=== PATIENT | male | born 1955 | race Caucasian/White ===

== ENCOUNTER 2017-07-21 14:12 | Emergency (ER) | payer OTHER ==
[2017-07-21 14:22] VITALS: TEMP 97.9; BMI 29.0
--- NOTE | 2017-07-21 16:39 | PDOC ---
History of Present Illness - General Chief Complaint: Wound Stated Complaint: Wound Infection Time Seen by Provider: 07/21/17 16:33 - History of Present Illness Initial Comments: 07/21/17 17:24 The patient is a 61 year old male with a history of HTN, asthma, DM, PVD, who presents for evaluation of an infected diabetic foot ulcer. The patient was referred from the wound clinic for admission for IV antibiotics. The patient reports having a non-healing ulcer for over 1 month on the bottom of his left foot for which he has been followed by the wound clinic. He has been on augmentin for treatment without improvement in his symptoms. He endorses subjective fevers and chills 1 day ago. He states that he received a call from the wound clinic telling him to present to the ED for admission today. He had a wound culture done on 07/07 which demonstrated MRSA. He denies SOB, chest pain , nausea, vomiting, abdominal pain, or changes with urination or bowel movements. Past History - Past Medical History Allergies/Adverse Reactions: Allergies Allergy/AdvReac Type Severity Reaction Status Date / Time No Known Allergies Allergy Verified 07/21/17 14:19 Home Medications: Ambulatory Orders Albuterol Sulfate Inhaler - [Ventolin HFA Inhaler -] 2 puff PO QID PRN 06/07/15 Aspirin [Aspirin EC] 81 mg PO DAILY 06/07/15 Enalapril Maleate [Vasotec -] 20 mg PO DAILY 06/07/15 Gemfibrozil 600 mg PO BID 06/07/15 Insulin Glargine,Hum.rec.anlog [Lantus (10mL VIAL) -] 40 unit SQ HS 06/07/15 Metformin HCl 1,000 mg PO BID 06/07/15 Salmeterol/Fluticasone [Advair 100Mcg/50Mcg -] 1 puff PO BID 06/07/15 Sertraline HCl 50 mg PO DAILY 06/07/15 Acetaminophen [Tylenol .Regular Strength -] 650 mg PO Q6H PRN #0 tablet Methadone [Dolophine -] 70 mg PO DAILY 01/30/16 Collagenase Clostridium Hist. [Santyl] 1 applic TP DAILY #90 oint...g. 01/22/17 Amox-Tr/K Cl [Augmentin - 875Mg Tablet] 1 tab PO BID #14 tablet 07/07/17 Amoxicillin/Potassium Clav [Augmentin 875-125 Tablet] 1 each PO DAILY #7 tablet MDD 1 07/14/17 Anemia: Yes Asthma: Yes Diabetes: Yes GI Disorders: Yes (hep c) HTN: Yes Hypercholesterolemia: Yes - Suicide/Smoking/Psychosocial Hx Smoking History: Former smoker Have you smoked in the past 12 months: No If you are a former smoker, when did you quit?: 1996 Information on smoking cessation initiated: No Hx Alcohol Use: No Drug/Substance Use Hx: No Substance Use Type: None Hx Substance Use Treatment: No Review of Systems - Review of Systems Comments:: 07/21/17 17:34 Constitutional: Fevers, Chills. No fatigue, malaise HEENT: No Rhinorrhea, nasal congestion, visual changes Cardiovascular: No chest pain, syncope, palpitations, lightheadedness Respiratory: No Cough, SOB, Hemoptysis, Gastrointestinal: No Abdominal pain, Nausea, Vomiting, Constipation, Diarrhea, Melena Genitourinary: No Dysuria, Frequency, Urgency, Hesitancy, Hematuria, Flank pain Musculoskeletal: No Myalgia, arthralgia Skin: No rashes, bruising, pallor Neurologic: No Headache, Dizziness, Numbness, Weakness, or Tingling *Physical Exam - Vital Signs Last Vital Signs Temp Pulse Resp BP Pulse Ox 97.9 F 102 H 18 148/99 99 07/21/17 14:18 07/21/17 14:18 07/21/17 14:18 07/21/17 14:18 07/21/17 14:18 - Physical Exam Comments: 07/21/17 17:34 General Appearance: Nourished. No Apparent Distress HEENT: EOMI, [place]. No Pharyngeal Erythema, Tonsillar Exudate, Tonsillar Erythema Neck: No Cervical Lymphadenopathy Respiratory/Chest: Lungs Clear, Normal Breath Sounds. No Crackles, Rales, Rhonchi, Wheezing Cardiovascular: Regular Rhythm, Regular Rate. No Murmur, Gallops, Rubs Gastrointestinal/Abdominal: Normal Bowel Sounds, Soft. No Guarding, Rebound, Tenderness Musculoskeletal: No CVA Tenderness Extremity: 2cm ulcer to the bottom of the left foot with purulent drainage. Normal Capillary Refill Integumentary: Normal Color, Dry, Warm Neurologic: Fully Oriented, Alert, Normal Mood/Affect, Normal Response, ED Treatment Course - LABORATORY CBC & Chemistry Diagram: 07/21/17 17:30 07/21/17 17:30 Medical Decision Making - Medical Decision Making 07/21/17 17:35 The patient is a 61 year old male with a history of HTN, asthma, DM, PVD, who presents for evaluation of an infected diabetic foot ulcer. Given his long disease course with a non-healing diabetic foot ulcer despite antibiotic treatment, we will obtain cbc, cmp, lactate, troponin, and blood cultures as well as a chest plain film to evaluate for worsening infection. We will consult with Dr. Nguyễn per wound clinic's request and proceed with admission for iv antibiotic treatment. The patient voiced understanding and is agreeable with the plan. We will continue to monitor and reassess. We discussed the case with Dr. Nguyễn who will provide his recommendations on antibiotic treatment. 07/21/17 19:33 We discussed the case with Dr. Jett who agreed to accept the patient for IV antibiotics. *DC/Admit/Observation/Transfer Diagnosis at time of Disposition: Infected open wound - Discharge Dispostion Condition at time of disposition: Guarded Admit: Yes
--- NOTE | 2017-07-21 16:55 | PDOC ---
Attending Attestation - Resident Resident Name: José Miguel Bauer - ED Attending Attestation I have performed the following: I have examined & evaluated the patient, The case was reviewed & discussed with the resident, I agree w/resident's findings & plan, Exceptions are as noted - HPI HPI: 07/21/17 16:50 61 yo diabetic male, failed outpatient therapy for infected foot, sent from wound clinic by Dr. Herbert for admission and he would like consult with Infectious Disease, Dr. Nguyễn - Physicial Exam PE: 07/21/17 16:52 VSS NAD 07/21/17 16:54 - Medical Decision Making 07/21/17 16:[address] Bauer Assessment and Plan 07/21/17 16:54
[2017-07-21 17:43] LABS: BASOPHIL 0.6 % (0-2.0); MCH 26.8 pg (25.7-33.7); MCHC 33.6 g/dl (32.0-35.9); MEAN CELL VOLUME 79.8 fl (80-96); MEAN PLT VOLUME 6.8 fl (7.5-11.1); NEUTROPHILS 55.9 % (42.8-82.8); PLATELET COUNT 441 K/MM3 (134-434); RDW 13.6 % (11.9-15.9); WHITE BLOOD COUNT 9.4 K/mm3 (4.0-10.0)
[2017-07-21 18:10] LABS: INR 1.24 (0.82-1.09)
[2017-07-21 18:13] LABS: ACTIVATED PTT 31.2 SECONDS (26.9-34.4)
[2017-07-21 18:18] LABS: ALBUMIN 2.5 g/dl (3.4-5.0); ALK PHOS 89 U/L (45-117); ANION GAP 9 (8-16); BILIRUBIN,TOTAL 0.2 mg/dL (0.2-1.0); CALCIUM 9.2 mg/dL (8.5-10.1); CO2 25 mmol/L (21-32); CPK 31 IU/L (39-308); GLUCOSE,RANDOM 285 mg/dL (74-106); SGOT/AST 12 U/L (15-37); SGPT/ALT 22 U/L (12-78); TOT PROT 7.9 g/dl (6.4-8.2)
[2017-07-21 18:20] LABS: TROPONIN I < 0.02 ng/ml (0.00-0.05)
[2017-07-21] MEDS ORDERED: ACETAMINOPHEN 325 MG TABLET (FP) PO PRN (19:34)
[2017-07-21] MEDS ORDERED: DOCUSATE SODIUM 100 MG CAPSULE (FP) PO PRN (19:34)
--- NOTE | 2017-07-21 19:34 | PN ---
Teaching Attending Note Name of Resident: Quinn Zafar ATTENDING PHYSICIAN STATEMENT I saw and evaluated the patient. I reviewed the resident's note and discussed the case with the resident. I agree with the resident's findings and plan as documented. SUBJECTIVE: 61 year old male with long standing history of non healing diabetic Left foot ulcer managed in wound care center , s/p recent debridement on 07/16 , s/p course of PO Augmentin now presents c/o pain in LLE. Pain is 7/10 and worse during ambulation. He was referred for hospitalization by system specialist. Prior medical records are reviewed and reveal recent imaging studies( ) of L foot suggestive of osteomyelitis 2nd metatarsal bone. Wound cultures are growing MRSA OBJECTIVE: Vital Signs Temperature 97.9 F 07/21/17 14:18 Pulse Rate 102 H 07/21/17 14:18 Respiratory Rate 18 07/21/17 14:18 Blood Pressure 148/99 07/21/17 14:18 O2 Sat by Pulse Oximetry (%) 99 07/21/17 14:18 2cm diameter ulcer on plantar aspect of left foot right below 3rd toe. No drainage Tenderness to palpation of Left foot R foot 5th toe amputated CBC, BMP 07/21/17 17:30 07/21/17 17:30 Home Medication List Medication Instructions Recorded Confirmed Type Albuterol Sulfate Inhaler - 2 puff PO QID PRN 06/07/15 07/09/17 History [Ventolin HFA Inhaler -] Aspirin [Aspirin EC] Augmentin 81 mg PO DAILY 06/07/15 07/09/17 History Enalapril Maleate [Vasotec -] 20 mg PO DAILY 06/07/15 07/09/17 History Gemfibrozil 600 mg PO BID 06/07/15 07/09/17 History Insulin Glargine,Hum.rec.anlog 40 unit SQ HS 06/07/15 07/09/17 History [Lantus (10mL VIAL) -] Metformin HCl 1,000 mg PO BID 06/07/15 07/09/17 History Salmeterol/Fluticasone [Advair 1 puff PO BID 06/07/15 07/09/17 History 100Mcg/50Mcg -] Sertraline HCl 50 mg PO DAILY 06/07/15 07/09/17 History Methadone [Dolophine -] 70 mg PO DAILY 01/30/16 07/09/17 History ASSESSMENT AND PLAN: 1. Left foot osteomyelitis 2/2 MRSA- failure of outpatient antibiotic therapy , need for parenteral regimen. - IV Vancomycin - PICC line ' - monitor renal function and adjust dose based on cr clearance - MRSA isolation - needs better DM control 2. Uncontrolled DM - - Start Lantus - insulin SS - calculate 24 insulin requirement and adjust the dose - diabetic diet 3. DVT PPX - heparin SC
[2017-07-21] MEDS ORDERED: SODIUM CHLORIDE 1,000 ML IV SCH (19:45)
[2017-07-21] MEDS ORDERED: VANCOMYCIN 1,250 MG in DEXTROSE 5%-WATER - 250 ML IVPB ONE (19:54)
[2017-07-21] MEDS ORDERED: ALBUTEROL SO4 18 GM HFA INHALER IH PRN (20:02)
[2017-07-21] MEDS ORDERED: PICC LINE 8 ML FLUSH PROTOCOL IVPUSH PRN (20:16)
[2017-07-21 20:47] LABS: URINE APPEARANCE SLCLOUDY; URINE BILIRUBIN NEGATIVE (NEGATIVE); URINE BLOOD 1+ (NEGATIVE); URINE COLOR YELLOW; URINE GLUCOSE (UA) NEGATIVE (NEGATIVE); URINE KETONE NEGATIVE (NEGATIVE); URINE NITRITE NEGATIVE (NEGATIVE); URINE UROBILINOGEN NEGATIVE mg/dL (0.2-1.0)
[2017-07-21 20:54] LABS: URINE PROTEIN 3+ (NEGATIVE)
[2017-07-21 21:17] LABS: URINE BACTERIA RARE /hpf (NONE SEEN); URINE HYALINE CAST 20 /lpf; URINE MUCUS RARE; URINE RBC 11 /hpf (0-3); URINE WBC 8 /hpf (3-5)
[2017-07-21] MEDS ORDERED: GEMFIBROZIL 600 MG TABLET (FP) PO SCH (22:00)
[2017-07-21] MEDS ORDERED: INSULIN DETEMIR 100 UNITS/ML MDV SQ SCH (22:00)
[2017-07-21] MEDS ORDERED: INSULIN GLARGINE HUM REC ANLOG 40 UNIT SQ SCH (22:00)
[2017-07-21] MEDS: FLUTICASONE/SALMETEROL 100 MCG/50 MCG DISKUS IH SCH (22:11)
[2017-07-21] MEDS: INSULIN SLIDING SCALE (NOVOLOG) 1 VIAL SQ SCH (22:12)
--- NOTE | 2017-07-21 22:20 | HP ---
CHIEF COMPLAINT:Sent from wound care clinic for osteomyelitis PCP:Cece Walden HISTORY OF PRESENT ILLNESS: 61M PMH of history of HTN, HLD, DM, PVD, and diabetic foot ulcer presents to the ED, sent from wound care clinic for osteomyelitis of his LLE. Patient has had a non healing ulcer on the plantar aspect of his LLE and has been treated with IV Abx by Dr. Nguyễn in the past. Patient was recently seen on 07/14/17 in podiatry clinic and had the wound debrided. He was then sent for an MRI of the LLE to evaluate the foot for osteomyelitis which was noted to be positive for osteomyeltitis in the second toe and possible the third toe as well. When the results were received by the clinic he was advised to come to the ER given the findings and the history of chills for IV Abx and PICC placement for termite control servicer Abx. The patient reports having a non-healing ulcer for over 1 month on the bottom of his left foot for which he has been followed by the wound clinic. He has been on augmentin for treatment without improvement in his symptoms. He endorses subjective fevers and chills 1 day ago. Per patient he had a Tmax of 100.1. He had a wound culture done on 07/07 which demonstrated MRSA. He denies SOB, chest pain, nausea, vomiting, abdominal pain, or changes with urination or bowel movements. He states he has not been following a diabetic diet and his blood sugars have not been well controlled. ER course was notable for: (1)Labs (2)Abx Recent Travel:Denies PAST MEDICAL HISTORY: Anemia Asthma PVD Diabetic foot ulcer Diabetes Hepatitis C treated with harvoni HTN HLD PAST SURGICAL HISTORY: Amputation right fifth toe Social History: Smoking:Former smoker quit over 20 years ago Alcohol:Denies Drugs: History of opioid abuse now on methadone Family History:Mother has asthma and HTN Allergies No Known Allergies Allergy (Verified 07/21/17 14:19) HOME MEDICATIONS: Home Medications Medication Instructions Recorded Albuterol Sulfate Inhaler - 2 puff PO QID PRN 06/07/15 [Ventolin HFA Inhaler -] Aspirin [Aspirin EC] 81 mg PO DAILY 06/07/15 Enalapril Maleate [Vasotec -] 20 mg PO DAILY 06/07/15 Gemfibrozil 600 mg PO BID 06/07/15 Insulin Glargine,Hum.rec.anlog 40 unit SQ HS 06/07/15 [Lantus (10mL VIAL) -] Metformin HCl 1,000 mg PO BID 06/07/15 Salmeterol/Fluticasone [Advair 1 puff PO BID 06/07/15 100Mcg/50Mcg -] Sertraline HCl 50 mg PO DAILY 06/07/15 Acetaminophen [Tylenol .Regular 650 mg PO Q6H PRN #0 tablet 06/14/15 Strength -] Methadone [Dolophine -] 70 mg PO DAILY 01/30/16 Collagenase Clostridium Hist. 1 applic TP DAILY #90 oint...g. 01/22/17 [Santyl] Amox-Tr/K Cl [Augmentin - 875Mg 1 tab PO BID #14 tablet 07/07/17 Tablet] Amoxicillin/Potassium Clav 1 each PO DAILY #7 tablet MDD 1 07/14/17 [Augmentin 875-125 Tablet] REVIEW OF SYSTEMS CONSTITUTIONAL: Absent: diaphoresis, generalized weakness, malaise, loss of appetite, weight change Present: fever, chills HEENT: Absent: rhinorrhea, nasal congestion, throat pain, throat swelling, difficulty swallowing, mouth swelling, ear pain, eye pain, visual changes CARDIOVASCULAR: Absent: chest pain, syncope, palpitations, irregular heart rate, lightheadedness , peripheral edema RESPIRATORY: Absent: cough, shortness of breath, dyspnea with exertion, orthopnea, wheezing, stridor, hemoptysis GASTROINTESTINAL: Absent: abdominal pain, abdominal distension, nausea, vomiting, diarrhea, constipation, melena, hematochezia GENITOURINARY: Absent: dysuria, frequency, urgency, hesitancy, hematuria, flank pain, genital pain MUSCULOSKELETAL: Absent: myalgia, arthralgia, joint swelling, back pain, neck pain SKIN: Absent: rash, itching, pallor Present: Chronic lower extremity wounds. HEMATOLOGIC/IMMUNOLOGIC: Absent: easy bleeding, easy bruising, lymphadenopathy, frequent infections ENDOCRINE: Absent: unexplained weight gain, unexplained weight loss, heat intolerance, cold intolerance NEUROLOGIC: Absent: headache, focal weakness or paresthesias, dizziness, unsteady gait, seizure, mental status changes, bladder or bowel incontinence PSYCHIATRIC: Absent: anxiety, depression, suicidal or homicidal ideation, hallucinations. PHYSICAL EXAMINATION Vital Signs - 24 hr 07/21/17 14:18 Temperature 97.9 F Pulse Rate 102 H Respiratory 18 Rate Blood Pressure 148/99 O2 Sat by Pulse 99 Oximetry (%) GENERAL: Awake, alert, and fully oriented, in no acute distress. HEAD: Normal with no signs of trauma. EARS, NOSE, THROAT: Moist mucous membranes. LUNGS: Breath sounds equal, clear to auscultation bilaterally. No wheezes, and no crackles HEART: Regular rate and rhythm, normal S1 and S2 without murmur ABDOMEN: Soft, nontender, not distended, normoactive bowel sounds, no guarding, no rebound MUSCULOSKELETAL: Normal range of motion at all joints. No CVA tenderness. UPPER EXTREMITIES: warm, well-perfused. No peripheral edema. LOWER EXTREMITIES: 1+ DP pulses, warm, Delayed capillary refill bilaterally well -perfused. No calf tenderness. Chronic venous stasis changes. On plantar surface of LLE there is a [id number] wound without induration fluctuance or erythema. No drainage NEUROLOGICAL: Cranial nerves II-XII intact. Normal speech PSYCHIATRIC: Cooperative. Good eye contact. Appropriate mood and affect. Laboratory Results - last 24 hr 07/21/17 07/21/17 07/21/17 17:30 17:30 17:30 WBC 9.4 RBC 4.77 Hgb 12.8 D Hct 38.1 MCV 79.8 L MCH 26.8 MCHC 33.6 RDW 13.6 Plt Count 441 H D MPV 6.8 L Neutrophils % 55.9 Lymphocytes % 36.4 D Monocytes % 5.1 Eosinophils % 2.0 Basophils % 0.6 PT with INR 14.00 H INR 1.24 H PTT (Actin FS) 31.2 Sodium 131 L Potassium 4.6 Chloride 97 L Carbon Dioxide 25 Anion Gap 9 BUN 24 H D Creatinine 1.0 D Creat Clearance w eGFR > 60 Random Glucose 285 H D Lactic Acid Calcium 9.2 Total Bilirubin 0.2 D AST 12 L D ALT 22 D Alkaline Phosphatase 89 D Creatine Kinase 31 L Troponin I < 0.02 D Total Protein 7.9 Albumin 2.5 L Urine Color Urine Appearance Urine pH Urine Protein Urine Glucose (UA) Urine Ketones Urine Blood Urine Nitrite Urine Bilirubin Urine Urobilinogen Urine RBC Urine WBC Ur Epithelial Cells Urine Bacteria Hyaline Casts Urine Mucus Blood Type Antibody Screen 07/21/17 07/21/17 07/21/17 17:30 17:30 20:22 WBC RBC Hgb Hct MCV MCH MCHC RDW Plt Count MPV Neutrophils % Lymphocytes % Monocytes % Eosinophils % Basophils % PT with INR INR PTT (Actin FS) Sodium Potassium Chloride Carbon Dioxide Anion Gap BUN Creatinine Creat Clearance w eGFR Random Glucose Lactic Acid 1.1 Calcium Total Bilirubin AST ALT Alkaline Phosphatase Creatine Kinase Troponin I Total Protein Albumin Urine Color Yellow Urine Appearance Slcloudy Urine pH 5.0 Urine Protein 3+ H Urine Glucose (UA) Negative Urine Ketones Negative Urine Blood 1+ H Urine Nitrite Negative Urine Bilirubin Negative Urine Urobilinogen Negative Urine RBC 11 Urine WBC 8 Ur Epithelial Cells Rare Urine Bacteria Rare Hyaline Casts 20 Urine Mucus Rare Blood Type A POSITIVE Antibody Screen Negative LEFT FOOT MRI: 1. Soft tissue edema of the second toe, open wound along the plantar aspect of the foot at the level of the second metatarsal phalangeal joint, and fluid along the plantar aspect of the second metatarsal head. 2. Bone marrow edema of the mid to distal second metatarsal, the proximal phalanx of the second toe , and the middle phalanx of the second toe. These findings in the setting of infection are most consistent with osteomyelitis. 3. Dorsal subluxation of the second toe proximal phalanx. 4. Question of faint bone marrow edema of the plantar aspect of the third metatarsal and proximal phalanx which is nonspecific however early osteomyelitis cannot be excluded. ASSESSMENT/PLAN: 61M with multiple medical problems presents to the ED from wound care clinic with osteomyelitis. Osteomyelitis/diabetic foot ulcer/PVD: with recent culture for MRSA ID consult IR consult for PICC Given Vancomycin in ED Consider podiatry and/or vascular consult Patient counselled that without diet and controlling his blood sugars he is at risk for complications such as but not limited to renal failure requiring dialysis, limb loss, visions loss DM: Insulin sliding scale Fingersticks ACHS hold metformin restart long acting Patient counselled that without diet and controlling his blood sugars he is at risk for complications such as but not limited to renal failure requiring dialysis, limb loss, visions loss History if anemia: Not currently active at this time outpatient follow up Hepatitis C: Treated with harvoni outpatient follow up HTN: restart lisinopril HLD: restart gemfibrozil Asthma: not currently active albuterol inhaler PRN History of opioid abuse: Continue methadone 70mg po daily FEN: No IVF no electrolyte abnormalities Diabetic diet PPx: HSQ/SCDs no GI PPx indicated ambulating Case discussed with attending Dr. Jett Visit type - Emergency Visit Emergency Visit: Yes Care time: The patient presented to the Emergency Department on the above date and was hospitalized for further evaluation of their emergent condition. - New Patient This patient is new to me today: Yes Date on this admission: 07/21/17 - Critical Care Critical Care patient: No
[2017-07-21 22:28] LABS: URINE LEUK ESTERASE Negative (NEGATIVE)
[2017-07-22 06:31] LABS: MCH 26.9 pg (25.7-33.7); MCHC 33.5 g/dl (32.0-35.9); MEAN CELL VOLUME 80.3 fl (80-96); MEAN PLT VOLUME 7.1 fl (7.5-11.1); PLATELET COUNT 353 K/MM3 (134-434); RDW 13.5 % (11.9-15.9); WHITE BLOOD COUNT 8.8 K/mm3 (4.0-10.0)
[2017-07-22] MEDS ORDERED: HEPARIN NA (PORCINE) 5,000 UNITS/ML 1ML VIAL ONE (06:38)
[2017-07-22 06:54] LABS: ALBUMIN 2.2 g/dl (3.4-5.0); ALK PHOS 71 U/L (45-117); ANION GAP 10 (8-16); BILIRUBIN,TOTAL 0.2 mg/dL (0.2-1.0); CALCIUM 8.6 mg/dL (8.5-10.1); CO2 27 mmol/L (21-32); GLUCOSE,RANDOM 190 mg/dL (74-106); MAGNESIUM 1.3 mg/dL (1.8-2.4); PHOSPHOROUS 4.3 mg/dL (2.5-4.9); SGOT/AST 13 U/L (15-37); SGPT/ALT 18 U/L (12-78); TOT PROT 6.6 g/dl (6.4-8.2)
[2017-07-22] MEDS: INSULIN SLIDING SCALE (NOVOLOG) 1 VIAL SQ SCH ×2 (06:55→12:52)
[2017-07-22] MEDS ORDERED: GEMFIBROZIL 600 MG TABLET (FP) PO SCH (07:00)
[2017-07-22] MEDS: HEPARIN NA (PORCINE) 5,000 UNITS/ML 1ML VIAL SQ SCH ×2 (07:03→14:17)
[2017-07-22] MEDS ORDERED: METHADONE HCL 40 MG DISPERSABLE TABLET PO SCH (10:00)
[2017-07-22] MEDS ORDERED: ENALAPRIL MALEATE 10 MG TABLET (FP) PO SCH (10:00)
[2017-07-22] MEDS ORDERED: SERTRALINE HCL 25 MG TABLET (FP) PO SCH (10:00)
[2017-07-22] MEDS ORDERED: ASPIRIN COATED 81 MG TABLET.EC PO SCH (10:00)
[2017-07-22] MEDS ORDERED: COLLAGENASE CLOSTRIDIUM HIST. 30 GRAMS TUBE TP SCH (10:00)
[2017-07-22] MEDS ORDERED: PATIENT'S OWN MEDICATION (NON-FORMULARY) (Enalapril Maleate [Vasotec -] 20 MG) PO SCH (10:00)
[2017-07-22] MEDS: FLUTICASONE/SALMETEROL 100 MCG/50 MCG DISKUS IH SCH (12:53)
--- NOTE | 2017-07-22 12:57 | DS ---
Physical Exam: SUBJECTIVE: Patient seen and examined at bedside. He denies any fever, chills, N /V/D/C. OBJECTIVE: Vital Signs Period Temp Pulse Resp BP Sys/Andre Pulse Ox Last 24 Hr 97.9 F 81-89 18-20 127-136/77-82 96-99 PHYSICAL EXAM GENERAL: The patient is awake, alert, and fully oriented, in no acute distress. HEAD: Normal with no signs of trauma. EYES: PERRL, extraocular movements intact, sclera anicteric, conjunctiva clear. ENT: Ears normal, nares patent, oropharynx clear without exudates, moist mucous membranes. NECK: Trachea midline, full range of motion, supple. LUNGS: Breath sounds equal, clear to auscultation bilaterally, no wheezes, no crackles, no accessory muscle use. HEART: Regular rate and rhythm, S1, S2 without murmur, rub or gallop. ABDOMEN: Soft, nontender, nondistended, normoactive bowel sounds, no guarding, no rebound, no hepatosplenomegaly, no masses. EXTREMITIES: warm, well-perfused, no edema. Diabetic callus ulcer on the bottom of left foot, with second toe amputation. NEUROLOGICAL: good mentation, SKIN: Warm, dry, no rashes or lesions noted. LABS Laboratory Results - last 24 hr 07/21/17 07/22/17 07/22/17 20:22 05:35 05:35 WBC 8.8 RBC 4.27 Hgb 11.5 L D Hct 34.3 L MCV 80.3 MCH 26.9 MCHC 33.5 RDW 13.5 Plt Count 353 MPV 7.1 L Sodium 136 Potassium 4.4 Chloride 99 Carbon Dioxide 27 Anion Gap 10 BUN 25 H Creatinine 1.0 Creat Clearance w eGFR > 60 POC Glucometer Random Glucose 190 H D Calcium 8.6 Phosphorus 4.3 D Magnesium 1.3 L D Total Bilirubin 0.2 AST 13 L ALT 18 Alkaline Phosphatase 71 D Total Protein 6.6 Albumin 2.2 L Urine Color Yellow Urine Appearance Slcloudy Urine pH 5.0 Ur Specific [place] 1.025 Urine Protein 3+ H Urine Glucose (UA) Negative Urine Ketones Negative Urine Blood 1+ H Urine Nitrite Negative Urine Bilirubin Negative Urine Urobilinogen Negative Ur Leukocyte Esterase Negative Urine RBC 11 Urine WBC 8 Ur Epithelial Cells Rare Urine Bacteria Rare Hyaline Casts 20 Urine Mucus Rare 07/22/17 06:45 WBC RBC Hgb Hct MCV MCH MCHC RDW Plt Count MPV Sodium Potassium Chloride Carbon Dioxide Anion Gap BUN Creatinine Creat Clearance w eGFR POC Glucometer [phone] Random Glucose Calcium Phosphorus Magnesium Total Bilirubin AST ALT Alkaline Phosphatase Total Protein Albumin Urine Color Urine Appearance Urine pH Ur Specific [place] Urine Protein Urine Glucose (UA) Urine Ketones Urine Blood Urine Nitrite Urine Bilirubin Urine Urobilinogen Ur Leukocyte Esterase Urine RBC Urine WBC Ur Epithelial Cells Urine Bacteria Hyaline Casts Urine Mucus HOSPITAL COURSE: Date of Admission:07/21/17 Date of Discharge: 07/22/17 61M with multiple medical problems presents to the ED from wound care clinic with osteomyelitis. #Left foot osteomyelitis 2/2 MRSA- failure of outpatient antibiotic therapy , need for parenteral regimen. - IV Vancomycin - PICC line ' - monitor renal function and adjust dose based on cr clearance - MRSA isolation - needs better DM control # Uncontrolled DM - - Start Lantus - insulin SS - calculate 24 insulin requirement and adjust the dose - diabetic diet # DVT PPX - heparin SC Minutes to complete discharge: 30 Discharge Summary Reason For Visit: INFECTED OPEN WOUND Current Active Problems Infected open wound (Acute) Condition: Stable - Instructions Diet, Activity, Other Instructions: You have been admitted to the hospital due to foot diabetic ulcer after failed treatment as out patient . You might develop an infection in the bone You have been treated with intravenous antibiotic her inpatient . PICC line has been placed, you will be discharged home. you will come to the infusion center to receive the intravenous antibiotics as prescribed 5 weeks total. Please follow with your primary care physician within a week. You will need weekly lab draws while on iv antibiotics. CBC/BMP/ESR/CRP Please follow with infectious disease doctor Sarkis within a week. Please follow up with your specification manager within a week. Please keep the ulcer dry and clean. Please avoid any pressure or weight bearing on the ulcer. Please follow strict diabetic diet. Please take your diabetes medicine as prescribed to avoid any further complication. Please if you develop any fever, chills , or your symptoms worsen you can return to emergency room. Referrals: Ralph Nguyễn MD [Staff Physician] - Thomas Stoddard MD [Primary Care Provider] - 1 Week Disposition: HOME - Home Medications Comprehensive Discharge Medication List: Ambulatory Orders Albuterol Sulfate Inhaler - [Ventolin HFA Inhaler -] 2 puff PO QID PRN 06/07/15 Aspirin [Aspirin EC] 81 mg PO DAILY 06/07/15 Enalapril Maleate [Vasotec -] 20 mg PO DAILY 06/07/15 Gemfibrozil 600 mg PO BID 06/07/15 Insulin Glargine,Hum.rec.anlog [Lantus (10mL VIAL) -] 40 unit SQ HS 06/07/15 Metformin HCl 1,000 mg PO BID 06/07/15 Salmeterol/Fluticasone [Advair 100Mcg/50Mcg -] 1 puff PO BID 06/07/15 Sertraline HCl 50 mg PO DAILY 06/07/15 Acetaminophen [Tylenol .Regular Strength -] 650 mg PO Q6H PRN #0 tablet Methadone [Dolophine -] 70 mg PO DAILY 01/30/16 Collagenase Clostridium Hist. [Santyl] 1 applic TP DAILY #90 oint...g. 01/22/17 Amox-Tr/K Cl [Augmentin - 875Mg Tablet] 1 tab PO BID #14 tablet 07/07/17 Amoxicillin/Potassium Clav [Augmentin 875-125 Tablet] 1 each PO DAILY #7 tablet MDD 1 07/14/17 This patient is new to me today: Yes Date on this admission: 07/22/17 Emergency Visit: Yes ED Registration Date: 07/21/17 Care time: The patient presented to the Emergency Department on the above date and was hospitalized for further evaluation of their emergent condition. Critical Care patient: No - Discharge Referral Referred to [facility] No
--- NOTE | 2017-07-22 13:06 | EKG ---
Test Reason : Blood Pressure : / mmHG Vent. Rate : 075 BPM Atrial Rate : 075 BPM P-R Int : 156 ms QRS Dur : 074 ms QT Int : 390 ms P-R-T Axes : 062 027 059 degrees QTc Int : 435 ms NORMAL SINUS RHYTHM NORMAL ECG WHEN COMPARED WITH ECG OF 30-JAN-2016 15:17, NO SIGNIFICANT CHANGE WAS FOUND Confirmed by OTIS PEREZ MD ([id number]) on 07/22/2017 1:05:37 PM Referred By: Confirmed By:OTIS PEREZ MD
[2017-07-22] MEDS ORDERED: VANCOMYCIN 1 GRAM (PRE-DOCKED) 500 ML IVPB ONE (13:27)
--- NOTE | 2017-07-22 13:28 | CON.ID ---
Consult Consult Specialty:: infectious diseases Reason for Consultation:: osteo mrsa ofthe lt foot - History of Present Illness History of Present Illness: 61M PMH of history of HTN, HLD, DM, PVD, and diabetic foot ulcer presents to the ED, sent from wound care clinic for osteomyelitis of his LLE. Patient has had a non healing ulcer on the plantar aspect of his LLE and has been treated with IV Abx in the past. Patient was recently seen on 07/14/17 in podiatry clinic and had the wound debrided. He was then sent for an MRI of the LLE to evaluate the foot for osteomyelitis which was noted to be positive for osteomyeltitis in the second toe and possible the third toe as well. patient had cx done which shows mrsa - History Source History Provided By: Patient Limitations to Obtaining History: No Limitations - Past Medical History Cardio/Vascular: Yes: HTN Pulmonary: Yes: Asthma Psych: Yes: Depression Endocrine: Yes: Diabetes Mellitus Dermatology: Yes: Other (varicose veins) - Alcohol/Substance Use Hx Alcohol Use: No History of Substance Use: reports: None - Smoking History Smoking history: Former smoker Have you smoked in the past 12 months: No If you are a former smoker, when did you quit?: 1996 - Social History ADL: Independent History of Recent Travel: Yes (to [place] in past 2 weeks ) Home Medications - Allergies Allergies/Adverse Reactions: Allergies Allergy/AdvReac Type Severity Reaction Status Date / Time No Known Allergies Allergy Verified 07/21/17 14:19 - Home Medications Home Medications: Ambulatory Orders Albuterol Sulfate Inhaler - [Ventolin HFA Inhaler -] 2 puff PO QID PRN 06/07/15 Aspirin [Aspirin EC] 81 mg PO DAILY 06/07/15 Enalapril Maleate [Vasotec -] 20 mg PO DAILY 06/07/15 Gemfibrozil 600 mg PO BID 06/07/15 Insulin Glargine,Hum.rec.anlog [Lantus (10mL VIAL) -] 40 unit SQ HS 06/07/15 Metformin HCl 1,000 mg PO BID 06/07/15 Salmeterol/Fluticasone [Advair 100Mcg/50Mcg -] 1 puff PO BID 06/07/15 Sertraline HCl 50 mg PO DAILY 06/07/15 Acetaminophen [Tylenol .Regular Strength -] 650 mg PO Q6H PRN #0 tablet Methadone [Dolophine -] 70 mg PO DAILY 01/30/16 Collagenase Clostridium Hist. [Santyl] 1 applic TP DAILY #90 oint...g. 01/22/17 Gemfibrozil [Lopid -] 600 mg PO BIDAC #30 tablet 07/22/17 Family Disease History - Family Disease History Family Disease History: Other: Mother (asthma ) Review of Systems - Review of Systems Constitutional: reports: Chills HENT: reports: No Symptoms Neck: reports: No Symptoms Cardiovascular: reports: No Symptoms Respiratory: reports: No Symptoms Gastrointestinal: reports: No Symptoms Genitourinary: reports: No Symptoms Musculoskeletal: reports: No Symptoms Integumentary: reports: Change in Color Neurological: reports: No Symptoms Endocrine: reports: No Symptoms Hematology/Lymphatic: reports: No Symptoms Physical Exam Vital Signs: Vital Signs Temperature 97.9 F 07/22/17 10:20 Pulse Rate 81 07/22/17 10:20 Respiratory Rate 18 07/22/17 10:20 Blood Pressure 127/77 07/22/17 10:20 O2 Sat by Pulse Oximetry (%) 96 07/22/17 10:20 Constitutional: Yes: Well Nourished, No Distress, Calm Cardiovascular: Yes: Regular Rate and Rhythm Respiratory: Yes: Regular, CTA Bilaterally Gastrointestinal: Yes: Normal Bowel Sounds, Soft Musculoskeletal: Yes: WNL Extremities: Yes: Other Wound/Incision: Yes: Dressing Dry and Intact, Other (i have seen the wound) Neurological: Yes: Alert, Oriented Labs: CBC, BMP 07/22/17 05:35 07/22/17 05:35 Imaging - Results Chest X-ray: Report Reviewed, Image Reviewed MRI: Report Reviewed, Image Reviewed Assessment/Plan mrsa wound osteo dm non healing ulcer of the foot plan will need abx for 5 weeks at least will start on vanco all cx still pending as patient being discharged follow his cx ask patient to do crp and esr weekly with cbc and bmp weekly
[2017-07-22] MEDS ORDERED: VANCOMYCIN 1,250 MG in DEXTROSE 5%-WATER - 250 ML IVPB ONE (14:16)
--- NOTE | 2017-07-22 14:43 | PN ---
Teaching Attending Note Name of Resident: Jarocho Vaca ATTENDING PHYSICIAN STATEMENT I saw and evaluated the patient. I reviewed the resident's note and discussed the case with the resident. I agree with the resident's findings and plan as documented. SUBJECTIVE:states pain is controlled with pain medication. denies Cp, SOB, fever , chills, N/V/C/D OBJECTIVE: Last Vital Signs Temp Pulse Resp BP Pulse Ox 97.9 F 81 18 127/77 96 07/22/17 10:20 07/22/17 10:20 07/22/17 10:20 07/22/17 10:20 07/22/17 10:20 General NAD CV S1 S2 RRR ni murmur/rub/gallop Lungs CTA B/L no wheezing/rales/rhonchi ASSESSMENT AND PLAN: 61yo M with PMH HTN. dyslipidemia, DM, opiate dependence, PVD, and diabetic foot ulcer which now appears to be OM. was sent to ER for PICC line insertion for retirement ABx. 1. Left foot OM- +MRSA. PICC line inserted for Vanco 1.25g x5 weeks. will need weekly CBC, BMP, ESR and CRP to be monitored while on abx therapy. follow up with ID and podiatry for further management. will d/c home.
[2017-07-22 15:56] VITALS: BP 122/61; PULSE 87
== END 2017-07-22 15:56 | disposition home or self-care (01) ==
LOC: JER 14:12 → SUPCPDRO 14:12 → UNDOADMIN 19:34 → JERBED 19:34
DX: E11.621 Type 2 diabetes mellitus with foot ulcer (principal); Z79.4 Long term (current) use of insulin; Z79.84 Long term (current) use of oral hypoglycemic drugs; B95.62 Methicillin resistant Staphylococcus aureus infection as the cause of diseases classified elsewhere; I10 Essential (primary) hypertension; E78.00 Pure hypercholesterolemia, unspecified; I73.9 Peripheral vascular disease, unspecified; F32.9 Major depressive disorder, single episode, unspecified
CPT/HCPCS: 36415; 36569; 71010-TC; 77001-TC; 80053; 81003; 81015; 82550; 83036; 83605; 83735; 84100; 84484; 85025; 85027; 85610; 85651; 85730; 86140; 86850; 86900; 86901; 87040; 87086; 93005; 93010; 99285-25; C1751; J1644

== ENCOUNTER 2018-07-20 10:53 | Inpatient (IN) | payer OTHER ==
[2018-07-20 11:00] VITALS: BMI 31.6
--- NOTE | 2018-07-20 11:46 | PDOC ---
History of Present Illness <Jhoana Shaysy - Last Filed: 07/20/18 15:39> - History of Present Illness Initial Comments: 07/20/18 12:21 The patient is a 62 year old male with a significant PMH of HTN, HLD, DM, diabetic foot ulcer, PVD, HepC s/p harvoni, and previous opioid abuse on methadone who presents to the emergency department with chest pain a/w left arm and left leg numbness since 6PM last night. Patient reports he was watching tv prior to the sudden onset of his symptoms. Patient describes the chest pain as left sided with associated left leg and arm numbness. Patient states the chest pain was at its worst last night and feels it is still there but has improved since last night. Patient is on albuterol for a recent cold and was taking his albuterol last night at 9PM when he also noticed palpitations and subsequently stopped taking his treatment. Patient decided to take his zoloft last night prior to going to sleep. Patient states his drove him to a clinic in the [place] to get his methadone and noticed persistent chest pain prompting him to come to the ER for further evaluation. Patient denies any recent travel. The patient denies shortness of breath, headache and dizziness. Denies fever, chills, nausea, vomit, diarrhea and constipation. Denies dysuria, frequency, urgency and hematuria. Allergies: NKA Past surgical history: None reported. Social history: Currently on methadone. No reported alcohol or cigarette use. PCP: Dr. Walden at [facility] <Alem Ewing - Last Filed: 07/20/18 16:10> - General Chief Complaint: Chest Pain Stated Complaint: CHEST PAIN Time Seen by Provider: 07/20/18 11:21 NIH Stroke Scale - Last Known Well Date/Time & Onset Date Last Known Well: 07/19/18 Time Last Known Well: 18:00 - Initial Evaluation Level of consciousness: Alert Ask patient the month and their age: Answers both correctly Ask patient to open & close eyes; make fist and let go: Obeys both correctly Best gaze (horizontal eye movement): Normal Visual field testing: No visual field loss Facial paresis (Show teeth/raise eyebrows/close eyes tight): Normal symmetrical movement Motor Function: Left Arm: Normal Motor Function: Right Arm: Normal (extends arm 90 (or 45) degrees for 10 seconds without drift Motor Function: Left Leg: Normal (extends leg 30 degrees for 5 seconds without drift) Motor Function: Right Leg: Normal (extends leg 30 degrees for 5 seconds without drift) Limb Ataxia: No ataxia Sensory(Use pinprick test arms,legs,trunk,face/side to side): Mild to moderate decrease in sensation Best language (Describe picture, name items, read sentences): No Aphasia Dysarthria (read several words): Normal articulation Extinction and Inattention: No abnormality - Total Score NIH Stroke Scale Score: 1 <Alem Ewing - Last Filed: 07/20/18 16:10> Past History <Yesi Shay - Last Filed: 07/20/18 15:39> - Past Medical History Anemia: Yes Asthma: Yes COPD: Yes Diabetes: Yes GI Disorders: Yes (hep c) HTN: Yes Hypercholesterolemia: Yes - Suicide/Smoking/Psychosocial Hx Smoking History: Former smoker Have you smoked in the past 12 months: No If you are a former smoker, when did you quit?: 1996 Information on smoking cessation initiated: No Hx Alcohol Use: No Drug/Substance Use Hx: No Substance Use Type: None Hx Substance Use Treatment: No <Alem Ewing - Last Filed: 07/20/18 16:10> - Past Medical History Allergies/Adverse Reactions: Allergies Allergy/AdvReac Type Severity Reaction Status Date / Time No Known Allergies Allergy Verified 07/21/17 14:19 Home Medications: Ambulatory Orders Albuterol Sulfate Inhaler - [Ventolin HFA Inhaler -] 2 puff PO QID PRN 06/07/15 Aspirin [Aspirin EC] 81 mg PO DAILY 06/07/15 Enalapril Maleate [Vasotec -] 20 mg PO DAILY 06/07/15 Insulin Glargine,Hum.rec.anlog [Lantus (10mL VIAL) -] 40 unit SQ HS 06/07/15 Salmeterol/Fluticasone [Advair 100Mcg/50Mcg -] 1 puff PO BID 06/07/15 Sertraline HCl 50 mg PO DAILY 06/07/15 metFORMIN HCL [Metformin HCl] 1,000 mg PO BID 06/07/15 Acetaminophen [Tylenol .Regular Strength -] 650 mg PO Q6H PRN #0 tablet Methadone [Dolophine -] 70 mg PO DAILY 01/30/16 Review of Systems - Review of Systems Comments:: 07/20/18 12:23 GENERAL/CONSTITUTIONAL: No fever or chills. No weakness. (+) Body shakes HEAD, EYES, EARS, NOSE AND THROAT: No change in vision. No ear pain or discharge. No sore throat. GASTROINTESTINAL: No nausea, vomiting, diarrhea or constipation. GENITOURINARY: No dysuria, frequency, or change in urination. CARDIOVASCULAR: (+) Chest pain. No shortness of breath. RESPIRATORY: No cough, wheezing, or hemoptysis. MUSCULOSKELETAL: No joint or muscle swelling or pain. No neck or back pain. SKIN: No rash NEUROLOGIC: No headache, vertigo, loss of consciousness. (+) Left leg numbness. (+) Left arm numbness. ENDOCRINE: No increased thirst. No abnormal weight change. HEMATOLOGIC/LYMPHATIC: No anemia, easy bleeding, or history of blood clots. ALLERGIC/IMMUNOLOGIC: No hives or skin allergy. <Alem Ewing - Last Filed: 07/20/18 16:10> *Physical Exam - Vital Signs Last Vital Signs Temp Pulse Resp BP Pulse Ox 97.9 F 92 H 20 188/123 H 95 07/20/18 10:59 07/20/18 11:45 07/20/18 11:45 07/20/18 11:45 07/20/18 11:45 <Yesi Shay - Last Filed: 07/20/18 15:39> - Vital Signs Last Vital Signs Temp Pulse Resp BP Pulse Ox 97.9 F 112 H 18 227/110 H 94 L 07/20/18 10:59 07/20/18 10:59 07/20/18 10:59 07/20/18 10:59 07/20/18 10:59 - Physical Exam Comments: 07/20/18 12:23 "GENERAL: Awake, alert, and fully oriented, in no acute distress HEAD: No signs of trauma EYES: pinpoint pupils, sclera anicteric, conjunctiva clear ENT: Auricles normal inspection, hearing grossly normal, nares patent, oropharynx clear without exudates. Moist mucosa NECK: Normal ROM, supple, no lymphadenopathy, JVD, or masses LUNGS: Breath sounds equal, clear to auscultation bilaterally. No wheezes, and no crackles HEART: Regular rate and rhythm, normal S1 and S2, no murmurs, rubs or gallops ABDOMEN: Soft, nontender, normoactive bowel sounds. No guarding, no rebound. No masses EXTREMITIES: Normal range of motion, no edema. No clubbing or cyanosis. No cords , erythema, or tenderness. Pulses equal b/l BACK: No midline spinal tenderness in cervical/thoracic/lumbar region NEUROLOGICAL: Normal speech, cranial nerves intact, negative pronator drift, 5/ 5 strength in all 4 extremities, decreased sensation to light touch in LLE, normal cerebellar exam, normal gait, normal reflexes and tone SKIN: Warm, Dry, normal turgor, no rashes or lesions noted. <Alem Ewing - Last Filed: 07/20/18 16:10> Heart Score/ECG Review - History History: Moderately suspicious - Electrocardiogram EKG: Significant ST-depression - Age Age: 45-65 - Risk Factors Based on the list above the patient has:: >/=3 risk factors or Hx atherosclerotic disease - Troponin Troponin: 1-3x normal limit - Score Heart Score - Total: 7 #1 07/20/18 12:28 Twelve-lead EKG was performed and reviewed by me. Normal sinus rhythm, rate 93. Normal axis and intervals. Diffuse sub1mm - 1mm STD in leads II, III, avfm V3- V6. Changes are new compared to EKG 01/30/16 #2 07/20/18 12:34 Twelve-lead EKG was performed and reviewed by me. Posterior lead EKG. Sinus tachycardia, rate 105. Normal axis. Posterior leads with no MOOKIE. OTherwise, unchanged EKG compared to prior today. <Alem Ewing - Last Filed: 07/20/18 16:10> ED Treatment Course - LABORATORY CBC & Chemistry Diagram: 07/20/18 11:48 07/20/18 11:48 - ADDITIONAL ORDERS Additional order review: Laboratory Results 07/20/18 07/20/18 11:48 11:48 PT with INR 12.50 INR 1.06 PTT (Actin FS) 32.4 Sodium 131 L Potassium 4.4 Chloride 99 Carbon Dioxide 26 Anion Gap 6 L BUN 28 H Creatinine 1.7 H Creat Clearance w eGFR 40.78 Random Glucose 234 H Calcium 10.2 H Magnesium 1.5 L Total Bilirubin 0.3 AST 13 L ALT 16 Alkaline Phosphatase 87 Troponin I 0.06 H B-Natriuretic Peptide 2540.4 H Total Protein 7.0 Albumin 3.1 L Lipase 290 07/20/18 11:48 RBC 5.02 MCV 82.5 MCHC 32.5 RDW 14.0 MPV 7.2 L Neutrophils % 82.9 H D Lymphocytes % 13.4 D Monocytes % 2.5 L Eosinophils % 0.8 Basophils % 0.4 <Yesi Shay - Last Filed: 07/20/18 15:39> - LABORATORY CBC & Chemistry Diagram: 07/20/18 11:48 07/20/18 11:48 - RADIOLOGY Radiology Studies Ordered: Category Date Time Status ABDOMEN CTA W/WO CONTRAST [CT] Stat CT Scan 07/20/18 11:45 Ordered CHEST CTA [CT] Stat CT Scan 07/20/18 11:45 Ordered CHEST X-RAY PORTABLE* [RAD] Stat Radiology 07/20/18 11:43 Ordered <Alem Ewing - Last Filed: 07/20/18 16:10> Medical Decision Making - Medical Decision Making 07/20/18 11:58 Imaging: Portable Chest XR Reported by: Dr. Cerda Impression: No evidence of active pulmonary disease. 07/20/18 12:45 Paged [facility]. Pending call back. 07/20/18 12:52 Case d/w Dr. Swan, caul dresser. 07/20/18 14:32 Imaging: Head CT Reported by: Dr. Kumari Impression: Mild volume loss which is nonspecific. No acute intracranial pathology is identified. 07/20/18 15:20 Imaging: Chest and Abdomen CTA Impression: Thoracoabdominal aorta demonstrates no CT evidence of dissection or aneurysm. Multiple osteolytic lesions are noted suggestive of metastatic neoplastic disease (vs possible multiple myeloma). In comparison to a [address] study interval development of a small focus of minimal to mild interstitial thickening is seen within the left upper lobe medically which is probably chronic, less likely representing a very small acute interstitial infiltrate. Centrilobular emphysema. Several mildly enlarged nonspecific mediastinal lymph nodes are seen which appear to be slightly increased in size in comparison to 2015 CT study--? Hyperplastic etiology and probably less likely on the basis of neoplastic disease Small stable bilateral adrenal adenomas. <Yesi Shay - Last Filed: 07/20/18 15:39> - Medical Decision Making 07/20/18 12:41 62-year-old male with multiple medical problems including hypertension, peripheral vascular disease presents emergency Department with sudden onset CP a /w decreased sensation to the LUE and LLE concerning for aortic dissection. Pt taken to CTA prior to labs, study on my read negative for dissection. DDx also includes CVA vs HTN emergency given elevated BP on arrival vs ACS. Thus far, trop leak of 0.06 noted wtih BNP elevation. Plan -cardiac cath lab manager -CT -labs -cards c/s -admit 07/20/18 15:33 CTA dissection negative but possible new malignancy Department Secretary 1.7, calcium corrected ~11 -> possibly multiple myeloma Pt ordered for NS 500cc trop 0.6->0.7, CK negative. Discussed with Dr. Swan who saw pt. Unlikely cardiac, will give ASA 325mg and hold off on heparin/plavix given possible malignancy CTH neg Case discussed with Dr. Lindsey, pt accepted for admission to Dr. Garcia tele Case discussed in detail with admitting physician including history, physical exam and ancillary studies. Admitting physician has assumed care for the patient, will follow all pending diagnostics and will complete the evaluation and treatment. <Alem Ewing - Last Filed: 07/20/18 16:10> *DC/Admit/Observation/Transfer - Attestations Scribe Attestion: 07/20/18 15:40 Documentation prepared by Yeis Shay, acting as medical physics researcher for Alem Ewing MD. <Yesi Shay - Last Filed: 07/20/18 15:39> - Discharge Dispostion Decision to Admit order: Yes - Attestations Physician Attestion: 07/20/18 15:38 I, Dr. Alem Ewing MD, attest that this document has been prepared under my direction and personally reviewed by me in its entirety. I further attest, that it accurately reflects all work, treatment, procedures and medical decision -making performed by me. <Alem Ewing - Last Filed: 07/20/18 16:10> Diagnosis at time of Disposition: Malignancy, Chest pain, Left sided numbness, DARIO (acute kidney injury) - Discharge Dispostion Condition at time of disposition: Stable
[2018-07-20 12:01] LABS: BASO % 0.4 % (0-2.0); EOS % 0.8 % (0-4.5); HEMATOCRIT 41.4 % (35.4-49); HEMOGLOBIN 13.4 GM/dL (11.7-16.9); LYMPH % 13.4 % (8-40); MCH 26.8 pg (25.7-33.7); MCHC 32.5 g/dl (32.0-35.9); MEAN CELL VOLUME 82.5 fl (80-96); MEAN PLT VOLUME 7.2 fl (7.5-11.1); MONO % 2.5 % (3.8-10.2); NEUT % 82.9 % (42.8-82.8); PLATELET COUNT 287 K/MM3 (134-434); RBC 5.02 M/mm3 (4.00-5.60); WHITE BLOOD COUNT 9.9 K/mm3 (4.0-10.0)
[2018-07-20 12:27] LABS: ALBUMIN 3.1 g/dl (3.4-5.0); ALK PHOS 87 U/L (45-117); ANION GAP 6 MMOL/L (8-16); BILIRUBIN,TOTAL 0.3 mg/dL (0.2-1); BLOOD UREA NITROGEN 28 mg/dL (7-18); CALCIUM 10.2 mg/dL (8.5-10.1); CHLORIDE 99 mmol/L (98-107); CO2 26 mmol/L (21-32); CREATININE 1.7 mg/dL (0.55-1.3); GLUCOSE,RANDOM 234 mg/dL (74-106); INR 1.06 (0.83-1.09); LIPASE 290 U/L (73-393); MAGNESIUM 1.5 mg/dL (1.8-2.4); N-TERMINAL BNP 2540.4 pg/ml (5-125); POTASSIUM 4.4 mmol/L (3.5-5.1); PROTHROMBIN TIME (PATIENT) 12.5 SEC (9.7-13.0); SGOT/AST 13 U/L (15-37); SGPT/ALT 16 U/L (13-61); SODIUM 131 mmol/L (136-145)
[2018-07-20 12:30] LABS: ACTIVATED PTT 32.4 SECONDS (25.2-36.5)
--- NOTE | 2018-07-20 13:00 | EKG ---
Test Reason : Blood Pressure : / mmHG Vent. Rate : 093 BPM Atrial Rate : 093 BPM P-R Int : 168 ms QRS Dur : 078 ms QT Int : 350 ms P-R-T Axes : 068 026 082 degrees QTc Int : 435 ms NORMAL SINUS RHYTHM ST depression, consider subendocardial injury NONSPECIFIC T WAVE ABNORMALITY ABNORMAL ECG WHEN COMPARED WITH ECG OF 21-JUL-2017 17:16, ST NOW DEPRESSED IN ANTERIOR LEADS NONSPECIFIC T WAVE ABNORMALITY, WORSE IN ANTEROLATERAL LEADS Confirmed by BERTA SMITH, ANTHONY ([id number]) on 07/20/2018 1:00:07 PM Referred By: Confirmed By:ANTHONY HAMPTON MD
[2018-07-20 13:02] LABS: URINE APPEARANCE CLEAR; URINE BILIRUBIN NEGATIVE (<2.0 mg/dL); URINE COLOR STRAW; URINE GLUCOSE (UA) 1+ (NEGATIVE); URINE KETONE NEGATIVE (NEGATIVE); URINE LEUK ESTERASE NEGATIVE (NEGATIVE); URINE NITRITE NEGATIVE (NEGATIVE); URINE PROTEIN 2+ (NEGATIVE); URINE UROBILINOGEN NEGATIVE mg/dL (0.2-1.0)
--- NOTE | 2018-07-20 15:07 | CON.CARD ---
Consult Consult Specialty:: Cardiology Referred by:: ER Reason for Consultation:: Chest pain, htn urgency, elevated trop - History of Present Illness Chief Complaint: chest pain, L sided numbness weakeness, palpitations History of Present Illness: 62 year old man pmh HTN, HLD, DMII, PAD diabetic foot ulcer, PVD, HCV s/p harvoni, h/o opiod abuse on methadone admitted with chest pain, L arm L leg numbness and weakness, palpitations, headache found to have severely uncontrolled HTN, mildly elevated troponin, elevated creatinine, ekg c/w ischemia. Pt seen and examined in the ER in [place]. currently only c/o headache. states yesterday throughout the day he had intermittent chills and body shakes then yesterday evening while having chills felt sudden onset severe substernal chest pain with associated palpitations and L arm/L leg numbness and weakness. this ocurred again at 4am and thus he came to the ER. States his left sided weakness has resolved but still feels numb. no further chest pain or palpitations. - History Source History Provided By: Patient, Medical Record Limitations to Obtaining History: No Limitations - Past Medical History Cardio/Vascular: Yes: HTN, Hyperlipdemia Pulmonary: Yes: Asthma Psych: Yes: Depression Endocrine: Yes: Diabetes Mellitus Dermatology: Yes: Other (varicose veins) - Alcohol/Substance Use Hx Alcohol Use: No History of Substance Use: reports: None - Smoking History Smoking history: Former smoker Have you smoked in the past 12 months: No If you are a former smoker, when did you quit?: 1996 - Social History ADL: Independent History of Recent Travel: Yes (to [place] in past 2 weeks ) Home Medications - Allergies Allergies/Adverse Reactions: Allergies Allergy/AdvReac Type Severity Reaction Status Date / Time No Known Allergies Allergy Verified 07/21/17 14:19 - Home Medications Home Medications: Ambulatory Orders Albuterol Sulfate Inhaler - [Ventolin HFA Inhaler -] 2 puff PO QID PRN 06/07/15 Aspirin [Aspirin EC] 81 mg PO DAILY 06/07/15 Enalapril Maleate [Vasotec -] 20 mg PO DAILY 06/07/15 Insulin Glargine,Hum.rec.anlog [Lantus (10mL VIAL) -] 40 unit SQ HS 06/07/15 Salmeterol/Fluticasone [Advair 100Mcg/50Mcg -] 1 puff PO BID 06/07/15 Sertraline HCl 50 mg PO DAILY 06/07/15 metFORMIN HCL [Metformin HCl] 1,000 mg PO BID 06/07/15 Acetaminophen [Tylenol .Regular Strength -] 650 mg PO Q6H PRN #0 tablet Methadone [Dolophine -] 70 mg PO DAILY 01/30/16 Family Disease History - Family Disease History Family Disease History: Other: Mother (asthma ) Review of Systems - Review of Systems Constitutional: reports: Chills, Weakness. denies: No Symptoms, Diaphoresis, Fever, Lethargy, Loss of Appetite, Malaise, Night Sweats, Unintentional Wgt. Loss, Other Eyes: denies: No Symptoms, Blind Spots, Blurred Vision, Double Vision, Eye Pain , Floaters, Photophobia, Recent Change in Vision, Other HENT: denies: No Symptoms, Difficult Swallowing, Ear Discharge, Ear Pain, Epistaxis, Gingival Bleeding, Hearing Loss, Mouth Swelling, Nasal Congestion, Ocular Prosthesis, Throat Pain, Toothache, Ringing in Ears, Other Neck: denies: No Symptoms, Decreased ROM, Lumps, Pain on Movement, Stiffness, Swollen Glands, Tenderness, Other Cardiovascular: reports: Chest Pain, Palpitations. denies: No Symptoms, Edema, Shortness of Breath, Other Respiratory: denies: No Symptoms, Cough, Exercise Intolerance, Hemoptysis, Orthopnea, PND, Snoring, SOB, SOB on Exertion, Wheezing, Other Gastrointestinal: denies: No Symptoms, Abdominal Pain, Bloating, Constipation, Diarrhea, Dysphagia, Indigestion, Melena, Nausea, Rectal Bleeding, Vomiting, Vomiting Blood, Other Genitourinary: denies: No Symptoms, Burning, Discharge, Dysuria, Flank Pain, Frequency, Hematuria, Incontinence, Lesions, Menses, Pain, Testicular Mass, Testicular Pain, Testicular Swelling, Urgency, Vaginal Bleeding, Other Breasts: denies: No Symptoms Reported, See HPI, Breast Implants, Discharge from Nipple, Lumps, Pain, Skin Changes, Other Musculoskeletal: reports: Muscle Weakness. denies: No Symptoms, Back Pain, Crepitus, Decreased ROM, Extremity Pain, Joint Pain, Joint Swelling, Muscle Pain , Muscle Cramps, Other Integumentary: denies: No Symptoms, Blister, Bruising, Change in Color, Eczema, Erythema, Incision, Lesions, Lump, Pallor, Pruritis, Rash, Wound, Other Neurological: reports: Headache, Numbness, Weakness. denies: No Symptoms, Change in LOC, Change in Speech, Confusion, Dizziness, Incoordination, Parasthesia, Pre-Existing Deficit, Seizure, Syncope, Tremors, Unsteady Gait, Other Endocrine: denies: No Symptoms, Excessive Sweating, Flushing, Increased Hunger, Increased Thirst, Intolerance to Cold, Intolerance to Heat, Unexplained Weight Gain, Unexplained Weight Loss, Other Hematology/Lymphatic: denies: No Symptoms, Easily Bruised, Excessive Bleeding, Swollen Glands, Other Psychiatric: denies: No Symptoms, Altered Sleep Pattern, Anxiety, Depression, Hallucinations, Panic, Paranoia, Suicidal, Other - Risk Factors Known Risk Factors: Yes: Diabetes Mellitus, Hypercholesterolemia, Hypertension Vital Signs: Vital Signs Temperature 98.5 F 07/20/18 14:34 Pulse Rate 89 07/20/18 14:34 Respiratory Rate 18 07/20/18 14:34 Blood Pressure 160/101 H 07/20/18 14:34 O2 Sat by Pulse Oximetry (%) 96 07/20/18 14:34 Constitutional: Yes: Well Nourished, No Distress, Calm Eyes: Yes: WNL, Conjunctiva Clear, EOM Intact, PERRL HENT: Yes: WNL, Atraumatic, Normocephalic Neck: Yes: WNL, Supple, Trachea Midline Respiratory: Yes: WNL, Regular, CTA Bilaterally. No: Rales, Rhonchi, SOB, Wheezes Gastrointestinal: Yes: WNL, Normal Bowel Sounds, Soft. No: Distention, Tenderness Renal/: Yes: WNL Cardiovascular: Yes: WNL, Regular Rate and Rhythm. No: Bradycardia, Tachycardia , Pulse Irregular, Gallop, Rub, Varicosities JVD: No Carotid Bruit: No PMI: Non-Displaced Heart Sounds: Yes: S1, Split S2. No: S3, S4, Clicks, Gallop, Rub, Bruit Murmur: No: Systolic Murmur, Diastolic Murmur Musculoskeletal: Yes: WNL Extremities: Yes: WNL Edema: No Peripheral Pulses WNL: Yes Peripheral Pulses: 2+ Left Doralis Pedis, 2+ Right Dorsalis Pedis Integumentary: Yes: WNL Neurological: Yes: WNL, Alert, Oriented, Cran Nerves II-XII Intact ...Motor Strength: WNL Psychiatric: Yes: WNL, Alert, Oriented - Other Data Labs, Other Data: CBC, BMP 07/20/18 11:48 07/20/18 11:48 INR, PTT INR 1.06 (0.83-1.09) 07/20/18 11:48 Troponin, BNP 07/20/18 11:48 Troponin I 0.06 H B-Natriuretic Peptide 2540.4 H Troponin, BNP 07/20/18 11:48 Troponin I 0.06 H B-Natriuretic Peptide 2540.4 H ekg-nsr 93bpm, st depressions v3-v6, ii iii avf c/w ischemia Imaging - Results Chest X-ray: Report Reviewed, Image Reviewed EKG: Report Reviewed, Image Reviewed Other: Report Reviewed, Image Reviewed Assessment/Plan 62 year old man pmh HTN, HLD, DMII, PAD diabetic foot ulcer, PVD, HCV s/p harvoni, h/o opiod abuse on methadone admitted with chest pain, L arm L leg numbness and weakness, palpitations, headache found to have severely uncontrolled HTN, mildly elevated troponin, elevated creatinine, ekg c/w ischemia. currently only c/o headache. states yesterday throughout the day he had intermittent chills and body shakes then yesterday evening while having chills felt sudden onset severe substernal chest pain with associated palpitations and L arm/L leg numbness and weakness. this ocurred again at 4am and thus he came to the ER. States his left sided weakness has resolved but still feels numb. no further chest pain or palpitations. Chest pain-in setting of severe uncontrolled HTN -ekg suggestive of ischemia -troponin minimally elevated with normal CK level -no aortic dissection on CTA c/a/p -Ct head no bleed -CT suggests metastatic malignancy -creatinine elevated -HTN control, can use IV Labetalol as needed -start Metoprolol tartrate 25mg bid for now and uptitrate as needed -tele vs ICU monitoring -trend cardiac enzymes -as CK level wnl and troponin not significantly trending up cont ASA 81mg daily after loading -will follow CT suggestive of metastatic disease -possibe mult myeloma given elevated creatinine, calcium and imaging results -would have oncology evaluate for possible malignancy -consider nephrology evaluation
[2018-07-20] MEDS ORDERED: ASPIRIN 325 MG TABLET PO ONE (15:17)
[2018-07-20] MEDS ORDERED: LABETALOL HCL 5 MG/1 ML (100MG/20 ML VIAL) IVPUSH ONE (15:19)
[2018-07-20] MEDS ORDERED: ASPIRIN 325 MG TABLET ONE (15:25)
[2018-07-20] MEDS ORDERED: METOPROLOL TARTRATE 25 MG TABLET (FP) ONE (15:26)
[2018-07-20] MEDS ORDERED: LABETALOL HCL 5 MG/1 ML (200MG/40ML VIAL) IVPB ONE ×2 (15:26→15:27)
[2018-07-20] MEDS ORDERED: SODIUM CHLORIDE 0.9% 1000 ML INFUS.BAG IV ONE (15:32)
[2018-07-20] MEDS: METOPROLOL TARTRATE 25 MG TABLET (FP) PO SCH ×2 (15:32→22:19)
[2018-07-20] MEDS ORDERED: SODIUM CHLORIDE 1,000 ML IV SCH (16:30)
[2018-07-20] MEDS ORDERED: MAGNESIUM OXIDE 400 MG TABLET (FP) PO ONE (16:35)
--- NOTE | 2018-07-20 16:40 | PN ---
Teaching Attending Note Name of Resident: José Lindsey ATTENDING PHYSICIAN STATEMENT I saw and evaluated the patient. I reviewed the resident's note and discussed the case with the resident. I agree with the resident's findings and plan as documented. SUBJECTIVE: This is a 62 year old man with a history of HTN, hyperlipidemia, type 2 DM, diabetic foot ulcers, asthma, PAD, hepatitis C, depression, opioid dependence who comes to the ED complaining of chest pain, palpitations, headache , and weakness of his left arm and leg. On arrival, BP was 227/110. He was treated with Labetalol IV and his BP and symptoms began to improve. OBJECTIVE: Vital Signs Period Temp Pulse Resp BP Sys/Andre Pulse Ox Last 24 Hr 97.9 F-98.5 F 89-112 18-20 160-227/101-123 94-96 HEART: S1S2, RRR LUNGS: Clear ABDOMEN: Obese, soft, non-tender, non-distended, normal BS EXTREMITIES: No edema NEUROLOGICAL: Alert, oriented, strength 5/5, sensation intact Laboratory Tests 07/20/18 07/20/18 07/20/18 11:48 11:48 11:48 WBC 9.9 RBC 5.02 Hgb 13.4 Hct 41.4 MCV 82.5 MCH 26.8 MCHC 32.5 RDW 14.0 Plt Count 287 MPV 7.2 L Absolute Neuts (auto) 8.2 H Neutrophils % 82.9 H D Lymphocytes % 13.4 D Monocytes % 2.5 L Eosinophils % 0.8 Basophils % 0.4 Nucleated RBC % 0 PT with INR 12.50 INR 1.06 PTT (Actin FS) 32.4 Sodium 131 L Potassium 4.4 Chloride 99 Carbon Dioxide 26 Anion Gap 6 L BUN 28 H Creatinine 1.7 H Creat Clearance w eGFR 40.78 Random Glucose 234 H Calcium 10.2 H Magnesium 1.5 L Total Bilirubin 0.3 AST 13 L ALT 16 Alkaline Phosphatase 87 Creatine Kinase 56 CK-MB (CK-2) 1.2 Troponin I 0.06 H B-Natriuretic Peptide 2540.4 H Total Protein 7.0 Albumin 3.1 L Lipase 290 Urine Color Urine Appearance Urine pH Ur Specific [place] Urine Protein Urine Glucose (UA) Urine Ketones Urine Blood Urine Nitrite Urine Bilirubin Urine Urobilinogen Ur Leukocyte Esterase Urine WBC (Auto) Urine RBC (Auto) Blood Type Antibody Screen 07/20/18 07/20/18 07/20/18 11:48 12:55 14:00 WBC RBC Hgb Hct MCV MCH MCHC RDW Plt Count MPV Absolute Neuts (auto) Neutrophils % Lymphocytes % Monocytes % Eosinophils % Basophils % Nucleated RBC % PT with INR INR PTT (Actin FS) Sodium Potassium Chloride Carbon Dioxide Anion Gap BUN Creatinine Creat Clearance w eGFR Random Glucose Calcium Magnesium Total Bilirubin AST ALT Alkaline Phosphatase Creatine Kinase Cancelled CK-MB (CK-2) Cancelled Troponin I B-Natriuretic Peptide Total Protein Albumin Lipase Urine Color Straw Urine Appearance Clear Urine pH 6.0 Ur Specific [place] 1.024 Urine Protein 2+ H Urine Glucose (UA) 1+ H Urine Ketones Negative Urine Blood Negative Urine Nitrite Negative Urine Bilirubin Negative Urine Urobilinogen Negative Ur Leukocyte Esterase Negative Urine WBC (Auto) 1 Urine RBC (Auto) 1 Blood Type A POSITIVE Antibody Screen Negative 07/20/18 14:43 WBC RBC Hgb Hct MCV MCH MCHC RDW Plt Count MPV Absolute Neuts (auto) Neutrophils % Lymphocytes % Monocytes % Eosinophils % Basophils % Nucleated RBC % PT with INR INR PTT (Actin FS) Sodium Potassium Chloride Carbon Dioxide Anion Gap BUN Creatinine Creat Clearance w eGFR Random Glucose Calcium Magnesium Total Bilirubin AST ALT Alkaline Phosphatase Creatine Kinase CK-MB (CK-2) Troponin I 0.07 H B-Natriuretic Peptide Total Protein Albumin Lipase Urine Color Urine Appearance Urine pH Ur Specific [place] Urine Protein Urine Glucose (UA) Urine Ketones Urine Blood Urine Nitrite Urine Bilirubin Urine Urobilinogen Ur Leukocyte Esterase Urine WBC (Auto) Urine RBC (Auto) Blood Type Antibody Screen Home Medications Medication Instructions Recorded Albuterol Sulfate Inhaler - 2 puff PO QID PRN 06/07/15 [Ventolin HFA Inhaler -] Aspirin [Aspirin EC] 81 mg PO DAILY 06/07/15 Enalapril Maleate [Vasotec -] 20 mg PO DAILY 06/07/15 Insulin Glargine,Hum.rec.anlog 40 unit SQ HS 06/07/15 [Lantus (10mL VIAL) -] Salmeterol/Fluticasone [Advair 1 puff PO BID 06/07/15 100Mcg/50Mcg -] Sertraline HCl 50 mg PO DAILY 06/07/15 metFORMIN HCL [Metformin HCl] 1,000 mg PO BID 06/07/15 Acetaminophen [Tylenol .Regular 650 mg PO Q6H PRN #0 tablet 06/14/15 Strength -] Methadone [Dolophine -] 70 mg PO DAILY 01/30/16 ASSESSMENT AND PLAN: This is a 62 year old man with a history of HTN, hyperlipidemia, type 2 DM, diabetic foot ulcers, asthma, PAD, hepatitis C, depression, opioid dependence who presented to the ED with chest pain, palpitations, headache, and weakness of his left arm and leg, and was found to have BP 227/110. 1. Hypertensive emergency - BP 227/110 with chest pain, headache, mild troponin elevation, ischemic EKG changes, DARIO, elevated BNP, neurological symptoms - Labetalol IV given in ED - Aspirin, Lopressor started - Hold enalapril secondary to elevated creatinine - Monitor BP - Labetalol IV as needed - Echocardiogram - Monitor on telemetry - Serial troponins - Repeat EKG in AM - Cardiology consult appreciated 2. Acute kidney injury vs stage 3 CKD - Creatinine was 1.0 07/2017, 1.5 10/2017, 1.7 today - BP control - IV fluid - Hold metformin, enalapril - Monitor creatinine - Renal US - Nephrology consult 3. 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 Hyponatremia - IV NS - Monitor electrolytes 5. Hypercalcemia - Corrected calcium is 10.9 - IV fluid - Monitor calcium 6. Hypomagnesemia - Supplement magnesium 7. Hyperlipidemia 8. Type 2 DM - Continue Lantus - Hold metformin secondary to elevated creatinine - Fingersticks with Novolog sliding scale 9. Depression - Continue Zoloft 10. Opioid dependence - Continue methadone 11. Asthma - Stable - Continue Advair - Albuterol as needed
[2018-07-20] MEDS ORDERED: RANITIDINE HCL 150 MG TABLET (FP) ONE (17:28)
[2018-07-20] MEDS ORDERED: MAGNESIUM OXIDE 400 MG TABLET (FP) ONE (17:28)
[2018-07-20] MEDS: RANITIDINE HCL 150 MG TABLET (FP) PO SCH (17:31)
--- NOTE | 2018-07-20 18:30 | HP ---
CHIEF COMPLAINT: Chest pain/L arm and leg weakness PCP: Dr. Walden ([facility]) HISTORY OF PRESENT ILLNESS: 62yo M with extensive history who presents for CP, L arm and leg numbness that started at 6pm last night while sitting on couch watching tv. CP worse last night with some improvement however still currently L anterior sharp pain which radiates to his arm and back. Pt reports during this pain he had difficultly lifting his arm to his head and standing up. Pt still had CP this morning and was driven to his Methadone clinic and then to the ER for further eval. Pt reports recent decrease in exercise tolerance when picking up his granddaughter from the bus. He reports feeling more short of breath during this walk and having to take multiple breaks which is not his usual. Denies fever/chills, n/v/d/c, shortness of breath, headache, abdominal pain, edema in his limbs, and dizziness. ER course was notable for: (1) (2) (3) Recent Travel: Recent travel to [place] (2 weeks prior) PAST MEDICAL HISTORY: HTN HLD NIDDM Diabetic foot ulcer s/p amputation Hep C s/p Harvoni Opioid dependence (Methadone: confirmed with [facility] and RN Debbie) Asthma Depression PAST SURGICAL HISTORY: R fifth toe amputation Social History: Smoking: Former; quit 1996 Alcohol: None Drugs: Prior opioid abuse Lives independently; retired Allergies No Known Allergies Allergy (Verified 07/21/17 14:19) HOME MEDICATIONS: Home Medications Medication Instructions Recorded Albuterol Sulfate Inhaler - 2 puff PO QID PRN 06/07/15 [Ventolin HFA Inhaler -] Aspirin [Aspirin EC] 81 mg PO DAILY 06/07/15 Enalapril Maleate [Vasotec -] 20 mg PO DAILY 06/07/15 Insulin Glargine,Hum.rec.anlog 40 unit SQ HS 06/07/15 [Lantus (10mL VIAL) -] Salmeterol/Fluticasone [Advair 1 puff PO BID 06/07/15 100Mcg/50Mcg -] Sertraline HCl 50 mg PO DAILY 06/07/15 metFORMIN HCL [Metformin HCl] 1,000 mg PO BID 06/07/15 Acetaminophen [Tylenol .Regular 650 mg PO Q6H PRN #0 tablet 06/14/15 Strength -] Methadone [Dolophine -] 70 mg PO DAILY 01/30/16 REVIEW OF SYSTEMS CONSTITUTIONAL: Absent: fever, chills, diaphoresis, malaise, loss of appetite, weight change HEENT: Absent: rhinorrhea, nasal congestion, throat pain, throat swelling, difficulty swallowing, mouth swelling, ear pain, eye pain, visual changes CARDIOVASCULAR: Present: Chest pain, palpitations Absent: syncope, irregular heart rate, lightheadedness, peripheral edema RESPIRATORY: Absent: cough, shortness of breath, dyspnea with exertion, orthopnea, wheezing, stridor, hemoptysis GASTROINTESTINAL: Absent: abdominal pain, abdominal distension, nausea, vomiting, diarrhea, constipation, melena, hematochezia GENITOURINARY: Absent: dysuria, frequency, urgency, hesitancy, hematuria, MUSCULOSKELETAL: Present: Back pain (thoracic) Absent: myalgia, arthralgia, joint swelling, neck pain SKIN: Absent: rash, itching, pallor NEUROLOGIC: Present: Focal weakness Absent: headache, dizziness, seizure, mental status changes, bladder or bowel incontinence PSYCHIATRIC: Absent: anxiety, suicidal or homicidal ideation, hallucinations. PHYSICAL EXAMINATION Vital Signs - 24 hr 07/20/18 07/20/18 07/20/18 10:59 11:45 13:34 Temperature 97.9 F Pulse Rate 112 H Pulse Rate [ 92 H 89 Apical] Respiratory 18 20 18 Rate Blood Pressure 227/110 H Blood Pressure 188/123 H 172/101 H [Right Arm] O2 Sat by Pulse 94 L 95 94 L Oximetry (%) 07/20/18 07/20/18 07/20/18 14:34 17:25 18:23 Temperature 98.5 F 98.4 F Pulse Rate Pulse Rate [ 89 66 Apical] Respiratory 18 18 Rate Blood Pressure Blood Pressure 160/101 H 108/66 [Right Arm] O2 Sat by Pulse 96 95 Oximetry (%) GENERAL: NAD, awake, alert, and fully oriented HEENT: EOMI, JAMES, sclera anicteric, NC/AT, MMM, NECK: No JVD LUNGS: CTA bilaterally. No wheezes, and no crackles. No accessory muscle use. On RA HEART: RRR, normal S1 and S2 without murmur CHEST: R "nickel-sized" hardened area on anterior chest subcutaneously without underlying skin changes noted; L anterior chest pain NOT reproducible ABDOMEN: Soft, nontender, not distended, normoactive bowel sounds, no guarding MUSCULOSKELETAL: No CVA tenderness. UPPER EXTREMITIES: 2+ radial pulses, warm, well-perfused. No cyanosis. No clubbing. No peripheral edema. LOWER EXTREMITIES: 2+ DP pulses, warm, well-perfused. No calf tenderness. No peripheral edema. R foot amputations noted NEUROLOGICAL: contract processor II-XII intact. Strength 5/5 in upper and lower extremity aparicio. Sensation to dull touch symmetrical in all aparicio however sensation to sharp is absent in b/l lower extremities (chronic). Normal speech. Babinski downgoing b/l PSYCHIATRIC: Cooperative. Good eye contact. Appropriate mood and affect. SKIN: Warm, dry, no rashes or lesions noted Laboratory Results - last 24 hr 07/20/18 07/20/18 07/20/18 11:48 11:48 11:48 WBC 9.9 RBC 5.02 Hgb 13.4 Hct 41.4 MCV 82.5 MCH 26.8 MCHC 32.5 RDW 14.0 Plt Count 287 MPV 7.2 L Absolute Neuts (auto) 8.2 H Neutrophils % 82.9 H D Lymphocytes % 13.4 D Monocytes % 2.5 L Eosinophils % 0.8 Basophils % 0.4 Nucleated RBC % 0 PT with INR 12.50 INR 1.06 PTT (Actin FS) 32.4 Sodium 131 L Potassium 4.4 Chloride 99 Carbon Dioxide 26 Anion Gap 6 L BUN 28 H Creatinine 1.7 H Creat Clearance w eGFR 40.78 Random Glucose 234 H Calcium 10.2 H Magnesium 1.5 L Total Bilirubin 0.3 AST 13 L ALT 16 Alkaline Phosphatase 87 Creatine Kinase 56 CK-MB (CK-2) 1.2 Troponin I 0.06 H B-Natriuretic Peptide 2540.4 H Total Protein 7.0 Albumin 3.1 L Lipase 290 Urine Color Urine Appearance Urine pH Ur Specific [place] Urine Protein Urine Glucose (UA) Urine Ketones Urine Blood Urine Nitrite Urine Bilirubin Urine Urobilinogen Ur Leukocyte Esterase Urine WBC (Auto) Urine RBC (Auto) Blood Type Antibody Screen 07/20/18 07/20/18 07/20/18 11:48 12:55 14:00 WBC RBC Hgb Hct MCV MCH MCHC RDW Plt Count MPV Absolute Neuts (auto) Neutrophils % Lymphocytes % Monocytes % Eosinophils % Basophils % Nucleated RBC % PT with INR INR PTT (Actin FS) Sodium Potassium Chloride Carbon Dioxide Anion Gap BUN Creatinine Creat Clearance w eGFR Random Glucose Calcium Magnesium Total Bilirubin AST ALT Alkaline Phosphatase Creatine Kinase Cancelled CK-MB (CK-2) Cancelled Troponin I B-Natriuretic Peptide Total Protein Albumin Lipase Urine Color Straw Urine Appearance Clear Urine pH 6.0 Ur Specific [place] 1.024 Urine Protein 2+ H Urine Glucose (UA) 1+ H Urine Ketones Negative Urine Blood Negative Urine Nitrite Negative Urine Bilirubin Negative Urine Urobilinogen Negative Ur Leukocyte Esterase Negative Urine WBC (Auto) 1 Urine RBC (Auto) 1 Blood Type A POSITIVE Antibody Screen Negative 07/20/18 14:43 WBC RBC Hgb Hct MCV MCH MCHC RDW Plt Count MPV Absolute Neuts (auto) Neutrophils % Lymphocytes % Monocytes % Eosinophils % Basophils % Nucleated RBC % PT with INR INR PTT (Actin FS) Sodium Potassium Chloride Carbon Dioxide Anion Gap BUN Creatinine Creat Clearance w eGFR Random Glucose Calcium Magnesium Total Bilirubin AST ALT Alkaline Phosphatase Creatine Kinase CK-MB (CK-2) Troponin I 0.07 H B-Natriuretic Peptide Total Protein Albumin Lipase Urine Color Urine Appearance Urine pH Ur Specific [place] Urine Protein Urine Glucose (UA) Urine Ketones Urine Blood Urine Nitrite Urine Bilirubin Urine Urobilinogen Ur Leukocyte Esterase Urine WBC (Auto) Urine RBC (Auto) Blood Type Antibody Screen ASSESSMENT/PLAN: 1) HTN Emergency --BP elevated to 227/110 with chest pain, troponin leak --Labetalol given in ED with resulting pressure decrease to 160/93 --Monitor --Echocardiogram ordered --AM EKG ordered --Trend cardiac profile --Cardiology already on board --PRN Labetolol pushes as needed for now --Hold ACEi in lieu of DARIO 2) Acute on ? chronic kidney disease --Most recent Cr 1.5 (2017) however only one reading --1.7 today with BUN of 28 --Possibility manifestation of HTN emergency as well --IVF --Nephrology consult for input --Urine electrolytes and Cr --Monitor --Holding ACEi as above; hold metformin 3) Hyponatremia --131 today --IVF (NS) --Monitor --No clinical symptoms at this point 4) Hypercalcemia --Corrected Calcium 10.92 --IVF as above --In lieu of hypercalcemia and osteolytic lesions on imaging will order SPEP and UPEP to r/o MM --If w/u indicative of MM will have to consult Hem/Onc 5) NIDDM --Continue Levemir HS --Hold Metformin --ISS ACHS --BGM ACHS 6) Opioid Dependence --Methadone 70 daily --Dose confirmed already by ED RN with [facility] and home pill bottle 7) Depression --Continue home dose Zoloft 8) Asthma --Not in exacerbation; continue home dose medications FEN: Fluids: As above; NS@100cc/hr Electrolyte abnormalities: HypoMg (repleted); HypoNa; HyperCa Nutrition: Diabetic, low sodium PPX: DVT - Heparin SQ TID GI - Zantac 150mg qdaily Dispo: Admit telemetry Case discussed with Dr. Radha Lindsey, DO - IM PGY-2 Visit type - Emergency Visit Emergency Visit: Yes ED Registration Date: 07/20/18 Care time: The patient presented to the Emergency Department on the above date and was hospitalized for further evaluation of their emergent condition. - New Patient This patient is new to me today: Yes Date on this admission: 07/20/18 - Critical Care Critical Care patient: No
[2018-07-20] MEDS: FLUTICASONE/SALMETEROL 100 MCG/50 MCG DISKUS IH SCH (22:17)
[2018-07-20] MEDS: INSULIN (LEVEMIR) 100 UNITS/ML UNITS SQ SCH (22:18)
[2018-07-20] MEDS: HEPARIN NA (PORCINE) 5,000 UNITS/ML 1ML VIAL SQ SCH (22:18)
[2018-07-20] MEDS: INSULIN SLIDING SCALE (NOVOLOG) 1 VIAL SQ SCH (22:19)
[2018-07-20] MEDS ORDERED: PT OWN MED DRAWER 7, Y5N ONE (22:31)
--- NOTE | 2018-07-21 05:56 | HOSP ---
Physical Examination Vital Signs: Vital Signs Temperature 98.2 F 07/21/18 01:54 Pulse Rate 115 H 07/21/18 01:54 Respiratory Rate 18 07/21/18 01:54 Blood Pressure 163/77 07/21/18 01:54 O2 Sat by Pulse Oximetry (%) 95 07/20/18 22:00 Labs: CBC, BMP 07/20/18 11:48 07/20/18 11:48 Hospitalist Encounter Assessment: VS 5:50 am before symptoms: 183/92, HR 69, o2 sat 96%, Temp 97.9. Repeat vitals: 180/87, HR 61, 02sat 100% on 2L NC. Paged by nurse that pt c/o severe chest pain. Went to see pt, pt aaox3, c/o chest pain radiaitng to his left side and back. STAT EKG and Troponin ordered, sublingual nitro. EKG:Normal Sinus rythm, Nonspecific ST and T wave abnormal, prolonged QT. Compared to previous EKG 07/20--> prolonged QT is new.
[2018-07-21 05:57] LABS: HEMATOCRIT 37.2 % (35.4-49); HEMOGLOBIN 11.9 GM/dL (11.7-16.9); MCH 26.3 pg (25.7-33.7); MCHC 31.9 g/dl (32.0-35.9); MEAN CELL VOLUME 82.3 fl (80-96); MEAN PLT VOLUME 6.4 fl (7.5-11.1); PLATELET COUNT 246 K/MM3 (134-434); RBC 4.52 M/mm3 (4.00-5.60); RDW 13.8 % (11.9-15.9); WHITE BLOOD COUNT 9.8 K/mm3 (4.0-10.0)
[2018-07-21] MEDS ORDERED: METHADONE HCL 40 MG DISPERSABLE TABLET PO SCH (06:00)
[2018-07-21] MEDS ORDERED: NITROGLYCERIN SUBLINGUAL 1/150 0.4 MG TAB SL PRN (06:13)
[2018-07-21] MEDS ORDERED: NITROGLYCERIN SUBLINGUAL 1/150 0.4 MG TAB SL ONE (06:15)
[2018-07-21] MEDS: HEPARIN NA (PORCINE) 5,000 UNITS/ML 1ML VIAL SQ SCH ×3 (06:22→21:50)
[2018-07-21] MEDS: INSULIN SLIDING SCALE (NOVOLOG) 1 VIAL SQ SCH ×4 (06:23→21:51)
[2018-07-21 06:33] LABS: ALBUMIN 2.9 g/dl (3.4-5.0); ALK PHOS 72 U/L (45-117); ANION GAP 9 MMOL/L (8-16); BILIRUBIN,TOTAL 0.3 mg/dL (0.2-1); BLOOD UREA NITROGEN 32 mg/dL (7-18); CHLORIDE 104 mmol/L (98-107); CO2 27 mmol/L (21-32); CREATININE 2.1 mg/dL (0.55-1.3); GLUCOSE,RANDOM 124 mg/dL (74-106); MAGNESIUM 1.8 mg/dL (1.8-2.4); PHOSPHOROUS 4.2 mg/dL (2.5-4.9); POTASSIUM 4.6 mmol/L (3.5-5.1); SGOT/AST 10 U/L (15-37); SGPT/ALT 13 U/L (13-61); SODIUM 140 mmol/L (136-145); TOT PROT 6.4 g/dl (6.4-8.2)
[2018-07-21] MEDS ORDERED: METHADONE HCL 40 MG DISPERSABLE TABLET ONE (06:49)
[2018-07-21] MEDS ORDERED: METHADONE HCL 10 MG TABLET ONE (06:50)
[2018-07-21] MEDS: METHADONE 40 MG, METHADONE 30 MG PO SCH (06:50)
--- NOTE | 2018-07-21 09:20 | EKG ---
Test Reason : Blood Pressure : / mmHG Vent. Rate : 064 BPM Atrial Rate : 064 BPM P-R Int : 168 ms QRS Dur : 082 ms QT Int : 480 ms P-R-T Axes : 040 037 089 degrees QTc Int : 495 ms NORMAL SINUS RHYTHM NONSPECIFIC ST AND T WAVE ABNORMALITY PROLONGED QT ABNORMAL ECG WHEN COMPARED WITH ECG OF 20-JUL-2018 11:17, INVERTED T WAVES HAVE REPLACED NONSPECIFIC T WAVE ABNORMALITY IN ANTERIOR LEADS QT HAS LENGTHENED Confirmed by OTIS PEREZ MD ([id number]) on 07/21/2018 9:20:40 AM Referred By: Confirmed By:OTIS PEREZ MD
--- NOTE | 2018-07-21 09:22 | EKG ---
Test Reason : Blood Pressure : / mmHG Vent. Rate : 101 BPM Atrial Rate : 101 BPM P-R Int : 164 ms QRS Dur : 076 ms QT Int : 354 ms P-R-T Axes : 072 032 086 degrees QTc Int : 459 ms SINUS TACHYCARDIA NONSPECIFIC ST AND T WAVE ABNORMALITY ABNORMAL ECG WHEN COMPARED WITH ECG OF 21-JUL-2017 17:16, ST NOW DEPRESSED IN ANTERIOR LEADS ST NO LONGER ELEVATED IN LATERAL LEADS Confirmed by CHRIS SMITH, OTIS ([id number]) on 07/21/2018 9:22:05 AM Referred By: Confirmed By:OTIS PEREZ MD
[2018-07-21] MEDS ORDERED: amLODIPine BESYLATE 5 MG TABLET (FP) PO SCH (10:00)
[2018-07-21] MEDS: FLUTICASONE/SALMETEROL 100 MCG/50 MCG DISKUS IH SCH ×2 (10:01→21:50)
[2018-07-21] MEDS: METOPROLOL TARTRATE 25 MG TABLET (FP) PO SCH ×2 (10:01→21:50)
[2018-07-21] MEDS: ASPIRIN COATED 81 MG TABLET.EC PO SCH (10:01)
[2018-07-21] MEDS: SERTRALINE HCL 25 MG TABLET (FP) PO SCH (10:01)
[2018-07-21] MEDS: RANITIDINE HCL 150 MG TABLET (FP) PO SCH (10:01)
--- NOTE | 2018-07-21 12:51 | ECHO ---
Name: SHALONDA ROTH Exam:Adult Echocardiogram Study Date: 07/21/2018 08:35 AM Age: 62 yrs Reason For Study: CHEST PAIN NSTEMI Height: 73 in Weight: 240 lb BSA: 2.3 m2 MMode/2D Measurements & Calculations IVSd: 1.1 cm Ao root diam: 2.9 cm LVIDd: 5.4 cm LA dimension: 4.0 cm LVIDs: 4.0 cm LVPWd: 0.99 cm EDV(Teich): 140.3 ml ESV(Teich): 69.3 ml Doppler Measurements & Calculations MV E max mundo: 58.3 cm/sec MR max mundo: 319.0 cm/sec MV A max mundo: 74.0 cm/sec MR max P.7 mmHg MV E/A: 0.79 MV dec time: 0.29 sec Med Peak E' Mundo: 5.3 cm/sec Med E/e': 11.1 Lat Peak E' Mundo: 7.9 cm/sec Lat E/e': 7.4 Procedure A complete two-dimensional transthoracic echocardiogram was performed (2D, M-mode, Doppler and color flow Doppler). Left Ventricle The left ventricle is normal in size. Left ventricular systolic function is mildly reduced. Ejection Fraction = 45-50%. There is mild global hypokinesis of the left ventricle. Right Ventricle The right ventricle is normal in size and function. Atria Normal left and right atrial size and function. Mitral Valve There is no mitral regurgitation noted. Tricuspid Valve There is trace tricuspid regurgitation. There was insufficient TR detected to calculate RV systolic p ressure. Aortic Valve No hemodynamically significant valvular aortic stenosis. No aortic regurgitation is present. Pulmonic Valve There is no pulmonic valvular regurgitation. Great Vessels The aortic root is normal size. Pericardium/Pleura There is no pericardial effusion. Interpretation Summary The left ventricle is normal in size. Left ventricular systolic function is mildly reduced. There is mild global hypokinesis of the left ventricle. The right ventricle is normal in size and function. There is trace tricuspid regurgitation. MD Tl Gant 07/21/2018 12:51 PM
--- NOTE | 2018-07-21 13:55 | PN ---
Physical Exam: SUBJECTIVE: Patient seen and examined. Had CP overnight; cardiology seeing. Some when I was in the room so can use PRNs. Atypical story, not on exertion, VSS. No new findings. BP slightly improved but still some readings by 180s. Continue aggressive tx. No SOB but is on O2. Denies any cough, change in sputum. OBJECTIVE: Vital Signs Period Temp Pulse Resp BP Sys/Andre Pulse Ox Last 24 Hr 97.8 F-98.5 F 62-115 17-20 108-183/66-101 95-96 GENERAL: The patient is awake, alert, and fully oriented, in no acute distress. HEAD: Normal with no signs of trauma. EYES: PERRL, extraocular movements intact, sclera anicteric, conjunctiva clear. No ptosis. ENT: Ears normal, nares patent, oropharynx clear without exudates, moist mucous membranes. NECK: Trachea midline, full range of motion, supple. LUNGS: Breath sounds equal, clear to auscultation bilaterally, no wheezes, no crackles, no accessory muscle use. HEART: Regular rate and rhythm, S1, S2 without murmur, rub or gallop. ABDOMEN: Soft, nontender, nondistended, normoactive bowel sounds, no guarding, no rebound, no hepatosplenomegaly, no masses. EXTREMITIES: 2+ pulses, warm, well-perfused, no edema. NEUROLOGICAL: Cranial nerves II through XII grossly intact. Normal speech, gait not observed. PSYCH: Normal mood, normal affect. SKIN: Warm, dry, normal turgor, no rashes or lesions noted Laboratory Results - last 24 hr 07/20/18 07/20/18 07/20/18 11:48 14:00 14:43 WBC RBC Hgb Hct MCV MCH MCHC RDW Plt Count MPV ESR Sodium 131 L Potassium 4.4 Chloride 99 Carbon Dioxide 26 Anion Gap 6 L BUN 28 H Creatinine 1.7 H Creat Clearance w eGFR 40.78 POC Glucometer Random Glucose 234 H Hemoglobin A1c % Calcium 10.2 H Phosphorus Magnesium 1.5 L Total Bilirubin 0.3 AST 13 L ALT 16 Alkaline Phosphatase 87 Creatine Kinase 56 Cancelled CK-MB (CK-2) 1.2 Cancelled Troponin I 0.06 H 0.07 H B-Natriuretic Peptide 2540.4 H Total Protein 7.0 Albumin 3.1 L Lipase 290 Ur Random Sodium Urine Creatinine 10/17/18 10/18/18 10/18/18 22:16 05:30 05:30 WBC 9.8 RBC 4.52 Hgb 11.9 Hct 37.2 MCV 82.3 MCH 26.3 MCHC 31.9 L RDW 13.8 Plt Count 246 MPV 6.4 L D ESR Sodium 140 Potassium 4.6 Chloride 104 Carbon Dioxide 27 Anion Gap 9 BUN 32 H Creatinine 2.1 H Creat Clearance w eGFR 31.96 POC Glucometer 154 Random Glucose 124 H Hemoglobin A1c % Calcium 9.0 Phosphorus 4.2 Magnesium 1.8 Total Bilirubin 0.3 AST 10 L ALT 13 Alkaline Phosphatase 72 Creatine Kinase 48 CK-MB (CK-2) Troponin I 0.04 B-Natriuretic Peptide Total Protein 6.4 Albumin 2.9 L Lipase Ur Random Sodium Urine Creatinine 07/21/18 07/21/18 07/21/18 05:30 05:30 05:58 WBC RBC Hgb Hct MCV MCH MCHC RDW Plt Count MPV ESR 60 H Sodium Potassium Chloride Carbon Dioxide Anion Gap BUN Creatinine Creat Clearance w eGFR POC Glucometer 168 Random Glucose Hemoglobin A1c % 7.3 H Calcium Phosphorus Magnesium Total Bilirubin AST ALT Alkaline Phosphatase Creatine Kinase CK-MB (CK-2) Troponin I B-Natriuretic Peptide Total Protein Albumin Lipase Ur Random Sodium Urine Creatinine 07/21/18 07/21/18 07/21/18 09:54 09:54 11:55 WBC RBC Hgb Hct MCV MCH MCHC RDW Plt Count MPV ESR Sodium Potassium Chloride Carbon Dioxide Anion Gap BUN Creatinine Creat Clearance w eGFR POC Glucometer 121 Random Glucose Hemoglobin A1c % Calcium Phosphorus Magnesium Total Bilirubin AST ALT Alkaline Phosphatase Creatine Kinase CK-MB (CK-2) Troponin I B-Natriuretic Peptide Total Protein Albumin Lipase Ur Random Sodium Cancelled 58 Urine Creatinine 38.0 H Active Medications Generic Name Dose Route Start Last Admin Trade Name Freq PRN Reason Stop Dose Admin Amlodipine Besylate 5 mg 07/21/18 10:00 07/21/18 10:01 Norvasc - PO 5 mg DAILY YAKOV Administration Aspirin 81 mg 07/21/18 10:00 07/21/18 10:01 Ecotrin - PO 81 mg DAILY YAKOV Administration Heparin Sodium (Porcine) 5,000 unit 07/20/18 22:00 07/21/18 13:16 Heparin - SQ 5,000 unit TID YAKOV Administration Insulin Aspart 1 vial 07/20/18 22:00 07/21/18 12:16 Novolog Vial Sliding Scale - SQ Not Given ACHS [facility] Protocol Insulin Detemir 40 units 07/20/18 22:00 07/20/18 22:18 Levemir Vial SQ 40 units HS YAKOV Administration Methadone HCl 40 mg/ Methadone 70 mg 07/21/18 06:00 07/21/18 06:50 HCl 30 mg PO 70 mg 0600 YAKOV Administration Metoprolol Tartrate 25 mg 07/20/18 15:20 07/21/18 10:01 Lopressor - PO 25 mg BID YAKOV Administration Nitroglycerin 0.4 mg 07/21/18 06:13 07/21/18 06:23 Nitrostat - SL 0.4 mg Q5M PRN Administration FOR CHEST PAIN Ranitidine HCl 150 mg 07/20/18 16:45 07/21/18 10:01 Zantac - PO 150 mg DAILY YAKOV Administration Fluticasone/Salmeterol 1 puff 07/20/18 22:00 07/21/18 10:01 Advair 100mcg/50mcg - IH 1 puff BID YAKOV Administration Sertraline HCl 50 mg 07/21/18 10:00 07/21/18 10:01 Zoloft - PO 50 mg DAILY YAKOV Administration ASSESSMENT/PLAN: 1. Hypertensive emergency - BP 227/110 with chest pain, headache, mild troponin elevation, ischemic EKG changes, DARIO, elevated BNP, neurological symptoms (but could have other explanation for neuro sx). Plan is to continue with PRN tx, add amlodipine and consider uptitrating. Limited in antihypertensive use by Cr. Echo showed 50% EF with global dilation. No issues reported frm tele. BP somewhat improved but still some spikes. CV consultation appreciated. Goal is <160 mmHg while inpatient and per [facility] guidelines outpatinet. 2. Acute kidney injury vs stage 3 CKD - Creatinine remains elevated. Will trend - Nephrology consult; defer management to them. He has reasons to have CKD but given concern for malignancy would like to further analyze the situaiton. 3. 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 Consult oncology when these are back 4. R-sided weakness, tingling, numbness -Weakness improved but still has some parasthesias. Could be attributable to #1 but given that we're already ruling out malignancy and he does have risk factors will check an MRI of the brain and carotid duplex scan. 5. Chest Pain - Improved; continue to monitor. Had CP overnight and had negative EKG for any new ischemic changes. Trending troponin. He told me he was being 'stressed ' today or tomorrow so will touch base with cardiology. 6. Hypercalcemia/HypoNa/Hypomagnesemia - Supplement magnesium; monitor Ca and Na. Asx and improved. 7. Hyperlipidemia 8. Type 2 DM - Continue Lantus and SSI 9. Depression - Continue Zoloft 10. Opioid dependence - Continue methadone 11. Asthma - Stable; Continue Advair with PRNs available. NOT O2 dependent but is on O2 ; if unable to be weaned or further complaints can start him on Prednisone burst and scheduled nebs Full Code Visit type - Emergency Visit Emergency Visit: No - New Patient This patient is new to me today: Yes Date on this admission: 07/21/18 - Critical Care Critical Care patient: No
--- NOTE | 2018-07-21 14:55 | PN ---
Progress Note, Physician Chief Complaint: The patient had episode of palpitation this morning, but there was no arrhythmia noted on tele. He reports no chest pain or palpitation. History of Present Illness: 62 year old man, former smoker, with a PMHx of HTN, HLD, DM-II, PAD, diabetic foot ulcer, PVD, HCV s/p harvoni, h/o opiod abuse on methadone admitted with chest pain, L arm L leg numbness and weakness, palpitations, headache found to have severely uncontrolled HTN, mildly elevated troponin, elevated creatinine, ekg c/w ischemia. Stable since admission without recurrent chest pain. BP control improved. Troponin is trending down. But renal function worsened. Echocardiogram 07/21/2018 showed normal LV size with mild global LV hypokinesis. LVEF 45-50%. Normal RV. Normal LA and RA in size. No significant valvular abnormalities. - Current Medication List Current Medications: Active Medications Amlodipine Besylate (Norvasc -) 5 mg PO DAILY [facility] Last Admin: 07/21/18 10:01 Dose: 5 mg Aspirin (Ecotrin -) 81 mg PO DAILY [facility] Last Admin: 07/21/18 10:01 Dose: 81 mg Heparin Sodium (Porcine) (Heparin -) 5,000 unit SQ TID [facility] Last Admin: 07/21/18 13:16 Dose: 5,000 unit Insulin Aspart (Novolog Vial Sliding Scale -) 1 vial SQ ACHS [facility]; Protocol Last Admin: 07/21/18 12:16 Dose: Not Given Insulin Detemir (Levemir Vial) 40 units SQ HS [facility] Last Admin: 07/20/18 22:18 Dose: 40 units Methadone HCl 40 mg/ Methadone (HCl 30 mg) 70 mg PO 0600 [facility] Last Admin: 07/21/18 06:50 Dose: 70 mg Metoprolol Tartrate (Lopressor -) 25 mg PO BID [facility] Last Admin: 07/21/18 10:01 Dose: 25 mg Nitroglycerin (Nitrostat -) 0.4 mg SL Q5M PRN PRN Reason: FOR CHEST PAIN Last Admin: 07/21/18 06:23 Dose: 0.4 mg Ranitidine HCl (Zantac -) 150 mg PO DAILY [facility] Last Admin: 07/21/18 10:01 Dose: 150 mg Fluticasone/Salmeterol (Advair 100mcg/50mcg -) 1 puff IH BID [facility] Last Admin: 07/21/18 10:01 Dose: 1 puff Sertraline HCl (Zoloft -) 50 mg PO DAILY [facility] Last Admin: 07/21/18 10:01 Dose: 50 mg - Objective Vital Signs: Vital Signs Temperature 98.1 F 07/21/18 08:26 Pulse Rate 62 07/21/18 08:26 Respiratory Rate 17 07/21/18 09:00 Blood Pressure 149/77 07/21/18 08:26 O2 Sat by Pulse Oximetry (%) 96 07/21/18 09:00 Labs: CBC, BMP 07/21/18 05:30 07/21/18 05:30 INR, PTT INR 1.06 (0.83-1.09) 07/20/18 11:48 Assessment/Plan 62 year old man, former smoker, with a PMHx of HTN, HLD, DM-II, PAD, diabetic foot ulcer, PVD, HCV s/p harvoni, h/o opiod abuse on methadone admitted with chest pain, L arm L leg numbness and weakness, palpitations, headache found to have severely uncontrolled HTN, mildly elevated troponin, elevated creatinine, ekg c/w ischemia. Stable since admission without recurrent chest pain. BP control improved. Troponin is trending down. But renal function worsened. Echocardiogram 07/21/2018 showed normal LV size with mild global LV hypokinesis. LVEF 45-50%. Normal RV. Normal LA and RA in size. No significant valvular abnormalities. 1) Chest pain-in setting of severe uncontrolled HTN. -troponin minimally elevated with normal CK level, trending down now, likely due to demand ischemia. No recurrent chest pain. -No aortic dissection on CTA c/a/p -Ct head no bleed -CT suggests metastatic malignancy -Creatinine elevated. -Echo showed global LV hypokinesis without regional wall motion abnormality, suggestive of hypertensive cardiomyopathy. -Conservative cardiac care without invasive intervention at this time. -No further cardiac test recommended at this time. 2) Severe HTN: BP control improved. -Change amilodipine to Nifedipine 60 mg daily. -Continue metoprolol tartrate 25 mg BID (heart rate is now high between high 50s and low 60s). 3) CT suggestive of metastatic disease -possibe mult myeloma given elevated creatinine, calcium and imaging results -would have oncology evaluate for possible malignancy -consider nephrology evaluation
[2018-07-21] MEDS: NIFEdipine E.R 60 MG TABLET (UD) PO SCH (15:30)
--- NOTE | 2018-07-21 16:46 | CONSULT ---
Consult Consult Specialty:: Nephrology Reason for Consultation:: DARIO - History of Present Illness Chief Complaint: chest pain and left arm and leg numbness History of Present Illness: Pt is a 62 year old male with pmhx of CKD, HTN. HLD, DM, DFU, PCD, Hep C treated with harvoni and his of substance abuse on methadone who presented to the ER with chest associated with left arm and leg numbness. He says the symptoms started suddenly. He was taken for a CT angio. I was called to evaluate him for DARIO. He denies history of CKD but did have an abnormal creatinine on previous labs. He denies dysuria or hematuria. He does take nsaids regularly. He denies shortness of breath. - History Source History Provided By: Patient - Past Medical History Cardio/Vascular: Yes: HTN, Hyperlipdemia Pulmonary: Yes: Asthma Renal/: Yes: Renal Inusuff Psych: Yes: Depression Endocrine: Yes: Diabetes Mellitus Dermatology: Yes: Other (varicose veins) - Alcohol/Substance Use Hx Alcohol Use: No History of Substance Use: reports: None - Smoking History Smoking history: Former smoker Have you smoked in the past 12 months: No If you are a former smoker, when did you quit?: 1996 - Social History ADL: Independent History of Recent Travel: Yes (to [place] in past 2 weeks ) Home Medications - Allergies Allergies/Adverse Reactions: Allergies Allergy/AdvReac Type Severity Reaction Status Date / Time No Known Allergies Allergy Verified 07/21/17 14:19 - Home Medications Home Medications: Ambulatory Orders Albuterol Sulfate Inhaler - [Ventolin HFA Inhaler -] 2 puff PO QID PRN 06/07/15 Aspirin [Aspirin EC] 81 mg PO DAILY 06/07/15 Enalapril Maleate [Vasotec -] 20 mg PO DAILY 06/07/15 Insulin Glargine,Hum.rec.anlog [Lantus (10mL VIAL) -] 40 unit SQ HS 06/07/15 Salmeterol/Fluticasone [Advair 100Mcg/50Mcg -] 1 puff PO BID 06/07/15 Sertraline HCl 50 mg PO DAILY 06/07/15 metFORMIN HCL [Metformin HCl] 1,000 mg PO BID 06/07/15 Acetaminophen [Tylenol .Regular Strength -] 650 mg PO Q6H PRN #0 tablet Methadone [Dolophine -] 70 mg PO DAILY 01/30/16 Family Disease History - Family Disease History Family Disease History: Other: Mother (asthma ) Review of Systems - Review of Systems Constitutional: reports: Malaise Eyes: reports: No Symptoms HENT: reports: No Symptoms Neck: reports: No Symptoms Cardiovascular: reports: Chest Pain. denies: Edema Respiratory: reports: SOB on Exertion Gastrointestinal: reports: No Symptoms Genitourinary: reports: No Symptoms Musculoskeletal: reports: Other (left and leg numbness) Endocrine: reports: No Symptoms Psychiatric: reports: No Symptoms Physical Exam Vital Signs: Vital Signs Temperature 98.4 F 07/21/18 14:00 Pulse Rate 61 07/21/18 14:00 Respiratory Rate 17 07/21/18 09:00 Blood Pressure 151/78 07/21/18 14:00 O2 Sat by Pulse Oximetry (%) 96 07/21/18 09:00 Constitutional: Yes: Calm Eyes: Yes: Conjunctiva Clear HENT: Yes: Atraumatic Cardiovascular: Yes: S1, S2 Respiratory: Yes: CTA Bilaterally Gastrointestinal: Yes: Soft Renal/: Yes: WNL Edema: Yes Neurological: Yes: Oriented Psychiatric: Yes: Oriented Labs: CBC, BMP 07/21/18 05:30 07/21/18 05:30 Laboratory Tests 07/22/17 10/13/17 07/20/18 05:35 10:45 11:48 WBC Hgb Creatinine 1.0 1.5 H D 1.7 H Urine Protein Urine Blood 07/20/18 07/21/18 07/21/18 12:55 05:30 05:30 WBC 9.8 Hgb 11.9 Creatinine 2.1 H Urine Protein 2+ H Urine Blood Negative Imaging - Results Chest X-ray: Report Reviewed Cat Scan: Report Reviewed Problem List - Problems (1) DARIO (acute kidney injury) Code(s): N17.9 - ACUTE KIDNEY FAILURE, UNSPECIFIED (2) Chest pain Code(s): R07.9 - CHEST PAIN, UNSPECIFIED (3) Left sided numbness Code(s): R20.0 - ANESTHESIA OF SKIN (4) Malignancy Code(s): C80.1 - MALIGNANT (PRIMARY) NEOPLASM, UNSPECIFIED Assessment/Plan Current Medications Generic Name Dose Route Start Last Admin Trade Name Freq PRN Reason Stop Dose Admin Aspirin 81 mg 07/21/18 10:00 07/21/18 10:01 Ecotrin - PO 81 mg DAILY YAKOV Administration Heparin Sodium (Porcine) 5,000 unit 07/20/18 22:00 07/21/18 13:16 Heparin - SQ 5,000 unit TID YKAOV Administration Insulin Aspart 1 vial 07/20/18 22:00 07/21/18 16:19 Novolog Vial Sliding Scale - SQ Not Given ACHS [facility] Protocol Insulin Detemir 40 units 07/20/18 22:00 07/20/18 22:18 Levemir Vial SQ 40 units HS YAKOV Administration Methadone HCl 40 mg/ Methadone 70 mg 07/21/18 06:00 07/21/18 06:50 HCl 30 mg PO 70 mg 0600 YAKOV Administration Metoprolol Tartrate 25 mg 07/20/18 15:20 07/21/18 10:01 Lopressor - PO 25 mg BID YAKOV Administration Nifedipine 60 mg 07/21/18 15:15 07/21/18 15:30 Procardia Xl - PO 60 mg DAILY YAKOV Administration Nitroglycerin 0.4 mg 07/21/18 06:13 07/21/18 06:23 Nitrostat - SL 0.4 mg Q5M PRN Administration FOR CHEST PAIN Ranitidine HCl 150 mg 07/20/18 16:45 07/21/18 10:01 Zantac - PO 150 mg DAILY YAKOV Administration Fluticasone/Salmeterol 1 puff 07/20/18 22:00 07/21/18 10:01 Advair 100mcg/50mcg - IH 1 puff BID YAKOV Administration Sertraline HCl 50 mg 07/21/18 10:00 07/21/18 10:01 Zoloft - PO 50 mg DAILY YAKOV Administration Impression 1. DARIO 2. CKD 3. chest pain 4. htn 5. DM 6. 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 Plan - FENa is about 2.3 - will send renal workup - check spep - check kappa and lambda with ratio - send rt to brush sander ration - check renal ultrasound - repeat labs in am - pt also received contrast which may have affected his renal function. Will monitor brush sander - will follow Dr Cates
[2018-07-21] MEDS ORDERED: PT OWN MED DRAWER 7, Y5N ONE (21:44)
[2018-07-21] MEDS: INSULIN (LEVEMIR) 100 UNITS/ML UNITS SQ SCH (21:50)
[2018-07-22] MEDS: INSULIN SLIDING SCALE (NOVOLOG) 1 VIAL SQ SCH ×4 (06:11→22:04)
[2018-07-22] MEDS ORDERED: METHADONE HCL 10 MG TABLET ONE (06:13)
[2018-07-22] MEDS ORDERED: METHADONE HCL 40 MG DISPERSABLE TABLET ONE (06:13)
[2018-07-22] MEDS: METHADONE 40 MG, METHADONE 30 MG PO SCH (06:14)
[2018-07-22] MEDS: HEPARIN NA (PORCINE) 5,000 UNITS/ML 1ML VIAL SQ SCH ×3 (06:15→22:02)
[2018-07-22 06:40] LABS: HEMATOCRIT 32.3 % (35.4-49); HEMOGLOBIN 10.5 GM/dL (11.7-16.9); MCH 26.9 pg (25.7-33.7); MCHC 32.6 g/dl (32.0-35.9); MEAN CELL VOLUME 82.5 fl (80-96); MEAN PLT VOLUME 7.3 fl (7.5-11.1); PLATELET COUNT 241 K/MM3 (134-434); RBC 3.91 M/mm3 (4.00-5.60); RDW 13.8 % (11.9-15.9)
[2018-07-22 07:40] LABS: ALBUMIN 2.8 g/dl (3.4-5.0); ALK PHOS 65 U/L (45-117); ANION GAP 10 MMOL/L (8-16); BILIRUBIN,TOTAL 0.2 mg/dL (0.2-1); BLOOD UREA NITROGEN 47 mg/dL (7-18); CALCIUM 8.5 mg/dL (8.5-10.1); CHLORIDE 99 mmol/L (98-107); CO2 26 mmol/L (21-32); CREATININE 2.6 mg/dL (0.55-1.3); GLUCOSE,RANDOM 70 mg/dL (74-106); POTASSIUM 4.5 mmol/L (3.5-5.1); SGOT/AST 13 U/L (15-37); SGPT/ALT 12 U/L (13-61); SODIUM 135 mmol/L (136-145); TOT PROT 6.2 g/dl (6.4-8.2)
[2018-07-22] MEDS ORDERED: PT OWN MED DRAWER 7, Y5N ONE (09:54)
[2018-07-22] MEDS: NIFEdipine E.R 60 MG TABLET (UD) PO SCH (11:24)
[2018-07-22] MEDS: METOPROLOL TARTRATE 25 MG TABLET (FP) PO SCH ×2 (11:25→22:02)
[2018-07-22] MEDS: SERTRALINE HCL 25 MG TABLET (FP) PO SCH (11:25)
[2018-07-22] MEDS: RANITIDINE HCL 150 MG TABLET (FP) PO SCH (11:25)
[2018-07-22] MEDS: ASPIRIN COATED 81 MG TABLET.EC PO SCH (11:25)
[2018-07-22] MEDS: FLUTICASONE/SALMETEROL 100 MCG/50 MCG DISKUS IH SCH ×2 (11:26→22:05)
[2018-07-22] MEDS ORDERED: MAG HYDROX/AL HYDROX/SIMETH 30 ML UNIT-DOSE CUP PO PRN (12:56)
[2018-07-22] MEDS: busPIRone HCL 5 MG TABLET PO SCH ×2 (15:05→22:05)
--- NOTE | 2018-07-22 15:36 | PN ---
Physical Exam: SUBJECTIVE: Patient seen and examined. He complains of fatigue and SOB with exertion. OBJECTIVE: Vital Signs Period Temp Pulse Resp BP Sys/Andre Pulse Ox Last 24 Hr 97.6 F-98.4 F 54-72 18-20 110-147/60-75 94-94 GENERAL: The patient is awake, alert, and fully oriented, in no acute distress. LUNGS: Breath sounds equal, bilateral crackles, no accessory muscle use. HEART: Regular rate and rhythm, S1, S2 without murmur, rub or gallop. ABDOMEN: Obese, soft, nontender, nondistended, normoactive bowel sounds, no guarding, no rebound, no hepatosplenomegaly, no masses. EXTREMITIES: 2+ pulses, warm, well-perfused, no edema. SKIN: Warm, dry, normal turgor. (+) non-tender, mobile, round, flat, rubbery subcutaneous nodule of right anterior chest wall Laboratory Results - last 24 hr 07/21/18 07/21/18 07/21/18 16:18 18:23 21:49 WBC RBC Hgb Hct MCV MCH MCHC RDW Plt Count MPV Sodium Potassium Chloride Carbon Dioxide Anion Gap BUN Creatinine Creat Clearance w eGFR POC Glucometer 147 101 173 Random Glucose Calcium Magnesium Total Bilirubin AST ALT Alkaline Phosphatase Total Protein Albumin 07/22/18 07/22/18 07/22/18 05:21 05:30 05:30 WBC 9.0 RBC 3.91 L Hgb 10.5 L Hct 32.3 L MCV 82.5 MCH 26.9 MCHC 32.6 RDW 13.8 Plt Count 241 MPV 7.3 L D Sodium 135 L Potassium 4.5 Chloride 99 Carbon Dioxide 26 Anion Gap 10 BUN 47 H Creatinine 2.6 H Creat Clearance w eGFR 24.98 POC Glucometer 80 Random Glucose 70 L Calcium 8.5 Magnesium 2.0 Total Bilirubin 0.2 AST 13 L ALT 12 L Alkaline Phosphatase 65 Total Protein 6.2 L Albumin 2.8 L 07/22/18 11:33 WBC RBC Hgb Hct MCV MCH MCHC RDW Plt Count MPV Sodium Potassium Chloride Carbon Dioxide Anion Gap BUN Creatinine Creat Clearance w eGFR POC Glucometer 113 Random Glucose Calcium Magnesium Total Bilirubin AST ALT Alkaline Phosphatase Total Protein Albumin Active Medications Generic Name Dose Route Start Last Admin Trade Name Freq PRN Reason Stop Dose Admin Al Hydroxide/Mg Hydroxide 30 ml 07/22/18 12:56 07/22/18 15:05 Mylanta Oral Suspension - PO 30 ml Q6H PRN Administration DYSPEPSIA Aspirin 81 mg 07/21/18 10:00 07/22/18 11:25 Ecotrin - PO 81 mg DAILY YAKOV Administration Buspirone HCl 15 mg 07/22/18 13:00 07/22/18 15:05 Buspar - PO 15 mg BID YAKOV Administration Heparin Sodium (Porcine) 5,000 unit 07/20/18 22:00 07/22/18 14:02 Heparin - SQ 5,000 unit TID YAKOV Administration Insulin Aspart 1 vial 07/20/18 22:00 07/22/18 11:34 Novolog Vial Sliding Scale - SQ Not Given ACHS [facility] Protocol Insulin Detemir 40 units 07/20/18 22:00 07/21/18 21:50 Levemir Vial SQ 40 units HS YAKOV Administration Methadone HCl 40 mg/ Methadone 70 mg 07/21/18 06:00 07/22/18 06:14 HCl 30 mg PO 70 mg 0600 YAKOV Administration Metoprolol Tartrate 25 mg 07/20/18 15:20 07/22/18 11:25 Lopressor - PO 25 mg BID YAKOV Administration Nifedipine 60 mg 07/21/18 15:15 07/22/18 11:24 Procardia Xl - PO 60 mg DAILY YAKOV Administration Nitroglycerin 0.4 mg 07/21/18 06:13 07/21/18 06:23 Nitrostat - SL 0.4 mg Q5M PRN Administration FOR CHEST PAIN Ranitidine HCl 150 mg 07/20/18 16:45 07/22/18 11:25 Zantac - PO 150 mg DAILY YAKOV Administration Fluticasone/Salmeterol 1 puff 07/20/18 22:00 07/22/18 11:26 Advair 100mcg/50mcg - IH 1 puff BID YAKOV Administration Sertraline HCl 50 mg 07/21/18 10:00 07/22/18 11:25 Zoloft - PO 50 mg DAILY YAKOV Administration ASSESSMENT/PLAN: This is a 62 year old man with a history of HTN, hyperlipidemia, type 2 DM, diabetic foot ulcers, asthma, PAD, hepatitis C, depression, opioid dependence who presented to the ED with chest pain, palpitations, headache, and weakness of his left arm and leg, and was found to have BP 227/110. 1. Hypertensive emergency - Improved 2. HTN, uncontrolled with hypertensive cardiomyopathy - Continue Procardia, Lopressor - Enalapril disocntinued secondary to DARIO - Echo showed normal size LV with mildly reduced systolic function and mild global hypokinesis, normal RV, trace TR 3. Acute kidney injury on probable stage 3 CKD - Creatinine increasing - Possible contrast-induced nephropathy - Metformin, enalapril discontinued - Renal US shows normal kidneys - Nephrology consult appreciated 4. 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 Hypercalcemia has improved, but patient now has anemia. - SPEP, UPEP pending - ESR 60 - Check PSA 5. Right chest subcutaneous lesion - Surgery consult for excision 6. Hyponatremia - Improved 7. Hypercalcemia - Corrected calcium is 9.5 8. Hypomagnesemia - Improved 9. Hyperlipidemia 10. Type 2 DM - Continue Levemir, Novolog sliding scale - Metformin discontinued secondary to DARIO 11. Depression - Continue Zoloft 12. Opioid dependence - Continue methadone 13. Asthma - Stable - Continue Advair - Albuterol as needed 14. History of hepatitis C 15. Obesity with BMI 31.7 Visit type - Emergency Visit Emergency Visit: Yes ED Registration Date: 07/20/18 Care time: The patient presented to the Emergency Department on the above date and was hospitalized for further evaluation of their emergent condition. - New Patient This patient is new to me today: No - Critical Care Critical Care patient: No - Discharge Referral Referred to [facility] Med P.C.: No
--- NOTE | 2018-07-22 15:44 | PN ---
Progress Note, Physician History of Present Illness: Pt seen and examined at bedside. He is awake and appears comfortable. He denies shortness of breath. He denies dysuria. - Current Medication List Current Medications: Active Medications Al Hydroxide/Mg Hydroxide (Mylanta Oral Suspension -) 30 ml PO Q6H PRN PRN Reason: DYSPEPSIA Last Admin: 07/22/18 15:05 Dose: 30 ml Aspirin (Ecotrin -) 81 mg PO DAILY [facility] Last Admin: 07/22/18 11:25 Dose: 81 mg Buspirone HCl (Buspar -) 15 mg PO BID [facility] Last Admin: 07/22/18 15:05 Dose: 15 mg Heparin Sodium (Porcine) (Heparin -) 5,000 unit SQ TID [facility] Last Admin: 07/22/18 14:02 Dose: 5,000 unit Insulin Aspart (Novolog Vial Sliding Scale -) 1 vial SQ ACHS [facility]; Protocol Last Admin: 07/22/18 11:34 Dose: Not Given Insulin Detemir (Levemir Vial) 40 units SQ HS [facility] Last Admin: 07/21/18 21:50 Dose: 40 units Methadone HCl 40 mg/ Methadone (HCl 30 mg) 70 mg PO 0600 [facility] Last Admin: 07/22/18 06:14 Dose: 70 mg Metoprolol Tartrate (Lopressor -) 25 mg PO BID [facility] Last Admin: 07/22/18 11:25 Dose: 25 mg Nifedipine (Procardia Xl -) 60 mg PO DAILY [facility] Last Admin: 07/22/18 11:24 Dose: 60 mg Nitroglycerin (Nitrostat -) 0.4 mg SL Q5M PRN PRN Reason: FOR CHEST PAIN Last Admin: 07/21/18 06:23 Dose: 0.4 mg Ranitidine HCl (Zantac -) 150 mg PO DAILY [facility] Last Admin: 07/22/18 11:25 Dose: 150 mg Fluticasone/Salmeterol (Advair 100mcg/50mcg -) 1 puff IH BID [facility] Last Admin: 07/22/18 11:26 Dose: 1 puff Sertraline HCl (Zoloft -) 50 mg PO DAILY [facility] Last Admin: 07/22/18 11:25 Dose: 50 mg - Objective Vital Signs: Vital Signs Temperature 98.1 F 07/22/18 14:00 Pulse Rate 62 07/22/18 14:00 Respiratory Rate 18 07/22/18 09:00 Blood Pressure 111/60 07/22/18 14:00 O2 Sat by Pulse Oximetry (%) 94 L 07/22/18 09:00 Constitutional: Yes: Calm Eyes: Yes: Conjunctiva Clear HENT: Yes: Atraumatic Cardiovascular: Yes: S1, S2 Respiratory: Yes: CTA Bilaterally Gastrointestinal: Yes: Normal Bowel Sounds, Soft Genitourinary: Yes: WNL Musculoskeletal: Yes: WNL Edema: Yes Edema: LLE: Trace, RLE: Trace Neurological: Yes: Oriented Psychiatric: Yes: Oriented Labs: CBC, BMP 07/22/18 05:30 07/22/18 05:30 INR, PTT INR 1.06 (0.83-1.09) 07/20/18 11:48 Problem List - Problems (1) DARIO (acute kidney injury) Code(s): N17.9 - ACUTE KIDNEY FAILURE, UNSPECIFIED (2) Chest pain Code(s): R07.9 - CHEST PAIN, UNSPECIFIED (3) Left sided numbness Code(s): R20.0 - ANESTHESIA OF SKIN (4) Malignancy Code(s): C80.1 - MALIGNANT (PRIMARY) NEOPLASM, UNSPECIFIED Assessment/Plan Current Medications Generic Name Dose Route Start Last Admin Trade Name Freq PRN Reason Stop Dose Admin Al Hydroxide/Mg Hydroxide 30 ml 07/22/18 12:56 07/22/18 15:05 Mylanta Oral Suspension - PO 30 ml Q6H PRN Administration DYSPEPSIA Aspirin 81 mg 07/21/18 10:00 07/22/18 11:25 Ecotrin - PO 81 mg DAILY YAKOV Administration Buspirone HCl 15 mg 07/22/18 13:00 07/22/18 15:05 Buspar - PO 15 mg BID YAKOV Administration Heparin Sodium (Porcine) 5,000 unit 07/20/18 22:00 07/22/18 14:02 Heparin - SQ 5,000 unit TID YAKOV Administration Insulin Aspart 1 vial 07/20/18 22:00 07/22/18 11:34 Novolog Vial Sliding Scale - SQ Not Given ACHS [facility] Protocol Insulin Detemir 40 units 07/20/18 22:00 07/21/18 21:50 Levemir Vial SQ 40 units HS YAKOV Administration Methadone HCl 40 mg/ Methadone 70 mg 07/21/18 06:00 10/19/18 06:14 HCl 30 mg PO 70 mg 0600 YAKOV Administration Metoprolol Tartrate 25 mg 07/20/18 15:20 07/22/18 11:25 Lopressor - PO 25 mg BID YAKOV Administration Nifedipine 60 mg 07/21/18 15:15 07/22/18 11:24 Procardia Xl - PO 60 mg DAILY YAKOV Administration Nitroglycerin 0.4 mg 07/21/18 06:13 07/21/18 06:23 Nitrostat - SL 0.4 mg Q5M PRN Administration FOR CHEST PAIN Ranitidine HCl 150 mg 07/20/18 16:45 07/22/18 11:25 Zantac - PO 150 mg DAILY YAKOV Administration Fluticasone/Salmeterol 1 puff 07/20/18 22:00 07/22/18 11:26 Advair 100mcg/50mcg - IH 1 puff BID YAKOV Administration Sertraline HCl 50 mg 07/21/18 10:00 07/22/18 11:25 Zoloft - PO 50 mg DAILY YAKOV Administration Laboratory Tests 07/21/18 07/22/18 05:30 05:30 IDANIA M-Negrito Pending JEAN-PIERRE Screen Pending c-ANCA Pending Proteinase 3 (PR3) Pending p-ANCA Pending Atypical p-ANCA Pending Myeloperoxidase Ab Pending Double Strand DNA Ab Pending Glomerular Base Memb Ab Pending Free [place] LC, Quant Pending Free Lambda LC, Quant Pending Free [place]/Lambda Ratio Pending Impression 1. DARIO 2. CKD 3. chest pain 4. htn 5. DM 6. 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 Plan - renal function is worsening - will continue to monitor renal function closely - renal workup is in progress - renal ultrasound reviewed - LEFTY still in differential, will follow Dr Cates
--- NOTE | 2018-07-22 15:59 | PN ---
Progress Note, Physician Chief Complaint: The patient appears comfortable. He has no recurrent palpitation. He reports no chest pain or palpitation. Tele shows sinus rhythms in low 60s. No arrhythmia noted. History of Present Illness: 62 year old man, former smoker, with a PMHx of HTN, HLD, DM-II, PAD, diabetic foot ulcer, PVD, HCV s/p harvoni, h/o opiod abuse on methadone admitted with chest pain, L arm L leg numbness and weakness, palpitations, headache found to have severely uncontrolled HTN, mildly elevated troponin, elevated creatinine, ekg c/w ischemia. Stable since admission without recurrent chest pain. BP control improved. Troponin is trending down. But renal function worsened. Echocardiogram 07/21/2018 showed normal LV size with mild global LV hypokinesis. LVEF 45-50%. Normal RV. Normal LA and RA in size. No significant valvular abnormalities. - Current Medication List Current Medications: Active Medications Al Hydroxide/Mg Hydroxide (Mylanta Oral Suspension -) 30 ml PO Q6H PRN PRN Reason: DYSPEPSIA Last Admin: 07/22/18 15:05 Dose: 30 ml Aspirin (Ecotrin -) 81 mg PO DAILY [facility] Last Admin: 07/22/18 11:25 Dose: 81 mg Buspirone HCl (Buspar -) 15 mg PO BID [facility] Last Admin: 07/22/18 15:05 Dose: 15 mg Heparin Sodium (Porcine) (Heparin -) 5,000 unit SQ TID [facility] Last Admin: 07/22/18 14:02 Dose: 5,000 unit Insulin Aspart (Novolog Vial Sliding Scale -) 1 vial SQ [facility]; Protocol Last Admin: 07/22/18 11:34 Dose: Not Given Insulin Detemir (Levemir Vial) 40 units SQ [facility] Last Admin: 07/21/18 21:50 Dose: 40 units Methadone HCl 40 mg/ Methadone (HCl 30 mg) 70 mg PO 0600 [facility] Last Admin: 07/22/18 06:14 Dose: 70 mg Metoprolol Tartrate (Lopressor -) 25 mg PO BID [facility] Last Admin: 07/22/18 11:25 Dose: 25 mg Nifedipine (Procardia Xl -) 60 mg PO DAILY [facility] Last Admin: 07/22/18 11:24 Dose: 60 mg Nitroglycerin (Nitrostat -) 0.4 mg SL Q5M PRN PRN Reason: FOR CHEST PAIN Last Admin: 07/21/18 06:23 Dose: 0.4 mg Ranitidine HCl (Zantac -) 150 mg PO DAILY [facility] Last Admin: 07/22/18 11:25 Dose: 150 mg Fluticasone/Salmeterol (Advair 100mcg/50mcg -) 1 puff IH BID [facility] Last Admin: 07/22/18 11:26 Dose: 1 puff Sertraline HCl (Zoloft -) 50 mg PO DAILY [facility] Last Admin: 07/22/18 11:25 Dose: 50 mg - Objective Vital Signs: Vital Signs Temperature 98.1 F 07/22/18 14:00 Pulse Rate 62 07/22/18 14:00 Respiratory Rate 18 07/22/18 09:00 Blood Pressure 111/60 07/22/18 14:00 O2 Sat by Pulse Oximetry (%) 94 L 07/22/18 09:00 General: Well developed. Well nourished. No acute distress. Head: Normocephalic. Atraumatic, Eyes: PERRLA, EOMI. Sclerae anicteric. Conjunctivae clear. Neck: Supple. No JVD. No bruits. Heart: Normal S1, S2: Regular rhythm and rate. No murmur. No gallop or rub. Lungs: Symmetrical air entry. Clear to auscultation. No crackles. No wheezing or rhonchi. Abdomen: Soft. Bowel sound positive. Non tender. No masses. Extremities: Mild stasis, trace edema. No clubbing or cyanosis. PD 2+, equal bilaterally. Neuro: Intact, no focal findings. AAO X3. Labs: CBC, BMP 07/22/18 05:30 07/22/18 05:30 INR, PTT INR 1.06 (0.83-1.09) 07/20/18 11:48 Assessment/Plan 62 year old man, former smoker, with a PMHx of HTN, HLD, DM-II, PAD, diabetic foot ulcer, PVD, HCV s/p harvoni, h/o opiod abuse on methadone admitted with chest pain, L arm L leg numbness and weakness, palpitations, headache found to have severely uncontrolled HTN, mildly elevated troponin, elevated creatinine, ekg c/w ischemia. Stable since admission without recurrent chest pain. BP control improved. Troponin is trending down. But renal function worsened. Echocardiogram 07/21/2018 showed normal LV size with mild global LV hypokinesis. LVEF 45-50%. Normal RV. Normal LA and RA in size. No significant valvular abnormalities. 1) Chest pain-in setting of severe uncontrolled HTN. -troponin minimally elevated with normal CK level, trending down now, likely due to demand ischemia. No recurrent chest pain. -No aortic dissection on CTA c/a/p -Ct head no bleed -CT suggests metastatic malignancy -Creatinine elevated. -Echo showed global LV hypokinesis without regional wall motion abnormality, suggestive of hypertensive cardiomyopathy. -Conservative cardiac care without invasive intervention at this time. -No further cardiac test recommended at this time. -Out-pt cardiac follow up with Dr. Swan. 2) Severe HTN: BP is relatively low today. -May reduce Nifedipine to 30 mg daily. -Continue metoprolol tartrate 25 mg BID (heart rate is now high between high 50s and low 60s). 3) CT suggestive of metastatic disease -possibe mult myeloma given elevated creatinine, calcium and imaging results -would have oncology evaluate for possible malignancy Please call us for reconsult as needed.
--- NOTE | 2018-07-22 19:24 | CONSULT ---
Consult Consult Specialty:: General Surgery Reason for Consultation:: excision of a subcutaneous lesion - History of Present Illness Chief Complaint: right chest wall/ breast mass History of Present Illness: 62 yo male with PMH of HTN, HLD, DM, diabetic foot ulcer, PVD, HepC s/p harvoni , and previous opioid abuse on methadone who presents to the emergency department with chest pain a/w left arm and left leg numbness since 6PM last night. Patient reports he was watching tv prior to the sudden onset of his symptoms. Patient describes the chest pain as left sided with associated left leg and arm numbness. Patient states the chest pain was at its worst last night and feels it is still there but has improved since last night. Patient is on albuterol for a recent cold and was taking his albuterol last night at 9PM when he also noticed palpitations and subsequently stopped taking his treatment. He has a gradually enlarging right chest wall/ breast mass. denies nipple discharge or skin changes. no personal history of breast cancer. We were asked to assess. - History Source History Provided By: Patient, Medical Record Limitations to Obtaining History: No Limitations - Past Medical History Cardio/Vascular: Yes: HTN, Hyperlipdemia Pulmonary: Yes: Asthma Renal/: Yes: Renal Inusuff Psych: Yes: Depression Endocrine: Yes: Diabetes Mellitus Dermatology: Yes: Other (varicose veins) - Alcohol/Substance Use Hx Alcohol Use: No History of Substance Use: reports: None - Smoking History Smoking history: Former smoker Have you smoked in the past 12 months: No If you are a former smoker, when did you quit?: 1996 - Social History ADL: Independent History of Recent Travel: Yes (to [place] in past 2 weeks ) Home Medications - Allergies Allergies/Adverse Reactions: Allergies Allergy/AdvReac Type Severity Reaction Status Date / Time No Known Allergies Allergy Verified 07/21/17 14:19 - Home Medications Home Medications: Ambulatory Orders Albuterol Sulfate Inhaler - [Ventolin HFA Inhaler -] 2 puff PO QID PRN 06/07/15 Aspirin [Aspirin EC] 81 mg PO DAILY 06/07/15 Enalapril Maleate [Vasotec -] 20 mg PO DAILY 06/07/15 Insulin Glargine,Hum.rec.anlog [Lantus (10mL VIAL) -] 40 unit SQ HS 06/07/15 Salmeterol/Fluticasone [Advair 100Mcg/50Mcg -] 1 puff PO BID 06/07/15 Sertraline HCl 50 mg PO DAILY 06/07/15 metFORMIN HCL [Metformin HCl] 1,000 mg PO BID 06/07/15 Acetaminophen [Tylenol .Regular Strength -] 650 mg PO Q6H PRN #0 tablet Methadone [Dolophine -] 70 mg PO DAILY 01/30/16 Buspirone HCl 15 mg PO BID 07/22/18 Family Disease History - Family Disease History Family Disease History: Other: Mother (asthma ) Review of Systems - Review of Systems Constitutional: denies: Chills, Fever, Unintentional Wgt. Loss Eyes: denies: Blind Spots, Recent Change in Vision HENT: denies: Difficult Swallowing, Throat Pain Neck: denies: Pain on Movement, Tenderness Cardiovascular: reports: Chest Pain, Palpitations Respiratory: denies: Cough, SOB Gastrointestinal: denies: Abdominal Pain, Diarrhea, Rectal Bleeding Genitourinary: denies: Burning, Discharge, Dysuria, Testicular Swelling Breasts: reports: No Symptoms Reported. denies: Pain Musculoskeletal: denies: Muscle Pain, Muscle Weakness Integumentary: denies: Erythema, Lesions, Pruritis Neurological: denies: Seizure, Syncope Endocrine: denies: Unexplained Weight Gain, Unexplained Weight Loss Hematology/Lymphatic: denies: Easily Bruised, Excessive Bleeding Psychiatric: denies: Anxiety, Depression Physical Exam Vital Signs: Vital Signs Temperature 97.9 F 07/22/18 17:00 Pulse Rate 59 L 07/22/18 17:00 Respiratory Rate 20 07/22/18 17:00 Blood Pressure 109/56 L 07/22/18 17:00 O2 Sat by Pulse Oximetry (%) 94 L 07/22/18 09:00 Constitutional: Yes: Well Nourished, No Distress, Calm, Obese Eyes: Yes: Conjunctiva Clear, EOM Intact HENT: Yes: Atraumatic, Normocephalic Neck: Yes: Supple, Trachea Midline Cardiovascular: Yes: Regular Rate and Rhythm, S1, S2 Respiratory: Yes: Regular, CTA Bilaterally Gastrointestinal: Yes: Normal Bowel Sounds, Soft ...Rectal Exam: Yes: Deferred Renal/: No: CVA Tenderness - Left, CVA Tenderness - Right Musculoskeletal: No: Muscle Pain, Muscle Weakness Extremities: No: Cool, Cyanosis Edema: No Peripheral Pulses WNL: Yes Integumentary: Yes: Other (2cm mass upper inner right breast. firm and rubbery. ) Wound/Incision: Yes: Clean/Dry, Well Approximated Neurological: Yes: Alert, Oriented Psychiatric: Yes: Alert, Oriented Labs: CBC, BMP 07/22/18 05:30 07/22/18 05:30 Imaging - Results Cat Scan: Report Reviewed (enhancing right upper inner breat mass, subcutaneous) , Image Reviewed Other: Pending (Mammogram diagonistic on right and screening bilateral) Problem List - Problems (1) Mass of right breast Assessment/Plan: 62yo male MMP with enjarging palpable right (upper inner quadrant)breast mass. appears enhanging on the CTscan chest. Diagnostic and screening mamograpy Excisional biopsy this week Discussed with patient risks, benefits and alternatives of aforementioned procedure, including but not limited to bleeding, infection, injury to adjacent structures, scar, need for further procedures, ; alternatives include antibiotics, delayed or no surgery - risks of this include failure of nonoperative therapy, recurrence, . Patient desires to proceed with operation - will take to OR for above. Informed consent signed for same. Thank you for the opportunity to participate in the care of this patient. Code(s): N63.10 - UNSPECIFIED LUMP IN THE RIGHT BREAST, UNSPECIFIED QUADRANT (2) Asthma Code(s): J45.909 - UNSPECIFIED ASTHMA, UNCOMPLICATED (3) Depression Code(s): F32.9 - MAJOR DEPRESSIVE DISORDER, SINGLE EPISODE, UNSPECIFIED (4) Diabetes Code(s): E11.9 - TYPE 2 DIABETES MELLITUS WITHOUT COMPLICATIONS Qualifiers: Diabetes mellitus complication status: with neurologic complications Diabetes mellitus complication detail: with polyneuropathy (5) Hepatitis C Code(s): B19.20 - UNSPECIFIED VIRAL HEPATITIS C WITHOUT HEPATIC COMA (6) Hypertension Code(s): I10 - ESSENTIAL (PRIMARY) HYPERTENSION
[2018-07-22] MEDS ORDERED: ALBUTEROL SO4 0.083% IH SOL 2.5 MG/3 ML VIAL.NEB. NEB PRN (21:22)
[2018-07-22] MEDS: INSULIN (LEVEMIR) 100 UNITS/ML UNITS SQ SCH (22:02)
[2018-07-23] MEDS ORDERED: METHADONE HCL 40 MG DISPERSABLE TABLET ONE (05:17)
[2018-07-23] MEDS ORDERED: METHADONE HCL 10 MG TABLET ONE (05:18)
[2018-07-23] MEDS: INSULIN SLIDING SCALE (NOVOLOG) 1 VIAL SQ SCH ×4 (06:08→22:15)
[2018-07-23] MEDS: METHADONE 40 MG, METHADONE 30 MG PO SCH (06:12)
[2018-07-23] MEDS: HEPARIN NA (PORCINE) 5,000 UNITS/ML 1ML VIAL SQ SCH ×3 (06:13→22:13)
[2018-07-23 06:34] LABS: BASO % 0.3 % (0-2.0); EOS % 4.4 % (0-4.5); HEMATOCRIT 33.4 % (35.4-49); HEMOGLOBIN 10.8 GM/dL (11.7-16.9); LYMPH % 36.2 % (8-40); MCH 26.5 pg (25.7-33.7); MCHC 32.5 g/dl (32.0-35.9); MEAN CELL VOLUME 81.6 fl (80-96); MONO % 5.3 % (3.8-10.2); NEUT % 53.8 % (42.8-82.8); PLATELET COUNT 245 K/MM3 (134-434); RBC 4.09 M/mm3 (4.00-5.60); WHITE BLOOD COUNT 8.1 K/mm3 (4.0-10.0)
[2018-07-23 07:21] LABS: ANION GAP 8 MMOL/L (8-16); BLOOD UREA NITROGEN 46 mg/dL (7-18); CALCIUM 8.6 mg/dL (8.5-10.1); CHLORIDE 98 mmol/L (98-107); CO2 28 mmol/L (21-32); CREATININE 2.5 mg/dL (0.55-1.3); GLUCOSE,RANDOM 66 mg/dL (74-106); POTASSIUM 4.2 mmol/L (3.5-5.1); SODIUM 134 mmol/L (136-145)
[2018-07-23 08:06] LABS: HBSAG SCREEN Negative (Negative); HEP B CORE AB, TOT Positive (Negative)
[2018-07-23] MEDS: METOPROLOL TARTRATE 25 MG TABLET (FP) PO SCH ×2 (09:34→22:12)
[2018-07-23] MEDS: ASPIRIN COATED 81 MG TABLET.EC PO SCH (09:34)
[2018-07-23] MEDS: NIFEdipine E.R. 30 MG TABLET (FP) PO SCH (09:34)
[2018-07-23] MEDS: RANITIDINE HCL 150 MG TABLET (FP) PO SCH (09:34)
[2018-07-23] MEDS: SERTRALINE HCL 25 MG TABLET (FP) PO SCH (09:34)
[2018-07-23] MEDS: busPIRone HCL 5 MG TABLET PO SCH ×2 (09:43→22:12)
[2018-07-23] MEDS: FLUTICASONE/SALMETEROL 100 MCG/50 MCG DISKUS IH SCH (10:37)
--- NOTE | 2018-07-23 13:18 | PN ---
Physical Exam: SUBJECTIVE: Patient seen and examined. He complains of shortness of breath. OBJECTIVE: Vital Signs Period Temp Pulse Resp BP Sys/Andre Pulse Ox Last 24 Hr 97.5 F-98.1 F 59-76 18-20 109-152/54-82 97-98 GENERAL: The patient is awake, alert, and fully oriented, mild dyspnea at rest. LUNGS: Breath sounds decreased bilaterally, no wheezes, no crackles, no accessory muscle use. HEART: Regular rate and rhythm, S1, S2 without murmur, rub or gallop. ABDOMEN: Obese, soft, nontender, nondistended, normoactive bowel sounds, no guarding, no rebound, no hepatosplenomegaly, no masses. EXTREMITIES: 2+ pulses, warm, well-perfused, no edema. Laboratory Results - last 24 hr 07/22/18 07/22/18 07/22/18 05:30 16:47 21:45 WBC RBC Hgb Hct MCV MCH MCHC RDW Plt Count MPV Absolute Neuts (auto) Neutrophils % Lymphocytes % Monocytes % Eosinophils % Basophils % Nucleated RBC % Sodium Potassium Chloride Carbon Dioxide Anion Gap BUN Creatinine Creat Clearance w eGFR POC Glucometer 149 179 Random Glucose Calcium Hepatitis A Ab Total Negative Hep Bs Antigen Negative Hep Bs Antibody Reactive Hep B Core Total Ab Positive H 07/23/18 07/23/18 07/23/18 05:30 05:30 06:07 WBC 8.1 RBC 4.09 Hgb 10.8 L Hct 33.4 L MCV 81.6 MCH 26.5 MCHC 32.5 RDW 14.0 Plt Count 245 MPV 7.0 L Absolute Neuts (auto) 4.4 Neutrophils % 53.8 D Lymphocytes % 36.2 D Monocytes % 5.3 D Eosinophils % 4.4 D Basophils % 0.3 Nucleated RBC % 0 Sodium 134 L Potassium 4.2 Chloride 98 Carbon Dioxide 28 Anion Gap 8 BUN 46 H Creatinine 2.5 H Creat Clearance w eGFR 26.13 POC Glucometer 84 Random Glucose 66 L Calcium 8.6 Hepatitis A Ab Total Hep Bs Antigen Hep Bs Antibody Hep B Core Total Ab 07/23/18 11:35 WBC RBC Hgb Hct MCV MCH MCHC RDW Plt Count MPV Absolute Neuts (auto) Neutrophils % Lymphocytes % Monocytes % Eosinophils % Basophils % Nucleated RBC % Sodium Potassium Chloride Carbon Dioxide Anion Gap BUN Creatinine Creat Clearance w eGFR POC Glucometer 222 Random Glucose Calcium Hepatitis A Ab Total Hep Bs Antigen Hep Bs Antibody Hep B Core Total Ab Active Medications Generic Name Dose Route Start Last Admin Trade Name Freq PRN Reason Stop Dose Admin Al Hydroxide/Mg Hydroxide 30 ml 07/22/18 12:56 07/22/18 15:05 Mylanta Oral Suspension - PO 30 ml Q6H PRN Administration DYSPEPSIA Albuterol Sulfate 1 amp 07/22/18 21:22 Ventolin 0.083% Nebulizer Soln - NEB Q4H PRN SHORT OF BREATH/WHEEZING Aspirin 81 mg 07/21/18 10:00 07/23/18 09:34 Ecotrin - PO 81 mg DAILY YAKOV Administration Buspirone HCl 15 mg 07/22/18 13:00 07/23/18 09:43 Buspar - PO 15 mg BID YAKOV Administration Heparin Sodium (Porcine) 5,000 unit 07/20/18 22:00 07/23/18 06:13 Heparin - SQ 5,000 unit TID YAKOV Administration Insulin Aspart 1 vial 07/20/18 22:00 07/23/18 11:37 Novolog Vial Sliding Scale - SQ 4 units ACHS YAKOV Administration Protocol Insulin Detemir 40 units 07/20/18 22:00 07/22/18 22:02 Levemir Vial SQ 40 units HS YAKOV Administration Methadone HCl 40 mg/ Methadone 70 mg 07/21/18 06:00 07/23/18 06:12 HCl 30 mg PO 70 mg 0600 YAKOV Administration Metoprolol Tartrate 25 mg 07/20/18 15:20 07/23/18 09:34 Lopressor - PO 25 mg BID YAKOV Administration Nifedipine 30 mg 07/23/18 10:00 07/23/18 09:34 Procardia Xl - PO 30 mg DAILY YAKOV Administration Nitroglycerin 0.4 mg 07/21/18 06:13 07/21/18 06:23 Nitrostat - SL 0.4 mg Q5M PRN Administration FOR CHEST PAIN Ranitidine HCl 150 mg 07/20/18 16:45 07/23/18 09:34 Zantac - PO 150 mg DAILY YAKOV Administration Fluticasone/Salmeterol 1 puff 07/20/18 22:00 07/23/18 10:37 Advair 100mcg/50mcg - IH 1 puff BID YAKOV Administration Sertraline HCl 50 mg 07/21/18 10:00 07/23/18 09:34 Zoloft - PO 50 mg DAILY YAKOV Administration ASSESSMENT/PLAN: This is a 62 year old man with a history of HTN, hyperlipidemia, type 2 DM, diabetic foot ulcers, asthma, PAD, hepatitis C, depression, opioid dependence who presented to the ED with chest pain, palpitations, headache, and weakness of his left arm and leg, and was found to have BP 227/110. 1. Hypertensive emergency - Improved 2. HTN, uncontrolled with hypertensive cardiomyopathy - Continue Procardia, Lopressor - Enalapril discontinued secondary to DARIO - Echo showed normal size LV with mildly reduced systolic function and mild global hypokinesis, normal RV, trace TR 3. Acute kidney injury on probable stage 3 CKD - BUN and creatinine are stable - Renal work-up pending - Possible contrast-induced nephropathy - Metformin, enalapril discontinued - Renal US shows normal kidneys 4. 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 Hypercalcemia has improved, but patient now has anemia. - SPEP, UPEP, PSA pending - ESR 60 - Heme/onc consult 5. Right chest subcutaneous lesion - Surgery consult for excision 6. Hyponatremia, mild - Continue to monitor sodium 7. Hypercalcemia - Corrected calcium is 9.5 8. Hypomagnesemia - Improved 9. Hyperlipidemia 10. Type 2 DM - Continue Levemir, Novolog sliding scale - Metformin discontinued secondary to DARIO 11. Depression - Continue Zoloft 12. Opioid dependence - Continue methadone 13. Asthma, probable COPD - Continue Advair, Albuterol nebs as needed - Pulmonary consult 14. History of hepatitis C 15. Obesity with BMI 31.7 Visit type - Emergency Visit Emergency Visit: Yes ED Registration Date: 07/20/18 Care time: The patient presented to the Emergency Department on the above date and was hospitalized for further evaluation of their emergent condition. - New Patient This patient is new to me today: No - Critical Care Critical Care patient: No - Discharge Referral Referred to [facility] No
--- NOTE | 2018-07-23 16:44 | PN ---
Progress Note (short form) - Note Progress Note: PULMONARY CONSULTATION DICTATED 07/23/18 IMP DYSPNEA LIKELY SECONDARY TO COPD/ASTHMA S/P HYPERTENSIVE EMERGENCY ACUTE ON CHRONIC KIDNEY DISEASE DM OSTEOLYTIC LESIONS CP + TROPONIN LIKELY OSAS PLAN INHALED BRONCHODILATORS O2 CHECK O2 SAT WITH EXERTION ON RA PFTS OUTPATIENTS CONSIDER ONCOLOGY EVALUATION SLEEP SCREEN DR WAGNER Problem List - Problems (1) Hypertensive emergency Code(s): I16.1 - HYPERTENSIVE EMERGENCY (2) Chest pain Code(s): R07.9 - CHEST PAIN, UNSPECIFIED (3) Type 2 diabetes mellitus with foot ulcer Code(s): E11.621 - TYPE 2 DIABETES MELLITUS WITH FOOT ULCER; L97.509 - NON- PRESSURE CHRONIC ULCER OTH PRT UNSP FOOT W UNSP SEVERITY Qualifiers: (4) Asthma Code(s): J45.909 - UNSPECIFIED ASTHMA, UNCOMPLICATED (5) Hepatitis C Code(s): B19.20 - UNSPECIFIED VIRAL HEPATITIS C WITHOUT HEPATIC COMA (6) Hypertension Code(s): I10 - ESSENTIAL (PRIMARY) HYPERTENSION (7) Dyspnea Code(s): R06.00 - DYSPNEA, UNSPECIFIED (8) Troponin I above reference range Code(s): R74.8 - ABNORMAL LEVELS OF OTHER SERUM ENZYMES
[2018-07-23] MEDS: TIOTROPIUM BROMIDE 2.5 MCG (SPIRIVA) RESPIMAT INHALER IH SCH ×3 (18:32→18:47)
--- NOTE | 2018-07-23 19:59 | PN ---
Progress Note (short form) - Note Progress Note: covering dr herndon Problems 1. DARIO 2. CKD 3. chest pain 4. htn 5. DM 6. 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 Current Medications Al Hydroxide/Mg Hydroxide (Mylanta Oral Suspension -) 30 ml PO Q6H PRN PRN Reason: DYSPEPSIA Last Admin: 07/22/18 15:05 Dose: 30 ml Albuterol Sulfate (Ventolin 0.083% Nebulizer Soln -) 1 amp NEB Q4H PRN PRN Reason: SHORT OF BREATH/WHEEZING Aspirin (Ecotrin -) 81 mg PO DAILY [facility] Last Admin: 07/23/18 09:34 Dose: 81 mg Budesonide/Formoterol Fumarate (Symbicort 80/4.5mcg -) 2 puff IH BID [facility] Buspirone HCl (Buspar -) 15 mg PO BID [facility] Last Admin: 07/23/18 09:43 Dose: 15 mg Heparin Sodium (Porcine) (Heparin -) 5,000 unit SQ TID [facility] Last Admin: 07/23/18 13:56 Dose: 5,000 unit Insulin Aspart (Novolog Vial Sliding Scale -) 1 vial SQ [facility]; Protocol Last Admin: 07/23/18 16:51 Dose: Not Given Insulin Detemir (Levemir Vial) 40 units SQ HS [facility] Last Admin: 07/22/18 22:02 Dose: 40 units Methadone HCl 40 mg/ Methadone (HCl 30 mg) 70 mg PO 0600 [facility] Last Admin: 07/23/18 06:12 Dose: 70 mg Metoprolol Tartrate (Lopressor -) 25 mg PO BID [facility] Last Admin: 07/23/18 09:34 Dose: 25 mg Nifedipine (Procardia Xl -) 30 mg PO DAILY [facility] Last Admin: 07/23/18 09:34 Dose: 30 mg Nitroglycerin (Nitrostat -) 0.4 mg SL Q5M PRN PRN Reason: FOR CHEST PAIN Last Admin: 07/21/18 06:23 Dose: 0.4 mg Ranitidine HCl (Zantac -) 150 mg PO DAILY [facility] Last Admin: 07/23/18 09:34 Dose: 150 mg Sertraline HCl (Zoloft -) 50 mg PO DAILY [facility] Last Admin: 07/23/18 09:34 Dose: 50 mg Tiotropium [place] (Spiriva Respimat) 2 puff IH DAILY YAKOV Last Admin: 07/23/18 18:47 Dose: Not Given Last Vital Signs Temp Pulse Resp BP Pulse Ox 98.3 F 81 19 138/78 97 07/23/18 17:00 07/23/18 17:00 07/23/18 17:00 07/23/18 17:00 07/23/18 09:00 in nad CBC, BMP 07/23/18 05:30 07/23/18 05:30 stable renal function Plan - renal function is worsening - will continue to monitor renal function closely - renal workup is in progress - renal ultrasound reviewed - LEFTY still in differential, will follow
[2018-07-23] MEDS ORDERED: INSULIN (NOVOLOG) ASPART 100 UNITS/ML 10ML VIAL ONE (21:35)
[2018-07-23] MEDS: INSULIN (LEVEMIR) 100 UNITS/ML UNITS SQ SCH (22:13)
[2018-07-23] MEDS: BUDESONIDE/FORMETEROL FUMARATE 80/4.5 mcg INHALER IH SCH (22:15)
--- NOTE | 2018-07-23 23:10 | CONSULT ---
Consult - text type - Consultation Consultation Note: 62 yo male with PMH of HTN, HLD, DM, diabetic foot ulcer, PVD, HepC s/p harvoni , and previous opioid abuse on methadone who presents to the emergency department with chest pain a/w left arm and left leg numbness. MRI brain was negative Hew as treated for hypertensive urgency. CTA of chest and abdomen was performed to rule out dissection. CTA revealed lytic lesion--superior pubic ramus, vertebrl bodies, ? thecal sac indentation at L3 Also with MYESHA ? interstitial infiltrate and adrenal adenomas PAtient c/o upper back pain Also noted to have renal insuffciency. Getting w/u for myeloma - Past Medical History Cardio/Vascular: Yes: HTN, Hyperlipdemia Pulmonary: Yes: Asthma Renal/: Yes: Renal Inusuff Psych: Yes: Depression Endocrine: Yes: Diabetes Mellitus Dermatology: Yes: Other (varicose veins) - Smoking History Smoking history: Former smoker - Social History ADL: Independent History of Recent Travel: Yes (to [place] in past 2 weeks ) Home Medications - Allergies Allergies/Adverse Reactions: Allergies Allergy/AdvReac Type Severity Reaction Status Date / Time No Known Allergies Allergy Verified 07/21/17 14:19 - Home Medications Home Medications: Ambulatory Orders Albuterol Sulfate Inhaler - [Ventolin HFA Inhaler -] 2 puff PO QID PRN 06/07/15 Aspirin [Aspirin EC] 81 mg PO DAILY 06/07/15 Enalapril Maleate [Vasotec -] 20 mg PO DAILY 06/07/15 Insulin Glargine,Hum.rec.anlog [Lantus (10mL VIAL) -] 40 unit SQ HS 06/07/15 Salmeterol/Fluticasone [Advair 100Mcg/50Mcg -] 1 puff PO BID 06/07/15 Sertraline HCl 50 mg PO DAILY 06/07/15 metFORMIN HCL [Metformin HCl] 1,000 mg PO BID 06/07/15 Acetaminophen [Tylenol .Regular Strength -] 650 mg PO Q6H PRN #0 tablet Methadone [Dolophine -] 70 mg PO DAILY 01/30/16 Buspirone HCl 15 mg PO BID 07/22/18 Family Disease History: Other: Mother (asthma ). Mother had breast cancer in her 70s Vital Signs:' AFVSS Constitutional: Yes: Well Nourished, No Distress, Calm, Obese Cardiovascular: Yes: Regular Rate and Rhythm, S1, S2 Respiratory: Yes: Regular, CTA Bilaterally Gastrointestinal: Yes: Normal Bowel Sounds, Soft Edema: No Neuro--nonfocal Labs/Meds reviewed A/P 62 yo male with PMH of HTN, HLD, DM, diabetic foot ulcer, PVD, HepC s/p harvoni , and previous opioid abuse on methadone who presents to the emergency department with chest pain a/w left arm and left leg numbness. MRI Brain was negative. Hew as treated for hypertensive urgency. CTA of chest and abdomen was performed to rule out dissection. CTA revealed lytic lesion--superior pubic ramus, vertebrl bodies, ? thecal sac indentation at L3 Also with MYESHA ? interstitial infiltrate and adrenal adenomas c/o upper back pain. also with renal insufficiency Getting w/u for myeloma Will check SFLCA/Quant Igs/SPEP/SIFE/UPEP Check MRI T/L spine will need bone marrow biopsy will check cultures will consider steroids/velcade will follow
[2018-07-24 02:54] LABS: RATIO URIN PROTEIN/URIN CREAT 3.9 MG/DL
[2018-07-24] MEDS ORDERED: METHADONE HCL 40 MG DISPERSABLE TABLET ONE (05:21)
[2018-07-24] MEDS ORDERED: METHADONE HCL 10 MG TABLET ONE (05:22)
[2018-07-24] MEDS: HEPARIN NA (PORCINE) 5,000 UNITS/ML 1ML VIAL SQ SCH ×2 (05:42→15:00)
[2018-07-24] MEDS: METHADONE 40 MG, METHADONE 30 MG PO SCH (05:42)
[2018-07-24] MEDS: INSULIN SLIDING SCALE (NOVOLOG) 1 VIAL SQ SCH ×4 (06:14→22:14)
[2018-07-24 06:32] LABS: BASO % 0.7 % (0-2.0); HEMATOCRIT 33.6 % (35.4-49); LYMPH % 38.9 % (8-40); MCH 26.7 pg (25.7-33.7); MCHC 32.7 g/dl (32.0-35.9); MEAN CELL VOLUME 81.8 fl (80-96); MEAN PLT VOLUME 7.3 fl (7.5-11.1); MONO % 6.1 % (3.8-10.2); NEUT % 50.3 % (42.8-82.8); PLATELET COUNT 258 K/MM3 (134-434); RBC 4.11 M/mm3 (4.00-5.60); WHITE BLOOD COUNT 8.1 K/mm3 (4.0-10.0)
[2018-07-24 06:36] LABS: FREE KAPPA,SERUM 900.8 mg/L (3.3-19.4)
[2018-07-24 06:53] LABS: ANION GAP 8 MMOL/L (8-16); BLOOD UREA NITROGEN 43 mg/dL (7-18); CALCIUM 8.7 mg/dL (8.5-10.1); CHLORIDE 100 mmol/L (98-107); CO2 28 mmol/L (21-32); CREATININE 2.2 mg/dL (0.55-1.3); GLUCOSE,RANDOM 70 mg/dL (74-106); POTASSIUM 4.3 mmol/L (3.5-5.1); SODIUM 135 mmol/L (136-145)
[2018-07-24] MEDS ORDERED: PT OWN MED DRAWER 7, Y5N ONE (07:13)
[2018-07-24] MEDS: busPIRone HCL 5 MG TABLET PO SCH ×2 (09:29→22:15)
[2018-07-24] MEDS: ASPIRIN COATED 81 MG TABLET.EC PO SCH (09:29)
[2018-07-24] MEDS: NIFEdipine E.R. 30 MG TABLET (FP) PO SCH (09:29)
[2018-07-24] MEDS: METOPROLOL TARTRATE 25 MG TABLET (FP) PO SCH ×2 (09:30→22:15)
[2018-07-24] MEDS: RANITIDINE HCL 150 MG TABLET (FP) PO SCH (09:30)
[2018-07-24] MEDS: SERTRALINE HCL 25 MG TABLET (FP) PO SCH (09:30)
[2018-07-24] MEDS: TIOTROPIUM BROMIDE 2.5 MCG (SPIRIVA) RESPIMAT INHALER IH SCH (09:30)
[2018-07-24] MEDS: BUDESONIDE/FORMETEROL FUMARATE 80/4.5 mcg INHALER IH SCH ×2 (09:30→22:14)
--- NOTE | 2018-07-24 10:28 | PN ---
Physical Exam: SUBJECTIVE: Patient seen and examined OBJECTIVE: Vital Signs Period Temp Pulse Resp BP Sys/Andre Pulse Ox Last 24 Hr 97.9 F-99.1 F 58-81 19-20 134-168/77-81 99 GENERAL: The patient is awake, alert, and fully oriented, mild dyspnea at rest. LUNGS: Breath sounds decreased bilaterally, no wheezes, no crackles, no accessory muscle use. CHEST: Right sided chest mass HEART: Regular rate and rhythm, S1, S2 without murmur, rub or gallop. ABDOMEN: Obese, soft, nontender, nondistended, normoactive bowel sounds, no guarding, no rebound, no hepatosplenomegaly, no masses. EXTREMITIES: 2+ pulses, warm, well-perfused, no edema. Laboratory Results - last 24 hr 07/22/18 07/23/18 07/23/18 05:30 05:30 11:35 WBC RBC Hgb Hct MCV MCH MCHC RDW Plt Count MPV Absolute Neuts (auto) Neutrophils % Lymphocytes % Monocytes % Eosinophils % Basophils % Nucleated RBC % Sodium Potassium Chloride Carbon Dioxide Anion Gap BUN Creatinine Creat Clearance w eGFR POC Glucometer 222 Random Glucose Calcium Prostate Specific Ag 0.30 U Random Total Protein Urine Creatinine Protein/Creatinin Ratio JEAN-PIERRE Screen Negative Double Strand DNA Ab 1 Free [place] LC, Quant 900.8 H Free Lambda LC, Quant 22.4 Free [place]/Lambda Ratio 40.21 H 07/23/18 07/23/18 07/24/18 16:48 21:23 00:02 WBC RBC Hgb Hct MCV MCH MCHC RDW Plt Count MPV Absolute Neuts (auto) Neutrophils % Lymphocytes % Monocytes % Eosinophils % Basophils % Nucleated RBC % Sodium Potassium Chloride Carbon Dioxide Anion Gap BUN Creatinine Creat Clearance w eGFR POC Glucometer 81 131 Random Glucose Calcium Prostate Specific Ag U Random Total Protein 85 H Urine Creatinine 22.0 Protein/Creatinin Ratio 3.9 JEAN-PIERRE Screen Double Strand DNA Ab Free [place] LC, Quant Free Lambda LC, Quant Free [place]/Lambda Ratio 07/24/18 07/24/18 07/24/18 05:28 05:30 05:30 WBC 8.1 RBC 4.11 Hgb 11.0 L Hct 33.6 L MCV 81.8 MCH 26.7 MCHC 32.7 RDW 14.0 Plt Count 258 MPV 7.3 L Absolute Neuts (auto) 4.1 Neutrophils % 50.3 Lymphocytes % 38.9 Monocytes % 6.1 Eosinophils % 4.0 Basophils % 0.7 Nucleated RBC % 0 Sodium 135 L Potassium 4.3 Chloride 100 Carbon Dioxide 28 Anion Gap 8 BUN 43 H Creatinine 2.2 H Creat Clearance w eGFR 30.28 POC Glucometer 85 Random Glucose 70 L Calcium 8.7 Prostate Specific Ag U Random Total Protein Urine Creatinine Protein/Creatinin Ratio JEAN-PIERRE Screen Double Strand DNA Ab Free [place] LC, Quant Free Lambda LC, Quant Free [place]/Lambda Ratio Active Medications Generic Name Dose Route Start Last Admin Trade Name Freq PRN Reason Stop Dose Admin Al Hydroxide/Mg Hydroxide 30 ml 07/22/18 12:56 07/22/18 15:05 Mylanta Oral Suspension - PO 30 ml Q6H PRN Administration DYSPEPSIA Albuterol Sulfate 1 amp 07/22/18 21:22 Ventolin 0.083% Nebulizer Soln - NEB Q4H PRN SHORT OF BREATH/WHEEZING Aspirin 81 mg 07/21/18 10:00 07/24/18 09:29 Ecotrin - PO 81 mg DAILY YAKOV Administration Budesonide/Formoterol Fumarate 2 puff 07/23/18 22:00 07/24/18 09:30 Symbicort 80/4.5mcg - IH 2 puff BID YAKOV Administration Buspirone HCl 15 mg 07/22/18 13:00 07/24/18 09:29 Buspar - PO 15 mg BID YAKOV Administration Heparin Sodium (Porcine) 5,000 unit 07/20/18 22:00 07/24/18 05:42 Heparin - SQ 5,000 unit TID YAKOV Administration Insulin Aspart 1 vial 07/20/18 22:00 07/24/18 06:14 Novolog Vial Sliding Scale - SQ Not Given ACHS [facility] Protocol Insulin Detemir 40 units 07/20/18 22:00 07/23/18 22:13 Levemir Vial SQ 40 units HS YAKOV Administration Methadone HCl 40 mg/ Methadone 70 mg 07/21/18 06:00 07/24/18 05:42 HCl 30 mg PO 70 mg 0600 YAKOV Administration Metoprolol Tartrate 25 mg 07/20/18 15:20 07/24/18 09:30 Lopressor - PO 25 mg BID YAKOV Administration Nifedipine 30 mg 07/23/18 10:00 07/24/18 09:29 Procardia Xl - PO 30 mg DAILY YAKOV Administration Nitroglycerin 0.4 mg 07/21/18 06:13 07/21/18 06:23 Nitrostat - SL 0.4 mg Q5M PRN Administration FOR CHEST PAIN Ranitidine HCl 150 mg 07/20/18 16:45 07/24/18 09:30 Zantac - PO 150 mg DAILY YAKOV Administration Sertraline HCl 50 mg 07/21/18 10:00 07/24/18 09:30 Zoloft - PO 50 mg DAILY YAKOV Administration Tiotropium [place] 2 puff 07/23/18 17:00 07/24/18 09:30 Spiriva Respimat IH 2 puff DAILY YAKOV Administration ASSESSMENT/PLAN: This is a 62 year old man with a history of HTN, HLD, NIDDM, diabetic foot ulcers, asthma, PAD, hepatitis C, depression, opioid dependence who presented to the ED with chest pain, palpitations, headache, and weakness of his left arm and leg, and was found to have BP 227/110. 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, lumbar and thoracic spine - 07/20 CTA: multiple osteolytic lesions suggestive of metastatic disease vs multiple myeloma - SPEP, UPEP, PSA pending - ESR 60 - Heme/onc following Right chest subcutaneous lesion - seen and evaluated by surgery - mammogram ordered - excisional biopsy planned for this week Hyponatremia --resolved Hypercalcemia --resolved - corrected calcium is 9.4 Hypomagnesemia - resolved Hyperlipidemia --not on statin therapy NIDDM - Continue Levemir, Novolog sliding scale - Metformin discontinued secondary to DARIO Depression - Continue Zoloft Opioid dependence - Continue methadone Asthma, probable COPD - Continue Advair, Albuterol nebs as needed - Pulmonary following History of hepatitis C --s/p Harvoni treatment --stable FEN Fluids: PO intake adequate Electrolytes: replete as indicated Nutrition: diabetic, low sodium DVT prophylaxis: subq heparin Physical therapy Dispo: continues to require inpatient care. Full code. Visit type - Emergency Visit Emergency Visit: Yes ED Registration Date: 07/20/18 Care time: The patient presented to the Emergency Department on the above date and was hospitalized for further evaluation of their emergent condition. - New Patient This patient is new to me today: Yes Date on this admission: 07/24/18 - Critical Care Critical Care patient: No
--- NOTE | 2018-07-24 10:43 | PN ---
Progress Note, Physician History of Present Illness: PULMONARY FEELING BETTER,DYSPNEA IMPROVING,-CP. SLEEP SCREEN AHI 66.1 C/W SEVERE STORM - Current Medication List Current Medications: Active Medications Al Hydroxide/Mg Hydroxide (Mylanta Oral Suspension -) 30 ml PO Q6H PRN PRN Reason: DYSPEPSIA Last Admin: 07/22/18 15:05 Dose: 30 ml Albuterol Sulfate (Ventolin 0.083% Nebulizer Soln -) 1 amp NEB Q4H PRN PRN Reason: SHORT OF BREATH/WHEEZING Aspirin (Ecotrin -) 81 mg PO DAILY [facility] Last Admin: 07/24/18 09:29 Dose: 81 mg Budesonide/Formoterol Fumarate (Symbicort 80/4.5mcg -) 2 puff IH BID [facility] Last Admin: 07/24/18 09:30 Dose: 2 puff Buspirone HCl (Buspar -) 15 mg PO BID [facility] Last Admin: 07/24/18 09:29 Dose: 15 mg Heparin Sodium (Porcine) (Heparin -) 5,000 unit SQ TID [facility] Last Admin: 07/24/18 05:42 Dose: 5,000 unit Insulin Aspart (Novolog Vial Sliding Scale -) 1 vial SQ [facility]; Protocol Last Admin: 07/24/18 06:14 Dose: Not Given Insulin Detemir (Levemir Vial) 40 units SQ HS [facility] Last Admin: 07/23/18 22:13 Dose: 40 units Methadone HCl 40 mg/ Methadone (HCl 30 mg) 70 mg PO 0600 [facility] Last Admin: 07/24/18 05:42 Dose: 70 mg Metoprolol Tartrate (Lopressor -) 25 mg PO BID [facility] Last Admin: 07/24/18 09:30 Dose: 25 mg Nifedipine (Procardia Xl -) 30 mg PO DAILY [facility] Last Admin: 07/24/18 09:29 Dose: 30 mg Nitroglycerin (Nitrostat -) 0.4 mg SL Q5M PRN PRN Reason: FOR CHEST PAIN Last Admin: 07/21/18 06:23 Dose: 0.4 mg Ranitidine HCl (Zantac -) 150 mg PO DAILY [facility] Last Admin: 07/24/18 09:30 Dose: 150 mg Sertraline HCl (Zoloft -) 50 mg PO DAILY [facility] Last Admin: 07/24/18 09:30 Dose: 50 mg Tiotropium [place] (Spiriva Respimat) 2 puff IH DAILY [facility] Last Admin: 07/24/18 09:30 Dose: 2 puff - Objective Vital Signs: Vital Signs Temperature 98.0 F 07/24/18 04:38 Pulse Rate 62 07/24/18 04:38 Respiratory Rate 20 07/24/18 04:38 Blood Pressure 168/79 07/24/18 04:38 O2 Sat by Pulse Oximetry (%) 99 07/23/18 21:00 Constitutional: Yes: Well Nourished, Calm Eyes: Yes: WNL HENT: Yes: WNL Neck: Yes: WNL Cardiovascular: Yes: Regular Rate and Rhythm, S1, S2 Respiratory: Yes: Diminished Gastrointestinal: Yes: Normal Bowel Sounds, Soft Extremities: Yes: WNL Edema: No Labs: CBC, BMP 07/24/18 05:30 07/24/18 05:30 INR, PTT INR 1.06 (0.83-1.09) 07/20/18 11:48 Problem List - Problems (1) Hypertensive emergency Code(s): I16.1 - HYPERTENSIVE EMERGENCY (2) Chest pain Code(s): R07.9 - CHEST PAIN, UNSPECIFIED (3) Type 2 diabetes mellitus with foot ulcer Code(s): E11.621 - TYPE 2 DIABETES MELLITUS WITH FOOT ULCER; L97.509 - NON- PRESSURE CHRONIC ULCER OTH PRT UNSP FOOT W UNSP SEVERITY Qualifiers: (4) Asthma Code(s): J45.909 - UNSPECIFIED ASTHMA, UNCOMPLICATED (5) Hepatitis C Code(s): B19.20 - UNSPECIFIED VIRAL HEPATITIS C WITHOUT HEPATIC COMA (6) Hypertension Code(s): I10 - ESSENTIAL (PRIMARY) HYPERTENSION (7) Dyspnea Code(s): R06.00 - DYSPNEA, UNSPECIFIED (8) Troponin I above reference range Code(s): R74.8 - ABNORMAL LEVELS OF OTHER SERUM ENZYMES Assessment/Plan IMP DYSPNEA LIKELY SECONDARY TO COPD/ASTHMA S/P HYPERTENSIVE EMERGENCY ACUTE ON CHRONIC KIDNEY DISEASE DM OSTEOLYTIC LESIONS CP + TROPONIN OSAS AHI 66.1 ON SLEEP SCREEN PLAN INHALED BRONCHODILATORS O2 CHECK O2 SAT WITH EXERTION ON RA PFTS OUTPATIENTS CONSIDER ONCOLOGY EVALUATION FORMAL SLEEP STUDIES OUTPATIENT DR WAGNER Problem List - Problems (1) Hypertensive emergency Code(s): I16.1 - HYPERTENSIVE EMERGENCY (2) Chest pain Code(s): R07.9 - CHEST PAIN, UNSPECIFIED (3) Type 2 diabetes mellitus with foot ulcer Code(s): E11.621 - TYPE 2 DIABETES MELLITUS WITH FOOT ULCER; L97.509 - NON- PRESSURE CHRONIC ULCER OTH PRT UNSP FOOT W UNSP SEVERITY Qualifiers: (4) Asthma Code(s): J45.909 - UNSPECIFIED ASTHMA, UNCOMPLICATED (5) Hepatitis C Code(s): B19.20 - UNSPECIFIED VIRAL HEPATITIS C WITHOUT HEPATIC COMA (6) Hypertension Code(s): I10 - ESSENTIAL (PRIMARY) HYPERTENSION (7) Dyspnea Code(s): R06.00 - DYSPNEA, UNSPECIFIED (8) Troponin I above reference range Code(s): R74.8 - ABNORMAL LEVELS OF OTHER SERUM ENZYMES
--- NOTE | 2018-07-24 12:59 | PN ---
Progress Note, Physician Chief Complaint: right chest wall lesion History of Present Illness: 62 yo male with PMH of HTN, HLD, DM, diabetic foot ulcer, PVD, HepC s/p harvoni , and previous opioid abuse on methadone who presents to the emergency department with chest pain a/w left arm and left leg numbness since 6PM last night. We are assessing for a right anterior chest wall lesion. - Current Medication List Current Medications: Active Medications Al Hydroxide/Mg Hydroxide (Mylanta Oral Suspension -) 30 ml PO Q6H PRN PRN Reason: DYSPEPSIA Last Admin: 07/22/18 15:05 Dose: 30 ml Albuterol Sulfate (Ventolin 0.083% Nebulizer Soln -) 1 amp NEB Q4H PRN PRN Reason: SHORT OF BREATH/WHEEZING Aspirin (Ecotrin -) 81 mg PO DAILY [facility] Last Admin: 07/24/18 09:29 Dose: 81 mg Budesonide/Formoterol Fumarate (Symbicort 80/4.5mcg -) 2 puff IH BID [facility] Last Admin: 07/24/18 09:30 Dose: 2 puff Buspirone HCl (Buspar -) 15 mg PO BID [facility] Last Admin: 07/24/18 09:29 Dose: 15 mg Heparin Sodium (Porcine) (Heparin -) 5,000 unit SQ TID [facility] Last Admin: 07/24/18 05:42 Dose: 5,000 unit Insulin Aspart (Novolog Vial Sliding Scale -) 1 vial SQ ACHS [facility]; Protocol Last Admin: 07/24/18 12:27 Dose: Not Given Insulin Detemir (Levemir Vial) 40 units SQ HS [facility] Last Admin: 07/23/18 22:13 Dose: 40 units Methadone HCl 40 mg/ Methadone (HCl 30 mg) 70 mg PO 0600 [facility] Last Admin: 07/24/18 05:42 Dose: 70 mg Metoprolol Tartrate (Lopressor -) 25 mg PO BID [facility] Last Admin: 07/24/18 09:30 Dose: 25 mg Nifedipine (Procardia Xl -) 30 mg PO DAILY [facility] Last Admin: 07/24/18 09:29 Dose: 30 mg Nitroglycerin (Nitrostat -) 0.4 mg SL Q5M PRN PRN Reason: FOR CHEST PAIN Last Admin: 07/21/18 06:23 Dose: 0.4 mg Ranitidine HCl (Zantac -) 150 mg PO DAILY [facility] Last Admin: 07/24/18 09:30 Dose: 150 mg Sertraline HCl (Zoloft -) 50 mg PO DAILY [facility] Last Admin: 07/24/18 09:30 Dose: 50 mg Tiotropium [place] (Spiriva Respimat) 2 puff IH DAILY [facility] Last Admin: 07/24/18 09:30 Dose: 2 puff - Objective Vital Signs: Vital Signs Temperature 98.4 F 07/24/18 09:00 Pulse Rate 57 L 07/24/18 09:00 Respiratory Rate 18 07/24/18 09:00 Blood Pressure 149/89 07/24/18 09:00 O2 Sat by Pulse Oximetry (%) 96 07/24/18 09:00 Vital Signs Period Temp Pulse Resp BP Sys/Andre Pulse Ox Last 24 Hr 97.9 F-99.1 F 57-81 18-20 134-168/77-89 96-99 Intake & Output 07/23/18 07/24/18 07/24/18 23:59 07:59 15:59 Intake Total 480 240 Balance 480 240 Intake: IVPB 0 Oral 480 240 Other: Voiding Method Toilet Toilet # Unmeasured Voids Void 3 Bowel Movement No No Constitutional: Yes: Well Nourished, No Distress, Calm, Obese Eyes: Yes: Conjunctiva Clear, EOM Intact HENT: Yes: Atraumatic, Normocephalic Neck: Yes: Supple, Trachea Midline Cardiovascular: Yes: Regular Rate and Rhythm, S1, S2 Respiratory: Yes: Regular, CTA Bilaterally Gastrointestinal: Yes: Normal Bowel Sounds, Soft. No: Tenderness ...Rectal Exam: Yes: Deferred Genitourinary: No: CVA Tenderness - Left, CVA Tenderness - Right Breast(s): Yes: Right, Gynecomastia, Mass. No: Discharge from Nipple, Nipple Inversion, Skin Changes Musculoskeletal: No: Muscle Pain, Muscle Weakness Extremities: No: Cool, Cyanosis Edema: No Peripheral Pulses WNL: Yes Peripheral Pulses: Left Radial: 2+, Right Radial: 2+, Left Doralis Pedis: 2+, Right Dorsalis Pedis: 2+ Integumentary: Yes: Bruising. No: Jaundice, Rash Neurological: Yes: Alert, Oriented Psychiatric: Yes: Alert, Oriented Labs: CBC, BMP 07/24/18 05:30 07/24/18 05:30 INR, PTT INR 1.06 (0.83-1.09) 07/20/18 11:48 Problem List - Problems (1) Mass of right breast Assessment/Plan: 62yo male MMP with enjarging palpable right (upper inner quadrant)breast mass. appears enhanging on the CTscan chest. Diagnostic and screening mammography Excisional biopsy this week Discussed with patient risks, benefits and alternatives of aforementioned procedure, including but not limited to bleeding, infection, injury to adjacent structures, scar, need for further procedures, ; alternatives include antibiotics, delayed or no surgery - risks of this include failure of nonoperative therapy, recurrence, . Patient desires to proceed with operation - will take to OR for above. Informed consent signed for same. Thank you for the opportunity to participate in the care of this patient. Code(s): N63.10 - UNSPECIFIED LUMP IN THE RIGHT BREAST, UNSPECIFIED QUADRANT (2) Asthma Code(s): J45.909 - UNSPECIFIED ASTHMA, UNCOMPLICATED (3) Depression Code(s): F32.9 - MAJOR DEPRESSIVE DISORDER, SINGLE EPISODE, UNSPECIFIED (4) Diabetes Code(s): E11.9 - TYPE 2 DIABETES MELLITUS WITHOUT COMPLICATIONS Qualifiers: Diabetes mellitus complication status: with neurologic complications Diabetes mellitus complication detail: with polyneuropathy (5) Hepatitis C Code(s): B19.20 - UNSPECIFIED VIRAL HEPATITIS C WITHOUT HEPATIC COMA (6) Hypertension Code(s): I10 - ESSENTIAL (PRIMARY) HYPERTENSION
--- NOTE | 2018-07-24 18:27 | PN ---
Progress Note (short form) - Note Progress Note: covering dr herndon Problems 1. DARIO 2. CKD 3. chest pain 4. htn 5. DM 6. 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 Current Medications Al Hydroxide/Mg Hydroxide (Mylanta Oral Suspension -) 30 ml PO Q6H PRN PRN Reason: DYSPEPSIA Last Admin: 07/22/18 15:05 Dose: 30 ml Albuterol Sulfate (Ventolin 0.083% Nebulizer Soln -) 1 amp NEB Q4H PRN PRN Reason: SHORT OF BREATH/WHEEZING Aspirin (Ecotrin -) 81 mg PO DAILY [facility] Last Admin: 07/24/18 09:29 Dose: 81 mg Budesonide/Formoterol Fumarate (Symbicort 80/4.5mcg -) 2 puff IH BID [facility] Last Admin: 07/24/18 09:30 Dose: 2 puff Buspirone HCl (Buspar -) 15 mg PO BID [facility] Last Admin: 07/24/18 09:29 Dose: 15 mg Heparin Sodium (Porcine) (Heparin -) 5,000 unit SQ TID [facility] Last Admin: 07/24/18 15:00 Dose: 5,000 unit Insulin Aspart (Novolog Vial Sliding Scale -) 1 vial SQ [facility]; Protocol Last Admin: 07/24/18 16:55 Dose: Not Given Insulin Detemir (Levemir Vial) 40 units SQ HS [facility] Last Admin: 07/23/18 22:13 Dose: 40 units Methadone HCl 40 mg/ Methadone (HCl 30 mg) 70 mg PO 0600 [facility] Last Admin: 07/24/18 05:42 Dose: 70 mg Metoprolol Tartrate (Lopressor -) 25 mg PO BID [facility] Last Admin: 07/24/18 09:30 Dose: 25 mg Nifedipine (Procardia Xl -) 30 mg PO DAILY [facility] Last Admin: 07/24/18 09:29 Dose: 30 mg Nitroglycerin (Nitrostat -) 0.4 mg SL Q5M PRN PRN Reason: FOR CHEST PAIN Last Admin: 07/21/18 06:23 Dose: 0.4 mg Ranitidine HCl (Zantac -) 150 mg PO DAILY [facility] Last Admin: 07/24/18 09:30 Dose: 150 mg Sertraline HCl (Zoloft -) 50 mg PO DAILY [facility] Last Admin: 07/24/18 09:30 Dose: 50 mg Tiotropium [place] (Spiriva Respimat) 2 puff IH DAILY [facility] Last Admin: 07/24/18 09:30 Dose: 2 puff Last Vital Signs Temp Pulse Resp BP Pulse Ox 98.1 F 54 L 20 135/71 96 07/24/18 14:00 07/24/18 14:00 07/24/18 14:00 07/24/18 14:00 07/24/18 09:00 alert in nad lungs clear heart reg abd soft ext no edema dario on ckd now renal function improving CBC, BMP 07/23/18 05:30 07/23/18 05:30 stable renal function Plan - renal function is better - will continue to monitor renal function closely - renal workup is in progress - renal ultrasound reviewed - LEFTY still in differential, will follow
[2018-07-24] MEDS ORDERED: MAG HYDROX/AL HYDROX/SIMETH 30 ML UNIT-DOSE CUP PO PRN (18:34)
[2018-07-24] MEDS ORDERED: ALBUTEROL SO4 0.083% IH SOL 2.5 MG/3 ML VIAL.NEB. NEB PRN (18:34)
[2018-07-24] MEDS ORDERED: NITROGLYCERIN SUBLINGUAL 1/150 0.4 MG TAB SL PRN (18:34)
[2018-07-24] MEDS ORDERED: HEPARIN NA (PORCINE) 5,000 UNITS/ML 1ML VIAL SQ SCH (22:00)
[2018-07-24] MEDS: INSULIN (LEVEMIR) 100 UNITS/ML UNITS SQ SCH (22:20)
--- NOTE | 2018-07-24 22:43 | PN ---
Progress Note (short form) - Note Progress Note: PAtient seen nd examined Denies any complaints Last Vital Signs Temp Pulse Resp BP Pulse Ox 97.7 F 57 L 20 157/71 94 L 07/25/18 02:00 07/25/18 02:00 07/25/18 02:00 07/25/18 02:00 07/24/18 21:00 Cor: RSR, No murmurs, No gallops Lungs: Clear to P&A Abd: Soft, Normal bowel sounds, No organomegaly Ext:No significant edema Skin: No rashes, Integument intact Abnormal Lab Results 07/25/18 06:40 Hgb 11.1 L Hct 34.2 L MPV 6.8 L Active Medications Generic Name Dose Route Start Last Admin Trade Name Freq PRN Reason Stop Dose Admin Al Hydroxide/Mg Hydroxide 30 ml 07/24/18 18:34 Mylanta Oral Suspension - PO Q6H PRN DYSPEPSIA Albuterol Sulfate 1 amp 07/24/18 18:34 Ventolin 0.083% Nebulizer Soln - NEB Q4H PRN SHORT OF BREATH/WHEEZING Aspirin 81 mg 07/25/18 10:00 Ecotrin - PO DAILY [facility] Budesonide/Formoterol Fumarate 2 puff 07/23/18 22:00 07/25/18 05:55 Symbicort 80/4.5mcg - IH Not Given BID [facility] Buspirone HCl 15 mg 07/24/18 22:00 07/24/18 22:15 Buspar - PO 15 mg BID [facility] Administration Insulin Aspart 1 vial 07/24/18 22:00 07/25/18 06:40 Novolog Vial Sliding Scale - SQ Not Given ACHS [facility] Protocol Insulin Detemir 40 units 07/24/18 22:00 07/24/18 22:20 Levemir Vial SQ Not Given HS [facility] Methadone HCl 40 mg/ Methadone 70 mg 07/25/18 06:00 07/25/18 06:25 HCl 30 mg PO 70 mg 0600 [facility] Administration Metoprolol Tartrate 25 mg 07/24/18 22:00 07/24/18 22:15 Lopressor - PO 25 mg BID [facility] Administration Nifedipine 30 mg 07/25/18 10:00 Procardia Xl - PO DAILY [facility] Nitroglycerin 0.4 mg 07/24/18 18:34 Nitrostat - SL Q5M PRN FOR CHEST PAIN Ranitidine HCl 150 mg 07/25/18 10:00 Zantac - PO DAILY [facility] Sertraline HCl 50 mg 07/25/18 10:00 Zoloft - PO DAILY [facility] Tiotropium [place] 2 puff 07/23/18 17:00 07/24/18 09:30 Spiriva Respimat IH 2 puff DAILY [facility] Administration A/P 62 yo male with PMH of HTN, HLD, DM, diabetic foot ulcer, PVD, HepC s/p harvoni , and previous opioid abuse on methadone who presents to the emergency department with chest pain a/w left arm and left leg numbness. MRI Brain was negative. Hew as treated for hypertensive urgency. CTA of chest and abdomen was performed to rule out dissection. CTA revealed lytic lesion--superior pubic ramus, vertebrl bodies, ? thecal sac indentation at L3 Also with MYESHA ? interstitial infiltrate and adrenal adenomas c/o upper back pain. also with renal insufficiency Getting w/u for myeloma Will check SFLCA/Quant Igs/SPEP/SIFE/UPEP f/u MRI T/L spine will need bone marrow biopsy will check cultures will consider steroids/velcade once diagnosis confirmed Left breast --subcutaneous ? cyst --? lipoma--for biopsy
[2018-07-25] MEDS: BUDESONIDE/FORMETEROL FUMARATE 80/4.5 mcg INHALER IH SCH ×3 (05:55→21:50)
[2018-07-25] MEDS ORDERED: METHADONE HCL 10 MG TABLET ONE (06:21)
[2018-07-25] MEDS ORDERED: METHADONE HCL 40 MG DISPERSABLE TABLET ONE (06:21)
[2018-07-25] MEDS: METHADONE 40 MG, METHADONE 30 MG PO SCH (06:25)
[2018-07-25] MEDS: INSULIN SLIDING SCALE (NOVOLOG) 1 VIAL SQ SCH ×4 (06:40→21:49)
[2018-07-25 07:16] LABS: BASO % 0.5 % (0-2.0); EOS % 4.3 % (0-4.5); HEMATOCRIT 34.2 % (35.4-49); HEMOGLOBIN 11.1 GM/dL (11.7-16.9); LYMPH % 36.4 % (8-40); MCH 26.5 pg (25.7-33.7); MCHC 32.4 g/dl (32.0-35.9); MEAN CELL VOLUME 81.8 fl (80-96); MEAN PLT VOLUME 6.8 fl (7.5-11.1); MONO % 6.8 % (3.8-10.2); PLATELET COUNT 251 K/MM3 (134-434); RBC 4.18 M/mm3 (4.00-5.60); RDW 13.7 % (11.9-15.9); WHITE BLOOD COUNT 7.6 K/mm3 (4.0-10.0)
[2018-07-25 07:44] LABS: ALBUMIN 2.9 g/dl (3.4-5.0); ALK PHOS 72 U/L (45-117); ANION GAP 5 MMOL/L (8-16); BILIRUBIN,TOTAL 0.1 mg/dL (0.2-1); BLOOD UREA NITROGEN 43 mg/dL (7-18); CALCIUM 8.5 mg/dL (8.5-10.1); CHLORIDE 103 mmol/L (98-107); CO2 28 mmol/L (21-32); CREATININE 1.9 mg/dL (0.55-1.3); GLUCOSE,RANDOM 122 mg/dL (74-106); MAGNESIUM 2.1 mg/dL (1.8-2.4); POTASSIUM 4.6 mmol/L (3.5-5.1); SGOT/AST 16 U/L (15-37); SGPT/ALT 14 U/L (13-61); SODIUM 136 mmol/L (136-145); TOT PROT 6.5 g/dl (6.4-8.2)
--- NOTE | 2018-07-25 09:18 | CONS ---
DATE OF CONSULTATION: 07/23/2018 PULMONARY CONSULTATION REFERRING PHYSICIAN: Walt Garcia MD HISTORY OF PRESENT ILLNESS: The patient is a 62-year-old male with a past medical history of chronic kidney disease, hypertension, hyperlipidemia, type 2 diabetes, peripheral arterial disease, hepatitis C status post treatment with Harvoni, asthma, a history of tobacco use at approximately two packs per day for many years, having quit 20 years ago. He came to [facility] complaining of chest pain associated with left arm and leg numbness. The patient stated that his symptoms on admission started suddenly. He underwent a CTA of the chest which revealed no evidence of pulmonary emboli but did reveal a 3.2-cm osteolytic lesion in the left superior ramus. No pulmonary emboli were noted and no infiltrates were noted but there was evidence of a significant central lobe emphysema of moderate degree. The patient was admitted. On admission, he was noted to be markedly hypertensive with mildly elevated troponin levels. He was evaluated by Dr. Swan for cardiology consultation and was felt to have hypertensive urgency. He was placed on IV labetalol with some improvement in his blood pressure. Of note, for the past day or so, the patient has been complaining of increasing shortness of breath and dyspnea on exertion. He states he is requiring the use of oxygen secondary to his shortness of breath. He denies any chest pain at this time. He has had no nausea or vomiting. He has an occasional cough. He denies hemoptysis or wheezing. He denies any history of occupational exposure to chemicals or fumes. PAST MEDICAL HISTORY: Again, this includes hypertension, hyperlipidemia, type 2 diabetes, peripheral arterial disease, diabetic foot ulcer, PVD, hepatitis C status post treatment with Harvoni, a history of opioid abuse, asthma, chronic kidney disease. REVIEW OF SYSTEMS: Positive for dyspnea on exertion. No chest pain, no palpitations at this time. No abdominal pain. No lower extremity edema. CURRENT MEDICATIONS: Advair, Mylanta, heparin, Zoloft, BuSpar, albuterol, Lopressor, Procardia, Zantac, Levemir, Nitrostat and Ecotrin. PHYSICAL EXAMINATION: General: The patient is an obese male, awake and alert, in no acute distress. Vital Signs: Blood pressure is currently 148/78, respiratory rate 20, temperature 99.1, heart rate 61. Of note, his blood pressure on admission was 227/110. HEENT: Head is normocephalic, atraumatic. Neck: Supple. Heart: Regular. S1, S2. Chest: There are a few mild wheezes on the left. Abdomen: Soft. Bowel sounds are positive. Extremities: No cyanosis or edema. LABORATORY: INR is 1.06, WBC is 8.1, hemoglobin 10.8, hematocrit 33.4, platelet count of 245,000. BUN 46, creatinine 2.5. Of note, his BUN was 1.[address] chest [address] shows no evidence of pulmonary embolism. It shows moderate central lobe emphysema, osteolytic lesion in the left superior ramus and also osteolytic lesions at L3 and L2 all the thecal sac subcentimeter osteolytic lesions in several lumbar and thoracic vertebrae. IMPRESSION: 1. Dyspnea, likely secondary to mild underlying chronic obstructive pulmonary disease/asthma. 2. Status post hypertensive urgency. 3. Osteolytic lesions of the spine and the superior ramus. 4. Jpcup-lx-jehgwsy kidney disease. 5. Diabetes. 6. Chest pain, currently resolved. 7. Positive troponins. PLAN: 1. Inhaled bronchodilators, supplemental O2. Check O2 saturation at rest and post exercise to determine if the patient desaturates with exertion. 2. PFTs as an outpatient. 3. Monitor blood pressure. 4. Continue hypertensive medications. 5. Continue anticoagulation. 6. Consider oncologic workup; possible multiple myeloma metastatic disease. JOSE WAGNER M.D. PRUDENCIO/[id number]
[2018-07-25] MEDS ORDERED: ASPIRIN COATED 81 MG TABLET.EC PO SCH (10:00)
[2018-07-25 10:09] LABS: ANTIGLOMERULAR BASEMENT MEN.AB 8 units (0-20)
--- NOTE | 2018-07-25 10:50 | PN ---
Progress Note, Physician History of Present Illness: Heme/Onc Patient feels well. complains of minor chest pain which he says he has had since admission which has improved Creatinine improved today Hb Stable - Current Medication List Current Medications: Active Medications Al Hydroxide/Mg Hydroxide (Mylanta Oral Suspension -) 30 ml PO Q6H PRN PRN Reason: DYSPEPSIA Albuterol Sulfate (Ventolin 0.083% Nebulizer Soln -) 1 amp NEB Q4H PRN PRN Reason: SHORT OF BREATH/WHEEZING Aspirin (Ecotrin -) 81 mg PO DAILY [facility] Budesonide/Formoterol Fumarate (Symbicort 80/4.5mcg -) 2 puff IH BID [facility] Last Admin: 07/25/18 05:55 Dose: Not Given Buspirone HCl (Buspar -) 15 mg PO BID [facility] Last Admin: 07/24/18 22:15 Dose: 15 mg Insulin Aspart (Novolog Vial Sliding Scale -) 1 vial SQ [facility]; Protocol Last Admin: 07/25/18 06:40 Dose: Not Given Insulin Detemir (Levemir Vial) 40 units SQ HS [facility] Last Admin: 07/24/18 22:20 Dose: Not Given Methadone HCl 40 mg/ Methadone (HCl 30 mg) 70 mg PO 0600 [facility] Last Admin: 07/25/18 06:25 Dose: 70 mg Metoprolol Tartrate (Lopressor -) 25 mg PO BID [facility] Last Admin: 07/24/18 22:15 Dose: 25 mg Nifedipine (Procardia Xl -) 30 mg PO DAILY [facility] Nitroglycerin (Nitrostat -) 0.4 mg SL Q5M PRN PRN Reason: FOR CHEST PAIN Ranitidine HCl (Zantac -) 150 mg PO DAILY [facility] Sertraline HCl (Zoloft -) 50 mg PO DAILY [facility] Tiotropium [place] (Spiriva Respimat) 2 puff IH DAILY [facility] Last Admin: 07/24/18 09:30 Dose: 2 puff - Objective Vital Signs: Vital Signs Temperature 97.8 F 07/25/18 06:00 Pulse Rate 65 07/25/18 06:00 Respiratory Rate 20 07/25/18 06:00 Blood Pressure 160/86 07/25/18 06:00 O2 Sat by Pulse Oximetry (%) 94 L 07/24/18 21:00 Constitutional: Yes: Well Nourished, No Distress, Calm HENT: Yes: Atraumatic, Normocephalic Neck: Yes: Supple, Trachea Midline Cardiovascular: Yes: Regular Rate and Rhythm, S1, S2 Respiratory: Yes: CTA Bilaterally Breast(s): Yes: Right (breast mass right breast inner upper quadrant) Edema: LLE: Trace, RLE: Trace Labs: CBC, BMP 07/25/18 06:40 07/25/18 06:40 INR, PTT INR 1.06 (0.83-1.09) 07/20/18 11:48 Assessment/Plan Lumbar Spine MRI L2-L3. 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 L3-L4. Pathological bone marrow replacement is seen in the spinous process of L3 , posterior lamina , inferior articular processes with cortical disruption, extension into posterior epidural space effacing the posterior epidural fat, mildly deforming the dorsal surface of the thecal sac. No evidence of disc herniation, spinal canal stenosis, neural foraminal stenosis. Thoracic Spine MRI T5-T6. Calcified thickened ligamentum flavum. Benign focus of increased signal intensity noted in the posterior superior aspect of T6 vertebral body. T6-T7. Mild recess compression deformity of the superior endplate of T7 with band of bone marrow edema in the superior aspect of T7 parallel to the compressed endplate with intact posterior cortex. Thoracic spine. No evidence of disc herniation. No evidence of central spinal canal stenosis. No evidence of cord compression. Normal signal intensity of the spinal cord. C2-C3. Mild central spinal canal stenosis. Posterior disc osteophyte complex, thickened ligamentum flavum. C4-C5. Posterior disc osteophyte complex. Mildly thickened ligamentum flavum. A/P: 62 yo male with multiple medical problems including HTN, HLD, DM, diabetic foot ulcer, PVD, HepC s/p harvoni, and previous opioid abuse on methadone who presented to the emergency room with chest pain and left arm numbness. Given his symptoms upon presentation he was worked up with a CTA of chest and abdomen was performed to rule out dissection. CTA revealed multiple lytic lesions in the superior pubic ramus, vertebrl bodies, and possible thecal sac indentation at L3. Patiet also has renal failure. Concern for multiple myeloma f/u multiple myeloma work-up: Pending JEAN-PIERRE screen negative Free Vanderbilt Elevated Vanderbilt/Lambda ratio elevated Patient seen by surgery and plan for mamogram and biopsy of the right breast mass. Mass is superficial/subcutaneous and may be a lipoma or sebaceous cyst. MRI L spine noted MRI T spine noted Will get bone marrow biopsy today. Will speak to IR Dr. Oglesby. If he cant't do it. Oncology service to do it. will consider steroids/velcade once diagnosis confirmed Hemoglobin stable Creatinine Stable
[2018-07-25] MEDS ORDERED: PT OWN MED DRAWER 7, Y5N ONE ×2 (11:00→11:03)
[2018-07-25] MEDS: busPIRone HCL 5 MG TABLET PO SCH ×2 (11:07→21:48)
[2018-07-25] MEDS: NIFEdipine E.R. 30 MG TABLET (FP) PO SCH (11:07)
[2018-07-25] MEDS: SERTRALINE HCL 25 MG TABLET (FP) PO SCH (11:07)
[2018-07-25] MEDS: METOPROLOL TARTRATE 25 MG TABLET (FP) PO SCH ×2 (11:07→21:49)
[2018-07-25] MEDS: RANITIDINE HCL 150 MG TABLET (FP) PO SCH (11:07)
[2018-07-25] MEDS: TIOTROPIUM BROMIDE 2.5 MCG (SPIRIVA) RESPIMAT INHALER IH SCH (11:08)
--- NOTE | 2018-07-25 14:36 | PN ---
Progress Note, Physician Chief Complaint: right chest wall lesion History of Present Illness: 62 yo male with PMH of HTN, HLD, DM, diabetic foot ulcer, PVD, HepC s/p harvoni , and previous opioid abuse on methadone who presents to the emergency department with chest pain a/w left arm and left leg numbness since 6PM last night. We are assessing for a right anterior breast lesion. - Current Medication List Current Medications: Active Medications Al Hydroxide/Mg Hydroxide (Mylanta Oral Suspension -) 30 ml PO Q6H PRN PRN Reason: DYSPEPSIA Albuterol Sulfate (Ventolin 0.083% Nebulizer Soln -) 1 amp NEB Q4H PRN PRN Reason: SHORT OF BREATH/WHEEZING Aspirin (Ecotrin -) 81 mg PO DAILY [facility] Budesonide/Formoterol Fumarate (Symbicort 80/4.5mcg -) 2 puff IH BID [facility] Last Admin: 07/25/18 11:06 Dose: 2 puff Buspirone HCl (Buspar -) 15 mg PO BID [facility] Last Admin: 07/25/18 11:07 Dose: 15 mg Insulin Aspart (Novolog Vial Sliding Scale -) 1 vial SQ [facility]; Protocol Last Admin: 07/25/18 11:13 Dose: Not Given Insulin Detemir (Levemir Vial) 40 units SQ [facility] Last Admin: 07/24/18 22:20 Dose: Not Given Methadone HCl 40 mg/ Methadone (HCl 30 mg) 70 mg PO 0600 [facility] Last Admin: 07/25/18 06:25 Dose: 70 mg Metoprolol Tartrate (Lopressor -) 25 mg PO BID [facility] Last Admin: 07/25/18 11:07 Dose: 25 mg Nifedipine (Procardia Xl -) 30 mg PO DAILY [facility] Last Admin: 07/25/18 11:07 Dose: 30 mg Nitroglycerin (Nitrostat -) 0.4 mg SL Q5M PRN PRN Reason: FOR CHEST PAIN Ranitidine HCl (Zantac -) 150 mg PO DAILY [facility] Last Admin: 07/25/18 11:07 Dose: 150 mg Sertraline HCl (Zoloft -) 50 mg PO DAILY [facility] Last Admin: 07/25/18 11:07 Dose: 50 mg Tiotropium [place] (Spiriva Respimat) 2 puff IH DAILY [facility] Last Admin: 07/25/18 11:08 Dose: 2 puff - Objective Vital Signs: Vital Signs Temperature 97.8 F 07/25/18 06:00 Pulse Rate 65 07/25/18 06:00 Respiratory Rate 20 07/25/18 06:00 Blood Pressure 160/86 07/25/18 06:00 O2 Sat by Pulse Oximetry (%) 94 L 07/24/18 21:00 Constitutional: Yes: Well Nourished, No Distress, Calm, Obese Eyes: Yes: Conjunctiva Clear, EOM Intact HENT: Yes: Atraumatic, Normocephalic Neck: Yes: Supple, Trachea Midline Cardiovascular: Yes: Regular Rate and Rhythm, S1, S2 Respiratory: Yes: Regular, CTA Bilaterally Gastrointestinal: Yes: Normal Bowel Sounds, Soft, Abdomen, Obese ...Rectal Exam: Yes: Deferred Genitourinary: No: CVA Tenderness - Left, CVA Tenderness - Right Breast(s): Yes: Right, Gynecomastia, Mass (2cm mass rubbery, anteriorly fixed). No: Dimpling, Discharge from Nipple, Nipple Inversion, Skin Changes Musculoskeletal: No: Muscle Pain, Muscle Weakness Extremities: No: Cool, Cyanosis Edema: No Peripheral Pulses WNL: Yes Peripheral Pulses: Left Radial: 2+, Right Radial: 2+, Left Doralis Pedis: 2+, Right Dorsalis Pedis: 2+ Neurological: Yes: Alert, Oriented Psychiatric: Yes: Alert, Oriented Labs: CBC, BMP 07/25/18 06:40 07/25/18 06:40 INR, PTT INR 1.06 (0.83-1.09) 07/20/18 11:48 Problem List - Problems (1) Mass of right breast Assessment/Plan: 62yo male MMP with enjarging palpable right (upper inner quadrant)breast mass. appears enhanging on the CTscan chest. Diagnostic right breast mammography BIRADS 2, benign in appearence. Plan for Excisional biopsy thursday 07/26 @ 1230p Discussed with patient risks, benefits and alternatives of aforementioned procedure, including but not limited to bleeding, infection, injury to adjacent structures, scar, need for further procedures, ; alternatives include antibiotics, delayed or no surgery - risks of this include failure of nonoperative therapy, recurrence, . Patient desires to proceed with operation - will take to OR for above. Informed consent signed for same. Code(s): N63.10 - UNSPECIFIED LUMP IN THE RIGHT BREAST, UNSPECIFIED QUADRANT (2) Asthma Code(s): J45.909 - UNSPECIFIED ASTHMA, UNCOMPLICATED (3) Depression Code(s): F32.9 - MAJOR DEPRESSIVE DISORDER, SINGLE EPISODE, UNSPECIFIED (4) Diabetes Code(s): E11.9 - TYPE 2 DIABETES MELLITUS WITHOUT COMPLICATIONS Qualifiers: Diabetes mellitus complication status: with neurologic complications Diabetes mellitus complication detail: with polyneuropathy (5) Hepatitis C Code(s): B19.20 - UNSPECIFIED VIRAL HEPATITIS C WITHOUT HEPATIC COMA (6) Hypertension Code(s): I10 - ESSENTIAL (PRIMARY) HYPERTENSION
[2018-07-25] MEDS ORDERED: LIDOCAINE HCL 1%, 10 MG/ML (20ML VIAL) ID ONE (15:00)
[2018-07-25] MEDS ORDERED: LIDOCAINE HCL 1%, 10 MG/ML (20ML VIAL) ONE (15:01)
--- NOTE | 2018-07-25 15:39 | PN ---
Physical Exam: SUBJECTIVE: Patient seen and examined OBJECTIVE: Vital Signs Period Temp Pulse Resp BP Sys/Andre Pulse Ox Last 24 Hr 97.7 F-98.3 F 57-74 20-20 118-169/53-86 94-94 GENERAL: The patient is awake, alert, and fully oriented LUNGS: Breath sounds decreased bilaterally, no wheezes, no crackles, no accessory muscle use. CHEST: Right upper chest palpable skin lesion ~3cm in diameter HEART: Regular rate and rhythm, S1, S2 without murmur, rub or gallop. ABDOMEN: Obese, soft, nontender, nondistended, normoactive bowel sounds, no guarding, no rebound, no hepatosplenomegaly, no masses. EXTREMITIES: 2+ pulses, warm, well-perfused, no edema. Laboratory Results - last 24 hr 07/22/18 07/24/18 07/24/18 05:30 16:54 22:13 WBC RBC Hgb Hct MCV MCH MCHC RDW Plt Count MPV Absolute Neuts (auto) Neutrophils % Lymphocytes % Monocytes % Eosinophils % Basophils % Nucleated RBC % Sodium Potassium Chloride Carbon Dioxide Anion Gap BUN Creatinine Creat Clearance w eGFR POC Glucometer 140 139 Random Glucose Calcium Magnesium Total Bilirubin AST ALT Alkaline Phosphatase Total Protein Albumin Glomerular Base Memb Ab 8 07/25/18 07/25/18 07/25/18 06:31 06:40 06:40 WBC 7.6 RBC 4.18 Hgb 11.1 L Hct 34.2 L MCV 81.8 MCH 26.5 MCHC 32.4 RDW 13.7 Plt Count 251 MPV 6.8 L Absolute Neuts (auto) 4.0 Neutrophils % 52.0 Lymphocytes % 36.4 Monocytes % 6.8 Eosinophils % 4.3 Basophils % 0.5 Nucleated RBC % 0 Sodium 136 Potassium 4.6 Chloride 103 Carbon Dioxide 28 Anion Gap 5 L BUN 43 H Creatinine 1.9 H Creat Clearance w eGFR 35.87 POC Glucometer 123 Random Glucose 122 H Calcium 8.5 Magnesium 2.1 Total Bilirubin 0.1 L AST 16 ALT 14 Alkaline Phosphatase 72 Total Protein 6.5 Albumin 2.9 L Glomerular Base Memb Ab 07/25/18 11:12 WBC RBC Hgb Hct MCV MCH MCHC RDW Plt Count MPV Absolute Neuts (auto) Neutrophils % Lymphocytes % Monocytes % Eosinophils % Basophils % Nucleated RBC % Sodium Potassium Chloride Carbon Dioxide Anion Gap BUN Creatinine Creat Clearance w eGFR POC Glucometer 121 Random Glucose Calcium Magnesium Total Bilirubin AST ALT Alkaline Phosphatase Total Protein Albumin Glomerular Base Memb Ab Active Medications Generic Name Dose Route Start Last Admin Trade Name Owenq PRN Reason Stop Dose Admin Al Hydroxide/Mg Hydroxide 30 ml 07/24/18 18:34 Mylanta Oral Suspension - PO Q6H PRN DYSPEPSIA Albuterol Sulfate 1 amp 07/24/18 18:34 Ventolin 0.083% Nebulizer Soln - NEB Q4H PRN SHORT OF BREATH/WHEEZING Aspirin 81 mg 07/25/18 10:00 Ecotrin - PO DAILY YAKOV Budesonide/Formoterol Fumarate 2 puff 07/23/18 22:00 07/25/18 11:06 Symbicort 80/4.5mcg - IH 2 puff BID YAK[facility] Administration Buspirone HCl 15 mg 07/24/18 22:00 07/25/18 11:07 Buspar - PO 15 mg BID YAKOV Administration Insulin Aspart 1 vial 07/24/18 22:00 07/25/18 11:13 Novolog Vial Sliding Scale - SQ Not Given ACHS [facility] Protocol Insulin Detemir 40 units 07/24/18 22:00 07/24/18 22:20 Levemir Vial SQ Not Given HS YAKOV Methadone HCl 40 mg/ Methadone 70 mg 07/25/18 06:00 07/25/18 06:25 HCl 30 mg PO 70 mg 0600 [facility] Administration Metoprolol Tartrate 25 mg 07/24/18 22:00 07/25/18 11:07 Lopressor - PO 25 mg BID YAK[facility] Administration Nifedipine 30 mg 07/25/18 10:00 07/25/18 11:07 Procardia Xl - PO 30 mg DAILY [facility] Administration Nitroglycerin 0.4 mg 07/24/18 18:34 Nitrostat - SL Q5M PRN FOR CHEST PAIN Ranitidine HCl 150 mg 07/25/18 10:00 07/25/18 11:07 Zantac - PO 150 mg DAILY [facility] Administration Sertraline HCl 50 mg 07/25/18 10:00 07/25/18 11:07 Zoloft - PO 50 mg DAILY YAK[facility] Administration Tiotropium [place] 2 puff 07/23/18 17:00 07/25/18 11:08 Spiriva Respimat IH 2 puff DAILY YAK[facility] Administration ASSESSMENT/PLAN: 62 year-old male with a PMH significant for HTN, HLD, NIDDM, diabetic foot ulcers, asthma, PAD, hepatitis C, depression, and opioid dependence. Admitted for hypertensive emergency. Complicated hospital course. 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, lumbar and thoracic spine - 07/20 CTA: multiple osteolytic lesions suggestive of metastatic disease vs multiple myeloma - 07/24 MRI T&L spine: L2-L3, L3-L4 pathological bone marrow replacement - SPEP, UPEP, PSA pending - bedside bone biopsy today - Heme/onc following Right chest subcutaneous lesion - 07/25 Mammo: 2.2 x 1.5 x 2.5cm largely calcified mass lower inner quadrant right breast - plan is OR tomorrow at 12:30 for excision Hyponatremia --resolved NIDDM - Continue Levemir, Novolog sliding scale - Metformin discontinued secondary to DARIO Depression - Continue Zoloft Opioid dependence - Continue methadone Asthma, probable COPD - Continue Advair, Albuterol nebs as needed - Pulmonary following History of hepatitis C --s/p Harvoni treatment --stable FEN Fluids: PO intake adequate Electrolytes: replete as indicated Nutrition: diabetic, low sodium DVT prophylaxis: subq heparin Physical therapy Dispo: continues to require inpatient care. Full code. Visit type - Emergency Visit Emergency Visit: Yes ED Registration Date: 07/20/18 Care time: The patient presented to the Emergency Department on the above date and was hospitalized for further evaluation of their emergent condition. - New Patient This patient is new to me today: No - Critical Care Critical Care patient: No
--- NOTE | 2018-07-25 16:03 | PN ---
Progress Note, Physician History of Present Illness: Pt seen and examined at bedside. He denies shortness of breath. He complains of malaise. - Current Medication List Current Medications: Active Medications Al Hydroxide/Mg Hydroxide (Mylanta Oral Suspension -) 30 ml PO Q6H PRN PRN Reason: DYSPEPSIA Albuterol Sulfate (Ventolin 0.083% Nebulizer Soln -) 1 amp NEB Q4H PRN PRN Reason: SHORT OF BREATH/WHEEZING Aspirin (Ecotrin -) 81 mg PO DAILY [facility] Budesonide/Formoterol Fumarate (Symbicort 80/4.5mcg -) 2 puff IH BID [facility] Last Admin: 07/25/18 11:06 Dose: 2 puff Buspirone HCl (Buspar -) 15 mg PO BID [facility] Last Admin: 07/25/18 11:07 Dose: 15 mg Insulin Aspart (Novolog Vial Sliding Scale -) 1 vial SQ [facility]; Protocol Last Admin: 07/25/18 11:13 Dose: Not Given Insulin Detemir (Levemir Vial) 40 units SQ HS [facility] Last Admin: 07/24/18 22:20 Dose: Not Given Methadone HCl 40 mg/ Methadone (HCl 30 mg) 70 mg PO 0600 [facility] Last Admin: 07/25/18 06:25 Dose: 70 mg Metoprolol Tartrate (Lopressor -) 25 mg PO BID [facility] Last Admin: 07/25/18 11:07 Dose: 25 mg Nifedipine (Procardia Xl -) 30 mg PO DAILY [facility] Last Admin: 07/25/18 11:07 Dose: 30 mg Nitroglycerin (Nitrostat -) 0.4 mg SL Q5M PRN PRN Reason: FOR CHEST PAIN Ranitidine HCl (Zantac -) 150 mg PO DAILY [facility] Last Admin: 07/25/18 11:07 Dose: 150 mg Sertraline HCl (Zoloft -) 50 mg PO DAILY [facility] Last Admin: 07/25/18 11:07 Dose: 50 mg Tiotropium [place] (Spiriva Respimat) 2 puff IH DAILY [facility] Last Admin: 07/25/18 11:08 Dose: 2 puff - Objective Vital Signs: Vital Signs Temperature 98.3 F 07/25/18 14:34 Pulse Rate 57 L 07/25/18 14:34 Respiratory Rate 20 07/25/18 14:34 Blood Pressure 118/53 L 07/25/18 14:34 O2 Sat by Pulse Oximetry (%) 94 L 07/24/18 21:00 Constitutional: Yes: Calm Eyes: Yes: Conjunctiva Clear HENT: Yes: Atraumatic Neck: Yes: Supple Cardiovascular: Yes: S1, S2 Respiratory: Yes: CTA Bilaterally Gastrointestinal: Yes: Normal Bowel Sounds, Soft Genitourinary: Yes: WNL Edema: No Neurological: Yes: Oriented Psychiatric: Yes: Oriented Labs: CBC, BMP 07/25/18 06:40 07/25/18 06:40 INR, PTT INR 1.06 (0.83-1.09) 07/20/18 11:48 Problem List - Problems (1) DARIO (acute kidney injury) Code(s): N17.9 - ACUTE KIDNEY FAILURE, UNSPECIFIED (2) Chest pain Code(s): R07.9 - CHEST PAIN, UNSPECIFIED (3) Left sided numbness Code(s): R20.0 - ANESTHESIA OF SKIN (4) Malignancy Code(s): C80.1 - MALIGNANT (PRIMARY) NEOPLASM, UNSPECIFIED Assessment/Plan Current Medications Generic Name Dose Route Start Last Admin Trade Name Freq PRN Reason Stop Dose Admin Al Hydroxide/Mg Hydroxide 30 ml 07/24/18 18:34 Mylanta Oral Suspension - PO Q6H PRN DYSPEPSIA Albuterol Sulfate 1 amp 07/24/18 18:34 Ventolin 0.083% Nebulizer Soln - NEB Q4H PRN SHORT OF BREATH/WHEEZING Aspirin 81 mg 07/25/18 10:00 Ecotrin - PO DAILY [facility] Budesonide/Formoterol Fumarate 2 puff 07/23/18 22:00 07/25/18 11:06 Symbicort 80/4.5mcg - IH 2 puff BID YAKOV Administration Buspirone HCl 15 mg 07/24/18 22:00 07/25/18 11:07 Buspar - PO 15 mg BID YAKOV Administration Insulin Aspart 1 vial 07/24/18 22:00 07/25/18 11:13 Novolog Vial Sliding Scale - SQ Not Given ACHS [facility] Protocol Insulin Detemir 40 units 07/24/18 22:00 07/24/18 22:20 Levemir Vial SQ Not Given HS YAKOV Methadone HCl 40 mg/ Methadone 70 mg 07/25/18 06:00 07/25/18 06:25 HCl 30 mg PO 70 mg 0600 [facility] Administration Metoprolol Tartrate 25 mg 07/24/18 22:00 07/25/18 11:07 Lopressor - PO 25 mg BID YAKOV Administration Nifedipine 30 mg 07/25/18 10:00 07/25/18 11:07 Procardia Xl - PO 30 mg DAILY YAK[facility] Administration Nitroglycerin 0.4 mg 07/24/18 18:34 Nitrostat - SL Q5M PRN FOR CHEST PAIN Ranitidine HCl 150 mg 07/25/18 10:00 07/25/18 11:07 Zantac - PO 150 mg DAILY [facility]AK[facility] Administration Sertraline HCl 50 mg 07/25/18 10:00 07/25/18 11:07 Zoloft - PO 50 mg DAILY [facility]AK[facility] Administration Tiotropium [place] 2 puff 07/23/18 17:00 07/25/18 11:08 Spiriva Respimat IH 2 puff DAILY [facility]AK[facility] Administration Laboratory Tests 07/20/18 07/21/18 07/22/18 14:50 05:30 05:30 Urine PEP Interpret Pending IDANIA M-Negrito Pending JEAN-PIERRE Screen Negative c-ANCA Pending Proteinase 3 (PR3) Pending p-ANCA Pending Atypical p-ANCA Pending Myeloperoxidase Ab Pending Double Strand DNA Ab 1 Glomerular Base Memb Ab 8 Free Milfay LC, Quant 900.8 H Free Lambda LC, Quant 22.4 Free Milfay/Lambda Ratio 40.21 H Impression 1. DARIO 2. CKD 3. chest pain 4. htn 5. DM 6. 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 Plan - renal function starting to improve - myeloma workup in progress - renal function is worsening - will continue to monitor renal function closely - renal workup is in progress Dr Cates
[2018-07-25 16:24] LABS: ATYPICAL pANCA <1:20 titer (Neg:<1:20); C-ANCA <1:20 titer (Neg:<1:20); P-ANCA <1:20 titer (Neg:<1:20)
[2018-07-25] MEDS: INSULIN (LEVEMIR) 100 UNITS/ML UNITS SQ SCH (21:40)
--- NOTE | 2018-07-25 21:50 | PROC ---
Bone Marrow Aspiration/Biopsy - Consent Risks and Benefits Explained: Yes Consent on Chart: Yes - Procedure Location: Left Iliac Crest Anesthesia: 1% Lidocaine Sterile Technique: Yes Specimen: Obtained (right lateral) Patient tolerated procedure: Well with minimal pain, Slight localized bleeding Sterile Dressing Applied: Yes Remarks: r/o myeloma
[2018-07-26] MEDS ORDERED: METHADONE HCL 10 MG TABLET ONE (05:15)
[2018-07-26] MEDS ORDERED: METHADONE HCL 40 MG DISPERSABLE TABLET ONE (05:15)
[2018-07-26] MEDS: METHADONE 40 MG, METHADONE 30 MG PO SCH (05:24)
[2018-07-26] MEDS: INSULIN SLIDING SCALE (NOVOLOG) 1 VIAL SQ SCH ×4 (06:22→21:59)
--- NOTE | 2018-07-26 10:57 | PN ---
Progress Note (short form) - Note Progress Note: PULMONARY Denies shortness of breath or chest pain. Vital Signs Period Temp Pulse Resp BP Sys/Andre Pulse Ox Last 24 Hr 97.7 F-98.3 F 57-64 18-20 118-156/53-84 95 Gen: NAD at rest Heart: RRR Lung: decreased breath sounds at the bases Abd: soft, nontender Ext: no edema CBC, BMP 07/25/18 06:40 07/25/18 06:40 Active Medications Al Hydroxide/Mg Hydroxide (Mylanta Oral Suspension -) 30 ml PO Q6H PRN PRN Reason: DYSPEPSIA Albuterol Sulfate (Ventolin 0.083% Nebulizer Soln -) 1 amp NEB Q4H PRN PRN Reason: SHORT OF BREATH/WHEEZING Aspirin (Ecotrin -) 81 mg PO DAILY [facility] Budesonide/Formoterol Fumarate (Symbicort 80/4.5mcg -) 2 puff IH BID [facility] Last Admin: 07/25/18 21:50 Dose: 2 puff Buspirone HCl (Buspar -) 15 mg PO BID [facility] Last Admin: 07/25/18 21:48 Dose: 15 mg Insulin Aspart (Novolog Vial Sliding Scale -) 1 vial SQ [facility]; Protocol Last Admin: 07/26/18 06:22 Dose: Not Given Insulin Detemir (Levemir Vial) 40 units SQ HS [facility] Last Admin: 07/25/18 21:40 Dose: Not Given Methadone HCl 40 mg/ Methadone (HCl 30 mg) 70 mg PO 0600 [facility] Last Admin: 07/26/18 05:24 Dose: 70 mg Metoprolol Tartrate (Lopressor -) 25 mg PO BID [facility] Last Admin: 07/25/18 21:49 Dose: 25 mg Nifedipine (Procardia Xl -) 30 mg PO DAILY [facility] Last Admin: 07/25/18 11:07 Dose: 30 mg Nitroglycerin (Nitrostat -) 0.4 mg SL Q5M PRN PRN Reason: FOR CHEST PAIN Ranitidine HCl (Zantac -) 150 mg PO DAILY [facility] Last Admin: 07/25/18 11:07 Dose: 150 mg Sertraline HCl (Zoloft -) 50 mg PO DAILY [facility] Last Admin: 07/25/18 11:07 Dose: 50 mg Tiotropium [place] (Spiriva Respimat) 2 puff IH DAILY [facility] Last Admin: 07/25/18 11:08 Dose: 2 puff A/P Acute COPD Exacerbation improved Acute on Chronic Renal Failure r/o Myeloma +Troponins likely Demand ISchemia DM Methadone Maintenance Suspect Obstructive Sleep Apnea - f/u bone marrow bx - inhaled bronchodilators as needed - O2 to keep SpO2 >90% - outpt PFTs, PSG - DVT prophylaxis
[2018-07-26] MEDS ORDERED: PT OWN MED DRAWER 7, Y5N ONE ×2 (11:11→21:32)
[2018-07-26] MEDS: METOPROLOL TARTRATE 25 MG TABLET (FP) PO SCH ×2 (11:13→22:00)
[2018-07-26] MEDS: RANITIDINE HCL 150 MG TABLET (FP) PO SCH (11:13)
[2018-07-26] MEDS: NIFEdipine E.R. 30 MG TABLET (FP) PO SCH (11:14)
[2018-07-26] MEDS: busPIRone HCL 5 MG TABLET PO SCH ×2 (11:14→22:00)
[2018-07-26] MEDS: SERTRALINE HCL 25 MG TABLET (FP) PO SCH (11:15)
[2018-07-26] MEDS: TIOTROPIUM BROMIDE 2.5 MCG (SPIRIVA) RESPIMAT INHALER IH SCH (11:16)
[2018-07-26] MEDS: BUDESONIDE/FORMETEROL FUMARATE 80/4.5 mcg INHALER IH SCH ×2 (11:16→22:01)
[2018-07-26] MEDS ORDERED: BUPIVACAINE HCL/PF 0.5% (5MG/ML) 10 ML VIAL ONE (12:14)
[2018-07-26] MEDS ORDERED: LIDOCAINE HCL 1%, 10 MG/ML (20ML VIAL) ONE (12:14)
--- NOTE | 2018-07-26 14:32 | PN ---
Progress Note, Physician History of Present Illness: Pt seen and examined at bedside. He is awake and alert. He is going for breast biopsy. - Current Medication List Current Medications: Active Medications Al Hydroxide/Mg Hydroxide (Mylanta Oral Suspension -) 30 ml PO Q6H PRN PRN Reason: DYSPEPSIA Albuterol Sulfate (Ventolin 0.083% Nebulizer Soln -) 1 amp NEB Q4H PRN PRN Reason: SHORT OF BREATH/WHEEZING Aspirin (Ecotrin -) 81 mg PO DAILY [facility] Budesonide/Formoterol Fumarate (Symbicort 80/4.5mcg -) 2 puff IH BID [facility] Last Admin: 07/26/18 11:16 Dose: 2 puff Buspirone HCl (Buspar -) 15 mg PO BID [facility] Last Admin: 07/26/18 11:14 Dose: 15 mg Insulin Aspart (Novolog Vial Sliding Scale -) 1 vial SQ ACHS [facility]; Protocol Last Admin: 07/26/18 11:23 Dose: Not Given Insulin Detemir (Levemir Vial) 40 units SQ HS [facility] Last Admin: 07/25/18 21:40 Dose: Not Given Methadone HCl 40 mg/ Methadone (HCl 30 mg) 70 mg PO 0600 [facility] Last Admin: 07/26/18 05:24 Dose: 70 mg Metoprolol Tartrate (Lopressor -) 25 mg PO BID [facility] Last Admin: 07/26/18 11:13 Dose: 25 mg Nifedipine (Procardia Xl -) 30 mg PO DAILY [facility] Last Admin: 07/26/18 11:14 Dose: 30 mg Nitroglycerin (Nitrostat -) 0.4 mg SL Q5M PRN PRN Reason: FOR CHEST PAIN Ranitidine HCl (Zantac -) 150 mg PO DAILY [facility] Last Admin: 07/26/18 11:13 Dose: 150 mg Sertraline HCl (Zoloft -) 50 mg PO DAILY [facility] Last Admin: 07/26/18 11:15 Dose: 50 mg Tiotropium [place] (Spiriva Respimat) 2 puff IH DAILY [facility] Last Admin: 07/26/18 11:16 Dose: 2 puff - Objective Vital Signs: Vital Signs Temperature 98.0 F 07/26/18 06:00 Pulse Rate 59 L 07/26/18 06:00 Respiratory Rate 20 07/26/18 06:00 Blood Pressure 141/72 07/26/18 06:00 O2 Sat by Pulse Oximetry (%) 95 07/25/18 21:00 Constitutional: Yes: Calm Eyes: Yes: Conjunctiva Clear HENT: Yes: Atraumatic Neck: Yes: Supple Cardiovascular: Yes: S1, S2 Respiratory: Yes: CTA Bilaterally Gastrointestinal: Yes: Soft Genitourinary: Yes: WNL Musculoskeletal: Yes: Back Pain Edema: Yes Edema: LLE: Trace, RLE: Trace Neurological: Yes: Oriented Psychiatric: Yes: Oriented Labs: CBC, BMP 07/25/18 06:40 07/25/18 06:40 INR, PTT INR 1.06 (0.83-1.09) 07/20/18 11:48 Problem List - Problems (1) DARIO (acute kidney injury) Code(s): N17.9 - ACUTE KIDNEY FAILURE, UNSPECIFIED (2) Chest pain Code(s): R07.9 - CHEST PAIN, UNSPECIFIED (3) Left sided numbness Code(s): R20.0 - ANESTHESIA OF SKIN (4) Malignancy Code(s): C80.1 - MALIGNANT (PRIMARY) NEOPLASM, UNSPECIFIED Assessment/Plan Current Medications Generic Name Dose Route Start Last Admin Trade Name Freq PRN Reason Stop Dose Admin Al Hydroxide/Mg Hydroxide 30 ml 07/24/18 18:34 Mylanta Oral Suspension - PO Q6H PRN DYSPEPSIA Albuterol Sulfate 1 amp 07/24/18 18:34 Ventolin 0.083% Nebulizer Soln - NEB Q4H PRN SHORT OF BREATH/WHEEZING Aspirin 81 mg 07/25/18 10:00 Ecotrin - PO DAILY [facility] Budesonide/Formoterol Fumarate 2 puff 07/23/18 22:00 07/26/18 11:16 Symbicort 80/4.5mcg - IH 2 puff BID YAKOV Administration Buspirone HCl 15 mg 07/24/18 22:00 07/26/18 11:14 Buspar - PO 15 mg BID YAKOV Administration Insulin Aspart 1 vial 07/24/18 22:00 07/26/18 11:23 Novolog Vial Sliding Scale - SQ Not Given ACHS [facility] Protocol Insulin Detemir 40 units 07/24/18 22:00 07/25/18 21:40 Levemir Vial SQ Not Given HS [facility] Methadone HCl 40 mg/ Methadone 70 mg 07/25/18 06:00 07/26/18 05:24 HCl 30 mg PO 70 mg 0600 [facility] Administration Metoprolol Tartrate 25 mg 07/24/18 22:00 07/26/18 11:13 Lopressor - PO 25 mg BID YAKOV Administration Nifedipine 30 mg 07/25/18 10:00 07/26/18 11:14 Procardia Xl - PO 30 mg DAILY [facility] Administration Nitroglycerin 0.4 mg 07/24/18 18:34 Nitrostat - SL Q5M PRN FOR CHEST PAIN Ranitidine HCl 150 mg 07/25/18 10:00 07/26/18 11:13 Zantac - PO 150 mg DAILY [facility] Administration Sertraline HCl 50 mg 07/25/18 10:00 07/26/18 11:15 Zoloft - PO 50 mg DAILY [facility] Administration Tiotropium [place] 2 puff 07/23/18 17:00 07/26/18 11:16 Spiriva Respimat IH 2 puff DAILY [facility] Administration Laboratory Tests 07/21/18 07/22/18 05:30 05:30 IDANIA M-Negrito Pending JEAN-PIERRE Screen Negative c-ANCA <1:20 Proteinase 3 (PR3) <3.5 p-ANCA <1:20 Atypical p-ANCA <1:20 Myeloperoxidase Ab <9.0 Double Strand DNA Ab 1 Glomerular Base Memb Ab 8 Impression 1. DARIO 2. CKD 3. chest pain 4. htn 5. DM 6. 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 Plan - check bmp - follow up bone marrow biopsy - follow up breast biopsy - renal workup in progress - will follow Dr Cates
--- NOTE | 2018-07-26 15:09 | OP ---
Operative Note - Note: Operative Date: 07/26/18 Pre-Operative Diagnosis: right breast/ chest wall mass Operation: excisonal biopsy right breast mass Findings: Right breast anterior chest wall mass, appears to be a sebaceous cyst. margins were grossly clear. counts correct. Implants: none Post-Operative Diagnosis: Same as Pre-op Surgeon: Emile Gunn Anesthesiologist/ASSOCIATE PROFESSOR OF GEOLOGY: Shan Freitas Anesthesia: General, Local (1% lidocaine with epinephrine and 0.5% marcaine 15ml ) Specimens Removed: right breast mass Estimated Blood Loss (mls): 2 Fluid Volume Replaced (mls): 500 Operative Report Dictated: Yes
[2018-07-26] MEDS ORDERED: PROPOFOL 20 ML ONE (15:53)
[2018-07-26] MEDS ORDERED: MIDAZOLAM HCL 2 MG/2 ML SINGLE DOSE VIAL ONE (15:53)
[2018-07-26] MEDS ORDERED: ceFAZolin SODIUM 1 GM VIAL ONE (16:24)
[2018-07-26] MEDS ORDERED: ceFAZolin SODIUM 1 GM VIAL IVPB ONE (16:25)
[2018-07-26] MEDS ORDERED: ONDANSETRON 4 MG/2 ML VIAL IVPUSH PRN (16:59)
[2018-07-26] MEDS ORDERED: LACTATED RINGERS SOLUTION 1,000 ML IV SCH (17:00)
[2018-07-26] MEDS ORDERED: MAG HYDROX/AL HYDROX/SIMETH 30 ML UNIT-DOSE CUP PO PRN (17:19)
[2018-07-26] MEDS ORDERED: ALBUTEROL SO4 0.083% IH SOL 2.5 MG/3 ML VIAL.NEB. NEB PRN (17:19)
[2018-07-26] MEDS ORDERED: NITROGLYCERIN SUBLINGUAL 1/150 0.4 MG TAB SL PRN (17:19)
--- NOTE | 2018-07-26 18:17 | PN ---
Physical Exam: SUBJECTIVE: Patient seen and examined OBJECTIVE: Vital Signs Period Temp Pulse Resp BP Sys/Andre Pulse Ox Last 24 Hr 97.6 F-98.7 F 52-62 18-20 138-156/65-84 94-98 GENERAL: The patient is awake, alert, and fully oriented LUNGS: Breath sounds decreased bilaterally, no wheezes, no crackles, no accessory muscle use. CHEST: Sterile gauze to right upper chest c/d/i; surgical incision not visualized BACK: Sterile gauze to lower middle back; site of bone biopsy not visualized HEART: Regular rate and rhythm, S1, S2 without murmur, rub or gallop. ABDOMEN: Obese, soft, nontender, nondistended, normoactive bowel sounds, no guarding, no rebound, no hepatosplenomegaly, no masses. EXTREMITIES: 2+ pulses, warm, well-perfused, no edema. Laboratory Results - last 24 hr 07/20/18 07/22/18 07/25/18 14:50 05:30 21:38 POC Glucometer 156 Nxysv-2-Onnbphuac (%) 7.3 Hpufx-0-Tiqwfbiih (%) 8.2 Beta Globulins (%) 14.1 Gamma Globulins (%) 11.2 M-Negrito % 5.8 H Urine Total Protein 113.0 Urine PEP Interpret 59.2 HCV Quantitation Hcv not detected HCV RNA log copies/mL TNP Ref Test Comments 07/26/18 07/26/18 07/26/18 05:23 11:22 17:27 POC Glucometer 139 150 90 Fvuiq-9-Cnnsxjazb (%) Nyact-3-Cdtjbolby (%) Beta Globulins (%) Gamma Globulins (%) M-Negrito % Urine Total Protein Urine PEP Interpret HCV Quantitation HCV RNA log copies/mL Ref Test Comments Active Medications Generic Name Dose Route Start Last Admin Trade Name Freq PRN Reason Stop Dose Admin Al Hydroxide/Mg Hydroxide 30 ml 07/26/18 17:19 Mylanta Oral Suspension - PO Q6H PRN DYSPEPSIA Albuterol Sulfate 1 amp 07/26/18 17:19 Ventolin 0.083% Nebulizer Soln - NEB Q4H PRN SHORT OF BREATH/WHEEZING Aspirin 81 mg 07/27/18 10:00 Ecotrin - PO DAILY [facility] Budesonide/Formoterol Fumarate 2 puff 07/26/18 22:00 Symbicort 80/4.5mcg - IH BID [facility] Buspirone HCl 15 mg 07/26/18 22:00 Buspar - PO BID [facility] Insulin Aspart 1 vial 07/26/18 22:00 Novolog Vial Sliding Scale - SQ ACHS [facility] Protocol Insulin Detemir 40 units 07/26/18 22:00 Levemir Vial SQ HS [facility] Methadone HCl 40 mg/ Methadone 70 mg 07/27/18 06:00 HCl 30 mg PO 0600 [facility] Metoprolol Tartrate 25 mg 07/26/18 22:00 Lopressor - PO BID [facility] Nifedipine 30 mg 07/27/18 10:00 Procardia Xl - PO DAILY [facility] Nitroglycerin 0.4 mg 07/26/18 17:19 Nitrostat - SL Q5M PRN FOR CHEST PAIN Ranitidine HCl 150 mg 07/27/18 10:00 Zantac - PO DAILY [facility] Sertraline HCl 50 mg 07/27/18 10:00 Zoloft - PO DAILY [facility] Tiotropium [place] 2 puff 07/27/18 10:00 Spiriva Respimat IH DAILY [facility] ASSESSMENT/PLAN 62 year-old male with a PMH significant for HTN, HLD, NIDDM, diabetic foot ulcers, asthma, PAD, hepatitis C, depression, and opioid dependence. Admitted for hypertensive emergency. Complicated hospital course. Hypertensive emergency - resolved Hypertension Hypertensive cardiomyopathy - Continue Procardia, Lopressor - Enalapril discontinued secondary to DARIO Systolic heart failure - 07/21/18 Echo: normal size LV with mildly reduced systolic function, EF 45- 50%, mild global hypokinesis; normal RV; trace TR --not on diuretics Acute kidney injury on probable stage 3 CKD - Cr 1.7 trending down, peaked @ 2.6 on 07/22, likely LEFTY (contrast load ); baseline 1.0 - continue to hold metformin, enalapril - US renal shows normal kidneys Osteolytic lesions of left superior pubic ramus, lumbar and thoracic spine - 07/20 CTA: multiple osteolytic lesions suggestive of metastatic disease vs multiple myeloma - 07/24 MRI T&L spine: L2-L3, L3-L4 pathological bone marrow replacement - SPEP, UPEP, PSA pending - bedside bone biopsy 07/26 - Heme/onc following Right chest subcutaneous lesion - 07/25 Mammo: 2.2 x 1.5 x 2.5cm largely calcified mass lower inner quadrant right breast - excision performed in OR today, looks like sebaceous cyst - surgery following Hyponatremia --resolved NIDDM - Continue Levemir, Novolog sliding scale - Metformin discontinued secondary to DARIO Depression - Continue Zoloft Opioid dependence - Continue methadone Asthma, probable COPD - Continue Advair, Albuterol nebs as needed - Pulmonary following History of hepatitis C --s/p Harvoni treatment --stable FEN Fluids: PO intake adequate Electrolytes: replete as indicated Nutrition: diabetic, low sodium DVT prophylaxis: subq heparin Physical therapy Dispo: continues to require inpatient care. Full code. Visit type - Emergency Visit Emergency Visit: Yes ED Registration Date: 07/20/18 Care time: The patient presented to the Emergency Department on the above date and was hospitalized for further evaluation of their emergent condition. - New Patient This patient is new to me today: No - Critical Care Critical Care patient: No
[2018-07-26 19:12] LABS: ANION GAP 6 MMOL/L (8-16); BLOOD UREA NITROGEN 33 mg/dL (7-18); CHLORIDE 106 mmol/L (98-107); CO2 28 mmol/L (21-32); CREATININE 1.7 mg/dL (0.55-1.3); GLUCOSE,RANDOM 86 mg/dL (74-106); POTASSIUM 5.2 mmol/L (3.5-5.1); SODIUM 141 mmol/L (136-145)
[2018-07-26] MEDS ORDERED: INSULIN (NOVOLOG) ASPART 100 UNITS/ML 10ML VIAL ONE (21:32)
[2018-07-26] MEDS ORDERED: INSULIN (LEVEMIR) 100 UNITS/ML UNITS SQ SCH (22:00)
[2018-07-27] MEDS ORDERED: METHADONE HCL 10 MG TABLET ONE (05:26)
[2018-07-27] MEDS ORDERED: METHADONE HCL 40 MG DISPERSABLE TABLET ONE (05:26)
[2018-07-27] MEDS ORDERED: METHADONE 40 MG, METHADONE 30 MG PO SCH (06:00)
[2018-07-27] MEDS: INSULIN SLIDING SCALE (NOVOLOG) 1 VIAL SQ SCH ×2 (06:21→12:05)
[2018-07-27] MEDS ORDERED: INSULIN (LEVEMIR) 100 UNITS/ML UNITS SQ ONE (06:59)
[2018-07-27] MEDS ORDERED: PT OWN MED DRAWER 7, Y5N ONE ×3 (07:00→11:59)
[2018-07-27] MEDS ORDERED: INSULIN (NOVOLOG) ASPART 100 UNITS/ML 10ML VIAL ONE (07:00)
[2018-07-27 09:00] LABS: ANION GAP 5 MMOL/L (8-16); BLOOD UREA NITROGEN 33 mg/dL (7-18); CALCIUM 8.4 mg/dL (8.5-10.1); CHLORIDE 103 mmol/L (98-107); CO2 27 mmol/L (21-32); CREATININE 1.6 mg/dL (0.55-1.3); GLUCOSE,RANDOM 113 mg/dL (74-106); POTASSIUM 5.2 mmol/L (3.5-5.1); SODIUM 135 mmol/L (136-145)
[2018-07-27] MEDS ORDERED: BISACODYL 10 MG SUPP.RECT PR ONE (09:12)
[2018-07-27] MEDS: busPIRone HCL 5 MG TABLET PO SCH (09:32)
[2018-07-27] MEDS: METOPROLOL TARTRATE 25 MG TABLET (FP) PO SCH (09:32)
[2018-07-27] MEDS: BUDESONIDE/FORMETEROL FUMARATE 80/4.5 mcg INHALER IH SCH (09:33)
[2018-07-27] MEDS ORDERED: NIFEdipine E.R. 30 MG TABLET (FP) PO SCH (10:00)
[2018-07-27] MEDS ORDERED: ASPIRIN COATED 81 MG TABLET.EC PO SCH (10:00)
[2018-07-27] MEDS ORDERED: SERTRALINE HCL 25 MG TABLET (FP) PO SCH (10:00)
[2018-07-27] MEDS ORDERED: TIOTROPIUM BROMIDE 2.5 MCG (SPIRIVA) RESPIMAT INHALER IH SCH (10:00)
[2018-07-27] MEDS ORDERED: RANITIDINE HCL 150 MG TABLET (FP) PO SCH (10:00)
[2018-07-27] MEDS ORDERED: POLYETHYLENE GLYCOL 3350 119 GM BTL PO SCH (10:00)
--- NOTE | 2018-07-27 10:56 | PN ---
Progress Note (short form) - Note Progress Note: Anesthesia POD#1 S/P Excision Chest Mass under MAC VSS,mild pain,no N/V. Cordelia Helm.
--- NOTE | 2018-07-27 11:35 | PN ---
Progress Note, Physician History of Present Illness: Heme/Onc Patient feels well. s/p bone marrow biopsy 2 days ago s/p biopsy of right chest wall mass yesterday Creatinine improved today went to see patient multiple times yesterday but patient was not in his room due to going to the OR. - Current Medication List Current Medications: Active Medications Al Hydroxide/Mg Hydroxide (Mylanta Oral Suspension -) 30 ml PO Q6H PRN PRN Reason: DYSPEPSIA Albuterol Sulfate (Ventolin 0.083% Nebulizer Soln -) 1 amp NEB Q4H PRN PRN Reason: SHORT OF BREATH/WHEEZING Aspirin (Ecotrin -) 81 mg PO DAILY [facility] Budesonide/Formoterol Fumarate (Symbicort 80/4.5mcg -) 2 puff IH BID [facility] Last Admin: 07/27/18 09:33 Dose: 2 puff Buspirone HCl (Buspar -) 15 mg PO BID [facility] Last Admin: 07/27/18 09:32 Dose: 15 mg Docusate Sodium (Colace -) 300 mg PO [facility] Insulin Aspart (Novolog Vial Sliding Scale -) 1 vial SQ [facility]; Protocol Last Admin: 07/27/18 06:21 Dose: Not Given Insulin Detemir (Levemir Vial) 40 units SQ [facility] Last Admin: 07/26/18 21:57 Dose: 40 unit Methadone HCl 40 mg/ Methadone (HCl 30 mg) 70 mg PO 0600 [facility] Last Admin: 07/27/18 06:21 Dose: 70 mg Metoprolol Tartrate (Lopressor -) 25 mg PO BID [facility] Last Admin: 07/27/18 09:32 Dose: 25 mg Nifedipine (Procardia Xl -) 30 mg PO DAILY [facility] Last Admin: 07/27/18 09:31 Dose: 30 mg Nitroglycerin (Nitrostat -) 0.4 mg SL Q5M PRN PRN Reason: FOR CHEST PAIN Polyethylene Glycol (Miralax (For Daily Use) -) 17 gm PO BID [facility] Last Admin: 07/27/18 09:31 Dose: 17 gm Ranitidine HCl (Zantac -) 150 mg PO DAILY [facility] Last Admin: 07/27/18 09:32 Dose: 150 mg Sertraline HCl (Zoloft -) 50 mg PO DAILY [facility] Last Admin: 07/27/18 09:32 Dose: 50 mg Tiotropium [place] (Spiriva Respimat) 2 puff IH DAILY [facility] Last Admin: 07/27/18 09:33 Dose: 2 puff - Objective Vital Signs: Vital Signs Temperature 98.2 F 07/27/18 05:00 Pulse Rate 56 L 07/27/18 05:00 Respiratory Rate 20 07/27/18 05:00 Blood Pressure 135/66 07/27/18 05:00 O2 Sat by Pulse Oximetry (%) 93 L 07/26/18 21:00 Constitutional: Yes: Well Nourished, No Distress, Calm HENT: Yes: Atraumatic, Normocephalic Neck: Yes: Supple, Trachea Midline Cardiovascular: Yes: Regular Rate and Rhythm, S1, S2 Respiratory: Yes: CTA Bilaterally Breast(s): Yes: Right (Wound dressed) Edema: LLE: Trace, RLE: Trace Back: bone marrow biopsy site C/D/I Labs: CBC, BMP 07/25/18 06:40 07/27/18 08:00 INR, PTT INR 1.06 (0.83-1.09) 07/20/18 11:48 Assessment/Plan Lumbar Spine MRI L2-L3. 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 L3-L4. Pathological bone marrow replacement is seen in the spinous process of L3 , posterior lamina , inferior articular processes with cortical disruption, extension into posterior epidural space effacing the posterior epidural fat, mildly deforming the dorsal surface of the thecal sac. No evidence of disc herniation, spinal canal stenosis, neural foraminal stenosis. Thoracic Spine MRI T5-T6. Calcified thickened ligamentum flavum. Benign focus of increased signal intensity noted in the posterior superior aspect of T6 vertebral body. T6-T7. Mild recess compression deformity of the superior endplate of T7 with band of bone marrow edema in the superior aspect of T7 parallel to the compressed endplate with intact posterior cortex. Thoracic spine. No evidence of disc herniation. No evidence of central spinal canal stenosis. No evidence of cord compression. Normal signal intensity of the spinal cord. C2-C3. Mild central spinal canal stenosis. Posterior disc osteophyte complex, thickened ligamentum flavum. C4-C5. Posterior disc osteophyte complex. Mildly thickened ligamentum flavum. A/P: 62 yo male with multiple medical problems including HTN, HLD, DM, diabetic foot ulcer, PVD, HepC s/p harvoni, and previous opioid abuse on methadone who presented to the emergency room with chest pain and left arm numbness. Given his symptoms upon presentation he was worked up with a CTA of chest and abdomen was performed to rule out dissection. CTA revealed multiple lytic lesions in the superior pubic ramus, vertebrl bodies, and possible thecal sac indentation at L3. Patient also has renal failure. Concern for multiple myeloma f/u multiple myeloma work-up: Pending JEAN-PIERRE screen negative Free [place] Elevated [place]/Lambda ratio elevated s/p bone marrow biopsy and excisional biopsy of right breast mass MRI L spine noted MRI T spine noted will consider steroids/velcade once diagnosis confirmed Creatinine Stable Patient will need to follow up with Dr. Mobley for follow up of bone marrow biopsy and right breast biopsy results Patient has requested to see me for primary care card given and info added to discharge instructions. I see patients on from 1-430pm patient can come see me in 1-2 weeks
--- NOTE | 2018-07-27 11:45 | PN ---
Progress Note, Physician History of Present Illness: Pt seen and examined at bedside. He is awake and alert. He complains of shortness of breath and lower extremity edema. - Current Medication List Current Medications: Active Medications Al Hydroxide/Mg Hydroxide (Mylanta Oral Suspension -) 30 ml PO Q6H PRN PRN Reason: DYSPEPSIA Albuterol Sulfate (Ventolin 0.083% Nebulizer Soln -) 1 amp NEB Q4H PRN PRN Reason: SHORT OF BREATH/WHEEZING Aspirin (Ecotrin -) 81 mg PO DAILY [facility] Budesonide/Formoterol Fumarate (Symbicort 80/4.5mcg -) 2 puff IH BID [facility] Last Admin: 07/27/18 09:33 Dose: 2 puff Buspirone HCl (Buspar -) 15 mg PO BID [facility] Last Admin: 07/27/18 09:32 Dose: 15 mg Docusate Sodium (Colace -) 300 mg PO HS [facility] Insulin Aspart (Novolog Vial Sliding Scale -) 1 vial SQ [facility]; Protocol Last Admin: 07/27/18 06:21 Dose: Not Given Insulin Detemir (Levemir Vial) 40 units SQ [facility] Last Admin: 07/26/18 21:57 Dose: 40 unit Methadone HCl 40 mg/ Methadone (HCl 30 mg) 70 mg PO 0600 [facility] Last Admin: 07/27/18 06:21 Dose: 70 mg Metoprolol Tartrate (Lopressor -) 25 mg PO BID [facility] Last Admin: 07/27/18 09:32 Dose: 25 mg Nifedipine (Procardia Xl -) 30 mg PO DAILY [facility] Last Admin: 07/27/18 09:31 Dose: 30 mg Nitroglycerin (Nitrostat -) 0.4 mg SL Q5M PRN PRN Reason: FOR CHEST PAIN Polyethylene Glycol (Miralax (For Daily Use) -) 17 gm PO BID [facility] Last Admin: 07/27/18 09:31 Dose: 17 gm Ranitidine HCl (Zantac -) 150 mg PO DAILY [facility] Last Admin: 07/27/18 09:32 Dose: 150 mg Sertraline HCl (Zoloft -) 50 mg PO DAILY [facility] Last Admin: 07/27/18 09:32 Dose: 50 mg Tiotropium [place] (Spiriva Respimat) 2 puff IH DAILY [facility] Last Admin: 07/27/18 09:33 Dose: 2 puff - Objective Vital Signs: Vital Signs Temperature 98.2 F 07/27/18 05:00 Pulse Rate 56 L 07/27/18 05:00 Respiratory Rate 20 07/27/18 05:00 Blood Pressure 135/66 07/27/18 05:00 O2 Sat by Pulse Oximetry (%) 93 L 07/26/18 21:00 Constitutional: Yes: Calm Eyes: Yes: Conjunctiva Clear HENT: Yes: Atraumatic Cardiovascular: Yes: S1, S2 Respiratory: Yes: On Nasal O2, Rhonchi Gastrointestinal: Yes: Normal Bowel Sounds, Soft Genitourinary: Yes: WNL Musculoskeletal: Yes: Back Pain Edema: Yes Edema: LLE: 1+, RLE: 1+ Neurological: Yes: Oriented Psychiatric: Yes: Oriented Labs: CBC, BMP 07/25/18 06:40 07/27/18 08:00 INR, PTT INR 1.06 (0.83-1.09) 07/20/18 11:48 Problem List - Problems (1) DARIO (acute kidney injury) Code(s): N17.9 - ACUTE KIDNEY FAILURE, UNSPECIFIED (2) Chest pain Code(s): R07.9 - CHEST PAIN, UNSPECIFIED (3) Left sided numbness Code(s): R20.0 - ANESTHESIA OF SKIN (4) Malignancy Code(s): C80.1 - MALIGNANT (PRIMARY) NEOPLASM, UNSPECIFIED Assessment/Plan Current Medications Generic Name Dose Route Start Last Admin Trade Name Freq PRN Reason Stop Dose Admin Al Hydroxide/Mg Hydroxide 30 ml 07/26/18 17:19 Mylanta Oral Suspension - PO Q6H PRN DYSPEPSIA Albuterol Sulfate 1 amp 07/26/18 17:19 Ventolin 0.083% Nebulizer Soln - NEB Q4H PRN SHORT OF BREATH/WHEEZING Aspirin 81 mg 07/27/18 10:00 Ecotrin - PO DAILY [facility] Budesonide/Formoterol Fumarate 2 puff 07/26/18 22:00 07/27/18 09:33 Symbicort 80/4.5mcg - IH 2 puff BID [facility] Administration Buspirone HCl 15 mg 07/26/18 22:00 07/27/18 09:32 Buspar - PO 15 mg BID [facility] Administration Docusate Sodium 300 mg 07/27/18 22:00 Colace - PO HS [facility] Insulin Aspart 1 vial 07/26/18 22:00 07/27/18 06:21 Novolog Vial Sliding Scale - SQ Not Given ACHS [facility] Protocol Insulin Detemir 40 units 07/26/18 22:00 07/26/18 21:57 Levemir Vial SQ 40 unit HS [facility] Administration Methadone HCl 40 mg/ Methadone 70 mg 07/27/18 06:00 07/27/18 06:21 HCl 30 mg PO 70 mg 0600 [facility] Administration Metoprolol Tartrate 25 mg 07/26/18 22:00 07/27/18 09:32 Lopressor - PO 25 mg BID [facility] Administration Nifedipine 30 mg 07/27/18 10:00 07/27/18 09:31 Procardia Xl - PO 30 mg DAILY [facility] Administration Nitroglycerin 0.4 mg 07/26/18 17:19 Nitrostat - SL Q5M PRN FOR CHEST PAIN Polyethylene Glycol 17 gm 07/27/18 10:00 07/27/18 09:31 Miralax (For Daily Use) - PO 17 gm BID [facility] Administration Ranitidine HCl 150 mg 07/27/18 10:00 07/27/18 09:32 Zantac - PO 150 mg DAILY [facility] Administration Sertraline HCl 50 mg 07/27/18 10:00 07/27/18 09:32 Zoloft - PO 50 mg DAILY [facility] Administration Tiotropium [place] 2 puff 07/27/18 10:00 07/27/18 09:33 Spiriva Respimat IH 2 puff DAILY [facility] Administration Impression 1. DARIO 2. CKD 3. chest pain 4. htn 5. DM 6. 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 hyperkalemia Plan - will give a dose of lasix. Pt was on a thiazide at home. Lasix will also help with the hyperkalemia - low potassium diet - follow up bone marrow - breast biopsy likely sebaceous cyst - renal workup in progress - will follow Dr Cates
[2018-07-27] MEDS ORDERED: FUROSEMIDE 40 MG TABLET (FP) PO ONE (12:00)
--- NOTE | 2018-07-27 13:13 | PN ---
Progress Note, Physician History of Present Illness: PULMONARY ALERT,COMFORTABLE,MILD SOB EARLIER IMPROVED WITH NEBS - Current Medication List Current Medications: Active Medications Al Hydroxide/Mg Hydroxide (Mylanta Oral Suspension -) 30 ml PO Q6H PRN PRN Reason: DYSPEPSIA Albuterol Sulfate (Ventolin 0.083% Nebulizer Soln -) 1 amp NEB Q4H PRN PRN Reason: SHORT OF BREATH/WHEEZING Aspirin (Ecotrin -) 81 mg PO DAILY [facility] Last Admin: 07/27/18 12:08 Dose: 81 mg Budesonide/Formoterol Fumarate (Symbicort 80/4.5mcg -) 2 puff IH BID [facility] Last Admin: 07/27/18 09:33 Dose: 2 puff Buspirone HCl (Buspar -) 15 mg PO BID [facility] Last Admin: 07/27/18 09:32 Dose: 15 mg Docusate Sodium (Colace -) 300 mg PO [facility] Insulin Aspart (Novolog Vial Sliding Scale -) 1 vial SQ [facility]; Protocol Last Admin: 07/27/18 12:05 Dose: Not Given Insulin Detemir (Levemir Vial) 40 units SQ [facility] Last Admin: 07/26/18 21:57 Dose: 40 unit Methadone HCl 40 mg/ Methadone (HCl 30 mg) 70 mg PO 0600 [facility] Last Admin: 07/27/18 06:21 Dose: 70 mg Metoprolol Tartrate (Lopressor -) 25 mg PO BID [facility] Last Admin: 07/27/18 09:32 Dose: 25 mg Nifedipine (Procardia Xl -) 30 mg PO DAILY [facility] Last Admin: 07/27/18 09:31 Dose: 30 mg Nitroglycerin (Nitrostat -) 0.4 mg SL Q5M PRN PRN Reason: FOR CHEST PAIN Polyethylene Glycol (Miralax (For Daily Use) -) 17 gm PO BID [facility] Last Admin: 07/27/18 09:31 Dose: 17 gm Ranitidine HCl (Zantac -) 150 mg PO DAILY [facility] Last Admin: 07/27/18 09:32 Dose: 150 mg Sertraline HCl (Zoloft -) 50 mg PO DAILY [facility] Last Admin: 07/27/18 09:32 Dose: 50 mg Tiotropium [place] (Spiriva Respimat) 2 puff IH DAILY [facility] Last Admin: 07/27/18 09:33 Dose: 2 puff - Objective Vital Signs: Vital Signs Temperature 98.2 F 07/27/18 05:00 Pulse Rate 56 L 07/27/18 05:00 Respiratory Rate 20 07/27/18 05:00 Blood Pressure 135/66 07/27/18 05:00 O2 Sat by Pulse Oximetry (%) 93 L 07/26/18 21:00 Constitutional: Yes: Well Nourished, Calm Eyes: Yes: WNL HENT: Yes: WNL Neck: Yes: WNL Cardiovascular: Yes: Regular Rate and Rhythm, S1, S2 Respiratory: Yes: CTA Bilaterally Gastrointestinal: Yes: Normal Bowel Sounds, Soft Extremities: Yes: WNL Edema: Yes Labs: CBC, BMP 07/25/18 06:40 07/27/18 08:00 INR, PTT INR 1.06 (0.83-1.09) 07/20/18 11:48 Problem List - Problems (1) Hypertensive emergency Code(s): I16.1 - HYPERTENSIVE EMERGENCY (2) Chest pain Code(s): R07.9 - CHEST PAIN, UNSPECIFIED (3) Type 2 diabetes mellitus with foot ulcer Code(s): E11.621 - TYPE 2 DIABETES MELLITUS WITH FOOT ULCER; L97.509 - NON- PRESSURE CHRONIC ULCER OTH PRT UNSP FOOT W UNSP SEVERITY Qualifiers: (4) Asthma Code(s): J45.909 - UNSPECIFIED ASTHMA, UNCOMPLICATED (5) Hepatitis C Code(s): B19.20 - UNSPECIFIED VIRAL HEPATITIS C WITHOUT HEPATIC COMA (6) Hypertension Code(s): I10 - ESSENTIAL (PRIMARY) HYPERTENSION (7) Dyspnea Code(s): R06.00 - DYSPNEA, UNSPECIFIED (8) Troponin I above reference range Code(s): R74.8 - ABNORMAL LEVELS OF OTHER SERUM ENZYMES Assessment/Plan IMP DYSPNEA LIKELY SECONDARY TO COPD/ASTHMA IMPROVED S/P HYPERTENSIVE EMERGENCY ACUTE ON CHRONIC KIDNEY DISEASE DM OSTEOLYTIC LESIONS CP + TROPONIN OSAS AHI 66.1 ON SLEEP SCREEN PLAN INHALED BRONCHODILATORS O2 CHECK O2 SAT WITH EXERTION ON RA PFTS OUTPATIENTS CONSIDER ONCOLOGY EVALUATION FORMAL SLEEP STUDIES OUTPATIENT DR WAGNER Problem List - Problems (1) Hypertensive emergency Code(s): I16.1 - HYPERTENSIVE EMERGENCY (2) Chest pain Code(s): R07.9 - CHEST PAIN, UNSPECIFIED (3) Type 2 diabetes mellitus with foot ulcer Code(s): E11.621 - TYPE 2 DIABETES MELLITUS WITH FOOT ULCER; L97.509 - NON- PRESSURE CHRONIC ULCER OTH PRT UNSP FOOT W UNSP SEVERITY Qualifiers: (4) Asthma Code(s): J45.909 - UNSPECIFIED ASTHMA, UNCOMPLICATED (5) Hepatitis C Code(s): B19.20 - UNSPECIFIED VIRAL HEPATITIS C WITHOUT HEPATIC COMA (6) Hypertension Code(s): I10 - ESSENTIAL (PRIMARY) HYPERTENSION (7) Dyspnea Code(s): R06.00 - DYSPNEA, UNSPECIFIED (8) Troponin I above reference range Code(s): R74.8 - ABNORMAL LEVELS OF OTHER SERUM ENZYMES
--- NOTE | 2018-07-27 13:43 | DS ---
Physical Exam: SUBJECTIVE: Patient seen and examined OBJECTIVE: Vital Signs Period Temp Pulse Resp BP Sys/Andre Pulse Ox Last 24 Hr 97.6 F-98.7 F 52-60 18-20 135-146/62-78 93-98 PHYSICAL EXAM GENERAL: The patient is awake, alert, and fully oriented, in no acute distress. HEAD: Normal with no signs of trauma. EYES: PERRL, extraocular movements intact, sclera anicteric, conjunctiva clear. ENT: Ears normal, nares patent, oropharynx clear without exudates, moist mucous membranes. NECK: Trachea midline, full range of motion, supple. LUNGS: Breath sounds equal, clear to auscultation bilaterally, no wheezes, no crackles, no accessory muscle use. HEART: Regular rate and rhythm, S1, S2 without murmur, rub or gallop. ABDOMEN: Soft, nontender, nondistended, normoactive bowel sounds, no guarding, no rebound, no hepatosplenomegaly, no masses. EXTREMITIES: 2+ pulses, warm, well-perfused, no edema. NEUROLOGICAL: Cranial nerves II through XII grossly intact. Normal speech, gait not observed. PSYCH: Normal mood, normal affect. SKIN: Warm, dry, normal turgor, no rashes or lesions noted. LABS Laboratory Results - last 24 hr 07/21/18 07/22/18 07/26/18 05:30 05:30 17:27 Sodium Potassium Chloride Carbon Dioxide Anion Gap BUN Creatinine Creat Clearance w eGFR POC Glucometer 90 Random Glucose Calcium Total Protein (PEP) 6.1 Albumin (PEP) 2.8 L Globulin 3.3 Albumin/Globulin Ratio 0.8 Beta Globulins 1.1 IDANIA M-Negrito Not observed HCV Quantitation Hcv not detected HCV RNA log copies/mL TNP 07/26/18 07/26/18 07/27/18 18:00 21:57 06:18 Sodium 141 Potassium 5.2 H Chloride 106 Carbon Dioxide 28 Anion Gap 6 L BUN 33 H Creatinine 1.7 H Creat Clearance w eGFR 40.78 POC Glucometer 194 144 Random Glucose 86 Calcium 9.0 Total Protein (PEP) Albumin (PEP) Globulin Albumin/Globulin Ratio Beta Globulins IDANIA M-Negrito HCV Quantitation HCV RNA log copies/mL 07/27/18 07/27/18 08:00 11:32 Sodium 135 L Potassium 5.2 H Chloride 103 Carbon Dioxide 27 Anion Gap 5 L BUN 33 H Creatinine 1.6 H Creat Clearance w eGFR 43.74 POC Glucometer 109 Random Glucose 113 H Calcium 8.4 L Total Protein (PEP) Albumin (PEP) Globulin Albumin/Globulin Ratio Beta Globulins IDANIA M-Negrito HCV Quantitation HCV RNA log copies/mL HOSPITAL COURSE: Date of Admission:07/20/18 Date of Discharge: 07/27/18 Minutes to complete discharge: 35 Discharge Summary Reason For Visit: ACUTE KIDNEY INJURY, NUMBNESS ON LEFT SIDE, Current Active Problems DARIO (acute kidney injury) (Acute) Chest pain (Acute) Dyspnea (Acute) Hypertensive emergency (Acute) Left sided numbness (Acute) Malignancy (Acute) Mass of right breast (Acute) Troponin I above reference range (Acute) Condition: Improved - Instructions Diet, Activity, Other Instructions: Postoperative instructions: You had a excison of right breast mass on [address] Emile Gunn of [facility]. Activity: Resume your usual activities gradually, but no heavy exertion or lifting more than 10-15 pounds for 4-6 weeks. Remove dressings 48 hours after surgery, if they are not already off. You may shower daily starting then, just pat the incision areas dry. No bath or swimming until skin incisions have healed. [place] should not need to be recovered with any dressings, unless you have been told otherwise. Eat lightly at first, but advance to your usual diet as tolerated. Pain: For pain, you may use and alternate Tylenol (acetaminophen) 1-2 pills and/ or ibuprofen 200 mg (1-3 pills) every 6 hours each as needed; this means that you can take one OR the other at 3-hour intervals. If you are prescribed a Tylenol/narcotic combination for severe pain, use it instead of plain Tylenol as needed and switch back when your pain starts decreasing. Do not take more than 4000 mg of acetaminophen in a day. Take medications as prescribed or indicated on the labeling. Follow-up: Call Dr. Gunn' office at [phone] to make your postop appointment (Wednesday in approximately 2 weeks after surgery as advised). Clinic is held in the Diagnostic Center on the first floor of [facility]. Call the office if you have: * increasing pain not responsive to pain medication * fever of 101F or higher * unusual or increasing bleeding or drainage from wounds * increasing redness or swelling at wound sites Also, see your primary medical doctor within 1-2 weeks. You requested to Start seeing Dr. Zafar for primary care. Please call [phone] for an appointment. I see patient's from 1-430pm. You must request my name as there are other doctors who work there. Referrals: Quinn Zafar, RIC [Resident] - 2 Weeks (I see patient's on 1- please call for appointment) Disposition: HOME - Home Medications Comprehensive Discharge Medication List: Ambulatory Orders Albuterol Sulfate Inhaler - [Ventolin HFA Inhaler -] 2 puff PO QID PRN 06/07/15 Aspirin [Aspirin EC] 81 mg PO DAILY 06/07/15 Enalapril Maleate [Vasotec -] 20 mg PO DAILY 06/07/15 Insulin Glargine,Hum.rec.anlog [Lantus (10mL VIAL) -] 40 unit SQ HS 06/07/15 Salmeterol/Fluticasone [Advair 100Mcg/50Mcg -] 1 puff PO BID 06/07/15 Sertraline HCl 50 mg PO DAILY 06/07/15 metFORMIN HCL [Metformin HCl] 1,000 mg PO BID 06/07/15 Acetaminophen [Tylenol .Regular Strength -] 650 mg PO Q6H PRN #0 tablet Methadone [Dolophine -] 70 mg PO DAILY 01/30/16 Buspirone HCl 15 mg PO BID 07/22/18 This patient is new to me today: No Emergency Visit: Yes ED Registration Date: 07/20/18 Care time: The patient presented to the Emergency Department on the above date and was hospitalized for further evaluation of their emergent condition. Critical Care patient: No - Discharge Referral Referred to [facility] Med P.C.: No
[2018-07-27 14:22] VITALS: BP 146/67; PULSE 57; TEMP 97.7
[2018-07-27] MEDS ORDERED: DOCUSATE SODIUM 100 MG CAPSULE (FP) PO SCH (22:00)
--- NOTE | 2018-07-29 15:37 | PATH ---
Surgical Pathology Report Patient Name: SHALONDA ROTH [facility]. Rec. #: [id number] /Age/Gender: 1955 (Age: 62) / M Account: [id number] Location: [address] [place] [address]/[facility] Taken: 07/26/2018 Received: 07/27/2018 Reported: 07/29/2018 Physicians: Enrico Hager M.D. 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 PORTION OF UNREMARKABLE SKIN. Electronically Signed Laina Salomon M.D. Gross Description Received in formalin labeled "right breast and chest wall mass," is a 3.4 x 3.0 x 1.5 cm aggregate of abundant little, focally calcified fragments of soft tissue. Also received within the same container is a 1.6 x 0.5 cm little, unremarkable skin ellipse. Field Applications Specialist sections are submitted in 4 cassettes, following decalcification. /07/27/2018 saudi07/27/2018
--- NOTE | 2018-08-02 13:20 | PATH ---
Surgical Pathology Report Patient Name: SHALONDA ROTH Med. Rec. #: [id number] /Age/Gender: 1955 (Age: 62) / M Account: [id number] Location: [address] [place] [address]/[facility] Taken: 07/26/2018 Received: 07/26/2018 Reported: 08/02/2018 Physicians: Enrico Cook ACNP Specimen(s) Received A: BONE MARROW BIOPSY B: BONE MARROW CLOT C: 2 GREEN AND 2 LAVENDER TOP TUBES D: 11 ASPIRATION SMEARS Clinical History Rule out multiple myeloma Final Diagnosis A-D. BONE MARROW, ASPIRATE, CORE, PARTICLE CLOT, BIOPSY: INVOLVEMENT BY PLASMA CELL NEOPLASM (KAPPA-RESTRICTED). SUBOPTIMAL SPECIMEN FOR EVALUATION OF EXTENT INVOLVEMENT. SEE COMMENT. Comment: Flow cytometric analysis of the bone marrow showed a population of clonal plasma cells that expressed Ong cytoplasmic light chain without heavy chain, representing 5.6% of WBC's. There is involvement by a plasma cell neoplasm, however, the relative percentage of plasma cells cannot be determined due to a suboptimal specimen. The aspirate is hypospiculate and hypocellular, the core is small with extensive aspiration artifact, and the particle clot contains onlly rare clusters of bone marrow elements. This case was sent to Dr. Abisai Fitzpatrick from [place], [place] ([id number]) the diagnosis above reflects his opinion. Morphology Aspirate Smear: Cellularity: Hypospiculate and hypocellular. There is marked overstaining artifact and poor cellular preservation. M:E Ratio: Decreased. Myeloid Precursors: Progressive maturation without increased blasts. Morphology is somewhat obscured by overstaining artifact. Erythroid Precursors: Relatively increased with progressive maturation. Morphology is somewhat obscured by overstaining artifact. Megakaryocytes: Rare unremarkable forms. Lymphoid Cells: Mostly small and mature. Plasma Cells: Increased, mature-appearing. Iron: Adequate storage iron. Core Biopsy/Clot: Core: Small with a predominance of clotted blood. There is a fragment of cortical bone with subcortical marrow space. There is extensive aspiration artifact. The percent cellularity in this area cannot be estimated due to the scant amount of material, but appears hypocellular for age. There is scattered trilineage hematopoiesis. Occasional plasma cells are present. An immunohistochemical stain for CD138 highlights scattered plasma cells and clusters. The percentage cannot be estimated due to the scant amount of material but appears to be increased. Clot: Suboptimal. Consists almost entirely of clotted blood. There is only a rare small cluster of trilineage hematopoiesis. The amount of material is too scant to estimate cellularity. Scattered plasma cells are present. COMPREHENSIVE FLOW PANEL performed and interpreted at [place], [place] ([id number]) shows the following: INTERPRETATION: INVOLVEMENT BY A PLASMA CELL NEOPLASM (SEE COMMENT). COMMENT: Plasma cell enumeration by flow cytometry may not be entirely labor union business representative of the degree of marrow infiltration due to variable sampling; correlation with counts on morphological material is recommended.. 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 POSITIVE FOR THE CCND1/IGH t(11;14) TRANSLOCATION. NO EVIDENCE OF A DELETION OF THE p53 (17p13) LOCUS. NO EVIDENCE OF DUPLICATION OF 1q21 IS PRESENT. NO FGFR3/IGH t(4;14) TRANSLOCATION IS DETECTED. NO IGH/MAF t(14;16) TRANSLOCATION IS DETECTED. Comments: Deletion of band 13q14 on chromosome 13 is detected in 10% to 20% of patients by conventional cytogenetics and in 50% by FISH. Deletion of 13q is associated with inferior survival after standard chemotherapy. CCND1-IGH occurs in 15-30% of MM. Patients with a recurrent CCND1-IGH commonly demonstrate overexpression of cyclin D1, CD20 expression, and lymphoplasmacytic morphology. It is associated with a favorable prognosis. CYTOGENETIC KARYOTYPE ANALYSIS performed and interpreted at [facility] ([id number]) Test Results: 46,XY,t(2;3)(q33;p13)[2]/46,XY[18] DIAGNOSTIC INTERPRETATION: ABNORMAL KARYOTYPE - consistent with plasma cell myeloma Two of twenty analyzed metaphase cells exhibited a reciprocal translocation between the distal long arm of a chromosome 2 and the proximal short arm of a chromosome 3. The remaining eighteen cells showed a normal chromosome complement. While this translocation has not been reported to be specific for a particular disease entity, it is indicative of a clonal marrow disorder, most likely the patient's known plasma cell myeloma. Please correlate with clinical presentation and other diagnostic modalities. See [facility] reports ([id number], [id number], [id number], and [id number]) for additional details. Findings discussed with Maribel Hernandez. Electronically Signed Laina Salomon M.D. Gross Description A. Received in formalin, labeled with the patient's name and indicated on the requisition to be a bone marrow biopsy, is a 0.7 cm in length x 0.1 cm diameter little, cylindrical portion of bone. The specimen is submitted in toto in one cassette, following decalcification. B. Received in formalin, labeled with the patient's name and indicated on the requisition to be bone marrow clot, is a 1.3 cm in length x 1.5 cm in diameter red-brown, cylindrical blood clot. The specimen is sectioned and entirely submitted in one cassette. C. Received are 2 green top tubes and 2 lavender top tubes of blood which are sent to [facility]. D. Received are 11 bone marrow aspiration smear slides. 07/26/2018 [facility]07/26/2018
== END 2018-07-27 14:55 | disposition home or self-care (01) | DRG 952 ==
LOC: JER 10:53 → JERBED 15:39 → J4W 19:51 → J5S 07-24 18:30
PROVIDERS: ADMIT Internal Medicine; ATTEND Nurse Practitioner Acute Care
PROC: 07DR3ZX Extraction of Iliac Bone Marrow, Percutaneous Approach, Diagnostic (ICD-10-PCS; principal; 2018-07-25)
PROC: 0HBT0ZX Excision of Right Breast, Open Approach, Diagnostic (ICD-10-PCS; 2018-07-26)
DX: I16.1 Hypertensive emergency (principal); N17.9 Acute kidney failure, unspecified; E87.1 Hypo-osmolality and hyponatremia; E83.52 Hypercalcemia; F11.20 Opioid dependence, uncomplicated; R07.9 Chest pain, unspecified; R20.0 Anesthesia of skin; B19.20 Unspecified viral hepatitis C without hepatic coma; E78.5 Hyperlipidemia, unspecified; E11.9 Type 2 diabetes mellitus without complications; N63.0 Unspecified lump in unspecified breast; J44.1 Chronic obstructive pulmonary disease with (acute) exacerbation; I12.9 Hypertensive chronic kidney disease with stage 1 through stage 4 chronic kidney disease, or unspecified chronic kidney disease; N18.9 Chronic kidney disease, unspecified; Z79.4 Long term (current) use of insulin; J45.909 Unspecified asthma, uncomplicated; F32.9 Major depressive disorder, single episode, unspecified; D64.9 Anemia, unspecified; E83.42 Hypomagnesemia; E66.9 Obesity, unspecified; Z68.31 Body mass index [BMI] 31.0-31.9, adult
CPT/HCPCS: 36415; 70450-TC; 70551-TC; 71045-TC-FY; 71275-TC; 72146-TC; 72148-TC; 74175-TC; 76775-TC; 76856-TC; 77066-TC; 80048; 80053; 81003; 81015; 82550; 82553; 82570; 82962; 83036; 83516; 83520; 83690; 83735; 83880; 83883; 84100; 84153; 84155; 84156; 84157; 84165; 84300; 84484; 85025; 85027; 85610; 85651; 85730; 86038; 86225; 86256; 86704; 86706; 86708; 86850; 86900; 86901; 87081; 87340; 87522; 88300-TC; 88305-TC; 88311-TC; 88313-TC; 93005; 93010; 93306-TC; 93880-TC; 94760; 97116-GP; 97161-GP; 99285-25; G0279-TC; J1644; J7030

== ENCOUNTER 2018-09-30 05:23 | Day surgery (SDC) | payer OTHER ==
[2018-09-30 12:25] LABS: BASO % 0.4 % (0-2.0); HEMATOCRIT 36.9 % (35.4-49); HEMOGLOBIN 11.9 GM/dL (11.7-16.9); LYMPH % 20.3 % (8-40); MCH 26.6 pg (25.7-33.7); MCHC 32.2 g/dl (32.0-35.9); MEAN CELL VOLUME 82.6 fl (80-96); MONO % 4.5 % (3.8-10.2); NEUT % 69.8 % (42.8-82.8); PLATELET COUNT 252 K/MM3 (134-434); RBC 4.47 M/mm3 (4.00-5.60)
[2018-09-30] MEDS ORDERED: SODIUM CHLORIDE 1,000 ML IV ONE (13:00)
[2018-09-30 13:39] LABS: ALBUMIN 3.2 g/dl (3.4-5.0); ALK PHOS 106 U/L (45-117); ANION GAP 11 MMOL/L (8-16); BILIRUBIN,TOTAL 0.3 mg/dL (0.2-1); BLOOD UREA NITROGEN 36 mg/dL (7-18); CALCIUM 9.7 mg/dL (8.5-10.1); CHLORIDE 99 mmol/L (98-107); CO2 26 mmol/L (21-32); GLUCOSE,RANDOM 166 mg/dL (74-106); POTASSIUM 4.4 mmol/L (3.5-5.1); SGOT/AST 17 U/L (15-37); SGPT/ALT 18 U/L (13-61); SODIUM 136 mmol/L (136-145)
[2018-09-30 15:42] VITALS: BP 131/87; PULSE 83; TEMP 97.6
[2018-10-01 14:27] LABS: LDH 152 U/L (87-246); URIC ACID 7.1 mg/dL (2.6-7.2)
[2018-10-05 19:12] LABS: FREE KAPPA,SERUM 2243.3 mg/L (3.3-19.4)
== END 2018-09-30 16:24 | disposition home or self-care (01) ==
LOC: JONCNONCHE 05:23 → J7W 12:45 → JONCNONCHE 16:24
PROVIDERS: ATTEND Internal Medicine Hematology & Oncology
PROC: 3E0337Z Introduction of Electrolytic and Water Balance Substance into Peripheral Vein, Percutaneous Approach (ICD-10-PCS; principal; 2018-09-30)
DX: C90.00 Multiple myeloma not having achieved remission (principal); I10 Essential (primary) hypertension; E11.9 Type 2 diabetes mellitus without complications; B18.2 Chronic viral hepatitis C
CPT/HCPCS: 36415; 80053; 83615; 83883; 84550; 85025; 96360; 96361; J7030

== ENCOUNTER 2018-10-07 05:33 | Day surgery (SDC) | payer OTHER ==
[2018-10-07] MEDS ORDERED: SODIUM CHLORIDE 250 ML IV ONE (09:00)
[2018-10-07] MEDS ORDERED: DEXAMETHASONE 4 MG TABLET (FP) PO ONE (09:00)
[2018-10-07] MEDS ORDERED: BORTEZOMIB (VELCADE) 2.5 MG/ML SUB-Q INJECTION SQ ONE (09:30)
[2018-10-07 16:28] LABS: BASO % 0.4 % (0-2.0); EOS % 3.4 % (0-4.5); HEMATOCRIT 34.9 % (35.4-49); HEMOGLOBIN 12.2 GM/dL (11.7-16.9); LYMPH % 21.3 % (8-40); MCH 28.1 pg (25.7-33.7); MCHC 34.9 g/dl (32.0-35.9); MEAN CELL VOLUME 80.7 fl (80-96); MEAN PLT VOLUME 6.9 fl (7.5-11.1); MONO % 5.8 % (3.8-10.2); NEUT % 69.1 % (42.8-82.8); PLATELET COUNT 265 K/MM3 (134-434); RBC 4.33 M/mm3 (4.00-5.60); RDW 14.2 % (11.9-15.9); WHITE BLOOD COUNT 6.8 K/mm3 (4.0-10.0)
[2018-10-07 17:37] LABS: CO2 25 mmol/L (21-32); CREATININE 1.9 mg/dL (0.55-1.3)
[2018-10-07 17:40] LABS: ALBUMIN 3.4 g/dl (3.4-5.0)
[2018-10-07] MEDS ORDERED: MAGNESIUM OXIDE 400 MG TABLET (FP) PO ONE (17:51)
[2018-10-07 17:59] LABS: ALK PHOS 108 U/L (45-117); ANION GAP 11 MMOL/L (8-16); BILIRUBIN,DIRECT 0.1 mg/dL (0.0-0.2); BILIRUBIN,TOTAL 0.2 mg/dL (0.2-1); BLOOD UREA NITROGEN 39 mg/dL (7-18); CALCIUM 9.8 mg/dL (8.5-10.1); CHLORIDE 102 mmol/L (98-107); GLUCOSE,RANDOM 125 mg/dL (74-106); LDH 153 U/L (87-246); MAGNESIUM 1.3 mg/dL (1.8-2.4); POTASSIUM 4.4 mmol/L (3.5-5.1); SGOT/AST 16 U/L (15-37); SGPT/ALT 19 U/L (13-61); SODIUM 138 mmol/L (136-145); TOT PROT 7.3 g/dl (6.4-8.2); URIC ACID 6.4 mg/dL (2.6-7.2)
[2018-10-07] MEDS ORDERED: SODIUM CHLORIDE 1,000 ML IV ONE (18:15)
[2018-10-07 18:25] VITALS: PULSE 96; TEMP 97.8
[2018-10-07 19:10] VITALS: BP 150/77
== END 2018-10-07 19:11 | disposition home or self-care (01) ==
LOC: JONCNONCHE 05:33 → J7W 16:31 → JONCNONCHE 19:11
PROVIDERS: ATTEND Internal Medicine Hematology & Oncology
PROC: 3E01305 Introduction of Other Antineoplastic into Subcutaneous Tissue, Percutaneous Approach (ICD-10-PCS; principal; 2018-10-07)
PROC: 3E0337Z Introduction of Electrolytic and Water Balance Substance into Peripheral Vein, Percutaneous Approach (ICD-10-PCS; 2018-10-07)
DX: Z51.11 Encounter for antineoplastic chemotherapy (principal); C90.00 Multiple myeloma not having achieved remission
CPT/HCPCS: 36415; 80053; 80076; 83615; 83735; 84550; 85025; 96360; 96361; 96401; J7030; J9041

== ENCOUNTER 2018-10-14 05:38 | Day surgery (SDC) | payer OTHER ==
[2018-10-14] MEDS ORDERED: DEXAMETHASONE 4 MG TABLET (FP) PO ONE ×2 (08:00→16:30)
[2018-10-14] MEDS ORDERED: BORTEZOMIB (VELCADE) 2.5 MG/ML SUB-Q INJECTION SQ ONE (08:15)
[2018-10-14] MEDS ORDERED: SODIUM CHLORIDE 500 ML IV SCH (14:00)
[2018-10-14 15:18] LABS: HEMATOCRIT 32.7 % (35.4-49); HEMOGLOBIN 11.3 GM/dL (11.7-16.9); MCH 27.9 pg (25.7-33.7); MCHC 34.4 g/dl (32.0-35.9); MEAN CELL VOLUME 81.1 fl (80-96); MEAN PLT VOLUME 7.2 fl (7.5-11.1); PLATELET COUNT 202 K/MM3 (134-434); RBC 4.04 M/mm3 (4.00-5.60); RDW 14.6 % (11.9-15.9); WHITE BLOOD COUNT 5.8 K/mm3 (4.0-10.0)
[2018-10-14 16:01] LABS: ALBUMIN 3.2 g/dl (3.4-5.0); ALK PHOS 106 U/L (45-117); ANION GAP 8 MMOL/L (8-16); BILIRUBIN,TOTAL 0.2 mg/dL (0.2-1); BLOOD UREA NITROGEN 44 mg/dL (7-18); CALCIUM 10.1 mg/dL (8.5-10.1); CHLORIDE 101 mmol/L (98-107); CO2 27 mmol/L (21-32); GLUCOSE,RANDOM 75 mg/dL (74-106); POTASSIUM 4.6 mmol/L (3.5-5.1); SGOT/AST 12 U/L (15-37); SGPT/ALT 18 U/L (13-61); SODIUM 136 mmol/L (136-145); TOT PROT 6.6 g/dl (6.4-8.2)
[2018-10-14 17:16] VITALS: TEMP 97.6
[2018-10-14 17:38] VITALS: BP 145/85; PULSE 78
[2018-10-17 04:44] LABS: LDH 143 U/L (87-246)
== END 2018-10-14 16:30 | disposition home or self-care (01) ==
LOC: JONCCHEMO 05:38 → J7W 13:49 → JONCCHEMO 16:30
PROVIDERS: ATTEND Internal Medicine Hematology & Oncology
PROC: 3E01305 Introduction of Other Antineoplastic into Subcutaneous Tissue, Percutaneous Approach (ICD-10-PCS; principal; 2018-10-14)
PROC: 3E0337Z Introduction of Electrolytic and Water Balance Substance into Peripheral Vein, Percutaneous Approach (ICD-10-PCS; 2018-10-14)
DX: Z51.11 Encounter for antineoplastic chemotherapy (principal); C90.00 Multiple myeloma not having achieved remission
CPT/HCPCS: 36415; 80053; 83036; 83615; 84550; 85027; 96360; 96361; 96401; J7030; J9041

== ENCOUNTER 2018-10-21 06:51 | Day surgery (SDC) | payer OTHER ==
[2018-10-21] MEDS ORDERED: DEXAMETHASONE 4 MG TABLET (FP) PO ONE (08:00)
[2018-10-21] MEDS ORDERED: BORTEZOMIB (VELCADE) 2.5 MG/ML SUB-Q INJECTION SQ ONE (08:15)
[2018-10-21 11:55] LABS: BASO % 0.6 % (0-2.0); EOS % 3.8 % (0-4.5); HEMATOCRIT 33.6 % (35.4-49); HEMOGLOBIN 11.5 GM/dL (11.7-16.9); LYMPH % 14.8 % (8-40); MCH 27.8 pg (25.7-33.7); MCHC 34.2 g/dl (32.0-35.9); MEAN CELL VOLUME 81.5 fl (80-96); MEAN PLT VOLUME 6.7 fl (7.5-11.1); MONO % 5.4 % (3.8-10.2); NEUT % 75.4 % (42.8-82.8); PLATELET COUNT 227 K/MM3 (134-434); RBC 4.12 M/mm3 (4.00-5.60); RDW 14.6 % (11.9-15.9); WHITE BLOOD COUNT 6.6 K/mm3 (4.0-10.0)
[2018-10-21 12:27] LABS: ALBUMIN 3.2 g/dl (3.4-5.0); ALK PHOS 111 U/L (45-117); ANION GAP 8 MMOL/L (8-16); BILIRUBIN,DIRECT 0.1 mg/dL (0.0-0.2); BILIRUBIN,TOTAL 0.2 mg/dL (0.2-1); BLOOD UREA NITROGEN 41 mg/dL (7-18); CALCIUM 9.4 mg/dL (8.5-10.1); CHLORIDE 99 mmol/L (98-107); CO2 30 mmol/L (21-32); CREATININE 1.9 mg/dL (0.55-1.3); GLUCOSE,RANDOM 187 mg/dL (74-106); MAGNESIUM 1.9 mg/dL (1.8-2.4); POTASSIUM 5.2 mmol/L (3.5-5.1); SGOT/AST 22 U/L (15-37); SGPT/ALT 20 U/L (13-61); SODIUM 136 mmol/L (136-145); TOT PROT 6.7 g/dl (6.4-8.2)
[2018-10-21] MEDS ORDERED: SODIUM CHLORIDE 500 ML IV SCH (13:00)
[2018-10-21 15:29] VITALS: TEMP 97.7
[2018-10-21 16:46] VITALS: BP 166/81; PULSE 97
== END 2018-10-21 17:00 | disposition home or self-care (01) ==
LOC: JONCCHEMO 06:51 → J7W 13:34 → JONCCHEMO 17:00
PROVIDERS: ATTEND Internal Medicine Hematology & Oncology
PROC: 3E0337Z Introduction of Electrolytic and Water Balance Substance into Peripheral Vein, Percutaneous Approach (ICD-10-PCS; principal; 2018-10-21)
PROC: 3E01305 Introduction of Other Antineoplastic into Subcutaneous Tissue, Percutaneous Approach (ICD-10-PCS; 2018-10-21)
DX: Z51.11 Encounter for antineoplastic chemotherapy (principal); C90.00 Multiple myeloma not having achieved remission
CPT/HCPCS: 36415; 80048; 80076; 83735; 85025; 96360; 96361; 96401; J7030; J9041

== ENCOUNTER 2018-10-28 06:40 | Day surgery (SDC) | payer OTHER ==
[2018-10-28] MEDS ORDERED: DEXAMETHASONE 4 MG TABLET (FP) PO ONE (10:00)
[2018-10-28] MEDS ORDERED: BORTEZOMIB (VELCADE) 2.5 MG/ML SUB-Q INJECTION SQ ONE (10:00)
[2018-10-28] MEDS ORDERED: SODIUM CHLORIDE 500 ML IV SCH (15:30)
[2018-10-28 16:06] LABS: BASO % 0.5 % (0-2.0); EOS % 2.5 % (0-4.5); HEMATOCRIT 32.5 % (35.4-49); HEMOGLOBIN 11.4 GM/dL (11.7-16.9); LYMPH % 17.2 % (8-40); MCH 28.9 pg (25.7-33.7); MEAN CELL VOLUME 82.7 fl (80-96); MEAN PLT VOLUME 7.5 fl (7.5-11.1); MONO % 5.6 % (3.8-10.2); NEUT % 74.2 % (42.8-82.8); PLATELET COUNT 214 K/MM3 (134-434); RBC 3.94 M/mm3 (4.00-5.60); RDW 14.7 % (11.9-15.9); WHITE BLOOD COUNT 6.2 K/mm3 (4.0-10.0)
[2018-10-28 16:37] LABS: ALBUMIN 3.4 g/dl (3.4-5.0); ALK PHOS 112 U/L (45-117); ANION GAP 9 MMOL/L (8-16); BILIRUBIN,TOTAL 0.2 mg/dL (0.2-1); BLOOD UREA NITROGEN 50 mg/dL (7-18); CALCIUM 9.3 mg/dL (8.5-10.1); CHLORIDE 98 mmol/L (98-107); CO2 27 mmol/L (21-32); CREATININE 2.1 mg/dL (0.55-1.3); GLUCOSE,RANDOM 168 mg/dL (74-106); MAGNESIUM 1.6 mg/dL (1.8-2.4); POTASSIUM 4.7 mmol/L (3.5-5.1); SGOT/AST 12 U/L (15-37); SGPT/ALT 18 U/L (13-61); SODIUM 134 mmol/L (136-145); TOT PROT 6.7 g/dl (6.4-8.2)
[2018-10-28 16:38] LABS: BILIRUBIN,DIRECT 0.1 mg/dL (0.0-0.2)
[2018-10-28] MEDS ORDERED: MAGNESIUM SULF 50% (8.12 MEQ/2 ML-1 GM VIAL) IVPB ONE (16:48)
[2018-10-28 17:03] VITALS: TEMP 97.9
[2018-10-28 18:36] VITALS: BP 132/75; PULSE 84
[2018-10-30 08:09] LABS: IGA IMMUNOGLOBULIN 92 mg/dL (61-437); IGG IMMUNOGLOBULIN 491 mg/dL (700-1600); IGM IMMUNOGLOBULIN 13 mg/dL (20-172)
== END 2018-10-28 18:30 | disposition home or self-care (01) ==
LOC: JONCCHEMO 06:40 → J7W 15:20 → JONCCHEMO 18:30
PROVIDERS: ATTEND Internal Medicine Hematology & Oncology
PROC: 3E01305 Introduction of Other Antineoplastic into Subcutaneous Tissue, Percutaneous Approach (ICD-10-PCS; principal; 2018-10-28)
PROC: 3E0337Z Introduction of Electrolytic and Water Balance Substance into Peripheral Vein, Percutaneous Approach (ICD-10-PCS; 2018-10-28)
PROC: 3E0337Z Introduction of Electrolytic and Water Balance Substance into Peripheral Vein, Percutaneous Approach (ICD-10-PCS; 2018-10-28)
DX: Z51.11 Encounter for antineoplastic chemotherapy (principal); C90.00 Multiple myeloma not having achieved remission
CPT/HCPCS: 36415; 80048; 80076; 82784; 83735; 85025; 96361; 96365; 96401; 96417; J7030; J9041

== ENCOUNTER 2018-10-29 03:18 | Emergency (ER) | payer OTHER ==
[2018-10-29 03:34] VITALS: BMI 31.8
[2018-10-29] MEDS ORDERED: ASPIRIN 81 MG CHEWABLE TABLETS PO ONE ×2 (03:36)
[2018-10-29] MEDS ORDERED: CLOPIDOGREL BISULFATE 300 MG TABLET PO ONE (03:36)
--- NOTE | 2018-10-29 03:38 | PDOC ---
Attending Attestation - Resident Resident Name: Felisha Mota - ED Attending Attestation I have performed the following: I have examined & evaluated the patient, The case was reviewed & discussed with the resident, I agree w/resident's findings & plan - HPI HPI: 10/29/18 03:48 Pt comes with chest and left arm pain 10/29/18 03:56 8PM yesterday he completed he weekly chemo for multiple myeloma. Today at home his blood sugar was 400s; he took a fast acting insulin. He woke up tonight with CP and left arm pain. He felt like maybe his blood sugar plummeted; however in the ER his FS is 191. Pt has ST depression in the anterior and lateral leads as well as inferior leads. 10/29/18 06:09 - Physicial Exam PE: 10/29/18 03:49 Agree with exam of resident. Pt has enlarged abdomen. Pt is shaky; Pt is warm to the touch but afebrile. No flank pain. - Medical Decision Making 10/29/18 03:38 I caaled ME heart at [facility] for posterior stemi 10/29/18 03:53 [facility] transport is here. 10/29/18 03:56 Cardio fellow is aware; she is discussing with her attending. 10/29/18 04:21 Dr. Jacob cards wants repeat EKG; posterior EKG and morphine for the patient. 10/29/18 04:44 Dr. Jacob refusing the patient at this time. He states that pt can be transferred tomorrow if needed. 10/29/18 05:42 Dr. Bo, [facility] [employer]or Reconnaissance Specialist accepted the case. Admitting Doc is Ronal ; Pt will go to telemetry at [facility] and cath may be scheduled later today. 10/29/18 06:08 Pt has hyponatremia; pt has DARIO; Pt has known multiple myeloma. His oncologist is Dr. Grady in house here.
[2018-10-29] MEDS ORDERED: CLOPIDOGREL BISULFATE 300 MG TABLET ONE (03:46)
[2018-10-29] MEDS ORDERED: ASPIRIN 81 MG CHEWABLE TABLETS ONE ×3 (03:46→03:50)
[2018-10-29 03:53] LABS: BASO % 0.7 % (0-2.0); EOS % 0.3 % (0-4.5); HEMATOCRIT 33.7 % (35.4-49); HEMOGLOBIN 11.7 GM/dL (11.7-16.9); LYMPH % 8.9 % (8-40); MCH 29.1 pg (25.7-33.7); MCHC 34.6 g/dl (32.0-35.9); MEAN CELL VOLUME 84.2 fl (80-96); MEAN PLT VOLUME 6.9 fl (7.5-11.1); NEUT % 89.1 % (42.8-82.8); PLATELET COUNT 195 K/MM3 (134-434); RBC 4.01 M/mm3 (4.00-5.60); WHITE BLOOD COUNT 8.2 K/mm3 (4.0-10.0)
[2018-10-29 04:04] LABS: INR 1.06 (0.83-1.09); PROTHROMBIN TIME (PATIENT) 12.5 SEC (9.7-13.0)
--- NOTE | 2018-10-29 04:04 | PDOC ---
History of Present Illness - General Chief Complaint: Chest Pain Stated Complaint: CHEST PAIN, BLOOD SUGAR PROBLEM Time Seen by Provider: 10/29/18 03:35 History Source: Patient Exam Limitations: No Limitations - History of Present Illness Initial Comments: 10/29/18 03:54 62YOM with h/o multiple myeloma on chemotherapy with last tx yesterday (10/28/18) , HTN, HLD, DM, depression, PVD, HCV s/p harvoni, and previous opioid abuse on methadone, who was awakened by sharp left arm pain and heaviness, b/l hand tingling, diaphoresis, and feeling of impending doom. He has never had this type of pain/symptoms before, did not try any medications for the symptoms. The patient states that he was feeling per baseline before the onset of symptoms early this morning. He was having some difficulty controlling his blood glucose today at home, at one point it read >400, but he took insulin. Past History - Past Medical History Allergies/Adverse Reactions: Allergies Allergy/AdvReac Type Severity Reaction Status Date / Time No Known Allergies Allergy Verified 10/29/18 03:32 Home Medications: Ambulatory Orders Albuterol Sulfate Inhaler - [Ventolin HFA Inhaler -] 2 puff PO QID PRN 06/07/15 Aspirin [Aspirin EC] 81 mg PO DAILY 06/07/15 Enalapril Maleate [Vasotec -] 20 mg PO DAILY 06/07/15 Insulin Glargine,Hum.rec.anlog [Lantus (10mL VIAL) -] 40 unit SQ HS 06/07/15 Salmeterol/Fluticasone [Advair 100Mcg/50Mcg -] 1 puff PO BID 06/07/15 Sertraline HCl 50 mg PO DAILY 06/07/15 metFORMIN HCL [Metformin HCl] 1,000 mg PO BID 06/07/15 Acetaminophen [Tylenol .Regular Strength -] 650 mg PO Q6H PRN #0 tablet Methadone [Dolophine -] 70 mg PO DAILY 01/30/16 Buspirone HCl 15 mg PO BID 07/22/18 Metoprolol Tartrate [Lopressor -] 25 mg PO BID #60 tablet 07/27/18 Nifedipine ER [Procardia XL -] 30 mg PO DAILY #30 tab.er.24 07/27/18 Anemia: Yes Asthma: Yes Cancer: Yes (?melanoma) COPD: Yes Diabetes: Yes GI Disorders: Yes (hep c) HTN: Yes Hypercholesterolemia: Yes - Surgical History Orthopedic Surgery: Yes (right toe removed) - Suicide/Smoking/Psychosocial Hx Smoking History: Never smoked Have you smoked in the past 12 months: No If you are a former smoker, when did you quit?: 1996 Information on smoking cessation initiated: No Hx Alcohol Use: No Drug/Substance Use Hx: No Substance Use Type: None, Cocaine, Heroin Hx Substance Use Treatment: No Review of Systems - Review of Systems Able to Perform ROS?: Yes Comments:: 10/29/18 04:10 GEN: no fever, chills, malaise, generalized weakness, or weight change HEENT: no ear pain, sore throat, vision change, or eye pain CV: chest pain, no palpitations, lightheadedness, syncope, or edema RESP: no cough, wheezing, or SOB GI: no abdominal pain, nausea, vomiting, diarrhea, constipation, or white/black/ bloody stool : no dysuria, hematuria, incontinence, retention, bleeding, or discharge MSK: arm pain, no neck/back pain, muscle weakness/pain, or joint swelling/pain NEURO: tingling, no headache, seizure, vertigo, numbness, or focal weakness PSYCH: no substance use, no behavior change SKIN: no jaundice, no rash ROS otherwise negative except as noted in HPI *Physical Exam - Vital Signs Last Vital Signs Temp Pulse Resp BP Pulse Ox 97.9 F 81 20 134/69 99 10/29/18 04:09 10/29/18 04:09 10/29/18 04:09 10/29/18 04:09 10/29/18 04:09 - Physical Exam Comments: 10/29/18 04:00 GENERAL: A/Ox4, mild distress, answers questions appropriately, open-mouth breathing, full sentences, appears pale and a bit diaphoretic HEENT: PERRLA, EOMI, moist mucous membranes NECK/BACK: no midline ttp, no spinal stepoff or deformity, no hematoma, full ROM , neck supple CARDIOVASCULAR: regular rate/rhythm, a bit tachycardic, normal S1S2, no MGR, strong peripheral pulses, capillary refill <2 seconds, extremities wwp, no edema LUNGS/RESPIRATORY: no respiratory distress, CTAB GI/ABDOMEN: symmetric etni-ur-ycfo, normoactive BS, soft, no ttp, no midline pulsatile masses : no CVA tenderness EXTREMITIES: no muscle atrophy, no acute deformity SKIN: warm and a bit diaphoretic, pale, no jaundice, no rash, no bruising, no skin breakdown, no cuts, no lesions NEUROLOGICAL: tremulous, GCS 15, CN II-XII grossly intact, 5/5 strength proximally and distally, no facial droop Moderate Sedation - Procedure Monitoring Vital Signs: Procedure Monitoring Vital Signs Temperature 97.9 F 10/29/18 04:09 Pulse Rate 81 10/29/18 04:09 Respiratory Rate 20 10/29/18 04:09 Blood Pressure 134/69 10/29/18 04:09 O2 Sat by Pulse Oximetry (%) 99 10/29/18 04:09 ED Treatment Course - LABORATORY CBC & Chemistry Diagram: 10/29/18 03:30 10/29/18 03:30 - ADDITIONAL ORDERS Additional order review: Laboratory Results 10/29/18 10/29/18 10/29/18 03:30 03:30 03:30 WBC 8.2 RBC 4.01 Hgb 11.7 Hct 33.7 L MCV 84.2 MCH 29.1 MCHC 34.6 RDW 15.0 Plt Count 195 MPV 6.9 L Absolute Neuts (auto) 7.3 Neutrophils % 89.1 H D Lymphocytes % 8.9 D Monocytes % 1.0 L D Eosinophils % 0.3 D Basophils % 0.7 Nucleated RBC % 0 PT with INR 12.50 INR 1.06 Sodium 129 L Potassium 4.6 Chloride 95 L Carbon Dioxide 18 L Anion Gap 16 BUN 53 H Creatinine 2.6 H Creat Clearance w eGFR 24.98 Random Glucose 220 H Calcium 9.2 Total Bilirubin 0.2 AST 13 L ALT 18 Alkaline Phosphatase 119 H Creatine Kinase 53 Troponin I 0.03 Total Protein 7.4 Albumin 3.4 10/29/18 03:30 RBC 4.01 MCV 84.2 MCHC 34.6 RDW 15.0 MPV 6.9 L Neutrophils % 89.1 H D Lymphocytes % 8.9 D Monocytes % 1.0 L D Eosinophils % 0.3 D Basophils % 0.7 - Medications Given in the ED: ED Medications Discontinued Medications Generic Name Dose Route Start Last Admin Trade Name Freq PRN Reason Stop Dose Admin Aspirin 162 mg 10/29/18 03:36 10/29/18 03:54 Asa - PO 10/29/18 03:37 Not Given ONCE ONE Aspirin 324 mg 10/29/18 03:36 10/29/18 03:53 Asa - PO 10/29/18 03:37 324 mg ONCE ONE Administration Clopidogrel Bisulfate 600 mg 10/29/18 03:36 10/29/18 03:53 Plavix - PO 10/29/18 03:37 600 mg ONCE ONE Administration Morphine Sulfate 1 mg 10/29/18 04:10 10/29/18 04:26 Morphine Injection - IVPUSH 10/29/18 04:11 1 mg ONCE ONE Administration Sodium Chloride 250 ml 10/29/18 04:13 10/29/18 04:26 Normal Saline - IV 10/29/18 04:14 250 ml ONCE ONE Administration Medical Decision Making - Medical Decision Making 10/29/18 03:40 I spoke with [facility] bench molder apprentice who is going to the [facility] where the attending is in procedure. The fellow will call to update on transfer plan ALEKS after she speaks with attending. The concern is that the team is already in a procedure and if patient needs cath now, he may need another facility. I have sent initial EKG image to the fellow. 10/29/18 04:25 Dr. Santos has spoken with the [facility] Cardiology attending Dr. Jacob. I have sent the posterior EKGs to Dr. Jacob. Repeating regular 12-lead EKG now. 10/29/18 04:33 I have sent the regular 12-lead EKG to Dr. Jacob. 10/29/18 04:44 Dr. Santos spoke with Dr. Jacob. Regular 12-lead improved from presentation though patient still has residual pain. 10/29/18 05:[address] Bo, another [facility] bench molder apprentice, who states that the fellow I spoke with before was from [facility]. Dr. Bo states he just left the laborer hide house from a procedure, has not heard the patient's story or seen the EKGs. I tell Dr. Bo the patient's story and send him the EKG, and notify him the patient continues to have pain. He is speaking with his team and will determine whether or not patient will be accepted in transfer. 10/29/18 05:11 Dr. Bo calls back after reviewing EKGs, patient is accepted to [facility], likely cath later this AM. Accepting programming internship is Dr. Villeda. 10/29/18 05:19 [facility] transfer center called back, patient has a telemetry bed assigned. EMS arranged by [facility] to arrive within one hour. RN Jesika called [phone] as directed by [facility] to give report. She attempted to give report but they asked that we call back in one hour. We have given them the [facility] ED number to call us when they are ready. *DC/Admit/Observation/Transfer Diagnosis at time of Disposition: DARIO (acute kidney injury), Acute electrocardiogram changes, Hyponatremia Chest pain Qualifiers: Chest pain type: unspecified Qualified Code(s): R07.9 - Chest pain, unspecified - Discharge Dispostion Condition at time of disposition: Guarded Decision to Admit order: Yes Decision to Admit order Date/Time: Decision to Admit Order Category Date Time Status Decision to Admit to Hospital Routine Admission 10/29/18 04:52 Cancelled - Referrals Referrals: Martin Medrano MD [Primary Care Provider] - - Patient Instructions - Post Discharge Activity - Transfer to Acute Care Facility Receiving Facility: [facility] Accepting Physician:: Ronal
[2018-10-29] MEDS ORDERED: morphine CARPU-JECT 2 MG/1 ML DISP.SYRIN IVPUSH ONE (04:10)
[2018-10-29] MEDS ORDERED: SODIUM CHLORIDE 0.9% 500 ML INFUS.BAG IV ONE (04:13)
[2018-10-29] MEDS ORDERED: MORPHINE SULFATE 2 MG/ML VIAL ONE (04:20)
[2018-10-29 04:26] LABS: ALBUMIN 3.4 g/dl (3.4-5.0); ALK PHOS 119 U/L (45-117); ANION GAP 16 MMOL/L (8-16); BILIRUBIN,TOTAL 0.2 mg/dL (0.2-1); BLOOD UREA NITROGEN 53 mg/dL (7-18); CALCIUM 9.2 mg/dL (8.5-10.1); CHLORIDE 95 mmol/L (98-107); CO2 18 mmol/L (21-32); CREATININE 2.6 mg/dL (0.55-1.3); GLUCOSE,RANDOM 220 mg/dL (74-106); POTASSIUM 4.6 mmol/L (3.5-5.1); SGOT/AST 13 U/L (15-37); SGPT/ALT 18 U/L (13-61); SODIUM 129 mmol/L (136-145); TOT PROT 7.4 g/dl (6.4-8.2)
[2018-10-29 06:10] VITALS: BP 134/70; PULSE 94; TEMP 98.1
--- NOTE | 2018-10-29 12:53 | EKG ---
Test Reason : Blood Pressure : / mmHG Vent. Rate : 113 BPM Atrial Rate : 113 BPM P-R Int : 194 ms QRS Dur : 076 ms QT Int : 428 ms P-R-T Axes : 078 047 079 degrees QTc Int : 587 ms SINUS TACHYCARDIA MARKED ST ABNORMALITY, POSSIBLE INFERIOR SUBENDOCARDIAL INJURY MARKED ST ABNORMALITY, POSSIBLE ANTERIOR SUBENDOCARDIAL INJURY PROLONGED QT ABNORMAL ECG WHEN COMPARED WITH ECG OF 21-JUL-2018 05:50, SIGNIFICANT CHANGES HAVE OCCURRED Confirmed by RUDI MENDEZ MD ([id number]) on 10/29/2018 12:52:43 PM Referred By: Confirmed By:RUDI MENDEZ MD
--- NOTE | 2018-10-30 11:24 | EKG ---
Test Reason : Blood Pressure : / mmHG Vent. Rate : 099 BPM Atrial Rate : 099 BPM P-R Int : 156 ms QRS Dur : 080 ms QT Int : 314 ms P-R-T Axes : 061 024 111 degrees QTc Int : 402 ms NORMAL SINUS RHYTHM ABNORMAL ECG Confirmed by RUDI MENDEZ MD ([id number]) on 10/30/2018 11:24:23 AM Referred By: Confirmed By:RUDI MENDEZ MD
--- NOTE | 2018-10-31 11:01 | EKG ---
Test Reason : Blood Pressure : / mmHG Vent. Rate : 108 BPM Atrial Rate : 108 BPM P-R Int : 170 ms QRS Dur : 078 ms QT Int : 358 ms P-R-T Axes : 062 012 085 degrees QTc Int : 479 ms SINUS TACHYCARDIA SEPTAL INFARCT , AGE UNDETERMINED ABNORMAL ECG WHEN COMPARED WITH ECG OF 29-OCT-2018 03:24, Confirmed by KRANTHI DE LA CRUZ MD ([id number]) on 10/31/2018 11:00:48 AM Referred By: Confirmed By:KRANTHI DE LA CRUZ MD
== END 2018-10-29 06:24 | disposition short-term general hospital (02) ==
LOC: JER 03:18
PROC: 3E033NZ Introduction of Analgesics, Hypnotics, Sedatives into Peripheral Vein, Percutaneous Approach (ICD-10-PCS; principal; 2018-10-29)
DX: R07.9 Chest pain, unspecified (principal); R94.31 Abnormal electrocardiogram [ECG] [EKG]; N17.9 Acute kidney failure, unspecified; E87.1 Hypo-osmolality and hyponatremia; I10 Essential (primary) hypertension; C90.00 Multiple myeloma not having achieved remission; E11.9 Type 2 diabetes mellitus without complications; Z79.4 Long term (current) use of insulin; E78.00 Pure hypercholesterolemia, unspecified; J44.9 Chronic obstructive pulmonary disease, unspecified; J45.909 Unspecified asthma, uncomplicated; Z86.19 Personal history of other infectious and parasitic diseases
CPT/HCPCS: 36415; 71045-TC-FY; 80053; 82550; 84484; 85025; 85610; 93005; 93010; 96374; 99285-25

== ENCOUNTER 2018-11-04 07:12 | Day surgery (SDC) | payer OTHER ==
[2018-11-04] MEDS ORDERED: BORTEZOMIB (VELCADE) 2.5 MG/ML SUB-Q INJECTION SQ ONE (10:00)
[2018-11-04] MEDS ORDERED: DEXAMETHASONE 4 MG TABLET (FP) PO ONE (10:00)
[2018-11-04 11:12] LABS: BASO % 0.5 % (0-2.0); EOS % 3.5 % (0-4.5); HEMATOCRIT 31.7 % (35.4-49); HEMOGLOBIN 10.8 GM/dL (11.7-16.9); LYMPH % 13.9 % (8-40); MCH 28.3 pg (25.7-33.7); MCHC 34.1 g/dl (32.0-35.9); MEAN CELL VOLUME 83.1 fl (80-96); MEAN PLT VOLUME 6.9 fl (7.5-11.1); MONO % 4.2 % (3.8-10.2); NEUT % 77.9 % (42.8-82.8); PLATELET COUNT 204 K/MM3 (134-434); RBC 3.82 M/mm3 (4.00-5.60); WHITE BLOOD COUNT 6.2 K/mm3 (4.0-10.0)
[2018-11-04 11:53] LABS: ALBUMIN 3.2 g/dl (3.4-5.0); ALK PHOS 113 U/L (45-117); ANION GAP 9 MMOL/L (8-16); BILIRUBIN,DIRECT 0.1 mg/dL (0.0-0.2); BILIRUBIN,TOTAL 0.6 mg/dL (0.2-1); BLOOD UREA NITROGEN 45 mg/dL (7-18); CALCIUM 8.5 mg/dL (8.5-10.1); CHLORIDE 100 mmol/L (98-107); CO2 24 mmol/L (21-32); CREATININE 2.1 mg/dL (0.55-1.3); GLUCOSE,RANDOM 177 mg/dL (74-106); LDH 163 U/L (87-246); MAGNESIUM 1.5 mg/dL (1.8-2.4); POTASSIUM 4.9 mmol/L (3.5-5.1); SGOT/AST 16 U/L (15-37); SGPT/ALT 19 U/L (13-61); SODIUM 133 mmol/L (136-145); TOT PROT 6.4 g/dl (6.4-8.2); URIC ACID 3.4 mg/dL (2.6-7.2)
[2018-11-04] MEDS ORDERED: SODIUM CHLORIDE 500 ML IV ONE (12:45)
[2018-11-04] MEDS ORDERED: CYCLOPHOSPHAMIDE 50 MG CAPSULE PO ONE (14:45)
[2018-11-04] MEDS ORDERED: SODIUM CHLORIDE 500 ML IV SCH (14:45)
[2018-11-04] MEDS ORDERED: MAGNESIUM SULF 50% (8.12 MEQ/2 ML-1 GM VIAL) IVPB ONE (14:49)
[2018-11-04] MEDS ORDERED: MAGNESIUM SULF 50% (8.12 MEQ/2 ML-1 GM VIAL) ONE (14:51)
[2018-11-04 16:10] VITALS: PULSE 98
[2018-11-04 16:15] VITALS: BP 133/60
[2018-11-04 16:48] VITALS: TEMP 97.9
== END 2018-11-04 16:48 | disposition home or self-care (01) ==
LOC: JONCCHEMO 07:12 → J7W 12:25 → JONCCHEMO 16:48
PROVIDERS: ATTEND Internal Medicine Hematology & Oncology
PROC: 3E01305 Introduction of Other Antineoplastic into Subcutaneous Tissue, Percutaneous Approach (ICD-10-PCS; principal; 2018-11-04)
PROC: 3E033GC Introduction of Other Therapeutic Substance into Peripheral Vein, Percutaneous Approach (ICD-10-PCS; 2018-11-04)
PROC: 3E0337Z Introduction of Electrolytic and Water Balance Substance into Peripheral Vein, Percutaneous Approach (ICD-10-PCS; 2018-11-04)
DX: Z51.11 Encounter for antineoplastic chemotherapy (principal); C90.00 Multiple myeloma not having achieved remission
CPT/HCPCS: 36415; 80048; 80076; 83615; 83735; 84550; 85025; 96361; 96365; 96401; 96417; J7030; J9041

== ENCOUNTER 2018-11-11 06:40 | Day surgery (SDC) | payer OTHER ==
[2018-11-11] MEDS ORDERED: BORTEZOMIB (VELCADE) 2.5 MG/ML SUB-Q INJECTION SQ ONE (10:00)
[2018-11-11] MEDS ORDERED: DEXAMETHASONE 4 MG TABLET (FP) PO ONE (10:00)
[2018-11-11 10:44] LABS: BASO % 0.6 % (0-2.0); EOS % 1.9 % (0-4.5); HEMATOCRIT 32.8 % (35.4-49); HEMOGLOBIN 11.3 GM/dL (11.7-16.9); LYMPH % 10.8 % (8-40); MCH 28.8 pg (25.7-33.7); MCHC 34.4 g/dl (32.0-35.9); MEAN CELL VOLUME 83.8 fl (80-96); NEUT % 82.7 % (42.8-82.8); PLATELET COUNT 203 K/MM3 (134-434); RBC 3.91 M/mm3 (4.00-5.60); RDW 16.1 % (11.9-15.9); WHITE BLOOD COUNT 7.1 K/mm3 (4.0-10.0)
[2018-11-11 11:25] LABS: ALBUMIN 3.5 g/dl (3.4-5.0); ALK PHOS 123 U/L (45-117); ANION GAP 8 MMOL/L (8-16); BILIRUBIN,DIRECT 0.1 mg/dL (0.0-0.2); BILIRUBIN,TOTAL 0.2 mg/dL (0.2-1); BLOOD UREA NITROGEN 42 mg/dL (7-18); CALCIUM 9.2 mg/dL (8.5-10.1); CHLORIDE 101 mmol/L (98-107); CO2 26 mmol/L (21-32); CREATININE 2.1 mg/dL (0.55-1.3); GLUCOSE,RANDOM 146 mg/dL (74-106); MAGNESIUM 1.7 mg/dL (1.8-2.4); POTASSIUM 5.1 mmol/L (3.5-5.1); SGOT/AST 12 U/L (15-37); SGPT/ALT 18 U/L (13-61); SODIUM 134 mmol/L (136-145); TOT PROT 6.9 g/dl (6.4-8.2)
[2018-11-11] MEDS ORDERED: SODIUM CHLORIDE 1,000 ML IV SCH (11:45)
[2018-11-11] MEDS ORDERED: CYCLOPHOSPHAMIDE 50 MG CAPSULE PO SCH (12:00)
[2018-11-11] MEDS ORDERED: MAGNESIUM OXIDE 400 MG TABLET (FP) PO ONE (14:39)
[2018-11-11 16:14] VITALS: TEMP 97.9
[2018-11-11 16:24] VITALS: BP 124/80; PULSE 102
== END 2018-11-11 16:30 | disposition home or self-care (01) ==
LOC: JONCCHEMO 06:40 → J7W 11:18 → JONCCHEMO 16:30
PROVIDERS: ATTEND Internal Medicine Hematology & Oncology
DX: Z51.11 Encounter for antineoplastic chemotherapy (principal); C90.00 Multiple myeloma not having achieved remission
CPT/HCPCS: 36415; 80048; 80076; 83735; 85025; 96361; 96401; J7030; J9041

== ENCOUNTER 2018-11-18 07:07 | Day surgery (SDC) | payer OTHER ==
[2018-11-18] MEDS ORDERED: CYCLOPHOSPHAMIDE 50 MG CAPSULE PO ONE (10:00)
[2018-11-18] MEDS ORDERED: DEXAMETHASONE 4 MG TABLET (FP) PO ONE (10:00)
[2018-11-18] MEDS ORDERED: BORTEZOMIB (VELCADE) 2.5 MG/ML SUB-Q INJECTION SQ ONE (10:00)
[2018-11-18 12:34] LABS: URINE APPEARANCE CLOUDY; URINE BILIRUBIN NEGATIVE (<2.0 mg/dL); URINE COLOR YELLOW; URINE GLUCOSE (UA) 1+ (NEGATIVE); URINE KETONE NEGATIVE (NEGATIVE); URINE LEUK ESTERASE NEGATIVE (NEGATIVE); URINE NITRITE NEGATIVE (NEGATIVE); URINE PROTEIN 3+ (NEGATIVE); URINE UROBILINOGEN NEGATIVE mg/dL (0.2-1.0)
[2018-11-18 12:53] LABS: EPI CELLS RARE /HPF (FEW); URINE BACTERIA RARE /hpf (NONE SEEN); URINE HYALINE CAST 1 /lpf; URINE MUCUS RARE
[2018-11-18 12:58] LABS: BASO % 0.4 % (0-2.0); EOS % 1.4 % (0-4.5); HEMATOCRIT 30.7 % (35.4-49); HEMOGLOBIN 10.7 GM/dL (11.7-16.9); LYMPH % 10.4 % (8-40); MEAN PLT VOLUME 7.6 fl (7.5-11.1); MONO % 4.1 % (3.8-10.2); NEUT % 83.7 % (42.8-82.8); PLATELET COUNT 239 K/MM3 (134-434); RDW 15.9 % (11.9-15.9); WHITE BLOOD COUNT 7.1 K/mm3 (4.0-10.0)
[2018-11-18 12:59] LABS: ALBUMIN 3.3 g/dl (3.4-5.0); ALK PHOS 120 U/L (45-117); ANION GAP 10 MMOL/L (8-16); BILIRUBIN,DIRECT 0.1 mg/dL (0.0-0.2); BILIRUBIN,TOTAL 0.3 mg/dL (0.2-1); BILIRUBIN,TOTAL 0.4 mg/dL (0.2-1); BLOOD UREA NITROGEN 36 mg/dL (7-18); CHLORIDE 98 mmol/L (98-107); CO2 23 mmol/L (21-32); CREATININE 1.6 mg/dL (0.55-1.3); GLUCOSE,RANDOM 169 mg/dL (74-106); MAGNESIUM 1.3 mg/dL (1.8-2.4); POTASSIUM 4.6 mmol/L (3.5-5.1); SGOT/AST 15 U/L (15-37); SGPT/ALT 17 U/L (13-61); SODIUM 130 mmol/L (136-145); TOT PROT 6.4 g/dl (6.4-8.2)
[2018-11-18] MEDS ORDERED: SODIUM CHLORIDE 500 ML IV STA (13:05)
[2018-11-18] MEDS ORDERED: ONDANSETRON 8 MG TABLET (FP) PO ONE (13:06)
[2018-11-18] MEDS ORDERED: MAGNESIUM SULF 50% (8.12 MEQ/2 ML-1 GM VIAL) IVPB ONE (13:07)
[2018-11-18] MEDS ORDERED: SODIUM CHLORIDE 750 ML IV STA (13:07)
[2018-11-18] MEDS ORDERED: ONDANSETRON 4 MG TABLET PO ONE (13:56)
[2018-11-18] MEDS ORDERED: ZOLEDRONIC ACID 3.5 MG in SODIUM CHLORIDE 100 ML IVPB ONE (18:00)
[2018-11-18 19:03] VITALS: BP 128/69; PULSE 83; TEMP 98.5
== END 2018-11-18 19:04 | disposition home or self-care (01) ==
LOC: JONCCHEMO 07:07 → J7W 13:35 → JONCCHEMO 19:04
PROVIDERS: ATTEND Internal Medicine Hematology & Oncology
PROC: 3E033GC Introduction of Other Therapeutic Substance into Peripheral Vein, Percutaneous Approach (ICD-10-PCS; principal; 2018-11-18)
PROC: 3E033GC Introduction of Other Therapeutic Substance into Peripheral Vein, Percutaneous Approach (ICD-10-PCS; 2018-11-18)
DX: C90.00 Multiple myeloma not having achieved remission (principal); Z76.89 Persons encountering health services in other specified circumstances
CPT/HCPCS: 36415; 80053; 80076; 81003; 81015; 83735; 85025; 87086; 96361; 96365; 96367; 96417; J3489; J7030; J9041

== ENCOUNTER 2018-11-20 06:46 | Inpatient (IN) | payer OTHER ==
--- NOTE | 2018-11-20 07:34 | PDOC ---
History of Present Illness - General Chief Complaint: Pain, Acute Stated Complaint: HIGH BP Time Seen by Provider: 11/20/18 07:30 History Source: Patient Exam Limitations: No Limitations - History of Present Illness Initial Comments: Pt is a 63 yo M, with PMH of HTN, HLD, IDDM, Hep C (on Harvoni), PVD/LE ulcers, past opioid use (on methadone), and multiple myeloma (dx last month), wo is presenting with complaints of nausea, vomiting, abdominal distension and discomfort, and constipation x3 days. Pt has complex history, and was diagnosed with multiple myeloma last month; last chemo treatment was on Wednesday (Dr. Grady ). Pt states he has had difficulty having BMs, and he has taken multiple enemas and miralax twice per day for the past 3 days with minimal relief. He passed minimal stool yesterday and has been straining, and this AM he noticed small amount of blood on toilet paper with wiping. Since last night, he has noticed his abdomen more distended, has had SOB with abdominal distension, and has not been tolerating PO intake due to multiple episodes of NBNB vomiting. His last vomit "looked red," but pt admits to eating a red jello just prior. Pt denies any recent fevers/chills, headache, vision changes, syncope, chest pain, palpitations, urinary symptoms, diarrhea, or worsened leg swelling. Social: Pt denies any cigarette, alcohol, or drug use. Pt denies any recent travel or sick contacts. Surgical: R 5th toe removal. Family: no relevant history. 11/20/18 09:53 Past History - Travel Traveled outside of the country in the last 30 days: No Close contact w/someone who was outside of country & ill: No - Past Medical History Allergies/Adverse Reactions: Allergies Allergy/AdvReac Type Severity Reaction Status Date / Time No Known Allergies Allergy Verified 10/29/18 03:32 Home Medications: Ambulatory Orders Albuterol Sulfate Inhaler - [Ventolin HFA Inhaler -] 2 puff PO QID PRN 06/07/15 Aspirin [Aspirin EC] 81 mg PO DAILY 06/07/15 Enalapril Maleate [Vasotec -] 20 mg PO DAILY 06/07/15 Insulin Glargine,Hum.rec.anlog [Lantus (10mL VIAL) -] 40 unit SQ HS 06/07/15 Salmeterol/Fluticasone [Advair 100Mcg/50Mcg -] 1 puff PO BID 06/07/15 Sertraline HCl 50 mg PO DAILY 06/07/15 metFORMIN HCL [Metformin HCl] 1,000 mg PO BID 06/07/15 Acetaminophen [Tylenol .Regular Strength -] 650 mg PO Q6H PRN #0 tablet Methadone [Dolophine -] 70 mg PO DAILY 01/30/16 Buspirone HCl 15 mg PO BID 07/22/18 Metoprolol Tartrate [Lopressor -] 25 mg PO BID #60 tablet 07/27/18 Nifedipine ER [Procardia XL -] 30 mg PO DAILY #30 tab.er.24 07/27/18 Anemia: Yes Asthma: Yes Cancer: Yes (myeloma) COPD: Yes Diabetes: Yes GI Disorders: Yes (hep c) HTN: Yes Hypercholesterolemia: Yes - Surgical History Orthopedic Surgery: Yes (right toe removed) - Suicide/Smoking/Psychosocial Hx Smoking History: Former smoker Have you smoked in the past 12 months: No If you are a former smoker, when did you quit?: 1996 Information on smoking cessation initiated: No Hx Alcohol Use: No Drug/Substance Use Hx: No Substance Use Type: None, Cocaine, Heroin Hx Substance Use Treatment: No Review of Systems - Review of Systems Able to Perform ROS?: Yes Is the patient limited Hungarian proficient: No Constitutional: Yes: Weight Stable. No: Chills, Diaphoresis, Fever, Loss of Appetite, Malaise, Weakness HEENTM: No: Recent change in vision, Nose Congestion, Difficulty Swallowing Respiratory: Yes: See HPI, Shortness of Breath, SOB with Exertion, SOB at Rest. No: Cough, Orthopnea, Wheezing, Productive cough, Hemoptysis Cardiac (ROS): No: Chest Pain, Edema, Irregular Heart Rate, Lightheadedness, Palpitations, Syncope, Chest Tightness ABD/GI: Yes: Abdominal Distended, Constipated, Nausea, Poor Appetite, Vomiting. No: Abd. Pain w/ defecation, Blood Streaked Bowels, Diarrhea, Difficulty Swallowing, Poor Fluid Intake (drinking excess water for constipation), Rectal Bleeding, Indigestion, Abdominal cramping, Tarry Stools : No: Burning, Dysuria, Frequency, Pain Musculoskeletal: Yes: Back Pain (chronic, "throughout his back"). No: Joint Pain, Joint Swelling Integumentary: No: Rash Neurological: No: Headache, Numbness, Paresthesia, Weakness, Unsteady Gait, Ataxia, Dizziness Psychiatric: No: Sleep Pattern Change, Change in Appetite Endocrine: No: Increased Urine, Change in Weight Hematologic/Lymphatic: Yes: Anemia (per chart review). No: Blood Clots, Easy Bleeding, Easy Bruising All Other Systems: Reviewed and Negative *Physical Exam - Vital Signs Last Vital Signs Temp Pulse Resp BP Pulse Ox 98.4 F 102 H 22 H 166/92 96 11/20/18 07:11 11/20/18 07:11 11/20/18 07:11 11/20/18 07:11 11/20/18 07:11 - Physical Exam Comments: Pt tachycardic, RR 22 -- resolved on PE once pt calmed. Pt in NAD, appears overweight. PE showed pt alert and oriented. matchbook assembler generally intact, muscular strength and sensation intact. Eyes PERRLA, EOMI. Oropharynx without erythema or exudates. No nasal congestion, hearing intact. Clear heart sounds, S1/S2, no JVD, or heart murmur. Pt has mild pitting edema to mid-shins with mild hyperkeratosis and darkening of skin on LEs b/l (pt states chronic). Lung sounds slightly diminished throughout, but no respiratory distress, wheezes, crackles, or accessory muscle use. Abdomen appears distended and feels taut. No abdominal or CVA tenderness to palpation, no rebound, no guarding. Normoactive bowel sounds x4 quadrants. Skin without jaundice or rash except as noted above. 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 11/20/18 10:22 Moderate Sedation - Procedure Monitoring Vital Signs: Procedure Monitoring Vital Signs Temperature 98.4 F 11/20/18 07:11 Pulse Rate 102 H 11/20/18 07:11 Respiratory Rate 22 H 11/20/18 07:11 Blood Pressure 166/92 11/20/18 07:11 O2 Sat by Pulse Oximetry (%) 96 11/20/18 07:11 ED Treatment Course - LABORATORY CBC & Chemistry Diagram: 11/20/18 08:30 11/20/18 08:30 Medical Decision Making - Medical Decision Making Pt was seen at bedside, also will be seen by attending Dr. Ewing. Pt presenting with complaints of nausea, vomiting, abdominal distension and discomfort, and constipation x3 days. Pt has complex history, and was diagnosed with multiple myeloma last month; last chemo treatment was on Wednesday (Dr. Grady ). Pt states he has had difficulty having BMs, and he has taken multiple enemas and miralax twice per day for the past 3 days with minimal relief. He passed minimal stool yesterday and has been straining, and this AM he noticed small amount of blood on toilet paper with wiping. Since last night, he has noticed his abdomen more distended, has had SOB with abdominal distension, and has not been tolerating PO intake due to multiple episodes of NBNB vomiting. His last vomit "looked red," but pt admits to eating a red jello just prior. Pt denies any recent fevers/chills, headache, vision changes, syncope, chest pain, palpitations, urinary symptoms, diarrhea, or worsened leg swelling. Pt tachycardic, RR 22 -- resolved on PE once pt calmed. Pt in NAD, appears overweight. PE showed pt alert and oriented. matchbook assembler generally intact, muscular strength and sensation intact. Eyes PERRLA, EOMI. Oropharynx without erythema or exudates. No nasal congestion, hearing intact. Clear heart sounds, S1/S2, no JVD, or heart murmur. Pt has mild pitting edema to mid-shins with mild hyperkeratosis and darkening of skin on LEs b/l (pt states chronic). Lung sounds slightly diminished throughout, but no respiratory distress, wheezes, crackles, or accessory muscle use. Abdomen appears distended and feels taut. No abdominal or CVA tenderness to palpation, no rebound, no guarding. Normoactive bowel sounds x4 quadrants. Skin without jaundice or rash except as noted above. 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 Pt not febrile, last labs 11/18 showed no neutropenia -- rectal exam without any palpable stool burden, no gross blood on exam, no firm prostate. Considering obstruction vs functional constipation vs gastroparesis vs diverticulitis/colitis vs pancreatitis/hepatitis vs UTI. Less likely ischemic bowel as pain is associated with constipation, and pain has been consistent, not intermittent. Last CT abd/pelvis done 07/2018 showed no AAA. Ordered work-up including CBC, CMP, cardiac profile, Mg, Phos, lactic, UA, urine culture, chest x-ray, and CT abd/pelvis with IV contrast (r/o obstruction) . Provided 1 g ofirmev and 4 mg IV zofran for improvement of pain and nausea. Will continue to reassess pt and monitor for symptomatic improvement. ECG: NSR, intervals WNL. T wave depressions in lateral leads, unchanged from prior. Stool for occult blood negative. 11/20/18 08:40 CBC: no increased WBC, no neutropenia. +anemia compared to last visits Chest x-ray: no acute pathology. 11/20/18 09:04 CMP: Na 123, Cl 90, BUN/Cr 44/1.6 (similar to prior) -- electrolytes normally low, now in addition to anemia -- possible dilution? pt states drinking excess water for constipation per Dr. Grady. Trop .07 -- demand? no significant ECG changes 11/20/18 09:[address] abd/pelvis without contrast with elevated Cr. 11/20/18 10:[address], pending read. 11/20/18 11:27 UA negative for infection. Pending read of CT abd/pelvis. Providing 10 mg IV reglan and 25 mg IV benadryl for continued nausea. 11/20/18 11:54 Impression: No definite CT findings of acute pathology are identified. Moderate to marked colonic fecal retention is noted as discussed above. In comparison to a prior abdomen/pelvic CT study of 07/20/2018 interval development of multilevel thoracolumbar vertebral body compression fractures is noted which are probably pathologic. Note is again made of multiple osteolytic lesions within the visualized skeleton. 11/20/18 12:11 Providing glycerin suppository (avoiding osmotic). Pt has been taking fleet enemas and stool softener. Paging for admission. 11/20/18 12:25 Spoke with hospitalist team, admitted for inpatient management. Pt sleeping comfortably. 11/20/18 13:08 11/20/18 19:00 *DC/Admit/Observation/Transfer Diagnosis at time of Disposition: Hyponatremia, Troponin I above reference range, Intractable abdominal pain Nausea and vomiting Qualifiers: Vomiting type: unspecified Vomiting Intractability: non-intractable Qualified Code(s): R11.2 - Nausea with vomiting, unspecified Constipation Qualifiers: Constipation type: unspecified constipation type Qualified Code(s): K59.00 - Constipation, unspecified - Discharge Dispostion Condition at time of disposition: Stable Decision to Admit order: Yes - Referrals - Patient Instructions - Post Discharge Activity
--- NOTE | 2018-11-20 08:29 | PDOC ---
Attending Attestation - Resident Resident Name: Cecilia Brown - ED Attending Attestation I have performed the following: I have examined & evaluated the patient, The case was reviewed & discussed with the resident, I agree w/resident's findings & plan, Exceptions are as noted - HPI HPI: 11/20/18 08:26 63yo M hx HTN, HL, IDDM c/b PVD, HCV s/p harvoni, previous opioid abuse on methadone, active MM on chemo (follows w Dr. Grady, last chemo 2 days ago) presents with constipation. Was able to have small BM yesterday but states his belly feels very "full." Tried enemas, miralax w/o success. Today blood when he wiped after straining. +Nausea and non bilious vomiting since last night. Last episode of emesis with streaks of blood, but patient had eaten jello prior. No fevers, chills, cough, cp, sob, weakness, headache, numbness. - Physicial Exam PE: 11/20/18 08:43 agree with resident exam - Medical Decision Making 11/20/18 08:43 63yo M with MMP including MM on chemo, methadone use presents with abd pain, constipation, and abd distention. Vitals with mild tachycardia, otherwise wnl. Exam with abd distention, no rectal fecal impaction. DDx includes SOB vs ileus vs opioid related constipation. Plan -labs -UA -CTAP -NPO -reassess 11/20/18 13:15 Labs with mild trop leak, possible demand? EKG unchanged compared to prior Pt also hyponatremic to 123 CTAP with mod to marked fecal retention Pt given glycerni suppository and admitted for further mgmt Case discussed in detail with admitting physician including history, physical exam and ancillary studies. Admitting physician has assumed care for the patient, will follow all pending diagnostics and will complete the evaluation and treatment.
[2018-11-20] MEDS ORDERED: ONDANSETRON 4 MG/2 ML VIAL IVPUSH ONE ×2 (08:48→11:54)
[2018-11-20] MEDS ORDERED: ACETAMINOPHEN 1000 MG/100 ML VIAL (NON FORMULARY) IVPB ONE (08:48)
[2018-11-20 08:58] LABS: BASO % 0.3 % (0-2.0); EOS % 0.6 % (0-4.5); HEMATOCRIT 27.4 % (35.4-49); HEMOGLOBIN 9.9 GM/dL (11.7-16.9); LYMPH % 6.9 % (8-40); MCH 29.4 pg (25.7-33.7); MEAN CELL VOLUME 81.6 fl (80-96); MEAN PLT VOLUME 6.7 fl (7.5-11.1); MONO % 5.9 % (3.8-10.2); NEUT % 86.3 % (42.8-82.8); PLATELET COUNT 197 K/MM3 (134-434); RBC 3.36 M/mm3 (4.00-5.60); RDW 16.2 % (11.9-15.9); WHITE BLOOD COUNT 5.8 K/mm3 (4.0-10.0)
[2018-11-20] MEDS ORDERED: ACETAMINOPHEN INJECTION 100 ML IVPB ONE (09:02)
[2018-11-20] MEDS ORDERED: ONDANSETRON 4 MG/2 ML VIAL ONE (09:03)
[2018-11-20 09:21] LABS: INR 1.05 (0.83-1.09); PROTHROMBIN TIME (PATIENT) 12.4 SEC (9.7-13.0)
[2018-11-20 09:22] LABS: ALBUMIN 3.2 g/dl (3.4-5.0); ALK PHOS 124 U/L (45-117); ANION GAP 10 MMOL/L (8-16); BILIRUBIN,TOTAL 0.2 mg/dL (0.2-1); BLOOD UREA NITROGEN 44 mg/dL (7-18); CALCIUM 7.6 mg/dL (8.5-10.1); CHLORIDE 90 mmol/L (98-107); CO2 23 mmol/L (21-32); CREATININE 1.6 mg/dL (0.55-1.3); GLUCOSE,RANDOM 167 mg/dL (74-106); LIPASE 242 U/L (73-393); MAGNESIUM 1.8 mg/dL (1.8-2.4); PHOSPHOROUS 3.1 mg/dL (2.5-4.9); POTASSIUM 4.4 mmol/L (3.5-5.1); SGOT/AST 22 U/L (15-37); SGPT/ALT 21 U/L (13-61); SODIUM 123 mmol/L (136-145); TOT PROT 6.4 g/dl (6.4-8.2)
[2018-11-20] MEDS ORDERED: METOCLOPRAMIDE HCL INJECTION 10 MG/2 ML VIAL IVPUSH ONE (11:55)
[2018-11-20] MEDS ORDERED: GLYCERIN 1 RECTAL SUPPOSITORY, ADULT PR ONE (12:25)
[2018-11-20] MEDS ORDERED: GLYCERIN 1 RECTAL SUPPOSITORY, PEDIATRIC RC ONE (12:33)
[2018-11-20] MEDS ORDERED: METOCLOPRAMIDE HCL INJECTION 10 MG/2 ML VIAL ONE (12:33)
--- NOTE | 2018-11-20 12:45 | EKG ---
Test Reason : Blood Pressure : / mmHG Vent. Rate : 090 BPM Atrial Rate : 090 BPM P-R Int : 170 ms QRS Dur : 082 ms QT Int : 372 ms P-R-T Axes : 061 022 051 degrees QTc Int : 455 ms NORMAL SINUS RHYTHM NONSPECIFIC ST ABNORMALITY ABNORMAL ECG Confirmed by RUDI MENDEZ MD ([id number]) on 11/20/2018 12:45:13 PM Referred By: Confirmed By:RUDI MENDEZ MD
[2018-11-20 12:58] LABS: URINE APPEARANCE CLEAR; URINE BILIRUBIN NEGATIVE (<2.0 mg/dL); URINE COLOR STRAW; URINE GLUCOSE (UA) NEGATIVE (NEGATIVE); URINE KETONE NEGATIVE (NEGATIVE); URINE LEUK ESTERASE NEGATIVE (NEGATIVE); URINE NITRITE NEGATIVE (NEGATIVE); URINE PROTEIN 3+ (NEGATIVE); URINE UROBILINOGEN NEGATIVE mg/dL (0.2-1.0)
[2018-11-20 13:50] LABS: EPI CELLS RARE /HPF (FEW)
[2018-11-20] MEDS ORDERED: SODIUM CHLORIDE 1,000 ML IV SCH ×2 (16:00→18:23)
[2018-11-20] MEDS ORDERED: ALBUTEROL SO4 8 GM HFA INHALER IH PRN (16:03)
[2018-11-20] MEDS ORDERED: BISACODYL 5 MG TABLET.DR (FP) PO ONE (16:15)
[2018-11-20] MEDS ORDERED: GLYCERIN 1 RECTAL SUPPOSITORY, ADULT RC ONE (16:15)
--- NOTE | 2018-11-20 16:21 | HP ---
CHIEF COMPLAINT: Abdominal discomfort and constipation PCP: dr grady HISTORY OF PRESENT ILLNESS: Pt is a 63 yo M, with PMH of HTN, HLD, IDDM, Hep C (on Harvoni), PVD/LE ulcers, past opioid use (on methadone), and multiple myeloma (dx last month), who is presenting with complaints of nausea, vomiting, abdominal distension and discomfort, and constipation x3 days. Pt was diagnosed with multiple myeloma last month; last chemo treatment was on Wednesday (Dr. Grady). Pt states he has had difficulty having BMs, and he has taken multiple enemas and miralax twice per day for the past 3 days with minimal relief. He passed minimal stool yesterday and has been straining, and this AM he noticed small amount of blood on toilet paper with wiping. Since last night, he has noticed his abdomen more distended, has had SOB with abdominal distension, and has not been tolerating PO intake due to multiple episodes of NBNB vomiting. His last vomit "looked red, " but pt admits to eating a red jello just prior. Pt denies any recent fevers/ chills, headache, vision changes, syncope, chest pain, palpitations, urinary symptoms, diarrhea, or worsened leg swelling. in er he has normal ct scan of abdomen and has no obstruction. He also have low sodium in first blood test in er . His elevation of blood creatinine is unchanged from last visit ER course was notable for: (1)no Bm for 3 days (2)hyponatremia (3)multiple myeloma Recent Travel: none PAST MEDICAL HISTORY: PMH of HTN, HLD, IDDM, Hep C (on Harvoni), PVD/LE ulcers, past opioid use (on methadone), and multiple myeloma (dx last month), PAST SURGICAL HISTORY: Social History: Smoking:ex smoker Alcohol:none Drugs: iv dugs use and hep c Family History: Allergies No Known Allergies Allergy (Verified 10/29/18 03:32) HOME MEDICATIONS: Home Medications Medication Instructions Recorded Albuterol Sulfate Inhaler - 2 puff PO QID PRN 06/07/15 [Ventolin HFA Inhaler -] Aspirin [Aspirin EC] 81 mg PO DAILY 06/07/15 Enalapril Maleate [Vasotec -] 20 mg PO DAILY 06/07/15 Insulin Glargine,Hum.rec.anlog 40 unit SQ HS 06/07/15 [Lantus (10mL VIAL) -] Salmeterol/Fluticasone [Advair 1 puff PO BID 06/07/15 100Mcg/50Mcg -] Sertraline HCl 50 mg PO DAILY 06/07/15 metFORMIN HCL [Metformin HCl] 1,000 mg PO BID 06/07/15 Acetaminophen [Tylenol .Regular 650 mg PO Q6H PRN #0 tablet 06/14/15 Strength -] Methadone [Dolophine -] 70 mg PO DAILY 01/30/16 Buspirone HCl 15 mg PO BID 07/22/18 Metoprolol Tartrate [Lopressor -] 25 mg PO BID #60 tablet 07/27/18 Nifedipine ER [Procardia XL -] 30 mg PO DAILY #30 tab.er.24 07/27/18 REVIEW OF SYSTEMS CONSTITUTIONAL: Absent: fever, chills, diaphoresis, generalized weakness, malaise, loss of appetite, weight change HEENT: Absent: rhinorrhea, nasal congestion, throat pain, throat swelling, difficulty swallowing, mouth swelling, ear pain, eye pain, visual changes CARDIOVASCULAR: Absent: chest pain, syncope, palpitations, irregular heart rate, lightheadedness , peripheral edema RESPIRATORY: Absent: cough, shortness of breath, dyspnea with exertion, orthopnea, wheezing, stridor, hemoptysis GASTROINTESTINAL: present abdominal pain, abdominal distension, nausea, vomiting, absent diarrhea , constipation, melena, hematochezia GENITOURINARY: Absent: dysuria, frequency, urgency, hesitancy, hematuria, flank pain, genital pain MUSCULOSKELETAL: Absent: myalgia, arthralgia, joint swelling, back pain, neck pain SKIN: Absent: rash, itching, pallor HEMATOLOGIC/IMMUNOLOGIC: Absent: easy bleeding, easy bruising, lymphadenopathy, frequent infections ENDOCRINE: Absent: unexplained weight gain, unexplained weight loss, heat intolerance, cold intolerance NEUROLOGIC: Absent: headache, focal weakness or paresthesias, dizziness, unsteady gait, seizure, mental status changes, bladder or bowel incontinence PSYCHIATRIC: Absent: anxiety, depression, suicidal or homicidal ideation, hallucinations. PHYSICAL EXAMINATION Vital Signs - 24 hr 11/20/18 11/20/18 11/20/18 07:11 08:00 11:00 Temperature 98.4 F 98.5 F 98.5 F Pulse Rate 102 H Pulse Rate [ 90 93 H Apical] Respiratory 22 H 20 22 H Rate Blood Pressure 166/92 Blood Pressure 151/77 158/77 [Left Arm] O2 Sat by Pulse 96 93 L 97 Oximetry (%) 11/20/18 11:24 Temperature Pulse Rate Pulse Rate [ Apical] Respiratory Rate Blood Pressure Blood Pressure [Left Arm] O2 Sat by Pulse 99 Oximetry (%) GENERAL: Awake, alert, and fully oriented, in no acute distress. HEAD: Normal with no signs of trauma. EYES: Pupils equal, round and reactive to light, extraocular movements intact, sclera anicteric, conjunctiva clear. No lid lag. EARS, NOSE, THROAT: Ears normal, nares patent, oropharynx clear without exudates. Moist mucous membranes. NECK: Normal range of motion, supple without lymphadenopathy, JVD, or masses. LUNGS: Breath sounds equal, clear to auscultation bilaterally. No wheezes, and no crackles. No accessory muscle use. HEART: Regular rate and rhythm, normal S1 and S2 without murmur, rub or gallop. ABDOMEN: Soft, distended and rectal exam has no dry stool and empty rectum MUSCULOSKELETAL: Normal range of motion at all joints. No bony deformities or tenderness. No CVA tenderness. UPPER EXTREMITIES: 2+ pulses, warm, well-perfused. No cyanosis. No clubbing. No peripheral edema. LOWER EXTREMITIES: 2+ pulses, warm, well-perfused. No calf tenderness. No peripheral edema. NEUROLOGICAL: Cranial nerves II-XII intact. Normal speech. Normal gait. PSYCHIATRIC: Cooperative. Good eye contact. Appropriate mood and affect. SKIN: Warm, dry, normal turgor, no rashes or lesions noted, normal capillary refill. Laboratory Results - last 24 hr 11/20/18 11/20/18 11/20/18 08:15 08:30 08:30 WBC 5.8 RBC 3.36 L Hgb 9.9 L Hct 27.4 L MCV 81.6 MCH 29.4 MCHC 36.0 H RDW 16.2 H Plt Count 197 MPV 6.7 L D Absolute Neuts (auto) 5.0 Neutrophils % 86.3 H Lymphocytes % 6.9 L D Monocytes % 5.9 Eosinophils % 0.6 Basophils % 0.3 Nucleated RBC % 0 PT with INR 12.40 INR 1.05 Sodium Potassium Chloride Carbon Dioxide Anion Gap BUN Creatinine Creat Clearance w eGFR Random Glucose Lactic Acid Calcium Phosphorus Magnesium Total Bilirubin AST ALT Alkaline Phosphatase Creatine Kinase Troponin I Total Protein Albumin Lipase Urine Color Urine Appearance Urine pH Ur Specific [place] Urine Protein Urine Glucose (UA) Urine Ketones Urine Blood Urine Nitrite Urine Bilirubin Urine Urobilinogen Ur Leukocyte Esterase Urine WBC (Auto) Urine RBC (Auto) Ur Epithelial Cells Stool Occult Blood Negative 11/20/18 11/20/18 11/20/18 08:30 08:30 12:45 WBC RBC Hgb Hct MCV MCH MCHC RDW Plt Count MPV Absolute Neuts (auto) Neutrophils % Lymphocytes % Monocytes % Eosinophils % Basophils % Nucleated RBC % PT with INR INR Sodium 123 L Potassium 4.4 Chloride 90 L Carbon Dioxide 23 Anion Gap 10 BUN 44 H Creatinine 1.6 H Creat Clearance w eGFR 43.60 Random Glucose 167 H Lactic Acid 0.9 Calcium 7.6 L Phosphorus 3.1 Magnesium 1.8 Total Bilirubin 0.2 AST 22 ALT 21 Alkaline Phosphatase 124 H Creatine Kinase 93 Troponin I 0.07 H Total Protein 6.4 Albumin 3.2 L Lipase 242 Urine Color Straw Urine Appearance Clear Urine pH 6.0 Ur Specific [place] 1.009 L Urine Protein 3+ H Urine Glucose (UA) Negative Urine Ketones Negative Urine Blood Negative Urine Nitrite Negative Urine Bilirubin Negative Urine Urobilinogen Negative Ur Leukocyte Esterase Negative Urine WBC (Auto) <1 Urine RBC (Auto) None Ur Epithelial Cells Rare Stool Occult Blood ASSESSMENT/PLAN: Pt is a 63 yo M, with PMH of HTN, HLD, IDDM, Hep C (on Harvoni), PVD/LE ulcers, past opioid use (on methadone), and multiple myeloma (dx last month), who is presenting with complaints of nausea, vomiting, abdominal distension and discomfort, and constipation x3 days. 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 - New Patient This patient is new to me today: Yes Date on this admission: 02/24/19 - Critical Care Critical Care patient: No
[2018-11-20] MEDS ORDERED: metFORMIN HCL 500 MG TABLET (FP) PO SCH (16:30)
--- NOTE | 2018-11-20 18:21 | CONSULT ---
Consult Consult Specialty:: Nephrology Reason for Consultation:: ckd and hyponatremia - History of Present Illness Chief Complaint: nausea and vomiting History of Present Illness: Pt is a 63 year old male with pmhx of HTN, HLD, DM, CKD, Hep C on Harvoni, multiple myeloma, and hx of opioid abuse on methadone who presents to the ER complaining of nausea and vomiting. He says that he has been vomiting for the last three days. He also complains of constipation. He denies dysuria or hematuria. He is being treated for multiple myeloma. He denies shortness of breath. He was found to be hyponatremic and in renal failure and I was called to evaluate him. He says he does not have appetite. He denies nsaid use. He denies headaches or change in vision. - History Source History Provided By: Patient, Medical Record - Past Medical History Cardio/Vascular: Yes: HTN, Hyperlipdemia Pulmonary: Yes: Asthma Renal/: Yes: Renal Inusuff Psych: Yes: Depression Endocrine: Yes: Diabetes Mellitus Dermatology: Yes: Other (varicose veins) - Alcohol/Substance Use Hx Alcohol Use: No History of Substance Use: reports: None - Smoking History Smoking history: Former smoker Have you smoked in the past 12 months: No If you are a former smoker, when did you quit?: 1996 - Social History ADL: Independent History of Recent Travel: Yes (to [place] in past 2 weeks ) Home Medications - Allergies Allergies/Adverse Reactions: Allergies Allergy/AdvReac Type Severity Reaction Status Date / Time No Known Allergies Allergy Verified 10/29/18 03:32 - Home Medications Home Medications: Ambulatory Orders Albuterol Sulfate Inhaler - [Ventolin HFA Inhaler -] 2 puff PO QID PRN 06/07/15 Aspirin [Aspirin EC] 81 mg PO DAILY 06/07/15 Enalapril Maleate [Vasotec -] 20 mg PO DAILY 06/07/15 Insulin Glargine,Hum.rec.anlog [Lantus (10mL VIAL) -] 40 unit SQ HS 06/07/15 Salmeterol/Fluticasone [Advair 100Mcg/50Mcg -] 1 puff PO BID 06/07/15 Sertraline HCl 50 mg PO DAILY 06/07/15 metFORMIN HCL [Metformin HCl] 1,000 mg PO BID 06/07/15 Acetaminophen [Tylenol .Regular Strength -] 650 mg PO Q6H PRN #0 tablet Methadone [Dolophine -] 70 mg PO DAILY 01/30/16 Buspirone HCl 15 mg PO BID 07/22/18 Metoprolol Tartrate [Lopressor -] 25 mg PO BID #60 tablet 07/27/18 Nifedipine ER [Procardia XL -] 30 mg PO DAILY #30 tab.er.24 07/27/18 Family Disease History - Family Disease History Family Disease History: Other: Mother (asthma ) Review of Systems - Review of Systems Constitutional: reports: Malaise. denies: Chills, Fever Eyes: reports: No Symptoms HENT: reports: No Symptoms Neck: reports: No Symptoms Cardiovascular: reports: No Symptoms Respiratory: reports: No Symptoms Gastrointestinal: reports: Bloating, Nausea, Vomiting Genitourinary: reports: No Symptoms Musculoskeletal: reports: Back Pain Integumentary: reports: No Symptoms Neurological: reports: No Symptoms Endocrine: reports: No Symptoms Hematology/Lymphatic: reports: No Symptoms Psychiatric: reports: No Symptoms Physical Exam Vital Signs: Vital Signs Temperature 98.9 F 11/20/18 16:31 Pulse Rate 92 H 11/20/18 16:31 Respiratory Rate 22 H 11/20/18 16:31 Blood Pressure 158/86 11/20/18 16:31 O2 Sat by Pulse Oximetry (%) 94 L 11/20/18 16:31 Constitutional: Yes: Calm Eyes: Yes: Conjunctiva Clear HENT: Yes: Atraumatic Neck: Yes: Supple Cardiovascular: Yes: S1, S2 Respiratory: Yes: CTA Bilaterally Gastrointestinal: Yes: Soft, Abdomen, Obese Renal/: Yes: WNL Musculoskeletal: Yes: WNL Edema: No Neurological: Yes: Oriented Psychiatric: Yes: Oriented Labs: CBC, BMP 11/20/18 08:30 11/20/18 08:30 Laboratory Tests 11/11/18 11/18/18 11/20/18 10:27 11:35 08:30 WBC 5.8 Hgb 9.9 L Plt Count 197 Sodium 134 L 130 L Potassium BUN Creatinine 1.6 H 11/20/18 08:30 WBC Hgb Plt Count Sodium 123 L Potassium 4.4 BUN 44 H Creatinine 1.6 H Imaging - Results Chest X-ray: Report Reviewed Cat Scan: Report Reviewed Problem List - Problems (1) CKD (chronic kidney disease) Code(s): N18.9 - CHRONIC KIDNEY DISEASE, UNSPECIFIED (2) Constipation Code(s): K59.00 - CONSTIPATION, UNSPECIFIED Qualifiers: Constipation type: unspecified constipation type Qualified Code(s): K59.00 - Constipation, unspecified (3) Hyponatremia Code(s): E87.1 - HYPO-OSMOLALITY AND HYPONATREMIA Assessment/Plan Current Medications Generic Name Dose Route Start Last Admin Trade Name Freq PRN Reason Stop Dose Admin Acetaminophen 650 mg 11/20/18 16:03 Tylenol - PO Q6H PRN FEVER Albuterol Sulfate 2 puff 11/20/18 16:03 Ventolin Hfa Inhaler - IH Q6H PRN WHEEZING Aspirin 81 mg 11/21/18 10:00 Ecotrin - PO DAILY YAKOV Buspirone HCl 15 mg 11/20/18 22:00 Buspar - PO BID YAKOV Enalapril Maleate 20 mg 11/21/18 10:00 Vasotec - PO DAILY [facility] Heparin Sodium (Porcine) 5,000 unit 11/20/18 22:00 Heparin - SQ BID YAKOV Sodium Chloride 1,000 mls @ 42 mls/hr 11/20/18 16:00 11/20/18 16:18 Normal Saline - IV 42 mls/hr ASDIR [facility] Administration Insulin Detemir 40 units 11/20/18 22:00 Levemir Vial SQ HS YAKOV Metformin HCl 1,000 mg 11/20/18 16:30 Glucophage - PO BIDAC [facility] Methadone HCl 70 mg 11/21/18 10:00 Dolophine - PO DAILY [facility] Metoprolol Tartrate 25 mg 11/20/18 22:00 Lopressor - PO BID YAKOV Nifedipine 30 mg 11/21/18 10:00 Procardia Xl - PO DAILY [facility] Fluticasone/Salmeterol 1 puff 11/20/18 22:00 Advair 100mcg/50mcg - IH BID [facility] Impression 1. hyppnatremia 2. CKD 3. nausea and vomiting 4. htn 5. DM 6. 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 multiple myeloma 9. anemia 10. 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
[2018-11-20] MEDS: SODIUM CHLORIDE 1,000 ML IV SCH (19:15)
[2018-11-20] MEDS: FLUTICASONE/SALMETEROL 100 MCG/50 MCG DISKUS IH SCH (21:24)
[2018-11-20] MEDS: HEPARIN NA (PORCINE) 5,000 UNITS/ML 1ML VIAL SQ SCH (21:25)
[2018-11-20] MEDS: busPIRone HCL 5 MG TABLET PO SCH (21:25)
[2018-11-20] MEDS: METOPROLOL TARTRATE 25 MG TABLET (FP) PO SCH (21:26)
[2018-11-20] MEDS: ACETAMINOPHEN 325 MG TABLET (FP) PO PRN (21:27)
[2018-11-20 21:45] LABS: ANION GAP 10 MMOL/L (8-16); BLOOD UREA NITROGEN 42 mg/dL (7-18); CALCIUM 7.6 mg/dL (8.5-10.1); CHLORIDE 94 mmol/L (98-107); CO2 21 mmol/L (21-32); CREATININE 1.6 mg/dL (0.55-1.3); GLUCOSE,RANDOM 108 mg/dL (74-106); POTASSIUM 4.4 mmol/L (3.5-5.1); SODIUM 125 mmol/L (136-145)
[2018-11-20] MEDS: INSULIN (LEVEMIR) 100 UNITS/ML UNITS SQ SCH (22:27)
[2018-11-20 23:06] LABS: OSMOLALITY,SERUM 271 mosm/kg (278-305)
[2018-11-21] MEDS: SODIUM CHLORIDE 1,000 ML IV SCH (06:01)
[2018-11-21 07:42] LABS: BASO % 0.4 % (0-2.0); HEMATOCRIT 25.9 % (35.4-49); LYMPH % 8.9 % (8-40); MCH 28.7 pg (25.7-33.7); MCHC 34.8 g/dl (32.0-35.9); MEAN CELL VOLUME 82.5 fl (80-96); MEAN PLT VOLUME 7.2 fl (7.5-11.1); MONO % 8.2 % (3.8-10.2); NEUT % 81.5 % (42.8-82.8); PLATELET COUNT 179 K/MM3 (134-434); RBC 3.14 M/mm3 (4.00-5.60); RDW 16.2 % (11.9-15.9); WHITE BLOOD COUNT 3.7 K/mm3 (4.0-10.0)
[2018-11-21 08:02] LABS: ALBUMIN 2.9 g/dl (3.4-5.0); ALK PHOS 118 U/L (45-117); ANION GAP 7 MMOL/L (8-16); BILIRUBIN,TOTAL 0.2 mg/dL (0.2-1); BLOOD UREA NITROGEN 38 mg/dL (7-18); CHLORIDE 97 mmol/L (98-107); CO2 24 mmol/L (21-32); CREATININE 1.7 mg/dL (0.55-1.3); GLUCOSE,RANDOM 120 mg/dL (74-106); POTASSIUM 4.6 mmol/L (3.5-5.1); SGOT/AST 13 U/L (15-37); SGPT/ALT 15 U/L (13-61); SODIUM 129 mmol/L (136-145); TOT PROT 5.8 g/dl (6.4-8.2)
[2018-11-21] MEDS ORDERED: METHADONE HCL 40 MG DISPERSABLE TABLET PO ONE (09:30)
[2018-11-21] MEDS: busPIRone HCL 5 MG TABLET PO SCH ×2 (09:34→22:29)
[2018-11-21] MEDS: ASPIRIN COATED 81 MG TABLET.EC PO SCH (09:34)
[2018-11-21] MEDS: METOPROLOL TARTRATE 25 MG TABLET (FP) PO SCH ×2 (09:34→21:56)
[2018-11-21] MEDS: NIFEdipine E.R. 30 MG TABLET (FP) PO SCH (09:34)
[2018-11-21] MEDS: HEPARIN NA (PORCINE) 5,000 UNITS/ML 1ML VIAL SQ SCH ×2 (09:34→21:51)
[2018-11-21] MEDS: FLUTICASONE/SALMETEROL 100 MCG/50 MCG DISKUS IH SCH (09:39)
[2018-11-21] MEDS ORDERED: ENALAPRIL MALEATE 10 MG TABLET (FP) PO SCH (10:00)
--- NOTE | 2018-11-21 10:57 | CONSULT ---
Consult - text type - Consultation Consultation Note: 63 yo M, with PMH of HTN, HLD, IDDM, Hep C (s/p Harvoni), PVD, past opioid use (on methadone), and multiple myeloma , who is presenting with complaints of nausea, vomiting, abdominal distension and discomfort, and constipation worsened over the weekend. He received radiation to L spine and left acetabulum. He has been on velcade/cytoxan/dexamethasone He comes in with constipation/vomiting Social: Pt denies any cigarette, alcohol, or drug use. Surgical: R 5th toe amputation Family: no relevant history. Allergies/Adverse Reactions: Allergies Allergy/AdvReac Type Severity Reaction Status Date / Time No Known Allergies Allergy Verified 10/29/18 03:32 Home Medications: Ambulatory Orders Albuterol Sulfate Inhaler - [Ventolin HFA Inhaler -] 2 puff PO QID PRN 06/07/15 Aspirin [Aspirin EC] 81 mg PO DAILY 06/07/15 Enalapril Maleate [Vasotec -] 20 mg PO DAILY 06/07/15 Insulin Glargine,Hum.rec.anlog [Lantus (10mL VIAL) -] 40 unit SQ HS 06/07/15 Salmeterol/Fluticasone [Advair 100Mcg/50Mcg -] 1 puff PO BID 06/07/15 Sertraline HCl 50 mg PO DAILY 06/07/15 metFORMIN HCL [Metformin HCl] 1,000 mg PO BID 06/07/15 Acetaminophen [Tylenol .Regular Strength -] 650 mg PO Q6H PRN #0 tablet Methadone [Dolophine -] 70 mg PO DAILY 01/30/16 Buspirone HCl 15 mg PO BID 07/22/18 Metoprolol Tartrate [Lopressor -] 25 mg PO BID #60 tablet 07/27/18 Nifedipine ER [Procardia XL -] 30 mg PO DAILY #30 tab.er.24 07/27/18 PMH Anemia: Yes Asthma: Yes Myeloma COPD: Yes Diabetes: Yes Hepatitis C HTN: Yes Hypercholesterolemia: Yes - Surgical History Orthopedic Surgery: Yes (right toe removed) - Suicide/Smoking/Psychosocial Hx Smoking History: Former smoker - Vital Signs Last Vital Signs Temp Pulse Resp BP Pulse Ox 98 F 85 22 H 149/85 94 L 11/21/18 05:50 11/21/18 05:50 02/18/19 05:50 11/21/18 05:50 11/20/18 21:00 Cor: RSR, No murmurs, No gallops Lungs: Clear to P&A Abd: Soft, Normal bowel sounds, No organomegaly Ext:No significant edema LAbs/Meds reviewed A/P 63 yo M, with PMH of HTN, HLD, IDDM, Hep C (s/p Reji), PVD, past opioid use ( on methadone), and multiple myeloma , who is presenting with complaints of nausea, vomiting, abdominal distension and discomfort, and constipation worsened over the weekend. He received radiation to L spine and left acetabulum. He has been on velcade/cytoxan/dexamethasone and started zometa monthly Also with back pain radiating across On methadopne/oxycodone Follow GI recommendations regarding constipation will request neuro surgery /rad-onc consult regarding vertebral compression fractures He had recent MRIs in 2018 will follow
[2018-11-21 11:22] LABS: RATIO URIN PROTEIN/URIN CREAT 8.42 MG/DL
--- NOTE | 2018-11-21 11:38 | CON.GI ---
Consult Consult Specialty:: Gastroenterology Referred by:: Dr Santosh Reynoso Reason for Consultation:: Abdominal pain - History of Present Illness Chief Complaint: Abdominal bloating due to constipation and right lower costal rib pain History of Present Illness: 63M is admitted for constipation. He has not been able to move his bowels for 4 days. He did have some liquid stool following CT contrast. He attributes his constipation to the onset of Velcaid & Cytoxan chemotherapy for multiple myeloma that was started 2 weeks ago. He had RT prior to that. Prior to that he was moving his bowels twice a day without effort despite chronic Methadone. He has peripheral neuropathy in stocking -glove distribution related to diabetes. He has never had a colonoscopy or EGD. He denies FH of colon cancer. No rectal bleeding. He was cured of Hepatitis C by my partner Dr Jesus Bedolla and attends [facility]. He acquired it snorting heroin and cocaine. He drank alcohol heavily until 10 years ago. He now drinks wine rarely. - History Source History Provided By: Patient Limitations to Obtaining History: No Limitations - Past Medical History APPLICATIONS SUPPORT ENGINEER: Yes: Peripheral Neuropathy (stocking glove distribution related to DM) Cardio/Vascular: Yes: HTN, Hyperlipdemia Pulmonary: Yes: Asthma, Other (left chest tube for rib fracture related pneumothorax afte a fall) Gastrointestinal: Yes: Constipation Hepatobiliary: Yes: Hepatitis C (cured several years ago with Dr Bedolla) Renal/: Yes: Renal Inusuff Heme/Onc: Yes: Cancer (multiple myeloma treated with RT and now Velban) Infectious Disease: Yes: Other (Hepatitis C cured) Psych: Yes: Depression Musculoskeletal: Yes: Chronic low back pain, Other (multiple thoracolumbar vertebral fractures) Endocrine: Yes: Diabetes Mellitus Dermatology: Yes: Other (varicose veins) Additional Medical History: Laser therapy for diabetic retinopathy - Past Surgical History Past Surgical History: Yes: Amputation (5th digit R foot), Tonsillectomy - Alcohol/Substance Use Hx Alcohol Use: Yes (rare glass of wine, drank heavily over 10 years ago) History of Substance Use: reports: None (snorted), Cocaine, Heroin (sorteh) - Smoking History Smoking history: Former smoker Have you smoked in the past 12 months: No If you are a former smoker, when did you quit?: 1996 - Social History Usual Living Arrangement: With Spouse ADL: Independent 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 Place of : [facility] History of Recent Travel: Yes (to [place] in past 2 weeks ) Home Medications - Allergies Allergies/Adverse Reactions: Allergies Allergy/AdvReac Type Severity Reaction Status Date / Time No Known Allergies Allergy Verified 10/29/18 03:32 - Home Medications Home Medications: Ambulatory Orders Albuterol Sulfate Inhaler - [Ventolin HFA Inhaler -] 2 puff PO QID PRN 06/07/15 Aspirin [Aspirin EC] 81 mg PO DAILY 06/07/15 Enalapril Maleate [Vasotec -] 20 mg PO DAILY 06/07/15 Insulin Glargine,Hum.rec.anlog [Lantus (10mL VIAL) -] 40 unit SQ HS 06/07/15 Salmeterol/Fluticasone [Advair 100Mcg/50Mcg -] 1 puff PO BID 06/07/15 Sertraline HCl 50 mg PO DAILY 06/07/15 metFORMIN HCL [Metformin HCl] 1,000 mg PO BID 06/07/15 Acetaminophen [Tylenol .Regular Strength -] 650 mg PO Q6H PRN #0 tablet Methadone [Dolophine -] 70 mg PO DAILY 01/30/16 Buspirone HCl 15 mg PO BID 07/22/18 Metoprolol Tartrate [Lopressor -] 25 mg PO BID #60 tablet 07/27/18 Nifedipine ER [Procardia XL -] 30 mg PO DAILY #30 tab.er.24 07/27/18 Family Disease History - Family Disease History Family Disease History: CA: Mother (asthma, breast cancer ), Other: Father ( 90 natural causes), Mother, Brother ( alcoholic cirrhosis) Review of Systems - Review of Systems Constitutional: reports: Weakness Eyes: reports: No Symptoms HENT: reports: No Symptoms Neck: reports: No Symptoms Cardiovascular: reports: Chest Pain (right lower costal rib myeloma pain) Respiratory: reports: No Symptoms Gastrointestinal: reports: Abdominal Pain, Bloating, Constipation Genitourinary: reports: No Symptoms Musculoskeletal: reports: Back Pain, Muscle Weakness Neurological: reports: Numbness, Parasthesia Physical Exam-GI Vital Signs: Vital Signs Temperature 98 F 11/21/18 05:50 Pulse Rate 85 11/21/18 05:50 Respiratory Rate 22 H 11/21/18 05:50 Blood Pressure 149/85 11/21/18 05:50 O2 Sat by Pulse Oximetry (%) 94 L 11/20/18 21:00 CBC,CMP WBC 3.7 K/mm3 (4.0-10.0) L 11/21/18 05:25 RBC 3.14 M/mm3 (4.00-5.60) L 11/21/18 05:25 Hgb 9.0 GM/dL (11.7-16.9) L 11/21/18 05:25 Hct 25.9 % (35.4-49) L 11/21/18 05:25 MCV 82.5 fl (80-96) 11/21/18 05:25 MCH 28.7 pg (25.7-33.7) 11/21/18 05:25 MCHC 34.8 g/dl (32.0-35.9) 11/21/18 05:25 RDW 16.2 % (11.9-15.9) H 11/21/18 05:25 Plt Count 179 K/MM3 (134-434) 11/21/18 05:25 MPV 7.2 fl (7.5-11.1) L 11/21/18 05:25 Absolute Neuts (auto) 3.1 K/mm3 (1.5-8.0) 11/21/18 05:25 Neutrophils % 81.5 % (42.8-82.8) 11/21/18 05:25 Lymphocytes % 8.9 % (8-40) D 11/21/18 05:25 Monocytes % 8.2 % (3.8-10.2) 11/21/18 05:25 Eosinophils % 1.0 % (0-4.5) 11/21/18 05:25 Basophils % 0.4 % (0-2.0) 11/21/18 05:25 Nucleated RBC % 0 % (0-0) 11/21/18 05:25 Sodium 129 mmol/L (136-145) L 11/21/18 05:25 Potassium 4.6 mmol/L (3.5-5.1) 11/21/18 05:25 Chloride 97 mmol/L (98-107) L 11/21/18 05:25 Carbon Dioxide 24 mmol/L (21-32) 11/21/18 05:25 Anion Gap 7 MMOL/L (8-16) L 11/21/18 05:25 BUN 38 mg/dL (7-18) H 11/21/18 05:25 Creatinine 1.7 mg/dL (0.55-1.3) H 11/21/18 05:25 Creat Clearance w eGFR 40.65 (>60) 11/21/18 05:25 POC Glucometer 190 UNITS (80-120) 11/21/18 11:42 Random Glucose 120 mg/dL (74-106) H 11/21/18 05:25 Serum Osmolality 271 mosm/kg (278-305) L 11/20/18 21:00 Lactic Acid 0.9 mmol/L (0.4-2.0) 11/20/18 08:30 Calcium 7.0 mg/dL (8.5-10.1) L 11/21/18 05:25 Phosphorus 3.1 mg/dL (2.5-4.9) 11/20/18 08:30 Magnesium 1.8 mg/dL (1.8-2.4) 11/20/18 08:30 Total Bilirubin 0.2 mg/dL (0.2-1) 11/21/18 05:25 AST 13 U/L (15-37) L 11/21/18 05:25 ALT 15 U/L (13-61) 11/21/18 05:25 Alkaline Phosphatase 118 U/L (45-117) H 11/21/18 05:25 Creatine Kinase 93 U/L (26-308) 11/20/18 08:30 Troponin I 0.07 ng/ml (0.00-0.05) H 11/20/18 08:30 Total Protein 5.8 g/dl (6.4-8.2) L 11/21/18 05:25 Albumin 2.9 g/dl (3.4-5.0) L 11/21/18 05:25 Lipase 242 U/L (73-393) 11/20/18 08:30 Current Medications Generic Name Dose Route Start Last Admin Trade Name Freq PRN Reason Stop Dose Admin Acetaminophen 650 mg 11/20/18 16:03 11/20/18 21:27 Tylenol - PO 650 mg Q6H PRN Administration FEVER Albuterol Sulfate 2 puff 11/20/18 16:03 Ventolin Hfa Inhaler - IH Q6H PRN WHEEZING Aspirin 81 mg 11/21/18 10:00 11/21/18 09:34 Ecotrin - PO 81 mg DAILY YAKOV Administration Buspirone HCl 15 mg 11/20/18 22:00 11/21/18 09:34 Buspar - PO 15 mg BID YAKOV Administration Heparin Sodium (Porcine) 5,000 unit 11/20/18 22:00 11/21/18 09:34 Heparin - SQ 5,000 unit BID YAKOV Administration Sodium Chloride 1,000 mls @ 100 mls/hr 11/20/18 18:24 11/21/18 06:01 Normal Saline - IV 100 mls/hr ASDIR YAKOV Administration Insulin Detemir 40 units 11/20/18 22:00 11/20/18 22:27 Levemir Vial SQ Not Given HS YAKOV Methadone HCl 70 mg 11/21/18 10:00 Dolophine - PO DAILY YAKOV Metoprolol Tartrate 25 mg 11/20/18 22:00 11/21/18 09:34 Lopressor - PO 25 mg BID YAKOV Administration Nifedipine 30 mg 11/21/18 10:00 11/21/18 09:34 Procardia Xl - PO 30 mg DAILY YAKOV Administration Fluticasone/Salmeterol 1 puff 11/20/18 22:00 11/21/18 09:39 Advair 100mcg/50mcg - IH 1 puff BID YAKOV Administration Constitutional: Yes: No Distress Eyes: Yes: Conjunctiva Clear HENT: Yes: Atraumatic Neck: Yes: Supple Cardiovascular: Yes: Regular Rate and Rhythm Respiratory: Yes: CTA Bilaterally Gastrointestinal Inspection: Yes: Distention ...Auscultate: Yes: Hypoactive Bowel Sounds ...Palpate: Yes: Soft, Other (nontender) ...Percussion: Yes: Tympanitic ...Rectal Exam: Yes: Guaiac Negative (not impacted, minimal stool obtained that is g negative, 2+ prostate) Extremities: Yes: Amputation (5th digit R foot) Edema: LLE: 1+, RLE: 1+ Neurological: Yes: Alert, Oriented Labs: CBC, BMP 11/21/18 05:25 11/21/18 05:25 INR, PTT INR 1.05 (0.83-1.09) 11/20/18 08:30 Imaging - Results Cat Scan: Report Reviewed (Macario Mullen Name: SHALON[facility] DEPARTMENT OF RADIOLOGY Phys: Cecilia Avila RESIDENT : [id number] Age: 63 Sex: M [facility] Acct: [id number] Loc: [address] Exam Date: 11/20/18 Status: KUNAL Perrin Unit Number: [id number] EXAM#: TYPE/EXAM: RESULT: [id number] CT/ABDOMEN PELVIS CT W/O CONTR Abdomen and pelvis CT without contrast Clinical information: abdominal distention, nausea, emesis; evaluate for obstruction Multiplanar imaging was performed. As requested no intravenous or enteric contrast was administered. No evidence of pneumoperitoneum, free intraperitoneal fluid or small bowel obstruction. Moderate to marked fecal retention is seen within the ascending colon and adjacent proximal left the transverse colon. No gross obstructing lesion is seen on the current study. If clinically indicated correlate with follow-up imaging. No pathologic gastric distention is seen. Small hiatal hernia. No obvious noncontrast small bowel pathology is identified. The liver, spleen, pancreas, gallbladder, adrenal glands and kidneys demonstrate no definite noncontrast pathology. There is no aortic aneurysm. No definite lymphadenopathy is noted on the basis of CT size criteria. No CT evidence of acute appendicitis or diverticulitis. There is no obvious soft tissue pelvic pathology. Note is again made of multiple osteolytic defects within the lower thoracic spine, lumbosacral spine and pelvis. Interval development of mild T10, moderate T11, minimal T12, and minimal to mild L5 vertebral body compression fractures which are probably pathologic. Impression: No definite CT findings of acute pathology are identified. Moderate to marked colonic fecal retention is noted as discussed above. In comparison to a prior abdomen/pelvic CT study of 07/20/2018 interval development of multilevel thoracolumbar vertebral body compression fractures is noted which are probably pathologic. Note is again made of multiple osteolytic lesions within the visualized skeleton. Reported By: Humphrey Hedrick MD 11/20/18 1158 [address] Technologist: Tl Falcon Transcribed Date/Time: 11/20/18 1158 Cake Washer: Hedrick,Humphrey K Printed Date/Time: By: Signed by: Humphrey Hedrick Signed on: 20-Nov-2018 11:59) Problem List - Problems (1) Constipation Assessment/Plan: Reynaldo bloating pain is related to constipation which appears to have multifactorial etiologies that include diabetic autonomic neuropathy, methadone , largely sedentary state and now chemotherapy. It has been refractory to miralax and the impaction appears to be high so I will start Golytely lavage. I have told him that he will ultimately need a colonoscopy to exlcude a colon cancer but this will be pursued as an outpatient ( I gave him out business card) . Code(s): K59.00 - CONSTIPATION, UNSPECIFIED Qualifiers: Constipation type: unspecified constipation type Qualified Code(s): K59.00 - Constipation, unspecified (2) Narcotic dependence Code(s): F11.20 - OPIOID DEPENDENCE, UNCOMPLICATED (3) Multiple myeloma Code(s): C90.00 - MULTIPLE MYELOMA NOT HAVING ACHIEVED REMISSION (4) Vertebral compression fracture Code(s): M48.50XA - COLLAPSED VERTEBRA, NEC, SITE UNSP, INIT (5) Diabetic neuropathy Code(s): E11.40 - TYPE 2 DIABETES MELLITUS WITH DIABETIC NEUROPATHY, UNSP (6) Diabetic retinopathy Code(s): E11.319 - TYPE 2 DIABETES W UNSP DIABETIC RTNOP W/O MACULAR EDEMA (7) History of heroin abuse Code(s): Z87.898 - PERSONAL HISTORY OF OTHER SPECIFIED CONDITIONS (8) History of cocaine abuse Code(s): Z87.898 - PERSONAL HISTORY OF OTHER SPECIFIED CONDITIONS (9) CKD (chronic kidney disease) Code(s): N18.9 - CHRONIC KIDNEY DISEASE, UNSPECIFIED (10) Neuropathy Code(s): G62.9 - POLYNEUROPATHY, UNSPECIFIED (11) Osteomyelitis Code(s): M86.9 - OSTEOMYELITIS, UNSPECIFIED Qualifiers: Osteomyelitis type: subacute Osteomyelitis location: foot (12) Type 2 diabetes mellitus with foot ulcer Code(s): E11.621 - TYPE 2 DIABETES MELLITUS WITH FOOT ULCER; L97.509 - NON- PRESSURE CHRONIC ULCER OTH PRT UNSP FOOT W UNSP SEVERITY Qualifiers: (13) Asthma Code(s): J45.909 - UNSPECIFIED ASTHMA, UNCOMPLICATED (14) Diabetes Code(s): E11.9 - TYPE 2 DIABETES MELLITUS WITHOUT COMPLICATIONS Qualifiers: Diabetes mellitus complication status: with neurologic complications Diabetes mellitus complication detail: with polyneuropathy (15) Hepatitis C Assessment/Plan: Cured by ? Reji. Will check viral DNA by PCR if the system allows and an AFP as it is not clear whether or not he had cirrhosis already. Code(s): B19.20 - UNSPECIFIED VIRAL HEPATITIS C WITHOUT HEPATIC COMA Assessment/Plan Impression: Multifactorial constipation: diabetic neuropathy, methadone and chemotherapy H/O Hepatitis C cured- CT reveals no liver masses Overdue for colon caner screening Plan: Golytely lavage HCV DNA by PCR, AFP.
[2018-11-21] MEDS ORDERED: PEG3350/SOD SULF,BICARB,CL/KCL 4,000 ML SOLN.RECON PO ONE (12:03)
--- NOTE | 2018-11-21 13:22 | PN ---
Progress Note, Physician Chief Complaint: patient seen and examined came in for constipation - Current Medication List Current Medications: Active Medications Acetaminophen (Tylenol -) 650 mg PO Q6H PRN PRN Reason: FEVER Last Admin: 11/20/18 21:27 Dose: 650 mg Albuterol Sulfate (Ventolin Hfa Inhaler -) 2 puff IH Q6H PRN PRN Reason: WHEEZING Aspirin (Ecotrin -) 81 mg PO DAILY [facility] Last Admin: 11/21/18 09:34 Dose: 81 mg Buspirone HCl (Buspar -) 15 mg PO BID [facility] Last Admin: 11/21/18 09:34 Dose: 15 mg Heparin Sodium (Porcine) (Heparin -) 5,000 unit SQ BID [facility] Last Admin: 11/21/18 09:34 Dose: 5,000 unit Sodium Chloride (Normal Saline -) 1,000 mls @ 100 mls/hr IV ASDIR [facility] Last Admin: 11/21/18 06:01 Dose: 100 mls/hr Insulin Detemir (Levemir Vial) 40 units SQ HS [facility] Last Admin: 11/20/18 22:27 Dose: Not Given Methadone HCl (Dolophine -) 70 mg PO DAILY [facility] Metoprolol Tartrate (Lopressor -) 25 mg PO BID [facility] Last Admin: 11/21/18 09:34 Dose: 25 mg Nifedipine (Procardia Xl -) 30 mg PO DAILY [facility] Last Admin: 11/21/18 09:34 Dose: 30 mg Oxycodone HCl (Roxicodone -) 10 mg PO Q6H PRN PRN Reason: PAIN LEVEL 7 - 10 Fluticasone/Salmeterol (Advair 100mcg/50mcg -) 1 puff IH BID [facility] Last Admin: 11/21/18 09:39 Dose: 1 puff - Objective Vital Signs: Vital Signs Temperature 98.0 F 11/21/18 10:00 Pulse Rate 84 11/21/18 10:00 Respiratory Rate 20 11/21/18 10:00 Blood Pressure 150/80 11/21/18 10:00 O2 Sat by Pulse Oximetry (%) 96 11/21/18 09:00 Constitutional: Yes: Calm Cardiovascular: Yes: Regular Rate and Rhythm, S1, S2 Respiratory: Yes: CTA Bilaterally Gastrointestinal: Yes: Distention Musculoskeletal: Yes: Other (right side costal tenderness) Labs: CBC, BMP 11/21/18 05:25 11/21/18 05:25 INR, PTT INR 1.05 (0.83-1.09) 11/20/18 08:30 Problem List - Problems (1) Constipation Assessment/Plan: appreicate gi consult golytely lavage not responding to miralax Code(s): K59.00 - CONSTIPATION, UNSPECIFIED Qualifiers: Constipation type: unspecified constipation type Qualified Code(s): K59.00 - Constipation, unspecified (2) Vertebral compression fracture Assessment/Plan: radiation oncology and JOSE MANUEL Code(s): M48.50XA - COLLAPSED VERTEBRA, NEC, SITE UNSP, INIT (3) Hyponatremia Assessment/Plan: ivf sodium from 125 to 129 Code(s): E87.1 - HYPO-OSMOLALITY AND HYPONATREMIA (4) Diabetes Assessment/Plan: levemir Code(s): E11.9 - TYPE 2 DIABETES MELLITUS WITHOUT COMPLICATIONS Qualifiers: Diabetes mellitus type: type 2 (5) Multiple myeloma Assessment/Plan: apreicate oncology eval Code(s): C90.00 - MULTIPLE MYELOMA NOT HAVING ACHIEVED REMISSION
[2018-11-21] MEDS: oxyCODONE HCL 5 MG TABLET PO PRN ×2 (13:43→21:51)
[2018-11-21] MEDS ORDERED: BISACODYL 5 MG TABLET.DR (FP) PO ONE (14:01)
[2018-11-21] MEDS: TIOTROPIUM BROMIDE 2.5 MCG (SPIRIVA) RESPIMAT INHALER IH SCH (14:30)
[2018-11-21] MEDS ORDERED: PT OWN MED DRAWER 7, Y5N ONE ×2 (14:47→21:57)
--- NOTE | 2018-11-21 15:19 | PN ---
Progress Note (short form) - Note Progress Note: NEUROSURGERY CONSULT DICTATED Chart reviewed Pt examined MRI's from -2018 reviewed h/o HTN, HLD, IDDM, Hep C, PVD/LE ulcers, opioid dependence now on methadone, and recent dx of multiple myeloma c/o nausea, vomiting, abdominal distension and discomfort, and constipation x3 days prior to admission. Pt was diagnosed with multiple myeloma last month and started chemo under care of Dr. Grady. Pt states he has had difficulty having BM; c/o mid-low back pain and R lower anterior rib margin pain; no incontinence, prox R LE weakness PE: AF, VSS General- obese, uncomfortable CN- intact; Motor- 5/5 except R IP 4/5 pain limited; Sensation- intact LT; DTR- hyporeflexia;Gait- stable, slightly hunched over Na 129, BUN 39, Cr 1.7 C spine MRI- B C3-4 and central C5-6 and C6-7 disc bulges with thecal sac impingement T spine MRI- subcate sup endplate fx T11; chronic T6,7,10 sup endplate compression fx LS spine MRI- R L1 inf body, L2 spinous process top and L3 B laminar and L3 small sup posterior vertebral lesions c/w MM Vertebral MM DM with peripheral neuropathy Renal insufficiency Chemo and RT per medical oncology and rad onc team No neurosurgical intervention indicated for vertebral MM at this time as there is no significant neurological element compression Add neurontin for pain control All questions answered
--- NOTE | 2018-11-21 16:08 | PN ---
Progress Note, Physician History of Present Illness: Pt seen and examined at bedside. He is awake and alert. He feels much better than he did yesterday. He has had a bowel movement. He is tolerating diet. - Current Medication List Current Medications: Active Medications Acetaminophen (Tylenol -) 650 mg PO Q6H PRN PRN Reason: FEVER Last Admin: 11/20/18 21:27 Dose: 650 mg Albuterol Sulfate (Ventolin Hfa Inhaler -) 2 puff IH Q6H PRN PRN Reason: WHEEZING Aspirin (Ecotrin -) 81 mg PO DAILY [facility] Last Admin: 11/21/18 09:34 Dose: 81 mg Bisacodyl (Dulcolax -) 10 mg PO ONCE ONE Stop: 11/21/18 14:02 Last Admin: 11/21/18 14:07 Dose: Not Given Buspirone HCl (Buspar -) 15 mg PO BID [facility] Last Admin: 11/21/18 09:34 Dose: 15 mg Gabapentin (Neurontin -) 100 mg PO TID [facility] Heparin Sodium (Porcine) (Heparin -) 5,000 unit SQ BID [facility] Last Admin: 11/21/18 09:34 Dose: 5,000 unit Sodium Chloride (Normal Saline -) 1,000 mls @ 100 mls/hr IV ASDIR [facility] Last Admin: 11/21/18 06:01 Dose: 100 mls/hr Insulin Aspart (Novolog Vial Sliding Scale -) 1 vial SQ [facility]; Protocol Insulin Detemir (Levemir Vial) 40 units SQ HS [facility] Last Admin: 11/20/18 22:27 Dose: Not Given Methadone HCl (Dolophine -) 70 mg PO DAILY [facility] Metoprolol Tartrate (Lopressor -) 25 mg PO BID [facility] Last Admin: 11/21/18 09:34 Dose: 25 mg Nifedipine (Procardia Xl -) 30 mg PO DAILY [facility] Last Admin: 11/21/18 09:34 Dose: 30 mg Oxycodone HCl (Roxicodone -) 10 mg PO Q6H PRN PRN Reason: PAIN LEVEL 7 - 10 Last Admin: 11/21/18 13:43 Dose: 10 mg Tiotropium [place] (Spiriva Respimat) 2 puff IH DAILY [facility] Last Admin: 11/21/18 14:30 Dose: 2 puff - Objective Vital Signs: Vital Signs Temperature 98.2 F 11/21/18 14:02 Pulse Rate 81 11/21/18 14:02 Respiratory Rate 20 11/21/18 14:02 Blood Pressure 136/65 11/21/18 14:02 O2 Sat by Pulse Oximetry (%) 96 11/21/18 09:00 Constitutional: Yes: Calm Eyes: Yes: Conjunctiva Clear HENT: Yes: Atraumatic Neck: Yes: Supple Cardiovascular: Yes: S1, S2 Respiratory: Yes: CTA Bilaterally Gastrointestinal: Yes: Soft Genitourinary: Yes: WNL Musculoskeletal: Yes: WNL Edema: No Neurological: Yes: Oriented Psychiatric: Yes: Oriented Labs: CBC, BMP 11/21/18 05:25 11/21/18 05:25 INR, PTT INR 1.05 (0.83-1.09) 11/20/18 08:30 Problem List - Problems (1) CKD (chronic kidney disease) Code(s): N18.9 - CHRONIC KIDNEY DISEASE, UNSPECIFIED (2) Constipation Code(s): K59.00 - CONSTIPATION, UNSPECIFIED Qualifiers: Constipation type: unspecified constipation type Qualified Code(s): K59.00 - Constipation, unspecified (3) Hyponatremia Code(s): E87.1 - HYPO-OSMOLALITY AND HYPONATREMIA Assessment/Plan Current Medications Generic Name Dose Route Start Last Admin Trade Name Freq PRN Reason Stop Dose Admin Acetaminophen 650 mg 11/20/18 16:03 11/20/18 21:27 Tylenol - PO 650 mg Q6H PRN Administration FEVER Albuterol Sulfate 2 puff 11/20/18 16:03 Ventolin Hfa Inhaler - IH Q6H PRN WHEEZING Aspirin 81 mg 11/21/18 10:00 11/21/18 09:34 Ecotrin - PO 81 mg DAILY [facility] Administration Bisacodyl 10 mg 11/21/18 14:01 11/21/18 14:07 Dulcolax - PO 11/21/18 14:02 Not Given ONCE ONE Buspirone HCl 15 mg 11/20/18 22:00 11/21/18 09:34 Buspar - PO 15 mg BID [facility] Administration Gabapentin 100 mg 11/21/18 16:00 Neurontin - PO TID [facility] Heparin Sodium (Porcine) 5,000 unit 11/20/18 22:00 11/21/18 09:34 Heparin - SQ 5,000 unit BID [facility] Administration Sodium Chloride 1,000 mls @ 100 mls/hr 11/20/18 18:24 11/21/18 06:01 Normal Saline - IV 100 mls/hr ASDIR [facility] Administration Insulin Aspart 1 vial 11/21/18 16:30 Novolog Vial Sliding Scale - SQ ACHS [facility] Protocol Insulin Detemir 40 units 11/20/18 22:00 11/20/18 22:27 Levemir Vial SQ Not Given HS [facility] Methadone HCl 70 mg 11/21/18 10:00 Dolophine - PO DAILY [facility] Metoprolol Tartrate 25 mg 11/20/18 22:00 11/21/18 09:34 Lopressor - PO 25 mg BID [facility] Administration Nifedipine 30 mg 11/21/18 10:00 11/21/18 09:34 Procardia Xl - PO 30 mg DAILY [facility] Administration Oxycodone HCl 10 mg 11/21/18 11:57 11/21/18 13:43 Roxicodone - PO 10 mg Q6H PRN Administration PAIN LEVEL 7 - 10 Tiotropium [place] 2 puff 11/21/18 13:30 11/21/18 14:30 Spiriva Respimat IH 2 puff DAILY [facility] Administration Impression 1. hyppnatremia 2. CKD 3. nausea and vomiting 4. htn 5. DM 6. 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 multiple myeloma 9. anemia 10. proteinuria Plan - cont with saline - repeat labs in am - sodium is improving - likely etiology of hyponatremia is dehydration and GI losses - myeloma can explain renal dysfunction - avoid metformin of renal function worsens Dr Cates
[2018-11-21] MEDS: GABAPENTIN 100 MG CAPSULE (FP) PO SCH ×2 (17:10→21:53)
[2018-11-21] MEDS: INSULIN SLIDING SCALE (NOVOLOG) 1 VIAL SQ SCH ×2 (17:12→22:04)
--- NOTE | 2018-11-21 20:27 | CONS ---
DATE OF CONSULTATION: 11/21/2018 CHIEF COMPLAINT: Mid and lower back pain with proximal right lower extremity weakness. HISTORY OF PRESENT ILLNESS: This patient is a 63-year-old right-handed male with history of hypertension, hypercholesterolemia, diabetes, hepatitis C on treatment, peripheral vascular disease with lower extremity ulcers, opiate dependence on methadone, and recent diagnosis of multiple myeloma with complaints of mid and lower back pain. He was admitted this admission for nausea, vomiting, and abdominal distention. He could not have a bowel movement. He denied urinary incontinence or bowel incontinence. He also had some right-sided lower anterior rib margin pain. He has been undergoing treatment with chemotherapy with multiple myeloma and started his radiation treatment last week. PAST MEDICAL HISTORY: Significant for hepatitis C, diabetes, opiate dependence, peripheral vascular disease, hypercholesterolemia, hypertension, multiple myeloma, COPD. CURRENT MEDICATIONS: Include subcutaneous heparin, Spiriva, BuSpar, Ventolin, Lopressor, Dulcolax, Procardia, NovoLog, Levemir, Ecotrin, methadone, and oxycodone. There is no known drug allergy. FAMILY HISTORY: Noncontributory. SOCIAL HISTORY: He drinks alcohol socially. He used to be on narcotics quite a bit and is now on methadone. He does not work. He is . He lives at home with his . REVIEW OF SYSTEMS: Otherwise negative for major constitutional, head, neck, cardiovascular, pulmonary, gastrointestinal, genitourinary, endocrinological, neurological, or psychological problems except for the above. PHYSICAL EXAMINATION: Vital Signs: temperature, 98.2, blood pressure 136/65, pulse rate 81, O2 saturation is 96% on 3 L. HEENT: Normocephalic, atraumatic. Anicteric. Neck: Supple. Coronary: Examination demonstrated regular rhythm. Lungs: Decreased breath sounds at basis. Abdomen: Benign but obese. Extremities: Show no signs of DVT, except for trace ankle edema bilaterally. Neurologic: She is awake and alert, oriented x3. Cranial nerves examination is intact II through XII. Motor examination shows 4+-5/5 strength to upper and lower extremities except proximal right lower extremity which is 4/5 limited by pain. Sensory examination is intact to light touch except for positive diminished lower extremity distal vibratory sensation. Deep tendon reflexes are hyporeflexive throughout. There is no pathological long tract sign. He is slightly hunched over when he ambulates. He uses IV pole to help him ambulate. LABORATORY EXAMINATION: Shows white blood cell count 3.7, hemoglobin 9.0, platelet count 179,000. INR is 1.05. Serum sodium is 129. Potassium is 4.6. BUN 30 and creatinine 1.7. Urinalysis shows 3+ protein and less than 1 WBC. MRI of the brain from July 2018 demonstrated no acute intracranial ischemia. There is mild periventricular small vessel disease. There is also white matter disease. There is no acute edema or bleed or mass effect. MRI of the cervical spine from October 28 of this year demonstrated multilevel cervical degenerative disk disease. There is bilateral disk bulge at C3-4, greater than C5-6, C6-7 with mild thecal sac impingement. There is no severe spinal stenosis at any level. There is no metastatic involvement of the vertebral bodies. MRI of the thoracic spine from October 28 also demonstrated subacute compression fracture superior endplate of T11 and inferior endplate of T7. There was superior endplate compression of T6, T7, and T10. There is no spinal cord impingement at any level. MRI of the lumbar spine from October 28, 2018, demonstrated L1 inferior vertebral body T2 hyperintensity. There is also an L2 spinous process lesion as well as a superior L3 vertebral body lesion. There is significant involvement of the bilateral lamina and spinous process of L3 going to the facet joints. There is mild facet hypertrophy at L4-5 with ligamentum thickening. IMPRESSION: 1. Vertebral column multiple myeloma with predominant involvement of the lumbar spine greater than thoracic spine. 2. Diabetes with peripheral vascular disease. 3. Hepatitis C. 4. Hypertension. 5. Hypercholesterolemia. 6. Renal insufficiency likely related to multiple myeloma and diabetes. RECOMMENDATIONS: Patient presents with increasing mid and lower back pain. He has some subjective right lower extremity weakness which is proximal. Examination relatively nonfocal except for proximal right lower extremity weakness. He also has some signs of diabetic peripheral neuropathy. His treatment should focus on that of multiple myeloma. No neurosurgical intervention is indicated for his mild vertebral compression fracture and his posterior elements and small vertebral body disease of the lumbar spine at this time. His main treatment should remain chemotherapy and radiotherapy unless there is significant associated neurological deficit from neurological element compression, which there is none per the MRI from less than 3 weeks ago. The above was discussed with the patient and his . All questions were answered from the patient. CHONG TOMLIN M.D. [place]/[id number] MTDD
[2018-11-21] MEDS: INSULIN (LEVEMIR) 100 UNITS/ML UNITS SQ SCH (22:03)
[2018-11-22] MEDS: SODIUM CHLORIDE 1,000 ML IV SCH (02:00)
[2018-11-22 06:30] LABS: BASO % 0.6 % (0-2.0); EOS % 1.4 % (0-4.5); HEMATOCRIT 25.1 % (35.4-49); HEMOGLOBIN 8.7 GM/dL (11.7-16.9); MCH 28.8 pg (25.7-33.7); MCHC 34.6 g/dl (32.0-35.9); MEAN CELL VOLUME 83.2 fl (80-96); MEAN PLT VOLUME 7.2 fl (7.5-11.1); MONO % 9.8 % (3.8-10.2); NEUT % 76.2 % (42.8-82.8); PLATELET COUNT 167 K/MM3 (134-434); RBC 3.02 M/mm3 (4.00-5.60); WHITE BLOOD COUNT 3.7 K/mm3 (4.0-10.0)
[2018-11-22] MEDS: GABAPENTIN 100 MG CAPSULE (FP) PO SCH ×3 (06:31→21:28)
[2018-11-22] MEDS: INSULIN SLIDING SCALE (NOVOLOG) 1 VIAL SQ SCH ×4 (06:36→21:32)
[2018-11-22] MEDS: oxyCODONE HCL 5 MG TABLET PO PRN ×2 (06:39→21:28)
[2018-11-22 06:50] LABS: ALBUMIN 2.8 g/dl (3.4-5.0); ALK PHOS 110 U/L (45-117); ANION GAP 8 MMOL/L (8-16); BILIRUBIN,TOTAL 0.2 mg/dL (0.2-1); BLOOD UREA NITROGEN 30 mg/dL (7-18); CHLORIDE 104 mmol/L (98-107); CO2 23 mmol/L (21-32); CREATININE 1.5 mg/dL (0.55-1.3); GLUCOSE,RANDOM 126 mg/dL (74-106); POTASSIUM 4.1 mmol/L (3.5-5.1); SGOT/AST 15 U/L (15-37); SGPT/ALT 14 U/L (13-61); SODIUM 135 mmol/L (136-145); TOT PROT 5.5 g/dl (6.4-8.2)
[2018-11-22 07:36] LABS: CALCIUM 6.6 mg/dL (8.5-10.1)
--- NOTE | 2018-11-22 08:38 | PN ---
Progress Note, Physician - Current Medication List Current Medications: Active Medications Acetaminophen (Tylenol -) 650 mg PO Q6H PRN PRN Reason: FEVER Last Admin: 11/20/18 21:27 Dose: 650 mg Albuterol Sulfate (Ventolin Hfa Inhaler -) 2 puff IH Q6H PRN PRN Reason: WHEEZING Aspirin (Ecotrin -) 81 mg PO DAILY [facility] Last Admin: 11/21/18 09:34 Dose: 81 mg Buspirone HCl (Buspar -) 15 mg PO BID [facility] Last Admin: 11/21/18 22:29 Dose: 15 mg Gabapentin (Neurontin -) 100 mg PO TID [facility] Last Admin: 11/22/18 06:31 Dose: 100 mg Heparin Sodium (Porcine) (Heparin -) 5,000 unit SQ BID [facility] Last Admin: 11/21/18 21:51 Dose: 5,000 unit Sodium Chloride (Normal Saline -) 1,000 mls @ 100 mls/hr IV ASDIR [facility] Last Admin: 11/22/18 02:00 Dose: 100 mls/hr Insulin Aspart (Novolog Vial Sliding Scale -) 1 vial SQ [facility]; Protocol Last Admin: 11/22/18 06:36 Dose: Not Given Insulin Detemir (Levemir Vial) 40 units SQ HS [facility] Last Admin: 11/21/18 22:03 Dose: 40 units Methadone HCl (Dolophine -) 70 mg PO DAILY [facility] Metoprolol Tartrate (Lopressor -) 25 mg PO BID [facility] Last Admin: 11/21/18 21:56 Dose: 25 mg Nifedipine (Procardia Xl -) 30 mg PO DAILY [facility] Last Admin: 11/21/18 09:34 Dose: 30 mg Oxycodone HCl (Roxicodone -) 10 mg PO Q6H PRN PRN Reason: PAIN LEVEL 7 - 10 Last Admin: 11/22/18 06:39 Dose: 10 mg Tiotropium [place] (Spiriva Respimat) 2 puff IH DAILY [facility] Last Admin: 11/21/18 14:30 Dose: 2 puff - Objective Vital Signs: Vital Signs Temperature 97.6 F 11/22/18 05:05 Pulse Rate 69 11/22/18 05:05 Respiratory Rate 20 11/22/18 05:05 Blood Pressure 146/74 11/22/18 05:05 O2 Sat by Pulse Oximetry (%) 96 11/21/18 20:59 Labs: CBC, BMP 11/22/18 05:30 11/22/18 05:30 INR, PTT INR 1.05 (0.83-1.09) 11/20/18 08:30 Problem List - Problems (1) CKD (chronic kidney disease) Assessment/Plan: renal on board Code(s): N18.9 - CHRONIC KIDNEY DISEASE, UNSPECIFIED (2) Diabetes Assessment/Plan: bgm Code(s): E11.9 - TYPE 2 DIABETES MELLITUS WITHOUT COMPLICATIONS Qualifiers: Diabetes mellitus type: type 2 (3) Hyponatremia Assessment/Plan: dc ivf monitor Code(s): E87.1 - HYPO-OSMOLALITY AND HYPONATREMIA (4) Narcotic dependence Assessment/Plan: methadone Code(s): F11.20 - OPIOID DEPENDENCE, UNCOMPLICATED (5) Vertebral compression fracture Assessment/Plan: radiation oncology and JOSE MANUEL Code(s): M48.50XA - COLLAPSED VERTEBRA, NEC, SITE UNSP, INIT (3) Hyponatremia Assessment/Plan: ivf sodium from 125 to 129 Code(s): E87.1 - HYPO-OSMOLALITY AND HYPONATREMIA (4) Diabetes Assessment/Plan: levemir Code(s): E11.9 - TYPE 2 DIABETES MELLITUS WITHOUT COMPLICATIONS Qualifiers: Diabetes mellitus type: type 2 (5) Multiple myeloma Assessment/Plan: apreicate oncology eval Code(s): C90.00 - MULTIPLE MYELOMA NOT HAVING ACHIEVED REMISSION Code(s): M48.50XA - COLLAPSED VERTEBRA, NEC, SITE UNSP, INIT (6) Edema Assessment/Plan: dc ivf duplex Code(s): R60.9 - EDEMA, UNSPECIFIED (7) Constipation Assessment/Plan: appreicate gi consult golytely lavage not responding to miralax Code(s): K59.00 - CONSTIPATION, UNSPECIFIED Qualifiers: Constipation type: unspecified constipation type Qualified Code(s): K59.00 - Constipation, unspecified
[2018-11-22] MEDS ORDERED: METHADONE HCL 40 MG DISPERSABLE TABLET PO ONE (10:15)
[2018-11-22] MEDS: METOPROLOL TARTRATE 25 MG TABLET (FP) PO SCH ×2 (10:20→21:28)
[2018-11-22] MEDS: ASPIRIN COATED 81 MG TABLET.EC PO SCH (10:20)
[2018-11-22] MEDS: HEPARIN NA (PORCINE) 5,000 UNITS/ML 1ML VIAL SQ SCH ×2 (10:21→21:28)
[2018-11-22] MEDS: TIOTROPIUM BROMIDE 2.5 MCG (SPIRIVA) RESPIMAT INHALER IH SCH (10:21)
[2018-11-22] MEDS: NIFEdipine E.R. 30 MG TABLET (FP) PO SCH (10:21)
[2018-11-22] MEDS ORDERED: PT OWN MED DRAWER 7, Y5N ONE (10:25)
[2018-11-22] MEDS: busPIRone HCL 5 MG TABLET PO SCH ×2 (11:11→21:27)
[2018-11-22] MEDS ORDERED: CALCIUM GLUCONATE 10% - 1,000 MG/10 ML VIAL IVPB ONE (13:06)
--- NOTE | 2018-11-22 14:37 | PN ---
Progress Note, Physician History of Present Illness: Pt seen and examined at bedside. He is awake and alert. He denies shortness of breath. - Current Medication List Current Medications: Active Medications Acetaminophen (Tylenol -) 650 mg PO Q6H PRN PRN Reason: FEVER Last Admin: 11/20/18 21:27 Dose: 650 mg Albuterol Sulfate (Ventolin Hfa Inhaler -) 2 puff IH Q6H PRN PRN Reason: WHEEZING Aspirin (Ecotrin -) 81 mg PO DAILY [facility] Last Admin: 11/22/18 10:20 Dose: 81 mg Buspirone HCl (Buspar -) 15 mg PO BID [facility] Last Admin: 11/22/18 11:11 Dose: 15 mg Gabapentin (Neurontin -) 100 mg PO TID [facility] Last Admin: 11/22/18 13:19 Dose: 100 mg Heparin Sodium (Porcine) (Heparin -) 5,000 unit SQ BID [facility] Last Admin: 11/22/18 10:21 Dose: 5,000 unit Insulin Aspart (Novolog Vial Sliding Scale -) 1 vial SQ [facility]; Protocol Last Admin: 11/22/18 13:13 Dose: 2 units Insulin Detemir (Levemir Vial) 40 units SQ HS [facility] Last Admin: 11/21/18 22:03 Dose: 40 units Methadone HCl (Dolophine -) 70 mg PO DAILY [facility] Metoprolol Tartrate (Lopressor -) 25 mg PO BID [facility] Last Admin: 11/22/18 10:20 Dose: 25 mg Nifedipine (Procardia Xl -) 30 mg PO DAILY [facility] Last Admin: 11/22/18 10:21 Dose: 30 mg Oxycodone HCl (Roxicodone -) 10 mg PO Q6H PRN PRN Reason: PAIN LEVEL 7 - 10 Last Admin: 11/22/18 06:39 Dose: 10 mg Tiotropium [place] (Spiriva Respimat) 2 puff IH DAILY [facility] Last Admin: 11/22/18 10:21 Dose: 2 puff - Objective Vital Signs: Vital Signs Temperature 97.6 F 11/22/18 05:05 Pulse Rate 69 11/22/18 05:05 Respiratory Rate 20 11/22/18 09:00 Blood Pressure 146/74 11/22/18 05:05 O2 Sat by Pulse Oximetry (%) 99 11/22/18 09:00 Constitutional: Yes: Calm Eyes: Yes: Conjunctiva Clear HENT: Yes: Atraumatic Neck: Yes: Supple Cardiovascular: Yes: S1, S2 Respiratory: Yes: CTA Bilaterally Gastrointestinal: Yes: Soft, Abdomen, Obese Genitourinary: Yes: WNL Musculoskeletal: Yes: WNL Extremities: Yes: WNL Edema: Yes Edema: LLE: Trace, RLE: Trace Neurological: Yes: Oriented Psychiatric: Yes: Oriented Labs: CBC, BMP 11/22/18 05:30 11/22/18 05:30 INR, PTT INR 1.05 (0.83-1.09) 11/20/18 08:30 Problem List - Problems (1) CKD (chronic kidney disease) Code(s): N18.9 - CHRONIC KIDNEY DISEASE, UNSPECIFIED (2) Constipation Code(s): K59.00 - CONSTIPATION, UNSPECIFIED Qualifiers: Constipation type: unspecified constipation type Qualified Code(s): K59.00 - Constipation, unspecified (3) Hyponatremia Code(s): E87.1 - HYPO-OSMOLALITY AND HYPONATREMIA Assessment/Plan Current Medications Generic Name Dose Route Start Last Admin Trade Name Freq PRN Reason Stop Dose Admin Acetaminophen 650 mg 11/20/18 16:03 11/20/18 21:27 Tylenol - PO 650 mg Q6H PRN Administration FEVER Albuterol Sulfate 2 puff 11/20/18 16:03 Ventolin Hfa Inhaler - IH Q6H PRN WHEEZING Aspirin 81 mg 11/21/18 10:00 11/22/18 10:20 Ecotrin - PO 81 mg DAILY [facility]AK[facility] Administration Buspirone HCl 15 mg 11/20/18 22:00 11/22/18 11:11 Buspar - PO 15 mg BID [facility] Administration Gabapentin 100 mg 11/21/18 16:00 11/22/18 13:19 Neurontin - PO 100 mg TID [facility] Administration Heparin Sodium (Porcine) 5,000 unit 11/20/18 22:00 11/22/18 10:21 Heparin - SQ 5,000 unit BID [facility] Administration Insulin Aspart 1 vial 11/21/18 16:30 11/22/18 13:13 Novolog Vial Sliding Scale - SQ 2 units ACHS [facility] Administration Protocol Insulin Detemir 40 units 11/20/18 22:00 11/21/18 22:03 Levemir Vial SQ 40 units HS [facility] Administration Methadone HCl 70 mg 11/21/18 10:00 Dolophine - PO DAILY [facility] Metoprolol Tartrate 25 mg 11/20/18 22:00 11/22/18 10:20 Lopressor - PO 25 mg BID [facility] Administration Nifedipine 30 mg 11/21/18 10:00 11/22/18 10:21 Procardia Xl - PO 30 mg DAILY [facility] Administration Oxycodone HCl 10 mg 11/21/18 11:57 11/22/18 06:39 Roxicodone - PO 10 mg Q6H PRN Administration PAIN LEVEL 7 - 10 Tiotropium [place] 2 puff 11/21/18 13:30 11/22/18 10:21 Spiriva Respimat IH 2 puff DAILY [facility]AK[facility] Administration Impression 1. hyppnatremia 2. CKD 3. nausea and vomiting 4. htn 5. DM 6. 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 multiple myeloma 9. anemia 10. proteinuria Plan - sodium is improving - decrease fluids - replace calcium - repeat labs in am - likely etiology of hyponatremia is dehydration and GI losses - myeloma can explain renal dysfunction Dr Cates
--- NOTE | 2018-11-22 17:04 | PN ---
Physical Exam: SUBJECTIVE: Patient seen and examined; no complaints; bp improving OBJECTIVE: Vital Signs Period Temp Pulse Resp BP Sys/Andre Pulse Ox Last 24 Hr 97.5 F-97.9 F 69-90 20-22 127-155/74-94 96-99 GENERAL: The patient is awake, alert, and fully oriented, in no acute distress. HEAD: Normal with no signs of trauma. EYES: PERRL, extraocular movements intact, sclera anicteric, conjunctiva clear. No ptosis. ENT: Ears normal, nares patent, oropharynx clear without exudates, moist mucous membranes. NECK: Trachea midline, full range of motion, supple. LUNGS: Breath sounds equal, clear to auscultation bilaterally, no wheezes, no crackles, no accessory muscle use. HEART: Regular rate and rhythm, S1, S2 without murmur, rub or gallop. ABDOMEN: Soft, nontender, nondistended, normoactive bowel sounds, no guarding, no rebound, no hepatosplenomegaly, no masses. EXTREMITIES: 2+ pulses, warm, well-perfused, no edema. NEUROLOGICAL: Cranial nerves II through XII grossly intact. Normal speech, gait not observed. PSYCH: Normal mood, normal affect. SKIN: Warm, dry, normal turgor, no rashes or lesions noted Laboratory Results - last 24 hr 11/21/18 11/21/18 11/21/18 09:15 17:12 21:50 WBC RBC Hgb Hct MCV MCH MCHC RDW Plt Count MPV Absolute Neuts (auto) Neutrophils % Lymphocytes % Monocytes % Eosinophils % Basophils % Nucleated RBC % Sodium Potassium Chloride Carbon Dioxide Anion Gap BUN Creatinine Creat Clearance w eGFR POC Glucometer 168 154 Random Glucose Calcium Total Bilirubin AST ALT Alkaline Phosphatase Total Protein Albumin Ur Random Potassium 16.0 L 11/22/18 11/22/18 11/22/18 05:30 05:30 06:36 WBC 3.7 L RBC 3.02 L Hgb 8.7 L Hct 25.1 L MCV 83.2 MCH 28.8 MCHC 34.6 RDW 17.0 H Plt Count 167 MPV 7.2 L Absolute Neuts (auto) 2.8 Neutrophils % 76.2 Lymphocytes % 12.0 D Monocytes % 9.8 Eosinophils % 1.4 Basophils % 0.6 Nucleated RBC % 0 Sodium 135 L Potassium 4.1 Chloride 104 Carbon Dioxide 23 Anion Gap 8 BUN 30 H Creatinine 1.5 H Creat Clearance w eGFR 46.97 POC Glucometer 126 Random Glucose 126 H Calcium 6.6 L* Total Bilirubin 0.2 AST 15 ALT 14 Alkaline Phosphatase 110 Total Protein 5.5 L Albumin 2.8 L Ur Random Potassium 11/22/18 11:10 WBC RBC Hgb Hct MCV MCH MCHC RDW Plt Count MPV Absolute Neuts (auto) Neutrophils % Lymphocytes % Monocytes % Eosinophils % Basophils % Nucleated RBC % Sodium Potassium Chloride Carbon Dioxide Anion Gap BUN Creatinine Creat Clearance w eGFR POC Glucometer 154 Random Glucose Calcium Total Bilirubin AST ALT Alkaline Phosphatase Total Protein Albumin Ur Random Potassium Active Medications Generic Name Dose Route Start Last Admin Trade Name Freq PRN Reason Stop Dose Admin Acetaminophen 650 mg 11/20/18 16:03 11/20/18 21:27 Tylenol - PO 650 mg Q6H PRN Administration FEVER Albuterol Sulfate 2 puff 11/20/18 16:03 Ventolin Hfa Inhaler - IH Q6H PRN WHEEZING Aspirin 81 mg 11/21/18 10:00 11/22/18 10:20 Ecotrin - PO 81 mg DAILY YAKOV Administration Buspirone HCl 15 mg 11/20/18 22:00 11/22/18 11:11 Buspar - PO 15 mg BID YAKOV Administration Gabapentin 100 mg 11/21/18 16:00 11/22/18 13:19 Neurontin - PO 100 mg TID YAKOV Administration Heparin Sodium (Porcine) 5,000 unit 11/20/18 22:00 11/22/18 10:21 Heparin - SQ 5,000 unit BID YAKOV Administration Insulin Aspart 1 vial 11/21/18 16:30 11/22/18 13:13 Novolog Vial Sliding Scale - SQ 2 units ACHS YAKOV Administration Protocol Insulin Detemir 40 units 11/20/18 22:00 11/21/18 22:03 Levemir Vial SQ 40 units HS YAKOV Administration Methadone HCl 70 mg 11/21/18 10:00 Dolophine - PO DAILY YAKOV Metoprolol Tartrate 25 mg 11/20/18 22:00 11/22/18 10:20 Lopressor - PO 25 mg BID YAKOV Administration Nifedipine 30 mg 11/21/18 10:00 11/22/18 10:21 Procardia Xl - PO 30 mg DAILY YAKOV Administration Oxycodone HCl 10 mg 11/21/18 11:57 11/22/18 06:39 Roxicodone - PO 10 mg Q6H PRN Administration PAIN LEVEL 7 - 10 Tiotropium [place] 2 puff 11/21/18 13:30 11/22/18 10:21 Spiriva Respimat IH 2 puff DAILY YAKOV Administration ASSESSMENT/PLAN: 63 yo M, with PMH of HTN, HLD, IDDM, Hep C (s/p Harvoni), PVD, past opioid use ( on methadone), and multiple myeloma , who is presenting with complaints of nausea, vomiting, abdominal distension and discomfort, and constipation worsened over the weekend. He received radiation to L spine and left acetabulum. MM with osteolytic lesions anemia CKD hyponatremia hypertension DM -neurosurgery eval; vertebral MM; nothing to do at this time; no significant neurological element compression -He has been on velcade/cytoxan/dexamethasone and started zometa monthly -anemia; currently all cell lines decreased; can be dilutional from IVF; chronic anemia due CKD; MM; Visit type - Emergency Visit Emergency Visit: Yes ED Registration Date: 11/20/18 Care time: The patient presented to the Emergency Department on the above date and was hospitalized for further evaluation of their emergent condition. - New Patient This patient is new to me today: Yes Date on this admission: 11/22/18 - Critical Care Critical Care patient: No - Discharge Referral Referred to [facility] Med P.C.: No
--- NOTE | 2018-11-22 17:16 | PN ---
Progress Note (short form) - Note Progress Note: NEUROSURGERY Condition unchanged mostly Sitting up in chair with L leg up c/o mid-low back pain and R lower anterior rib margin pain (pain better today); no incontinence, prox R LE weakness PE: AF, VSS General- obese, uncomfortable CN- intact; Motor- 5/5 except R IP 4/5 pain limited; Sensation- intact LT; DTR- hyporeflexia;Gait- stable, slightly hunched over Na 129, BUN 39, Cr 1.7 C spine MRI- B C3-4 and central C5-6 and C6-7 disc bulges with thecal sac impingement T spine MRI- subcate sup endplate fx T11; chronic T6,7,10 sup endplate compression fx LS spine MRI- R L1 inf body, L2 spinous process top and L3 B laminar and L3 small sup posterior vertebral lesions c/w MM Vertebral MM DM with peripheral neuropathy Renal insufficiency Chemo and RT per medical oncology and rad onc team for systemic dz control and RT tx for osseous involvement No neurosurgical intervention indicated for vertebral MM at this time as there is no significant neurological element compression On neurontin for pain control, can titrate upwards slightly as needed
--- NOTE | 2018-11-22 18:46 | PN ---
GI Progress Note Subjective: GI NOte: Has finally begun to have BMs after drinking about 1/2 of the Golytely. Feels less bloated. No bleeding - Objective Vital Signs: Vital Signs Temperature 97 F L 11/22/18 18:20 Pulse Rate 89 11/22/18 18:20 Respiratory Rate 18 11/22/18 18:20 Blood Pressure 129/69 11/22/18 18:20 O2 Sat by Pulse Oximetry (%) 99 11/22/18 09:00 Laboratory Tests 11/20/18 11/21/18 11/22/18 08:30 05:25 05:30 WBC 3.7 L Hgb 9.9 L 9.0 L 8.7 L Constitutional: Calm ...Auscultate: Yes: Normoactive Bowel Sounds ...Palpate: Yes: Soft, Other (nontender) Labs: CBC, BMP 11/22/18 05:30 11/22/18 05:30 INR, PTT INR 1.05 (0.83-1.09) 11/20/18 08:30 Assessment/Plan Impression: Multifactorial constipation: diabetic neuropathy, methadone and chemotherapy H/O Hepatitis C cured- CT reveals no liver masses Overdue for colon caner screening Plan: Golytely lavage still in progress, Encouraged to complete the 4 liters over whatever period of time he finds comfortable with Await HCV DNA by PCR, AFP. Problem List - Problems (1) Constipation Code(s): K59.00 - CONSTIPATION, UNSPECIFIED Qualifiers: Constipation type: unspecified constipation type Qualified Code(s): K59.00 - Constipation, unspecified (2) Narcotic dependence Code(s): F11.20 - OPIOID DEPENDENCE, UNCOMPLICATED (3) Multiple myeloma Code(s): C90.00 - MULTIPLE MYELOMA NOT HAVING ACHIEVED REMISSION (4) Vertebral compression fracture Code(s): M48.50XA - COLLAPSED VERTEBRA, NEC, SITE UNSP, INIT (5) Diabetic neuropathy Code(s): E11.40 - TYPE 2 DIABETES MELLITUS WITH DIABETIC NEUROPATHY, UNSP (6) Diabetic retinopathy Code(s): E11.319 - TYPE 2 DIABETES W UNSP DIABETIC RTNOP W/O MACULAR EDEMA (7) History of heroin abuse Code(s): Z87.898 - PERSONAL HISTORY OF OTHER SPECIFIED CONDITIONS (8) History of cocaine abuse Code(s): Z87.898 - PERSONAL HISTORY OF OTHER SPECIFIED CONDITIONS (9) CKD (chronic kidney disease) Code(s): N18.9 - CHRONIC KIDNEY DISEASE, UNSPECIFIED (10) Neuropathy Code(s): G62.9 - POLYNEUROPATHY, UNSPECIFIED (11) Osteomyelitis Code(s): M86.9 - OSTEOMYELITIS, UNSPECIFIED Qualifiers: Osteomyelitis type: subacute Osteomyelitis location: foot (12) Type 2 diabetes mellitus with foot ulcer Code(s): E11.621 - TYPE 2 DIABETES MELLITUS WITH FOOT ULCER; L97.509 - NON- PRESSURE CHRONIC ULCER OTH PRT UNSP FOOT W UNSP SEVERITY Qualifiers: (13) Asthma Code(s): J45.909 - UNSPECIFIED ASTHMA, UNCOMPLICATED (14) Diabetes Code(s): E11.9 - TYPE 2 DIABETES MELLITUS WITHOUT COMPLICATIONS Qualifiers: Diabetes mellitus complication status: with neurologic complications Diabetes mellitus complication detail: with polyneuropathy (15) Hepatitis C Code(s): B19.20 - UNSPECIFIED VIRAL HEPATITIS C WITHOUT HEPATIC COMA
[2018-11-22] MEDS: INSULIN (LEVEMIR) 100 UNITS/ML UNITS SQ SCH (21:31)
[2018-11-23 04:18] LABS: HBSAG SCREEN Negative (Negative); HEP B CORE AB, TOT Positive (Negative)
[2018-11-23] MEDS: INSULIN SLIDING SCALE (NOVOLOG) 1 VIAL SQ SCH ×4 (06:29→21:47)
[2018-11-23] MEDS: GABAPENTIN 100 MG CAPSULE (FP) PO SCH ×3 (06:29→21:46)
[2018-11-23] MEDS: METOPROLOL TARTRATE 25 MG TABLET (FP) PO SCH ×2 (10:15→21:46)
[2018-11-23] MEDS: ASPIRIN COATED 81 MG TABLET.EC PO SCH (10:15)
[2018-11-23] MEDS: NIFEdipine E.R. 30 MG TABLET (FP) PO SCH (10:15)
[2018-11-23] MEDS: busPIRone HCL 5 MG TABLET PO SCH ×2 (10:15→21:37)
[2018-11-23] MEDS: HEPARIN NA (PORCINE) 5,000 UNITS/ML 1ML VIAL SQ SCH ×2 (10:15→21:46)
[2018-11-23] MEDS: TIOTROPIUM BROMIDE 2.5 MCG (SPIRIVA) RESPIMAT INHALER IH SCH (10:16)
[2018-11-23] MEDS: METHADONE HCL 40 MG DISPERSABLE TABLET PO SCH (10:56)
--- NOTE | 2018-11-23 11:18 | PN ---
Progress Note (short form) - Note Progress Note: Radiation Oncology Pt seen and examined, chart/films reviewed, office notes placed on the chart. Mr. Dillon is known to me with h/o multiple myeloma having completed palliative RT (25Gy on 10/20/18) to the left acetabulum and L2-L4 spine where there was epidural extension. He had a bout of constipation during RT that resolved with an increase in laxative use. Unfortunately, he is now admitted for recurrent severe constipation. GI note seen and appreciated. Mr. Dillon feels that the abdominal distension continues to improve with the bowel movements on aggressive laxative therapy. Of note, he had increasing lower back pain radiating to the right lower chest wall/ribs. CT scan and recent MRI C-T-L spine reviewed, multiple interval pathologic vertebral compression fractures most severe at T11>T10 correlating with the region of his current back pain. No evidence of epidural tumor. His pain has improved with decreased abdominal distension. He is ambulatory without numbness, leg weakness, urinary incontinence or retention. Neurologic exam is intact. Dr. Wolfe does not feel he is a surgical candidate at this time. I recommended that he follow up with me upon discharge for reevaluation of his pain and consideration of palliative tx to the fractures. He understood and agrees. Would cont current medical/GI/pain management.
--- NOTE | 2018-11-23 12:10 | PN ---
Progress Note, Physician - Current Medication List Current Medications: Active Medications Acetaminophen (Tylenol -) 650 mg PO Q6H PRN PRN Reason: FEVER Last Admin: 11/20/18 21:27 Dose: 650 mg Albuterol Sulfate (Ventolin Hfa Inhaler -) 2 puff IH Q6H PRN PRN Reason: WHEEZING Aspirin (Ecotrin -) 81 mg PO DAILY [facility] Last Admin: 11/23/18 10:15 Dose: 81 mg Buspirone HCl (Buspar -) 15 mg PO BID [facility] Last Admin: 11/23/18 10:15 Dose: 15 mg Gabapentin (Neurontin -) 100 mg PO TID [facility] Last Admin: 11/23/18 06:29 Dose: 100 mg Heparin Sodium (Porcine) (Heparin -) 5,000 unit SQ BID [facility] Last Admin: 11/23/18 10:15 Dose: 5,000 unit Insulin Aspart (Novolog Vial Sliding Scale -) 1 vial SQ [facility]; Protocol Last Admin: 11/23/18 11:12 Dose: Not Given Insulin Detemir (Levemir Vial) 40 units SQ HS [facility] Last Admin: 11/22/18 21:31 Dose: 30 units Methadone HCl (Dolophine -) 80 mg PO DAILY@0600 [facility] Last Admin: 11/23/18 10:56 Dose: 80 mg Metoprolol Tartrate (Lopressor -) 25 mg PO BID [facility] Last Admin: 11/23/18 10:15 Dose: 25 mg Nifedipine (Procardia Xl -) 30 mg PO DAILY [facility] Last Admin: 11/23/18 10:15 Dose: 30 mg Oxycodone HCl (Roxicodone -) 10 mg PO Q6H PRN PRN Reason: PAIN LEVEL 7 - 10 Last Admin: 11/22/18 21:28 Dose: 10 mg Tiotropium [place] (Spiriva Respimat) 2 puff IH DAILY [facility] Last Admin: 11/23/18 10:16 Dose: 2 puff - Objective Vital Signs: Vital Signs Temperature 98.1 F 11/23/18 06:00 Pulse Rate 70 11/23/18 06:00 Respiratory Rate 18 11/23/18 06:00 Blood Pressure 144/75 11/23/18 06:00 O2 Sat by Pulse Oximetry (%) 98 11/22/18 21:00 Cardiovascular: Yes: S1, S2 Respiratory: Yes: Regular, CTA Bilaterally Gastrointestinal: Yes: Normal Bowel Sounds, Soft Labs: CBC, BMP 11/22/18 05:30 11/22/18 05:30 INR, PTT INR 1.05 (0.83-1.09) 11/20/18 08:30 Problem List - Problems (1) CKD (chronic kidney disease) Assessment/Plan: renal on board Code(s): N18.9 - CHRONIC KIDNEY DISEASE, UNSPECIFIED (2) Diabetes Assessment/Plan: bgm Code(s): E11.9 - TYPE 2 DIABETES MELLITUS WITHOUT COMPLICATIONS Qualifiers: Diabetes mellitus type: type 2 (3) Hyponatremia Assessment/Plan: dc ivf monitor Code(s): E87.1 - HYPO-OSMOLALITY AND HYPONATREMIA (4) Narcotic dependence Assessment/Plan: methadone Code(s): F11.20 - OPIOID DEPENDENCE, UNCOMPLICATED (5) Vertebral compression fracture Assessment/Plan: radiation oncology and JOSE MANUEL Code(s): M48.50XA - COLLAPSED VERTEBRA, NEC, SITE UNSP, INIT (3) Hyponatremia Assessment/Plan: ivf sodium from 125 to 129 Code(s): E87.1 - HYPO-OSMOLALITY AND HYPONATREMIA (4) Diabetes Assessment/Plan: levemir Code(s): E11.9 - TYPE 2 DIABETES MELLITUS WITHOUT COMPLICATIONS Qualifiers: Diabetes mellitus type: type 2 (5) Multiple myeloma Assessment/Plan: apreicate oncology eval Code(s): C90.00 - MULTIPLE MYELOMA NOT HAVING ACHIEVED REMISSION Code(s): M48.50XA - COLLAPSED VERTEBRA, NEC, SITE UNSP, INIT (6) Edema Assessment/Plan: dc ivf duplex Code(s): R60.9 - EDEMA, UNSPECIFIED (7) Constipation Assessment/Plan: appreicate gi consult golytely lavage not responding to miralax Code(s): K59.00 - CONSTIPATION, UNSPECIFIED Qualifiers: Constipation type: unspecified constipation type Qualified Code(s): K59.00 - Constipation, unspecified
--- NOTE | 2018-11-23 12:47 | PN ---
Progress Note, Physician History of Present Illness: Pt seen and examined at bedside. He is awake and alert. He is tolerating diet. - Current Medication List Current Medications: Active Medications Acetaminophen (Tylenol -) 650 mg PO Q6H PRN PRN Reason: FEVER Last Admin: 11/20/18 21:27 Dose: 650 mg Albuterol Sulfate (Ventolin Hfa Inhaler -) 2 puff IH Q6H PRN PRN Reason: WHEEZING Aspirin (Ecotrin -) 81 mg PO DAILY [facility] Last Admin: 11/23/18 10:15 Dose: 81 mg Buspirone HCl (Buspar -) 15 mg PO BID [facility] Last Admin: 11/23/18 10:15 Dose: 15 mg Gabapentin (Neurontin -) 100 mg PO TID [facility] Last Admin: 11/23/18 06:29 Dose: 100 mg Heparin Sodium (Porcine) (Heparin -) 5,000 unit SQ BID [facility] Last Admin: 11/23/18 10:15 Dose: 5,000 unit Insulin Aspart (Novolog Vial Sliding Scale -) 1 vial SQ [facility]; Protocol Last Admin: 11/23/18 11:12 Dose: Not Given Insulin Detemir (Levemir Vial) 40 units SQ [facility] Last Admin: 11/22/18 21:31 Dose: 30 units Methadone HCl (Dolophine -) 80 mg PO DAILY@0600 [facility] Last Admin: 11/23/18 10:56 Dose: 80 mg Metoprolol Tartrate (Lopressor -) 25 mg PO BID [facility] Last Admin: 11/23/18 10:15 Dose: 25 mg Nifedipine (Procardia Xl -) 30 mg PO DAILY [facility] Last Admin: 11/23/18 10:15 Dose: 30 mg Oxycodone HCl (Roxicodone -) 10 mg PO Q6H PRN PRN Reason: PAIN LEVEL 7 - 10 Last Admin: 11/22/18 21:28 Dose: 10 mg Tiotropium [place] (Spiriva Respimat) 2 puff IH DAILY [facility] Last Admin: 11/23/18 10:16 Dose: 2 puff - Objective Vital Signs: Vital Signs Temperature 98.1 F 11/23/18 06:00 Pulse Rate 70 11/23/18 06:00 Respiratory Rate 18 11/23/18 06:00 Blood Pressure 144/75 11/23/18 06:00 O2 Sat by Pulse Oximetry (%) 100 11/23/18 09:00 Constitutional: Yes: Calm Eyes: Yes: Conjunctiva Clear HENT: Yes: Atraumatic Neck: Yes: Supple Cardiovascular: Yes: S1, S2 Respiratory: Yes: CTA Bilaterally Gastrointestinal: Yes: Normal Bowel Sounds, Soft Musculoskeletal: Yes: WNL Edema: Yes Edema: LLE: Trace, RLE: Trace Neurological: Yes: Oriented Psychiatric: Yes: Oriented Labs: CBC, BMP 11/22/18 05:30 11/22/18 05:30 INR, PTT INR 1.05 (0.83-1.09) 11/20/18 08:30 Problem List - Problems (1) CKD (chronic kidney disease) Code(s): N18.9 - CHRONIC KIDNEY DISEASE, UNSPECIFIED (2) Constipation Code(s): K59.00 - CONSTIPATION, UNSPECIFIED Qualifiers: Constipation type: unspecified constipation type Qualified Code(s): K59.00 - Constipation, unspecified (3) Hyponatremia Code(s): E87.1 - HYPO-OSMOLALITY AND HYPONATREMIA Assessment/Plan Current Medications Generic Name Dose Route Start Last Admin Trade Name Freq PRN Reason Stop Dose Admin Acetaminophen 650 mg 11/20/18 16:03 11/20/18 21:27 Tylenol - PO 650 mg Q6H PRN Administration FEVER Albuterol Sulfate 2 puff 11/20/18 16:03 Ventolin Hfa Inhaler - IH Q6H PRN WHEEZING Aspirin 81 mg 11/21/18 10:00 11/23/18 10:15 Ecotrin - PO 81 mg DAILY YAKOV Administration Buspirone HCl 15 mg 11/20/18 22:00 11/23/18 10:15 Buspar - PO 15 mg BID YAKOV Administration Gabapentin 100 mg 11/21/18 16:00 11/23/18 06:29 Neurontin - PO 100 mg TID YAKOV Administration Heparin Sodium (Porcine) 5,000 unit 11/20/18 22:00 11/23/18 10:15 Heparin - SQ 5,000 unit BID YAKOV Administration Insulin Aspart 1 vial 11/21/18 16:30 11/23/18 11:12 Novolog Vial Sliding Scale - SQ Not Given ACHS [facility] Protocol Insulin Detemir 40 units 11/20/18 22:00 11/22/18 21:31 Levemir Vial SQ 30 units HS YAKOV Administration Methadone HCl 80 mg 11/23/18 10:45 11/23/18 10:56 Dolophine - PO 80 mg DAILY@0600 YAKOV Administration Metoprolol Tartrate 25 mg 11/20/18 22:00 11/23/18 10:15 Lopressor - PO 25 mg BID YAKOV Administration Nifedipine 30 mg 11/21/18 10:00 11/23/18 10:15 Procardia Xl - PO 30 mg DAILY YAKOV Administration Oxycodone HCl 10 mg 11/21/18 11:57 11/22/18 21:28 Roxicodone - PO 10 mg Q6H PRN Administration PAIN LEVEL 7 - 10 Tiotropium [place] 2 puff 11/21/18 13:30 11/23/18 10:16 Spiriva Respimat IH 2 puff DAILY YAKOV Administration Impression 1. hyppnatremia 2. CKD 3. nausea and vomiting 4. htn 5. DM 6. 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 multiple myeloma 9. anemia 10. proteinuria Plan - pt appears stable off of fluids - he is tolerating diet - will order cmp - he is having bowel movements - likely etiology of hyponatremia is dehydration and GI losses - myeloma can explain renal dysfunction Dr Cates
[2018-11-23] MEDS: ACETAMINOPHEN 325 MG TABLET (FP) PO PRN (15:58)
--- NOTE | 2018-11-23 16:40 | CONS ---
DATE OF CONSULTATION: 11/23/2018 REFERRING PHYSICIAN: Ysabel López MD REASON FOR CONSULTATION: Pathologic vertebral compression fractures associated with back pain. HISTORY OF PRESENT ILLNESS: The patient is a 63-year-old gentleman known to me who was recently diagnosed with multiple myeloma associated with diffuse lytic bony lesions in the spine associated with epidural extension compressing the thecal sac at L3 and a destructive left superior pubic ramus/anterior acetabulum mass that were both treated with palliative radiation therapy (25 Gy) completed on October 20, 2018. He had resolution of his back pain by the end of treatment. He had an episode of constipation with abdominal distention during the radiation therapy that improved with an aggressive laxative regimen. He has started systemic therapy with oncologist. He is admitted for recurrent severe constipation with the abdominal distention. He is followed by the Gastroenterology service and has begun aggressive bowel regimen with improvement of the abdominal distention. Of note, he had increasing pain in the lower back radiating to the right lower chest wall/ribs. CT scans of the abdomen and pelvis demonstrated interval development of multilevel thoracolumbar vertebral body compression fractures probably pathologic. MRI spine in October demonstrated acute compression fractures at T11 and T7 and old compression fractures at T6, T7, and T10 without cord compression or epidural mass. His pain has improved with decreased abdominal distention. He is now moving his bowels on the laxative. He denies numbness, tingling, lower extremity weakness, urinary incontinence, or retention. PAST MEDICAL HISTORY: Prior radiotherapy history as noted, diabetes mellitus type 2, hepatitis C in remission, hypertension. PAST SURGICAL HISTORY: Right fifth toe amputation. ALLERGIES: No known drug allergies. CURRENT MEDICATIONS: Heparin subcutaneous, Neurontin, Spiriva, BuSpar, metoprolol, nifedipine, insulin sliding scale, baby aspirin, methadone 80 mg daily. SOCIAL HISTORY: On methadone. Former smoker. No recent alcohol use. REVIEW OF SYSTEMS: Back/right chest wall rib pain as noted. Constipation. PHYSICAL EXAMINATION: General: A well-appearing well-developed male in no acute distress seated in the chair having breakfast without difficulty. Vital Signs: Temperature 98.1, blood pressure 144/75, pulse 70, respiratory rate 18. HEENT: Normocephalic, atraumatic. Moist mucous membranes. Clear oral cavity. Neck: No palpable mass or adenopathy. Chest: No axillary adenopathy. Lungs: Clear. Musculoskeletal: Mild tenderness on palpation of the right mid-axillary rib and right paraspinal [id number] thoracic region. No paraspinal or chest wall mass. Abdomen: Moderately distended with mild tenderness on deep palpation. Hypoactive bowel sounds. Neurologic: Grossly nonfocal with intact sensation to light touch. PHYSIOLOGIC DATA: See HPI. PATHOLOGIC DATA: See HPI. LABORATORY DATA: WBC 3.7, hemoglobin 8.7, platelet count 167,000. BUN 30, creatinine 1.5. Electrolytes within normal limits. Calcium 6.6. Albumin 2.8. Liver function test within normal limits. IMPRESSION: A 63-year-old gentleman with multiple myeloma status post palliative radiation therapy to the L2-L4 spine and left acetabulum with improving constipation and pain on current gastrointestinal regimen. He has multiple vertebral compression fractures most likely pathologic secondary to the myeloma. If his back pain persists and remains poorly controlled he would be a candidate for additional radiation treatment to the symptomatic areas of the spine. PLAN: He was asked to follow up with me upon discharge for reevaluation of his pain and to consider palliative treatment. He understood and agreed. Would continue current medical, GI and pain management. SHAHBAZ RICHTER M.D. NELIA/[id number] MTDD
--- NOTE | 2018-11-23 18:11 | PN ---
Physical Exam: SUBJECTIVE: Patient seen and examined; +BM ; abdominal distention and pain has improved OBJECTIVE: Vital Signs Period Temp Pulse Resp BP Sys/Andre Pulse Ox Last 24 Hr 97 F-99.2 F 70-89 18-20 129-158/66-88 98-100 GENERAL: The patient is awake, alert, and fully oriented, in no acute distress. LUNGS: Breath sounds equal, clear to auscultation bilaterally, no wheezes, no crackles, no accessory muscle use. HEART: Regular rate and rhythm, S1, S2 without murmur, rub or gallop. ABDOMEN: Soft, nontender, nondistended, normoactive bowel sounds, no guarding, no rebound, no hepatosplenomegaly, no masses. EXTREMITIES: 2+ pulses, warm, well-perfused, no edema. NEUROLOGICAL: Cranial nerves II through XII grossly intact. Normal speech, gait not observed. PSYCH: Normal mood, normal affect. SKIN: Warm, dry, normal turgor, no rashes or lesions noted Laboratory Results - last 24 hr 11/22/18 11/22/18 11/23/18 05:30 21:26 05:20 POC Glucometer 165 83 Hepatitis A Ab Total Negative Hep Bs Antigen Negative Hep Bs Antibody Reactive Hep B Core Total Ab Positive H 11/23/18 11/23/18 11:08 17:19 POC Glucometer 139 117 Hepatitis A Ab Total Hep Bs Antigen Hep Bs Antibody Hep B Core Total Ab Active Medications Generic Name Dose Route Start Last Admin Trade Name Freq PRN Reason Stop Dose Admin Acetaminophen 650 mg 11/20/18 16:03 11/23/18 15:58 Tylenol - PO 650 mg Q6H PRN Administration FEVER Albuterol Sulfate 2 puff 11/20/18 16:03 Ventolin Hfa Inhaler - IH Q6H PRN WHEEZING Aspirin 81 mg 11/21/18 10:00 11/23/18 10:15 Ecotrin - PO 81 mg DAILY YAKOV Administration Buspirone HCl 15 mg 11/20/18 22:00 11/23/18 10:15 Buspar - PO 15 mg BID YAKOV Administration Gabapentin 100 mg 11/21/18 16:00 11/23/18 14:11 Neurontin - PO 100 mg TID YAKOV Administration Heparin Sodium (Porcine) 5,000 unit 11/20/18 22:00 11/23/18 10:15 Heparin - SQ 5,000 unit BID YAKOV Administration Insulin Aspart 1 vial 11/21/18 16:30 11/23/18 17:21 Novolog Vial Sliding Scale - SQ Not Given [facility] Protocol Insulin Detemir 40 units 11/20/18 22:00 11/22/18 21:31 Levemir Vial SQ 30 units HS YAKOV Administration Methadone HCl 80 mg 11/23/18 10:45 11/23/18 10:56 Dolophine - PO 80 mg DAILY@0600 YAKOV Administration Metoprolol Tartrate 25 mg 11/20/18 22:00 11/23/18 10:15 Lopressor - PO 25 mg BID YAKOV Administration Nifedipine 30 mg 11/21/18 10:00 11/23/18 10:15 Procardia Xl - PO 30 mg DAILY YAKOV Administration Oxycodone HCl 10 mg 11/21/18 11:57 11/22/18 21:28 Roxicodone - PO 10 mg Q6H PRN Administration PAIN LEVEL 7 - 10 Tiotropium [place] 2 puff 11/21/18 13:30 11/23/18 10:16 Spiriva Respimat IH 2 puff DAILY YAKOV Administration ASSESSMENT/PLAN: 63 yo M, with PMH of HTN, HLD, IDDM, Hep C (s/p Reji), PVD, past opioid use ( on methadone), and multiple myeloma , who is presenting with complaints of nausea, vomiting, abdominal distension and discomfort, and constipation worsened over the weekend. He received radiation to L spine and left acetabulum. MM with osteolytic lesions anemia CKD hyponatremia hypertension DM -MRI notedneurosurgery eval; vertebral MM; nothing to do at this time; no significant neurological element compression -He has been on velcade/cytoxan/dexamethasone and started zometa monthly -anemia; currently all cell lines decreased; can be dilutional from IVF; chronic anemia due CKD; MM; -seen by rad/onc; can f/u in office Visit type - Emergency Visit Emergency Visit: Yes ED Registration Date: 11/20/18 Care time: The patient presented to the Emergency Department on the above date and was hospitalized for further evaluation of their emergent condition. - New Patient This patient is new to me today: No - Critical Care Critical Care patient: No
[2018-11-23] MEDS: INSULIN (LEVEMIR) 100 UNITS/ML UNITS SQ SCH (21:47)
[2018-11-23] MEDS: oxyCODONE HCL 5 MG TABLET PO PRN (21:48)
[2018-11-24] MEDS: ACETAMINOPHEN 325 MG TABLET (FP) PO PRN ×3 (01:29→21:11)
[2018-11-24] MEDS: METHADONE HCL 40 MG DISPERSABLE TABLET PO SCH (05:44)
[2018-11-24] MEDS: GABAPENTIN 100 MG CAPSULE (FP) PO SCH ×3 (05:45→21:12)
[2018-11-24] MEDS: INSULIN SLIDING SCALE (NOVOLOG) 1 VIAL SQ SCH ×4 (06:08→22:34)
[2018-11-24 08:01] LABS: ALBUMIN 2.9 g/dl (3.4-5.0); ALK PHOS 107 U/L (45-117); ANION GAP 8 MMOL/L (8-16); BILIRUBIN,TOTAL 0.2 mg/dL (0.2-1); BLOOD UREA NITROGEN 30 mg/dL (7-18); CHLORIDE 102 mmol/L (98-107); CO2 22 mmol/L (21-32); CREATININE 1.7 mg/dL (0.55-1.3); GLUCOSE,RANDOM 110 mg/dL (74-106); POTASSIUM 4.6 mmol/L (3.5-5.1); SGOT/AST 22 U/L (15-37); SGPT/ALT 19 U/L (13-61); SODIUM 133 mmol/L (136-145); TOT PROT 5.9 g/dl (6.4-8.2)
[2018-11-24 08:16] LABS: CALCIUM 6.4 mg/dL (8.5-10.1)
[2018-11-24] MEDS: METOPROLOL TARTRATE 25 MG TABLET (FP) PO SCH ×2 (09:43→21:12)
[2018-11-24] MEDS: NIFEdipine E.R. 30 MG TABLET (FP) PO SCH (09:43)
[2018-11-24] MEDS: HEPARIN NA (PORCINE) 5,000 UNITS/ML 1ML VIAL SQ SCH ×2 (09:43→21:11)
[2018-11-24] MEDS: busPIRone HCL 5 MG TABLET PO SCH ×2 (09:44→21:11)
[2018-11-24] MEDS: ASPIRIN COATED 81 MG TABLET.EC PO SCH (09:44)
[2018-11-24] MEDS: TIOTROPIUM BROMIDE 2.5 MCG (SPIRIVA) RESPIMAT INHALER IH SCH (09:46)
--- NOTE | 2018-11-24 13:03 | PN ---
Progress Note, Physician Chief Complaint: patient seen and examined patient drinking golytely complains of bloating - Current Medication List Current Medications: Active Medications Acetaminophen (Tylenol -) 650 mg PO Q6H PRN PRN Reason: FEVER Last Admin: 11/24/18 01:29 Dose: 650 mg Albuterol Sulfate (Ventolin Hfa Inhaler -) 2 puff IH Q6H PRN PRN Reason: WHEEZING Aspirin (Ecotrin -) 81 mg PO DAILY [facility] Last Admin: 11/24/18 09:44 Dose: 81 mg Buspirone HCl (Buspar -) 15 mg PO BID [facility] Last Admin: 11/24/18 09:44 Dose: 15 mg Calcium Carbonate/Cholecalciferol (Os-Kyler 500+D -) 1 tab PO DAILY [facility] Calcium Gluconate (Calcium Gluconate 10% -) 1,000 mg IVPB ONCE ONE Stop: 11/24/18 12:16 Gabapentin (Neurontin -) 100 mg PO TID [facility] Last Admin: 11/24/18 05:45 Dose: 100 mg Heparin Sodium (Porcine) (Heparin -) 5,000 unit SQ BID [facility] Last Admin: 11/24/18 09:43 Dose: 5,000 unit Insulin Aspart (Novolog Vial Sliding Scale -) 1 vial SQ [facility]; Protocol Last Admin: 11/24/18 12:45 Dose: Not Given Insulin Detemir (Levemir Vial) 40 units SQ [facility] Last Admin: 11/23/18 21:47 Dose: 30 units Methadone HCl (Dolophine -) 80 mg PO DAILY@0600 [facility] Last Admin: 11/24/18 05:44 Dose: 80 mg Metoprolol Tartrate (Lopressor -) 25 mg PO BID [facility] Last Admin: 11/24/18 09:43 Dose: 25 mg Nifedipine (Procardia Xl -) 30 mg PO DAILY [facility] Last Admin: 11/24/18 09:43 Dose: 30 mg Tiotropium [place] (Spiriva Respimat) 2 puff IH DAILY [facility] Last Admin: 11/24/18 09:46 Dose: 2 puff - Objective Vital Signs: Vital Signs Temperature 97.8 F 11/24/18 10:00 Pulse Rate 72 11/24/18 10:00 Respiratory Rate 18 11/24/18 10:00 Blood Pressure 134/85 11/24/18 10:00 O2 Sat by Pulse Oximetry (%) 98 11/24/18 09:00 Constitutional: Yes: Calm Cardiovascular: Yes: Regular Rate and Rhythm, S1, S2 Respiratory: Yes: CTA Bilaterally Gastrointestinal: Yes: Distention Edema: Yes Neurological: Yes: Alert Labs: CBC, BMP 11/22/18 05:30 11/24/18 06:00 INR, PTT INR 1.05 (0.83-1.09) 11/20/18 08:30 Problem List - Problems (1) Constipation Assessment/Plan: appreicate gi consult golytely lavage not responding to miralax Code(s): K59.00 - CONSTIPATION, UNSPECIFIED Qualifiers: Constipation type: unspecified constipation type Qualified Code(s): K59.00 - Constipation, unspecified (2) Vertebral compression fracture Assessment/Plan: radiation oncology and JOSE MANUEL noted to follow up as outpatient Code(s): M48.50XA - COLLAPSED VERTEBRA, NEC, SITE UNSP, INIT (3) Hyponatremia Assessment/Plan: ivf sodium now is 133 Code(s): E87.1 - HYPO-OSMOLALITY AND HYPONATREMIA (4) Diabetes Assessment/Plan: levemir Code(s): E11.9 - TYPE 2 DIABETES MELLITUS WITHOUT COMPLICATIONS Qualifiers: Diabetes mellitus type: type 2 (5) Multiple myeloma Assessment/Plan: apreicate oncology eval Code(s): C90.00 - MULTIPLE MYELOMA NOT HAVING ACHIEVED REMISSION (6) Hypocalcemia Assessment/Plan: iv calcium Code(s): E83.51 - HYPOCALCEMIA
[2018-11-24] MEDS ORDERED: CALCIUM GLUCONATE 10% - 1,000 MG/10 ML VIAL IVPB ONE (13:30)
[2018-11-24] MEDS: CALCIUM 500MG/VIT-D 200 UNITS COMBO TABLET (FP) PO SCH (13:47)
--- NOTE | 2018-11-24 14:08 | PN ---
Physical Exam: SUBJECTIVE: Patient seen and examined; +bloating; +BM OBJECTIVE: Vital Signs Period Temp Pulse Resp BP Sys/Andre Pulse Ox Last 24 Hr 97.3 F-99.0 F 68-81 18-20 107-164/64-92 98-98 GENERAL: The patient is awake, alert, and fully oriented, in no acute distress. LUNGS: Breath sounds equal, clear to auscultation bilaterally, no wheezes, no crackles, no accessory muscle use. HEART: Regular rate and rhythm, S1, S2 without murmur, rub or gallop. ABDOMEN: Soft, nontender, distended, normoactive bowel sounds, no guarding, no rebound, no hepatosplenomegaly, no masses. EXTREMITIES: 2+ pulses, warm, well-perfused, no edema. NEUROLOGICAL: Cranial nerves II through XII grossly intact. Normal speech, gait not observed. PSYCH: Normal mood, normal affect. SKIN: Warm, dry, normal turgor, no rashes or lesions noted Laboratory Results - last 24 hr 11/23/18 11/23/18 11/24/18 17:19 21:36 05:44 Sodium Potassium Chloride Carbon Dioxide Anion Gap BUN Creatinine Creat Clearance w eGFR POC Glucometer 117 198 129 Random Glucose Calcium Total Bilirubin AST ALT Alkaline Phosphatase Total Protein Albumin 11/24/18 11/24/18 06:00 11:49 Sodium 133 L Potassium 4.6 Chloride 102 Carbon Dioxide 22 Anion Gap 8 BUN 30 H Creatinine 1.7 H Creat Clearance w eGFR 40.65 POC Glucometer 103 Random Glucose 110 H Calcium 6.4 L* Total Bilirubin 0.2 AST 22 ALT 19 Alkaline Phosphatase 107 Total Protein 5.9 L Albumin 2.9 L Active Medications Generic Name Dose Route Start Last Admin Trade Name Freq PRN Reason Stop Dose Admin Acetaminophen 650 mg 11/20/18 16:03 11/24/18 13:47 Tylenol - PO 650 mg Q6H PRN Administration FEVER Albuterol Sulfate 2 puff 11/20/18 16:03 Ventolin Hfa Inhaler - IH Q6H PRN WHEEZING Aspirin 81 mg 11/21/18 10:00 11/24/18 09:44 Ecotrin - PO 81 mg DAILY YAKOV Administration Buspirone HCl 15 mg 11/20/18 22:00 11/24/18 09:44 Buspar - PO 15 mg BID YAKOV Administration Calcium Carbonate/Cholecalciferol 1 tab 11/24/18 13:30 11/24/18 13:47 Os-Kyler 500+D - PO 1 tab DAILY YAKOV Administration Gabapentin 100 mg 11/21/18 16:00 11/24/18 13:47 Neurontin - PO 100 mg TID YAKOV Administration Heparin Sodium (Porcine) 5,000 unit 11/20/18 22:00 11/24/18 09:43 Heparin - SQ 5,000 unit BID YAKOV Administration Insulin Aspart 1 vial 11/21/18 16:30 11/24/18 12:45 Novolog Vial Sliding Scale - SQ Not Given ACHS [facility] Protocol Insulin Detemir 40 units 11/20/18 22:00 11/23/18 21:47 Levemir Vial SQ 30 units HS YAKOV Administration Methadone HCl 80 mg 11/23/18 10:45 11/24/18 05:44 Dolophine - PO 80 mg DAILY@0600 YAKOV Administration Metoprolol Tartrate 25 mg 11/20/18 22:00 11/24/18 09:43 Lopressor - PO 25 mg BID YAKOV Administration Nifedipine 30 mg 11/21/18 10:00 11/24/18 09:43 Procardia Xl - PO 30 mg DAILY YAKOV Administration Tiotropium [place] 2 puff 11/21/18 13:30 11/24/18 09:46 Spiriva Respimat IH 2 puff DAILY YAKOV Administration ASSESSMENT/PLAN: 63 yo M, with PMH of HTN, HLD, IDDM, Hep C (s/p Harvoni), PVD, past opioid use ( on methadone), and multiple myeloma , who is presenting with complaints of nausea, vomiting, abdominal distension and discomfort, and constipation worsened over the weekend. He received radiation to L spine and left acetabulum. MM with osteolytic lesions anemia CKD hyponatremia hypertension DM -MRI noted ;neurosurgery eval; vertebral MM; nothing to do at this time; no significant neurological element compression -rad/onc eval appreciated; f/u outpatient for possible palliate radiation for fractures -He has been on velcade/cytoxan/dexamethasone and started zometa monthly -anemia; currently all cell lines decreased; can be dilutional from IVF; chronic anemia due CKD; MM; -seen by rad/onc; can f/u in office Visit type - Emergency Visit Emergency Visit: Yes ED Registration Date: 11/20/18 Care time: The patient presented to the Emergency Department on the above date and was hospitalized for further evaluation of their emergent condition. - New Patient This patient is new to me today: No - Critical Care Critical Care patient: No
[2018-11-24] MEDS ORDERED: PT OWN MED DRAWER 7, Y5N ONE (16:20)
[2018-11-24] MEDS ORDERED: FUROSEMIDE 40 MG TABLET (FP) PO ONE (16:32)
--- NOTE | 2018-11-24 16:33 | PN ---
Progress Note, Physician History of Present Illness: Pt seen and examined at bedside. He is awake and alert. He complains of lower ext edema. - Current Medication List Current Medications: Active Medications Acetaminophen (Tylenol -) 650 mg PO Q6H PRN PRN Reason: FEVER Last Admin: 11/24/18 13:47 Dose: 650 mg Albuterol Sulfate (Ventolin Hfa Inhaler -) 2 puff IH Q6H PRN PRN Reason: WHEEZING Aspirin (Ecotrin -) 81 mg PO DAILY [facility] Last Admin: 11/24/18 09:44 Dose: 81 mg Buspirone HCl (Buspar -) 15 mg PO BID [facility] Last Admin: 11/24/18 09:44 Dose: 15 mg Calcium Carbonate/Cholecalciferol (Os-Kyler 500+D -) 1 tab PO DAILY [facility] Last Admin: 11/24/18 13:47 Dose: 1 tab Gabapentin (Neurontin -) 100 mg PO TID [facility] Last Admin: 11/24/18 13:47 Dose: 100 mg Heparin Sodium (Porcine) (Heparin -) 5,000 unit SQ BID [facility] Last Admin: 11/24/18 09:43 Dose: 5,000 unit Insulin Aspart (Novolog Vial Sliding Scale -) 1 vial SQ [facility]; Protocol Last Admin: 11/24/18 12:45 Dose: Not Given Insulin Detemir (Levemir Vial) 40 units SQ HS [facility] Last Admin: 11/23/18 21:47 Dose: 30 units Methadone HCl (Dolophine -) 80 mg PO DAILY@0600 [facility] Last Admin: 11/24/18 05:44 Dose: 80 mg Metoprolol Tartrate (Lopressor -) 25 mg PO BID [facility] Last Admin: 11/24/18 09:43 Dose: 25 mg Nifedipine (Procardia Xl -) 30 mg PO DAILY [facility] Last Admin: 11/24/18 09:43 Dose: 30 mg Tiotropium [place] (Spiriva Respimat) 2 puff IH DAILY [facility] Last Admin: 11/24/18 09:46 Dose: 2 puff - Objective Vital Signs: Vital Signs Temperature 97.8 F 11/24/18 13:49 Pulse Rate 76 11/24/18 13:49 Respiratory Rate 18 11/24/18 10:00 Blood Pressure 164/92 11/24/18 13:49 O2 Sat by Pulse Oximetry (%) 98 11/24/18 09:00 Constitutional: Yes: Calm Eyes: Yes: Conjunctiva Clear HENT: Yes: Atraumatic Neck: Yes: Supple Cardiovascular: Yes: S1, S2 Respiratory: Yes: CTA Bilaterally Gastrointestinal: Yes: Soft Genitourinary: Yes: WNL Musculoskeletal: Yes: WNL Edema: Yes Edema: LLE: 1+, RLE: 1+ Neurological: Yes: Oriented Psychiatric: Yes: Oriented Labs: CBC, BMP 11/22/18 05:30 11/24/18 06:00 INR, PTT INR 1.05 (0.83-1.09) 11/20/18 08:30 Problem List - Problems (1) CKD (chronic kidney disease) Code(s): N18.9 - CHRONIC KIDNEY DISEASE, UNSPECIFIED (2) Constipation Code(s): K59.00 - CONSTIPATION, UNSPECIFIED Qualifiers: Constipation type: unspecified constipation type Qualified Code(s): K59.00 - Constipation, unspecified (3) Hyponatremia Code(s): E87.1 - HYPO-OSMOLALITY AND HYPONATREMIA Assessment/Plan Current Medications Generic Name Dose Route Start Last Admin Trade Name Freq PRN Reason Stop Dose Admin Acetaminophen 650 mg 11/20/18 16:03 11/24/18 13:47 Tylenol - PO 650 mg Q6H PRN Administration FEVER Albuterol Sulfate 2 puff 11/20/18 16:03 Ventolin Hfa Inhaler - IH Q6H PRN WHEEZING Aspirin 81 mg 11/21/18 10:00 11/24/18 09:44 Ecotrin - PO 81 mg DAILY YAKOV Administration Buspirone HCl 15 mg 11/20/18 22:00 11/24/18 09:44 Buspar - PO 15 mg BID YAKOV Administration Calcium Carbonate/Cholecalciferol 1 tab 11/24/18 13:30 11/24/18 13:47 Os-Kyler 500+D - PO 1 tab DAILY YAKOV Administration Gabapentin 100 mg 11/21/18 16:00 11/24/18 13:47 Neurontin - PO 100 mg TID YAKOV Administration Heparin Sodium (Porcine) 5,000 unit 11/20/18 22:00 11/24/18 09:43 Heparin - SQ 5,000 unit BID YAKOV Administration Insulin Aspart 1 vial 11/21/18 16:30 11/24/18 12:45 Novolog Vial Sliding Scale - SQ Not Given ACHS [facility] Protocol Insulin Detemir 40 units 11/20/18 22:00 11/23/18 21:47 Levemir Vial SQ 30 units HS YAKOV Administration Methadone HCl 80 mg 11/23/18 10:45 11/24/18 05:44 Dolophine - PO 80 mg DAILY@0600 YAKOV Administration Metoprolol Tartrate 25 mg 11/20/18 22:00 11/24/18 09:43 Lopressor - PO 25 mg BID YAKOV Administration Nifedipine 30 mg 11/21/18 10:00 11/24/18 09:43 Procardia Xl - PO 30 mg DAILY YAKOV Administration Tiotropium [place] 2 puff 11/21/18 13:30 11/24/18 09:46 Spiriva Respimat IH 2 puff DAILY YAKOV Administration Impression 1. hyppnatremia 2. CKD 3. nausea and vomiting 4. htn 5. DM 6. 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 multiple myeloma 9. anemia 10. proteinuria Plan - start calcium supplements - repeat labs in am - will give a small dose of lasix - will follow - likely etiology of hyponatremia is dehydration and GI losses - myeloma can explain renal dysfunction Dr Cates
[2018-11-24] MEDS: INSULIN (LEVEMIR) 100 UNITS/ML UNITS SQ SCH (21:12)
[2018-11-24] MEDS ORDERED: DOCUSATE SODIUM 100 MG CAPSULE (FP) PO PRN (22:18)
[2018-11-24] MEDS: oxyCODONE HCL 5 MG TABLET PO PRN (22:34)
[2018-11-25] MEDS: METHADONE HCL 40 MG DISPERSABLE TABLET PO SCH (06:11)
[2018-11-25] MEDS: GABAPENTIN 100 MG CAPSULE (FP) PO SCH ×3 (06:11→21:03)
[2018-11-25] MEDS: INSULIN SLIDING SCALE (NOVOLOG) 1 VIAL SQ SCH ×4 (06:13→21:04)
[2018-11-25 07:48] LABS: ALBUMIN 2.6 g/dl (3.4-5.0); ALK PHOS 95 U/L (45-117); ANION GAP 7 MMOL/L (8-16); BILIRUBIN,TOTAL 0.1 mg/dL (0.2-1); BLOOD UREA NITROGEN 36 mg/dL (7-18); CHLORIDE 103 mmol/L (98-107); CO2 24 mmol/L (21-32); CREATININE 1.6 mg/dL (0.55-1.3); GLUCOSE,RANDOM 101 mg/dL (74-106); POTASSIUM 5.3 mmol/L (3.5-5.1); SGOT/AST 18 U/L (15-37); SGPT/ALT 18 U/L (13-61); SODIUM 134 mmol/L (136-145); TOT PROT 5.6 g/dl (6.4-8.2)
[2018-11-25] MEDS: oxyCODONE HCL 5 MG TABLET PO PRN ×2 (09:37→15:33)
[2018-11-25] MEDS: ACETAMINOPHEN 325 MG TABLET (FP) PO PRN ×2 (09:38→15:34)
[2018-11-25] MEDS: busPIRone HCL 5 MG TABLET PO SCH ×2 (09:39→21:00)
[2018-11-25] MEDS: ASPIRIN COATED 81 MG TABLET.EC PO SCH (09:39)
[2018-11-25] MEDS: CALCIUM 500MG/VIT-D 200 UNITS COMBO TABLET (FP) PO SCH (09:39)
[2018-11-25] MEDS: METOPROLOL TARTRATE 25 MG TABLET (FP) PO SCH ×2 (09:39→21:03)
[2018-11-25] MEDS: NIFEdipine E.R. 30 MG TABLET (FP) PO SCH (09:39)
[2018-11-25] MEDS: HEPARIN NA (PORCINE) 5,000 UNITS/ML 1ML VIAL SQ SCH ×2 (09:40→21:01)
[2018-11-25] MEDS: TIOTROPIUM BROMIDE 2.5 MCG (SPIRIVA) RESPIMAT INHALER IH SCH (09:40)
[2018-11-25 12:02] LABS: CALCIUM 6.8 mg/dL (8.5-10.1)
[2018-11-25] MEDS ORDERED: CALCIUM GLUCONATE 10% - 1,000 MG/10 ML VIAL IVPB ONE (13:05)
--- NOTE | 2018-11-25 13:05 | PN ---
Progress Note, Physician History of Present Illness: Pt seen and examined at bedside. He is awake and alert. He complains of constipation. He denies shortness of breath. - Current Medication List Current Medications: Active Medications Acetaminophen (Tylenol -) 650 mg PO Q6H PRN PRN Reason: FEVER Last Admin: 11/25/18 09:38 Dose: 650 mg Albuterol Sulfate (Ventolin Hfa Inhaler -) 2 puff IH Q6H PRN PRN Reason: WHEEZING Aspirin (Ecotrin -) 81 mg PO DAILY [facility] Last Admin: 11/25/18 09:39 Dose: 81 mg Buspirone HCl (Buspar -) 15 mg PO BID [facility] Last Admin: 11/25/18 09:39 Dose: 15 mg Calcium Carbonate/Cholecalciferol (Os-Kyler 500+D -) 1 tab PO DAILY [facility] Last Admin: 11/25/18 09:39 Dose: 1 tab Docusate Sodium (Colace -) 100 mg PO BID PRN PRN Reason: CONSTIPATION Last Admin: 11/25/18 10:55 Dose: 100 mg Gabapentin (Neurontin -) 100 mg PO TID [facility] Last Admin: 11/25/18 06:11 Dose: 100 mg Heparin Sodium (Porcine) (Heparin -) 5,000 unit SQ BID [facility] Last Admin: 11/25/18 09:40 Dose: 5,000 unit Insulin Aspart (Novolog Vial Sliding Scale -) 1 vial SQ [facility]; Protocol Last Admin: 11/25/18 11:24 Dose: Not Given Insulin Detemir (Levemir Vial) 40 units SQ HS [facility] Last Admin: 11/24/18 21:12 Dose: 30 units Methadone HCl (Dolophine -) 80 mg PO DAILY@0600 [facility] Last Admin: 11/25/18 06:11 Dose: 80 mg Metoprolol Tartrate (Lopressor -) 25 mg PO BID [facility] Last Admin: 11/25/18 09:39 Dose: 25 mg Nifedipine (Procardia Xl -) 30 mg PO DAILY [facility] Last Admin: 11/25/18 09:39 Dose: 30 mg Oxycodone HCl (Roxicodone -) 10 mg PO Q6H PRN PRN Reason: PAIN LEVEL 7 - 10 Last Admin: 11/25/18 09:37 Dose: 10 mg Tiotropium [place] (Spiriva Respimat) 2 puff IH DAILY [facility] Last Admin: 11/25/18 09:40 Dose: 2 puff - Objective Vital Signs: Vital Signs Temperature 98.2 F 11/25/18 11:00 Pulse Rate 85 11/25/18 11:00 Respiratory Rate 17 11/25/18 11:00 Blood Pressure 138/82 11/25/18 11:00 O2 Sat by Pulse Oximetry (%) 98 11/25/18 09:00 Constitutional: Yes: Calm Eyes: Yes: Conjunctiva Clear HENT: Yes: Atraumatic Neck: Yes: Supple Cardiovascular: Yes: S1, S2 Respiratory: Yes: CTA Bilaterally Gastrointestinal: Yes: Soft Genitourinary: Yes: WNL Musculoskeletal: Yes: WNL Edema: Yes Edema: LLE: 1+, RLE: 1+ Neurological: Yes: Oriented Psychiatric: Yes: Oriented Labs: CBC, BMP 11/22/18 05:30 11/25/18 05:30 INR, PTT INR 1.05 (0.83-1.09) 11/20/18 08:30 Problem List - Problems (1) CKD (chronic kidney disease) Code(s): N18.9 - CHRONIC KIDNEY DISEASE, UNSPECIFIED (2) Constipation Code(s): K59.00 - CONSTIPATION, UNSPECIFIED Qualifiers: Constipation type: unspecified constipation type Qualified Code(s): K59.00 - Constipation, unspecified (3) Hyponatremia Code(s): E87.1 - HYPO-OSMOLALITY AND HYPONATREMIA Assessment/Plan Current Medications Generic Name Dose Route Start Last Admin Trade Name Freq PRN Reason Stop Dose Admin Acetaminophen 650 mg 11/20/18 16:03 11/25/18 09:38 Tylenol - PO 650 mg Q6H PRN Administration FEVER Albuterol Sulfate 2 puff 11/20/18 16:03 Ventolin Hfa Inhaler - IH Q6H PRN WHEEZING Aspirin 81 mg 11/21/18 10:00 11/25/18 09:39 Ecotrin - PO 81 mg DAILY [facility] Administration Buspirone HCl 15 mg 11/20/18 22:00 11/25/18 09:39 Buspar - PO 15 mg BID [facility] Administration Calcium Carbonate/Cholecalciferol 1 tab 11/24/18 13:30 11/25/18 09:39 Os-Kyler 500+D - PO 1 tab DAILY [facility] Administration Docusate Sodium 100 mg 11/24/18 22:18 11/25/18 10:55 Colace - PO 100 mg BID PRN Administration CONSTIPATION Gabapentin 100 mg 11/21/18 16:00 11/25/18 06:11 Neurontin - PO 100 mg TID YAKOV Administration Heparin Sodium (Porcine) 5,000 unit 11/20/18 22:00 11/25/18 09:40 Heparin - SQ 5,000 unit BID [facility] Administration Insulin Aspart 1 vial 11/21/18 16:30 11/25/18 11:24 Novolog Vial Sliding Scale - SQ Not Given ACHS [facility] Protocol Insulin Detemir 40 units 11/20/18 22:00 11/24/18 21:12 Levemir Vial SQ 30 units HS [facility] Administration Methadone HCl 80 mg 11/23/18 10:45 11/25/18 06:11 Dolophine - PO 80 mg DAILY@0600 [facility] Administration Metoprolol Tartrate 25 mg 11/20/18 22:00 11/25/18 09:39 Lopressor - PO 25 mg BID [facility] Administration Nifedipine 30 mg 11/21/18 10:00 11/25/18 09:39 Procardia Xl - PO 30 mg DAILY [facility] Administration Oxycodone HCl 10 mg 11/24/18 22:18 11/25/18 09:37 Roxicodone - PO 10 mg Q6H PRN Administration PAIN LEVEL 7 - 10 Tiotropium [place] 2 puff 11/21/18 13:30 11/25/18 09:40 Spiriva Respimat IH 2 puff DAILY [facility] Administration Impression 1. hyppnatremia 2. CKD 3. nausea and vomiting 4. htn 5. DM 6. 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 multiple myeloma 9. anemia 10. proteinuria 11. hyperkalemia Plan - cont with bowel regimen - constipation can contribute to hyperkalemia - will give saline - repeat bmp - will follow - likely etiology of hyponatremia is dehydration and GI losses - myeloma can explain renal dysfunction Dr Cates
[2018-11-25 13:44] LABS: ANION GAP 6 MMOL/L (8-16); BLOOD UREA NITROGEN 35 mg/dL (7-18); CALCIUM 7.1 mg/dL (8.5-10.1); CHLORIDE 101 mmol/L (98-107); CO2 25 mmol/L (21-32); CREATININE 1.5 mg/dL (0.55-1.3); GLUCOSE,RANDOM 81 mg/dL (74-106); POTASSIUM 4.6 mmol/L (3.5-5.1); SODIUM 132 mmol/L (136-145)
--- NOTE | 2018-11-25 15:26 | PN ---
Progress Note, Physician Chief Complaint: having BM and bloating is better leg edema is slightly better stop ivf - Current Medication List Current Medications: Active Medications Acetaminophen (Tylenol -) 650 mg PO Q6H PRN PRN Reason: FEVER Last Admin: 11/25/18 09:38 Dose: 650 mg Albuterol Sulfate (Ventolin Hfa Inhaler -) 2 puff IH Q6H PRN PRN Reason: WHEEZING Aspirin (Ecotrin -) 81 mg PO DAILY [facility] Last Admin: 11/25/18 09:39 Dose: 81 mg Buspirone HCl (Buspar -) 15 mg PO BID [facility] Last Admin: 11/25/18 09:39 Dose: 15 mg Calcium Carbonate/Cholecalciferol (Os-[place] 500+D -) 1 tab PO DAILY [facility] Last Admin: 11/25/18 09:39 Dose: 1 tab Docusate Sodium (Colace -) 100 mg PO BID PRN PRN Reason: CONSTIPATION Last Admin: 11/25/18 10:55 Dose: 100 mg Gabapentin (Neurontin -) 100 mg PO TID [facility] Last Admin: 11/25/18 13:28 Dose: 100 mg Heparin Sodium (Porcine) (Heparin -) 5,000 unit SQ BID [facility] Last Admin: 11/25/18 09:40 Dose: 5,000 unit Insulin Aspart (Novolog Vial Sliding Scale -) 1 vial SQ [facility]; Protocol Last Admin: 11/25/18 11:24 Dose: Not Given Insulin Detemir (Levemir Vial) 40 units SQ [facility] Last Admin: 11/24/18 21:12 Dose: 30 units Methadone HCl (Dolophine -) 80 mg PO DAILY@0600 [facility] Last Admin: 11/25/18 06:11 Dose: 80 mg Metoprolol Tartrate (Lopressor -) 25 mg PO BID [facility] Last Admin: 11/25/18 09:39 Dose: 25 mg Nifedipine (Procardia Xl -) 30 mg PO DAILY [facility] Last Admin: 11/25/18 09:39 Dose: 30 mg Oxycodone HCl (Roxicodone -) 10 mg PO Q6H PRN PRN Reason: PAIN LEVEL 7 - 10 Last Admin: 11/25/18 09:37 Dose: 10 mg Tiotropium [place] (Spiriva Respimat) 2 puff IH DAILY [facility] Last Admin: 11/25/18 09:40 Dose: 2 puff - Objective Vital Signs: Vital Signs Temperature 98.2 F 11/25/18 11:00 Pulse Rate 85 11/25/18 11:00 Respiratory Rate 17 11/25/18 11:00 Blood Pressure 138/82 11/25/18 11:00 O2 Sat by Pulse Oximetry (%) 98 11/25/18 09:00 Constitutional: Yes: Calm Cardiovascular: Yes: Regular Rate and Rhythm, S1, S2 Respiratory: Yes: CTA Bilaterally Gastrointestinal: Yes: Soft, Other (less distended) Edema: Yes Neurological: Yes: Alert Labs: CBC, BMP 11/22/18 05:30 11/25/18 12:52 INR, PTT INR 1.05 (0.83-1.09) 11/20/18 08:30 Problem List - Problems (1) Constipation Assessment/Plan: appreicate gi consult golytely lavage not responding to miralax Code(s): K59.00 - CONSTIPATION, UNSPECIFIED Qualifiers: Constipation type: unspecified constipation type Qualified Code(s): K59.00 - Constipation, unspecified (2) Vertebral compression fracture Assessment/Plan: radiation oncology and JOSE MANUEL noted to follow up as outpatient Code(s): M48.50XA - COLLAPSED VERTEBRA, NEC, SITE UNSP, INIT (3) Hyponatremia Assessment/Plan: ivf stopped sodium now is 133 Code(s): E87.1 - HYPO-OSMOLALITY AND HYPONATREMIA (4) Diabetes Assessment/Plan: levemir Code(s): E11.9 - TYPE 2 DIABETES MELLITUS WITHOUT COMPLICATIONS Qualifiers: Diabetes mellitus type: type 2 (5) Multiple myeloma Assessment/Plan: apreicate oncology eval Code(s): C90.00 - MULTIPLE MYELOMA NOT HAVING ACHIEVED REMISSION (6) Hypocalcemia Assessment/Plan: now calcium is better Code(s): E83.51 - HYPOCALCEMIA
--- NOTE | 2018-11-25 17:40 | RAPID ---
Physical Examination Vital Signs: Vital Signs Temperature 97.9 F 11/25/18 14:00 Pulse Rate 77 11/25/18 14:00 Respiratory Rate 17 11/25/18 11:00 Blood Pressure 140/77 11/25/18 14:00 O2 Sat by Pulse Oximetry (%) 98 11/25/18 09:00 Labs: CBC, BMP 11/22/18 05:30 11/25/18 12:52 Rapid Response - Rapid Response Assessment: rapid response called due to sudden onset of SOB. pt in respiratory distress and saying he cant breath. Initial lung exam poor air entry w/ notable wheezing. Patient was having labored subclavicular retractions and abdominal breathing. Initially was on a NC and was switched to NRB, satting 98%, but still felt notably SOB, agitated and was pulling at mask. Medrol 125 IV and duoneb were administered. pt had mild but short lived improvement w/ return of accessory muscle use and pt still pulling at mask. rpt Lung exam was still notable for coarse breath sounds Anesthesia was called. pt intubated w/ rapid sequence intubation: tube 7.5mm, etomidate, succinylcholine, and rocuronium pt was transferred to ICU, BP noted to be 200/100. pt put on ventilator AC mode and propofol gtt. BP continuously improving w/ sedation CXR and ABG ordered signed out to ICU team.
[2018-11-25] MEDS ORDERED: ALBUTEROL SO4 2.5/IPRATROPIUM 0.5 INH SOL 3 ML VIAL.NEB. NEB ONE (17:50)
[2018-11-25] MEDS ORDERED: methylPREDNISolone NA SUCC 125 MG/2 ML VIAL IVPUSH ONE (18:00)
[2018-11-25] MEDS ORDERED: SUCCINYLCHOLINE CHLORIDE 200 MG/10 ML VIAL IVPUSH ONE (18:36)
[2018-11-25] MEDS ORDERED: ROCURONIUM BROMIDE 50 MG/5 ML VIAL IV ONE (18:37)
[2018-11-25] MEDS ORDERED: ETOMIDATE 20 MG/10 ML AMPUL IVPUSH ONE (18:38)
[2018-11-25] MEDS ORDERED: PROPOFOL 1,000,000 MCG/100 ML VIAL IVPB SCH (18:45)
[2018-11-25 19:15] LABS: FREE KAPPA,SERUM 942.5 mg/L (3.3-19.4)
[2018-11-25] MEDS ORDERED: FUROSEMIDE 40 MG/4 ML INJECTABLE VIAL IVPUSH ONE (19:15)
[2018-11-25] MEDS ORDERED: FUROSEMIDE 40 MG/4 ML INJECTABLE VIAL ONE (19:23)
--- NOTE | 2018-11-25 19:30 | CONSULT ---
Consultation: REQUESTING PROVIDER: Dr. Irvin CONSULT REQUEST: We have been asked to medically evaluate this patient for acute respiratory failure. HISTORY OF PRESENT ILLNESS: Patient is a 63 year old male with a PMHx of HTN, HLD, IDDMII, Hepatitis C ( cured several years ago), PAD/PVD, LE ulcerations, opioid use (On methadone), Multiple Myeloma (Diagnosed last month and started Chemotherapy with last one on 11/18/18) who presented to the ED initially for nausea, vomiting, abdominal distension and constipation for three days. Patient has abdominal CT and revealed no obstruction but was found to have moderate hyponatremia, wheezing on examination, and severe constipation. Patient was admitted to telemetry for further monitoring. Today, rapid response was called on patient due to respiratory distress. Patient was having labored and abdominal breathing and subsequently intubated. Patient then transferred to ICU for further monitoring REVIEW OF SYSTEMS: Unable to obtain PHYSICAL EXAMINATION Vital Signs 11/24/18 11/24/18 11/25/18 19:47 22:13 03:00 Temperature 97.9 F 97.2 F L Pulse Rate 86 82 77 Respiratory 18 18 18 Rate Blood Pressure 126/76 141/86 144/90 O2 Sat by Pulse Oximetry (%) GENERAL: Intubated and sedated EYES: Pupils equal, round and reactive to light, sclera anicteric. ENT: ET tube placed NECK: (-) JVD LUNGS: ET tube in place. Wheezing throughout lung bases HEART: Tachycardic with regular rhythm, normal S1 and S2 . ABDOMEN: Soft, nontender, mildly distended, normoactive bowel sounds EXTREMITIES: No peripheral edema, chronic venous stasis of LE bilaterally NEUROLOGICAL: Unable to asses. Active Medications Generic Name Dose Route Start Last Admin Trade Name Freq PRN Reason Stop Dose Admin Acetaminophen 650 mg 11/20/18 16:03 11/25/18 15:34 Tylenol - PO 650 mg Q6H PRN Administration FEVER Albuterol Sulfate 2 puff 11/20/18 16:03 Ventolin Hfa Inhaler - IH Q6H PRN WHEEZING Aspirin 81 mg 11/21/18 10:00 11/25/18 09:39 Ecotrin - PO 81 mg DAILY YAKOV Administration Buspirone HCl 15 mg 11/20/18 22:00 11/25/18 09:39 Buspar - PO 15 mg BID YAKOV Administration Calcium Carbonate/Cholecalciferol 1 tab 11/24/18 13:30 11/25/18 09:39 Os-Kyler 500+D - PO 1 tab DAILY [facility] Administration Chlorhexidine Gluconate 1 applic 11/25/18 22:00 Hibiclens For Decolonization - TP HS [facility] Docusate Sodium 100 mg 11/24/18 22:18 11/25/18 10:55 Colace - PO 100 mg BID PRN Administration CONSTIPATION Gabapentin 100 mg 11/21/18 16:00 11/25/18 13:28 Neurontin - PO 100 mg TID [facility] Administration Heparin Sodium (Porcine) 5,000 unit 11/20/18 22:00 11/25/18 09:40 Heparin - SQ 5,000 unit BID [facility] Administration Propofol 1,000,000 mcg in 100 mls @ 9.349 mls/hr 11/25/18 18:45 11/25/18 19: 19 Diprivan - IVPB 50 mcg/kg/min TITR YAKOV 31.162 mls/hr Titration Protocol 15 MCG/KG/MIN Insulin Aspart 1 vial 11/21/18 16:30 11/25/18 16:36 Novolog Vial Sliding Scale - SQ Not Given ACHS [facility] Protocol Insulin Detemir 40 units 11/20/18 22:00 11/24/18 21:12 Levemir Vial SQ 30 units HS [facility] Administration Methadone HCl 80 mg 11/23/18 10:45 11/25/18 06:11 Dolophine - PO 80 mg DAILY@0600 [facility] Administration Metoprolol Tartrate 25 mg 11/20/18 22:00 11/25/18 09:39 Lopressor - PO 25 mg BID [facility] Administration Mupirocin 1 applic 11/25/18 22:00 Bactroban Ointment (For Decolonization) - NS 11/30/18 21:59 BID [facility] Nifedipine 30 mg 11/21/18 10:00 11/25/18 09:39 Procardia Xl - PO 30 mg DAILY [facility] Administration Oxycodone HCl 10 mg 11/24/18 22:18 11/25/18 15:33 Roxicodone - PO 10 mg Q6H PRN Administration PAIN LEVEL 7 - 10 Tiotropium [place] 2 puff 11/21/18 13:30 11/25/18 09:40 Spiriva Respimat IH 2 puff DAILY [facility] Administration ASSESSMENT/PLAN: Patient is a 63 year old male who presented for abdominal pain with constipation and was found to have severe constipation and hyponatremia and admitted for further monitoring and management. Rapid response was called on patient for respiratory distress and was then intubated and transferred to ICU for further monitoring and management. NEURO/PSYCH -Intubated and sedated -Currently on propofol #Opioid Use -Currently on Methadone. PULMONARY #Acute Hypoxic Hypercapneic Respiratory Failire -Likely secondary to Pulmonary Edema vs ARDS -Lasix 40mg IVP given -Duo-nebs given -Patient intubated with vent settings (low TV and High PEEP) -ABG ordered -Repeat Labs ordered- cbc,cmp, lactic, cardiac profile -CXR ordered -IV Zosyn and Vancomycin ordered -Maintain 02 >90% #COPD -On Spiriva at home -Will put Duo-Neb PRN -Continue to monitor 02 sat and maintain >90% CARDIOLOGY #HTN -Currently hypotensive -Hold anti-htn medications -Continue to monitor BP #HLD -On home medications but will hold PO medications for now as patient is intubated ENDOCRINOLOGY #IDDM -BGM -ISS GASTROENTEROLOGY #Hx of Hepatitis C -Treated and cured several years ago according to medical records #Constipation -Given GoLyte and had several BM's HEMATOLOGY/ONCOLOGY #Multiple Myeloma -Followed by Dr. Grady -Last chemotherapy (11/18/18) on velcade/cytoxan/dexamethasone F/E/N -On no fluids -Hypocalcemia -NPO Prophylaxis -Heparin for DVT -Protonix for GI Disposition -Full code. Daughter and at bedside and daughter is the HCP -ICU monitoring Nciole Mendoza [id number] Visit type - Emergency Visit Emergency Visit: Yes ED Registration Date: 11/20/18 Care time: The patient presented to the Emergency Department on the above date and was hospitalized for further evaluation of their emergent condition. - New Patient This patient is new to me today: Yes Date on this admission: 11/25/18 - Critical Care Critical Care patient: Yes Total Critical Care Time (in minutes): 45 Critical Care Statement: The care of this patient involved high complexity decision making to prevent further life threatening deterioration of the patient 's condition and/or to evaluate & treat vital organ system(s) failure or risk of failure.
--- NOTE | 2018-11-25 19:39 | PN ---
Progress Note (short form) - Note Progress Note: Patient seen and examined in icu Discussed case with resident earlier in the day and patient was doing well but later in the evening while having a bowel movement ? straining, patient became acutely short of breath and BP had increased to 200s/110s. Patient was intubated. O2 sat was 85% CXR showed new b/l airspace opacities clinical scenario suspicious for flash pulmonary edema r/o occult infection/other etiologies but clinical scenario highly suspicious for hypertensive urgency/flash pulmonary edema Intubtaed Opening eyes to voice/agitated when sedation decreased Cor: RSR, No murmurs, No gallops Lungs: Clear to P&A Abd: Soft, Normal bowel sounds, No organomegaly Ext:chronic stasis dermatitis Labs/meds reviewed A/P 63 y/o patient with multiple coorbidites, HTN, DM, PVD, ? COPD, CKD, recently diagnosed myeloma, vertebral fractures on velcade/cytoxan/dexamethasone/zometa. Admitted with severe constipation and hyponatremia. Was on golytely received NS for hyponatremia Developed acute resp. distress and high BPsthis evening ? flash pulmonary edema intubated CXR-airspace opacities discussed with cardio/renal/icu teams lasix 40mg ivp x1 consult r/o occult infection ID consult Myeloma--on velcade/cytoxan/dex --last dose 11/18 On zometa--11/18 treatment held this week light chains decreasing slowly s/p rt to lspine and left acetabular fx discussed and updated family
[2018-11-25] MEDS ORDERED: PIPERACILLIN/TAZOB 3.375 GM 3.375 GM in DEXTROSE 5%-WATER - 50 ML IVPB SCH (19:45)
[2018-11-25] MEDS ORDERED: VANCOMYCIN 1 GRAM (PRE-DOCKED) 1,000 MG/250 ML BAG IVPB ONE (20:00)
[2018-11-25 20:14] LABS: ARTERIAL BLD GAS O2 SATURATION 90.6 % (90-98.9); ARTERIAL BLOOD GAS BASE EXCESS -8.7 meq/l (-2-2); ARTERIAL BLOOD GAS PO2 80.9 mmHg (80-100)
[2018-11-25 20:18] LABS: ALLENS TEST POSITIVE
[2018-11-25 20:21] LABS: ARTERIAL BLOOD GAS PCO2 74.9 mmHg (35-45); ARTERIAL BLOOD GAS pH 7.09 (7.35-7.45)
[2018-11-25] MEDS ORDERED: PIPERACILLIN/TAZOBACTAM 3.375 GM VIAL IVPB ONE (20:22)
[2018-11-25] MEDS ORDERED: DEXTROSE 5%-WATER - 50 ML IVPB ONE (20:22)
[2018-11-25] MEDS: PIPERACILLIN/TAZOB 3.375 GM 3.375 GM in DEXTROSE 5%-WATER - 50 ML IVPB SCH (20:27)
[2018-11-25 20:31] LABS: BASO % 0.3 % (0-2.0); EOS % 1.1 % (0-4.5); HEMATOCRIT 31.5 % (35.4-49); HEMOGLOBIN 10.8 GM/dL (11.7-16.9); LYMPH % 6.5 % (8-40); MCH 29.4 pg (25.7-33.7); MCHC 34.2 g/dl (32.0-35.9); MEAN CELL VOLUME 85.8 fl (80-96); MEAN PLT VOLUME 7.3 fl (7.5-11.1); MONO % 2.2 % (3.8-10.2); NEUT % 89.9 % (42.8-82.8); PLATELET COUNT 263 K/MM3 (134-434); RBC 3.68 M/mm3 (4.00-5.60); WHITE BLOOD COUNT 7.9 K/mm3 (4.0-10.0)
[2018-11-25 20:52] LABS: INR 1.05 (0.83-1.09); PROTHROMBIN TIME (PATIENT) 12.4 SEC (9.7-13.0)
[2018-11-25 20:54] LABS: ACTIVATED PTT 33.5 SECONDS (25.2-36.5)
[2018-11-25] MEDS: INSULIN (LEVEMIR) 100 UNITS/ML UNITS SQ SCH (21:04)
[2018-11-25] MEDS: FENTANYL INJECTION 500 MCG in DEXTROSE 5%-WATER - 90 ML IVPB SCH (21:15)
[2018-11-25] MEDS ORDERED: ALBUTEROL SO4 2.5/IPRATROPIUM 0.5 INH SOL 3 ML VIAL.NEB. NEB PRN (21:18)
[2018-11-25 21:24] LABS: LDH 292 U/L (87-246)
[2018-11-25 21:25] LABS: ALBUMIN 2.7 g/dl (3.4-5.0); ALK PHOS 122 U/L (45-117); ANION GAP 8 MMOL/L (8-16); BILIRUBIN,TOTAL 0.3 mg/dL (0.2-1); BLOOD UREA NITROGEN 36 mg/dL (7-18); CHLORIDE 100 mmol/L (98-107); CO2 23 mmol/L (21-32); CREATININE 1.6 mg/dL (0.55-1.3); GLUCOSE,RANDOM 181 mg/dL (74-106); POTASSIUM 5.7 mmol/L (3.5-5.1); SGOT/AST 21 U/L (15-37); SGPT/ALT 21 U/L (13-61); SODIUM 131 mmol/L (136-145); TOT PROT 5.9 g/dl (6.4-8.2); URIC ACID 4.8 mg/dL (2.6-7.2)
[2018-11-25 21:26] LABS: CALCIUM 6.6 mg/dL (8.5-10.1)
[2018-11-25] MEDS ORDERED: MUPIROCIN 2% TOPICAL OINTMENT FOR DECOLONIZATION NS SCH (22:00)
[2018-11-25] MEDS ORDERED: CHLORHEXIDINE GLUCONATE 4% CLEANSER FOR DECOLONIZATION TP SCH (22:00)
[2018-11-25 22:52] LABS: ARTERIAL BLD GAS O2 SATURATION 92.8 % (90-98.9); ARTERIAL BLOOD GAS BASE EXCESS -7.5 meq/l (-2-2); ARTERIAL BLOOD GAS PCO2 54.2 mmHg (35-45); ARTERIAL BLOOD GAS PO2 78.2 mmHg (80-100)
[2018-11-25 22:54] LABS: ALLENS TEST POSITIVE
[2018-11-25 22:58] LABS: ARTERIAL BLOOD GAS pH 7.19 (7.35-7.45)
[2018-11-26] MEDS ORDERED: fentaNYL CITRATE 250 MCG/5 ML VIAL ONE ×3 (01:19→17:20)
[2018-11-26] MEDS ORDERED: DEXTROSE 5%-WATER - 50 ML IVPB ONE ×3 (01:19→17:21)
[2018-11-26] MEDS ORDERED: PIPERACILLIN/TAZOBACTAM 3.375 GM VIAL IVPB ONE ×2 (01:19→09:35)
[2018-11-26] MEDS: PIPERACILLIN/TAZOB 3.375 GM 3.375 GM in DEXTROSE 5%-WATER - 50 ML IVPB SCH ×2 (01:32→10:50)
[2018-11-26] MEDS ORDERED: HEPARIN NA (PORCINE) 5,000 UNITS/ML 1ML VIAL IVPUSH PRN (05:04)
[2018-11-26] MEDS: HEPARIN - 25,000 UNIT in SODIUM CHLORIDE 495 ML IV SCH (06:07)
[2018-11-26] MEDS: METHADONE HCL 40 MG DISPERSABLE TABLET PO SCH (06:08)
[2018-11-26] MEDS: INSULIN SLIDING SCALE (NOVOLOG) 1 VIAL SQ SCH ×4 (06:08→21:41)
[2018-11-26] MEDS: GABAPENTIN 100 MG CAPSULE (FP) PO SCH ×3 (06:08→21:47)
[2018-11-26 06:53] LABS: BASO % 0.1 % (0-2.0); HEMATOCRIT 26.1 % (35.4-49); HEMOGLOBIN 8.8 GM/dL (11.7-16.9); LYMPH % 6.7 % (8-40); MCH 28.8 pg (25.7-33.7); MCHC 33.8 g/dl (32.0-35.9); MEAN PLT VOLUME 7.3 fl (7.5-11.1); MONO % 3.6 % (3.8-10.2); NEUT % 89.6 % (42.8-82.8); PLATELET COUNT 192 K/MM3 (134-434); RBC 3.07 M/mm3 (4.00-5.60); RDW 17.9 % (11.9-15.9); WHITE BLOOD COUNT 4.7 K/mm3 (4.0-10.0)
[2018-11-26 07:06] LABS: ALBUMIN 2.4 g/dl (3.4-5.0); ALK PHOS 97 U/L (45-117); ANION GAP 7 MMOL/L (8-16); BILIRUBIN,TOTAL 0.2 mg/dL (0.2-1); BLOOD UREA NITROGEN 42 mg/dL (7-18); CHLORIDE 99 mmol/L (98-107); CO2 24 mmol/L (21-32); CREATININE 1.9 mg/dL (0.55-1.3); GLUCOSE,RANDOM 168 mg/dL (74-106); LDH 297 U/L (87-246); MAGNESIUM 1.8 mg/dL (1.8-2.4); PHOSPHOROUS 4.3 mg/dL (2.5-4.9); POTASSIUM 5.8 mmol/L (3.5-5.1); SGOT/AST 61 U/L (15-37); SGPT/ALT 19 U/L (13-61); SODIUM 130 mmol/L (136-145); TOT PROT 5.3 g/dl (6.4-8.2); URIC ACID 4.9 mg/dL (2.6-7.2)
[2018-11-26 07:24] LABS: CALCIUM 6.5 mg/dL (8.5-10.1)
[2018-11-26] MEDS ORDERED: oxyCODONE HCL 5 MG TABLET PO PRN (08:54)
[2018-11-26] MEDS ORDERED: ACETAMINOPHEN 325 MG TABLET (FP) PO PRN (08:54)
[2018-11-26] MEDS ORDERED: DOCUSATE SODIUM 100 MG CAPSULE (FP) PO PRN (08:54)
[2018-11-26 09:07] LABS: ARTERIAL BLD GAS O2 SATURATION 98.9 % (90-98.9); ARTERIAL BLOOD GAS BASE EXCESS -6.9 meq/l (-2-2); ARTERIAL BLOOD GAS PCO2 47.9 mmHg (35-45); ARTERIAL BLOOD GAS pH 7.24 (7.35-7.45)
[2018-11-26 09:11] LABS: ALLENS TEST POSITIVE
[2018-11-26] MEDS: PROPOFOL 1,000,000 MCG/100 ML VIAL IVPB SCH ×2 (09:49→21:47)
[2018-11-26] MEDS: FENTANYL INJECTION 500 MCG in DEXTROSE 5%-WATER - 90 ML IVPB SCH ×2 (09:51→17:25)
[2018-11-26] MEDS ORDERED: HEPARIN NA (PORCINE) 5,000 UNITS/ML 1ML VIAL SQ SCH (10:00)
[2018-11-26] MEDS ORDERED: FUROSEMIDE 40 MG/4 ML INJECTABLE VIAL ONE (10:36)
--- NOTE | 2018-11-26 11:36 | PN ---
Progress Note (short form) - Note Progress Note: Pulm/CCM Pt seen and examined in ICU 24HR: -admitted by O/n resident--> flash pulm edema, tropenemia without EKG chagnes -cxr with pulm edema pattern, BP better controlled -awake and following commands this am -being diuresed -afebrile -repeat trop pending -hyponatremia stable ABG Results ABG pH 7.24 (7.35-7.45) L* 11/26/18 08:59 ABG pCO2 at Pt Temp 47.9 mmHg (35-45) H 11/26/18 08:59 ABG pO2 at Pt Temp 240.0 mmHg (80-100) H* 11/26/18 08:59 ABG HCO3 19.7 meq/L (22-26) L 11/26/18 08:59 ABG O2 Sat (Measured) 98.9 % (90-98.9) 11/26/18 08:59 ABG O2 Content 13.2 % vol (15-22) L 11/26/18 08:59 ABG Base Excess -6.9 meq/l (-2-2) L 11/26/18 08:59 Vital Signs Temp 98.6 F 11/26/18 06:00 Pulse 62 11/26/18 08:58 Resp 18 11/26/18 08:58 BP 115/70 11/26/18 06:00 Pulse Ox 100 11/26/18 08:58 Intake & Output 11/25/18 11/25/18 11/26/18 11:59 23:59 11:59 Intake Total 300 850 760 Output Total 600 900 Balance 300 250 -140 Weight 108.21 kg Intake: IV 10 460 DIPRIVAN - 1,000,000 mcg 240 In 100 ml @ 15 MCG/KG/MIN 9.349 mls/hr IVPB TITR YAKOV Rx#:[id number] Heparin - 25,000 Unit In 20 Normal Saline - 495 ml @ 1,000 UNIT/HR 20 mls/hr IV TITR YAKOV Rx#: [id number] Sublimaze Injection - 500 200 Mcg In D5w - 90 ml @ 25 MCG/HR 5 mls/hr IVPB TITR YAKOV Rx#:[id number] saline 10 IVPB 100 300 Oral 200 840 Output: Urine 600 900 Massey 100 900 Void 500 Other: Voiding Method Toilet Indwelling Catheter # Unmeasured Voids Void 2 3 Bowel Movement No # Bowel Movements 1 Weight [facility] Active Medications Acetaminophen (Tylenol -) 650 mg PO Q6H PRN PRN Reason: FEVER Albuterol/Ipratropium (Duoneb -) 1 amp NEB Q6H PRN PRN Reason: SHORTNESS OF BREATH Allopurinol (Zyloprim -) 300 mg PO DAILY [facility] Aspirin (Ecotrin -) 81 mg PO DAILY [facility] Buspirone HCl (Buspar -) 15 mg PO BID [facility] Calcium Carbonate/Cholecalciferol (Os-Kyler 500+D -) 1 tab PO DAILY [facility] Chlorhexidine Gluconate (Hibiclens For Decolonization -) 1 applic TP HS [facility] Docusate Sodium (Colace -) 100 mg PO BID PRN PRN Reason: CONSTIPATION Furosemide (Lasix Injection -) 40 mg IVPUSH DAILY [facility] Gabapentin (Neurontin -) 100 mg PO TID [facility] Heparin Sodium (Porcine) (Heparin -) 5,000 unit IVPUSH PRN PRN PRN Reason: Heparin Heparin Sodium (Porcine) (Heparin -) 1,000 unit IVPUSH PRN PRN PRN Reason: Heparin Piperacillin Sod/Tazobactam (Sod 3.375 gm/ Dextrose) 50 mls @ 100 mls/hr IVPB Q8H-IV YAKOV; Protocol Fentanyl 500 mcg/ Dextrose 100 mls @ 5 mls/hr IVPB TITR [facility]; Protocol Stop: 11/26/18 21:14 Last Admin: 11/26/18 09:51 Dose: 100 mcg/hr, 20 mls/hr Heparin Sodium (Porcine) 25, (000 unit/ Sodium Chloride) 500 mls @ 20 mls/hr IV TITR [facility]; Protocol Last Admin: 11/26/18 06:07 Dose: 1,000 unit/hr, 20 mls/hr Propofol (Diprivan -) 1,000,000 mcg in 100 mls @ 9.349 mls/hr IVPB TITR [facility]; Protocol Last Admin: 11/26/18 09:49 Dose: 15 mcg/kg/min, 9.349 mls/hr Insulin Aspart (Novolog Vial Sliding Scale -) 1 vial SQ ACHS [facility]; Protocol Insulin Detemir (Levemir Vial) 40 units SQ HS [facility] Methadone HCl (Dolophine -) 80 mg PO DAILY@0600 [facility] Mupirocin (Bactroban Ointment (For Decolonization) -) 1 applic NS BID [facility] Stop: 11/30/18 21:59 Oxycodone HCl (Roxicodone -) 10 mg PO Q6H PRN PRN Reason: PAIN LEVEL 7 - 10 Tiotropium [place] (Spiriva Respimat) 2 puff IH DAILY [facility] Valacyclovir HCl (Valtrex -) 500 mg PO DAILY [facility] 11/26/18 05:30 11/26/18 05:30 PE: Gen: awake, alert, following commands, vented, no distress HEENT: PERRL, EOMI PULM: few crackles CV: RRR, no m/r/g appreciated ABD: soft lightly distended EXT; trace edema ASSESSMENT/PLAN: Patient is a 63 year old male who presented for abdominal pain with constipation and was found to have severe constipation and hyponatremia and admitted for further monitoring and management. Rapid response was called on patient for respiratory distress and was then intubated and transferred to ICU for further monitoring and management. NEURO- sedated for intubation, now awake -Hx ofOpioid Use -Currently on Methadone, cont home dose PULMONARY: Acute Hypoxic Hypercapneic Respiratory Failire 2/2 pulm edema -Lasix for goal O>I 1-1.5L -Duo-nebs given -SBT -IV Zosyn and Vancomycin ordered , ID following -Maintain 02 >90% #COPD -On Spiriva at home -Will put Duo-Neb PRN -Continue to monitor 02 sat and maintain >90% CARDIOLOGY- hx of HTN, tropenemia without acute EKG changes likely demand, not plaque rupture -diuresis -serial trop -on heparin gtt, cards for recs, ? asa -statin when taking PO -Hold anti-htn medications -Continue to monitor BP -consider repeat TTE given severity of acute pulm edema, worsen HF?? ENDOCRINOLOGY-IDDM -BGM -ISS GASTROENTEROLOGY -NPO for now HEMATOLOGY/ONCOLOGY-Multiple Myeloma , -Followed by Dr. Grady -Last chemotherapy (11/18/18) on velcade/cytoxan/dexamethasone F/E/N -n standing fluids -Hypocalcemia , corrected for alb is ok -NPO Prophylaxis -Heparin for DVT -Protonix for GI Disposition -Full code. Daughter and at bedside and daughter is the HCP -ICU monitoring [place] ACNP [id number]
--- NOTE | 2018-11-26 11:48 | PN ---
Progress Note (short form) - Note Progress Note: ID CONSULT DICTATED RESP FAILURE PULMONARY EDEMA R/O HCAP MYELOMA S/P CHEMO 11/18 DM HX DIABETIC FOOT INFECTION/ OSTEOMYELITIS CKD HX MRSA AWAIT C/S VENTILATORY SUPPORT EMPIRIC ZOSYN + STAT DOSE VANCOMYCIN
[2018-11-26] MEDS ORDERED: VANCOMYCIN 1 GRAM (PRE-DOCKED) 1,000 MG/250 ML BAG IVPB ONE (12:00)
[2018-11-26] MEDS ORDERED: PROPOFOL 200 MG/20 ML VIAL IVPUSH ONE (12:08)
--- NOTE | 2018-11-26 12:24 | CON.CARD ---
Consult Consult Specialty:: cardiology Referred by:: Edgardo Reason for Consultation:: Pulmonary edema - History of Present Illness Chief Complaint: Shortness of breath History of Present Illness: The patient is a 63-year-old man, with a history of diabetes, hypertension, hyperlipidemia, peripheral vascular disease, hepatitis C, opioid abuse, on methadone, multiple myeloma, who was admitted with nausea vomiting and abdominal pain with constipation. Developed acute respiratory distress, was intubated and transferred to the ICU. Troponins found to be elevated. There were ECG changes. The patient is alert. Remains intubated. Agitated. Systolic blood pressure in the 160s. No chest pains. - History Source History Provided By: Medical Record Limitations to Obtaining History: Intubated - Past Medical History SLOT FLOOR PERSON: Yes: Peripheral Neuropathy (stocking glove distribution related to DM) Cardio/Vascular: Yes: CHF, HTN, Hyperlipdemia Pulmonary: Yes: Asthma, Other (left chest tube for rib fracture related pneumothorax afte a fall) Gastrointestinal: Yes: Constipation Hepatobiliary: Yes: Hepatitis C (cured several years ago with Dr Bedolla) Renal/: Yes: Renal Inusuff Infectious Disease: Yes: Other (Hepatitis C cured) Psych: Yes: Depression Musculoskeletal: Yes: Chronic low back pain, Other (multiple thoracolumbar vertebral fractures) Endocrine: Yes: Diabetes Mellitus Dermatology: Yes: Other (varicose veins) Additional Medical History: Laser therapy for diabetic retinopathy - Past Surgical History Past Surgical History: Yes: Amputation (5th digit R foot), Tonsillectomy - Alcohol/Substance Use Hx Alcohol Use: Yes (rare glass of wine, drank heavily over 10 years ago) History of Substance Use: reports: None (snorted), Cocaine, Heroin (sorteh) - Smoking History Smoking history: Former smoker Have you smoked in the past 12 months: No If you are a former smoker, when did you quit?: 1996 - Social History Usual Living Arrangement: With Spouse ADL: Independent 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 History of Recent Travel: Yes (to [place] in past 2 weeks ) Home Medications - Allergies Allergies/Adverse Reactions: Allergies Allergy/AdvReac Type Severity Reaction Status Date / Time No Known Allergies Allergy Verified 10/29/18 03:32 - Home Medications Home Medications: Ambulatory Orders Albuterol Sulfate Inhaler - [Ventolin HFA Inhaler -] 2 puff PO QID PRN 06/07/15 Aspirin [Aspirin EC] 81 mg PO DAILY 06/07/15 Enalapril Maleate [Vasotec -] 20 mg PO DAILY 06/07/15 Insulin Glargine,Hum.rec.anlog [Lantus (10mL VIAL) -] 40 unit SQ HS 06/07/15 Salmeterol/Fluticasone [Advair 100Mcg/50Mcg -] 1 puff PO BID 06/07/15 Sertraline HCl 50 mg PO DAILY 06/07/15 metFORMIN HCL [Metformin HCl] 1,000 mg PO BID 06/07/15 Acetaminophen [Tylenol .Regular Strength -] 650 mg PO Q6H PRN #0 tablet Methadone [Dolophine -] 70 mg PO DAILY 01/30/16 Buspirone HCl 15 mg PO BID 07/22/18 Metoprolol Tartrate [Lopressor -] 25 mg PO BID #60 tablet 07/27/18 Nifedipine ER [Procardia XL -] 30 mg PO DAILY #30 tab.er.24 07/27/18 Family Disease History - Family Disease History Family Disease History: CA: Mother (asthma, breast cancer ), Other: Father ( 90 natural causes), Mother, Brother ( alcoholic cirrhosis) Review of Systems - Review of Systems Eyes: reports: No Symptoms HENT: reports: No Symptoms Neck: reports: No Symptoms Cardiovascular: reports: Shortness of Breath Respiratory: reports: SOB Gastrointestinal: reports: Abdominal Pain, Bloating Genitourinary: reports: No Symptoms Breasts: reports: No Symptoms Reported Musculoskeletal: reports: No Symptoms Integumentary: reports: No Symptoms Neurological: reports: No Symptoms Endocrine: reports: No Symptoms Hematology/Lymphatic: reports: No Symptoms Psychiatric: reports: No Symptoms Vital Signs: Vital Signs Temperature 98.6 F 11/26/18 06:00 Pulse Rate 62 11/26/18 08:58 Respiratory Rate 24 H 11/26/18 11:00 Blood Pressure 115/70 11/26/18 06:00 O2 Sat by Pulse Oximetry (%) 100 11/26/18 08:58 Constitutional: Yes: Anxious, Diaphoresis, Mild Distress Eyes: Yes: WNL, Conjunctiva Clear, EOM Intact HENT: Yes: WNL, Atraumatic, Normocephalic Neck: Yes: WNL Respiratory: Yes: Intubated, Mechanically Ventilated Gastrointestinal: Yes: Normal Bowel Sounds, Soft, Abdomen, Obese Renal/: Yes: WNL Cardiovascular: Yes: Regular Rate and Rhythm, Tachycardia JVD: No Carotid Bruit: No PMI: Non-Displaced Heart Sounds: Yes: S1, S2 Murmur: Yes: Systolic Murmur, Grade 2 Musculoskeletal: Yes: WNL Extremities: Yes: WNL Edema: No Peripheral Pulses WNL: Yes Integumentary: Yes: WNL Neurological: Yes: WNL ...Motor Strength: WNL - Other Data Labs, Other Data: CBC, BMP 11/26/18 05:30 11/26/18 05:30 INR, PTT INR 1.05 (0.83-1.09) 11/25/18 20:00 Fibrinogen > 500.0 mg/dL (238-498) H 11/25/18 20:00 Troponin, BNP 11/25/18 11/26/18 20:00 01:10 Troponin I 0.23 H 11.70 H* Troponin, BNP 11/25/18 11/26/18 20:00 01:10 Troponin I 0.23 H 11.70 H* Assessment/Plan The patient is a 63-year-old man, with a history of diabetes, hypertension, hyperlipidemia, peripheral vascular disease, hepatitis C, opioid abuse, on methadone, multiple myeloma, who was admitted with nausea vomiting and abdominal pain with constipation. Developed acute respiratory distress, was intubated and transferred to the ICU. Troponins found to be elevated. There were ECG changes. The patient is alert. Remains intubated. Agitated. Systolic blood pressure in the 160s. No chest pains. Please continue intravenous Lasix as currently. Troponins are still trending up. Please continue heparin. Target PTT 6070. Would start intravenous labetalol. Up titrate for good beta blockade, if the blood pressure allows. Would keep the patient sedated and intubated. Remains fluid overloaded. Treat hyperkalemia. Watch hemoglobin trend. There is a drop. Conservative cardiac care in this setting. We'll follow with you.
--- NOTE | 2018-11-26 12:38 | CONS ---
DATE OF CONSULTATION: DATE OF DICTATION: 11/26/2018 HISTORY OF PRESENT ILLNESS: The patient is a 63-year-old diabetic male recently diagnosed with multiple myeloma, status post chemotherapy on Sunday, November 18, 2018, now evaluated for possible pneumonia. He was admitted to the hospital on November 20, 2018, with complaints of abdominal distention, constipation and nausea, vomiting. He was treated for constipation in the hospital. A CAT scan of the abdomen and pelvis was negative for acute pathology. It did show pathological fractures of vertebral bodies. While having a bowel movement he developed acute respiratory distress. A rapid response was called. He was treated with inhaled bronchodilator and intravenous Solu-Medrol. Patient's respiratory status worsened to the point where he was intubated and transferred to the intensive care unit. His course was complicated by hypertensive crisis. Chest x-ray shows bilateral pulmonary congestion consistent with pulmonary edema versus possible pneumonia. He is presently intubated in the intensive care unit. He is receiving diuretic therapy. He is awake and alert. No reports of any recent febrile illness or recent respiratory tract infection. He is diabetic and recently diagnosed with multiple myeloma. He has a history of diabetic foot infections, osteomyelitis and MRSA. PAST MEDICAL HISTORY: Positive for multiple myeloma diagnosed approximately 1 month ago, hypertension, hyperlipidemia, diabetes mellitus, peripheral vascular disease, diabetic foot ulcer, osteomyelitis of the left foot, chronic kidney disease, history of positive wound culture, MRSA. ALLERGIES: No known allergies. MEDICATIONS: Tylenol, albuterol, allopurinol, aspirin, Buspar, etomidate, fentanyl, Lasix, Neurontin, methadone, propofol. SOCIAL HISTORY: He resides in the community. He is a former smoker. Positive history of heroin and cocaine use. HIV status not documented. SYSTEMS REVIEW:Neurologic: No loss of consciousness, seizure activity, focal weakness. Cardiac: As per HPI. Respiratory: As per HPI. Gastrointestinal: Positive for constipation, nausea, vomiting. Genitourinary: Negative for urinary tract infection. LABORATORY DATA: White count 4.7, 89 neutrophils, hematocrit 26.1, platelet count 192. Creatinine 1.9. Urinalysis: Less than 1 white cell. Cultures are pending. Chest x-ray shows pulmonary vascular congestion bilaterally. Previous wound culture is positive for MRSA and group B strep. PHYSICAL EXAMINATION: General: He is awake and alert, on a respirator. He is in no acute respiratory distress. Vital Signs: Temperature is 98.6, blood pressure is 115/70, pulse 66, regular, respiration 20 per minute. HEENT: Sclerae are anicteric. Patient is orally intubated. Cardiac: Heart sounds S1, S2. Lungs: Air entry bilaterally. Abdomen: Obese, soft, nontender. Extremities: Positive for lower extremity edema. He is status post amputation of the right 5th toe. There is a dry ulcer present on the left plantar surface which does not appear infected. IMPRESSION: 1. Acute respiratory failure. 2. Probable pulmonary edema, rule out hospital-acquired pneumonia. 3. Multiple myeloma, status post chemotherapy 1 week ago. 4. Diabetes mellitus. 5. History of diabetic foot infection/osteomyelitis. 6. Chronic kidney disease. 7. History of methicillin-resistant Staphylococcus aureus. RECOMMENDATIONS: Await culture results. Continue ventilatory support and diuretic therapy. Empiric antibiotic coverage for possible hospital-acquired pneumonia in this diabetic patient with myeloma, status post chemotherapy with Zosyn. Will give stat dose vancomycin for empiric MRSA coverage. HIV testing if status post documented. Will follow. Critical care time spent 35 minutes. Thank you for the kind referral. RUDI HAYNES M.D. [id number]
[2018-11-26] MEDS ORDERED: SODIUM POLYSTYRENE SULFONATE 15 GM/60 ML BOTTLE PO ONE (13:22)
--- NOTE | 2018-11-26 15:05 | PN ---
Progress Note (short form) - Note Progress Note: covering dr herndon pt in ICU problems 1. hyppnatremia 2. CKD 3. nausea and vomiting 4. htn 5. DM 6. 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 multiple myeloma 9. anemia 10. proteinuria 11. hyperkalemia Last Vital Signs Temp Pulse Resp BP Pulse Ox 98 F 79 18 92/69 100 11/26/18 10:00 11/26/18 14:00 11/26/18 14:00 11/26/18 14:00 11/26/18 08:58 Intake & Output 11/25/18 11/26/18 11/26/18 23:59 07:59 15:59 Intake Total 760 Output Total 863 561 3944 Balance -600 -140 -1000 Weight 238 lb 9 oz CBC, BMP 11/26/18 05:30 11/26/18 05:30 IMP Hyperkalemia - being addressed, will get kayexalate kim on chronic- creat trending up again Plan -continue saline for bp and volume expansion start feeding as soon as feasible
[2018-11-26] MEDS: TIOTROPIUM BROMIDE 2.5 MCG (SPIRIVA) RESPIMAT INHALER IH SCH (17:12)
[2018-11-26] MEDS: ALLOPURINOL 300 MG TABLET (FP) PO SCH (17:17)
[2018-11-26] MEDS: ASPIRIN COATED 81 MG TABLET.EC PO SCH (17:18)
[2018-11-26] MEDS: CALCIUM 500MG/VIT-D 200 UNITS COMBO TABLET (FP) PO SCH (17:18)
[2018-11-26] MEDS: busPIRone HCL 5 MG TABLET PO SCH ×2 (17:18→21:47)
[2018-11-26] MEDS ORDERED: PIPERACILLIN/TAZOBACTAM 2.25 GM VIAL IVPB ONE (17:21)
[2018-11-26] MEDS ORDERED: PT OWN MED DRAWER 7, Y5N ONE ×2 (17:21→21:46)
[2018-11-26] MEDS: valACYclovir HCL 500 MG TABLET (FP) PO SCH (17:23)
[2018-11-26] MEDS: PIPERACILLIN/TAZOB 2.25 GM 2.25 GM in DEXTROSE 5%-WATER - 50 ML IVPB SCH (17:24)
[2018-11-26] MEDS: HEPARIN NA (PORCINE) 5,000 UNITS/ML 1ML VIAL IVPUSH PRN (17:25)
--- NOTE | 2018-11-26 19:26 | PN ---
Progress Note, Physician Chief Complaint: Multiple myeloma History of Present Illness: Sedated. No acute events today - Current Medication List Current Medications: Active Medications Acetaminophen (Tylenol -) 650 mg PO Q6H PRN PRN Reason: FEVER Albuterol/Ipratropium (Duoneb -) 1 amp NEB Q6H PRN PRN Reason: SHORTNESS OF BREATH Allopurinol (Zyloprim -) 300 mg PO DAILY [facility] Last Admin: 11/26/18 17:17 Dose: Not Given Aspirin (Ecotrin -) 81 mg PO DAILY [facility] Last Admin: 11/26/18 17:18 Dose: Not Given Buspirone HCl (Buspar -) 15 mg PO BID [facility] Last Admin: 11/26/18 17:18 Dose: Not Given Calcium Carbonate/Cholecalciferol (Os-Kyler 500+D -) 1 tab PO DAILY [facility] Last Admin: 11/26/18 17:18 Dose: Not Given Chlorhexidine Gluconate (Hibiclens For Decolonization -) 1 applic TP HS [facility] Docusate Sodium (Colace -) 100 mg PO BID PRN PRN Reason: CONSTIPATION Furosemide (Lasix Injection -) 40 mg IVPUSH DAILY [facility] Gabapentin (Neurontin -) 100 mg PO TID [facility] Last Admin: 11/26/18 17:18 Dose: 100 mg Heparin Sodium (Porcine) (Heparin -) 5,000 unit IVPUSH PRN PRN PRN Reason: Heparin Heparin Sodium (Porcine) (Heparin -) 1,000 unit IVPUSH PRN PRN PRN Reason: Heparin Last Admin: 11/26/18 17:25 Dose: 1,000 unit Fentanyl 500 mcg/ Dextrose 100 mls @ 5 mls/hr IVPB TITR [facility]; Protocol Stop: 11/26/18 21:14 Last Admin: 11/26/18 17:25 Dose: 100 mcg/hr, 20 mls/hr Heparin Sodium (Porcine) 25, (000 unit/ Sodium Chloride) 500 mls @ 20 mls/hr IV TITR [facility]; Protocol Last Titration: 11/26/18 16:00 Dose: 1,100 unit/hr, 22 mls/hr Propofol (Diprivan -) 1,000,000 mcg in 100 mls @ 9.349 mls/hr IVPB TITR [facility]; Protocol Last Admin: 11/26/18 09:49 Dose: 15 mcg/kg/min, 9.349 mls/hr Piperacillin Sod/Tazobactam (Sod 2.25 gm/ Dextrose) 50 mls @ 100 mls/hr IVPB Q8H-IV [facility]; Protocol Last Admin: 11/26/18 17:24 Dose: 100 mls/hr Insulin Aspart (Novolog Vial Sliding Scale -) 1 vial SQ ACHS [facility]; Protocol Last Admin: 11/26/18 17:54 Dose: Not Given Insulin Detemir (Levemir Vial) 40 units SQ HS [facility] Methadone HCl (Dolophine -) 80 mg PO DAILY@0600 [facility] Mupirocin (Bactroban Ointment (For Decolonization) -) 1 applic NS BID [facility] Stop: 11/30/18 21:59 Oxycodone HCl (Roxicodone -) 10 mg PO Q6H PRN PRN Reason: PAIN LEVEL 7 - 10 Tiotropium [place] (Spiriva Respimat) 2 puff IH DAILY [facility] Last Admin: 11/26/18 17:12 Dose: Not Given Valacyclovir HCl (Valtrex -) 500 mg PO DAILY [facility] Last Admin: 11/26/18 17:23 Dose: 500 mg - Objective Vital Signs: Vital Signs Temperature 97.8 F 11/26/18 18:00 Pulse Rate 74 11/26/18 18:00 Respiratory Rate 18 11/26/18 18:33 Blood Pressure 95/59 L 11/26/18 18:00 O2 Sat by Pulse Oximetry (%) 100 11/26/18 08:58 Constitutional: Yes: No Distress Eyes: Yes: Conjunctiva Clear Cardiovascular: Yes: Regular Rate and Rhythm Respiratory: Yes: Mechanically Ventilated Gastrointestinal: Yes: Soft Extremities: Yes: WNL Labs: CBC, BMP 11/26/18 05:30 11/26/18 05:30 INR, PTT INR 1.05 (0.83-1.09) 11/25/18 20:00 Fibrinogen > 500.0 mg/dL (238-498) H 11/25/18 20:00 Assessment/Plan 63M with HTN, DM, PVD, ? COPD, CKD, recently diagnosed myeloma, with vertebral fractures s/p RT to l-spine and l. acetabular fx, on velcade/cytoxan/ dexamethasone/zometa (last 11/18/18), admitted with severe constipation and hyponatremia. Hospital course c/b acute respiratory failure, in the setting of severe hypertension, requiring intubation. Thought to have flash pulmonary edema vs. ARDS. Being diuresed. MM treatment on hold.
[2018-11-26 20:54] LABS: ALBUMIN 2.4 g/dl (3.4-5.0); ALK PHOS 87 U/L (45-117); ANION GAP 10 MMOL/L (8-16); BILIRUBIN,TOTAL 0.2 mg/dL (0.2-1); BLOOD UREA NITROGEN 42 mg/dL (7-18); CHLORIDE 101 mmol/L (98-107); CO2 23 mmol/L (21-32); CREATININE 1.9 mg/dL (0.55-1.3); GLUCOSE,RANDOM 135 mg/dL (74-106); POTASSIUM 4.3 mmol/L (3.5-5.1); SGOT/AST 50 U/L (15-37); SGPT/ALT 20 U/L (13-61); SODIUM 133 mmol/L (136-145); TOT PROT 5.2 g/dl (6.4-8.2)
[2018-11-26 20:55] LABS: CALCIUM 6.6 mg/dL (8.5-10.1)
--- NOTE | 2018-11-26 21:06 | PN ---
Progress Note, Physician Chief Complaint: Acute respiratory failure Constipation Pulmonary vascular congestion History of Present Illness: Pt transferred to ICU after being intubated for respiratory distress on Med surg. Remains on IV sedation. CXR shows pulmonary congestion Seen by [employer]te[employer]+ cardiology+ ID+pulmonary troponins elevated, trending up - Current Medication List Current Medications: Active Medications Acetaminophen (Tylenol -) 650 mg PO Q6H PRN PRN Reason: FEVER Albuterol/Ipratropium (Duoneb -) 1 amp NEB Q6H PRN PRN Reason: SHORTNESS OF BREATH Allopurinol (Zyloprim -) 300 mg PO DAILY [facility] Last Admin: 11/26/18 17:17 Dose: Not Given Aspirin (Ecotrin -) 81 mg PO DAILY [facility] Last Admin: 11/26/18 17:18 Dose: Not Given Buspirone HCl (Buspar -) 15 mg PO BID [facility] Last Admin: 11/26/18 17:18 Dose: Not Given Calcium Carbonate/Cholecalciferol (Os-Kyler 500+D -) 1 tab PO DAILY [facility] Last Admin: 11/26/18 17:18 Dose: Not Given Chlorhexidine Gluconate (Hibiclens For Decolonization -) 1 applic TP HS [facility] Docusate Sodium (Colace -) 100 mg PO BID PRN PRN Reason: CONSTIPATION Furosemide (Lasix Injection -) 40 mg IVPUSH DAILY [facility] Gabapentin (Neurontin -) 100 mg PO TID [facility] Last Admin: 11/26/18 17:18 Dose: 100 mg Heparin Sodium (Porcine) (Heparin -) 5,000 unit IVPUSH PRN PRN PRN Reason: Heparin Heparin Sodium (Porcine) (Heparin -) 1,000 unit IVPUSH PRN PRN PRN Reason: Heparin Last Admin: 11/26/18 17:25 Dose: 1,000 unit Fentanyl 500 mcg/ Dextrose 100 mls @ 5 mls/hr IVPB TITR [facility]; Protocol Stop: 11/26/18 21:14 Last Admin: 11/26/18 17:25 Dose: 100 mcg/hr, 20 mls/hr Heparin Sodium (Porcine) 25, (000 unit/ Sodium Chloride) 500 mls @ 20 mls/hr IV TITR [facility]; Protocol Last Titration: 11/26/18 16:00 Dose: 1,100 unit/hr, 22 mls/hr Propofol (Diprivan -) 1,000,000 mcg in 100 mls @ 9.349 mls/hr IVPB TITR [facility]; Protocol Last Admin: 11/26/18 09:49 Dose: 15 mcg/kg/min, 9.349 mls/hr Piperacillin Sod/Tazobactam (Sod 2.25 gm/ Dextrose) 50 mls @ 100 mls/hr IVPB Q8H-IV [facility]; Protocol Last Admin: 11/26/18 17:24 Dose: 100 mls/hr Insulin Aspart (Novolog Vial Sliding Scale -) 1 vial SQ ACHS [facility]; Protocol Last Admin: 11/26/18 17:54 Dose: Not Given Insulin Detemir (Levemir Vial) 40 units SQ HS [facility] Methadone HCl (Dolophine -) 80 mg PO DAILY@0600 [facility] Mupirocin (Bactroban Ointment (For Decolonization) -) 1 applic NS BID [facility] Stop: 11/30/18 21:59 Oxycodone HCl (Roxicodone -) 10 mg PO Q6H PRN PRN Reason: PAIN LEVEL 7 - 10 Tiotropium [place] (Spiriva Respimat) 2 puff IH DAILY [facility] Last Admin: 11/26/18 17:12 Dose: Not Given Valacyclovir HCl (Valtrex -) 500 mg PO DAILY [facility] Last Admin: 11/26/18 17:23 Dose: 500 mg - Objective Vital Signs: Vital Signs Temperature 97.8 F 11/26/18 18:00 Pulse Rate 75 11/26/18 20:00 Respiratory Rate 19 11/26/18 20:33 Blood Pressure 107/63 11/26/18 20:00 O2 Sat by Pulse Oximetry (%) 97 11/26/18 20:33 Constitutional: Yes: Well Nourished, No Distress, Calm, Obese Cardiovascular: Yes: Regular Rate and Rhythm Respiratory: Yes: Mechanically Ventilated Gastrointestinal: Yes: Normal Bowel Sounds, Soft, Abdomen, Obese Extremities: Yes: WNL Edema: Yes Edema: LLE: 3+, RLE: 3+ Peripheral Pulses WNL: Yes Neurological: Yes: Other (sedated) Labs: CBC, BMP 11/26/18 05:30 11/26/18 19:58 INR, PTT INR 1.05 (0.83-1.09) 11/25/18 20:00 Fibrinogen > 500.0 mg/dL (238-498) H 11/25/18 20:00 Problem List - Problems (1) Respiratory failure Assessment/Plan: -mechanical vent -pulmonary consult -bronchodilators -r/o HCAP -IV abx -ID on board Code(s): J96.90 - RESPIRATORY FAILURE, UNSP, UNSP W HYPOXIA OR HYPERCAPNIA (2) Elevated troponin Assessment/Plan: monitor trend -EKG unchanged -cardiology -cardiac monitoring -heparin drip -Echo Code(s): R74.8 - ABNORMAL LEVELS OF OTHER SERUM ENZYMES (3) Constipation Assessment/Plan: -mineral oil enema Code(s): K59.00 - CONSTIPATION, UNSPECIFIED Qualifiers: Constipation type: unspecified constipation type Qualified Code(s): K59.00 - Constipation, unspecified (4) Diabetes Assessment/Plan: -bgm ac hs -Check A1c -Insulin: Novolog+Levemir -RD on board -endocrinology consult Code(s): E11.9 - TYPE 2 DIABETES MELLITUS WITHOUT COMPLICATIONS Qualifiers: Diabetes mellitus type: type 2 (5) Multiple myeloma Assessment/Plan: -Oncology on board Code(s): C90.00 - MULTIPLE MYELOMA NOT HAVING ACHIEVED REMISSION (6) Anemia Assessment/Plan: -guaiac negative, would repeat -H/H trending down -check Iron, thyroid profile, B12, FA -monitor trend Code(s): D64.9 - ANEMIA, UNSPECIFIED (7) CKD (chronic kidney disease) Assessment/Plan: -improved -nephrology on board -monitor trend Code(s): N18.9 - CHRONIC KIDNEY DISEASE, UNSPECIFIED (8) Pulmonary congestion Assessment/Plan: -Furosemide 40 mg IVP daily -serial CXR -Cardiology+Pulmonary on board Code(s): R09.89 - OTH SYMPTOMS AND SIGNS INVOLVING THE CIRC AND RESP SYSTEMS Assessment/Plan see problem list Initiate Tube feeds
[2018-11-26] MEDS: MUPIROCIN 2% TOPICAL OINTMENT FOR DECOLONIZATION NS SCH (21:40)
[2018-11-26] MEDS: INSULIN (LEVEMIR) 100 UNITS/ML UNITS SQ SCH (21:40)
[2018-11-26] MEDS: CHLORHEXIDINE GLUCONATE 4% CLEANSER FOR DECOLONIZATION TP SCH (21:41)
[2018-11-26] MEDS ORDERED: PROPOFOL 1,000,000 MCG/100 ML VIAL ONE (21:45)
--- NOTE | 2018-11-26 22:00 | EKG ---
Test Reason : Blood Pressure : / mmHG Vent. Rate : 060 BPM Atrial Rate : 060 BPM P-R Int : 180 ms QRS Dur : 084 ms QT Int : 484 ms P-R-T Axes : 054 026 060 degrees QTc Int : 484 ms NORMAL SINUS RHYTHM NONSPECIFIC ST AND T WAVE ABNORMALITY PROLONGED QT ABNORMAL ECG WHEN COMPARED WITH ECG OF 25-NOV-2018 19:50, NO SIGNIFICANT CHANGE WAS FOUND Confirmed by DOROTHY SMITH, KRANTHI ([id number]) on 11/26/2018 9:59:57 PM Referred By: Gatito HAAS Confirmed By:KRANTHI DE LA CRUZ MD
--- NOTE | 2018-11-26 22:01 | EKG ---
Test Reason : Blood Pressure : / mmHG Vent. Rate : 066 BPM Atrial Rate : 066 BPM P-R Int : 184 ms QRS Dur : 078 ms QT Int : 468 ms P-R-T Axes : 056 025 075 degrees QTc Int : 490 ms NORMAL SINUS RHYTHM NONSPECIFIC ST ABNORMALITY PROLONGED QT ABNORMAL ECG WHEN COMPARED WITH ECG OF 25-NOV-2018 19:50, NO SIGNIFICANT CHANGE WAS FOUND Confirmed by KRANTHI DE LA CRUZ MD ([id number]) on 11/26/2018 10:01:30 PM Referred By: Confirmed By:KRANTHI DE LAC RUZ MD
--- NOTE | 2018-11-26 22:04 | EKG ---
Test Reason : Blood Pressure : / mmHG Vent. Rate : 083 BPM Atrial Rate : 083 BPM P-R Int : 186 ms QRS Dur : 076 ms QT Int : 384 ms P-R-T Axes : 056 024 033 degrees QTc Int : 451 ms NORMAL SINUS RHYTHM NONSPECIFIC ST ABNORMALITY ABNORMAL ECG WHEN COMPARED WITH ECG OF 20-NOV-2018 08:17, Confirmed by KRANTHI DE LA CRUZ MD ([id number]) on 11/26/2018 10:04:10 PM Referred By: Confirmed By:KRANTHI DE LA CRUZ MD
[2018-11-27] MEDS ORDERED: fentaNYL CITRATE 250 MCG/5 ML VIAL ONE ×4 (00:51→19:01)
[2018-11-27] MEDS ORDERED: PROPOFOL 1,000,000 MCG/100 ML VIAL ONE ×4 (00:51→19:49)
[2018-11-27] MEDS: MIDAZOLAM HCL 2 MG/2 ML SINGLE DOSE VIAL IVPUSH PRN ×2 (01:56→03:58)
[2018-11-27] MEDS ORDERED: PIPERACILLIN/TAZOBACTAM 2.25 GM VIAL IVPB ONE ×3 (02:44→18:02)
[2018-11-27] MEDS ORDERED: DEXTROSE 5%-WATER - 50 ML IVPB ONE ×3 (02:44→18:02)
[2018-11-27] MEDS: HEPARIN - 25,000 UNIT in SODIUM CHLORIDE 495 ML IV SCH ×2 (02:48→06:41)
[2018-11-27] MEDS: PIPERACILLIN/TAZOB 2.25 GM 2.25 GM in DEXTROSE 5%-WATER - 50 ML IVPB SCH ×3 (02:48→18:05)
[2018-11-27] MEDS: FENTANYL INJECTION 500 MCG in DEXTROSE 5%-WATER - 90 ML IVPB SCH ×3 (06:41→19:04)
[2018-11-27] MEDS: METHADONE HCL 40 MG DISPERSABLE TABLET PO SCH (06:41)
[2018-11-27] MEDS: GABAPENTIN 100 MG CAPSULE (FP) PO SCH ×3 (06:41→22:39)
[2018-11-27] MEDS: INSULIN SLIDING SCALE (NOVOLOG) 1 VIAL SQ SCH ×4 (06:42→22:39)
--- NOTE | 2018-11-27 08:29 | PN ---
Progress Note (short form) - Note Progress Note: Pulm/CCM Pt seen and examined in ICU 24HR: -Trop peaked and now downtrending -diuresis ongoing, out 1 L yesterday, more lasix this am -failed SBT -still no BM since 11/24 Vital Signs Temp 98.1 F 11/27/18 06:00 Pulse 83 11/27/18 06:00 Resp 18 11/27/18 07:09 BP 154/87 11/27/18 06:00 Pulse Ox 97 11/26/18 20:33 Intake & Output 11/26/18 11/26/18 11/27/18 11:59 23:59 11:59 Intake Total 760 360 557 Output Total 900 1400 900 Balance -140 -1040 -343 Weight 108.21 kg 107.7 kg Intake: IV 460 360 507 DIPRIVAN - 1,000,000 mcg 240 In 100 ml @ 15 MCG/KG/MIN 9.349 mls/hr IVPB TITR [facility] Rx#:[id number] DIPRIVAN - 1,000,000 mcg 150 217 In 100 ml @ 15 MCG/KG/MIN 9.349 mls/hr IVPB TITR [facility] Rx#:[id number] Heparin - 25,000 Unit In 20 110 150 Normal Saline - 495 ml @ 1,000 UNIT/HR 20 mls/hr IV TITR [facility] Rx#: [id number] Sublimaze Injection - 500 200 100 140 Mcg In D5w - 90 ml @ 25 MCG/HR 5 mls/hr IVPB TITR [facility] Rx#:[id number] IVPB 300 50 Output: Urine 900 1400 900 Massey 900 1400 900 Other: Voiding Method Indwelling Catheter Indwelling Catheter Weight Measurement Method Built in [facility] Built in [facility] Current Medications Acetaminophen (Tylenol -) 650 mg PO Q6H PRN PRN Reason: FEVER Albuterol/Ipratropium (Duoneb -) 1 amp NEB Q6H PRN PRN Reason: SHORTNESS OF BREATH Allopurinol (Zyloprim -) 300 mg PO DAILY [facility] Last Admin: 11/26/18 17:17 Dose: Not Given Aspirin (Ecotrin -) 81 mg PO DAILY [facility] Last Admin: 11/26/18 17:18 Dose: Not Given Buspirone HCl (Buspar -) 15 mg PO BID [facility] Last Admin: 11/26/18 21:47 Dose: 15 mg Calcium Carbonate/Cholecalciferol (Os-Kyler 500+D -) 1 tab PO DAILY [facility] Last Admin: 11/26/18 17:18 Dose: Not Given Chlorhexidine Gluconate (Hibiclens For Decolonization -) 1 applic TP HS [facility] Last Admin: 11/26/18 21:41 Dose: 1 applic Docusate Sodium (Colace -) 100 mg PO BID PRN PRN Reason: CONSTIPATION Furosemide (Lasix Injection -) 40 mg IVPUSH DAILY [facility] Gabapentin (Neurontin -) 100 mg PO TID [facility] Last Admin: 11/27/18 06:41 Dose: 100 mg Heparin Sodium (Porcine) (Heparin -) 5,000 unit IVPUSH PRN PRN PRN Reason: Heparin Heparin Sodium (Porcine) (Heparin -) 1,000 unit IVPUSH PRN PRN PRN Reason: Heparin Last Admin: 11/26/18 17:25 Dose: 1,000 unit Heparin Sodium (Porcine) 25, (000 unit/ Sodium Chloride) 500 mls @ 20 mls/hr IV TITR [facility]; Protocol Last Admin: 11/27/18 06:41 Dose: Not Given Propofol (Diprivan -) 1,000,000 mcg in 100 mls @ 9.349 mls/hr IVPB TITR [facility]; Protocol Last Admin: 11/26/18 21:47 Dose: 50 mcg/kg/min, 31.162 mls/hr Piperacillin Sod/Tazobactam (Sod 2.25 gm/ Dextrose) 50 mls @ 100 mls/hr IVPB Q8H-IV [facility]; Protocol Last Admin: 11/27/18 02:48 Dose: 100 mls/hr Fentanyl 500 mcg/ Dextrose 100 mls @ 10 mls/hr IVPB TITR [facility]; Protocol Last Admin: 11/27/18 06:41 Dose: 100 mcg/hr, 20 mls/hr Insulin Aspart (Novolog Vial Sliding Scale -) 1 vial SQ ACHS [facility]; Protocol Last Admin: 11/27/18 06:42 Dose: Not Given Insulin Detemir (Levemir Vial) 40 units SQ HS [facility] Last Admin: 11/26/18 21:40 Dose: Not Given Methadone HCl (Dolophine -) 80 mg PO DAILY@0600 [facility] Last Admin: 11/27/18 06:41 Dose: 80 mg Mupirocin (Bactroban Ointment (For Decolonization) -) 1 applic NS BID [facility] Stop: 11/30/18 21:59 Last Admin: 11/26/18 21:40 Dose: 1 applic Oxycodone HCl (Roxicodone -) 10 mg PO Q6H PRN PRN Reason: PAIN LEVEL 7 - 10 Tiotropium [place] (Spiriva Respimat) 2 puff IH DAILY [facility] Last Admin: 11/26/18 17:12 Dose: Not Given Valacyclovir HCl (Valtrex -) 500 mg PO DAILY [facility] Last Admin: 11/26/18 17:23 Dose: 500 mg CBCD WBC 4.7 K/mm3 (4.0-10.0) 11/26/18 05:30 RBC 3.07 M/mm3 (4.00-5.60) L 11/26/18 05:30 Hgb 8.8 GM/dL (11.7-16.9) L 11/26/18 05:30 Hct 26.1 % (35.4-49) L D 11/26/18 05:30 MCV 85.0 fl (80-96) 11/26/18 05:30 MCHC 33.8 g/dl (32.0-35.9) 11/26/18 05:30 RDW 17.9 % (11.9-15.9) H 11/26/18 05:30 Plt Count 192 K/MM3 (134-434) D 11/26/18 05:30 MPV 7.3 fl (7.5-11.1) L 11/26/18 05:30 CMP Sodium 133 mmol/L (136-145) L 11/26/18 19:58 Potassium 4.3 mmol/L (3.5-5.1) 11/26/18 19:58 Chloride 101 mmol/L (98-107) 11/26/18 19:58 Carbon Dioxide 23 mmol/L (21-32) 11/26/18 19:58 Anion Gap 10 MMOL/L (8-16) 11/26/18 19:58 BUN 42 mg/dL (7-18) H 11/26/18 19:58 Creatinine 1.9 mg/dL (0.55-1.3) H 11/26/18 19:58 Creat Clearance w eGFR 35.76 (>60) 11/26/18 19:58 Random Glucose 135 mg/dL (74-106) H 11/26/18 19:58 Calcium 6.6 mg/dL (8.5-10.1) L* 11/26/18 19:58 Total Bilirubin 0.2 mg/dL (0.2-1) 11/26/18 19:58 AST 50 U/L (15-37) H 11/26/18 19:58 ALT 20 U/L (13-61) 11/26/18 19:58 Alkaline Phosphatase 87 U/L (45-117) 11/26/18 19:58 Total Protein 5.2 g/dl (6.4-8.2) L 11/26/18 19:58 Albumin 2.4 g/dl (3.4-5.0) L 11/26/18 19:58 CARDIAC ENZYMES Creatine Kinase 123 U/L (26-308) 11/25/18 20:00 Troponin I 10.00 ng/ml (0.00-0.05) H* 11/26/18 19:58 PE: Gen: sedated, vented HEENT: PERRL, EOMI PULM: coarse crackles CV: RRR, no m/r/g appreciated ABD: soft lightly distended, hypoactive BS EXT; LE dependent edema ASSESSMENT/PLAN: Patient is a 63 year old male who presented for abdominal pain with constipation and was found to have severe constipation and hyponatremia and admitted for further monitoring and management. Rapid response was called on patient for respiratory distress and was then intubated and transferred to ICU for further monitoring and management. NEURO- sedated for intubation, now awake -Hx ofOpioid Use -Currently on Methadone, cont home dose to minimize IV opioid PULMONARY: Acute Hypoxic Hypercapneic Respiratory Failire 2/2 pulm edema -Lasix for goal O>I 1-1.5L -Duo-nebs given -daily SBT -IV Zosyn and Vancomycin, ID following, less likely infectious but given severity coverin -Maintain 02 >90 -Will put Duo-Neb PRN -Continue to monitor 02 sat and maintain >90% CARDIOLOGY- hx of HTN, tropenemia without acute EKG changes likely demand, not plaque rupture, Peak 18, now downtrending -cont diuresis -trop downtrend no reason -on heparin gtt, cards for recs, ? asa -statin once taking PO -Hold anti-htn medications -Continue to monitor BP - repeat TTE given severity of acute pulm edema, worsen HF?? ENDOCRINOLOGY-IDDM -BGM -ISS Renal: DARIO on CKD -monitor electrolytes -cont diuresis GASTROENTEROLOGY , no BM x 3 day -NPO for now, pending possible extubation -will increase bowel regimen and hold methadone HEMATOLOGY/ONCOLOGY-Multiple Myeloma , -Followed by Dr. Grady -Last chemotherapy (11/18/18) on velcade/cytoxan/dexamethasone F/E/N -no standing fluids, ongoing diuresis -Hypocalcemia , corrected for alb is ok -if no planned extubation would start TF in am Prophylaxis -Heparin for DVT -Protonix for GI Disposition -Full code disucssed at length with family. -ICU monitoring Teo ACNP [id number]
[2018-11-27] MEDS ORDERED: PT OWN MED DRAWER 7, Y5N ONE (09:48)
[2018-11-27] MEDS: MUPIROCIN 2% TOPICAL OINTMENT FOR DECOLONIZATION NS SCH ×2 (10:00→22:38)
[2018-11-27] MEDS ORDERED: FUROSEMIDE 40 MG/4 ML INJECTABLE VIAL IVPUSH ONE (10:00)
[2018-11-27] MEDS: ASPIRIN COATED 81 MG TABLET.EC PO SCH (10:04)
[2018-11-27] MEDS: FUROSEMIDE 40 MG/4 ML INJECTABLE VIAL IVPUSH SCH (10:06)
[2018-11-27] MEDS: valACYclovir HCL 500 MG TABLET (FP) PO SCH (10:08)
[2018-11-27] MEDS: busPIRone HCL 5 MG TABLET PO SCH ×2 (10:08→22:33)
[2018-11-27] MEDS: ALLOPURINOL 300 MG TABLET (FP) PO SCH (10:09)
[2018-11-27] MEDS: CALCIUM 500MG/VIT-D 200 UNITS COMBO TABLET (FP) PO SCH (10:09)
[2018-11-27] MEDS: TIOTROPIUM BROMIDE 2.5 MCG (SPIRIVA) RESPIMAT INHALER IH SCH (10:17)
[2018-11-27] MEDS: PROPOFOL 1,000,000 MCG/100 ML VIAL IVPB SCH ×3 (10:20→16:34)
[2018-11-27] MEDS: ASPIRIN 81 MG CHEWABLE TABLETS PO SCH (10:24)
--- NOTE | 2018-11-27 10:30 | PN ---
Progress Note, Physician History of Present Illness: AWAKE ON VENTILATOR NO ACUTE DISTRESS AFEBRILE WBC WNL - Current Medication List Current Medications: Active Medications Acetaminophen (Tylenol -) 650 mg PO Q6H PRN PRN Reason: FEVER Albuterol/Ipratropium (Duoneb -) 1 amp NEB Q6H PRN PRN Reason: SHORTNESS OF BREATH Allopurinol (Zyloprim -) 300 mg PO DAILY [facility] Last Admin: 11/27/18 10:09 Dose: 300 mg Aspirin (Asa -) 81 mg PO DAILY [facility] Last Admin: 11/27/18 10:24 Dose: 81 mg Buspirone HCl (Buspar -) 15 mg PO BID [facility] Last Admin: 11/27/18 10:08 Dose: 15 mg Calcium Carbonate/Cholecalciferol (Os-Kyler 500+D -) 1 tab PO DAILY [facility] Last Admin: 11/27/18 10:09 Dose: 1 tab Chlorhexidine Gluconate (Hibiclens For Decolonization -) 1 applic TP HS [facility] Last Admin: 11/26/18 21:41 Dose: 1 applic Docusate Sodium (Colace -) 100 mg PO BID PRN PRN Reason: CONSTIPATION Furosemide (Lasix Injection -) 40 mg IVPUSH DAILY [facility] Last Admin: 11/27/18 10:06 Dose: 40 mg Gabapentin (Neurontin -) 100 mg PO TID [facility] Last Admin: 11/27/18 06:41 Dose: 100 mg Heparin Sodium (Porcine) (Heparin -) 5,000 unit IVPUSH PRN PRN PRN Reason: Heparin Heparin Sodium (Porcine) (Heparin -) 1,000 unit IVPUSH PRN PRN PRN Reason: Heparin Last Admin: 11/26/18 17:25 Dose: 1,000 unit Heparin Sodium (Porcine) 25, (000 unit/ Sodium Chloride) 500 mls @ 20 mls/hr IV TITR [facility]; Protocol Last Admin: 11/27/18 06:41 Dose: Not Given Propofol (Diprivan -) 1,000,000 mcg in 100 mls @ 9.349 mls/hr IVPB TITR [facility]; Protocol Last Admin: 11/27/18 10:20 Dose: 50 mcg/kg/min, 31.162 mls/hr Piperacillin Sod/Tazobactam (Sod 2.25 gm/ Dextrose) 50 mls @ 100 mls/hr IVPB Q8H-IV [facility]; Protocol Last Admin: 11/27/18 10:00 Dose: 100 mls/hr Fentanyl 500 mcg/ Dextrose 100 mls @ 10 mls/hr IVPB TITR [facility]; Protocol Last Admin: 11/27/18 06:41 Dose: 100 mcg/hr, 20 mls/hr Insulin Aspart (Novolog Vial Sliding Scale -) 1 vial SQ ACHS [facility]; Protocol Last Admin: 11/27/18 06:42 Dose: Not Given Insulin Detemir (Levemir Vial) 40 units SQ HS [facility] Last Admin: 11/26/18 21:40 Dose: Not Given Methadone HCl (Dolophine -) 80 mg PO DAILY@0600 [facility] Last Admin: 11/27/18 06:41 Dose: 80 mg Mupirocin (Bactroban Ointment (For Decolonization) -) 1 applic NS BID [facility] Stop: 11/30/18 21:59 Last Admin: 11/26/18 21:40 Dose: 1 applic Oxycodone HCl (Roxicodone -) 10 mg PO Q6H PRN PRN Reason: PAIN LEVEL 7 - 10 Tiotropium [place] (Spiriva Respimat) 2 puff IH DAILY [facility] Last Admin: 11/27/18 10:17 Dose: Not Given Valacyclovir HCl (Valtrex -) 500 mg PO DAILY [facility] Last Admin: 11/27/18 10:08 Dose: 500 mg - Objective Vital Signs: Vital Signs Temperature 98.1 F 11/27/18 06:00 Pulse Rate 75 11/27/18 08:35 Respiratory Rate 18 11/27/18 08:35 Blood Pressure 120/66 11/27/18 08:00 O2 Sat by Pulse Oximetry (%) 100 11/27/18 08:35 Constitutional: Yes: No Distress Eyes: Yes: Conjunctiva Clear Cardiovascular: Yes: Regular Rate and Rhythm, S1, S2 Respiratory: Yes: Mechanically Ventilated Gastrointestinal: Yes: Normal Bowel Sounds, Soft. No: Tenderness Edema: Yes Edema: LLE: 1+, RLE: 1+ Labs: CBC, BMP 11/26/18 05:30 11/26/18 19:58 INR, PTT INR 1.05 (0.83-1.09) 11/25/18 20:00 Fibrinogen > 500.0 mg/dL (238-498) H 11/25/18 20:00 Assessment/Plan RESPIRATORY FAILURE PULMONARY EDEMA R/O HCAP MYELOMA DM CKD HX MRSA AWAIT C/S CONTINUE VENTILATORY SUPPORT EMPIRIC ZOSYN
[2018-11-27] MEDS ORDERED: FUROSEMIDE 40 MG/4 ML INJECTABLE VIAL IVPUSH SCH (10:41)
[2018-11-27] MEDS ORDERED: MINERAL OIL ENEMA 133 ML ENEMA PR ONE (12:31)
[2018-11-27] MEDS: POLYETHYLENE GLYCOL 3350 119 GM BTL PO SCH (12:48)
--- NOTE | 2018-11-27 13:22 | PN ---
Progress Note, Physician Chief Complaint: Shortness of breath History of Present Illness: The patient is a 63-year-old man, with a history of diabetes, hypertension, hyperlipidemia, peripheral vascular disease, hepatitis C, opioid abuse, on methadone, multiple myeloma, who was admitted with nausea vomiting and abdominal pain with constipation. Developed acute respiratory distress, was intubated and transferred to the ICU. Troponins found to be elevated. There were ECG changes. - Current Medication List Current Medications: Active Medications Acetaminophen (Tylenol -) 650 mg PO Q6H PRN PRN Reason: FEVER Albuterol/Ipratropium (Duoneb -) 1 amp NEB Q6H PRN PRN Reason: SHORTNESS OF BREATH Allopurinol (Zyloprim -) 300 mg PO DAILY [facility] Last Admin: 11/27/18 10:09 Dose: 300 mg Aspirin (Asa -) 81 mg PO DAILY [facility] Last Admin: 11/27/18 10:24 Dose: 81 mg Buspirone HCl (Buspar -) 15 mg PO BID [facility] Last Admin: 11/27/18 10:08 Dose: 15 mg Calcium Carbonate/Cholecalciferol (Os-Kyler 500+D -) 1 tab PO DAILY [facility] Last Admin: 11/27/18 10:09 Dose: 1 tab Chlorhexidine Gluconate (Hibiclens For Decolonization -) 1 applic TP HS [facility] Last Admin: 11/26/18 21:41 Dose: 1 applic Docusate Sodium (Colace -) 100 mg PO BID PRN PRN Reason: CONSTIPATION Furosemide (Lasix Injection -) 40 mg IVPUSH DAILY [facility] Last Admin: 11/27/18 10:06 Dose: 40 mg Gabapentin (Neurontin -) 100 mg PO TID [facility] Last Admin: 11/27/18 06:41 Dose: 100 mg Heparin Sodium (Porcine) (Heparin -) 5,000 unit IVPUSH PRN PRN PRN Reason: Heparin Heparin Sodium (Porcine) (Heparin -) 1,000 unit IVPUSH PRN PRN PRN Reason: Heparin Last Admin: 11/26/18 17:25 Dose: 1,000 unit Heparin Sodium (Porcine) 25, (000 unit/ Sodium Chloride) 500 mls @ 20 mls/hr IV TITR [facility]; Protocol Last Admin: 11/27/18 06:41 Dose: Not Given Propofol (Diprivan -) 1,000,000 mcg in 100 mls @ 9.349 mls/hr IVPB TITR [facility]; Protocol Last Admin: 11/27/18 10:20 Dose: 50 mcg/kg/min, 31.162 mls/hr Piperacillin Sod/Tazobactam (Sod 2.25 gm/ Dextrose) 50 mls @ 100 mls/hr IVPB Q8H-IV [facility]; Protocol Last Admin: 11/27/18 10:00 Dose: 100 mls/hr Fentanyl 500 mcg/ Dextrose 100 mls @ 10 mls/hr IVPB TITR [facility]; Protocol Last Admin: 11/27/18 13:10 Dose: 100 mcg/hr, 20 mls/hr Insulin Aspart (Novolog Vial Sliding Scale -) 1 vial SQ ACHS [facility]; Protocol Last Admin: 11/27/18 06:42 Dose: Not Given Insulin Detemir (Levemir Vial) 40 units SQ HS [facility] Last Admin: 11/26/18 21:40 Dose: Not Given Methadone HCl (Dolophine -) 80 mg PO DAILY@0600 [facility] Last Admin: 11/27/18 06:41 Dose: 80 mg Mupirocin (Bactroban Ointment (For Decolonization) -) 1 applic NS BID [facility] Stop: 11/30/18 21:59 Last Admin: 11/26/18 21:40 Dose: 1 applic Polyethylene Glycol (Miralax (For Daily Use) -) 17 gm PO DAILY [facility] Last Admin: 11/27/18 12:48 Dose: 17 grams Tiotropium [place] (Spiriva Respimat) 2 puff IH DAILY [facility] Last Admin: 11/27/18 10:17 Dose: Not Given Valacyclovir HCl (Valtrex -) 500 mg PO DAILY [facility] Last Admin: 11/27/18 10:08 Dose: 500 mg - Objective Vital Signs: Vital Signs Temperature 98.1 F 11/27/18 06:00 Pulse Rate 98 H 11/27/18 10:00 Respiratory Rate 22 H 11/27/18 13:18 Blood Pressure 147/99 11/27/18 10:00 O2 Sat by Pulse Oximetry (%) 100 11/27/18 08:35 Constitutional: Yes: Obese, Other (Intubated and sedated) Eyes: Yes: WNL, Conjunctiva Clear HENT: Yes: WNL, Atraumatic, Normocephalic Neck: Yes: WNL, Trachea Midline Cardiovascular: Yes: WNL, Regular Rate and Rhythm, Tachycardia Respiratory: Yes: Intubated, Mechanically Ventilated Gastrointestinal: Yes: WNL, Normal Bowel Sounds, Soft ...Rectal Exam: Yes: Deferred Musculoskeletal: Yes: WNL Extremities: Yes: WNL Edema: Yes Edema: LLE: 1+, RLE: 1+ Peripheral Pulses: Left Radial: 1+, Right Radial: 1+, Left Doralis Pedis: 1+, Right Dorsalis Pedis: 1+, Left Femoral: 1+, Right Femoral: 1+ Integumentary: Yes: WNL Neurological: Yes: Other (Sedated) Labs: CBC, BMP 11/26/18 05:30 11/26/18 19:58 INR, PTT INR 1.05 (0.83-1.09) 11/25/18 20:00 Fibrinogen > 500.0 mg/dL (238-498) H 11/25/18 20:00 Assessment/Plan The patient is a 63-year-old man, with a history of diabetes, hypertension, hyperlipidemia, peripheral vascular disease, hepatitis C, opioid abuse, on methadone, multiple myeloma, who was admitted with nausea vomiting and abdominal pain with constipation. Developed acute respiratory distress, was intubated and transferred to the ICU. Troponins found to be elevated. There were ECG changes. The patient remains intubated and sedated. Fluid overloaded. Would continue intravenous Lasix. Consider Lasix drip. Continue sedation. Conservative cardiac care.
--- NOTE | 2018-11-27 13:49 | CONSULT ---
Consult - text type - Consultation Consultation Note: NEUROLOGY CONSULTATION is greatly appreciated. Seen in coverage for Dr. Dial. Case discussed with RN. This 63 yo man with h/o HTN, DM, Chol, PVD, ASHD, Hep C (s/p Harvoni), IVDA (on methadone) and multiple myeloma. Admitted for Constipation and GI bleeding. Developed respiratory arrest and intubated likely due to acute PA and pulmonary edema. Now on Propofol and fentanyl. Yesterday was allowed to wake up and was reportedly oriented and following commands. TED: Intubated. No bruits. Neck supple. Atrophic changes both legs and feet. No DP pulses. NEURO: + shallow spontaneous respirations. Opens eyes to name. No response to visual threat [id number]. Full EOM's to Doll's head Sluggish corneals B/L Flaccid, areflexic. Plantars silent Grimaces to pinch all fours. IMP: Severe, B/L cerebral dysfunction without obvious focality Toxic-Metabolic encephalopathy due to Coma inducing drugs. SUGGEST: Continue current management. Dr. Dial or I will reexamine Pt when off Propofol and fentanyl. Thank you very much, Jabier Bell MD
--- NOTE | 2018-11-27 15:05 | PN ---
Progress Note, Physician Chief Complaint: Acute respiratory failure Constipation Pulmonary vascular congestion History of Present Illness: Pt transferred to ICU after being intubated for respiratory distress on Med surg. Remains on IV sedation. 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 by Plastics Design Engineer+ cardiology+ ID+oncology troponins elevated, trending down - Current Medication List Current Medications: Active Medications Acetaminophen (Tylenol -) 650 mg PO Q6H PRN PRN Reason: FEVER Albuterol/Ipratropium (Duoneb -) 1 amp NEB Q6H PRN PRN Reason: SHORTNESS OF BREATH Allopurinol (Zyloprim -) 300 mg PO DAILY [facility] Last Admin: 11/27/18 10:09 Dose: 300 mg Aspirin (Asa -) 81 mg PO DAILY [facility] Last Admin: 11/27/18 10:24 Dose: 81 mg Buspirone HCl (Buspar -) 15 mg PO BID [facility] Last Admin: 11/27/18 10:08 Dose: 15 mg Calcium Carbonate/Cholecalciferol (Os-Kyler 500+D -) 1 tab PO DAILY [facility] Last Admin: 11/27/18 10:09 Dose: 1 tab Chlorhexidine Gluconate (Hibiclens For Decolonization -) 1 applic TP HS [facility] Last Admin: 11/26/18 21:41 Dose: 1 applic Docusate Sodium (Colace -) 100 mg PO BID PRN PRN Reason: CONSTIPATION Furosemide (Lasix Injection -) 40 mg IVPUSH DAILY [facility] Last Admin: 11/27/18 10:06 Dose: 40 mg Gabapentin (Neurontin -) 100 mg PO TID [facility] Last Admin: 11/27/18 06:41 Dose: 100 mg Heparin Sodium (Porcine) (Heparin -) 5,000 unit IVPUSH PRN PRN PRN Reason: Heparin Heparin Sodium (Porcine) (Heparin -) 1,000 unit IVPUSH PRN PRN PRN Reason: Heparin Last Admin: 11/26/18 17:25 Dose: 1,000 unit Heparin Sodium (Porcine) 25, (000 unit/ Sodium Chloride) 500 mls @ 20 mls/hr IV TITR [facility]; Protocol Last Admin: 11/27/18 06:41 Dose: Not Given Propofol (Diprivan -) 1,000,000 mcg in 100 mls @ 9.349 mls/hr IVPB TITR [facility]; Protocol Last Admin: 11/27/18 13:36 Dose: 50 mcg/kg/min, 31.162 mls/hr Piperacillin Sod/Tazobactam (Sod 2.25 gm/ Dextrose) 50 mls @ 100 mls/hr IVPB Q8H-IV [facility]; Protocol Last Admin: 11/27/18 10:00 Dose: 100 mls/hr Fentanyl 500 mcg/ Dextrose 100 mls @ 10 mls/hr IVPB TITR [facility]; Protocol Last Admin: 11/27/18 13:10 Dose: 100 mcg/hr, 20 mls/hr Insulin Aspart (Novolog Vial Sliding Scale -) 1 vial SQ ACHS [facility]; Protocol Last Admin: 11/27/18 06:42 Dose: Not Given Insulin Detemir (Levemir Vial) 40 units SQ HS [facility] Last Admin: 11/26/18 21:40 Dose: Not Given Methadone HCl (Dolophine -) 80 mg PO DAILY@0600 [facility] Last Admin: 11/27/18 06:41 Dose: 80 mg Mupirocin (Bactroban Ointment (For Decolonization) -) 1 applic NS BID [facility] Stop: 11/30/18 21:59 Last Admin: 11/26/18 21:40 Dose: 1 applic Polyethylene Glycol (Miralax (For Daily Use) -) 17 gm PO DAILY [facility] Last Admin: 11/27/18 12:48 Dose: 17 grams Tiotropium [place] (Spiriva Respimat) 2 puff IH DAILY [facility] Last Admin: 11/27/18 10:17 Dose: Not Given Valacyclovir HCl (Valtrex -) 500 mg PO DAILY [facility] Last Admin: 11/27/18 10:08 Dose: 500 mg - Objective Vital Signs: Vital Signs Temperature 98.1 F 11/27/18 06:00 Pulse Rate 98 H 11/27/18 10:00 Respiratory Rate 22 H 11/27/18 13:18 Blood Pressure 147/99 11/27/18 10:00 O2 Sat by Pulse Oximetry (%) 100 11/27/18 08:35 Constitutional: Yes: Well Nourished, No Distress, Calm Cardiovascular: Yes: Regular Rate and Rhythm Respiratory: Yes: Mechanically Ventilated Gastrointestinal: Yes: Normal Bowel Sounds, Soft, Abdomen, Obese Extremities: Yes: WNL Edema: Yes Edema: LLE: 3+, RLE: 3+ Peripheral Pulses WNL: Yes Neurological: Yes: Other (sedated) Labs: CBC, BMP 11/26/18 05:30 11/26/18 19:58 INR, PTT INR 1.05 (0.83-1.09) 11/25/18 20:00 Fibrinogen > 500.0 mg/dL (238-498) H 11/25/18 20:00 Problem List - Problems (1) Anemia Assessment/Plan: -guaiac negative, would repeat -H/H trending down -check Iron, thyroid profile, B12, FA -monitor trend Code(s): D64.9 - ANEMIA, UNSPECIFIED (2) CKD (chronic kidney disease) Assessment/Plan: -improved -nephrology on board -monitor trend Code(s): N18.9 - CHRONIC KIDNEY DISEASE, UNSPECIFIED (3) Constipation Assessment/Plan: -mineral oil enema Code(s): K59.00 - CONSTIPATION, UNSPECIFIED Qualifiers: Constipation type: unspecified constipation type Qualified Code(s): K59.00 - Constipation, unspecified (4) Diabetes Assessment/Plan: -bgm ac hs -Check A1c -Insulin: Novolog+Levemir -RD on board -endocrinology consult Code(s): E11.9 - TYPE 2 DIABETES MELLITUS WITHOUT COMPLICATIONS Qualifiers: Diabetes mellitus type: type 2 (5) Elevated troponin Assessment/Plan: monitor trend -EKG unchanged -cardiology -cardiac monitoring -heparin drip -Echo Code(s): R74.8 - ABNORMAL LEVELS OF OTHER SERUM ENZYMES (6) Multiple myeloma Assessment/Plan: -Oncology on board Code(s): C90.00 - MULTIPLE MYELOMA NOT HAVING ACHIEVED REMISSION (7) Pulmonary congestion Assessment/Plan: -Furosemide 40 mg IVP daily -serial CXR -Cardiology+Pulmonary on board Code(s): R09.89 - OTH SYMPTOMS AND SIGNS INVOLVING THE CIRC AND RESP SYSTEMS (8) Respiratory failure Assessment/Plan: -mechanical vent -pulmonary consult -bronchodilators -r/o HCAP -IV abx -ID on board Code(s): J96.90 - RESPIRATORY FAILURE, UNSP, UNSP W HYPOXIA OR HYPERCAPNIA Assessment/Plan see problem list
--- NOTE | 2018-11-27 17:37 | PN ---
Progress Note (short form) - Note Progress Note: covering dr herndon pt in ICU problems 1. hyponatremia 2. CKD 3. nausea and vomiting 4. htn 5. DM 6. 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 multiple myeloma 9. anemia 10. proteinuria 11. s/p hyperkalemia Current Medications Acetaminophen (Tylenol -) 650 mg PO Q6H PRN PRN Reason: FEVER Albuterol/Ipratropium (Duoneb -) 1 amp NEB Q6H PRN PRN Reason: SHORTNESS OF BREATH Allopurinol (Zyloprim -) 300 mg PO DAILY [facility] Last Admin: 11/27/18 10:09 Dose: 300 mg Aspirin (Asa -) 81 mg PO DAILY [facility] Last Admin: 11/27/18 10:24 Dose: 81 mg Buspirone HCl (Buspar -) 15 mg PO BID [facility] Last Admin: 11/27/18 10:08 Dose: 15 mg Calcium Carbonate/Cholecalciferol (Os-Kyler 500+D -) 1 tab PO DAILY [facility] Last Admin: 11/27/18 10:09 Dose: 1 tab Chlorhexidine Gluconate (Hibiclens For Decolonization -) 1 applic TP HS [facility] Last Admin: 11/26/18 21:41 Dose: 1 applic Docusate Sodium (Colace -) 100 mg PO BID PRN PRN Reason: CONSTIPATION Furosemide (Lasix Injection -) 40 mg IVPUSH DAILY [facility] Last Admin: 11/27/18 10:06 Dose: 40 mg Gabapentin (Neurontin -) 100 mg PO TID [facility] Last Admin: 11/27/18 16:33 Dose: 100 mg Heparin Sodium (Porcine) (Heparin -) 5,000 unit IVPUSH PRN PRN PRN Reason: Heparin Heparin Sodium (Porcine) (Heparin -) 1,000 unit IVPUSH PRN PRN PRN Reason: Heparin Last Admin: 11/26/18 17:25 Dose: 1,000 unit Heparin Sodium (Porcine) 25, (000 unit/ Sodium Chloride) 500 mls @ 20 mls/hr IV TITR [facility]; Protocol Last Admin: 11/27/18 06:41 Dose: Not Given Propofol (Diprivan -) 1,000,000 mcg in 100 mls @ 9.349 mls/hr IVPB TITR [facility]; Protocol Last Admin: 11/27/18 16:34 Dose: 50 mcg/kg/min, 31.162 mls/hr Piperacillin Sod/Tazobactam (Sod 2.25 gm/ Dextrose) 50 mls @ 100 mls/hr IVPB Q8H-IV [facility]; Protocol Last Admin: 11/27/18 10:00 Dose: 100 mls/hr Fentanyl 500 mcg/ Dextrose 100 mls @ 10 mls/hr IVPB TITR [facility]; Protocol Last Admin: 11/27/18 13:10 Dose: 100 mcg/hr, 20 mls/hr Insulin Aspart (Novolog Vial Sliding Scale -) 1 vial SQ ACHS [facility]; Protocol Last Admin: 11/27/18 06:42 Dose: Not Given Insulin Detemir (Levemir Vial) 40 units SQ HS [facility] Last Admin: 11/26/18 21:40 Dose: Not Given Methadone HCl (Dolophine -) 80 mg PO DAILY@0600 [facility] Last Admin: 11/27/18 06:41 Dose: 80 mg Mupirocin (Bactroban Ointment (For Decolonization) -) 1 applic NS BID [facility] Stop: 11/30/18 21:59 Last Admin: 11/26/18 21:40 Dose: 1 applic Polyethylene Glycol (Miralax (For Daily Use) -) 17 gm PO DAILY [facility] Last Admin: 11/27/18 12:48 Dose: 17 grams Tiotropium [place] (Spiriva Respimat) 2 puff IH DAILY [facility] Last Admin: 11/27/18 10:17 Dose: Not Given Valacyclovir HCl (Valtrex -) 500 mg PO DAILY [facility] Last Admin: 11/27/18 10:08 Dose: 500 mg Last Vital Signs Temp Pulse Resp BP Pulse Ox 98.5 F 92 H 18 128/72 100 11/27/18 16:00 11/27/18 16:00 11/27/18 16:00 11/27/18 16:00 11/27/18 08:35 CBC, BMP 11/26/18 05:30 11/26/18 19:58 CBC, BMP 11/26/18 05:30 11/26/18 05:30 IMP resp failure heart failure Hyperkalemia - being addressed, will get kayexalate kim on chronic- creat seems to be plateauing Plan -continue saline for bp and volume expansion start feeding as soon as feasible
--- NOTE | 2018-11-27 19:00 | PN ---
Progress Note, Physician Chief Complaint: Multiple myeloma History of Present Illness: Less sedated. Following commands. No acute events today - Current Medication List Current Medications: Active Medications Acetaminophen (Tylenol -) 650 mg PO Q6H PRN PRN Reason: FEVER Albuterol/Ipratropium (Duoneb -) 1 amp NEB Q6H PRN PRN Reason: SHORTNESS OF BREATH Allopurinol (Zyloprim -) 300 mg PO DAILY [facility] Last Admin: 11/27/18 10:09 Dose: 300 mg Aspirin (Asa -) 81 mg PO DAILY [facility] Last Admin: 11/27/18 10:24 Dose: 81 mg Buspirone HCl (Buspar -) 15 mg PO BID [facility] Last Admin: 11/27/18 10:08 Dose: 15 mg Calcium Carbonate/Cholecalciferol (Os-Kyler 500+D -) 1 tab PO DAILY [facility] Last Admin: 11/27/18 10:09 Dose: 1 tab Chlorhexidine Gluconate (Hibiclens For Decolonization -) 1 applic TP HS [facility] Last Admin: 11/26/18 21:41 Dose: 1 applic Chlorhexidine Gluconate (Peridex -) 15 ml MM BID [facility] Docusate Sodium (Colace -) 100 mg PO BID PRN PRN Reason: CONSTIPATION Furosemide (Lasix Injection -) 40 mg IVPUSH DAILY [facility] Last Admin: 11/27/18 10:06 Dose: 40 mg Gabapentin (Neurontin -) 100 mg PO TID [facility] Last Admin: 11/27/18 16:33 Dose: 100 mg Heparin Sodium (Porcine) (Heparin -) 5,000 unit IVPUSH PRN PRN PRN Reason: Heparin Heparin Sodium (Porcine) (Heparin -) 1,000 unit IVPUSH PRN PRN PRN Reason: Heparin Last Admin: 11/26/18 17:25 Dose: 1,000 unit Heparin Sodium (Porcine) 25, (000 unit/ Sodium Chloride) 500 mls @ 20 mls/hr IV TITR [facility]; Protocol Last Admin: 11/27/18 06:41 Dose: Not Given Propofol (Diprivan -) 1,000,000 mcg in 100 mls @ 9.349 mls/hr IVPB TITR [facility]; Protocol Last Admin: 11/27/18 16:34 Dose: 50 mcg/kg/min, 31.162 mls/hr Piperacillin Sod/Tazobactam (Sod 2.25 gm/ Dextrose) 50 mls @ 100 mls/hr IVPB Q8H-IV [facility]; Protocol Last Admin: 11/27/18 18:05 Dose: 100 mls/hr Fentanyl 500 mcg/ Dextrose 100 mls @ 10 mls/hr IVPB TITR [facility]; Protocol Last Admin: 11/27/18 13:10 Dose: 100 mcg/hr, 20 mls/hr Insulin Aspart (Novolog Vial Sliding Scale -) 1 vial SQ ACHS [facility]; Protocol Last Admin: 11/27/18 17:58 Dose: Not Given Insulin Detemir (Levemir Vial) 40 units SQ HS [facility] Last Admin: 11/26/18 21:40 Dose: Not Given Methadone HCl (Dolophine -) 80 mg PO DAILY@0600 [facility] Last Admin: 11/27/18 06:41 Dose: 80 mg Mupirocin (Bactroban Ointment (For Decolonization) -) 1 applic NS BID [facility] Stop: 11/30/18 21:59 Last Admin: 11/27/18 10:00 Dose: 1 applic Polyethylene Glycol (Miralax (For Daily Use) -) 17 gm PO DAILY [facility] Last Admin: 11/27/18 12:48 Dose: 17 grams Tiotropium [place] (Spiriva Respimat) 2 puff IH DAILY [facility] Last Admin: 11/27/18 10:17 Dose: Not Given Valacyclovir HCl (Valtrex -) 500 mg PO DAILY [facility] Last Admin: 11/27/18 10:08 Dose: 500 mg - Objective Vital Signs: Vital Signs Temperature 98.5 F 11/27/18 16:00 Pulse Rate 88 11/27/18 18:00 Respiratory Rate 18 11/27/18 18:36 Blood Pressure 142/76 11/27/18 18:00 O2 Sat by Pulse Oximetry (%) 100 11/27/18 08:35 Constitutional: Yes: No Distress Cardiovascular: Yes: Regular Rate and Rhythm Respiratory: Yes: Mechanically Ventilated Edema: No Labs: CBC, BMP 11/26/18 05:30 11/26/18 19:58 INR, PTT INR 1.05 (0.83-1.09) 11/25/18 20:00 Fibrinogen > 500.0 mg/dL (238-498) H 11/25/18 20:00 Assessment/Plan 63M with HTN, DM, PVD, ? COPD, CKD, recently diagnosed myeloma, with vertebral fractures s/p RT to l-spine and l. acetabular fx, on velcade/cytoxan/ dexamethasone/zometa (last 11/18/18), admitted with severe constipation and hyponatremia. Hospital course c/b acute respiratory failure, in the setting of severe hypertension, requiring intubation. Thought to have flash pulmonary edema vs. ARDS. Being diuresed. Waking up. MM treatment on hold.
[2018-11-27] MEDS: INSULIN (LEVEMIR) 100 UNITS/ML UNITS SQ SCH (22:38)
[2018-11-27] MEDS: CHLORHEXIDINE GLUCONATE 0.12% 15ML CUP MM SCH (22:40)
[2018-11-27] MEDS: CHLORHEXIDINE GLUCONATE 4% CLEANSER FOR DECOLONIZATION TP SCH (22:42)
[2018-11-28] MEDS ORDERED: fentaNYL CITRATE 250 MCG/5 ML VIAL ONE ×3 (00:27→19:32)
[2018-11-28] MEDS ORDERED: PT OWN MED DRAWER 7, Y5N ONE ×5 (00:28→21:16)
[2018-11-28] MEDS ORDERED: DEXTROSE 5%-WATER - 50 ML IVPB ONE ×2 (02:49→10:19)
[2018-11-28] MEDS ORDERED: PIPERACILLIN/TAZOBACTAM 2.25 GM VIAL IVPB ONE ×2 (02:49→10:19)
[2018-11-28] MEDS: PIPERACILLIN/TAZOB 2.25 GM 2.25 GM in DEXTROSE 5%-WATER - 50 ML IVPB SCH ×2 (03:06→10:24)
[2018-11-28 05:51] LABS: HEMATOCRIT 21.6 % (35.4-49); HEMOGLOBIN 7.6 GM/dL (11.7-16.9); MCH 29.8 pg (25.7-33.7); MCHC 35.4 g/dl (32.0-35.9); MEAN CELL VOLUME 84.2 fl (80-96); MEAN PLT VOLUME 7.2 fl (7.5-11.1); PLATELET COUNT 188 K/MM3 (134-434); RBC 2.56 M/mm3 (4.00-5.60); RDW 18.1 % (11.9-15.9); WHITE BLOOD COUNT 3.9 K/mm3 (4.0-10.0)
[2018-11-28] MEDS: INSULIN SLIDING SCALE (NOVOLOG) 1 VIAL SQ SCH ×2 (06:34→22:15)
[2018-11-28] MEDS: HEPARIN - 25,000 UNIT in SODIUM CHLORIDE 495 ML IV SCH (06:34)
[2018-11-28] MEDS: GABAPENTIN 100 MG CAPSULE (FP) PO SCH ×2 (06:35→22:14)
[2018-11-28 07:37] LABS: ALBUMIN 2.2 g/dl (3.4-5.0); ALK PHOS 78 U/L (45-117); ANION GAP 9 MMOL/L (8-16); BILIRUBIN,TOTAL 0.3 mg/dL (0.2-1); BLOOD UREA NITROGEN 34 mg/dL (7-18); CHLORIDE 104 mmol/L (98-107); CO2 23 mmol/L (21-32); CREATININE 1.5 mg/dL (0.55-1.3); GLUCOSE,RANDOM 113 mg/dL (74-106); POTASSIUM 3.8 mmol/L (3.5-5.1); SGOT/AST 36 U/L (15-37); SGPT/ALT 20 U/L (13-61); SODIUM 136 mmol/L (136-145); TOT PROT 4.9 g/dl (6.4-8.2)
--- NOTE | 2018-11-28 08:01 | PN ---
Progress Note, Physician - Current Medication List Current Medications: Active Medications Acetaminophen (Tylenol -) 650 mg PO Q6H PRN PRN Reason: FEVER Albuterol/Ipratropium (Duoneb -) 1 amp NEB Q6H PRN PRN Reason: SHORTNESS OF BREATH Allopurinol (Zyloprim -) 300 mg PO DAILY [facility] Last Admin: 11/27/18 10:09 Dose: 300 mg Aspirin (Asa -) 81 mg PO DAILY [facility] Last Admin: 11/27/18 10:24 Dose: 81 mg Buspirone HCl (Buspar -) 15 mg PO BID [facility] Last Admin: 11/27/18 22:33 Dose: Not Given Calcium Carbonate/Cholecalciferol (Os-Kyler 500+D -) 1 tab PO DAILY [facility] Last Admin: 11/27/18 10:09 Dose: 1 tab Chlorhexidine Gluconate (Hibiclens For Decolonization -) 1 applic TP HS [facility] Last Admin: 11/27/18 22:42 Dose: 1 applic Chlorhexidine Gluconate (Peridex -) 15 ml MM BID [facility] Last Admin: 11/27/18 22:40 Dose: 15 ml Docusate Sodium (Colace -) 100 mg PO BID PRN PRN Reason: CONSTIPATION Furosemide (Lasix Injection -) 40 mg IVPUSH DAILY [facility] Last Admin: 11/27/18 10:06 Dose: 40 mg Gabapentin (Neurontin -) 100 mg PO TID [facility] Last Admin: 11/28/18 06:35 Dose: Not Given Heparin Sodium (Porcine) (Heparin -) 5,000 unit IVPUSH PRN PRN PRN Reason: Heparin Heparin Sodium (Porcine) (Heparin -) 1,000 unit IVPUSH PRN PRN PRN Reason: Heparin Last Admin: 11/26/18 17:25 Dose: 1,000 unit Heparin Sodium (Porcine) 25, (000 unit/ Sodium Chloride) 500 mls @ 20 mls/hr IV TITR [facility]; Protocol Last Admin: 11/28/18 06:34 Dose: 1,100 unit/hr, 22 mls/hr Propofol (Diprivan -) 1,000,000 mcg in 100 mls @ 9.349 mls/hr IVPB TITR [facility]; Protocol Last Admin: 11/27/18 16:34 Dose: 50 mcg/kg/min, 31.162 mls/hr Piperacillin Sod/Tazobactam (Sod 2.25 gm/ Dextrose) 50 mls @ 100 mls/hr IVPB Q8H-IV [facility]; Protocol Last Admin: 11/28/18 03:06 Dose: 100 mls/hr Fentanyl 500 mcg/ Dextrose 100 mls @ 10 mls/hr IVPB TITR [facility]; Protocol Last Admin: 11/27/18 19:04 Dose: 100 mcg/hr, 20 mls/hr Insulin Aspart (Novolog Vial Sliding Scale -) 1 vial SQ ACHS [facility]; Protocol Last Admin: 11/28/18 06:34 Dose: Not Given Insulin Detemir (Levemir Vial) 40 units SQ HS [facility] Last Admin: 11/27/18 22:38 Dose: Not Given Methadone HCl (Dolophine -) 80 mg PO DAILY@0600 [facility] Last Admin: 11/27/18 06:41 Dose: 80 mg Midazolam HCl (Versed -) 2 mg IVPUSH Q4H PRN PRN Reason: AGITATION Mupirocin (Bactroban Ointment (For Decolonization) -) 1 applic NS BID [facility] Stop: 11/30/18 21:59 Last Admin: 11/27/18 22:38 Dose: 1 applic Polyethylene Glycol (Miralax (For Daily Use) -) 17 gm PO DAILY [facility] Last Admin: 11/27/18 12:48 Dose: 17 grams Tiotropium [place] (Spiriva Respimat) 2 puff IH DAILY [facility] Last Admin: 11/27/18 10:17 Dose: Not Given Valacyclovir HCl (Valtrex -) 500 mg PO DAILY [facility] Last Admin: 11/27/18 10:08 Dose: 500 mg - Objective Vital Signs: Vital Signs Temperature 98.5 F 11/27/18 16:00 Pulse Rate 68 11/28/18 06:00 Respiratory Rate 17 11/28/18 06:00 Blood Pressure 110/63 11/28/18 06:00 O2 Sat by Pulse Oximetry (%) 97 11/27/18 21:00 Cardiovascular: Yes: S1, S2 Respiratory: Yes: Diminished (left), Mechanically Ventilated, Poor Air Entry Gastrointestinal: Yes: Normal Bowel Sounds, Soft Labs: CBC, BMP 11/28/18 05:15 11/28/18 05:15 INR, PTT INR 1.05 (0.83-1.09) 11/25/18 20:00 Fibrinogen > 500.0 mg/dL (238-498) H 11/25/18 20:00 Problem List - Problems (1) Respiratory failure Assessment/Plan: -Increasing effort and hypoxia--stat cxr -mechanical vent -pulmonary consult -bronchodilators -r/o HCAP -IV abx -ID on board Code(s): J96.90 - RESPIRATORY FAILURE, UNSP, UNSP W HYPOXIA OR HYPERCAPNIA (2) CKD (chronic kidney disease) Assessment/Plan: -improved -nephrology on board -monitor trend Code(s): N18.9 - CHRONIC KIDNEY DISEASE, UNSPECIFIED (3) Diabetes Assessment/Plan: -bgm ac hs -Check A1c -Insulin: Novolog+Levemir -RD on board -endocrinology consult Code(s): E11.9 - TYPE 2 DIABETES MELLITUS WITHOUT COMPLICATIONS Qualifiers: Diabetes mellitus type: type 2 (4) Hyponatremia Code(s): E87.1 - HYPO-OSMOLALITY AND HYPONATREMIA (5) Narcotic dependence Code(s): F11.20 - OPIOID DEPENDENCE, UNCOMPLICATED (6) Vertebral compression fracture Code(s): M48.50XA - COLLAPSED VERTEBRA, NEC, SITE UNSP, INIT (7) Edema Code(s): R60.9 - EDEMA, UNSPECIFIED (8) Constipation Assessment/Plan: -mineral oil enema -Having BM Code(s): K59.00 - CONSTIPATION, UNSPECIFIED Qualifiers: Constipation type: unspecified constipation type Qualified Code(s): K59.00 - Constipation, unspecified (9) Anemia Assessment/Plan: -guaiac negative, would repeat -H/H trending down -check Iron, thyroid profile, B12, FA -monitor trend Code(s): D64.9 - ANEMIA, UNSPECIFIED (10) Elevated troponin Assessment/Plan: monitor trend -EKG unchanged -cardiology -cardiac monitoring -heparin drip -Echo Code(s): R74.8 - ABNORMAL LEVELS OF OTHER SERUM ENZYMES (11) Multiple myeloma Assessment/Plan: -Oncology on board Code(s): C90.00 - MULTIPLE MYELOMA NOT HAVING ACHIEVED REMISSION (12) Pulmonary congestion Assessment/Plan: - -Furosemide 40 mg IVP daily -serial CXR -Cardiology+Pulmonary on board Code(s): R09.89 - OTH SYMPTOMS AND SIGNS INVOLVING THE CIRC AND RESP SYSTEMS
[2018-11-28] MEDS: FENTANYL INJECTION 500 MCG in DEXTROSE 5%-WATER - 90 ML IVPB SCH ×3 (08:10→20:45)
[2018-11-28 09:01] LABS: CALCIUM 6.2 mg/dL (8.5-10.1)
[2018-11-28] MEDS: PROPOFOL 1,000,000 MCG/100 ML VIAL IVPB SCH ×5 (09:10→22:59)
[2018-11-28] MEDS: ASPIRIN 81 MG CHEWABLE TABLETS PO SCH (10:21)
[2018-11-28] MEDS: busPIRone HCL 5 MG TABLET PO SCH ×2 (10:22→22:13)
[2018-11-28] MEDS: CALCIUM 500MG/VIT-D 200 UNITS COMBO TABLET (FP) PO SCH (10:24)
[2018-11-28] MEDS: CHLORHEXIDINE GLUCONATE 0.12% 15ML CUP MM SCH ×2 (10:24→22:14)
[2018-11-28] MEDS: valACYclovir HCL 500 MG TABLET (FP) PO SCH (10:24)
[2018-11-28] MEDS: FUROSEMIDE 40 MG/4 ML INJECTABLE VIAL IVPUSH SCH (10:24)
--- NOTE | 2018-11-28 10:30 | PN ---
Progress Note (short form) - Note Progress Note: chart reviewed on zoelkinn received 2 doses vancomycin as well intubated awake Vital Signs Period Temp Pulse Resp BP Sys/Andre Pulse Ox Last 24 Hr 98.5 F-98.8 F 64-92 16-27 108-178/63-121 97-100 cor-rrr lungs decreased bs on the left abd soft,nt ext no edema CBC, BMP 11/28/18 05:15 11/28/18 05:15 Microbiology 11/25/18 20:10 Blood - Peripheral Venous Blood Culture - Preliminary NO GROWTH OBTAINED AFTER 48 HOURS, INCUBATION TO CONTINUE FOR 3 DAYS. 11/25/18 20:00 Blood - Peripheral Venous Blood Culture - Preliminary NO GROWTH OBTAINED AFTER 48 HOURS, INCUBATION TO CONTINUE FOR 3 DAYS. 11/25/18 20:10 Urine - Urine [place]sey Urine Culture - Final NO GROWTH OBTAINED 11/26/18 13:20 Urine For Antigen Detection Legionella Antigen - Final 11/26/18 13:20 Urine For Antigen Detection Streptococcus pneumoniae Antigen (M - Final 11/20/18 08:11 Urine - Urine Clean Catch Urine Culture - Final NO GROWTH OBTAINED Current Medications Acetaminophen (Tylenol -) 650 mg PO Q6H PRN PRN Reason: FEVER Albuterol/Ipratropium (Duoneb -) 1 amp NEB Q6H PRN PRN Reason: SHORTNESS OF BREATH Allopurinol (Zyloprim -) 300 mg PO DAILY [facility] Last Admin: 11/27/18 10:09 Dose: 300 mg Aspirin (Asa -) 81 mg PO DAILY [facility] Last Admin: 11/28/18 10:21 Dose: 81 mg Buspirone HCl (Buspar -) 15 mg PO BID [facility] Last Admin: 11/28/18 10:22 Dose: 15 mg Calcium Carbonate/Cholecalciferol (Os-Kyler 500+D -) 1 tab PO DAILY [facility] Last Admin: 11/28/18 10:24 Dose: 1 tab Chlorhexidine Gluconate (Hibiclens For Decolonization -) 1 applic TP HS [facility] Last Admin: 11/27/18 22:42 Dose: 1 applic Chlorhexidine Gluconate (Peridex -) 15 ml MM BID [facility] Last Admin: 11/28/18 10:24 Dose: 15 ml Docusate Sodium (Colace -) 100 mg PO BID PRN PRN Reason: CONSTIPATION Furosemide (Lasix Injection -) 40 mg IVPUSH DAILY [facility] Last Admin: 11/28/18 10:24 Dose: 40 mg Gabapentin (Neurontin -) 100 mg PO TID [facility] Last Admin: 11/28/18 06:35 Dose: Not Given Heparin Sodium (Porcine) (Heparin -) 5,000 unit IVPUSH PRN PRN PRN Reason: Heparin Heparin Sodium (Porcine) (Heparin -) 1,000 unit IVPUSH PRN PRN PRN Reason: Heparin Last Admin: 11/26/18 17:25 Dose: 1,000 unit Heparin Sodium (Porcine) 25, (000 unit/ Sodium Chloride) 500 mls @ 20 mls/hr IV TITR [facility]; Protocol Last Admin: 11/28/18 06:34 Dose: 1,100 unit/hr, 22 mls/hr Propofol (Diprivan -) 1,000,000 mcg in 100 mls @ 9.349 mls/hr IVPB TITR [facility]; Protocol Last Admin: 11/27/18 16:34 Dose: 50 mcg/kg/min, 31.162 mls/hr Piperacillin Sod/Tazobactam (Sod 2.25 gm/ Dextrose) 50 mls @ 100 mls/hr IVPB Q8H-IV [facility]; Protocol Last Admin: 11/28/18 10:24 Dose: 100 mls/hr Fentanyl 500 mcg/ Dextrose 100 mls @ 10 mls/hr IVPB TITR [facility]; Protocol Last Admin: 11/27/18 19:04 Dose: 100 mcg/hr, 20 mls/hr Insulin Aspart (Novolog Vial Sliding Scale -) 1 vial SQ ACHS [facility]; Protocol Last Admin: 11/28/18 06:34 Dose: Not Given Insulin Detemir (Levemir Vial) 40 units SQ HS [facility] Last Admin: 11/27/18 22:38 Dose: Not Given Methadone HCl (Dolophine -) 80 mg PO DAILY@0600 [facility] Last Admin: 11/27/18 06:41 Dose: 80 mg Midazolam HCl (Versed -) 2 mg IVPUSH Q4H PRN PRN Reason: AGITATION Mupirocin (Bactroban Ointment (For Decolonization) -) 1 applic NS BID [facility] Stop: 11/30/18 21:59 Last Admin: 11/27/18 22:38 Dose: 1 applic Polyethylene Glycol (Miralax (For Daily Use) -) 17 gm PO DAILY [facility] Last Admin: 11/27/18 12:48 Dose: 17 grams Tiotropium [place] (Spiriva Respimat) 2 puff IH DAILY [facility] Last Admin: 11/27/18 10:17 Dose: Not Given Valacyclovir HCl (Valtrex -) 500 mg PO DAILY [facility] Last Admin: 11/28/18 10:24 Dose: 500 mg cxray worsening left lung infiltrate a/p respiratory failure left lung pneumonia MRSA nares colonization multiple myeloma/vertebral fractures renal insufficiency-improving sputum culture vancomycin/zosyn- adjust for improving renal function
--- NOTE | 2018-11-28 11:56 | PN ---
Physical Exam: SUBJECTIVE: Patient seen and examined at bedside this morning. Patient is intubated, sedated. No acute overnight events, patient remained afebrile. OBJECTIVE: Vital Signs Period Temp Pulse Resp BP Sys/Andre Pulse Ox Last 24 Hr 98.5 F-98.8 F 64-92 16-24 108-178/63-121 97-100 GENERAL: The patient is sedated, intubated. HEENT: Normocephalic, atraumatic. PERRL, sclera anicteric, conjunctiva clear. Neck supple without lymphadenopathy. LUNGS: Mechanical breath sounds equal, clear to auscultation bilaterally, no wheezes, no crackles auscultated. HEART: Regular rate and rhythm, S1, S2 without murmur, rub or gallop. ABDOMEN: Soft, nontender, nondistended, hypoactive bowel sounds. EXTREMITIES: 2+ radial, dorsalsi pedis pulses bilaterally, well-perfused. No lower extremity edema. SKIN: Warm, dry. Chronic venous changes noted bilateral lower extremities. Laboratory Results - last 24 hr 11/27/18 11/27/18 11/28/18 17:22 22:37 05:15 WBC 3.9 L RBC 2.56 L Hgb 7.6 L Hct 21.6 L D MCV 84.2 MCH 29.8 MCHC 35.4 RDW 18.1 H Plt Count 188 MPV 7.2 L PTT (Actin FS) Sodium Potassium Chloride Carbon Dioxide Anion Gap BUN Creatinine Creat Clearance w eGFR POC Glucometer 105 94 Random Glucose Hemoglobin A1c % Calcium Ferritin Total Bilirubin AST ALT Alkaline Phosphatase Total Protein Albumin Vitamin B12 Serum Folate TSH Free T4 11/28/18 11/28/18 11/28/18 05:15 05:15 05:15 WBC RBC Hgb Hct MCV MCH MCHC RDW Plt Count MPV PTT (Actin FS) 50.5 H Sodium 136 Potassium 3.8 Chloride 104 Carbon Dioxide 23 Anion Gap 9 BUN 34 H Creatinine 1.5 H Creat Clearance w eGFR 46.97 POC Glucometer Random Glucose 113 H Hemoglobin A1c % Calcium 6.2 L* Ferritin 184.3 Total Bilirubin 0.3 AST 36 ALT 20 Alkaline Phosphatase 78 Total Protein 4.9 L Albumin 2.2 L Vitamin B12 979 Serum Folate 14 TSH 1.38 Free T4 1.04 11/28/18 11/28/18 05:15 06:33 WBC RBC Hgb Hct MCV MCH MCHC RDW Plt Count MPV PTT (Actin FS) Sodium Potassium Chloride Carbon Dioxide Anion Gap BUN Creatinine Creat Clearance w eGFR POC Glucometer 109 Random Glucose Hemoglobin A1c % 7.7 H Calcium Ferritin Total Bilirubin AST ALT Alkaline Phosphatase Total Protein Albumin Vitamin B12 Serum Folate TSH Free T4 Active Medications Generic Name Dose Route Start Last Admin Trade Name Freq PRN Reason Stop Dose Admin Acetaminophen 650 mg 11/26/18 08:54 Tylenol - PO Q6H PRN FEVER Albuterol/Ipratropium 1 amp 11/25/18 21:18 Duoneb - NEB Q6H PRN SHORTNESS OF BREATH Allopurinol 300 mg 11/26/18 10:00 11/27/18 10:09 Zyloprim - PO 300 mg DAILY [facility] Administration Aspirin 81 mg 11/27/18 10:15 11/28/18 10:21 Asa - PO 81 mg DAILY [facility] Administration Buspirone HCl 15 mg 11/26/18 10:00 11/28/18 10:22 Buspar - PO 15 mg BID [facility] Administration Calcium Carbonate/Cholecalciferol 1 tab 11/26/18 10:00 11/28/18 10:24 Os-Kyler 500+D - PO 1 tab DAILY [facility] Administration Chlorhexidine Gluconate 1 applic 11/26/18 22:00 11/27/18 22:42 Hibiclens For Decolonization - TP 1 applic HS [facility] Administration Chlorhexidine Gluconate 15 ml 11/27/18 22:00 11/28/18 10:24 Peridex - MM 15 ml BID [facility] Administration Docusate Sodium 100 mg 11/26/18 08:54 Colace - PO BID PRN CONSTIPATION Furosemide 40 mg 11/27/18 08:02 11/28/18 10:24 Lasix Injection - IVPUSH 40 mg DAILY [facility] Administration Gabapentin 100 mg 11/26/18 14:00 11/28/18 06:35 Neurontin - PO Not Given TID [facility] Heparin Sodium (Porcine) 5,000 unit 11/26/18 05:04 Heparin - IVPUSH PRN PRN Heparin Heparin Sodium (Porcine) 1,000 unit 11/26/18 05:04 11/26/18 17:25 Heparin - IVPUSH 1,000 unit PRN PRN Administration Heparin Heparin Sodium (Porcine) 25, 500 mls @ 20 mls/hr 11/26/18 05:15 11/28/18 06: 34 000 unit/ Sodium Chloride IV 1,100 unit/hr TITR [facility] 22 mls/hr Administration Protocol 1,000 UNIT/HR Propofol 1,000,000 mcg in 100 mls @ 9.349 mls/hr 11/26/18 08:54 11/27/18 16: 34 Diprivan - IVPB 50 mcg/kg/min TITR [facility] 31.162 mls/hr Administration Protocol 15 MCG/KG/MIN Fentanyl 500 mcg/ Dextrose 100 mls @ 10 mls/hr 11/27/18 06:45 11/27/18 19:04 IVPB 100 mcg/hr TITR [facility] 20 mls/hr Administration Protocol 50 MCG/HR Piperacillin Sod/Tazobactam 100 mls @ 200 mls/hr 11/28/18 18:00 Sod 4.5 gm/ Dextrose IVPB Q8H-IV [facility] Protocol Vancomycin HCl 1,250 mg/ 250 mls @ 250 mls/2 hr 11/28/18 10:45 Dextrose IVPB Q24H [facility] Protocol Insulin Aspart 1 vial 11/26/18 11:00 11/28/18 06:34 Novolog Vial Sliding Scale - SQ Not Given ACHS [facility] Protocol Insulin Detemir 40 units 11/26/18 22:00 11/27/18 22:38 Levemir Vial SQ Not Given HS [facility] Methadone HCl 80 mg 11/27/18 06:00 11/27/18 06:41 Dolophine - PO 80 mg DAILY@0600 [facility] Administration Methylprednisolone Sodium Succinate 40 mg 11/28/18 11:30 Solu-Medrol - IVPUSH BID [facility] Midazolam HCl 2 mg 11/27/18 22:47 Versed - IVPUSH Q4H PRN AGITATION Mupirocin 1 applic 11/26/18 22:00 11/27/18 22:38 Bactroban Ointment (For Decolonization) - NS 11/30/18 21:59 1 applic BID [facility] Administration Polyethylene Glycol 17 gm 11/27/18 12:30 11/27/18 12:48 Miralax (For Daily Use) - PO 17 grams DAILY [facility] Administration Tiotropium [place] 2 puff 11/26/18 10:00 11/27/18 10:17 Spiriva Respimat IH Not Given DAILY [facility] Valacyclovir HCl 500 mg 11/26/18 10:00 11/28/18 10:24 Valtrex - PO 500 mg DAILY [facility] Administration ASSESSMENT/PLAN: Patient is a 63 year old male with history of hypertension, hyperlipidemia, insulin dependent diabetes mellitus, peripheral vascular disease, opoid dependence, multiple myeloma, admitted to ICU for acute hypoxic respiratory failure. Neurological -Patient is sedated with Propofol, Fentanyl -Holding home Methadone -Monitor for signs of mental status change Pulmonary Acute hypoxim, hypoxemic respiratory failure Pneumonia, +MRSA nares colonization -Intubated. Ventilator settings: RR 18, tidal volume 450, PEEP 8, FiO2 50% -Chest Xray shows atelectasis, mucus plugging and congestive changes within left lung. Right lung with improving congestive changes. -Vancomycin 1250mg IV daily -Zosyn 4.5 grams Q8H -Directional suctioning for left sided mucus plugging -Methylprednisone 40mg IV BID -Lasix 40mg IV daily -DuoNebs Q6H, Spiriva 2 puffs IH daily -Follow ABG -Follow chest radiograph -Maintain oxygen saturation greater than 90% Cardiovascular Hypertension NSTEMI -Troponin peaked at 18.5. -Patient is on Heparin drip. Follow PTT -Aspirin 81mg GT daily -Follow cardiac ECHO -Follow Arterial doppler right upper extremity Gastrointestinal Constipation -resolved History of Hepatitis C -HCV RNA PCR negative -Enteral feeds via NG tube (Nepro) Endocrine Insulin dependent diabetes mellitus -Insulin sliding scale ACHS -Fingerstick blood glucose monitoring ACHS -[id number] PO TID for peripheral neuropathy Hematologic Multiple Myeloma -Hb 7.6, Hct 21.6 -Will transfuse 1 unit PRBC to maintain Hb above 8.0. Follow CBC 1 hour after transfusion. -Multiple myeloma treatment currently on hold, per hematology -Hematology recommendations appreciated Renal BUN 34, Cr 1.5 -improving Hypocalcemia -Caclium gluconate 1000mg IV one time dose -Nephrology recommendations (Dr. Cates) appreciated FEN -Fluids: No IV fluids -Electrolytes: Hypocalcemia, repleted. Follow CMP; replete as necessary. -Nutrition: Enteral feeds via NG tube (Nepro) Prophylaxis -Patient is on Heparin drip for NSTEMI Disposition -Continue care in ICU. Patient is Full Code Visit type - Emergency Visit Emergency Visit: Yes ED Registration Date: 11/20/18 Care time: The patient presented to the Emergency Department on the above date and was hospitalized for further evaluation of their emergent condition. - New Patient This patient is new to me today: Yes Date on this admission: 11/28/18 - Critical Care Critical Care patient: Yes Total Critical Care Time (in minutes): 39 Critical Care Statement: The care of this patient involved high complexity decision making to prevent further life threatening deterioration of the patient 's condition and/or to evaluate & treat vital organ system(s) failure or risk of failure. - Discharge Referral Referred to [facility] Med P.C.: No
[2018-11-28] MEDS: POLYETHYLENE GLYCOL 3350 119 GM BTL PO SCH (11:57)
[2018-11-28] MEDS: MUPIROCIN 2% TOPICAL OINTMENT FOR DECOLONIZATION NS SCH ×2 (12:01→22:14)
[2018-11-28] MEDS: ALLOPURINOL 300 MG TABLET (FP) PO SCH (12:06)
[2018-11-28] MEDS: methylPREDNISolone NA SUCC 40 MG/1 ML VIAL IVPUSH SCH ×2 (12:06→22:15)
[2018-11-28] MEDS: VANCOMYCIN HCL 1,250 MG in DEXTROSE 5%-WATER - 250 ML IVPB SCH (12:07)
[2018-11-28] MEDS: TIOTROPIUM BROMIDE 2.5 MCG (SPIRIVA) RESPIMAT INHALER IH SCH (12:10)
[2018-11-28 12:20] LABS: ARTERIAL BLD GAS O2 SATURATION 94.9 % (90-98.9); ARTERIAL BLOOD GAS BASE EXCESS -2.8 meq/l (-2-2); ARTERIAL BLOOD GAS PCO2 46.9 mmHg (35-45); ARTERIAL BLOOD GAS PO2 96.9 mmHg (80-100); ARTERIAL BLOOD GAS pH 7.31 (7.35-7.45)
[2018-11-28 12:26] LABS: ALLENS TEST POSITIVE
--- NOTE | 2018-11-28 13:34 | PN ---
Teaching Attending Note Name of Resident: Tarun Guzmán ATTENDING PHYSICIAN STATEMENT I saw and evaluated the patient. I reviewed the resident's note and discussed the case with the resident. I agree with the resident's findings and plan as documented. SUBJECTIVE: Patient seen and examined in the ICU. Intubated and sedated. AC mode of vent, 50%. Intake & Output 11/25/18 11/26/18 11/27/18 11/28/18 23:59 23:59 23:59 23:59 Intake Total 1150 1120 1522 2046 Output Total 600 2300 2900 Balance 550 -1180 -1378 2046 Weight 238 lb 9 oz 237 lb 7.005 oz 229 lb 8.019 oz Last Vital Signs Temp Pulse Resp BP Pulse Ox 98.8 F 66 18 117/75 100 11/28/18 10:00 11/28/18 12:00 11/28/18 12:00 11/28/18 12:00 11/28/18 11:50 Active Medications Acetaminophen (Tylenol -) 650 mg PO Q6H PRN PRN Reason: FEVER Albuterol/Ipratropium (Duoneb -) 1 amp NEB Q6H PRN PRN Reason: SHORTNESS OF BREATH Allopurinol (Zyloprim -) 300 mg PO DAILY [facility] Last Admin: 11/28/18 12:06 Dose: 300 mg Aspirin (Asa -) 81 mg PO DAILY [facility] Last Admin: 11/28/18 10:21 Dose: 81 mg Buspirone HCl (Buspar -) 15 mg PO BID [facility] Last Admin: 11/28/18 10:22 Dose: 15 mg Calcium Carbonate/Cholecalciferol (Os-Kyler 500+D -) 1 tab PO DAILY [facility] Last Admin: 11/28/18 10:24 Dose: 1 tab Chlorhexidine Gluconate (Hibiclens For Decolonization -) 1 applic TP HS [facility] Last Admin: 11/27/18 22:42 Dose: 1 applic Chlorhexidine Gluconate (Peridex -) 15 ml MM BID [facility] Last Admin: 11/28/18 10:24 Dose: 15 ml Docusate Sodium (Colace -) 100 mg PO BID PRN PRN Reason: CONSTIPATION Furosemide (Lasix Injection -) 40 mg IVPUSH DAILY [facility] Last Admin: 11/28/18 10:24 Dose: 40 mg Gabapentin (Neurontin -) 100 mg PO TID [facility] Last Admin: 11/28/18 06:35 Dose: Not Given Heparin Sodium (Porcine) (Heparin -) 5,000 unit IVPUSH PRN PRN PRN Reason: Heparin Heparin Sodium (Porcine) (Heparin -) 1,000 unit IVPUSH PRN PRN PRN Reason: Heparin Last Admin: 11/26/18 17:25 Dose: 1,000 unit Heparin Sodium (Porcine) 25, (000 unit/ Sodium Chloride) 500 mls @ 20 mls/hr IV TITR [facility]; Protocol Last Admin: 11/28/18 06:34 Dose: 1,100 unit/hr, 22 mls/hr Propofol (Diprivan -) 1,000,000 mcg in 100 mls @ 9.349 mls/hr IVPB TITR [facility]; Protocol Last Admin: 11/28/18 12:19 Dose: 50 mcg/kg/min, 31.162 mls/hr Fentanyl 500 mcg/ Dextrose 100 mls @ 10 mls/hr IVPB TITR [facility]; Protocol Last Admin: 11/28/18 08:10 Dose: 100 mcg/hr, 20 mls/hr Piperacillin Sod/Tazobactam (Sod 4.5 gm/ Dextrose) 100 mls @ 200 mls/hr IVPB Q8H-IV [facility]; Protocol Vancomycin HCl 1,250 mg/ (Dextrose) 250 mls @ 250 mls/2 hr IVPB Q24H [facility]; Protocol Last Admin: 11/28/18 12:07 Dose: 250 mls/2 hr Insulin Aspart (Novolog Vial Sliding Scale -) 1 vial SQ ACHS [facility]; Protocol Last Admin: 11/28/18 06:34 Dose: Not Given Insulin Detemir (Levemir Vial) 40 units SQ HS [facility] Last Admin: 11/27/18 22:38 Dose: Not Given Methadone HCl (Dolophine -) 80 mg PO DAILY@0600 [facility] Last Admin: 11/27/18 06:41 Dose: 80 mg Methylprednisolone Sodium Succinate (Solu-Medrol -) 40 mg IVPUSH BID [facility] Last Admin: 11/28/18 12:06 Dose: 40 mg Midazolam HCl (Versed -) 2 mg IVPUSH Q4H PRN PRN Reason: AGITATION Mupirocin (Bactroban Ointment (For Decolonization) -) 1 applic NS BID [facility] Stop: 11/30/18 21:59 Last Admin: 11/28/18 12:01 Dose: 1 applic Polyethylene Glycol (Miralax (For Daily Use) -) 17 gm PO DAILY [facility] Last Admin: 11/28/18 11:57 Dose: 17 grams Tiotropium [place] (Spiriva Respimat) 2 puff IH DAILY [facility] Last Admin: 11/28/18 12:10 Dose: Not Given Valacyclovir HCl (Valtrex -) 500 mg PO DAILY [facility] Last Admin: 11/28/18 10:24 Dose: 500 mg Gen: sedated, vented HEENT: PERRL, EOMI PULM: coarse crackles, decreased on the left, no wheeze CV: S1S2, (-) murmur ABD: soft lightly distended, hypoactive BS EXT; LE dependent edema SEAT TRIMMER: sedated Intake & Output 11/25/18 11/26/18 11/27/18 11/28/18 23:59 23:59 23:59 23:59 Intake Total 1150 1120 1522 2046 Output Total 600 2300 2900 Balance 550 -1180 -1378 2046 Weight 238 lb 9 oz 237 lb 7.005 oz 229 lb 8.019 oz ASSESSMENT/PLAN: Acute Respiratory Failure CAP Suspected Acute Pulmonary Edema HTN Troponemia IIDM DARIO on CKD Methadone maintenance Wean trials as tolerated ABX IV Heparin Follow ABG Strict I & O BD TX Medrol Follow CXR Transfuse 1 unit of pRBCs: maintain Hgb = 8 Start enteral feeds Hope to extubate next 1 to 2 days Requires ICU monitoring Dr Culver Critical care time spent in reviewing chart, evaluating patient and formulating plan - 36 minutes.
--- NOTE | 2018-11-28 14:02 | PN ---
Progress Note, Physician Chief Complaint: intubated and sedated telemetry without events. History of Present Illness: The patient is a 63-year-old man, with a history of diabetes, hypertension, hyperlipidemia, peripheral vascular disease, hepatitis C, opioid abuse, on methadone, multiple myeloma, who was admitted with nausea vomiting and abdominal pain with constipation. Developed acute respiratory distress, was intubated and transferred to the ICU. Troponins found to be elevated. There were ECG changes. Echo in progress CXR with volume loss, resolved congestive changes Getting PRBC's. - Current Medication List Current Medications: Active Medications Acetaminophen (Tylenol -) 650 mg PO Q6H PRN PRN Reason: FEVER Albuterol/Ipratropium (Duoneb -) 1 amp NEB Q6H PRN PRN Reason: SHORTNESS OF BREATH Allopurinol (Zyloprim -) 300 mg PO DAILY [facility] Last Admin: 11/28/18 12:06 Dose: 300 mg Aspirin (Asa -) 81 mg PO DAILY [facility] Last Admin: 11/28/18 10:21 Dose: 81 mg Buspirone HCl (Buspar -) 15 mg PO BID [facility] Last Admin: 11/28/18 10:22 Dose: 15 mg Calcium Carbonate/Cholecalciferol (Os-Kyler 500+D -) 1 tab PO DAILY [facility] Last Admin: 11/28/18 10:24 Dose: 1 tab Chlorhexidine Gluconate (Hibiclens For Decolonization -) 1 applic TP HS [facility] Last Admin: 11/27/18 22:42 Dose: 1 applic Chlorhexidine Gluconate (Peridex -) 15 ml MM BID [facility] Last Admin: 11/28/18 10:24 Dose: 15 ml Docusate Sodium (Colace -) 100 mg PO BID PRN PRN Reason: CONSTIPATION Furosemide (Lasix Injection -) 40 mg IVPUSH DAILY [facility] Last Admin: 11/28/18 10:24 Dose: 40 mg Gabapentin (Neurontin -) 100 mg PO TID [facility] Last Admin: 11/28/18 06:35 Dose: Not Given Heparin Sodium (Porcine) (Heparin -) 5,000 unit IVPUSH PRN PRN PRN Reason: Heparin Heparin Sodium (Porcine) (Heparin -) 1,000 unit IVPUSH PRN PRN PRN Reason: Heparin Last Admin: 11/26/18 17:25 Dose: 1,000 unit Heparin Sodium (Porcine) 25, (000 unit/ Sodium Chloride) 500 mls @ 20 mls/hr IV TITR [facility]; Protocol Last Admin: 11/28/18 06:34 Dose: 1,100 unit/hr, 22 mls/hr Propofol (Diprivan -) 1,000,000 mcg in 100 mls @ 9.349 mls/hr IVPB TITR [facility]; Protocol Last Admin: 11/28/18 12:19 Dose: 50 mcg/kg/min, 31.162 mls/hr Fentanyl 500 mcg/ Dextrose 100 mls @ 10 mls/hr IVPB TITR [facility]; Protocol Last Admin: 11/28/18 08:10 Dose: 100 mcg/hr, 20 mls/hr Piperacillin Sod/Tazobactam (Sod 4.5 gm/ Dextrose) 100 mls @ 200 mls/hr IVPB Q8H-IV [facility]; Protocol Vancomycin HCl 1,250 mg/ (Dextrose) 250 mls @ 250 mls/2 hr IVPB Q24H [facility]; Protocol Last Admin: 11/28/18 12:07 Dose: 250 mls/2 hr Insulin Aspart (Novolog Vial Sliding Scale -) 1 vial SQ ACHS [facility]; Protocol Last Admin: 11/28/18 06:34 Dose: Not Given Insulin Detemir (Levemir Vial) 40 units SQ HS [facility] Last Admin: 11/27/18 22:38 Dose: Not Given Methadone HCl (Dolophine -) 80 mg PO DAILY@0600 [facility] Last Admin: 11/27/18 06:41 Dose: 80 mg Methylprednisolone Sodium Succinate (Solu-Medrol -) 40 mg IVPUSH BID [facility] Last Admin: 11/28/18 12:06 Dose: 40 mg Midazolam HCl (Versed -) 2 mg IVPUSH Q4H PRN PRN Reason: AGITATION Mupirocin (Bactroban Ointment (For Decolonization) -) 1 applic NS BID [facility] Stop: 11/30/18 21:59 Last Admin: 11/28/18 12:01 Dose: 1 applic Polyethylene Glycol (Miralax (For Daily Use) -) 17 gm PO DAILY [facility] Last Admin: 11/28/18 11:57 Dose: 17 grams Tiotropium [place] (Spiriva Respimat) 2 puff IH DAILY [facility] Last Admin: 11/28/18 12:10 Dose: Not Given Valacyclovir HCl (Valtrex -) 500 mg PO DAILY [facility] Last Admin: 11/28/18 10:24 Dose: 500 mg - Objective Vital Signs: Vital Signs Temperature 98.6 F 11/28/18 13:50 Pulse Rate 67 11/28/18 13:50 Respiratory Rate 18 11/28/18 13:50 Blood Pressure 122/72 11/28/18 13:50 O2 Sat by Pulse Oximetry (%) 100 11/28/18 11:50 Constitutional: Yes: No Distress Eyes: Yes: Conjunctiva Clear, EOM Intact HENT: Yes: Normocephalic Neck: Yes: Trachea Midline Cardiovascular: Yes: Regular Rate and Rhythm Respiratory: Yes: Mechanically Ventilated Gastrointestinal: Yes: Normal Bowel Sounds Extremities: Yes: WNL Labs: CBC, BMP 11/28/18 05:15 11/28/18 05:15 INR, PTT INR 1.05 (0.83-1.09) 11/25/18 20:00 Fibrinogen > 500.0 mg/dL (238-498) H 11/25/18 20:00 Assessment/Plan The patient is a 63-year-old man, with a history of diabetes, hypertension, hyperlipidemia, peripheral vascular disease, hepatitis C, opioid abuse, on methadone, multiple myeloma, who was admitted with nausea vomiting and abdominal pain with constipation. Developed acute respiratory distress, was intubated and transferred to the ICU. Troponins found to be elevated. There were ECG changes. The patient remains intubated and sedated. Fluid overloaded. Continue IV lasix. Transfuse as needed, wean as per ICU team. Continue sedation. Conservative cardiac care. He is not a candidate for cardiac cath.
[2018-11-28] MEDS ORDERED: CALCIUM GLUCONATE 10% - 1,000 MG/10 ML VIAL IVPB ONE (14:45)
--- NOTE | 2018-11-28 15:19 | PN ---
Progress Note, Physician History of Present Illness: Pt seen and examined at bedside. He remains in the ICU. He remains intubated. - Current Medication List Current Medications: Active Medications Acetaminophen (Tylenol -) 650 mg PO Q6H PRN PRN Reason: FEVER Albuterol/Ipratropium (Duoneb -) 1 amp NEB Q6H PRN PRN Reason: SHORTNESS OF BREATH Allopurinol (Zyloprim -) 300 mg PO DAILY [facility] Last Admin: 11/28/18 12:06 Dose: 300 mg Aspirin (Asa -) 81 mg PO DAILY [facility] Last Admin: 11/28/18 10:21 Dose: 81 mg Buspirone HCl (Buspar -) 15 mg PO BID [facility] Last Admin: 11/28/18 10:22 Dose: 15 mg Calcium Carbonate/Cholecalciferol (Os-Kyler 500+D -) 1 tab PO DAILY [facility] Last Admin: 11/28/18 10:24 Dose: 1 tab Chlorhexidine Gluconate (Hibiclens For Decolonization -) 1 applic TP HS [facility] Last Admin: 11/27/18 22:42 Dose: 1 applic Chlorhexidine Gluconate (Peridex -) 15 ml MM BID [facility] Last Admin: 11/28/18 10:24 Dose: 15 ml Docusate Sodium (Colace -) 100 mg PO BID PRN PRN Reason: CONSTIPATION Furosemide (Lasix Injection -) 40 mg IVPUSH DAILY [facility] Last Admin: 11/28/18 10:24 Dose: 40 mg Gabapentin (Neurontin -) 100 mg PO TID [facility] Last Admin: 11/28/18 06:35 Dose: Not Given Heparin Sodium (Porcine) (Heparin -) 5,000 unit IVPUSH PRN PRN PRN Reason: Heparin Heparin Sodium (Porcine) (Heparin -) 1,000 unit IVPUSH PRN PRN PRN Reason: Heparin Last Admin: 11/26/18 17:25 Dose: 1,000 unit Heparin Sodium (Porcine) 25, (000 unit/ Sodium Chloride) 500 mls @ 20 mls/hr IV TITR [facility]; Protocol Last Admin: 11/28/18 06:34 Dose: 1,100 unit/hr, 22 mls/hr Propofol (Diprivan -) 1,000,000 mcg in 100 mls @ 9.349 mls/hr IVPB TITR [facility]; Protocol Last Admin: 11/28/18 12:19 Dose: 50 mcg/kg/min, 31.162 mls/hr Fentanyl 500 mcg/ Dextrose 100 mls @ 10 mls/hr IVPB TITR [facility]; Protocol Last Admin: 11/28/18 14:22 Dose: 100 mcg/hr, 20 mls/hr Piperacillin Sod/Tazobactam (Sod 4.5 gm/ Dextrose) 100 mls @ 200 mls/hr IVPB Q8H-IV [facility]; Protocol Vancomycin HCl 1,250 mg/ (Dextrose) 250 mls @ 250 mls/2 hr IVPB Q24H [facility]; Protocol Last Admin: 11/28/18 12:07 Dose: 250 mls/2 hr Insulin Aspart (Novolog Vial Sliding Scale -) 1 vial SQ ACHS [facility]; Protocol Last Admin: 11/28/18 06:34 Dose: Not Given Insulin Detemir (Levemir Vial) 40 units SQ HS [facility] Last Admin: 11/27/18 22:38 Dose: Not Given Methadone HCl (Dolophine -) 80 mg PO DAILY@0600 [facility] Last Admin: 11/27/18 06:41 Dose: 80 mg Methylprednisolone Sodium Succinate (Solu-Medrol -) 40 mg IVPUSH BID [facility] Last Admin: 11/28/18 12:06 Dose: 40 mg Midazolam HCl (Versed -) 2 mg IVPUSH Q4H PRN PRN Reason: AGITATION Mupirocin (Bactroban Ointment (For Decolonization) -) 1 applic NS BID [facility] Stop: 11/30/18 21:59 Last Admin: 11/28/18 12:01 Dose: 1 applic Polyethylene Glycol (Miralax (For Daily Use) -) 17 gm PO DAILY [facility] Last Admin: 11/28/18 11:57 Dose: 17 grams Tiotropium [place] (Spiriva Respimat) 2 puff IH DAILY [facility] Last Admin: 11/28/18 12:10 Dose: Not Given Valacyclovir HCl (Valtrex -) 500 mg PO DAILY [facility] Last Admin: 11/28/18 10:24 Dose: 500 mg - Objective Vital Signs: Vital Signs Temperature 98.6 F 11/28/18 13:50 Pulse Rate 67 11/28/18 13:50 Respiratory Rate 18 11/28/18 14:04 Blood Pressure 122/72 11/28/18 13:50 O2 Sat by Pulse Oximetry (%) 100 11/28/18 11:50 Constitutional: Yes: Calm Eyes: Yes: Conjunctiva Clear HENT: Yes: Atraumatic Neck: Yes: Supple Cardiovascular: Yes: S1, S2 Respiratory: Yes: Mechanically Ventilated Gastrointestinal: Yes: Normal Bowel Sounds, Soft Genitourinary: Yes: [place] Present Musculoskeletal: Yes: Muscle Weakness Edema: Yes Edema: LUE: 1+, RUE: 1+, LLE: 2+, RLE: 2+ Neurological: Yes: Oriented Psychiatric: Yes: Oriented Labs: CBC, BMP 11/28/18 05:15 11/28/18 05:15 INR, PTT INR 1.05 (0.83-1.09) 11/25/18 20:00 Fibrinogen > 500.0 mg/dL (238-498) H 11/25/18 20:00 - ....Imaging Chest X-ray: Report Reviewed Problem List - Problems (1) CKD (chronic kidney disease) Code(s): N18.9 - CHRONIC KIDNEY DISEASE, UNSPECIFIED (2) Constipation Code(s): K59.00 - CONSTIPATION, UNSPECIFIED Qualifiers: Constipation type: unspecified constipation type Qualified Code(s): K59.00 - Constipation, unspecified (3) Hyponatremia Code(s): E87.1 - HYPO-OSMOLALITY AND HYPONATREMIA Assessment/Plan Current Medications Generic Name Dose Route Start Last Admin Trade Name Freq PRN Reason Stop Dose Admin Acetaminophen 650 mg 11/26/18 08:54 Tylenol - PO Q6H PRN FEVER Albuterol/Ipratropium 1 amp 11/25/18 21:18 Duoneb - NEB Q6H PRN SHORTNESS OF BREATH Allopurinol 300 mg 11/26/18 10:00 11/28/18 12:06 Zyloprim - PO 300 mg DAILY [facility] Administration Aspirin 81 mg 11/27/18 10:15 11/28/18 10:21 Asa - PO 81 mg DAILY [facility] Administration Buspirone HCl 15 mg 11/26/18 10:00 11/28/18 10:22 Buspar - PO 15 mg BID [facility] Administration Calcium Carbonate/Cholecalciferol 1 tab 11/26/18 10:00 11/28/18 10:24 Os-Kyler 500+D - PO 1 tab DAILY [facility] Administration Chlorhexidine Gluconate 1 applic 11/26/18 22:00 11/27/18 22:42 Hibiclens For Decolonization - TP 1 applic HS [facility] Administration Chlorhexidine Gluconate 15 ml 11/27/18 22:00 11/28/18 10:24 Peridex - MM 15 ml BID [facility] Administration Docusate Sodium 100 mg 11/26/18 08:54 Colace - PO BID PRN CONSTIPATION Furosemide 40 mg 11/27/18 08:02 11/28/18 10:24 Lasix Injection - IVPUSH 40 mg DAILY [facility] Administration Gabapentin 100 mg 11/26/18 14:00 11/28/18 06:35 Neurontin - PO Not Given TID [facility] Heparin Sodium (Porcine) 5,000 unit 11/26/18 05:04 Heparin - IVPUSH PRN PRN Heparin Heparin Sodium (Porcine) 1,000 unit 11/26/18 05:04 11/26/18 17:25 Heparin - IVPUSH 1,000 unit PRN PRN Administration Heparin Heparin Sodium (Porcine) 25, 500 mls @ 20 mls/hr 11/26/18 05:15 11/28/18 06: 34 000 unit/ Sodium Chloride IV 1,100 unit/hr TITR [facility] 22 mls/hr Administration Protocol 1,000 UNIT/HR Propofol 1,000,000 mcg in 100 mls @ 9.349 mls/hr 11/26/18 08:54 11/28/18 12: 19 Diprivan - IVPB 50 mcg/kg/min TITR [facility] 31.162 mls/hr Administration Protocol 15 MCG/KG/MIN Fentanyl 500 mcg/ Dextrose 100 mls @ 10 mls/hr 11/27/18 06:45 11/28/18 14:22 IVPB 100 mcg/hr TITR [facility] 20 mls/hr Administration Protocol 50 MCG/HR Piperacillin Sod/Tazobactam 100 mls @ 200 mls/hr 11/28/18 18:00 Sod 4.5 gm/ Dextrose IVPB Q8H-IV [facility] Protocol Vancomycin HCl 1,250 mg/ 250 mls @ 250 mls/2 hr 11/28/18 10:45 11/28/18 12:07 Dextrose IVPB 250 mls/2 hr Q24H [facility] Administration Protocol Insulin Aspart 1 vial 11/26/18 11:00 11/28/18 06:34 Novolog Vial Sliding Scale - SQ Not Given ACHS [facility] Protocol Insulin Detemir 40 units 11/26/18 22:00 11/27/18 22:38 Levemir Vial SQ Not Given HS [facility] Methadone HCl 80 mg 11/27/18 06:00 11/27/18 06:41 Dolophine - PO 80 mg DAILY@0600 [facility] Administration Methylprednisolone Sodium Succinate 40 mg 11/28/18 11:30 11/28/18 12:06 Solu-Medrol - IVPUSH 40 mg BID [facility] Administration Midazolam HCl 2 mg 11/27/18 22:47 Versed - IVPUSH Q4H PRN AGITATION Mupirocin 1 applic 11/26/18 22:00 11/28/18 12:01 Bactroban Ointment (For Decolonization) - NS 11/30/18 21:59 1 applic BID [facility] Administration Polyethylene Glycol 17 gm 11/27/18 12:30 11/28/18 11:57 Miralax (For Daily Use) - PO 17 grams DAILY [facility] Administration Tiotropium [place] 2 puff 11/26/18 10:00 11/28/18 12:10 Spiriva Respimat IH Not Given DAILY [facility] Valacyclovir HCl 500 mg 11/26/18 10:00 11/28/18 10:24 Valtrex - PO 500 mg DAILY [facility] Administration Impression 1. hyppnatremia 2. CKD 3. nausea and vomiting 4. htn 5. DM 6. 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 multiple myeloma 9. anemia 10. proteinuria 11. hyperkalemia Plan - cont with lasix - replace calcium - vent support - repeat cxr in am - will follow - likely etiology of hyponatremia is dehydration and GI losses - myeloma can explain renal dysfunction - discussed with ICU team Dr Cates
--- NOTE | 2018-11-28 15:54 | ECHO ---
Name: SHALONDA ROTH Exam:Adult Echocardiogram Study Date: 11/28/2018 01:27 PM Age: 63 yrs Reason For Study: LISSA ROMO Height: 72 in Weight: 238 lb BSA: 2.3 m2 MMode/2D Measurements & Calculations IVSd: 0.94 cm Ao root diam: 3.0 cm LVIDd: 5.5 cm LA dimension: 3.6 cm LVIDs: 4.1 cm LVPWd: 0.85 cm EDV(Teich): 146.2 ml LAV (MOD-bp): 81.9 ml ESV(Teich): 74.3 ml Doppler Measurements & Calculations MV E max darren: 75.7 cm/sec MR max darren: 295.9 cm/sec MV A max darren: 78.1 cm/sec MR max P.0 mmHg MV E/A: 0.97 MV dec time: 0.10 sec Med Peak E' Darren: 5.8 cm/sec Med E/e': 13.1 Lat Peak E' Darren: 8.8 cm/sec Lat E/e': 8.6 Procedure A complete two-dimensional transthoracic echocardiogram was performed (2D, M-mode, Doppler and color flow Doppler). Technically limited study. Left Ventricle The left ventricle is normal in size. Left ventricular systolic function is mildly reduced. Ejection Fraction = 45-50%. Grade I diastolic dysfunction, (abnormal relaxation pattern). Ratio E/E'= 13. There is mild global hypokinesis of the left ventricle. Right Ventricle The right ventricle is normal size. The right ventricular systolic function is normal. Atria The left atrial size is normal. Right atrial size is normal. Mitral Valve There is mild mitral annular calcification. There is mild mitral regurgitation. Tricuspid Valve The tricuspid valve is normal in structure and function. No tricuspid regurgitation. Aortic Valve There is mild aortic sclerosis.;. No aortic regurgitation is present. Pulmonic Valve The pulmonic valve is not well visualized. Great Vessels The aortic root is normal size. Pericardium/Pleura There is no pericardial effusion. Interpretation Summary Technically limited study The left ventricle is normal in size. Left ventricular systolic function is mildly reduced. There is mild global hypokinesis of the left ventricle. Ejection Fraction = 45-50%. Grade I diastolic dysfunction, (abnormal relaxation pattern). Ratio E/E'= 13 The right ventricular systolic function is normal. The left atrial size is normal. Right atrial size is normal. There is mild mitral annular calcification. There is mild mitral regurgitation. There is mild aortic sclerosis.; There is no pericardial effusion. When compared to study dated , no signficant changes Brandon Gill MD 11/28/2018 03:53 PM
[2018-11-28 18:11] LABS: CK-MM 100 % (97-100)
[2018-11-28] MEDS ORDERED: DEXTROSE 5%-WATER 100 ML IVPB ONE (18:36)
[2018-11-28] MEDS ORDERED: PIPERACILLIN/TAZOBACTAM 4.5 GM VIAL IVPB ONE (18:36)
[2018-11-28] MEDS: PIPERACILLIN/TAZOB 4.5 GM 4.5 GM in DEXTROSE 5%-WATER 100 ML IVPB SCH (19:02)
[2018-11-28 20:50] LABS: HEMATOCRIT 28.1 % (35.4-49); HEMOGLOBIN 9.8 GM/dL (11.7-16.9); MCH 29.6 pg (25.7-33.7); MEAN CELL VOLUME 84.6 fl (80-96); MEAN PLT VOLUME 7.7 fl (7.5-11.1); PLATELET COUNT 213 K/MM3 (134-434); RBC 3.32 M/mm3 (4.00-5.60); RDW 17.8 % (11.9-15.9); WHITE BLOOD COUNT 5.2 K/mm3 (4.0-10.0)
--- NOTE | 2018-11-28 21:22 | PN ---
Progress Note (short form) - Note Progress Note: Patient seen and examined in icu intubated/sedated getting 1 unit prbcs cxr --resolved rt. lung congestive changes/ left lung atelectasis Intubtaed Cor: RSR, No murmurs, No gallops Lungs: Clear to auscultation anteriorly Abd: Soft, Normal bowel sounds, No organomegaly Ext:chronic stasis dermatitis Labs/meds reviewed A/P 63 y/o patient with multiple coorbidites, HTN, DM, PVD, ? COPD, CKD, recently diagnosed myeloma, vertebral fractures on velcade/cytoxan/dexamethasone/zometa. Admitted with severe constipation and hyponatremia. Was on golytely Developed acute resp. distress and high BPs evening of 11/25 ? flash pulmonary edema intubated CXR-airspace opacities being diuresed cxr --improved congestion rt. lung/atelectasis left lung weaning per pulmonary team on empiric antibiotics + troponins--echo--mildle dcreased systolic fxn on heparin Myeloma--on velcade/cytoxan/dex --last dose 11/18 On zometa--11/18 treatment held last week light chains decreasing slowly s/p rt to lspine and left acetabular fx will resume based on clinical course
[2018-11-28] MEDS: CHLORHEXIDINE GLUCONATE 4% CLEANSER FOR DECOLONIZATION TP SCH (22:14)
[2018-11-28] MEDS: INSULIN (LEVEMIR) 100 UNITS/ML UNITS SQ SCH (22:15)
[2018-11-28] MEDS: SCOPOLAMINE HYDROBROMIDE 1 PATCH PATCH.TD72 TD SCH (22:59)
[2018-11-29] MEDS: HEPARIN - 25,000 UNIT in SODIUM CHLORIDE 495 ML IV SCH ×2 (00:10→05:18)
[2018-11-29] MEDS ORDERED: PIPERACILLIN/TAZOBACTAM 4.5 GM VIAL IVPB ONE ×4 (00:59→23:21)
[2018-11-29] MEDS ORDERED: DEXTROSE 5%-WATER 100 ML IVPB ONE ×4 (00:59→23:21)
[2018-11-29] MEDS: PROPOFOL 1,000,000 MCG/100 ML VIAL IVPB SCH ×4 (01:10→20:04)
[2018-11-29] MEDS: PIPERACILLIN/TAZOB 4.5 GM 4.5 GM in DEXTROSE 5%-WATER 100 ML IVPB SCH ×3 (01:10→18:00)
[2018-11-29] MEDS ORDERED: fentaNYL CITRATE 250 MCG/5 ML VIAL ONE (01:19)
[2018-11-29 04:12] LABS: SERUM IRON SATURATION 11 % (15-55); TOTAL IRON BINDING CAPACITY 245 ug/dL (250-450); UIBC 217 ug/dL (111-343)
[2018-11-29] MEDS: GABAPENTIN 100 MG CAPSULE (FP) PO SCH ×4 (05:18→22:26)
[2018-11-29] MEDS: FENTANYL INJECTION 500 MCG in DEXTROSE 5%-WATER - 90 ML IVPB SCH ×2 (05:24→08:00)
[2018-11-29 06:33] LABS: HEMATOCRIT 24.8 % (35.4-49); HEMOGLOBIN 8.6 GM/dL (11.7-16.9); MCH 29.1 pg (25.7-33.7); MCHC 34.6 g/dl (32.0-35.9); MEAN PLT VOLUME 7.3 fl (7.5-11.1); PLATELET COUNT 185 K/MM3 (134-434); RBC 2.95 M/mm3 (4.00-5.60); RDW 17.4 % (11.9-15.9); WHITE BLOOD COUNT 4.8 K/mm3 (4.0-10.0)
[2018-11-29] MEDS: INSULIN SLIDING SCALE (NOVOLOG) 1 VIAL SQ SCH ×5 (06:42→22:26)
[2018-11-29] MEDS: METHADONE HCL 40 MG DISPERSABLE TABLET PO SCH (06:42)
--- NOTE | 2018-11-29 07:50 | PN ---
Physical Exam: SUBJECTIVE: Patient seen and examined at bedside this morning. He remains intubated, sedated with Propofol, Fentanyl. He is s/p 1 unit PRBC transfused yesterday. He remained afebrile overnight. Weaning trial was attempted today. Patient was extubated, however developed respiratory distress, and was re-intubated. Discussed with patient's family. OBJECTIVE: Vital Signs Period Temp Pulse Resp BP Sys/Andre Pulse Ox Last 24 Hr 98.2 F-98.9 F 60-96 15-24 109-164/62-97 100-100 GENERAL: The patient is sedated, intubated. HEENT: Normocephalic, atraumatic. PERRL, sclera anicteric, conjunctiva clear. Neck supple without lymphadenopathy. LUNGS: Mechanical breath sounds equal, clear to auscultation bilaterally, no wheezes, no crackles auscultated. HEART: Regular rate and rhythm, S1, S2 without murmur, rub or gallop. ABDOMEN: Soft, nontender, nondistended, hypoactive bowel sounds. EXTREMITIES: 2+ radial, dorsalis pedis pulses bilaterally, well-perfused. No lower extremity edema. SKIN: Warm, dry. Chronic venous changes noted bilateral lower extremities. Laboratory Results - last 24 hr 11/25/18 11/28/18 11/28/18 20:00 05:15 05:15 WBC RBC Hgb Hct MCV MCH MCHC RDW Plt Count MPV PTT (Actin FS) Puncture Site ABG pH ABG pCO2 at Pt Temp ABG pO2 at Pt Temp ABG HCO3 ABG O2 Sat (Measured) ABG O2 Content ABG Base Excess Benny Test O2 Delivery Device Oxygen Flow Rate Vent Mode Vent Rate Mechanical Rate PEEP Pressure Support Vent POC Glucometer Hemoglobin A1c % Calcium 6.2 L* Iron 28 L TIBC 245 L Iron Saturation 11 L CK-BB (CK-1) 0 CK/CKMB % Calc 0 Blood Type Antibody Screen Crossmatch 11/28/18 11/28/18 11/28/18 05:15 12:10 12:20 WBC RBC Hgb Hct MCV MCH MCHC RDW Plt Count MPV PTT (Actin FS) Puncture Site Right radial ABG pH 7.31 L ABG pCO2 at Pt Temp 46.9 H ABG pO2 at Pt Temp 96.9 D ABG HCO3 22.8 ABG O2 Sat (Measured) 94.9 ABG O2 Content 11.4 L ABG Base Excess -2.8 L Benny Test Positive O2 Delivery Device Vent Oxygen Flow Rate 50% Vent Mode A/c Vent Rate 18 Mechanical Rate Yes PEEP 8.0 Pressure Support Vent 450 POC Glucometer Hemoglobin A1c % 7.7 H Calcium Iron TIBC Iron Saturation CK-BB (CK-1) CK/CKMB % Calc Blood Type A POSITIVE Antibody Screen Negative Crossmatch See Detail 11/28/18 11/28/18 11/28/18 16:36 19:30 22:09 WBC 5.2 RBC 3.32 L Hgb 9.8 L Hct 28.1 L D MCV 84.6 MCH 29.6 MCHC 35.0 RDW 17.8 H Plt Count 213 MPV 7.7 PTT (Actin FS) Puncture Site ABG pH ABG pCO2 at Pt Temp ABG pO2 at Pt Temp ABG HCO3 ABG O2 Sat (Measured) ABG O2 Content ABG Base Excess Benny Test O2 Delivery Device Oxygen Flow Rate Vent Mode Vent Rate Mechanical Rate PEEP Pressure Support Vent POC Glucometer 146 170 Hemoglobin A1c % Calcium Iron TIBC Iron Saturation CK-BB (CK-1) CK/CKMB % Calc Blood Type Antibody Screen Crossmatch 11/29/18 11/29/18 11/29/18 05:17 05:30 05:30 WBC 4.8 RBC 2.95 L Hgb 8.6 L Hct 24.8 L MCV 84.0 MCH 29.1 MCHC 34.6 RDW 17.4 H Plt Count 185 MPV 7.3 L PTT (Actin FS) 48.9 H Puncture Site ABG pH ABG pCO2 at Pt Temp ABG pO2 at Pt Temp ABG HCO3 ABG O2 Sat (Measured) ABG O2 Content ABG Base Excess Benny Test O2 Delivery Device Oxygen Flow Rate Vent Mode Vent Rate Mechanical Rate PEEP Pressure Support Vent POC Glucometer 189 Hemoglobin A1c % Calcium Iron TIBC Iron Saturation CK-BB (CK-1) CK/CKMB % Calc Blood Type Antibody Screen Crossmatch Active Medications Generic Name Dose Route Start Last Admin Trade Name Freq PRN Reason Stop Dose Admin Acetaminophen 650 mg 11/26/18 08:54 Tylenol - PO Q6H PRN FEVER Albuterol/Ipratropium 1 amp 11/25/18 21:18 Duoneb - NEB Q6H PRN SHORTNESS OF BREATH Allopurinol 300 mg 11/26/18 10:00 11/28/18 12:06 Zyloprim - PO 300 mg DAILY [facility] Administration Aspirin 81 mg 11/27/18 10:15 11/28/18 10:21 Asa - PO 81 mg DAILY [facility] Administration Buspirone HCl 15 mg 11/26/18 10:00 11/28/18 22:13 Buspar - PO Not Given BID [facility]OV Calcium Carbonate/Cholecalciferol 1 tab 11/26/18 10:00 11/28/18 10:24 Os-Kyler 500+D - PO 1 tab DAILY [facility] Administration Chlorhexidine Gluconate 1 applic 11/26/18 22:00 11/28/18 22:14 Hibiclens For Decolonization - TP 1 applic HS [facility] Administration Chlorhexidine Gluconate 15 ml 11/27/18 22:00 11/28/18 22:14 Peridex - MM 15 ml BID [facility] Administration Docusate Sodium 100 mg 11/26/18 08:54 Colace - PO BID PRN CONSTIPATION Furosemide 40 mg 11/27/18 08:02 11/28/18 10:24 Lasix Injection - IVPUSH 40 mg DAILY [facility] Administration Gabapentin 100 mg 11/26/18 14:00 11/29/18 05:18 Neurontin - PO 100 mg TID [facility] Administration Heparin Sodium (Porcine) 5,000 unit 11/26/18 05:04 Heparin - IVPUSH PRN PRN Heparin Heparin Sodium (Porcine) 1,000 unit 11/26/18 05:04 11/26/18 17:25 Heparin - IVPUSH 1,000 unit PRN PRN Administration Heparin Heparin Sodium (Porcine) 25, 500 mls @ 20 mls/hr 11/26/18 05:15 11/29/18 05: 18 000 unit/ Sodium Chloride IV Not Given TITR [facility] Protocol 1,000 UNIT/HR Propofol 1,000,000 mcg in 100 mls @ 9.349 mls/hr 11/26/18 08:54 11/29/18 05: 41 Diprivan - IVPB 60 mcg/kg/min TITR [facility] 37.394 mls/hr Administration Protocol 15 MCG/KG/MIN Fentanyl 500 mcg/ Dextrose 100 mls @ 10 mls/hr 11/27/18 06:45 11/29/18 05:24 IVPB 100 mcg/hr TITR [facility] 20 mls/hr Administration Protocol 50 MCG/HR Piperacillin Sod/Tazobactam 100 mls @ 200 mls/hr 11/28/18 18:00 11/29/18 01: 10 Sod 4.5 gm/ Dextrose IVPB 200 mls/hr Q8H-IV [facility] Administration Protocol Vancomycin HCl 1,250 mg/ 250 mls @ 250 mls/2 hr 11/28/18 10:45 11/28/18 12:07 Dextrose IVPB 250 mls/2 hr Q24H [facility] Administration Protocol Insulin Aspart 1 vial 11/26/18 11:00 11/29/18 06:42 Novolog Vial Sliding Scale - SQ 2 units ACHS [facility] Administration Protocol Insulin Detemir 40 units 11/26/18 22:00 11/28/18 22:15 Levemir Vial SQ 40 units HS [facility] Administration Methadone HCl 80 mg 11/27/18 06:00 11/29/18 06:42 Dolophine - PO Not Given DAILY@0600 [facility] Methylprednisolone Sodium Succinate 40 mg 11/28/18 11:30 11/28/18 22:15 Solu-Medrol - IVPUSH 40 mg BID [facility] Administration Midazolam HCl 2 mg 11/27/18 22:47 Versed - IVPUSH Q4H PRN AGITATION Mupirocin 1 applic 11/26/18 22:00 11/28/18 22:14 Bactroban Ointment (For Decolonization) - NS 11/30/18 21:59 1 applic BID [facility] Administration Polyethylene Glycol 17 gm 11/27/18 12:30 11/28/18 11:57 Miralax (For Daily Use) - PO 17 grams DAILY [facility] Administration Scopolamine HBr 1 patch 11/28/18 22:45 11/28/18 22:59 Transderm-Scop - TD 1 patch Q72H [facility] Administration Tiotropium [place] 2 puff 11/26/18 10:00 11/28/18 12:10 Spiriva Respimat IH Not Given DAILY [facility] Valacyclovir HCl 500 mg 11/26/18 10:00 11/28/18 10:24 Valtrex - PO 500 mg DAILY [facility] Administration ASSESSMENT/PLAN: Patient is a 63 year old male with history of hypertension, hyperlipidemia, insulin dependent diabetes mellitus, peripheral vascular disease, opoid dependence, multiple myeloma, admitted to ICU for acute hypoxic respiratory failure. Neurological -Patient is sedated with Propofol. -Holding home Methadone -Monitor for signs of mental status change Pulmonary Acute hypoxic, hypoxemic respiratory failure Pneumonia, +MRSA nares colonization -Attempted weaning trial today, however patient developed respiratory distress , and was re-intubated. Follow chest radiograph. -Ventilator settings: RR 18, tidal volume 450, PEEP 5, FiO2 100%. -Chest Xray prior to weaning trial showed improving atelectasis, and congestive changes -Vancomycin 1250mg IV daily -Zosyn 4.5 grams Q8H -Directional suctioning for left sided mucus plugging -Methylprednisone 40mg IV BID -Lasix 40mg IV BID -DuoNebs Q6H, Spiriva 2 puffs IH daily -Maintain oxygen saturation greater than 90% Cardiovascular Hypertension NSTEMI -Troponin peaked at 18.5. -Patient is on Heparin drip. Follow PTT -Aspirin 81mg GT daily -Cardiac ECHO shows EF 45-50%, mild global hypokinesis, grade I diastolic dysfunction. -Arterial doppler right upper extremity shows decreased monophasic flow within right radial and ulnar arteries. Follow vascular surgery consult. Gastrointestinal Constipation -resolved History of Hepatitis C -HCV RNA PCR negative -Enteral feeds via NG tube (Nepro) Endocrine Insulin dependent diabetes mellitus -Insulin sliding scale ACHS -Fingerstick blood glucose monitoring ACHS -Gabapentin 100mg PO TID for peripheral neuropathy Hematologic Multiple Myeloma -Hb 8.6, Hct 24.8 -S/P 1 unit PRBC transfusion -Maintain Hb above 8.0 -Multiple myeloma treatment currently on hold, per hematology -Hematology recommendations appreciated Renal DARIO BUN 28, Cr 1.4 -improving Hypocalcemia -Corrected Ca = 8.1. Replete with 1000mg IVPB calcium gluconate. -Nephrology recommendations (Dr. Cates) appreciated FEN -Fluids: No IV fluids -Electrolytes: Hypocalcemia, repleted. Follow CMP; replete as necessary. -Nutrition: Enteral feeds via NG tube (Nepro) Prophylaxis -Patient is on Heparin drip for NSTEMI Disposition -Continue care in ICU. Patient is Full Code Visit type - Emergency Visit Emergency Visit: Yes ED Registration Date: 11/20/18 Care time: The patient presented to the Emergency Department on the above date and was hospitalized for further evaluation of their emergent condition. - New Patient This patient is new to me today: No - Critical Care Critical Care patient: Yes Total Critical Care Time (in minutes): 45 Critical Care Statement: The care of this patient involved high complexity decision making to prevent further life threatening deterioration of the patient 's condition and/or to evaluate & treat vital organ system(s) failure or risk of failure. - Discharge Referral Referred to [facility] Med P.C.: No
[2018-11-29 08:18] LABS: ALBUMIN 2.3 g/dl (3.4-5.0); ALK PHOS 91 U/L (45-117); ANION GAP 10 MMOL/L (8-16); BILIRUBIN,TOTAL 0.7 mg/dL (0.2-1); BLOOD UREA NITROGEN 28 mg/dL (7-18); CHLORIDE 102 mmol/L (98-107); CO2 24 mmol/L (21-32); CREATININE 1.4 mg/dL (0.55-1.3); GLUCOSE,RANDOM 210 mg/dL (74-106); MAGNESIUM 1.8 mg/dL (1.8-2.4); PHOSPHOROUS 4.2 mg/dL (2.5-4.9); POTASSIUM 3.9 mmol/L (3.5-5.1); SGOT/AST 52 U/L (15-37); SGPT/ALT 31 U/L (13-61); SODIUM 135 mmol/L (136-145); TOT PROT 5.2 g/dl (6.4-8.2)
[2018-11-29] MEDS: HEPARIN NA (PORCINE) 5,000 UNITS/ML 1ML VIAL IVPUSH PRN (08:35)
[2018-11-29 09:16] LABS: CALCIUM 6.7 mg/dL (8.5-10.1)
--- NOTE | 2018-11-29 09:37 | PN ---
Progress Note, Physician History of Present Illness: on vent more comfortable - Current Medication List Current Medications: Active Medications Acetaminophen (Tylenol -) 650 mg PO Q6H PRN PRN Reason: FEVER Albuterol/Ipratropium (Duoneb -) 1 amp NEB Q6H PRN PRN Reason: SHORTNESS OF BREATH Allopurinol (Zyloprim -) 300 mg PO DAILY [facility] Last Admin: 11/28/18 12:06 Dose: 300 mg Aspirin (Asa -) 81 mg PO DAILY [facility] Last Admin: 11/28/18 10:21 Dose: 81 mg Buspirone HCl (Buspar -) 15 mg PO BID [facility] Last Admin: 11/28/18 22:13 Dose: Not Given Calcium Carbonate/Cholecalciferol (Os-Kyler 500+D -) 1 tab PO DAILY [facility] Last Admin: 11/28/18 10:24 Dose: 1 tab Chlorhexidine Gluconate (Hibiclens For Decolonization -) 1 applic TP HS [facility] Last Admin: 11/28/18 22:14 Dose: 1 applic Chlorhexidine Gluconate (Peridex -) 15 ml MM BID [facility] Last Admin: 11/28/18 22:14 Dose: 15 ml Docusate Sodium (Colace -) 100 mg PO BID PRN PRN Reason: CONSTIPATION Furosemide (Lasix Injection -) 40 mg IVPUSH DAILY [facility] Last Admin: 11/28/18 10:24 Dose: 40 mg Gabapentin (Neurontin -) 100 mg PO TID [facility] Last Admin: 11/29/18 05:18 Dose: 100 mg Heparin Sodium (Porcine) (Heparin -) 5,000 unit IVPUSH PRN PRN PRN Reason: Heparin Heparin Sodium (Porcine) (Heparin -) 1,000 unit IVPUSH PRN PRN PRN Reason: Heparin Last Admin: 11/29/18 08:35 Dose: 1,000 unit Heparin Sodium (Porcine) 25, (000 unit/ Sodium Chloride) 500 mls @ 20 mls/hr IV TITR [facility]; Protocol Last Titration: 11/29/18 08:30 Dose: 1,200 unit/hr, 24 mls/hr Propofol (Diprivan -) 1,000,000 mcg in 100 mls @ 9.349 mls/hr IVPB TITR [facility]; Protocol Last Admin: 11/29/18 05:41 Dose: 60 mcg/kg/min, 37.394 mls/hr Fentanyl 500 mcg/ Dextrose 100 mls @ 10 mls/hr IVPB TITR [facility]; Protocol Last Admin: 11/29/18 08:00 Dose: 100 mcg/hr, 20 mls/hr Piperacillin Sod/Tazobactam (Sod 4.5 gm/ Dextrose) 100 mls @ 200 mls/hr IVPB Q8H-IV [facility]; Protocol Last Admin: 11/29/18 01:10 Dose: 200 mls/hr Vancomycin HCl 1,250 mg/ (Dextrose) 250 mls @ 250 mls/2 hr IVPB Q24H [facility]; Protocol Last Admin: 11/28/18 12:07 Dose: 250 mls/2 hr Insulin Aspart (Novolog Vial Sliding Scale -) 1 vial SQ ACHS [facility]; Protocol Last Admin: 11/29/18 06:42 Dose: 2 units Insulin Detemir (Levemir Vial) 40 units SQ HS [facility] Last Admin: 11/28/18 22:15 Dose: 40 units Methadone HCl (Dolophine -) 80 mg PO DAILY@0600 [facility] Last Admin: 11/29/18 06:42 Dose: Not Given Methylprednisolone Sodium Succinate (Solu-Medrol -) 40 mg IVPUSH BID [facility] Last Admin: 11/28/18 22:15 Dose: 40 mg Midazolam HCl (Versed -) 2 mg IVPUSH Q4H PRN PRN Reason: AGITATION Mupirocin (Bactroban Ointment (For Decolonization) -) 1 applic NS BID [facility] Stop: 11/30/18 21:59 Last Admin: 11/28/18 22:14 Dose: 1 applic Polyethylene Glycol (Miralax (For Daily Use) -) 17 gm PO DAILY [facility] Last Admin: 11/28/18 11:57 Dose: 17 grams Scopolamine HBr (Transderm-Scop -) 1 patch TD Q72H [facility] Last Admin: 11/28/18 22:59 Dose: 1 patch Tiotropium [place] (Spiriva Respimat) 2 puff IH DAILY [facility] Last Admin: 11/28/18 12:10 Dose: Not Given Valacyclovir HCl (Valtrex -) 500 mg PO DAILY [facility] Last Admin: 11/28/18 10:24 Dose: 500 mg - Objective Vital Signs: Vital Signs Temperature 98.6 F 11/29/18 08:00 Pulse Rate 68 11/29/18 08:00 Respiratory Rate 18 11/29/18 06:44 Blood Pressure 131/80 11/29/18 08:00 O2 Sat by Pulse Oximetry (%) 100 11/29/18 06:30 Cardiovascular: Yes: S1, S2 Respiratory: Yes: Diminished, Mechanically Ventilated Gastrointestinal: Yes: Normal Bowel Sounds, Soft Labs: CBC, BMP 11/29/18 05:30 11/29/18 05:30 INR, PTT INR 1.05 (0.83-1.09) 11/25/18 20:00 Fibrinogen > 500.0 mg/dL (238-498) H 11/25/18 20:00 Problem List - Problems (1) Respiratory failure Assessment/Plan: -mechanical vent -pulmonary consult -bronchodilators -r/o HCAP -IV abx -ID on board Code(s): J96.90 - RESPIRATORY FAILURE, UNSP, UNSP W HYPOXIA OR HYPERCAPNIA (2) CKD (chronic kidney disease) Assessment/Plan: -improved -nephrology on board -monitor trend Code(s): N18.9 - CHRONIC KIDNEY DISEASE, UNSPECIFIED (3) Diabetes Assessment/Plan: -bgm ac hs -Check A1c -Insulin: Novolog+Levemir -RD on board -endocrinology consult Code(s): E11.9 - TYPE 2 DIABETES MELLITUS WITHOUT COMPLICATIONS Qualifiers: Diabetes mellitus type: type 2 (4) Hyponatremia Assessment/Plan: dc ivf monitor Code(s): E87.1 - HYPO-OSMOLALITY AND HYPONATREMIA (5) Narcotic dependence Assessment/Plan: methadone Code(s): F11.20 - OPIOID DEPENDENCE, UNCOMPLICATED (6) Vertebral compression fracture Assessment/Plan: radiation oncology and JOSE MANUEL Code(s): M48.50XA - COLLAPSED VERTEBRA, NEC, SITE UNSP, INIT (3) Hyponatremia Assessment/Plan: ivf sodium from 125 to 129 Code(s): E87.1 - HYPO-OSMOLALITY AND HYPONATREMIA (4) Diabetes Assessment/Plan: levemir Code(s): E11.9 - TYPE 2 DIABETES MELLITUS WITHOUT COMPLICATIONS Qualifiers: Diabetes mellitus type: type 2 (5) Multiple myeloma Assessment/Plan: apreicate oncology eval Code(s): C90.00 - MULTIPLE MYELOMA NOT HAVING ACHIEVED REMISSION Code(s): M48.50XA - COLLAPSED VERTEBRA, NEC, SITE UNSP, INIT (7) Edema Assessment/Plan: dc ivf duplex Code(s): R60.9 - EDEMA, UNSPECIFIED (8) Constipation Assessment/Plan: -mineral oil enema -Having BM Code(s): K59.00 - CONSTIPATION, UNSPECIFIED Qualifiers: Constipation type: unspecified constipation type Qualified Code(s): K59.00 - Constipation, unspecified (9) Anemia Assessment/Plan: -guaiac negative, would repeat -H/H trending down -check Iron, thyroid profile, B12, FA -monitor trend Code(s): D64.9 - ANEMIA, UNSPECIFIED (10) Elevated troponin Assessment/Plan: monitor trend -EKG unchanged -cardiology -cardiac monitoring -heparin drip -Echo Code(s): R74.8 - ABNORMAL LEVELS OF OTHER SERUM ENZYMES (11) Multiple myeloma Assessment/Plan: -Oncology on board Code(s): C90.00 - MULTIPLE MYELOMA NOT HAVING ACHIEVED REMISSION (12) Pulmonary congestion Assessment/Plan: - -Furosemide 40 mg IVP daily -serial CXR -Cardiology+Pulmonary on board Code(s): R09.89 - OTH SYMPTOMS AND SIGNS INVOLVING THE CIRC AND RESP SYSTEMS
[2018-11-29] MEDS ORDERED: PT OWN MED DRAWER 7, Y5N ONE ×3 (10:00→23:21)
[2018-11-29] MEDS: CALCIUM 500MG/VIT-D 200 UNITS COMBO TABLET (FP) PO SCH (10:04)
[2018-11-29] MEDS: FUROSEMIDE 40 MG/4 ML INJECTABLE VIAL IVPUSH SCH ×2 (10:04→17:00)
[2018-11-29] MEDS: methylPREDNISolone NA SUCC 40 MG/1 ML VIAL IVPUSH SCH ×2 (10:04→22:12)
[2018-11-29] MEDS: ALLOPURINOL 300 MG TABLET (FP) PO SCH (10:04)
[2018-11-29] MEDS: POLYETHYLENE GLYCOL 3350 119 GM BTL PO SCH (10:04)
[2018-11-29] MEDS: valACYclovir HCL 500 MG TABLET (FP) PO SCH (10:04)
[2018-11-29] MEDS: ASPIRIN 81 MG CHEWABLE TABLETS PO SCH (10:04)
[2018-11-29] MEDS: MUPIROCIN 2% TOPICAL OINTMENT FOR DECOLONIZATION NS SCH ×2 (10:05→22:10)
--- NOTE | 2018-11-29 10:35 | PN ---
Progress Note, Physician Chief Complaint: intubated and sedated telemetry without events. History of Present Illness: The patient is a 63-year-old man, with a history of diabetes, hypertension, hyperlipidemia, peripheral vascular disease, hepatitis C, opioid abuse, on methadone, multiple myeloma, who was admitted with nausea vomiting and abdominal pain with constipation. Developed acute respiratory distress, was intubated and transferred to the ICU. Troponins found to be elevated. There were ECG changes. Echo 11/28/18 EF 45-50 global HK, mild MR, FCDAOV. CXR with volume loss, resolved congestive changes Undergoing weaning trial. - Current Medication List Current Medications: Active Medications Acetaminophen (Tylenol -) 650 mg PO Q6H PRN PRN Reason: FEVER Albuterol/Ipratropium (Duoneb -) 1 amp NEB Q6H PRN PRN Reason: SHORTNESS OF BREATH Allopurinol (Zyloprim -) 300 mg PO DAILY [facility] Last Admin: 11/29/18 10:04 Dose: 300 mg Aspirin (Asa -) 81 mg PO DAILY [facility] Last Admin: 11/29/18 10:04 Dose: 81 mg Buspirone HCl (Buspar -) 15 mg PO BID [facility] Last Admin: 11/28/18 22:13 Dose: Not Given Calcium Carbonate/Cholecalciferol (Os-Kyler 500+D -) 1 tab PO DAILY [facility] Last Admin: 11/29/18 10:04 Dose: 1 tab Chlorhexidine Gluconate (Hibiclens For Decolonization -) 1 applic TP HS [facility] Last Admin: 11/28/18 22:14 Dose: 1 applic Chlorhexidine Gluconate (Peridex -) 15 ml MM BID [facility] Last Admin: 11/28/18 22:14 Dose: 15 ml Docusate Sodium (Colace -) 100 mg PO BID PRN PRN Reason: CONSTIPATION Furosemide (Lasix Injection -) 40 mg IVPUSH DAILY [facility] Last Admin: 11/29/18 10:04 Dose: 40 mg Gabapentin (Neurontin -) 100 mg PO TID [facility] Last Admin: 11/29/18 05:18 Dose: 100 mg Heparin Sodium (Porcine) (Heparin -) 5,000 unit IVPUSH PRN PRN PRN Reason: Heparin Heparin Sodium (Porcine) (Heparin -) 1,000 unit IVPUSH PRN PRN PRN Reason: Heparin Last Admin: 11/29/18 08:35 Dose: 1,000 unit Heparin Sodium (Porcine) 25, (000 unit/ Sodium Chloride) 500 mls @ 20 mls/hr IV TITR [facility]; Protocol Last Titration: 11/29/18 08:30 Dose: 1,200 unit/hr, 24 mls/hr Propofol (Diprivan -) 1,000,000 mcg in 100 mls @ 9.349 mls/hr IVPB TITR [facility]; Protocol Last Admin: 11/29/18 10:05 Dose: 60 mcg/kg/min, 37.394 mls/hr Fentanyl 500 mcg/ Dextrose 100 mls @ 10 mls/hr IVPB TITR [facility]; Protocol Last Admin: 11/29/18 08:00 Dose: 100 mcg/hr, 20 mls/hr Piperacillin Sod/Tazobactam (Sod 4.5 gm/ Dextrose) 100 mls @ 200 mls/hr IVPB Q8H-IV [facility]; Protocol Last Admin: 11/29/18 01:10 Dose: 200 mls/hr Vancomycin HCl 1,250 mg/ (Dextrose) 250 mls @ 250 mls/2 hr IVPB Q24H [facility]; Protocol Last Admin: 11/28/18 12:07 Dose: 250 mls/2 hr Insulin Aspart (Novolog Vial Sliding Scale -) 1 vial SQ ACHS [facility]; Protocol Last Admin: 11/29/18 06:42 Dose: 2 units Insulin Detemir (Levemir Vial) 40 units SQ HS [facility] Last Admin: 11/28/18 22:15 Dose: 40 units Methadone HCl (Dolophine -) 80 mg PO DAILY@0600 [facility] Last Admin: 11/29/18 06:42 Dose: Not Given Methylprednisolone Sodium Succinate (Solu-Medrol -) 40 mg IVPUSH BID [facility] Last Admin: 11/29/18 10:04 Dose: 40 mg Midazolam HCl (Versed -) 2 mg IVPUSH Q4H PRN PRN Reason: AGITATION Mupirocin (Bactroban Ointment (For Decolonization) -) 1 applic NS BID [facility] Stop: 11/30/18 21:59 Last Admin: 11/29/18 10:05 Dose: 1 applic Polyethylene Glycol (Miralax (For Daily Use) -) 17 gm PO DAILY [facility] Last Admin: 11/29/18 10:04 Dose: 17 grams Scopolamine HBr (Transderm-Scop -) 1 patch TD Q72H [facility] Last Admin: 11/28/18 22:59 Dose: 1 patch Tiotropium [place] (Spiriva Respimat) 2 puff IH DAILY [facility] Last Admin: 11/28/18 12:10 Dose: Not Given Valacyclovir HCl (Valtrex -) 500 mg PO DAILY [facility] Last Admin: 11/29/18 10:04 Dose: 500 mg - Objective Vital Signs: Vital Signs Temperature 98.6 F 11/29/18 08:00 Pulse Rate 68 11/29/18 08:00 Respiratory Rate 18 11/29/18 06:44 Blood Pressure 131/80 11/29/18 08:00 O2 Sat by Pulse Oximetry (%) 100 11/29/18 06:30 Constitutional: Yes: No Distress, Calm Eyes: Yes: EOM Intact HENT: Yes: Normocephalic Neck: Yes: Trachea Midline Cardiovascular: Yes: Regular Rate and Rhythm Respiratory: Yes: Mechanically Ventilated Gastrointestinal: Yes: Normal Bowel Sounds, Soft Edema: Yes Edema: LLE: 1+, RLE: 1+ Peripheral Pulses WNL: Yes Labs: CBC, BMP 11/29/18 05:30 11/29/18 05:30 INR, PTT INR 1.05 (0.83-1.09) 11/25/18 20:00 Fibrinogen > 500.0 mg/dL (238-498) H 11/25/18 20:00 Assessment/Plan The patient is a 63-year-old man, with a history of diabetes, hypertension, hyperlipidemia, peripheral vascular disease, hepatitis C, opioid abuse, on methadone, multiple myeloma, who was admitted with nausea vomiting and abdominal pain with constipation. Developed acute respiratory distress, was intubated and transferred to the ICU. Troponins found to be elevated. There were ECG changes. The patient remains intubated and sedated. Fluid overloaded. Echo is unchanged from July 2018. Continue IV lasix. Transfuse as needed, wean as per ICU team. Conservative cardiac care. He is not a candidate for cardiac cath.
[2018-11-29] MEDS: CHLORHEXIDINE GLUCONATE 0.12% 15ML CUP MM SCH ×2 (10:45→22:18)
[2018-11-29] MEDS: TIOTROPIUM BROMIDE 2.5 MCG (SPIRIVA) RESPIMAT INHALER IH SCH (12:01)
[2018-11-29] MEDS: VANCOMYCIN HCL 1,250 MG in DEXTROSE 5%-WATER - 250 ML IVPB SCH (12:01)
[2018-11-29] MEDS ORDERED: CALCIUM GLUCONATE 10% - 1,000 MG/10 ML VIAL IVPB ONE (12:15)
--- NOTE | 2018-11-29 12:18 | PN ---
Teaching Attending Note Name of Resident: Tarun Guzmán ATTENDING PHYSICIAN STATEMENT I saw and evaluated the patient. I reviewed the resident's note and discussed the case with the resident. I agree with the resident's findings and plan as documented. SUBJECTIVE: Patient seen and examined in the ICU. Remains intubated and sedated. AC mode of vent, 50%. Intake & Output 11/26/18 11/27/18 11/28/18 11/29/18 23:59 23:59 23:59 23:59 Intake Total 1120 1522 3660 1974 Output Total 2300 2900 3000 450 Balance -1180 -8529 950 7644 Weight 238 lb 9 oz 237 lb 7.005 oz 229 lb 8.019 oz 229 lb 1.6 oz Last Vital Signs Temp Pulse Resp BP Pulse Ox 98.6 F 68 24 H 130/28 L 100 11/29/18 10:00 11/29/18 08:00 11/29/18 11:00 11/29/18 10:00 11/29/18 06:30 Active Medications Acetaminophen (Tylenol -) 650 mg PO Q6H PRN PRN Reason: FEVER Albuterol/Ipratropium (Duoneb -) 1 amp NEB Q6H PRN PRN Reason: SHORTNESS OF BREATH Allopurinol (Zyloprim -) 300 mg PO DAILY [facility] Last Admin: 11/29/18 10:04 Dose: 300 mg Aspirin (Asa -) 81 mg PO DAILY [facility] Last Admin: 11/29/18 10:04 Dose: 81 mg Buspirone HCl (Buspar -) 15 mg PO BID [facility] Last Admin: 11/28/18 22:13 Dose: Not Given Calcium Carbonate/Cholecalciferol (Os-Kyler 500+D -) 1 tab PO DAILY [facility] Last Admin: 11/29/18 10:04 Dose: 1 tab Chlorhexidine Gluconate (Hibiclens For Decolonization -) 1 applic TP HS [facility] Last Admin: 11/28/18 22:14 Dose: 1 applic Chlorhexidine Gluconate (Peridex -) 15 ml MM BID [facility] Last Admin: 11/29/18 10:45 Dose: 15 ml Docusate Sodium (Colace -) 100 mg PO BID PRN PRN Reason: CONSTIPATION Furosemide (Lasix Injection -) 40 mg IVPUSH DAILY [facility] Last Admin: 11/29/18 10:04 Dose: 40 mg Gabapentin (Neurontin -) 100 mg PO TID [facility] Last Admin: 11/29/18 11:18 Dose: Not Given Heparin Sodium (Porcine) (Heparin -) 5,000 unit IVPUSH PRN PRN PRN Reason: Heparin Heparin Sodium (Porcine) (Heparin -) 1,000 unit IVPUSH PRN PRN PRN Reason: Heparin Last Admin: 11/29/18 08:35 Dose: 1,000 unit Heparin Sodium (Porcine) 25, (000 unit/ Sodium Chloride) 500 mls @ 20 mls/hr IV TITR [facility]; Protocol Last Titration: 11/29/18 08:30 Dose: 1,200 unit/hr, 24 mls/hr Propofol (Diprivan -) 1,000,000 mcg in 100 mls @ 9.349 mls/hr IVPB TITR [facility]; Protocol Last Admin: 11/29/18 10:05 Dose: 60 mcg/kg/min, 37.394 mls/hr Piperacillin Sod/Tazobactam (Sod 4.5 gm/ Dextrose) 100 mls @ 200 mls/hr IVPB Q8H-IV YAKOV; Protocol Last Admin: 11/29/18 11:00 Dose: 200 mls/hr Vancomycin HCl 1,250 mg/ (Dextrose) 250 mls @ 250 mls/2 hr IVPB Q24H [facility]; Protocol Last Admin: 11/29/18 12:01 Dose: 250 mls/2 hr Insulin Aspart (Novolog Vial Sliding Scale -) 1 vial SQ ACHS [facility]; Protocol Last Admin: 11/29/18 12:04 Dose: Not Given Insulin Detemir (Levemir Vial) 40 units SQ HS [facility] Last Admin: 11/28/18 22:15 Dose: 40 units Methadone HCl (Dolophine -) 80 mg PO DAILY@0600 [facility] Last Admin: 11/29/18 06:42 Dose: Not Given Methylprednisolone Sodium Succinate (Solu-Medrol -) 40 mg IVPUSH BID [facility] Last Admin: 11/29/18 10:04 Dose: 40 mg Midazolam HCl (Versed -) 2 mg IVPUSH Q4H PRN PRN Reason: AGITATION Mupirocin (Bactroban Ointment (For Decolonization) -) 1 applic NS BID [facility] Stop: 11/30/18 21:59 Last Admin: 11/29/18 10:05 Dose: 1 applic Polyethylene Glycol (Miralax (For Daily Use) -) 17 gm PO DAILY [facility] Last Admin: 11/29/18 10:04 Dose: 17 grams Scopolamine HBr (Transderm-Scop -) 1 patch TD Q72H [facility] Last Admin: 11/28/18 22:59 Dose: 1 patch Tiotropium [place] (Spiriva Respimat) 2 puff IH DAILY [facility] Last Admin: 11/29/18 12:01 Dose: Not Given Valacyclovir HCl (Valtrex -) 500 mg PO DAILY [facility] Last Admin: 11/29/18 10:04 Dose: 500 mg Gen: sedated, vented HEENT: PERRL, EOMI PULM: coarse crackles, decreased on the left, no wheeze CV: S1S2, (-) murmur ABD: soft lightly distended, hypoactive BS EXT; LE dependent edema ELECTRICIAN LOCOMOTIVE: sedated Laboratory Results - last 24 hr 11/25/18 11/28/18 11/28/18 20:00 05:15 12:10 WBC RBC Hgb Hct MCV MCH MCHC RDW Plt Count MPV PTT (Actin FS) Puncture Site Right radial ABG pH 7.31 L ABG pCO2 at Pt Temp 46.9 H ABG pO2 at Pt Temp 96.9 D ABG HCO3 22.8 ABG O2 Sat (Measured) 94.9 ABG O2 Content 11.4 L ABG Base Excess -2.8 L Benny Test Positive O2 Delivery Device Vent Oxygen Flow Rate 50% Vent Mode A/c Vent Rate 18 Mechanical Rate Yes PEEP 8.0 Pressure Support Vent 450 Sodium Potassium Chloride Carbon Dioxide Anion Gap BUN Creatinine Creat Clearance w eGFR POC Glucometer Random Glucose Calcium Phosphorus Magnesium Iron 28 L TIBC 245 L Iron Saturation 11 L Total Bilirubin AST ALT Alkaline Phosphatase CK-BB (CK-1) 0 CK/CKMB % Calc 0 Total Protein Albumin Stool Occult Blood Blood Type Antibody Screen Crossmatch 11/28/18 11/28/18 11/28/18 12:20 16:36 19:30 WBC 5.2 RBC 3.32 L Hgb 9.8 L Hct 28.1 L D MCV 84.6 MCH 29.6 MCHC 35.0 RDW 17.8 H Plt Count 213 MPV 7.7 PTT (Actin FS) Puncture Site ABG pH ABG pCO2 at Pt Temp ABG pO2 at Pt Temp ABG HCO3 ABG O2 Sat (Measured) ABG O2 Content ABG Base Excess Benny Test O2 Delivery Device Oxygen Flow Rate Vent Mode Vent Rate Mechanical Rate PEEP Pressure Support Vent Sodium Potassium Chloride Carbon Dioxide Anion Gap BUN Creatinine Creat Clearance w eGFR POC Glucometer 146 Random Glucose Calcium Phosphorus Magnesium Iron TIBC Iron Saturation Total Bilirubin AST ALT Alkaline Phosphatase CK-BB (CK-1) CK/CKMB % Calc Total Protein Albumin Stool Occult Blood Blood Type A POSITIVE Antibody Screen Negative Crossmatch See Detail 11/28/18 11/29/18 11/29/18 22:09 05:17 05:30 WBC 4.8 RBC 2.95 L Hgb 8.6 L Hct 24.8 L MCV 84.0 MCH 29.1 MCHC 34.6 RDW 17.4 H Plt Count 185 MPV 7.3 L PTT (Actin FS) Puncture Site ABG pH ABG pCO2 at Pt Temp ABG pO2 at Pt Temp ABG HCO3 ABG O2 Sat (Measured) ABG O2 Content ABG Base Excess Benny Test O2 Delivery Device Oxygen Flow Rate Vent Mode Vent Rate Mechanical Rate PEEP Pressure Support Vent Sodium Potassium Chloride Carbon Dioxide Anion Gap BUN Creatinine Creat Clearance w eGFR POC Glucometer 170 189 Random Glucose Calcium Phosphorus Magnesium Iron TIBC Iron Saturation Total Bilirubin AST ALT Alkaline Phosphatase CK-BB (CK-1) CK/CKMB % Calc Total Protein Albumin Stool Occult Blood Blood Type Antibody Screen Crossmatch 11/29/18 11/29/18 11/29/18 05:30 05:30 06:10 WBC RBC Hgb Hct MCV MCH MCHC RDW Plt Count MPV PTT (Actin FS) 48.9 H Puncture Site ABG pH ABG pCO2 at Pt Temp ABG pO2 at Pt Temp ABG HCO3 ABG O2 Sat (Measured) ABG O2 Content ABG Base Excess Benny Test O2 Delivery Device Oxygen Flow Rate Vent Mode Vent Rate Mechanical Rate PEEP Pressure Support Vent Sodium 135 L Potassium 3.9 Chloride 102 Carbon Dioxide 24 Anion Gap 10 BUN 28 H Creatinine 1.4 H Creat Clearance w eGFR 50.86 POC Glucometer Random Glucose 210 H Calcium 6.7 L* Phosphorus 4.2 Magnesium 1.8 Iron TIBC Iron Saturation Total Bilirubin 0.7 AST 52 H ALT 31 Alkaline Phosphatase 91 CK-BB (CK-1) CK/CKMB % Calc Total Protein 5.2 L Albumin 2.3 L Stool Occult Blood Negative Blood Type Antibody Screen Crossmatch ASSESSMENT/PLAN: Acute Respiratory Failure CAP Suspected Acute Pulmonary Edema HTN Troponemia IIDM DARIO on CKD Methadone maintenance Sedation vacation and wean trials as tolerated ABX IV Heparin Strict I & O BD TX Medrol Follow CXR Transfusion threshold: Hgb = 8 Enteral feeds Lasix Hope to extubate next 1 to 2 days Requires ICU monitoring Dr Culver Critical care time spent in reviewing chart, evaluating patient and formulating plan - 36 minutes.
--- NOTE | 2018-11-29 13:11 | PN ---
Progress Note, Physician History of Present Illness: Pt seen and examined at bedside. He remains in the ICU. He remains intubated. - Current Medication List Current Medications: Active Medications Acetaminophen (Tylenol -) 650 mg PO Q6H PRN PRN Reason: FEVER Albuterol/Ipratropium (Duoneb -) 1 amp NEB Q6H PRN PRN Reason: SHORTNESS OF BREATH Allopurinol (Zyloprim -) 300 mg PO DAILY [facility] Last Admin: 11/29/18 10:04 Dose: 300 mg Aspirin (Asa -) 81 mg PO DAILY [facility] Last Admin: 11/29/18 10:04 Dose: 81 mg Buspirone HCl (Buspar -) 15 mg PO BID [facility] Last Admin: 11/28/18 22:13 Dose: Not Given Calcium Carbonate/Cholecalciferol (Os-Kyler 500+D -) 1 tab PO DAILY [facility] Last Admin: 11/29/18 10:04 Dose: 1 tab Chlorhexidine Gluconate (Hibiclens For Decolonization -) 1 applic TP HS [facility] Last Admin: 11/28/18 22:14 Dose: 1 applic Chlorhexidine Gluconate (Peridex -) 15 ml MM BID [facility] Last Admin: 11/29/18 10:45 Dose: 15 ml Docusate Sodium (Colace -) 100 mg PO BID PRN PRN Reason: CONSTIPATION Furosemide (Lasix Injection -) 40 mg IVPUSH DAILY [facility] Last Admin: 11/29/18 10:04 Dose: 40 mg Gabapentin (Neurontin -) 100 mg PO TID [facility] Last Admin: 11/29/18 11:18 Dose: Not Given Heparin Sodium (Porcine) (Heparin -) 5,000 unit IVPUSH PRN PRN PRN Reason: Heparin Heparin Sodium (Porcine) (Heparin -) 1,000 unit IVPUSH PRN PRN PRN Reason: Heparin Last Admin: 11/29/18 08:35 Dose: 1,000 unit Heparin Sodium (Porcine) 25, (000 unit/ Sodium Chloride) 500 mls @ 20 mls/hr IV TITR [facility]; Protocol Last Titration: 11/29/18 08:30 Dose: 1,200 unit/hr, 24 mls/hr Propofol (Diprivan -) 1,000,000 mcg in 100 mls @ 9.349 mls/hr IVPB TITR [facility]; Protocol Last Admin: 11/29/18 10:05 Dose: 60 mcg/kg/min, 37.394 mls/hr Piperacillin Sod/Tazobactam (Sod 4.5 gm/ Dextrose) 100 mls @ 200 mls/hr IVPB Q8H-IV [facility]; Protocol Last Admin: 11/29/18 11:00 Dose: 200 mls/hr Vancomycin HCl 1,250 mg/ (Dextrose) 250 mls @ 250 mls/2 hr IVPB Q24H [facility]; Protocol Last Admin: 11/29/18 12:01 Dose: 250 mls/2 hr Insulin Aspart (Novolog Vial Sliding Scale -) 1 vial SQ ACHS [facility]; Protocol Last Admin: 11/29/18 12:22 Dose: 2 units Insulin Detemir (Levemir Vial) 40 units SQ HS [facility] Last Admin: 11/28/18 22:15 Dose: 40 units Methadone HCl (Dolophine -) 80 mg PO DAILY@0600 [facility] Last Admin: 11/29/18 06:42 Dose: Not Given Methylprednisolone Sodium Succinate (Solu-Medrol -) 40 mg IVPUSH BID [facility] Last Admin: 11/29/18 10:04 Dose: 40 mg Midazolam HCl (Versed -) 2 mg IVPUSH Q4H PRN PRN Reason: AGITATION Mupirocin (Bactroban Ointment (For Decolonization) -) 1 applic NS BID [facility] Stop: 11/30/18 21:59 Last Admin: 11/29/18 10:05 Dose: 1 applic Polyethylene Glycol (Miralax (For Daily Use) -) 17 gm PO DAILY [facility] Last Admin: 11/29/18 10:04 Dose: 17 grams Scopolamine HBr (Transderm-Scop -) 1 patch TD Q72H [facility] Last Admin: 11/28/18 22:59 Dose: 1 patch Tiotropium [place] (Spiriva Respimat) 2 puff IH DAILY [facility] Last Admin: 11/29/18 12:01 Dose: Not Given Valacyclovir HCl (Valtrex -) 500 mg PO DAILY [facility] Last Admin: 11/29/18 10:04 Dose: 500 mg - Objective Vital Signs: Vital Signs Temperature 98.6 F 11/29/18 10:00 Pulse Rate 68 11/29/18 08:00 Respiratory Rate 24 H 11/29/18 11:00 Blood Pressure 130/28 L 11/29/18 10:00 O2 Sat by Pulse Oximetry (%) 100 11/29/18 06:30 Constitutional: Yes: Calm Eyes: Yes: Conjunctiva Clear HENT: Yes: Atraumatic Neck: Yes: Supple Cardiovascular: Yes: S1, S2 Respiratory: Yes: Mechanically Ventilated Gastrointestinal: Yes: Soft Genitourinary: Yes: Massey Present Musculoskeletal: Yes: Muscle Weakness Edema: Yes Edema: LLE: 1+, RLE: 1+ Neurological: Yes: Lethargy Labs: CBC, BMP 11/29/18 05:30 11/29/18 05:30 INR, PTT INR 1.05 (0.83-1.09) 11/25/18 20:00 Fibrinogen > 500.0 mg/dL (238-498) H 11/25/18 20:00 - ....Imaging Chest X-ray: Report Reviewed Problem List - Problems (1) CKD (chronic kidney disease) Code(s): N18.9 - CHRONIC KIDNEY DISEASE, UNSPECIFIED (2) Constipation Code(s): K59.00 - CONSTIPATION, UNSPECIFIED Qualifiers: Constipation type: unspecified constipation type Qualified Code(s): K59.00 - Constipation, unspecified (3) Hyponatremia Code(s): E87.1 - HYPO-OSMOLALITY AND HYPONATREMIA Assessment/Plan Current Medications Generic Name Dose Route Start Last Admin Trade Name Freq PRN Reason Stop Dose Admin Acetaminophen 650 mg 11/26/18 08:54 Tylenol - PO Q6H PRN FEVER Albuterol/Ipratropium 1 amp 11/25/18 21:18 Duoneb - NEB Q6H PRN SHORTNESS OF BREATH Allopurinol 300 mg 11/26/18 10:00 11/29/18 10:04 Zyloprim - PO 300 mg DAILY YAKOV Administration Aspirin 81 mg 11/27/18 10:15 11/29/18 10:04 Asa - PO 81 mg DAILY [facility]AKOV Administration Buspirone HCl 15 mg 11/26/18 10:00 11/28/18 22:13 Buspar - PO Not Given BID YAKOV Calcium Carbonate/Cholecalciferol 1 tab 11/26/18 10:00 11/29/18 10:04 Os-Kyler 500+D - PO 1 tab DAILY [facility]AKOV Administration Chlorhexidine Gluconate 1 applic 11/26/18 22:00 11/28/18 22:14 Hibiclens For Decolonization - TP 1 applic HS YAKOV Administration Chlorhexidine Gluconate 15 ml 11/27/18 22:00 11/29/18 10:45 Peridex - MM 15 ml BID [facility]AKOV Administration Docusate Sodium 100 mg 11/26/18 08:54 Colace - PO BID PRN CONSTIPATION Furosemide 40 mg 11/27/18 08:02 11/29/18 10:04 Lasix Injection - IVPUSH 40 mg DAILY [facility]AKOV Administration Gabapentin 100 mg 11/26/18 14:00 11/29/18 11:18 Neurontin - PO Not Given TID YAKOV Heparin Sodium (Porcine) 5,000 unit 11/26/18 05:04 Heparin - IVPUSH PRN PRN Heparin Heparin Sodium (Porcine) 1,000 unit 11/26/18 05:04 11/29/18 08:35 Heparin - IVPUSH 1,000 unit PRN PRN Administration Heparin Heparin Sodium (Porcine) 25, 500 mls @ 20 mls/hr 11/26/18 05:15 11/29/18 08: 30 000 unit/ Sodium Chloride IV 1,200 unit/hr TITR YAKOV 24 mls/hr Titration Protocol 1,000 UNIT/HR Propofol 1,000,000 mcg in 100 mls @ 9.349 mls/hr 11/26/18 08:54 11/29/18 10: 05 Diprivan - IVPB 60 mcg/kg/min TITR [facility]AKOV 37.394 mls/hr Administration Protocol 15 MCG/KG/MIN Piperacillin Sod/Tazobactam 100 mls @ 200 mls/hr 11/28/18 18:00 11/29/18 11: 00 Sod 4.5 gm/ Dextrose IVPB 200 mls/hr Q8H-IV [facility]AKOV Administration Protocol Vancomycin HCl 1,250 mg/ 250 mls @ 250 mls/2 hr 11/28/18 10:45 11/29/18 12:01 Dextrose IVPB 250 mls/2 hr Q24H [facility]AKOV Administration Protocol Insulin Aspart 1 vial 11/26/18 11:00 11/29/18 12:22 Novolog Vial Sliding Scale - SQ 2 units ACHS [facility]AKOV Administration Protocol Insulin Detemir 40 units 11/26/18 22:00 11/28/18 22:15 Levemir Vial SQ 40 units HS [facility]AKOV Administration Methadone HCl 80 mg 11/27/18 06:00 11/29/18 06:42 Dolophine - PO Not Given DAILY@0600 [facility] Methylprednisolone Sodium Succinate 40 mg 11/28/18 11:30 11/29/18 10:04 Solu-Medrol - IVPUSH 40 mg BID [facility]OV Administration Midazolam HCl 2 mg 11/27/18 22:47 Versed - IVPUSH Q4H PRN AGITATION Mupirocin 1 applic 11/26/18 22:00 11/29/18 10:05 Bactroban Ointment (For Decolonization) - NS 11/30/18 21:59 1 applic BID [facility] Administration Polyethylene Glycol 17 gm 11/27/18 12:30 11/29/18 10:04 Miralax (For Daily Use) - PO 17 grams DAILY [facility] Administration Scopolamine HBr 1 patch 11/28/18 22:45 11/28/18 22:59 Transderm-Scop - TD 1 patch Q72H [facility] Administration Tiotropium [place] 2 puff 11/26/18 10:00 11/29/18 12:01 Spiriva Respimat IH Not Given DAILY [facility] Valacyclovir HCl 500 mg 11/26/18 10:00 11/29/18 10:04 Valtrex - PO 500 mg DAILY [facility] Administration Impression 1. hyppnatremia 2. CKD 3. nausea and vomiting 4. htn 5. DM 6. 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 multiple myeloma 9. anemia 10. proteinuria 11. hyperkalemia Plan - cont lasix, may need bid dosing - repeat cxr in am - replace calcium - monitor urine output - monitor bp - discussed with family - discussed with ICU team Dr Cates
[2018-11-29] MEDS ORDERED: RAPID SEQUENCE INTUBATION KIT NR ONE (13:57)
[2018-11-29] MEDS ORDERED: MIDAZOLAM HCL 5 MG/1 ML Single Dose Vial ONE (14:18)
[2018-11-29] MEDS ORDERED: ALBUTEROL SO4 0.083% IH SOL 2.5 MG/3 ML VIAL.NEB. NEB ONE ×2 (14:30→21:07)
[2018-11-29] MEDS ORDERED: ACETYLCYSTEINE 20% 200MG/ML 4 ML VIAL *FOR ORAL / INH USE ONLY NEB ONE (14:30)
[2018-11-29] MEDS ORDERED: MIDAZOLAM HCL 5 MG/1 ML Single Dose Vial IVPUSH ONE ×2 (14:39→14:40)
[2018-11-29] MEDS ORDERED: PROPOFOL 200 MG/20 ML VIAL IVPUSH ONE (14:41)
--- NOTE | 2018-11-29 14:43 | PROC ---
Intubation - Intubation Reason for Intubation: Respiratory Failure Time of Intubation: 02:30 Intubation Method: orotracheal Blade used: Mac Tube Size (cm): 7.5 Tube position @ lip (cm): 22 Tube position confirmed by: Direct visualization Breath Sounds after Intubation: equal Post Intubation Xray: Yes
[2018-11-29 17:10] LABS: ARTERIAL BLD GAS O2 SATURATION 98.2 % (90-98.9); ARTERIAL BLOOD GAS BASE EXCESS -3.8 meq/l (-2-2); ARTERIAL BLOOD GAS pH 7.22 (7.35-7.45)
[2018-11-29 17:52] LABS: HEMATOCRIT 29.5 % (35.4-49); HEMOGLOBIN 10.3 GM/dL (11.7-16.9); MCH 29.6 pg (25.7-33.7); MEAN CELL VOLUME 84.5 fl (80-96); MEAN PLT VOLUME 7.3 fl (7.5-11.1); PLATELET COUNT 225 K/MM3 (134-434); RBC 3.49 M/mm3 (4.00-5.60); RDW 17.6 % (11.9-15.9); WHITE BLOOD COUNT 7.1 K/mm3 (4.0-10.0)
--- NOTE | 2018-11-29 17:59 | PN ---
Progress Note (short form) - Note Progress Note: extubated earlier and then shortly thereafter re-intubated now on sedation +coffeeground emesis Vital Signs Period Temp Pulse Resp BP Sys/Andre Pulse Ox Last 24 Hr 98.2 F-98.9 F 60-116 15-36 109-178/28-98 100-100 cor-rrr lungs decreased bs at bases abd soft,nt ext no edema CBC, BMP 11/29/18 17:35 11/29/18 05:30 Microbiology 11/28/18 10:40 Sputum - Endotrachea Suction/Ventilator Gram Stain - Final 11/28/18 10:40 Sputum - Endotrachea Suction/Ventilator Sputum Culture - Preliminary Staphylococcus Latex Coag Pos 11/25/18 20:10 Blood - Peripheral Venous Blood Culture - Preliminary NO GROWTH OBTAINED AFTER 72 HOURS, INCUBATION TO CONTINUE FOR 2 DAYS. 11/25/18 20:00 Blood - Peripheral Venous Blood Culture - Preliminary NO GROWTH OBTAINED AFTER 72 HOURS, INCUBATION TO CONTINUE FOR 2 DAYS. 11/25/18 20:10 Urine - Urine Massey Urine Culture - Final NO GROWTH OBTAINED 11/26/18 13:20 Urine For Antigen Detection Legionella Antigen - Final 11/26/18 13:20 Urine For Antigen Detection Streptococcus pneumoniae Antigen (M - Final 11/20/18 08:11 Urine - Urine Clean Catch Urine Culture - Final NO GROWTH OBTAINED cxray bilateral infiltrates, ?chf a/p respiratory failure left lung pneumonia MRSA nares colonization multiple myeloma/vertebral fractures renal insufficiency-improving ccoffee ground emesis- r/o UGI bleed sputum culture vancomycin/zosyn- adjust for improving renal function check vanco level before next dose d/w ICU residents
[2018-11-29] MEDS ORDERED: OCTREOTIDE ACETATE 50 MCG/1 ML - 1 ML VIAL IVPUSH ONE (18:00)
[2018-11-29 18:07] LABS: ALLENS TEST POSITIVE
[2018-11-29 18:13] LABS: INR 1.03 (0.83-1.09); PROTHROMBIN TIME (PATIENT) 12.1 SEC (9.7-13.0)
[2018-11-29 18:16] LABS: ACTIVATED PTT 50.8 SECONDS (25.2-36.5)
[2018-11-29] MEDS: PANTOPRAZOLE SODIUM 80 MG in SODIUM CHLORIDE 100 ML IVPB SCH (18:48)
[2018-11-29] MEDS: OCTREOTIDE ACETATE 1,200 MCG in DEXTROSE 5%-WATER - 488 ML IVPB SCH (19:12)
--- NOTE | 2018-11-29 20:39 | PN ---
GI Progress Note Subjective: GI NOte: Asked to evaluate for black emesis. NG tube yielded over 500cc but no blood despite being on heparin. The patient had been extubated earlier today but failed and had to be reintubated. He had a brown BM earlier today according to the nursing staff. His daughter is at the bedside. He has autonomic neuropathy. - Objective Vital Signs: Vital Signs Temperature 98.6 F 11/29/18 18:00 Pulse Rate 110 H 11/29/18 18:00 Respiratory Rate 28 H 11/29/18 19:06 Blood Pressure 145/86 11/29/18 18:00 O2 Sat by Pulse Oximetry (%) 100 11/29/18 06:30 Laboratory Tests 11/25/18 11/26/18 11/28/18 20:00 05:30 05:15 Hgb 10.8 L 8.8 L 7.6 L 11/28/18 11/29/18 11/29/18 19:30 05:30 17:35 Hgb 9.8 L 8.6 L 10.3 L Constitutional: Other (Intubated. NG yielding thin dark brown/black fkuid) Gastrointestinal Inspection: Yes: Distention ...Auscultate: Yes: Hypoactive Bowel Sounds ...Palpate: Yes: Soft, Other (nontender) ...Percussion: Yes: Tympanitic Labs: CBC, BMP 11/29/18 17:35 11/29/18 05:30 INR, PTT INR 1.03 (0.83-1.09) 11/29/18 17:35 Fibrinogen > 500.0 mg/dL (238-498) H 11/25/18 20:00 Assessment/Plan Impression; Diabetic gastroparesis with vomting of stagnant small bowel contents Diabetic neuropathy, narcotics, sedentary state and ? chemotherapy inhibiting bowel function History of hepatitis C Plan: NG suctioning Reglan IVPB Given the HCV history and stress gastritis predisposition follow serial Hcs and give PPI and Octreotide empirically until GI bleed is exlcuded I discussed the situation with the daughter, nurse and ICU resident Problem List - Problems (1) Diabetic gastroparesis Assessment/Plan: I believe that the patient is vomiting stagnant small bowel contents rather than having a UGI bleed as I would have expected more dramatic bleeding before the heparin was stopped. I will start Reglan and continue NG suctioning. The gastroparesis is aggravated by sedentary state on ventilator and narcotic analgesics Code(s): E11.43 - TYPE 2 DIABETES W DIABETIC AUTONOMIC (POLY)NEUROPATHY; K31.84 - GASTROPARESIS (2) Constipation Code(s): K59.00 - CONSTIPATION, UNSPECIFIED Qualifiers: Constipation type: unspecified constipation type Qualified Code(s): K59.00 - Constipation, unspecified (3) Narcotic dependence Code(s): F11.20 - OPIOID DEPENDENCE, UNCOMPLICATED (4) Multiple myeloma Code(s): C90.00 - MULTIPLE MYELOMA NOT HAVING ACHIEVED REMISSION (5) Vertebral compression fracture Code(s): M48.50XA - COLLAPSED VERTEBRA, NEC, SITE UNSP, INIT (6) Diabetic neuropathy Code(s): E11.40 - TYPE 2 DIABETES MELLITUS WITH DIABETIC NEUROPATHY, UNSP (7) Diabetic retinopathy Code(s): E11.319 - TYPE 2 DIABETES W UNSP DIABETIC RTNOP W/O MACULAR EDEMA (8) History of heroin abuse Code(s): Z87.898 - PERSONAL HISTORY OF OTHER SPECIFIED CONDITIONS (9) History of cocaine abuse Code(s): Z87.898 - PERSONAL HISTORY OF OTHER SPECIFIED CONDITIONS (10) CKD (chronic kidney disease) Code(s): N18.9 - CHRONIC KIDNEY DISEASE, UNSPECIFIED (11) Neuropathy Code(s): G62.9 - POLYNEUROPATHY, UNSPECIFIED (12) Osteomyelitis Code(s): M86.9 - OSTEOMYELITIS, UNSPECIFIED Qualifiers: Osteomyelitis type: subacute Osteomyelitis location: foot (13) Type 2 diabetes mellitus with foot ulcer Code(s): E11.621 - TYPE 2 DIABETES MELLITUS WITH FOOT ULCER; L97.509 - NON- PRESSURE CHRONIC ULCER OTH PRT UNSP FOOT W UNSP SEVERITY Qualifiers: (14) Asthma Code(s): J45.909 - UNSPECIFIED ASTHMA, UNCOMPLICATED (15) Diabetes Code(s): E11.9 - TYPE 2 DIABETES MELLITUS WITHOUT COMPLICATIONS Qualifiers: Diabetes mellitus complication status: with neurologic complications Diabetes mellitus complication detail: with polyneuropathy (16) Hepatitis C Code(s): B19.20 - UNSPECIFIED VIRAL HEPATITIS C WITHOUT HEPATIC COMA
[2018-11-29] MEDS: ACETYLCYSTEINE 20% 200MG/ML 4 ML VIAL *FOR ORAL / INH USE ONLY NEB SCH (21:30)
[2018-11-29] MEDS: ALBUTEROL SO4 0.083% IH SOL 2.5 MG/3 ML VIAL.NEB. NEB PRN (21:30)
[2018-11-29] MEDS ORDERED: PANTOPRAZOLE SODIUM 40 MG VIAL IVPUSH SCH (22:00)
[2018-11-29] MEDS: METOCLOPRAMIDE HCL INJECTION 10 MG/2 ML VIAL IVPUSH SCH (22:09)
[2018-11-29] MEDS: CHLORHEXIDINE GLUCONATE 4% CLEANSER FOR DECOLONIZATION TP SCH (22:18)
[2018-11-29] MEDS: INSULIN (LEVEMIR) 100 UNITS/ML UNITS SQ SCH (22:27)
[2018-11-30] MEDS: PIPERACILLIN/TAZOB 4.5 GM 4.5 GM in DEXTROSE 5%-WATER 100 ML IVPB SCH ×3 (02:04→17:44)
[2018-11-30] MEDS: METOCLOPRAMIDE HCL INJECTION 10 MG/2 ML VIAL IVPUSH SCH ×4 (02:04→21:00)
[2018-11-30] MEDS: PROPOFOL 1,000,000 MCG/100 ML VIAL IVPB SCH ×2 (02:20→12:00)
[2018-11-30] MEDS: PANTOPRAZOLE SODIUM 80 MG in SODIUM CHLORIDE 100 ML IVPB SCH ×2 (03:25→13:30)
[2018-11-30] MEDS: FUROSEMIDE 40 MG/4 ML INJECTABLE VIAL IVPUSH SCH ×2 (05:54→15:41)
[2018-11-30] MEDS: GABAPENTIN 100 MG CAPSULE (FP) PO SCH ×3 (05:55→23:30)
[2018-11-30] MEDS: METHADONE HCL 40 MG DISPERSABLE TABLET PO SCH (05:55)
[2018-11-30] MEDS: INSULIN SLIDING SCALE (NOVOLOG) 1 VIAL SQ SCH ×4 (06:00→23:30)
[2018-11-30 07:01] LABS: INR 1.19 (0.83-1.09); PROTHROMBIN TIME (PATIENT) 14.1 SEC (9.7-13.0)
[2018-11-30 07:07] LABS: HEMATOCRIT 23.7 % (35.4-49); HEMOGLOBIN 8.2 GM/dL (11.7-16.9); MCH 29.2 pg (25.7-33.7); MCHC 34.7 g/dl (32.0-35.9); MEAN PLT VOLUME 7.3 fl (7.5-11.1); PLATELET COUNT 198 K/MM3 (134-434); RBC 2.82 M/mm3 (4.00-5.60); RDW 17.1 % (11.9-15.9); WHITE BLOOD COUNT 6.6 K/mm3 (4.0-10.0)
[2018-11-30 07:55] LABS: ALBUMIN 2.2 g/dl (3.4-5.0); ALK PHOS 89 U/L (45-117); ANION GAP 9 MMOL/L (8-16); BILIRUBIN,TOTAL 0.3 mg/dL (0.2-1); BLOOD UREA NITROGEN 31 mg/dL (7-18); CHLORIDE 102 mmol/L (98-107); CO2 26 mmol/L (21-32); CREATININE 1.7 mg/dL (0.55-1.3); GLUCOSE,RANDOM 145 mg/dL (74-106); MAGNESIUM 1.8 mg/dL (1.8-2.4); POTASSIUM 4.3 mmol/L (3.5-5.1); SGOT/AST 78 U/L (15-37); SGPT/ALT 39 U/L (13-61); SODIUM 137 mmol/L (136-145)
[2018-11-30 08:17] LABS: CALCIUM 6.7 mg/dL (8.5-10.1)
[2018-11-30] MEDS ORDERED: HEPARIN NA (PORCINE) 5,000 UNITS/ML 1ML VIAL IVPUSH PRN ×4 (08:20→11:56)
--- NOTE | 2018-11-30 08:29 | PN ---
Physical Exam: SUBJECTIVE: Patient seen and examined at bedside this morning. Yesterday afternoon, a weaning trial was attempted, however, the patient developed respiratory distress, and was re-intubated. Overnight, there was concern for GI bleeding, with dark colored emesis. There were EKG changes noted earlier this morning, and Troponin elevated to 21.6. Patient remains intubated, sedated. OBJECTIVE: Vital Signs Period Temp Pulse Resp BP Sys/Andre Pulse Ox Last 24 Hr 97.9 F-99.1 F 72-116 16-36 100-178/28-98 97-100 GENERAL: The patient is sedated, intubated. HEENT: Normocephalic, atraumatic. PERRL, sclera anicteric, conjunctiva clear. Neck supple without lymphadenopathy. LUNGS: Mechanical breath sounds equal, clear to auscultation bilaterally, no wheezes, no crackles auscultated. HEART: Regular rate and rhythm, S1, S2 without murmur, rub or gallop. ABDOMEN: Soft, nontender, nondistended, hypoactive bowel sounds. EXTREMITIES: 2+ radial, dorsalis pedis pulses bilaterally, well-perfused. No lower extremity edema. SKIN: Warm, dry. Chronic venous changes noted bilateral lower extremities. Laboratory Results - last 24 hr 11/29/18 11/29/18 11/29/18 05:30 06:10 12:18 WBC RBC Hgb Hct MCV MCH MCHC RDW Plt Count MPV PT with INR INR PTT (Actin FS) Puncture Site ABG pH ABG pCO2 at Pt Temp ABG pO2 at Pt Temp ABG HCO3 ABG O2 Sat (Measured) ABG O2 Content ABG Base Excess Benny Test Oxygen Flow Rate Vent Mode Vent Rate PEEP Pressure Support Vent Sodium Potassium Chloride Carbon Dioxide Anion Gap BUN Creatinine Creat Clearance w eGFR POC Glucometer 179 Random Glucose Calcium 6.7 L* Phosphorus Magnesium Total Bilirubin AST ALT Alkaline Phosphatase Troponin I Total Protein Albumin Stool Occult Blood Negative 11/29/18 11/29/18 11/29/18 14:45 17:00 17:30 WBC RBC Hgb Hct MCV MCH MCHC RDW Plt Count MPV PT with INR INR PTT (Actin FS) 58.3 H Puncture Site Right radial ABG pH 7.22 L* ABG pCO2 at Pt Temp 61.0 H* D ABG pO2 at Pt Temp 171.0 H* ABG HCO3 24.0 ABG O2 Sat (Measured) 98.2 ABG O2 Content 14.8 L ABG Base Excess -3.8 L Benny Test Positive Oxygen Flow Rate 100 Vent Mode A/c Vent Rate 18 PEEP 5.0 Pressure Support Vent 450 Sodium Potassium Chloride Carbon Dioxide Anion Gap BUN Creatinine Creat Clearance w eGFR POC Glucometer Random Glucose Calcium Phosphorus Magnesium Total Bilirubin AST ALT Alkaline Phosphatase Troponin I Total Protein Albumin Stool Occult Blood Positive 11/29/18 11/29/18 11/29/18 17:35 17:35 18:23 WBC 7.1 RBC 3.49 L Hgb 10.3 L Hct 29.5 L D MCV 84.5 MCH 29.6 MCHC 35.0 RDW 17.6 H Plt Count 225 D MPV 7.3 L PT with INR 12.10 INR 1.03 PTT (Actin FS) 50.8 H Puncture Site ABG pH ABG pCO2 at Pt Temp ABG pO2 at Pt Temp ABG HCO3 ABG O2 Sat (Measured) ABG O2 Content ABG Base Excess Benny Test Oxygen Flow Rate Vent Mode Vent Rate PEEP Pressure Support Vent Sodium Potassium Chloride Carbon Dioxide Anion Gap BUN Creatinine Creat Clearance w eGFR POC Glucometer 174 Random Glucose Calcium Phosphorus Magnesium Total Bilirubin AST ALT Alkaline Phosphatase Troponin I Total Protein Albumin Stool Occult Blood 11/29/18 11/30/18 11/30/18 22:25 05:30 05:30 WBC 6.6 RBC 2.82 L Hgb 8.2 L Hct 23.7 L D MCV 84.0 MCH 29.2 MCHC 34.7 RDW 17.1 H Plt Count 198 MPV 7.3 L PT with INR INR PTT (Actin FS) 28.9 Puncture Site ABG pH ABG pCO2 at Pt Temp ABG pO2 at Pt Temp ABG HCO3 ABG O2 Sat (Measured) ABG O2 Content ABG Base Excess Benny Test Oxygen Flow Rate Vent Mode Vent Rate PEEP Pressure Support Vent Sodium Potassium Chloride Carbon Dioxide Anion Gap BUN Creatinine Creat Clearance w eGFR POC Glucometer 129 Random Glucose Calcium Phosphorus Magnesium Total Bilirubin AST ALT Alkaline Phosphatase Troponin I Total Protein Albumin Stool Occult Blood 11/30/18 11/30/18 11/30/18 05:30 05:30 06:00 WBC RBC Hgb Hct MCV MCH MCHC RDW Plt Count MPV PT with INR 14.10 H INR 1.19 H PTT (Actin FS) Puncture Site ABG pH ABG pCO2 at Pt Temp ABG pO2 at Pt Temp ABG HCO3 ABG O2 Sat (Measured) ABG O2 Content ABG Base Excess Benny Test Oxygen Flow Rate Vent Mode Vent Rate PEEP Pressure Support Vent Sodium 137 Potassium 4.3 Chloride 102 Carbon Dioxide 26 Anion Gap 9 BUN 31 H Creatinine 1.7 H Creat Clearance w eGFR 40.65 POC Glucometer 147 Random Glucose 145 H Calcium 6.7 L* Phosphorus 5.0 H Magnesium 1.8 Total Bilirubin 0.3 AST 78 H ALT 39 Alkaline Phosphatase 89 Troponin I 21.60 H* Total Protein 5.0 L Albumin 2.2 L Stool Occult Blood Active Medications Generic Name Dose Route Start Last Admin Trade Name Freq PRN Reason Stop Dose Admin Acetaminophen 650 mg 11/26/18 08:54 Tylenol - PO Q6H PRN FEVER Acetylcysteine 200 mg 11/29/18 20:00 11/29/18 21:30 Mucomyst 20 Oral / Inh Use Only* NEB 200 mg RBID YAKOV Administration Albuterol Sulfate 1 amp 11/29/18 21:21 11/29/18 21:30 Ventolin 0.083% Nebulizer Soln - NEB 1 amp Q4H PRN Administration SHORT OF BREATH/WHEEZING Allopurinol 300 mg 11/26/18 10:00 11/29/18 10:04 Zyloprim - PO 300 mg DAILY YAKOV Administration Aspirin 81 mg 11/27/18 10:15 11/29/18 10:04 Asa - PO 81 mg DAILY YAKOV Administration Atorvastatin Calcium 80 mg 11/30/18 22:00 Lipitor - PO HS YAKOV Buspirone HCl 15 mg 11/26/18 10:00 11/28/18 22:13 Buspar - PO Not Given BID YAKOV Calcium Carbonate/Cholecalciferol 1 tab 11/26/18 10:00 11/29/18 10:04 Os-Kyler 500+D - PO 1 tab DAILY YAKOV Administration Chlorhexidine Gluconate 1 applic 11/26/18 22:00 11/29/18 22:18 Hibiclens For Decolonization - TP 1 applic HS YAKOV Administration Chlorhexidine Gluconate 15 ml 11/27/18 22:00 11/29/18 22:18 Peridex - MM 15 ml BID YAKOV Administration Docusate Sodium 100 mg 11/26/18 08:54 Colace - PO BID PRN CONSTIPATION Furosemide 40 mg 11/29/18 14:45 11/30/18 05:54 Lasix Injection - IVPUSH 40 mg BID@0600,1400 YAKOV Administration Gabapentin 100 mg 11/26/18 14:00 11/30/18 05:55 Neurontin - PO Not Given TID YAKOV Heparin Sodium (Porcine) 1,000 unit 11/30/18 08:20 Heparin - IVPUSH PRN PRN Heparin Heparin Sodium (Porcine) 5,000 unit 11/30/18 08:20 Heparin - IVPUSH PRN PRN Heparin Propofol 1,000,000 mcg in 100 mls @ 9.349 mls/hr 11/26/18 08:54 11/30/18 02: 20 Diprivan - IVPB 55 mcg/kg/min TITR YAKOV 34.278 mls/hr Administration Protocol 15 MCG/KG/MIN Piperacillin Sod/Tazobactam 100 mls @ 200 mls/hr 11/28/18 18:00 11/30/18 02: 04 Sod 4.5 gm/ Dextrose IVPB 200 mls/hr Q8H-IV YAKOV Administration Protocol Vancomycin HCl 1,250 mg/ 250 mls @ 250 mls/2 hr 11/28/18 10:45 11/29/18 12:01 Dextrose IVPB 250 mls/2 hr Q24H YAKOV Administration Protocol Pantoprazole Sodium 80 mg/ 100 mls @ 10 mls/hr 11/29/18 17:30 11/30/18 03:25 Sodium Chloride IVPB 10 mls/hr Q10H YAKOV Administration 8 MG/HR Octreotide Acetate 1,200 mcg/ 500 mls @ 20.83 mls/hr 11/29/18 18:00 11/29/18 19:12 Dextrose IVPB 20.83 mls/hr ASDIR YAKOV Administration 50 MCG/HR Heparin Sodium/Dextrose 500 mls @ 20 mls/hr 11/30/18 08:30 Heparin Infusion - IV TITR YAKOV Protocol 1,000 UNITS/HR Insulin Aspart 1 vial 11/26/18 11:00 11/30/18 06:00 Novolog Vial Sliding Scale - SQ Not Given ACHS COUNT INCLUDES THE [facility] Protocol Insulin Detemir 40 units 11/26/18 22:00 11/29/18 22:27 Levemir Vial SQ 40 units HS YAKOV Administration Methadone HCl 80 mg 11/27/18 06:00 11/30/18 05:55 Dolophine - PO Not Given DAILY@0600 YAKOV Methylprednisolone Sodium Succinate 40 mg 11/28/18 11:30 11/29/18 22:12 Solu-Medrol - IVPUSH 40 mg BID YAKOV Administration Metoclopramide HCl 10 mg 11/29/18 21:00 11/30/18 02:04 Reglan Injection - IVPUSH 10 mg Q6H-IV AYKOV Administration Midazolam HCl 2 mg 11/27/18 22:47 Versed - IVPUSH Q4H PRN AGITATION Mupirocin 1 applic 11/26/18 22:00 11/29/18 22:10 Bactroban Ointment (For Decolonization) - NS 11/30/18 21:59 1 applic BID YAKOV Administration Polyethylene Glycol 17 gm 11/27/18 12:30 11/29/18 10:04 Miralax (For Daily Use) - PO 17 grams DAILY YAKOV Administration Scopolamine HBr 1 patch 11/28/18 22:45 11/28/18 22:59 Transderm-Scop - TD 1 patch Q72H YAKOV Administration Tiotropium [place] 2 puff 11/26/18 10:00 11/29/18 12:01 Spiriva Respimat IH Not Given DAILY YAKOV Valacyclovir HCl 500 mg 11/26/18 10:00 11/29/18 10:04 Valtrex - PO 500 mg DAILY YAKOV Administration ASSESSMENT/PLAN: Patient is a 63 year old male with history of hypertension, hyperlipidemia, insulin dependent diabetes mellitus, peripheral vascular disease, opoid dependence, multiple myeloma, admitted to ICU for acute hypoxic respiratory failure. Neurological -Patient is sedated with Propofol. -Holding home Methadone -Monitor for signs of mental status change Pulmonary Acute hypoxic, hypoxemic respiratory failure Pneumonia, +MRSA nares colonization -Ventilator settings: RR 24, tidal volume 450, PEEP 10, FiO2 60%. -Chest radiograph shows bilateral congestive, infiltrative changes. -Vancomycin 1250mg IV daily (day #3) -Zosyn 4.5 grams Q8H (day #3) -Methylprednisone 40mg IV BID -Lasix 40mg IV BID -DuoNebs Q6H, Mucomyst nebulizer BID, Spiriva 2 puffs IH daily -Maintain oxygen saturation greater than 90% Cardiovascular Hypertension NSTEMI -Troponin 21.6 today, with EKG changes (new T -wave inversions in anterolateral leads upon my reading). Will follow Troponins. -Discussed with Cardiology, who recommends continuing Aspirin at this time. No indication for Heparin drip -Heparin drip discontinued -Aspirin 81mg GT daily -Holding Plavix -Metoprolol 25mg GT daily -Cardiac ECHO shows EF 45-50%, mild global hypokinesis, grade I diastolic dysfunction. -Arterial doppler right upper extremity shows decreased monophasic flow within right radial and ulnar arteries. -Vascular surgery consult appreciated. No surgical intervention indicated at this time. Gastrointestinal Constipation History of Hepatitis C -HCV RNA PCR negative -Dark- colored emesis last evening. No episodes of emesis or bowel movements overnight. -GI consult (Dr. Up) appreciated. Likely stagnant gastric contents, secondary to diabetic gastroparesis. Less impressive for GI bleed. -Protonix drip 8mg/ hour IV -Octreotide drip 50mcg/ hour IV -Metoclopramide 10mg IV Q6H -Monitor serial occult blood testing -NG tube set to continuous suction. -Maintain NPO. Endocrine Insulin dependent diabetes mellitus -Insulin sliding scale ACHS -Fingerstick blood glucose monitoring ACHS -Gabapentin 100mg PO TID for peripheral neuropathy Hematologic Multiple Myeloma -Hb 8.2, Hct 23.7 -S/P 1 unit PRBC transfusion -Maintain Hb above 8.0 -Multiple myeloma treatment currently on hold, per hematology -Hematology recommendations appreciated Renal DARIO BUN 31, Cr 1.7 Hypocalcemia -Corrected Ca = 8.1. Replete with 1000mg IVPB calcium gluconate. -Nephrology recommendations (Dr. Cates) appreciated FEN -Fluids: No IV fluids -Electrolytes: Hypocalcemia, repleted. Follow CMP; replete as necessary. -Nutrition: NPO Prophylaxis -Heparin 5000u subq TID Disposition -Continue care in ICU. Patient is Full Code Visit type - Emergency Visit Emergency Visit: Yes ED Registration Date: 11/20/18 Care time: The patient presented to the Emergency Department on the above date and was hospitalized for further evaluation of their emergent condition. - New Patient This patient is new to me today: No - Critical Care Critical Care patient: Yes Total Critical Care Time (in minutes): 37 Critical Care Statement: The care of this patient involved high complexity decision making to prevent further life threatening deterioration of the patient 's condition and/or to evaluate & treat vital organ system(s) failure or risk of failure. - Discharge Referral Referred to [facility] No
[2018-11-30] MEDS ORDERED: HEPARIN INFUSION - 25,000 UNITS/500 ML INFUS.BAG IV SCH ×2 (08:30→12:00)
[2018-11-30] MEDS ORDERED: CALCIUM GLUCONATE 10% - 1,000 MG/10 ML VIAL IVPB ONE (08:54)
--- NOTE | 2018-11-30 09:08 | PN ---
Progress Note (short form) - Note Progress Note: sedated, intubated s/p coffee ground emesis +occult blood from NGT- now green in color Vital Signs Period Temp Pulse Resp BP Sys/Andre Pulse Ox Last 24 Hr 97.9 F-99.1 F 69-116 16-36 100-178/28-98 97-100 cor-rrr lungs decreased bs at bases abd soft,nt ext no edema CBC, BMP 11/30/18 05:30 11/30/18 05:30 Microbiology 11/28/18 10:40 Sputum - Endotrachea Suction/Ventilator Gram Stain - Final 11/28/18 10:40 Sputum - Endotrachea Suction/Ventilator Sputum Culture - Final S Aureus 11/25/18 20:10 Blood - Peripheral Venous Blood Culture - Preliminary NO GROWTH OBTAINED AFTER 96 HOURS, INCUBATION TO CONTINUE FOR 1 DAYS. 11/25/18 20:00 Blood - Peripheral Venous Blood Culture - Preliminary NO GROWTH OBTAINED AFTER 96 HOURS, INCUBATION TO CONTINUE FOR 1 DAYS. 11/25/18 20:10 Urine - Urine Massey Urine Culture - Final NO GROWTH OBTAINED 11/26/18 13:20 Urine For Antigen Detection Legionella Antigen - Final 11/26/18 13:20 Urine For Antigen Detection Streptococcus pneumoniae Antigen (M - Final 11/20/18 08:11 Urine - Urine Clean Catch Urine Culture - Final NO GROWTH OBTAINED cxray-bilateral infiltrates, +effusions Laboratory Tests 11/26/18 11/30/18 19:58 05:30 Troponin I 10.00 H* 21.60 H* Current Medications Acetaminophen (Tylenol -) 650 mg PO Q6H PRN PRN Reason: FEVER Acetylcysteine (Mucomyst 20 Oral / Inh Use Only*) 200 mg NEB RBID [facility] Last Admin: 11/29/18 21:30 Dose: 200 mg Albuterol Sulfate (Ventolin 0.083% Nebulizer Soln -) 1 amp NEB Q4H PRN PRN Reason: SHORT OF BREATH/WHEEZING Last Admin: 11/29/18 21:30 Dose: 1 amp Allopurinol (Zyloprim -) 300 mg PO DAILY [facility] Last Admin: 11/29/18 10:04 Dose: 300 mg Aspirin (Asa -) 81 mg PO DAILY [facility] Last Admin: 11/29/18 10:04 Dose: 81 mg Atorvastatin Calcium (Lipitor -) 80 mg PO HS [facility] Buspirone HCl (Buspar -) 15 mg PO BID [facility] Last Admin: 11/28/18 22:13 Dose: Not Given Calcium Carbonate/Cholecalciferol (Os-Kyler 500+D -) 1 tab PO DAILY [facility] Last Admin: 11/29/18 10:04 Dose: 1 tab Chlorhexidine Gluconate (Hibiclens For Decolonization -) 1 applic TP HS [facility] Last Admin: 11/29/18 22:18 Dose: 1 applic Chlorhexidine Gluconate (Peridex -) 15 ml MM BID [facility] Last Admin: 11/29/18 22:18 Dose: 15 ml Docusate Sodium (Colace -) 100 mg PO BID PRN PRN Reason: CONSTIPATION Furosemide (Lasix Injection -) 40 mg IVPUSH BID@0600,1400 [facility] Last Admin: 11/30/18 05:54 Dose: 40 mg Gabapentin (Neurontin -) 100 mg PO TID [facility] Last Admin: 11/30/18 05:55 Dose: Not Given Heparin Sodium (Porcine) (Heparin -) 1,000 unit IVPUSH PRN PRN PRN Reason: Heparin Heparin Sodium (Porcine) (Heparin -) 5,000 unit IVPUSH PRN PRN PRN Reason: Heparin Propofol (Diprivan -) 1,000,000 mcg in 100 mls @ 9.349 mls/hr IVPB TITR [facility]; Protocol Last Admin: 11/30/18 02:20 Dose: 55 mcg/kg/min, 34.278 mls/hr Piperacillin Sod/Tazobactam (Sod 4.5 gm/ Dextrose) 100 mls @ 200 mls/hr IVPB Q8H-IV [facility]; Protocol Last Admin: 11/30/18 02:04 Dose: 200 mls/hr Vancomycin HCl 1,250 mg/ (Dextrose) 250 mls @ 250 mls/2 hr IVPB Q24H [facility]; Protocol Last Admin: 11/29/18 12:01 Dose: 250 mls/2 hr Pantoprazole Sodium 80 mg/ (Sodium Chloride) 100 mls @ 10 mls/hr IVPB Q10H [facility] Last Admin: 11/30/18 03:25 Dose: 10 mls/hr Octreotide Acetate 1,200 mcg/ (Dextrose) 500 mls @ 20.83 mls/hr IVPB ASDIR [facility] Last Admin: 11/29/18 19:12 Dose: 20.83 mls/hr Heparin Sodium/Dextrose (Heparin Infusion -) 25,000 units in 500 mls @ 20 mls/ hr IV TITR [facility]; Protocol Insulin Aspart (Novolog Vial Sliding Scale -) 1 vial SQ ACHS [facility]; Protocol Last Admin: 11/30/18 06:00 Dose: Not Given Insulin Detemir (Levemir Vial) 40 units SQ HS [facility] Last Admin: 11/29/18 22:27 Dose: 40 units Methadone HCl (Dolophine -) 80 mg PO DAILY@0600 [facility] Last Admin: 11/30/18 05:55 Dose: Not Given Methylprednisolone Sodium Succinate (Solu-Medrol -) 40 mg IVPUSH BID [facility] Last Admin: 11/29/18 22:12 Dose: 40 mg Metoclopramide HCl (Reglan Injection -) 10 mg IVPUSH Q6H-IV [facility] Last Admin: 11/30/18 02:04 Dose: 10 mg Midazolam HCl (Versed -) 2 mg IVPUSH Q4H PRN PRN Reason: AGITATION Mupirocin (Bactroban Ointment (For Decolonization) -) 1 applic NS BID [facility] Stop: 11/30/18 21:59 Last Admin: 11/29/18 22:10 Dose: 1 applic Polyethylene Glycol (Miralax (For Daily Use) -) 17 gm PO DAILY [facility] Last Admin: 11/29/18 10:04 Dose: 17 grams Scopolamine HBr (Transderm-Scop -) 1 patch TD Q72H [facility] Last Admin: 11/28/18 22:59 Dose: 1 patch Tiotropium [place] (Spiriva Respimat) 2 puff IH DAILY [facility] Last Admin: 11/29/18 12:01 Dose: Not Given Valacyclovir HCl (Valtrex -) 500 mg PO DAILY [facility] Last Admin: 11/29/18 10:04 Dose: 500 mg a/p respiratory failure left lung pneumonia sputum with MRSA multiple myeloma/vertebral fractures renal insufficiency- ccoffee ground emesis- r/o UGI bleed +troponins-cardiology f/u sputum culture vancomycin/zosyn- check vanco level before next dose-pending today d/w ICU residents
[2018-11-30 09:41] LABS: ARTERIAL BLD GAS O2 SATURATION 98.4 % (90-98.9); ARTERIAL BLOOD GAS PCO2 50.9 mmHg (35-45); ARTERIAL BLOOD GAS pH 7.31 (7.35-7.45)
[2018-11-30 09:42] LABS: ALLENS TEST POSITIVE
[2018-11-30] MEDS ORDERED: PIPERACILLIN/TAZOBACTAM 4.5 GM VIAL IVPB ONE ×2 (09:46→17:29)
[2018-11-30] MEDS ORDERED: DEXTROSE 5%-WATER 100 ML IVPB ONE ×2 (09:46→17:29)
[2018-11-30] MEDS: MUPIROCIN 2% TOPICAL OINTMENT FOR DECOLONIZATION NS SCH (10:01)
[2018-11-30] MEDS: ASPIRIN 81 MG CHEWABLE TABLETS PO SCH (10:01)
[2018-11-30] MEDS: methylPREDNISolone NA SUCC 40 MG/1 ML VIAL IVPUSH SCH ×2 (10:02→23:02)
[2018-11-30] MEDS: POLYETHYLENE GLYCOL 3350 119 GM BTL PO SCH (10:02)
[2018-11-30] MEDS: CHLORHEXIDINE GLUCONATE 0.12% 15ML CUP MM SCH ×3 (10:02→23:32)
[2018-11-30] MEDS: CALCIUM 500MG/VIT-D 200 UNITS COMBO TABLET (FP) PO SCH (10:03)
[2018-11-30] MEDS: busPIRone HCL 5 MG TABLET PO SCH ×2 (10:03→23:07)
[2018-11-30] MEDS: ALLOPURINOL 300 MG TABLET (FP) PO SCH (10:30)
--- NOTE | 2018-11-30 10:42 | EKG ---
Test Reason : Blood Pressure : / mmHG Vent. Rate : 073 BPM Atrial Rate : 073 BPM P-R Int : 180 ms QRS Dur : 086 ms QT Int : 458 ms P-R-T Axes : 047 017 255 degrees QTc Int : 504 ms NORMAL SINUS RHYTHM PROLONGED QT ABNORMAL ECG WHEN COMPARED WITH ECG OF 26-NOV-2018 09:09, ST NOW DEPRESSED IN LATERAL LEADS NONSPECIFIC T WAVE ABNORMALITY NOW EVIDENT IN INFERIOR LEADS T WAVE INVERSION NOW EVIDENT IN ANTEROLATERAL LEADS Confirmed by BERTA SMITH, ANTHONY ([id number]) on 11/30/2018 10:41:40 AM Referred By: Confirmed By:ANTHONY HAMPTON MD
[2018-11-30] MEDS: valACYclovir HCL 500 MG TABLET (FP) PO SCH (11:00)
[2018-11-30] MEDS ORDERED: CLOPIDOGREL BISULFATE 75 MG TABLET (FP) PO SCH (11:30)
[2018-11-30] MEDS ORDERED: HEPARIN NA (PORCINE) 5,000 UNITS/ML 1ML VIAL IVPUSH ONE (11:31)
[2018-11-30] MEDS ORDERED: PT OWN MED DRAWER 7, Y5N ONE ×3 (11:41→21:27)
[2018-11-30] MEDS: VANCOMYCIN HCL 1,250 MG in DEXTROSE 5%-WATER - 250 ML IVPB SCH (11:47)
--- NOTE | 2018-11-30 11:52 | CONSULT ---
- Consultation REQUESTING PROVIDER: CONSULT REQUEST: We have been asked to surgically evaluate this patient for right UE decreased flow. PCP:Amalia Irvin HISTORY OF PRESENT ILLNESS: Obtained from patient chart Pt is a 63 yo M, with PMH of HTN, HLD, IDDM, Hep C (on Harvoni), PVD/LE ulcers, past opioid use (on methadone), and multiple myeloma (dx last month), who is presented to the ED with complaints of nausea, vomiting, abdominal distension and discomfort, and constipation x3 days. Pt has complex history, and was diagnosed with multiple myeloma last month; last chemo treatment was on Wednesday ( Dr. Grady). As per the ICU staff the patient's family felt as though his right hand was slightly cooler and they ordered a doppler which revealed "reduced flow ". Social: Pt denies any cigarette, alcohol, or drug use. Pt denies any recent travel or sick contacts. Surgical: R 5th toe removal. Family: no relevant history PMHx: HTN, HLD, IDDM, Hep C (on Harvoni), PVD/LE ulcers, multiple myeloma (dx last month), PSHx: Home Medications Medication Instructions Recorded Albuterol Sulfate Inhaler - 2 puff PO QID PRN 06/07/15 [Ventolin HFA Inhaler -] Aspirin [Aspirin EC] 81 mg PO DAILY 06/07/15 Enalapril Maleate [Vasotec -] 20 mg PO DAILY 06/07/15 Insulin Glargine,Hum.rec.anlog 40 unit SQ HS 06/07/15 [Lantus (10mL VIAL) -] Salmeterol/Fluticasone [Advair 1 puff PO BID 06/07/15 100Mcg/50Mcg -] Sertraline HCl 50 mg PO DAILY 06/07/15 metFORMIN HCL [Metformin HCl] 1,000 mg PO BID 06/07/15 Acetaminophen [Tylenol .Regular 650 mg PO Q6H PRN #0 tablet 06/14/15 Strength -] Methadone [Dolophine -] 70 mg PO DAILY 01/30/16 Buspirone HCl 15 mg PO BID 07/22/18 Metoprolol Tartrate [Lopressor -] 25 mg PO BID #60 tablet 07/27/18 Nifedipine ER [Procardia XL -] 30 mg PO DAILY #30 tab.er.24 07/27/18 Allergies Allergy/AdvReac Type Severity Reaction Status Date / Time No Known Allergies Allergy Verified 10/29/18 03:32 REVIEW OF SYSTEMS: Unable to obtain, patietn intubated and sedated PHYSICAL EXAM: GENERAL: sedated and intubated. HEAD: Normal with no signs of trauma. LUNGS: intubated on vent MUSCULOSKELETAL: in restraints UPPER EXTREMITIES: right UE with mild diffuse edema, warm to touch throughout and well-perfused. with +2 radial pulse No cyanosis. Cap refill <2 seconds. Left UE with mild diffuse edema, warm to touch throughout and well-perfused. with +2 radial pulse No cyanosis. Cap refill <2 seconds. Vital Signs Temperature 98.7 F 11/30/18 09:23 Pulse Rate 65 11/30/18 11:00 Respiratory Rate 18 11/30/18 11:00 Blood Pressure 143/84 11/30/18 11:00 O2 Sat by Pulse Oximetry (%) 100 11/29/18 22:00 Lab Results WBC 6.6 K/mm3 (4.0-10.0) 11/30/18 05:30 RBC 2.82 M/mm3 (4.00-5.60) L 11/30/18 05:30 Hgb 8.2 GM/dL (11.7-16.9) L 11/30/18 05:30 Hct 23.7 % (35.4-49) L D 11/30/18 05:30 MCV 84.0 fl (80-96) 11/30/18 05:30 MCHC 34.7 g/dl (32.0-35.9) 11/30/18 05:30 RDW 17.1 % (11.9-15.9) H 11/30/18 05:30 Plt Count 198 K/MM3 (134-434) 11/30/18 05:30 Sodium 137 mmol/L (136-145) 11/30/18 05:30 Potassium 4.3 mmol/L (3.5-5.1) 11/30/18 05:30 Chloride 102 mmol/L (98-107) 11/30/18 05:30 Carbon Dioxide 26 mmol/L (21-32) 11/30/18 05:30 Anion Gap 9 MMOL/L (8-16) 11/30/18 05:30 BUN 31 mg/dL (7-18) H 11/30/18 05:30 Creatinine 1.7 mg/dL (0.55-1.3) H 11/30/18 05:30 Random Glucose 145 mg/dL (74-106) H 11/30/18 05:30 Calcium 6.7 mg/dL (8.5-10.1) L* 11/30/18 05:30 Blood Type A POSITIVE 11/28/18 12:20 Antibody Screen Negative 11/28/18 12:20 INR 1.19 (0.83-1.09) H 11/30/18 05:30 Right UE dupplex: Decreased monophasic flow through radial and ulnar arteries. Problem List - Problems (1) Edema Assessment/Plan: Patient with multiple co-morbidities and mild UE edema with decreased flow on dupplex with no evidence of vascular compromise and no indication for surgical intervention. 1) continue current ICU management 2) Elevate UE to reduce edema 3) Re-consult vascular PRN Evaluation and plan discussed with Dr Herbert. Code(s): R60.9 - EDEMA, UNSPECIFIED
--- NOTE | 2018-11-30 12:06 | PN ---
Progress Note, Physician History of Present Illness: Pt seen and examined at bedside. He remains in the ICU. He was extubated but then was re-intubated. Pt did have a bowel movement. - Current Medication List Current Medications: Active Medications Acetaminophen (Tylenol -) 650 mg PO Q6H PRN PRN Reason: FEVER Acetylcysteine (Mucomyst 20 Oral / Inh Use Only*) 200 mg NEB RBID [facility] Last Admin: 11/29/18 21:30 Dose: 200 mg Albuterol Sulfate (Ventolin 0.083% Nebulizer Soln -) 1 amp NEB Q4H PRN PRN Reason: SHORT OF BREATH/WHEEZING Last Admin: 11/29/18 21:30 Dose: 1 amp Allopurinol (Zyloprim -) 300 mg PO DAILY [facility] Last Admin: 11/30/18 10:30 Dose: 300 mg Aspirin (Asa -) 81 mg PO DAILY [facility] Last Admin: 11/30/18 10:01 Dose: 81 mg Atorvastatin Calcium (Lipitor -) 80 mg PO [facility] Buspirone HCl (Buspar -) 15 mg PO BID [facility] Last Admin: 11/30/18 10:03 Dose: 15 mg Calcium Carbonate/Cholecalciferol (Os-Kyler 500+D -) 1 tab PO DAILY [facility] Last Admin: 11/30/18 10:03 Dose: 1 tab Chlorhexidine Gluconate (Hibiclens For Decolonization -) 1 applic TP HS [facility] Last Admin: 11/29/18 22:18 Dose: 1 applic Chlorhexidine Gluconate (Peridex -) 15 ml MM BID [facility] Last Admin: 11/30/18 10:02 Dose: 15 ml Clopidogrel Bisulfate (Plavix -) 75 mg PO DAILY [facility] Docusate Sodium (Colace -) 100 mg PO BID PRN PRN Reason: CONSTIPATION Furosemide (Lasix Injection -) 40 mg IVPUSH BID@0600,1400 [facility] Last Admin: 11/30/18 05:54 Dose: 40 mg Gabapentin (Neurontin -) 100 mg PO TID [facility] Last Admin: 11/30/18 05:55 Dose: Not Given Heparin Sodium (Porcine) (Heparin -) 5,000 unit IVPUSH PRN PRN PRN Reason: PROTOCOL Heparin Sodium (Porcine) (Heparin -) 1,000 unit IVPUSH PRN PRN PRN Reason: PROTOCOL Propofol (Diprivan -) 1,000,000 mcg in 100 mls @ 9.349 mls/hr IVPB TITR [facility]; Protocol Last Titration: 11/30/18 10:04 Dose: 55 mcg/kg/min, 34.278 mls/hr Piperacillin Sod/Tazobactam (Sod 4.5 gm/ Dextrose) 100 mls @ 200 mls/hr IVPB Q8H-IV [facility]; Protocol Last Admin: 11/30/18 10:02 Dose: 200 mls/hr Vancomycin HCl 1,250 mg/ (Dextrose) 250 mls @ 250 mls/2 hr IVPB Q24H [facility]; Protocol Last Admin: 11/30/18 11:47 Dose: 250 mls/2 hr Pantoprazole Sodium 80 mg/ (Sodium Chloride) 100 mls @ 10 mls/hr IVPB Q10H [facility] Last Admin: 11/30/18 03:25 Dose: 10 mls/hr Octreotide Acetate 1,200 mcg/ (Dextrose) 500 mls @ 20.83 mls/hr IVPB ASDIR [facility] Last Admin: 11/29/18 19:12 Dose: 20.83 mls/hr Heparin Sodium/Dextrose (Heparin Infusion -) 25,000 units in 500 mls @ 20 mls/ hr IV TITR [facility]; Protocol Insulin Aspart (Novolog Vial Sliding Scale -) 1 vial SQ ACHS [facility]; Protocol Last Admin: 11/30/18 06:00 Dose: Not Given Insulin Detemir (Levemir Vial) 40 units SQ HS [facility] Last Admin: 11/29/18 22:27 Dose: 40 units Methadone HCl (Dolophine -) 80 mg PO DAILY@0600 [facility] Last Admin: 11/30/18 05:55 Dose: Not Given Methylprednisolone Sodium Succinate (Solu-Medrol -) 40 mg IVPUSH BID [facility] Last Admin: 11/30/18 10:02 Dose: 40 mg Metoclopramide HCl (Reglan Injection -) 10 mg IVPUSH Q6H-IV [facility] Last Admin: 11/30/18 10:01 Dose: 10 mg Metoprolol Succinate (Toprol Xl -) 25 mg PO DAILY [facility] Midazolam HCl (Versed -) 2 mg IVPUSH Q4H PRN PRN Reason: AGITATION Mupirocin (Bactroban Ointment (For Decolonization) -) 1 applic NS BID [facility] Stop: 11/30/18 21:59 Last Admin: 11/30/18 10:01 Dose: 1 applic Polyethylene Glycol (Miralax (For Daily Use) -) 17 gm PO DAILY [facility] Last Admin: 11/30/18 10:02 Dose: Not Given Scopolamine HBr (Transderm-Scop -) 1 patch TD Q72H [facility] Last Admin: 11/28/18 22:59 Dose: 1 patch Tiotropium [place] (Spiriva Respimat) 2 puff IH DAILY [facility] Last Admin: 11/29/18 12:01 Dose: Not Given Valacyclovir HCl (Valtrex -) 500 mg PO DAILY [facility] Last Admin: 11/30/18 11:00 Dose: 500 mg - Objective Vital Signs: Vital Signs Temperature 98.7 F 11/30/18 09:23 Pulse Rate 65 11/30/18 11:00 Respiratory Rate 24 H 11/30/18 11:54 Blood Pressure 143/84 11/30/18 11:00 O2 Sat by Pulse Oximetry (%) 100 11/29/18 22:00 Constitutional: Yes: Calm Eyes: Yes: Conjunctiva Clear HENT: Yes: Atraumatic Neck: Yes: Supple Cardiovascular: Yes: S1, S2 Respiratory: Yes: Mechanically Ventilated Gastrointestinal: Yes: Soft, Abdomen, Obese Genitourinary: Yes: Massey Present Musculoskeletal: Yes: Muscle Weakness Edema: Yes Edema: LLE: 1+, RLE: 1+ Neurological: Yes: Lethargy Labs: CBC, BMP 11/30/18 05:30 11/30/18 05:30 INR, PTT INR 1.19 (0.83-1.09) H 11/30/18 05:30 Fibrinogen > 500.0 mg/dL (238-498) H 11/25/18 20:00 - ....Imaging Chest X-ray: Report Reviewed Problem List - Problems (1) CKD (chronic kidney disease) Code(s): N18.9 - CHRONIC KIDNEY DISEASE, UNSPECIFIED (2) Constipation Code(s): K59.00 - CONSTIPATION, UNSPECIFIED Qualifiers: Constipation type: unspecified constipation type Qualified Code(s): K59.00 - Constipation, unspecified (3) Hyponatremia Code(s): E87.1 - HYPO-OSMOLALITY AND HYPONATREMIA Assessment/Plan Current Medications Generic Name Dose Route Start Last Admin Trade Name Freq PRN Reason Stop Dose Admin Acetaminophen 650 mg 11/26/18 08:54 Tylenol - PO Q6H PRN FEVER Acetylcysteine 200 mg 11/29/18 20:00 11/29/18 21:30 Mucomyst 20 Oral / Inh Use Only* NEB 200 mg RBID [facility] Administration Albuterol Sulfate 1 amp 11/29/18 21:21 11/29/18 21:30 Ventolin 0.083% Nebulizer Soln - NEB 1 amp Q4H PRN Administration SHORT OF BREATH/WHEEZING Allopurinol 300 mg 11/26/18 10:00 11/30/18 10:30 Zyloprim - PO 300 mg DAILY [facility] Administration Aspirin 81 mg 11/27/18 10:15 11/30/18 10:01 Asa - PO 81 mg DAILY [facility] Administration Atorvastatin Calcium 80 mg 11/30/18 22:00 Lipitor - PO HS [facility] Buspirone HCl 15 mg 11/26/18 10:00 11/30/18 10:03 Buspar - PO 15 mg BID [facility] Administration Calcium Carbonate/Cholecalciferol 1 tab 11/26/18 10:00 11/30/18 10:03 Os-Kyler 500+D - PO 1 tab DAILY [facility] Administration Chlorhexidine Gluconate 1 applic 11/26/18 22:00 11/29/18 22:18 Hibiclens For Decolonization - TP 1 applic HS [facility] Administration Chlorhexidine Gluconate 15 ml 11/27/18 22:00 11/30/18 10:02 Peridex - MM 15 ml BID [facility] Administration Clopidogrel Bisulfate 75 mg 11/30/18 11:30 Plavix - PO DAILY [facility] Docusate Sodium 100 mg 11/26/18 08:54 Colace - PO BID PRN CONSTIPATION Furosemide 40 mg 11/29/18 14:45 11/30/18 05:54 Lasix Injection - IVPUSH 40 mg BID@0600,1400 [facility] Administration Gabapentin 100 mg 11/26/18 14:00 11/30/18 05:55 Neurontin - PO Not Given TID [facility] Heparin Sodium (Porcine) 5,000 unit 11/30/18 11:56 Heparin - IVPUSH PRN PRN PROTOCOL Heparin Sodium (Porcine) 1,000 unit 11/30/18 11:56 Heparin - IVPUSH PRN PRN PROTOCOL Propofol 1,000,000 mcg in 100 mls @ 9.349 mls/hr 11/26/18 08:54 11/30/18 10: 04 Diprivan - IVPB 55 mcg/kg/min TITR [facility] 34.278 mls/hr Titration Protocol 15 MCG/KG/MIN Piperacillin Sod/Tazobactam 100 mls @ 200 mls/hr 11/28/18 18:00 11/30/18 10: 02 Sod 4.5 gm/ Dextrose IVPB 200 mls/hr Q8H-IV [facility] Administration Protocol Vancomycin HCl 1,250 mg/ 250 mls @ 250 mls/2 hr 11/28/18 10:45 11/30/18 11:47 Dextrose IVPB 250 mls/2 hr Q24H [facility] Administration Protocol Pantoprazole Sodium 80 mg/ 100 mls @ 10 mls/hr 11/29/18 17:30 11/30/18 03:25 Sodium Chloride IVPB 10 mls/hr Q10H [facility] Administration 8 MG/HR Octreotide Acetate 1,200 mcg/ 500 mls @ 20.83 mls/hr 11/29/18 18:00 11/29/18 19:12 Dextrose IVPB 20.83 mls/hr ASDIR [facility] Administration 50 MCG/HR Heparin Sodium/Dextrose 25,000 units in 500 mls @ 20 mls/hr 11/30/18 12:00 Heparin Infusion - IV TITR [facility] Protocol 1,000 UNITS/HR Insulin Aspart 1 vial 11/26/18 11:00 11/30/18 06:00 Novolog Vial Sliding Scale - SQ Not Given ACHS [facility] Protocol Insulin Detemir 40 units 11/26/18 22:00 11/29/18 22:27 Levemir Vial SQ 40 units HS [facility] Administration Methadone HCl 80 mg 11/27/18 06:00 11/30/18 05:55 Dolophine - PO Not Given DAILY@0600 [facility] Methylprednisolone Sodium Succinate 40 mg 11/28/18 11:30 11/30/18 10:02 Solu-Medrol - IVPUSH 40 mg BID [facility] Administration Metoclopramide HCl 10 mg 11/29/18 21:00 11/30/18 10:01 Reglan Injection - IVPUSH 10 mg Q6H-IV [facility] Administration Metoprolol Succinate 25 mg 11/30/18 11:30 Toprol Xl - PO DAILY [facility] Midazolam HCl 2 mg 11/27/18 22:47 Versed - IVPUSH Q4H PRN AGITATION Mupirocin 1 applic 11/26/18 22:00 11/30/18 10:01 Bactroban Ointment (For Decolonization) - NS 11/30/18 21:59 1 applic BID [facility] Administration Polyethylene Glycol 17 gm 11/27/18 12:30 11/30/18 10:02 Miralax (For Daily Use) - PO Not Given DAILY [facility] Scopolamine HBr 1 patch 11/28/18 22:45 11/28/18 22:59 Transderm-Scop - TD 1 patch Q72H [facility] Administration Tiotropium Melvin 2 puff 11/26/18 10:00 11/29/18 12:01 Spiriva Respimat IH Not Given DAILY [facility] Valacyclovir HCl 500 mg 11/26/18 10:00 11/30/18 11:00 Valtrex - PO 500 mg DAILY [facility] Administration Impression 1. hyponatremia 2. CKD 3. nausea and vomiting 4. htn 5. DM 6. 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 multiple myeloma 9. anemia 10. proteinuria 11. hyperkalemia 12. resp failure Plan - cont with lasix - monitor renal function - may need to decrease lasix if renal function worsens - avoid constipation - monitor urine output - monitor bp - discussed with ICU team Dr aCtes
[2018-11-30] MEDS: metoPROLOL SUCCINATE 25 MG TAB.SR.24H (FP) PO SCH (12:29)
--- NOTE | 2018-11-30 13:29 | PN ---
Teaching Attending Note Name of Resident: Tarun Guzmán ATTENDING PHYSICIAN STATEMENT I saw and evaluated the patient. I reviewed the resident's note and discussed the case with the resident. I agree with the resident's findings and plan as documented. SUBJECTIVE: Pt seen and examined in the ICU. Remains intubated, sedated. Vented on volume assist control with 80% FiO2. OBJECTIVE: Vital Signs Period Temp Pulse Resp BP Sys/Andre Pulse Ox Last 24 Hr 97.9 F-99.1 F 65-116 16-36 100-178/59-98 97-100 Intake & Output 11/27/18 11/28/18 11/29/18 11/30/18 23:59 23:59 23:59 23:59 Intake Total 1522 3660 2759.8 1108.8 Output Total 2900 3000 2100 500 Balance -1378 660 659.8 608.8 Weight 107.7 kg 104.1 kg 103.918 kg 104.417 kg Gen: intubated, sedated Heart: RRR Lung: decreased breath sounds at the bases Abd: soft, nontender Ext: + edema CBC, BMP 11/30/18 05:30 11/30/18 05:30 Active Medications Acetaminophen (Tylenol -) 650 mg PO Q6H PRN PRN Reason: FEVER Acetylcysteine (Mucomyst 20 Oral / Inh Use Only*) 200 mg NEB RBID [facility] Last Admin: 11/29/18 21:30 Dose: 200 mg Albuterol Sulfate (Ventolin 0.083% Nebulizer Soln -) 1 amp NEB Q4H PRN PRN Reason: SHORT OF BREATH/WHEEZING Last Admin: 11/29/18 21:30 Dose: 1 amp Allopurinol (Zyloprim -) 300 mg PO DAILY [facility] Last Admin: 11/30/18 10:30 Dose: 300 mg Aspirin (Asa -) 81 mg PO DAILY [facility] Last Admin: 11/30/18 10:01 Dose: 81 mg Atorvastatin Calcium (Lipitor -) 80 mg PO HS [facility] Buspirone HCl (Buspar -) 15 mg PO BID [facility] Last Admin: 11/30/18 10:03 Dose: 15 mg Calcium Carbonate/Cholecalciferol (Os-Kyler 500+D -) 1 tab PO DAILY [facility] Last Admin: 11/30/18 10:03 Dose: 1 tab Chlorhexidine Gluconate (Hibiclens For Decolonization -) 1 applic TP HS [facility] Last Admin: 11/29/18 22:18 Dose: 1 applic Chlorhexidine Gluconate (Peridex -) 15 ml MM BID [facility] Last Admin: 11/30/18 10:02 Dose: 15 ml Clopidogrel Bisulfate (Plavix -) 75 mg PO DAILY [facility] Last Admin: 11/30/18 12:29 Dose: 75 mg Docusate Sodium (Colace -) 100 mg PO BID PRN PRN Reason: CONSTIPATION Furosemide (Lasix Injection -) 40 mg IVPUSH BID@0600,1400 [facility] Last Admin: 11/30/18 05:54 Dose: 40 mg Gabapentin (Neurontin -) 100 mg PO TID [facility] Last Admin: 11/30/18 05:55 Dose: Not Given Heparin Sodium (Porcine) (Heparin -) 5,000 unit IVPUSH PRN PRN PRN Reason: PROTOCOL Heparin Sodium (Porcine) (Heparin -) 1,000 unit IVPUSH PRN PRN PRN Reason: PROTOCOL Propofol (Diprivan -) 1,000,000 mcg in 100 mls @ 9.349 mls/hr IVPB TITR [facility]; Protocol Last Titration: 11/30/18 10:04 Dose: 55 mcg/kg/min, 34.278 mls/hr Piperacillin Sod/Tazobactam (Sod 4.5 gm/ Dextrose) 100 mls @ 200 mls/hr IVPB Q8H-IV [facility]; Protocol Last Admin: 11/30/18 10:02 Dose: 200 mls/hr Vancomycin HCl 1,250 mg/ (Dextrose) 250 mls @ 250 mls/2 hr IVPB Q24H [facility]; Protocol Last Admin: 11/30/18 11:47 Dose: 250 mls/2 hr Pantoprazole Sodium 80 mg/ (Sodium Chloride) 100 mls @ 10 mls/hr IVPB Q10H [facility] Last Admin: 11/30/18 03:25 Dose: 10 mls/hr Octreotide Acetate 1,200 mcg/ (Dextrose) 500 mls @ 20.83 mls/hr IVPB ASDIR [facility] Last Admin: 11/29/18 19:12 Dose: 20.83 mls/hr Heparin Sodium/Dextrose (Heparin Infusion -) 25,000 units in 500 mls @ 20 mls/ hr IV TITR [facility]; Protocol Last Admin: 11/30/18 12:04 Dose: 1,000 units/hr, 20 mls/hr Insulin Aspart (Novolog Vial Sliding Scale -) 1 vial SQ ACHS [facility]; Protocol Last Admin: 11/30/18 12:35 Dose: Not Given Insulin Detemir (Levemir Vial) 40 units SQ HS [facility] Last Admin: 11/29/18 22:27 Dose: 40 units Methadone HCl (Dolophine -) 80 mg PO DAILY@0600 [facility] Last Admin: 11/30/18 05:55 Dose: Not Given Methylprednisolone Sodium Succinate (Solu-Medrol -) 40 mg IVPUSH BID [facility] Last Admin: 11/30/18 10:02 Dose: 40 mg Metoclopramide HCl (Reglan Injection -) 10 mg IVPUSH Q6H-IV [facility] Last Admin: 11/30/18 10:01 Dose: 10 mg Metoprolol Succinate (Toprol Xl -) 25 mg PO DAILY [facility] Last Admin: 11/30/18 12:29 Dose: 25 mg Midazolam HCl (Versed -) 2 mg IVPUSH Q4H PRN PRN Reason: AGITATION Mupirocin (Bactroban Ointment (For Decolonization) -) 1 applic NS BID [facility] Stop: 11/30/18 21:59 Last Admin: 11/30/18 10:01 Dose: 1 applic Polyethylene Glycol (Miralax (For Daily Use) -) 17 gm PO DAILY [facility] Last Admin: 11/30/18 10:02 Dose: Not Given Scopolamine HBr (Transderm-Scop -) 1 patch TD Q72H [facility] Last Admin: 11/28/18 22:59 Dose: 1 patch Tiotropium [place] (Spiriva Respimat) 2 puff IH DAILY [facility] Last Admin: 11/29/18 12:01 Dose: Not Given Valacyclovir HCl (Valtrex -) 500 mg PO DAILY [facility] Last Admin: 11/30/18 11:00 Dose: 500 mg ASSESSMENT AND PLAN: Acute Hypoxic and Hypercapneic Respiratory Failure Acute Pulmonary Edema Acute NSTEMI r/o Pneumonia Acute on Chronic Renal Failure HTN DM COPD Methadone Maintenance - continue lasix - monitor urine output, creatinine - ASA, plavix - continue anticoagulation for now - empiric medrol - inhaled bronchodilators - adjusted vent settings - taper Fio2 to keep SpO2 >90% - enteral feeds - DVT/GI prophylaxis - continue ICU monitoring critical care time spent in reviewing chart, evaluating patient and formulating plan 35 min
[2018-11-30] MEDS: TIOTROPIUM BROMIDE 2.5 MCG (SPIRIVA) RESPIMAT INHALER IH SCH (15:11)
--- NOTE | 2018-11-30 15:21 | PN ---
Progress Note, Physician Chief Complaint: intubated and sedated, had coffee ground from [facility] last night telemetry without events. History of Present Illness: The patient is a 63-year-old man, with a history of diabetes, hypertension, hyperlipidemia, peripheral vascular disease, hepatitis C, opioid abuse, on methadone, multiple myeloma, who was admitted with nausea vomiting and abdominal pain with constipation. Developed acute respiratory distress, was intubated and transferred to the ICU. Troponins found to be elevated. There were ECG changes. Echo 11/28/18 EF 45-50 global HK, mild MR, FCDAOV. CXR with volume loss, resolved congestive changes Undergoing weaning trial. Had coffee ground dc from [facility] 11/29/18 heparin stopped. - Current Medication List Current Medications: Active Medications Acetaminophen (Tylenol -) 650 mg PO Q6H PRN PRN Reason: FEVER Acetylcysteine (Mucomyst 20 Oral / Inh Use Only*) 200 mg NEB RBID [facility] Last Admin: 11/29/18 21:30 Dose: 200 mg Albuterol Sulfate (Ventolin 0.083% Nebulizer Soln -) 1 amp NEB Q4H PRN PRN Reason: SHORT OF BREATH/WHEEZING Last Admin: 11/29/18 21:30 Dose: 1 amp Allopurinol (Zyloprim -) 300 mg PO DAILY [facility] Last Admin: 11/30/18 10:30 Dose: 300 mg Aspirin (Asa -) 81 mg PO DAILY [facility] Last Admin: 11/30/18 10:01 Dose: 81 mg Atorvastatin Calcium (Lipitor -) 80 mg PO HS [facility] Buspirone HCl (Buspar -) 15 mg PO BID [facility] Last Admin: 11/30/18 10:03 Dose: 15 mg Calcium Carbonate/Cholecalciferol (Os-Kyler 500+D -) 1 tab PO DAILY [facility] Last Admin: 11/30/18 10:03 Dose: 1 tab Chlorhexidine Gluconate (Hibiclens For Decolonization -) 1 applic TP HS [facility] Last Admin: 11/29/18 22:18 Dose: 1 applic Chlorhexidine Gluconate (Peridex -) 15 ml MM BID [facility] Last Admin: 11/30/18 10:02 Dose: 15 ml Clopidogrel Bisulfate (Plavix -) 75 mg PO DAILY [facility] Last Admin: 11/30/18 12:29 Dose: 75 mg Docusate Sodium (Colace -) 100 mg PO BID PRN PRN Reason: CONSTIPATION Furosemide (Lasix Injection -) 40 mg IVPUSH BID@0600,1400 [facility] Last Admin: 11/30/18 05:54 Dose: 40 mg Gabapentin (Neurontin -) 100 mg PO TID [facility] Last Admin: 11/30/18 05:55 Dose: Not Given Heparin Sodium (Porcine) (Heparin -) 5,000 unit IVPUSH PRN PRN PRN Reason: PROTOCOL Heparin Sodium (Porcine) (Heparin -) 1,000 unit IVPUSH PRN PRN PRN Reason: PROTOCOL Propofol (Diprivan -) 1,000,000 mcg in 100 mls @ 9.349 mls/hr IVPB TITR [facility]; Protocol Last Admin: 11/30/18 12:00 Dose: 55 mcg/kg/min, 34.278 mls/hr Piperacillin Sod/Tazobactam (Sod 4.5 gm/ Dextrose) 100 mls @ 200 mls/hr IVPB Q8H-IV [facility]; Protocol Last Admin: 11/30/18 10:02 Dose: 200 mls/hr Vancomycin HCl 1,250 mg/ (Dextrose) 250 mls @ 250 mls/2 hr IVPB Q24H [facility]; Protocol Last Admin: 11/30/18 11:47 Dose: 250 mls/2 hr Pantoprazole Sodium 80 mg/ (Sodium Chloride) 100 mls @ 10 mls/hr IVPB Q10H [facility] Last Admin: 11/30/18 13:30 Dose: 10 mls/hr Octreotide Acetate 1,200 mcg/ (Dextrose) 500 mls @ 20.83 mls/hr IVPB ASDIR [facility] Last Admin: 11/29/18 19:12 Dose: 20.83 mls/hr Heparin Sodium/Dextrose (Heparin Infusion -) 25,000 units in 500 mls @ 20 mls/ hr IV TITR [facility]; Protocol Last Admin: 11/30/18 12:04 Dose: 1,000 units/hr, 20 mls/hr Insulin Aspart (Novolog Vial Sliding Scale -) 1 vial SQ ACHS [facility]; Protocol Last Admin: 11/30/18 12:35 Dose: Not Given Insulin Detemir (Levemir Vial) 40 units SQ HS [facility] Last Admin: 11/29/18 22:27 Dose: 40 units Methadone HCl (Dolophine -) 80 mg PO DAILY@0600 [facility] Last Admin: 11/30/18 05:55 Dose: Not Given Methylprednisolone Sodium Succinate (Solu-Medrol -) 40 mg IVPUSH BID [facility] Last Admin: 11/30/18 10:02 Dose: 40 mg Metoclopramide HCl (Reglan Injection -) 10 mg IVPUSH Q6H-IV [facility] Last Admin: 11/30/18 10:01 Dose: 10 mg Metoprolol Succinate (Toprol Xl -) 25 mg PO DAILY [facility] Last Admin: 11/30/18 12:29 Dose: 25 mg Midazolam HCl (Versed -) 2 mg IVPUSH Q4H PRN PRN Reason: AGITATION Mupirocin (Bactroban Ointment (For Decolonization) -) 1 applic NS BID [facility] Stop: 11/30/18 21:59 Last Admin: 11/30/18 10:01 Dose: 1 applic Polyethylene Glycol (Miralax (For Daily Use) -) 17 gm PO DAILY [facility] Last Admin: 11/30/18 10:02 Dose: Not Given Scopolamine HBr (Transderm-Scop -) 1 patch TD Q72H [facility] Last Admin: 11/28/18 22:59 Dose: 1 patch Tiotropium [place] (Spiriva Respimat) 2 puff IH DAILY [facility] Last Admin: 11/30/18 15:11 Dose: Not Given Valacyclovir HCl (Valtrex -) 500 mg PO DAILY [facility] Last Admin: 11/30/18 11:00 Dose: 500 mg - Objective Vital Signs: Vital Signs Temperature 98.3 F 11/30/18 13:52 Pulse Rate 72 11/30/18 13:52 Respiratory Rate 24 H 11/30/18 14:00 Blood Pressure 117/69 11/30/18 13:52 O2 Sat by Pulse Oximetry (%) 100 11/29/18 22:00 Constitutional: Yes: No Distress, Calm Eyes: Yes: EOM Intact HENT: Yes: Normocephalic Neck: Yes: Trachea Midline Cardiovascular: Yes: Regular Rate and Rhythm Respiratory: Yes: Mechanically Ventilated Gastrointestinal: Yes: Normal Bowel Sounds, Soft Extremities: Yes: WNL Edema: No Labs: CBC, BMP 11/30/18 05:30 11/30/18 05:30 INR, PTT INR 1.19 (0.83-1.09) H 11/30/18 05:30 Fibrinogen > 500.0 mg/dL (238-498) H 11/25/18 20:00 Assessment/Plan The patient is a 63-year-old man, with a history of diabetes, hypertension, hyperlipidemia, peripheral vascular disease, hepatitis C, opioid abuse, on methadone, multiple myeloma, who was admitted with nausea vomiting and abdominal pain with constipation. Developed acute respiratory distress, was intubated and transferred to the ICU. Troponins found to be elevated. There were ECG changes. The patient remains intubated and sedated. Fluid overloaded. Echo is unchanged from July 2018. Continue IV lasix. Transfuse as needed, wean as per ICU team. Conservative cardiac care. He is not a candidate for cardiac cath. no need for IV heparin. DE is due to demand ischemia, no change in echo, would defer cardiac workup.
[2018-11-30] MEDS: OCTREOTIDE ACETATE 1,200 MCG in DEXTROSE 5%-WATER - 488 ML IVPB SCH (17:44)
[2018-11-30] MEDS: ACETYLCYSTEINE 20% 200MG/ML 4 ML VIAL *FOR ORAL / INH USE ONLY NEB SCH ×2 (17:46→19:50)
--- NOTE | 2018-11-30 17:47 | PN ---
Progress Note, Physician Chief Complaint: Acute respiratory failure [place] History of Present Illness: Previous notes and events reviewed awake and alert NAD on mechanical ventilator - Current Medication List Current Medications: Active Medications Acetaminophen (Tylenol -) 650 mg PO Q6H PRN PRN Reason: FEVER Acetylcysteine (Mucomyst 20 Oral / Inh Use Only*) 200 mg NEB RBID [facility] Last Admin: 11/29/18 21:30 Dose: 200 mg Albuterol Sulfate (Ventolin 0.083% Nebulizer Soln -) 1 amp NEB Q4H PRN PRN Reason: SHORT OF BREATH/WHEEZING Last Admin: 11/29/18 21:30 Dose: 1 amp Allopurinol (Zyloprim -) 300 mg PO DAILY [facility] Last Admin: 11/30/18 10:30 Dose: 300 mg Aspirin (Asa -) 81 mg PO DAILY [facility] Last Admin: 11/30/18 10:01 Dose: 81 mg Atorvastatin Calcium (Lipitor -) 80 mg PO HS [facility] Buspirone HCl (Buspar -) 15 mg PO BID [facility] Last Admin: 11/30/18 10:03 Dose: 15 mg Calcium Carbonate/Cholecalciferol (Os-Kyler 500+D -) 1 tab PO DAILY [facility] Last Admin: 11/30/18 10:03 Dose: 1 tab Chlorhexidine Gluconate (Hibiclens For Decolonization -) 1 applic TP HS [facility] Last Admin: 11/29/18 22:18 Dose: 1 applic Chlorhexidine Gluconate (Peridex -) 15 ml MM BID [facility] Last Admin: 11/30/18 10:02 Dose: 15 ml Clopidogrel Bisulfate (Plavix -) 75 mg PO DAILY [facility] Last Admin: 11/30/18 12:29 Dose: 75 mg Docusate Sodium (Colace -) 100 mg PO BID PRN PRN Reason: CONSTIPATION Furosemide (Lasix Injection -) 40 mg IVPUSH BID@0600,1400 [facility] Last Admin: 11/30/18 15:41 Dose: 40 mg Gabapentin (Neurontin -) 100 mg PO TID [facility] Last Admin: 11/30/18 15:41 Dose: 100 mg Heparin Sodium (Porcine) (Heparin -) 5,000 unit SQ TID [facility] Propofol (Diprivan -) 1,000,000 mcg in 100 mls @ 9.349 mls/hr IVPB TITR [facility]; Protocol Last Admin: 11/30/18 12:00 Dose: 55 mcg/kg/min, 34.278 mls/hr Piperacillin Sod/Tazobactam (Sod 4.5 gm/ Dextrose) 100 mls @ 200 mls/hr IVPB Q8H-IV [facility]; Protocol Last Admin: 11/30/18 10:02 Dose: 200 mls/hr Vancomycin HCl 1,250 mg/ (Dextrose) 250 mls @ 250 mls/2 hr IVPB Q24H [facility]; Protocol Last Admin: 11/30/18 11:47 Dose: 250 mls/2 hr Pantoprazole Sodium 80 mg/ (Sodium Chloride) 100 mls @ 10 mls/hr IVPB Q10H [facility] Last Admin: 11/30/18 13:30 Dose: 10 mls/hr Octreotide Acetate 1,200 mcg/ (Dextrose) 500 mls @ 20.83 mls/hr IVPB ASDIR [facility] Last Admin: 11/29/18 19:12 Dose: 20.83 mls/hr Insulin Aspart (Novolog Vial Sliding Scale -) 1 vial SQ ACHS [facility]; Protocol Last Admin: 11/30/18 12:35 Dose: Not Given Insulin Detemir (Levemir Vial) 40 units SQ HS [facility] Last Admin: 11/29/18 22:27 Dose: 40 units Methadone HCl (Dolophine -) 80 mg PO DAILY@0600 [facility] Last Admin: 11/30/18 05:55 Dose: Not Given Methylprednisolone Sodium Succinate (Solu-Medrol -) 40 mg IVPUSH BID [facility] Last Admin: 11/30/18 10:02 Dose: 40 mg Metoclopramide HCl (Reglan Injection -) 10 mg IVPUSH Q6H-IV [facility] Last Admin: 11/30/18 15:42 Dose: 10 mg Metoprolol Succinate (Toprol Xl -) 25 mg PO DAILY [facility] Last Admin: 11/30/18 12:29 Dose: 25 mg Midazolam HCl (Versed -) 2 mg IVPUSH Q4H PRN PRN Reason: AGITATION Mupirocin (Bactroban Ointment (For Decolonization) -) 1 applic NS BID [facility] Stop: 11/30/18 21:59 Last Admin: 11/30/18 10:01 Dose: 1 applic Polyethylene Glycol (Miralax (For Daily Use) -) 17 gm PO DAILY [facility] Last Admin: 11/30/18 10:02 Dose: Not Given Scopolamine HBr (Transderm-Scop -) 1 patch TD Q72H [facility] Last Admin: 11/28/18 22:59 Dose: 1 patch Tiotropium Mcalister (Spiriva Respimat) 2 puff IH DAILY [facility] Last Admin: 11/30/18 15:11 Dose: Not Given Valacyclovir HCl (Valtrex -) 500 mg PO DAILY [facility] Last Admin: 11/30/18 11:00 Dose: 500 mg - Objective Vital Signs: Vital Signs Temperature 98.3 F 11/30/18 13:52 Pulse Rate 66 11/30/18 15:00 Respiratory Rate 24 H 11/30/18 15:00 Blood Pressure 144/89 11/30/18 15:00 O2 Sat by Pulse Oximetry (%) 100 11/29/18 22:00 Constitutional: Yes: No Distress HENT: Yes: Atraumatic Cardiovascular: Yes: Regular Rate and Rhythm Respiratory: Yes: Diminished, Mechanically Ventilated Gastrointestinal: Yes: Normal Bowel Sounds, Soft Musculoskeletal: Yes: Muscle Weakness Extremities: Yes: WNL Edema: No Neurological: Yes: Other (sedataed) Labs: CBC, BMP 11/30/18 05:30 11/30/18 05:30 INR, PTT INR 1.19 (0.83-1.09) H 11/30/18 05:30 Fibrinogen > 500.0 mg/dL (238-498) H 11/25/18 20:00 Troponin, BNP 11/30/18 11/30/18 05:30 10:30 Troponin I 21.60 H* 20.20 H* Problem List - Problems (1) CKD (chronic kidney disease) Assessment/Plan: -renal on board -BUN/Cr 31/1.7 -will continue to monitor trend Code(s): N18.9 - CHRONIC KIDNEY DISEASE, UNSPECIFIED (2) Diabetes Assessment/Plan: -BG ACHS -HgA1c 7.7% -ISS Code(s): E11.9 - TYPE 2 DIABETES MELLITUS WITHOUT COMPLICATIONS Qualifiers: Diabetes mellitus type: type 2 (3) Elevated troponin Assessment/Plan: -trop 20.20, beginning to trend down -will monitor trend -cardiology on board -ECHO EF 45-50% Code(s): R74.8 - ABNORMAL LEVELS OF OTHER SERUM ENZYMES (4) Respiratory failure Assessment/Plan: -on mechanical vent FiO2 60% -pulm on board -bronchodilator -IV methylprednisone -IV ABT Code(s): J96.90 - RESPIRATORY FAILURE, UNSP, UNSP W HYPOXIA OR HYPERCAPNIA (5) Hyponatremia Code(s): E87.1 - HYPO-OSMOLALITY AND HYPONATREMIA (6) Multiple myeloma Code(s): C90.00 - MULTIPLE MYELOMA NOT HAVING ACHIEVED REMISSION (7) Pulmonary congestion Code(s): R09.89 - OTH SYMPTOMS AND SIGNS INVOLVING THE CIRC AND RESP SYSTEMS (8) OB + stool Assessment/Plan: -GI on board -continue pantoprazole Code(s): R19.5 - OTHER FECAL ABNORMALITIES
--- NOTE | 2018-11-30 18:30 | PN ---
GI Progress Note Subjective: GI NOte: No gross evidence of bleeding despite decrease in Hb. NG output is bilious today. NO melena. CPK elevation is noted and understand need to resume heparin. Discussed situation with daughter - Objective Vital Signs: Vital Signs Temperature 98.6 F 11/30/18 17:00 Pulse Rate 62 11/30/18 17:00 Respiratory Rate 24 H 11/30/18 15:00 Blood Pressure 132/80 11/30/18 17:00 O2 Sat by Pulse Oximetry (%) 100 11/29/18 22:00 Laboratory Tests 11/26/18 11/28/18 11/28/18 05:30 05:15 19:30 Hgb 8.8 L 7.6 L 9.8 L 11/29/18 11/29/18 11/30/18 05:30 17:35 05:30 Hgb 8.6 L 10.3 L 8.2 L Constitutional: Other (Intubated, sedated) ...Auscultate: Yes: Hypoactive Bowel Sounds ...Palpate: Yes: Soft Labs: CBC, BMP 11/30/18 05:30 11/30/18 05:30 INR, PTT INR 1.19 (0.83-1.09) H 11/30/18 05:30 Fibrinogen > 500.0 mg/dL (238-498) H 11/25/18 20:00 Assessment/Plan Impression; Diabetic gastroparesis, doubt GI bleed Diabetic neuropathy, narcotics, sedentary state and ? chemotherapy inhibiting bowel function History of hepatitis C Plan: NG suctioning x another 24 hours then clamp and check residuals Reglan IVPB Continue PPI but will stop Octreotide I discussed the situation with the daughter, nurse and ICU resident Problem List - Problems (1) Diabetic gastroparesis Code(s): E11.43 - TYPE 2 DIABETES W DIABETIC AUTONOMIC (POLY)NEUROPATHY; K31.84 - GASTROPARESIS (2) Constipation Code(s): K59.00 - CONSTIPATION, UNSPECIFIED Qualifiers: Constipation type: unspecified constipation type Qualified Code(s): K59.00 - Constipation, unspecified (3) Narcotic dependence Code(s): F11.20 - OPIOID DEPENDENCE, UNCOMPLICATED (4) Multiple myeloma Code(s): C90.00 - MULTIPLE MYELOMA NOT HAVING ACHIEVED REMISSION (5) Vertebral compression fracture Code(s): M48.50XA - COLLAPSED VERTEBRA, NEC, SITE UNSP, INIT (6) Diabetic neuropathy Code(s): E11.40 - TYPE 2 DIABETES MELLITUS WITH DIABETIC NEUROPATHY, UNSP (7) Diabetic retinopathy Code(s): E11.319 - TYPE 2 DIABETES W UNSP DIABETIC RTNOP W/O MACULAR EDEMA (8) History of heroin abuse Code(s): Z87.898 - PERSONAL HISTORY OF OTHER SPECIFIED CONDITIONS (9) History of cocaine abuse Code(s): Z87.898 - PERSONAL HISTORY OF OTHER SPECIFIED CONDITIONS (10) CKD (chronic kidney disease) Code(s): N18.9 - CHRONIC KIDNEY DISEASE, UNSPECIFIED (11) Neuropathy Code(s): G62.9 - POLYNEUROPATHY, UNSPECIFIED (12) Osteomyelitis Code(s): M86.9 - OSTEOMYELITIS, UNSPECIFIED Qualifiers: Osteomyelitis type: subacute Osteomyelitis location: foot (13) Type 2 diabetes mellitus with foot ulcer Code(s): E11.621 - TYPE 2 DIABETES MELLITUS WITH FOOT ULCER; L97.509 - NON- PRESSURE CHRONIC ULCER OTH PRT UNSP FOOT W UNSP SEVERITY Qualifiers: (14) Asthma Code(s): J45.909 - UNSPECIFIED ASTHMA, UNCOMPLICATED (15) Diabetes Code(s): E11.9 - TYPE 2 DIABETES MELLITUS WITHOUT COMPLICATIONS Qualifiers: Diabetes mellitus complication status: with neurologic complications Diabetes mellitus complication detail: with polyneuropathy (16) Hepatitis C Code(s): B19.20 - UNSPECIFIED VIRAL HEPATITIS C WITHOUT HEPATIC COMA
[2018-11-30] MEDS: ALBUTEROL SO4 0.083% IH SOL 2.5 MG/3 ML VIAL.NEB. NEB PRN (19:50)
[2018-11-30] MEDS: HEPARIN NA (PORCINE) 5,000 UNITS/ML 1ML VIAL SQ SCH (23:02)
[2018-11-30] MEDS: INSULIN (LEVEMIR) 100 UNITS/ML UNITS SQ SCH (23:09)
[2018-11-30] MEDS: ATORVASTATIN CA 80 MG TABLET (FP) PO SCH (23:30)
[2018-11-30] MEDS: CHLORHEXIDINE GLUCONATE 4% CLEANSER FOR DECOLONIZATION TP SCH (23:33)
[2018-12-01] MEDS ORDERED: PIPERACILLIN/TAZOBACTAM 4.5 GM VIAL IVPB ONE ×3 (00:52→17:11)
[2018-12-01] MEDS ORDERED: DEXTROSE 5%-WATER 100 ML IVPB ONE ×3 (00:52→17:11)
[2018-12-01] MEDS: PIPERACILLIN/TAZOB 4.5 GM 4.5 GM in DEXTROSE 5%-WATER 100 ML IVPB SCH ×3 (02:09→17:19)
[2018-12-01] MEDS: METOCLOPRAMIDE HCL INJECTION 10 MG/2 ML VIAL IVPUSH SCH ×3 (02:11→15:48)
[2018-12-01] MEDS: PANTOPRAZOLE SODIUM 80 MG in SODIUM CHLORIDE 100 ML IVPB SCH ×2 (05:27→15:49)
[2018-12-01] MEDS: METHADONE HCL 40 MG DISPERSABLE TABLET PO SCH ×2 (05:28→12:05)
[2018-12-01] MEDS: FUROSEMIDE 40 MG/4 ML INJECTABLE VIAL IVPUSH SCH ×2 (05:35→15:48)
[2018-12-01] MEDS: HEPARIN NA (PORCINE) 5,000 UNITS/ML 1ML VIAL SQ SCH ×2 (05:44→15:47)
[2018-12-01] MEDS: GABAPENTIN 100 MG CAPSULE (FP) PO SCH ×2 (05:47→15:48)
[2018-12-01] MEDS: PROPOFOL 1,000,000 MCG/100 ML VIAL IVPB SCH ×5 (05:51→21:00)
[2018-12-01 06:41] LABS: ARTERIAL BLD GAS O2 SATURATION 98.6 % (90-98.9); ARTERIAL BLOOD GAS BASE EXCESS -0.6 meq/l (-2-2); ARTERIAL BLOOD GAS PCO2 45.5 mmHg (35-45); ARTERIAL BLOOD GAS pH 7.35 (7.35-7.45)
[2018-12-01 06:45] LABS: HEMATOCRIT 25.9 % (35.4-49); MCH 29.2 pg (25.7-33.7); MCHC 34.6 g/dl (32.0-35.9); MEAN CELL VOLUME 84.4 fl (80-96); MEAN PLT VOLUME 7.2 fl (7.5-11.1); PLATELET COUNT 206 K/MM3 (134-434); RBC 3.07 M/mm3 (4.00-5.60); WHITE BLOOD COUNT 5.3 K/mm3 (4.0-10.0)
[2018-12-01 06:47] LABS: ALLENS TEST POSITIVE
[2018-12-01] MEDS: INSULIN SLIDING SCALE (NOVOLOG) 1 VIAL SQ SCH ×3 (07:28→17:19)
[2018-12-01 07:59] LABS: ALBUMIN 2.2 g/dl (3.4-5.0); ALK PHOS 87 U/L (45-117); ANION GAP 10 MMOL/L (8-16); BILIRUBIN,TOTAL 0.5 mg/dL (0.2-1); BLOOD UREA NITROGEN 38 mg/dL (7-18); CHLORIDE 99 mmol/L (98-107); CO2 25 mmol/L (21-32); CREATININE 1.6 mg/dL (0.55-1.3); GLUCOSE,RANDOM 173 mg/dL (74-106); MAGNESIUM 1.8 mg/dL (1.8-2.4); PHOSPHOROUS 4.8 mg/dL (2.5-4.9); POTASSIUM 3.9 mmol/L (3.5-5.1); SGOT/AST 61 U/L (15-37); SGPT/ALT 42 U/L (13-61); SODIUM 134 mmol/L (136-145); TOT PROT 5.4 g/dl (6.4-8.2)
--- NOTE | 2018-12-01 08:12 | PN ---
Physical Exam: SUBJECTIVE: Patient seen and examined at bedside this morning. No acute overnight events. Light green drainage from NG tube. Patient did not have bowel movement, melena, or hematochezia overnight. Patient remains intubated, sedated. OBJECTIVE: Vital Signs Period Temp Pulse Resp BP Sys/Andre Pulse Ox Last 24 Hr 98.2 F-99.2 F 62-76 18-24 115-150/67-89 GENERAL: The patient is sedated, intubated. HEENT: Normocephalic, atraumatic. PERRL, sclera anicteric, conjunctiva clear. Neck supple without lymphadenopathy. LUNGS: Mechanical breath sounds equal, clear to auscultation bilaterally, no wheezes, no crackles auscultated. HEART: Regular rate and rhythm, S1, S2 without murmur, rub or gallop. ABDOMEN: Soft, nontender, nondistended, hypoactive bowel sounds. EXTREMITIES: 2+ radial, dorsalis pedis pulses bilaterally, well-perfused. No lower extremity edema. SKIN: Warm, dry. Chronic venous changes noted bilateral lower extremities. Laboratory Results - last 24 hr 11/30/18 11/30/18 11/30/18 05:30 09:24 10:25 WBC RBC Hgb Hct MCV MCH MCHC RDW Plt Count MPV PTT (Actin FS) Puncture Site Right radial ABG pH 7.31 L ABG pCO2 at Pt Temp 50.9 H ABG pO2 at Pt Temp 167.0 H* ABG HCO3 24.8 ABG O2 Sat (Measured) 98.4 ABG O2 Content 11.8 L ABG Base Excess -1.0 Benny Test Positive O2 Delivery Device Mech vent Oxygen Flow Rate 80% Vent Mode A/c Vent Rate 18 Mechanical Rate Yes PEEP 5.0 Pressure Support Vent 450 Sodium Potassium Chloride Carbon Dioxide Anion Gap BUN Creatinine Creat Clearance w eGFR POC Glucometer Random Glucose Calcium 6.7 L* Phosphorus Magnesium Total Bilirubin AST ALT Alkaline Phosphatase Creatine Kinase Creatine Kinase Index CK-MB (CK-2) Troponin I 21.60 H* Total Protein Albumin Vancomycin Pre-Dose 16.4 L 11/30/18 11/30/18 11/30/18 10:30 12:33 16:00 WBC RBC Hgb Hct MCV MCH MCHC RDW Plt Count MPV PTT (Actin FS) Puncture Site ABG pH ABG pCO2 at Pt Temp ABG pO2 at Pt Temp ABG HCO3 ABG O2 Sat (Measured) ABG O2 Content ABG Base Excess Benny Test O2 Delivery Device Oxygen Flow Rate Vent Mode Vent Rate Mechanical Rate PEEP Pressure Support Vent Sodium Potassium Chloride Carbon Dioxide Anion Gap BUN Creatinine Creat Clearance w eGFR POC Glucometer 144 Random Glucose Calcium Phosphorus Magnesium Total Bilirubin AST ALT Alkaline Phosphatase Creatine Kinase 229 180 Creatine Kinase Index 6.8 H* 5.6 H CK-MB (CK-2) 15.8 H 10.2 H Troponin I 20.20 H* 15.20 H* Total Protein Albumin Vancomycin Pre-Dose 11/30/18 11/30/18 11/30/18 16:00 16:15 17:26 WBC RBC Hgb Hct MCV MCH MCHC RDW Plt Count MPV PTT (Actin FS) 56.3 H Puncture Site ABG pH ABG pCO2 at Pt Temp ABG pO2 at Pt Temp ABG HCO3 ABG O2 Sat (Measured) ABG O2 Content ABG Base Excess Benny Test O2 Delivery Device Oxygen Flow Rate Vent Mode Vent Rate Mechanical Rate PEEP Pressure Support Vent Sodium Potassium Chloride Carbon Dioxide Anion Gap BUN Creatinine Creat Clearance w eGFR POC Glucometer 182 Random Glucose Calcium Phosphorus Magnesium Total Bilirubin AST ALT Alkaline Phosphatase Creatine Kinase Creatine Kinase Index Cancelled CK-MB (CK-2) Cancelled Troponin I Total Protein Albumin Vancomycin Pre-Dose 11/30/18 12/01/18 12/01/18 21:38 05:30 05:30 WBC 5.3 RBC 3.07 L Hgb 9.0 L Hct 25.9 L MCV 84.4 MCH 29.2 MCHC 34.6 RDW 18.0 H Plt Count 206 MPV 7.2 L PTT (Actin FS) 28.6 Puncture Site ABG pH ABG pCO2 at Pt Temp ABG pO2 at Pt Temp ABG HCO3 ABG O2 Sat (Measured) ABG O2 Content ABG Base Excess Benny Test O2 Delivery Device Oxygen Flow Rate Vent Mode Vent Rate Mechanical Rate PEEP Pressure Support Vent Sodium Potassium Chloride Carbon Dioxide Anion Gap BUN Creatinine Creat Clearance w eGFR POC Glucometer 161 Random Glucose Calcium Phosphorus Magnesium Total Bilirubin AST ALT Alkaline Phosphatase Creatine Kinase Creatine Kinase Index CK-MB (CK-2) Troponin I Total Protein Albumin Vancomycin Pre-Dose 12/01/18 12/01/18 12/01/18 05:30 05:41 06:05 WBC RBC Hgb Hct MCV MCH MCHC RDW Plt Count MPV PTT (Actin FS) Puncture Site Right brachial ABG pH 7.35 ABG pCO2 at Pt Temp 45.5 H ABG pO2 at Pt Temp 166.0 H* ABG HCO3 24.5 ABG O2 Sat (Measured) 98.6 ABG O2 Content 11.4 L ABG Base Excess -0.6 Benny Test Positive O2 Delivery Device Mech vent Oxygen Flow Rate 60% Vent Mode A/c Vent Rate 24 Mechanical Rate Yes PEEP 10.0 Pressure Support Vent 450 Sodium 134 L Potassium 3.9 Chloride 99 Carbon Dioxide 25 Anion Gap 10 BUN 38 H Creatinine 1.6 H Creat Clearance w eGFR 43.60 POC Glucometer 159 Random Glucose 173 H Calcium Phosphorus 4.8 Magnesium 1.8 Total Bilirubin 0.5 AST 61 H ALT 42 Alkaline Phosphatase 87 Creatine Kinase Creatine Kinase Index CK-MB (CK-2) Troponin I Total Protein 5.4 L Albumin 2.2 L Vancomycin Pre-Dose Active Medications Generic Name Dose Route Start Last Admin Trade Name Freq PRN Reason Stop Dose Admin Acetaminophen 650 mg 11/26/18 08:54 Tylenol - PO Q6H PRN FEVER Acetylcysteine 200 mg 11/29/18 20:00 11/30/18 19:50 Mucomyst 20 Oral / Inh Use Only* NEB 200 mg RBID YAKOV Administration Albuterol Sulfate 1 amp 11/29/18 21:21 11/30/18 19:50 Ventolin 0.083% Nebulizer Soln - NEB 1 amp Q4H PRN Administration SHORT OF BREATH/WHEEZING Allopurinol 300 mg 11/26/18 10:00 11/30/18 10:30 Zyloprim - PO 300 mg DAILY YAKOV Administration Aspirin 81 mg 11/27/18 10:15 11/30/18 10:01 Asa - PO 81 mg DAILY YAKOV Administration Atorvastatin Calcium 80 mg 11/30/18 22:00 11/30/18 23:30 Lipitor - PO Not Given HS YAKOV Buspirone HCl 15 mg 11/26/18 10:00 11/30/18 23:07 Buspar - PO Not Given BID YAKOV Calcium Carbonate/Cholecalciferol 1 tab 11/26/18 10:00 11/30/18 10:03 Os-Kyler 500+D - PO 1 tab DAILY YAKOV Administration Chlorhexidine Gluconate 1 applic 11/26/18 22:00 11/30/18 23:33 Hibiclens For Decolonization - TP 1 applic HS YAKOV Administration Chlorhexidine Gluconate 15 ml 11/27/18 22:00 11/30/18 23:32 Peridex - MM 15 ml BID YAKOV Administration Docusate Sodium 100 mg 11/26/18 08:54 Colace - PO BID PRN CONSTIPATION Furosemide 40 mg 11/29/18 14:45 12/01/18 05:35 Lasix Injection - IVPUSH 40 mg BID@0600,1400 YAKOV Administration Gabapentin 100 mg 11/26/18 14:00 12/01/18 05:47 Neurontin - PO Not Given TID YAKOV Heparin Sodium (Porcine) 5,000 unit 11/30/18 22:00 12/01/18 05:44 Heparin - SQ 5,000 unit TID YAKOV Administration Propofol 1,000,000 mcg in 100 mls @ 9.349 mls/hr 11/26/18 08:54 12/01/18 05: 51 Diprivan - IVPB 55 mcg/kg/min TITR YAKOV 34.278 mls/hr Administration Protocol 15 MCG/KG/MIN Piperacillin Sod/Tazobactam 100 mls @ 200 mls/hr 11/28/18 18:00 12/01/18 02: 09 Sod 4.5 gm/ Dextrose IVPB 200 mls/hr Q8H-IV YAKOV Administration Protocol Vancomycin HCl 1,250 mg/ 250 mls @ 250 mls/2 hr 11/28/18 10:45 11/30/18 11:47 Dextrose IVPB 250 mls/2 hr Q24H YAKOV Administration Protocol Pantoprazole Sodium 80 mg/ 100 mls @ 10 mls/hr 11/29/18 17:30 12/01/18 05:27 Sodium Chloride IVPB 10 mls/hr Q10H YAKOV Administration 8 MG/HR Insulin Aspart 1 vial 11/26/18 11:00 12/01/18 07:28 Novolog Vial Sliding Scale - SQ Not Given ACHS [facility] Protocol Insulin Detemir 20 units 11/30/18 21:42 11/30/18 23:09 Levemir Vial SQ 20 units HS YAKOV Administration Methadone HCl 80 mg 11/27/18 06:00 12/01/18 05:28 Dolophine - PO Not Given DAILY@0600 [facility] Methylprednisolone Sodium Succinate 40 mg 11/28/18 11:30 11/30/18 23:02 Solu-Medrol - IVPUSH 40 mg BID YAKOV Administration Metoclopramide HCl 10 mg 11/29/18 21:00 12/01/18 02:11 Reglan Injection - IVPUSH 10 mg Q6H-IV YAKOV Administration Metoprolol Succinate 25 mg 11/30/18 11:30 11/30/18 12:29 Toprol Xl - PO 25 mg DAILY YAKOV Administration Midazolam HCl 2 mg 11/27/18 22:47 11/27/18 03:58 Versed - IVPUSH 2 mg Q4H PRN Administration AGITATION Polyethylene Glycol 17 gm 11/27/18 12:30 11/30/18 10:02 Miralax (For Daily Use) - PO Not Given DAILY YAKOV Scopolamine HBr 1 patch 11/28/18 22:45 11/28/18 22:59 Transderm-Scop - TD 1 patch Q72H YAKOV Administration Tiotropium Lopez 2 puff 11/26/18 10:00 11/30/18 15:11 Spiriva Respimat IH Not Given DAILY YAKOV Valacyclovir HCl 500 mg 11/26/18 10:00 11/30/18 11:00 Valtrex - PO 500 mg DAILY YAKOV Administration ASSESSMENT/PLAN: Patient is a 63 year old male with history of hypertension, hyperlipidemia, insulin dependent diabetes mellitus, peripheral vascular disease, opoid dependence, multiple myeloma, admitted to ICU for acute hypoxic respiratory failure. Neurological -Patient is sedated with Propofol, Versed. -Methadone 40mg PO daily -Monitor for signs of mental status change Pulmonary Acute hypoxic, hypoxemic respiratory failure Pneumonia, +MRSA nares colonization -Ventilator settings changed today: RR 24, tidal volume 450, PEEP 8, FiO2 50%. -Chest radiograph shows bilateral congestive, infiltrative changes. -Vancomycin 1250mg IV daily (day #4) -Zosyn 4.5 grams Q8H (day #4) -Methylprednisone 40mg IV BID -Lasix 40mg IV BID -DuoNebs Q6H, Mucomyst nebulizer BID, Spiriva 2 puffs IH daily -Maintain oxygen saturation greater than 90% Cardiovascular Hypertension NSTEMI -Troponin peaked at 21.6. Discussed with Cardiology, who recommends continuing Aspirin at this time. No indication for Heparin drip -Heparin drip discontinued -Aspirin 81mg GT daily -Metoprolol 25mg GT daily -Cardiac ECHO shows EF 45-50%, mild global hypokinesis, grade I diastolic dysfunction. -Arterial doppler right upper extremity shows decreased monophasic flow within right radial and ulnar arteries. -Vascular surgery consult appreciated. No surgical intervention indicated at this time. Gastrointestinal Constipation History of Hepatitis C -HCV RNA PCR negative -Dark- colored emesis last evening. No episodes of emesis or bowel movements overnight. -GI consult (Dr. Up) appreciated. Likely stagnant gastric contents, secondary to diabetic gastroparesis. Less impressive for GI bleed. -Protonix drip 8mg/ hour IV -Metoclopramide 10mg IV Q6H -Octreotide drip discontinued -Monitor serial occult blood testing -NG tube set to continuous suction. -Maintain NPO. Endocrine Insulin dependent diabetes mellitus -Insulin sliding scale ACHS -Fingerstick blood glucose monitoring ACHS -Gabapentin 100mg PO TID for peripheral neuropathy Hematologic Multiple Myeloma -Hb 9.0, Hct 25.9, stable -S/P 1 unit PRBC transfusion -Maintain Hb above 8.0 -Multiple myeloma treatment, per hematology -Hematology recommendations appreciated Renal DARIO -improving BUN 47, Cr 1.4 Hypocalcemia -Corrected Ca = 8.1. -Nephrology recommendations (Dr. Cates) appreciated FEN -Fluids: No IV fluids -Electrolytes: Hypocalcemia. Follow CMP; replete as necessary. -Nutrition: NPO Prophylaxis -Heparin 5000u subq TID Disposition -Continue care in ICU. Patient is Full Code Visit type - Emergency Visit Emergency Visit: Yes ED Registration Date: 11/20/18 Care time: The patient presented to the Emergency Department on the above date and was hospitalized for further evaluation of their emergent condition. - New Patient This patient is new to me today: No - Critical Care Critical Care patient: Yes Total Critical Care Time (in minutes): 35 Critical Care Statement: The care of this patient involved high complexity decision making to prevent further life threatening deterioration of the patient 's condition and/or to evaluate & treat vital organ system(s) failure or risk of failure. - Discharge Referral Referred to [facility] No
[2018-12-01 08:39] LABS: CALCIUM 6.7 mg/dL (8.5-10.1)
[2018-12-01] MEDS: ACETYLCYSTEINE 20% 200MG/ML 4 ML VIAL *FOR ORAL / INH USE ONLY NEB SCH ×2 (08:54→20:02)
[2018-12-01] MEDS: ALBUTEROL SO4 0.083% IH SOL 2.5 MG/3 ML VIAL.NEB. NEB PRN ×3 (08:55→20:03)
--- NOTE | 2018-12-01 09:01 | PN ---
Progress Note, Physician - Current Medication List Current Medications: Active Medications Acetaminophen (Tylenol -) 650 mg PO Q6H PRN PRN Reason: FEVER Acetylcysteine (Mucomyst 20 Oral / Inh Use Only*) 200 mg NEB RBID [facility] Last Admin: 12/01/18 08:54 Dose: 200 mg Albuterol Sulfate (Ventolin 0.083% Nebulizer Soln -) 1 amp NEB Q4H PRN PRN Reason: SHORT OF BREATH/WHEEZING Last Admin: 12/01/18 08:55 Dose: 1 amp Allopurinol (Zyloprim -) 300 mg PO DAILY [facility] Last Admin: 11/30/18 10:30 Dose: 300 mg Aspirin (Asa -) 81 mg PO DAILY [facility] Last Admin: 11/30/18 10:01 Dose: 81 mg Atorvastatin Calcium (Lipitor -) 80 mg PO HS [facility] Last Admin: 11/30/18 23:30 Dose: Not Given Buspirone HCl (Buspar -) 15 mg PO BID [facility] Last Admin: 11/30/18 23:07 Dose: Not Given Calcium Carbonate/Cholecalciferol (Os-Kyler 500+D -) 1 tab PO DAILY [facility] Last Admin: 11/30/18 10:03 Dose: 1 tab Chlorhexidine Gluconate (Hibiclens For Decolonization -) 1 applic TP HS [facility] Last Admin: 11/30/18 23:33 Dose: 1 applic Chlorhexidine Gluconate (Peridex -) 15 ml MM BID [facility] Last Admin: 11/30/18 23:32 Dose: 15 ml Docusate Sodium (Colace -) 100 mg PO BID PRN PRN Reason: CONSTIPATION Furosemide (Lasix Injection -) 40 mg IVPUSH BID@0600,1400 [facility] Last Admin: 12/01/18 05:35 Dose: 40 mg Gabapentin (Neurontin -) 100 mg PO TID [facility] Last Admin: 12/01/18 05:47 Dose: Not Given Heparin Sodium (Porcine) (Heparin -) 5,000 unit SQ TID [facility] Last Admin: 12/01/18 05:44 Dose: 5,000 unit Propofol (Diprivan -) 1,000,000 mcg in 100 mls @ 9.349 mls/hr IVPB TITR [facility]; Protocol Last Admin: 12/01/18 05:51 Dose: 55 mcg/kg/min, 34.278 mls/hr Piperacillin Sod/Tazobactam (Sod 4.5 gm/ Dextrose) 100 mls @ 200 mls/hr IVPB Q8H-IV [facility]; Protocol Last Admin: 12/01/18 02:09 Dose: 200 mls/hr Vancomycin HCl 1,250 mg/ (Dextrose) 250 mls @ 250 mls/2 hr IVPB Q24H [facility]; Protocol Last Admin: 11/30/18 11:47 Dose: 250 mls/2 hr Pantoprazole Sodium 80 mg/ (Sodium Chloride) 100 mls @ 10 mls/hr IVPB Q10H [facility] Last Admin: 12/01/18 05:27 Dose: 10 mls/hr Insulin Aspart (Novolog Vial Sliding Scale -) 1 vial SQ ACHS [facility]; Protocol Last Admin: 12/01/18 07:28 Dose: Not Given Insulin Detemir (Levemir Vial) 20 units SQ HS [facility] Last Admin: 11/30/18 23:09 Dose: 20 units Methadone HCl (Dolophine -) 80 mg PO DAILY@0600 [facility] Last Admin: 12/01/18 05:28 Dose: Not Given Methylprednisolone Sodium Succinate (Solu-Medrol -) 40 mg IVPUSH BID [facility] Last Admin: 11/30/18 23:02 Dose: 40 mg Metoclopramide HCl (Reglan Injection -) 10 mg IVPUSH Q6H-IV [facility] Last Admin: 12/01/18 02:11 Dose: 10 mg Metoprolol Succinate (Toprol Xl -) 25 mg PO DAILY [facility] Last Admin: 11/30/18 12:29 Dose: 25 mg Midazolam HCl (Versed -) 2 mg IVPUSH Q4H PRN PRN Reason: AGITATION Last Admin: 11/27/18 03:58 Dose: 2 mg Polyethylene Glycol (Miralax (For Daily Use) -) 17 gm PO DAILY [facility] Last Admin: 11/30/18 10:02 Dose: Not Given Scopolamine HBr (Transderm-Scop -) 1 patch TD Q72H [facility] Last Admin: 11/28/18 22:59 Dose: 1 patch Tiotropium [place] (Spiriva Respimat) 2 puff IH DAILY [facility] Last Admin: 11/30/18 15:11 Dose: Not Given Valacyclovir HCl (Valtrex -) 500 mg PO DAILY [facility] Last Admin: 11/30/18 11:00 Dose: 500 mg - Objective Vital Signs: Vital Signs Temperature 99.2 F 12/01/18 06:00 Pulse Rate 76 12/01/18 08:00 Respiratory Rate 22 H 12/01/18 08:00 Blood Pressure 150/77 12/01/18 08:00 O2 Sat by Pulse Oximetry (%) 100 11/29/18 22:00 Cardiovascular: Yes: S1, S2 Respiratory: Yes: Mechanically Ventilated Gastrointestinal: Yes: Normal Bowel Sounds, Soft Labs: CBC, BMP 12/01/18 05:30 12/01/18 05:30 INR, PTT INR 1.19 (0.83-1.09) H 11/30/18 05:30 Fibrinogen > 500.0 mg/dL (238-498) H 11/25/18 20:00 Problem List - Problems (1) Respiratory failure Assessment/Plan: -mechanical vent -pulmonary consult -bronchodilators -r/o HCAP -IV abx -ID on board Code(s): J96.90 - RESPIRATORY FAILURE, UNSP, UNSP W HYPOXIA OR HYPERCAPNIA (2) CKD (chronic kidney disease) Assessment/Plan: -improved -nephrology on board -monitor trend Code(s): N18.9 - CHRONIC KIDNEY DISEASE, UNSPECIFIED (3) Diabetes Assessment/Plan: -bgm ac hs -Check A1c -Insulin: Novolog+Levemir -RD on board -endocrinology consult Code(s): E11.9 - TYPE 2 DIABETES MELLITUS WITHOUT COMPLICATIONS Qualifiers: Diabetes mellitus type: type 2 (4) Hyponatremia Assessment/Plan: Laboratory Tests 12/01/18 05:30 Sodium 134 L monitor Code(s): E87.1 - HYPO-OSMOLALITY AND HYPONATREMIA (5) Narcotic dependence Assessment/Plan: methadone Code(s): F11.20 - OPIOID DEPENDENCE, UNCOMPLICATED (6) Vertebral compression fracture Assessment/Plan: radiation oncology and JOSE MANUEL Code(s): M48.50XA - COLLAPSED VERTEBRA, NEC, SITE UNSP, INIT (3) Hyponatremia Assessment/Plan: ivf sodium from 125 to 129 Code(s): E87.1 - HYPO-OSMOLALITY AND HYPONATREMIA (4) Diabetes Assessment/Plan: levemir Code(s): E11.9 - TYPE 2 DIABETES MELLITUS WITHOUT COMPLICATIONS Qualifiers: Diabetes mellitus type: type 2 (5) Multiple myeloma Assessment/Plan: apreicate oncology eval Code(s): C90.00 - MULTIPLE MYELOMA NOT HAVING ACHIEVED REMISSION Code(s): M48.50XA - COLLAPSED VERTEBRA, NEC, SITE UNSP, INIT (7) Edema Assessment/Plan: dc ivf duplex Code(s): R60.9 - EDEMA, UNSPECIFIED (8) Anemia Assessment/Plan: -guaiac negative, would repeat -H/H trending down -check Iron, thyroid profile, B12, FA -monitor trend Code(s): D64.9 - ANEMIA, UNSPECIFIED (9) Elevated troponin Code(s): R74.8 - ABNORMAL LEVELS OF OTHER SERUM ENZYMES (10) Multiple myeloma Code(s): C90.00 - MULTIPLE MYELOMA NOT HAVING ACHIEVED REMISSION (11) Pulmonary congestion Code(s): R09.89 - OTH SYMPTOMS AND SIGNS INVOLVING THE CIRC AND RESP SYSTEMS
[2018-12-01] MEDS ORDERED: PT OWN MED DRAWER 7, Y5N ONE ×2 (09:38→13:29)
[2018-12-01] MEDS: metoPROLOL SUCCINATE 25 MG TAB.SR.24H (FP) PO SCH (09:57)
[2018-12-01] MEDS: methylPREDNISolone NA SUCC 40 MG/1 ML VIAL IVPUSH SCH (09:57)
[2018-12-01] MEDS: ASPIRIN 81 MG CHEWABLE TABLETS PO SCH (09:58)
[2018-12-01] MEDS: ALLOPURINOL 300 MG TABLET (FP) PO SCH (09:58)
[2018-12-01] MEDS: CALCIUM 500MG/VIT-D 200 UNITS COMBO TABLET (FP) PO SCH (09:58)
[2018-12-01] MEDS: valACYclovir HCL 500 MG TABLET (FP) PO SCH (09:58)
[2018-12-01] MEDS: CHLORHEXIDINE GLUCONATE 0.12% 15ML CUP MM SCH (09:59)
[2018-12-01] MEDS: busPIRone HCL 5 MG TABLET PO SCH (09:59)
[2018-12-01] MEDS: TIOTROPIUM BROMIDE 2.5 MCG (SPIRIVA) RESPIMAT INHALER IH SCH (10:00)
[2018-12-01] MEDS: VANCOMYCIN HCL 1,250 MG in DEXTROSE 5%-WATER - 250 ML IVPB SCH (10:03)
--- NOTE | 2018-12-01 10:21 | PN ---
Physical Exam: SUBJECTIVE: Patient seen and examined; events noted; off heparin drip; intubated and sedated; heme/hct remain stable; no current active bleed. OBJECTIVE: Vital Signs Period Temp Pulse Resp BP Sys/Andre Pulse Ox Last 24 Hr 98.2 F-99.2 F 62-76 18-24 116-150/67-89 GENERAL: intubated and sedated HEAD: Normal with no signs of trauma. LUNGS: Breath sounds equal, clear to auscultation bilaterally, no wheezes, no crackles, no accessory muscle use. HEART: Regular rate and rhythm, S1, S2 without murmur, rub or gallop. ABDOMEN: Soft, nontender, nondistended, normoactive bowel sounds, no guarding, no rebound, no hepatosplenomegaly, no masses. EXTREMITIES: 2+ pulses, warm, well-perfused, no edema. NEUROLOGICAL: Cranial nerves II through XII grossly intact. Normal speech, gait not observed. PSYCH: Normal mood, normal affect. SKIN: Warm, dry, normal turgor, no rashes or lesions noted Laboratory Results - last 24 hr 11/30/18 11/30/18 11/30/18 10:25 10:30 12:33 WBC RBC Hgb Hct MCV MCH MCHC RDW Plt Count MPV PTT (Actin FS) Puncture Site ABG pH ABG pCO2 at Pt Temp ABG pO2 at Pt Temp ABG HCO3 ABG O2 Sat (Measured) ABG O2 Content ABG Base Excess Benny Test O2 Delivery Device Oxygen Flow Rate Vent Mode Vent Rate Mechanical Rate PEEP Pressure Support Vent Sodium Potassium Chloride Carbon Dioxide Anion Gap BUN Creatinine Creat Clearance w eGFR POC Glucometer 144 Random Glucose Calcium Phosphorus Magnesium Total Bilirubin AST ALT Alkaline Phosphatase Creatine Kinase 229 Creatine Kinase Index 6.8 H* CK-MB (CK-2) 15.8 H Troponin I 20.20 H* Total Protein Albumin Vancomycin Pre-Dose 16.4 L 11/30/18 11/30/18 11/30/18 16:00 16:00 16:15 WBC RBC Hgb Hct MCV MCH MCHC RDW Plt Count MPV PTT (Actin FS) 56.3 H Puncture Site ABG pH ABG pCO2 at Pt Temp ABG pO2 at Pt Temp ABG HCO3 ABG O2 Sat (Measured) ABG O2 Content ABG Base Excess Benny Test O2 Delivery Device Oxygen Flow Rate Vent Mode Vent Rate Mechanical Rate PEEP Pressure Support Vent Sodium Potassium Chloride Carbon Dioxide Anion Gap BUN Creatinine Creat Clearance w eGFR POC Glucometer Random Glucose Calcium Phosphorus Magnesium Total Bilirubin AST ALT Alkaline Phosphatase Creatine Kinase 180 Creatine Kinase Index 5.6 H Cancelled CK-MB (CK-2) 10.2 H Cancelled Troponin I 15.20 H* Total Protein Albumin Vancomycin Pre-Dose 11/30/18 11/30/18 12/01/18 17:26 21:38 05:30 WBC 5.3 RBC 3.07 L Hgb 9.0 L Hct 25.9 L MCV 84.4 MCH 29.2 MCHC 34.6 RDW 18.0 H Plt Count 206 MPV 7.2 L PTT (Actin FS) Puncture Site ABG pH ABG pCO2 at Pt Temp ABG pO2 at Pt Temp ABG HCO3 ABG O2 Sat (Measured) ABG O2 Content ABG Base Excess Benny Test O2 Delivery Device Oxygen Flow Rate Vent Mode Vent Rate Mechanical Rate PEEP Pressure Support Vent Sodium Potassium Chloride Carbon Dioxide Anion Gap BUN Creatinine Creat Clearance w eGFR POC Glucometer 182 161 Random Glucose Calcium Phosphorus Magnesium Total Bilirubin AST ALT Alkaline Phosphatase Creatine Kinase Creatine Kinase Index CK-MB (CK-2) Troponin I Total Protein Albumin Vancomycin Pre-Dose 12/01/18 12/01/18 12/01/18 05:30 05:30 05:41 WBC RBC Hgb Hct MCV MCH MCHC RDW Plt Count MPV PTT (Actin FS) 28.6 Puncture Site ABG pH ABG pCO2 at Pt Temp ABG pO2 at Pt Temp ABG HCO3 ABG O2 Sat (Measured) ABG O2 Content ABG Base Excess Benny Test O2 Delivery Device Oxygen Flow Rate Vent Mode Vent Rate Mechanical Rate PEEP Pressure Support Vent Sodium 134 L Potassium 3.9 Chloride 99 Carbon Dioxide 25 Anion Gap 10 BUN 38 H Creatinine 1.6 H Creat Clearance w eGFR 43.60 POC Glucometer 159 Random Glucose 173 H Calcium 6.7 L* Phosphorus 4.8 Magnesium 1.8 Total Bilirubin 0.5 AST 61 H ALT 42 Alkaline Phosphatase 87 Creatine Kinase Creatine Kinase Index CK-MB (CK-2) Troponin I Total Protein 5.4 L Albumin 2.2 L Vancomycin Pre-Dose 12/01/18 06:05 WBC RBC Hgb Hct MCV MCH MCHC RDW Plt Count MPV PTT (Actin FS) Puncture Site Right brachial ABG pH 7.35 ABG pCO2 at Pt Temp 45.5 H ABG pO2 at Pt Temp 166.0 H* ABG HCO3 24.5 ABG O2 Sat (Measured) 98.6 ABG O2 Content 11.4 L ABG Base Excess -0.6 Benny Test Positive O2 Delivery Device Mech vent Oxygen Flow Rate 60% Vent Mode A/c Vent Rate 24 Mechanical Rate Yes PEEP 10.0 Pressure Support Vent 450 Sodium Potassium Chloride Carbon Dioxide Anion Gap BUN Creatinine Creat Clearance w eGFR POC Glucometer Random Glucose Calcium Phosphorus Magnesium Total Bilirubin AST ALT Alkaline Phosphatase Creatine Kinase Creatine Kinase Index CK-MB (CK-2) Troponin I Total Protein Albumin Vancomycin Pre-Dose Active Medications Generic Name Dose Route Start Last Admin Trade Name Freq PRN Reason Stop Dose Admin Acetaminophen 650 mg 11/26/18 08:54 Tylenol - PO Q6H PRN FEVER Acetylcysteine 200 mg 11/29/18 20:00 12/01/18 08:54 Mucomyst 20 Oral / Inh Use Only* NEB 200 mg RBID YAKOV Administration Albuterol Sulfate 1 amp 11/29/18 21:21 12/01/18 08:55 Ventolin 0.083% Nebulizer Soln - NEB 1 amp Q4H PRN Administration SHORT OF BREATH/WHEEZING Allopurinol 300 mg 11/26/18 10:00 12/01/18 09:58 Zyloprim - PO 300 mg DAILY [facility] Administration Aspirin 81 mg 11/27/18 10:15 12/01/18 09:58 Asa - PO 81 mg DAILY [facility] Administration Atorvastatin Calcium 80 mg 11/30/18 22:00 11/30/18 23:30 Lipitor - PO Not Given HS YAKOV Buspirone HCl 15 mg 11/26/18 10:00 12/01/18 09:59 Buspar - PO 15 mg BID [facility] Administration Calcium Carbonate/Cholecalciferol 1 tab 11/26/18 10:00 12/01/18 09:58 Os-Kyler 500+D - PO 1 tab DAILY [facility] Administration Chlorhexidine Gluconate 1 applic 11/26/18 22:00 11/30/18 23:33 Hibiclens For Decolonization - TP 1 applic HS [facility] Administration Chlorhexidine Gluconate 15 ml 11/27/18 22:00 12/01/18 09:59 Peridex - MM 15 ml BID [facility] Administration Docusate Sodium 100 mg 11/26/18 08:54 Colace - PO BID PRN CONSTIPATION Furosemide 40 mg 11/29/18 14:45 12/01/18 05:35 Lasix Injection - IVPUSH 40 mg BID@0600,1400 [facility] Administration Gabapentin 100 mg 11/26/18 14:00 12/01/18 05:47 Neurontin - PO Not Given TID [facility]OK[facility] Heparin Sodium (Porcine) 5,000 unit 11/30/18 22:00 12/01/18 05:44 Heparin - SQ 5,000 unit TID [facility]AK[facility] Administration Propofol 1,000,000 mcg in 100 mls @ 9.349 mls/hr 11/26/18 08:54 12/01/18 10: 03 Diprivan - IVPB 55 mcg/kg/min TITR YAKOV 34.278 mls/hr Administration Protocol 15 MCG/KG/MIN Piperacillin Sod/Tazobactam 100 mls @ 200 mls/hr 11/28/18 18:00 12/01/18 10: 00 Sod 4.5 gm/ Dextrose IVPB 200 mls/hr Q8H-IV [facility] Administration Protocol Vancomycin HCl 1,250 mg/ 250 mls @ 250 mls/2 hr 11/28/18 10:45 12/01/18 10:03 Dextrose IVPB 250 mls/2 hr Q24H [facility] Administration Protocol Pantoprazole Sodium 80 mg/ 100 mls @ 10 mls/hr 11/29/18 17:30 12/01/18 05:27 Sodium Chloride IVPB 10 mls/hr Q10H [facility] Administration 8 MG/HR Insulin Aspart 1 vial 11/26/18 11:00 12/01/18 07:28 Novolog Vial Sliding Scale - SQ Not Given ACHS [facility] Protocol Insulin Detemir 20 units 11/30/18 21:42 11/30/18 23:09 Levemir Vial SQ 20 units HS [facility] Administration Methadone HCl 80 mg 11/27/18 06:00 12/01/18 05:28 Dolophine - PO Not Given DAILY@0600 [facility] Methylprednisolone Sodium Succinate 40 mg 11/28/18 11:30 12/01/18 09:57 Solu-Medrol - IVPUSH 40 mg BID [facility] Administration Metoclopramide HCl 10 mg 11/29/18 21:00 12/01/18 09:57 Reglan Injection - IVPUSH 10 mg Q6H-IV [facility] Administration Metoprolol Succinate 25 mg 11/30/18 11:30 12/01/18 09:57 Toprol Xl - PO 25 mg DAILY [facility] Administration Midazolam HCl 2 mg 11/27/18 22:47 11/27/18 03:58 Versed - IVPUSH 2 mg Q4H PRN Administration AGITATION Polyethylene Glycol 17 gm 11/27/18 12:30 11/30/18 10:02 Miralax (For Daily Use) - PO Not Given DAILY [facility] Scopolamine HBr 1 patch 11/28/18 22:45 11/28/18 22:59 Transderm-Scop - TD 1 patch Q72H [facility] Administration Tiotropium [place] 2 puff 11/26/18 10:00 12/01/18 10:00 Spiriva Respimat IH Not Given DAILY [facility] Valacyclovir HCl 500 mg 11/26/18 10:00 12/01/18 09:58 Valtrex - PO 500 mg DAILY [facility] Administration ASSESSMENT/PLAN: 63 yo M, with PMH of HTN, HLD, IDDM, Hep C (s/p Reji), PVD, past opioid use ( on methadone), and multiple myeloma , who was admitted for nausea, vomiting, abdominal distension and discomfort, and constipation worsened over the weekend. He received radiation to L spine and left acetabulum. MM with osteolytic lesions NSTEMI Acute respiratory failure anemia CKD hyponatremia hypertension DM -management of acute respiratory failure by ICU team -H/H stable; no active bleed; off hep ggt -MRI noted neurosurgery eval; vertebral MM; nothing to do at this time; no significant neurological element compression -He has been on velcade/cytoxan/dexamethasone and started zometa monthly -seen by rad/onc; can f/u in office -PULM/GI/CARDS/ID following Visit type - Emergency Visit Emergency Visit: Yes ED Registration Date: 11/20/18 Care time: The patient presented to the Emergency Department on the above date and was hospitalized for further evaluation of their emergent condition. - New Patient This patient is new to me today: No - Critical Care Critical Care patient: Yes Total Critical Care Time (in minutes): 45 Critical Care Statement: The care of this patient involved high complexity decision making to prevent further life threatening deterioration of the patient 's condition and/or to evaluate & treat vital organ system(s) failure or risk of failure.
[2018-12-01] MEDS ORDERED: MIDAZOLAM 100 MG in SODIUM CHLORIDE 100 ML IVPB SCH (11:30)
[2018-12-01] MEDS ORDERED: MIDAZOLAM 100 MG/100 ML MG IVPB ONE (12:01)
--- NOTE | 2018-12-01 14:03 | PN ---
Progress Note (short form) - Note Progress Note: sedated, intubated oxygenation improved Vital Signs Period Temp Pulse Resp BP Sys/Andre Pulse Ox Last 24 Hr 98.2 F-99.9 F 62-78 22-24 116-164/59-89 100 cor-rrr lungs decreased bs at bases abd soft,nt ext no edema CBC, BMP 12/01/18 05:30 12/01/18 05:30 Microbiology 11/25/18 20:10 Blood - Peripheral Venous Blood Culture - Final NO GROWTH AFTER 5 DAYS INCUBATION 11/25/18 20:00 Blood - Peripheral Venous Blood Culture - Final NO GROWTH AFTER 5 DAYS INCUBATION 11/28/18 10:40 Sputum - Endotrachea Suction/Ventilator Gram Stain - Final 11/28/18 10:40 Sputum - Endotrachea Suction/Ventilator Sputum Culture - Final S Aureus 11/25/18 20:10 Urine - Urine Massey Urine Culture - Final NO GROWTH OBTAINED 11/26/18 13:20 Urine For Antigen Detection Legionella Antigen - Final 11/26/18 13:20 Urine For Antigen Detection Streptococcus pneumoniae Antigen (M - Final 11/20/18 08:11 Urine - Urine Clean Catch Urine Culture - Final NO GROWTH OBTAINED vanco trough 20 a/p respiratory failure left lung pneumonia sputum with MRSA multiple myeloma/vertebral fractures renal insufficiency- coffee ground emesis- r/o UGI bleed +troponins-cardiology f/u noted vancomycin/zosyn- day #6 antibioitcs d/c zosyn in am (7 days) continue vancomycin by levels
--- NOTE | 2018-12-01 14:14 | PN ---
Teaching Attending Note Name of Resident: Tarun Guzmán ATTENDING PHYSICIAN STATEMENT I saw and evaluated the patient. I reviewed the resident's note and discussed the case with the resident. I agree with the resident's findings and plan as documented. SUBJECTIVE: Patient seen and examined in the ICU. Remains intubated and sedated. AC mode of vent, 60% and PEEP 10. CXR:bilateral airspace disease Intake & Output 11/28/18 11/29/18 11/30/18 12/01/18 23:59 23:59 23:59 23:59 Intake Total 3660 2759.8 2545.8 Output Total 3000 2100 2400 1900 Balance 660 659.8 145.8 -1900 Weight 229 lb 8.019 oz 229 lb 1.6 oz 230 lb 3.2 oz Last Vital Signs Temp Pulse Resp BP Pulse Ox 99.9 F H 78 22 H 133/68 100 12/01/18 13:33 12/01/18 13:33 12/01/18 13:33 12/01/18 13:33 12/01/18 11:32 Active Medications Acetaminophen (Tylenol -) 650 mg PO Q6H PRN PRN Reason: FEVER Acetylcysteine (Mucomyst 20 Oral / Inh Use Only*) 200 mg NEB RBID [facility] Last Admin: 12/01/18 08:54 Dose: 200 mg Albuterol Sulfate (Ventolin 0.083% Nebulizer Soln -) 1 amp NEB Q4H PRN PRN Reason: SHORT OF BREATH/WHEEZING Last Admin: 12/01/18 12:28 Dose: 1 amp Allopurinol (Zyloprim -) 300 mg PO DAILY [facility] Last Admin: 12/01/18 09:58 Dose: 300 mg Aspirin (Asa -) 81 mg PO DAILY [facility] Last Admin: 12/01/18 09:58 Dose: 81 mg Atorvastatin Calcium (Lipitor -) 80 mg PO HS [facility] Last Admin: 11/30/18 23:30 Dose: Not Given Buspirone HCl (Buspar -) 15 mg PO BID [facility] Last Admin: 12/01/18 09:59 Dose: 15 mg Calcium Carbonate/Cholecalciferol (Os-Kyler 500+D -) 1 tab PO DAILY [facility] Last Admin: 12/01/18 09:58 Dose: 1 tab Chlorhexidine Gluconate (Hibiclens For Decolonization -) 1 applic TP [facility] Last Admin: 11/30/18 23:33 Dose: 1 applic Chlorhexidine Gluconate (Peridex -) 15 ml MM BID [facility] Last Admin: 12/01/18 09:59 Dose: 15 ml Docusate Sodium (Colace -) 100 mg PO BID PRN PRN Reason: CONSTIPATION Furosemide (Lasix Injection -) 40 mg IVPUSH BID@0600,1400 [facility] Last Admin: 12/01/18 05:35 Dose: 40 mg Gabapentin (Neurontin -) 100 mg PO TID [facility] Last Admin: 12/01/18 05:47 Dose: Not Given Heparin Sodium (Porcine) (Heparin -) 5,000 unit SQ TID [facility] Last Admin: 12/01/18 05:44 Dose: 5,000 unit Propofol (Diprivan -) 1,000,000 mcg in 100 mls @ 9.349 mls/hr IVPB TITR [facility]; Protocol Last Admin: 12/01/18 10:03 Dose: 55 mcg/kg/min, 34.278 mls/hr Piperacillin Sod/Tazobactam (Sod 4.5 gm/ Dextrose) 100 mls @ 200 mls/hr IVPB Q8H-IV [facility]; Protocol Last Admin: 12/01/18 10:00 Dose: 200 mls/hr Pantoprazole Sodium 80 mg/ (Sodium Chloride) 100 mls @ 10 mls/hr IVPB Q10H [facility] Last Admin: 12/01/18 05:27 Dose: 10 mls/hr Midazolam HCl 100 mg/ Sodium (Chloride) 100 mls @ 1 mls/hr IVPB TITR [facility]; Protocol Last Admin: 12/01/18 12:05 Dose: 1 mg/hr, 1 mls/hr Insulin Aspart (Novolog Vial Sliding Scale -) 1 vial SQ ACHS [facility]; Protocol Last Admin: 12/01/18 12:06 Dose: 2 units Insulin Detemir (Levemir Vial) 20 units SQ [facility] Last Admin: 11/30/18 23:09 Dose: 20 units Methadone HCl (Dolophine -) 40 mg PO DAILY@0600 [facility] Last Admin: 12/01/18 12:05 Dose: 40 mg Methylprednisolone Sodium Succinate (Solu-Medrol -) 40 mg IVPUSH BID [facility] Last Admin: 12/01/18 09:57 Dose: 40 mg Metoclopramide HCl (Reglan Injection -) 10 mg IVPUSH Q6H-IV [facility] Last Admin: 12/01/18 09:57 Dose: 10 mg Metoprolol Succinate (Toprol Xl -) 25 mg PO DAILY [facility] Last Admin: 12/01/18 09:57 Dose: 25 mg Midazolam HCl (Versed -) 2 mg IVPUSH Q4H PRN PRN Reason: AGITATION Last Admin: 11/27/18 03:58 Dose: 2 mg Polyethylene Glycol (Miralax (For Daily Use) -) 17 gm PO DAILY [facility] Last Admin: 11/30/18 10:02 Dose: Not Given Scopolamine HBr (Transderm-Scop -) 1 patch TD Q72H [facility] Last Admin: 11/28/18 22:59 Dose: 1 patch Tiotropium [place] (Spiriva Respimat) 2 puff IH DAILY [facility] Last Admin: 12/01/18 10:00 Dose: Not Given Valacyclovir HCl (Valtrex -) 500 mg PO DAILY [facility] Last Admin: 12/01/18 09:58 Dose: 500 mg Gen: sedated, vented HEENT: PERRL, EOMI PULM: coarse crackles at the bases, no wheeze CV: S1S2, (-) murmur ABD: soft lightly distended, hypoactive BS EXT; (+) edema [employer]: sedated Laboratory Results - last 24 hr 11/30/18 11/30/18 11/30/18 16:00 16:00 16:15 WBC RBC Hgb Hct MCV MCH MCHC RDW Plt Count MPV PTT (Actin FS) 56.3 H Puncture Site ABG pH ABG pCO2 at Pt Temp ABG pO2 at Pt Temp ABG HCO3 ABG O2 Sat (Measured) ABG O2 Content ABG Base Excess Benny Test O2 Delivery Device Oxygen Flow Rate Vent Mode Vent Rate Mechanical Rate PEEP Pressure Support Vent Sodium Potassium Chloride Carbon Dioxide Anion Gap BUN Creatinine Creat Clearance w eGFR POC Glucometer Random Glucose Calcium Phosphorus Magnesium Total Bilirubin AST ALT Alkaline Phosphatase Creatine Kinase 180 Creatine Kinase Index 5.6 H Cancelled CK-MB (CK-2) 10.2 H Cancelled Troponin I 15.20 H* Total Protein Albumin Vancomycin Pre-Dose 11/30/18 11/30/18 12/01/18 17:26 21:38 05:30 WBC 5.3 RBC 3.07 L Hgb 9.0 L Hct 25.9 L MCV 84.4 MCH 29.2 MCHC 34.6 RDW 18.0 H Plt Count 206 MPV 7.2 L PTT (Actin FS) Puncture Site ABG pH ABG pCO2 at Pt Temp ABG pO2 at Pt Temp ABG HCO3 ABG O2 Sat (Measured) ABG O2 Content ABG Base Excess Benny Test O2 Delivery Device Oxygen Flow Rate Vent Mode Vent Rate Mechanical Rate PEEP Pressure Support Vent Sodium Potassium Chloride Carbon Dioxide Anion Gap BUN Creatinine Creat Clearance w eGFR POC Glucometer 182 161 Random Glucose Calcium Phosphorus Magnesium Total Bilirubin AST ALT Alkaline Phosphatase Creatine Kinase Creatine Kinase Index CK-MB (CK-2) Troponin I Total Protein Albumin Vancomycin Pre-Dose 12/01/18 12/01/18 12/01/18 05:30 05:30 05:41 WBC RBC Hgb Hct MCV MCH MCHC RDW Plt Count MPV PTT (Actin FS) 28.6 Puncture Site ABG pH ABG pCO2 at Pt Temp ABG pO2 at Pt Temp ABG HCO3 ABG O2 Sat (Measured) ABG O2 Content ABG Base Excess Benny Test O2 Delivery Device Oxygen Flow Rate Vent Mode Vent Rate Mechanical Rate PEEP Pressure Support Vent Sodium 134 L Potassium 3.9 Chloride 99 Carbon Dioxide 25 Anion Gap 10 BUN 38 H Creatinine 1.6 H Creat Clearance w eGFR 43.60 POC Glucometer 159 Random Glucose 173 H Calcium 6.7 L* Phosphorus 4.8 Magnesium 1.8 Total Bilirubin 0.5 AST 61 H ALT 42 Alkaline Phosphatase 87 Creatine Kinase Creatine Kinase Index CK-MB (CK-2) Troponin I Total Protein 5.4 L Albumin 2.2 L Vancomycin Pre-Dose 12/01/18 12/01/18 12/01/18 06:05 10:33 11:53 WBC RBC Hgb Hct MCV MCH MCHC RDW Plt Count MPV PTT (Actin FS) Puncture Site Right brachial ABG pH 7.35 ABG pCO2 at Pt Temp 45.5 H ABG pO2 at Pt Temp 166.0 H* ABG HCO3 24.5 ABG O2 Sat (Measured) 98.6 ABG O2 Content 11.4 L ABG Base Excess -0.6 Benny Test Positive O2 Delivery Device Mech vent Oxygen Flow Rate 60% Vent Mode A/c Vent Rate 24 Mechanical Rate Yes PEEP 10.0 Pressure Support Vent 450 Sodium Potassium Chloride Carbon Dioxide Anion Gap BUN Creatinine Creat Clearance w eGFR POC Glucometer 169 Random Glucose Calcium Phosphorus Magnesium Total Bilirubin AST ALT Alkaline Phosphatase Creatine Kinase Creatine Kinase Index CK-MB (CK-2) Troponin I Total Protein Albumin Vancomycin Pre-Dose 20.3 ASSESSMENT/PLAN: Acute Respiratory Failure Suspected ARDS physiology (?) methadone withdrawal CAP Suspected Acute Pulmonary Edema HTN Troponemia IIDM DARIO on CKD Methadone maintenance Sedation vacation and wean trials as tolerated Wean vent parameters ABX per ID Wean Medrol Strict I & O BD TX Follow CXR Transfusion threshold: Hgb = 8 Enteral feeds Lasix Requires ICU monitoring Dr Culver Critical care time spent in reviewing chart, evaluating patient and formulating plan - 36 minutes.
--- NOTE | 2018-12-01 14:43 | PN ---
Progress Note, Physician Chief Complaint: intubated and sedated, failed extubation. telemetry without events. History of Present Illness: The patient is a 63-year-old man, with a history of diabetes, hypertension, hyperlipidemia, peripheral vascular disease, hepatitis C, opioid abuse, on methadone, multiple myeloma, who was admitted with nausea vomiting and abdominal pain with constipation. Developed acute respiratory distress, was intubated and transferred to the ICU. Troponins found to be elevated. There were ECG changes. Echo 11/28/18 EF 45-50 global HK, mild MR, FCDAOV. CXR with volume loss, resolved congestive changes Undergoing weaning trial. Failed Extubation, now CXR shows pulm edema poss ARDS. Had coffee ground dc from [facility]GT 11/29/18 heparin stopped. - Current Medication List Current Medications: Active Medications Acetaminophen (Tylenol -) 650 mg PO Q6H PRN PRN Reason: FEVER Acetylcysteine (Mucomyst 20 Oral / Inh Use Only*) 200 mg NEB RBID [facility] Last Admin: 12/01/18 08:54 Dose: 200 mg Albuterol Sulfate (Ventolin 0.083% Nebulizer Soln -) 1 amp NEB Q4H PRN PRN Reason: SHORT OF BREATH/WHEEZING Last Admin: 12/01/18 12:28 Dose: 1 amp Allopurinol (Zyloprim -) 300 mg PO DAILY [facility] Last Admin: 12/01/18 09:58 Dose: 300 mg Aspirin (Asa -) 81 mg PO DAILY [facility] Last Admin: 12/01/18 09:58 Dose: 81 mg Atorvastatin Calcium (Lipitor -) 80 mg PO HS [facility] Last Admin: 11/30/18 23:30 Dose: Not Given Buspirone HCl (Buspar -) 15 mg PO BID [facility] Last Admin: 12/01/18 09:59 Dose: 15 mg Calcium Carbonate/Cholecalciferol (Os-Kyler 500+D -) 1 tab PO DAILY [facility] Last Admin: 12/01/18 09:58 Dose: 1 tab Chlorhexidine Gluconate (Hibiclens For Decolonization -) 1 applic TP HS [facility] Last Admin: 11/30/18 23:33 Dose: 1 applic Chlorhexidine Gluconate (Peridex -) 15 ml MM BID [facility] Last Admin: 12/01/18 09:59 Dose: 15 ml Docusate Sodium (Colace -) 100 mg PO BID PRN PRN Reason: CONSTIPATION Furosemide (Lasix Injection -) 40 mg IVPUSH BID@0600,1400 [facility] Last Admin: 12/01/18 05:35 Dose: 40 mg Gabapentin (Neurontin -) 100 mg PO TID [facility] Last Admin: 12/01/18 05:47 Dose: Not Given Heparin Sodium (Porcine) (Heparin -) 5,000 unit SQ TID [facility] Last Admin: 12/01/18 05:44 Dose: 5,000 unit Propofol (Diprivan -) 1,000,000 mcg in 100 mls @ 9.349 mls/hr IVPB TITR [facility]; Protocol Last Admin: 12/01/18 10:03 Dose: 55 mcg/kg/min, 34.278 mls/hr Piperacillin Sod/Tazobactam (Sod 4.5 gm/ Dextrose) 100 mls @ 200 mls/hr IVPB Q8H-IV [facility]; Protocol Last Admin: 12/01/18 10:00 Dose: 200 mls/hr Pantoprazole Sodium 80 mg/ (Sodium Chloride) 100 mls @ 10 mls/hr IVPB Q10H [facility] Last Admin: 12/01/18 05:27 Dose: 10 mls/hr Midazolam HCl 100 mg/ Sodium (Chloride) 100 mls @ 1 mls/hr IVPB TITR [facility]; Protocol Last Admin: 12/01/18 12:05 Dose: 1 mg/hr, 1 mls/hr Insulin Aspart (Novolog Vial Sliding Scale -) 1 vial SQ ACHS [facility]; Protocol Last Admin: 12/01/18 12:06 Dose: 2 units Insulin Detemir (Levemir Vial) 20 units SQ HS [facility] Last Admin: 11/30/18 23:09 Dose: 20 units Methadone HCl (Dolophine -) 40 mg PO DAILY@0600 [facility] Last Admin: 12/01/18 12:05 Dose: 40 mg Methylprednisolone Sodium Succinate (Solu-Medrol -) 40 mg IVPUSH BID [facility] Last Admin: 12/01/18 09:57 Dose: 40 mg Metoclopramide HCl (Reglan Injection -) 10 mg IVPUSH Q6H-IV [facility] Last Admin: 12/01/18 09:57 Dose: 10 mg Metoprolol Succinate (Toprol Xl -) 25 mg PO DAILY [facility] Last Admin: 12/01/18 09:57 Dose: 25 mg Midazolam HCl (Versed -) 2 mg IVPUSH Q4H PRN PRN Reason: AGITATION Last Admin: 11/27/18 03:58 Dose: 2 mg Polyethylene Glycol (Miralax (For Daily Use) -) 17 gm PO DAILY [facility] Last Admin: 11/30/18 10:02 Dose: Not Given Scopolamine HBr (Transderm-Scop -) 1 patch TD Q72H [facility] Last Admin: 11/28/18 22:59 Dose: 1 patch Tiotropium [place] (Spiriva Respimat) 2 puff IH DAILY [facility] Last Admin: 12/01/18 10:00 Dose: Not Given Valacyclovir HCl (Valtrex -) 500 mg PO DAILY [facility] Last Admin: 12/01/18 09:58 Dose: 500 mg - Objective Vital Signs: Vital Signs Temperature 99.9 F H 12/01/18 13:33 Pulse Rate 78 12/01/18 13:33 Respiratory Rate 22 H 12/01/18 13:33 Blood Pressure 133/68 12/01/18 13:33 O2 Sat by Pulse Oximetry (%) 100 12/01/18 11:32 Constitutional: Yes: No Distress Eyes: Yes: EOM Intact HENT: Yes: Normocephalic Neck: Yes: Trachea Midline Cardiovascular: Yes: Regular Rate and Rhythm Respiratory: Yes: Mechanically Ventilated Gastrointestinal: Yes: Soft Edema: No Labs: CBC, BMP 12/01/18 05:30 12/01/18 05:30 INR, PTT INR 1.19 (0.83-1.09) H 11/30/18 05:30 Fibrinogen > 500.0 mg/dL (238-498) H 11/25/18 20:00 Assessment/Plan The patient is a 63-year-old man, with a history of diabetes, hypertension, hyperlipidemia, peripheral vascular disease, hepatitis C, opioid abuse, on methadone, multiple myeloma, who was admitted with nausea vomiting and abdominal pain with constipation. Developed acute respiratory distress, was intubated and transferred to the ICU. Troponins found to be elevated. There were ECG changes. The patient remains intubated and sedated. Fluid overloaded. Echo is unchanged from July 2018. Continue IV lasix. Transfuse as needed, wean as per ICU team. His CXR shows pulm edema poss ARDS pattern. continue vent support and diuresis. Conservative cardiac care. He is not a candidate for cardiac cath. NM is due to demand ischemia, no change in echo, would defer cardiac workup.
--- NOTE | 2018-12-01 15:19 | PN ---
Progress Note, Physician History of Present Illness: Pt seen and examined at bedside. He remains in the ICU. He remain intubated. - Current Medication List Current Medications: Active Medications Acetaminophen (Tylenol -) 650 mg PO Q6H PRN PRN Reason: FEVER Acetylcysteine (Mucomyst 20 Oral / Inh Use Only*) 200 mg NEB RBID [facility] Last Admin: 12/01/18 08:54 Dose: 200 mg Albuterol Sulfate (Ventolin 0.083% Nebulizer Soln -) 1 amp NEB Q4H PRN PRN Reason: SHORT OF BREATH/WHEEZING Last Admin: 12/01/18 12:28 Dose: 1 amp Allopurinol (Zyloprim -) 300 mg PO DAILY [facility] Last Admin: 12/01/18 09:58 Dose: 300 mg Aspirin (Asa -) 81 mg PO DAILY [facility] Last Admin: 12/01/18 09:58 Dose: 81 mg Atorvastatin Calcium (Lipitor -) 80 mg PO HS [facility] Last Admin: 11/30/18 23:30 Dose: Not Given Buspirone HCl (Buspar -) 15 mg PO BID [facility] Last Admin: 12/01/18 09:59 Dose: 15 mg Calcium Carbonate/Cholecalciferol (Os-Kyler 500+D -) 2 tab PO DAILY [facility] Chlorhexidine Gluconate (Hibiclens For Decolonization -) 1 applic TP HS [facility] Last Admin: 11/30/18 23:33 Dose: 1 applic Chlorhexidine Gluconate (Peridex -) 15 ml MM BID [facility] Last Admin: 12/01/18 09:59 Dose: 15 ml Docusate Sodium (Colace -) 100 mg PO BID PRN PRN Reason: CONSTIPATION Furosemide (Lasix Injection -) 40 mg IVPUSH BID@0600,1400 [facility] Last Admin: 12/01/18 05:35 Dose: 40 mg Gabapentin (Neurontin -) 100 mg PO TID [facility] Last Admin: 12/01/18 05:47 Dose: Not Given Heparin Sodium (Porcine) (Heparin -) 5,000 unit SQ TID [facility] Last Admin: 12/01/18 05:44 Dose: 5,000 unit Propofol (Diprivan -) 1,000,000 mcg in 100 mls @ 9.349 mls/hr IVPB TITR [facility]; Protocol Last Admin: 12/01/18 10:03 Dose: 55 mcg/kg/min, 34.278 mls/hr Piperacillin Sod/Tazobactam (Sod 4.5 gm/ Dextrose) 100 mls @ 200 mls/hr IVPB Q8H-IV [facility]; Protocol Last Admin: 12/01/18 10:00 Dose: 200 mls/hr Pantoprazole Sodium 80 mg/ (Sodium Chloride) 100 mls @ 10 mls/hr IVPB Q10H [facility] Last Admin: 12/01/18 05:27 Dose: 10 mls/hr Midazolam HCl 100 mg/ Sodium (Chloride) 100 mls @ 1 mls/hr IVPB TITR [facility]; Protocol Last Admin: 12/01/18 12:05 Dose: 1 mg/hr, 1 mls/hr Insulin Aspart (Novolog Vial Sliding Scale -) 1 vial SQ ACHS [facility]; Protocol Last Admin: 12/01/18 12:06 Dose: 2 units Insulin Detemir (Levemir Vial) 20 units SQ HS [facility] Last Admin: 11/30/18 23:09 Dose: 20 units Methadone HCl (Dolophine -) 40 mg PO DAILY@0600 [facility] Last Admin: 12/01/18 12:05 Dose: 40 mg Methylprednisolone Sodium Succinate (Solu-Medrol -) 40 mg IVPUSH BID [facility] Last Admin: 12/01/18 09:57 Dose: 40 mg Metoclopramide HCl (Reglan Injection -) 10 mg IVPUSH Q6H-IV [facility] Last Admin: 12/01/18 09:57 Dose: 10 mg Metoprolol Succinate (Toprol Xl -) 25 mg PO DAILY [facility] Last Admin: 12/01/18 09:57 Dose: 25 mg Midazolam HCl (Versed -) 2 mg IVPUSH Q4H PRN PRN Reason: AGITATION Last Admin: 11/27/18 03:58 Dose: 2 mg Polyethylene Glycol (Miralax (For Daily Use) -) 17 gm PO DAILY [facility] Last Admin: 11/30/18 10:02 Dose: Not Given Scopolamine HBr (Transderm-Scop -) 1 patch TD Q72H [facility] Last Admin: 11/28/18 22:59 Dose: 1 patch Tiotropium [place] (Spiriva Respimat) 2 puff IH DAILY [facility] Last Admin: 12/01/18 10:00 Dose: Not Given Valacyclovir HCl (Valtrex -) 500 mg PO DAILY [facility] Last Admin: 12/01/18 09:58 Dose: 500 mg - Objective Vital Signs: Vital Signs Temperature 99.9 F H 12/01/18 13:33 Pulse Rate 78 12/01/18 13:33 Respiratory Rate 22 H 12/01/18 13:33 Blood Pressure 133/68 12/01/18 13:33 O2 Sat by Pulse Oximetry (%) 100 12/01/18 11:32 Constitutional: Yes: Calm Eyes: Yes: Conjunctiva Clear HENT: Yes: Atraumatic Neck: Yes: Supple Cardiovascular: Yes: S1, S2 Respiratory: Yes: Mechanically Ventilated Gastrointestinal: Yes: Soft, Abdomen, Obese Genitourinary: Yes: Massey Present Edema: Yes Edema: LLE: 1+, RLE: 1+ Neurological: Yes: Lethargy Labs: CBC, BMP 12/01/18 05:30 12/01/18 05:30 INR, PTT INR 1.19 (0.83-1.09) H 11/30/18 05:30 Fibrinogen > 500.0 mg/dL (238-498) H 11/25/18 20:00 - ....Imaging Chest X-ray: Report Reviewed Problem List - Problems (1) CKD (chronic kidney disease) Code(s): N18.9 - CHRONIC KIDNEY DISEASE, UNSPECIFIED (2) Constipation Code(s): K59.00 - CONSTIPATION, UNSPECIFIED Qualifiers: Constipation type: unspecified constipation type Qualified Code(s): K59.00 - Constipation, unspecified (3) Hyponatremia Code(s): E87.1 - HYPO-OSMOLALITY AND HYPONATREMIA Assessment/Plan Current Medications Generic Name Dose Route Start Last Admin Trade Name Freq PRN Reason Stop Dose Admin Acetaminophen 650 mg 11/26/18 08:54 Tylenol - PO Q6H PRN FEVER Acetylcysteine 200 mg 11/29/18 20:00 12/01/18 08:54 Mucomyst 20 Oral / Inh Use Only* NEB 200 mg RBID [facility] Administration Albuterol Sulfate 1 amp 11/29/18 21:21 12/01/18 12:28 Ventolin 0.083% Nebulizer Soln - NEB 1 amp Q4H PRN Administration SHORT OF BREATH/WHEEZING Allopurinol 300 mg 11/26/18 10:00 12/01/18 09:58 Zyloprim - PO 300 mg DAILY [facility] Administration Aspirin 81 mg 11/27/18 10:15 12/01/18 09:58 Asa - PO 81 mg DAILY [facility] Administration Atorvastatin Calcium 80 mg 11/30/18 22:00 11/30/18 23:30 Lipitor - PO Not Given HS [facility] Buspirone HCl 15 mg 11/26/18 10:00 12/01/18 09:59 Buspar - PO 15 mg BID [facility] Administration Calcium Carbonate/Cholecalciferol 2 tab 12/01/18 15:16 Os-Kyler 500+D - PO DAILY [facility] Chlorhexidine Gluconate 1 applic 11/26/18 22:00 11/30/18 23:33 Hibiclens For Decolonization - TP 1 applic HS [facility] Administration Chlorhexidine Gluconate 15 ml 11/27/18 22:00 12/01/18 09:59 Peridex - MM 15 ml BID [facility] Administration Docusate Sodium 100 mg 11/26/18 08:54 Colace - PO BID PRN CONSTIPATION Furosemide 40 mg 11/29/18 14:45 12/01/18 05:35 Lasix Injection - IVPUSH 40 mg BID@0600,1400 [facility] Administration Gabapentin 100 mg 11/26/18 14:00 12/01/18 05:47 Neurontin - PO Not Given TID [facility] Heparin Sodium (Porcine) 5,000 unit 11/30/18 22:00 12/01/18 05:44 Heparin - SQ 5,000 unit TID [facility] Administration Propofol 1,000,000 mcg in 100 mls @ 9.349 mls/hr 11/26/18 08:54 12/01/18 10: 03 Diprivan - IVPB 55 mcg/kg/min TITR [facility] 34.278 mls/hr Administration Protocol 15 MCG/KG/MIN Piperacillin Sod/Tazobactam 100 mls @ 200 mls/hr 11/28/18 18:00 12/01/18 10: 00 Sod 4.5 gm/ Dextrose IVPB 200 mls/hr Q8H-IV [facility] Administration Protocol Pantoprazole Sodium 80 mg/ 100 mls @ 10 mls/hr 11/29/18 17:30 12/01/18 05:27 Sodium Chloride IVPB 10 mls/hr Q10H [facility] Administration 8 MG/HR Midazolam HCl 100 mg/ Sodium 100 mls @ 1 mls/hr 12/01/18 11:30 12/01/18 12:05 Chloride IVPB 1 mg/hr TITR [facility] 1 mls/hr Administration Protocol 1 MG/HR Insulin Aspart 1 vial 11/26/18 11:00 12/01/18 12:06 Novolog Vial Sliding Scale - SQ 2 units ACHS [facility] Administration Protocol Insulin Detemir 20 units 11/30/18 21:42 11/30/18 23:09 Levemir Vial SQ 20 units HS [facility] Administration Methadone HCl 40 mg 12/01/18 11:45 12/01/18 12:05 Dolophine - PO 40 mg DAILY@0600 [facility] Administration Methylprednisolone Sodium Succinate 40 mg 11/28/18 11:30 12/01/18 09:57 Solu-Medrol - IVPUSH 40 mg BID [facility] Administration Metoclopramide HCl 10 mg 11/29/18 21:00 12/01/18 09:57 Reglan Injection - IVPUSH 10 mg Q6H-IV [facility] Administration Metoprolol Succinate 25 mg 11/30/18 11:30 12/01/18 09:57 Toprol Xl - PO 25 mg DAILY [facility] Administration Midazolam HCl 2 mg 11/27/18 22:47 11/27/18 03:58 Versed - IVPUSH 2 mg Q4H PRN Administration AGITATION Polyethylene Glycol 17 gm 11/27/18 12:30 11/30/18 10:02 Miralax (For Daily Use) - PO Not Given DAILY [facility] Scopolamine HBr 1 patch 11/28/18 22:45 11/28/18 22:59 Transderm-Scop - TD 1 patch Q72H [facility] Administration Tiotropium [place] 2 puff 11/26/18 10:00 12/01/18 10:00 Spiriva Respimat IH Not Given DAILY [facility] Valacyclovir HCl 500 mg 11/26/18 10:00 12/01/18 09:58 Valtrex - PO 500 mg DAILY [facility] Administration Impression 1. hyponatremia 2. CKD 3. nausea and vomiting 4. htn 5. DM 6. 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 multiple myeloma 9. anemia 10. proteinuria 11. hyperkalemia 12. resp failure Plan - cont lasix - monitor renal function - replace calcium - monitor urine output - keep net negative - vent support - cont ICU care - avoid constipation - monitor bp Dr Cates
[2018-12-01] MEDS: POLYETHYLENE GLYCOL 3350 119 GM BTL PO SCH (15:48)
--- NOTE | 2018-12-01 19:37 | PN ---
Progress Note (short form) - Note Progress Note: Patient seen and examined in icu intubated/sedated cxr --resolving congestive changes Intubtaed Cor: RSR, No murmurs, No gallops Lungs: Clear to auscultation anteriorly Abd: Soft, Normal bowel sounds, No organomegaly Ext:chronic stasis dermatitis Labs/meds reviewed A/P 63 y/o patient with multiple coorbidites, HTN, DM, PVD, ? COPD, CKD, recently diagnosed myeloma, vertebral fractures on velcade/cytoxan/dexamethasone/zometa. Admitted with severe constipation and hyponatremia. Was on golytely for constipaion Developed acute resp. distress and high BPs evening of 11/25 ? flash pulmonary edema intubated CXR-airspace opacities being diuresed weaning per pulmonary team---- ? edema+ ? MRSA pneumonia +? ARDS on vancomycin + troponins--on heparin not a candidate for agressive cardiac interventions Myeloma--on velcade/cytoxan/dex --last dose 11/18 On zometa--11/18 treatment held last week light chains decreasing slowly s/p rt to lspine and left acetabular fx will resume based on clinical course--currently on steroids discussed critical condition with patients daughter at bedside
[2018-12-02] MEDS: CHLORHEXIDINE GLUCONATE 4% CLEANSER FOR DECOLONIZATION TP SCH ×2 (00:02→21:24)
[2018-12-02] MEDS: busPIRone HCL 5 MG TABLET PO SCH ×3 (00:03→21:23)
[2018-12-02] MEDS: INSULIN (LEVEMIR) 100 UNITS/ML UNITS SQ SCH ×2 (00:04→21:29)
[2018-12-02] MEDS: INSULIN SLIDING SCALE (NOVOLOG) 1 VIAL SQ SCH ×5 (00:06→21:21)
[2018-12-02] MEDS: GABAPENTIN 100 MG CAPSULE (FP) PO SCH ×4 (00:06→21:22)
[2018-12-02] MEDS: ATORVASTATIN CA 80 MG TABLET (FP) PO SCH ×2 (00:06→21:22)
[2018-12-02] MEDS: CHLORHEXIDINE GLUCONATE 0.12% 15ML CUP MM SCH ×3 (00:07→21:22)
[2018-12-02] MEDS ORDERED: DEXTROSE 5%-WATER 100 ML IVPB ONE ×3 (00:11→18:00)
[2018-12-02] MEDS ORDERED: PIPERACILLIN/TAZOBACTAM 4.5 GM VIAL IVPB ONE ×3 (00:11→18:00)
[2018-12-02] MEDS: HEPARIN NA (PORCINE) 5,000 UNITS/ML 1ML VIAL SQ SCH ×4 (00:13→21:30)
[2018-12-02] MEDS: METOCLOPRAMIDE HCL INJECTION 10 MG/2 ML VIAL IVPUSH SCH ×6 (00:13→21:23)
[2018-12-02] MEDS: methylPREDNISolone NA SUCC 40 MG/1 ML VIAL IVPUSH SCH ×2 (00:14→09:35)
[2018-12-02] MEDS: PIPERACILLIN/TAZOB 4.5 GM 4.5 GM in DEXTROSE 5%-WATER 100 ML IVPB SCH ×3 (02:22→18:03)
[2018-12-02] MEDS: SCOPOLAMINE HYDROBROMIDE 1 PATCH PATCH.TD72 TD SCH (02:25)
[2018-12-02] MEDS: PANTOPRAZOLE SODIUM 80 MG in SODIUM CHLORIDE 100 ML IVPB SCH (02:25)
[2018-12-02] MEDS: PROPOFOL 1,000,000 MCG/100 ML VIAL IVPB SCH ×3 (02:29→09:35)
[2018-12-02 06:10] LABS: HEMATOCRIT 27.4 % (35.4-49); HEMOGLOBIN 9.6 GM/dL (11.7-16.9); MCH 30.1 pg (25.7-33.7); MEAN CELL VOLUME 86.1 fl (80-96); MEAN PLT VOLUME 6.9 fl (7.5-11.1); PLATELET COUNT 202 K/MM3 (134-434); RBC 3.18 M/mm3 (4.00-5.60); RDW 18.1 % (11.9-15.9); WHITE BLOOD COUNT 4.5 K/mm3 (4.0-10.0)
[2018-12-02] MEDS: FUROSEMIDE 40 MG/4 ML INJECTABLE VIAL IVPUSH SCH ×2 (06:31→15:22)
[2018-12-02 06:33] LABS: ARTERIAL BLD GAS O2 SATURATION 96.5 % (90-98.9); ARTERIAL BLOOD GAS BASE EXCESS 0.3 meq/l (-2-2); ARTERIAL BLOOD GAS PO2 97.7 mmHg (80-100); ARTERIAL BLOOD GAS pH 7.35 (7.35-7.45)
[2018-12-02 06:35] LABS: ALLENS TEST POSITIVE
[2018-12-02 06:35] LABS: ALBUMIN 2.2 g/dl (3.4-5.0); ALK PHOS 90 U/L (45-117); ANION GAP 8 MMOL/L (8-16); BILIRUBIN,TOTAL 0.6 mg/dL (0.2-1); BLOOD UREA NITROGEN 46 mg/dL (7-18); CHLORIDE 99 mmol/L (98-107); CO2 29 mmol/L (21-32); CREATININE 1.8 mg/dL (0.55-1.3); GLUCOSE,RANDOM 154 mg/dL (74-106); MAGNESIUM 2.1 mg/dL (1.8-2.4); PHOSPHOROUS 4.2 mg/dL (2.5-4.9); POTASSIUM 3.5 mmol/L (3.5-5.1); SGOT/AST 59 U/L (15-37); SGPT/ALT 48 U/L (13-61); SODIUM 137 mmol/L (136-145); TOT PROT 5.6 g/dl (6.4-8.2)
[2018-12-02] MEDS: METHADONE HCL 40 MG DISPERSABLE TABLET PO SCH (06:38)
[2018-12-02 06:54] LABS: CALCIUM 6.4 mg/dL (8.5-10.1)
[2018-12-02] MEDS: ACETYLCYSTEINE 20% 200MG/ML 4 ML VIAL *FOR ORAL / INH USE ONLY NEB SCH (07:40)
[2018-12-02] MEDS ORDERED: METHADONE HCL 40 MG DISPERSABLE TABLET PO ONE (08:30)
[2018-12-02] MEDS: POLYETHYLENE GLYCOL 3350 119 GM BTL PO SCH (09:34)
[2018-12-02] MEDS: ASPIRIN 81 MG CHEWABLE TABLETS PO SCH (09:34)
[2018-12-02] MEDS: CALCIUM 500MG/VIT-D 200 UNITS COMBO TABLET (FP) PO SCH (09:34)
[2018-12-02] MEDS: metoPROLOL SUCCINATE 25 MG TAB.SR.24H (FP) PO SCH (09:34)
[2018-12-02] MEDS: TIOTROPIUM BROMIDE 2.5 MCG (SPIRIVA) RESPIMAT INHALER IH SCH (09:36)
--- NOTE | 2018-12-02 09:36 | PN ---
Physical Exam: SUBJECTIVE: Patient seen and examined at bedside this morning. Overnight patient remained afebrile, sedated, mechanically ventilated. Light green drainage from NG tube. Patient did not pass bowel movement overnight, no melena or bright red blood per rectum noted. OBJECTIVE: Vital Signs Period Temp Pulse Resp BP Sys/Andre Pulse Ox Last 24 Hr 98.4 F-99.9 F 66-83 18-29 103-164/58-79 99-100 GENERAL: The patient is sedated, intubated. HEENT: Normocephalic, atraumatic. PERRL, sclera anicteric, conjunctiva clear. Neck supple without lymphadenopathy. LUNGS: Mechanical breath sounds equal, faint rales auscultated bilateral lower lobes. HEART: Regular rate and rhythm, S1, S2 without murmur, rub or gallop. ABDOMEN: Soft, nontender, nondistended, hypoactive bowel sounds. EXTREMITIES: 2+ radial, dorsalis pedis pulses bilaterally, well-perfused. No lower extremity edema. SKIN: Warm, dry. Chronic venous changes noted bilateral lower extremities. Laboratory Results - last 24 hr 11/28/18 12/01/18 12/01/18 12:20 10:33 11:53 WBC RBC Hgb Hct MCV MCH MCHC RDW Plt Count MPV PTT (Actin FS) Anticoagulation Therapy Puncture Site ABG pH ABG pCO2 at Pt Temp ABG pO2 at Pt Temp ABG HCO3 ABG O2 Sat (Measured) ABG O2 Content ABG Base Excess Benny Test O2 Delivery Device Oxygen Flow Rate Vent Mode Vent Rate Mechanical Rate PEEP Pressure Support Vent Sodium Potassium Chloride Carbon Dioxide Anion Gap BUN Creatinine Creat Clearance w eGFR POC Glucometer 169 Random Glucose Calcium Phosphorus Magnesium Total Bilirubin AST ALT Alkaline Phosphatase Total Protein Albumin Vancomycin Pre-Dose 20.3 Blood Type A POSITIVE Antibody Screen Negative Crossmatch See Detail 12/01/18 12/01/18 12/02/18 17:17 23:48 05:30 WBC RBC Hgb Hct MCV MCH MCHC RDW Plt Count MPV PTT (Actin FS) 31.9 Anticoagulation Therapy Puncture Site ABG pH ABG pCO2 at Pt Temp ABG pO2 at Pt Temp ABG HCO3 ABG O2 Sat (Measured) ABG O2 Content ABG Base Excess Benny Test O2 Delivery Device Oxygen Flow Rate Vent Mode Vent Rate Mechanical Rate PEEP Pressure Support Vent Sodium Potassium Chloride Carbon Dioxide Anion Gap BUN Creatinine Creat Clearance w eGFR POC Glucometer 177 162 Random Glucose Calcium Phosphorus Magnesium Total Bilirubin AST ALT Alkaline Phosphatase Total Protein Albumin Vancomycin Pre-Dose Blood Type Antibody Screen Crossmatch 12/02/18 12/02/18 12/02/18 05:30 05:30 06:08 WBC 4.5 RBC 3.18 L Hgb 9.6 L Hct 27.4 L MCV 86.1 MCH 30.1 MCHC 35.0 RDW 18.1 H Plt Count 202 MPV 6.9 L PTT (Actin FS) Anticoagulation Therapy Puncture Site ABG pH ABG pCO2 at Pt Temp ABG pO2 at Pt Temp ABG HCO3 ABG O2 Sat (Measured) ABG O2 Content ABG Base Excess Benny Test O2 Delivery Device Oxygen Flow Rate Vent Mode Vent Rate Mechanical Rate PEEP Pressure Support Vent Sodium 137 Potassium 3.5 Chloride 99 Carbon Dioxide 29 Anion Gap 8 BUN 46 H Creatinine 1.8 H Creat Clearance w eGFR 38.06 POC Glucometer 126 Random Glucose 154 H Calcium 6.4 L* Phosphorus 4.2 Magnesium 2.1 Total Bilirubin 0.6 AST 59 H ALT 48 Alkaline Phosphatase 90 Total Protein 5.6 L Albumin 2.2 L Vancomycin Pre-Dose Blood Type Antibody Screen Crossmatch 12/02/18 06:20 WBC RBC Hgb Hct MCV MCH MCHC RDW Plt Count MPV PTT (Actin FS) Anticoagulation Therapy No Result Required. Puncture Site Right radial ABG pH 7.35 ABG pCO2 at Pt Temp 47.0 H ABG pO2 at Pt Temp 97.7 D ABG HCO3 25.5 ABG O2 Sat (Measured) 96.5 ABG O2 Content 11.2 L ABG Base Excess 0.3 Benny Test Positive O2 Delivery Device Vent Oxygen Flow Rate 50% Vent Mode No Result Required. Vent Rate 24 Mechanical Rate No Result Required. PEEP 8.0 Pressure Support Vent No Result Required. Sodium Potassium Chloride Carbon Dioxide Anion Gap BUN Creatinine Creat Clearance w eGFR POC Glucometer Random Glucose Calcium Phosphorus Magnesium Total Bilirubin AST ALT Alkaline Phosphatase Total Protein Albumin Vancomycin Pre-Dose Blood Type Antibody Screen Crossmatch Active Medications Generic Name Dose Route Start Last Admin Trade Name Freq PRN Reason Stop Dose Admin Acetaminophen 650 mg 11/26/18 08:54 Tylenol - PO Q6H PRN FEVER Acetylcysteine 200 mg 11/29/18 20:00 12/01/18 20:02 Mucomyst 20 Oral / Inh Use Only* NEB 200 mg RBID YAKOV Administration Albuterol Sulfate 1 amp 11/29/18 21:21 12/01/18 20:03 Ventolin 0.083% Nebulizer Soln - NEB 1 amp Q4H PRN Administration SHORT OF BREATH/WHEEZING Allopurinol 300 mg 11/26/18 10:00 12/01/18 09:58 Zyloprim - PO 300 mg DAILY YAKOV Administration Aspirin 81 mg 11/27/18 10:15 12/01/18 09:58 Asa - PO 81 mg DAILY YAKOV Administration Atorvastatin Calcium 80 mg 11/30/18 22:00 12/02/18 00:06 Lipitor - PO Not Given HS YAKOV Buspirone HCl 15 mg 11/26/18 10:00 12/02/18 00:03 Buspar - PO Not Given BID [facility] Calcium Carbonate/Cholecalciferol 2 tab 12/01/18 15:16 Os-Kyler 500+D - PO DAILY [facility] Chlorhexidine Gluconate 1 applic 11/26/18 22:00 12/02/18 00:02 Hibiclens For Decolonization - TP 1 applic HS [facility] Administration Chlorhexidine Gluconate 15 ml 11/27/18 22:00 12/02/18 00:07 Peridex - MM 15 ml BID YAKOV Administration Docusate Sodium 100 mg 11/26/18 08:54 Colace - PO BID PRN CONSTIPATION Furosemide 40 mg 11/29/18 14:45 12/02/18 06:31 Lasix Injection - IVPUSH 40 mg BID@0600,1400 YAKOV Administration Gabapentin 100 mg 11/26/18 14:00 12/02/18 06:33 Neurontin - PO Not Given TID [facility] Heparin Sodium (Porcine) 5,000 unit 11/30/18 22:00 12/02/18 06:37 Heparin - SQ 5,000 unit TID [facility] Administration Propofol 1,000,000 mcg in 100 mls @ 9.349 mls/hr 11/26/18 08:54 12/02/18 06: 39 Diprivan - IVPB 55 mcg/kg/min TITR YAKOV 34.278 mls/hr Administration Protocol 15 MCG/KG/MIN Piperacillin Sod/Tazobactam 100 mls @ 200 mls/hr 11/28/18 18:00 12/02/18 02: 22 Sod 4.5 gm/ Dextrose IVPB 200 mls/hr Q8H-IV YAKOV Administration Protocol Pantoprazole Sodium 80 mg/ 100 mls @ 10 mls/hr 11/29/18 17:30 12/02/18 02:25 Sodium Chloride IVPB 10 mls/hr Q10H YAKOV Administration 8 MG/HR Midazolam HCl 100 mg/ Sodium 100 mls @ 1 mls/hr 12/01/18 11:30 12/01/18 12:05 Chloride IVPB 1 mg/hr TITR YAKOV 1 mls/hr Administration Protocol 1 MG/HR Insulin Aspart 1 vial 12/02/18 07:30 12/02/18 07:44 Novolog Vial Sliding Scale - SQ Not Given TID YAKOV Protocol Insulin Detemir 20 units 11/30/18 21:42 12/02/18 00:04 Levemir Vial SQ 20 units HS YAKOV Administration Methadone HCl 40 mg 12/01/18 11:45 12/01/18 12:05 Dolophine - PO 40 mg DAILY@0600 YAKOV Administration Methylprednisolone Sodium Succinate 40 mg 11/28/18 11:30 12/02/18 00:14 Solu-Medrol - IVPUSH 40 mg BID YAKOV Administration Metoclopramide HCl 10 mg 11/29/18 21:00 12/02/18 06:36 Reglan Injection - IVPUSH 10 mg Q6H-IV YAKOV Administration Metoprolol Succinate 25 mg 11/30/18 11:30 12/01/18 09:57 Toprol Xl - PO 25 mg DAILY YAKOV Administration Polyethylene Glycol 17 gm 11/27/18 12:30 12/01/18 15:48 Miralax (For Daily Use) - PO 17 grams DAILY YAKOV Administration Scopolamine HBr 1 patch 11/28/18 22:45 12/02/18 02:25 Transderm-Scop - TD 1 patch Q72H YAKOV Administration Tiotropium [place] 2 puff 11/26/18 10:00 12/01/18 10:00 Spiriva Respimat IH Not Given DAILY YAKOV Valacyclovir HCl 500 mg 11/26/18 10:00 12/01/18 09:58 Valtrex - PO 500 mg DAILY YAKOV Administration ASSESSMENT/PLAN: Patient is a 63 year old male with history of hypertension, hyperlipidemia, insulin dependent diabetes mellitus, peripheral vascular disease, opoid dependence, multiple myeloma, admitted to ICU for acute hypoxic respiratory failure. Neurological -Patient is sedated with Propofol. Daily sedation vacation -Methadone 40mg PO daily -Monitor for signs of mental status change Pulmonary -Acute hypoxic, hypoxemic respiratory failure -Pneumonia, +MRSA nares colonization -Ventilator settings changed today: RR 24, tidal volume 450, PEEP 8, FiO2 40%. -Chest radiograph -Vancomycin 1250mg IV daily (day #4) -Zosyn 4.5 grams Q8H (day #4) -Methylprednisone 40mg IV BID -Lasix 40mg IV BID -DuoNebs Q6H, Mucomyst nebulizer BID, Spiriva 2 puffs IH daily -Maintain oxygen saturation greater than 90% Cardiovascular -Hypertension -NSTEMI -Troponin peaked at 21.6. Discussed with Cardiology, who recommends continuing Aspirin at this time. No indication for Heparin drip -Heparin drip discontinued -Aspirin 81mg GT daily -Metoprolol 25mg GT daily -Cardiac ECHO shows EF 45-50%, mild global hypokinesis, grade I diastolic dysfunction. -Arterial doppler right upper extremity shows decreased monophasic flow within right radial and ulnar arteries. -Vascular surgery consult appreciated. No surgical intervention indicated at this time. Gastrointestinal -Constipation -History of Hepatitis C -HCV RNA PCR negative -Dark- colored emesis last evening. No episodes of emesis or bowel movements overnight. -GI consult (Dr. Up) appreciated. Likely stagnant gastric contents, secondary to diabetic gastroparesis. Less impressive for GI bleed. -Protonix 40mg IV daily -Metoclopramide 10mg IV Q6H -Monitor serial occult blood testing -NG tube clamped today. Monitor for residual output. -Maintain NPO. Endocrine -Insulin dependent diabetes mellitus -Insulin sliding scale TID -Fingerstick blood glucose monitoring TID -Gabapentin 100mg PO TID for peripheral neuropathy Hematologic -Multiple Myeloma -S/P 1 unit PRBC transfusion -Maintain Hb above 8.0 -Multiple myeloma treatment, per hematology -Hematology recommendations appreciated Renal -DARIO -improving Hypocalcemia -Repleted with Calcium Gluconate 10% -Nephrology recommendations (Dr. Cates) appreciated FEN -Fluids: No IV fluids -Electrolytes: Hypocalcemia. Follow CMP; replete as necessary. -Nutrition: NPO Prophylaxis -Heparin 5000u subq TID Disposition -Continue care in ICU. Patient is Full Code Visit type - Emergency Visit Emergency Visit: Yes ED Registration Date: 11/20/18 Care time: The patient presented to the Emergency Department on the above date and was hospitalized for further evaluation of their emergent condition. - New Patient This patient is new to me today: No - Critical Care Critical Care patient: Yes Total Critical Care Time (in minutes): 37 Critical Care Statement: The care of this patient involved high complexity decision making to prevent further life threatening deterioration of the patient 's condition and/or to evaluate & treat vital organ system(s) failure or risk of failure. - Discharge Referral Referred to [facility] No
[2018-12-02] MEDS ORDERED: PT OWN MED DRAWER 7, Y5N ONE ×4 (09:41→21:29)
[2018-12-02] MEDS: ALLOPURINOL 300 MG TABLET (FP) PO SCH (09:43)
[2018-12-02] MEDS: valACYclovir HCL 500 MG TABLET (FP) PO SCH (09:43)
[2018-12-02] MEDS ORDERED: CALCIUM GLUCONATE 10% - 1,000 MG/10 ML VIAL IVPB ONE (09:51)
[2018-12-02] MEDS: ALBUTEROL SO4 0.083% IH SOL 2.5 MG/3 ML VIAL.NEB. NEB PRN ×2 (11:45→20:17)
[2018-12-02] MEDS: PANTOPRAZOLE SODIUM 40 MG VIAL IVPUSH SCH (12:20)
--- NOTE | 2018-12-02 12:27 | PN ---
Progress Note, Physician Chief Complaint: Acute respiratory failure Constipation Pulmonary vascular congestion History of Present Illness: Pt transferred to ICU after being intubated for respiratory distress on Med surg. Remains on IV sedation. 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 by Sales And Service Change Leader+ cardiology+ ID+oncology troponins elevated, trending down - Current Medication List Current Medications: Active Medications Acetaminophen (Tylenol -) 650 mg PO Q6H PRN PRN Reason: FEVER Albuterol Sulfate (Ventolin 0.083% Nebulizer Soln -) 1 amp NEB Q4H PRN PRN Reason: SHORT OF BREATH/WHEEZING Last Admin: 12/02/18 11:45 Dose: 1 amp Allopurinol (Zyloprim -) 300 mg PO DAILY [facility] Last Admin: 12/02/18 09:43 Dose: 300 mg Aspirin (Asa -) 81 mg PO DAILY [facility] Last Admin: 12/02/18 09:34 Dose: 81 mg Atorvastatin Calcium (Lipitor -) 80 mg PO HS [facility] Last Admin: 12/02/18 00:06 Dose: Not Given Buspirone HCl (Buspar -) 15 mg PO BID [facility] Last Admin: 12/02/18 09:43 Dose: 15 mg Calcium Carbonate/Cholecalciferol (Os-Kyler 500+D -) 2 tab PO DAILY [facility] Last Admin: 12/02/18 09:34 Dose: 2 tab Chlorhexidine Gluconate (Hibiclens For Decolonization -) 1 applic TP HS [facility] Last Admin: 12/02/18 00:02 Dose: 1 applic Chlorhexidine Gluconate (Peridex -) 15 ml MM BID [facility] Last Admin: 12/02/18 09:36 Dose: 15 ml Docusate Sodium (Colace -) 100 mg PO BID PRN PRN Reason: CONSTIPATION Furosemide (Lasix Injection -) 40 mg IVPUSH BID@0600,1400 [facility] Last Admin: 12/02/18 06:31 Dose: 40 mg Gabapentin (Neurontin -) 100 mg PO TID [facility] Last Admin: 12/02/18 06:33 Dose: Not Given Heparin Sodium (Porcine) (Heparin -) 5,000 unit SQ TID [facility] Last Admin: 12/02/18 06:37 Dose: 5,000 unit Propofol (Diprivan -) 1,000,000 mcg in 100 mls @ 9.349 mls/hr IVPB TITR [facility]; Protocol Last Admin: 12/02/18 09:35 Dose: 40 mcg/kg/min, 24.93 mls/hr Piperacillin Sod/Tazobactam (Sod 4.5 gm/ Dextrose) 100 mls @ 200 mls/hr IVPB Q8H-IV [facility]; Protocol Last Admin: 12/02/18 09:34 Dose: 200 mls/hr Insulin Aspart (Novolog Vial Sliding Scale -) 1 vial SQ TID [facility]; Protocol Last Admin: 12/02/18 07:44 Dose: Not Given Insulin Detemir (Levemir Vial) 20 units SQ HS [facility] Last Admin: 12/02/18 00:04 Dose: 20 units Methadone HCl (Dolophine -) 40 mg PO DAILY@0600 [facility] Last Admin: 12/01/18 12:05 Dose: 40 mg Metoclopramide HCl (Reglan Injection -) 10 mg IVPUSH Q6H-IV [facility] Last Admin: 12/02/18 09:35 Dose: 10 mg Metoprolol Succinate (Toprol Xl -) 25 mg PO DAILY [facility] Last Admin: 12/02/18 09:34 Dose: 25 mg Pantoprazole Sodium (Protonix Iv) 40 mg IVPUSH DAILY [facility] Last Admin: 12/02/18 12:20 Dose: 40 mg Polyethylene Glycol (Miralax (For Daily Use) -) 17 gm PO DAILY [facility] Last Admin: 12/02/18 09:34 Dose: 17 grams Tiotropium [place] (Spiriva Respimat) 2 puff IH DAILY [facility] Last Admin: 12/02/18 09:36 Dose: Not Given Valacyclovir HCl (Valtrex -) 500 mg PO DAILY [facility] Last Admin: 12/02/18 09:43 Dose: 500 mg - Objective Vital Signs: Vital Signs Temperature 98.6 F 12/02/18 10:00 Pulse Rate 76 12/02/18 10:00 Respiratory Rate 24 H 12/02/18 11:45 Blood Pressure 172/88 H 12/02/18 10:00 O2 Sat by Pulse Oximetry (%) 96 12/02/18 09:49 Constitutional: Yes: Well Nourished, No Distress, Calm Cardiovascular: Yes: Regular Rate and Rhythm Respiratory: Yes: Mechanically Ventilated Gastrointestinal: Yes: Normal Bowel Sounds, Soft, Abdomen, Obese Genitourinary: Yes: Mas[place] Present Musculoskeletal: Yes: Other (sedated) Edema: No Peripheral Pulses WNL: Yes Neurological: Yes: Other (sedated) Labs: CBC, BMP 12/02/18 05:30 12/02/18 05:30 INR, PTT INR 1.19 (0.83-1.09) H 11/30/18 05:30 Fibrinogen > 500.0 mg/dL (238-498) H 11/25/18 20:00 Problem List - Problems (1) Anemia Assessment/Plan: -guaiac negative, would repeat -H/H trend stable -check Iron, thyroid profile, B12, FA -monitor trend -Guaiac positive Code(s): D64.9 - ANEMIA, UNSPECIFIED (2) CKD (chronic kidney disease) Assessment/Plan: -improved -nephrology on board -monitor trend Code(s): N18.9 - CHRONIC KIDNEY DISEASE, UNSPECIFIED (3) Diabetes Assessment/Plan: -bgm ac hs -Check A1c -Insulin: Novolog+Levemir -RD on board -endocrinology consult Code(s): E11.9 - TYPE 2 DIABETES MELLITUS WITHOUT COMPLICATIONS Qualifiers: Diabetes mellitus type: type 2 (4) Elevated troponin Assessment/Plan: monitor trend -EKG unchanged -cardiology -cardiac monitoring -heparin drip -Echo Code(s): R74.8 - ABNORMAL LEVELS OF OTHER SERUM ENZYMES (5) Multiple myeloma Assessment/Plan: -Oncology on board Code(s): C90.00 - MULTIPLE MYELOMA NOT HAVING ACHIEVED REMISSION (6) Pulmonary congestion Assessment/Plan: -Furosemide 40 mg IVP daily -serial CXR -Cardiology+Pulmonary on board Code(s): R09.89 - OTH SYMPTOMS AND SIGNS INVOLVING THE CIRC AND RESP SYSTEMS (7) Respiratory failure Assessment/Plan: -mechanical vent -pulmonary consult -bronchodilators -r/o HCAP -IV abx -ID on board Code(s): J96.90 - RESPIRATORY FAILURE, UNSP, UNSP W HYPOXIA OR HYPERCAPNIA Assessment/Plan see problem list
--- NOTE | 2018-12-02 12:47 | PN ---
Teaching Attending Note Name of Resident: Tarun Guzmán ATTENDING PHYSICIAN STATEMENT I saw and evaluated the patient. I reviewed the resident's note and discussed the case with the resident. I agree with the resident's findings and plan as documented. SUBJECTIVE: Patient seen and examined in the ICU. Remains intubated and sedated. AC mode of vent, 40% and PEEP 8. CXR: some increase in bilateral pulmonary vascular congestion Intake & Output 11/29/18 11/30/18 12/01/18 12/02/18 23:59 23:59 23:59 23:59 Intake Total 2759.8 2545.8 1420 364 Output Total 2100 2400 2800 1300 Balance 659.8 145.8 -1380 -936 Weight 229 lb 1.6 oz 230 lb 3.2 oz 225 lb 2 oz Last Vital Signs Temp Pulse Resp BP Pulse Ox 98.6 F 74 18 171/87 H 96 12/02/18 10:00 12/02/18 12:00 12/02/18 12:00 12/02/18 12:00 12/02/18 09:49 Active Medications Acetaminophen (Tylenol -) 650 mg PO Q6H PRN PRN Reason: FEVER Albuterol Sulfate (Ventolin 0.083% Nebulizer Soln -) 1 amp NEB Q4H PRN PRN Reason: SHORT OF BREATH/WHEEZING Last Admin: 12/02/18 11:45 Dose: 1 amp Allopurinol (Zyloprim -) 300 mg PO DAILY [facility] Last Admin: 12/02/18 09:43 Dose: 300 mg Aspirin (Asa -) 81 mg PO DAILY [facility] Last Admin: 12/02/18 09:34 Dose: 81 mg Atorvastatin Calcium (Lipitor -) 80 mg PO [facility] Last Admin: 12/02/18 00:06 Dose: Not Given Buspirone HCl (Buspar -) 15 mg PO BID [facility] Last Admin: 12/02/18 09:43 Dose: 15 mg Calcium Carbonate/Cholecalciferol (Os-Kyler 500+D -) 2 tab PO DAILY [facility] Last Admin: 12/02/18 09:34 Dose: 2 tab Chlorhexidine Gluconate (Hibiclens For Decolonization -) 1 applic TP [facility] Last Admin: 12/02/18 00:02 Dose: 1 applic Chlorhexidine Gluconate (Peridex -) 15 ml MM BID [facility] Last Admin: 12/02/18 09:36 Dose: 15 ml Docusate Sodium (Colace -) 100 mg PO BID PRN PRN Reason: CONSTIPATION Furosemide (Lasix Injection -) 40 mg IVPUSH BID@0600,1400 [facility] Last Admin: 12/02/18 06:31 Dose: 40 mg Gabapentin (Neurontin -) 100 mg PO TID [facility] Last Admin: 12/02/18 06:33 Dose: Not Given Heparin Sodium (Porcine) (Heparin -) 5,000 unit SQ TID [facility] Last Admin: 12/02/18 06:37 Dose: 5,000 unit Propofol (Diprivan -) 1,000,000 mcg in 100 mls @ 9.349 mls/hr IVPB TITR [facility]; Protocol Last Admin: 12/02/18 09:35 Dose: 40 mcg/kg/min, 24.93 mls/hr Piperacillin Sod/Tazobactam (Sod 4.5 gm/ Dextrose) 100 mls @ 200 mls/hr IVPB Q8H-IV [facility]; Protocol Last Admin: 12/02/18 09:34 Dose: 200 mls/hr Insulin Aspart (Novolog Vial Sliding Scale -) 1 vial SQ TID [facility]; Protocol Last Admin: 12/02/18 07:44 Dose: Not Given Insulin Detemir (Levemir Vial) 20 units SQ HS [facility] Last Admin: 12/02/18 00:04 Dose: 20 units Methadone HCl (Dolophine -) 40 mg PO DAILY@0600 [facility] Last Admin: 12/01/18 12:05 Dose: 40 mg Metoclopramide HCl (Reglan Injection -) 10 mg IVPUSH Q6H-IV [facility] Last Admin: 12/02/18 09:35 Dose: 10 mg Metoprolol Succinate (Toprol Xl -) 25 mg PO DAILY [facility] Last Admin: 12/02/18 09:34 Dose: 25 mg Pantoprazole Sodium (Protonix Iv) 40 mg IVPUSH DAILY [facility] Last Admin: 12/02/18 12:20 Dose: 40 mg Polyethylene Glycol (Miralax (For Daily Use) -) 17 gm PO DAILY [facility] Last Admin: 12/02/18 09:34 Dose: 17 grams Tiotropium [place] (Spiriva Respimat) 2 puff IH DAILY [facility] Last Admin: 12/02/18 09:36 Dose: Not Given Valacyclovir HCl (Valtrex -) 500 mg PO DAILY [facility] Last Admin: 12/02/18 09:43 Dose: 500 mg Gen: sedated, vented HEENT: PERRL, EOMI PULM: coarse crackles at the bases, no wheeze CV: S1S2, (-) murmur ABD: soft lightly distended, hypoactive BS EXT; (+) edema PIE CUTTER: 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 Laboratory Results - last 24 hr 11/28/18 12/01/18 12/01/18 12:20 17:17 23:48 WBC RBC Hgb Hct MCV MCH MCHC RDW Plt Count MPV PTT (Actin FS) Anticoagulation Therapy Puncture Site ABG pH ABG pCO2 at Pt Temp ABG pO2 at Pt Temp ABG HCO3 ABG O2 Sat (Measured) ABG O2 Content ABG Base Excess Benny Test O2 Delivery Device Oxygen Flow Rate Vent Mode Vent Rate Mechanical Rate PEEP Pressure Support Vent Sodium Potassium Chloride Carbon Dioxide Anion Gap BUN Creatinine Creat Clearance w eGFR POC Glucometer 177 162 Random Glucose Calcium Phosphorus Magnesium Total Bilirubin AST ALT Alkaline Phosphatase Total Protein Albumin Vancomycin Pre-Dose Blood Type A POSITIVE Antibody Screen Negative Crossmatch See Detail 12/02/18 12/02/18 12/02/18 05:30 05:30 05:30 WBC 4.5 RBC 3.18 L Hgb 9.6 L Hct 27.4 L MCV 86.1 MCH 30.1 MCHC 35.0 RDW 18.1 H Plt Count 202 MPV 6.9 L PTT (Actin FS) 31.9 Anticoagulation Therapy Puncture Site ABG pH ABG pCO2 at Pt Temp ABG pO2 at Pt Temp ABG HCO3 ABG O2 Sat (Measured) ABG O2 Content ABG Base Excess Benny Test O2 Delivery Device Oxygen Flow Rate Vent Mode Vent Rate Mechanical Rate PEEP Pressure Support Vent Sodium 137 Potassium 3.5 Chloride 99 Carbon Dioxide 29 Anion Gap 8 BUN 46 H Creatinine 1.8 H Creat Clearance w eGFR 38.06 POC Glucometer Random Glucose 154 H Calcium 6.4 L* Phosphorus 4.2 Magnesium 2.1 Total Bilirubin 0.6 AST 59 H ALT 48 Alkaline Phosphatase 90 Total Protein 5.6 L Albumin 2.2 L Vancomycin Pre-Dose Blood Type Antibody Screen Crossmatch 12/02/18 12/02/18 12/02/18 06:08 06:20 09:00 WBC RBC Hgb Hct MCV MCH MCHC RDW Plt Count MPV PTT (Actin FS) Anticoagulation Therapy No Result Required. Puncture Site Right radial ABG pH 7.35 ABG pCO2 at Pt Temp 47.0 H ABG pO2 at Pt Temp 97.7 D ABG HCO3 25.5 ABG O2 Sat (Measured) 96.5 ABG O2 Content 11.2 L ABG Base Excess 0.3 Benny Test Positive O2 Delivery Device Vent Oxygen Flow Rate 50% Vent Mode No Result Required. Vent Rate 24 Mechanical Rate No Result Required. PEEP 8.0 Pressure Support Vent No Result Required. Sodium Potassium Chloride Carbon Dioxide Anion Gap BUN Creatinine Creat Clearance w eGFR POC Glucometer 126 Random Glucose Calcium Phosphorus Magnesium Total Bilirubin AST ALT Alkaline Phosphatase Total Protein Albumin Vancomycin Pre-Dose 20.6 Blood Type Antibody Screen Crossmatch 12/02/18 12:33 WBC RBC Hgb Hct MCV MCH MCHC RDW Plt Count MPV PTT (Actin FS) Anticoagulation Therapy Puncture Site ABG pH ABG pCO2 at Pt Temp ABG pO2 at Pt Temp ABG HCO3 ABG O2 Sat (Measured) ABG O2 Content ABG Base Excess Benny Test O2 Delivery Device Oxygen Flow Rate Vent Mode Vent Rate Mechanical Rate PEEP Pressure Support Vent Sodium Potassium Chloride Carbon Dioxide Anion Gap BUN Creatinine Creat Clearance w eGFR POC Glucometer 136 Random Glucose Calcium Phosphorus Magnesium Total Bilirubin AST ALT Alkaline Phosphatase Total Protein Albumin Vancomycin Pre-Dose Blood Type Antibody Screen Crossmatch ASSESSMENT/PLAN: Acute Respiratory Failure Suspected ARDS physiology (?) methadone withdrawal CAP Suspected Acute Pulmonary Edema HTN Troponemia IIDM DARIO on CKD Methadone maintenance Sedation vacation and wean trials as tolerated: hope to extubate in the next 1 to 2 days once volume status is improved. Wean vent parameters ABX per ID D/C Medrol Strict I & O BD TX Follow CXR Transfusion threshold: Hgb = 8 Enteral feeds Lasix BID Requires ICU monitoring Dr Culevr Critical care time spent in reviewing chart, evaluating patient and formulating plan - 36 minutes.
--- NOTE | 2018-12-02 13:51 | PN ---
Progress Note (short form) - Note Progress Note: awake off sedation remains intubated fi02 40% Vital Signs Period Temp Pulse Resp BP Sys/Andre Pulse Ox Last 24 Hr 98.2 F-99.9 F 66-83 18-29 103-172/58-88 96-99 cor-rrr lungs decreased bs at bases abd soft,nt ext no edema +sykes CBC, BMP 12/02/18 05:30 12/02/18 05:30 Microbiology 11/25/18 20:10 Blood - Peripheral Venous Blood Culture - Final NO GROWTH AFTER 5 DAYS INCUBATION 11/25/18 20:00 Blood - Peripheral Venous Blood Culture - Final NO GROWTH AFTER 5 DAYS INCUBATION 11/28/18 10:40 Sputum - Endotrachea Suction/Ventilator Gram Stain - Final 11/28/18 10:40 Sputum - Endotrachea Suction/Ventilator Sputum Culture - Final S Aureus 11/25/18 20:10 Urine - Urine Sykes Urine Culture - Final NO GROWTH OBTAINED 11/26/18 13:20 Urine For Antigen Detection Legionella Antigen - Final 11/26/18 13:20 Urine For Antigen Detection Streptococcus pneumoniae Antigen (M - Final 11/20/18 08:11 Urine - Urine Clean Catch Urine Culture - Final NO GROWTH OBTAINED vanco trough 20 a/p respiratory failure left lung pneumonia sputum with MRSA clinically improving better oxygenation multiple myeloma/vertebral fractures renal insufficiency- coffee ground emesis- hemoglobin stable +troponins-cardiology f/u noted vancomycin/zosyn- day #7 antibioitcs d/c zosyn in am (7 days) continue vancomycin by levels d/w daughter at bedside
--- NOTE | 2018-12-02 15:07 | PN ---
Progress Note, Physician Chief Complaint: intubated and but responsive on vent. failed extubation. telemetry without events. History of Present Illness: The patient is a 63-year-old man, with a history of diabetes, hypertension, hyperlipidemia, peripheral vascular disease, hepatitis C, opioid abuse, on methadone, multiple myeloma, who was admitted with nausea vomiting and abdominal pain with constipation. Developed acute respiratory distress, was intubated and transferred to the ICU. Troponins found to be elevated. There were ECG changes. Echo 11/28/18 EF 45-50 global HK, mild MR, FCDAOV. CXR with volume loss, resolved congestive changes Undergoing weaning trial. Failed Extubation, now CXR shows pulm edema poss ARDS. Had coffee ground dc from [facility] 11/29/18 heparin stopped. Being treated for fluid overload, methadone withdrawl, sepsis. - Current Medication List Current Medications: Active Medications Acetaminophen (Tylenol -) 650 mg PO Q6H PRN PRN Reason: FEVER Albuterol Sulfate (Ventolin 0.083% Nebulizer Soln -) 1 amp NEB Q4H PRN PRN Reason: SHORT OF BREATH/WHEEZING Last Admin: 12/02/18 11:45 Dose: 1 amp Allopurinol (Zyloprim -) 300 mg PO DAILY [facility] Last Admin: 12/02/18 09:43 Dose: 300 mg Aspirin (Asa -) 81 mg PO DAILY [facility] Last Admin: 12/02/18 09:34 Dose: 81 mg Atorvastatin Calcium (Lipitor -) 80 mg PO HS [facility] Last Admin: 12/02/18 00:06 Dose: Not Given Buspirone HCl (Buspar -) 15 mg PO BID [facility] Last Admin: 12/02/18 09:43 Dose: 15 mg Calcium Carbonate/Cholecalciferol (Os-Kyler 500+D -) 2 tab PO DAILY [facility] Last Admin: 12/02/18 09:34 Dose: 2 tab Chlorhexidine Gluconate (Hibiclens For Decolonization -) 1 applic TP HS [facility] Last Admin: 12/02/18 00:02 Dose: 1 applic Chlorhexidine Gluconate (Peridex -) 15 ml MM BID [facility] Last Admin: 12/02/18 09:36 Dose: 15 ml Docusate Sodium (Colace -) 100 mg PO BID PRN PRN Reason: CONSTIPATION Furosemide (Lasix Injection -) 40 mg IVPUSH BID@0600,1400 [facility] Last Admin: 12/02/18 06:31 Dose: 40 mg Gabapentin (Neurontin -) 100 mg PO TID [facility] Last Admin: 12/02/18 06:33 Dose: Not Given Heparin Sodium (Porcine) (Heparin -) 5,000 unit SQ TID [facility] Last Admin: 12/02/18 06:37 Dose: 5,000 unit Propofol (Diprivan -) 1,000,000 mcg in 100 mls @ 9.349 mls/hr IVPB TITR [facility]; Protocol Last Admin: 12/02/18 09:35 Dose: 40 mcg/kg/min, 24.93 mls/hr Piperacillin Sod/Tazobactam (Sod 4.5 gm/ Dextrose) 100 mls @ 200 mls/hr IVPB Q8H-IV [facility]; Protocol Last Admin: 12/02/18 09:34 Dose: 200 mls/hr Insulin Aspart (Novolog Vial Sliding Scale -) 1 vial SQ TID [facility]; Protocol Last Admin: 12/02/18 07:44 Dose: Not Given Insulin Detemir (Levemir Vial) 20 units SQ HS [facility] Last Admin: 12/02/18 00:04 Dose: 20 units Methadone HCl (Dolophine -) 40 mg PO DAILY@0600 [facility] Last Admin: 12/01/18 12:05 Dose: 40 mg Metoclopramide HCl (Reglan Injection -) 10 mg IVPUSH Q6H-IV [facility] Last Admin: 12/02/18 09:35 Dose: 10 mg Metoprolol Succinate (Toprol Xl -) 25 mg PO DAILY [facility] Last Admin: 12/02/18 09:34 Dose: 25 mg Nifedipine (Procardia Xl -) 30 mg PO DAILY [facility] Pantoprazole Sodium (Protonix Iv) 40 mg IVPUSH DAILY [facility] Last Admin: 12/02/18 12:20 Dose: 40 mg Polyethylene Glycol (Miralax (For Daily Use) -) 17 gm PO DAILY [facility] Last Admin: 12/02/18 09:34 Dose: 17 grams Tiotropium [place] (Spiriva Respimat) 2 puff IH DAILY [facility] Last Admin: 12/02/18 09:36 Dose: Not Given Valacyclovir HCl (Valtrex -) 500 mg PO DAILY [facility] Last Admin: 12/02/18 09:43 Dose: 500 mg - Objective Vital Signs: Vital Signs Temperature 98.2 F 12/02/18 13:41 Pulse Rate 74 12/02/18 13:41 Respiratory Rate 19 12/02/18 14:47 Blood Pressure 163/77 12/02/18 13:41 O2 Sat by Pulse Oximetry (%) 96 12/02/18 14:47 Constitutional: Yes: No Distress Eyes: Yes: EOM Intact HENT: Yes: Normocephalic Neck: Yes: Trachea Midline Cardiovascular: Yes: Regular Rate and Rhythm Respiratory: Yes: Mechanically Ventilated Gastrointestinal: Yes: Normal Bowel Sounds Extremities: Yes: WNL Edema: No Labs: CBC, BMP 12/02/18 05:30 12/02/18 05:30 INR, PTT INR 1.19 (0.83-1.09) H 11/30/18 05:30 Fibrinogen > 500.0 mg/dL (238-498) H 11/25/18 20:00 Assessment/Plan The patient is a 63-year-old man, with a history of diabetes, hypertension, hyperlipidemia, peripheral vascular disease, hepatitis C, opioid abuse, on methadone, multiple myeloma, who was admitted with nausea vomiting and abdominal pain with constipation. Developed acute respiratory distress, was intubated and transferred to the ICU. Troponins found to be elevated. There were ECG changes. The patient remains intubated and sedated. Fluid overloaded. Echo is unchanged from July 2018. Continue IV lasix. Transfuse as needed, wean as per ICU team. His CXR shows pulm edema poss ARDS pattern. continue vent support and diuresis. Conservative cardiac care. He is not a candidate for cardiac cath. UT is due to demand ischemia, no change in echo, would defer cardiac workup. Prognosis remains guarded.
[2018-12-02] MEDS ORDERED: PROPOFOL 1,000,000 MCG/100 ML VIAL ONE (16:05)
[2018-12-02] MEDS: NIFEdipine E.R. 30 MG TABLET (FP) PO SCH (16:15)
--- NOTE | 2018-12-02 16:43 | PN ---
Progress Note, Physician History of Present Illness: Pt seen and examined at bedside. He remains in the ICU. He remains intubated. - Current Medication List Current Medications: Active Medications Acetaminophen (Tylenol -) 650 mg PO Q6H PRN PRN Reason: FEVER Albuterol Sulfate (Ventolin 0.083% Nebulizer Soln -) 1 amp NEB Q4H PRN PRN Reason: SHORT OF BREATH/WHEEZING Last Admin: 12/02/18 11:45 Dose: 1 amp Allopurinol (Zyloprim -) 300 mg PO DAILY [facility] Last Admin: 12/02/18 09:43 Dose: 300 mg Aspirin (Asa -) 81 mg PO DAILY [facility] Last Admin: 12/02/18 09:34 Dose: 81 mg Atorvastatin Calcium (Lipitor -) 80 mg PO HS [facility] Last Admin: 12/02/18 00:06 Dose: Not Given Buspirone HCl (Buspar -) 15 mg PO BID [facility] Last Admin: 12/02/18 09:43 Dose: 15 mg Calcium Carbonate/Cholecalciferol (Os-Kyler 500+D -) 2 tab PO DAILY [facility] Last Admin: 12/02/18 09:34 Dose: 2 tab Chlorhexidine Gluconate (Hibiclens For Decolonization -) 1 applic TP HS [facility] Last Admin: 12/02/18 00:02 Dose: 1 applic Chlorhexidine Gluconate (Peridex -) 15 ml MM BID [facility] Last Admin: 12/02/18 09:36 Dose: 15 ml Docusate Sodium (Colace -) 100 mg PO BID PRN PRN Reason: CONSTIPATION Furosemide (Lasix Injection -) 40 mg IVPUSH BID@0600,1400 [facility] Last Admin: 12/02/18 15:22 Dose: 40 mg Gabapentin (Neurontin -) 100 mg PO TID [facility] Last Admin: 12/02/18 15:22 Dose: 100 mg Heparin Sodium (Porcine) (Heparin -) 5,000 unit SQ TID [facility] Last Admin: 12/02/18 15:22 Dose: 5,000 unit Propofol (Diprivan -) 1,000,000 mcg in 100 mls @ 9.349 mls/hr IVPB TITR [facility]; Protocol Last Admin: 12/02/18 09:35 Dose: 40 mcg/kg/min, 24.93 mls/hr Piperacillin Sod/Tazobactam (Sod 4.5 gm/ Dextrose) 100 mls @ 200 mls/hr IVPB Q8H-IV [facility]; Protocol Last Admin: 12/02/18 09:34 Dose: 200 mls/hr Insulin Aspart (Novolog Vial Sliding Scale -) 1 vial SQ TID [facility]; Protocol Last Admin: 12/02/18 15:22 Dose: Not Given Insulin Detemir (Levemir Vial) 20 units SQ HS [facility] Last Admin: 12/02/18 00:04 Dose: 20 units Methadone HCl (Dolophine -) 40 mg PO DAILY@0600 [facility] Last Admin: 12/01/18 12:05 Dose: 40 mg Metoclopramide HCl (Reglan Injection -) 10 mg IVPUSH Q6H-IV [facility] Last Admin: 12/02/18 15:21 Dose: 10 mg Metoprolol Succinate (Toprol Xl -) 25 mg PO DAILY [facility] Last Admin: 12/02/18 09:34 Dose: 25 mg Nifedipine (Procardia Xl -) 30 mg PO DAILY [facility] Last Admin: 12/02/18 16:15 Dose: Not Given Pantoprazole Sodium (Protonix Iv) 40 mg IVPUSH DAILY [facility] Last Admin: 12/02/18 12:20 Dose: 40 mg Polyethylene Glycol (Miralax (For Daily Use) -) 17 gm PO DAILY [facility] Last Admin: 12/02/18 09:34 Dose: 17 grams Tiotropium [place] (Spiriva Respimat) 2 puff IH DAILY [facility] Last Admin: 12/02/18 09:36 Dose: Not Given Valacyclovir HCl (Valtrex -) 500 mg PO DAILY [facility] Last Admin: 12/02/18 09:43 Dose: 500 mg - Objective Vital Signs: Vital Signs Temperature 98.2 F 12/02/18 13:41 Pulse Rate 74 12/02/18 16:11 Respiratory Rate 17 12/02/18 16:11 Blood Pressure 125/56 L 12/02/18 16:11 O2 Sat by Pulse Oximetry (%) 96 12/02/18 14:47 Constitutional: Yes: Calm Eyes: Yes: Conjunctiva Clear Cardiovascular: Yes: S1, S2 Respiratory: Yes: Mechanically Ventilated Gastrointestinal: Yes: Soft, Abdomen, Obese Genitourinary: Yes: Massey Present Edema: Yes (improved) Edema: LLE: Trace, RLE: Trace Neurological: Yes: Lethargy Labs: CBC, BMP 12/02/18 05:30 12/02/18 05:30 INR, PTT INR 1.19 (0.83-1.09) H 11/30/18 05:30 Fibrinogen > 500.0 mg/dL (238-498) H 11/25/18 20:00 - ....Imaging Chest X-ray: Report Reviewed Problem List - Problems (1) CKD (chronic kidney disease) Code(s): N18.9 - CHRONIC KIDNEY DISEASE, UNSPECIFIED (2) Constipation Code(s): K59.00 - CONSTIPATION, UNSPECIFIED Qualifiers: Constipation type: unspecified constipation type Qualified Code(s): K59.00 - Constipation, unspecified (3) Hyponatremia Code(s): E87.1 - HYPO-OSMOLALITY AND HYPONATREMIA Assessment/Plan Current Medications Generic Name Dose Route Start Last Admin Trade Name Freq PRN Reason Stop Dose Admin Acetaminophen 650 mg 11/26/18 08:54 Tylenol - PO Q6H PRN FEVER Albuterol Sulfate 1 amp 11/29/18 21:21 12/02/18 11:45 Ventolin 0.083% Nebulizer Soln - NEB 1 amp Q4H PRN Administration SHORT OF BREATH/WHEEZING Allopurinol 300 mg 11/26/18 10:00 12/02/18 09:43 Zyloprim - PO 300 mg DAILY [facility] Administration Aspirin 81 mg 11/27/18 10:15 12/02/18 09:34 Asa - PO 81 mg DAILY [facility] Administration Atorvastatin Calcium 80 mg 11/30/18 22:00 12/02/18 00:06 Lipitor - PO Not Given HS [facility] Buspirone HCl 15 mg 11/26/18 10:00 12/02/18 09:43 Buspar - PO 15 mg BID [facility] Administration Calcium Carbonate/Cholecalciferol 2 tab 12/01/18 15:16 12/02/18 09:34 Os-Kyler 500+D - PO 2 tab DAILY [facility] Administration Chlorhexidine Gluconate 1 applic 11/26/18 22:00 12/02/18 00:02 Hibiclens For Decolonization - TP 1 applic HS [facility] Administration Chlorhexidine Gluconate 15 ml 11/27/18 22:00 12/02/18 09:36 Peridex - MM 15 ml BID [facility] Administration Docusate Sodium 100 mg 11/26/18 08:54 Colace - PO BID PRN CONSTIPATION Furosemide 40 mg 11/29/18 14:45 12/02/18 15:22 Lasix Injection - IVPUSH 40 mg BID@0600,1400 [facility] Administration Gabapentin 100 mg 11/26/18 14:00 12/02/18 15:22 Neurontin - PO 100 mg TID [facility] Administration Heparin Sodium (Porcine) 5,000 unit 11/30/18 22:00 12/02/18 15:22 Heparin - SQ 5,000 unit TID [facility] Administration Propofol 1,000,000 mcg in 100 mls @ 9.349 mls/hr 11/26/18 08:54 12/02/18 09: 35 Diprivan - IVPB 40 mcg/kg/min TITR [facility] 24.93 mls/hr Administration Protocol 15 MCG/KG/MIN Piperacillin Sod/Tazobactam 100 mls @ 200 mls/hr 11/28/18 18:00 12/02/18 09: 34 Sod 4.5 gm/ Dextrose IVPB 200 mls/hr Q8H-IV [facility] Administration Protocol Insulin Aspart 1 vial 12/02/18 07:30 12/02/18 15:22 Novolog Vial Sliding Scale - SQ Not Given TID [facility] Protocol Insulin Detemir 20 units 11/30/18 21:42 12/02/18 00:04 Levemir Vial SQ 20 units HS [facility] Administration Methadone HCl 40 mg 12/01/18 11:45 12/01/18 12:05 Dolophine - PO 40 mg DAILY@0600 [facility] Administration Metoclopramide HCl 10 mg 11/29/18 21:00 12/02/18 15:21 Reglan Injection - IVPUSH 10 mg Q6H-IV [facility] Administration Metoprolol Succinate 25 mg 11/30/18 11:30 12/02/18 09:34 Toprol Xl - PO 25 mg DAILY [facility] Administration Nifedipine 30 mg 12/02/18 14:15 12/02/18 16:15 Procardia Xl - PO Not Given DAILY [facility] Pantoprazole Sodium 40 mg 12/02/18 11:45 12/02/18 12:20 Protonix Iv IVPUSH 40 mg DAILY [facility] Administration Polyethylene Glycol 17 gm 11/27/18 12:30 12/02/18 09:34 Miralax (For Daily Use) - PO 17 grams DAILY [facility] Administration Tiotropium [place] 2 puff 11/26/18 10:00 12/02/18 09:36 Spiriva Respimat IH Not Given DAILY [facility] Valacyclovir HCl 500 mg 11/26/18 10:00 12/02/18 09:43 Valtrex - PO 500 mg DAILY [facility] Administration Impression 1. hyponatremia 2. CKD 3. nausea and vomiting 4. htn 5. DM 6. 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 multiple myeloma 9. anemia 10. proteinuria 11. hyperkalemia 12. resp failure Plan - volume status is improving - cont with lasix, can change to daily in next 24 to 48 hrs - repeat cxr in am - cont calcium supplements - keep net negative - vent support - cont ICU care Dr Cates
--- NOTE | 2018-12-02 17:39 | PN ---
Progress Note (short form) - Note Progress Note: Patient seen and examined in icu undergoing weaning trial Intubtaed Cor: RSR, No murmurs, No gallops Lungs: Clear to auscultation anteriorly Abd: Soft, Normal bowel sounds, No organomegaly Ext:chronic stasis dermatitis Labs/meds reviewed A/P 63 y/o patient with multiple coorbidites, HTN, DM, PVD, ? COPD, CKD, recently diagnosed myeloma, vertebral fractures on velcade/cytoxan/dexamethasone/zometa. Admitted with severe constipation and hyponatremia. Was on golytely for constipaion Developed acute resp. distress and high BPs evening of 11/25 ? flash pulmonary edema intubated CXR-airspace opacities diuresed weaning trials per pulmonary team---- ? edema+ ? MRSA pneumonia +/-? ARDS on vancomycin + troponins--on heparin not a candidate for agressive cardiac interventions Myeloma--on velcade/cytoxan/dex --last dose 11/18 On zometa--11/18 treatment held last week light chains decreasing slowly s/p rt to lspine and left acetabular fx will resume based on clinical course--currently on steroids discussed critical condition with patients daughter at bedside
--- NOTE | 2018-12-02 21:01 | PN ---
GI Progress Note Subjective: GI NOte: After small gastric residuals were found feedings have been successfully resumed. Situation discussed with family at the bedside - Objective Vital Signs: Vital Signs Temperature 101.6 F H 12/02/18 18:00 Pulse Rate 78 12/02/18 18:00 Respiratory Rate 18 12/02/18 18:29 Blood Pressure 122/58 L 12/02/18 18:00 O2 Sat by Pulse Oximetry (%) 96 12/02/18 14:47 Constitutional: Other (intubated) ...Auscultate: Yes: Hypoactive Bowel Sounds ...Palpate: Yes: Soft ...Percussion: Yes: Tympanitic Labs: CBC, BMP 12/02/18 05:30 12/02/18 05:30 INR, PTT INR 1.19 (0.83-1.09) H 11/30/18 05:30 Fibrinogen > 500.0 mg/dL (238-498) H 11/25/18 20:00 Assessment/Plan Impression; Diabetic gastroparesis Diabetic neuropathy, narcotics, sedentary state and ? chemotherapy inhibiting bowel function History of hepatitis C Plan: Agree with feedings Reglan IVPB I discussed the situation with the daughters and ICU resident Problem List - Problems (1) Diabetic gastroparesis Code(s): E11.43 - TYPE 2 DIABETES W DIABETIC AUTONOMIC (POLY)NEUROPATHY; K31.84 - GASTROPARESIS (2) Constipation Code(s): K59.00 - CONSTIPATION, UNSPECIFIED Qualifiers: Constipation type: unspecified constipation type Qualified Code(s): K59.00 - Constipation, unspecified (3) Narcotic dependence Code(s): F11.20 - OPIOID DEPENDENCE, UNCOMPLICATED (4) Multiple myeloma Code(s): C90.00 - MULTIPLE MYELOMA NOT HAVING ACHIEVED REMISSION (5) Vertebral compression fracture Code(s): M48.50XA - COLLAPSED VERTEBRA, NEC, SITE UNSP, INIT (6) Diabetic neuropathy Code(s): E11.40 - TYPE 2 DIABETES MELLITUS WITH DIABETIC NEUROPATHY, UNSP (7) Diabetic retinopathy Code(s): E11.319 - TYPE 2 DIABETES W UNSP DIABETIC RTNOP W/O MACULAR EDEMA (8) History of heroin abuse Code(s): Z87.898 - PERSONAL HISTORY OF OTHER SPECIFIED CONDITIONS (9) History of cocaine abuse Code(s): Z87.898 - PERSONAL HISTORY OF OTHER SPECIFIED CONDITIONS (10) CKD (chronic kidney disease) Code(s): N18.9 - CHRONIC KIDNEY DISEASE, UNSPECIFIED (11) Neuropathy Code(s): G62.9 - POLYNEUROPATHY, UNSPECIFIED (12) Osteomyelitis Code(s): M86.9 - OSTEOMYELITIS, UNSPECIFIED Qualifiers: Osteomyelitis type: subacute Osteomyelitis location: foot (13) Type 2 diabetes mellitus with foot ulcer Code(s): E11.621 - TYPE 2 DIABETES MELLITUS WITH FOOT ULCER; L97.509 - NON- PRESSURE CHRONIC ULCER OTH PRT UNSP FOOT W UNSP SEVERITY Qualifiers: (14) Asthma Code(s): J45.909 - UNSPECIFIED ASTHMA, UNCOMPLICATED (15) Diabetes Code(s): E11.9 - TYPE 2 DIABETES MELLITUS WITHOUT COMPLICATIONS Qualifiers: Diabetes mellitus complication status: with neurologic complications Diabetes mellitus complication detail: with polyneuropathy (16) Hepatitis C Code(s): B19.20 - UNSPECIFIED VIRAL HEPATITIS C WITHOUT HEPATIC COMA
[2018-12-03] MEDS ORDERED: PIPERACILLIN/TAZOBACTAM 4.5 GM VIAL IVPB ONE ×2 (01:20→09:34)
[2018-12-03] MEDS ORDERED: DEXTROSE 5%-WATER 100 ML IVPB ONE ×2 (01:21→09:34)
[2018-12-03] MEDS: PIPERACILLIN/TAZOB 4.5 GM 4.5 GM in DEXTROSE 5%-WATER 100 ML IVPB SCH ×2 (01:37→09:38)
[2018-12-03] MEDS: METOCLOPRAMIDE HCL INJECTION 10 MG/2 ML VIAL IVPUSH SCH ×4 (03:00→21:36)
[2018-12-03 06:12] LABS: ARTERIAL BLD GAS O2 SATURATION 96.2 % (90-98.9); ARTERIAL BLOOD GAS BASE EXCESS 1.9 meq/l (-2-2); ARTERIAL BLOOD GAS PCO2 44.6 mmHg (35-45); ARTERIAL BLOOD GAS PO2 87.3 mmHg (80-100); ARTERIAL BLOOD GAS pH 7.39 (7.35-7.45)
[2018-12-03 06:23] LABS: ALLENS TEST POSITIVE
[2018-12-03] MEDS: FUROSEMIDE 40 MG/4 ML INJECTABLE VIAL IVPUSH SCH ×2 (07:05→13:21)
[2018-12-03] MEDS: HEPARIN NA (PORCINE) 5,000 UNITS/ML 1ML VIAL SQ SCH ×3 (07:06→21:36)
[2018-12-03] MEDS: GABAPENTIN 100 MG CAPSULE (FP) PO SCH (07:06)
[2018-12-03] MEDS: INSULIN SLIDING SCALE (NOVOLOG) 1 VIAL SQ SCH ×3 (07:06→21:52)
[2018-12-03] MEDS: METHADONE HCL 40 MG DISPERSABLE TABLET PO SCH (07:06)
[2018-12-03 07:16] LABS: BASO % 0.3 % (0-2.0); EOS % 0.3 % (0-4.5); HEMATOCRIT 27.6 % (35.4-49); HEMOGLOBIN 9.7 GM/dL (11.7-16.9); LYMPH % 11.2 % (8-40); MCHC 35.1 g/dl (32.0-35.9); MEAN CELL VOLUME 85.3 fl (80-96); MEAN PLT VOLUME 7.5 fl (7.5-11.1); MONO % 6.6 % (3.8-10.2); NEUT % 81.6 % (42.8-82.8); PLATELET COUNT 215 K/MM3 (134-434); RBC 3.23 M/mm3 (4.00-5.60); RDW 17.5 % (11.9-15.9)
[2018-12-03 07:31] LABS: ALBUMIN 2.2 g/dl (3.4-5.0); ALK PHOS 99 U/L (45-117); ANION GAP 8 MMOL/L (8-16); BILIRUBIN,TOTAL 0.7 mg/dL (0.2-1); BLOOD UREA NITROGEN 47 mg/dL (7-18); CALCIUM 7.2 mg/dL (8.5-10.1); CHLORIDE 102 mmol/L (98-107); CO2 29 mmol/L (21-32); CREATININE 1.6 mg/dL (0.55-1.3); GLUCOSE,RANDOM 145 mg/dL (74-106); MAGNESIUM 2.3 mg/dL (1.8-2.4); PHOSPHOROUS 3.7 mg/dL (2.5-4.9); POTASSIUM 3.3 mmol/L (3.5-5.1); SGOT/AST 46 U/L (15-37); SGPT/ALT 43 U/L (13-61); SODIUM 139 mmol/L (136-145); TOT PROT 5.4 g/dl (6.4-8.2)
[2018-12-03] MEDS ORDERED: METHADONE HCL 5 MG TABLET PO ONE (07:52)
[2018-12-03] MEDS: PROPOFOL 1,000,000 MCG/100 ML VIAL IVPB SCH (09:39)
[2018-12-03] MEDS: POLYETHYLENE GLYCOL 3350 119 GM BTL PO SCH (09:40)
[2018-12-03] MEDS: ASPIRIN 81 MG CHEWABLE TABLETS PO SCH (09:40)
[2018-12-03] MEDS: busPIRone HCL 5 MG TABLET PO SCH (09:40)
[2018-12-03] MEDS: PANTOPRAZOLE SODIUM 40 MG VIAL IVPUSH SCH (09:41)
[2018-12-03] MEDS: CALCIUM 500MG/VIT-D 200 UNITS COMBO TABLET (FP) PO SCH (09:41)
[2018-12-03] MEDS: CHLORHEXIDINE GLUCONATE 0.12% 15ML CUP MM SCH ×2 (09:41→21:37)
[2018-12-03] MEDS: NIFEdipine E.R. 30 MG TABLET (FP) PO SCH (09:41)
[2018-12-03] MEDS: ALLOPURINOL 300 MG TABLET (FP) PO SCH (09:42)
[2018-12-03] MEDS: TIOTROPIUM BROMIDE 2.5 MCG (SPIRIVA) RESPIMAT INHALER IH SCH (09:42)
[2018-12-03] MEDS: metoPROLOL SUCCINATE 25 MG TAB.SR.24H (FP) PO SCH (09:42)
[2018-12-03] MEDS: valACYclovir HCL 500 MG TABLET (FP) PO SCH (09:42)
--- NOTE | 2018-12-03 10:33 | PN ---
Teaching Attending Note Name of Resident: Nicole Mendoza ATTENDING PHYSICIAN STATEMENT I saw and evaluated the patient. I reviewed the resident's note and discussed the case with the resident. I agree with the resident's findings and plan as documented. SUBJECTIVE: Patient seen and examined in the ICU. Remains intubated and sedated. AC mode of vent, 40% and PEEP 8. CXR: decrease in bilateral pulmonary vascular congestion Intake & Output 11/30/18 12/01/18 12/02/18 12/03/18 23:59 23:59 23:59 23:59 Intake Total 2545.8 1420 752 130 Output Total 2400 2800 2500 1100 Balance 145.8 -1380 -1748 -970 Weight 230 lb 3.2 oz 225 lb 2 oz 227 lb 1.218 oz Last Vital Signs Temp Pulse Resp BP Pulse Ox 99.1 F 68 24 H 117/71 97 12/03/18 09:58 12/03/18 09:58 12/03/18 10:00 12/03/18 10:00 12/03/18 10:00 Active Medications Acetaminophen (Tylenol -) 650 mg PO Q6H PRN PRN Reason: FEVER Last Admin: 12/02/18 18:18 Dose: 650 mg Albuterol Sulfate (Ventolin 0.083% Nebulizer Soln -) 1 amp NEB Q4H PRN PRN Reason: SHORT OF BREATH/WHEEZING Last Admin: 12/02/18 20:17 Dose: 1 amp Allopurinol (Zyloprim -) 300 mg PO DAILY [facility] Last Admin: 12/03/18 09:42 Dose: Not Given Aspirin (Asa -) 81 mg PO DAILY [facility] Last Admin: 12/03/18 09:40 Dose: Not Given Atorvastatin Calcium (Lipitor -) 80 mg PO [facility] Last Admin: 12/02/18 21:22 Dose: 80 mg Buspirone HCl (Buspar -) 15 mg PO BID [facility] Last Admin: 12/03/18 09:40 Dose: Not Given Calcium Carbonate/Cholecalciferol (Os-Kyler 500+D -) 2 tab PO DAILY [facility] Last Admin: 12/03/18 09:41 Dose: Not Given Chlorhexidine Gluconate (Hibiclens For Decolonization -) 1 applic TP [facility] Last Admin: 12/02/18 21:24 Dose: 1 applic Chlorhexidine Gluconate (Peridex -) 15 ml MM BID [facility] Last Admin: 12/03/18 09:41 Dose: 15 ml Docusate Sodium (Colace -) 100 mg PO BID PRN PRN Reason: CONSTIPATION Furosemide (Lasix Injection -) 40 mg IVPUSH BID@0600,1400 [facility] Last Admin: 12/03/18 07:05 Dose: 40 mg Gabapentin (Neurontin -) 100 mg PO TID [facility] Last Admin: 12/03/18 07:06 Dose: 100 mg Heparin Sodium (Porcine) (Heparin -) 5,000 unit SQ TID [facility] Last Admin: 12/03/18 07:06 Dose: 5,000 unit Propofol (Diprivan -) 1,000,000 mcg in 100 mls @ 9.349 mls/hr IVPB TITR [facility]; Protocol Last Admin: 12/03/18 09:39 Dose: 50 mcg/kg/min, 31.162 mls/hr Piperacillin Sod/Tazobactam (Sod 4.5 gm/ Dextrose) 100 mls @ 200 mls/hr IVPB Q8H-IV [facility]; Protocol Last Admin: 12/03/18 09:38 Dose: 200 mls/hr Insulin Aspart (Novolog Vial Sliding Scale -) 1 vial SQ TID [facility]; Protocol Last Admin: 12/03/18 07:06 Dose: Not Given Insulin Detemir (Levemir Vial) 20 units SQ HS [facility] Last Admin: 12/02/18 21:29 Dose: 20 units Methadone HCl (Dolophine -) 40 mg PO DAILY@0600 [facility] Last Admin: 12/03/18 07:06 Dose: 40 mg Metoclopramide HCl (Reglan Injection -) 10 mg IVPUSH Q6H-IV [facility] Last Admin: 12/03/18 09:39 Dose: 10 mg Metoprolol Succinate (Toprol Xl -) 25 mg PO DAILY [facility] Last Admin: 12/03/18 09:42 Dose: Not Given Nifedipine (Procardia Xl -) 30 mg PO DAILY [facility] Last Admin: 12/03/18 09:41 Dose: Not Given Pantoprazole Sodium (Protonix Iv) 40 mg IVPUSH DAILY [facility] Last Admin: 12/03/18 09:41 Dose: 40 mg Polyethylene Glycol (Miralax (For Daily Use) -) 17 gm PO DAILY [facility] Last Admin: 12/03/18 09:40 Dose: Not Given Tiotropium [place] (Spiriva Respimat) 2 puff IH DAILY [facility] Last Admin: 12/03/18 09:42 Dose: Not Given Valacyclovir HCl (Valtrex -) 500 mg PO DAILY [facility] Last Admin: 12/03/18 09:42 Dose: Not Given Gen: sedated, vented HEENT: PERRL, EOMI PULM: coarse crackles at the bases, no wheeze CV: S1S2, (-) murmur ABD: soft lightly distended, hypoactive BS EXT; (+) edema FIBREGLASS GUN HAND: sedated Laboratory Results - last 24 hr 12/02/18 12/02/18 12/02/18 09:00 12:33 17:50 WBC RBC Hgb Hct MCV MCH MCHC RDW Plt Count MPV Absolute Neuts (auto) Neutrophils % Lymphocytes % Monocytes % Eosinophils % Basophils % Nucleated RBC % Anticoagulation Therapy Puncture Site ABG pH ABG pCO2 at Pt Temp ABG pO2 at Pt Temp ABG HCO3 ABG O2 Sat (Measured) ABG O2 Content ABG Base Excess Benny Test O2 Delivery Device Oxygen Flow Rate Vent Mode Vent Rate Mechanical Rate PEEP Pressure Support Vent Sodium Potassium Chloride Carbon Dioxide Anion Gap BUN Creatinine Creat Clearance w eGFR POC Glucometer 136 155 Random Glucose Calcium Phosphorus Magnesium Total Bilirubin AST ALT Alkaline Phosphatase Total Protein Albumin Vancomycin Pre-Dose 20.6 12/02/18 12/03/18 12/03/18 21:20 05:30 05:30 WBC 6.0 RBC 3.23 L Hgb 9.7 L Hct 27.6 L MCV 85.3 MCH 30.0 MCHC 35.1 RDW 17.5 H Plt Count 215 MPV 7.5 Absolute Neuts (auto) 4.9 Neutrophils % 81.6 Lymphocytes % 11.2 D Monocytes % 6.6 D Eosinophils % 0.3 D Basophils % 0.3 Nucleated RBC % 0 Anticoagulation Therapy Puncture Site ABG pH ABG pCO2 at Pt Temp ABG pO2 at Pt Temp ABG HCO3 ABG O2 Sat (Measured) ABG O2 Content ABG Base Excess Benny Test O2 Delivery Device Oxygen Flow Rate Vent Mode Vent Rate Mechanical Rate PEEP Pressure Support Vent Sodium 139 Potassium 3.3 L Chloride 102 Carbon Dioxide 29 Anion Gap 8 BUN 47 H Creatinine 1.6 H Creat Clearance w eGFR 43.60 POC Glucometer 152 Random Glucose 145 H Calcium 7.2 L Phosphorus 3.7 Magnesium 2.3 Total Bilirubin 0.7 AST 46 H ALT 43 Alkaline Phosphatase 99 Total Protein 5.4 L Albumin 2.2 L Vancomycin Pre-Dose 12/03/18 12/03/18 05:45 06:29 WBC RBC Hgb Hct MCV MCH MCHC RDW Plt Count MPV Absolute Neuts (auto) Neutrophils % Lymphocytes % Monocytes % Eosinophils % Basophils % Nucleated RBC % Anticoagulation Therapy No Result Required. Puncture Site Right radial ABG pH 7.39 ABG pCO2 at Pt Temp 44.6 ABG pO2 at Pt Temp 87.3 ABG HCO3 26.5 H ABG O2 Sat (Measured) 96.2 ABG O2 Content 11.8 L ABG Base Excess 1.9 Benny Test Positive O2 Delivery Device Vent Oxygen Flow Rate 40% Vent Mode No Result Required. Vent Rate 24 Mechanical Rate No Result Required. PEEP 8.0 Pressure Support Vent 450 Sodium Potassium Chloride Carbon Dioxide Anion Gap BUN Creatinine Creat Clearance w eGFR POC Glucometer 133 Random Glucose Calcium Phosphorus Magnesium Total Bilirubin AST ALT Alkaline Phosphatase Total Protein Albumin Vancomycin Pre-Dose ASSESSMENT/PLAN: Acute Respiratory Failure Suspected ARDS physiology (?) methadone withdrawal CAP Suspected Acute Pulmonary Edema HTN Troponemia IIDM DARIO on CKD Methadone maintenance Sedation vacation and wean trials as tolerated: hope to extubate in the next 1 to 2 days once volume status is improved. ABX per ID Monitor off systemic steroids Strict I & O BD TX Follow CXR Transfusion threshold: Hgb = 8 Enteral feeds Lasix BID Requires ICU monitoring Dr Culver Critical care time spent in reviewing chart, evaluating patient and formulating plan - 36 minutes.
--- NOTE | 2018-12-03 11:06 | PN ---
Progress Note (short form) - Note Progress Note: remains intubated weaning trials new fever (isolated) yesterday Vital Signs Period Temp Pulse Resp BP Sys/Andre Pulse Ox Last 24 Hr 98.2 F-101.6 F 68-89 17-32 111-179/56-90 92-97 cor-rrr lungs decreased bs at bases abd soft,nt ext no edema no central lines CBC, BMP 12/03/18 05:30 12/03/18 05:30 vanco trough 13.9 Microbiology 11/25/18 20:10 Blood - Peripheral Venous Blood Culture - Final NO GROWTH AFTER 5 DAYS INCUBATION 11/25/18 20:00 Blood - Peripheral Venous Blood Culture - Final NO GROWTH AFTER 5 DAYS INCUBATION 11/28/18 10:40 Sputum - Endotrachea Suction/Ventilator Gram Stain - Final 11/28/18 10:40 Sputum - Endotrachea Suction/Ventilator Sputum Culture - Final S Aureus 11/25/18 20:10 Urine - Urine Sykes Urine Culture - Final NO GROWTH OBTAINED 11/26/18 13:20 Urine For Antigen Detection Legionella Antigen - Final 11/26/18 13:20 Urine For Antigen Detection Streptococcus pneumoniae Antigen (M - Final 11/20/18 08:11 Urine - Urine Clean Catch Urine Culture - Final NO GROWTH OBTAINED cxray improving a/p new fever- repeat blood cultures pending respiratory failure left lung pneumonia sputum with MRSA clinically improving better oxygenation multiple myeloma/vertebral fractures renal insufficiency- coffee ground emesis- hemoglobin stable +troponins-cardiology f/u noted vancomycin/zosyn- day #7 antibioitcs d/c zosyn, resume vancomycin does he need the sykes? check UA d/w icu residents f/u cxray in am
--- NOTE | 2018-12-03 11:25 | PN ---
Progress Note, Physician Chief Complaint: FAMILY BEDSIDE EVENTS AND NOTES REVIEWED PATIENT SEDATED AND INTUBATED VENT SUPPORT - Current Medication List Current Medications: Active Medications Albuterol Sulfate (Ventolin 0.083% Nebulizer Soln -) 1 amp NEB Q4H PRN PRN Reason: SHORT OF BREATH/WHEEZING Last Admin: 12/02/18 20:17 Dose: 1 amp Allopurinol (Zyloprim -) 300 mg NGT DAILY [facility] Aspirin (Asa -) 81 mg NGT DAILY [facility] Atorvastatin Calcium (Lipitor -) 80 mg NGT HS [facility] Buspirone HCl (Buspar -) 15 mg NGT BID [facility] Calcium Carbonate/Cholecalciferol (Os-Kyler 500+D -) 2 tab NGT DAILY [facility] Chlorhexidine Gluconate (Hibiclens For Decolonization -) 1 applic TP [facility] Last Admin: 12/02/18 21:24 Dose: 1 applic Chlorhexidine Gluconate (Peridex -) 15 ml MM BID [facility] Last Admin: 12/03/18 09:41 Dose: 15 ml Docusate Sodium (Colace -) 100 mg PO BID PRN PRN Reason: CONSTIPATION Furosemide (Lasix Injection -) 40 mg IVPUSH BID@0600,1400 [facility] Last Admin: 12/03/18 07:05 Dose: 40 mg Gabapentin (Neurontin -) 100 mg NGT TID [facility] Heparin Sodium (Porcine) (Heparin -) 5,000 unit SQ TID [facility] Last Admin: 12/03/18 07:06 Dose: 5,000 unit Propofol (Diprivan -) 1,000,000 mcg in 100 mls @ 9.349 mls/hr IVPB TITR [facility]; Protocol Last Admin: 12/03/18 09:39 Dose: 50 mcg/kg/min, 31.162 mls/hr Vancomycin HCl 1,250 mg/ (Dextrose) 250 mls @ 250 mls/2 hr IVPB Q24H [facility]; Protocol Insulin Aspart (Novolog Vial Sliding Scale -) 1 vial SQ TID [facility]; Protocol Last Admin: 12/03/18 07:06 Dose: Not Given Insulin Detemir (Levemir Vial) 20 units SQ HS [facility] Last Admin: 12/02/18 21:29 Dose: 20 units Methadone HCl (Dolophine -) 40 mg NGT DAILY@0600 [facility] Metoclopramide HCl (Reglan Injection -) 10 mg IVPUSH Q6H-IV [facility] Last Admin: 12/03/18 09:39 Dose: 10 mg Pantoprazole Sodium (Protonix Iv) 40 mg IVPUSH DAILY [facility] Last Admin: 12/03/18 09:41 Dose: 40 mg Polyethylene Glycol (Miralax (For Daily Use) -) 17 gm NGT DAILY [facility] Tiotropium [place] (Spiriva Respimat) 2 puff IH DAILY [facility] Last Admin: 12/03/18 09:42 Dose: Not Given Valacyclovir HCl (Valtrex -) 500 mg NGT DAILY [facility] - Objective Vital Signs: Vital Signs Temperature 99.1 F 12/03/18 09:58 Pulse Rate 68 12/03/18 11:00 Respiratory Rate 24 H 12/03/18 11:00 Blood Pressure 112/63 12/03/18 11:00 O2 Sat by Pulse Oximetry (%) 97 12/03/18 10:00 Constitutional: Yes: Moderate Distress Cardiovascular: Yes: Regular Rate and Rhythm Respiratory: Yes: Diminished, Mechanically Ventilated Gastrointestinal: Yes: Soft Genitourinary: Yes: Massey Present Musculoskeletal: Yes: Muscle Weakness Edema: Yes Edema: LLE: Trace, RLE: Trace Neurological: Yes: Other Labs: CBC, BMP 12/03/18 05:30 12/03/18 05:30 INR, PTT INR 1.19 (0.83-1.09) H 11/30/18 05:30 Fibrinogen > 500.0 mg/dL (238-498) H 11/25/18 20:00 Problem List - Problems (1) Respiratory failure Code(s): J96.90 - RESPIRATORY FAILURE, UNSP, UNSP W HYPOXIA OR HYPERCAPNIA (2) Anemia Code(s): D64.9 - ANEMIA, UNSPECIFIED (3) CKD (chronic kidney disease) Code(s): N18.9 - CHRONIC KIDNEY DISEASE, UNSPECIFIED (4) Diabetes Code(s): E11.9 - TYPE 2 DIABETES MELLITUS WITHOUT COMPLICATIONS Qualifiers: Diabetes mellitus type: type 2 (5) Diabetic gastroparesis Code(s): E11.43 - TYPE 2 DIABETES W DIABETIC AUTONOMIC (POLY)NEUROPATHY; K31.84 - GASTROPARESIS (6) Diabetic neuropathy Code(s): E11.40 - TYPE 2 DIABETES MELLITUS WITH DIABETIC NEUROPATHY, UNSP (7) Diabetic retinopathy Code(s): E11.319 - TYPE 2 DIABETES W UNSP DIABETIC RTNOP W/O MACULAR EDEMA (8) Edema Code(s): R60.9 - EDEMA, UNSPECIFIED (9) History of cocaine abuse Code(s): Z87.898 - PERSONAL HISTORY OF OTHER SPECIFIED CONDITIONS (10) History of heroin abuse Code(s): Z87.898 - PERSONAL HISTORY OF OTHER SPECIFIED CONDITIONS (11) Multiple myeloma Code(s): C90.00 - MULTIPLE MYELOMA NOT HAVING ACHIEVED REMISSION (12) Hepatitis C Code(s): B19.20 - UNSPECIFIED VIRAL HEPATITIS C WITHOUT HEPATIC COMA Assessment/Plan VENT SUPPORT AGREE WITH PULMONARY WEANING TRIAL FEEDINGS VIA NGT CHECKING ELECTROLYTE CULTURES REVIEWED SSI/BGM PPI AC/DVT PROPHYLAXIS FAMILY DISCUSSION FOR 30 MINUTES WITH GOALS OF CARE
[2018-12-03] MEDS ORDERED: PT OWN MED DRAWER 7, Y5N ONE ×3 (12:27→21:14)
[2018-12-03 13:04] LABS: OVALOCYTE 1+; PLATELET ESTIMATE ADEQUATE; TEAR DROP CELLS 1+
[2018-12-03] MEDS: GABAPENTIN 100 MG CAPSULE (FP) NGT SCH ×2 (13:27→21:36)
[2018-12-03] MEDS: VANCOMYCIN HCL 1,250 MG in DEXTROSE 5%-WATER - 250 ML IVPB SCH (14:17)
[2018-12-03 14:22] LABS: URINE APPEARANCE SLCLOUDY; URINE BILIRUBIN NEGATIVE (<2.0 mg/dL); URINE COLOR YELLOW; URINE GLUCOSE (UA) NEGATIVE (NEGATIVE); URINE KETONE NEGATIVE (NEGATIVE); URINE LEUK ESTERASE 1+ (NEGATIVE); URINE NITRITE NEGATIVE (NEGATIVE); URINE PROTEIN 3+ (NEGATIVE); URINE UROBILINOGEN NEGATIVE mg/dL (0.2-1.0)
--- NOTE | 2018-12-03 14:26 | PN ---
Physical Exam: SUBJECTIVE: Patient seen and examined by me at bedside No acute events overnight. Remains intubated Off sedation this morning and tolerated weaning trials. CXR improved with decrease pulmonary vascular congestion OBJECTIVE: Vital Signs Period Temp Pulse Resp BP Sys/Andre Pulse Ox Last 24 Hr 99.0 F-101.6 F 62-89 17-32 104-179/56-90 92-97 GENERAL: The patient is sedated, intubated. HEENT: PERRL, sclera anicteric, conjunctiva clear. LUNGS: Mechanical breath sounds equal with decreased breath sounds bilaterally and anteriorly HEART: RRR, normal s1 and s2 without murmur, rub or gallop. ABDOMEN: Soft, nontender, nondistended, hypoactive bowel sounds. EXTREMITIES: No peripheral edema with chronic venous stasis in B/L LE Laboratory Results 12/03/18 05:30 12/03/18 05:30 12/03/18 05:30 Phosphorus 3.7 Magnesium 2.3 Total Bilirubin 0.7 AST 46 H ALT 43 Alkaline Phosphatase 99 Active Medications Generic Name Dose Route Start Last Admin Trade Name Freq PRN Reason Stop Dose Admin Albuterol Sulfate 1 amp 11/29/18 21:21 12/02/18 20:17 Ventolin 0.083% Nebulizer Soln - NEB 1 amp Q4H PRN Administration SHORT OF BREATH/WHEEZING Allopurinol 300 mg 12/03/18 10:57 Zyloprim - NGT DAILY [facility] Aspirin 81 mg 12/03/18 10:58 Asa - NGT DAILY [facility] Atorvastatin Calcium 80 mg 12/03/18 22:00 Lipitor - NGT HS [facility] Buspirone HCl 15 mg 12/03/18 10:58 Buspar - NGT BID [facility] Calcium Carbonate/Cholecalciferol 2 tab 12/03/18 10:58 Os-Kyler 500+D - NGT DAILY [facility] Chlorhexidine Gluconate 1 applic 11/26/18 22:00 12/02/18 21:24 Hibiclens For Decolonization - TP 1 applic HS [facility] Administration Chlorhexidine Gluconate 15 ml 11/27/18 22:00 12/03/18 09:41 Peridex - MM 15 ml BID [facility] Administration Docusate Sodium 100 mg 11/26/18 08:54 Colace - PO BID PRN CONSTIPATION Furosemide 40 mg 11/29/18 14:45 12/03/18 13:21 Lasix Injection - IVPUSH 40 mg BID@0600,1400 [facility] Administration Gabapentin 100 mg 12/03/18 14:00 12/03/18 13:27 Neurontin - NGT 100 mg TID [facility] Administration Heparin Sodium (Porcine) 5,000 unit 11/30/18 22:00 12/03/18 13:24 Heparin - SQ 5,000 unit TID [facility] Administration Propofol 1,000,000 mcg in 100 mls @ 9.349 mls/hr 11/26/18 08:54 12/03/18 09: 39 Diprivan - IVPB 50 mcg/kg/min TITR [facility] 31.162 mls/hr Administration Protocol 15 MCG/KG/MIN Vancomycin HCl 1,250 mg/ 250 mls @ 250 mls/2 hr 12/03/18 11:15 12/03/18 14:17 Dextrose IVPB 250 mls/2 hr Q24H [facility] Administration Protocol Insulin Aspart 1 vial 12/02/18 07:30 12/03/18 13:28 Novolog Vial Sliding Scale - SQ 2 units TID [facility] Administration Protocol Insulin Detemir 20 units 11/30/18 21:42 12/02/18 21:29 Levemir Vial SQ 20 units HS [facility] Administration Methadone HCl 40 mg 12/04/18 06:00 Dolophine - NGT DAILY@0600 [facility] Metoclopramide HCl 10 mg 11/29/18 21:00 12/03/18 14:18 Reglan Injection - IVPUSH 10 mg Q6H-IV [facility] Administration Pantoprazole Sodium 40 mg 12/02/18 11:45 12/03/18 09:41 Protonix Iv IVPUSH 40 mg DAILY [facility] Administration Polyethylene Glycol 17 gm 12/03/18 10:58 Miralax (For Daily Use) - NGT DAILY [facility] Tiotropium [place] 2 puff 11/26/18 10:00 12/03/18 09:42 Spiriva Respimat IH Not Given DAILY [facility] Valacyclovir HCl 500 mg 12/03/18 10:58 Valtrex - NGT DAILY [facility] ASSESSMENT/PLAN: Patient is a 63 year old male who was initially admitted to telemetry for hyponatremia and constipation. Patient went into acute hypoxic respiratory failure and was intubated. Patient transferred to ICU for further monitoring and management. Neurological -Patient is sedated with Propofol. Daily sedation vacation -Methadone 40mg PO daily -Monitor for signs of mental status change Pulmonary -Acute hypoxic, hypoxemic respiratory failure likely secondary to Pulmonary Edema -Pneumonia, +MRSA nares colonization -Chest radiograph today improved significantly -Vancomycin 1250mg IV daily (day #7) -Zosyn discontinued as patient completed 7 days -Methylprednisone 40mg IV BID -Continue Lasix 40mg IV BID -DuoNebs Q6H, Spiriva 2 puffs IH daily -Maintain oxygen saturation greater than 90% Cardiovascular -Hypertension -NSTEMI -Troponin peaked at 21.6. Discussed with Cardiology, who recommends continuing Aspirin at this time. No indication for Heparin drip -Continue Aspirin 81mg GT daily -Cardiac ECHO shows EF 45-50%, mild global hypokinesis, grade I diastolic dysfunction. Gastrointestinal -Constipation -History of Hepatitis C -Protonix 40mg IV daily -Metoclopramide 10mg IV Q6H -Monitor serial occult blood testing -NG tube clamped overnight with no residual. Feeds started Endocrine -Insulin dependent diabetes mellitus -Insulin sliding scale TID -Fingerstick blood glucose monitoring TID -Gabapentin 100mg PO TID for peripheral neuropathy Hematologic -Multiple Myeloma -Maintain Hb above 8.0 -Multiple Myeloma treatment, per hematology -Hematology recommendations appreciated Renal DARIO on CKD Hypocalcemia -Creatinine improving and volume status is improving -Continue with lasix 40mg IV BID -Continue calcium supplements -Keep net negative with strict I&O's -Daily weight FEN -Fluids: No IV fluids -Electrolytes: Hypocalcemia. Follow CMP; replete as necessary. -Nutrition: Tube feeds Prophylaxis -Heparin 5000u subq TID -Protonix 40mg IV daily Disposition -Full code -Continue care in ICU Nicole Mendoza [id number] Visit type - Emergency Visit Emergency Visit: Yes ED Registration Date: 11/20/18 Care time: The patient presented to the Emergency Department on the above date and was hospitalized for further evaluation of their emergent condition. - New Patient This patient is new to me today: No - Critical Care Critical Care patient: Yes Total Critical Care Time (in minutes): 45 Critical Care Statement: The care of this patient involved high complexity decision making to prevent further life threatening deterioration of the patient 's condition and/or to evaluate & treat vital organ system(s) failure or risk of failure.
[2018-12-03 14:38] LABS: URINE MUCUS RARE
[2018-12-03] MEDS ORDERED: POTASSIUM CHLORIDE ORAL LIQUID 20 MEQ/15 ML NGT ONE (15:00)
--- NOTE | 2018-12-03 15:03 | PN ---
Progress Note, Physician History of Present Illness: Pt seen and examined at bedside. He remains in the ICU. Pt remains intubated. - Current Medication List Current Medications: Active Medications Albuterol Sulfate (Ventolin 0.083% Nebulizer Soln -) 1 amp NEB Q4H PRN PRN Reason: SHORT OF BREATH/WHEEZING Last Admin: 12/02/18 20:17 Dose: 1 amp Allopurinol (Zyloprim -) 300 mg NGT DAILY [facility] Aspirin (Asa -) 81 mg NGT DAILY [facility] Atorvastatin Calcium (Lipitor -) 80 mg NGT HS YAKOV Buspirone HCl (Buspar -) 15 mg NGT BID [facility] Calcium Carbonate/Cholecalciferol (Os-Kyler 500+D -) 2 tab NGT DAILY [facility] Chlorhexidine Gluconate (Hibiclens For Decolonization -) 1 applic TP HS [facility] Last Admin: 12/02/18 21:24 Dose: 1 applic Chlorhexidine Gluconate (Peridex -) 15 ml MM BID [facility] Last Admin: 12/03/18 09:41 Dose: 15 ml Docusate Sodium (Colace -) 100 mg PO BID PRN PRN Reason: CONSTIPATION Furosemide (Lasix Injection -) 40 mg IVPUSH BID@0600,1400 [facility] Last Admin: 12/03/18 13:21 Dose: 40 mg Gabapentin (Neurontin -) 100 mg NGT TID [facility] Last Admin: 12/03/18 13:27 Dose: 100 mg Heparin Sodium (Porcine) (Heparin -) 5,000 unit SQ TID [facility] Last Admin: 12/03/18 13:24 Dose: 5,000 unit Propofol (Diprivan -) 1,000,000 mcg in 100 mls @ 9.349 mls/hr IVPB TITR [facility]; Protocol Last Admin: 12/03/18 09:39 Dose: 50 mcg/kg/min, 31.162 mls/hr Vancomycin HCl 1,250 mg/ (Dextrose) 250 mls @ 250 mls/2 hr IVPB Q24H [facility]; Protocol Last Admin: 12/03/18 14:17 Dose: 250 mls/2 hr Insulin Aspart (Novolog Vial Sliding Scale -) 1 vial SQ TID [facility]; Protocol Last Admin: 12/03/18 13:28 Dose: 2 units Insulin Detemir (Levemir Vial) 20 units SQ [facility] Last Admin: 12/02/18 21:29 Dose: 20 units Methadone HCl (Dolophine -) 40 mg NGT DAILY@0600 [facility] Metoclopramide HCl (Reglan Injection -) 10 mg IVPUSH Q6H-IV [facility] Last Admin: 12/03/18 14:18 Dose: 10 mg Pantoprazole Sodium (Protonix Iv) 40 mg IVPUSH DAILY [facility] Last Admin: 12/03/18 09:41 Dose: 40 mg Polyethylene Glycol (Miralax (For Daily Use) -) 17 gm NGT DAILY [facility] Potassium Chloride (Potassium Chloride Oral Liquid) 40 meq NGT ONCE ONE Stop: 12/03/18 15:01 Last Admin: 12/03/18 14:57 Dose: 40 meq Tiotropium Wever (Spiriva Respimat) 2 puff IH DAILY [facility] Last Admin: 12/03/18 09:42 Dose: Not Given Valacyclovir HCl (Valtrex -) 500 mg NGT DAILY [facility] - Objective Vital Signs: Vital Signs Temperature 99 F 12/03/18 14:39 Pulse Rate 62 12/03/18 14:00 Respiratory Rate 24 H 12/03/18 14:00 Blood Pressure 111/62 12/03/18 14:00 O2 Sat by Pulse Oximetry (%) 97 12/03/18 10:00 Constitutional: Yes: Calm Eyes: Yes: Conjunctiva Clear HENT: Yes: Atraumatic Neck: Yes: Supple Cardiovascular: Yes: S1, S2 Respiratory: Yes: Mechanically Ventilated Gastrointestinal: Yes: Soft, Abdomen, Obese Genitourinary: Yes: Massey Present Musculoskeletal: Yes: WNL Edema: Yes Edema: LLE: 1+, RLE: 1+ Neurological: Yes: Lethargy Labs: CBC, BMP 12/03/18 05:30 12/03/18 05:30 INR, PTT INR 1.19 (0.83-1.09) H 11/30/18 05:30 Fibrinogen > 500.0 mg/dL (238-498) H 11/25/18 20:00 - ....Imaging Chest X-ray: Report Reviewed Problem List - Problems (1) CKD (chronic kidney disease) Code(s): N18.9 - CHRONIC KIDNEY DISEASE, UNSPECIFIED (2) Constipation Code(s): K59.00 - CONSTIPATION, UNSPECIFIED Qualifiers: Constipation type: unspecified constipation type Qualified Code(s): K59.00 - Constipation, unspecified (3) Hyponatremia Code(s): E87.1 - HYPO-OSMOLALITY AND HYPONATREMIA Assessment/Plan Current Medications Generic Name Dose Route Start Last Admin Trade Name Freq PRN Reason Stop Dose Admin Albuterol Sulfate 1 amp 11/29/18 21:21 12/02/18 20:17 Ventolin 0.083% Nebulizer Soln - NEB 1 amp Q4H PRN Administration SHORT OF BREATH/WHEEZING Allopurinol 300 mg 12/03/18 10:57 Zyloprim - NGT DAILY [facility] Aspirin 81 mg 12/03/18 10:58 Asa - NGT DAILY YAKOV Atorvastatin Calcium 80 mg 12/03/18 22:00 Lipitor - NGT HS YAKOV Buspirone HCl 15 mg 12/03/18 10:58 Buspar - NGT BID YAKOV Calcium Carbonate/Cholecalciferol 2 tab 12/03/18 10:58 Os-Kyler 500+D - NGT DAILY YAKOV Chlorhexidine Gluconate 1 applic 11/26/18 22:00 12/02/18 21:24 Hibiclens For Decolonization - TP 1 applic HS YAKOV Administration Chlorhexidine Gluconate 15 ml 11/27/18 22:00 12/03/18 09:41 Peridex - MM 15 ml BID YAKOV Administration Docusate Sodium 100 mg 11/26/18 08:54 Colace - PO BID PRN CONSTIPATION Furosemide 40 mg 11/29/18 14:45 12/03/18 13:21 Lasix Injection - IVPUSH 40 mg BID@0600,1400 YAKOV Administration Gabapentin 100 mg 12/03/18 14:00 12/03/18 13:27 Neurontin - NGT 100 mg TID YAKOV Administration Heparin Sodium (Porcine) 5,000 unit 11/30/18 22:00 12/03/18 13:24 Heparin - SQ 5,000 unit TID YAKOV Administration Propofol 1,000,000 mcg in 100 mls @ 9.349 mls/hr 11/26/18 08:54 12/03/18 09: 39 Diprivan - IVPB 50 mcg/kg/min TITR YAKOV 31.162 mls/hr Administration Protocol 15 MCG/KG/MIN Vancomycin HCl 1,250 mg/ 250 mls @ 250 mls/2 hr 12/03/18 11:15 12/03/18 14:17 Dextrose IVPB 250 mls/2 hr Q24H YAKOV Administration Protocol Insulin Aspart 1 vial 12/02/18 07:30 12/03/18 13:28 Novolog Vial Sliding Scale - SQ 2 units TID YAKOV Administration Protocol Insulin Detemir 20 units 11/30/18 21:42 12/02/18 21:29 Levemir Vial SQ 20 units HS YAKOV Administration Methadone HCl 40 mg 12/04/18 06:00 Dolophine - NGT DAILY@0600 [facility] Metoclopramide HCl 10 mg 11/29/18 21:00 12/03/18 14:18 Reglan Injection - IVPUSH 10 mg Q6H-IV YAKOV Administration Pantoprazole Sodium 40 mg 12/02/18 11:45 12/03/18 09:41 Protonix Iv IVPUSH 40 mg DAILY YAKOV Administration Polyethylene Glycol 17 gm 12/03/18 10:58 Miralax (For Daily Use) - NGT DAILY [facility] Tiotropium Wever 2 puff 11/26/18 10:00 12/03/18 09:42 Spiriva Respimat IH Not Given DAILY [facility] Valacyclovir HCl 500 mg 12/03/18 10:58 Valtrex - NGT DAILY [facility] Impression 1. hyponatremia 2. CKD 3. nausea and vomiting 4. htn 5. DM 6. 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 multiple myeloma 9. anemia 10. proteinuria 11. hyperkalemia 12. resp failure Plan - cont lasix - replace potassium - discussed with ICU - repeat cxr in am - vent support - cont calcium supplements - keep net negative - cont ICU care Dr Cates
--- NOTE | 2018-12-03 15:06 | PN ---
Progress Note, Physician History of Present Illness: seen and examined today in nad. intubated, sedated, unresponsive. discussed with pts daughters at bedside. - Current Medication List Current Medications: Active Medications Albuterol Sulfate (Ventolin 0.083% Nebulizer Soln -) 1 amp NEB Q4H PRN PRN Reason: SHORT OF BREATH/WHEEZING Last Admin: 12/02/18 20:17 Dose: 1 amp Allopurinol (Zyloprim -) 300 mg NGT DAILY [facility] Aspirin (Asa -) 81 mg NGT DAILY Y[facility] Atorvastatin Calcium (Lipitor -) 80 mg NGT HS YAKOV Buspirone HCl (Buspar -) 15 mg NGT BID [facility] Calcium Carbonate/Cholecalciferol (Os-Kyler 500+D -) 2 tab NGT DAILY [facility] Chlorhexidine Gluconate (Hibiclens For Decolonization -) 1 applic TP HS [facility] Last Admin: 12/02/18 21:24 Dose: 1 applic Chlorhexidine Gluconate (Peridex -) 15 ml MM BID [facility] Last Admin: 12/03/18 09:41 Dose: 15 ml Docusate Sodium (Colace -) 100 mg PO BID PRN PRN Reason: CONSTIPATION Furosemide (Lasix Injection -) 40 mg IVPUSH BID@0600,1400 [facility] Last Admin: 12/03/18 13:21 Dose: 40 mg Gabapentin (Neurontin -) 100 mg NGT TID [facility] Last Admin: 12/03/18 13:27 Dose: 100 mg Heparin Sodium (Porcine) (Heparin -) 5,000 unit SQ TID [facility] Last Admin: 12/03/18 13:24 Dose: 5,000 unit Propofol (Diprivan -) 1,000,000 mcg in 100 mls @ 9.349 mls/hr IVPB TITR [facility]; Protocol Last Admin: 12/03/18 09:39 Dose: 50 mcg/kg/min, 31.162 mls/hr Vancomycin HCl 1,250 mg/ (Dextrose) 250 mls @ 250 mls/2 hr IVPB Q24H [facility]; Protocol Last Admin: 12/03/18 14:17 Dose: 250 mls/2 hr Insulin Aspart (Novolog Vial Sliding Scale -) 1 vial SQ TID [facility]; Protocol Last Admin: 12/03/18 13:28 Dose: 2 units Insulin Detemir (Levemir Vial) 20 units SQ [facility] Last Admin: 12/02/18 21:29 Dose: 20 units Methadone HCl (Dolophine -) 40 mg NGT DAILY@0600 [facility] Metoclopramide HCl (Reglan Injection -) 10 mg IVPUSH Q6H-IV [facility] Last Admin: 12/03/18 14:18 Dose: 10 mg Pantoprazole Sodium (Protonix Iv) 40 mg IVPUSH DAILY [facility] Last Admin: 12/03/18 09:41 Dose: 40 mg Polyethylene Glycol (Miralax (For Daily Use) -) 17 gm NGT DAILY [facility] Tiotropium [place] (Spiriva Respimat) 2 puff IH DAILY [facility] Last Admin: 12/03/18 09:42 Dose: Not Given Valacyclovir HCl (Valtrex -) 500 mg NGT DAILY [facility] - Objective Vital Signs: Vital Signs Temperature 99 F 12/03/18 14:39 Pulse Rate 64 12/03/18 15:03 Respiratory Rate 24 H 12/03/18 15:03 Blood Pressure 122/65 12/03/18 15:03 O2 Sat by Pulse Oximetry (%) 97 12/03/18 10:00 Constitutional: Yes: No Distress, Calm Eyes: Yes: Conjunctiva Clear HENT: Yes: Atraumatic Cardiovascular: Yes: Regular Rate and Rhythm, S1, S2. No: Bradycardia, Tachycardia, Pulse Irregular, Bruit, JVD, Gallop, Murmur, Rub, S3, S4, Varicosities Respiratory: Yes: Regular, Diminished, Intubated, Mechanically Ventilated. No: Rales, Rhonchi, Wheezes Gastrointestinal: Yes: Normal Bowel Sounds, Soft Musculoskeletal: Yes: WNL Extremities: Yes: WNL Edema: No Peripheral Pulses WNL: Yes Neurological: Yes: Unresponsive Labs: CBC, BMP 12/03/18 05:30 12/03/18 05:30 INR, PTT INR 1.19 (0.83-1.09) H 11/30/18 05:30 Fibrinogen > 500.0 mg/dL (238-498) H 11/25/18 20:00 - ....Imaging Chest X-ray: Report Reviewed, Image Reviewed EKG: Report Reviewed, Image Reviewed Other: Report Reviewed, Image Reviewed (tele-nsr) Assessment/Plan The patient is a 63-year-old man, with a history of diabetes, hypertension, hyperlipidemia, peripheral vascular disease, hepatitis C, opioid abuse, on methadone, multiple myeloma, who was admitted with nausea vomiting and abdominal pain with constipation. Developed acute respiratory distress, was intubated and transferred to the ICU. Troponins found to be elevated. There were ECG changes. The patient remains intubated and sedated. Fluid overloaded. Echo is unchanged from July 2018. Continue IV lasix. Transfuse as needed, wean as per ICU team. Conservative cardiac care. He is not a candidate for cardiac cath. AL is due to demand ischemia, no change in echo, would defer cardiac workup at this time. Cont ASA and Lipitor Prognosis remains guarded.
[2018-12-03] MEDS: ATORVASTATIN CA 80 MG TABLET (FP) NGT SCH (21:36)
[2018-12-03] MEDS: INSULIN (LEVEMIR) 100 UNITS/ML UNITS SQ SCH (21:52)
[2018-12-03] MEDS: CHLORHEXIDINE GLUCONATE 4% CLEANSER FOR DECOLONIZATION TP SCH (21:59)
[2018-12-03] MEDS: busPIRone HCL 5 MG TABLET NGT SCH (22:30)
[2018-12-04] MEDS: METOCLOPRAMIDE HCL INJECTION 10 MG/2 ML VIAL IVPUSH SCH ×4 (03:31→21:02)
[2018-12-04 05:56] LABS: HEMATOCRIT 25.4 % (35.4-49); HEMOGLOBIN 9.1 GM/dL (11.7-16.9); MCH 30.9 pg (25.7-33.7); MCHC 35.9 g/dl (32.0-35.9); MEAN CELL VOLUME 86.1 fl (80-96); MEAN PLT VOLUME 7.1 fl (7.5-11.1); PLATELET COUNT 200 K/MM3 (134-434); RBC 2.95 M/mm3 (4.00-5.60)
[2018-12-04] MEDS: METHADONE HCL 40 MG DISPERSABLE TABLET NGT SCH (06:31)
[2018-12-04] MEDS: FUROSEMIDE 40 MG/4 ML INJECTABLE VIAL IVPUSH SCH ×2 (06:32→13:24)
[2018-12-04] MEDS: HEPARIN NA (PORCINE) 5,000 UNITS/ML 1ML VIAL SQ SCH ×3 (06:32→21:10)
[2018-12-04] MEDS: GABAPENTIN 100 MG CAPSULE (FP) NGT SCH ×3 (06:33→21:14)
[2018-12-04] MEDS: INSULIN SLIDING SCALE (NOVOLOG) 1 VIAL SQ SCH ×3 (06:33→22:24)
[2018-12-04 06:44] LABS: BLOOD UREA NITROGEN 50 mg/dL (7-18); GLUCOSE,RANDOM 210 mg/dL (74-106)
[2018-12-04 06:45] LABS: CHLORIDE 103 mmol/L (98-107); CREATININE 1.6 mg/dL (0.55-1.3); POTASSIUM 3.2 mmol/L (3.5-5.1); SODIUM 140 mmol/L (136-145)
[2018-12-04 06:46] LABS: ANION GAP 10 MMOL/L (8-16); CO2 27 mmol/L (21-32)
[2018-12-04 06:47] LABS: ALBUMIN 1.9 g/dl (3.4-5.0); BILIRUBIN,TOTAL 0.9 mg/dL (0.2-1); MAGNESIUM 2.1 mg/dL (1.8-2.4); TOT PROT 6.1 g/dl (6.4-8.2)
[2018-12-04 06:48] LABS: SGOT/AST 53 U/L (15-37); SGPT/ALT 66 U/L (13-61)
[2018-12-04 06:49] LABS: ALK PHOS 112 U/L (45-117)
[2018-12-04 06:52] LABS: CALCIUM 6.7 mg/dL (8.5-10.1)
--- NOTE | 2018-12-04 08:27 | PN ---
Physical Exam: SUBJECTIVE: Patient seen and examined at bedside this morning. Overnight patient remained afebrile, sedated, mechanically ventilated. Tube feeds successfuly resumed. Patient had large bowel movement overnight without melena, hematochezia. OBJECTIVE: Vital Signs Period Temp Pulse Resp BP Sys/Andre Pulse Ox Last 24 Hr 99 F-99.1 F 62-72 16-26 104-145/60-73 92-100 GENERAL: The patient is sedated, intubated. HEENT: Normocephalic, atraumatic. PERRL, sclera anicteric, conjunctiva clear. Neck supple without lymphadenopathy. LUNGS: Mechanical breath sounds equal, clear to auscultation bilateral lower lobes. HEART: Regular rate and rhythm, S1, S2 without murmur, rub or gallop. ABDOMEN: Soft, nontender, nondistended, hypoactive bowel sounds. EXTREMITIES: 2+ radial, dorsalis pedis pulses bilaterally, well-perfused. No lower extremity edema. SKIN: Warm, dry. Improving chronic venous changes noted bilateral lower extremities. Laboratory Results - last 24 hr 12/03/18 12/03/18 12/03/18 05:30 05:30 11:32 WBC RBC Hgb Hct MCV MCH MCHC RDW Plt Count MPV Total Counted 100 Neutrophils % (Manual) 84.0 H Band Neutrophils % 3.0 Lymphocytes % (Manual) 4.0 L Monocytes % (Manual) 2 L Eosinophils % (Manual) 2.0 Platelet Estimate Adequate Platelet Comment Giant platelets Poikilocytosis 2+ Basophilic Stippling 1+ Tear Drop Cells 1+ Ovalocytes 1+ Acanthocytes (Spur) 1+ Sodium Potassium Chloride Carbon Dioxide Anion Gap BUN Creatinine Creat Clearance w eGFR POC Glucometer 196 Random Glucose Calcium Phosphorus Magnesium Total Bilirubin AST ALT Alkaline Phosphatase Total Protein Albumin Urine Color Urine Appearance Urine pH Ur Specific [place] Urine Protein Urine Glucose (UA) Urine Ketones Urine Blood Urine Nitrite Urine Bilirubin Urine Urobilinogen Ur Leukocyte Esterase Urine WBC (Auto) Urine RBC (Auto) Urine Mucus Random Vancomycin 13.9 L 12/03/18 12/03/18 12/04/18 14:00 21:46 05:30 WBC 5.0 RBC 2.95 L Hgb 9.1 L Hct 25.4 L MCV 86.1 MCH 30.9 MCHC 35.9 RDW 18.0 H Plt Count 200 MPV 7.1 L Total Counted Neutrophils % (Manual) Band Neutrophils % Lymphocytes % (Manual) Monocytes % (Manual) Eosinophils % (Manual) Platelet Estimate Platelet Comment Poikilocytosis Basophilic Stippling Tear Drop Cells Ovalocytes Acanthocytes (Spur) Sodium Potassium Chloride Carbon Dioxide Anion Gap BUN Creatinine Creat Clearance w eGFR POC Glucometer 179 Random Glucose Calcium Phosphorus Magnesium Total Bilirubin AST ALT Alkaline Phosphatase Total Protein Albumin Urine Color Yellow Urine Appearance Slcloudy Urine pH 5.0 Ur Specific [place] 1.018 Urine Protein 3+ H Urine Glucose (UA) Negative Urine Ketones Negative Urine Blood Negative Urine Nitrite Negative Urine Bilirubin Negative Urine Urobilinogen Negative Ur Leukocyte Esterase 1+ H Urine WBC (Auto) 19 Urine RBC (Auto) 2 Urine Mucus Rare Random Vancomycin 12/04/18 12/04/18 05:30 05:58 WBC RBC Hgb Hct MCV MCH MCHC RDW Plt Count MPV Total Counted Neutrophils % (Manual) Band Neutrophils % Lymphocytes % (Manual) Monocytes % (Manual) Eosinophils % (Manual) Platelet Estimate Platelet Comment Poikilocytosis Basophilic Stippling Tear Drop Cells Ovalocytes Acanthocytes (Spur) Sodium 140 Potassium 3.2 L Chloride 103 Carbon Dioxide 27 Anion Gap 10 BUN 50 H Creatinine 1.6 H Creat Clearance w eGFR 43.60 POC Glucometer 174 Random Glucose 210 H Calcium 6.7 L* Phosphorus 3.0 Magnesium 2.1 Total Bilirubin 0.9 AST 53 H ALT 66 H Alkaline Phosphatase 112 Total Protein 6.1 L Albumin 1.9 L Urine Color Urine Appearance Urine pH Ur Specific [place] Urine Protein Urine Glucose (UA) Urine Ketones Urine Blood Urine Nitrite Urine Bilirubin Urine Urobilinogen Ur Leukocyte Esterase Urine WBC (Auto) Urine RBC (Auto) Urine Mucus Random Vancomycin Active Medications Generic Name Dose Route Start Last Admin Trade Name Freq PRN Reason Stop Dose Admin Albuterol Sulfate 1 amp 11/29/18 21:21 12/02/18 20:17 Ventolin 0.083% Nebulizer Soln - NEB 1 amp Q4H PRN Administration SHORT OF BREATH/WHEEZING Allopurinol 300 mg 12/03/18 10:57 Zyloprim - NGT DAILY [facility] Aspirin 81 mg 12/03/18 10:58 Asa - NGT DAILY [facility] Atorvastatin Calcium 80 mg 12/03/18 22:00 12/03/18 21:36 Lipitor - NGT 80 mg HS YAKOV Administration Buspirone HCl 15 mg 12/03/18 10:58 12/03/18 22:30 Buspar - NGT Not Given BID [facility] Calcium Carbonate/Cholecalciferol 2 tab 12/03/18 10:58 Os-Kyler 500+D - NGT DAILY [facility] Chlorhexidine Gluconate 1 applic 11/26/18 22:00 12/03/18 21:59 Hibiclens For Decolonization - TP 1 applic HS YAKOV Administration Chlorhexidine Gluconate 15 ml 11/27/18 22:00 12/03/18 21:37 Peridex - MM 15 ml BID YAKOV Administration Docusate Sodium 100 mg 11/26/18 08:54 Colace - PO BID PRN CONSTIPATION Furosemide 40 mg 11/29/18 14:45 12/04/18 06:32 Lasix Injection - IVPUSH 40 mg BID@0600,1400 YAKOV Administration Gabapentin 100 mg 12/03/18 14:00 12/04/18 06:33 Neurontin - NGT Not Given TID [facility] Heparin Sodium (Porcine) 5,000 unit 11/30/18 22:00 12/04/18 06:32 Heparin - SQ 5,000 unit TID [facility] Administration Propofol 1,000,000 mcg in 100 mls @ 9.349 mls/hr 11/26/18 08:54 12/04/18 06: 33 Diprivan - IVPB 50 mcg/kg/min TITR YAKOV 31.162 mls/hr Titration Protocol 15 MCG/KG/MIN Vancomycin HCl 1,250 mg/ 250 mls @ 250 mls/2 hr 12/03/18 11:15 12/03/18 14:17 Dextrose IVPB 250 mls/2 hr Q24H YAKOV Administration Protocol Insulin Aspart 1 vial 12/02/18 07:30 12/04/18 06:33 Novolog Vial Sliding Scale - SQ 2 units TID [facility] Administration Protocol Insulin Detemir 20 units 11/30/18 21:42 12/03/18 21:52 Levemir Vial SQ 20 units HS [facility] Administration Methadone HCl 40 mg 12/04/18 06:00 12/04/18 06:31 Dolophine - NGT Not Given DAILY@0600 [facility] Metoclopramide HCl 10 mg 11/29/18 21:00 12/04/18 03:31 Reglan Injection - IVPUSH 10 mg Q6H-IV YAKOV Administration Pantoprazole Sodium 40 mg 12/02/18 11:45 12/03/18 09:41 Protonix Iv IVPUSH 40 mg DAILY YAKOV Administration Polyethylene Glycol 17 gm 12/03/18 10:58 Miralax (For Daily Use) - NGT DAILY [facility] Tiotropium [place] 2 puff 11/26/18 10:00 12/03/18 09:42 Spiriva Respimat IH Not Given DAILY [facility] Valacyclovir HCl 500 mg 12/03/18 10:58 Valtrex - NGT DAILY [facility] ASSESSMENT/PLAN: Patient is a 63 year old male with history of hypertension, hyperlipidemia, insulin dependent diabetes mellitus, peripheral vascular disease, opoid dependence, multiple myeloma, admitted to ICU for acute hypoxic respiratory failure. Neurological -Patient is sedated with Propofol. Daily sedation vacations. -Methadone 40mg PO daily -Monitor for signs of mental status change Pulmonary -Acute hypoxic, hypoxemic respiratory failure -Pneumonia, +MRSA nares colonization -Ventilator settings: RR 24, tidal volume 450, PEEP 8, FiO2 40%. -Follow daily chest radiograph -Vancomycin 1250mg IV daily -Patient completed 7 days course of Zosyn -Lasix 40mg IV BID -DuoNebs Q6H, Spiriva 2 puffs IH daily -Maintain oxygen saturation greater than 90% Cardiovascular -Hypertension -NSTEMI -Troponin peaked at 21.6. Discussed with Cardiology, who recommends continuing Aspirin at this time. No indication for Heparin drip -Heparin drip discontinued -Aspirin 81mg GT daily -Metoprolol 25mg GT daily -Cardiac ECHO shows EF 45-50%, mild global hypokinesis, grade I diastolic dysfunction. -Arterial doppler right upper extremity shows decreased monophasic flow within right radial and ulnar arteries. -Vascular surgery consult appreciated. No surgical intervention indicated at this time. Gastrointestinal -Constipation -History of Hepatitis C -HCV RNA PCR negative -No episodes of emesis overnight. Large bowel movement without melena, hematochezia. -GI consult (Dr. Up) appreciated. -Tube feeds reinstated, after minimal residuals with NG tube clamping trial -Protonix 40mg IV daily -Metoclopramide 10mg IV Q6H -Monitor serial occult blood testing Endocrine -Insulin dependent diabetes mellitus -Insulin sliding scale TID -Fingerstick blood glucose monitoring TID -Gabapentin 100mg PO TID for peripheral neuropathy Hematologic -Multiple Myeloma -S/P 1 unit PRBC transfusion -Maintain Hb above 8.0 -Multiple myeloma treatment, per hematology -Hematology recommendations appreciated Renal -DARIO -improving Hypocalcemia -Repleted with Calcium Gluconate 10% -Nephrology recommendations (Dr. Cates) appreciated FEN -Fluids: No IV fluids -Electrolytes: Hypocalcemia. Follow CMP; replete as necessary. -Nutrition: NPO Prophylaxis -Heparin 5000u subq TID Lines, Tubes, Drains -Massey catheter changed 12/02/2018 Disposition -Continue care in ICU. Patient is Full Code Visit type - Emergency Visit Emergency Visit: Yes ED Registration Date: 11/20/18 Care time: The patient presented to the Emergency Department on the above date and was hospitalized for further evaluation of their emergent condition. - New Patient This patient is new to me today: No - Critical Care Critical Care patient: Yes Total Critical Care Time (in minutes): 35 Critical Care Statement: The care of this patient involved high complexity decision making to prevent further life threatening deterioration of the patient 's condition and/or to evaluate & treat vital organ system(s) failure or risk of failure. - Discharge Referral Referred to [facility] No
--- NOTE | 2018-12-04 08:45 | PN ---
Progress Note (short form) - Note Progress Note: remains intubated no more fevers Vital Signs Period Temp Pulse Resp BP Sys/Andre Pulse Ox Last 24 Hr 99 F-99.1 F 62-72 16-26 104-145/60-73 92-100 cor-rrr lungs decreased bs at bases abd soft,nt ext no edema CBC, BMP 12/04/18 05:30 12/04/18 05:30 Microbiology 12/03/18 11:30 Sputum - Endotrachea Suction/Ventilator Sputum Culture - Preliminary Lactose Fermenting Neg Bacilli 12/02/18 20:30 Blood - Peripheral Venous Blood Culture - Preliminary NO GROWTH OBTAINED AFTER 24 HOURS, INCUBATION TO CONTINUE FOR 4 DAYS. 12/02/18 19:30 Blood - Peripheral Venous Blood Culture - Preliminary NO GROWTH OBTAINED AFTER 24 HOURS, INCUBATION TO CONTINUE FOR 4 DAYS. 11/25/18 20:10 Blood - Peripheral Venous Blood Culture - Final NO GROWTH AFTER 5 DAYS INCUBATION 11/25/18 20:00 Blood - Peripheral Venous Blood Culture - Final NO GROWTH AFTER 5 DAYS INCUBATION 11/28/18 10:40 Sputum - Endotrachea Suction/Ventilator Gram Stain - Final 11/28/18 10:40 Sputum - Endotrachea Suction/Ventilator Sputum Culture - Final S Aureus 11/25/18 20:10 Urine - Urine Massey Urine Culture - Final NO GROWTH OBTAINED 11/26/18 13:20 Urine For Antigen Detection Legionella Antigen - Final 11/26/18 13:20 Urine For Antigen Detection Streptococcus pneumoniae Antigen (M - Final 11/20/18 08:11 Urine - Urine Clean Catch Urine Culture - Final NO GROWTH OBTAINED Current Medications Albuterol Sulfate (Ventolin 0.083% Nebulizer Soln -) 1 amp NEB Q4H PRN PRN Reason: SHORT OF BREATH/WHEEZING Last Admin: 12/02/18 20:17 Dose: 1 amp Allopurinol (Zyloprim -) 300 mg NGT DAILY [facility] Aspirin (Asa -) 81 mg NGT DAILY [facility] Atorvastatin Calcium (Lipitor -) 80 mg NGT HS [facility] Last Admin: 12/03/18 21:36 Dose: 80 mg Buspirone HCl (Buspar -) 15 mg NGT BID [facility] Last Admin: 12/03/18 22:30 Dose: Not Given Calcium Carbonate/Cholecalciferol (Os-Kyler 500+D -) 2 tab NGT DAILY [facility] Chlorhexidine Gluconate (Hibiclens For Decolonization -) 1 applic TP HS [facility] Last Admin: 12/03/18 21:59 Dose: 1 applic Chlorhexidine Gluconate (Peridex -) 15 ml MM BID [facility] Last Admin: 12/03/18 21:37 Dose: 15 ml Docusate Sodium (Colace -) 100 mg PO BID PRN PRN Reason: CONSTIPATION Furosemide (Lasix Injection -) 40 mg IVPUSH BID@0600,1400 [facility] Last Admin: 12/04/18 06:32 Dose: 40 mg Gabapentin (Neurontin -) 100 mg NGT TID [facility] Last Admin: 12/04/18 06:33 Dose: Not Given Heparin Sodium (Porcine) (Heparin -) 5,000 unit SQ TID [facility] Last Admin: 12/04/18 06:32 Dose: 5,000 unit Propofol (Diprivan -) 1,000,000 mcg in 100 mls @ 9.349 mls/hr IVPB TITR [facility]; Protocol Last Titration: 12/04/18 06:33 Dose: 50 mcg/kg/min, 31.162 mls/hr Vancomycin HCl 1,250 mg/ (Dextrose) 250 mls @ 250 mls/2 hr IVPB Q24H [facility]; Protocol Last Admin: 12/03/18 14:17 Dose: 250 mls/2 hr Insulin Aspart (Novolog Vial Sliding Scale -) 1 vial SQ TID [facility]; Protocol Last Admin: 12/04/18 06:33 Dose: 2 units Insulin Detemir (Levemir Vial) 20 units SQ [facility] Last Admin: 12/03/18 21:52 Dose: 20 units Methadone HCl (Dolophine -) 40 mg NGT DAILY@0600 [facility] Last Admin: 12/04/18 06:31 Dose: Not Given Metoclopramide HCl (Reglan Injection -) 10 mg IVPUSH Q6H-IV [facility] Last Admin: 12/04/18 03:31 Dose: 10 mg Pantoprazole Sodium (Protonix Iv) 40 mg IVPUSH DAILY [facility] Last Admin: 12/03/18 09:41 Dose: 40 mg Polyethylene Glycol (Miralax (For Daily Use) -) 17 gm NGT DAILY [facility] Tiotropium [place] (Spiriva Respimat) 2 puff IH DAILY [facility] Last Admin: 12/03/18 09:42 Dose: Not Given Valacyclovir HCl (Valtrex -) 500 mg NGT DAILY [facility] a/p no further fevers respiratory failure left lung pneumonia sputum with MRSA clinically improving better oxygenation continue vancomycin f/u blood cultures repeat cxray ?d/c onel multiple myeloma/vertebral fractures renal insufficiency- coffee ground emesis- hemoglobin stable +troponins-cardiology f/u noted
--- NOTE | 2018-12-04 09:32 | PN ---
Progress Note, Physician Chief Complaint: NO CHANGE FROM YESTERDAY STILL INTUBATED - Current Medication List Current Medications: Active Medications Albuterol Sulfate (Ventolin 0.083% Nebulizer Soln -) 1 amp NEB Q4H PRN PRN Reason: SHORT OF BREATH/WHEEZING Last Admin: 12/02/18 20:17 Dose: 1 amp Allopurinol (Zyloprim -) 300 mg NGT DAILY [facility] Aspirin (Asa -) 81 mg NGT DAILY [facility] Atorvastatin Calcium (Lipitor -) 80 mg NGT HS [facility] Last Admin: 12/03/18 21:36 Dose: 80 mg Buspirone HCl (Buspar -) 15 mg NGT BID [facility] Last Admin: 12/03/18 22:30 Dose: Not Given Calcium Carbonate/Cholecalciferol (Os-Kyler 500+D -) 2 tab NGT DAILY [facility] Chlorhexidine Gluconate (Hibiclens For Decolonization -) 1 applic TP HS [facility] Last Admin: 12/03/18 21:59 Dose: 1 applic Chlorhexidine Gluconate (Peridex -) 15 ml MM BID [facility] Last Admin: 12/03/18 21:37 Dose: 15 ml Docusate Sodium (Colace -) 100 mg PO BID PRN PRN Reason: CONSTIPATION Furosemide (Lasix Injection -) 40 mg IVPUSH BID@0600,1400 [facility] Last Admin: 12/04/18 06:32 Dose: 40 mg Gabapentin (Neurontin -) 100 mg NGT TID [facility] Last Admin: 12/04/18 06:33 Dose: Not Given Heparin Sodium (Porcine) (Heparin -) 5,000 unit SQ TID [facility] Last Admin: 12/04/18 06:32 Dose: 5,000 unit Propofol (Diprivan -) 1,000,000 mcg in 100 mls @ 9.349 mls/hr IVPB TITR [facility]; Protocol Last Titration: 12/04/18 06:33 Dose: 50 mcg/kg/min, 31.162 mls/hr Vancomycin HCl 1,250 mg/ (Dextrose) 250 mls @ 250 mls/2 hr IVPB Q24H [facility]; Protocol Last Admin: 12/03/18 14:17 Dose: 250 mls/2 hr Insulin Aspart (Novolog Vial Sliding Scale -) 1 vial SQ TID [facility]; Protocol Last Admin: 12/04/18 06:33 Dose: 2 units Insulin Detemir (Levemir Vial) 20 units SQ HS [facility] Last Admin: 12/03/18 21:52 Dose: 20 units Methadone HCl (Dolophine -) 40 mg NGT DAILY@0600 [facility] Last Admin: 12/04/18 06:31 Dose: Not Given Metoclopramide HCl (Reglan Injection -) 10 mg IVPUSH Q6H-IV [facility] Last Admin: 12/04/18 03:31 Dose: 10 mg Pantoprazole Sodium (Protonix Iv) 40 mg IVPUSH DAILY [facility] Last Admin: 12/03/18 09:41 Dose: 40 mg Polyethylene Glycol (Miralax (For Daily Use) -) 17 gm NGT DAILY [facility] Tiotropium [place] (Spiriva Respimat) 2 puff IH DAILY [facility] Last Admin: 12/03/18 09:42 Dose: Not Given Valacyclovir HCl (Valtrex -) 500 mg NGT DAILY [facility] - Objective Vital Signs: Vital Signs Temperature 99.1 F 12/04/18 08:00 Pulse Rate 82 12/04/18 08:00 Respiratory Rate 29 H 12/04/18 08:48 Blood Pressure 145/77 12/04/18 08:00 O2 Sat by Pulse Oximetry (%) 96 12/03/18 21:30 Constitutional: Yes: Other Cardiovascular: Yes: Regular Rate and Rhythm Respiratory: Yes: Diminished, Intubated, Mechanically Ventilated Gastrointestinal: Yes: Soft Genitourinary: Yes: Massey Present Musculoskeletal: Yes: Muscle Weakness Labs: CBC, BMP 12/04/18 05:30 12/04/18 05:30 INR, PTT INR 1.19 (0.83-1.09) H 11/30/18 05:30 Fibrinogen > 500.0 mg/dL (238-498) H 11/25/18 20:00 Problem List - Problems (1) Anemia Code(s): D64.9 - ANEMIA, UNSPECIFIED (2) CKD (chronic kidney disease) Code(s): N18.9 - CHRONIC KIDNEY DISEASE, UNSPECIFIED (3) Diabetes Code(s): E11.9 - TYPE 2 DIABETES MELLITUS WITHOUT COMPLICATIONS Qualifiers: Diabetes mellitus type: type 2 (4) Diabetic gastroparesis Code(s): E11.43 - TYPE 2 DIABETES W DIABETIC AUTONOMIC (POLY)NEUROPATHY; K31.84 - GASTROPARESIS (5) Diabetic neuropathy Code(s): E11.40 - TYPE 2 DIABETES MELLITUS WITH DIABETIC NEUROPATHY, UNSP (6) Diabetic retinopathy Code(s): E11.319 - TYPE 2 DIABETES W UNSP DIABETIC RTNOP W/O MACULAR EDEMA (7) Edema Code(s): R60.9 - EDEMA, UNSPECIFIED (8) Pulmonary congestion Code(s): R09.89 - OTH SYMPTOMS AND SIGNS INVOLVING THE CIRC AND RESP SYSTEMS (9) Respiratory failure Code(s): J96.90 - RESPIRATORY FAILURE, UNSP, UNSP W HYPOXIA OR HYPERCAPNIA (10) Hepatitis C Code(s): B19.20 - UNSPECIFIED VIRAL HEPATITIS C WITHOUT HEPATIC COMA Assessment/Plan VENT SUPPORT AGREE WITH PULMONARY WEANING TRIAL FEEDINGS VIA NGT CHECKING ELECTROLYTE CULTURES REVIEWED SSI/BGM PPI AC/DVT PROPHYLAXIS FAMILY DISCUSSION FOR 30 MINUTES WITH GOALS OF CARE
[2018-12-04] MEDS ORDERED: PT OWN MED DRAWER 7, Y5N ONE ×2 (10:12→20:55)
--- NOTE | 2018-12-04 10:15 | PN ---
Teaching Attending Note Name of Resident: Tarun Guzmán ATTENDING PHYSICIAN STATEMENT I saw and evaluated the patient. I reviewed the resident's note and discussed the case with the resident. I agree with the resident's findings and plan as documented. SUBJECTIVE: Patient seen and examined in the ICU. Remains intubated and sedated. AC mode of vent, 40% and PEEP 8. CXR: pending Intake & Output 12/01/18 12/02/18 12/03/18 12/04/18 23:59 23:59 23:59 23:59 Intake Total 4851 853 2311 822 Output Total 2800 2500 2500 1200 Balance -1380 -1748 -935 -378 Weight 225 lb 2 oz 227 lb 1.218 oz 217 lb 1.6 oz Last Vital Signs Temp Pulse Resp BP Pulse Ox 99.1 F 82 29 H 145/77 96 12/04/18 08:00 12/04/18 08:00 12/04/18 08:48 12/04/18 08:00 12/03/18 21:30 Active Medications Albuterol Sulfate (Ventolin 0.083% Nebulizer Soln -) 1 amp NEB Q4H PRN PRN Reason: SHORT OF BREATH/WHEEZING Last Admin: 12/02/18 20:17 Dose: 1 amp Allopurinol (Zyloprim -) 300 mg NGT DAILY [facility] Aspirin (Asa -) 81 mg NGT DAILY [facility] Atorvastatin Calcium (Lipitor -) 80 mg NGT HS [facility] Last Admin: 12/03/18 21:36 Dose: 80 mg Buspirone HCl (Buspar -) 15 mg NGT BID [facility] Last Admin: 12/03/18 22:30 Dose: Not Given Calcium Carbonate/Cholecalciferol (Os-Kyler 500+D -) 2 tab NGT DAILY [facility] Chlorhexidine Gluconate (Hibiclens For Decolonization -) 1 applic TP HS [facility] Last Admin: 12/03/18 21:59 Dose: 1 applic Chlorhexidine Gluconate (Peridex -) 15 ml MM BID [facility] Last Admin: 12/03/18 21:37 Dose: 15 ml Docusate Sodium (Colace -) 100 mg PO BID PRN PRN Reason: CONSTIPATION Furosemide (Lasix Injection -) 40 mg IVPUSH BID@0600,1400 [facility] Last Admin: 12/04/18 06:32 Dose: 40 mg Gabapentin (Neurontin -) 100 mg NGT TID [facility] Last Admin: 12/04/18 06:33 Dose: Not Given Heparin Sodium (Porcine) (Heparin -) 5,000 unit SQ TID [facility] Last Admin: 12/04/18 06:32 Dose: 5,000 unit Propofol (Diprivan -) 1,000,000 mcg in 100 mls @ 9.349 mls/hr IVPB TITR [facility]; Protocol Last Titration: 12/04/18 06:33 Dose: 50 mcg/kg/min, 31.162 mls/hr Vancomycin HCl 1,250 mg/ (Dextrose) 250 mls @ 250 mls/2 hr IVPB Q24H [facility]; Protocol Last Admin: 12/03/18 14:17 Dose: 250 mls/2 hr Insulin Aspart (Novolog Vial Sliding Scale -) 1 vial SQ TID [facility]; Protocol Last Admin: 12/04/18 06:33 Dose: 2 units Insulin Detemir (Levemir Vial) 20 units SQ HS [facility] Last Admin: 12/03/18 21:52 Dose: 20 units Methadone HCl (Dolophine -) 40 mg NGT DAILY@0600 [facility] Last Admin: 12/04/18 06:31 Dose: Not Given Metoclopramide HCl (Reglan Injection -) 10 mg IVPUSH Q6H-IV [facility] Last Admin: 12/04/18 03:31 Dose: 10 mg Pantoprazole Sodium (Protonix Iv) 40 mg IVPUSH DAILY [facility] Last Admin: 12/03/18 09:41 Dose: 40 mg Polyethylene Glycol (Miralax (For Daily Use) -) 17 gm NGT DAILY [facility] Tiotropium [place] (Spiriva Respimat) 2 puff IH DAILY [facility] Last Admin: 12/03/18 09:42 Dose: Not Given Valacyclovir HCl (Valtrex -) 500 mg NGT DAILY [facility] Gen: sedated, vented HEENT: PERRL PULM: coarse crackles at the bases, no wheeze CV: S1S2, (-) murmur ABD: soft, (+) BS, not distended EXT; (+) edema [employer]: sedated Laboratory Results - last 24 hr 12/03/18 12/03/18 12/03/18 05:30 05:30 11:32 WBC RBC Hgb Hct MCV MCH MCHC RDW Plt Count MPV Total Counted 100 Neutrophils % (Manual) 84.0 H Band Neutrophils % 3.0 Lymphocytes % (Manual) 4.0 L Monocytes % (Manual) 2 L Eosinophils % (Manual) 2.0 Platelet Estimate Adequate Platelet Comment Giant platelets Poikilocytosis 2+ Basophilic Stippling 1+ Tear Drop Cells 1+ Ovalocytes 1+ Acanthocytes (Spur) 1+ Sodium Potassium Chloride Carbon Dioxide Anion Gap BUN Creatinine Creat Clearance w eGFR POC Glucometer 196 Random Glucose Calcium Phosphorus Magnesium Total Bilirubin AST ALT Alkaline Phosphatase Total Protein Albumin Urine Color Urine Appearance Urine pH Ur Specific [place] Urine Protein Urine Glucose (UA) Urine Ketones Urine Blood Urine Nitrite Urine Bilirubin Urine Urobilinogen Ur Leukocyte Esterase Urine WBC (Auto) Urine RBC (Auto) Urine Mucus Random Vancomycin 13.9 L 12/03/18 12/03/18 12/04/18 14:00 21:46 05:30 WBC 5.0 RBC 2.95 L Hgb 9.1 L Hct 25.4 L MCV 86.1 MCH 30.9 MCHC 35.9 RDW 18.0 H Plt Count 200 MPV 7.1 L Total Counted Neutrophils % (Manual) Band Neutrophils % Lymphocytes % (Manual) Monocytes % (Manual) Eosinophils % (Manual) Platelet Estimate Platelet Comment Poikilocytosis Basophilic Stippling Tear Drop Cells Ovalocytes Acanthocytes (Spur) Sodium Potassium Chloride Carbon Dioxide Anion Gap BUN Creatinine Creat Clearance w eGFR POC Glucometer 179 Random Glucose Calcium Phosphorus Magnesium Total Bilirubin AST ALT Alkaline Phosphatase Total Protein Albumin Urine Color Yellow Urine Appearance Slcloudy Urine pH 5.0 Ur Specific [place] 1.018 Urine Protein 3+ H Urine Glucose (UA) Negative Urine Ketones Negative Urine Blood Negative Urine Nitrite Negative Urine Bilirubin Negative Urine Urobilinogen Negative Ur Leukocyte Esterase 1+ H Urine WBC (Auto) 19 Urine RBC (Auto) 2 Urine Mucus Rare Random Vancomycin 12/04/18 12/04/18 05:30 05:58 WBC RBC Hgb Hct MCV MCH MCHC RDW Plt Count MPV Total Counted Neutrophils % (Manual) Band Neutrophils % Lymphocytes % (Manual) Monocytes % (Manual) Eosinophils % (Manual) Platelet Estimate Platelet Comment Poikilocytosis Basophilic Stippling Tear Drop Cells Ovalocytes Acanthocytes (Spur) Sodium 140 Potassium 3.2 L Chloride 103 Carbon Dioxide 27 Anion Gap 10 BUN 50 H Creatinine 1.6 H Creat Clearance w eGFR 43.60 POC Glucometer 174 Random Glucose 210 H Calcium 6.7 L* Phosphorus 3.0 Magnesium 2.1 Total Bilirubin 0.9 AST 53 H ALT 66 H Alkaline Phosphatase 112 Total Protein 6.1 L Albumin 1.9 L Urine Color Urine Appearance Urine pH Ur Specific [place] Urine Protein Urine Glucose (UA) Urine Ketones Urine Blood Urine Nitrite Urine Bilirubin Urine Urobilinogen Ur Leukocyte Esterase Urine WBC (Auto) Urine RBC (Auto) Urine Mucus Random Vancomycin ASSESSMENT/PLAN: Acute Respiratory Failure Suspected ARDS physiology: Improving (?) methadone withdrawal CAP Suspected Acute Pulmonary Edema HTN Troponemia IIDM DARIO on CKD Methadone maintenance Sedation vacation and wean trials as tolerated: hope to extubate by tomorrow ABX per ID Monitor off systemic steroids Strict I & O BD TX Follow CXR in AM Transfusion threshold: Hgb = 8 Enteral feeds Lasix BID Requires ICU monitoring Dr Culver Critical care time spent in reviewing chart, evaluating patient and formulating plan - 36 minutes.
[2018-12-04] MEDS: VANCOMYCIN HCL 1,250 MG in DEXTROSE 5%-WATER - 250 ML IVPB SCH (10:35)
[2018-12-04] MEDS: PANTOPRAZOLE SODIUM 40 MG VIAL IVPUSH SCH (10:36)
[2018-12-04] MEDS: PROPOFOL 1,000,000 MCG/100 ML VIAL IVPB SCH ×3 (10:36→21:09)
[2018-12-04] MEDS: CALCIUM 500MG/VIT-D 200 UNITS COMBO TABLET (FP) NGT SCH (10:37)
[2018-12-04] MEDS: ASPIRIN 81 MG CHEWABLE TABLETS NGT SCH (10:38)
[2018-12-04] MEDS: valACYclovir HCL 500 MG TABLET (FP) NGT SCH (10:38)
[2018-12-04] MEDS: TIOTROPIUM BROMIDE 2.5 MCG (SPIRIVA) RESPIMAT INHALER IH SCH (10:38)
[2018-12-04] MEDS: ALLOPURINOL 300 MG TABLET (FP) NGT SCH (10:38)
[2018-12-04] MEDS: POLYETHYLENE GLYCOL 3350 119 GM BTL NGT SCH (10:39)
[2018-12-04] MEDS: CHLORHEXIDINE GLUCONATE 0.12% 15ML CUP MM SCH ×2 (10:39→21:15)
[2018-12-04] MEDS: busPIRone HCL 5 MG TABLET NGT SCH ×2 (10:40→21:13)
[2018-12-04] MEDS ORDERED: KCL 10 MEQ IVPB 10 MEQ/100 ML INFUS.BAG IVPB SCH ×2 (14:00→18:15)
--- NOTE | 2018-12-04 14:24 | PN ---
Progress Note, Physician History of Present Illness: seen and examined today in nad. family at bedside. more alert today sedation was reduced, remains intubated. - Current Medication List Current Medications: Active Medications Albuterol Sulfate (Ventolin 0.083% Nebulizer Soln -) 1 amp NEB Q4H PRN PRN Reason: SHORT OF BREATH/WHEEZING Last Admin: 12/02/18 20:17 Dose: 1 amp Allopurinol (Zyloprim -) 300 mg NGT DAILY [facility] Last Admin: 12/04/18 10:38 Dose: 300 mg Aspirin (Asa -) 81 mg NGT DAILY [facility] Last Admin: 12/04/18 10:38 Dose: 81 mg Atorvastatin Calcium (Lipitor -) 80 mg NGT HS [facility] Last Admin: 12/03/18 21:36 Dose: 80 mg Buspirone HCl (Buspar -) 15 mg NGT BID [facility] Last Admin: 12/04/18 10:40 Dose: Not Given Calcium Carbonate/Cholecalciferol (Os-Kyler 500+D -) 2 tab NGT DAILY [facility] Last Admin: 12/04/18 10:37 Dose: 2 tab Chlorhexidine Gluconate (Hibiclens For Decolonization -) 1 applic TP HS [facility] Last Admin: 12/03/18 21:59 Dose: 1 applic Chlorhexidine Gluconate (Peridex -) 15 ml MM BID [facility] Last Admin: 12/04/18 10:39 Dose: 15 ml Docusate Sodium (Colace -) 100 mg PO BID PRN PRN Reason: CONSTIPATION Furosemide (Lasix Injection -) 40 mg IVPUSH BID@0600,1400 [facility] Last Admin: 12/04/18 13:24 Dose: 40 mg Gabapentin (Neurontin -) 100 mg NGT TID [facility] Last Admin: 12/04/18 13:24 Dose: 100 mg Heparin Sodium (Porcine) (Heparin -) 5,000 unit SQ TID [facility] Last Admin: 12/04/18 13:24 Dose: 5,000 unit Propofol (Diprivan -) 1,000,000 mcg in 100 mls @ 9.349 mls/hr IVPB TITR [facility]; Protocol Last Admin: 12/04/18 10:36 Dose: 50 mcg/kg/min, 31.162 mls/hr Vancomycin HCl 1,250 mg/ (Dextrose) 250 mls @ 250 mls/2 hr IVPB Q24H [facility]; Protocol Last Admin: 12/04/18 10:35 Dose: 250 mls/2 hr Potassium Chloride (Potassium Chloride 10 Meq Premix Ivpb -) 10 meq in 100 mls @ 100 mls/hr IVPB Q60M [facility] Stop: 12/04/18 14:59 Last Admin: 12/04/18 14:17 Dose: 100 mls/hr Insulin Aspart (Novolog Vial Sliding Scale -) 1 vial SQ TID [facility]; Protocol Last Admin: 12/04/18 13:24 Dose: 4 units Insulin Detemir (Levemir Vial) 20 units SQ HS [facility] Last Admin: 12/03/18 21:52 Dose: 20 units Methadone HCl (Dolophine -) 40 mg NGT DAILY@0600 [facility] Last Admin: 12/04/18 06:31 Dose: Not Given Metoclopramide HCl (Reglan Injection -) 10 mg IVPUSH Q6H-IV [facility] Last Admin: 12/04/18 14:17 Dose: 10 mg Pantoprazole Sodium (Protonix Iv) 40 mg IVPUSH DAILY [facility] Last Admin: 12/04/18 10:36 Dose: 40 mg Polyethylene Glycol (Miralax (For Daily Use) -) 17 gm NGT DAILY [facility] Last Admin: 12/04/18 10:39 Dose: Not Given Tiotropium [place] (Spiriva Respimat) 2 puff IH DAILY [facility] Last Admin: 12/04/18 10:38 Dose: Not Given Valacyclovir HCl (Valtrex -) 500 mg NGT DAILY [facility] Last Admin: 12/04/18 10:38 Dose: 500 mg - Objective Vital Signs: Vital Signs Temperature 99.1 F 12/04/18 08:00 Pulse Rate 88 12/04/18 12:00 Respiratory Rate 27 H 12/04/18 12:00 Blood Pressure 134/71 12/04/18 12:00 O2 Sat by Pulse Oximetry (%) 96 12/03/18 21:30 Constitutional: Yes: No Distress, Calm Eyes: Yes: Conjunctiva Clear, EOM Intact, PERRL HENT: Yes: Atraumatic, Normocephalic Neck: Yes: Supple Cardiovascular: Yes: Regular Rate and Rhythm, S1, S2. No: Bradycardia, Tachycardia, Pulse Irregular, Bruit, JVD, Gallop, Murmur, Rub, S3, S4, Varicosities Respiratory: Yes: Regular, Diminished, Intubated, Mechanically Ventilated. No: Rales, Rhonchi, SOB, Wheezes Gastrointestinal: Yes: Normal Bowel Sounds, Soft Extremities: Yes: WNL Edema: No Peripheral Pulses WNL: Yes Labs: CBC, BMP 12/04/18 05:30 12/04/18 05:30 INR, PTT INR 1.19 (0.83-1.09) H 11/30/18 05:30 Fibrinogen > 500.0 mg/dL (238-498) H 11/25/18 20:00 - ....Imaging Chest X-ray: Report Reviewed, Image Reviewed EKG: Report Reviewed, Image Reviewed Other: Report Reviewed, Image Reviewed (tele-nsr, no sig arrhythmias) Assessment/Plan The patient is a 63-year-old man, with a history of diabetes, hypertension, hyperlipidemia, peripheral vascular disease, hepatitis C, opioid abuse, on methadone, multiple myeloma, who was admitted with nausea vomiting and abdominal pain with constipation. Developed acute respiratory distress, was intubated and transferred to the ICU. Troponins found to be elevated. There were ECG changes. remains intubated and sedated. Echo is unchanged from July 2018. On IV lasix bid, decrease as tolerates Transfuse as needed, wean as per ICU team. Conservative cardiac care. He is not a candidate for cardiac cath. LA is due to demand ischemia, no change in echo, would defer cardiac workup at this time. Cont ASA and Lipitor
--- NOTE | 2018-12-04 19:06 | PN ---
Progress Note, Physician History of Present Illness: Pt seen and examined at bedside. He remains in the ICU. He remains intubated. - Current Medication List Current Medications: Active Medications Albuterol Sulfate (Ventolin 0.083% Nebulizer Soln -) 1 amp NEB Q4H PRN PRN Reason: SHORT OF BREATH/WHEEZING Last Admin: 12/02/18 20:17 Dose: 1 amp Allopurinol (Zyloprim -) 300 mg NGT DAILY [facility] Last Admin: 12/04/18 10:38 Dose: 300 mg Aspirin (Asa -) 81 mg NGT DAILY [facility] Last Admin: 12/04/18 10:38 Dose: 81 mg Atorvastatin Calcium (Lipitor -) 80 mg NGT HS [facility] Last Admin: 12/03/18 21:36 Dose: 80 mg Buspirone HCl (Buspar -) 15 mg NGT BID [facility] Last Admin: 12/04/18 10:40 Dose: Not Given Calcium Carbonate/Cholecalciferol (Os-Kyler 500+D -) 2 tab NGT DAILY [facility] Last Admin: 12/04/18 10:37 Dose: 2 tab Chlorhexidine Gluconate (Hibiclens For Decolonization -) 1 applic TP HS [facility] Last Admin: 12/03/18 21:59 Dose: 1 applic Chlorhexidine Gluconate (Peridex -) 15 ml MM BID [facility] Last Admin: 12/04/18 10:39 Dose: 15 ml Docusate Sodium (Colace -) 100 mg PO BID PRN PRN Reason: CONSTIPATION Furosemide (Lasix Injection -) 40 mg IVPUSH BID@0600,1400 [facility] Last Admin: 12/04/18 13:24 Dose: 40 mg Gabapentin (Neurontin -) 100 mg NGT TID [facility] Last Admin: 12/04/18 13:24 Dose: 100 mg Heparin Sodium (Porcine) (Heparin -) 5,000 unit SQ TID [facility] Last Admin: 12/04/18 13:24 Dose: 5,000 unit Propofol (Diprivan -) 1,000,000 mcg in 100 mls @ 9.349 mls/hr IVPB TITR [facility]; Protocol Last Admin: 12/04/18 18:54 Dose: 50 mcg/kg/min, 31.162 mls/hr Vancomycin HCl 1,250 mg/ (Dextrose) 250 mls @ 250 mls/2 hr IVPB Q24H [facility]; Protocol Last Admin: 12/04/18 10:35 Dose: 250 mls/2 hr Potassium Chloride (Potassium Chloride 10 Meq Premix Ivpb -) 10 meq in 100 mls @ 100 mls/hr IVPB Q60M [facility] Stop: 12/04/18 19:14 Last Admin: 12/04/18 18:58 Dose: 100 mls/hr Insulin Aspart (Novolog Vial Sliding Scale -) 1 vial SQ TID [facility]; Protocol Last Admin: 12/04/18 13:24 Dose: 4 units Insulin Detemir (Levemir Vial) 20 units SQ HS [facility] Last Admin: 12/03/18 21:52 Dose: 20 units Methadone HCl (Dolophine -) 40 mg NGT DAILY@0600 [facility] Last Admin: 12/04/18 06:31 Dose: Not Given Metoclopramide HCl (Reglan Injection -) 10 mg IVPUSH Q6H-IV [facility] Last Admin: 12/04/18 14:17 Dose: 10 mg Pantoprazole Sodium (Protonix Iv) 40 mg IVPUSH DAILY [facility] Last Admin: 12/04/18 10:36 Dose: 40 mg Polyethylene Glycol (Miralax (For Daily Use) -) 17 gm NGT DAILY [facility] Last Admin: 12/04/18 10:39 Dose: Not Given Tiotropium [place] (Spiriva Respimat) 2 puff IH DAILY [facility] Last Admin: 12/04/18 10:38 Dose: Not Given Valacyclovir HCl (Valtrex -) 500 mg NGT DAILY [facility] Last Admin: 12/04/18 10:38 Dose: 500 mg - Objective Vital Signs: Vital Signs Temperature 99 F 12/04/18 18:00 Pulse Rate 88 12/04/18 18:00 Respiratory Rate 26 H 12/04/18 18:00 Blood Pressure 154/82 12/04/18 18:00 O2 Sat by Pulse Oximetry (%) 96 12/03/18 21:30 Constitutional: Yes: Calm Eyes: Yes: Conjunctiva Clear HENT: Yes: Atraumatic Cardiovascular: Yes: S1, S2 Respiratory: Yes: Mechanically Ventilated Gastrointestinal: Yes: Soft Genitourinary: Yes: Massey Present Musculoskeletal: Yes: Muscle Weakness Edema: Yes Edema: LUE: Trace, RUE: Trace, LLE: Trace, RLE: Trace Neurological: Yes: Lethargy Labs: CBC, BMP 12/04/18 05:30 12/04/18 05:30 INR, PTT INR 1.19 (0.83-1.09) H 11/30/18 05:30 Fibrinogen > 500.0 mg/dL (238-498) H 11/25/18 20:00 - ....Imaging Chest X-ray: Report Reviewed Problem List - Problems (1) CKD (chronic kidney disease) Code(s): N18.9 - CHRONIC KIDNEY DISEASE, UNSPECIFIED (2) Constipation Code(s): K59.00 - CONSTIPATION, UNSPECIFIED Qualifiers: Constipation type: unspecified constipation type Qualified Code(s): K59.00 - Constipation, unspecified (3) Hyponatremia Code(s): E87.1 - HYPO-OSMOLALITY AND HYPONATREMIA Assessment/Plan Current Medications Generic Name Dose Route Start Last Admin Trade Name Freq PRN Reason Stop Dose Admin Albuterol Sulfate 1 amp 11/29/18 21:21 12/02/18 20:17 Ventolin 0.083% Nebulizer Soln - NEB 1 amp Q4H PRN Administration SHORT OF BREATH/WHEEZING Allopurinol 300 mg 12/03/18 10:57 12/04/18 10:38 Zyloprim - NGT 300 mg DAILY [facility]OV Administration Aspirin 81 mg 12/03/18 10:58 12/04/18 10:38 Asa - NGT 81 mg DAILY [facility] Administration Atorvastatin Calcium 80 mg 12/03/18 22:00 12/03/18 21:36 Lipitor - NGT 80 mg HS [facility] Administration Buspirone HCl 15 mg 12/03/18 10:58 12/04/18 10:40 Buspar - NGT Not Given BID [facility] Calcium Carbonate/Cholecalciferol 2 tab 12/03/18 10:58 12/04/18 10:37 Os-Kyler 500+D - NGT 2 tab DAILY [facility] Administration Chlorhexidine Gluconate 1 applic 11/26/18 22:00 12/03/18 21:59 Hibiclens For Decolonization - TP 1 applic HS [facility] Administration Chlorhexidine Gluconate 15 ml 11/27/18 22:00 12/04/18 10:39 Peridex - MM 15 ml BID [facility] Administration Docusate Sodium 100 mg 11/26/18 08:54 Colace - PO BID PRN CONSTIPATION Furosemide 40 mg 11/29/18 14:45 12/04/18 13:24 Lasix Injection - IVPUSH 40 mg BID@0600,1400 [facility] Administration Gabapentin 100 mg 12/03/18 14:00 12/04/18 13:24 Neurontin - NGT 100 mg TID [facility] Administration Heparin Sodium (Porcine) 5,000 unit 11/30/18 22:00 12/04/18 13:24 Heparin - SQ 5,000 unit TID [facility] Administration Propofol 1,000,000 mcg in 100 mls @ 9.349 mls/hr 11/26/18 08:54 12/04/18 18: 54 Diprivan - IVPB 50 mcg/kg/min TITR [facility] 31.162 mls/hr Administration Protocol 15 MCG/KG/MIN Vancomycin HCl 1,250 mg/ 250 mls @ 250 mls/2 hr 12/03/18 11:15 12/04/18 10:35 Dextrose IVPB 250 mls/2 hr Q24H [facility] Administration Protocol Potassium Chloride 10 meq in 100 mls @ 100 mls/hr 12/04/18 18:15 12/04/18 18: 58 Potassium Chloride 10 Meq Premix Ivpb - IVPB 12/04/18 19:14 100 mls/hr Q60M [facility] Administration Insulin Aspart 1 vial 12/02/18 07:30 12/04/18 13:24 Novolog Vial Sliding Scale - SQ 4 units TID [facility] Administration Protocol Insulin Detemir 20 units 11/30/18 21:42 12/03/18 21:52 Levemir Vial SQ 20 units HS [facility] Administration Methadone HCl 40 mg 12/04/18 06:00 12/04/18 06:31 Dolophine - NGT Not Given DAILY@0600 [facility] Metoclopramide HCl 10 mg 11/29/18 21:00 12/04/18 14:17 Reglan Injection - IVPUSH 10 mg Q6H-IV [facility] Administration Pantoprazole Sodium 40 mg 12/02/18 11:45 12/04/18 10:36 Protonix Iv IVPUSH 40 mg DAILY [facility] Administration Polyethylene Glycol 17 gm 12/03/18 10:58 12/04/18 10:39 Miralax (For Daily Use) - NGT Not Given DAILY [facility] Tiotropium [place] 2 puff 11/26/18 10:00 12/04/18 10:38 Spiriva Respimat IH Not Given DAILY [facility] Valacyclovir HCl 500 mg 12/03/18 10:58 12/04/18 10:38 Valtrex - NGT 500 mg DAILY [facility] Administration Impression 1. hyponatremia 2. CKD 3. nausea and vomiting 4. htn 5. DM 6. 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 multiple myeloma 9. anemia 10. proteinuria 11. hyperkalemia 12. resp failure 13. volume overload Plan - replace potassium - monitor renal function - cxr improving - cont lasix - discussed with ICU - vent support - keep net negative - cont ICU care Dr Cates
[2018-12-04] MEDS: CHLORHEXIDINE GLUCONATE 4% CLEANSER FOR DECOLONIZATION TP SCH (21:10)
[2018-12-04] MEDS: ATORVASTATIN CA 80 MG TABLET (FP) NGT SCH (21:14)
[2018-12-04] MEDS: INSULIN (LEVEMIR) 100 UNITS/ML UNITS SQ SCH (22:23)
[2018-12-05] MEDS: PROPOFOL 1,000,000 MCG/100 ML VIAL IVPB SCH ×3 (01:00→08:56)
[2018-12-05] MEDS: METOCLOPRAMIDE HCL INJECTION 10 MG/2 ML VIAL IVPUSH SCH ×4 (03:11→20:56)
[2018-12-05] MEDS: METHADONE HCL 40 MG DISPERSABLE TABLET NGT SCH (05:59)
[2018-12-05] MEDS: GABAPENTIN 100 MG CAPSULE (FP) NGT SCH ×3 (06:00→21:57)
[2018-12-05] MEDS: HEPARIN NA (PORCINE) 5,000 UNITS/ML 1ML VIAL SQ SCH ×3 (06:00→21:55)
[2018-12-05] MEDS: INSULIN SLIDING SCALE (NOVOLOG) 1 VIAL SQ SCH ×3 (06:08→21:58)
[2018-12-05] MEDS: FUROSEMIDE 40 MG/4 ML INJECTABLE VIAL IVPUSH SCH ×2 (06:12→16:52)
[2018-12-05 06:20] LABS: HEMATOCRIT 26.3 % (35.4-49); MCH 29.6 pg (25.7-33.7); MCHC 34.3 g/dl (32.0-35.9); MEAN CELL VOLUME 86.1 fl (80-96); PLATELET COUNT 197 K/MM3 (134-434); RBC 3.05 M/mm3 (4.00-5.60); RDW 17.7 % (11.9-15.9); WHITE BLOOD COUNT 6.1 K/mm3 (4.0-10.0)
[2018-12-05 06:44] LABS: ALK PHOS 153 U/L (45-117); ANION GAP 9 MMOL/L (8-16); BILIRUBIN,TOTAL 0.5 mg/dL (0.2-1); BLOOD UREA NITROGEN 48 mg/dL (7-18); CALCIUM 7.3 mg/dL (8.5-10.1); CHLORIDE 104 mmol/L (98-107); CO2 28 mmol/L (21-32); CREATININE 1.4 mg/dL (0.55-1.3); GLUCOSE,RANDOM 249 mg/dL (74-106); MAGNESIUM 2.1 mg/dL (1.8-2.4); PHOSPHOROUS 2.8 mg/dL (2.5-4.9); POTASSIUM 3.1 mmol/L (3.5-5.1); SGOT/AST 86 U/L (15-37); SGPT/ALT 82 U/L (13-61); SODIUM 142 mmol/L (136-145); TOT PROT 5.4 g/dl (6.4-8.2)
--- NOTE | 2018-12-05 07:35 | PN ---
Physical Exam: SUBJECTIVE: Patient seen and examined at bedside this morning. He has been taken off sedation and is responding by nodding yes/ no to simple questions, and following commands. He is saturating well on CPAP. OBJECTIVE: Vital Signs Period Temp Pulse Resp BP Sys/Andre Pulse Ox Last 24 Hr 98.6 F-100.2 F 82-95 20-31 134-162/61-82 95-96 GENERAL: The patient is awake, currently off sedation. HEENT: Normocephalic, atraumatic. PERRL, sclera anicteric, conjunctiva clear. Neck supple without lymphadenopathy. LUNGS: Intubated. Mechanical breath sounds equal, clear to auscultation bilateral lower lobes. HEART: Regular rate and rhythm, S1, S2 without murmur, rub or gallop. ABDOMEN: Soft, nontender, nondistended, hypoactive bowel sounds. EXTREMITIES: 2+ radial, dorsalis pedis pulses bilaterally, well-perfused. No lower extremity edema. SKIN: Warm, dry. Improving chronic venous changes noted bilateral lower extremities. Laboratory Results - last 24 hr 12/04/18 12/04/18 12/04/18 12:24 17:29 22:13 WBC RBC Hgb Hct MCV MCH MCHC RDW Plt Count MPV Sodium Potassium Chloride Carbon Dioxide Anion Gap BUN Creatinine Creat Clearance w eGFR POC Glucometer 215 220 220 Random Glucose Calcium Phosphorus Magnesium Total Bilirubin AST ALT Alkaline Phosphatase Total Protein Albumin 12/05/18 12/05/18 12/05/18 05:30 05:30 06:05 WBC 6.1 RBC 3.05 L Hgb 9.0 L Hct 26.3 L MCV 86.1 MCH 29.6 MCHC 34.3 RDW 17.7 H Plt Count 197 MPV 8.0 D Sodium 142 Potassium 3.1 L Chloride 104 Carbon Dioxide 28 Anion Gap 9 BUN 48 H Creatinine 1.4 H Creat Clearance w eGFR 50.86 POC Glucometer 229 Random Glucose 249 H Calcium 7.3 L Phosphorus 2.8 Magnesium 2.1 Total Bilirubin 0.5 AST 86 H ALT 82 H Alkaline Phosphatase 153 H Total Protein 5.4 L Albumin 2.0 L Active Medications Generic Name Dose Route Start Last Admin Trade Name Freq PRN Reason Stop Dose Admin Albuterol Sulfate 1 amp 11/29/18 21:21 12/02/18 20:17 Ventolin 0.083% Nebulizer Soln - NEB 1 amp Q4H PRN Administration SHORT OF BREATH/WHEEZING Allopurinol 300 mg 12/03/18 10:57 12/04/18 10:38 Zyloprim - NGT 300 mg DAILY [facility] Administration Aspirin 81 mg 12/03/18 10:58 12/04/18 10:38 Asa - NGT 81 mg DAILY [facility] Administration Atorvastatin Calcium 80 mg 12/03/18 22:00 12/04/18 21:14 Lipitor - NGT 80 mg HS [facility] Administration Buspirone HCl 15 mg 12/03/18 10:58 12/04/18 21:13 Buspar - NGT Not Given BID [facility] Calcium Carbonate/Cholecalciferol 2 tab 12/03/18 10:58 12/04/18 10:37 Os-Kyler 500+D - NGT 2 tab DAILY [facility] Administration Chlorhexidine Gluconate 1 applic 11/26/18 22:00 12/04/18 21:10 Hibiclens For Decolonization - TP 1 applic HS [facility] Administration Chlorhexidine Gluconate 15 ml 11/27/18 22:00 12/04/18 21:15 Peridex - MM 15 ml BID [facility] Administration Docusate Sodium 100 mg 11/26/18 08:54 Colace - PO BID PRN CONSTIPATION Furosemide 40 mg 11/29/18 14:45 12/05/18 06:12 Lasix Injection - IVPUSH 40 mg BID@0600,1400 [facility] Administration Gabapentin 100 mg 12/03/18 14:00 12/05/18 06:00 Neurontin - NGT 100 mg TID [facility] Administration Heparin Sodium (Porcine) 5,000 unit 11/30/18 22:00 12/05/18 06:00 Heparin - SQ 5,000 unit TID [facility] Administration Propofol 1,000,000 mcg in 100 mls @ 9.349 mls/hr 11/26/18 08:54 12/05/18 06: 13 Diprivan - IVPB 50 mcg/kg/min TITR [facility] 31.162 mls/hr Administration Protocol 15 MCG/KG/MIN Vancomycin HCl 1,250 mg/ 250 mls @ 250 mls/2 hr 12/03/18 11:15 12/04/18 10:35 Dextrose IVPB 250 mls/2 hr Q24H [facility] Administration Protocol Potassium Chloride 10 meq in 100 mls @ 100 mls/hr 12/05/18 07:30 Potassium Chloride 10 Meq Premix Ivpb - IVPB 12/05/18 09:29 Q60M [facility] Insulin Aspart 1 vial 12/02/18 07:30 12/05/18 06:08 Novolog Vial Sliding Scale - SQ 4 units TID [facility] Administration Protocol Insulin Detemir 20 units 11/30/18 21:42 12/04/18 22:23 Levemir Vial SQ 20 units HS [facility] Administration Methadone HCl 40 mg 12/04/18 06:00 12/05/18 05:59 Dolophine - NGT Not Given DAILY@0600 [facility] Metoclopramide HCl 10 mg 11/29/18 21:00 12/05/18 03:11 Reglan Injection - IVPUSH 10 mg Q6H-IV [facility] Administration Pantoprazole Sodium 40 mg 12/02/18 11:45 12/04/18 10:36 Protonix Iv IVPUSH 40 mg DAILY [facility] Administration Polyethylene Glycol 17 gm 12/03/18 10:58 12/04/18 10:39 Miralax (For Daily Use) - NGT Not Given DAILY [facility] Tiotropium [place] 2 puff 11/26/18 10:00 12/04/18 10:38 Spiriva Respimat IH Not Given DAILY [facility] Valacyclovir HCl 500 mg 12/03/18 10:58 12/04/18 10:38 Valtrex - NGT 500 mg DAILY [facility] Administration ASSESSMENT/PLAN: Patient is a 63 year old male with history of hypertension, hyperlipidemia, insulin dependent diabetes mellitus, peripheral vascular disease, opoid dependence, multiple myeloma, admitted to ICU for acute hypoxic respiratory failure. Neurological -Patient is currently off sedation. Following commands. -Methadone 40mg PO daily -Monitor for signs of mental status change Pulmonary -Acute hypoxic, hypoxemic respiratory failure -Pneumonia, +MRSA nares colonization -Ventilator settings: RR 24, tidal volume 450, PEEP 5, FiO2 40%. Placing on CPAP for weaning trial today -Follow ABG -Follow daily chest radiograph -Vancomycin 1250mg IV daily -Patient completed 7 days course of Zosyn -Lasix 40mg IV BID -DuoNebs Q6H, Spiriva 2 puffs IH daily -Maintain oxygen saturation greater than 90% Cardiovascular -Hypertension -NSTEMI -Troponin peaked at 21.6. Discussed with Cardiology, who recommends continuing Aspirin at this time. No indication for Heparin drip -Aspirin 81mg GT daily -Metoprolol 25mg GT daily -Cardiac ECHO shows EF 45-50%, mild global hypokinesis, grade I diastolic dysfunction. -Arterial doppler right upper extremity shows decreased monophasic flow within right radial and ulnar arteries. -Vascular surgery consult appreciated. No surgical intervention indicated at this time. Gastrointestinal -Constipation -History of Hepatitis C -HCV RNA PCR negative -No episodes of emesis overnight. Large bowel movement without melena, hematochezia. -GI consult (Dr. Up) appreciated. -Tube feeds reinstated, after minimal residuals with NG tube clamping trial -Protonix 40mg IV daily -Metoclopramide 10mg IV Q6H -Monitor serial occult blood testing Endocrine -Insulin dependent diabetes mellitus -Insulin sliding scale TID -Fingerstick blood glucose monitoring TID -Gabapentin 100mg PO TID for peripheral neuropathy Hematologic -Multiple Myeloma -S/P 1 unit PRBC transfusion -Maintain Hb above 8.0 -Multiple myeloma treatment, per hematology -Hematology recommendations appreciated Renal -DARIO -improving Hypocalcemia -Corrected Ca 8.9 -Nephrology recommendations (Dr. Cates) appreciated FEN -Fluids: No IV fluids -Electrolytes: Follow CMP; replete as necessary. -Nutrition: NPO Prophylaxis -Heparin 5000u subq TID Lines, Tubes, Drains -Massey catheter changed 12/02/2018 Disposition -Continue care in ICU. Patient is Full Code Visit type - Emergency Visit Emergency Visit: Yes ED Registration Date: 11/20/18 Care time: The patient presented to the Emergency Department on the above date and was hospitalized for further evaluation of their emergent condition. - New Patient This patient is new to me today: No - Critical Care Critical Care patient: Yes Total Critical Care Time (in minutes): 35 Critical Care Statement: The care of this patient involved high complexity decision making to prevent further life threatening deterioration of the patient 's condition and/or to evaluate & treat vital organ system(s) failure or risk of failure. - Discharge Referral Referred to [facility] Med [facility] No
[2018-12-05] MEDS: KCL 10 MEQ IVPB 10 MEQ/100 ML INFUS.BAG IVPB SCH ×2 (07:56→08:55)
[2018-12-05] MEDS ORDERED: PT OWN MED DRAWER 7, Y5N ONE ×2 (09:12→11:50)
[2018-12-05] MEDS: busPIRone HCL 5 MG TABLET NGT SCH ×2 (09:15→21:54)
[2018-12-05] MEDS: ASPIRIN 81 MG CHEWABLE TABLETS NGT SCH (09:15)
[2018-12-05] MEDS: CALCIUM 500MG/VIT-D 200 UNITS COMBO TABLET (FP) NGT SCH (09:16)
[2018-12-05] MEDS: CHLORHEXIDINE GLUCONATE 0.12% 15ML CUP MM SCH ×2 (09:16→21:58)
[2018-12-05] MEDS: POLYETHYLENE GLYCOL 3350 119 GM BTL NGT SCH ×2 (09:16→10:04)
[2018-12-05] MEDS: TIOTROPIUM BROMIDE 2.5 MCG (SPIRIVA) RESPIMAT INHALER IH SCH (09:17)
[2018-12-05] MEDS: valACYclovir HCL 500 MG TABLET (FP) NGT SCH (09:17)
[2018-12-05] MEDS: ALLOPURINOL 300 MG TABLET (FP) NGT SCH (09:17)
[2018-12-05] MEDS: PANTOPRAZOLE SODIUM 40 MG VIAL IVPUSH SCH (09:17)
--- NOTE | 2018-12-05 09:36 | PN ---
Progress Note (short form) - Note Progress Note: remains intubated no more fevers awake off sedation Vital Signs Period Temp Pulse Resp BP Sys/Andre Pulse Ox Last 24 Hr 98.6 F-100.2 F 82-103 24-31 134-180/61-88 95-96 cor-rrr lungs decreased bs at bases abd soft,nt ext no edema CBC, BMP 12/05/18 05:30 12/05/18 05:30 Microbiology 12/02/18 20:30 Blood - Peripheral Venous Blood Culture - Preliminary NO GROWTH OBTAINED AFTER 48 HOURS, INCUBATION TO CONTINUE FOR 3 DAYS. 12/02/18 19:30 Blood - Peripheral Venous Blood Culture - Preliminary NO GROWTH OBTAINED AFTER 48 HOURS, INCUBATION TO CONTINUE FOR 3 DAYS. 12/03/18 11:30 Sputum - Endotrachea Suction/Ventilator Gram Stain - Final 12/03/18 11:30 Sputum - Endotrachea Suction/Ventilator Sputum Culture - Preliminary Lactose Fermenting Neg Bacilli 11/25/18 20:10 Blood - Peripheral Venous Blood Culture - Final NO GROWTH AFTER 5 DAYS INCUBATION 11/25/18 20:00 Blood - Peripheral Venous Blood Culture - Final NO GROWTH AFTER 5 DAYS INCUBATION 11/28/18 10:40 Sputum - Endotrachea Suction/Ventilator Gram Stain - Final 11/28/18 10:40 Sputum - Endotrachea Suction/Ventilator Sputum Culture - Final S Aureus 11/25/18 20:10 Urine - Urine Massey Urine Culture - Final NO GROWTH OBTAINED 11/26/18 13:20 Urine For Antigen Detection Legionella Antigen - Final 11/26/18 13:20 Urine For Antigen Detection Streptococcus pneumoniae Antigen (M - Final 11/20/18 08:11 Urine - Urine Clean Catch Urine Culture - Final NO GROWTH OBTAINED cxray- no infiltrates Current Medications Albuterol Sulfate (Ventolin 0.083% Nebulizer Soln -) 1 amp NEB Q4H PRN PRN Reason: SHORT OF BREATH/WHEEZING Last Admin: 12/02/18 20:17 Dose: 1 amp Allopurinol (Zyloprim -) 300 mg NGT DAILY [facility] Last Admin: 12/05/18 09:17 Dose: 300 mg Aspirin (Asa -) 81 mg NGT DAILY [facility] Last Admin: 12/05/18 09:15 Dose: 81 mg Atorvastatin Calcium (Lipitor -) 80 mg NGT HS [facility] Last Admin: 12/04/18 21:14 Dose: 80 mg Buspirone HCl (Buspar -) 15 mg NGT BID [facility] Last Admin: 12/05/18 09:15 Dose: 15 mg Calcium Carbonate/Cholecalciferol (Os-Kyler 500+D -) 2 tab NGT DAILY [facility] Last Admin: 12/05/18 09:16 Dose: 2 tab Chlorhexidine Gluconate (Hibiclens For Decolonization -) 1 applic TP HS [facility] Last Admin: 12/04/18 21:10 Dose: 1 applic Chlorhexidine Gluconate (Peridex -) 15 ml MM BID [facility] Last Admin: 12/05/18 09:16 Dose: 15 ml Docusate Sodium (Colace -) 100 mg PO BID PRN PRN Reason: CONSTIPATION Furosemide (Lasix Injection -) 40 mg IVPUSH BID@0600,1400 [facility] Last Admin: 12/05/18 06:12 Dose: 40 mg Gabapentin (Neurontin -) 100 mg NGT TID [facility] Last Admin: 12/05/18 06:00 Dose: 100 mg Heparin Sodium (Porcine) (Heparin -) 5,000 unit SQ TID [facility] Last Admin: 12/05/18 06:00 Dose: 5,000 unit Propofol (Diprivan -) 1,000,000 mcg in 100 mls @ 9.349 mls/hr IVPB TITR [facility]; Protocol Last Admin: 12/05/18 08:56 Dose: Not Given Vancomycin HCl 1,250 mg/ (Dextrose) 250 mls @ 250 mls/2 hr IVPB Q24H [facility]; Protocol Last Admin: 12/04/18 10:35 Dose: 250 mls/2 hr Insulin Aspart (Novolog Vial Sliding Scale -) 1 vial SQ TID [facility]; Protocol Last Admin: 12/05/18 06:08 Dose: 4 units Insulin Detemir (Levemir Vial) 20 units SQ HS [facility] Last Admin: 12/04/18 22:23 Dose: 20 units Methadone HCl (Dolophine -) 40 mg NGT DAILY@0600 [facility] Last Admin: 12/05/18 05:59 Dose: Not Given Metoclopramide HCl (Reglan Injection -) 10 mg IVPUSH Q6H-IV [facility] Last Admin: 12/05/18 09:15 Dose: 10 mg Pantoprazole Sodium (Protonix Iv) 40 mg IVPUSH DAILY [facility] Last Admin: 12/05/18 09:17 Dose: 40 mg Polyethylene Glycol (Miralax (For Daily Use) -) 17 gm NGT DAILY [facility] Last Admin: 12/05/18 09:16 Dose: 17 gm Tiotropium [place] (Spiriva Respimat) 2 puff IH DAILY [facility] Last Admin: 12/05/18 09:17 Dose: Not Given Valacyclovir HCl (Valtrex -) 500 mg NGT DAILY [facility] Last Admin: 12/05/18 09:17 Dose: 500 mg a/p no further fevers respiratory failure left lung pneumonia sputum with MRSA clinically improving better oxygenation d/c vancomycin after today's dose (day 10) suspect sputum culture is colonization as cxray is clear- no need to treat at this time multiple myeloma/vertebral fractures renal insufficiency- coffee ground emesis- hemoglobin stable +troponins-cardiology f/u noted
[2018-12-05] MEDS ORDERED: NIFEdipine E.R. 30 MG TABLET (FP) PO SCH (11:45)
--- NOTE | 2018-12-05 11:51 | PN ---
Progress Note, Physician Chief Complaint: on cpap trial off sedation - Current Medication List Current Medications: Active Medications Albuterol Sulfate (Ventolin 0.083% Nebulizer Soln -) 1 amp NEB Q4H PRN PRN Reason: SHORT OF BREATH/WHEEZING Last Admin: 12/02/18 20:17 Dose: 1 amp Allopurinol (Zyloprim -) 300 mg NGT DAILY [facility] Last Admin: 12/05/18 09:17 Dose: 300 mg Aspirin (Asa -) 81 mg NGT DAILY [facility] Last Admin: 12/05/18 09:15 Dose: 81 mg Atorvastatin Calcium (Lipitor -) 80 mg NGT HS [facility] Last Admin: 12/04/18 21:14 Dose: 80 mg Buspirone HCl (Buspar -) 15 mg NGT BID [facility] Last Admin: 12/05/18 09:15 Dose: 15 mg Calcium Carbonate/Cholecalciferol (Os-Kyler 500+D -) 2 tab NGT DAILY [facility] Last Admin: 12/05/18 09:16 Dose: 2 tab Chlorhexidine Gluconate (Hibiclens For Decolonization -) 1 applic TP HS [facility] Last Admin: 12/04/18 21:10 Dose: 1 applic Chlorhexidine Gluconate (Peridex -) 15 ml MM BID [facility] Last Admin: 12/05/18 09:16 Dose: 15 ml Docusate Sodium (Colace -) 100 mg PO BID PRN PRN Reason: CONSTIPATION Furosemide (Lasix Injection -) 40 mg IVPUSH BID@0600,1400 [facility] Last Admin: 12/05/18 06:12 Dose: 40 mg Gabapentin (Neurontin -) 100 mg NGT TID [facility] Last Admin: 12/05/18 06:00 Dose: 100 mg Heparin Sodium (Porcine) (Heparin -) 5,000 unit SQ TID [facility] Last Admin: 12/05/18 06:00 Dose: 5,000 unit Propofol (Diprivan -) 1,000,000 mcg in 100 mls @ 9.349 mls/hr IVPB TITR [facility]; Protocol Last Admin: 12/05/18 08:56 Dose: Not Given Vancomycin HCl 1,250 mg/ (Dextrose) 250 mls @ 250 mls/2 hr IVPB Q24H [facility]; Protocol Last Admin: 12/04/18 10:35 Dose: 250 mls/2 hr Insulin Aspart (Novolog Vial Sliding Scale -) 1 vial SQ TID [facility]; Protocol Last Admin: 12/05/18 06:08 Dose: 4 units Insulin Detemir (Levemir Vial) 20 units SQ HS [facility] Last Admin: 12/04/18 22:23 Dose: 20 units Methadone HCl (Dolophine -) 40 mg NGT DAILY@0600 [facility] Last Admin: 12/05/18 05:59 Dose: Not Given Metoclopramide HCl (Reglan Injection -) 10 mg IVPUSH Q6H-IV [facility] Last Admin: 12/05/18 09:15 Dose: 10 mg Metoprolol Tartrate (Lopressor -) 25 mg PO BID [facility] Nifedipine (Procardia Xl -) 30 mg PO DAILY [facility] Pantoprazole Sodium (Protonix Iv) 40 mg IVPUSH DAILY [facility] Last Admin: 12/05/18 09:17 Dose: 40 mg Polyethylene Glycol (Miralax (For Daily Use) -) 17 gm NGT DAILY [facility] Last Admin: 12/05/18 10:04 Dose: Not Given Tiotropium [place] (Spiriva Respimat) 2 puff IH DAILY [facility] Last Admin: 12/05/18 09:17 Dose: Not Given Valacyclovir HCl (Valtrex -) 500 mg NGT DAILY [facility] Last Admin: 12/05/18 09:17 Dose: 500 mg - Objective Vital Signs: Vital Signs Temperature 99.8 F H 12/05/18 10:00 Pulse Rate 99 H 12/05/18 10:00 Respiratory Rate 29 H 12/05/18 11:28 Blood Pressure 189/97 H 12/05/18 10:00 O2 Sat by Pulse Oximetry (%) 97 12/05/18 11:28 Constitutional: Yes: Calm Cardiovascular: Yes: Regular Rate and Rhythm, S1, S2 Respiratory: Yes: Diminished Gastrointestinal: Yes: Normal Bowel Sounds, Soft Labs: CBC, BMP 12/05/18 05:30 12/05/18 05:30 INR, PTT INR 1.19 (0.83-1.09) H 11/30/18 05:30 Fibrinogen > 500.0 mg/dL (238-498) H 11/25/18 20:00 Problem List - Problems (1) Vertebral compression fracture Assessment/Plan: radiation oncology and JOSE MANUEL noted to follow up as outpatient Code(s): M48.50XA - COLLAPSED VERTEBRA, NEC, SITE UNSP, INIT (2) Hyponatremia Assessment/Plan: resolve now sodium is 142 Code(s): E87.1 - HYPO-OSMOLALITY AND HYPONATREMIA (3) Diabetes Assessment/Plan: levemir [id number] 7.7 Code(s): E11.9 - TYPE 2 DIABETES MELLITUS WITHOUT COMPLICATIONS Qualifiers: Diabetes mellitus type: type 2 (4) Multiple myeloma Assessment/Plan: last treatment was 11/18 Code(s): C90.00 - MULTIPLE MYELOMA NOT HAVING ACHIEVED REMISSION (5) Hypocalcemia Assessment/Plan: now calcium is better Code(s): E83.51 - HYPOCALCEMIA (6) Elevated troponin Assessment/Plan: due to demand ischemia on aspirin and lipitor Code(s): R74.8 - ABNORMAL LEVELS OF OTHER SERUM ENZYMES (7) Respiratory failure Assessment/Plan: iv lasix bid monitor renal function and potassium Code(s): J96.90 - RESPIRATORY FAILURE, UNSP, UNSP W HYPOXIA OR HYPERCAPNIA
[2018-12-05] MEDS: VANCOMYCIN HCL 1,250 MG in DEXTROSE 5%-WATER - 250 ML IVPB SCH (11:54)
[2018-12-05] MEDS: METOPROLOL TARTRATE 25 MG TABLET (FP) PO SCH ×2 (11:57→21:57)
[2018-12-05] MEDS: POTASSIUM CHLORIDE ORAL LIQUID 20 MEQ/15 ML GT ONE ×2 (11:59→17:57)
[2018-12-05 12:29] LABS: ARTERIAL BLD GAS O2 SATURATION 98.5 % (90-98.9); ARTERIAL BLOOD GAS BASE EXCESS 3.5 meq/l (-2-2); ARTERIAL BLOOD GAS pH 7.45 (7.35-7.45)
--- NOTE | 2018-12-05 12:30 | PN ---
Teaching Attending Note Name of Resident: Tarun Guzmán ATTENDING PHYSICIAN STATEMENT I saw and evaluated the patient. I reviewed the resident's note and discussed the case with the resident. I agree with the resident's findings and plan as documented. SUBJECTIVE: Pt seen and examined in the ICU. Remains intubated. Arousable off sedation but falls asleep easily. Febrile this AM. OBJECTIVE: Vital Signs Period Temp Pulse Resp BP Sys/Andre Pulse Ox Last 24 Hr 98.6 F-101.4 F 87-104 24-34 136-189/61-99 95-98 Intake & Output 12/02/18 12/03/18 12/04/18 12/05/18 23:59 23:59 23:59 23:59 Intake Total 752 1565 2016 1024 Output Total 2500 2500 4000 600 Balance -1748 -935 -1984 424 Weight 102.115 kg 103 kg 98.475 kg 95.9 kg Gen: intubated, somnolent Heart: RRR Lung: scattered rhonchi Abd: soft, nontender Ext: no edema CBC, BMP 12/05/18 05:30 12/05/18 05:30 Active Medications Albuterol Sulfate (Ventolin 0.083% Nebulizer Soln -) 1 amp NEB Q4H PRN PRN Reason: SHORT OF BREATH/WHEEZING Last Admin: 12/02/18 20:17 Dose: 1 amp Allopurinol (Zyloprim -) 300 mg NGT DAILY [facility] Last Admin: 12/05/18 09:17 Dose: 300 mg Aspirin (Asa -) 81 mg NGT DAILY [facility] Last Admin: 12/05/18 09:15 Dose: 81 mg Atorvastatin Calcium (Lipitor -) 80 mg NGT HS [facility] Last Admin: 12/04/18 21:14 Dose: 80 mg Buspirone HCl (Buspar -) 15 mg NGT BID [facility] Last Admin: 12/05/18 09:15 Dose: 15 mg Calcium Carbonate/Cholecalciferol (Os-Kyler 500+D -) 2 tab NGT DAILY [facility] Last Admin: 12/05/18 09:16 Dose: 2 tab Chlorhexidine Gluconate (Hibiclens For Decolonization -) 1 applic TP HS [facility] Last Admin: 12/04/18 21:10 Dose: 1 applic Chlorhexidine Gluconate (Peridex -) 15 ml MM BID [facility] Last Admin: 12/05/18 09:16 Dose: 15 ml Docusate Sodium (Colace -) 100 mg PO BID PRN PRN Reason: CONSTIPATION Furosemide (Lasix Injection -) 40 mg IVPUSH BID@0600,1400 [facility] Last Admin: 12/05/18 06:12 Dose: 40 mg Gabapentin (Neurontin -) 100 mg NGT TID [facility] Last Admin: 12/05/18 06:00 Dose: 100 mg Heparin Sodium (Porcine) (Heparin -) 5,000 unit SQ TID [facility] Last Admin: 12/05/18 06:00 Dose: 5,000 unit Propofol (Diprivan -) 1,000,000 mcg in 100 mls @ 9.349 mls/hr IVPB TITR [facility]; Protocol Last Admin: 12/05/18 08:56 Dose: Not Given Vancomycin HCl 1,250 mg/ (Dextrose) 250 mls @ 250 mls/2 hr IVPB Q24H [facility]; Protocol Last Admin: 12/05/18 11:54 Dose: 250 mls/2 hr Insulin Aspart (Novolog Vial Sliding Scale -) 1 vial SQ TID [facility]; Protocol Last Admin: 12/05/18 06:08 Dose: 4 units Insulin Detemir (Levemir Vial) 20 units SQ HS [facility] Last Admin: 12/04/18 22:23 Dose: 20 units Methadone HCl (Dolophine -) 40 mg NGT DAILY@0600 [facility] Last Admin: 12/05/18 05:59 Dose: Not Given Metoclopramide HCl (Reglan Injection -) 10 mg IVPUSH Q6H-IV [facility] Last Admin: 12/05/18 09:15 Dose: 10 mg Metoprolol Tartrate (Lopressor -) 25 mg PO BID [facility] Last Admin: 12/05/18 11:57 Dose: 25 mg Nifedipine (Procardia Xl -) 30 mg PO DAILY [facility] Pantoprazole Sodium (Protonix Iv) 40 mg IVPUSH DAILY [facility] Last Admin: 12/05/18 09:17 Dose: 40 mg Polyethylene Glycol (Miralax (For Daily Use) -) 17 gm NGT DAILY [facility] Last Admin: 12/05/18 10:04 Dose: Not Given Tiotropium [place] (Spiriva Respimat) 2 puff IH DAILY [facility] Last Admin: 12/05/18 09:17 Dose: Not Given Valacyclovir HCl (Valtrex -) 500 mg NGT DAILY [facility] Last Admin: 12/05/18 09:17 Dose: 500 mg ASSESSMENT AND PLAN: Acute Hypoxic and Hypercapneic Respiratory Failure Acute Pulmonary Edema Acute NSTEMI r/o Pneumonia Acute on Chronic Renal Failure HTN DM COPD Methadone Maintenance - continue lasix - monitor urine output, creatinine - replete lytes - ASA - inhaled bronchodilators - hold sedation to assess mental status - spontaneous breathing trials as tolerated - check ABG - enteral feeds - DVT/GI prophylaxis - continue ICU monitoring critical care time spent in reviewing chart, evaluating patient and formulating plan 35 min
[2018-12-05 12:31] LABS: ALLENS TEST POSITIVE
[2018-12-05] MEDS ORDERED: DEXMEDETOMIDINE HCL 200 MCG/2 ML IVPB SCH (13:15)
[2018-12-05] MEDS: ACETAMINOPHEN 325 MG TABLET (FP) PO PRN (14:00)
[2018-12-05] MEDS ORDERED: DEXMEDETOMIDINE HCL 200 MCG in SODIUM CHLORIDE 48 ML IVPB SCH (14:00)
--- NOTE | 2018-12-05 14:49 | PN ---
Progress Note, Physician History of Present Illness: Pt seen and examined at bedside. He remains in the ICU. He remains intubated. - Current Medication List Current Medications: Active Medications Acetaminophen (Tylenol -) 650 mg PO Q6H PRN PRN Reason: FEVER Albuterol Sulfate (Ventolin 0.083% Nebulizer Soln -) 1 amp NEB Q4H PRN PRN Reason: SHORT OF BREATH/WHEEZING Last Admin: 12/02/18 20:17 Dose: 1 amp Allopurinol (Zyloprim -) 300 mg NGT DAILY [facility] Last Admin: 12/05/18 09:17 Dose: 300 mg Aspirin (Asa -) 81 mg NGT DAILY [facility] Last Admin: 12/05/18 09:15 Dose: 81 mg Atorvastatin Calcium (Lipitor -) 80 mg NGT HS [facility] Last Admin: 12/04/18 21:14 Dose: 80 mg Buspirone HCl (Buspar -) 15 mg NGT BID [facility] Last Admin: 12/05/18 09:15 Dose: 15 mg Calcium Carbonate/Cholecalciferol (Os-Kyler 500+D -) 2 tab NGT DAILY [facility] Last Admin: 12/05/18 09:16 Dose: 2 tab Chlorhexidine Gluconate (Hibiclens For Decolonization -) 1 applic TP HS [facility] Last Admin: 12/04/18 21:10 Dose: 1 applic Chlorhexidine Gluconate (Peridex -) 15 ml MM BID [facility] Last Admin: 12/05/18 09:16 Dose: 15 ml Docusate Sodium (Colace -) 100 mg PO BID PRN PRN Reason: CONSTIPATION Furosemide (Lasix Injection -) 40 mg IVPUSH BID@0600,1400 [facility] Last Admin: 12/05/18 06:12 Dose: 40 mg Gabapentin (Neurontin -) 100 mg NGT TID [facility] Last Admin: 12/05/18 13:19 Dose: 100 mg Heparin Sodium (Porcine) (Heparin -) 5,000 unit SQ TID [facility] Last Admin: 12/05/18 13:18 Dose: 5,000 unit Vancomycin HCl 1,250 mg/ (Dextrose) 250 mls @ 250 mls/2 hr IVPB Q24H [facility]; Protocol Last Admin: 12/05/18 11:54 Dose: 250 mls/2 hr Dexmedetomidine HCl 200 mcg/ (Sodium Chloride) 50 mls @ 4.79 mls/hr IVPB TITR [facility] Insulin Aspart (Novolog Vial Sliding Scale -) 1 vial SQ TID [facility]; Protocol Last Admin: 12/05/18 13:46 Dose: 6 units Insulin Detemir (Levemir Vial) 20 units SQ HS [facility] Last Admin: 12/04/18 22:23 Dose: 20 units Methadone HCl (Dolophine -) 40 mg NGT DAILY@0600 [facility] Last Admin: 12/05/18 05:59 Dose: Not Given Metoclopramide HCl (Reglan Injection -) 10 mg IVPUSH Q6H-IV [facility] Last Admin: 12/05/18 09:15 Dose: 10 mg Metoprolol Tartrate (Lopressor -) 25 mg PO BID [facility] Last Admin: 12/05/18 11:57 Dose: 25 mg Pantoprazole Sodium (Protonix Iv) 40 mg IVPUSH DAILY [facility] Last Admin: 12/05/18 09:17 Dose: 40 mg Polyethylene Glycol (Miralax (For Daily Use) -) 17 gm NGT DAILY [facility] Last Admin: 12/05/18 10:04 Dose: Not Given Tiotropium [place] (Spiriva Respimat) 2 puff IH DAILY [facility] Last Admin: 12/05/18 09:17 Dose: Not Given Valacyclovir HCl (Valtrex -) 500 mg NGT DAILY [facility] Last Admin: 12/05/18 09:17 Dose: 500 mg - Objective Vital Signs: Vital Signs Temperature 101.4 F H 12/05/18 12:00 Pulse Rate 104 H 12/05/18 12:00 Respiratory Rate 25 H 12/05/18 14:20 Blood Pressure 180/99 H 12/05/18 12:00 O2 Sat by Pulse Oximetry (%) 97 12/05/18 11:28 Constitutional: Yes: Calm Eyes: Yes: Conjunctiva Clear HENT: Yes: Atraumatic Cardiovascular: Yes: S1, S2 Respiratory: Yes: Mechanically Ventilated Gastrointestinal: Yes: Soft, Abdomen, Obese Genitourinary: Yes: Massey Present Musculoskeletal: Yes: Muscle Weakness Edema: LUE: Trace, RUE: Trace, LLE: Trace, RLE: Trace Integumentary: No: Rash Neurological: Yes: Lethargy Labs: CBC, BMP 12/05/18 05:30 12/05/18 05:30 INR, PTT INR 1.19 (0.83-1.09) H 02/27/19 05:30 Fibrinogen > 500.0 mg/dL (238-498) H 11/25/18 20:00 - ....Imaging Chest X-ray: Report Reviewed Problem List - Problems (1) CKD (chronic kidney disease) Code(s): N18.9 - CHRONIC KIDNEY DISEASE, UNSPECIFIED (2) Constipation Code(s): K59.00 - CONSTIPATION, UNSPECIFIED Qualifiers: Constipation type: unspecified constipation type Qualified Code(s): K59.00 - Constipation, unspecified (3) Hyponatremia Code(s): E87.1 - HYPO-OSMOLALITY AND HYPONATREMIA Assessment/Plan Current Medications Generic Name Dose Route Start Last Admin Trade Name Freq PRN Reason Stop Dose Admin Acetaminophen 650 mg 12/05/18 13:14 Tylenol - PO Q6H PRN FEVER Albuterol Sulfate 1 amp 11/29/18 21:21 12/02/18 20:17 Ventolin 0.083% Nebulizer Soln - NEB 1 amp Q4H PRN Administration SHORT OF BREATH/WHEEZING Allopurinol 300 mg 12/03/18 10:57 12/05/18 09:17 Zyloprim - NGT 300 mg DAILY [facility] Administration Aspirin 81 mg 12/03/18 10:58 12/05/18 09:15 Asa - NGT 81 mg DAILY [facility] Administration Atorvastatin Calcium 80 mg 12/03/18 22:00 12/04/18 21:14 Lipitor - NGT 80 mg HS [facility] Administration Buspirone HCl 15 mg 12/03/18 10:58 12/05/18 09:15 Buspar - NGT 15 mg BID [facility] Administration Calcium Carbonate/Cholecalciferol 2 tab 12/03/18 10:58 12/05/18 09:16 Os-Kyler 500+D - NGT 2 tab DAILY [facility] Administration Chlorhexidine Gluconate 1 applic 11/26/18 22:00 12/04/18 21:10 Hibiclens For Decolonization - TP 1 applic HS [facility] Administration Chlorhexidine Gluconate 15 ml 11/27/18 22:00 12/05/18 09:16 Peridex - MM 15 ml BID [facility] Administration Docusate Sodium 100 mg 11/26/18 08:54 Colace - PO BID PRN CONSTIPATION Furosemide 40 mg 11/29/18 14:45 12/05/18 06:12 Lasix Injection - IVPUSH 40 mg BID@0600,1400 [facility] Administration Gabapentin 100 mg 12/03/18 14:00 12/05/18 13:19 Neurontin - NGT 100 mg TID [facility] Administration Heparin Sodium (Porcine) 5,000 unit 11/30/18 22:00 12/05/18 13:18 Heparin - SQ 5,000 unit TID [facility] Administration Vancomycin HCl 1,250 mg/ 250 mls @ 250 mls/2 hr 12/03/18 11:15 12/05/18 11:54 Dextrose IVPB 250 mls/2 hr Q24H [facility] Administration Protocol Dexmedetomidine HCl 200 mcg/ 50 mls @ 4.79 mls/hr 12/05/18 14:00 Sodium Chloride IVPB TITR [facility] 0.2 MCG/KG/HR Insulin Aspart 1 vial 12/02/18 07:30 12/05/18 13:46 Novolog Vial Sliding Scale - SQ 6 units TID [facility] Administration Protocol Insulin Detemir 20 units 11/30/18 21:42 12/04/18 22:23 Levemir Vial SQ 20 units HS [facility] Administration Methadone HCl 40 mg 12/04/18 06:00 12/05/18 05:59 Dolophine - NGT Not Given DAILY@0600 [facility] Metoclopramide HCl 10 mg 11/29/18 21:00 12/05/18 09:15 Reglan Injection - IVPUSH 10 mg Q6H-IV [facility] Administration Metoprolol Tartrate 25 mg 12/05/18 11:30 12/05/18 11:57 Lopressor - PO 25 mg BID [facility] Administration Pantoprazole Sodium 40 mg 12/02/18 11:45 12/05/18 09:17 Protonix Iv IVPUSH 40 mg DAILY [facility] Administration Polyethylene Glycol 17 gm 12/03/18 10:58 12/05/18 10:04 Miralax (For Daily Use) - NGT Not Given DAILY [facility] Tiotropium [place] 2 puff 11/26/18 10:00 12/05/18 09:17 Spiriva Respimat IH Not Given DAILY [facility] Valacyclovir HCl 500 mg 12/03/18 10:58 12/05/18 09:17 Valtrex - NGT 500 mg DAILY [facility] Administration Impression 1. hyponatremia 2. CKD 3. nausea and vomiting 4. htn 5. DM 6. 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 multiple myeloma 9. anemia 10. proteinuria 11. hyperkalemia 12. resp failure 13. volume overload Plan - cont with lasix - replace lytes - discussed with ICU - daily cxr - vent support - keep net negative - cont ICU care Dr Cates
[2018-12-05 16:40] LABS: ANION GAP 9 MMOL/L (8-16); BLOOD UREA NITROGEN 47 mg/dL (7-18); CALCIUM 7.6 mg/dL (8.5-10.1); CHLORIDE 102 mmol/L (98-107); CO2 29 mmol/L (21-32); CREATININE 1.8 mg/dL (0.55-1.3); GLUCOSE,RANDOM 253 mg/dL (74-106); POTASSIUM 3.3 mmol/L (3.5-5.1); SODIUM 140 mmol/L (136-145)
[2018-12-05] MEDS: DEXMEDETOMIDINE HCL 400 MCG in SODIUM CHLORIDE 96 ML IVPB SCH (19:00)
[2018-12-05] MEDS ORDERED: MIDAZOLAM HCL 2 MG/2 ML SINGLE DOSE VIAL IVPUSH ONE (19:00)
[2018-12-05] MEDS: MIDAZOLAM HCL 2 MG/2 ML SINGLE DOSE VIAL IVPUSH PRN (20:50)
[2018-12-05 21:14] LABS: URINE APPEARANCE CLOUDY; URINE BILIRUBIN NEGATIVE (<2.0 mg/dL); URINE COLOR YELLOW; URINE GLUCOSE (UA) 1+ (NEGATIVE); URINE KETONE NEGATIVE (NEGATIVE); URINE LEUK ESTERASE TRACE (NEGATIVE); URINE NITRITE NEGATIVE (NEGATIVE); URINE PROTEIN 3+ (NEGATIVE); URINE UROBILINOGEN NEGATIVE mg/dL (0.2-1.0)
[2018-12-05 21:21] LABS: EPI CELLS RARE /HPF (FEW); GRANULAR CASTS 37 /lpf; URINE BACTERIA RARE /hpf (NONE SEEN); URINE MUCUS RARE; YEAST MODERATE
--- NOTE | 2018-12-05 21:46 | PN ---
Progress Note (short form) - Note Progress Note: Patient seen and examined in icu failed weaning trial sedation being adjusted Intubtaed--40percnt fio2/8 peep Cor: RSR, No murmurs, No gallops Lungs: Clear to auscultation anteriorly Abd: Soft, Normal bowel sounds, No organomegaly Ext:chronic stasis dermatitis Labs/meds reviewed A/P 63 y/o patient with multiple coorbidites, HTN, DM, PVD, ? COPD, CKD, recently diagnosed myeloma, vertebral fractures on velcade/cytoxan/dexamethasone/zometa. Admitted with severe constipation and hyponatremia. Was on golytely for constipaion Developed acute resp. distress and high BPs evening of 11/25 ? flash pulmonary edema + pneuonia intubated CXR-airspace opacities diuresis per renal team weaning trials per pulmonary team- + troponins-- not a candidate for agressive cardiac interventions Myeloma--on velcade/cytoxan/dex --last dose 11/18 On zometa--11/18 treatment held last week light chains decreasing slowly s/p rt to lspine and left acetabular fx will resume based on clinical course low grade fevers 100.4 --check u/a, urine cx
[2018-12-05] MEDS: CHLORHEXIDINE GLUCONATE 4% CLEANSER FOR DECOLONIZATION TP SCH (21:55)
[2018-12-05] MEDS: INSULIN (LEVEMIR) 100 UNITS/ML UNITS SQ SCH (21:56)
[2018-12-05] MEDS: ATORVASTATIN CA 80 MG TABLET (FP) NGT SCH (21:57)
[2018-12-06] MEDS: MIDAZOLAM HCL 2 MG/2 ML SINGLE DOSE VIAL IVPUSH PRN ×3 (00:27→22:10)
[2018-12-06] MEDS: DEXMEDETOMIDINE HCL 400 MCG in SODIUM CHLORIDE 96 ML IVPB SCH ×4 (01:00→22:00)
[2018-12-06] MEDS: METOCLOPRAMIDE HCL INJECTION 10 MG/2 ML VIAL IVPUSH SCH ×4 (02:12→22:08)
[2018-12-06] MEDS: GABAPENTIN 100 MG CAPSULE (FP) NGT SCH ×3 (05:35→22:09)
[2018-12-06] MEDS: FUROSEMIDE 40 MG/4 ML INJECTABLE VIAL IVPUSH SCH ×2 (05:35→14:22)
[2018-12-06] MEDS: METHADONE HCL 40 MG DISPERSABLE TABLET NGT SCH (05:36)
[2018-12-06] MEDS: HEPARIN NA (PORCINE) 5,000 UNITS/ML 1ML VIAL SQ SCH ×3 (05:39→22:09)
[2018-12-06] MEDS: INSULIN SLIDING SCALE (NOVOLOG) 1 VIAL SQ SCH ×3 (06:02→22:41)
[2018-12-06 06:57] LABS: HEMATOCRIT 30.2 % (35.4-49); HEMOGLOBIN 10.2 GM/dL (11.7-16.9); MCH 29.5 pg (25.7-33.7); MEAN CELL VOLUME 86.9 fl (80-96); MEAN PLT VOLUME 8.7 fl (7.5-11.1); PLATELET COUNT 217 K/MM3 (134-434); RBC 3.47 M/mm3 (4.00-5.60); RDW 17.9 % (11.9-15.9); WHITE BLOOD COUNT 11.3 K/mm3 (4.0-10.0)
[2018-12-06 07:12] LABS: ALBUMIN 2.2 g/dl (3.4-5.0); ALK PHOS 175 U/L (45-117); ANION GAP 10 MMOL/L (8-16); BILIRUBIN,TOTAL 0.5 mg/dL (0.2-1); BLOOD UREA NITROGEN 55 mg/dL (7-18); CALCIUM 7.9 mg/dL (8.5-10.1); CHLORIDE 107 mmol/L (98-107); CO2 26 mmol/L (21-32); CREATININE 1.7 mg/dL (0.55-1.3); MAGNESIUM 1.7 mg/dL (1.8-2.4); PHOSPHOROUS 2.5 mg/dL (2.5-4.9); POTASSIUM 3.2 mmol/L (3.5-5.1); SGOT/AST 62 U/L (15-37); SGPT/ALT 74 U/L (13-61); SODIUM 143 mmol/L (136-145); TOT PROT 5.9 g/dl (6.4-8.2)
[2018-12-06] MEDS ORDERED: POTASSIUM CHLORIDE ORAL LIQUID 20 MEQ/15 ML PO ONE (07:22)
[2018-12-06 07:32] LABS: GLUCOSE,RANDOM 322 mg/dL (74-106)
[2018-12-06] MEDS ORDERED: POTASSIUM PHOSPHATE 20 MM in SODIUM CHLORIDE 250 ML IVPB ONE (08:06)
[2018-12-06] MEDS ORDERED: MAGNESIUM OXIDE 400 MG TABLET (FP) PO ONE (08:07)
--- NOTE | 2018-12-06 08:23 | PN ---
Physical Exam: SUBJECTIVE: Patient seen and examined at bedside this morning. He failed weaning trial yesterday,; he became tachypnic, tachycardic, and hypertensive and was placed on Precedex drip for sedation. Overnight he was agitated, and was given 2mL of Versed. OBJECTIVE: Vital Signs Period Temp Pulse Resp BP Sys/Andre Pulse Ox Last 24 Hr 99.6 F-101.4 F 68-104 22-36 92-191/64-99 96-98 GENERAL: The patient is awake, currently off sedation. HEENT: Normocephalic, atraumatic. PERRL, sclera anicteric, conjunctiva clear. Neck supple without lymphadenopathy. LUNGS: Intubated. Mechanical breath sounds equal, clear to auscultation bilateral lower lobes. HEART: Regular rate and rhythm, S1, S2 without murmur, rub or gallop. ABDOMEN: Soft, nontender, nondistended, hypoactive bowel sounds. EXTREMITIES: 2+ radial, dorsalis pedis pulses bilaterally, well-perfused. No lower extremity edema. SKIN: Warm, dry. Improving chronic venous changes noted bilateral lower extremities. Laboratory Results - last 24 hr 12/05/18 12/05/18 12/05/18 11:51 12:23 13:00 WBC RBC Hgb Hct MCV MCH MCHC RDW Plt Count MPV Puncture Site Left radial ABG pH 7.45 ABG pCO2 at Pt Temp 40.0 ABG pO2 at Pt Temp 124.0 H D ABG HCO3 27.3 H ABG O2 Sat (Measured) 98.5 ABG O2 Content 13.7 L ABG Base Excess 3.5 H Benny Test Positive Oxygen Flow Rate Yes Sodium 140 Potassium 3.3 L Chloride 102 Carbon Dioxide 29 Anion Gap 9 BUN 47 H Creatinine 1.8 H Creat Clearance w eGFR 38.06 POC Glucometer 176 Random Glucose 253 H Calcium 7.6 L Phosphorus Magnesium Total Bilirubin AST ALT Alkaline Phosphatase Total Protein Albumin Urine Color Urine Appearance Urine pH Ur Specific [place] Urine Protein Urine Glucose (UA) Urine Ketones Urine Blood Urine Nitrite Urine Bilirubin Urine Urobilinogen Ur Leukocyte Esterase Urine WBC (Auto) Urine RBC (Auto) Ur Epithelial Cells Urine Bacteria Granular Casts Urine Mucus Urine Yeast 12/05/18 12/05/18 12/05/18 13:45 21:00 21:47 WBC RBC Hgb Hct MCV MCH MCHC RDW Plt Count MPV Puncture Site ABG pH ABG pCO2 at Pt Temp ABG pO2 at Pt Temp ABG HCO3 ABG O2 Sat (Measured) ABG O2 Content ABG Base Excess Benny Test Oxygen Flow Rate Sodium Potassium Chloride Carbon Dioxide Anion Gap BUN Creatinine Creat Clearance w eGFR POC Glucometer 251 233 Random Glucose Calcium Phosphorus Magnesium Total Bilirubin AST ALT Alkaline Phosphatase Total Protein Albumin Urine Color Yellow Urine Appearance Cloudy Urine pH 5.0 Ur Specific [place] 1.017 Urine Protein 3+ H Urine Glucose (UA) 1+ H Urine Ketones Negative Urine Blood 1+ H Urine Nitrite Negative Urine Bilirubin Negative Urine Urobilinogen Negative Ur Leukocyte Esterase Trace Urine WBC (Auto) 13 Urine RBC (Auto) 7 Ur Epithelial Cells Rare Urine Bacteria Rare Granular Casts 37 Urine Mucus Rare Urine Yeast Moderate 12/06/18 12/06/18 12/06/18 05:30 05:30 05:49 WBC 11.3 H RBC 3.47 L Hgb 10.2 L Hct 30.2 L MCV 86.9 MCH 29.5 MCHC 34.0 RDW 17.9 H Plt Count 217 MPV 8.7 Puncture Site ABG pH ABG pCO2 at Pt Temp ABG pO2 at Pt Temp ABG HCO3 ABG O2 Sat (Measured) ABG O2 Content ABG Base Excess Benny Test Oxygen Flow Rate Sodium 143 Potassium 3.2 L Chloride 107 Carbon Dioxide 26 Anion Gap 10 BUN 55 H Creatinine 1.7 H Creat Clearance w eGFR 40.65 POC Glucometer 338 Random Glucose 322 H* Calcium 7.9 L Phosphorus 2.5 Magnesium 1.7 L Total Bilirubin 0.5 AST 62 H ALT 74 H Alkaline Phosphatase 175 H Total Protein 5.9 L Albumin 2.2 L Urine Color Urine Appearance Urine pH Ur Specific [place] Urine Protein Urine Glucose (UA) Urine Ketones Urine Blood Urine Nitrite Urine Bilirubin Urine Urobilinogen Ur Leukocyte Esterase Urine WBC (Auto) Urine RBC (Auto) Ur Epithelial Cells Urine Bacteria Granular Casts Urine Mucus Urine Yeast Active Medications Generic Name Dose Route Start Last Admin Trade Name Freq PRN Reason Stop Dose Admin Acetaminophen 650 mg 12/05/18 13:14 12/05/18 14:00 Tylenol - PO 650 mg Q6H PRN Administration FEVER Albuterol Sulfate 1 amp 11/29/18 21:21 12/02/18 20:17 Ventolin 0.083% Nebulizer Soln - NEB 1 amp Q4H PRN Administration SHORT OF BREATH/WHEEZING Allopurinol 300 mg 12/03/18 10:57 12/05/18 09:17 Zyloprim - NGT 300 mg DAILY [facility] Administration Aspirin 81 mg 12/03/18 10:58 12/05/18 09:15 Asa - NGT 81 mg DAILY [facility] Administration Atorvastatin Calcium 80 mg 12/03/18 22:00 12/05/18 21:57 Lipitor - NGT 80 mg HS [facility] Administration Buspirone HCl 15 mg 12/03/18 10:58 12/05/18 21:54 Buspar - NGT 15 mg BID [facility] Administration Calcium Carbonate/Cholecalciferol 2 tab 12/03/18 10:58 12/05/18 09:16 Os-Kyler 500+D - NGT 2 tab DAILY [facility] Administration Chlorhexidine Gluconate 1 applic 11/26/18 22:00 12/05/18 21:55 Hibiclens For Decolonization - TP 1 applic HS [facility] Administration Chlorhexidine Gluconate 15 ml 11/27/18 22:00 12/05/18 21:58 Peridex - MM 15 ml BID [facility] Administration Docusate Sodium 100 mg 11/26/18 08:54 Colace - PO BID PRN CONSTIPATION Furosemide 40 mg 11/29/18 14:45 12/06/18 05:35 Lasix Injection - IVPUSH 40 mg BID@0600,1400 [facility] Administration Gabapentin 100 mg 12/03/18 14:00 12/06/18 05:35 Neurontin - NGT 100 mg TID [facility] Administration Heparin Sodium (Porcine) 5,000 unit 11/30/18 22:00 12/06/18 05:39 Heparin - SQ 5,000 unit TID [facility] Administration Vancomycin HCl 1,250 mg/ 250 mls @ 250 mls/2 hr 12/03/18 11:15 12/05/18 11:54 Dextrose IVPB 250 mls/2 hr Q24H [facility] Administration Protocol Dexmedetomidine HCl 400 mcg/ 100 mls @ 16.78 mls/hr 12/05/18 18:00 12/06/18 05:00 Sodium Chloride IVPB 1.5 mcg/kg/hr TITR [facility] 35.96 mls/hr Administration 0.7 MCG/KG/HR Potassium Phosphate 20 mm/ 256.6667 mls @ 62.5 mls/hr 12/06/18 08:06 Sodium Chloride IVPB 12/06/18 12:12 ONCE ONE Insulin Aspart 1 vial 12/02/18 07:30 12/06/18 06:02 Novolog Vial Sliding Scale - SQ 8 units TID [facility] Administration Protocol Insulin Detemir 20 units 11/30/18 21:42 12/05/18 21:56 Levemir Vial SQ 20 units HS [facility] Administration Methadone HCl 40 mg 12/04/18 06:00 12/06/18 05:36 Dolophine - NGT Not Given DAILY@0600 [facility] Metoclopramide HCl 10 mg 11/29/18 21:00 12/06/18 02:12 Reglan Injection - IVPUSH 10 mg Q6H-IV [facility] Administration Metoprolol Tartrate 25 mg 12/05/18 11:30 12/05/18 21:57 Lopressor - PO 25 mg BID [facility] Administration Midazolam HCl 2 mg 12/05/18 20:18 12/06/18 05:35 Versed - IVPUSH 2 mg Q4H PRN Administration AGITATION Pantoprazole Sodium 40 mg 12/02/18 11:45 12/05/18 09:17 Protonix Iv IVPUSH 40 mg DAILY [facility] Administration Polyethylene Glycol 17 gm 12/03/18 10:58 12/05/18 10:04 Miralax (For Daily Use) - NGT Not Given DAILY [facility] Tiotropium [place] 2 puff 11/26/18 10:00 12/05/18 09:17 Spiriva Respimat IH Not Given DAILY [facility] Valacyclovir HCl 500 mg 12/03/18 10:58 12/05/18 09:17 Valtrex - NGT 500 mg DAILY [facility] Administration ASSESSMENT/PLAN: Patient is a 63 year old male with history of hypertension, hyperlipidemia, insulin dependent diabetes mellitus, peripheral vascular disease, opoid dependence, multiple myeloma, admitted to ICU for acute hypoxic respiratory failure. Neurological -Patient is sedated with Precedex -Versed 2mg IV push Q6H PRN for agitation -Methadone 40mg PO daily -Monitor for signs of mental status change Pulmonary -Acute hypoxic, hypoxemic respiratory failure -Pneumonia, +MRSA nares colonization -Ventilator settings: RR 24, tidal volume 450, PEEP 5, FiO2 40%. Placing on CPAP for weaning trial today. -Follow ABG in AM -Follow daily chest radiograph -Vancomycin 1250mg IV daily -Patient completed 7 days course of Zosyn -Lasix 40mg IV BID. Holding tonights dose, reinstate tomorrow morning. -DuoNebs Q6H, Spiriva 2 puffs IH daily -Maintain oxygen saturation greater than 90% Cardiovascular -Hypertension -NSTEMI -Troponin peaked at 21.6. Discussed with Cardiology, who recommends continuing Aspirin at this time. No indication for Heparin drip -Aspirin 81mg GT daily -Metoprolol 25mg GT daily -Cardiac ECHO shows EF 45-50%, mild global hypokinesis, grade I diastolic dysfunction. -Arterial doppler right upper extremity shows decreased monophasic flow within right radial and ulnar arteries. -Vascular surgery consult appreciated. No surgical intervention indicated at this time. Gastrointestinal -Constipation -History of Hepatitis C -HCV RNA PCR negative -No episodes of emesis overnight. Large bowel movement without melena, hematochezia. -GI consult (Dr. Up) appreciated. -Tube feeds reinstated, after minimal residuals with NG tube clamping trial -Protonix 40mg IV daily -Metoclopramide 10mg IV Q6H -Monitor serial occult blood testing Endocrine -Insulin dependent diabetes mellitus -Insulin sliding scale TID -Fingerstick blood glucose monitoring TID -Gabapentin 100mg PO TID for peripheral neuropathy Hematologic -Multiple Myeloma -S/P 1 unit PRBC transfusion -Maintain Hb above 8.0 -Multiple myeloma treatment, per hematology -Hematology recommendations appreciated Renal -DARIO -improving Hypocalcemia -Corrected Ca 9.3 -Nephrology recommendations (Dr. Cates) appreciated FEN -Fluids: No IV fluids -Electrolytes: Hypokalemia- repleted. Follow CMP; replete as necessary. -Nutrition: NPO Prophylaxis -Heparin 5000u subq TID Lines, Tubes, Drains -Massey catheter changed 12/02/2018 Disposition -Continue care in ICU. Patient is Full Code Visit type - Emergency Visit Emergency Visit: Yes ED Registration Date: 11/20/18 Care time: The patient presented to the Emergency Department on the above date and was hospitalized for further evaluation of their emergent condition. - New Patient This patient is new to me today: No - Critical Care Critical Care patient: Yes Total Critical Care Time (in minutes): 37 Critical Care Statement: The care of this patient involved high complexity decision making to prevent further life threatening deterioration of the patient 's condition and/or to evaluate & treat vital organ system(s) failure or risk of failure. - Discharge Referral Referred to [facility] No
[2018-12-06] MEDS: ASPIRIN 81 MG CHEWABLE TABLETS NGT SCH (09:11)
[2018-12-06] MEDS: busPIRone HCL 5 MG TABLET NGT SCH ×2 (09:12→22:40)
[2018-12-06] MEDS: METOPROLOL TARTRATE 25 MG TABLET (FP) PO SCH ×2 (09:12→22:09)
[2018-12-06] MEDS: CHLORHEXIDINE GLUCONATE 0.12% 15ML CUP MM SCH ×2 (09:13→22:10)
[2018-12-06] MEDS: CALCIUM 500MG/VIT-D 200 UNITS COMBO TABLET (FP) NGT SCH (09:13)
[2018-12-06] MEDS: POLYETHYLENE GLYCOL 3350 119 GM BTL NGT SCH (09:13)
[2018-12-06] MEDS: PANTOPRAZOLE SODIUM 40 MG VIAL IVPUSH SCH (09:14)
[2018-12-06] MEDS: TIOTROPIUM BROMIDE 2.5 MCG (SPIRIVA) RESPIMAT INHALER IH SCH (09:14)
[2018-12-06] MEDS: ALLOPURINOL 300 MG TABLET (FP) NGT SCH (09:14)
[2018-12-06] MEDS: valACYclovir HCL 500 MG TABLET (FP) NGT SCH (09:14)
--- NOTE | 2018-12-06 09:53 | PN ---
Physical Exam: SUBJECTIVE: Patient seen and examined; sedated; H/H stable; low grade fever ON: electrolytes depleted OBJECTIVE: Vital Signs Period Temp Pulse Resp BP Sys/Andre Pulse Ox Last 24 Hr 99.6 F-101.4 F 68-104 22-36 92-191/64-99 96-98 GENERAL: The patient is sedated; intubated LUNGS:scattered rhonchi HEART: Regular rate and rhythm, S1, S2 without murmur, rub or gallop. ABDOMEN: Soft, nontender, nondistended, normoactive bowel sounds, no guarding, no rebound, no hepatosplenomegaly, no masses. EXTREMITIES: 2+ pulses, warm, well-perfused, no edema. SKIN: Warm, dry, normal turgor, no rashes or lesions noted Laboratory Results - last 24 hr 12/05/18 12/05/18 12/05/18 11:51 12:23 13:00 WBC RBC Hgb Hct MCV MCH MCHC RDW Plt Count MPV Puncture Site Left radial ABG pH 7.45 ABG pCO2 at Pt Temp 40.0 ABG pO2 at Pt Temp 124.0 H D ABG HCO3 27.3 H ABG O2 Sat (Measured) 98.5 ABG O2 Content 13.7 L ABG Base Excess 3.5 H Benny Test Positive Oxygen Flow Rate Yes Sodium 140 Potassium 3.3 L Chloride 102 Carbon Dioxide 29 Anion Gap 9 BUN 47 H Creatinine 1.8 H Creat Clearance w eGFR 38.06 POC Glucometer 176 Random Glucose 253 H Calcium 7.6 L Phosphorus Magnesium Total Bilirubin AST ALT Alkaline Phosphatase Total Protein Albumin Urine Color Urine Appearance Urine pH Ur Specific [place] Urine Protein Urine Glucose (UA) Urine Ketones Urine Blood Urine Nitrite Urine Bilirubin Urine Urobilinogen Ur Leukocyte Esterase Urine WBC (Auto) Urine RBC (Auto) Ur Epithelial Cells Urine Bacteria Granular Casts Urine Mucus Urine Yeast 12/05/18 12/05/18 12/05/18 13:45 21:00 21:47 WBC RBC Hgb Hct MCV MCH MCHC RDW Plt Count MPV Puncture Site ABG pH ABG pCO2 at Pt Temp ABG pO2 at Pt Temp ABG HCO3 ABG O2 Sat (Measured) ABG O2 Content ABG Base Excess Benny Test Oxygen Flow Rate Sodium Potassium Chloride Carbon Dioxide Anion Gap BUN Creatinine Creat Clearance w eGFR POC Glucometer 251 233 Random Glucose Calcium Phosphorus Magnesium Total Bilirubin AST ALT Alkaline Phosphatase Total Protein Albumin Urine Color Yellow Urine Appearance Cloudy Urine pH 5.0 Ur Specific [place] 1.017 Urine Protein 3+ H Urine Glucose (UA) 1+ H Urine Ketones Negative Urine Blood 1+ H Urine Nitrite Negative Urine Bilirubin Negative Urine Urobilinogen Negative Ur Leukocyte Esterase Trace Urine WBC (Auto) 13 Urine RBC (Auto) 7 Ur Epithelial Cells Rare Urine Bacteria Rare Granular Casts 37 Urine Mucus Rare Urine Yeast Moderate 12/06/18 12/06/18 12/06/18 05:30 05:30 05:49 WBC 11.3 H RBC 3.47 L Hgb 10.2 L Hct 30.2 L MCV 86.9 MCH 29.5 MCHC 34.0 RDW 17.9 H Plt Count 217 MPV 8.7 Puncture Site ABG pH ABG pCO2 at Pt Temp ABG pO2 at Pt Temp ABG HCO3 ABG O2 Sat (Measured) ABG O2 Content ABG Base Excess Benny Test Oxygen Flow Rate Sodium 143 Potassium 3.2 L Chloride 107 Carbon Dioxide 26 Anion Gap 10 BUN 55 H Creatinine 1.7 H Creat Clearance w eGFR 40.65 POC Glucometer 338 Random Glucose 322 H* Calcium 7.9 L Phosphorus 2.5 Magnesium 1.7 L Total Bilirubin 0.5 AST 62 H ALT 74 H Alkaline Phosphatase 175 H Total Protein 5.9 L Albumin 2.2 L Urine Color Urine Appearance Urine pH Ur Specific [place] Urine Protein Urine Glucose (UA) Urine Ketones Urine Blood Urine Nitrite Urine Bilirubin Urine Urobilinogen Ur Leukocyte Esterase Urine WBC (Auto) Urine RBC (Auto) Ur Epithelial Cells Urine Bacteria Granular Casts Urine Mucus Urine Yeast Active Medications Generic Name Dose Route Start Last Admin Trade Name Owenq PRN Reason Stop Dose Admin Acetaminophen 650 mg 12/05/18 13:14 12/05/18 14:00 Tylenol - PO 650 mg Q6H PRN Administration FEVER Albuterol Sulfate 1 amp 11/29/18 21:21 12/02/18 20:17 Ventolin 0.083% Nebulizer Soln - NEB 1 amp Q4H PRN Administration SHORT OF BREATH/WHEEZING Allopurinol 300 mg 12/03/18 10:57 12/06/18 09:14 Zyloprim - NGT 300 mg DAILY YAKOV Administration Aspirin 81 mg 12/03/18 10:58 12/06/18 09:11 Asa - NGT 81 mg DAILY YAKOV Administration Atorvastatin Calcium 80 mg 12/03/18 22:00 12/05/18 21:57 Lipitor - NGT 80 mg HS YAKOV Administration Buspirone HCl 15 mg 12/03/18 10:58 12/06/18 09:12 Buspar - NGT 15 mg BID YAKOV Administration Calcium Carbonate/Cholecalciferol 2 tab 12/03/18 10:58 12/06/18 09:13 Os-Kyler 500+D - NGT 2 tab DAILY YAKOV Administration Chlorhexidine Gluconate 1 applic 11/26/18 22:00 12/05/18 21:55 Hibiclens For Decolonization - TP 1 applic HS YAKOV Administration Chlorhexidine Gluconate 15 ml 11/27/18 22:00 12/06/18 09:13 Peridex - MM 15 ml BID YAKOV Administration Docusate Sodium 100 mg 11/26/18 08:54 Colace - PO BID PRN CONSTIPATION Furosemide 40 mg 11/29/18 14:45 12/06/18 05:35 Lasix Injection - IVPUSH 40 mg BID@0600,1400 YAKOV Administration Gabapentin 100 mg 12/03/18 14:00 12/06/18 05:35 Neurontin - NGT 100 mg TID YAKOV Administration Heparin Sodium (Porcine) 5,000 unit 11/30/18 22:00 12/06/18 05:39 Heparin - SQ 5,000 unit TID YAKOV Administration Vancomycin HCl 1,250 mg/ 250 mls @ 250 mls/2 hr 12/03/18 11:15 12/05/18 11:54 Dextrose IVPB 250 mls/2 hr Q24H YAKOV Administration Protocol Dexmedetomidine HCl 400 mcg/ 100 mls @ 16.78 mls/hr 12/05/18 18:00 12/06/18 05:00 Sodium Chloride IVPB 1.5 mcg/kg/hr TITR YAKOV 35.96 mls/hr Administration 0.7 MCG/KG/HR Potassium Phosphate 20 mm/ 256.6667 mls @ 62.5 mls/hr 12/06/18 08:06 08:33 Sodium Chloride IVPB 12/06/18 12:12 62.5 mls/hr ONCE ONE Administration Insulin Aspart 1 vial 12/02/18 07:30 12/06/18 06:02 Novolog Vial Sliding Scale - SQ 8 units TID YAKOV Administration Protocol Insulin Detemir 20 units 11/30/18 21:42 12/05/18 21:56 Levemir Vial SQ 20 units HS YAKOV Administration Methadone HCl 40 mg 12/04/18 06:00 12/06/18 05:36 Dolophine - NGT Not Given DAILY@0600 YAKOV Metoclopramide HCl 10 mg 11/29/18 21:00 12/06/18 09:11 Reglan Injection - IVPUSH 10 mg Q6H-IV YAKOV Administration Metoprolol Tartrate 25 mg 12/05/18 11:30 12/06/18 09:12 Lopressor - PO 25 mg BID YAKOV Administration Midazolam HCl 2 mg 12/05/18 20:18 12/06/18 05:35 Versed - IVPUSH 2 mg Q4H PRN Administration AGITATION Pantoprazole Sodium 40 mg 12/02/18 11:45 12/06/18 09:14 Protonix Iv IVPUSH 40 mg DAILY YAKOV Administration Tiotropium [place] 2 puff 11/26/18 10:00 12/06/18 09:14 Spiriva Respimat IH Not Given DAILY YAKOV Valacyclovir HCl 500 mg 12/03/18 10:58 12/06/18 09:14 Valtrex - NGT 500 mg DAILY YAKOV Administration ASSESSMENT/PLAN: 63 yo M, with PMH of HTN, HLD, IDDM, Hep C (s/p Harvoni), PVD, past opioid use ( on methadone), and multiple myeloma , who was admitted for nausea, vomiting, abdominal distension and discomfort, and constipation worsened over the weekend. He received radiation to L spine and left acetabulum. MM with osteolytic lesions NSTEMI Acute hypercapniec/hypoxic respiratory failure sec to pulmonary edema ; PNA? anemia CKD hyponatremia hypertension DM -management of acute respiratory failure by ICU team -H/H stable; no active bleed; off hep ggt -MRI noted neurosurgery eval; vertebral MM; nothing to do at this time; no significant neurological element compression -He has been on velcade/cytoxan/dexamethasone and started zometa monthly -seen by rad/onc; can f/u in office -PULM/GI/CARDS/ID following Myeloma--on velcade/cytoxan/dex --last dose 11/18 On zometa--11/18 treatment held last week light chains decreasing slowly s/p rt to lspine and left acetabular fx will resume based on clinical course Visit type - Emergency Visit Emergency Visit: Yes ED Registration Date: 11/20/18 Care time: The patient presented to the Emergency Department on the above date and was hospitalized for further evaluation of their emergent condition. - New Patient This patient is new to me today: No - Critical Care Critical Care patient: Yes Total Critical Care Time (in minutes): 50 Critical Care Statement: The care of this patient involved high complexity decision making to prevent further life threatening deterioration of the patient 's condition and/or to evaluate & treat vital organ system(s) failure or risk of failure.
--- NOTE | 2018-12-06 10:01 | PN ---
Progress Note, Physician - Current Medication List Current Medications: Active Medications Acetaminophen (Tylenol -) 650 mg PO Q6H PRN PRN Reason: FEVER Last Admin: 12/05/18 14:00 Dose: 650 mg Albuterol Sulfate (Ventolin 0.083% Nebulizer Soln -) 1 amp NEB Q4H PRN PRN Reason: SHORT OF BREATH/WHEEZING Last Admin: 12/02/18 20:17 Dose: 1 amp Allopurinol (Zyloprim -) 300 mg NGT DAILY [facility] Last Admin: 12/06/18 09:14 Dose: 300 mg Aspirin (Asa -) 81 mg NGT DAILY [facility] Last Admin: 12/06/18 09:11 Dose: 81 mg Atorvastatin Calcium (Lipitor -) 80 mg NGT HS [facility] Last Admin: 12/05/18 21:57 Dose: 80 mg Buspirone HCl (Buspar -) 15 mg NGT BID [facility] Last Admin: 12/06/18 09:12 Dose: 15 mg Calcium Carbonate/Cholecalciferol (Os-Kyler 500+D -) 2 tab NGT DAILY [facility] Last Admin: 12/06/18 09:13 Dose: 2 tab Chlorhexidine Gluconate (Hibiclens For Decolonization -) 1 applic TP HS [facility] Last Admin: 12/05/18 21:55 Dose: 1 applic Chlorhexidine Gluconate (Peridex -) 15 ml MM BID [facility] Last Admin: 12/06/18 09:13 Dose: 15 ml Docusate Sodium (Colace -) 100 mg PO BID PRN PRN Reason: CONSTIPATION Furosemide (Lasix Injection -) 40 mg IVPUSH BID@0600,1400 [facility] Last Admin: 12/06/18 05:35 Dose: 40 mg Gabapentin (Neurontin -) 100 mg NGT TID [facility] Last Admin: 12/06/18 05:35 Dose: 100 mg Heparin Sodium (Porcine) (Heparin -) 5,000 unit SQ TID [facility] Last Admin: 12/06/18 05:39 Dose: 5,000 unit Vancomycin HCl 1,250 mg/ (Dextrose) 250 mls @ 250 mls/2 hr IVPB Q24H [facility]; Protocol Last Admin: 12/05/18 11:54 Dose: 250 mls/2 hr Dexmedetomidine HCl 400 mcg/ (Sodium Chloride) 100 mls @ 16.78 mls/hr IVPB TITR YAKOV Last Admin: 12/06/18 05:00 Dose: 1.5 mcg/kg/hr, 35.96 mls/hr Potassium Phosphate 20 mm/ (Sodium Chloride) 256.6667 mls @ 62.5 mls/hr IVPB ONCE ONE Stop: 12/06/18 12:12 Last Admin: 12/06/18 08:33 Dose: 62.5 mls/hr Insulin Aspart (Novolog Vial Sliding Scale -) 1 vial SQ TID [facility]; Protocol Last Admin: 12/06/18 06:02 Dose: 8 units Insulin Detemir (Levemir Vial) 20 units SQ HS [facility] Last Admin: 12/05/18 21:56 Dose: 20 units Methadone HCl (Dolophine -) 40 mg NGT DAILY@0600 [facility] Last Admin: 12/06/18 05:36 Dose: Not Given Metoclopramide HCl (Reglan Injection -) 10 mg IVPUSH Q6H-IV [facility] Last Admin: 12/06/18 09:11 Dose: 10 mg Metoprolol Tartrate (Lopressor -) 25 mg PO BID [facility] Last Admin: 12/06/18 09:12 Dose: 25 mg Midazolam HCl (Versed -) 2 mg IVPUSH Q4H PRN PRN Reason: AGITATION Last Admin: 12/06/18 05:35 Dose: 2 mg Pantoprazole Sodium (Protonix Iv) 40 mg IVPUSH DAILY [facility] Last Admin: 12/06/18 09:14 Dose: 40 mg Tiotropium [place] (Spiriva Respimat) 2 puff IH DAILY [facility] Last Admin: 12/06/18 09:14 Dose: Not Given Valacyclovir HCl (Valtrex -) 500 mg NGT DAILY [facility] Last Admin: 12/06/18 09:14 Dose: 500 mg - Objective Vital Signs: Vital Signs Temperature 99.6 F 12/06/18 06:00 Pulse Rate 72 12/06/18 08:27 Respiratory Rate 29 H 12/06/18 08:28 Blood Pressure 130/73 12/06/18 08:00 O2 Sat by Pulse Oximetry (%) 97 12/06/18 08:27 Labs: CBC, BMP 12/06/18 05:30 12/06/18 05:30 INR, PTT INR 1.19 (0.83-1.09) H 11/30/18 05:30 Fibrinogen > 500.0 mg/dL (238-498) H 11/25/18 20:00 Problem List - Problems (1) Respiratory failure Code(s): J96.90 - RESPIRATORY FAILURE, UNSP, UNSP W HYPOXIA OR HYPERCAPNIA (2) CKD (chronic kidney disease) Code(s): N18.9 - CHRONIC KIDNEY DISEASE, UNSPECIFIED (3) Diabetes Code(s): E11.9 - TYPE 2 DIABETES MELLITUS WITHOUT COMPLICATIONS Qualifiers: Diabetes mellitus type: type 2 (4) Hyponatremia Code(s): E87.1 - HYPO-OSMOLALITY AND HYPONATREMIA (5) Narcotic dependence Code(s): F11.20 - OPIOID DEPENDENCE, UNCOMPLICATED (6) Vertebral compression fracture Code(s): M48.50XA - COLLAPSED VERTEBRA, NEC, SITE UNSP, INIT (7) Edema Code(s): R60.9 - EDEMA, UNSPECIFIED (8) Anemia Code(s): D64.9 - ANEMIA, UNSPECIFIED (9) Elevated troponin Code(s): R74.8 - ABNORMAL LEVELS OF OTHER SERUM ENZYMES (10) Multiple myeloma Code(s): C90.00 - MULTIPLE MYELOMA NOT HAVING ACHIEVED REMISSION (11) Pulmonary congestion Code(s): R09.89 - OTH SYMPTOMS AND SIGNS INVOLVING THE CIRC AND RESP SYSTEMS Assessment/Plan - Problems (1) Vertebral compression fracture Assessment/Plan: radiation oncology and JOSE MANUEL noted to follow up as outpatient Code(s): M48.50XA - COLLAPSED VERTEBRA, NEC, SITE UNSP, INIT (2) Hyponatremia Assessment/Plan: resolve now sodium is 142 Code(s): E87.1 - HYPO-OSMOLALITY AND HYPONATREMIA (3) Diabetes Assessment/Plan: levemir hgba1c 7.7 Code(s): E11.9 - TYPE 2 DIABETES MELLITUS WITHOUT COMPLICATIONS Qualifiers: Diabetes mellitus type: type 2 (4) Multiple myeloma Assessment/Plan: last treatment was 11/18 Code(s): C90.00 - MULTIPLE MYELOMA NOT HAVING ACHIEVED REMISSION (5) Hypocalcemia Assessment/Plan: now calcium is better Code(s): E83.51 - HYPOCALCEMIA (6) Elevated troponin Assessment/Plan: due to demand ischemia on aspirin and lipitor Code(s): R74.8 - ABNORMAL LEVELS OF OTHER SERUM ENZYMES (7) Respiratory failure Assessment/Plan: iv lasix bid monitor renal function and potassium vent support nebs pulm on case Code(s): J96.90 - RESPIRATORY FAILURE, UNSP, UNSP W HYPOXIA OR HYPERCAPNIA
--- NOTE | 2018-12-06 10:30 | PN ---
Progress Note, Physician History of Present Illness: LETHARGIC ON VENTILATOR NO ACUTE DISTRESS FEBRILE PAST 24HR WBC INCREASED 11.3 REPEAT BC OBTAINED - Current Medication List Current Medications: Active Medications Acetaminophen (Tylenol -) 650 mg PO Q6H PRN PRN Reason: FEVER Last Admin: 12/05/18 14:00 Dose: 650 mg Albuterol Sulfate (Ventolin 0.083% Nebulizer Soln -) 1 amp NEB Q4H PRN PRN Reason: SHORT OF BREATH/WHEEZING Last Admin: 12/02/18 20:17 Dose: 1 amp Allopurinol (Zyloprim -) 300 mg NGT DAILY [facility] Last Admin: 12/06/18 09:14 Dose: 300 mg Aspirin (Asa -) 81 mg NGT DAILY [facility] Last Admin: 12/06/18 09:11 Dose: 81 mg Atorvastatin Calcium (Lipitor -) 80 mg NGT HS [facility] Last Admin: 12/05/18 21:57 Dose: 80 mg Buspirone HCl (Buspar -) 15 mg NGT BID [facility] Last Admin: 12/06/18 09:12 Dose: 15 mg Calcium Carbonate/Cholecalciferol (Os-Kyler 500+D -) 2 tab NGT DAILY [facility] Last Admin: 12/06/18 09:13 Dose: 2 tab Chlorhexidine Gluconate (Hibiclens For Decolonization -) 1 applic TP HS [facility] Last Admin: 12/05/18 21:55 Dose: 1 applic Chlorhexidine Gluconate (Peridex -) 15 ml MM BID [facility] Last Admin: 12/06/18 09:13 Dose: 15 ml Docusate Sodium (Colace -) 100 mg PO BID PRN PRN Reason: CONSTIPATION Furosemide (Lasix Injection -) 40 mg IVPUSH BID@0600,1400 [facility] Last Admin: 12/06/18 05:35 Dose: 40 mg Gabapentin (Neurontin -) 100 mg NGT TID [facility] Last Admin: 12/06/18 05:35 Dose: 100 mg Heparin Sodium (Porcine) (Heparin -) 5,000 unit SQ TID [facility] Last Admin: 12/06/18 05:39 Dose: 5,000 unit Vancomycin HCl 1,250 mg/ (Dextrose) 250 mls @ 250 mls/2 hr IVPB Q24H [facility]; Protocol Last Admin: 12/05/18 11:54 Dose: 250 mls/2 hr Dexmedetomidine HCl 400 mcg/ (Sodium Chloride) 100 mls @ 16.78 mls/hr IVPB TITR [facility] Last Admin: 12/06/18 05:00 Dose: 1.5 mcg/kg/hr, 35.96 mls/hr Potassium Phosphate 20 mm/ (Sodium Chloride) 256.6667 mls @ 62.5 mls/hr IVPB ONCE ONE Stop: 12/06/18 12:12 Last Admin: 12/06/18 08:33 Dose: 62.5 mls/hr Insulin Aspart (Novolog Vial Sliding Scale -) 1 vial SQ TID [facility]; Protocol Last Admin: 12/06/18 06:02 Dose: 8 units Insulin Detemir (Levemir Vial) 20 units SQ HS [facility] Last Admin: 12/05/18 21:56 Dose: 20 units Methadone HCl (Dolophine -) 40 mg NGT DAILY@0600 [facility] Last Admin: 12/06/18 05:36 Dose: Not Given Metoclopramide HCl (Reglan Injection -) 10 mg IVPUSH Q6H-IV [facility] Last Admin: 12/06/18 09:11 Dose: 10 mg Metoprolol Tartrate (Lopressor -) 25 mg PO BID [facility] Last Admin: 12/06/18 09:12 Dose: 25 mg Midazolam HCl (Versed -) 2 mg IVPUSH Q4H PRN PRN Reason: AGITATION Last Admin: 12/06/18 05:35 Dose: 2 mg Pantoprazole Sodium (Protonix Iv) 40 mg IVPUSH DAILY [facility] Last Admin: 12/06/18 09:14 Dose: 40 mg Tiotropium [place] (Spiriva Respimat) 2 puff IH DAILY [facility] Last Admin: 12/06/18 09:14 Dose: Not Given Valacyclovir HCl (Valtrex -) 500 mg NGT DAILY [facility] Last Admin: 12/06/18 09:14 Dose: 500 mg - Objective Vital Signs: Vital Signs Temperature 99.6 F 12/06/18 06:00 Pulse Rate 72 12/06/18 08:27 Respiratory Rate 29 H 12/06/18 08:28 Blood Pressure 130/73 12/06/18 08:00 O2 Sat by Pulse Oximetry (%) 97 12/06/18 08:27 Constitutional: Yes: No Distress Cardiovascular: Yes: Regular Rate and Rhythm, S1, S2 Respiratory: Yes: Mechanically Ventilated Gastrointestinal: Yes: Normal Bowel Sounds, Soft, Abdomen, Obese. No: Tenderness Labs: CBC, BMP 12/06/18 05:30 12/06/18 05:30 INR, PTT INR 1.19 (0.83-1.09) H 11/30/18 05:30 Fibrinogen > 500.0 mg/dL (238-498) H 11/25/18 20:00 Assessment/Plan RESPIRATORY FAILURE PULMONARY EDEMA R/O HCAP MYELOMA DM CKD HX MRSA AWAIT REPEAT C/S CONTINUE VENTILATORY SUPPORT
--- NOTE | 2018-12-06 11:45 | PN ---
Progress Note, Physician History of Present Illness: Pt seen and examined at bedside. He remains in the ICU. He remains intubated. - Current Medication List Current Medications: Active Medications Acetaminophen (Tylenol -) 650 mg PO Q6H PRN PRN Reason: FEVER Last Admin: 12/05/18 14:00 Dose: 650 mg Albuterol Sulfate (Ventolin 0.083% Nebulizer Soln -) 1 amp NEB Q4H PRN PRN Reason: SHORT OF BREATH/WHEEZING Last Admin: 12/02/18 20:17 Dose: 1 amp Allopurinol (Zyloprim -) 300 mg NGT DAILY [facility] Last Admin: 12/06/18 09:14 Dose: 300 mg Aspirin (Asa -) 81 mg NGT DAILY [facility] Last Admin: 12/06/18 09:11 Dose: 81 mg Atorvastatin Calcium (Lipitor -) 80 mg NGT HS [facility] Last Admin: 12/05/18 21:57 Dose: 80 mg Buspirone HCl (Buspar -) 15 mg NGT BID [facility] Last Admin: 12/06/18 09:12 Dose: 15 mg Calcium Carbonate/Cholecalciferol (Os-Kyler 500+D -) 2 tab NGT DAILY [facility] Last Admin: 12/06/18 09:13 Dose: 2 tab Chlorhexidine Gluconate (Hibiclens For Decolonization -) 1 applic TP HS [facility] Last Admin: 12/05/18 21:55 Dose: 1 applic Chlorhexidine Gluconate (Peridex -) 15 ml MM BID [facility] Last Admin: 12/06/18 09:13 Dose: 15 ml Docusate Sodium (Colace -) 100 mg PO BID PRN PRN Reason: CONSTIPATION Furosemide (Lasix Injection -) 40 mg IVPUSH BID@0600,1400 [facility] Last Admin: 12/06/18 05:35 Dose: 40 mg Gabapentin (Neurontin -) 100 mg NGT TID [facility] Last Admin: 12/06/18 05:35 Dose: 100 mg Heparin Sodium (Porcine) (Heparin -) 5,000 unit SQ TID [facility] Last Admin: 12/06/18 05:39 Dose: 5,000 unit Vancomycin HCl 1,250 mg/ (Dextrose) 250 mls @ 250 mls/2 hr IVPB Q24H [facility]; Protocol Last Admin: 12/05/18 11:54 Dose: 250 mls/2 hr Dexmedetomidine HCl 400 mcg/ (Sodium Chloride) 100 mls @ 16.78 mls/hr IVPB TITR [facility] Last Admin: 12/06/18 05:00 Dose: 1.5 mcg/kg/hr, 35.96 mls/hr Potassium Phosphate 20 mm/ (Sodium Chloride) 256.6667 mls @ 62.5 mls/hr IVPB ONCE ONE Stop: 12/06/18 12:12 Last Admin: 12/06/18 08:33 Dose: 62.5 mls/hr Insulin Aspart (Novolog Vial Sliding Scale -) 1 vial SQ TID [facility]; Protocol Last Admin: 12/06/18 06:02 Dose: 8 units Insulin Detemir (Levemir Vial) 20 units SQ HS [facility] Last Admin: 12/05/18 21:56 Dose: 20 units Methadone HCl (Dolophine -) 40 mg NGT DAILY@0600 [facility] Last Admin: 12/06/18 05:36 Dose: Not Given Metoclopramide HCl (Reglan Injection -) 10 mg IVPUSH Q6H-IV [facility] Last Admin: 12/06/18 09:11 Dose: 10 mg Metoprolol Tartrate (Lopressor -) 25 mg PO BID [facility] Last Admin: 12/06/18 09:12 Dose: 25 mg Midazolam HCl (Versed -) 2 mg IVPUSH Q4H PRN PRN Reason: AGITATION Last Admin: 12/06/18 05:35 Dose: 2 mg Pantoprazole Sodium (Protonix Iv) 40 mg IVPUSH DAILY [facility] Last Admin: 12/06/18 09:14 Dose: 40 mg Tiotropium [place] (Spiriva Respimat) 2 puff IH DAILY [facility] Last Admin: 12/06/18 09:14 Dose: Not Given Valacyclovir HCl (Valtrex -) 500 mg NGT DAILY [facility] Last Admin: 12/06/18 09:14 Dose: 500 mg - Objective Vital Signs: Vital Signs Temperature 99.6 F 12/06/18 06:00 Pulse Rate 72 12/06/18 08:27 Respiratory Rate 29 H 12/06/18 08:28 Blood Pressure 130/73 12/06/18 08:00 O2 Sat by Pulse Oximetry (%) 97 12/06/18 08:27 Constitutional: Yes: Calm Eyes: Yes: Conjunctiva Clear HENT: Yes: Atraumatic Neck: Yes: Supple Cardiovascular: Yes: S1, S2 Respiratory: Yes: Mechanically Ventilated Gastrointestinal: Yes: Soft, Abdomen, Obese Genitourinary: Yes: Massey Present Musculoskeletal: Yes: Muscle Weakness Edema: Yes Edema: LLE: Trace, RLE: Trace Integumentary: Yes: Venous Stasis Changes Neurological: Yes: Lethargy Labs: CBC, BMP 12/06/18 05:30 12/06/18 05:30 INR, PTT INR 1.19 (0.83-1.09) H 11/30/18 05:30 Fibrinogen > 500.0 mg/dL (238-498) H 11/25/18 20:00 - ....Imaging Chest X-ray: Report Reviewed Problem List - Problems (1) CKD (chronic kidney disease) Code(s): N18.9 - CHRONIC KIDNEY DISEASE, UNSPECIFIED (2) Constipation Code(s): K59.00 - CONSTIPATION, UNSPECIFIED Qualifiers: Constipation type: unspecified constipation type Qualified Code(s): K59.00 - Constipation, unspecified (3) Hyponatremia Code(s): E87.1 - HYPO-OSMOLALITY AND HYPONATREMIA Assessment/Plan Current Medications Generic Name Dose Route Start Last Admin Trade Name Freq PRN Reason Stop Dose Admin Acetaminophen 650 mg 12/05/18 13:14 12/05/18 14:00 Tylenol - PO 650 mg Q6H PRN Administration FEVER Albuterol Sulfate 1 amp 11/29/18 21:21 12/02/18 20:17 Ventolin 0.083% Nebulizer Soln - NEB 1 amp Q4H PRN Administration SHORT OF BREATH/WHEEZING Allopurinol 300 mg 12/03/18 10:57 12/06/18 09:14 Zyloprim - NGT 300 mg DAILY [facility] Administration Aspirin 81 mg 12/03/18 10:58 12/06/18 09:11 Asa - NGT 81 mg DAILY [facility] Administration Atorvastatin Calcium 80 mg 12/03/18 22:00 12/05/18 21:57 Lipitor - NGT 80 mg HS [facility] Administration Buspirone HCl 15 mg 12/03/18 10:58 12/06/18 09:12 Buspar - NGT 15 mg BID [facility] Administration Calcium Carbonate/Cholecalciferol 2 tab 12/03/18 10:58 12/06/18 09:13 Os-Kyler 500+D - NGT 2 tab DAILY [facility] Administration Chlorhexidine Gluconate 1 applic 11/26/18 22:00 12/05/18 21:55 Hibiclens For Decolonization - TP 1 applic HS [facility] Administration Chlorhexidine Gluconate 15 ml 11/27/18 22:00 12/06/18 09:13 Peridex - MM 15 ml BID [facility] Administration Docusate Sodium 100 mg 11/26/18 08:54 Colace - PO BID PRN CONSTIPATION Furosemide 40 mg 11/29/18 14:45 12/06/18 05:35 Lasix Injection - IVPUSH 40 mg BID@0600,1400 [facility] Administration Gabapentin 100 mg 12/03/18 14:00 12/06/18 05:35 Neurontin - NGT 100 mg TID [facility] Administration Heparin Sodium (Porcine) 5,000 unit 11/30/18 22:00 12/06/18 05:39 Heparin - SQ 5,000 unit TID [facility] Administration Vancomycin HCl 1,250 mg/ 250 mls @ 250 mls/2 hr 12/03/18 11:15 12/05/18 11:54 Dextrose IVPB 250 mls/2 hr Q24H [facility] Administration Protocol Dexmedetomidine HCl 400 mcg/ 100 mls @ 16.78 mls/hr 12/05/18 18:00 12/06/18 05:00 Sodium Chloride IVPB 1.5 mcg/kg/hr TITR [facility] 35.96 mls/hr Administration 0.7 MCG/KG/HR Potassium Phosphate 20 mm/ 256.6667 mls @ 62.5 mls/hr 12/06/18 08:06 08:33 Sodium Chloride IVPB 12/06/18 12:12 62.5 mls/hr ONCE ONE Administration Insulin Aspart 1 vial 12/02/18 07:30 12/06/18 06:02 Novolog Vial Sliding Scale - SQ 8 units TID [facility] Administration Protocol Insulin Detemir 20 units 11/30/18 21:42 12/05/18 21:56 Levemir Vial SQ 20 units HS [facility] Administration Methadone HCl 40 mg 12/04/18 06:00 12/06/18 05:36 Dolophine - NGT Not Given DAILY@0600 [facility] Metoclopramide HCl 10 mg 11/29/18 21:00 12/06/18 09:11 Reglan Injection - IVPUSH 10 mg Q6H-IV [facility] Administration Metoprolol Tartrate 25 mg 12/05/18 11:30 12/06/18 09:12 Lopressor - PO 25 mg BID [facility] Administration Midazolam HCl 2 mg 12/05/18 20:18 12/06/18 05:35 Versed - IVPUSH 2 mg Q4H PRN Administration AGITATION Pantoprazole Sodium 40 mg 12/02/18 11:45 12/06/18 09:14 Protonix Iv IVPUSH 40 mg DAILY [facility] Administration Tiotropium [place] 2 puff 11/26/18 10:00 12/06/18 09:14 Spiriva Respimat IH Not Given DAILY [facility] Valacyclovir HCl 500 mg 12/03/18 10:58 12/06/18 09:14 Valtrex - NGT 500 mg DAILY [facility] Administration Impression 1. hyponatremia 2. CKD 3. nausea and vomiting 4. htn 5. DM 6. 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 multiple myeloma 9. anemia 10. proteinuria 11. hyperkalemia 12. resp failure 13. volume overload Plan - volume status clinically appears to be improving - cxr reviewed, he still has congestion - cont lasix - monitor renal function - monitor urine output - vent support - cont ICU care Dr Cates
--- NOTE | 2018-12-06 12:50 | PN ---
Teaching Attending Note Name of Resident: Tarun Guzmán ATTENDING PHYSICIAN STATEMENT I saw and evaluated the patient. I reviewed the resident's note and discussed the case with the resident. I agree with the resident's findings and plan as documented. SUBJECTIVE: Pt seen and examined in the ICU. Remains intubated, awake on low dose sedation. On CPAP/PS but with labored breaths. Febrile overnight. OBJECTIVE: Vital Signs Period Temp Pulse Resp BP Sys/Andre Pulse Ox Last 24 Hr 99.6 F-101.2 F 68-96 22-36 92-191/64-91 96-98 Intake & Output 12/03/18 12/04/18 12/05/18 12/06/18 23:59 23:59 23:59 23:59 Intake Total 1565 2015 184 928 Output Total 9060 4000 2600 400 Balance -935 -1984 -751 528 Weight 103 kg 98.475 kg 95.9 kg 93.894 kg Gen: intubated, tachypneic Heart: RRR Lung: scattered rhonchi Abd: soft, nontender Ext: no edema CBC, BMP 12/06/18 05:30 12/06/18 05:30 Active Medications Acetaminophen (Tylenol -) 650 mg PO Q6H PRN PRN Reason: FEVER Last Admin: 12/05/18 14:00 Dose: 650 mg Albuterol Sulfate (Ventolin 0.083% Nebulizer Soln -) 1 amp NEB Q4H PRN PRN Reason: SHORT OF BREATH/WHEEZING Last Admin: 12/02/18 20:17 Dose: 1 amp Allopurinol (Zyloprim -) 300 mg NGT DAILY [facility] Last Admin: 12/06/18 09:14 Dose: 300 mg Aspirin (Asa -) 81 mg NGT DAILY [facility] Last Admin: 12/06/18 09:11 Dose: 81 mg Atorvastatin Calcium (Lipitor -) 80 mg NGT HS [facility] Last Admin: 12/05/18 21:57 Dose: 80 mg Buspirone HCl (Buspar -) 15 mg NGT BID [facility] Last Admin: 12/06/18 09:12 Dose: 15 mg Calcium Carbonate/Cholecalciferol (Os-Kyler 500+D -) 2 tab NGT DAILY [facility] Last Admin: 12/06/18 09:13 Dose: 2 tab Chlorhexidine Gluconate (Hibiclens For Decolonization -) 1 applic TP HS [facility] Last Admin: 12/05/18 21:55 Dose: 1 applic Chlorhexidine Gluconate (Peridex -) 15 ml MM BID [facility] Last Admin: 12/06/18 09:13 Dose: 15 ml Docusate Sodium (Colace -) 100 mg PO BID PRN PRN Reason: CONSTIPATION Furosemide (Lasix Injection -) 40 mg IVPUSH BID@0600,1400 [facility] Last Admin: 12/06/18 05:35 Dose: 40 mg Gabapentin (Neurontin -) 100 mg NGT TID [facility] Last Admin: 12/06/18 05:35 Dose: 100 mg Heparin Sodium (Porcine) (Heparin -) 5,000 unit SQ TID [facility] Last Admin: 12/06/18 05:39 Dose: 5,000 unit Vancomycin HCl 1,250 mg/ (Dextrose) 250 mls @ 250 mls/2 hr IVPB Q24H [facility]; Protocol Last Admin: 12/05/18 11:54 Dose: 250 mls/2 hr Dexmedetomidine HCl 400 mcg/ (Sodium Chloride) 100 mls @ 16.78 mls/hr IVPB TITR [facility] Last Admin: 12/06/18 05:00 Dose: 1.5 mcg/kg/hr, 35.96 mls/hr Insulin Aspart (Novolog Vial Sliding Scale -) 1 vial SQ TID [facility]; Protocol Last Admin: 12/06/18 06:02 Dose: 8 units Insulin Detemir (Levemir Vial) 20 units SQ [facility] Last Admin: 12/05/18 21:56 Dose: 20 units Methadone HCl (Dolophine -) 40 mg NGT DAILY@0600 [facility] Last Admin: 12/06/18 05:36 Dose: Not Given Metoclopramide HCl (Reglan Injection -) 10 mg IVPUSH Q6H-IV [facility] Last Admin: 12/06/18 09:11 Dose: 10 mg Metoprolol Tartrate (Lopressor -) 25 mg PO BID [facility] Last Admin: 12/06/18 09:12 Dose: 25 mg Midazolam HCl (Versed -) 2 mg IVPUSH Q4H PRN PRN Reason: AGITATION Last Admin: 12/06/18 05:35 Dose: 2 mg Pantoprazole Sodium (Protonix Iv) 40 mg IVPUSH DAILY [facility] Last Admin: 12/06/18 09:14 Dose: 40 mg Tiotropium [place] (Spiriva Respimat) 2 puff IH DAILY [facility] Last Admin: 12/06/18 09:14 Dose: Not Given Valacyclovir HCl (Valtrex -) 500 mg NGT DAILY [facility] Last Admin: 12/06/18 09:14 Dose: 500 mg ASSESSMENT AND PLAN: Acute Hypoxic and Hypercapneic Respiratory Failure Acute Pulmonary Edema Acute NSTEMI r/o Pneumonia Acute on Chronic Renal Failure HTN DM COPD Methadone Maintenance - continue lasix - monitor urine output, creatinine - replete lytes - ASA - inhaled bronchodilators - hold sedation to assess mental status - spontaneous breathing trials as tolerated - check ABG - enteral feeds - DVT/GI prophylaxis - continue ICU monitoring critical care time spent in reviewing chart, evaluating patient and formulating plan 35 min
[2018-12-06] MEDS ORDERED: PT OWN MED DRAWER 7, Y5N ONE (13:42)
[2018-12-06] MEDS: VANCOMYCIN HCL 1,250 MG in DEXTROSE 5%-WATER - 250 ML IVPB SCH (14:21)
[2018-12-06] MEDS: CHLORHEXIDINE GLUCONATE 4% CLEANSER FOR DECOLONIZATION TP SCH (22:09)
[2018-12-06] MEDS: ATORVASTATIN CA 80 MG TABLET (FP) NGT SCH (22:09)
[2018-12-06] MEDS: INSULIN (LEVEMIR) 100 UNITS/ML UNITS SQ SCH (22:40)
[2018-12-07] MEDS: METOCLOPRAMIDE HCL INJECTION 10 MG/2 ML VIAL IVPUSH SCH ×4 (02:27→21:47)
[2018-12-07] MEDS: DEXMEDETOMIDINE HCL 400 MCG in SODIUM CHLORIDE 96 ML IVPB SCH ×2 (02:34→18:09)
[2018-12-07] MEDS: GABAPENTIN 100 MG CAPSULE (FP) NGT SCH ×3 (05:50→21:48)
[2018-12-07] MEDS: HEPARIN NA (PORCINE) 5,000 UNITS/ML 1ML VIAL SQ SCH ×3 (05:50→21:48)
[2018-12-07] MEDS: METHADONE HCL 40 MG DISPERSABLE TABLET NGT SCH ×2 (05:50→09:19)
[2018-12-07] MEDS: INSULIN SLIDING SCALE (NOVOLOG) 1 VIAL SQ SCH ×3 (05:51→22:05)
[2018-12-07 06:12] LABS: ARTERIAL BLOOD GAS PCO2 40.3 mmHg (35-45); ARTERIAL BLOOD GAS pH 7.44 (7.35-7.45)
[2018-12-07 06:13] LABS: ARTERIAL BLD GAS O2 SATURATION 95.8 % (90-98.9); ARTERIAL BLOOD GAS PO2 91.1 mmHg (80-100)
[2018-12-07 06:14] LABS: ARTERIAL BLOOD GAS BASE EXCESS 3.5 meq/l (-2-2)
[2018-12-07 06:15] LABS: ALLENS TEST POSITIVE
[2018-12-07 06:15] LABS: HEMATOCRIT 27.4 % (35.4-49); HEMOGLOBIN 9.2 GM/dL (11.7-16.9); MCH 28.9 pg (25.7-33.7); MCHC 33.7 g/dl (32.0-35.9); MEAN CELL VOLUME 85.8 fl (80-96); MEAN PLT VOLUME 8.4 fl (7.5-11.1); PLATELET COUNT 204 K/MM3 (134-434); RDW 17.7 % (11.9-15.9); WHITE BLOOD COUNT 8.5 K/mm3 (4.0-10.0)
[2018-12-07 06:59] LABS: ALK PHOS 157 U/L (45-117); ANION GAP 7 MMOL/L (8-16); BILIRUBIN,TOTAL 0.4 mg/dL (0.2-1); BLOOD UREA NITROGEN 58 mg/dL (7-18); CHLORIDE 109 mmol/L (98-107); CO2 29 mmol/L (21-32); CREATININE 1.5 mg/dL (0.55-1.3); GLUCOSE,RANDOM 254 mg/dL (74-106); MAGNESIUM 2.2 mg/dL (1.8-2.4); PHOSPHOROUS 3.2 mg/dL (2.5-4.9); POTASSIUM 3.4 mmol/L (3.5-5.1); SGOT/AST 71 U/L (15-37); SGPT/ALT 75 U/L (13-61); SODIUM 145 mmol/L (136-145); TOT PROT 5.5 g/dl (6.4-8.2)
--- NOTE | 2018-12-07 07:22 | PN ---
Progress Note, Physician - Current Medication List Current Medications: Active Medications Acetaminophen (Tylenol -) 650 mg PO Q6H PRN PRN Reason: FEVER Last Admin: 12/05/18 14:00 Dose: 650 mg Albuterol Sulfate (Ventolin 0.083% Nebulizer Soln -) 1 amp NEB Q4H PRN PRN Reason: SHORT OF BREATH/WHEEZING Last Admin: 12/02/18 20:17 Dose: 1 amp Allopurinol (Zyloprim -) 300 mg NGT DAILY [facility] Last Admin: 12/06/18 09:14 Dose: 300 mg Aspirin (Asa -) 81 mg NGT DAILY [facility] Last Admin: 12/06/18 09:11 Dose: 81 mg Atorvastatin Calcium (Lipitor -) 80 mg NGT HS [facility] Last Admin: 12/06/18 22:09 Dose: 80 mg Buspirone HCl (Buspar -) 15 mg NGT BID [facility] Last Admin: 12/06/18 22:40 Dose: 15 mg Calcium Carbonate/Cholecalciferol (Os-Kyler 500+D -) 2 tab NGT DAILY [facility] Last Admin: 12/06/18 09:13 Dose: 2 tab Chlorhexidine Gluconate (Hibiclens For Decolonization -) 1 applic TP HS [facility] Last Admin: 12/06/18 22:09 Dose: 1 applic Chlorhexidine Gluconate (Peridex -) 15 ml MM BID [facility] Last Admin: 12/06/18 22:10 Dose: 15 ml Docusate Sodium (Colace -) 100 mg PO BID PRN PRN Reason: CONSTIPATION Furosemide (Lasix Injection -) 40 mg IVPUSH BID@0600,1400 [facility] Last Admin: 12/06/18 14:22 Dose: Not Given Gabapentin (Neurontin -) 100 mg NGT TID [facility] Last Admin: 12/07/18 05:50 Dose: 100 mg Heparin Sodium (Porcine) (Heparin -) 5,000 unit SQ TID [facility] Last Admin: 12/07/18 05:50 Dose: 5,000 unit Vancomycin HCl 1,250 mg/ (Dextrose) 250 mls @ 250 mls/2 hr IVPB Q24H [facility]; Protocol Last Admin: 12/06/18 14:21 Dose: 250 mls/2 hr Dexmedetomidine HCl 400 mcg/ (Sodium Chloride) 100 mls @ 16.78 mls/hr IVPB TITR [facility] Last Admin: 12/07/18 02:34 Dose: 1.5 mcg/kg/hr, 35.96 mls/hr Insulin Aspart (Novolog Vial Sliding Scale -) 1 vial SQ TID [facility]; Protocol Last Admin: 12/07/18 05:51 Dose: 2 units Insulin Detemir (Levemir Vial) 20 units SQ HS [facility] Last Admin: 12/06/18 22:40 Dose: 20 units Methadone HCl (Dolophine -) 40 mg NGT DAILY@0600 [facility] Last Admin: 12/07/18 05:50 Dose: Not Given Metoclopramide HCl (Reglan Injection -) 10 mg IVPUSH Q6H-IV [facility] Last Admin: 12/07/18 02:27 Dose: 10 mg Metoprolol Tartrate (Lopressor -) 25 mg PO BID [facility] Last Admin: 12/06/18 22:09 Dose: 25 mg Midazolam HCl (Versed -) 2 mg IVPUSH Q4H PRN PRN Reason: AGITATION Last Admin: 12/06/18 22:10 Dose: 2 mg Pantoprazole Sodium (Protonix Iv) 40 mg IVPUSH DAILY [facility] Last Admin: 12/06/18 09:14 Dose: 40 mg Potassium Chloride (Potassium Chloride Oral Liquid) 20 meq PO ONCE ONE Stop: 12/07/18 07:31 Tiotropium [place] (Spiriva Respimat) 2 puff IH DAILY [facility] Last Admin: 12/06/18 09:14 Dose: Not Given Valacyclovir HCl (Valtrex -) 500 mg NGT DAILY [facility] Last Admin: 12/06/18 09:14 Dose: 500 mg - Objective Vital Signs: Vital Signs Temperature 99.8 F H 12/07/18 06:00 Pulse Rate 64 12/07/18 06:00 Respiratory Rate 28 H 12/07/18 06:18 Blood Pressure 153/75 12/07/18 06:00 O2 Sat by Pulse Oximetry (%) 96 12/06/18 22:00 Cardiovascular: Yes: S1, S2 Respiratory: Yes: Mechanically Ventilated Gastrointestinal: Yes: Normal Bowel Sounds, Soft Labs: CBC, BMP 12/07/18 05:30 12/07/18 05:30 INR, PTT INR 1.19 (0.83-1.09) H 11/30/18 05:30 Fibrinogen > 500.0 mg/dL (238-498) H 11/25/18 20:00 Problem List - Problems (1) Respiratory failure Code(s): J96.90 - RESPIRATORY FAILURE, UNSP, UNSP W HYPOXIA OR HYPERCAPNIA (2) CKD (chronic kidney disease) Code(s): N18.9 - CHRONIC KIDNEY DISEASE, UNSPECIFIED (3) Diabetes Code(s): E11.9 - TYPE 2 DIABETES MELLITUS WITHOUT COMPLICATIONS Qualifiers: Diabetes mellitus type: type 2 (4) Hyponatremia Code(s): E87.1 - HYPO-OSMOLALITY AND HYPONATREMIA (5) Narcotic dependence Code(s): F11.20 - OPIOID DEPENDENCE, UNCOMPLICATED (6) Vertebral compression fracture Code(s): M48.50XA - COLLAPSED VERTEBRA, NEC, SITE UNSP, INIT (7) Edema Code(s): R60.9 - EDEMA, UNSPECIFIED (8) Anemia Code(s): D64.9 - ANEMIA, UNSPECIFIED (9) Elevated troponin Code(s): R74.8 - ABNORMAL LEVELS OF OTHER SERUM ENZYMES (10) Multiple myeloma Code(s): C90.00 - MULTIPLE MYELOMA NOT HAVING ACHIEVED REMISSION (11) Pulmonary congestion Code(s): R09.89 - OTH SYMPTOMS AND SIGNS INVOLVING THE CIRC AND RESP SYSTEMS Assessment/Plan - Problems (1) Vertebral compression fracture Assessment/Plan: radiation oncology and JOSE MANUEL noted to follow up as outpatient Code(s): M48.50XA - COLLAPSED VERTEBRA, NEC, SITE UNSP, INIT (2) Hyponatremia Assessment/Plan: resolve now sodium is 142 Code(s): E87.1 - HYPO-OSMOLALITY AND HYPONATREMIA (3) Diabetes Assessment/Plan: levemir [id number] 7.7 Code(s): E11.9 - TYPE 2 DIABETES MELLITUS WITHOUT COMPLICATIONS Qualifiers: Diabetes mellitus type: type 2 (4) Multiple myeloma Assessment/Plan: last treatment was 11/18 Code(s): C90.00 - MULTIPLE MYELOMA NOT HAVING ACHIEVED REMISSION (5) Hypocalcemia Assessment/Plan: now calcium is better Code(s): E83.51 - HYPOCALCEMIA (6) Elevated troponin Assessment/Plan: due to demand ischemia on aspirin and lipitor Code(s): R74.8 - ABNORMAL LEVELS OF OTHER SERUM ENZYMES (7) Respiratory failure Assessment/Plan: iv lasix bid monitor renal function and potassium vent support nebs pulm on case Code(s): J96.90 - RESPIRATORY FAILURE, UNSP, UNSP W HYPOXIA OR HYPERCAPNIA
[2018-12-07] MEDS ORDERED: POTASSIUM CHLORIDE ORAL LIQUID 20 MEQ/15 ML PO ONE (07:30)
[2018-12-07] MEDS ORDERED: PT OWN MED DRAWER 7, Y5N ONE ×3 (08:48→21:37)
[2018-12-07] MEDS: METOPROLOL TARTRATE 25 MG TABLET (FP) PO SCH ×2 (09:16→21:48)
[2018-12-07] MEDS: CALCIUM 500MG/VIT-D 200 UNITS COMBO TABLET (FP) NGT SCH (09:16)
[2018-12-07] MEDS: ASPIRIN 81 MG CHEWABLE TABLETS NGT SCH (09:16)
[2018-12-07] MEDS: PANTOPRAZOLE SODIUM 40 MG VIAL IVPUSH SCH (09:16)
[2018-12-07] MEDS: TIOTROPIUM BROMIDE 2.5 MCG (SPIRIVA) RESPIMAT INHALER IH SCH (09:17)
[2018-12-07] MEDS: valACYclovir HCL 500 MG TABLET (FP) NGT SCH (09:17)
[2018-12-07] MEDS: CHLORHEXIDINE GLUCONATE 0.12% 15ML CUP MM SCH ×2 (09:17→22:05)
[2018-12-07] MEDS: busPIRone HCL 5 MG TABLET NGT SCH ×2 (09:17→22:22)
[2018-12-07] MEDS: ALLOPURINOL 300 MG TABLET (FP) NGT SCH (09:18)
--- NOTE | 2018-12-07 09:42 | PN ---
Progress Note, Physician History of Present Illness: AWAKE ON VENTILATOR NO ACUTE DISTRESS LOW GRADE TEMP WBC WNL REPEAT BC NO GROWTH - Current Medication List Current Medications: Active Medications Acetaminophen (Tylenol -) 650 mg PO Q6H PRN PRN Reason: FEVER Last Admin: 12/05/18 14:00 Dose: 650 mg Albuterol Sulfate (Ventolin 0.083% Nebulizer Soln -) 1 amp NEB Q4H PRN PRN Reason: SHORT OF BREATH/WHEEZING Last Admin: 12/02/18 20:17 Dose: 1 amp Allopurinol (Zyloprim -) 300 mg NGT DAILY [facility] Last Admin: 12/07/18 09:18 Dose: 300 mg Aspirin (Asa -) 81 mg NGT DAILY [facility] Last Admin: 12/07/18 09:16 Dose: 81 mg Atorvastatin Calcium (Lipitor -) 80 mg NGT HS [facility] Last Admin: 12/06/18 22:09 Dose: 80 mg Buspirone HCl (Buspar -) 15 mg NGT BID [facility] Last Admin: 12/07/18 09:17 Dose: 15 mg Calcium Carbonate/Cholecalciferol (Os-Kyler 500+D -) 2 tab NGT DAILY [facility] Last Admin: 12/07/18 09:16 Dose: 2 tab Chlorhexidine Gluconate (Hibiclens For Decolonization -) 1 applic TP HS [facility] Last Admin: 12/06/18 22:09 Dose: 1 applic Chlorhexidine Gluconate (Peridex -) 15 ml MM BID [facility] Last Admin: 12/07/18 09:17 Dose: 15 ml Furosemide (Lasix Injection -) 40 mg IVPUSH BID@0600,1400 [facility] Last Admin: 12/06/18 14:22 Dose: Not Given Gabapentin (Neurontin -) 100 mg NGT TID [facility] Last Admin: 12/07/18 05:50 Dose: 100 mg Heparin Sodium (Porcine) (Heparin -) 5,000 unit SQ TID [facility] Last Admin: 12/07/18 05:50 Dose: 5,000 unit Vancomycin HCl 1,250 mg/ (Dextrose) 250 mls @ 250 mls/2 hr IVPB Q24H [facility]; Protocol Last Admin: 12/06/18 14:21 Dose: 250 mls/2 hr Dexmedetomidine HCl 400 mcg/ (Sodium Chloride) 100 mls @ 16.78 mls/hr IVPB TITR [facility] Last Infusion: 12/07/18 07:42 Dose: 0.7 mcg/kg/hr, 16.78 mls/hr Insulin Aspart (Novolog Vial Sliding Scale -) 1 vial SQ TID [facility]; Protocol Last Admin: 12/07/18 05:51 Dose: 2 units Insulin Detemir (Levemir Vial) 20 units SQ HS [facility] Last Admin: 12/06/18 22:40 Dose: 20 units Methadone HCl (Dolophine -) 40 mg NGT DAILY@0600 [facility] Last Admin: 12/07/18 09:19 Dose: 40 mg Metoclopramide HCl (Reglan Injection -) 10 mg IVPUSH Q6H-IV [facility] Last Admin: 12/07/18 09:16 Dose: 10 mg Metoprolol Tartrate (Lopressor -) 25 mg PO BID [facility] Last Admin: 12/07/18 09:16 Dose: 25 mg Midazolam HCl (Versed -) 2 mg IVPUSH Q4H PRN PRN Reason: AGITATION Last Admin: 12/06/18 22:10 Dose: 2 mg Pantoprazole Sodium (Protonix Iv) 40 mg IVPUSH DAILY [facility] Last Admin: 12/07/18 09:16 Dose: 40 mg Tiotropium [place] (Spiriva Respimat) 2 puff IH DAILY [facility] Last Admin: 12/07/18 09:17 Dose: Not Given Valacyclovir HCl (Valtrex -) 500 mg NGT DAILY [facility] Last Admin: 12/07/18 09:17 Dose: 500 mg - Objective Vital Signs: Vital Signs Temperature 99.8 F H 12/07/18 06:00 Pulse Rate 67 12/07/18 08:53 Respiratory Rate 30 H 12/07/18 08:53 Blood Pressure 154/77 12/07/18 08:00 O2 Sat by Pulse Oximetry (%) 98 12/07/18 08:53 Constitutional: Yes: No Distress Eyes: Yes: Conjunctiva Clear Cardiovascular: Yes: Regular Rate and Rhythm, S1, S2 Respiratory: Yes: Mechanically Ventilated Gastrointestinal: Yes: Normal Bowel Sounds, Soft. No: Tenderness Edema: No Labs: CBC, BMP 12/07/18 05:30 12/07/18 05:30 INR, PTT INR 1.19 (0.83-1.09) H 11/30/18 05:30 Fibrinogen > 500.0 mg/dL (238-498) H 11/25/18 20:00 Assessment/Plan RESPIRATORY FAILURE PULMONARY EDEMA R/O HCAP MYELOMA DM CKD + SPUTUM MRSA REPEAT C/S PRELIM NO GROWTH CONTINUE VENTILATORY SUPPORT
[2018-12-07] MEDS: VANCOMYCIN HCL 1,250 MG in DEXTROSE 5%-WATER - 250 ML IVPB SCH (11:08)
--- NOTE | 2018-12-07 11:56 | PN ---
Physical Exam: SUBJECTIVE: Patient seen and examined at bedside. He tolerated weaning trial with good RSBI and was successfully extubated today during rounds. Currently patent is awake, alert, nodding to answer simple questions. Saturating well on 40% venturi mask, however complains of difficulty breathing and placed on Bilevel ventilation. OBJECTIVE: Vital Signs Period Temp Pulse Resp BP Sys/Andre Pulse Ox Last 24 Hr 99 F-100.5 F 64-77 24-30 130-171/69-79 93-98 GENERAL: The patient is awake, alert, in no acute distress. HEENT: Normocephalic, atraumatic. PERRL, sclera anicteric, conjunctiva clear. Neck supple without lymphadenopathy. LUNGS: Bilevel ventilation. Breath sounds equal, clear to auscultation bilaterally. HEART: Regular rate and rhythm, S1, S2 without murmur, rub or gallop. ABDOMEN: Soft, nontender, nondistended, hypoactive bowel sounds X4 quadrants.. EXTREMITIES: 2+ radial, dorsalis pedis pulses bilaterally, well-perfused. No lower extremity edema. SKIN: Warm, dry. Improving chronic venous changes noted bilateral lower extremities. Laboratory Results - last 24 hr 12/06/18 12/06/18 12/07/18 14:50 22:38 05:30 WBC 8.5 RBC 3.20 L Hgb 9.2 L Hct 27.4 L MCV 85.8 MCH 28.9 MCHC 33.7 RDW 17.7 H Plt Count 204 MPV 8.4 Anticoagulation Therapy Puncture Site ABG pH ABG pCO2 at Pt Temp ABG pO2 at Pt Temp ABG HCO3 ABG O2 Sat (Measured) ABG O2 Content ABG Base Excess Benny Test O2 Delivery Device Oxygen Flow Rate Vent Mode Vent Rate Mechanical Rate PEEP Pressure Support Vent Sodium Potassium Chloride Carbon Dioxide Anion Gap BUN Creatinine Creat Clearance w eGFR POC Glucometer 239 267 Random Glucose Calcium Phosphorus Magnesium Total Bilirubin AST ALT Alkaline Phosphatase Total Protein Albumin 12/07/18 12/07/18 12/07/18 05:30 05:48 06:00 WBC RBC Hgb Hct MCV MCH MCHC RDW Plt Count MPV Anticoagulation Therapy No Result Required. Puncture Site Right radial ABG pH 7.44 ABG pCO2 at Pt Temp 40.3 ABG pO2 at Pt Temp 91.1 D ABG HCO3 27.3 H ABG O2 Sat (Measured) 95.8 ABG O2 Content 14.3 L ABG Base Excess 3.5 H Benny Test Positive O2 Delivery Device Vent Oxygen Flow Rate 40% Vent Mode No Result Required. Vent Rate 24 Mechanical Rate No Result Required. PEEP 5.0 Pressure Support Vent 450 Sodium 145 Potassium 3.4 L Chloride 109 H Carbon Dioxide 29 Anion Gap 7 L BUN 58 H Creatinine 1.5 H Creat Clearance w eGFR 46.97 POC Glucometer 175 Random Glucose 254 H Calcium 8.0 L Phosphorus 3.2 Magnesium 2.2 Total Bilirubin 0.4 AST 71 H ALT 75 H Alkaline Phosphatase 157 H Total Protein 5.5 L Albumin 2.0 L 12/07/18 10:47 WBC RBC Hgb Hct MCV MCH MCHC RDW Plt Count MPV Anticoagulation Therapy Puncture Site ABG pH ABG pCO2 at Pt Temp ABG pO2 at Pt Temp ABG HCO3 ABG O2 Sat (Measured) ABG O2 Content ABG Base Excess Benny Test O2 Delivery Device Oxygen Flow Rate Vent Mode Vent Rate Mechanical Rate PEEP Pressure Support Vent Sodium Potassium Chloride Carbon Dioxide Anion Gap BUN Creatinine Creat Clearance w eGFR POC Glucometer 263 Random Glucose Calcium Phosphorus Magnesium Total Bilirubin AST ALT Alkaline Phosphatase Total Protein Albumin Active Medications Generic Name Dose Route Start Last Admin Trade Name Freq PRN Reason Stop Dose Admin Acetaminophen 650 mg 12/05/18 13:14 12/05/18 14:00 Tylenol - PO 650 mg Q6H PRN Administration FEVER Albuterol Sulfate 1 amp 11/29/18 21:21 12/02/18 20:17 Ventolin 0.083% Nebulizer Soln - NEB 1 amp Q4H PRN Administration SHORT OF BREATH/WHEEZING Allopurinol 300 mg 12/03/18 10:57 12/07/18 09:18 Zyloprim - NGT 300 mg DAILY [facility]AKOV Administration Aspirin 81 mg 12/03/18 10:58 12/07/18 09:16 Asa - NGT 81 mg DAILY [facility]AKOV Administration Atorvastatin Calcium 80 mg 12/03/18 22:00 12/06/18 22:09 Lipitor - NGT 80 mg HS Y[facility]OV Administration Buspirone HCl 15 mg 12/03/18 10:58 12/07/18 09:17 Buspar - NGT 15 mg BID YAKOV Administration Calcium Carbonate/Cholecalciferol 2 tab 12/03/18 10:58 12/07/18 09:16 Os-Kyler 500+D - NGT 2 tab DAILY [facility]OV Administration Chlorhexidine Gluconate 1 applic 11/26/18 22:00 12/06/18 22:09 Hibiclens For Decolonization - TP 1 applic HS [facility]OV Administration Chlorhexidine Gluconate 15 ml 11/27/18 22:00 12/07/18 09:17 Peridex - MM 15 ml BID YAKOV Administration Furosemide 40 mg 11/29/18 14:45 12/06/18 14:22 Lasix Injection - IVPUSH Not Given BID@0600,1400 [facility] Gabapentin 100 mg 12/03/18 14:00 12/07/18 05:50 Neurontin - NGT 100 mg TID YAKOV Administration Heparin Sodium (Porcine) 5,000 unit 11/30/18 22:00 12/07/18 05:50 Heparin - SQ 5,000 unit TID [facility] Administration Vancomycin HCl 1,250 mg/ 250 mls @ 250 mls/2 hr 12/03/18 11:15 12/07/18 11:08 Dextrose IVPB 250 mls/2 hr Q24H Y[facility] Administration Protocol Dexmedetomidine HCl 400 mcg/ 100 mls @ 16.78 mls/hr 12/05/18 18:00 12/07/18 07:42 Sodium Chloride IVPB 0.7 mcg/kg/hr TITR [facility]AKOV 16.78 mls/hr Infusion 0.7 MCG/KG/HR Insulin Aspart 1 vial 12/02/18 07:30 12/07/18 05:51 Novolog Vial Sliding Scale - SQ 2 units TID [facility]OV Administration Protocol Insulin Detemir 20 units 11/30/18 21:42 12/06/18 22:40 Levemir Vial SQ 20 units [facility] Administration Methadone HCl 40 mg 12/04/18 06:00 12/07/18 09:19 Dolophine - NGT 40 mg DAILY@0600 [facility] Administration Metoclopramide HCl 10 mg 11/29/18 21:00 12/07/18 09:16 Reglan Injection - IVPUSH 10 mg Q6H-IV [facility] Administration Metoprolol Tartrate 25 mg 12/05/18 11:30 12/07/18 09:16 Lopressor - PO 25 mg BID Y[facility] Administration Midazolam HCl 2 mg 12/05/18 20:18 12/06/18 22:10 Versed - IVPUSH 2 mg Q4H PRN Administration AGITATION Pantoprazole Sodium 40 mg 12/02/18 11:45 12/07/18 09:16 Protonix Iv IVPUSH 40 mg DAILY YAKOV Administration Tiotropium [place] 2 puff 11/26/18 10:00 12/07/18 09:17 Spiriva Respimat IH Not Given DAILY Y[facility]OV Valacyclovir HCl 500 mg 12/03/18 10:58 12/07/18 09:17 Valtrex - NGT 500 mg DAILY YAKOV Administration ASSESSMENT/PLAN: Patient is a 63 year old male with history of hypertension, hyperlipidemia, insulin dependent diabetes mellitus, peripheral vascular disease, opoid dependence, multiple myeloma, admitted to ICU for acute hypoxic respiratory failure. Neurological -Patient is off sedation. Awake, alert. -Methadone 40mg PO daily -Monitor for signs of mental status change Pulmonary -Acute hypoxic, hypoxemic respiratory failure -Pneumonia, +MRSA nares colonization -Patient is extubated, saturating well on Bilevel ventilation. -Follow ABG -Follow daily chest radiograph -Vancomycin 1250mg IV daily -Patient completed 7 days course of Zosyn -Lasix 40mg IV daily. -DuoNebs Q6H, Spiriva 2 puffs IH daily -Maintain oxygen saturation greater than 90% Cardiovascular -Hypertension -NSTEMI -Troponin peaked at 21.6. Discussed with Cardiology, who recommends continuing Aspirin at this time. No indication for Heparin drip -Aspirin 81mg GT daily -Metoprolol 25mg GT daily -Cardiac ECHO shows EF 45-50%, mild global hypokinesis, grade I diastolic dysfunction. -Arterial doppler right upper extremity shows decreased monophasic flow within right radial and ulnar arteries. -Vascular surgery consult appreciated. No surgical intervention indicated at this time. Gastrointestinal -Constipation -History of Hepatitis C -HCV RNA PCR negative -No episodes of emesis overnight. -GI consult (Dr. Up) appreciated. -NPO today. Patient will require speech, swallow evaluation prior to reinstating diet. -Protonix 40mg IV daily -Metoclopramide 10mg IV Q6H -Monitor serial occult blood testing Endocrine -Insulin dependent diabetes mellitus -Insulin sliding scale TID -Fingerstick blood glucose monitoring TID -Gabapentin 100mg PO TID for peripheral neuropathy Hematologic -Multiple Myeloma -S/P 1 unit PRBC transfusion -Maintain Hb above 8.0 -Multiple myeloma treatment, per hematology -Hematology recommendations appreciated Renal -DARIO -improving Hypocalcemia -Corrected Ca 9.6 -Nephrology recommendations (Dr. Cates) appreciated. Infectious disease -Stool negative for C. difficile -Urine culture growing preliminary gram negative, non lactose fermenting rods. FEN -Fluids: No IV fluids -Electrolytes: Hypokalemia- repleted. Follow CMP; replete as necessary. -Nutrition: NPO Prophylaxis -Heparin 5000u subq TID Lines, Tubes, Drains -Massey catheter changed 12/02 -Rectal tube placed 12/05 Disposition -Continue care in ICU. Patient is Full Code Visit type - Emergency Visit Emergency Visit: Yes ED Registration Date: 11/20/18 Care time: The patient presented to the Emergency Department on the above date and was hospitalized for further evaluation of their emergent condition. - New Patient This patient is new to me today: No - Critical Care Critical Care patient: Yes Total Critical Care Time (in minutes): 37 Critical Care Statement: The care of this patient involved high complexity decision making to prevent further life threatening deterioration of the patient 's condition and/or to evaluate & treat vital organ system(s) failure or risk of failure. - Discharge Referral Referred to [facility] Med P.C.: No
--- NOTE | 2018-12-07 12:37 | PN ---
Teaching Attending Note Name of Resident: Tarun Guzmán ATTENDING PHYSICIAN STATEMENT I saw and evaluated the patient. I reviewed the resident's note and discussed the case with the resident. I agree with the resident's findings and plan as documented. SUBJECTIVE: Pt seen and examined in the ICU. Intubated, awake, following commands. Tolerated CPAP/PS trials with good RSIB and subsequently extubated during rounds. OBJECTIVE: Vital Signs Period Temp Pulse Resp BP Sys/Andre Pulse Ox Last 24 Hr 99 F-100.5 F 64-77 24-30 130-171/69-79 93-98 Intake & Output 12/04/18 12/05/18 12/06/18 12/07/18 23:59 23:59 23:59 23:59 Intake Total 2015 1848 2002 98 Output Total 3999 2600 1900 300 Balance -[id number] 103 688 Weight 98.475 kg 95.9 kg 93.894 kg 93.695 kg Gen: extubated Heart: RRR Lung: scattered rhonchi Abd: soft, nontender Ext: no edema CBC, BMP 12/07/18 05:30 12/07/18 05:30 Active Medications Acetaminophen (Tylenol -) 650 mg PO Q6H PRN PRN Reason: FEVER Last Admin: 12/05/18 14:00 Dose: 650 mg Albuterol Sulfate (Ventolin 0.083% Nebulizer Soln -) 1 amp NEB Q4H PRN PRN Reason: SHORT OF BREATH/WHEEZING Last Admin: 12/02/18 20:17 Dose: 1 amp Allopurinol (Zyloprim -) 300 mg NGT DAILY [facility] Last Admin: 12/07/18 09:18 Dose: 300 mg Aspirin (Asa -) 81 mg NGT DAILY [facility] Last Admin: 12/07/18 09:16 Dose: 81 mg Atorvastatin Calcium (Lipitor -) 80 mg NGT HS [facility] Last Admin: 12/06/18 22:09 Dose: 80 mg Buspirone HCl (Buspar -) 15 mg NGT BID [facility] Last Admin: 12/07/18 09:17 Dose: 15 mg Calcium Carbonate/Cholecalciferol (Os-Kyler 500+D -) 2 tab NGT DAILY [facility] Last Admin: 12/07/18 09:16 Dose: 2 tab Chlorhexidine Gluconate (Hibiclens For Decolonization -) 1 applic TP HS [facility] Last Admin: 12/06/18 22:09 Dose: 1 applic Chlorhexidine Gluconate (Peridex -) 15 ml MM BID [facility] Last Admin: 12/07/18 09:17 Dose: 15 ml Furosemide (Lasix Injection -) 40 mg IVPUSH BID@0600,1400 [facility] Last Admin: 12/06/18 14:22 Dose: Not Given Gabapentin (Neurontin -) 100 mg NGT TID [facility] Last Admin: 12/07/18 05:50 Dose: 100 mg Heparin Sodium (Porcine) (Heparin -) 5,000 unit SQ TID [facility] Last Admin: 12/07/18 05:50 Dose: 5,000 unit Vancomycin HCl 1,250 mg/ (Dextrose) 250 mls @ 250 mls/2 hr IVPB Q24H [facility]; Protocol Last Admin: 12/07/18 11:08 Dose: 250 mls/2 hr Dexmedetomidine HCl 400 mcg/ (Sodium Chloride) 100 mls @ 16.78 mls/hr IVPB TITR [facility] Last Infusion: 12/07/18 07:42 Dose: 0.7 mcg/kg/hr, 16.78 mls/hr Insulin Aspart (Novolog Vial Sliding Scale -) 1 vial SQ TID [facility]; Protocol Last Admin: 12/07/18 05:51 Dose: 2 units Insulin Detemir (Levemir Vial) [address] [facility] Last Admin: 12/06/18 22:40 Dose: 20 units Methadone HCl (Dolophine -) 40 mg NGT DAILY@0600 [facility] Last Admin: 12/07/18 09:19 Dose: 40 mg Metoclopramide HCl (Reglan Injection -) 10 mg IVPUSH Q6H-IV [facility] Last Admin: 12/07/18 09:16 Dose: 10 mg Metoprolol Tartrate (Lopressor -) 25 mg PO BID [facility] Last Admin: 12/07/18 09:16 Dose: 25 mg Midazolam HCl (Versed -) 2 mg IVPUSH Q4H PRN PRN Reason: AGITATION Last Admin: 12/06/18 22:10 Dose: 2 mg Pantoprazole Sodium (Protonix Iv) 40 mg IVPUSH DAILY [facility] Last Admin: 12/07/18 09:16 Dose: 40 mg Tiotropium [place] (Spiriva Respimat) 2 puff IH DAILY [facility] Last Admin: 12/07/18 09:17 Dose: Not Given Valacyclovir HCl (Valtrex -) 500 mg NGT DAILY [facility] Last Admin: 12/07/18 09:17 Dose: 500 mg ASSESSMENT AND PLAN: Acute Hypoxic and Hypercapneic Respiratory Failure improving Acute Pulmonary Edema Acute NSTEMI r/o Pneumonia UTI Acute on Chronic Renal Failure HTN DM COPD Methadone Maintenance - pt extubated - continue antibiotics per ID - f/u cultures - continue lasix - monitor urine output, creatinine - replete lytes - ASA - inhaled bronchodilators - DVT/GI prophylaxis - continue ICU monitoring critical care time spent in reviewing chart, evaluating patient and formulating plan 35 min
[2018-12-07] MEDS: FUROSEMIDE 40 MG/4 ML INJECTABLE VIAL IVPUSH SCH (13:05)
--- NOTE | 2018-12-07 13:35 | PN ---
Progress Note, Physician History of Present Illness: Pt seen and examined at bedside. He is now extubated. He is alert and is interactive. - Current Medication List Current Medications: Active Medications Acetaminophen (Tylenol -) 650 mg PO Q6H PRN PRN Reason: FEVER Last Admin: 12/05/18 14:00 Dose: 650 mg Albuterol Sulfate (Ventolin 0.083% Nebulizer Soln -) 1 amp NEB Q4H PRN PRN Reason: SHORT OF BREATH/WHEEZING Last Admin: 12/02/18 20:17 Dose: 1 amp Allopurinol (Zyloprim -) 300 mg NGT DAILY [facility] Last Admin: 12/07/18 09:18 Dose: 300 mg Aspirin (Asa -) 81 mg NGT DAILY [facility] Last Admin: 12/07/18 09:16 Dose: 81 mg Atorvastatin Calcium (Lipitor -) 80 mg NGT HS [facility] Last Admin: 12/06/18 22:09 Dose: 80 mg Buspirone HCl (Buspar -) 15 mg NGT BID [facility] Last Admin: 12/07/18 09:17 Dose: 15 mg Calcium Carbonate/Cholecalciferol (Os-[place]yler 500+D -) 2 tab NGT DAILY [facility] Last Admin: 12/07/18 09:16 Dose: 2 tab Chlorhexidine Gluconate (Hibiclens For Decolonization -) 1 applic TP HS [facility] Last Admin: 12/06/18 22:09 Dose: 1 applic Chlorhexidine Gluconate (Peridex -) 15 ml MM BID [facility] Last Admin: 12/07/18 09:17 Dose: 15 ml Furosemide (Lasix Injection -) 40 mg IVPUSH DAILY [facility] Last Admin: 12/07/18 13:05 Dose: 40 mg Gabapentin (Neurontin -) 100 mg NGT TID [facility] Last Admin: 12/07/18 13:07 Dose: 100 mg Heparin Sodium (Porcine) (Heparin -) 5,000 unit SQ TID [facility] Last Admin: 12/07/18 13:07 Dose: 5,000 unit Vancomycin HCl 1,250 mg/ (Dextrose) 250 mls @ 250 mls/2 hr IVPB Q24H [facility]; Protocol Last Admin: 12/07/18 11:08 Dose: 250 mls/2 hr Dexmedetomidine HCl 400 mcg/ (Sodium Chloride) 100 mls @ 16.78 mls/hr IVPB TITR [facility] Last Infusion: 12/07/18 07:42 Dose: 0.7 mcg/kg/hr, 16.78 mls/hr Insulin Aspart (Novolog Vial Sliding Scale -) 1 vial SQ TID [facility]; Protocol Last Admin: 12/07/18 13:08 Dose: 4 units Insulin Detemir (Levemir Vial) 20 units SQ HS [facility] Last Admin: 12/06/18 22:40 Dose: 20 units Methadone HCl (Dolophine -) 40 mg NGT DAILY@0600 [facility] Last Admin: 12/07/18 09:19 Dose: 40 mg Metoclopramide HCl (Reglan Injection -) 10 mg IVPUSH Q6H-IV [facility] Last Admin: 12/07/18 09:16 Dose: 10 mg Metoprolol Tartrate (Lopressor -) 25 mg PO BID [facility] Last Admin: 12/07/18 09:16 Dose: 25 mg Midazolam HCl (Versed -) 2 mg IVPUSH Q4H PRN PRN Reason: AGITATION Last Admin: 12/06/18 22:10 Dose: 2 mg Pantoprazole Sodium (Protonix Iv) 40 mg IVPUSH DAILY [facility] Last Admin: 12/07/18 09:16 Dose: 40 mg Tiotropium [place] (Spiriva Respimat) 2 puff IH DAILY [facility] Last Admin: 12/07/18 09:17 Dose: Not Given Valacyclovir HCl (Valtrex -) 500 mg NGT DAILY [facility] Last Admin: 12/07/18 09:17 Dose: 500 mg - Objective Vital Signs: Vital Signs Temperature 99 F 12/07/18 10:00 Pulse Rate 77 12/07/18 11:19 Respiratory Rate 28 H 12/07/18 10:00 Blood Pressure 130/69 12/07/18 10:00 O2 Sat by Pulse Oximetry (%) 93 L 12/07/18 11:19 Constitutional: Yes: Calm Eyes: Yes: Conjunctiva Clear HENT: Yes: Atraumatic Neck: Yes: Supple Cardiovascular: Yes: S1, S2 Respiratory: Yes: On Venti-Mask Gastrointestinal: Yes: Soft, Abdomen, Obese Genitourinary: Yes: Massey Present Musculoskeletal: Yes: Muscle Weakness Edema: No Neurological: Yes: Oriented Psychiatric: Yes: Oriented Labs: CBC, BMP 12/07/18 05:30 12/07/18 05:30 INR, PTT INR 1.19 (0.83-1.09) H 11/30/18 05:30 Fibrinogen > 500.0 mg/dL (238-498) H 11/25/18 20:00 Problem List - Problems (1) CKD (chronic kidney disease) Code(s): N18.9 - CHRONIC KIDNEY DISEASE, UNSPECIFIED (2) Constipation Code(s): K59.00 - CONSTIPATION, UNSPECIFIED Qualifiers: Constipation type: unspecified constipation type Qualified Code(s): K59.00 - Constipation, unspecified (3) Hyponatremia Code(s): E87.1 - HYPO-OSMOLALITY AND HYPONATREMIA Assessment/Plan Current Medications Generic Name Dose Route Start Last Admin Trade Name Freq PRN Reason Stop Dose Admin Acetaminophen 650 mg 12/05/18 13:14 12/05/18 14:00 Tylenol - PO 650 mg Q6H PRN Administration FEVER Albuterol Sulfate 1 amp 11/29/18 21:21 12/02/18 20:17 Ventolin 0.083% Nebulizer Soln - NEB 1 amp Q4H PRN Administration SHORT OF BREATH/WHEEZING Allopurinol 300 mg 12/03/18 10:57 12/07/18 09:18 Zyloprim - NGT 300 mg DAILY [facility]AK[facility] Administration Aspirin 81 mg 12/03/18 10:58 12/07/18 09:16 Asa - NGT 81 mg DAILY [facility] Administration Atorvastatin Calcium 80 mg 12/03/18 22:00 12/06/18 22:09 Lipitor - NGT 80 mg HS [facility] Administration Buspirone HCl 15 mg 12/03/18 10:58 12/07/18 09:17 Buspar - NGT 15 mg BID [facility] Administration Calcium Carbonate/Cholecalciferol 2 tab 12/03/18 10:58 12/07/18 09:16 Os-Kyler 500+D - NGT 2 tab DAILY [facility] Administration Chlorhexidine Gluconate 1 applic 11/26/18 22:00 12/06/18 22:09 Hibiclens For Decolonization - TP 1 applic HS [facility] Administration Chlorhexidine Gluconate 15 ml 11/27/18 22:00 12/07/18 09:17 Peridex - MM 15 ml BID [facility] Administration Furosemide 40 mg 12/07/18 12:45 12/07/18 13:05 Lasix Injection - IVPUSH 40 mg DAILY [facility] Administration Gabapentin 100 mg 12/03/18 14:00 12/07/18 13:07 Neurontin - NGT 100 mg TID [facility] Administration Heparin Sodium (Porcine) 5,000 unit 11/30/18 22:00 12/07/18 13:07 Heparin - SQ 5,000 unit TID [facility] Administration Vancomycin HCl 1,250 mg/ 250 mls @ 250 mls/2 hr 12/03/18 11:15 12/07/18 11:08 Dextrose IVPB 250 mls/2 hr Q24H [facility] Administration Protocol Dexmedetomidine HCl 400 mcg/ 100 mls @ 16.78 mls/hr 12/05/18 18:00 12/07/18 07:42 Sodium Chloride IVPB 0.7 mcg/kg/hr TITR [facility] 16.78 mls/hr Infusion 0.7 MCG/KG/HR Insulin Aspart 1 vial 12/02/18 07:30 12/07/18 13:08 Novolog Vial Sliding Scale - SQ 4 units TID [facility] Administration Protocol Insulin Detemir 20 units 11/30/18 21:42 12/06/18 22:40 Levemir Vial SQ 20 units HS [facility] Administration Methadone HCl 40 mg 12/04/18 06:00 12/07/18 09:19 Dolophine - NGT 40 mg DAILY@0600 [facility] Administration Metoclopramide HCl 10 mg 11/29/18 21:00 12/07/18 09:16 Reglan Injection - IVPUSH 10 mg Q6H-IV [facility] Administration Metoprolol Tartrate 25 mg 12/05/18 11:30 12/07/18 09:16 Lopressor - PO 25 mg BID [facility] Administration Midazolam HCl 2 mg 12/05/18 20:18 12/06/18 22:10 Versed - IVPUSH 2 mg Q4H PRN Administration AGITATION Pantoprazole Sodium 40 mg 12/02/18 11:45 12/07/18 09:16 Protonix Iv IVPUSH 40 mg DAILY [facility] Administration Tiotropium [place] 2 puff 11/26/18 10:00 12/07/18 09:17 Spiriva Respimat IH Not Given DAILY [facility] Valacyclovir HCl 500 mg 12/03/18 10:58 12/07/18 09:17 Valtrex - NGT 500 mg DAILY [facility] Administration Impression 1. hyponatremia 2. CKD 3. nausea and vomiting 4. htn 5. DM 6. 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 multiple myeloma 9. anemia 10. proteinuria 11. hyperkalemia 12. resp failure 13. volume overload Plan - pt extubated, monitor pulse ox - cont with lasix, agree to daily dosing - abx per ID - volume status is improving - renal function is stable Dr Cates
[2018-12-07] MEDS ORDERED: NIFEdipine E.R. 30 MG TABLET (FP) PO SCH (16:00)
--- NOTE | 2018-12-07 16:53 | PN ---
Physical Exam: SUBJECTIVE: Patient seen and examined; extubated OBJECTIVE: Vital Signs Period Temp Pulse Resp BP Sys/Andre Pulse Ox Last 24 Hr 99 F-99.8 F 64-95 24-30 130-175/69-91 93-98 GENERAL: The patient is awake LUNGS: Breath sounds equal, clear to auscultation bilaterally, no wheezes, no crackles, no accessory muscle use. HEART: Regular rate and rhythm, S1, S2 without murmur, rub or gallop. ABDOMEN: Soft, nontender, nondistended, normoactive bowel sounds, no guarding, no rebound, no hepatosplenomegaly, no masses. EXTREMITIES: 2+ pulses, warm, well-perfused, no edema. SKIN: Warm, dry, normal turgor, no rashes or lesions noted Laboratory Results - last 24 hr 12/06/18 12/07/18 12/07/18 22:38 05:30 05:30 WBC 8.5 RBC 3.20 L Hgb 9.2 L Hct 27.4 L MCV 85.8 MCH 28.9 MCHC 33.7 RDW 17.7 H Plt Count 204 MPV 8.4 Anticoagulation Therapy Puncture Site ABG pH ABG pCO2 at Pt Temp ABG pO2 at Pt Temp ABG HCO3 ABG O2 Sat (Measured) ABG O2 Content ABG Base Excess Benny Test O2 Delivery Device Oxygen Flow Rate Vent Mode Vent Rate Mechanical Rate PEEP Pressure Support Vent Sodium 145 Potassium 3.4 L Chloride 109 H Carbon Dioxide 29 Anion Gap 7 L BUN 58 H Creatinine 1.5 H Creat Clearance w eGFR 46.97 POC Glucometer 267 Random Glucose 254 H Calcium 8.0 L Phosphorus 3.2 Magnesium 2.2 Total Bilirubin 0.4 AST 71 H ALT 75 H Alkaline Phosphatase 157 H Total Protein 5.5 L Albumin 2.0 L 12/07/18 12/07/18 12/07/18 05:48 06:00 10:47 WBC RBC Hgb Hct MCV MCH MCHC RDW Plt Count MPV Anticoagulation Therapy No Result Required. Puncture Site Right radial ABG pH 7.44 ABG pCO2 at Pt Temp 40.3 ABG pO2 at Pt Temp 91.1 D ABG HCO3 27.3 H ABG O2 Sat (Measured) 95.8 ABG O2 Content 14.3 L ABG Base Excess 3.5 H Benny Test Positive O2 Delivery Device Vent Oxygen Flow Rate 40% Vent Mode No Result Required. Vent Rate 24 Mechanical Rate No Result Required. PEEP 5.0 Pressure Support Vent 450 Sodium Potassium Chloride Carbon Dioxide Anion Gap BUN Creatinine Creat Clearance w eGFR POC Glucometer 175 263 Random Glucose Calcium Phosphorus Magnesium Total Bilirubin AST ALT Alkaline Phosphatase Total Protein Albumin 12/07/18 16:45 WBC RBC Hgb Hct MCV MCH MCHC RDW Plt Count MPV Anticoagulation Therapy Puncture Site ABG pH ABG pCO2 at Pt Temp ABG pO2 at Pt Temp ABG HCO3 ABG O2 Sat (Measured) ABG O2 Content ABG Base Excess Benny Test O2 Delivery Device Oxygen Flow Rate Vent Mode Vent Rate Mechanical Rate PEEP Pressure Support Vent Sodium Potassium Chloride Carbon Dioxide Anion Gap BUN Creatinine Creat Clearance w eGFR POC Glucometer 198 Random Glucose Calcium Phosphorus Magnesium Total Bilirubin AST ALT Alkaline Phosphatase Total Protein Albumin Active Medications Generic Name Dose Route Start Last Admin Trade Name Freq PRN Reason Stop Dose Admin Acetaminophen 650 mg 12/05/18 13:14 12/05/18 14:00 Tylenol - PO 650 mg Q6H PRN Administration FEVER Albuterol Sulfate 1 amp 11/29/18 21:21 12/02/18 20:17 Ventolin 0.083% Nebulizer Soln - NEB 1 amp Q4H PRN Administration SHORT OF BREATH/WHEEZING Allopurinol 300 mg 12/03/18 10:57 12/07/18 09:18 Zyloprim - NGT 300 mg DAILY YAKOV Administration Aspirin 81 mg 12/03/18 10:58 12/07/18 09:16 Asa - NGT 81 mg DAILY YAKOV Administration Atorvastatin Calcium 80 mg 12/03/18 22:00 12/06/18 22:09 Lipitor - NGT 80 mg HS YAKOV Administration Buspirone HCl 15 mg 12/03/18 10:58 12/07/18 09:17 Buspar - NGT 15 mg BID YAKOV Administration Calcium Carbonate/Cholecalciferol 2 tab 12/03/18 10:58 12/07/18 09:16 Os-Kyler 500+D - NGT 2 tab DAILY YAKOV Administration Chlorhexidine Gluconate 1 applic 11/26/18 22:00 12/06/18 22:09 Hibiclens For Decolonization - TP 1 applic HS YAKOV Administration Chlorhexidine Gluconate 15 ml 11/27/18 22:00 12/07/18 09:17 Peridex - MM 15 ml BID YAKOV Administration Furosemide 40 mg 03/06/19 12:45 12/07/18 13:05 Lasix Injection - IVPUSH 40 mg DAILY YAKOV Administration Gabapentin 100 mg 12/03/18 14:00 12/07/18 13:07 Neurontin - NGT 100 mg TID YAKOV Administration Heparin Sodium (Porcine) 5,000 unit 11/30/18 22:00 12/07/18 13:07 Heparin - SQ 5,000 unit TID YAKOV Administration Vancomycin HCl 1,250 mg/ 250 mls @ 250 mls/2 hr 12/03/18 11:15 12/07/18 11:08 Dextrose IVPB 250 mls/2 hr Q24H YAKOV Administration Protocol Dexmedetomidine HCl 400 mcg/ 100 mls @ 16.78 mls/hr 12/05/18 18:00 12/07/18 09:00 Sodium Chloride IVPB 0 mcg/kg/hr TITR YAKOV 0 mls/hr Infusion 0.7 MCG/KG/HR Insulin Aspart 1 vial 12/02/18 07:30 12/07/18 13:08 Novolog Vial Sliding Scale - SQ 4 units TID YAKOV Administration Protocol Insulin Detemir 20 units 11/30/18 21:42 12/06/18 22:40 Levemir Vial SQ 20 units HS YAKOV Administration Methadone HCl 40 mg 12/04/18 06:00 12/07/18 09:19 Dolophine - NGT 40 mg DAILY@0600 YAKOV Administration Metoclopramide HCl 10 mg 11/29/18 21:00 12/07/18 09:16 Reglan Injection - IVPUSH 10 mg Q6H-IV YAKOV Administration Metoprolol Tartrate 25 mg 12/05/18 11:30 12/07/18 09:16 Lopressor - PO 25 mg BID YAKOV Administration Midazolam HCl 2 mg 12/05/18 20:18 12/06/18 22:10 Versed - IVPUSH 2 mg Q4H PRN Administration AGITATION Nifedipine 30 mg 12/07/18 16:00 Procardia Xl - PO DAILY YAKOV Pantoprazole Sodium 40 mg 12/02/18 11:45 12/07/18 09:16 Protonix Iv IVPUSH 40 mg DAILY YAKOV Administration Tiotropium [place] 2 puff 11/26/18 10:00 12/07/18 09:17 Spiriva Respimat IH Not Given DAILY [facility] Valacyclovir HCl 500 mg 12/03/18 10:58 12/07/18 09:17 Valtrex - NGT 500 mg DAILY YAKOV Administration ASSESSMENT/PLAN: 63 yo M, with PMH of HTN, HLD, IDDM, Hep C (s/p Harvoni), PVD, past opioid use ( on methadone), and multiple myeloma , who was admitted for nausea, vomiting, abdominal distension and discomfort, and constipation worsened over the weekend. He received radiation to L spine and left acetabulum. MM with osteolytic lesions NSTEMI Acute hypercapniec/hypoxic respiratory failure sec to pulmonary edema ; PNA? anemia CKD hyponatremia hypertension DM -extubated -monitor h/h -MRI noted neurosurgery eval; vertebral MM; nothing to do at this time; no significant neurological element compression -velcade/cytoxan/dexamethasone and started zometa monthly; no on hold -seen by rad/onc; can f/u in office -PULM/GI/CARDS/ID following Myeloma--on velcade/cytoxan/dex --last dose 11/18 On zometa--11/18 treatment held last week light chains decreasing slowly s/p rt to lspine and left acetabular fx will resume based on clinical course Visit type - Emergency Visit Emergency Visit: Yes ED Registration Date: 11/20/18 Care time: The patient presented to the Emergency Department on the above date and was hospitalized for further evaluation of their emergent condition. - New Patient This patient is new to me today: No - Critical Care Critical Care patient: No
[2018-12-07] MEDS ORDERED: METOPROLOL TARTRATE 5 MG/5 ML VIAL IVPUSH PRN ×2 (17:19→17:24)
[2018-12-07] MEDS ORDERED: METOPROLOL TARTRATE 5 MG/5 ML VIAL ONE (17:21)
[2018-12-07] MEDS: ACETAMINOPHEN 325 MG TABLET (FP) PO PRN (17:32)
--- NOTE | 2018-12-07 18:41 | PN ---
Teaching Attending Note Name of Resident: Kenisha Mayer ATTENDING PHYSICIAN STATEMENT I saw and evaluated the patient. I reviewed the resident's note and discussed the case with the resident. I agree with the resident's findings and plan as documented. SUBJECTIVE: Patient seen and examined Extubated On BIPAP Last Vital Signs Temp Pulse Resp BP Pulse Ox 99.6 F 93 H 18 159/88 97 12/07/18 18:00 12/07/18 18:00 12/07/18 18:00 12/07/18 18:00 12/07/18 16:05 HEENT: [place], EOM Intact Cor: RSR, No murmurs, No gallops Lungs: diminished breath sounds bilaterally Abd: Soft, Normal bowel sounds, No organomegaly Ext:No significant edema Skin: No rashes, Integument intact CBC, BMP 12/07/18 05:30 12/07/18 05:30 Current Medications Generic Name Dose Route Start Last Admin Trade Name Freq PRN Reason Stop Dose Admin Acetaminophen 650 mg 12/05/18 13:14 12/07/18 17:32 Tylenol - PO 650 mg Q6H PRN Administration FEVER Albuterol Sulfate 1 amp 11/29/18 21:21 12/02/18 20:17 Ventolin 0.083% Nebulizer Soln - NEB 1 amp Q4H PRN Administration SHORT OF BREATH/WHEEZING Allopurinol 300 mg 12/03/18 10:57 12/07/18 09:18 Zyloprim - NGT 300 mg DAILY YAKOV Administration Aspirin 81 mg 12/03/18 10:58 12/07/18 09:16 Asa - NGT 81 mg DAILY YAKOV Administration Atorvastatin Calcium 80 mg 12/03/18 22:00 12/06/18 22:09 Lipitor - NGT 80 mg HS YAKOV Administration Buspirone HCl 15 mg 12/03/18 10:58 12/07/18 09:17 Buspar - NGT 15 mg BID YAKOV Administration Calcium Carbonate/Cholecalciferol 2 tab 12/03/18 10:58 12/07/18 09:16 Os-Kyler 500+D - NGT 2 tab DAILY YAKOV Administration Chlorhexidine Gluconate 1 applic 11/26/18 22:00 12/06/18 22:09 Hibiclens For Decolonization - TP 1 applic HS YAKOV Administration Chlorhexidine Gluconate 15 ml 11/27/18 22:00 12/07/18 09:17 Peridex - MM 15 ml BID YAKOV Administration Furosemide 40 mg 12/07/18 12:45 12/07/18 13:05 Lasix Injection - IVPUSH 40 mg DAILY YAKOV Administration Gabapentin 100 mg 12/03/18 14:00 12/07/18 13:07 Neurontin - NGT 100 mg TID YAKOV Administration Heparin Sodium (Porcine) 5,000 unit 11/30/18 22:00 12/07/18 13:07 Heparin - SQ 5,000 unit TID YAKOV Administration Vancomycin HCl 1,250 mg/ 250 mls @ 250 mls/2 hr 12/03/18 11:15 12/07/18 11:08 Dextrose IVPB 250 mls/2 hr Q24H YAKOV Administration Protocol Dexmedetomidine HCl 400 mcg/ 100 mls @ 16.78 mls/hr 12/05/18 18:00 12/07/18 18:09 Sodium Chloride IVPB Not Given TITR YAKOV 0.7 MCG/KG/HR Insulin Aspart 1 vial 12/02/18 07:30 12/07/18 13:08 Novolog Vial Sliding Scale - SQ 4 units TID YAKOV Administration Protocol Insulin Detemir 20 units 11/30/18 21:42 12/06/18 22:40 Levemir Vial SQ 20 units HS YAKOV Administration Methadone HCl 40 mg 12/04/18 06:00 12/07/18 09:19 Dolophine - NGT 40 mg DAILY@0600 YAKOV Administration Metoclopramide HCl 10 mg 11/29/18 21:00 12/07/18 17:13 Reglan Injection - IVPUSH 10 mg Q6H-IV YAKOV Administration Metoprolol Tartrate 25 mg 12/05/18 11:30 12/07/18 09:16 Lopressor - PO 25 mg BID YAKOV Administration Metoprolol Tartrate 2.5 mg 12/07/18 18:30 Lopressor Injection - IVPUSH Q4H PRN HYPERTENSION Midazolam HCl 2 mg 12/05/18 20:18 12/06/18 22:10 Versed - IVPUSH 2 mg Q4H PRN Administration AGITATION Pantoprazole Sodium 40 mg 12/02/18 11:45 12/07/18 09:16 Protonix Iv IVPUSH 40 mg DAILY YAKOV Administration Tiotropium [place] 2 puff 11/26/18 10:00 12/07/18 09:17 Spiriva Respimat IH Not Given DAILY YAKOV Valacyclovir HCl 500 mg 12/03/18 10:58 12/07/18 09:17 Valtrex - NGT 500 mg DAILY YAKOV Administration MM on velcade -dex-cytoxan- last dose 11/18; received zometa -11/18 S/P RT to pelvis and spine NSTEMI Acute hypercapniec/hypoxic respiratory failure -being diuressed and extubated on BIPAP anemia CKD hypertension DM Plan: Current therapy/management per ICU team. OBJECTIVE: ASSESSMENT AND PLAN:
[2018-12-07] MEDS: CEFTAZIDIME PENTAHYDRATE 1 GM in DEXTROSE 5%-WATER - 50 ML IVPB SCH (19:04)
[2018-12-07] MEDS: ATORVASTATIN CA 80 MG TABLET (FP) NGT SCH (21:48)
[2018-12-07] MEDS: INSULIN (LEVEMIR) 100 UNITS/ML UNITS SQ SCH (21:50)
[2018-12-07] MEDS: CHLORHEXIDINE GLUCONATE 4% CLEANSER FOR DECOLONIZATION TP SCH (21:55)
[2018-12-08] MEDS ORDERED: PT OWN MED DRAWER 7, Y5N ONE ×3 (03:05→17:37)
[2018-12-08] MEDS: METOCLOPRAMIDE HCL INJECTION 10 MG/2 ML VIAL IVPUSH SCH ×4 (03:08→21:10)
[2018-12-08] MEDS: CEFTAZIDIME PENTAHYDRATE 1 GM in DEXTROSE 5%-WATER - 50 ML IVPB SCH ×3 (03:08→17:40)
[2018-12-08 06:09] LABS: ARTERIAL BLD GAS O2 SATURATION 95.9 % (90-98.9); ARTERIAL BLOOD GAS BASE EXCESS 2.5 meq/l (-2-2); ARTERIAL BLOOD GAS PO2 86.4 mmHg (80-100)
[2018-12-08 06:10] LABS: ALLENS TEST POSITIVE
[2018-12-08] MEDS: METHADONE HCL 40 MG DISPERSABLE TABLET NGT SCH (06:29)
[2018-12-08] MEDS: HEPARIN NA (PORCINE) 5,000 UNITS/ML 1ML VIAL SQ SCH ×3 (06:29→21:10)
[2018-12-08] MEDS: GABAPENTIN 100 MG CAPSULE (FP) NGT SCH ×3 (06:29→21:11)
[2018-12-08 06:34] LABS: HEMOGLOBIN 10.7 GM/dL (11.7-16.9); MCH 28.7 pg (25.7-33.7); MCHC 33.3 g/dl (32.0-35.9); MEAN CELL VOLUME 86.1 fl (80-96); MEAN PLT VOLUME 7.8 fl (7.5-11.1); PLATELET COUNT 239 K/MM3 (134-434); RBC 3.71 M/mm3 (4.00-5.60); RDW 17.5 % (11.9-15.9); WHITE BLOOD COUNT 8.6 K/mm3 (4.0-10.0)
[2018-12-08 06:59] LABS: ALBUMIN 2.3 g/dl (3.4-5.0); ALK PHOS 227 U/L (45-117); ANION GAP 6 MMOL/L (8-16); BILIRUBIN,TOTAL 0.5 mg/dL (0.2-1); BLOOD UREA NITROGEN 52 mg/dL (7-18); CHLORIDE 114 mmol/L (98-107); CO2 32 mmol/L (21-32); CREATININE 1.6 mg/dL (0.55-1.3); GLUCOSE,RANDOM 147 mg/dL (74-106); MAGNESIUM 2.2 mg/dL (1.8-2.4); POTASSIUM 3.5 mmol/L (3.5-5.1); SGOT/AST 160 U/L (15-37); SGPT/ALT 190 U/L (13-61); SODIUM 151 mmol/L (136-145); TOT PROT 6.4 g/dl (6.4-8.2)
[2018-12-08] MEDS: INSULIN SLIDING SCALE (NOVOLOG) 1 VIAL SQ SCH ×3 (07:00→21:11)
--- NOTE | 2018-12-08 08:54 | PN ---
Physical Exam: SUBJECTIVE: Patient seen and examined at bedside. He is saturating well on Bilevel ventilation. Patient communicates by nodding head to answer questions. He denies acute complaints this morning. Patient weaned to venturi -mask 40% saturating well. OBJECTIVE: Vital Signs Period Temp Pulse Resp BP Sys/Andre Pulse Ox Last 24 Hr 99 F-99.7 F 73-105 12-30 130-192/69-98 93-100 GENERAL: The patient is awake, alert, in no acute distress. HEENT: Normocephalic, atraumatic. PERRL, sclera anicteric, conjunctiva clear. Neck supple without lymphadenopathy. LUNGS: Bilevel ventilation. Breath sounds equal, clear to auscultation bilaterally. HEART: Regular rate and rhythm, S1, S2 without murmur, rub or gallop. ABDOMEN: Soft, nontender, nondistended. Normoactive bowel sounds X4 quadrants. No hepatomegaly palpated or percussed. EXTREMITIES: 2+ radial, dorsalis pedis pulses bilaterally, well-perfused. No lower extremity edema. SKIN: Warm, dry. Improving chronic venous changes noted bilateral lower extremities. Laboratory Results - last 24 hr 12/07/18 12/07/18 12/07/18 10:47 16:45 22:03 WBC RBC Hgb Hct MCV MCH MCHC RDW Plt Count MPV Anticoagulation Therapy Puncture Site ABG pH ABG pCO2 at Pt Temp ABG pO2 at Pt Temp ABG HCO3 ABG O2 Sat (Measured) ABG O2 Content ABG Base Excess Benny Test O2 Delivery Device Oxygen Flow Rate Vent Mode Vent Rate Mechanical Rate Pressure Support Vent Sodium Potassium Chloride Carbon Dioxide Anion Gap BUN Creatinine Creat Clearance w eGFR POC Glucometer 263 198 171 Random Glucose Calcium Phosphorus Magnesium Total Bilirubin AST ALT Alkaline Phosphatase Total Protein Albumin 12/08/18 12/08/18 12/08/18 05:30 05:30 05:40 WBC 8.6 RBC 3.71 L Hgb 10.7 L Hct 32.0 L D MCV 86.1 MCH 28.7 MCHC 33.3 RDW 17.5 H Plt Count 239 MPV 7.8 Anticoagulation Therapy No Result Required. Puncture Site Right radial ABG pH 7.40 ABG pCO2 at Pt Temp 45.0 ABG pO2 at Pt Temp 86.4 ABG HCO3 27.2 H ABG O2 Sat (Measured) 95.9 ABG O2 Content 16.8 ABG Base Excess 2.5 H Benny Test Positive O2 Delivery Device No Result Required. Oxygen Flow Rate 40% Vent Mode S/t Vent Rate 20 Mechanical Rate No Result Required. Pressure Support Vent 14/6 Sodium 151 H Potassium 3.5 Chloride 114 H Carbon Dioxide 32 Anion Gap 6 L BUN 52 H Creatinine 1.6 H Creat Clearance w eGFR 43.60 POC Glucometer Random Glucose 147 H Calcium 8.0 L Phosphorus 3.0 Magnesium 2.2 Total Bilirubin 0.5 AST 160 H ALT 190 H Alkaline Phosphatase 227 H Total Protein 6.4 Albumin 2.3 L Active Medications Generic Name Dose Route Start Last Admin Trade Name Freq PRN Reason Stop Dose Admin Acetaminophen 650 mg 12/05/18 13:14 12/07/18 17:32 Tylenol - PO 650 mg Q6H PRN Administration FEVER Albuterol Sulfate 1 amp 11/29/18 21:21 12/02/18 20:17 Ventolin 0.083% Nebulizer Soln - NEB 1 amp Q4H PRN Administration SHORT OF BREATH/WHEEZING Allopurinol 300 mg 12/03/18 10:57 12/07/18 09:18 Zyloprim - NGT 300 mg DAILY YAKOV Administration Aspirin 81 mg 12/03/18 10:58 12/07/18 09:16 Asa - NGT 81 mg DAILY YAKOV Administration Atorvastatin Calcium 80 mg 12/03/18 22:00 12/07/18 21:48 Lipitor - NGT 80 mg HS YAKOV Administration Buspirone HCl 15 mg 12/03/18 10:58 12/07/18 22:22 Buspar - NGT 15 mg BID YAKOV Administration Calcium Carbonate/Cholecalciferol 2 tab 12/03/18 10:58 12/07/18 09:16 Os-Kyler 500+D - NGT 2 tab DAILY YAKOV Administration Chlorhexidine Gluconate 1 applic 11/26/18 22:00 12/07/18 21:55 Hibiclens For Decolonization - TP 1 applic HS YAKOV Administration Chlorhexidine Gluconate 15 ml 11/27/18 22:00 12/07/18 22:05 Peridex - MM Not Given BID YAKOV Furosemide 40 mg 12/07/18 12:45 12/07/18 13:05 Lasix Injection - IVPUSH 40 mg DAILY YAKOV Administration Gabapentin 100 mg 12/03/18 14:00 12/08/18 06:29 Neurontin - NGT 100 mg TID YAKOV Administration Heparin Sodium (Porcine) 5,000 unit 11/30/18 22:00 12/08/18 06:29 Heparin - SQ 5,000 unit TID YAKOV Administration Vancomycin HCl 1,250 mg/ 250 mls @ 250 mls/2 hr 12/03/18 11:15 12/07/18 11:08 Dextrose IVPB 250 mls/2 hr Q24H YAKOV Administration Protocol Dexmedetomidine HCl 400 mcg/ 100 mls @ 16.78 mls/hr 12/05/18 18:00 12/07/18 18:09 Sodium Chloride IVPB Not Given TITR YAKOV 0.7 MCG/KG/HR Ceftazidime 1 gm/ Dextrose 50 mls @ 100 mls/hr 12/07/18 18:45 12/08/18 03:08 IVPB 100 mls/hr Q8H-IV YAKOV Administration Protocol Insulin Aspart 1 vial 12/02/18 07:30 12/08/18 07:00 Novolog Vial Sliding Scale - SQ Not Given TID [facility] Protocol Insulin Detemir 20 units 11/30/18 21:42 12/07/18 21:50 Levemir Vial SQ 20 units HS YAKOV Administration Methadone HCl 40 mg 12/04/18 06:00 12/08/18 06:29 Dolophine - NGT 40 mg DAILY@0600 YAKOV Administration Metoclopramide HCl 10 mg 11/29/18 21:00 12/08/18 08:32 Reglan Injection - IVPUSH 10 mg Q6H-IV YAKOV Administration Metoprolol Tartrate 25 mg 12/05/18 11:30 12/07/18 21:48 Lopressor - PO 25 mg BID YAKOV Administration Metoprolol Tartrate 2.5 mg 12/07/18 18:30 Lopressor Injection - IVPUSH Q4H PRN HYPERTENSION Midazolam HCl 2 mg 12/05/18 20:18 12/06/18 22:10 Versed - IVPUSH 2 mg Q4H PRN Administration AGITATION Pantoprazole Sodium 40 mg 12/02/18 11:45 12/07/18 09:16 Protonix Iv IVPUSH 40 mg DAILY YAKOV Administration Tiotropium [place] 2 puff 11/26/18 10:00 12/07/18 09:17 Spiriva Respimat IH Not Given DAILY [facility] Valacyclovir HCl 500 mg 12/03/18 10:58 12/07/18 09:17 Valtrex - NGT 500 mg DAILY [facility] Administration ASSESSMENT/PLAN: Patient is a 63 year old male with history of hypertension, hyperlipidemia, insulin dependent diabetes mellitus, peripheral vascular disease, opoid dependence, multiple myeloma, admitted to ICU for acute hypoxic respiratory failure. Neurological -Patient is off sedation. Awake, alert. -Methadone 40mg PO daily -Monitor for signs of mental status change Pulmonary -Acute hypoxic, hypoxemic respiratory failure -Pneumonia, +MRSA nares colonization -Patient is extubated, saturating well on venturi- mask 40% -Follow ABG -Follow daily chest radiograph -Vancomycin 1250mg IV daily -Patient completed 7 days course of Zosyn -Lasix 40mg IV BID -DuoNebs Q6H, Spiriva 2 puffs IH daily -Maintain oxygen saturation greater than 90% Cardiovascular -Hypertension -NSTEMI -Troponin peaked at 21.6. Discussed with Cardiology, who recommends continuing Aspirin at this time. No indication for Heparin drip -Aspirin 81mg GT daily -Metoprolol 25mg GT daily -Holding home Atorvastatin due to transaminitis -Cardiac ECHO shows EF 45-50%, mild global hypokinesis, grade I diastolic dysfunction. -Arterial doppler right upper extremity shows decreased monophasic flow within right radial and ulnar arteries. -Vascular surgery consult appreciated. No surgical intervention indicated at this time. -Cardiology recommendations appreciated Gastrointestinal -Constipation -History of Hepatitis C -Transaminitis -Follow right upper quadrant ultrasound -HCV RNA PCR negative -No episodes of emesis overnight. -GI recommendations appreciated. -NPO today. Patient failed bedside swallow evaluation and will require speech, swallow evaluation prior to reinstating diet. -Protonix 40mg IV daily -Metoclopramide 10mg IV Q6H -Monitor serial occult blood testing Endocrine -Insulin dependent diabetes mellitus -Insulin sliding scale TID -Fingerstick blood glucose monitoring TID -Gabapentin 100mg PO TID for peripheral neuropathy Hematologic -Multiple Myeloma -S/P 1 unit PRBC transfusion -Maintain Hb above 8.0 -Multiple myeloma treatment, per hematology -Hematology recommendations appreciated Renal -DARIO -improving Hypocalcemia -Corrected Ca 9.4 -Nephrology recommendations (Dr. Cates) appreciated. -300cc free water Q4H via NG tube Infectious disease -Stool negative for C. difficile -Urine culture growing preliminary gram negative, non lactose fermenting rods. -Ceftazidime 1 gram IV Q8H -Vancomycin 1250mg IV daily FEN -Fluids: No IV fluids. 300cc free water Q4H via NG tube -Electrolytes: Follow CMP; replete as necessary. -Nutrition: NPO, pending speech, swallow evaluation. Prophylaxis -Heparin 5000u subq TID Lines, Tubes, Drains -Massey catheter changed 12/02 -Rectal tube placed 12/05 Disposition -Transfer patient to Telemetry floor. Patient is Full Code Visit type - Emergency Visit Emergency Visit: Yes ED Registration Date: 11/20/18 Care time: The patient presented to the Emergency Department on the above date and was hospitalized for further evaluation of their emergent condition. - New Patient This patient is new to me today: No - Critical Care Critical Care patient: Yes Total Critical Care Time (in minutes): 35 Critical Care Statement: The care of this patient involved high complexity decision making to prevent further life threatening deterioration of the patient 's condition and/or to evaluate & treat vital organ system(s) failure or risk of failure. - Discharge Referral Referred to [facility] No
[2018-12-08] MEDS: METOPROLOL TARTRATE 5 MG/5 ML VIAL IVPUSH PRN ×3 (09:00→17:56)
[2018-12-08] MEDS: FUROSEMIDE 40 MG/4 ML INJECTABLE VIAL IVPUSH SCH (09:37)
[2018-12-08] MEDS: PANTOPRAZOLE SODIUM 40 MG VIAL IVPUSH SCH (09:37)
[2018-12-08] MEDS: CHLORHEXIDINE GLUCONATE 0.12% 15ML CUP MM SCH (09:37)
[2018-12-08] MEDS: TIOTROPIUM BROMIDE 2.5 MCG (SPIRIVA) RESPIMAT INHALER IH SCH (09:38)
[2018-12-08] MEDS: VANCOMYCIN HCL 1,250 MG in DEXTROSE 5%-WATER - 250 ML IVPB SCH (11:00)
--- NOTE | 2018-12-08 11:20 | PN ---
Progress Note, Physician History of Present Illness: EXTUBATED NO ACUTE DISTRESS AFEBRILE WBC WNL REPEAT BC NO GROWTH SPUTUM C/S SERRATIA URINE C/S E COLI - Current Medication List Current Medications: Active Medications Acetaminophen (Tylenol -) 650 mg PO Q6H PRN PRN Reason: FEVER Last Admin: 12/07/18 17:32 Dose: 650 mg Albuterol Sulfate (Ventolin 0.083% Nebulizer Soln -) 1 amp NEB Q4H PRN PRN Reason: SHORT OF BREATH/WHEEZING Last Admin: 12/02/18 20:17 Dose: 1 amp Allopurinol (Zyloprim -) 300 mg NGT DAILY [facility] Last Admin: 12/07/18 09:18 Dose: 300 mg Aspirin (Asa -) 81 mg NGT DAILY [facility] Last Admin: 12/07/18 09:16 Dose: 81 mg Atorvastatin Calcium (Lipitor -) 80 mg NGT HS [facility] Last Admin: 12/07/18 21:48 Dose: 80 mg Buspirone HCl (Buspar -) 15 mg NGT BID [facility] Last Admin: 12/07/18 22:22 Dose: 15 mg Calcium Carbonate/Cholecalciferol (Os-Kyler 500+D -) 2 tab NGT DAILY [facility] Last Admin: 12/07/18 09:16 Dose: 2 tab Chlorhexidine Gluconate (Hibiclens For Decolonization -) 1 applic TP HS [facility] Last Admin: 12/07/18 21:55 Dose: 1 applic Chlorhexidine Gluconate (Peridex -) 15 ml MM BID [facility] Last Admin: 12/08/18 09:37 Dose: Not Given Furosemide (Lasix Injection -) 40 mg IVPUSH DAILY [facility] Last Admin: 12/08/18 09:37 Dose: 40 mg Gabapentin (Neurontin -) 100 mg NGT TID [facility] Last Admin: 12/08/18 06:29 Dose: 100 mg Heparin Sodium (Porcine) (Heparin -) 5,000 unit SQ TID [facility] Last Admin: 12/08/18 06:29 Dose: 5,000 unit Vancomycin HCl 1,250 mg/ (Dextrose) 250 mls @ 250 mls/2 hr IVPB Q24H YAKOV; Protocol Last Admin: 12/07/18 11:08 Dose: 250 mls/2 hr Dexmedetomidine HCl 400 mcg/ (Sodium Chloride) 100 mls @ 16.78 mls/hr IVPB TITR YAKOV Last Admin: 12/07/18 18:09 Dose: Not Given Ceftazidime 1 gm/ Dextrose 50 mls @ 100 mls/hr IVPB Q8H-IV [facility]; Protocol Last Admin: 12/08/18 09:36 Dose: 100 mls/hr Insulin Aspart (Novolog Vial Sliding Scale -) 1 vial SQ TID [facility]; Protocol Last Admin: 12/08/18 07:00 Dose: Not Given Insulin Detemir (Levemir Vial) 20 units SQ HS [facility] Last Admin: 12/07/18 21:50 Dose: 20 units Methadone HCl (Dolophine -) 40 mg NGT DAILY@0600 [facility] Last Admin: 12/08/18 06:29 Dose: 40 mg Metoclopramide HCl (Reglan Injection -) 10 mg IVPUSH Q6H-IV [facility] Last Admin: 12/08/18 08:32 Dose: 10 mg Metoprolol Tartrate (Lopressor -) 25 mg PO BID [facility] Last Admin: 12/07/18 21:48 Dose: 25 mg Metoprolol Tartrate (Lopressor Injection -) 2.5 mg IVPUSH Q4H PRN PRN Reason: HYPERTENSION Midazolam HCl (Versed -) 2 mg IVPUSH Q4H PRN PRN Reason: AGITATION Last Admin: 12/06/18 22:10 Dose: 2 mg Pantoprazole Sodium (Protonix Iv) 40 mg IVPUSH DAILY [facility] Last Admin: 12/08/18 09:37 Dose: 40 mg Tiotropium [place] (Spiriva Respimat) 2 puff IH DAILY [facility] Last Admin: 12/08/18 09:38 Dose: Not Given Valacyclovir HCl (Valtrex -) 500 mg NGT DAILY [facility] Last Admin: 12/07/18 09:17 Dose: 500 mg - Objective Vital Signs: Vital Signs Temperature 99.7 F H 12/08/18 04:00 Pulse Rate 92 H 12/08/18 08:00 Respiratory Rate 13 12/08/18 08:00 Blood Pressure 159/81 12/08/18 08:00 O2 Sat by Pulse Oximetry (%) 97 12/08/18 08:46 Constitutional: Yes: No Distress Cardiovascular: Yes: Regular Rate and Rhythm, S1, S2 Respiratory: Yes: Diminished Gastrointestinal: Yes: Normal Bowel Sounds, Soft, Tenderness Edema: No Labs: CBC, BMP 12/08/18 05:30 12/08/18 05:30 INR, PTT INR 1.19 (0.83-1.09) H 11/30/18 05:30 Fibrinogen > 500.0 mg/dL (238-498) H 11/25/18 20:00 Assessment/Plan RESPIRATORY FAILURE PULMONARY EDEMA R/O HCAP UTI MYELOMA DM CKD + SPUTUM MRSA CXR ? INCREASED MARKINGS L BASE CONTINUE VANCOMYCIN CEFTAZIDIME ADDED CONTINUE VENTILATORY SUPPORT
--- NOTE | 2018-12-08 12:43 | PN ---
Progress Note, Physician Chief Complaint: patient extubated on bipap - Current Medication List Current Medications: Active Medications Acetaminophen (Tylenol -) 650 mg PO Q6H PRN PRN Reason: FEVER Last Admin: 12/07/18 17:32 Dose: 650 mg Albuterol Sulfate (Ventolin 0.083% Nebulizer Soln -) 1 amp NEB Q4H PRN PRN Reason: SHORT OF BREATH/WHEEZING Last Admin: 12/02/18 20:17 Dose: 1 amp Allopurinol (Zyloprim -) 300 mg NGT DAILY [facility] Last Admin: 12/07/18 09:18 Dose: 300 mg Aspirin (Asa -) 81 mg NGT DAILY [facility] Last Admin: 12/07/18 09:16 Dose: 81 mg Atorvastatin Calcium (Lipitor -) 80 mg NGT HS [facility] Last Admin: 12/07/18 21:48 Dose: 80 mg Buspirone HCl (Buspar -) 15 mg NGT BID [facility] Last Admin: 12/07/18 22:22 Dose: 15 mg Calcium Carbonate/Cholecalciferol (Os-Kyler 500+D -) 2 tab NGT DAILY [facility] Last Admin: 12/07/18 09:16 Dose: 2 tab Chlorhexidine Gluconate (Hibiclens For Decolonization -) 1 applic TP HS [facility] Last Admin: 12/07/18 21:55 Dose: 1 applic Chlorhexidine Gluconate (Peridex -) 15 ml MM BID [facility] Last Admin: 12/08/18 09:37 Dose: Not Given Furosemide (Lasix Injection -) 40 mg IVPUSH BIDLASIX [facility] Gabapentin (Neurontin -) 100 mg NGT TID [facility] Last Admin: 12/08/18 06:29 Dose: 100 mg Heparin Sodium (Porcine) (Heparin -) 5,000 unit SQ TID [facility] Last Admin: 12/08/18 06:29 Dose: 5,000 unit Vancomycin HCl 1,250 mg/ (Dextrose) 250 mls @ 250 mls/2 hr IVPB Q24H [facility]; Protocol Last Admin: 12/07/18 11:08 Dose: 250 mls/2 hr Ceftazidime 1 gm/ Dextrose 50 mls @ 100 mls/hr IVPB Q8H-IV [facility]; Protocol Last Admin: 12/08/18 09:36 Dose: 100 mls/hr Insulin Aspart (Novolog Vial Sliding Scale -) 1 vial SQ TID [facility]; Protocol Last Admin: 12/08/18 07:00 Dose: Not Given Insulin Detemir (Levemir Vial) 20 units SQ HS [facility] Last Admin: 12/07/18 21:50 Dose: 20 units Methadone HCl (Dolophine -) 40 mg NGT DAILY@0600 [facility] Last Admin: 12/08/18 06:29 Dose: 40 mg Metoclopramide HCl (Reglan Injection -) 10 mg IVPUSH Q6H-IV [facility] Last Admin: 12/08/18 08:32 Dose: 10 mg Metoprolol Tartrate (Lopressor -) 25 mg PO BID [facility] Last Admin: 12/07/18 21:48 Dose: 25 mg Metoprolol Tartrate (Lopressor Injection -) 2.5 mg IVPUSH Q4H PRN PRN Reason: HYPERTENSION Pantoprazole Sodium (Protonix Iv) 40 mg IVPUSH DAILY [facility] Last Admin: 12/08/18 09:37 Dose: 40 mg Tiotropium [place] (Spiriva Respimat) 2 puff IH DAILY [facility] Last Admin: 12/08/18 09:38 Dose: Not Given Valacyclovir HCl (Valtrex -) 500 mg NGT DAILY [facility] Last Admin: 12/07/18 09:17 Dose: 500 mg - Objective Vital Signs: Vital Signs Temperature 98.8 F 12/08/18 10:00 Pulse Rate 94 H 12/08/18 10:00 Respiratory Rate 13 12/08/18 10:00 Blood Pressure 152/96 12/08/18 10:00 O2 Sat by Pulse Oximetry (%) 95 12/08/18 11:47 Constitutional: Yes: Calm Cardiovascular: Yes: Regular Rate and Rhythm, S1, S2 Respiratory: Yes: Diminished Gastrointestinal: Yes: Normal Bowel Sounds, Soft Edema: No Labs: CBC, BMP 12/08/18 05:30 12/08/18 05:30 INR, PTT INR 1.19 (0.83-1.09) H 11/30/18 05:30 Fibrinogen > 500.0 mg/dL (238-498) H 11/25/18 20:00 Problem List - Problems (1) Respiratory failure Assessment/Plan: iv lasix bid for pulm edema extubated on bipap monitor renal function and potassium positve MRSA in sputum on vancomycin Code(s): J96.90 - RESPIRATORY FAILURE, UNSP, UNSP W HYPOXIA OR HYPERCAPNIA (2) Vertebral compression fracture Assessment/Plan: radiation oncology and JOSE MANUEL noted to follow up as outpatient Code(s): M48.50XA - COLLAPSED VERTEBRA, NEC, SITE UNSP, INIT (3) Hyponatremia Assessment/Plan: resolve now sodium is 142 is slowly uptrending Code(s): E87.1 - HYPO-OSMOLALITY AND HYPONATREMIA (4) Diabetes Assessment/Plan: levemir [id number] 7.7 Code(s): E11.9 - TYPE 2 DIABETES MELLITUS WITHOUT COMPLICATIONS Qualifiers: Diabetes mellitus type: type 2 (5) Multiple myeloma Assessment/Plan: last treatment was 11/18 Code(s): C90.00 - MULTIPLE MYELOMA NOT HAVING ACHIEVED REMISSION (6) Hypocalcemia Assessment/Plan: now calcium is better calcium tablets Code(s): E83.51 - HYPOCALCEMIA (7) Elevated troponin Assessment/Plan: due to demand ischemia on aspirin and lipitor Code(s): R74.8 - ABNORMAL LEVELS OF OTHER SERUM ENZYMES (8) UTI (urinary tract infection) Assessment/Plan: Microbiology 12/05/18 20:40 Urine - Urine Massey Urine Culture - Final Escherichia Coli 11/28/18 10:40 Sputum - Endotrachea Suction/Ventilator Gram Stain - Final 11/28/18 10:40 Sputum - Endotrachea Suction/Ventilator Sputum Culture - Final S Aureus ceftazidime Code(s): N39.0 - URINARY TRACT INFECTION, SITE NOT SPECIFIED
--- NOTE | 2018-12-08 13:13 | PN ---
Teaching Attending Note Name of Resident: Tarun Guzmán ATTENDING PHYSICIAN STATEMENT I saw and evaluated the patient. I reviewed the resident's note and discussed the case with the resident. I agree with the resident's findings and plan as documented. SUBJECTIVE: Pt seen and examined in the ICU. Remains extubated. On/off BiPAP but transitioned to nasal cannula this AM. OBJECTIVE: Vital Signs Period Temp Pulse Resp BP Sys/Andre Pulse Ox Last 24 Hr 98.8 F-99.7 F 90-105 12-28 152-192/81-98 95-100 Intake & Output 12/05/18 12/06/18 12/07/18 12/08/18 23:59 23:59 23:59 23:59 Intake Total 1849 2002 1392 50 Output Total 2600 1900 1300 900 Balance -751 103 92 -850 Weight 95.9 kg 93.894 kg 93.695 kg 90.917 kg Gen: mildly tachypneic at rest Heart: RRR Lung: decreased breath sounds at the bases Abd: soft, nontender Ext: no edema CBC, BMP 12/08/18 05:30 12/08/18 05:30 Active Medications Acetaminophen (Tylenol -) 650 mg PO Q6H PRN PRN Reason: FEVER Last Admin: 12/07/18 17:32 Dose: 650 mg Albuterol Sulfate (Ventolin 0.083% Nebulizer Soln -) 1 amp NEB Q4H PRN PRN Reason: SHORT OF BREATH/WHEEZING Last Admin: 12/02/18 20:17 Dose: 1 amp Allopurinol (Zyloprim -) 300 mg NGT DAILY [facility] Last Admin: 12/07/18 09:18 Dose: 300 mg Aspirin (Asa -) 81 mg NGT DAILY [facility] Last Admin: 12/07/18 09:16 Dose: 81 mg Atorvastatin Calcium (Lipitor -) 80 mg NGT HS [facility] Last Admin: 12/07/18 21:48 Dose: 80 mg Buspirone HCl (Buspar -) 15 mg NGT BID [facility] Last Admin: 12/07/18 22:22 Dose: 15 mg Calcium Carbonate/Cholecalciferol (Os-Kyler 500+D -) 2 tab NGT DAILY [facility] Last Admin: 12/07/18 09:16 Dose: 2 tab Chlorhexidine Gluconate (Hibiclens For Decolonization -) 1 applic TP HS [facility] Last Admin: 12/07/18 21:55 Dose: 1 applic Chlorhexidine Gluconate (Peridex -) 15 ml MM BID [facility] Last Admin: 12/08/18 09:37 Dose: Not Given Furosemide (Lasix Injection -) 40 mg IVPUSH BIDLASIX YAKOV Gabapentin (Neurontin -) 100 mg NGT TID [facility] Last Admin: 12/08/18 06:29 Dose: 100 mg Heparin Sodium (Porcine) (Heparin -) 5,000 unit SQ TID [facility] Last Admin: 12/08/18 06:29 Dose: 5,000 unit Vancomycin HCl 1,250 mg/ (Dextrose) 250 mls @ 250 mls/2 hr IVPB Q24H [facility]; Protocol Last Admin: 12/07/18 11:08 Dose: 250 mls/2 hr Ceftazidime 1 gm/ Dextrose 50 mls @ 100 mls/hr IVPB Q8H-IV [facility]; Protocol Last Admin: 12/08/18 09:36 Dose: 100 mls/hr Insulin Aspart (Novolog Vial Sliding Scale -) 1 vial SQ TID [facility]; Protocol Last Admin: 12/08/18 07:00 Dose: Not Given Insulin Detemir (Levemir Vial) 20 units SQ [facility] Last Admin: 12/07/18 21:50 Dose: 20 units Methadone HCl (Dolophine -) 40 mg NGT DAILY@0600 [facility] Last Admin: 12/08/18 06:29 Dose: 40 mg Metoclopramide HCl (Reglan Injection -) 10 mg IVPUSH Q6H-IV [facility] Last Admin: 12/08/18 08:32 Dose: 10 mg Metoprolol Tartrate (Lopressor -) 25 mg PO BID [facility] Last Admin: 12/07/18 21:48 Dose: 25 mg Metoprolol Tartrate (Lopressor Injection -) 2.5 mg IVPUSH Q4H PRN PRN Reason: HYPERTENSION Pantoprazole Sodium (Protonix Iv) 40 mg IVPUSH DAILY [facility] Last Admin: 12/08/18 09:37 Dose: 40 mg Tiotropium [place] (Spiriva Respimat) 2 puff IH DAILY [facility] Last Admin: 12/08/18 09:38 Dose: Not Given Valacyclovir HCl (Valtrex -) 500 mg NGT DAILY [facility] Last Admin: 12/07/18 09:17 Dose: 500 mg ASSESSMENT AND PLAN: Acute Hypoxic and Hypercapneic Respiratory Failure improving Acute Pulmonary Edema Acute NSTEMI r/o Pneumonia UTI Acute on Chronic Renal Failure HTN DM COPD Methadone Maintenance - continue antibiotics per ID - continue lasix - monitor urine output, creatinine - replete lytes - ASA - inhaled bronchodilators - aspiration precautions - rehab/PT - may need physiatry eval/EMG if unable to participate in PT - DVT/GI prophylaxis - can monitor on floor critical care time spent in reviewing chart, evaluating patient and formulating plan 35 min
[2018-12-08] MEDS: ALLOPURINOL 300 MG TABLET (FP) NGT SCH (13:46)
[2018-12-08] MEDS: CALCIUM 500MG/VIT-D 200 UNITS COMBO TABLET (FP) NGT SCH (13:46)
[2018-12-08] MEDS: METOPROLOL TARTRATE 25 MG TABLET (FP) PO SCH ×2 (13:47→21:10)
[2018-12-08] MEDS: busPIRone HCL 5 MG TABLET NGT SCH ×2 (13:47→21:11)
[2018-12-08] MEDS: valACYclovir HCL 500 MG TABLET (FP) NGT SCH (13:48)
[2018-12-08] MEDS: ASPIRIN 81 MG CHEWABLE TABLETS NGT SCH (13:48)
[2018-12-08] MEDS ORDERED: FUROSEMIDE 40 MG/4 ML INJECTABLE VIAL IVPUSH SCH (14:00)
--- NOTE | 2018-12-08 14:24 | PN ---
Progress Note, Physician History of Present Illness: Pt seen and examined at bedside. He is awake and more interactive today. - Current Medication List Current Medications: Active Medications Acetaminophen (Tylenol -) 650 mg PO Q6H PRN PRN Reason: FEVER Last Admin: 12/07/18 17:32 Dose: 650 mg Albuterol Sulfate (Ventolin 0.083% Nebulizer Soln -) 1 amp NEB Q4H PRN PRN Reason: SHORT OF BREATH/WHEEZING Last Admin: 12/02/18 20:17 Dose: 1 amp Allopurinol (Zyloprim -) 300 mg NGT DAILY [facility] Last Admin: 12/08/18 13:46 Dose: 300 mg Aspirin (Asa -) 81 mg NGT DAILY [facility] Last Admin: 12/08/18 13:48 Dose: 81 mg Atorvastatin Calcium (Lipitor -) 80 mg NGT HS [facility] Last Admin: 12/07/18 21:48 Dose: 80 mg Buspirone HCl (Buspar -) 15 mg NGT BID [facility] Last Admin: 12/08/18 13:47 Dose: 15 mg Calcium Carbonate/Cholecalciferol (Os-Kyler 500+D -) 2 tab NGT DAILY [facility] Last Admin: 12/08/18 13:46 Dose: 2 tab Chlorhexidine Gluconate (Hibiclens For Decolonization -) 1 applic TP HS [facility] Last Admin: 12/07/18 21:55 Dose: 1 applic Chlorhexidine Gluconate (Peridex -) 15 ml MM BID [facility] Last Admin: 12/08/18 09:37 Dose: Not Given Furosemide (Lasix Injection -) 40 mg IVPUSH BIDLASIX [facility] Last Admin: 12/08/18 13:52 Dose: 40 mg Gabapentin (Neurontin -) 100 mg NGT TID [facility] Last Admin: 12/08/18 13:51 Dose: 100 mg Heparin Sodium (Porcine) (Heparin -) 5,000 unit SQ TID [facility] Last Admin: 12/08/18 13:52 Dose: 5,000 unit Vancomycin HCl 1,250 mg/ (Dextrose) 250 mls @ 250 mls/2 hr IVPB Q24H [facility]; Protocol Last Admin: 12/08/18 11:00 Dose: 250 mls/2 hr Ceftazidime 1 gm/ Dextrose 50 mls @ 100 mls/hr IVPB Q8H-IV [facility]; Protocol Last Admin: 12/08/18 09:36 Dose: 100 mls/hr Insulin Aspart (Novolog Vial Sliding Scale -) 1 vial SQ TID [facility]; Protocol Last Admin: 12/08/18 14:16 Dose: Not Given Insulin Detemir (Levemir Vial) 20 units SQ HS [facility] Last Admin: 12/07/18 21:50 Dose: 20 units Methadone HCl (Dolophine -) 40 mg NGT DAILY@0600 [facility] Last Admin: 12/08/18 06:29 Dose: 40 mg Metoclopramide HCl (Reglan Injection -) 10 mg IVPUSH Q6H-IV [facility] Last Admin: 12/08/18 08:32 Dose: 10 mg Metoprolol Tartrate (Lopressor -) 25 mg PO BID [facility] Last Admin: 12/08/18 13:47 Dose: 25 mg Metoprolol Tartrate (Lopressor Injection -) 2.5 mg IVPUSH Q4H PRN PRN Reason: HYPERTENSION Last Admin: 12/08/18 13:19 Dose: 2.5 mg Pantoprazole Sodium (Protonix Iv) 40 mg IVPUSH DAILY [facility] Last Admin: 12/08/18 09:37 Dose: 40 mg Tiotropium [place] (Spiriva Respimat) 2 puff IH DAILY [facility] Last Admin: 12/08/18 09:38 Dose: Not Given Valacyclovir HCl (Valtrex -) 500 mg NGT DAILY [facility] Last Admin: 12/08/18 13:48 Dose: 500 mg - Objective Vital Signs: Vital Signs Temperature 99.1 F 12/08/18 14:00 Pulse Rate 92 H 12/08/18 14:00 Respiratory Rate 13 12/08/18 14:00 Blood Pressure 175/70 H 12/08/18 14:00 O2 Sat by Pulse Oximetry (%) 96 12/08/18 13:47 Constitutional: Yes: Calm Eyes: Yes: Conjunctiva Clear HENT: Yes: Atraumatic Cardiovascular: Yes: S1, S2 Respiratory: Yes: On Venti-Mask Gastrointestinal: Yes: Soft, Abdomen, Obese Genitourinary: Yes: Massey Present Musculoskeletal: Yes: WNL Edema: No Neurological: Yes: Oriented Psychiatric: Yes: Oriented Labs: CBC, BMP 12/08/18 05:30 12/08/18 05:30 INR, PTT INR 1.19 (0.83-1.09) H 11/30/18 05:30 Fibrinogen > 500.0 mg/dL (238-498) H 11/25/18 20:00 Problem List - Problems (1) CKD (chronic kidney disease) Code(s): N18.9 - CHRONIC KIDNEY DISEASE, UNSPECIFIED (2) Constipation Code(s): K59.00 - CONSTIPATION, UNSPECIFIED Qualifiers: Constipation type: unspecified constipation type Qualified Code(s): K59.00 - Constipation, unspecified (3) Hyponatremia Code(s): E87.1 - HYPO-OSMOLALITY AND HYPONATREMIA Assessment/Plan Current Medications Generic Name Dose Route Start Last Admin Trade Name Freq PRN Reason Stop Dose Admin Acetaminophen 650 mg 12/05/18 13:14 12/07/18 17:32 Tylenol - PO 650 mg Q6H PRN Administration FEVER Albuterol Sulfate 1 amp 11/29/18 21:21 12/02/18 20:17 Ventolin 0.083% Nebulizer Soln - NEB 1 amp Q4H PRN Administration SHORT OF BREATH/WHEEZING Allopurinol 300 mg 12/03/18 10:57 12/08/18 13:46 Zyloprim - NGT 300 mg DAILY [facility] Administration Aspirin 81 mg 12/03/18 10:58 12/08/18 13:48 Asa - NGT 81 mg DAILY [facility] Administration Atorvastatin Calcium 80 mg 12/03/18 22:00 12/07/18 21:48 Lipitor - NGT 80 mg HS [facility] Administration Buspirone HCl 15 mg 12/03/18 10:58 12/08/18 13:47 Buspar - NGT 15 mg BID [facility] Administration Calcium Carbonate/Cholecalciferol 2 tab 12/03/18 10:58 12/08/18 13:46 Os-Kyler 500+D - NGT 2 tab DAILY [facility] Administration Chlorhexidine Gluconate 1 applic 11/26/18 22:00 12/07/18 21:55 Hibiclens For Decolonization - TP 1 applic HS [facility] Administration Chlorhexidine Gluconate 15 ml 11/27/18 22:00 12/08/18 09:37 Peridex - MM Not Given BID [facility] Furosemide 40 mg 12/08/18 14:00 12/08/18 13:52 Lasix Injection - IVPUSH 40 mg BIDLASIX [facility]AKOV Administration Gabapentin 100 mg 12/03/18 14:00 12/08/18 13:51 Neurontin - NGT 100 mg TID [facility] Administration Heparin Sodium (Porcine) 5,000 unit 11/30/18 22:00 12/08/18 13:52 Heparin - SQ 5,000 unit TID [facility] Administration Vancomycin HCl 1,250 mg/ 250 mls @ 250 mls/2 hr 12/03/18 11:15 12/08/18 11:00 Dextrose IVPB 250 mls/2 hr Q24H [facility] Administration Protocol Ceftazidime 1 gm/ Dextrose 50 mls @ 100 mls/hr 12/07/18 18:45 12/08/18 09:36 IVPB 100 mls/hr Q8H-IV [facility] Administration Protocol Insulin Aspart 1 vial 12/02/18 07:30 12/08/18 14:16 Novolog Vial Sliding Scale - SQ Not Given TID [facility] Protocol Insulin Detemir 20 units 11/30/18 21:42 12/07/18 21:50 Levemir Vial SQ 20 units HS [facility] Administration Methadone HCl 40 mg 12/04/18 06:00 12/08/18 06:29 Dolophine - NGT 40 mg DAILY@0600 [facility] Administration Metoclopramide HCl 10 mg 11/29/18 21:00 12/08/18 08:32 Reglan Injection - IVPUSH 10 mg Q6H-IV [facility] Administration Metoprolol Tartrate 25 mg 12/05/18 11:30 12/08/18 13:47 Lopressor - PO 25 mg BID [facility] Administration Metoprolol Tartrate 2.5 mg 12/07/18 18:30 12/08/18 13:19 Lopressor Injection - IVPUSH 2.5 mg Q4H PRN Administration HYPERTENSION Pantoprazole Sodium 40 mg 12/02/18 11:45 12/08/18 09:37 Protonix Iv IVPUSH 40 mg DAILY [facility] Administration Tiotropium [place] 2 puff 11/26/18 10:00 12/08/18 09:38 Spiriva Respimat IH Not Given DAILY [facility] Valacyclovir HCl 500 mg 12/03/18 10:58 12/08/18 13:48 Valtrex - NGT 500 mg DAILY [facility] Administration Impression 1. hyponatremia 2. CKD 3. nausea and vomiting 4. htn 5. DM 6. 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 multiple myeloma 9. anemia 10. proteinuria 11. hyperkalemia 12. resp failure 13. volume overload 14. hypernatremia Plan - cont to monitor pulse ox - sodium is now elevated - he has about a 3 liter water deficit - add free water to tube feeds - discussed with ICU team - monitor sodium - swallow eval Dr Cates
--- NOTE | 2018-12-08 15:20 | PN ---
Physical Exam: SUBJECTIVE: Patient seen and examined extubated; on venti mask ; +cough; + throat pain; +sputum production OBJECTIVE: Vital Signs Period Temp Pulse Resp BP Sys/Andre Pulse Ox Last 24 Hr 98.8 F-99.7 F 90-105 12- 152-192/70-98 95-100 GENERAL: The patient is awake, alert, and fully oriented, on venti mask; cannot talk due to pain from intubated; LUNGS: b/l congestion; HEART: Regular rate and rhythm, S1, S2 without murmur, rub or gallop. ABDOMEN: Soft, nontender, nondistended, normoactive bowel sounds, no guarding, no rebound, no hepatosplenomegaly, no masses. EXTREMITIES: 2+ pulses, warm, well-perfused, no edema. NEUROLOGICAL: Cranial nerves II through XII grossly intact. PSYCH: Normal mood, normal affect. SKIN: Warm, dry, normal turgor, no rashes or lesions noted Laboratory Results - last 24 hr 12/07/18 12/07/18 12/08/18 16:45 22:03 05:30 WBC 8.6 RBC 3.71 L Hgb 10.7 L Hct 32.0 L D MCV 86.1 MCH 28.7 MCHC 33.3 RDW 17.5 H Plt Count 239 MPV 7.8 Anticoagulation Therapy Puncture Site ABG pH ABG pCO2 at Pt Temp ABG pO2 at Pt Temp ABG HCO3 ABG O2 Sat (Measured) ABG O2 Content ABG Base Excess Benny Test O2 Delivery Device Oxygen Flow Rate Vent Mode Vent Rate Mechanical Rate Pressure Support Vent Sodium Potassium Chloride Carbon Dioxide Anion Gap BUN Creatinine Creat Clearance w eGFR POC Glucometer 198 171 Random Glucose Calcium Phosphorus Magnesium Total Bilirubin AST ALT Alkaline Phosphatase Total Protein Albumin 12/08/18 12/08/18 12/08/18 05:30 05:40 14:14 WBC RBC Hgb Hct MCV MCH MCHC RDW Plt Count MPV Anticoagulation Therapy No Result Required. Puncture Site Right radial ABG pH 7.40 ABG pCO2 at Pt Temp 45.0 ABG pO2 at Pt Temp 86.4 ABG HCO3 27.2 H ABG O2 Sat (Measured) 95.9 ABG O2 Content 16.8 ABG Base Excess 2.5 H Benny Test Positive O2 Delivery Device No Result Required. Oxygen Flow Rate 40% Vent Mode S/t Vent Rate 20 Mechanical Rate No Result Required. Pressure Support Vent 14/6 Sodium 151 H Potassium 3.5 Chloride 114 H Carbon Dioxide 32 Anion Gap 6 L BUN 52 H Creatinine 1.6 H Creat Clearance w eGFR 43.60 POC Glucometer 160 Random Glucose 147 H Calcium 8.0 L Phosphorus 3.0 Magnesium 2.2 Total Bilirubin 0.5 AST 160 H ALT 190 H Alkaline Phosphatase 227 H Total Protein 6.4 Albumin 2.3 L Active Medications Generic Name Dose Route Start Last Admin Trade Name Freq PRN Reason Stop Dose Admin Acetaminophen 650 mg 12/05/18 13:14 12/07/18 17:32 Tylenol - PO 650 mg Q6H PRN Administration FEVER Albuterol Sulfate 1 amp 11/29/18 21:21 12/02/18 20:17 Ventolin 0.083% Nebulizer Soln - NEB 1 amp Q4H PRN Administration SHORT OF BREATH/WHEEZING Allopurinol 300 mg 12/03/18 10:57 12/08/18 13:46 Zyloprim - NGT 300 mg DAILY [facility] Administration Aspirin 81 mg 12/03/18 10:58 12/08/18 13:48 Asa - NGT 81 mg DAILY [facility] Administration Atorvastatin Calcium 80 mg 12/03/18 22:00 12/07/18 21:48 Lipitor - NGT 80 mg HS [facility] Administration Buspirone HCl 15 mg 12/03/18 10:58 12/08/18 13:47 Buspar - NGT 15 mg BID [facility] Administration Calcium Carbonate/Cholecalciferol 2 tab 12/03/18 10:58 12/08/18 13:46 Os-Kyler 500+D - NGT 2 tab DAILY [facility] Administration Chlorhexidine Gluconate 1 applic 11/26/18 22:00 12/07/18 21:55 Hibiclens For Decolonization - TP 1 applic HS [facility] Administration Chlorhexidine Gluconate 15 ml 11/27/18 22:00 12/08/18 09:37 Peridex - MM Not Given BID [facility] Furosemide 40 mg 12/08/18 14:00 12/08/18 13:52 Lasix Injection - IVPUSH 40 mg BIDLASIX [facility] Administration Gabapentin 100 mg 12/03/18 14:00 12/08/18 13:51 Neurontin - NGT 100 mg TID [facility] Administration Heparin Sodium (Porcine) 5,000 unit 11/30/18 22:00 12/08/18 13:52 Heparin - SQ 5,000 unit TID [facility] Administration Vancomycin HCl 1,250 mg/ 250 mls @ 250 mls/2 hr 12/03/18 11:15 12/08/18 11:00 Dextrose IVPB 250 mls/2 hr Q24H [facility] Administration Protocol Ceftazidime 1 gm/ Dextrose 50 mls @ 100 mls/hr 12/07/18 18:45 12/08/18 09:36 IVPB 100 mls/hr Q8H-IV [facility] Administration Protocol Insulin Aspart 1 vial 12/02/18 07:30 12/08/18 14:16 Novolog Vial Sliding Scale - SQ Not Given TID [facility] Protocol Insulin Detemir 20 units 11/30/18 21:42 12/07/18 21:50 Levemir Vial SQ 20 units HS [facility] Administration Methadone HCl 40 mg 12/04/18 06:00 12/08/18 06:29 Dolophine - NGT 40 mg DAILY@0600 [facility] Administration Metoclopramide HCl 10 mg 11/29/18 21:00 12/08/18 08:32 Reglan Injection - IVPUSH 10 mg Q6H-IV [facility] Administration Metoprolol Tartrate 25 mg 12/05/18 11:30 12/08/18 13:47 Lopressor - PO 25 mg BID [facility] Administration Metoprolol Tartrate 2.5 mg 12/07/18 18:30 12/08/18 13:19 Lopressor Injection - IVPUSH 2.5 mg Q4H PRN Administration HYPERTENSION Pantoprazole Sodium 40 mg 12/02/18 11:45 12/08/18 09:37 Protonix Iv IVPUSH 40 mg DAILY [facility] Administration Tiotropium [place] 2 puff 11/26/18 10:00 12/08/18 09:38 Spiriva Respimat IH Not Given DAILY [facility] Valacyclovir HCl 500 mg 12/03/18 10:58 12/08/18 13:48 Valtrex - NGT 500 mg DAILY [facility] Administration ASSESSMENT/PLAN: 63 yo M, with PMH of HTN, HLD, IDDM, Hep C (s/p Harvoni), PVD, past opioid use ( on methadone), and multiple myeloma , who was admitted for nausea, vomiting, abdominal distension and discomfort, and constipation worsened over the weekend. He received radiation to L spine and left acetabulum. MM with osteolytic lesions NSTEMI Acute hypercapniec/hypoxic respiratory failure sec to pulmonary edema ; PNA? anemia CKD hyponatremia hypertension DM -extubated -monitor h/h -MRI noted neurosurgery eval; vertebral MM; nothing to do at this time; no significant neurological element compression -velcade/cytoxan/dexamethasone and started zometa monthly; no on hold -seen by rad/onc; can f/u in office -PULM/GI/CARDS/ID following Myeloma--on velcade/cytoxan/dex --last dose 11/18 On zometa--11/18 treatment held last week light chains decreasing slowly s/p rt to lspine and left acetabular fx will resume based on clinical course Visit type - Emergency Visit Emergency Visit: Yes ED Registration Date: 11/20/18 Care time: The patient presented to the Emergency Department on the above date and was hospitalized for further evaluation of their emergent condition. - New Patient This patient is new to me today: No - Critical Care Critical Care patient: No
--- NOTE | 2018-12-08 16:36 | CONSULT ---
Admitting History and Physical - Admission History of Present Illness: 63 yo M, with PMH of HTN, HLD, IDDM, Hep C (s/p Reji), PVD, past opioid use ( on methadone), and multiple myeloma , who was admitted 12/19/18 for nausea, vomiting, abdominal distension and discomfort, and constipation worsened over the weekend. He received radiation to L spine and left acetabulum. MM with osteolytic lesions NSTEMI Acute hypercapniec/hypoxic respiratory failure sec to pulmonary edema ; PNA? anemia CKD hyponatremia hypertension DM RR 12/23 Previously extubated but needed to be reintubated. extubated yesterday . Copious thick secretions suctioned by nursing, clogging up Yankower. Pt unable to expectorate phlegm. Weak cough. Euphoric/laughing. Imprecise speech. NGT in place. 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: Peripheral Neuropathy (stocking glove distribution related to DM) Cardiovascular: Yes: CHF, HTN, Hyperlipdemia Pulmonary: Yes: Asthma, Other (left chest tube for rib fracture related pneumothorax afte a fall) Gastrointestinal: Yes: Constipation Hepatobiliary: Yes: Hepatitis C (cured several years ago with Dr Bedolla) Renal/: Yes: Renal Inusuff Heme/Onc: Yes: Cancer (multiple myeloma treated with RT and now Velban) Infectious Disease: Yes: Other (Hepatitis C cured) Psych: Yes: Depression Musculoskeletal: Yes: Chronic low back pain, Other (multiple thoracolumbar vertebral fractures) Endocrine: Yes: Diabetes Mellitus Dermatology: Yes: Other (varicose veins) - Past Surgical History Past Surgical History: Yes: Amputation (5th digit R foot), Tonsillectomy - Advance Directives Advance Directives: Yes: Living Will - Smoking History Smoking history: Former smoker Have you smoked in the past 12 months: No If you are a former smoker, when did you quit?: 1996 - Alcohol/Substance Use Hx Alcohol Use: Yes (rare glass of wine, drank heavily over 10 years ago) History of Substance Use: reports: None (snorted), Cocaine, Heroin (sorteh) - Social History ADL: Independent 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 Impaired head support.) - Hearing Hearing: Functional Speech Evaluation - Communication Primary Language: GEORGIAN Communication: Yes: Simple Responses Oral Expression Ability: Yes: Moderate Impairment - Speech Production Able to Make Needs Known: Yes: Moderately Impaired Intelligibility: Yes: Moderately Impaired - Speech Characteristics Voice Loudness: Moderately Soft/Quiet Voice Pitch: Yes: Mildly Low Voice Phonatory-based Quality: Yes: Weak, Dysphonia, Vocal Wetness Speech Pattern: Impaired Speech Clarity: < 25% Articulation: Yes: Imprecise Rate of Speech: Too Slow Voice, Other Observations: Yes: Inadequate Breath Support - Language/Auditory Comprehension Follows: Yes: 1 Stage Simple Commands - Language/Verbal Expression Able to Respond to Simple Queries: Yes: Severely Impaired Able to Communicate Wants and Needs: Yes: Severely Impaired - Swallow Evaluation/Bedside Assessment Current Nutritional Intake: NG Tube Oral Secretions: Yes: Copious Secretions Facial Symmetry at Rest: Symmetrical Against Resistance Opening: Weak Against Resistance Closing: Weak Pucker Lips: Weak Smile: Weak Lingual Movement: Symmetric, Reduced Protrusion Lingual Speed of Movement: Reduced Lingual Movement Strgth Against Opposition: Reduced Laryngeal Elevation: Impaired Coughing/Throat Clear: Yes (Coughing on secretions. No PO trials given) Recommendations - Speech Evaluation, Impression/Plan Impression: Extubated yesterday after extended intubation. Copious secretions. Weak unprotective cough. Poo head support. Impaired intelligibilty with weak, dysphonic, wet voice. High risk of aspiration and suspect poor airway protection at this time. NGT in place. - Disposition Discharge to: To be Determined - Dysphagia Impressions/Plan Swallowing Skills: Impaired Dysphagia Impressions: Ongoing Evaluation, Suspect Aspiration *Silent aspiration: cannot be R/O at bedside Dysphagia Treatment Plan: Other Recommendations: Other (Continue NGT feedings, NPO, Elevate HOB,mouth care, Chest PT etc, as indicated, to clear secretions. To follow/reassess.) - Recommendations Diet Consistency: NPO Liquids: NPO
[2018-12-08] MEDS ORDERED: ALBUTEROL SO4 0.083% IH SOL 2.5 MG/3 ML VIAL.NEB. NEB PRN (18:55)
[2018-12-08] MEDS: INSULIN (LEVEMIR) 100 UNITS/ML UNITS SQ SCH (21:11)
[2018-12-08] MEDS: ACETAMINOPHEN 325 MG TABLET (FP) PO PRN (22:00)
--- NOTE | 2018-12-08 23:53 | PN ---
Progress Note (short form) - Note Progress Note: Patient seen and examined in icu extubated following commands AFVSS Cor: RSR, No murmurs, No gallops Lungs: Clear to auscultation anteriorly Abd: Soft, Normal bowel sounds, No organomegaly Ext:chronic stasis dermatitis Labs/meds reviewed A/P 63 y/o patient with multiple coorbidites, HTN, DM, PVD, ? COPD, CKD, recently diagnosed myeloma, vertebral fractures on velcade/cytoxan/dexamethasone/zometa. Admitted with severe constipation and hyponatremia. Was on golytely for constipaion Developed acute resp. distress and high BPs evening of 11/25 ? flash pulmonary edema + pneumonia CXR-airspace opacities was diuresed and placed on antibiotics + troponins-- not a candidate for agressive cardiac interventions Now on ceftazidime for UTI and serratia in sputum Abnormal LFTs -- will check u/s. will consult GI Myeloma--on velcade/cytoxan/dex --last dose 11/18 On zometa--11/18 treatment held last week light chains decreasing slowly s/p rt to lspine and left acetabular fx therapy on hold currently Generalized weakness-- will consult neurology
[2018-12-09] MEDS: METOCLOPRAMIDE HCL INJECTION 10 MG/2 ML VIAL IVPUSH SCH ×2 (02:02→09:50)
[2018-12-09] MEDS: CEFTAZIDIME PENTAHYDRATE 1 GM in DEXTROSE 5%-WATER - 50 ML IVPB SCH ×3 (02:02→17:57)
[2018-12-09] MEDS: GABAPENTIN 100 MG CAPSULE (FP) NGT SCH (05:13)
[2018-12-09] MEDS: HEPARIN NA (PORCINE) 5,000 UNITS/ML 1ML VIAL SQ SCH ×3 (05:13→22:56)
[2018-12-09] MEDS: METHADONE HCL 40 MG DISPERSABLE TABLET NGT SCH (05:13)
[2018-12-09] MEDS: ACETAMINOPHEN 325 MG TABLET (FP) PO PRN ×2 (05:25→11:56)
[2018-12-09] MEDS: INSULIN SLIDING SCALE (NOVOLOG) 1 VIAL SQ SCH ×3 (05:26→22:50)
[2018-12-09] MEDS ORDERED: FUROSEMIDE 40 MG/4 ML INJECTABLE VIAL IVPUSH SCH (06:00)
[2018-12-09 06:44] LABS: HEMATOCRIT 30.9 % (35.4-49); HEMOGLOBIN 10.3 GM/dL (11.7-16.9); MCH 29.1 pg (25.7-33.7); MCHC 33.2 g/dl (32.0-35.9); MEAN CELL VOLUME 87.7 fl (80-96); MEAN PLT VOLUME 8.6 fl (7.5-11.1); PLATELET COUNT 246 K/MM3 (134-434); RBC 3.52 M/mm3 (4.00-5.60); RDW 17.5 % (11.9-15.9); WHITE BLOOD COUNT 7.8 K/mm3 (4.0-10.0)
[2018-12-09 08:10] LABS: ALBUMIN 2.2 g/dl (3.4-5.0); ALK PHOS 242 U/L (45-117); ANION GAP 10 MMOL/L (8-16); BILIRUBIN,TOTAL 0.6 mg/dL (0.2-1); BLOOD UREA NITROGEN 57 mg/dL (7-18); CALCIUM 7.9 mg/dL (8.5-10.1); CHLORIDE 112 mmol/L (98-107); CO2 27 mmol/L (21-32); CREATININE 1.9 mg/dL (0.55-1.3); GLUCOSE,RANDOM 175 mg/dL (74-106); MAGNESIUM 2.3 mg/dL (1.8-2.4); PHOSPHOROUS 3.6 mg/dL (2.5-4.9); POTASSIUM 3.4 mmol/L (3.5-5.1); SGOT/AST 91 U/L (15-37); SGPT/ALT 132 U/L (13-61); SODIUM 150 mmol/L (136-145); TOT PROT 6.2 g/dl (6.4-8.2)
[2018-12-09] MEDS ORDERED: PT OWN MED DRAWER 7, Y5N ONE ×3 (09:27→22:55)
[2018-12-09] MEDS: ASPIRIN 81 MG CHEWABLE TABLETS NGT SCH (09:50)
[2018-12-09] MEDS: CALCIUM 500MG/VIT-D 200 UNITS COMBO TABLET (FP) NGT SCH (09:50)
[2018-12-09] MEDS: METOPROLOL TARTRATE 25 MG TABLET (FP) PO SCH ×2 (09:51→22:56)
[2018-12-09] MEDS: PANTOPRAZOLE SODIUM 40 MG VIAL IVPUSH SCH (09:51)
[2018-12-09] MEDS: busPIRone HCL 5 MG TABLET NGT SCH ×2 (09:51→22:56)
[2018-12-09] MEDS: valACYclovir HCL 500 MG TABLET (FP) NGT SCH (09:51)
[2018-12-09] MEDS ORDERED: ALLOPURINOL 300 MG TABLET (FP) NGT SCH (10:00)
[2018-12-09] MEDS: TIOTROPIUM BROMIDE 2.5 MCG (SPIRIVA) RESPIMAT INHALER IH SCH (11:55)
[2018-12-09] MEDS: VANCOMYCIN HCL 1,250 MG in DEXTROSE 5%-WATER - 250 ML IVPB SCH (11:56)
[2018-12-09] MEDS ORDERED: ACETAMINOPHEN 650 MG/20.3 ML ORAL SOLUTION (CUPS) PO PRN (12:28)
--- NOTE | 2018-12-09 12:34 | PN ---
Progress Note, Physician Chief Complaint: patient seen and examined in telemetry floor has temp 100.8 - Current Medication List Current Medications: Active Medications Acetaminophen (Tylenol Oral Solution -) 650 mg PO Q6H PRN PRN Reason: FEVER Albuterol Sulfate (Ventolin 0.083% Nebulizer Soln -) 1 amp NEB Q4H PRN PRN Reason: SHORT OF BREATH/WHEEZING Last Admin: 12/08/18 21:12 Dose: 1 amp Allopurinol (Zyloprim -) 300 mg NGT DAILY [facility] Last Admin: 12/09/18 09:51 Dose: 300 mg Aspirin (Asa -) 81 mg NGT DAILY [facility] Last Admin: 12/09/18 09:50 Dose: 81 mg Atorvastatin Calcium (Lipitor -) 80 mg NGT HS YAKOV Buspirone HCl (Buspar -) 15 mg NGT BID [facility] Last Admin: 12/09/18 09:51 Dose: 15 mg Calcium Carbonate/Cholecalciferol (Os-Kyler 500+D -) 2 tab NGT DAILY [facility] Last Admin: 12/09/18 09:50 Dose: 2 tab Furosemide (Lasix Injection -) 40 mg IVPUSH BIDLASIX ON [facility] Last Admin: 12/09/18 05:13 Dose: 40 mg Gabapentin (Neurontin Oral Liquid -) 100 mg NGT TID [facility] Heparin Sodium (Porcine) (Heparin -) 5,000 unit SQ TID [facility] Last Admin: 12/09/18 05:13 Dose: 5,000 unit Ceftazidime 1 gm/ Dextrose 50 mls @ 100 mls/hr IVPB Q8H-IV YAKOV; Protocol Last Admin: 12/09/18 09:52 Dose: 100 mls/hr Vancomycin HCl 1,250 mg/ (Dextrose) 250 mls @ 250 mls/2 hr IVPB Q24H [facility]; Protocol Last Admin: 12/09/18 11:56 Dose: 250 mls/2 hr Insulin Aspart (Novolog Vial Sliding Scale -) 1 vial SQ TID [facility]; Protocol Last Admin: 12/09/18 05:26 Dose: Not Given Insulin Detemir (Levemir Vial) 20 units SQ HS [facility] Last Admin: 12/08/18 21:11 Dose: Not Given Methadone HCl (Dolophine -) 40 mg NGT DAILY@0600 [facility] Last Admin: 12/09/18 05:13 Dose: 40 mg Metoclopramide HCl (Reglan Injection -) 10 mg IVPUSH Q6H-IV [facility] Last Admin: 12/09/18 09:50 Dose: 10 mg Metoprolol Tartrate (Lopressor -) 25 mg PO BID ON [facility] Last Admin: 12/09/18 09:51 Dose: 25 mg Pantoprazole Sodium (Protonix Iv) 40 mg IVPUSH DAILY [facility] Last Admin: 12/09/18 09:51 Dose: 40 mg Tiotropium [place] (Spiriva Respimat) 2 puff IH DAILY [facility] Last Admin: 12/09/18 11:55 Dose: 2 puff Valacyclovir HCl (Valtrex -) 500 mg NGT DAILY [facility] Last Admin: 12/09/18 09:51 Dose: 500 mg - Objective Vital Signs: Vital Signs Temperature 100.8 F H 12/09/18 10:00 Pulse Rate 109 H 12/09/18 10:00 Respiratory Rate 20 12/09/18 10:00 Blood Pressure 152/72 12/09/18 10:00 O2 Sat by Pulse Oximetry (%) 95 12/08/18 22:00 Constitutional: Yes: Calm HENT: Yes: Other ( ng tube) Cardiovascular: Yes: Regular Rate and Rhythm, S1, S2 Respiratory: Yes: Diminished, On Venti-Mask Gastrointestinal: Yes: Normal Bowel Sounds, Soft Labs: CBC, BMP 12/09/18 06:00 12/09/18 06:00 INR, PTT INR 1.19 (0.83-1.09) H 11/30/18 05:30 Fibrinogen > 500.0 mg/dL (238-498) H 11/25/18 20:00 Problem List - Problems (1) Respiratory failure Assessment/Plan: iv lasix bid for pulm edema extubated on bipap- now on venti mask monitor renal function and potassium positve MRSA in sputum on vancomycin ceftazidime for serratia in sputum Microbiology 12/03/18 11:30 Sputum - Endotrachea Suction/Ventilator Gram Stain - Final 12/03/18 11:30 Sputum - Endotrachea Suction/Ventilator Sputum Culture - Final Serratia Marcescens Code(s): J96.90 - RESPIRATORY FAILURE, UNSP, UNSP W HYPOXIA OR HYPERCAPNIA (2) Vertebral compression fracture Assessment/Plan: radiation oncology and JOSE MANUEL noted to follow up as outpatient Code(s): M48.50XA - COLLAPSED VERTEBRA, NEC, SITE UNSP, INIT (3) Hyponatremia Assessment/Plan: resolve now sodium is 142 is slowly uptrending Code(s): E87.1 - HYPO-OSMOLALITY AND HYPONATREMIA (4) Diabetes Assessment/Plan: levemir [id number] 7.7 Code(s): E11.9 - TYPE 2 DIABETES MELLITUS WITHOUT COMPLICATIONS Qualifiers: Diabetes mellitus type: type 2 (5) Multiple myeloma Assessment/Plan: last treatment was 11/18 Code(s): C90.00 - MULTIPLE MYELOMA NOT HAVING ACHIEVED REMISSION (6) Hypocalcemia Assessment/Plan: now calcium is better calcium tablets Code(s): E83.51 - HYPOCALCEMIA (7) Elevated troponin Assessment/Plan: due to demand ischemia on aspirin and lipitor Code(s): R74.8 - ABNORMAL LEVELS OF OTHER SERUM ENZYMES (8) UTI (urinary tract infection) Assessment/Plan: Microbiology 12/05/18 20:40 Urine - Urine Massey Urine Culture - Final Escherichia Coli 11/28/18 10:40 Sputum - Endotrachea Suction/Ventilator Gram Stain - Final 11/28/18 10:40 Sputum - Endotrachea Suction/Ventilator Sputum Culture - Final Mr S Aureus ceftazidime for UTI and serratia in sputum Code(s): N39.0 - URINARY TRACT INFECTION, SITE NOT SPECIFIED
--- NOTE | 2018-12-09 12:48 | PN ---
Progress Note, Physician History of Present Illness: Pt seen and examined at bedside. He is more awake and interactive today. Family are at bedside and care was discussed with them. - Current Medication List Current Medications: Active Medications Acetaminophen (Tylenol Oral Solution -) 650 mg PO Q6H PRN PRN Reason: FEVER Albuterol Sulfate (Ventolin 0.083% Nebulizer Soln -) 1 amp NEB Q4H PRN PRN Reason: SHORT OF BREATH/WHEEZING Last Admin: 12/08/18 21:12 Dose: 1 amp Allopurinol (Zyloprim -) 300 mg NGT DAILY [facility] Last Admin: 12/09/18 09:51 Dose: 300 mg Aspirin (Asa -) 81 mg NGT DAILY [facility] Last Admin: 12/09/18 09:50 Dose: 81 mg Atorvastatin Calcium (Lipitor -) 80 mg NGT HS YAKOV Buspirone HCl (Buspar -) 15 mg NGT BID [facility] Last Admin: 12/09/18 09:51 Dose: 15 mg Calcium Carbonate/Cholecalciferol (Os-Kyler 500+D -) 2 tab NGT DAILY [facility] Last Admin: 12/09/18 09:50 Dose: 2 tab Furosemide (Lasix Injection -) 40 mg IVPUSH BIDLASIX [facility] Last Admin: 12/09/18 05:13 Dose: 40 mg Gabapentin (Neurontin Oral Liquid -) 100 mg NGT TID YAKOV Heparin Sodium (Porcine) (Heparin -) 5,000 unit SQ TID [facility] Last Admin: 12/09/18 05:13 Dose: 5,000 unit Ceftazidime 1 gm/ Dextrose 50 mls @ 100 mls/hr IVPB Q8H-IV YAKOV; Protocol Last Admin: 12/09/18 09:52 Dose: 100 mls/hr Vancomycin HCl 1,250 mg/ (Dextrose) 250 mls @ 250 mls/2 hr IVPB Q24H [facility]; Protocol Last Admin: 12/09/18 11:56 Dose: 250 mls/2 hr Insulin Aspart (Novolog Vial Sliding Scale -) 1 vial SQ TID [facility]; Protocol Last Admin: 12/09/18 05:26 Dose: Not Given Insulin Detemir (Levemir Vial) 20 units SQ [facility] Last Admin: 12/08/18 21:11 Dose: Not Given Methadone HCl (Dolophine -) 40 mg NGT DAILY@0600 [facility] Last Admin: 12/09/18 05:13 Dose: 40 mg Metoclopramide HCl (Reglan Injection -) 10 mg IVPUSH Q6H-IV [facility] Last Admin: 12/09/18 09:50 Dose: 10 mg Metoprolol Tartrate (Lopressor -) 25 mg PO BID [facility] Last Admin: 12/09/18 09:51 Dose: 25 mg Pantoprazole Sodium (Protonix Iv) 40 mg IVPUSH DAILY [facility] Last Admin: 12/09/18 09:51 Dose: 40 mg Potassium Chloride (Potassium Chloride Oral Liquid) 20 meq PO ONCE ONE Stop: 12/09/18 13:01 Tiotropium [facility] (Spiriva Respimat) 2 puff IH DAILY [facility] Last Admin: 12/09/18 11:55 Dose: 2 puff Valacyclovir HCl (Valtrex -) 500 mg NGT DAILY [facility] Last Admin: 12/09/18 09:51 Dose: 500 mg - Objective Vital Signs: Vital Signs Temperature 100.8 F H 12/09/18 10:00 Pulse Rate 109 H 12/09/18 10:00 Respiratory Rate 20 12/09/18 10:00 Blood Pressure 152/72 12/09/18 10:00 O2 Sat by Pulse Oximetry (%) 95 12/08/18 22:00 Constitutional: Yes: Calm Eyes: Yes: Conjunctiva Clear HENT: Yes: Atraumatic Cardiovascular: Yes: S1, S2 Respiratory: Yes: On Venti-Mask, Rhonchi Gastrointestinal: Yes: Soft, Abdomen, Obese Genitourinary: Yes: Massey Present Musculoskeletal: Yes: Muscle Weakness Edema: No Integumentary: Yes: Venous Stasis Changes Neurological: Yes: Oriented Labs: CBC, BMP 12/09/18 06:00 12/09/18 06:00 INR, PTT INR 1.19 (0.83-1.09) H 11/30/18 05:30 Fibrinogen > 500.0 mg/dL (238-498) H 11/25/18 20:00 - ....Imaging Chest X-ray: Report Reviewed Problem List - Problems (1) CKD (chronic kidney disease) Code(s): N18.9 - CHRONIC KIDNEY DISEASE, UNSPECIFIED (2) Constipation Code(s): K59.00 - CONSTIPATION, UNSPECIFIED Qualifiers: Constipation type: unspecified constipation type Qualified Code(s): K59.00 - Constipation, unspecified (3) Hyponatremia Code(s): E87.1 - HYPO-OSMOLALITY AND HYPONATREMIA Assessment/Plan Current Medications Generic Name Dose Route Start Last Admin Trade Name Freq PRN Reason Stop Dose Admin Acetaminophen 650 mg 12/09/18 12:28 Tylenol Oral Solution - PO Q6H PRN FEVER Albuterol Sulfate 1 amp 12/08/18 18:55 12/08/18 21:12 Ventolin 0.083% Nebulizer Soln - NEB 1 amp Q4H PRN Administration SHORT OF BREATH/WHEEZING Allopurinol 300 mg 12/09/18 10:00 12/09/18 09:51 Zyloprim - NGT 300 mg DAILY YAKOV Administration Aspirin 81 mg 12/09/18 10:00 12/09/18 09:50 Asa - NGT 81 mg DAILY YAKOV Administration Atorvastatin Calcium 80 mg 12/08/18 22:00 Lipitor - NGT HS YAKOV Buspirone HCl 15 mg 12/08/18 22:00 12/09/18 09:51 Buspar - NGT 15 mg BID YAKOV Administration Calcium Carbonate/Cholecalciferol 2 tab 12/09/18 10:00 12/09/18 09:50 Os-Kyler 500+D - NGT 2 tab DAILY YAKOV Administration Furosemide 40 mg 12/09/18 06:00 12/09/18 05:13 Lasix Injection - IVPUSH 40 mg BIDLASIX YAKOV Administration Gabapentin 100 mg 12/09/18 14:00 Neurontin Oral Liquid - NGT TID YAKOV Heparin Sodium (Porcine) 5,000 unit 12/08/18 22:00 12/09/18 05:13 Heparin - SQ 5,000 unit TID YAKOV Administration Ceftazidime 1 gm/ Dextrose 50 mls @ 100 mls/hr 12/09/18 02:00 12/09/18 09:52 IVPB 100 mls/hr Q8H-IV YAKOV Administration Protocol Vancomycin HCl 1,250 mg/ 250 mls @ 250 mls/2 hr 12/09/18 11:15 12/09/18 11:56 Dextrose IVPB 250 mls/2 hr Q24H YAKOV Administration Protocol Insulin Aspart 1 vial 12/08/18 22:00 12/09/18 05:26 Novolog Vial Sliding Scale - SQ Not Given TID [facility] Protocol Insulin Detemir 20 units 12/08/18 22:00 12/08/18 21:11 Levemir Vial SQ Not Given HS YAKOV Methadone HCl 40 mg 12/09/18 06:00 12/09/18 05:13 Dolophine - NGT 40 mg DAILY@0600 YAKOV Administration Metoclopramide HCl 10 mg 12/08/18 21:00 12/09/18 09:50 Reglan Injection - IVPUSH 10 mg Q6H-IV YAKOV Administration Metoprolol Tartrate 25 mg 12/08/18 22:00 12/09/18 09:51 Lopressor - PO 25 mg BID YAKOV Administration Pantoprazole Sodium 40 mg 12/09/18 10:00 12/09/18 09:51 Protonix Iv IVPUSH 40 mg DAILY YAKOV Administration Potassium Chloride 20 meq 12/09/18 13:00 Potassium Chloride Oral Liquid PO 12/09/18 13:01 ONCE ONE Tiotropium [facility] 2 puff 12/09/18 10:00 12/09/18 11:55 Spiriva Respimat IH 2 puff DAILY YAKOV Administration Valacyclovir HCl 500 mg 12/09/18 10:00 12/09/18 09:51 Valtrex - NGT 500 mg DAILY YAKOV Administration Impression 1. hyponatremia 2. CKD 3. nausea and vomiting 4. htn 5. DM 6. 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 multiple myeloma 9. anemia 10. proteinuria 11. hyperkalemia 12. resp failure 13. volume overload 14. hypernatremia Plan - replace potassium - cont free water - change lasix to daily dosing - monitor renal function - he has about a 3 liter water deficit - add free water to tube feeds - monitor sodium - swallow eval Dr Cates
[2018-12-09] MEDS ORDERED: POTASSIUM CHLORIDE ORAL LIQUID 20 MEQ/15 ML PO ONE (13:00)
--- NOTE | 2018-12-09 13:21 | PN ---
GI Progress Note Subjective: Covering for Dr. Up who resumes coverage 12/12. Dr. Graeme rachel 5pm this evening through the weekend COnsult called today, however Dr. Up has been following the patient Asked to evaluate abnormal liver chemistries. Transaminases and ALP have been elevated since 11/22 Abdominal US 12/08 revealed fatty liver with hepatomegaly, normal appearing gallbladder and non dilated biliary tract He is noted to be Hep B core antibody / surface antibody + as well as have Hep C Ab + with 2 negative HCV PCR studies 07/21 and 11/22 Ferritin 11/28: 184 with 11% iron saturation He is on Ceftazadime, acetaminophen, heparin, allopurinol, high dose lipitor, reglan and valtrex, all of which can be hepatotoxic He is receiving Velcade/Dexa/Cytoxan as well as Zometa (last received 11/18) Family bedside Denies abdominal pain - Objective Vital Signs: Vital Signs Temperature 100.8 F H 12/09/18 10:00 Pulse Rate 109 H 12/09/18 10:00 Respiratory Rate 20 12/09/18 10:00 Blood Pressure 152/72 12/09/18 10:00 O2 Sat by Pulse Oximetry (%) 95 12/08/18 22:00 Constitutional: Calm Cardiovascular: Yes: Other (Obscured by patient attempting to talk and upper airway noise) Gastrointestinal Inspection: No: Distention ...Auscultate: Yes: Normoactive Bowel Sounds ...Palpate: Yes: Soft. No: Hepatomegaly, Splenomegaly, Tenderness Neurological: Yes: Alert Labs: CBC, BMP 12/09/18 06:00 12/09/18 06:00 INR, PTT INR 1.19 (0.83-1.09) H 11/30/18 05:30 Fibrinogen > 500.0 mg/dL (238-498) H 11/25/18 20:00 Hepatic Panel Total Bilirubin 0.6 mg/dL (0.2-1) 12/09/18 06:00 AST 91 U/L (15-37) H 12/09/18 06:00 ALT 132 U/L (13-61) H 12/09/18 06:00 Alkaline Phosphatase 242 U/L (45-117) H 12/09/18 06:00 Albumin 2.2 g/dl (3.4-5.0) L 12/09/18 06:00 Problem List - Problems (1) Elevated liver enzymes Assessment/Plan: Asymptomatic. Multiple possible etiologies including sepsis and multiple potential medications as listed in Subjective Consider medication elimination as medically feasible by primary team. I discontinued reglan and tylenol today. Can check baseline HBV quantitative HBV as he is Hep B core Ab / surface antigen + in setting of ongoing chemo Monitor LFTs, including PT INR If emerging cholestatic / obstructive picture, MRCP as feasible Code(s): R74.8 - ABNORMAL LEVELS OF OTHER SERUM ENZYMES
--- NOTE | 2018-12-09 14:14 | PN ---
Progress Note, Physician History of Present Illness: PULMONARY DROWSY,-RESP DISTRESS,ON VM 40% O2. FEBRILE T 100.8 - Current Medication List Current Medications: Active Medications Albuterol Sulfate (Ventolin 0.083% Nebulizer Soln -) 1 amp NEB Q4H PRN PRN Reason: SHORT OF BREATH/WHEEZING Last Admin: 12/08/18 21:12 Dose: 1 amp Allopurinol (Zyloprim -) 300 mg NGT DAILY [facility] Last Admin: 12/09/18 09:51 Dose: 300 mg Aspirin (Asa -) 81 mg NGT DAILY [facility] Last Admin: 12/09/18 09:50 Dose: 81 mg Atorvastatin Calcium (Lipitor -) 80 mg NGT HS [facility] Buspirone HCl (Buspar -) 15 mg NGT BID [facility] Last Admin: 12/09/18 09:51 Dose: 15 mg Calcium Carbonate/Cholecalciferol (Os-Kyler 500+D -) 2 tab NGT DAILY [facility] Last Admin: 12/09/18 09:50 Dose: 2 tab Furosemide (Lasix Injection -) 40 mg IVPUSH DAILY [facility] Gabapentin (Neurontin Oral Liquid -) 100 mg NGT TID [facility] Heparin Sodium (Porcine) (Heparin -) 5,000 unit SQ TID [facility] Last Admin: 12/09/18 05:13 Dose: 5,000 unit Ceftazidime 1 gm/ Dextrose 50 mls @ 100 mls/hr IVPB Q8H-IV [facility]; Protocol Last Admin: 12/09/18 09:52 Dose: 100 mls/hr Vancomycin HCl 1,250 mg/ (Dextrose) 250 mls @ 250 mls/2 hr IVPB Q24H [facility]; Protocol Last Admin: 12/09/18 11:56 Dose: 250 mls/2 hr Insulin Aspart (Novolog Vial Sliding Scale -) 1 vial SQ TID [facility]; Protocol Last Admin: 12/09/18 05:26 Dose: Not Given Insulin Detemir (Levemir Vial) 20 units SQ [facility] Last Admin: 12/08/18 21:11 Dose: Not Given Methadone HCl (Dolophine -) 40 mg NGT DAILY@0600 [facility] Last Admin: 12/09/18 05:13 Dose: 40 mg Metoprolol Tartrate (Lopressor -) 25 mg PO BID [facility] Last Admin: 12/09/18 09:51 Dose: 25 mg Pantoprazole Sodium (Protonix Iv) 40 mg IVPUSH DAILY [facility] Last Admin: 12/09/18 09:51 Dose: 40 mg Tiotropium [place] (Spiriva Respimat) 2 puff IH DAILY [facility] Last Admin: 12/09/18 11:55 Dose: 2 puff Valacyclovir HCl (Valtrex -) 500 mg NGT DAILY [facility] Last Admin: 12/09/18 09:51 Dose: 500 mg - Objective Vital Signs: Vital Signs Temperature 100.8 F H 12/09/18 10:00 Pulse Rate 109 H 12/09/18 10:00 Respiratory Rate 20 12/09/18 10:00 Blood Pressure 152/72 12/09/18 10:00 O2 Sat by Pulse Oximetry (%) 97 12/09/18 14:05 Constitutional: Yes: Well Nourished, Calm Eyes: Yes: WNL HENT: Yes: WNL Neck: Yes: WNL Cardiovascular: Yes: Regular Rate and Rhythm, S1, S2 Respiratory: Yes: Rhonchi (FEW RHONCHI) Gastrointestinal: Yes: Normal Bowel Sounds, Soft Extremities: Yes: WNL Edema: No Labs: CBC, BMP 12/09/18 06:00 12/09/18 06:00 INR, PTT INR 1.19 (0.83-1.09) H 11/30/18 05:30 Fibrinogen > 500.0 mg/dL (238-498) H 11/25/18 20:00 - ....Imaging Chest X-ray: Report Reviewed, Image Reviewed Problem List - Problems (1) Acute hypoxemic respiratory failure Code(s): J96.01 - ACUTE RESPIRATORY FAILURE WITH HYPOXIA (2) Anemia Code(s): D64.9 - ANEMIA, UNSPECIFIED (3) CKD (chronic kidney disease) Code(s): N18.9 - CHRONIC KIDNEY DISEASE, UNSPECIFIED (4) Elevated liver enzymes Code(s): R74.8 - ABNORMAL LEVELS OF OTHER SERUM ENZYMES (5) Elevated troponin Code(s): R74.8 - ABNORMAL LEVELS OF OTHER SERUM ENZYMES (6) Pulmonary congestion Code(s): R09.89 - OTH SYMPTOMS AND SIGNS INVOLVING THE CIRC AND RESP SYSTEMS (7) Respiratory failure Code(s): J96.90 - RESPIRATORY FAILURE, UNSP, UNSP W HYPOXIA OR HYPERCAPNIA Assessment/Plan ASSESSMENT AND PLAN: Acute Hypoxic and Hypercapneic Respiratory Failure improving Acute Pulmonary Edema Acute NSTEMI r/o Pneumonia UTI Acute on Chronic Renal Failure HTN DM COPD Methadone Maintenance - antibiotics per ID - lasix - monitor urine output, creatinine - monitor lytes - ASA - inhaled bronchodilators - aspiration precautions - rehab/PT - DVT/GI prophylaxis DR WAGNER
--- NOTE | 2018-12-09 14:50 | PN ---
Progress Note (short form) - Note Progress Note: Patient seen and examined On 40% mask Respiration does not seem labored Having diarrhea--?antibiotics UTI Fevers -low grade Voice seems stronger, but remains somewhat confused Last Vital Signs Temp Pulse Resp BP Pulse Ox 100.8 F H 109 H 20 152/72 97 12/09/18 10:00 12/09/18 10:00 12/09/18 10:00 12/09/18 10:00 12/09/18 14:05 HEENT: [place], EOM Intact Cor: RSR, No murmurs, No gallops Lungs: diminished breath sounds Abd: Soft, Normal bowel sounds, No organomegaly Ext:No significant edema Skin: No rashes, Integument intact CBC, BMP 12/09/18 06:00 12/09/18 06:00 Current Medications Generic Name Dose Route Start Last Admin Trade Name Freq PRN Reason Stop Dose Admin Albuterol Sulfate 1 amp 12/08/18 18:55 12/08/18 21:12 Ventolin 0.083% Nebulizer Soln - NEB 1 amp Q4H PRN Administration SHORT OF BREATH/WHEEZING Allopurinol 300 mg 12/09/18 10:00 12/09/18 09:51 Zyloprim - NGT 300 mg DAILY YAKOV Administration Aspirin 81 mg 12/09/18 10:00 12/09/18 09:50 Asa - NGT 81 mg DAILY YAKOV Administration Atorvastatin Calcium 80 mg 12/08/18 22:00 Lipitor - NGT HS YAKOV Buspirone HCl 15 mg 12/08/18 22:00 12/09/18 09:51 Buspar - NGT 15 mg BID YAKOV Administration Calcium Carbonate/Cholecalciferol 2 tab 12/09/18 10:00 12/09/18 09:50 Os-Kyler 500+D - NGT 2 tab DAILY YAKOV Administration Furosemide 40 mg 12/10/18 10:00 Lasix Injection - IVPUSH DAILY YAKOV Gabapentin 100 mg 12/09/18 14:00 Neurontin Oral Liquid - NGT TID YAKOV Heparin Sodium (Porcine) 5,000 unit 12/08/18 22:00 12/09/18 05:13 Heparin - SQ 5,000 unit TID YAKOV Administration Ceftazidime 1 gm/ Dextrose 50 mls @ 100 mls/hr 12/09/18 02:00 12/09/18 09:52 IVPB 100 mls/hr Q8H-IV YAKOV Administration Protocol Vancomycin HCl 1,250 mg/ 250 mls @ 250 mls/2 hr 12/09/18 11:15 12/09/18 11:56 Dextrose IVPB 250 mls/2 hr Q24H YAKOV Administration Protocol Insulin Aspart 1 vial 12/08/18 22:00 12/09/18 05:26 Novolog Vial Sliding Scale - SQ Not Given TID YAKOV Protocol Insulin Detemir 20 units 12/08/18 22:00 12/08/18 21:11 Levemir Vial SQ Not Given HS YAKOV Methadone HCl 40 mg 12/09/18 06:00 12/09/18 05:13 Dolophine - NGT 40 mg DAILY@0600 YAKOV Administration Metoprolol Tartrate 25 mg 12/08/18 22:00 12/09/18 09:51 Lopressor - PO 25 mg BID YAKOV Administration Pantoprazole Sodium 40 mg 12/09/18 10:00 12/09/18 09:51 Protonix Iv IVPUSH 40 mg DAILY YAKOV Administration Tiotropium [place] 2 puff 12/09/18 10:00 12/09/18 11:55 Spiriva Respimat IH 2 puff DAILY YAKOV Administration Valacyclovir HCl 500 mg 12/09/18 10:00 12/09/18 09:51 Valtrex - NGT 500 mg DAILY YAKOV Administration Impression: Acute hypoxic and hypercapneic respiratory failure Acute NSTEMI Fluid overload Hypernatrmia/hyperchloremia CKD/DARIO DM Multiple myeloma Diarrhea NG tube feedings Abnormal LFT's PLAN: CORRECTION OF ELECTROLYTE STATUS Antibiotic therapy Culture stool MBS when feasible Abnormal LFT's-- discussed with Dr. Castle-- ? meds , ? infection, doubt flare of hepatitis secondary to chemotherpay
[2018-12-09] MEDS: GABAPENTIN 250 MG/5 ML ORAL SOLUTION, 470 ML BOTTLE NGT SCH ×2 (15:16→22:51)
[2018-12-09] MEDS: IBUPROFEN 100 MG/5 ML UNIT DOSE CUPS PO PRN (15:32)
[2018-12-09 16:22] VITALS: BMI 27.1
--- NOTE | 2018-12-09 16:27 | CON.NEURO ---
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: Peripheral Neuropathy (stocking glove distribution related to DM) Cardio/Vascular: Yes: CHF, HTN, Hyperlipdemia Pulmonary: Yes: Asthma, Other (left chest tube for rib fracture related pneumothorax afte a fall) Gastrointestinal: Yes: Constipation Hepatobiliary: Yes: Hepatitis C (cured several years ago with Dr Bedolla) Renal/: Yes: Renal Inusuff Infectious Disease: Yes: Other (Hepatitis C cured) Psych: Yes: Depression Musculoskeletal: Yes: Chronic low back pain, Other (multiple thoracolumbar vertebral fractures) Endocrine: Yes: Diabetes Mellitus Dermatology: Yes: Other (varicose veins) Additional Medical History: Laser therapy for diabetic retinopathy - Past Surgical History Past Surgical History: Yes: Amputation (5th digit R foot), Tonsillectomy - Alcohol/Substance Use Hx Alcohol Use: Yes (rare glass of wine, drank heavily over 10 years ago) History of Substance Use: reports: None (snorted), Cocaine, Heroin (sorteh) - Smoking History Smoking history: Former smoker Have you smoked in the past 12 months: No If you are a former smoker, when did you quit?: 1996 - Social History Usual Living Arrangement: With Spouse ADL: Independent 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 History of Recent Travel: Yes (to [place] in past 2 weeks ) Home Medications - Allergies Allergies/Adverse Reactions: Allergies Allergy/AdvReac Type Severity Reaction Status Date / Time No Known Allergies Allergy Verified 10/29/18 03:32 - Home Medications Home Medications: Ambulatory Orders Albuterol Sulfate Inhaler - [Ventolin HFA Inhaler -] 2 puff PO QID PRN 06/07/15 Aspirin [Aspirin EC] 81 mg PO DAILY 06/07/15 Enalapril Maleate [Vasotec -] 20 mg PO DAILY 06/07/15 Insulin Glargine,Hum.rec.anlog [Lantus (10mL VIAL) -] 40 unit SQ HS 06/07/15 Salmeterol/Fluticasone [Advair 100Mcg/50Mcg -] 1 puff PO BID 06/07/15 Sertraline HCl 50 mg PO DAILY 06/07/15 metFORMIN HCL [Metformin HCl] 1,000 mg PO BID 06/07/15 Acetaminophen [Tylenol .Regular Strength -] 650 mg PO Q6H PRN #0 tablet Methadone [Dolophine -] 70 mg PO DAILY 01/30/16 Buspirone HCl 15 mg PO BID 07/22/18 Metoprolol Tartrate [Lopressor -] 25 mg PO BID #60 tablet 07/27/18 Nifedipine ER [Procardia XL -] 30 mg PO DAILY #30 tab.er.24 07/27/18 Family Disease History - Family Disease History Family Disease History: CA: Mother (asthma, breast cancer ), Other: Father ( 90 natural causes), Mother, Brother ( alcoholic cirrhosis) Physical Exam-Neuro Vital Signs: Vital Signs Temperature 100.1 F H 12/09/18 13:39 Pulse Rate 93 H 12/09/18 13:39 Respiratory Rate 20 12/09/18 13:39 Blood Pressure 133/76 12/09/18 13:39 O2 Sat by Pulse Oximetry (%) 97 12/09/18 14:05 Labs: CBC, BMP 12/09/18 06:00 12/09/18 06:00 INR, PTT INR 1.19 (0.83-1.09) H 11/30/18 05:30 Fibrinogen > 500.0 mg/dL (238-498) H 11/25/18 20:00 Assessment/Plan cc Generalized weakness HPI 63 year old male history of HTN,HLD,DM,Hep C, PVD, Opioid abuse on methadone , MM started on chemo. Initially he presented to hospital for abdominal distension adn constipation. During coarse of hospitalization he was intubated and was on abx. Patient is trasnferred to floor from ICU. He was seen by neurosurgery and mri of whole spine was done in oct, no surgical lesion identified. Patient was seen by dr leal for mental status change . Patient is feeling weak and no bowel or bladder incontinence. He denies any sensory loss . He did have hitsory of diabetic neuropathy PAST MEDICAL HISTORY: PMH of HTN, HLD, IDDM, Hep C (on Harvoni), PVD/LE ulcers, past opioid use (on methadone), and multiple myeloma (dx last month), Social History: Smoking:ex smoker Alcohol:none Drugs: iv dugs use and hep c Family History: Reviewed in chart Allergies No Known Allergies Allergy (Verified 10/29/18 03:32) HOME MEDICATIONS: Home Medications Medication Instructions Recorded Albuterol Sulfate Inhaler - 2 puff PO QID PRN 06/07/15 [Ventolin HFA Inhaler -] Aspirin [Aspirin EC] 81 mg PO DAILY 06/07/15 Enalapril Maleate [Vasotec -] 20 mg PO DAILY 06/07/15 Insulin Glargine,Hum.rec.anlog 40 unit SQ HS 06/07/15 [Lantus (10mL VIAL) -] Salmeterol/Fluticasone [Advair 1 puff PO BID 06/07/15 100Mcg/50Mcg -] Sertraline HCl 50 mg PO DAILY 06/07/15 metFORMIN HCL [Metformin HCl] 1,000 mg PO BID 06/07/15 Acetaminophen [Tylenol .Regular 650 mg PO Q6H PRN #0 tablet 06/14/15 Strength -] Methadone [Dolophine -] 70 mg PO DAILY 01/30/16 Buspirone HCl 15 mg PO BID 07/22/18 Metoprolol Tartrate [Lopressor -] 25 mg PO BID #60 tablet 07/27/18 Nifedipine ER [Procardia XL -] 30 mg PO DAILY #30 tab.er.24 07/27/18 ROS reviewed in chart NEUROLOGICAL Exmination Alert , speech is slurred and perhaps due to intubatioin he is hypophobic, he told me it is wednesday and he is in hospital, could no tell place or date eomi, pupils reactive, moving all extremity grade 5- generalized, planter flexion and hip flexion is grade 4- upper extremity grade 5- and elbow extension and shoulder flexion is grade 4- there is frozen shoulder reflex are grade 1 generalized sensation is alton;l gait not tested MRI of C/T/L spine reviewe din chart Neurosurgery adn Previous Neurology note appreciated Assessment/Plan Generalized weakness seems to be deconditioning and critical illness neuropathy, Patient also have history of Diabetic neuropathy and bilateral foot drop. There is no evidence of cord compression . Plan: continue PT b12,folat peter, and emg can be obtained - a ct head can also be obtained for possible stroke, clinically less likely Thankign you so much Dov Gaston MD
--- NOTE | 2018-12-09 17:39 | PN ---
Progress Note, SECURITY ESCORT - Note Progress Note: 63 yo male seen as a follow up to swallow eval by SECURITY ESCORT Liborio VELAZCO with recommendations for NPO. Pt presents with weak cough and reduced intelligibility <50% secondary respiratory dysfunction. NGT tube in place. Pt given po trials of puree with total assistance revealed good acceptance, adequate bolus formation and transport. Pharyngeal swallow appears timely. Coughing presents after the swallow suggesting possible aspiration. Recommendations: Continue NPO status at this time. Pt can be re-evaluated for po trials once respiratory status improves Results given verbally to bellows charger assembler and to pcp via chart.
[2018-12-09] MEDS: INSULIN (LEVEMIR) 100 UNITS/ML UNITS SQ SCH (22:56)
[2018-12-10] MEDS ORDERED: PT OWN MED DRAWER 7, Y5N ONE ×3 (00:36→21:24)
[2018-12-10] MEDS: CEFTAZIDIME PENTAHYDRATE 1 GM in DEXTROSE 5%-WATER - 50 ML IVPB SCH ×3 (01:52→18:04)
[2018-12-10] MEDS: GABAPENTIN 250 MG/5 ML ORAL SOLUTION, 470 ML BOTTLE NGT SCH ×3 (05:56→21:44)
[2018-12-10] MEDS: METHADONE HCL 40 MG DISPERSABLE TABLET NGT SCH (05:56)
[2018-12-10] MEDS: HEPARIN NA (PORCINE) 5,000 UNITS/ML 1ML VIAL SQ SCH ×3 (05:57→21:45)
[2018-12-10] MEDS: INSULIN SLIDING SCALE (NOVOLOG) 1 VIAL SQ SCH ×3 (06:00→21:47)
[2018-12-10] MEDS: IBUPROFEN 100 MG/5 ML UNIT DOSE CUPS PO PRN ×2 (06:11→12:48)
[2018-12-10 06:55] LABS: ALBUMIN 2.1 g/dl (3.4-5.0); ALK PHOS 222 U/L (45-117); ANION GAP 8 MMOL/L (8-16); BILIRUBIN,DIRECT 0.2 mg/dL (0.0-0.2); BILIRUBIN,TOTAL 0.5 mg/dL (0.2-1); BLOOD UREA NITROGEN 59 mg/dL (7-18); CALCIUM 7.9 mg/dL (8.5-10.1); CHLORIDE 113 mmol/L (98-107); CO2 26 mmol/L (21-32); CREATININE 2.3 mg/dL (0.55-1.3); GLUCOSE,RANDOM 206 mg/dL (74-106); MAGNESIUM 2.2 mg/dL (1.8-2.4); POTASSIUM 3.3 mmol/L (3.5-5.1); SGOT/AST 90 U/L (15-37); SGPT/ALT 112 U/L (13-61); SODIUM 147 mmol/L (136-145); TOT PROT 6.3 g/dl (6.4-8.2)
[2018-12-10 07:04] LABS: INR 1.49 (0.83-1.09); PROTHROMBIN TIME (PATIENT) 17.6 SEC (9.7-13.0)
--- NOTE | 2018-12-10 09:20 | PN ---
Progress Note (short form) - Note Progress Note: RENAL pt seen and examined Last Vital Signs Temp Pulse Resp BP Pulse Ox 99.8 F H 100 H 20 153/96 97 12/10/18 06:00 12/10/18 06:00 12/10/18 06:00 12/10/18 06:00 12/09/18 22:00 appears comfortabe lungs some rhonchi cvs s1s2 rr abd soft ext no edema CBC, BMP 12/09/18 06:00 12/10/18 05:15 Current Medications Generic Name Dose Route Start Last Admin Trade Name Freq PRN Reason Stop Dose Admin Albuterol Sulfate 1 amp 12/08/18 18:55 12/08/18 21:12 Ventolin 0.083% Nebulizer Soln - NEB 1 amp Q4H PRN Administration SHORT OF BREATH/WHEEZING Aspirin 81 mg 12/09/18 10:00 12/09/18 09:50 Asa - NGT 81 mg DAILY YAKOV Administration Atorvastatin Calcium 80 mg 12/08/18 22:00 Lipitor - NGT HS YAKOV Buspirone HCl 15 mg 12/08/18 22:00 12/09/18 22:56 Buspar - NGT 15 mg BID YAKOV Administration Calcium Carbonate/Cholecalciferol 2 tab 12/09/18 10:00 12/09/18 09:50 Os-Kyler 500+D - NGT 2 tab DAILY YAKOV Administration Furosemide 40 mg 12/10/18 10:00 Lasix Injection - IVPUSH DAILY YAKOV Gabapentin 100 mg 12/09/18 14:00 12/10/18 05:56 Neurontin Oral Liquid - NGT 100 mg TID YAKOV Administration Heparin Sodium (Porcine) 5,000 unit 12/08/18 22:00 12/10/18 05:57 Heparin - SQ 5,000 unit TID YAKOV Administration Ceftazidime 1 gm/ Dextrose 50 mls @ 100 mls/hr 12/09/18 02:00 12/10/18 01:52 IVPB 100 mls/hr Q8H-IV YAKOV Administration Protocol Vancomycin HCl 1,250 mg/ 250 mls @ 250 mls/2 hr 12/09/18 11:15 12/09/18 11:56 Dextrose IVPB 250 mls/2 hr Q24H YAKOV Administration Protocol Ibuprofen 200 mg 12/09/18 14:54 12/10/18 06:11 Motrin Oral Suspension - PO 200 mg Q4H PRN Administration FEVER Insulin Aspart 1 vial 12/08/18 22:00 12/10/18 06:00 Novolog Vial Sliding Scale - SQ 4 unit TID YAKOV Administration Protocol Insulin Detemir 20 units 12/08/18 22:00 12/09/18 22:56 Levemir Vial SQ Not Given HS YAKOV Methadone HCl 40 mg 12/09/18 06:00 12/10/18 05:56 Dolophine - NGT 40 mg DAILY@0600 YAKOV Administration Metoprolol Tartrate 25 mg 12/08/18 22:00 12/09/18 22:56 Lopressor - PO 25 mg BID YAKOV Administration Pantoprazole Sodium 40 mg 12/09/18 10:00 12/09/18 09:51 Protonix Iv IVPUSH 40 mg DAILY YAKOV Administration Tiotropium [place] 2 puff 12/09/18 10:00 12/09/18 11:55 Spiriva Respimat IH 2 puff DAILY YAKOV Administration Valacyclovir HCl 500 mg 12/09/18 10:00 12/09/18 09:51 Valtrex - NGT 500 mg DAILY YAKOV Administration Impression 1. hypernatremia 2. CKD 3. nausea and vomiting 4. htn 5. DM 6. 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 multiple myeloma 9. anemia 10. proteinuria 11. hyperkalemia 12. resp failure 13. volume overload Plan -keep free water -replace k -avoid nephrotoxins including nsaids if possible MV
[2018-12-10] MEDS: ASPIRIN 81 MG CHEWABLE TABLETS NGT SCH (10:51)
[2018-12-10] MEDS: valACYclovir HCL 500 MG TABLET (FP) NGT SCH (10:52)
[2018-12-10] MEDS: METOPROLOL TARTRATE 25 MG TABLET (FP) PO SCH ×2 (10:52→21:46)
[2018-12-10] MEDS: FUROSEMIDE 40 MG/4 ML INJECTABLE VIAL IVPUSH SCH (10:52)
[2018-12-10] MEDS: PANTOPRAZOLE SODIUM 40 MG VIAL IVPUSH SCH (10:52)
[2018-12-10] MEDS: CALCIUM 500MG/VIT-D 200 UNITS COMBO TABLET (FP) NGT SCH (10:52)
[2018-12-10] MEDS: TIOTROPIUM BROMIDE 2.5 MCG (SPIRIVA) RESPIMAT INHALER IH SCH (10:53)
[2018-12-10] MEDS: busPIRone HCL 5 MG TABLET NGT SCH ×2 (10:53→21:45)
--- NOTE | 2018-12-10 11:19 | PN ---
Progress Note, Physician - Current Medication List Current Medications: Active Medications Albuterol Sulfate (Ventolin 0.083% Nebulizer Soln -) 1 amp NEB Q4H PRN PRN Reason: SHORT OF BREATH/WHEEZING Last Admin: 12/08/18 21:12 Dose: 1 amp Aspirin (Asa -) 81 mg NGT DAILY [facility] Last Admin: 12/10/18 10:51 Dose: 81 mg Atorvastatin Calcium (Lipitor -) 80 mg NGT HS [facility] Buspirone HCl (Buspar -) 15 mg NGT BID [facility] Last Admin: 12/10/18 10:53 Dose: 15 mg Calcium Carbonate/Cholecalciferol (Os-Kyler 500+D -) 2 tab NGT DAILY [facility] Last Admin: 12/10/18 10:52 Dose: 2 tab Furosemide (Lasix Injection -) 40 mg IVPUSH DAILY [facility] Last Admin: 12/10/18 10:52 Dose: 40 mg Gabapentin (Neurontin Oral Liquid -) 100 mg NGT TID [facility] Last Admin: 12/10/18 05:56 Dose: 100 mg Heparin Sodium (Porcine) (Heparin -) 5,000 unit SQ TID [facility] Last Admin: 12/10/18 05:57 Dose: 5,000 unit Ceftazidime 1 gm/ Dextrose 50 mls @ 100 mls/hr IVPB Q8H-IV YAKOV; Protocol Last Admin: 12/10/18 10:52 Dose: 100 mls/hr Vancomycin HCl 1,250 mg/ (Dextrose) 250 mls @ 250 mls/2 hr IVPB Q24H YAKOV; Protocol Last Admin: 12/09/18 11:56 Dose: 250 mls/2 hr Ibuprofen (Motrin Oral Suspension -) 200 mg PO Q4H PRN PRN Reason: FEVER Last Admin: 12/10/18 06:11 Dose: 200 mg Insulin Aspart (Novolog Vial Sliding Scale -) 1 vial SQ TID [facility]; Protocol Last Admin: 12/10/18 06:00 Dose: 4 unit Insulin Detemir (Levemir Vial) 20 units SQ [facility] Last Admin: 12/09/18 22:56 Dose: Not Given Methadone HCl (Dolophine -) 40 mg NGT DAILY@0600 [facility] Last Admin: 12/10/18 05:56 Dose: 40 mg Metoprolol Tartrate (Lopressor -) 25 mg PO BID [facility] Last Admin: 12/10/18 10:52 Dose: 25 mg Pantoprazole Sodium (Protonix Iv) 40 mg IVPUSH DAILY [facility] Last Admin: 12/10/18 10:52 Dose: 40 mg Tiotropium [place] (Spiriva Respimat) 2 puff IH DAILY [facility] Last Admin: 12/10/18 10:53 Dose: 2 puff Valacyclovir HCl (Valtrex -) 500 mg NGT DAILY [facility] Last Admin: 12/10/18 10:52 Dose: 500 mg - Objective Vital Signs: Vital Signs Temperature 99.8 F H 12/10/18 06:00 Pulse Rate 100 H 12/10/18 06:00 Respiratory Rate 20 12/10/18 06:00 Blood Pressure 153/96 12/10/18 06:00 O2 Sat by Pulse Oximetry (%) 97 12/09/18 22:00 Cardiovascular: Yes: S1, S2 Respiratory: Yes: On Venti-Mask Gastrointestinal: Yes: Normal Bowel Sounds, Soft Labs: CBC, BMP 12/09/18 06:00 12/10/18 05:15 INR, PTT INR 1.49 (0.83-1.09) H 12/10/18 05:15 Fibrinogen > 500.0 mg/dL (238-498) H 11/25/18 20:00 Problem List - Problems (1) Respiratory failure Code(s): J96.90 - RESPIRATORY FAILURE, UNSP, UNSP W HYPOXIA OR HYPERCAPNIA (2) CKD (chronic kidney disease) Code(s): N18.9 - CHRONIC KIDNEY DISEASE, UNSPECIFIED (3) Diabetes Code(s): E11.9 - TYPE 2 DIABETES MELLITUS WITHOUT COMPLICATIONS Qualifiers: Diabetes mellitus type: type 2 (4) Hyponatremia Code(s): E87.1 - HYPO-OSMOLALITY AND HYPONATREMIA (5) Narcotic dependence Code(s): F11.20 - OPIOID DEPENDENCE, UNCOMPLICATED (6) Vertebral compression fracture Code(s): M48.50XA - COLLAPSED VERTEBRA, NEC, SITE UNSP, INIT (7) Edema Code(s): R60.9 - EDEMA, UNSPECIFIED (8) Anemia Code(s): D64.9 - ANEMIA, UNSPECIFIED (9) Elevated troponin Code(s): R74.8 - ABNORMAL LEVELS OF OTHER SERUM ENZYMES (10) Multiple myeloma Code(s): C90.00 - MULTIPLE MYELOMA NOT HAVING ACHIEVED REMISSION (11) Pulmonary congestion Code(s): R09.89 - OTH SYMPTOMS AND SIGNS INVOLVING THE CIRC AND RESP SYSTEMS Assessment/Plan - Problems (1) Respiratory failure Assessment/Plan: iv lasix qd for pulm edema extubated on bipap- now on venti mask monitor renal function and potassium positve MRSA in sputum on vancomycin ceftazidime for serratia in sputum cxr Microbiology 12/03/18 11:30 Sputum - Endotrachea Suction/Ventilator Gram Stain - Final 12/03/18 11:30 Sputum - Endotrachea Suction/Ventilator Sputum Culture - Final Serratia Marcescens Code(s): J96.90 - RESPIRATORY FAILURE, UNSP, UNSP W HYPOXIA OR HYPERCAPNIA (2) Vertebral compression fracture Assessment/Plan: radiation oncology and JOSE MANUEL noted to follow up as outpatient Code(s): M48.50XA - COLLAPSED VERTEBRA, NEC, SITE UNSP, INIT (3) Hyponatremia Assessment/Plan: resolve now sodium is 142 is slowly uptrending Code(s): E87.1 - HYPO-OSMOLALITY AND HYPONATREMIA (4) Diabetes Assessment/Plan: levemir [id number] 7.7 Code(s): E11.9 - TYPE 2 DIABETES MELLITUS WITHOUT COMPLICATIONS Qualifiers: Diabetes mellitus type: type 2 (5) Multiple myeloma Assessment/Plan: last treatment was 11/18 Code(s): C90.00 - MULTIPLE MYELOMA NOT HAVING ACHIEVED REMISSION (6) Hypocalcemia Assessment/Plan: now calcium is better calcium tablets Code(s): E83.51 - HYPOCALCEMIA (7) Elevated troponin Assessment/Plan: due to demand ischemia on aspirin and lipitor Code(s): R74.8 - ABNORMAL LEVELS OF OTHER SERUM ENZYMES (8) UTI (urinary tract infection) Assessment/Plan: Microbiology 12/05/18 20:40 Urine - Urine Massey Urine Culture - Final Escherichia Coli 11/28/18 10:40 Sputum - Endotrachea Suction/Ventilator Gram Stain - Final 11/28/18 10:40 Sputum - Endotrachea Suction/Ventilator Sputum Culture - Final S Aureus ceftazidime for UTI and serratia in sputum Code(s): N39.0 - URINARY TRACT INFECTION, SITE NOT SPECIFIED
[2018-12-10] MEDS ORDERED: POTASSIUM CHLORIDE TABS 20 MEQ TABLET.ER (FP) PO ONE (11:20)
--- NOTE | 2018-12-10 11:39 | PN ---
Progress Note, Physician History of Present Illness: PULMONARY MORE ALERT,LESS COUGH,LESS CONGESTED - Current Medication List Current Medications: Active Medications Albuterol Sulfate (Ventolin 0.083% Nebulizer Soln -) 1 amp NEB Q4H PRN PRN Reason: SHORT OF BREATH/WHEEZING Last Admin: 12/08/18 21:12 Dose: 1 amp Aspirin (Asa -) 81 mg NGT DAILY [facility] Last Admin: 12/10/18 10:51 Dose: 81 mg Atorvastatin Calcium (Lipitor -) 80 mg NGT [facility] Buspirone HCl (Buspar -) 15 mg NGT BID [facility] Last Admin: 12/10/18 10:53 Dose: 15 mg Calcium Carbonate/Cholecalciferol (Os-Kyler 500+D -) 2 tab NGT DAILY [facility] Last Admin: 12/10/18 10:52 Dose: 2 tab Furosemide (Lasix Injection -) 40 mg IVPUSH DAILY [facility] Last Admin: 12/10/18 10:52 Dose: 40 mg Gabapentin (Neurontin Oral Liquid -) 100 mg NGT TID [facility] Last Admin: 12/10/18 05:56 Dose: 100 mg Heparin Sodium (Porcine) (Heparin -) 5,000 unit SQ TID [facility] Last Admin: 12/10/18 05:57 Dose: 5,000 unit Ceftazidime 1 gm/ Dextrose 50 mls @ 100 mls/hr IVPB Q8H-IV [facility]; Protocol Last Admin: 12/10/18 10:52 Dose: 100 mls/hr Vancomycin HCl 1,250 mg/ (Dextrose) 250 mls @ 250 mls/2 hr IVPB Q24H [facility]; Protocol Last Admin: 12/09/18 11:56 Dose: 250 mls/2 hr Ibuprofen (Motrin Oral Suspension -) 200 mg PO Q4H PRN PRN Reason: FEVER Last Admin: 12/10/18 06:11 Dose: 200 mg Insulin Aspart (Novolog Vial Sliding Scale -) 1 vial SQ TID [facility]; Protocol Last Admin: 12/10/18 06:00 Dose: 4 unit Insulin Detemir (Levemir Vial) 20 units SQ [facility] Last Admin: 12/09/18 22:56 Dose: Not Given Methadone HCl (Dolophine -) 40 mg NGT DAILY@0600 [facility] Last Admin: 12/10/18 05:56 Dose: 40 mg Metoprolol Tartrate (Lopressor -) 25 mg PO BID [facility] Last Admin: 12/10/18 10:52 Dose: 25 mg Pantoprazole Sodium (Protonix Iv) 40 mg IVPUSH DAILY [facility] Last Admin: 12/10/18 10:52 Dose: 40 mg Potassium Chloride (K-Dur -) 20 meq PO ONCE ONE Stop: 12/10/18 11:21 Tiotropium [place] (Spiriva Respimat) 2 puff IH DAILY [facility] Last Admin: 12/10/18 10:53 Dose: 2 puff Valacyclovir HCl (Valtrex -) 500 mg NGT DAILY [facility] Last Admin: 12/10/18 10:52 Dose: 500 mg - Objective Vital Signs: Vital Signs Temperature 98.8 F 12/10/18 10:00 Pulse Rate 105 H 12/10/18 10:00 Respiratory Rate 20 12/10/18 10:00 Blood Pressure 159/91 12/10/18 10:00 O2 Sat by Pulse Oximetry (%) 97 12/09/18 22:00 Constitutional: Yes: Well Nourished, Calm Eyes: Yes: WNL HENT: Yes: WNL Neck: Yes: WNL Cardiovascular: Yes: Regular Rate and Rhythm, S1, S2 Respiratory: Yes: Rhonchi (SCATTERED RHONCHI) Gastrointestinal: Yes: Normal Bowel Sounds, Soft Extremities: Yes: WNL Edema: No Labs: CBC, BMP 12/10/18 05:15 INR, PTT INR 1.49 (0.83-1.09) 11/25/18 20:00 Problem List - Problems (1) Acute hypoxemic respiratory failure Code(s): J96.01 - ACUTE RESPIRATORY FAILURE WITH HYPOXIA (2) Anemia Code(s): D64.9 - ANEMIA, UNSPECIFIED (3) CKD (chronic kidney disease) Code(s): N18.9 - CHRONIC KIDNEY DISEASE, UNSPECIFIED (4) Elevated liver enzymes Code(s): R74.8 - ABNORMAL LEVELS OF OTHER SERUM ENZYMES (5) Elevated troponin Code(s): R74.8 - ABNORMAL LEVELS OF OTHER SERUM ENZYMES (6) Pulmonary congestion Code(s): R09.89 - OTH SYMPTOMS AND SIGNS INVOLVING THE CIRC AND RESP SYSTEMS (7) Respiratory failure Code(s): J96.90 - RESPIRATORY FAILURE, UNSP, UNSP W HYPOXIA OR HYPERCAPNIA Assessment/Plan ASSESSMENT AND PLAN: Acute Hypoxic and Hypercapneic Respiratory Failure improving Acute Pulmonary Edema Acute NSTEMI r/o Pneumonia UTI Acute on Chronic Renal Failure HTN DM COPD Methadone Maintenance - antibiotics per ID - lasix - monitor urine output, creatinine - monitor lytes - ASA - inhaled bronchodilators - aspiration precautions - rehab/PT - DVT/GI prophylaxis DR WAGNER
[2018-12-10] MEDS: VANCOMYCIN HCL 1,250 MG in DEXTROSE 5%-WATER - 250 ML IVPB SCH (12:35)
--- NOTE | 2018-12-10 13:25 | PN ---
Progress Note, Physician History of Present Illness: NO ACUTE DISTRESS MILDLY CONFUSED LOW GRADE TEMP WBC WNL REPEAT BC NO GROWTH SPUTUM C/S SERRATIA URINE C/S E COLI - Current Medication List Current Medications: Active Medications Albuterol Sulfate (Ventolin 0.083% Nebulizer Soln -) 1 amp NEB Q4H PRN PRN Reason: SHORT OF BREATH/WHEEZING Last Admin: 12/08/18 21:12 Dose: 1 amp Aspirin (Asa -) 81 mg NGT DAILY [facility] Last Admin: 12/10/18 10:51 Dose: 81 mg Atorvastatin Calcium (Lipitor -) 80 mg NGT HS [facility] Buspirone HCl (Buspar -) 15 mg NGT BID [facility] Last Admin: 12/10/18 10:53 Dose: 15 mg Calcium Carbonate/Cholecalciferol (Os-Kyler 500+D -) 2 tab NGT DAILY [facility] Last Admin: 12/10/18 10:52 Dose: 2 tab Furosemide (Lasix Injection -) 40 mg IVPUSH DAILY [facility] Last Admin: 12/10/18 10:52 Dose: 40 mg Gabapentin (Neurontin Oral Liquid -) 100 mg NGT TID [facility] Last Admin: 12/10/18 05:56 Dose: 100 mg Heparin Sodium (Porcine) (Heparin -) 5,000 unit SQ TID [facility] Last Admin: 12/10/18 05:57 Dose: 5,000 unit Ceftazidime 1 gm/ Dextrose 50 mls @ 100 mls/hr IVPB Q8H-IV [facility]; Protocol Last Admin: 12/10/18 10:52 Dose: 100 mls/hr Vancomycin HCl 1,250 mg/ (Dextrose) 250 mls @ 250 mls/2 hr IVPB Q24H [facility]; Protocol Last Admin: 12/10/18 12:35 Dose: 250 mls/2 hr Ibuprofen (Motrin Oral Suspension -) 200 mg PO Q4H PRN PRN Reason: FEVER Last Admin: 12/10/18 12:48 Dose: 200 mg Insulin Aspart (Novolog Vial Sliding Scale -) 1 vial SQ TID [facility]; Protocol Last Admin: 12/10/18 06:00 Dose: 4 unit Insulin Detemir (Levemir Vial) 20 units SQ [facility] Last Admin: 12/09/18 22:56 Dose: Not Given Methadone HCl (Dolophine -) 40 mg NGT DAILY@0600 [facility] Last Admin: 12/10/18 05:56 Dose: 40 mg Metoprolol Tartrate (Lopressor -) 25 mg PO BID [facility] Last Admin: 12/10/18 10:52 Dose: 25 mg Pantoprazole Sodium (Protonix Iv) 40 mg IVPUSH DAILY [facility] Last Admin: 12/10/18 10:52 Dose: 40 mg Tiotropium [place] (Spiriva Respimat) 2 puff IH DAILY [facility] Last Admin: 12/10/18 10:53 Dose: 2 puff Valacyclovir HCl (Valtrex -) 500 mg NGT DAILY [facility] Last Admin: 12/10/18 10:52 Dose: 500 mg - Objective Vital Signs: Vital Signs Temperature 98.8 F 12/10/18 10:00 Pulse Rate 105 H 12/10/18 10:00 Respiratory Rate 20 12/10/18 10:00 Blood Pressure 159/91 12/10/18 10:00 O2 Sat by Pulse Oximetry (%) 97 12/09/18 22:00 Constitutional: Yes: No Distress Eyes: Yes: Conjunctiva Clear Cardiovascular: Yes: Regular Rate and Rhythm, S1, S2 Respiratory: Yes: Diminished Gastrointestinal: Yes: Normal Bowel Sounds, Soft. No: Tenderness Edema: No Labs: CBC, BMP 12/09/18 06:00 12/10/18 05:15 INR, PTT INR 1.49 (0.83-1.09) H 12/10/18 05:15 Fibrinogen > 500.0 mg/dL (238-498) H 11/25/18 20:00 Assessment/Plan S/P RESPIRATORY FAILURE PULMONARY EDEMA R/O HCAP UTI MYELOMA DM CKD + SPUTUM MRSA CONTINUE VANCOMYCIN / CEFTAZIDIME
--- NOTE | 2018-12-10 19:57 | PN ---
Progress Note, Physician Chief Complaint: Multiple myeloma History of Present Illness: No new events. Afebrile X 24 hours. Denies pain - Current Medication List Current Medications: Active Medications Albuterol Sulfate (Ventolin 0.083% Nebulizer Soln -) 1 amp NEB Q4H PRN PRN Reason: SHORT OF BREATH/WHEEZING Last Admin: 12/08/18 21:12 Dose: 1 amp Aspirin (Asa -) 81 mg NGT DAILY [facility] Last Admin: 12/10/18 10:51 Dose: 81 mg Atorvastatin Calcium (Lipitor -) 80 mg NGT HS [facility] Buspirone HCl (Buspar -) 15 mg NGT BID [facility] Last Admin: 12/10/18 10:53 Dose: 15 mg Calcium Carbonate/Cholecalciferol (Os-Kyler 500+D -) 2 tab NGT DAILY [facility] Last Admin: 12/10/18 10:52 Dose: 2 tab Furosemide (Lasix Injection -) 40 mg IVPUSH DAILY [facility] Last Admin: 12/10/18 10:52 Dose: 40 mg Gabapentin (Neurontin Oral Liquid -) 100 mg NGT TID [facility] Last Admin: 12/10/18 14:04 Dose: 100 mg Heparin Sodium (Porcine) (Heparin -) 5,000 unit SQ TID [facility] Last Admin: 12/10/18 14:37 Dose: 5,000 unit Ceftazidime 1 gm/ Dextrose 50 mls @ 100 mls/hr IVPB Q8H-IV [facility]; Protocol Last Admin: 12/10/18 18:04 Dose: 100 mls/hr Vancomycin HCl 1,250 mg/ (Dextrose) 250 mls @ 250 mls/2 hr IVPB Q24H [facility]; Protocol Last Admin: 12/10/18 12:35 Dose: 250 mls/2 hr Ibuprofen (Motrin Oral Suspension -) 200 mg PO Q4H PRN PRN Reason: FEVER Last Admin: 12/10/18 12:48 Dose: 200 mg Insulin Aspart (Novolog Vial Sliding Scale -) 1 vial SQ TID [facility]; Protocol Last Admin: 12/10/18 13:38 Dose: 4 unit Insulin Detemir (Levemir Vial) 20 units SQ HS [facility] Last Admin: 12/09/18 22:56 Dose: Not Given Methadone HCl (Dolophine -) 40 mg NGT DAILY@0600 [facility] Last Admin: 12/10/18 05:56 Dose: 40 mg Metoprolol Tartrate (Lopressor -) 25 mg PO BID [facility] Last Admin: 12/10/18 10:52 Dose: 25 mg Pantoprazole Sodium (Protonix Iv) 40 mg IVPUSH DAILY [facility] Last Admin: 12/10/18 10:52 Dose: 40 mg Tiotropium [place] (Spiriva Respimat) 2 puff IH DAILY [facility] Last Admin: 12/10/18 10:53 Dose: 2 puff Valacyclovir HCl (Valtrex -) 500 mg NGT DAILY [facility] Last Admin: 12/10/18 10:52 Dose: 500 mg - Objective Vital Signs: Vital Signs Temperature 99.0 F 12/10/18 18:00 Pulse Rate 99 H 12/10/18 18:00 Respiratory Rate 20 12/10/18 18:00 Blood Pressure 158/85 12/10/18 18:00 O2 Sat by Pulse Oximetry (%) 97 12/10/18 13:29 Constitutional: Yes: Anxious Eyes: Yes: Conjunctiva Clear Respiratory: Yes: Regular, CTA Bilaterally Gastrointestinal: Yes: WNL, Soft Edema: No Labs: CBC, BMP 12/09/18 06:00 12/10/18 05:15 INR, PTT INR 1.49 (0.83-1.09) H 12/10/18 05:15 Fibrinogen > 500.0 mg/dL (238-498) H 11/25/18 20:00 Assessment/Plan 63M with HTN, DM, PVD, ? COPD, CKD, recently diagnosed myeloma, with vertebral fractures s/p RT to l-spine and l. acetabular fx, on velcade/cytoxan/ dexamethasone/zometa (last 11/18/18), admitted with severe constipation and hyponatremia. Hospital course c/b acute respiratory failure, in the setting of severe hypertension, requiring intubation. Thought to have flash pulmonary edema vs. ARDS. Now extubated. Generalized weakness thought to be due to deconditioning and neuropathy of critical illness. Elevated liver enzymes of unclear etiology, with slight downward trend today. MM treatment on hold. Will continue to follow
[2018-12-10] MEDS: INSULIN (LEVEMIR) 100 UNITS/ML UNITS SQ SCH (21:47)
[2018-12-10] MEDS ORDERED: OCULAR LUBRICANT OPHTHALMIC OINTMENT 7 GM TUBE OD PRN (22:05)
[2018-12-11] MEDS ORDERED: PT OWN MED DRAWER 7, Y5N ONE ×7 (01:37→22:31)
[2018-12-11] MEDS: CEFTAZIDIME PENTAHYDRATE 1 GM in DEXTROSE 5%-WATER - 50 ML IVPB SCH ×3 (01:42→18:22)
[2018-12-11] MEDS: HEPARIN NA (PORCINE) 5,000 UNITS/ML 1ML VIAL SQ SCH ×3 (06:34→22:43)
[2018-12-11] MEDS: INSULIN SLIDING SCALE (NOVOLOG) 1 VIAL SQ SCH ×3 (06:34→22:44)
[2018-12-11] MEDS: GABAPENTIN 250 MG/5 ML ORAL SOLUTION, 470 ML BOTTLE NGT SCH ×3 (07:08→22:44)
[2018-12-11 07:29] LABS: BASO % 1.1 % (0-2.0); HEMATOCRIT 30.3 % (35.4-49); HEMOGLOBIN 9.9 GM/dL (11.7-16.9); LYMPH % 10.3 % (8-40); MCH 28.3 pg (25.7-33.7); MCHC 32.6 g/dl (32.0-35.9); MEAN CELL VOLUME 86.8 fl (80-96); MEAN PLT VOLUME 9.1 fl (7.5-11.1); MONO % 4.3 % (3.8-10.2); NEUT % 82.3 % (42.8-82.8); PLATELET COUNT 256 K/MM3 (134-434); RBC 3.48 M/mm3 (4.00-5.60); WHITE BLOOD COUNT 8.9 K/mm3 (4.0-10.0)
[2018-12-11 08:22] LABS: ALBUMIN 2.3 g/dl (3.4-5.0); ALK PHOS 204 U/L (45-117); ANION GAP 9 MMOL/L (8-16); BILIRUBIN,TOTAL 0.4 mg/dL (0.2-1); BLOOD UREA NITROGEN 53 mg/dL (7-18); CALCIUM 8.6 mg/dL (8.5-10.1); CHLORIDE 113 mmol/L (98-107); CO2 24 mmol/L (21-32); CREATININE 2.3 mg/dL (0.55-1.3); GLUCOSE,RANDOM 216 mg/dL (74-106); POTASSIUM 3.5 mmol/L (3.5-5.1); SGOT/AST 78 U/L (15-37); SGPT/ALT 98 U/L (13-61); SODIUM 146 mmol/L (136-145); TOT PROT 6.5 g/dl (6.4-8.2)
[2018-12-11] MEDS: METOPROLOL TARTRATE 25 MG TABLET (FP) PO SCH ×2 (09:10→22:44)
[2018-12-11] MEDS: METHADONE HCL 40 MG DISPERSABLE TABLET NGT SCH (09:10)
[2018-12-11] MEDS: ASPIRIN 81 MG CHEWABLE TABLETS NGT SCH (09:10)
[2018-12-11] MEDS: CALCIUM 500MG/VIT-D 200 UNITS COMBO TABLET (FP) NGT SCH (09:10)
[2018-12-11] MEDS: valACYclovir HCL 500 MG TABLET (FP) NGT SCH (09:10)
[2018-12-11] MEDS: FUROSEMIDE 40 MG/4 ML INJECTABLE VIAL IVPUSH SCH (09:11)
[2018-12-11] MEDS: TIOTROPIUM BROMIDE 2.5 MCG (SPIRIVA) RESPIMAT INHALER IH SCH (09:11)
[2018-12-11] MEDS: PANTOPRAZOLE SODIUM 40 MG VIAL IVPUSH SCH (09:11)
[2018-12-11] MEDS: busPIRone HCL 5 MG TABLET NGT SCH ×2 (09:14→22:43)
--- NOTE | 2018-12-11 09:26 | PN ---
Progress Note (short form) - Note Progress Note: RENAL pt seen and examined confused Last Vital Signs Temp Pulse Resp BP Pulse Ox 99.0 F 104 H 20 152/92 97 12/11/18 07:00 12/11/18 07:00 12/11/18 07:00 12/11/18 07:00 12/10/18 20:15 appears comfortabe lungs some rhonchi cvs s1s2 rr abd soft ext no edema neuro confused CBC, BMP 12/11/18 06:10 12/11/18 06:10 Current Medications Generic Name Dose Route Start Last Admin Trade Name Freq PRN Reason Stop Dose Admin Albuterol Sulfate 1 amp 12/08/18 18:55 12/08/18 21:12 Ventolin 0.083% Nebulizer Soln - NEB 1 amp Q4H PRN Administration SHORT OF BREATH/WHEEZING Artificial Tears 1 applic 12/10/18 22:05 12/10/18 22:49 Lacri-Lube Eye Ointment - OD 1 applic HS PRN Administration DRY EYES Aspirin 81 mg 12/09/18 10:00 12/11/18 09:10 Asa - NGT 81 mg DAILY [facility] Administration Atorvastatin Calcium 80 mg 12/08/18 22:00 Lipitor - NGT HS [facility] Buspirone HCl 15 mg 12/08/18 22:00 12/10/18 21:45 Buspar - NGT 15 mg BID [facility] Administration Calcium Carbonate/Cholecalciferol 2 tab 12/09/18 10:00 12/11/18 09:10 Os-Kyler 500+D - NGT 2 tab DAILY [facility] Administration Furosemide 40 mg 12/10/18 10:00 12/11/18 09:11 Lasix Injection - IVPUSH 40 mg DAILY [facility] Administration Gabapentin 100 mg 12/09/18 14:00 12/11/18 07:08 Neurontin Oral Liquid - NGT Not Given TID [facility] Heparin Sodium (Porcine) 5,000 unit 12/08/18 22:00 12/11/18 06:34 Heparin - SQ 5,000 unit TID [facility] Administration Ceftazidime 1 gm/ Dextrose 50 mls @ 100 mls/hr 12/09/18 02:00 12/11/18 01:42 IVPB 100 mls/hr Q8H-IV [facility] Administration Protocol Vancomycin HCl 1,250 mg/ 250 mls @ 250 mls/2 hr 12/09/18 11:15 12/10/18 12:35 Dextrose IVPB 250 mls/2 hr Q24H [facility] Administration Protocol Insulin Aspart 1 vial 12/08/18 22:00 12/11/18 06:34 Novolog Vial Sliding Scale - SQ 4 unit TID [facility] Administration Protocol Insulin Detemir 20 units 12/08/18 22:00 12/10/18 21:47 Levemir Vial SQ Not Given HS [facility] Methadone HCl 40 mg 12/09/18 06:00 12/11/18 09:10 Dolophine - NGT 40 mg DAILY@0600 [facility] Administration Metoprolol Tartrate 25 mg 12/08/18 22:00 12/11/18 09:10 Lopressor - PO 25 mg BID [facility] Administration Pantoprazole Sodium 40 mg 12/09/18 10:00 12/11/18 09:11 Protonix Iv IVPUSH 40 mg DAILY [facility] Administration Tiotropium [place] 2 puff 12/09/18 10:00 12/11/18 09:11 Spiriva Respimat IH 2 puff DAILY [facility] Administration Valacyclovir HCl 500 mg 12/09/18 10:00 12/11/18 09:10 Valtrex - NGT 500 mg DAILY [facility] Administration Impression 1. hypernatremia 2. CKD 3. nausea and vomiting 4. htn 5. DM 6. 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 multiple myeloma 9. anemia 10. proteinuria 11. hyperkalemia 12. resp failure 13. volume overload Plan -keep free water -replace k -avoid nephrotoxins including nsaids if possible [facility]
[2018-12-11] MEDS: VANCOMYCIN HCL 1,250 MG in DEXTROSE 5%-WATER - 250 ML IVPB SCH (11:00)
--- NOTE | 2018-12-11 11:52 | PN ---
Progress Note, Physician - Current Medication List Current Medications: Active Medications Albuterol Sulfate (Ventolin 0.083% Nebulizer Soln -) 1 amp NEB Q4H PRN PRN Reason: SHORT OF BREATH/WHEEZING Last Admin: 12/08/18 21:12 Dose: 1 amp Artificial Tears (Lacri-Lube Eye Ointment -) 1 applic OD HS PRN PRN Reason: DRY EYES Last Admin: 12/10/18 22:49 Dose: 1 applic Aspirin (Asa -) 81 mg NGT DAILY [facility] Last Admin: 12/11/18 09:10 Dose: 81 mg Atorvastatin Calcium (Lipitor -) 80 mg NGT HS [facility] Buspirone HCl (Buspar -) 15 mg NGT BID [facility] Last Admin: 12/11/18 09:14 Dose: 15 mg Calcium Carbonate/Cholecalciferol (Os-Kyler 500+D -) 2 tab NGT DAILY [facility] Last Admin: 12/11/18 09:10 Dose: 2 tab Furosemide (Lasix -) 40 mg PO DAILY [facility] Gabapentin (Neurontin Oral Liquid -) 100 mg NGT TID [facility] Last Admin: 12/11/18 07:08 Dose: Not Given Heparin Sodium (Porcine) (Heparin -) 5,000 unit SQ TID [facility] Last Admin: 12/11/18 06:34 Dose: 5,000 unit Ceftazidime 1 gm/ Dextrose 50 mls @ 100 mls/hr IVPB Q8H-IV [facility]; Protocol Last Admin: 12/11/18 09:19 Dose: 100 mls/hr Vancomycin HCl 1,250 mg/ (Dextrose) 250 mls @ 250 mls/2 hr IVPB Q24H [facility]; Protocol Last Admin: 12/10/18 12:35 Dose: 250 mls/2 hr Insulin Aspart (Novolog Vial Sliding Scale -) 1 vial SQ TID [facility]; Protocol Last Admin: 12/11/18 06:34 Dose: 4 unit Insulin Detemir (Levemir Vial) 20 units SQ [facility] Last Admin: 12/10/18 21:47 Dose: Not Given Methadone HCl (Dolophine -) 40 mg NGT DAILY@0600 [facility] Last Admin: 12/11/18 09:10 Dose: 40 mg Metoprolol Tartrate (Lopressor -) 25 mg PO BID [facility] Last Admin: 12/11/18 09:10 Dose: 25 mg Pantoprazole Sodium (Protonix Packets For Oral Suspension -) 40 mg NGT DAILY [facility] Potassium Chloride (Potassium Chloride Oral Liquid) 10 meq PO BID [facility] Tiotropium [place] (Spiriva Respimat) 2 puff IH DAILY [facility] Last Admin: 12/11/18 09:11 Dose: 2 puff Valacyclovir HCl (Valtrex -) 500 mg NGT DAILY [facility] Last Admin: 12/11/18 09:10 Dose: 500 mg - Objective Vital Signs: Vital Signs Temperature 99.2 F 12/11/18 10:00 Pulse Rate 108 H 12/11/18 10:00 Respiratory Rate 20 12/11/18 10:00 Blood Pressure 156/98 12/11/18 10:00 O2 Sat by Pulse Oximetry (%) 98 12/11/18 10:00 Cardiovascular: Yes: S1, S2 Respiratory: Yes: Regular, CTA Bilaterally Gastrointestinal: Yes: Normal Bowel Sounds, Soft Labs: CBC, BMP 12/11/18 06:10 12/11/18 06:10 INR, PTT INR 1.49 (0.83-1.09) H 12/10/18 05:15 Fibrinogen > 500.0 mg/dL (238-498) H 11/25/18 20:00 Problem List - Problems (1) Respiratory failure Code(s): J96.90 - RESPIRATORY FAILURE, UNSP, UNSP W HYPOXIA OR HYPERCAPNIA (2) CKD (chronic kidney disease) Code(s): N18.9 - CHRONIC KIDNEY DISEASE, UNSPECIFIED (3) Diabetes Code(s): E11.9 - TYPE 2 DIABETES MELLITUS WITHOUT COMPLICATIONS Qualifiers: Diabetes mellitus type: type 2 (4) Hyponatremia Code(s): E87.1 - HYPO-OSMOLALITY AND HYPONATREMIA (5) Narcotic dependence Code(s): F11.20 - OPIOID DEPENDENCE, UNCOMPLICATED (6) Vertebral compression fracture Code(s): M48.50XA - COLLAPSED VERTEBRA, NEC, SITE UNSP, INIT (7) Edema Code(s): R60.9 - EDEMA, UNSPECIFIED (8) Anemia Code(s): D64.9 - ANEMIA, UNSPECIFIED (9) Elevated troponin Code(s): R74.8 - ABNORMAL LEVELS OF OTHER SERUM ENZYMES (10) Multiple myeloma Code(s): C90.00 - MULTIPLE MYELOMA NOT HAVING ACHIEVED REMISSION (11) Pulmonary congestion Code(s): R09.89 - OTH SYMPTOMS AND SIGNS INVOLVING THE CIRC AND RESP SYSTEMS Assessment/Plan - Problems (1) Respiratory failure Assessment/Plan: iv lasix--to po qd for pulm edema extubated on bipap- now on venti mask monitor renal function and potassium positve MRSA in sputum on vancomycin ceftazidime for serratia in sputum cxr Microbiology 12/03/18 11:30 Sputum - Endotrachea Suction/Ventilator Gram Stain - Final 12/03/18 11:30 Sputum - Endotrachea Suction/Ventilator Sputum Culture - Final Serratia Marcescens Code(s): J96.90 - RESPIRATORY FAILURE, UNSP, UNSP W HYPOXIA OR HYPERCAPNIA (2) Vertebral compression fracture Assessment/Plan: radiation oncology and JOSE MANUEL noted to follow up as outpatient Code(s): M48.50XA - COLLAPSED VERTEBRA, NEC, SITE UNSP, INIT (3) Hyponatremia Assessment/Plan: resolve now sodium is 142 is slowly uptrending Code(s): E87.1 - HYPO-OSMOLALITY AND HYPONATREMIA (4) Diabetes Assessment/Plan: levemir [id number] 7.7 Code(s): E11.9 - TYPE 2 DIABETES MELLITUS WITHOUT COMPLICATIONS Qualifiers: Diabetes mellitus type: type 2 (5) Multiple myeloma Assessment/Plan: last treatment was 11/18 Code(s): C90.00 - MULTIPLE MYELOMA NOT HAVING ACHIEVED REMISSION (6) Hypocalcemia Assessment/Plan: now calcium is better calcium tablets Code(s): E83.51 - HYPOCALCEMIA (7) Elevated troponin Assessment/Plan: due to demand ischemia on aspirin and lipitor Code(s): R74.8 - ABNORMAL LEVELS OF OTHER SERUM ENZYMES (8) UTI (urinary tract infection) Assessment/Plan: Microbiology 12/05/18 20:40 Urine - Urine Massey Urine Culture - Final Escherichia Coli 11/28/18 10:40 Sputum - Endotrachea Suction/Ventilator Gram Stain - Final 11/28/18 10:40 Sputum - Endotrachea Suction/Ventilator Sputum Culture - Final S Aureus ceftazidime for UTI and serratia in sputum Code(s): N39.0 - URINARY TRACT INFECTION, SITE NOT SPECIFIED
--- NOTE | 2018-12-11 12:59 | PN ---
Progress Note, Physician History of Present Illness: PULMONARY DROWSY, CONFUSED,-RESP DISTRESS - Current Medication List Current Medications: Active Medications Albuterol Sulfate (Ventolin 0.083% Nebulizer Soln -) 1 amp NEB Q4H PRN PRN Reason: SHORT OF BREATH/WHEEZING Last Admin: 12/08/18 21:12 Dose: 1 amp Artificial Tears (Lacri-Lube Eye Ointment -) 1 applic OD HS PRN PRN Reason: DRY EYES Last Admin: 12/10/18 22:49 Dose: 1 applic Aspirin (Asa -) 81 mg NGT DAILY [facility] Last Admin: 12/11/18 09:10 Dose: 81 mg Atorvastatin Calcium (Lipitor -) 80 mg NGT HS [facility] Buspirone HCl (Buspar -) 15 mg NGT BID [facility] Last Admin: 12/11/18 09:14 Dose: 15 mg Calcium Carbonate/Cholecalciferol (Os-Kyler 500+D -) 2 tab NGT DAILY [facility] Last Admin: 12/11/18 09:10 Dose: 2 tab Furosemide (Lasix -) 40 mg PO DAILY [facility] Gabapentin (Neurontin Oral Liquid -) 100 mg NGT TID [facility] Last Admin: 12/11/18 07:08 Dose: Not Given Heparin Sodium (Porcine) (Heparin -) 5,000 unit SQ TID [facility] Last Admin: 12/11/18 06:34 Dose: 5,000 unit Ceftazidime 1 gm/ Dextrose 50 mls @ 100 mls/hr IVPB Q8H-IV [facility]; Protocol Last Admin: 12/11/18 09:19 Dose: 100 mls/hr Vancomycin HCl 1,250 mg/ (Dextrose) 250 mls @ 250 mls/2 hr IVPB Q24H [facility]; Protocol Last Admin: 12/11/18 11:00 Dose: 250 mls/2 hr Insulin Aspart (Novolog Vial Sliding Scale -) 1 vial SQ TID [facility]; Protocol Last Admin: 12/11/18 06:34 Dose: 4 unit Insulin Detemir (Levemir Vial) 20 units SQ HS [facility] Last Admin: 12/10/18 21:47 Dose: Not Given Methadone HCl (Dolophine -) 40 mg NGT DAILY@0600 [facility] Last Admin: 12/11/18 09:10 Dose: 40 mg Metoprolol Tartrate (Lopressor -) 25 mg PO BID [facility] Last Admin: 12/11/18 09:10 Dose: 25 mg Pantoprazole Sodium (Protonix Packets For Oral Suspension -) 40 mg NGT DAILY [facility] Potassium Chloride (Potassium Chloride Oral Liquid) 10 meq PO BID [facility] Tiotropium [place] (Spiriva Respimat) 2 puff IH DAILY [facility] Last Admin: 12/11/18 09:11 Dose: 2 puff Valacyclovir HCl (Valtrex -) 500 mg NGT DAILY [facility] Last Admin: 12/11/18 09:10 Dose: 500 mg - Objective Vital Signs: Vital Signs Temperature 99.2 F 12/11/18 10:00 Pulse Rate 108 H 12/11/18 10:00 Respiratory Rate 20 12/11/18 10:00 Blood Pressure 156/98 12/11/18 10:00 O2 Sat by Pulse Oximetry (%) 98 12/11/18 10:00 Constitutional: Yes: Well Nourished, Other (DROWSY) Eyes: Yes: WNL HENT: Yes: WNL Neck: Yes: WNL Cardiovascular: Yes: Regular Rate and Rhythm, S1, S2 Respiratory: Yes: Rhonchi (FEW SCATTERED RHONCHI) Gastrointestinal: Yes: Normal Bowel Sounds, Soft Extremities: Yes: WNL Edema: No Labs: CBC, BMP 12/11/18 06:10 12/11/18 06:10 INR, PTT INR 1.49 (0.83-1.09) H 12/10/18 05:15 Fibrinogen > 500.0 mg/dL (238-498) H 11/25/18 20:00 Problem List - Problems (1) Acute hypoxemic respiratory failure Code(s): J96.01 - ACUTE RESPIRATORY FAILURE WITH HYPOXIA (2) Anemia Code(s): D64.9 - ANEMIA, UNSPECIFIED (3) CKD (chronic kidney disease) Code(s): N18.9 - CHRONIC KIDNEY DISEASE, UNSPECIFIED (4) Elevated liver enzymes Code(s): R74.8 - ABNORMAL LEVELS OF OTHER SERUM ENZYMES (5) Elevated troponin Code(s): R74.8 - ABNORMAL LEVELS OF OTHER SERUM ENZYMES (6) Pulmonary congestion Code(s): R09.89 - OTH SYMPTOMS AND SIGNS INVOLVING THE CIRC AND RESP SYSTEMS (7) Respiratory failure Code(s): J96.90 - RESPIRATORY FAILURE, UNSP, UNSP W HYPOXIA OR HYPERCAPNIA Assessment/Plan ASSESSMENT AND PLAN: Acute Hypoxic and Hypercapneic Respiratory Failure improving Acute Pulmonary Edema Acute NSTEMI r/o Pneumonia UTI Acute on Chronic Renal Failure HTN DM COPD Methadone Maintenance MM - antibiotics per ID - lasix - monitor urine output, creatinine - monitor lytes - ASA - inhaled bronchodilators - aspiration precautions - rehab/PT - DVT/GI prophylaxis DR WAGNER
--- NOTE | 2018-12-11 19:15 | PN ---
Progress Note, Physician Chief Complaint: Multiple myeloma History of Present Illness: Per daughter at bedside, has been talking a lot but is still confused. - Current Medication List Current Medications: Active Medications Albuterol Sulfate (Ventolin 0.083% Nebulizer Soln -) 1 amp NEB Q4H PRN PRN Reason: SHORT OF BREATH/WHEEZING Last Admin: 12/08/18 21:12 Dose: 1 amp Artificial Tears (Lacri-Lube Eye Ointment -) 1 applic OD HS PRN PRN Reason: DRY EYES Last Admin: 12/10/18 22:49 Dose: 1 applic Aspirin (Asa -) 81 mg NGT DAILY [facility] Last Admin: 12/11/18 09:10 Dose: 81 mg Atorvastatin Calcium (Lipitor -) 80 mg NGT HS [facility] Buspirone HCl (Buspar -) 15 mg NGT BID [facility] Last Admin: 12/11/18 09:14 Dose: 15 mg Calcium Carbonate/Cholecalciferol (Os-Kyler 500+D -) 2 tab NGT DAILY [facility] Last Admin: 12/11/18 09:10 Dose: 2 tab Furosemide (Lasix -) 40 mg PO DAILY [facility] Gabapentin (Neurontin Oral Liquid -) 100 mg NGT TID [facility] Last Admin: 12/11/18 14:01 Dose: 100 mg Heparin Sodium (Porcine) (Heparin -) 5,000 unit SQ TID [facility] Last Admin: 12/11/18 14:01 Dose: 5,000 unit Ceftazidime 1 gm/ Dextrose 50 mls @ 100 mls/hr IVPB Q8H-IV [facility]; Protocol Last Admin: 12/11/18 18:22 Dose: 100 mls/hr Vancomycin HCl 1,250 mg/ (Dextrose) 250 mls @ 250 mls/2 hr IVPB Q24H [facility]; Protocol Last Admin: 12/11/18 11:00 Dose: 250 mls/2 hr Insulin Aspart (Novolog Vial Sliding Scale -) 1 vial SQ TID [facility]; Protocol Last Admin: 12/11/18 14:01 Dose: 4 unit Insulin Detemir (Levemir Vial) 20 units SQ HS [facility] Last Admin: 12/10/18 21:47 Dose: Not Given Methadone HCl (Dolophine -) 40 mg NGT DAILY@0600 [facility] Last Admin: 12/11/18 09:10 Dose: 40 mg Metoprolol Tartrate (Lopressor -) 25 mg PO BID [facility] Last Admin: 12/11/18 09:10 Dose: 25 mg Pantoprazole Sodium (Protonix Packets For Oral Suspension -) 40 mg NGT DAILY [facility] Potassium Chloride (Potassium Chloride Oral Liquid) 10 meq PO BID [facility] Tiotropium [place] (Spiriva Respimat) 2 puff IH DAILY [facility] Last Admin: 12/11/18 09:11 Dose: 2 puff Valacyclovir HCl (Valtrex -) 500 mg NGT DAILY [facility] Last Admin: 12/11/18 09:10 Dose: 500 mg - Objective Vital Signs: Vital Signs Temperature 99.2 F 12/11/18 13:35 Pulse Rate 77 12/11/18 13:35 Respiratory Rate 18 12/11/18 13:35 Blood Pressure 100/66 12/11/18 13:35 O2 Sat by Pulse Oximetry (%) 98 12/11/18 10:00 Constitutional: Yes: No Distress Eyes: Yes: Conjunctiva Clear Cardiovascular: Yes: Regular Rate and Rhythm Respiratory: Yes: Regular, CTA Bilaterally Gastrointestinal: Yes: Soft Edema: LLE: 1+, RLE: 1+ Labs: CBC, BMP 12/11/18 06:10 12/11/18 06:10 INR, PTT INR 1.49 (0.83-1.09) H 12/10/18 05:15 Fibrinogen > 500.0 mg/dL (238-498) H 11/25/18 20:00 Assessment/Plan 63M with HTN, DM, PVD, ? COPD, CKD, recently diagnosed myeloma, with vertebral fractures s/p RT to l-spine and l. acetabular fx, on velcade/cytoxan/ dexamethasone/zometa (last 11/18/18), admitted with severe constipation and hyponatremia. Hospital course c/b acute respiratory failure, in the setting of severe hypertension, requiring intubation. Thought to have flash pulmonary edema vs. ARDS. Now extubated. Generalized weakness thought to be due to deconditioning and neuropathy of critical illness. Elevated liver enzymes continue to improve. MM treatment on hold. Will continue to follow
[2018-12-11] MEDS: INSULIN (LEVEMIR) 100 UNITS/ML UNITS SQ SCH (22:43)
[2018-12-11] MEDS: POTASSIUM CHLORIDE ORAL LIQUID 20 MEQ/15 ML PO SCH (22:43)
[2018-12-12] MEDS ORDERED: PT OWN MED DRAWER 7, Y5N ONE ×4 (00:55→22:15)
[2018-12-12] MEDS: CEFTAZIDIME PENTAHYDRATE 1 GM in DEXTROSE 5%-WATER - 50 ML IVPB SCH ×3 (01:01→17:13)
[2018-12-12] MEDS: METHADONE HCL 40 MG DISPERSABLE TABLET NGT SCH (05:18)
[2018-12-12] MEDS: GABAPENTIN 250 MG/5 ML ORAL SOLUTION, 470 ML BOTTLE NGT SCH (05:18)
[2018-12-12] MEDS: HEPARIN NA (PORCINE) 5,000 UNITS/ML 1ML VIAL SQ SCH ×3 (05:18→22:30)
[2018-12-12] MEDS: INSULIN SLIDING SCALE (NOVOLOG) 1 VIAL SQ SCH ×3 (05:26→22:31)
[2018-12-12] MEDS ORDERED: FUROSEMIDE 40 MG TABLET (FP) PO SCH (10:00)
[2018-12-12 10:29] LABS: EOS % 2.9 % (0-4.5); HEMATOCRIT 28.7 % (35.4-49); HEMOGLOBIN 9.5 GM/dL (11.7-16.9); LYMPH % 13.5 % (8-40); MCH 28.8 pg (25.7-33.7); MEAN CELL VOLUME 87.4 fl (80-96); MEAN PLT VOLUME 8.2 fl (7.5-11.1); MONO % 6.4 % (3.8-10.2); NEUT % 76.2 % (42.8-82.8); PLATELET COUNT 232 K/MM3 (134-434); RBC 3.29 M/mm3 (4.00-5.60); RDW 16.9 % (11.9-15.9)
[2018-12-12] MEDS: POTASSIUM CHLORIDE ORAL LIQUID 20 MEQ/15 ML PO SCH ×2 (10:42→22:32)
[2018-12-12] MEDS: PANTOPRAZOLE SOD 40 MG SUSPENSION PACKET NGT SCH (10:43)
[2018-12-12] MEDS: valACYclovir HCL 500 MG TABLET (FP) NGT SCH (10:43)
[2018-12-12] MEDS: METOPROLOL TARTRATE 25 MG TABLET (FP) PO SCH ×2 (10:43→22:30)
[2018-12-12] MEDS: ASPIRIN 81 MG CHEWABLE TABLETS NGT SCH (10:43)
[2018-12-12] MEDS: busPIRone HCL 5 MG TABLET NGT SCH ×2 (10:44→22:30)
[2018-12-12] MEDS: TIOTROPIUM BROMIDE 2.5 MCG (SPIRIVA) RESPIMAT INHALER IH SCH (10:46)
--- NOTE | 2018-12-12 12:02 | PN ---
Progress Note, Physician History of Present Illness: PULMONARY MUCH MORE ALERT,CONFUSED,-RESP DISTRESS - Current Medication List Current Medications: Active Medications Albuterol Sulfate (Ventolin 0.083% Nebulizer Soln -) 1 amp NEB Q4H PRN PRN Reason: SHORT OF BREATH/WHEEZING Last Admin: 12/08/18 21:12 Dose: 1 amp Artificial Tears (Lacri-Lube Eye Ointment -) 1 applic OD HS PRN PRN Reason: DRY EYES Last Admin: 12/10/18 22:49 Dose: 1 applic Aspirin (Asa -) 81 mg NGT DAILY [facility] Last Admin: 12/12/18 10:43 Dose: 81 mg Atorvastatin Calcium (Lipitor -) 80 mg NGT HS [facility] Buspirone HCl (Buspar -) 15 mg NGT BID [facility] Last Admin: 12/12/18 10:44 Dose: 15 mg Calcium Carbonate/Cholecalciferol (Os-Kyler 500+D -) 2 tab NGT DAILY [facility] Last Admin: 12/11/18 09:10 Dose: 2 tab Heparin Sodium (Porcine) (Heparin -) 5,000 unit SQ TID [facility] Last Admin: 12/12/18 05:18 Dose: 5,000 unit Ceftazidime 1 gm/ Dextrose 50 mls @ 100 mls/hr IVPB Q8H-IV [facility]; Protocol Last Admin: 12/12/18 10:43 Dose: 100 mls/hr Insulin Aspart (Novolog Vial Sliding Scale -) 1 vial SQ TID [facility]; Protocol Last Admin: 12/12/18 05:26 Dose: Not Given Insulin Detemir (Levemir Vial) 20 units SQ [facility] Last Admin: 12/11/18 22:43 Dose: Not Given Methadone HCl (Dolophine -) 40 mg NGT DAILY@0600 [facility] Last Admin: 12/12/18 05:18 Dose: 40 mg Metoprolol Tartrate (Lopressor -) 25 mg PO BID [facility] Last Admin: 12/12/18 10:43 Dose: 25 mg Pantoprazole Sodium (Protonix Packets For Oral Suspension -) 40 mg NGT DAILY [facility] Last Admin: 12/12/18 10:43 Dose: 40 mg Potassium Chloride (Potassium Chloride Oral Liquid) 10 meq PO BID [facility] Last Admin: 12/12/18 10:42 Dose: 10 meq Tiotropium [place] (Spiriva Respimat) 2 puff IH DAILY [facility] Last Admin: 12/12/18 10:46 Dose: 2 puff Valacyclovir HCl (Valtrex -) 500 mg NGT DAILY [facility] Last Admin: 12/12/18 10:43 Dose: 500 mg - Objective Vital Signs: Vital Signs Temperature 98.3 F 12/12/18 06:59 Pulse Rate 98 H 12/12/18 06:59 Respiratory Rate 18 12/12/18 06:59 Blood Pressure 137/86 12/12/18 06:59 O2 Sat by Pulse Oximetry (%) 95 12/11/18 21:00 Constitutional: Yes: Well Nourished, Calm Eyes: Yes: WNL HENT: Yes: WNL Neck: Yes: WNL Cardiovascular: Yes: Regular Rate and Rhythm, S1, S2 Respiratory: Yes: Diminished Gastrointestinal: Yes: Normal Bowel Sounds, Soft Extremities: Yes: WNL Edema: No Labs: CBC, BMP 12/12/18 10:16 INR, PTT INR 1.49 (0.83-1.09) H 12/10/18 05:15 Fibrinogen > 500.0 mg/dL (238-498) H 11/25/18 20:00 Problem List - Problems (1) Acute hypoxemic respiratory failure Code(s): J96.01 - ACUTE RESPIRATORY FAILURE WITH HYPOXIA (2) Anemia Code(s): D64.9 - ANEMIA, UNSPECIFIED (3) CKD (chronic kidney disease) Code(s): N18.9 - CHRONIC KIDNEY DISEASE, UNSPECIFIED (4) Elevated liver enzymes Code(s): R74.8 - ABNORMAL LEVELS OF OTHER SERUM ENZYMES (5) Elevated troponin Code(s): R74.8 - ABNORMAL LEVELS OF OTHER SERUM ENZYMES (6) Pulmonary congestion Code(s): R09.89 - OTH SYMPTOMS AND SIGNS INVOLVING THE CIRC AND RESP SYSTEMS (7) Respiratory failure Code(s): J96.90 - RESPIRATORY FAILURE, UNSP, UNSP W HYPOXIA OR HYPERCAPNIA Assessment/Plan ASSESSMENT AND PLAN: Acute Hypoxic and Hypercapneic Respiratory Failure improving Acute Pulmonary Edema Acute NSTEMI r/o Pneumonia UTI Acute on Chronic Renal Failure HTN DM COPD Methadone Maintenance MM - antibiotics per ID - monitor urine output, creatinine - monitor lytes - ASA - inhaled bronchodilators - aspiration precautions - rehab/PT - DVT/GI prophylaxis DR WAGNER
--- NOTE | 2018-12-12 12:11 | PN ---
Progress Note, Physician Chief Complaint: Acute respiratory failure [place] History of Present Illness: Previous notes and events reviewed awake and alert NAD NGT in place currently on venti mask, denies SOB or chest pain scheduled MBS - Current Medication List Current Medications: Active Medications Albuterol Sulfate (Ventolin 0.083% Nebulizer Soln -) 1 amp NEB Q4H PRN PRN Reason: SHORT OF BREATH/WHEEZING Last Admin: 12/08/18 21:12 Dose: 1 amp Artificial Tears (Lacri-Lube Eye Ointment -) 1 applic OD HS PRN PRN Reason: DRY EYES Last Admin: 12/10/18 22:49 Dose: 1 applic Aspirin (Asa -) 81 mg NGT DAILY [facility] Last Admin: 12/12/18 10:43 Dose: 81 mg Atorvastatin Calcium (Lipitor -) 80 mg NGT HS [facility] Buspirone HCl (Buspar -) 15 mg NGT BID [facility] Last Admin: 12/12/18 10:44 Dose: 15 mg Calcium Carbonate/Cholecalciferol (Os-Kyler 500+D -) 2 tab NGT DAILY [facility] Last Admin: 12/11/18 09:10 Dose: 2 tab Heparin Sodium (Porcine) (Heparin -) 5,000 unit SQ TID [facility] Last Admin: 12/12/18 05:18 Dose: 5,000 unit Ceftazidime 1 gm/ Dextrose 50 mls @ 100 mls/hr IVPB Q8H-IV [facility]; Protocol Last Admin: 12/12/18 10:43 Dose: 100 mls/hr Insulin Aspart (Novolog Vial Sliding Scale -) 1 vial SQ TID [facility]; Protocol Last Admin: 12/12/18 05:26 Dose: Not Given Insulin Detemir (Levemir Vial) 20 units SQ [facility] Last Admin: 12/11/18 22:43 Dose: Not Given Methadone HCl (Dolophine -) 40 mg NGT DAILY@0600 [facility] Last Admin: 12/12/18 05:18 Dose: 40 mg Metoprolol Tartrate (Lopressor -) 25 mg PO BID [facility] Last Admin: 12/12/18 10:43 Dose: 25 mg Pantoprazole Sodium (Protonix Packets For Oral Suspension -) 40 mg NGT DAILY [facility] Last Admin: 12/12/18 10:43 Dose: 40 mg Potassium Chloride (Potassium Chloride Oral Liquid) 10 meq PO BID [facility] Last Admin: 12/12/18 10:42 Dose: 10 meq Tiotropium [place] (Spiriva Respimat) 2 puff IH DAILY [facility] Last Admin: 12/12/18 10:46 Dose: 2 puff Valacyclovir HCl (Valtrex -) 500 mg NGT DAILY [facility] Last Admin: 12/12/18 10:43 Dose: 500 mg - Objective Vital Signs: Vital Signs Temperature 98.3 F 12/12/18 06:59 Pulse Rate 98 H 12/12/18 06:59 Respiratory Rate 18 12/12/18 06:59 Blood Pressure 137/86 12/12/18 06:59 O2 Sat by Pulse Oximetry (%) 95 12/11/18 21:00 Constitutional: Yes: No Distress, Calm Eyes: Yes: Conjunctiva Clear HENT: Yes: Atraumatic Cardiovascular: Yes: Regular Rate and Rhythm Respiratory: Yes: Diminished, On Venti-Mask Gastrointestinal: Yes: Normal Bowel Sounds, Soft ...Rectal Exam: Yes: Other (rectal tube) Genitourinary: Yes: Massey Present, Other Musculoskeletal: Yes: Muscle Weakness Extremities: Yes: WNL Edema: No Wound/Incision: Yes: Open to air Neurological: Yes: Alert, Pre-Existing Deficit Psychiatric: Yes: Alert Labs: CBC, BMP 12/12/18 10:16 INR, PTT INR 1.49 (0.83-1.09) H 12/10/18 05:15 Fibrinogen > 500.0 mg/dL (238-498) H 11/25/18 20:00 Problem List - Problems (1) CKD (chronic kidney disease) Assessment/Plan: -renal on board -BUN/Cr 53/2.3 -will continue to monitor trend Code(s): N18.9 - CHRONIC KIDNEY DISEASE, UNSPECIFIED (2) Diabetes Assessment/Plan: -BGM ACHS -HgA1c 7.7% -ISS Code(s): E11.9 - TYPE 2 DIABETES MELLITUS WITHOUT COMPLICATIONS Qualifiers: Diabetes mellitus type: type 2 (3) Elevated troponin Assessment/Plan: -trop 15.20 -will monitor trend -cardiology on board -ECHO EF 45-50% Code(s): R74.8 - ABNORMAL LEVELS OF OTHER SERUM ENZYMES (4) Respiratory failure Assessment/Plan: -maintaining O2 sat on venti mask -maintain SpO2 >90% -pulm on board -bronchodilator -IV methylprednisone -IV ABT Code(s): J96.90 - RESPIRATORY FAILURE, UNSP, UNSP W HYPOXIA OR HYPERCAPNIA (5) Hyponatremia Assessment/Plan: -resolved Code(s): E87.1 - HYPO-OSMOLALITY AND HYPONATREMIA (6) Multiple myeloma Assessment/Plan: -heme on board Code(s): C90.00 - MULTIPLE MYELOMA NOT HAVING ACHIEVED REMISSION (7) OB + stool Assessment/Plan: -GI on board -continue pantoprazole Code(s): R19.5 - OTHER FECAL ABNORMALITIES Assessment/Plan see problem list dvt ppx
--- NOTE | 2018-12-12 12:19 | PN ---
Progress Note, Physician History of Present Illness: Pt seen and examined at bedside. He is more more awake and interactive but he remains confused. - Current Medication List Current Medications: Active Medications Albuterol Sulfate (Ventolin 0.083% Nebulizer Soln -) 1 amp NEB Q4H PRN PRN Reason: SHORT OF BREATH/WHEEZING Last Admin: 12/08/18 21:12 Dose: 1 amp Artificial Tears (Lacri-Lube Eye Ointment -) 1 applic OD HS PRN PRN Reason: DRY EYES Last Admin: 12/10/18 22:49 Dose: 1 applic Aspirin (Asa -) 81 mg NGT DAILY [facility] Last Admin: 12/12/18 10:43 Dose: 81 mg Atorvastatin Calcium (Lipitor -) 80 mg NGT HS [facility] Buspirone HCl (Buspar -) 15 mg NGT BID [facility] Last Admin: 12/12/18 10:44 Dose: 15 mg Calcium Carbonate/Cholecalciferol (Os-Kyler 500+D -) 2 tab NGT DAILY [facility] Last Admin: 12/11/18 09:10 Dose: 2 tab Heparin Sodium (Porcine) (Heparin -) 5,000 unit SQ TID [facility] Last Admin: 12/12/18 05:18 Dose: 5,000 unit Ceftazidime 1 gm/ Dextrose 50 mls @ 100 mls/hr IVPB Q8H-IV [facility]; Protocol Last Admin: 12/12/18 10:43 Dose: 100 mls/hr Insulin Aspart (Novolog Vial Sliding Scale -) 1 vial SQ TID [facility]; Protocol Last Admin: 12/12/18 05:26 Dose: Not Given Insulin Detemir (Levemir Vial) 20 units SQ HS [facility] Last Admin: 12/11/18 22:43 Dose: Not Given Methadone HCl (Dolophine -) 40 mg NGT DAILY@0600 [facility] Last Admin: 12/12/18 05:18 Dose: 40 mg Metoprolol Tartrate (Lopressor -) 25 mg PO BID [facility] Last Admin: 12/12/18 10:43 Dose: 25 mg Pantoprazole Sodium (Protonix Packets For Oral Suspension -) 40 mg NGT DAILY [facility] Last Admin: 12/12/18 10:43 Dose: 40 mg Potassium Chloride (Potassium Chloride Oral Liquid) 10 meq PO BID [facility] Last Admin: 12/12/18 10:42 Dose: 10 meq Tiotropium [place] (Spiriva Respimat) 2 puff IH DAILY [facility] Last Admin: 12/12/18 10:46 Dose: 2 puff Valacyclovir HCl (Valtrex -) 500 mg NGT DAILY [facility] Last Admin: 12/12/18 10:43 Dose: 500 mg - Objective Vital Signs: Vital Signs Temperature 98.3 F 12/12/18 06:59 Pulse Rate 98 H 12/12/18 06:59 Respiratory Rate 18 12/12/18 06:59 Blood Pressure 137/86 12/12/18 06:59 O2 Sat by Pulse Oximetry (%) 95 12/11/18 21:00 Constitutional: Yes: Calm Eyes: Yes: Conjunctiva Clear HENT: Yes: Atraumatic Cardiovascular: Yes: S1, S2 Respiratory: Yes: On Venti-Mask Gastrointestinal: Yes: Soft Genitourinary: Yes: Massey Present Musculoskeletal: Yes: Muscle Weakness Edema: No Neurological: Yes: Confusion Labs: CBC, BMP 12/12/18 10:16 INR, PTT INR 1.49 (0.83-1.09) H 12/10/18 05:15 Fibrinogen > 500.0 mg/dL (238-498) H 11/25/18 20:00 Problem List - Problems (1) CKD (chronic kidney disease) Code(s): N18.9 - CHRONIC KIDNEY DISEASE, UNSPECIFIED (2) Constipation Code(s): K59.00 - CONSTIPATION, UNSPECIFIED Qualifiers: Qualified Code(s): K59.00 - Constipation, unspecified (3) Hyponatremia Code(s): E87.1 - HYPO-OSMOLALITY AND HYPONATREMIA Assessment/Plan Current Medications Generic Name Dose Route Start Last Admin Trade Name Freq PRN Reason Stop Dose Admin Albuterol Sulfate 1 amp 12/08/18 18:55 12/08/18 21:12 Ventolin 0.083% Nebulizer Soln - NEB 1 amp Q4H PRN Administration SHORT OF BREATH/WHEEZING Artificial Tears 1 applic 12/10/18 22:05 12/10/18 22:49 Lacri-Lube Eye Ointment - OD 1 applic HS PRN Administration DRY EYES Aspirin 81 mg 12/09/18 10:00 12/12/18 10:43 Asa - NGT 81 mg DAILY [facility] Administration Atorvastatin Calcium 80 mg 12/08/18 22:00 Lipitor - NGT HS [facility] Buspirone HCl 15 mg 12/08/18 22:00 12/12/18 10:44 Buspar - NGT 15 mg BID [facility] Administration Calcium Carbonate/Cholecalciferol 2 tab 12/09/18 10:00 12/11/18 09:10 Os-Kyler 500+D - NGT 2 tab DAILY [facility] Administration Heparin Sodium (Porcine) 5,000 unit 12/08/18 22:00 12/12/18 05:18 Heparin - SQ 5,000 unit TID [facility] Administration Ceftazidime 1 gm/ Dextrose 50 mls @ 100 mls/hr 12/09/18 02:00 12/12/18 10:43 IVPB 100 mls/hr Q8H-IV [facility] Administration Protocol Insulin Aspart 1 vial 12/08/18 22:00 12/12/18 05:26 Novolog Vial Sliding Scale - SQ Not Given TID [facility] Protocol Insulin Detemir 20 units 12/08/18 22:00 12/11/18 22:43 Levemir Vial SQ Not Given [facility] Methadone HCl 40 mg 12/09/18 06:00 12/12/18 05:18 Dolophine - NGT 40 mg DAILY@0600 [facility] Administration Metoprolol Tartrate 25 mg 12/08/18 22:00 12/12/18 10:43 Lopressor - PO 25 mg BID [facility] Administration Pantoprazole Sodium 40 mg 12/12/18 10:00 12/12/18 10:43 Protonix Packets For Oral Suspension - NGT 40 mg DAILY [facility] Administration Potassium Chloride 10 meq 12/11/18 22:00 12/12/18 10:42 Potassium Chloride Oral Liquid PO 10 meq BID [facility] Administration Tiotropium [place] 2 puff 12/09/18 10:00 12/12/18 10:46 Spiriva Respimat IH 2 puff DAILY [facility] Administration Valacyclovir HCl 500 mg 12/09/18 10:00 12/12/18 10:43 Valtrex - NGT 500 mg DAILY [facility] Administration Impression 1. hyponatremia 2. CKD 3. nausea and vomiting 4. htn 5. DM 6. 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 multiple myeloma 9. anemia 10. proteinuria 11. hyperkalemia 12. resp failure 13. volume overload 14. hypernatremia Plan - follow up labs from today - lasix on hold for now - start nepro if he fails swallow test - discussed with medical team - monitor sodium Dr Cates
[2018-12-12 12:28] LABS: BLOOD UREA NITROGEN 59 mg/dL (7-18); CREATININE 2.1 mg/dL (0.55-1.3); GLUCOSE,RANDOM 156 mg/dL (74-106); SODIUM 152 mmol/L (136-145)
[2018-12-12 12:29] LABS: ALBUMIN 2.1 g/dl (3.4-5.0); ANION GAP 10 MMOL/L (8-16); BILIRUBIN,TOTAL 0.3 mg/dL (0.2-1); CALCIUM 8.1 mg/dL (8.5-10.1); CHLORIDE 117 mmol/L (98-107); CO2 25 mmol/L (21-32); POTASSIUM 3.6 mmol/L (3.5-5.1)
[2018-12-12 12:30] LABS: ALK PHOS 171 U/L (45-117); SGOT/AST 39 U/L (15-37); SGPT/ALT 68 U/L (13-61)
[2018-12-12] MEDS: CALCIUM 500MG/VIT-D 200 UNITS COMBO TABLET (FP) NGT SCH (12:59)
[2018-12-12 13:19] LABS: HBSAG SCREEN Negative (Negative); HEP B CORE AB, TOT Positive (Negative)
--- NOTE | 2018-12-12 17:34 | PN ---
Progress Note, Physician History of Present Illness: NO ACUTE DISTRESS AWAKE, CONFUSED AFEBRILE WBC WNL SPUTUM C/S SERRATIA URINE C/S E COLI - Current Medication List Current Medications: Active Medications Albuterol Sulfate (Ventolin 0.083% Nebulizer Soln -) 1 amp NEB Q4H PRN PRN Reason: SHORT OF BREATH/WHEEZING Last Admin: 12/08/18 21:12 Dose: 1 amp Artificial Tears (Lacri-Lube Eye Ointment -) 1 applic OD HS PRN PRN Reason: DRY EYES Last Admin: 12/10/18 22:49 Dose: 1 applic Aspirin (Asa -) 81 mg NGT DAILY [facility] Last Admin: 12/12/18 10:43 Dose: 81 mg Atorvastatin Calcium (Lipitor -) 80 mg NGT HS [facility] Buspirone HCl (Buspar -) 15 mg NGT BID [facility] Last Admin: 12/12/18 10:44 Dose: 15 mg Calcium Carbonate/Cholecalciferol (Os-Kyler 500+D -) 2 tab NGT DAILY [facility] Last Admin: 12/12/18 12:59 Dose: 2 tab Heparin Sodium (Porcine) (Heparin -) 5,000 unit SQ TID [facility] Last Admin: 12/12/18 15:05 Dose: 5,000 unit Ceftazidime 1 gm/ Dextrose 50 mls @ 100 mls/hr IVPB Q8H-IV [facility]; Protocol Last Admin: 12/12/18 17:13 Dose: 100 mls/hr Insulin Aspart (Novolog Vial Sliding Scale -) 1 vial SQ TID [facility]; Protocol Last Admin: 12/12/18 13:02 Dose: Not Given Insulin Detemir (Levemir Vial) 20 units SQ [facility] Last Admin: 12/11/18 22:43 Dose: Not Given Methadone HCl (Dolophine -) 40 mg NGT DAILY@0600 [facility] Last Admin: 12/12/18 05:18 Dose: 40 mg Metoprolol Tartrate (Lopressor -) 25 mg PO BID [facility] Last Admin: 12/12/18 10:43 Dose: 25 mg Pantoprazole Sodium (Protonix Packets For Oral Suspension -) 40 mg NGT DAILY [facility] Last Admin: 12/12/18 10:43 Dose: 40 mg Potassium Chloride (Potassium Chloride Oral Liquid) 10 meq PO BID [facility] Last Admin: 12/12/18 10:42 Dose: 10 meq Tiotropium [place] (Spiriva Respimat) 2 puff IH DAILY [facility] Last Admin: 12/12/18 10:46 Dose: 2 puff Valacyclovir HCl (Valtrex -) 500 mg NGT DAILY [facility] Last Admin: 12/12/18 10:43 Dose: 500 mg - Objective Vital Signs: Vital Signs Temperature 98.6 F 12/12/18 14:00 Pulse Rate 87 12/12/18 14:00 Respiratory Rate 18 12/12/18 14:00 Blood Pressure 146/71 12/12/18 14:00 O2 Sat by Pulse Oximetry (%) 96 12/12/18 09:00 Cardiovascular: Yes: Regular Rate and Rhythm, S1, S2 Respiratory: Yes: CTA Bilaterally Gastrointestinal: Yes: Normal Bowel Sounds, Soft Edema: No Labs: CBC, BMP 12/12/18 10:16 12/12/18 10:16 INR, PTT INR 1.49 (0.83-1.09) H 12/10/18 05:15 Fibrinogen > 500.0 mg/dL (238-498) H 11/25/18 20:00 Assessment/Plan S/P RESPIRATORY FAILURE PULMONARY EDEMA R/O HCAP UTI MYELOMA DM CKD + SPUTUM MRSA CONTINUE CEFTAZIDIME HOLD VANCOMYCIN
--- NOTE | 2018-12-12 19:39 | CONS ---
DATE OF CONSULTATION: 12/12/2018 PHYSICAL MEDICINE REHABILITATION, ELECTRODIAGNOSTIC CONSULTATION REFERRING PHYSICIAN: Dov Gaston M.D. HISTORY OF PRESENT ILLNESS: The patient is a 63-year-old male with an extensive past medical history which includes diabetes, polyneuropathy, asthma, chronic kidney disease, right 5th digit amputation due to peripheral vascular disease, lower extremity chronic ulcerations. I was asked to see the patient in regards to electrodiagnostic consultation. The patient was admitted with abdominal distention, constipation, and has undergone a complicated hospital course which included intubation and IV antibiotics. Patient was able to be taken off the ventilator and is now breathing with a mask. He is being evaluated by speech pathology for possible dysphagia. There is also a question of encephalopathy. The patient underwent a recent CT of the head on December 10 which showed moderate atrophy, acute sinusitis , but no evidence of a focal intracranial lesion or hemorrhage. Blood work has remained fairly stable, last on December 12, WBC 7.0. They had been elevated previously on one occasion but currently normal. Hemoglobin stable 9.5, platelet count stable at 232. Last INR on December 10 was elevated at 1.49, last chemistry done today showed elevated sodium of 152, elevated BUN 59 to creatinine 2.1; however, this has been fairly stable. His AST is elevated at 39, ALT elevated at 68, alkaline phosphatase elevated at 171, albumin low at 2.1. He did have a B12 level on December 09 which was elevated at 1338. Patient again was referred for electrodiagnostic studies of the lower extremities. Per the patient, he has had some numbness and tingling even prior to admission. REVIEW OF PAST MEDICAL AND SURGICAL HISTORY: Also significant for congestive heart failure, hypertension, hyperlipidemia, rib fracture, hepatitis C, chronic low back pain, thoracolumbar vertebral fractures, diabetic retinopathy, peripheral vascular disease with lower extremity ulcerations. SOCIAL HISTORY: Former tobacco user. He has used drugs in the past. He lives with his spouse in an apartment, and apparently is disabled. Last seen by physical therapy today but only for an exercise program, but noted limited endurance. REVIEW OF SYSTEMS: He has no complaints of headache, no lightheadedness, dizziness. No visual field cut, double vision, or change in vision, although he has chronically poor vision. Again, he does have some difficulty chewing, swallowing. Shortness of breath with exertion, numbness in the upper and lower limbs in the past, but no complaints currently. Generalized weakness. No bowel, no bladder change, but he seems to have tubes for both. He is unsure about weight loss or weight gain. He has chronic hyperpigmentation in the lower extremities. PHYSICAL EXAMINATION: GENERAL: Thin man who is difficult to understand at times. He does try to cooperate with examination, but his Ventimask often rides up on his face, and he is unable to correct this due to restraints currently on his wrists. He again does follow commands but his speech is difficult to understand at times. HEENT: No obvious facial weakness. Extraocular muscles appear intact. NECK: Supple. EXTREMITIES: Dysvascular changes but no pitting edema. No calf tenderness. NEUROMUSCULAR: He is awake, alert, oriented to person only. Cranial nerves, again there is some decreased vision but grossly intact 2-12. He has atrophy in the hands in the feet with diminished sensation distally below the knees to pinprick and also in some of his fingertips, weakness, both proximally and distally in the upper and lower limbs and diminished range in the shoulder girdle, absent reflexes. Toes equivocal. He has no gross arthritic change. Results of EMG nerve conduction studies of the left upper limb and bilateral lower limbs, please refer to report for details. OVERALL IMPRESSION: 1. There is evidence of an axonal more than demyelinating sensory motor polyneuropathy consistent with critical illness polyneuropathy. 2. Given the fact that he has a history of diabetes, and there is some slowing with demyelination at certain points, this could be consistent with a concurrent diabetic peripheral neuropathy, especially given his history of paresthesias. 3. There is a left mild carpal tunnel syndrome with a delay of the left median sensory compared to the left radial sensory at the wrist with a peak latency difference of 0.6. 4. Deficit to mobility, activities of daily living. 5. Deconditioning. 6. Dysphagia. 7. Status post intubation. 8. Acute on chronic kidney disease. 9. Anemia. 10. History of asthma. 11. Hepatitis C. 12. History of thoracic and lumbar vertebral fractures and chronic back pain. 13. Diabetic retinopathy. PLAN AND SUGGESTIONS: 1. Neurologic followup. 2. Supportive care. 3. Discussed with relatively good prognosis if critical illness polyneuropathy is causing the vast majority of his symptoms. 4. DVT prophylaxis, patient is on subcutaneous heparin. 5. Skin precautions. Continue heel protectors. Avoid prolonged sacral pressure, turn patient q.2 hours. 6. Bowel regimen, patient currently has per nursing. 7. Patient will probably need short-term rehabilitation in a senior care facility. Thank you for this referral. LEIGHANN FELICIANO M.D. [id number] MTDD
[2018-12-12] MEDS: ATORVASTATIN CA 80 MG TABLET (FP) NGT SCH (22:30)
[2018-12-13] MEDS: INSULIN (LEVEMIR) 100 UNITS/ML UNITS SQ SCH ×2 (01:10→23:18)
[2018-12-13] MEDS ORDERED: PT OWN MED DRAWER 7, Y5N ONE ×4 (01:23→23:09)
[2018-12-13] MEDS: CEFTAZIDIME PENTAHYDRATE 1 GM in DEXTROSE 5%-WATER - 50 ML IVPB SCH ×3 (02:21→18:32)
[2018-12-13] MEDS: INSULIN SLIDING SCALE (NOVOLOG) 1 VIAL SQ SCH ×3 (06:21→23:17)
[2018-12-13] MEDS: HEPARIN NA (PORCINE) 5,000 UNITS/ML 1ML VIAL SQ SCH ×3 (06:21→23:11)
[2018-12-13] MEDS: METHADONE HCL 40 MG DISPERSABLE TABLET NGT SCH (06:21)
[2018-12-13 07:04] LABS: HEMATOCRIT 28.5 % (35.4-49); HEMOGLOBIN 9.4 GM/dL (11.7-16.9); MCH 28.8 pg (25.7-33.7); MCHC 32.9 g/dl (32.0-35.9); MEAN CELL VOLUME 87.7 fl (80-96); MEAN PLT VOLUME 8.8 fl (7.5-11.1); PLATELET COUNT 234 K/MM3 (134-434); RBC 3.25 M/mm3 (4.00-5.60); RDW 16.6 % (11.9-15.9); WHITE BLOOD COUNT 6.8 K/mm3 (4.0-10.0)
[2018-12-13 07:37] LABS: ALBUMIN 2.3 g/dl (3.4-5.0); ALK PHOS 164 U/L (45-117); ANION GAP 8 MMOL/L (8-16); BILIRUBIN,TOTAL 0.4 mg/dL (0.2-1); BLOOD UREA NITROGEN 69 mg/dL (7-18); CALCIUM 8.1 mg/dL (8.5-10.1); CHLORIDE 116 mmol/L (98-107); CO2 25 mmol/L (21-32); CREATININE 2.5 mg/dL (0.55-1.3); GLUCOSE,RANDOM 200 mg/dL (74-106); POTASSIUM 3.6 mmol/L (3.5-5.1); SGOT/AST 55 U/L (15-37); SGPT/ALT 75 U/L (13-61); SODIUM 149 mmol/L (136-145); TOT PROT 6.1 g/dl (6.4-8.2)
--- NOTE | 2018-12-13 09:56 | PN ---
Progress Note, Physician - Current Medication List Current Medications: Active Medications Albuterol Sulfate (Ventolin 0.083% Nebulizer Soln -) 1 amp NEB Q4H PRN PRN Reason: SHORT OF BREATH/WHEEZING Last Admin: 12/08/18 21:12 Dose: 1 amp Artificial Tears (Lacri-Lube Eye Ointment -) 1 applic OD HS PRN PRN Reason: DRY EYES Last Admin: 12/10/18 22:49 Dose: 1 applic Aspirin (Asa -) 81 mg NGT DAILY [facility] Last Admin: 12/12/18 10:43 Dose: 81 mg Atorvastatin Calcium (Lipitor -) 80 mg NGT HS [facility] Last Admin: 12/12/18 22:30 Dose: 80 mg Buspirone HCl (Buspar -) 15 mg NGT BID [facility] Last Admin: 12/12/18 22:30 Dose: 15 mg Calcium Carbonate/Cholecalciferol (Os-Kyler 500+D -) 2 tab NGT DAILY [facility] Last Admin: 12/12/18 12:59 Dose: 2 tab Heparin Sodium (Porcine) (Heparin -) 5,000 unit SQ TID [facility] Last Admin: 12/13/18 06:21 Dose: 5,000 unit Ceftazidime 1 gm/ Dextrose 50 mls @ 100 mls/hr IVPB Q8H-IV [facility]; Protocol Last Admin: 12/13/18 02:21 Dose: 100 mls/hr Insulin Aspart (Novolog Vial Sliding Scale -) 1 vial SQ TID [facility]; Protocol Last Admin: 12/13/18 06:21 Dose: 2 unit Insulin Detemir (Levemir Vial) 20 units SQ [facility] Last Admin: 12/13/18 01:10 Dose: Not Given Methadone HCl (Dolophine -) 40 mg NGT DAILY@0600 [facility] Last Admin: 12/13/18 06:21 Dose: 40 mg Metoprolol Tartrate (Lopressor -) 25 mg PO BID [facility] Last Admin: 12/12/18 22:30 Dose: 25 mg Pantoprazole Sodium (Protonix Packets For Oral Suspension -) 40 mg NGT DAILY [facility] Last Admin: 12/12/18 10:43 Dose: 40 mg Potassium Chloride (Potassium Chloride Oral Liquid) 10 meq PO BID [facility] Last Admin: 12/12/18 22:32 Dose: 7.5 meq Tiotropium [place] (Spiriva Respimat) 2 puff IH DAILY [facility] Last Admin: 12/12/18 10:46 Dose: 2 puff Valacyclovir HCl (Valtrex -) 500 mg NGT DAILY [facility] Last Admin: 12/12/18 10:43 Dose: 500 mg - Objective Vital Signs: Vital Signs Temperature 97.7 F 12/13/18 06:00 Pulse Rate 95 H 12/13/18 06:00 Respiratory Rate 20 12/13/18 06:00 Blood Pressure 133/78 12/13/18 06:00 O2 Sat by Pulse Oximetry (%) 98 12/12/18 22:00 Cardiovascular: Yes: S1, S2 Respiratory: Yes: Rhonchi Gastrointestinal: Yes: Normal Bowel Sounds, Soft Labs: CBC, BMP 12/13/18 06:30 12/13/18 06:30 INR, PTT INR 1.49 (0.83-1.09) H 12/10/18 05:15 Fibrinogen > 500.0 mg/dL (238-498) H 11/25/18 20:00 Problem List - Problems (1) Respiratory failure Code(s): J96.90 - RESPIRATORY FAILURE, UNSP, UNSP W HYPOXIA OR HYPERCAPNIA (2) CKD (chronic kidney disease) Code(s): N18.9 - CHRONIC KIDNEY DISEASE, UNSPECIFIED (3) Diabetes Code(s): E11.9 - TYPE 2 DIABETES MELLITUS WITHOUT COMPLICATIONS Qualifiers: Diabetes mellitus type: type 2 (4) Hyponatremia Code(s): E87.1 - HYPO-OSMOLALITY AND HYPONATREMIA (5) Narcotic dependence Code(s): F11.20 - OPIOID DEPENDENCE, UNCOMPLICATED (6) Vertebral compression fracture Code(s): M48.50XA - COLLAPSED VERTEBRA, NEC, SITE UNSP, INIT (7) Edema Code(s): R60.9 - EDEMA, UNSPECIFIED (8) Anemia Code(s): D64.9 - ANEMIA, UNSPECIFIED (9) Elevated troponin Code(s): R74.8 - ABNORMAL LEVELS OF OTHER SERUM ENZYMES (10) Multiple myeloma Code(s): C90.00 - MULTIPLE MYELOMA NOT HAVING ACHIEVED REMISSION (11) Pulmonary congestion Code(s): R09.89 - OTH SYMPTOMS AND SIGNS INVOLVING THE CIRC AND RESP SYSTEMS Assessment/Plan - Problems (1) Respiratory failure Assessment/Plan: iv lasix--to po qd for pulm edema extubated on bipap- now on venti mask monitor renal function and potassium positve MRSA in sputum vancomycin ON HOLD ceftazidime for serratia in sputum cxr Microbiology 12/03/18 11:30 Sputum - Endotrachea Suction/Ventilator Gram Stain - Final 12/03/18 11:30 Sputum - Endotrachea Suction/Ventilator Sputum Culture - Final Serratia Marcescens Code(s): J96.90 - RESPIRATORY FAILURE, UNSP, UNSP W HYPOXIA OR HYPERCAPNIA (2) Vertebral compression fracture Assessment/Plan: radiation oncology and JOSE MANUEL noted to follow up as outpatient Code(s): M48.50XA - COLLAPSED VERTEBRA, NEC, SITE UNSP, INIT (3) Hyponatremia Assessment/Plan: resolve now sodium is 142 is slowly uptrending Code(s): E87.1 - HYPO-OSMOLALITY AND HYPONATREMIA (4) Diabetes Assessment/Plan: levemir [id number] 7.7 Code(s): E11.9 - TYPE 2 DIABETES MELLITUS WITHOUT COMPLICATIONS Qualifiers: Diabetes mellitus type: type 2 (5) Multiple myeloma Assessment/Plan: last treatment was 11/18 Code(s): C90.00 - MULTIPLE MYELOMA NOT HAVING ACHIEVED REMISSION (6) Hypocalcemia Assessment/Plan: now calcium is better calcium tablets Code(s): E83.51 - HYPOCALCEMIA (7) Elevated troponin Assessment/Plan: due to demand ischemia on aspirin and lipitor Code(s): R74.8 - ABNORMAL LEVELS OF OTHER SERUM ENZYMES (8) UTI (urinary tract infection) Assessment/Plan: Microbiology 12/05/18 20:40 Urine - Urine Massey Urine Culture - Final Escherichia Coli 11/28/18 10:40 Sputum - Endotrachea Suction/Ventilator Gram Stain - Final 11/28/18 10:40 Sputum - Endotrachea Suction/Ventilator Sputum Culture - Final Mr S Aureus ceftazidime for UTI and serratia in sputum Code(s): N39.0 - URINARY TRACT INFECTION, SITE NOT SPECIFIED
[2018-12-13] MEDS: CALCIUM 500MG/VIT-D 200 UNITS COMBO TABLET (FP) NGT SCH (10:29)
[2018-12-13] MEDS: valACYclovir HCL 500 MG TABLET (FP) NGT SCH (10:30)
[2018-12-13] MEDS: METOPROLOL TARTRATE 25 MG TABLET (FP) PO SCH ×2 (10:30→23:12)
[2018-12-13] MEDS: ASPIRIN 81 MG CHEWABLE TABLETS NGT SCH (10:31)
[2018-12-13] MEDS: POTASSIUM CHLORIDE ORAL LIQUID 20 MEQ/15 ML PO SCH ×2 (10:31→23:46)
[2018-12-13] MEDS: busPIRone HCL 5 MG TABLET NGT SCH ×2 (10:31→23:12)
[2018-12-13] MEDS: PANTOPRAZOLE SOD 40 MG SUSPENSION PACKET NGT SCH (10:32)
[2018-12-13] MEDS: TIOTROPIUM BROMIDE 2.5 MCG (SPIRIVA) RESPIMAT INHALER IH SCH (10:53)
--- NOTE | 2018-12-13 13:15 | PN ---
Progress Note (short form) - Note Progress Note: PULMONARY Denies shortness of breath, cough or wheezing. Strength appears to be improving. Vital Signs Period Temp Pulse Resp BP Sys/Andre Pulse Ox Last 24 Hr 97.4 F-98.6 F 85-96 18-20 124-153/71-85 95-98 Gen: NAD at rest Heart: RRR Lung: decreased breath sounds at the bases Abd: soft, nontender Ext: no edema CBC, BMP 12/13/18 06:30 12/13/18 06:30 Active Medications Albuterol Sulfate (Ventolin 0.083% Nebulizer Soln -) 1 amp NEB Q4H PRN PRN Reason: SHORT OF BREATH/WHEEZING Last Admin: 12/08/18 21:12 Dose: 1 amp Artificial Tears (Lacri-Lube Eye Ointment -) 1 applic OD HS PRN PRN Reason: DRY EYES Last Admin: 12/10/18 22:49 Dose: 1 applic Aspirin (Asa -) 81 mg NGT DAILY [facility] Last Admin: 12/13/18 10:31 Dose: 81 mg Atorvastatin Calcium (Lipitor -) 80 mg NGT HS [facility] Last Admin: 12/12/18 22:30 Dose: 80 mg Buspirone HCl (Buspar -) 15 mg NGT BID [facility] Last Admin: 12/13/18 10:31 Dose: 15 mg Calcium Carbonate/Cholecalciferol (Os-Kyler 500+D -) 2 tab NGT DAILY [facility] Last Admin: 12/13/18 10:29 Dose: 2 tab Heparin Sodium (Porcine) (Heparin -) 5,000 unit SQ TID [facility] Last Admin: 12/13/18 06:21 Dose: 5,000 unit Ceftazidime 1 gm/ Dextrose 50 mls @ 100 mls/hr IVPB Q8H-IV [facility]; Protocol Last Admin: 12/13/18 10:45 Dose: 100 mls/hr Insulin Aspart (Novolog Vial Sliding Scale -) 1 vial SQ TID [facility]; Protocol Last Admin: 12/13/18 06:21 Dose: 2 unit Insulin Detemir (Levemir Vial) 20 units SQ HS [facility] Last Admin: 12/13/18 01:10 Dose: Not Given Methadone HCl (Dolophine -) 40 mg NGT DAILY@0600 [facility] Last Admin: 12/13/18 06:21 Dose: 40 mg Metoprolol Tartrate (Lopressor -) 25 mg PO BID [facility] Last Admin: 12/13/18 10:30 Dose: 25 mg Pantoprazole Sodium (Protonix Packets For Oral Suspension -) 40 mg NGT DAILY [facility] Last Admin: 12/13/18 10:32 Dose: 40 mg Potassium Chloride (Potassium Chloride Oral Liquid) 10 meq PO BID [facility] Last Admin: 12/13/18 10:31 Dose: 10 meq Tiotropium [place] (Spiriva Respimat) 2 puff IH DAILY [facility] Last Admin: 12/13/18 10:53 Dose: 2 puff Valacyclovir HCl (Valtrex -) 500 mg NGT DAILY [facility] Last Admin: 12/13/18 10:30 Dose: 500 mg A/P Acute Hypoxic and Hypercapneic Respiratory Failure improving Acute Pulmonary Edema resolving Acute NSTEMI r/o Pneumonia UTI Acute on Chronic Renal Failure HTN DM COPD Methadone Maintenance - continue antibiotics per ID - daily assessment of lasix - monitor urine output, creatinine - ASA - inhaled bronchodilators - aspiration precautions - rehab/PT - DVT/GI prophylaxis
--- NOTE | 2018-12-13 14:41 | PN ---
Progress Note, Physician History of Present Illness: Pt seen and examined at bedside. He is more awake and interactive today. He is not on an oral diet. - Current Medication List Current Medications: Active Medications Albuterol Sulfate (Ventolin 0.083% Nebulizer Soln -) 1 amp NEB Q4H PRN PRN Reason: SHORT OF BREATH/WHEEZING Last Admin: 12/08/18 21:12 Dose: 1 amp Artificial Tears (Lacri-Lube Eye Ointment -) 1 applic OD HS PRN PRN Reason: DRY EYES Last Admin: 12/10/18 22:49 Dose: 1 applic Aspirin (Asa -) 81 mg NGT DAILY [facility] Last Admin: 12/13/18 10:31 Dose: 81 mg Atorvastatin Calcium (Lipitor -) 80 mg NGT HS [facility] Last Admin: 12/12/18 22:30 Dose: 80 mg Buspirone HCl (Buspar -) 15 mg NGT BID [facility] Last Admin: 12/13/18 10:31 Dose: 15 mg Calcium Carbonate/Cholecalciferol (Os-Kyler 500+D -) 2 tab NGT DAILY [facility] Last Admin: 12/13/18 10:29 Dose: 2 tab Heparin Sodium (Porcine) (Heparin -) 5,000 unit SQ TID [facility] Last Admin: 12/13/18 14:08 Dose: 5,000 unit Ceftazidime 1 gm/ Dextrose 50 mls @ 100 mls/hr IVPB Q8H-IV [facility]; Protocol Last Admin: 12/13/18 10:45 Dose: 100 mls/hr Insulin Aspart (Novolog Vial Sliding Scale -) 1 vial SQ TID [facility]; Protocol Last Admin: 12/13/18 14:11 Dose: 8 unit Insulin Detemir (Levemir Vial) 20 units SQ [facility] Last Admin: 12/13/18 01:10 Dose: Not Given Methadone HCl (Dolophine -) 40 mg NGT DAILY@0600 [facility] Last Admin: 12/13/18 06:21 Dose: 40 mg Metoprolol Tartrate (Lopressor -) 25 mg PO BID [facility] Last Admin: 12/13/18 10:30 Dose: 25 mg Pantoprazole Sodium (Protonix Packets For Oral Suspension -) 40 mg NGT DAILY [facility] Last Admin: 12/13/18 10:32 Dose: 40 mg Potassium Chloride (Potassium Chloride Oral Liquid) 10 meq PO BID [facility] Last Admin: 03/12/19 10:31 Dose: 10 meq Tiotropium [place] (Spiriva Respimat) 2 puff IH DAILY [facility] Last Admin: 12/13/18 10:53 Dose: 2 puff Valacyclovir HCl (Valtrex -) 500 mg NGT DAILY [facility] Last Admin: 12/13/18 10:30 Dose: 500 mg - Objective Vital Signs: Vital Signs Temperature 97.8 F 12/13/18 10:00 Pulse Rate 92 H 12/13/18 10:00 Respiratory Rate 20 12/13/18 10:00 Blood Pressure 136/79 12/13/18 10:00 O2 Sat by Pulse Oximetry (%) 95 12/13/18 09:00 Constitutional: Yes: Calm Eyes: Yes: Conjunctiva Clear HENT: Yes: Atraumatic Cardiovascular: Yes: S1, S2 Respiratory: Yes: On Nasal O2 Gastrointestinal: Yes: Soft, Abdomen, Obese Genitourinary: Yes: Massey Present Musculoskeletal: Yes: WNL Edema: No Neurological: Yes: Confusion Labs: CBC, BMP 12/13/18 06:30 12/13/18 06:30 INR, PTT INR 1.49 (0.83-1.09) H 12/10/18 05:15 Fibrinogen > 500.0 mg/dL (238-498) H 11/25/18 20:00 Problem List - Problems (1) CKD (chronic kidney disease) Code(s): N18.9 - CHRONIC KIDNEY DISEASE, UNSPECIFIED (2) Constipation Code(s): K59.00 - CONSTIPATION, UNSPECIFIED Qualifiers: Constipation type: unspecified constipation type Qualified Code(s): K59.00 - Constipation, unspecified (3) Hyponatremia Code(s): E87.1 - HYPO-OSMOLALITY AND HYPONATREMIA Assessment/Plan Current Medications Generic Name Dose Route Start Last Admin Trade Name Freq PRN Reason Stop Dose Admin Albuterol Sulfate 1 amp 12/08/18 18:55 12/08/18 21:12 Ventolin 0.083% Nebulizer Soln - NEB 1 amp Q4H PRN Administration SHORT OF BREATH/WHEEZING Artificial Tears 1 applic 12/10/18 22:05 12/10/18 22:49 Lacri-Lube Eye Ointment - OD 1 applic HS PRN Administration DRY EYES Aspirin 81 mg 12/09/18 10:00 12/13/18 10:31 Asa - NGT 81 mg DAILY [facility] Administration Atorvastatin Calcium 80 mg 12/08/18 22:00 12/12/18 22:30 Lipitor - NGT 80 mg HS [facility] Administration Buspirone HCl 15 mg 12/08/18 22:00 12/13/18 10:31 Buspar - NGT 15 mg BID [facility] Administration Calcium Carbonate/Cholecalciferol 2 tab 12/09/18 10:00 12/13/18 10:29 Os-Kyler 500+D - NGT 2 tab DAILY [facility] Administration Heparin Sodium (Porcine) 5,000 unit 12/08/18 22:00 12/13/18 14:08 Heparin - SQ 5,000 unit TID [facility] Administration Ceftazidime 1 gm/ Dextrose 50 mls @ 100 mls/hr 12/09/18 02:00 12/13/18 10:45 IVPB 100 mls/hr Q8H-IV [facility] Administration Protocol Insulin Aspart 1 vial 12/08/18 22:00 12/13/18 14:11 Novolog Vial Sliding Scale - SQ 8 unit TID [facility] Administration Protocol Insulin Detemir 20 units 12/08/18 22:00 12/13/18 01:10 Levemir Vial SQ Not Given HS [facility] Methadone HCl 40 mg 12/09/18 06:00 12/13/18 06:21 Dolophine - NGT 40 mg DAILY@0600 [facility] Administration Metoprolol Tartrate 25 mg 12/08/18 22:00 12/13/18 10:30 Lopressor - PO 25 mg BID [facility] Administration Pantoprazole Sodium 40 mg 12/12/18 10:00 12/13/18 10:32 Protonix Packets For Oral Suspension - NGT 40 mg DAILY [facility] Administration Potassium Chloride 10 meq 12/11/18 22:00 12/13/18 10:31 Potassium Chloride Oral Liquid PO 10 meq BID [facility] Administration Tiotropium [place] 2 puff 12/09/18 10:00 12/13/18 10:53 Spiriva Respimat IH 2 puff DAILY [facility] Administration Valacyclovir HCl 500 mg 12/09/18 10:00 12/13/18 10:30 Valtrex - NGT 500 mg DAILY [facility] Administration Impression 1. hyponatremia 2. CKD 3. nausea and vomiting 4. htn 5. DM 6. 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 multiple myeloma 9. anemia 10. proteinuria 11. hyperkalemia 12. resp failure 13. volume overload 14. hypernatremia Plan - renal function is worsening - urine sodium and fena are low - will give gentle hydration - repeat labs in am - hold lasix for now - monitor sodium Dr Cates
[2018-12-13] MEDS ORDERED: SODIUM CHLORIDE 0.45% 1,000 ML IV SCH (14:45)
--- NOTE | 2018-12-13 15:08 | PN ---
Progress Note, TOPOGRAPHICAL SURVEYOR - Note Progress Note: Selected Entries 12/12/18 12/12/18 12/12/18 02:00 06:59 10:00 Breakfast Supper Temperature 98.1 F 98.3 F 99.5 F 12/12/18 12/12/18 12/12/18 14:00 18:00 22:00 Breakfast Supper 100% Temperature 98.6 F 97.4 F L 98.3 F 12/13/18 12/13/18 12/13/18 01:26 06:00 10:00 Breakfast Supper Temperature 98.6 F 97.7 F 97.8 F 12/13/18 12/13/18 10:26 14:00 Breakfast 100% Supper Temperature 99 F Laboratory Tests 12/13/18 06:30 WBC 6.8 MBS completed. Dys puree/nectar thick liquid, HOB elevated with chin to nmeutral, 2 effortful swallows per bite, alternately puree/with liquid Supplements b/n meals. Monitor Pulm/Nutritional status.
--- NOTE | 2018-12-13 17:03 | PN ---
Progress Note (short form) - Note Progress Note: Patient seen and examined Confused and rambling Last Vital Signs Temp Pulse Resp BP Pulse Ox 99 F 94 H 20 120/80 95 12/13/18 14:00 12/13/18 14:00 12/13/18 14:00 12/13/18 14:00 12/13/18 09:00 HEENT: [place], EOM Intact Cor: RSR, No murmurs, No gallops Lungs:diminished breath sounds Abd: Soft, Normal bowel sounds, No organomegaly Ext:No significant edema, stasis Skin: No rashes, Integument intact rectal tube with diarrhea sykes catheter CBC, BMP 12/13/18 06:30 12/13/18 06:30 Current Medications Generic Name Dose Route Start Last Admin Trade Name Freq PRN Reason Stop Dose Admin Albuterol Sulfate 1 amp 12/08/18 18:55 12/08/18 21:12 Ventolin 0.083% Nebulizer Soln - NEB 1 amp Q4H PRN Administration SHORT OF BREATH/WHEEZING Artificial Tears 1 applic 12/10/18 22:05 12/10/18 22:49 Lacri-Lube Eye Ointment - OD 1 applic HS PRN Administration DRY EYES Aspirin 81 mg 12/09/18 10:00 12/13/18 10:31 Asa - NGT 81 mg DAILY [facility] Administration Atorvastatin Calcium 80 mg 12/08/18 22:00 12/12/18 22:30 Lipitor - NGT 80 mg HS [facility] Administration Buspirone HCl 15 mg 12/08/18 22:00 12/13/18 10:31 Buspar - NGT 15 mg BID [facility] Administration Calcium Carbonate/Cholecalciferol 2 tab 12/09/18 10:00 12/13/18 10:29 Os-Kyler 500+D - NGT 2 tab DAILY [facility] Administration Heparin Sodium (Porcine) 5,000 unit 12/08/18 22:00 12/13/18 14:08 Heparin - SQ 5,000 unit TID [facility] Administration Ceftazidime 1 gm/ Dextrose 50 mls @ 100 mls/hr 12/09/18 02:00 12/13/18 10:45 IVPB 100 mls/hr Q8H-IV [facility] Administration Protocol Sodium Chloride 1,000 mls @ 42 mls/hr 12/13/18 14:45 12/13/18 15:46 1/2 Normal Saline IV 12/14/18 02:44 42 mls/hr ASDIR [facility] Administration Insulin Aspart 1 vial 12/08/18 22:00 12/13/18 14:11 Novolog Vial Sliding Scale - SQ 8 unit TID [facility] Administration Protocol Insulin Detemir 20 units 12/08/18 22:00 12/13/18 01:10 Levemir Vial SQ Not Given HS [facility] Methadone HCl 40 mg 12/09/18 06:00 12/13/18 06:21 Dolophine - NGT 40 mg DAILY@0600 [facility] Administration Metoprolol Tartrate 25 mg 12/08/18 22:00 12/13/18 10:30 Lopressor - PO 25 mg BID [facility] Administration Pantoprazole Sodium 40 mg 12/12/18 10:00 12/13/18 10:32 Protonix Packets For Oral Suspension - NGT 40 mg DAILY [facility] Administration Potassium Chloride 10 meq 12/11/18 22:00 12/13/18 10:31 Potassium Chloride Oral Liquid PO 10 meq BID [facility] Administration Tiotropium [place] 2 puff 12/09/18 10:00 12/13/18 10:53 Spiriva Respimat IH 2 puff DAILY [facility] Administration Valacyclovir HCl 500 mg 12/09/18 10:00 12/13/18 10:30 Valtrex - NGT 500 mg DAILY [facility] Administration Impression: Acute Hypercapnia, hypoxic respiratory failure UTI Myeloma HBP HPL DM Plan: need for increased hydration with rising BUN , creatinine Lasix being held Antibiotics being continued .
--- NOTE | 2018-12-13 17:33 | PN ---
Progress Note, Physician History of Present Illness: NO ACUTE DISTRESS AWAKE, CONFUSED AFEBRILE WBC WNL SPUTUM C/S SERRATIA URINE C/S E COLI - Current Medication List Current Medications: Active Medications Albuterol Sulfate (Ventolin 0.083% Nebulizer Soln -) 1 amp NEB Q4H PRN PRN Reason: SHORT OF BREATH/WHEEZING Last Admin: 12/08/18 21:12 Dose: 1 amp Artificial Tears (Lacri-Lube Eye Ointment -) 1 applic OD HS PRN PRN Reason: DRY EYES Last Admin: 12/10/18 22:49 Dose: 1 applic Aspirin (Asa -) 81 mg NGT DAILY [facility] Last Admin: 12/13/18 10:31 Dose: 81 mg Atorvastatin Calcium (Lipitor -) 80 mg NGT HS [facility] Last Admin: 12/12/18 22:30 Dose: 80 mg Buspirone HCl (Buspar -) 15 mg NGT BID [facility] Last Admin: 12/13/18 10:31 Dose: 15 mg Calcium Carbonate/Cholecalciferol (Os-Kyler 500+D -) 2 tab NGT DAILY [facility] Last Admin: 12/13/18 10:29 Dose: 2 tab Heparin Sodium (Porcine) (Heparin -) 5,000 unit SQ TID [facility] Last Admin: 12/13/18 14:08 Dose: 5,000 unit Ceftazidime 1 gm/ Dextrose 50 mls @ 100 mls/hr IVPB Q8H-IV [facility]; Protocol Last Admin: 12/13/18 10:45 Dose: 100 mls/hr Sodium Chloride (1/2 Normal Saline) 1,000 mls @ 42 mls/hr IV ASDIR [facility] Stop: 12/14/18 02:44 Last Admin: 12/13/18 15:46 Dose: 42 mls/hr Insulin Aspart (Novolog Vial Sliding Scale -) 1 vial SQ TID [facility]; Protocol Last Admin: 12/13/18 14:11 Dose: 8 unit Insulin Detemir (Levemir Vial) 20 units SQ HS [facility] Last Admin: 12/13/18 01:10 Dose: Not Given Methadone HCl (Dolophine -) 40 mg NGT DAILY@0600 [facility] Last Admin: 12/13/18 06:21 Dose: 40 mg Metoprolol Tartrate (Lopressor -) 25 mg PO BID [facility] Last Admin: 12/13/18 10:30 Dose: 25 mg Pantoprazole Sodium (Protonix Packets For Oral Suspension -) 40 mg NGT DAILY [facility] Last Admin: 12/13/18 10:32 Dose: 40 mg Potassium Chloride (Potassium Chloride Oral Liquid) 10 meq PO BID [facility] Last Admin: 12/13/18 10:31 Dose: 10 meq Tiotropium [place] (Spiriva Respimat) 2 puff IH DAILY [facility] Last Admin: 12/13/18 10:53 Dose: 2 puff Valacyclovir HCl (Valtrex -) 500 mg NGT DAILY [facility] Last Admin: 12/13/18 10:30 Dose: 500 mg - Objective Vital Signs: Vital Signs Temperature 99 F 12/13/18 14:00 Pulse Rate 94 H 12/13/18 14:00 Respiratory Rate 20 12/13/18 14:00 Blood Pressure 120/80 12/13/18 14:00 O2 Sat by Pulse Oximetry (%) 95 12/13/18 09:00 Constitutional: Yes: No Distress Eyes: Yes: Conjunctiva Clear, PERRL Cardiovascular: Yes: Regular Rate and Rhythm, S1, S2 Respiratory: Yes: Diminished Gastrointestinal: Yes: Normal Bowel Sounds, Soft. No: Tenderness Labs: CBC, BMP 12/13/18 06:30 12/13/18 06:30 INR, PTT INR 1.49 (0.83-1.09) H 12/10/18 05:15 Fibrinogen > 500.0 mg/dL (238-498) H 11/25/18 20:00 Assessment/Plan S/P RESPIRATORY FAILURE PULMONARY EDEMA R/O HCAP UTI MYELOMA DM CKD + SPUTUM MRSA CONTINUE CEFTAZIDIME
[2018-12-13] MEDS: ATORVASTATIN CA 80 MG TABLET (FP) NGT SCH (23:11)
[2018-12-14] MEDS ORDERED: PT OWN MED DRAWER 7, Y5N ONE ×6 (01:49→21:47)
[2018-12-14] MEDS: CEFTAZIDIME PENTAHYDRATE 1 GM in DEXTROSE 5%-WATER - 50 ML IVPB SCH ×2 (02:04→10:18)
[2018-12-14] MEDS: METHADONE HCL 40 MG DISPERSABLE TABLET NGT SCH (05:45)
[2018-12-14] MEDS: HEPARIN NA (PORCINE) 5,000 UNITS/ML 1ML VIAL SQ SCH ×3 (05:45→22:08)
[2018-12-14] MEDS: INSULIN SLIDING SCALE (NOVOLOG) 1 VIAL SQ SCH ×4 (06:57→16:23)
--- NOTE | 2018-12-14 10:01 | PN ---
Progress Note, Physician - Current Medication List Current Medications: Active Medications Artificial Tears (Lacri-Lube Eye Ointment -) 1 applic OD HS PRN PRN Reason: DRY EYES Last Admin: 12/10/18 22:49 Dose: 1 applic Aspirin (Asa -) 81 mg NGT DAILY [facility] Last Admin: 12/13/18 10:31 Dose: 81 mg Atorvastatin Calcium (Lipitor -) 80 mg NGT HS [facility] Last Admin: 12/13/18 23:11 Dose: 80 mg Buspirone HCl (Buspar -) 15 mg NGT BID [facility] Last Admin: 12/13/18 23:12 Dose: 15 mg Calcium Carbonate/Cholecalciferol (Os-Kyler 500+D -) 2 tab NGT DAILY [facility] Last Admin: 12/13/18 10:29 Dose: 2 tab Heparin Sodium (Porcine) (Heparin -) 5,000 unit SQ TID [facility] Last Admin: 12/14/18 05:45 Dose: 5,000 unit Ceftazidime 1 gm/ Dextrose 50 mls @ 100 mls/hr IVPB Q8H-IV [facility]; Protocol Last Admin: 12/14/18 02:04 Dose: 100 mls/hr Insulin Aspart (Novolog Vial Sliding Scale -) 1 vial SQ TID [facility]; Protocol Last Admin: 12/14/18 06:57 Dose: 2 unit Insulin Detemir (Levemir Vial) 20 units SQ HS [facility] Last Admin: 12/13/18 23:18 Dose: 20 units Methadone HCl (Dolophine -) 40 mg NGT DAILY@0600 [facility] Last Admin: 12/14/18 05:45 Dose: 40 mg Metoprolol Tartrate (Lopressor -) 25 mg PO BID [facility] Last Admin: 12/13/18 23:12 Dose: 25 mg Pantoprazole Sodium (Protonix Packets For Oral Suspension -) 40 mg NGT DAILY [facility] Last Admin: 12/13/18 10:32 Dose: 40 mg Potassium Chloride (Potassium Chloride Oral Liquid) 10 meq PO BID [facility] Last Admin: 12/13/18 23:46 Dose: 10 meq Tiotropium [place] (Spiriva Respimat) 2 puff IH DAILY [facility] Last Admin: 12/13/18 10:53 Dose: 2 puff Valacyclovir HCl (Valtrex -) 500 mg NGT DAILY [facility] Last Admin: 12/13/18 10:30 Dose: 500 mg - Objective Vital Signs: Vital Signs Temperature 98.7 F 12/14/18 06:00 Pulse Rate 101 H 12/14/18 06:00 Respiratory Rate 18 12/14/18 06:00 Blood Pressure 165/88 12/14/18 06:00 O2 Sat by Pulse Oximetry (%) 96 12/13/18 21:00 Cardiovascular: Yes: S1, S2 Respiratory: Yes: On Nasal O2, Rhonchi Gastrointestinal: Yes: Normal Bowel Sounds, Soft Labs: CBC, BMP 12/13/18 06:30 12/13/18 06:30 INR, PTT INR 1.49 (0.83-1.09) H 12/10/18 05:15 Fibrinogen > 500.0 mg/dL (238-498) H 11/25/18 20:00 Problem List - Problems (1) Respiratory failure Assessment/Plan: -mechanical vent -pulmonary consult -bronchodilators -IV abx -ID on board Code(s): J96.90 - RESPIRATORY FAILURE, UNSP, UNSP W HYPOXIA OR HYPERCAPNIA (2) CKD (chronic kidney disease) Assessment/Plan: -improved TODAY 2.1 -nephrology on board -monitor trend Code(s): N18.9 - CHRONIC KIDNEY DISEASE, UNSPECIFIED (3) Diabetes Assessment/Plan: -bgm ac hs -Check A1c -Insulin: Novolog+Levemir -RD on board -endocrinology consult Code(s): E11.9 - TYPE 2 DIABETES MELLITUS WITHOUT COMPLICATIONS Qualifiers: Diabetes mellitus type: type 2 (4) Hyponatremia Assessment/Plan: Laboratory Tests 12/01/18 05:30 Sodium 134 L monitor Code(s): E87.1 - HYPO-OSMOLALITY AND HYPONATREMIA (5) Narcotic dependence Assessment/Plan: methadone Code(s): F11.20 - OPIOID DEPENDENCE, UNCOMPLICATED (6) Vertebral compression fracture Assessment/Plan: radiation oncology and JOSE MANUEL Code(s): M48.50XA - COLLAPSED VERTEBRA, NEC, SITE UNSP, INIT (3) Hyponatremia Assessment/Plan: ivf sodium from 125 to 129 Code(s): E87.1 - HYPO-OSMOLALITY AND HYPONATREMIA (4) Diabetes Assessment/Plan: levemir Code(s): E11.9 - TYPE 2 DIABETES MELLITUS WITHOUT COMPLICATIONS Qualifiers: Diabetes mellitus type: type 2 (5) Multiple myeloma Assessment/Plan: apreicate oncology eval Code(s): C90.00 - MULTIPLE MYELOMA NOT HAVING ACHIEVED REMISSION Code(s): M48.50XA - COLLAPSED VERTEBRA, NEC, SITE UNSP, INIT (7) Edema Assessment/Plan: dc ivf duplex NO DVT Code(s): R60.9 - EDEMA, UNSPECIFIED (8) Anemia Assessment/Plan: -guaiac negative, would repeat -H/H trending down -check Iron, thyroid profile, B12, FA -monitor trend Code(s): D64.9 - ANEMIA, UNSPECIFIED (9) Multiple myeloma Assessment/Plan: -Oncology on board Code(s): C90.00 - MULTIPLE MYELOMA NOT HAVING ACHIEVED REMISSION
[2018-12-14] MEDS: POTASSIUM CHLORIDE ORAL LIQUID 20 MEQ/15 ML PO SCH ×2 (10:19→22:08)
[2018-12-14] MEDS: CALCIUM 500MG/VIT-D 200 UNITS COMBO TABLET (FP) NGT SCH (10:19)
[2018-12-14] MEDS: METOPROLOL TARTRATE 25 MG TABLET (FP) PO SCH ×2 (10:19→22:08)
[2018-12-14] MEDS: ASPIRIN 81 MG CHEWABLE TABLETS NGT SCH (10:20)
[2018-12-14] MEDS: busPIRone HCL 5 MG TABLET NGT SCH ×2 (10:20→22:08)
[2018-12-14] MEDS: valACYclovir HCL 500 MG TABLET (FP) NGT SCH (10:20)
[2018-12-14] MEDS: PANTOPRAZOLE SOD 40 MG SUSPENSION PACKET NGT SCH (10:20)
[2018-12-14] MEDS: TIOTROPIUM BROMIDE 2.5 MCG (SPIRIVA) RESPIMAT INHALER IH SCH (10:20)
--- NOTE | 2018-12-14 10:51 | PN ---
Progress Note, RESEARCH TECHNICIAN - Note Progress Note: Selected Entries 12/12/18 12/12/18 12/12/18 02:00 06:59 10:00 Breakfast Supper Temperature 98.1 F 98.3 F 99.5 F 12/12/18 12/12/18 12/12/18 14:00 18:00 22:00 Breakfast Supper 100% Temperature 98.6 F 97.4 F L 98.3 F 12/13/18 12/13/18 12/13/18 01:26 06:00 10:00 Breakfast Supper Temperature 98.6 F 97.7 F 97.8 F 12/13/18 12/13/18 10:26 14:00 Breakfast 100% Supper Temperature 99 F Laboratory Tests 12/13/18 06:30 WBC 6.8 Selected Entries 12/13/18 12/14/18 12/14/18 15:00 01:19 06:00 Lunch 100% Temperature 98.3 F 98.7 F Laboratory Tests 12/13/18 06:30 WBC 6.8 MBS completed. Reviewed with staff. Dys puree/nectar thick liquid, HOB elevated with chin to neutral, 2 effortful swallows per bite, alternately puree/with liquid Supplements b/n meals. Monitor Pulm/Nutritional status.
[2018-12-14 10:54] LABS: ANION GAP 7 MMOL/L (8-16); BLOOD UREA NITROGEN 54 mg/dL (7-18); CALCIUM 8.2 mg/dL (8.5-10.1); CHLORIDE 121 mmol/L (98-107); CO2 21 mmol/L (21-32); CREATININE 2.1 mg/dL (0.55-1.3); POTASSIUM 3.8 mmol/L (3.5-5.1); SODIUM 150 mmol/L (136-145)
[2018-12-14 11:40] LABS: GLUCOSE,RANDOM 303 mg/dL (74-106)
--- NOTE | 2018-12-14 11:51 | PN ---
Progress Note, RADIOLOGY INTERVENTIONAL PHYSICIAN - Note Progress Note: Selected Entries 12/12/18 12/12/18 12/12/18 02:00 06:59 10:00 Breakfast Supper Temperature 98.1 F 98.3 F 99.5 F 12/12/18 12/12/18 12/12/18 14:00 18:00 22:00 Breakfast Supper 100% Temperature 98.6 F 97.4 F L 98.3 F 12/13/18 12/13/18 12/13/18 01:26 06:00 10:00 Breakfast Supper Temperature 98.6 F 97.7 F 97.8 F 12/13/18 12/13/18 10:26 14:00 Breakfast 100% Supper Temperature 99 F Laboratory Tests 12/13/18 06:30 WBC 6.8 Selected Entries 12/13/18 12/14/18 12/14/18 15:00 01:19 06:00 Lunch 100% Temperature 98.3 F 98.7 F Laboratory Tests 12/13/18 06:30 WBC 6.8 Selected Entries 12/14/18 12/14/18 12/14/18 01:19 06:00 10:00 Breakfast 100% Temperature 98.3 F 98.7 F Laboratory Tests 12/13/18 06:30 WBC 6.8 Dys puree/nectar thick liquid, HOB elevated with chin to neutral, 2 effortful swallows per bite, alternately puree/with liquid Supplements b/n meals. Monitor Pulm/Nutritional status. Pt doing very well with po diet with excellent appetite with [employer] OPERATOR assistance and good tolerance.
--- NOTE | 2018-12-14 12:10 | PN ---
Progress Note, Physician History of Present Illness: NO ACUTE DISTRESS AWAKE, CONFUSED AFEBRILE WBC WNL SPUTUM C/S SERRATIA URINE C/S E COLI - Current Medication List Current Medications: Active Medications Artificial Tears (Lacri-Lube Eye Ointment -) 1 applic OD HS PRN PRN Reason: DRY EYES Last Admin: 12/10/18 22:49 Dose: 1 applic Aspirin (Asa -) 81 mg NGT DAILY [facility] Last Admin: 12/14/18 10:20 Dose: 81 mg Atorvastatin Calcium (Lipitor -) 80 mg NGT HS [facility] Last Admin: 12/13/18 23:11 Dose: 80 mg Buspirone HCl (Buspar -) 15 mg NGT BID [facility] Last Admin: 12/14/18 10:20 Dose: 15 mg Calcium Carbonate/Cholecalciferol (Os-Kyler 500+D -) 2 tab NGT DAILY [facility] Last Admin: 12/14/18 10:19 Dose: 2 tab Heparin Sodium (Porcine) (Heparin -) 5,000 unit SQ TID [facility] Last Admin: 12/14/18 05:45 Dose: 5,000 unit Ceftazidime 1 gm/ Dextrose 50 mls @ 100 mls/hr IVPB Q8H-IV [facility]; Protocol Last Admin: 12/14/18 10:18 Dose: 100 mls/hr Insulin Aspart (Novolog Vial Sliding Scale -) 1 vial SQ TID [facility]; Protocol Last Admin: 12/14/18 06:57 Dose: 2 unit Insulin Detemir (Levemir Vial) 20 units SQ [facility] Last Admin: 12/13/18 23:18 Dose: 20 units Methadone HCl (Dolophine -) 40 mg NGT DAILY@0600 [facility] Last Admin: 12/14/18 05:45 Dose: 40 mg Metoprolol Tartrate (Lopressor -) 25 mg PO BID [facility] Last Admin: 12/14/18 10:19 Dose: 25 mg Pantoprazole Sodium (Protonix Packets For Oral Suspension -) 40 mg NGT DAILY [facility] Last Admin: 12/14/18 10:20 Dose: 40 mg Potassium Chloride (Potassium Chloride Oral Liquid) 10 meq PO BID [facility] Last Admin: 12/14/18 10:19 Dose: 10 meq Tiotropium [place] (Spiriva Respimat) 2 puff IH DAILY [facility] Last Admin: 12/14/18 10:20 Dose: 2 puff Valacyclovir HCl (Valtrex -) 500 mg NGT DAILY [facility] Last Admin: 12/14/18 10:20 Dose: 500 mg - Objective Vital Signs: Vital Signs Temperature 98.7 F 12/14/18 06:00 Pulse Rate 101 H 12/14/18 06:00 Respiratory Rate 18 12/14/18 06:00 Blood Pressure 165/88 12/14/18 06:00 O2 Sat by Pulse Oximetry (%) 96 12/13/18 21:00 Constitutional: Yes: No Distress Cardiovascular: Yes: Regular Rate and Rhythm, S1, S2 Respiratory: Yes: CTA Bilaterally Gastrointestinal: Yes: Normal Bowel Sounds, Soft. No: Tenderness Labs: CBC, BMP 12/13/18 06:30 12/14/18 10:00 INR, PTT INR 1.49 (0.83-1.09) H 12/10/18 05:15 Fibrinogen > 500.0 mg/dL (238-498) H 11/25/18 20:00 Assessment/Plan S/P RESPIRATORY FAILURE PULMONARY EDEMA R/O HCAP UTI MYELOMA DM CKD + SPUTUM MRSA D/C CEFTRAZIDIME OBSERVE OFF
--- NOTE | 2018-12-14 12:35 | PN ---
Progress Note, Physician History of Present Illness: PULMONARY AWAKE,LESS CONFUSED,-RESP DISTRESS - Current Medication List Current Medications: Active Medications Artificial Tears (Lacri-Lube Eye Ointment -) 1 applic OD HS PRN PRN Reason: DRY EYES Last Admin: 12/10/18 22:49 Dose: 1 applic Aspirin (Asa -) 81 mg NGT DAILY [facility] Last Admin: 12/14/18 10:20 Dose: 81 mg Atorvastatin Calcium (Lipitor -) 80 mg NGT HS [facility] Last Admin: 12/13/18 23:11 Dose: 80 mg Buspirone HCl (Buspar -) 15 mg NGT BID [facility] Last Admin: 12/14/18 10:20 Dose: 15 mg Calcium Carbonate/Cholecalciferol (Os-Kyler 500+D -) 2 tab NGT DAILY [facility] Last Admin: 12/14/18 10:19 Dose: 2 tab Heparin Sodium (Porcine) (Heparin -) 5,000 unit SQ TID [facility] Last Admin: 12/14/18 05:45 Dose: 5,000 unit Insulin Aspart (Novolog Vial Sliding Scale -) 1 vial SQ TID [facility]; Protocol Last Admin: 12/14/18 06:57 Dose: 2 unit Insulin Detemir (Levemir Vial) 20 units SQ [facility] Last Admin: 12/13/18 23:18 Dose: 20 units Methadone HCl (Dolophine -) 40 mg NGT DAILY@0600 [facility] Last Admin: 12/14/18 05:45 Dose: 40 mg Metoprolol Tartrate (Lopressor -) 25 mg PO BID [facility] Last Admin: 12/14/18 10:19 Dose: 25 mg Pantoprazole Sodium (Protonix Packets For Oral Suspension -) 40 mg NGT DAILY [facility] Last Admin: 12/14/18 10:20 Dose: 40 mg Potassium Chloride (Potassium Chloride Oral Liquid) 10 meq PO BID [facility] Last Admin: 12/14/18 10:19 Dose: 10 meq Tiotropium [place] (Spiriva Respimat) 2 puff IH DAILY [facility] Last Admin: 12/14/18 10:20 Dose: 2 puff Valacyclovir HCl (Valtrex -) 500 mg NGT DAILY [facility] Last Admin: 12/14/18 10:20 Dose: 500 mg - Objective Vital Signs: Vital Signs Temperature 98.7 F 12/14/18 06:00 Pulse Rate 101 H 12/14/18 06:00 Respiratory Rate 18 12/14/18 06:00 Blood Pressure 165/88 12/14/18 06:00 O2 Sat by Pulse Oximetry (%) 96 12/13/18 21:00 Constitutional: Yes: Well Nourished, Calm Eyes: Yes: WNL HENT: Yes: Nasal Congestion Neck: Yes: WNL Cardiovascular: Yes: Regular Rate and Rhythm, S1, S2 Respiratory: Yes: Diminished Gastrointestinal: Yes: Normal Bowel Sounds, Soft Extremities: Yes: WNL Edema: No Labs: CBC, BMP 12/13/18 06:30 12/14/18 10:00 INR, PTT INR 1.49 (0.83-1.09) H 12/10/18 05:15 Fibrinogen > 500.0 mg/dL (238-498) H 11/25/18 20:00 Problem List - Problems (1) Acute hypoxemic respiratory failure Code(s): J96.01 - ACUTE RESPIRATORY FAILURE WITH HYPOXIA (2) Anemia Code(s): D64.9 - ANEMIA, UNSPECIFIED (3) CKD (chronic kidney disease) Code(s): N18.9 - CHRONIC KIDNEY DISEASE, UNSPECIFIED (4) Elevated liver enzymes Code(s): R74.8 - ABNORMAL LEVELS OF OTHER SERUM ENZYMES (5) Elevated troponin Code(s): R74.8 - ABNORMAL LEVELS OF OTHER SERUM ENZYMES (6) Pulmonary congestion Code(s): R09.89 - OTH SYMPTOMS AND SIGNS INVOLVING THE CIRC AND RESP SYSTEMS (7) Respiratory failure Code(s): J96.90 - RESPIRATORY FAILURE, UNSP, UNSP W HYPOXIA OR HYPERCAPNIA Assessment/Plan ASSESSMENT AND PLAN: Acute Hypoxic and Hypercapneic Respiratory Failure improved Acute Pulmonary Edema Acute NSTEMI r/o Pneumonia UTI Acute on Chronic Renal Failure HTN DM COPD Methadone Maintenance MM - monitor urine output, creatinine - monitor lytes - ASA - inhaled bronchodilators - aspiration precautions - rehab/PT - DVT/GI prophylaxis DR WAGNER
--- NOTE | 2018-12-14 12:41 | PN ---
Progress Note, Physician History of Present Illness: Pt seen and examined at bedside. He is more awake and alert. He denies shortness of breath. - Current Medication List Current Medications: Active Medications Artificial Tears (Lacri-Lube Eye Ointment -) 1 applic OD HS PRN PRN Reason: DRY EYES Last Admin: 12/10/18 22:49 Dose: 1 applic Aspirin (Asa -) 81 mg NGT DAILY [facility] Last Admin: 12/14/18 10:20 Dose: 81 mg Atorvastatin Calcium (Lipitor -) 80 mg NGT HS [facility] Last Admin: 12/13/18 23:11 Dose: 80 mg Buspirone HCl (Buspar -) 15 mg NGT BID [facility] Last Admin: 12/14/18 10:20 Dose: 15 mg Calcium Carbonate/Cholecalciferol (Os-Kyler 500+D -) 2 tab NGT DAILY [facility] Last Admin: 12/14/18 10:19 Dose: 2 tab Heparin Sodium (Porcine) (Heparin -) 5,000 unit SQ TID [facility] Last Admin: 12/14/18 05:45 Dose: 5,000 unit Insulin Aspart (Novolog Vial Sliding Scale -) 1 vial SQ TID [facility]; Protocol Last Admin: 12/14/18 06:57 Dose: 2 unit Insulin Detemir (Levemir Vial) 20 units SQ HS [facility] Last Admin: 12/13/18 23:18 Dose: 20 units Methadone HCl (Dolophine -) 40 mg NGT DAILY@0600 [facility] Last Admin: 12/14/18 05:45 Dose: 40 mg Metoprolol Tartrate (Lopressor -) 25 mg PO BID [facility] Last Admin: 12/14/18 10:19 Dose: 25 mg Pantoprazole Sodium (Protonix Packets For Oral Suspension -) 40 mg NGT DAILY [facility] Last Admin: 12/14/18 10:20 Dose: 40 mg Potassium Chloride (Potassium Chloride Oral Liquid) 10 meq PO BID [facility] Last Admin: 12/14/18 10:19 Dose: 10 meq Tiotropium [place] (Spiriva Respimat) 2 puff IH DAILY [facility] Last Admin: 12/14/18 10:20 Dose: 2 puff Valacyclovir HCl (Valtrex -) 500 mg NGT DAILY [facility] Last Admin: 12/14/18 10:20 Dose: 500 mg - Objective Vital Signs: Vital Signs Temperature 98.7 F 12/14/18 06:00 Pulse Rate 101 H 12/14/18 06:00 Respiratory Rate 18 12/14/18 06:00 Blood Pressure 165/88 12/14/18 06:00 O2 Sat by Pulse Oximetry (%) 96 12/13/18 21:00 Constitutional: Yes: Calm Eyes: Yes: Conjunctiva Clear HENT: Yes: Atraumatic Cardiovascular: Yes: S1, S2 Respiratory: Yes: On Nasal O2 Genitourinary: Yes: [place] Present Musculoskeletal: Yes: Muscle Weakness Edema: No Neurological: Yes: Oriented Psychiatric: Yes: Oriented Labs: CBC, BMP 12/13/18 06:30 12/14/18 10:00 INR, PTT INR 1.49 (0.83-1.09) H 12/10/18 05:15 Fibrinogen > 500.0 mg/dL (238-498) H 11/25/18 20:00 Problem List - Problems (1) CKD (chronic kidney disease) Code(s): N18.9 - CHRONIC KIDNEY DISEASE, UNSPECIFIED (2) Constipation Code(s): K59.00 - CONSTIPATION, UNSPECIFIED Qualifiers: Constipation type: unspecified constipation type Qualified Code(s): K59.00 - Constipation, unspecified (3) Hyponatremia Code(s): E87.1 - HYPO-OSMOLALITY AND HYPONATREMIA Assessment/Plan Current Medications Generic Name Dose Route Start Last Admin Trade Name Freq PRN Reason Stop Dose Admin Artificial Tears 1 applic 12/10/18 22:05 12/10/18 22:49 Lacri-Lube Eye Ointment - OD 1 applic HS PRN Administration DRY EYES Aspirin 81 mg 12/09/18 10:00 12/14/18 10:20 Asa - NGT 81 mg DAILY [facility] Administration Atorvastatin Calcium 80 mg 12/08/18 22:00 12/13/18 23:11 Lipitor - NGT 80 mg HS [facility] Administration Buspirone HCl 15 mg 12/08/18 22:00 12/14/18 10:20 Buspar - NGT 15 mg BID [facility] Administration Calcium Carbonate/Cholecalciferol 2 tab 12/09/18 10:00 12/14/18 10:19 Os-Kyler 500+D - NGT 2 tab DAILY [facility] Administration Heparin Sodium (Porcine) 5,000 unit 12/08/18 22:00 03/13/19 05:45 Heparin - SQ 5,000 unit TID [facility] Administration Insulin Aspart 1 vial 12/08/18 22:00 12/14/18 06:57 Novolog Vial Sliding Scale - SQ 2 unit TID [facility] Administration Protocol Insulin Detemir 20 units 12/08/18 22:00 12/13/18 23:18 Levemir Vial SQ 20 units HS [facility] Administration Methadone HCl 40 mg 12/09/18 06:00 12/14/18 05:45 Dolophine - NGT 40 mg DAILY@0600 [facility] Administration Metoprolol Tartrate 25 mg 12/08/18 22:00 12/14/18 10:19 Lopressor - PO 25 mg BID [facility] Administration Pantoprazole Sodium 40 mg 12/12/18 10:00 12/14/18 10:20 Protonix Packets For Oral Suspension - NGT 40 mg DAILY [facility] Administration Potassium Chloride 10 meq 12/11/18 22:00 12/14/18 10:19 Potassium Chloride Oral Liquid PO 10 meq BID [facility] Administration Tiotropium [place] 2 puff 12/09/18 10:00 12/14/18 10:20 Spiriva Respimat IH 2 puff DAILY [facility] Administration Valacyclovir HCl 500 mg 12/09/18 10:00 12/14/18 10:20 Valtrex - NGT 500 mg DAILY [facility] Administration Impression 1. hyponatremia 2. CKD 3. nausea and vomiting 4. htn 5. DM 6. 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 multiple myeloma 9. anemia 10. proteinuria 11. hyperkalemia 12. resp failure 13. volume overload 14. hypernatremia Plan - encourage thickened water - cont gentle hydration - repeat labs in am - monitor sodium - mental status improved - incentive spirometer - renal function improving Dr Cates
[2018-12-14] MEDS ORDERED: SODIUM CHLORIDE 0.45% 1,000 ML IV SCH (12:45)
--- NOTE | 2018-12-14 14:55 | PN ---
Progress Note (short form) - Note Progress Note: Patient seen and examined Remains confused Could not answer year , place or President"s name Last Vital Signs Temp Pulse Resp BP Pulse Ox 98.2 F 108 H 18 126/72 96 12/14/18 10:00 12/14/18 10:00 12/14/18 10:00 12/14/18 10:00 12/14/18 10:00 HEENT: [place], EOM Intact Oropharynx: No thrush, No mucositis Cor: RSR, No murmurs, No gallops Lungs: decreased breath sounds Abd: Soft, Normal bowel sounds, No organomegaly? ascites Ext:No significant edema Skin: No rashes, Integument intact,stasis changes CBC, BMP 12/13/18 06:30 12/14/18 10:00 Impression: S/P respiratory failure UTI Multiple MYeloma DM Anemia CKD/DARIO Hyperchloremic /hypernatremic Kidney function improved To monitor off antibiotic P.T. Correction of electrolytes
[2018-12-14] MEDS: INSULIN (LEVEMIR) 100 UNITS/ML UNITS SQ SCH (22:08)
[2018-12-14] MEDS: ATORVASTATIN CA 80 MG TABLET (FP) NGT SCH (22:08)
[2018-12-14] MEDS: ACETAMINOPHEN 500 MG TABLET (FP) PO PRN (22:09)
[2018-12-15] MEDS: METHADONE HCL 40 MG DISPERSABLE TABLET NGT SCH (06:33)
[2018-12-15] MEDS: HEPARIN NA (PORCINE) 5,000 UNITS/ML 1ML VIAL SQ SCH ×3 (06:33→23:40)
[2018-12-15] MEDS: INSULIN SLIDING SCALE (NOVOLOG) 1 VIAL SQ SCH ×3 (06:39→16:57)
[2018-12-15 08:37] LABS: ALBUMIN 2.2 g/dl (3.4-5.0); ALK PHOS 142 U/L (45-117); ANION GAP 6 MMOL/L (8-16); BILIRUBIN,TOTAL 0.9 mg/dL (0.2-1); BLOOD UREA NITROGEN 42 mg/dL (7-18); CALCIUM 8.3 mg/dL (8.5-10.1); CHLORIDE 122 mmol/L (98-107); CO2 23 mmol/L (21-32); CREATININE 1.7 mg/dL (0.55-1.3); GLUCOSE,RANDOM 134 mg/dL (74-106); POTASSIUM 3.8 mmol/L (3.5-5.1); SGOT/AST 31 U/L (15-37); SGPT/ALT 60 U/L (13-61); SODIUM 151 mmol/L (136-145); TOT PROT 5.8 g/dl (6.4-8.2)
[2018-12-15] MEDS: POTASSIUM CHLORIDE ORAL LIQUID 20 MEQ/15 ML PO SCH ×2 (10:23→23:39)
[2018-12-15] MEDS: PANTOPRAZOLE SOD 40 MG SUSPENSION PACKET NGT SCH (10:24)
[2018-12-15] MEDS: METOPROLOL TARTRATE 25 MG TABLET (FP) PO SCH ×2 (10:24→23:40)
[2018-12-15] MEDS: valACYclovir HCL 500 MG TABLET (FP) NGT SCH (10:24)
[2018-12-15] MEDS: CALCIUM 500MG/VIT-D 200 UNITS COMBO TABLET (FP) NGT SCH (10:24)
[2018-12-15] MEDS: ASPIRIN 81 MG CHEWABLE TABLETS NGT SCH (10:29)
[2018-12-15] MEDS: TIOTROPIUM BROMIDE 2.5 MCG (SPIRIVA) RESPIMAT INHALER IH SCH (10:29)
[2018-12-15] MEDS: busPIRone HCL 5 MG TABLET NGT SCH ×2 (10:29→23:40)
[2018-12-15] MEDS ORDERED: PT OWN MED DRAWER 7, Y5N ONE ×2 (10:33→23:15)
--- NOTE | 2018-12-15 12:44 | PN ---
Progress Note, Physician History of Present Illness: Pt seen and examined at bedside. He is awake and appears comfortable. He denies shortness of breath. - Current Medication List Current Medications: Active Medications Acetaminophen (Tylenol -) 500 mg PO Q6H PRN PRN Reason: HEADACHE Last Admin: 12/14/18 22:09 Dose: 500 mg Artificial Tears (Lacri-Lube Eye Ointment -) 1 applic OD HS PRN PRN Reason: DRY EYES Last Admin: 12/10/18 22:49 Dose: 1 applic Aspirin (Asa -) 81 mg NGT DAILY [facility] Last Admin: 12/15/18 10:29 Dose: 81 mg Atorvastatin Calcium (Lipitor -) 80 mg NGT HS [facility] Last Admin: 12/14/18 22:08 Dose: 80 mg Buspirone HCl (Buspar -) 15 mg NGT BID [facility] Last Admin: 12/15/18 10:29 Dose: 15 mg Calcium Carbonate/Cholecalciferol (Os-Kyler 500+D -) 2 tab NGT DAILY [facility] Last Admin: 12/15/18 10:24 Dose: 2 tab Heparin Sodium (Porcine) (Heparin -) 5,000 unit SQ TID [facility] Last Admin: 12/15/18 06:33 Dose: 5,000 unit Insulin Aspart (Novolog Vial Sliding Scale -) 1 vial SQ TIDAC [facility]; Protocol Last Admin: 12/15/18 12:03 Dose: Not Given Insulin Detemir (Levemir Vial) 20 units SQ HS [facility] Last Admin: 12/14/18 22:08 Dose: 20 units Methadone HCl (Dolophine -) 40 mg NGT DAILY@0600 [facility] Last Admin: 12/15/18 06:33 Dose: 40 mg Metoprolol Tartrate (Lopressor -) 25 mg PO BID [facility] Last Admin: 12/15/18 10:24 Dose: 25 mg Pantoprazole Sodium (Protonix Packets For Oral Suspension -) 40 mg NGT DAILY [facility] Last Admin: 12/15/18 10:24 Dose: 40 mg Potassium Chloride (Potassium Chloride Oral Liquid) 10 meq PO BID [facility] Last Admin: 12/15/18 10:23 Dose: 10 meq Tiotropium [place] (Spiriva Respimat) 2 puff IH DAILY [facility] Last Admin: 12/15/18 10:29 Dose: 2 puff Valacyclovir HCl (Valtrex -) 500 mg NGT DAILY [facility] Last Admin: 12/15/18 10:24 Dose: 500 mg - Objective Vital Signs: Vital Signs Temperature 98.2 F 12/15/18 10:00 Pulse Rate 98 H 12/15/18 10:00 Respiratory Rate 20 12/15/18 10:00 Blood Pressure 134/74 12/15/18 10:00 O2 Sat by Pulse Oximetry (%) 98 12/15/18 09:00 Constitutional: Yes: Calm Eyes: Yes: Conjunctiva Clear HENT: Yes: Atraumatic Cardiovascular: Yes: S1, S2 Respiratory: Yes: On Nasal O2 Gastrointestinal: Yes: Soft Genitourinary: Yes: Massey Present Musculoskeletal: Yes: Muscle Weakness Edema: No Integumentary: Yes: Venous Stasis Changes Neurological: Yes: Oriented Labs: CBC, BMP 12/13/18 06:30 12/15/18 06:17 INR, PTT INR 1.49 (0.83-1.09) H 12/10/18 05:15 Fibrinogen > 500.0 mg/dL (238-498) H 11/25/18 20:00 Problem List - Problems (1) CKD (chronic kidney disease) Code(s): N18.9 - CHRONIC KIDNEY DISEASE, UNSPECIFIED (2) Constipation Code(s): K59.00 - CONSTIPATION, UNSPECIFIED Qualifiers: Constipation type: unspecified constipation type Qualified Code(s): K59.00 - Constipation, unspecified (3) Hyponatremia Code(s): E87.1 - HYPO-OSMOLALITY AND HYPONATREMIA Assessment/Plan Current Medications Generic Name Dose Route Start Last Admin Trade Name Imani PRN Reason Stop Dose Admin Acetaminophen 500 mg 12/14/18 20:46 12/14/18 22:09 Tylenol - PO 500 mg Q6H PRN Administration HEADACHE Artificial Tears 1 applic 12/10/18 22:05 12/10/18 22:49 Lacri-Lube Eye Ointment - OD 1 applic HS PRN Administration DRY EYES Aspirin 81 mg 12/09/18 10:00 12/15/18 10:29 Asa - NGT 81 mg DAILY [facility] Administration Atorvastatin Calcium 80 mg 12/08/18 22:00 12/14/18 22:08 Lipitor - NGT 80 mg HS [facility] Administration Buspirone HCl 15 mg 12/08/18 22:00 12/15/18 10:29 Buspar - NGT 15 mg BID [facility] Administration Calcium Carbonate/Cholecalciferol 2 tab 12/09/18 10:00 12/15/18 10:24 Os-Kyler 500+D - NGT 2 tab DAILY [facility] Administration Heparin Sodium (Porcine) 5,000 unit 12/08/18 22:00 12/15/18 06:33 Heparin - SQ 5,000 unit TID [facility] Administration Insulin Aspart 1 vial 12/14/18 17:00 12/15/18 12:03 Novolog Vial Sliding Scale - SQ Not [facility] Protocol Insulin Detemir 20 units 12/08/18 22:00 12/14/18 22:08 Levemir Vial SQ 20 units HS [facility] Administration Methadone HCl 40 mg 12/09/18 06:00 12/15/18 06:33 Dolophine - NGT 40 mg DAILY@0600 [facility] Administration Metoprolol Tartrate 25 mg 12/08/18 22:00 12/15/18 10:24 Lopressor - PO 25 mg BID [facility] Administration Pantoprazole Sodium 40 mg 12/12/18 10:00 12/15/18 10:24 Protonix Packets For Oral Suspension - NGT 40 mg DAILY [facility] Administration Potassium Chloride 10 meq 12/11/18 22:00 12/15/18 10:23 Potassium Chloride Oral Liquid PO 10 meq BID [facility] Administration Tiotropium [place] 2 puff 12/09/18 10:00 12/15/18 10:29 Spiriva Respimat IH 2 puff DAILY [facility] Administration Valacyclovir HCl 500 mg 12/09/18 10:00 12/15/18 10:24 Valtrex - NGT 500 mg DAILY [facility] Administration Impression 1. hyponatremia 2. CKD 3. nausea and vomiting 4. htn 5. DM 6. 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 multiple myeloma 9. anemia 10. proteinuria 11. hyperkalemia 12. resp failure 13. volume overload 14. hypernatremia Plan - change fluids to d5w - encourage free water intake - monitor sodium - mental status improved - incentive spirometer - renal function improving Dr Cates
[2018-12-15] MEDS ORDERED: DEXTROSE 5%-WATER - 1,000 ML IV SCH (12:45)
--- NOTE | 2018-12-15 13:12 | PN ---
Progress Note (short form) - Note Progress Note: PULMONARY Breathing continues to improve. No cough or wheezing. Vital Signs Period Temp Pulse Resp BP Sys/Andre Pulse Ox Last 24 Hr 97.7 F-98.3 F 87-105 20-20 134-148/74-89 98-98 Gen: NAD at rest Heart: RRR Lung: decreased breath sounds at the bases Abd: soft, nontender Ext: no edema CBC, BMP 12/13/18 06:30 12/15/18 06:17 Active Medications Acetaminophen (Tylenol -) 500 mg PO Q6H PRN PRN Reason: HEADACHE Last Admin: 12/14/18 22:09 Dose: 500 mg Artificial Tears (Lacri-Lube Eye Ointment -) 1 applic OD HS PRN PRN Reason: DRY EYES Last Admin: 12/10/18 22:49 Dose: 1 applic Aspirin (Asa -) 81 mg NGT DAILY [facility] Last Admin: 12/15/18 10:29 Dose: 81 mg Atorvastatin Calcium (Lipitor -) 80 mg NGT HS [facility] Last Admin: 12/14/18 22:08 Dose: 80 mg Buspirone HCl (Buspar -) 15 mg NGT BID [facility] Last Admin: 12/15/18 10:29 Dose: 15 mg Calcium Carbonate/Cholecalciferol (Os-Kyler 500+D -) 2 tab NGT DAILY [facility] Last Admin: 12/15/18 10:24 Dose: 2 tab Heparin Sodium (Porcine) (Heparin -) 5,000 unit SQ TID [facility] Last Admin: 12/15/18 06:33 Dose: 5,000 unit Dextrose (D5w -) 1,000 mls @ 42 mls/hr IV .[id number] [facility] Insulin Aspart (Novolog Vial Sliding Scale -) 1 vial SQ TIDAC [facility]; Protocol Last Admin: 12/15/18 12:03 Dose: Not Given Insulin Detemir (Levemir Vial) 20 units SQ HS [facility] Last Admin: 12/14/18 22:08 Dose: 20 units Methadone HCl (Dolophine -) 40 mg NGT DAILY@0600 [facility] Last Admin: 12/15/18 06:33 Dose: 40 mg Metoprolol Tartrate (Lopressor -) 25 mg PO BID [facility] Last Admin: 12/15/18 10:24 Dose: 25 mg Pantoprazole Sodium (Protonix Packets For Oral Suspension -) 40 mg NGT DAILY [facility] Last Admin: 12/15/18 10:24 Dose: 40 mg Potassium Chloride (Potassium Chloride Oral Liquid) 10 meq PO BID [facility] Last Admin: 12/15/18 10:23 Dose: 10 meq Tiotropium [place] (Spiriva Respimat) 2 puff IH DAILY [facility] Last Admin: 12/15/18 10:29 Dose: 2 puff Valacyclovir HCl (Valtrex -) 500 mg NGT DAILY [facility] Last Admin: 12/15/18 10:24 Dose: 500 mg A/P Acute Hypoxic and Hypercapneic Respiratory Failure improving Acute Pulmonary Edema resolving Acute NSTEMI r/o Pneumonia UTI Acute on Chronic Renal Failure HTN DM COPD Methadone Maintenance - continue antibiotics per ID - daily assessment of lasix - monitor urine output, creatinine - ASA - inhaled bronchodilators - aspiration precautions - rehab/PT - DVT/GI prophylaxis
--- NOTE | 2018-12-15 14:14 | PN ---
Progress Note, Physician Chief Complaint: pateint in bed labs noted - Current Medication List Current Medications: Active Medications Acetaminophen (Tylenol -) 500 mg PO Q6H PRN PRN Reason: HEADACHE Last Admin: 12/14/18 22:09 Dose: 500 mg Artificial Tears (Lacri-Lube Eye Ointment -) 1 applic OD HS PRN PRN Reason: DRY EYES Last Admin: 12/10/18 22:49 Dose: 1 applic Aspirin (Asa -) 81 mg NGT DAILY [facility] Last Admin: 12/15/18 10:29 Dose: 81 mg Atorvastatin Calcium (Lipitor -) 80 mg NGT HS [facility] Last Admin: 12/14/18 22:08 Dose: 80 mg Buspirone HCl (Buspar -) 15 mg NGT BID [facility] Last Admin: 12/15/18 10:29 Dose: 15 mg Calcium Carbonate/Cholecalciferol (Os-Kyler 500+D -) 2 tab NGT DAILY [facility] Last Admin: 12/15/18 10:24 Dose: 2 tab Heparin Sodium (Porcine) (Heparin -) 5,000 unit SQ TID [facility] Last Admin: 12/15/18 06:33 Dose: 5,000 unit Dextrose (D5w -) 1,000 mls @ 42 mls/hr IV .[id number] [facility] Insulin Aspart (Novolog Vial Sliding Scale -) 1 vial SQ TIDAC [facility]; Protocol Last Admin: 12/15/18 12:03 Dose: Not Given Insulin Detemir (Levemir Vial) 20 units SQ HS [facility] Last Admin: 12/14/18 22:08 Dose: 20 units Methadone HCl (Dolophine -) 40 mg NGT DAILY@0600 [facility] Last Admin: 12/15/18 06:33 Dose: 40 mg Metoprolol Tartrate (Lopressor -) 25 mg PO BID [facility] Last Admin: 12/15/18 10:24 Dose: 25 mg Pantoprazole Sodium (Protonix Packets For Oral Suspension -) 40 mg NGT DAILY [facility] Last Admin: 12/15/18 10:24 Dose: 40 mg Polyethylene Glycol (Miralax (For Daily Use) -) 17 gm PO BID [facility] Potassium Chloride (Potassium Chloride Oral Liquid) 10 meq PO BID [facility] Last Admin: 12/15/18 10:23 Dose: 10 meq Tiotropium [place] (Spiriva Respimat) 2 puff IH DAILY [facility] Last Admin: 12/15/18 10:29 Dose: 2 puff Valacyclovir HCl (Valtrex -) 500 mg NGT DAILY [facility] Last Admin: 12/15/18 10:24 Dose: 500 mg - Objective Vital Signs: Vital Signs Temperature 98.2 F 12/15/18 10:00 Pulse Rate 98 H 12/15/18 10:00 Respiratory Rate 20 12/15/18 10:00 Blood Pressure 134/74 12/15/18 10:00 O2 Sat by Pulse Oximetry (%) 98 12/15/18 09:00 Constitutional: Yes: Calm Cardiovascular: Yes: Regular Rate and Rhythm, S1, S2 Respiratory: Yes: Diminished Gastrointestinal: Yes: Soft, Distention Neurological: Yes: Alert Labs: CBC, BMP 12/13/18 06:30 12/15/18 06:17 INR, PTT INR 1.49 (0.83-1.09) H 12/10/18 05:15 Fibrinogen > 500.0 mg/dL (238-498) H 11/25/18 20:00 Problem List - Problems (1) Abdominal distension Assessment/Plan: GI follow up abdominal xray miralax Code(s): R14.0 - ABDOMINAL DISTENSION (GASEOUS) (2) Respiratory failure Assessment/Plan: iv lasix bid for pulm edema- improved no off the lasix extubated on bipap- now on venti mask monitor renal function and potassium positve MRSA in sputum,isolation ceftazidime for serratia in sputum- dc Microbiology 12/03/18 11:30 Sputum - Endotrachea Suction/Ventilator Gram Stain - Final 12/03/18 11:30 Sputum - Endotrachea Suction/Ventilator Sputum Culture - Final Serratia Marcescens Code(s): J96.90 - RESPIRATORY FAILURE, UNSP, UNSP W HYPOXIA OR HYPERCAPNIA (3) Vertebral compression fracture Assessment/Plan: radiation oncology and JOSE MANUEL noted to follow up as outpatient Code(s): M48.50XA - COLLAPSED VERTEBRA, NEC, SITE UNSP, INIT (4) Diabetes Assessment/Plan: levemir hgba1c 7.7 Code(s): E11.9 - TYPE 2 DIABETES MELLITUS WITHOUT COMPLICATIONS Qualifiers: Diabetes mellitus type: type 2 (5) Multiple myeloma Assessment/Plan: last treatment was 11/18 Code(s): C90.00 - MULTIPLE MYELOMA NOT HAVING ACHIEVED REMISSION (6) Hypocalcemia Assessment/Plan: now calcium is better calcium tablets Code(s): E83.51 - HYPOCALCEMIA (7) Elevated troponin Assessment/Plan: due to demand ischemia on aspirin and lipitor Code(s): R74.8 - ABNORMAL LEVELS OF OTHER SERUM ENZYMES (8) UTI (urinary tract infection) Assessment/Plan: Microbiology 12/05/18 20:40 Urine - Urine Massey Urine Culture - Final Escherichia Coli 11/28/18 10:40 Sputum - Endotrachea Suction/Ventilator Gram Stain - Final 11/28/18 10:40 Sputum - Endotrachea Suction/Ventilator Sputum Culture - Final S Aureus ceftazidime for UTI and serratia in sputum- completed Code(s): N39.0 - URINARY TRACT INFECTION, SITE NOT SPECIFIED (9) Hypernatremia Assessment/Plan: d5w Code(s): E87.0 - HYPEROSMOLALITY AND HYPERNATREMIA
--- NOTE | 2018-12-15 16:39 | CONSULT ---
Consult Consult Specialty:: Podiatry Reason for Consultation:: Elongated thickened toe nails - History of Present Illness Chief Complaint: Elongated hypertrophic nails with subungual debris. History of Present Illness: Elongated hypertrophic nails with subungual debris. 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 Neuropathy (stocking glove distribution related to DM) Cardio/Vascular: Yes: CHF, HTN, Hyperlipdemia Pulmonary: Yes: Asthma, Other (left chest tube for rib fracture related pneumothorax afte a fall) Gastrointestinal: Yes: Constipation Hepatobiliary: Yes: Hepatitis C (cured several years ago with Dr Bedolla) Renal/: Yes: Renal Inusuff Infectious Disease: Yes: Other (Hepatitis C cured) Psych: Yes: Depression Musculoskeletal: Yes: Chronic low back pain, Other (multiple thoracolumbar vertebral fractures) Endocrine: Yes: Diabetes Mellitus Dermatology: Yes: Other (varicose veins) Additional Medical History: Laser therapy for diabetic retinopathy - Past Surgical History Past Surgical History: Yes: Amputation (5th digit R foot), Tonsillectomy - Alcohol/Substance Use Hx Alcohol Use: Yes (rare glass of wine, drank heavily over 10 years ago) History of Substance Use: reports: None (snorted), Cocaine, Heroin (sorteh) - Smoking History Smoking history: Former smoker Have you smoked in the past 12 months: No If you are a former smoker, when did you quit?: 1996 - Social History Usual Living Arrangement: With Spouse ADL: Independent 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 History of Recent Travel: Yes (to [place] in past 2 weeks ) Home Medications - Allergies Allergies/Adverse Reactions: Allergies Allergy/AdvReac Type Severity Reaction Status Date / Time No Known Allergies Allergy Verified 10/29/18 03:32 - Home Medications Home Medications: Ambulatory Orders Albuterol Sulfate Inhaler - [Ventolin HFA Inhaler -] 2 puff PO QID PRN 06/07/15 Aspirin [Aspirin EC] 81 mg PO DAILY 06/07/15 Enalapril Maleate [Vasotec -] 20 mg PO DAILY 06/07/15 Insulin Glargine,Hum.rec.anlog [Lantus (10mL VIAL) -] 40 unit SQ HS 06/07/15 Salmeterol/Fluticasone [Advair 100Mcg/50Mcg -] 1 puff PO BID 09/04/15 Sertraline HCl 50 mg PO DAILY 06/07/15 metFORMIN HCL [Metformin HCl] 1,000 mg PO BID 06/07/15 Acetaminophen [Tylenol .Regular Strength -] 650 mg PO Q6H PRN #0 tablet Methadone [Dolophine -] 70 mg PO DAILY 01/30/16 Buspirone HCl 15 mg PO BID 07/22/18 Metoprolol Tartrate [Lopressor -] 25 mg PO BID #60 tablet 07/27/18 Nifedipine ER [Procardia XL -] 30 mg PO DAILY #30 tab.er.24 07/27/18 Family Disease History - Family Disease History Family Disease History: CA: Mother (asthma, breast cancer ), Other: Father ( 90 natural causes), Mother, Brother ( alcoholic cirrhosis) Physical Exam Vital Signs: Vital Signs Temperature 98.4 F 12/15/18 13:10 Pulse Rate 90 12/15/18 13:10 Respiratory Rate 18 12/15/18 13:10 Blood Pressure 137/76 12/15/18 13:10 O2 Sat by Pulse Oximetry (%) 98 12/15/18 09:00 Extremities: Yes: Other (+hypertrophic mycotic nails with subungual debris, + inflammed nails beds, +distal seperation of nail from bed, +xerosis b/l feet, - cellulitis, -ulceration,) Labs: CBC, BMP 12/13/18 06:30 12/15/18 06:17 Assessment/Plan onychomycosis xerosis Debride nails tomorrow. Ammonium lactate BID to feet and legs. Will follow.
--- NOTE | 2018-12-15 19:43 | PN ---
Progress Note (short form) - Note Progress Note: Patient seen and examined in icu awake, alert but still with some confusion. oving all extremities AFVSS Cor: RSR, No murmurs, No gallops Lungs: Clear to auscultation anteriorly Abd: Soft, Normal bowel sounds, No organomegaly Ext:chronic stasis dermatitis Labs/meds reviewed A/P 63 y/o patient with multiple coorbidites, HTN, DM, PVD, ? COPD, CKD, recently diagnosed myeloma, vertebral fractures on velcade/cytoxan/dexamethasone/zometa. Admitted with severe constipation and hyponatremia. Was on golytely for constipation and hydration for hyponatremia Developed acute resp. distress and high BPs evening of 11/25 ? flash pulmonary edema + pneumonia CXR-airspace opacities was diuresed and placed on antibiotics + troponins-- not a candidate for agressive cardiac interventions received ceftazidime for UTI and serratia in sputum and vancomycin for RSA in sputum Myeloma--on velcade/cytoxan/dex --last dose 11/18 On zometa--11/18 treatment on hold light chains decreasing slowly s/p rt to lspine and left acetabular fx Renal impairment improved will reconsult neurology
[2018-12-15] MEDS: ATORVASTATIN CA 80 MG TABLET (FP) NGT SCH (23:39)
[2018-12-15] MEDS: POLYETHYLENE GLYCOL 3350 119 GM BTL PO SCH (23:39)
[2018-12-15] MEDS: INSULIN (LEVEMIR) 100 UNITS/ML UNITS SQ SCH (23:46)
[2018-12-16] MEDS: HEPARIN NA (PORCINE) 5,000 UNITS/ML 1ML VIAL SQ SCH ×3 (06:06→21:13)
[2018-12-16] MEDS: METHADONE HCL 40 MG DISPERSABLE TABLET NGT SCH (06:06)
[2018-12-16] MEDS: INSULIN SLIDING SCALE (NOVOLOG) 1 VIAL SQ SCH ×3 (06:06→17:06)
[2018-12-16 06:57] LABS: ALBUMIN 2.2 g/dl (3.4-5.0); ALK PHOS 129 U/L (45-117); ANION GAP 5 MMOL/L (8-16); BILIRUBIN,TOTAL 0.2 mg/dL (0.2-1); BLOOD UREA NITROGEN 38 mg/dL (7-18); CALCIUM 7.9 mg/dL (8.5-10.1); CHLORIDE 115 mmol/L (98-107); CO2 26 mmol/L (21-32); CREATININE 1.5 mg/dL (0.55-1.3); GLUCOSE,RANDOM 208 mg/dL (74-106); POTASSIUM 4.5 mmol/L (3.5-5.1); SGOT/AST 27 U/L (15-37); SGPT/ALT 48 U/L (13-61); SODIUM 145 mmol/L (136-145); TOT PROT 5.6 g/dl (6.4-8.2)
[2018-12-16] MEDS: METOPROLOL TARTRATE 25 MG TABLET (FP) PO SCH ×2 (09:49→21:13)
[2018-12-16] MEDS: POTASSIUM CHLORIDE ORAL LIQUID 20 MEQ/15 ML PO SCH ×2 (09:49→21:14)
[2018-12-16] MEDS: PANTOPRAZOLE SOD 40 MG SUSPENSION PACKET NGT SCH (09:49)
[2018-12-16] MEDS: valACYclovir HCL 500 MG TABLET (FP) NGT SCH (09:49)
[2018-12-16] MEDS: CALCIUM 500MG/VIT-D 200 UNITS COMBO TABLET (FP) NGT SCH (09:49)
[2018-12-16] MEDS: ASPIRIN 81 MG CHEWABLE TABLETS NGT SCH (09:49)
[2018-12-16] MEDS: POLYETHYLENE GLYCOL 3350 119 GM BTL PO SCH ×2 (09:50→21:15)
[2018-12-16] MEDS: busPIRone HCL 5 MG TABLET NGT SCH ×2 (09:50→21:15)
[2018-12-16] MEDS: TIOTROPIUM BROMIDE 2.5 MCG (SPIRIVA) RESPIMAT INHALER IH SCH (09:56)
--- NOTE | 2018-12-16 13:03 | PN ---
Progress Note (short form) - Note Progress Note: Resting in NAD. Breathing continues to improve. No cough or wheezing. Intake & Output 12/13/18 12/14/18 12/15/18 12/16/18 23:59 23:59 23:59 23:59 Intake Total 1394 1502 0 864 Output Total 1398 923 3624 400 Balance -6 1002 -2175 464 Last Vital Signs Temp Pulse Resp BP Pulse Ox 98.0 F 81 20 107/76 96 12/16/18 05:00 12/16/18 05:00 12/16/18 09:00 12/16/18 05:00 12/16/18 09:00 Active Medications Acetaminophen (Tylenol -) 500 mg PO Q6H PRN PRN Reason: HEADACHE Last Admin: 12/14/18 22:09 Dose: 500 mg Artificial Tears (Lacri-Lube Eye Ointment -) 1 applic OD HS PRN PRN Reason: DRY EYES Last Admin: 12/10/18 22:49 Dose: 1 applic Aspirin (Asa -) 81 mg NGT DAILY [facility] Last Admin: 12/16/18 09:49 Dose: 81 mg Atorvastatin Calcium (Lipitor -) 80 mg NGT HS [facility] Last Admin: 12/15/18 23:39 Dose: 80 mg Buspirone HCl (Buspar -) 15 mg NGT BID [facility] Last Admin: 12/16/18 09:50 Dose: 15 mg Calcium Carbonate/Cholecalciferol (Os-Kyler 500+D -) 2 tab NGT DAILY [facility] Last Admin: 12/16/18 09:49 Dose: 2 tab Heparin Sodium (Porcine) (Heparin -) 5,000 unit SQ TID [facility] Last Admin: 12/16/18 06:06 Dose: 5,000 unit Dextrose (D5w -) 1,000 mls @ 42 mls/hr IV .[id number] [facility] Insulin Aspart (Novolog Vial Sliding Scale -) 1 vial SQ TIDAC [facility]; Protocol Last Admin: 12/16/18 11:57 Dose: 2 units Insulin Detemir (Levemir Vial) 20 units SQ [facility] Last Admin: 12/15/18 23:46 Dose: 20 units Methadone HCl (Dolophine -) 40 mg NGT DAILY@0600 [facility] Last Admin: 12/16/18 06:06 Dose: 40 mg Metoprolol Tartrate (Lopressor -) 25 mg PO BID [facility] Last Admin: 12/16/18 09:49 Dose: 25 mg Pantoprazole Sodium (Protonix Packets For Oral Suspension -) 40 mg NGT DAILY [facility] Last Admin: 12/16/18 09:49 Dose: 40 mg Polyethylene Glycol (Miralax (For Daily Use) -) 17 gm PO BID [facility] Last Admin: 12/16/18 09:50 Dose: 17 gm Potassium Chloride (Potassium Chloride Oral Liquid) 10 meq PO BID [facility] Last Admin: 12/16/18 09:49 Dose: 10 meq Tiotropium [place] (Spiriva Respimat) 2 puff IH DAILY [facility] Last Admin: 12/16/18 09:56 Dose: 2 puff Valacyclovir HCl (Valtrex -) 500 mg NGT DAILY [facility] Last Admin: 12/16/18 09:49 Dose: 500 mg Gen: NAD at rest Heart: RRR Lung: decreased breath sounds at the bases Abd: soft, nontender Ext: no edema Laboratory Results - last 24 hr 12/15/18 12/15/18 12/16/18 16:43 23:45 05:30 Sodium 145 Potassium 4.5 Chloride 115 H Carbon Dioxide 26 Anion Gap 5 L BUN 38 H Creatinine 1.5 H Creat Clearance w eGFR 46.97 POC Glucometer 179 255 Random Glucose 208 H Calcium 7.9 L Total Bilirubin 0.2 AST 27 ALT 48 Alkaline Phosphatase 129 H Total Protein 5.6 L Albumin 2.2 L 12/16/18 12/16/18 05:44 11:54 Sodium Potassium Chloride Carbon Dioxide Anion Gap BUN Creatinine Creat Clearance w eGFR POC Glucometer 192 191 Random Glucose Calcium Total Bilirubin AST ALT Alkaline Phosphatase Total Protein Albumin A/P Acute Hypoxic and Hypercapneic Respiratory Failure improving Acute Pulmonary Edema resolving Acute NSTEMI r/o Pneumonia UTI Acute on Chronic Renal Failure HTN DM COPD Methadone Maintenance - Completed ABX - ASA - inhaled bronchodilators - aspiration precautions - rehab/PT - DVT/GI prophylaxis - VTE prophylaxis Dr Culver
--- NOTE | 2018-12-16 13:56 | PN ---
GI Progress Note Subjective: GI NOte: Asked to re-evaluate for abdominal distension. FUA reveals ileus. Napoleon denies abdominal pain, nausea or vomiting and he ate a bit better at breakfast but does not want lunch. He is edentulous and his dentures were lost. Methadone is down to 40mg daily. He had a formed BM yesterday. - Objective Vital Signs: Vital Signs Temperature 98.0 F 12/16/18 05:00 Pulse Rate 81 12/16/18 05:00 Respiratory Rate 20 12/16/18 09:00 Blood Pressure 107/76 12/16/18 05:00 O2 Sat by Pulse Oximetry (%) 96 12/16/18 09:00 CBC,CMP WBC 6.8 K/mm3 (4.0-10.0) 12/13/18 06:30 RBC 3.25 M/mm3 (4.00-5.60) L 12/13/18 06:30 Hgb 9.4 GM/dL (11.7-16.9) L 12/13/18 06:30 Hct 28.5 % (35.4-49) L 12/13/18 06:30 MCV 87.7 fl (80-96) 12/13/18 06:30 MCH 28.8 pg (25.7-33.7) 12/13/18 06:30 MCHC 32.9 g/dl (32.0-35.9) 12/13/18 06:30 RDW 16.6 % (11.9-15.9) H 12/13/18 06:30 Plt Count 234 K/MM3 (134-434) 12/13/18 06:30 MPV 8.8 fl (7.5-11.1) 12/13/18 06:30 Absolute Neuts (auto) 5.3 K/mm3 (1.5-8.0) 12/12/18 10:16 Total Counted 100 12/03/18 05:30 Neutrophils % (Manual) 84.0 % (42.8-82.8) H 12/03/18 05:30 Band Neutrophils % 3.0 % 12/03/18 05:30 Neutrophils % 76.2 % (42.8-82.8) 12/12/18 10:16 Lymphocytes % (Manual) 4.0 % (8-40) L 12/03/18 05:30 Lymphocytes % 13.5 % (8-40) D 12/12/18 10:16 Monocytes % (Manual) 2 % (3.8-10.2) L 12/03/18 05:30 Eosinophils % (Manual) 2.0 % (0-4.5) 12/03/18 05:30 Monocytes % 6.4 % (3.8-10.2) 12/12/18 10:16 Eosinophils % 2.9 % (0-4.5) 12/12/18 10:16 Basophils % 1.0 % (0-2.0) 12/12/18 10:16 Nucleated RBC % 0 % (0-0) 12/12/18 10:16 Platelet Estimate Adequate 12/03/18 05:30 Platelet Comment Giant platelets 12/03/18 05:30 Poikilocytosis 2+ 12/03/18 05:30 Basophilic Stippling 1+ 12/03/18 05:30 Tear Drop Cells 1+ 12/03/18 05:30 Ovalocytes 1+ 12/03/18 05:30 Acanthocytes (Spur) 1+ 12/03/18 05:30 Sodium 145 mmol/L (136-145) 12/16/18 05:30 Potassium 4.5 mmol/L (3.5-5.1) 12/16/18 05:30 Chloride 115 mmol/L (98-107) H 12/16/18 05:30 Carbon Dioxide 26 mmol/L (21-32) 12/16/18 05:30 Anion Gap 5 MMOL/L (8-16) L 12/16/18 05:30 BUN 38 mg/dL (7-18) H 12/16/18 05:30 Creatinine 1.5 mg/dL (0.55-1.3) H 12/16/18 05:30 Creat Clearance w eGFR 46.97 (>60) 12/16/18 05:30 POC Glucometer 191 UNITS (80-120) 12/16/18 11:54 Random Glucose 208 mg/dL (74-106) H 12/16/18 05:30 Hemoglobin A1c % 7.7 % (4.2-6.3) H 11/28/18 05:15 Serum Osmolality 271 mosm/kg (278-305) L 11/20/18 21:00 Lactic Acid 0.9 mmol/L (0.4-2.0) 11/20/18 08:30 Uric Acid 4.9 mg/dL (2.6-7.2) 11/26/18 05:30 Calcium 7.9 mg/dL (8.5-10.1) L 12/16/18 05:30 Phosphorus 3.6 mg/dL (2.5-4.9) 12/09/18 06:00 Magnesium 2.2 mg/dL (1.8-2.4) 12/10/18 05:15 Iron 28 ug/dL (38-169) L 11/28/18 05:15 TIBC 245 ug/dL (250-450) L 11/28/18 05:15 Iron Saturation 11 % (15-55) L 11/28/18 05:15 Ferritin 184.3 ng/ml (8-388) 11/28/18 05:15 Total Bilirubin 0.2 mg/dL (0.2-1) 12/16/18 05:30 Direct Bilirubin 0.2 mg/dL (0.0-0.2) 12/10/18 05:15 AST 27 U/L (15-37) 12/16/18 05:30 ALT 48 U/L (13-61) 12/16/18 05:30 Alkaline Phosphatase 129 U/L (45-117) H 12/16/18 05:30 LD Total 297 U/L (87-246) H 11/26/18 05:30 Creatine Kinase 180 U/L (26-308) 11/30/18 16:00 Creatine Kinase Index 5.6 % (0.0-5.0) H 11/30/18 16:00 CK-MB (CK-2) 10.2 ng/mL (0.5-3.6) H 11/30/18 16:00 CK-BB (CK-1) 0 % TOTAL (0) 11/25/18 20:00 CK/CKMB % Calc 0 % (0-3) 11/25/18 20:00 Troponin I 15.20 ng/ml (0.00-0.05) H* 11/30/18 16:00 Total Protein 5.6 g/dl (6.4-8.2) L 12/16/18 05:30 Albumin 2.2 g/dl (3.4-5.0) L 12/16/18 05:30 Lipase 242 U/L (73-393) 11/20/18 08:30 Vitamin B12 1334 pg/ml (193-986) H 12/09/18 06:00 Serum Folate 21 ng/mL (3.1-17.5) H 12/11/18 06:10 Free T4 1.04 ng/dl (0.76-1.16) 11/28/18 05:15 TSH 1.67 uIU/ml (0.358-3.74) D 12/10/18 05:15 Constitutional: No Distress Gastrointestinal Inspection: Yes: Distention ...Auscultate: Yes: Hypoactive Bowel Sounds ...Palpate: Yes: Soft, Other (nontender) ...Percussion: Yes: Tympanitic Labs: CBC, BMP 12/13/18 06:30 12/16/18 05:30 INR, PTT INR 1.49 (0.83-1.09) H 12/10/18 05:15 Fibrinogen > 500.0 mg/dL (238-498) H 11/25/18 20:00 Laboratory Tests 11/20/18 11/21/18 11/28/18 08:30 05:25 05:15 AST 13 L Alkaline Phosphatase 124 H 78 ALT 21 11/30/18 12/04/18 12/08/18 05:30 05:30 05:30 AST 78 H 160 H Alkaline Phosphatase ALT 66 H 190 H 12/09/18 12/13/18 12/16/18 06:00 06:30 05:30 AST 55 H 27 Alkaline Phosphatase 242 H 129 H ALT 48 Assessment/Plan Impression: Multifactorial ileus aggravated by Methadone Abnormal LFTs likely reflect congestive hepatopathy given his episodes of flash pulmonary edema but a DILI cannot be excluded HCV was cured Plan: Relistor 6mg q 48 h Wean off Methadone Mobilize as tolerated Follow LFTs Problem List - Problems (1) Ileus Assessment/Plan: Multifactorial ileus is causing this distension with the foremost problems being methadone and bedridden state. I will start Relistor and decrease his methadone to 30mg daily . I discussed the need to wean him off completely with Napoleon and his family. I emphasized the need to eat more protein and how the supplements should be taken after each meal and qhs. Code(s): K56.7 - ILEUS, UNSPECIFIED (2) Abnormal LFTs (liver function tests) Assessment/Plan: LFTs are normalizing. Relistor is renally excreted and should not tax the liver. Code(s): R94.5 - ABNORMAL RESULTS OF LIVER FUNCTION STUDIES (3) Diabetic gastroparesis Code(s): E11.43 - TYPE 2 DIABETES W DIABETIC AUTONOMIC (POLY)NEUROPATHY; K31.84 - GASTROPARESIS (4) Constipation Code(s): K59.00 - CONSTIPATION, UNSPECIFIED Qualifiers: Constipation type: unspecified constipation type Qualified Code(s): K59.00 - Constipation, unspecified (5) Narcotic dependence Code(s): F11.20 - OPIOID DEPENDENCE, UNCOMPLICATED (6) Multiple myeloma Code(s): C90.00 - MULTIPLE MYELOMA NOT HAVING ACHIEVED REMISSION (7) Vertebral compression fracture Code(s): M48.50XA - COLLAPSED VERTEBRA, NEC, SITE UNSP, INIT (8) Diabetic neuropathy Code(s): E11.40 - TYPE 2 DIABETES MELLITUS WITH DIABETIC NEUROPATHY, UNSP (9) Diabetic retinopathy Code(s): E11.319 - TYPE 2 DIABETES W UNSP DIABETIC RTNOP W/O MACULAR EDEMA (10) History of heroin abuse Code(s): Z87.898 - PERSONAL HISTORY OF OTHER SPECIFIED CONDITIONS (11) History of cocaine abuse Code(s): Z87.898 - PERSONAL HISTORY OF OTHER SPECIFIED CONDITIONS (12) CKD (chronic kidney disease) Code(s): N18.9 - CHRONIC KIDNEY DISEASE, UNSPECIFIED (13) Neuropathy Code(s): G62.9 - POLYNEUROPATHY, UNSPECIFIED (14) Osteomyelitis Code(s): M86.9 - OSTEOMYELITIS, UNSPECIFIED Qualifiers: Osteomyelitis type: subacute Osteomyelitis location: foot (15) Type 2 diabetes mellitus with foot ulcer Code(s): E11.621 - TYPE 2 DIABETES MELLITUS WITH FOOT ULCER; L97.509 - NON- PRESSURE CHRONIC ULCER OTH PRT UNSP FOOT W UNSP SEVERITY Qualifiers: (16) Asthma Code(s): J45.909 - UNSPECIFIED ASTHMA, UNCOMPLICATED (17) Diabetes Code(s): E11.9 - TYPE 2 DIABETES MELLITUS WITHOUT COMPLICATIONS Qualifiers: Diabetes mellitus complication status: with neurologic complications Diabetes mellitus complication detail: with polyneuropathy (18) Hepatitis C Code(s): B19.20 - UNSPECIFIED VIRAL HEPATITIS C WITHOUT HEPATIC COMA
--- NOTE | 2018-12-16 14:39 | PN ---
Progress Note, Physician Chief Complaint: patient seen and examined bladder scan done and sykes reinserted yesterday - Current Medication List Current Medications: Active Medications Acetaminophen (Tylenol -) 500 mg PO Q6H PRN PRN Reason: HEADACHE Last Admin: 12/14/18 22:09 Dose: 500 mg Artificial Tears (Lacri-Lube Eye Ointment -) 1 applic OD HS PRN PRN Reason: DRY EYES Last Admin: 12/10/18 22:49 Dose: 1 applic Aspirin (Asa -) 81 mg NGT DAILY [facility] Last Admin: 12/16/18 09:49 Dose: 81 mg Atorvastatin Calcium (Lipitor -) 80 mg NGT HS [facility] Last Admin: 12/15/18 23:39 Dose: 80 mg Buspirone HCl (Buspar -) 15 mg NGT BID [facility] Last Admin: 12/16/18 09:50 Dose: 15 mg Calcium Carbonate/Cholecalciferol (Os-Kyler 500+D -) 2 tab NGT DAILY [facility] Last Admin: 12/16/18 09:49 Dose: 2 tab Heparin Sodium (Porcine) (Heparin -) 5,000 unit SQ TID [facility] Last Admin: 12/16/18 14:17 Dose: 5,000 unit Dextrose (D5w -) 1,000 mls @ 42 mls/hr IV .[id number] [facility] Insulin Aspart (Novolog Vial Sliding Scale -) 1 vial SQ TIDAC [facility]; Protocol Last Admin: 12/16/18 11:57 Dose: 2 units Insulin Detemir (Levemir Vial) [address] units [address] [facility] Last Admin: 12/15/18 23:46 Dose: 20 units Methadone HCl (Dolophine -) 30 mg NGT DAILY@0600 [facility] Methylnaltrexone [place] (Relistor -) 8 mg SQ Q2D@1000 [facility] Metoprolol Tartrate (Lopressor -) 25 mg PO BID [facility] Last Admin: 12/16/18 09:49 Dose: 25 mg Pantoprazole Sodium (Protonix Packets For Oral Suspension -) 40 mg NGT DAILY [facility] Last Admin: 12/16/18 09:49 Dose: 40 mg Polyethylene Glycol (Miralax (For Daily Use) -) 17 gm PO BID [facility] Last Admin: 12/16/18 09:50 Dose: 17 gm Potassium Chloride (Potassium Chloride Oral Liquid) 10 meq PO BID [facility] Last Admin: 12/16/18 09:49 Dose: 10 meq Tiotropium [place] (Spiriva Respimat) 2 puff IH DAILY [facility] Last Admin: 12/16/18 09:56 Dose: 2 puff Valacyclovir HCl (Valtrex -) 500 mg NGT DAILY [facility] Last Admin: 12/16/18 09:49 Dose: 500 mg - Objective Vital Signs: Vital Signs Temperature 98.0 F 12/16/18 05:00 Pulse Rate 81 12/16/18 05:00 Respiratory Rate 20 12/16/18 09:00 Blood Pressure 107/76 12/16/18 05:00 O2 Sat by Pulse Oximetry (%) 96 12/16/18 09:00 Constitutional: Yes: Calm Cardiovascular: Yes: Regular Rate and Rhythm, S1, S2 Respiratory: Yes: CTA Bilaterally Gastrointestinal: Yes: Soft, Distention Neurological: Yes: Alert, Oriented Labs: CBC, BMP 12/13/18 06:30 12/16/18 05:30 INR, PTT INR 1.49 (0.83-1.09) H 12/10/18 05:15 Fibrinogen > 500.0 mg/dL (238-498) H 11/25/18 20:00 Problem List - Problems (1) Hypernatremia Assessment/Plan: sodium still elevated will trend on ivf Code(s): E87.0 - HYPEROSMOLALITY AND HYPERNATREMIA (2) Abdominal distension Assessment/Plan: GI follow up noted relistor q48 hr and methadone dose decreased to 30mg plan to taper of methadone every week decrease by 10mg abdominal xray show ileus miralax- had bm yesterday Code(s): R14.0 - ABDOMINAL DISTENSION (GASEOUS) (3) Respiratory failure Assessment/Plan: iv lasix bid for pulm edema- improved no off the lasix extubated on bipap- now on venti mask monitor renal function and potassium positve MRSA in sputum,isolation ceftazidime for serratia in sputum- dc Microbiology 12/03/18 11:30 Sputum - Endotrachea Suction/Ventilator Gram Stain - Final 12/03/18 11:30 Sputum - Endotrachea Suction/Ventilator Sputum Culture - Final Serratia Marcescens Code(s): J96.90 - RESPIRATORY FAILURE, UNSP, UNSP W HYPOXIA OR HYPERCAPNIA (4) Vertebral compression fracture Assessment/Plan: radiation oncology and JOSE MANUEL noted to follow up as outpatient Code(s): M48.50XA - COLLAPSED VERTEBRA, NEC, SITE UNSP, INIT (5) Diabetes Assessment/Plan: levemir hgba1c 7.7 Code(s): E11.9 - TYPE 2 DIABETES MELLITUS WITHOUT COMPLICATIONS Qualifiers: Diabetes mellitus type: type 2 (6) Multiple myeloma Assessment/Plan: last treatment was 11/18 Code(s): C90.00 - MULTIPLE MYELOMA NOT HAVING ACHIEVED REMISSION (7) Hypocalcemia Assessment/Plan: now calcium is better calcium tablets Code(s): E83.51 - HYPOCALCEMIA (8) Elevated troponin Assessment/Plan: due to demand ischemia on aspirin and lipitor trending down Code(s): R74.8 - ABNORMAL LEVELS OF OTHER SERUM ENZYMES (9) UTI (urinary tract infection) Assessment/Plan: Microbiology 12/05/18 20:40 Urine - Urine Sykes Urine Culture - Final Escherichia Coli 11/28/18 10:40 Sputum - Endotrachea Suction/Ventilator Gram Stain - Final 11/28/18 10:40 Sputum - Endotrachea Suction/Ventilator Sputum Culture - Final Mr S Aureus ceftazidime for UTI and serratia in sputum- completed Code(s): N39.0 - URINARY TRACT INFECTION, SITE NOT SPECIFIED
--- NOTE | 2018-12-16 15:47 | PN ---
Progress Note (short form) - Note Progress Note: 63 year old male history of HTN,HLD,DM,Hep C, PVD, Opioid abuse on methadone, MM started on chemo. Initially he presented to hospital for abdominal distension adn constipation. During coarse of hospitalization he was intubated and was on abx. Patient is trasnferred to floor from ICU. He was seen by neurosurgery and mri of whole spine was done in oct, no surgical lesion identified. Patient was seen by dr leal for mental status change . Patient is feeling weak and no bowel or bladder incontinence. He denies any sensory loss . He did have hitsory of diabetic neuropathy He also have been confused and primary team is wondering if he suffers from anoxic encephalopathy NEUROLOGICAL Exmination Alert , oriented x 2 and at times he become oriented x 3 eomi, pupils reactive, moving all extremity grade 5- generalized, planter flexion and hip flexion is grade 4- upper extremity grade 5- and elbow extension and shoulder flexion is grade 4- there is frozen shoulder reflex are grade 1 generalized sensation is alton;l gait not tested MRI of C/T/L spine reviewed in chart Neurosurgery adn Previous Neurology note appreciated Assessment/Plan 1.Generalized weakness seems to be deconditioning and critical illness neuropathy, Patient also have history of Diabetic neuropathy and bilateral foot drop. conintue PT and supportive care. Unlikely to be cord compression, continue pt and would do b12,folate tsh. 2. Mental status has improved, but remain delirious , likely to be multifactorial ( critical illness encephalopathy and hypernatremia) , possible Hypoxic encephalopathy, unlikley to be meningitis or stroke. I would obtain mri and eeg for prognosis purpose Thanking you so much Dov Gaston md
[2018-12-16] MEDS: ACETAMINOPHEN 500 MG TABLET (FP) PO PRN (19:01)
--- NOTE | 2018-12-16 20:21 | PN ---
Progress Note (short form) - Note Progress Note: covering dr yanick johnson s/p hypernatremia previous problems 1. hyponatremia 2. CKD 3. nausea and vomiting 4. htn 5. DM 6. 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 multiple myeloma 9. anemia 10. proteinuria 11. s/p hyperkalemia Current Medications Acetaminophen (Tylenol -) 500 mg PO Q6H PRN PRN Reason: HEADACHE Last Admin: 12/16/18 19:01 Dose: 500 mg Artificial Tears (Lacri-Lube Eye Ointment -) 1 applic OD HS PRN PRN Reason: DRY EYES Last Admin: 12/10/18 22:49 Dose: 1 applic Aspirin (Asa -) 81 mg NGT DAILY [facility] Last Admin: 12/16/18 09:49 Dose: 81 mg Atorvastatin Calcium (Lipitor -) 80 mg NGT HS [facility] Last Admin: 12/15/18 23:39 Dose: 80 mg Buspirone HCl (Buspar -) 15 mg NGT BID [facility] Last Admin: 12/16/18 09:50 Dose: 15 mg Calcium Carbonate/Cholecalciferol (Os-[place] 500+D -) 2 tab NGT DAILY [facility] Last Admin: 12/16/18 09:49 Dose: 2 tab Heparin Sodium (Porcine) (Heparin -) 5,000 unit SQ TID [facility] Last Admin: 12/16/18 14:17 Dose: 5,000 unit Dextrose (D5w -) 1,000 mls @ 42 mls/hr IV .[id number] [facility] Insulin Aspart (Novolog Vial Sliding Scale -) 1 vial SQ TIDAC [facility]; Protocol Last Admin: 12/16/18 17:06 Dose: 4 units Insulin Detemir (Levemir Vial) 20 units SQ [facility] Last Admin: 12/15/18 23:46 Dose: 20 units Methadone HCl (Dolophine -) 30 mg NGT DAILY@0600 [facility] Methylnaltrexone [place] (Relistor -) 8 mg SQ Q2D@1000 [facility] Metoprolol Tartrate (Lopressor -) 25 mg PO BID [facility] Last Admin: 12/16/18 09:49 Dose: 25 mg Pantoprazole Sodium (Protonix Packets For Oral Suspension -) 40 mg NGT DAILY [facility] Last Admin: 12/16/18 09:49 Dose: 40 mg Polyethylene Glycol (Miralax (For Daily Use) -) 17 gm PO BID [facility] Last Admin: 12/16/18 09:50 Dose: 17 gm Potassium Chloride (Potassium Chloride Oral Liquid) 10 meq PO BID [facility] Last Admin: 12/16/18 09:49 Dose: 10 meq Tiotropium [place] (Spiriva Respimat) 2 puff IH DAILY [facility] Last Admin: 12/16/18 09:56 Dose: 2 puff Valacyclovir HCl (Valtrex -) 500 mg NGT DAILY [facility] Last Admin: 12/16/18 09:49 Dose: 500 mg Last Vital Signs Temp Pulse Resp BP Pulse Ox 98.3 F 84 18 159/69 96 12/16/18 13:50 12/16/18 13:50 12/16/18 13:50 12/16/18 13:50 12/16/18 09:00 CBC, BMP 12/13/18 06:30 12/16/18 05:30 IMP resp failure heart failure Hyperkalemia - being addressed, will get kayexalate kim on chronic- creat seems to be plateauing Plan follow labs in am
[2018-12-16] MEDS: ATORVASTATIN CA 80 MG TABLET (FP) NGT SCH (21:13)
[2018-12-16] MEDS: INSULIN (LEVEMIR) 100 UNITS/ML UNITS SQ SCH (21:15)
--- NOTE | 2018-12-16 21:22 | PN ---
Progress Note (short form) - Note Progress Note: Nails debirded bedside this am by Dr. Madhu Gamboa my partner covering for me, as per my request.
--- NOTE | 2018-12-16 22:41 | PN ---
Progress Note (short form) - Note Progress Note: Patient seen and examined in icu awake, alert but still with confusion. moving all extremities/following commands AFVSS Cor: RSR, No murmurs, No gallops Lungs: Clear to auscultation anteriorly Abd: Soft, Normal bowel sounds, No organomegaly Ext:chronic stasis dermatitis Labs/meds reviewed A/P 63 y/o patient with multiple coorbidites, HTN, DM, PVD, ? COPD, CKD, recently diagnosed myeloma, vertebral fractures on velcade/cytoxan/dexamethasone/zometa. Admitted with severe constipation and hyponatremia. Was on golytely for constipation and hydration for hyponatremia Developed acute resp. distress and high BPs evening of 11/25 ? flash pulmonary edema + pneumonia CXR-airspace opacities was diuresed and placed on antibiotics + troponins-- not a candidate for agressive cardiac interventions received ceftazidime for UTI and serratia in sputum and vancomycin for MRSA in sputum Myeloma--on velcade/cytoxan/dex --last dose 11/18 On zometa--11/18 treatment on hold light chains decreasing slowly s/p rt to lspine and left acetabular fx Renal impairment improved encephalopathy-- ? multifactorial getting MRI and EMG critical illness neuropathy will discuss with family
[2018-12-17] MEDS: METHADONE HCL 40 MG DISPERSABLE TABLET NGT SCH (06:15)
[2018-12-17] MEDS: INSULIN SLIDING SCALE (NOVOLOG) 1 VIAL SQ SCH ×3 (06:19→17:02)
[2018-12-17] MEDS: HEPARIN NA (PORCINE) 5,000 UNITS/ML 1ML VIAL SQ SCH ×3 (06:19→22:04)
[2018-12-17 06:53] LABS: BASO % 0.6 % (0-2.0); EOS % 3.3 % (0-4.5); HEMATOCRIT 28.4 % (35.4-49); HEMOGLOBIN 9.5 GM/dL (11.7-16.9); LYMPH % 19.9 % (8-40); MCHC 33.5 g/dl (32.0-35.9); MEAN CELL VOLUME 86.5 fl (80-96); MEAN PLT VOLUME 8.9 fl (7.5-11.1); MONO % 4.8 % (3.8-10.2); NEUT % 71.4 % (42.8-82.8); PLATELET COUNT 200 K/MM3 (134-434); RBC 3.28 M/mm3 (4.00-5.60); RDW 17.9 % (11.9-15.9); WHITE BLOOD COUNT 5.7 K/mm3 (4.0-10.0)
[2018-12-17 07:30] LABS: ALBUMIN 2.4 g/dl (3.4-5.0); ALK PHOS 140 U/L (45-117); ANION GAP 7 MMOL/L (8-16); BILIRUBIN,DIRECT 0.1 mg/dL (0.0-0.2); BILIRUBIN,TOTAL 0.5 mg/dL (0.2-1); BLOOD UREA NITROGEN 28 mg/dL (7-18); CALCIUM 7.8 mg/dL (8.5-10.1); CHLORIDE 113 mmol/L (98-107); CO2 23 mmol/L (21-32); CREATININE 1.3 mg/dL (0.55-1.3); GLUCOSE,RANDOM 162 mg/dL (74-106); POTASSIUM 4.8 mmol/L (3.5-5.1); SGOT/AST 27 U/L (15-37); SGPT/ALT 42 U/L (13-61); SODIUM 143 mmol/L (136-145)
[2018-12-17] MEDS ORDERED: PT OWN MED DRAWER 7, Y5N ONE ×2 (09:57→21:51)
[2018-12-17] MEDS: ASPIRIN 81 MG CHEWABLE TABLETS NGT SCH (09:58)
[2018-12-17] MEDS: CALCIUM 500MG/VIT-D 200 UNITS COMBO TABLET (FP) NGT SCH (09:58)
[2018-12-17] MEDS: PANTOPRAZOLE SOD 40 MG SUSPENSION PACKET NGT SCH (09:58)
[2018-12-17] MEDS: METOPROLOL TARTRATE 25 MG TABLET (FP) PO SCH ×2 (09:59→22:03)
[2018-12-17] MEDS: valACYclovir HCL 500 MG TABLET (FP) NGT SCH (09:59)
[2018-12-17] MEDS: POLYETHYLENE GLYCOL 3350 119 GM BTL PO SCH ×2 (10:01→22:04)
[2018-12-17] MEDS: POTASSIUM CHLORIDE ORAL LIQUID 20 MEQ/15 ML PO SCH ×2 (10:02→22:04)
[2018-12-17] MEDS: busPIRone HCL 5 MG TABLET NGT SCH ×2 (10:02→22:04)
[2018-12-17] MEDS: TIOTROPIUM BROMIDE 2.5 MCG (SPIRIVA) RESPIMAT INHALER IH SCH (10:03)
--- NOTE | 2018-12-17 10:11 | PN ---
Progress Note (short form) - Note Progress Note: 63 year old male history of HTN,HLD,DM,Hep C, PVD, Opioid abuse on methadone, MM started on chemo. Initially he presented to hospital for abdominal distension adn constipation. During coarse of hospitalization he was intubated and was on abx. Patient is trasnferred to floor from ICU. He was seen by neurosurgery and mri of whole spine was done in oct, no surgical lesion identified. Patient was seen by dr leal for mental status change . Patient is feeling weak and no bowel or bladder incontinence. He denies any sensory loss . He did have hitsory of diabetic neuropathy No new complain and he remains confused NEUROLOGICAL Exmination Alert , oriented x 2 and at times he become oriented x 3 eomi, pupils reactive, moving all extremity grade 5- generalized, planter flexion and hip flexion is grade 4- upper extremity grade 5- and elbow extension and shoulder flexion is grade 4- there is frozen shoulder reflex are grade 1 generalized sensation is alton;l gait not tested MRI of C/T/L spine reviewed in chart Neurosurgery adn Previous Neurology note appreciated mri of brain and eeg pending Assessment/Plan 1.Generalized weakness seems to be deconditioning and critical illness neuropathy, Patient also have history of Diabetic neuropathy and bilateral foot drop. conintue PT and supportive care. Unlikely to be cord compression, continue pt and would do b12,folate tsh. 2. Mental status has improved, but remain delirious , likely to be multifactorial ( critical illness encephalopathy and hypernatremia) , possible Hypoxic encephalopathy, unlikley to be meningitis or stroke. mri of brain and eeg pending Thanking you so much Dov Gaston md
[2018-12-17] MEDS ORDERED: INSULIN SLIDING SCALE (NOVOLOG) 1 VIAL SQ ONE (12:04)
--- NOTE | 2018-12-17 14:20 | PN ---
Progress Note (short form) - Note Progress Note: covering dr yanick johnson s/p hypernatremia previous problems 1. hyponatremia 2. CKD 3. nausea and vomiting 4. htn 5. DM 6. 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 multiple myeloma 9. anemia 10. proteinuria 11. s/p hyperkalemia Current Medications Acetaminophen (Tylenol -) 500 mg PO Q6H PRN PRN Reason: HEADACHE Last Admin: 12/16/18 19:01 Dose: 500 mg Artificial Tears (Lacri-Lube Eye Ointment -) 1 applic OD HS PRN PRN Reason: DRY EYES Last Admin: 12/10/18 22:49 Dose: 1 applic Aspirin (Asa -) 81 mg NGT DAILY [facility] Last Admin: 12/17/18 09:58 Dose: 81 mg Atorvastatin Calcium (Lipitor -) 80 mg NGT HS [facility] Last Admin: 12/16/18 21:13 Dose: 80 mg Buspirone HCl (Buspar -) 15 mg NGT BID [facility] Last Admin: 12/17/18 10:02 Dose: 15 mg Calcium Carbonate/Cholecalciferol (Os-[place] 500+D -) 2 tab NGT DAILY [facility] Last Admin: 12/17/18 09:58 Dose: 2 tab Heparin Sodium (Porcine) (Heparin -) 5,000 unit SQ TID [facility] Last Admin: 12/17/18 13:41 Dose: 5,000 unit Dextrose (D5w -) 1,000 mls @ 42 mls/hr IV .[id number] [facility] Insulin Aspart (Novolog Vial Sliding Scale -) 1 vial SQ TIDAC [facility]; Protocol Last Admin: 12/17/18 12:04 Dose: 4 units Insulin Detemir (Levemir Vial) 20 units SQ HS [facility] Last Admin: 12/16/18 21:15 Dose: 20 units Lactic Acid (Lac-Hydrin 12) 1 applic TP BID PRN PRN Reason: xerosis Methadone HCl (Dolophine -) 30 mg NGT DAILY@0600 [facility] Last Admin: 12/17/18 06:15 Dose: 30 mg Methylnaltrexone [place] (Relistor -) 8 mg SQ Q2D@1000 [facility] Metoprolol Tartrate (Lopressor -) 25 mg PO BID [facility] Last Admin: 12/17/18 09:59 Dose: 25 mg Pantoprazole Sodium (Protonix Packets For Oral Suspension -) 40 mg NGT DAILY [facility] Last Admin: 12/17/18 09:58 Dose: 40 mg Polyethylene Glycol (Miralax (For Daily Use) -) 17 gm PO BID [facility] Last Admin: 12/17/18 10:01 Dose: 17 gm Potassium Chloride (Potassium Chloride Oral Liquid) 10 meq PO BID [facility] Last Admin: 12/17/18 10:02 Dose: 10 meq Tiotropium [place] (Spiriva Respimat) 2 puff IH DAILY [facility] Last Admin: 12/17/18 10:03 Dose: 2 puff Valacyclovir HCl (Valtrex -) 500 mg NGT DAILY [facility] Last Admin: 12/17/18 09:59 Dose: 500 mg Last Vital Signs Temp Pulse Resp BP Pulse Ox 97.7 F 88 18 131/83 96 12/17/18 13:29 12/17/18 13:29 12/17/18 13:29 12/17/18 13:29 12/17/18 09:00 Lungs clear Heart reg Abd soft nontender Ext no edema CBC, BMP 12/17/18 05:50 12/17/18 06:15 CBC, BMP 12/13/18 06:30 12/16/18 05:30 IMP s/p resp failure- resolved heart failure Hyperkalemia - being addressed, will get kayexalate kim on chronic- creat seems to be plateauing Plan follow labs in am
--- NOTE | 2018-12-17 14:50 | PN ---
Progress Note (short form) - Note Progress Note: PULMONARY Breathing continues to improve. No cough or wheezing. Vital Signs Period Temp Pulse Resp BP Sys/Andre Pulse Ox Last 24 Hr 97.7 F-98.4 F 84-90 18-18 130-154/30-86 96-97 Gen: NAD at rest Heart: RRR Lung: decreased breath sounds at the bases Abd: soft, nontender Ext: no edema CBC, BMP 12/17/18 05:50 12/17/18 06:15 Active Medications Acetaminophen (Tylenol -) 500 mg PO Q6H PRN PRN Reason: HEADACHE Last Admin: 12/16/18 19:01 Dose: 500 mg Artificial Tears (Lacri-Lube Eye Ointment -) 1 applic OD HS PRN PRN Reason: DRY EYES Last Admin: 12/10/18 22:49 Dose: 1 applic Aspirin (Asa -) 81 mg NGT DAILY [facility] Last Admin: 12/17/18 09:58 Dose: 81 mg Atorvastatin Calcium (Lipitor -) 80 mg NGT HS [facility] Last Admin: 12/16/18 21:13 Dose: 80 mg Buspirone HCl (Buspar -) 15 mg NGT BID [facility] Last Admin: 12/17/18 10:02 Dose: 15 mg Calcium Carbonate/Cholecalciferol (Os-Kyler 500+D -) 2 tab NGT DAILY [facility] Last Admin: 12/17/18 09:58 Dose: 2 tab Heparin Sodium (Porcine) (Heparin -) 5,000 unit SQ TID [facility] Last Admin: 12/17/18 13:41 Dose: 5,000 unit Dextrose (D5w -) 1,000 mls @ 42 mls/hr IV .[id number] [facility] Insulin Aspart (Novolog Vial Sliding Scale -) 1 vial SQ TIDAC [facility]; Protocol Last Admin: 12/17/18 12:04 Dose: 4 units Insulin Detemir (Levemir Vial) 20 units SQ HS [facility] Last Admin: 12/16/18 21:15 Dose: 20 units Lactic Acid (Lac-Hydrin 12) 1 applic TP BID PRN PRN Reason: xerosis Methadone HCl (Dolophine -) 30 mg NGT DAILY@0600 [facility] Last Admin: 12/17/18 06:15 Dose: 30 mg Methylnaltrexone [place] (Relistor -) 8 mg SQ Q2D@1000 [facility] Metoprolol Tartrate (Lopressor -) 25 mg PO BID [facility] Last Admin: 12/17/18 09:59 Dose: 25 mg Pantoprazole Sodium (Protonix Packets For Oral Suspension -) 40 mg NGT DAILY [facility] Last Admin: 12/17/18 09:58 Dose: 40 mg Polyethylene Glycol (Miralax (For Daily Use) -) 17 gm PO BID [facility] Last Admin: 12/17/18 10:01 Dose: 17 gm Potassium Chloride (Potassium Chloride Oral Liquid) 10 meq PO BID [facility] Last Admin: 12/17/18 10:02 Dose: 10 meq Tiotropium [place] (Spiriva Respimat) 2 puff IH DAILY [facility] Last Admin: 12/17/18 10:03 Dose: 2 puff Valacyclovir HCl (Valtrex -) 500 mg NGT DAILY [facility] Last Admin: 12/17/18 09:59 Dose: 500 mg A/P Acute Hypoxic and Hypercapneic Respiratory Failure improving Acute Pulmonary Edema resolving Acute NSTEMI r/o Pneumonia UTI Acute on Chronic Renal Failure HTN DM COPD Methadone Maintenance - completed antibiotics - lasix as needed - monitor urine output, creatinine - ASA - inhaled bronchodilators - aspiration precautions - rehab/PT - DVT prophylaxis
--- NOTE | 2018-12-17 16:31 | PN ---
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 myeloma anemia proteinuria s/p hyperkalemia s/p extubation Acute respiratory failure History of Present Illness: NAD lethargic family at bedside - Current Medication List Current Medications: Active Medications Acetaminophen (Tylenol -) 500 mg PO Q6H PRN PRN Reason: HEADACHE Last Admin: 12/16/18 19:01 Dose: 500 mg Artificial Tears (Lacri-Lube Eye Ointment -) 1 applic OD HS PRN PRN Reason: DRY EYES Last Admin: 12/10/18 22:49 Dose: 1 applic Aspirin (Asa -) 81 mg NGT DAILY [facility] Last Admin: 12/17/18 09:58 Dose: 81 mg Atorvastatin Calcium (Lipitor -) 80 mg NGT HS [facility] Last Admin: 12/16/18 21:13 Dose: 80 mg Buspirone HCl (Buspar -) 15 mg NGT BID [facility] Last Admin: 12/17/18 10:02 Dose: 15 mg Calcium Carbonate/Cholecalciferol (Os-Kyler 500+D -) 2 tab NGT DAILY [facility] Last Admin: 12/17/18 09:58 Dose: 2 tab Heparin Sodium (Porcine) (Heparin -) 5,000 unit SQ TID [facility] Last Admin: 12/17/18 13:41 Dose: 5,000 unit Dextrose (D5w -) 1,000 mls @ 42 mls/hr IV .[id number] [facility] Insulin Aspart (Novolog Vial Sliding Scale -) 1 vial SQ TIDAC [facility]; Protocol Last Admin: 12/17/18 12:04 Dose: 4 units Insulin Detemir (Levemir Vial) 20 units SQ [facility] Last Admin: 12/16/18 21:15 Dose: 20 units Lactic Acid (Lac-Hydrin 12) 1 applic TP BID PRN PRN Reason: xerosis Methadone HCl (Dolophine -) 30 mg NGT DAILY@0600 [facility] Last Admin: 12/17/18 06:15 Dose: 30 mg Methylnaltrexone [place] (Relistor -) 8 mg SQ Q2D@1000 [facility] Metoprolol Tartrate (Lopressor -) 25 mg PO BID [facility] Last Admin: 12/17/18 09:59 Dose: 25 mg Pantoprazole Sodium (Protonix Packets For Oral Suspension -) 40 mg NGT DAILY [facility] Last Admin: 12/17/18 09:58 Dose: 40 mg Polyethylene Glycol (Miralax (For Daily Use) -) 17 gm PO BID [facility] Last Admin: 12/17/18 10:01 Dose: 17 gm Potassium Chloride (Potassium Chloride Oral Liquid) 10 meq PO BID [facility] Last Admin: 12/17/18 10:02 Dose: 10 meq Tiotropium [place] (Spiriva Respimat) 2 puff IH DAILY [facility] Last Admin: 12/17/18 10:03 Dose: 2 puff Valacyclovir HCl (Valtrex -) 500 mg NGT DAILY [facility] Last Admin: 12/17/18 09:59 Dose: 500 mg - Objective Vital Signs: Vital Signs Temperature 97.7 F 12/17/18 13:29 Pulse Rate 88 12/17/18 13:29 Respiratory Rate 18 12/17/18 13:29 Blood Pressure 131/83 12/17/18 13:29 O2 Sat by Pulse Oximetry (%) 96 12/17/18 09:00 Constitutional: Yes: Well Nourished, No Distress, Calm Cardiovascular: Yes: Regular Rate and Rhythm Respiratory: Yes: Regular Gastrointestinal: Yes: Normal Bowel Sounds, Soft, Abdomen, Obese Musculoskeletal: Yes: Muscle Weakness Extremities: Yes: WNL Edema: No Peripheral Pulses WNL: Yes Neurological: Yes: Alert, Lethargy Psychiatric: Yes: Alert Labs: CBC, BMP 12/17/18 05:50 12/17/18 06:15 INR, PTT INR 1.49 (0.83-1.09) H 12/10/18 05:15 Fibrinogen > 500.0 mg/dL (238-498) H 11/25/18 20:00 Problem List - Problems (1) Anemia Assessment/Plan: -H/H trend stable -Iron defiscient -thyroid profile, B12, FA unremarkable -monitor trend -Repeat Guaiac positive, 2/2 to constipation? -Seen by hematology+ GI Code(s): D64.9 - ANEMIA, UNSPECIFIED (2) CKD (chronic kidney disease) Assessment/Plan: -improved -nephrology on board -monitor trend Code(s): N18.9 - CHRONIC KIDNEY DISEASE, UNSPECIFIED (3) Diabetes Assessment/Plan: -bgm ac hs -A1c at 7.7 -Insulin: Novolog+Levemir -RD on board -endocrinology consult Code(s): E11.9 - TYPE 2 DIABETES MELLITUS WITHOUT COMPLICATIONS Qualifiers: Diabetes mellitus type: type 2 (4) Elevated troponin Assessment/Plan: -resolved -tele monitoring -Seen by Cardiology -echo reviewed Code(s): R74.8 - ABNORMAL LEVELS OF OTHER SERUM ENZYMES (5) Multiple myeloma Assessment/Plan: -Oncology on board Code(s): C90.00 - MULTIPLE MYELOMA NOT HAVING ACHIEVED REMISSION (6) Pulmonary congestion Assessment/Plan: -Furosemide as needed -Cardiology+Pulmonary on board Code(s): R09.89 - OTH SYMPTOMS AND SIGNS INVOLVING THE CIRC AND RESP SYSTEMS (7) Respiratory failure Assessment/Plan: -pulmonary consult -bronchodilators -ID on board -O2 to keep Spo2>90% Code(s): J96.90 - RESPIRATORY FAILURE, UNSP, UNSP W HYPOXIA OR HYPERCAPNIA Assessment/Plan see problem list Physical therapy
[2018-12-17] MEDS ORDERED: IRON SUCROSE INJECTION 300 MG in SODIUM CHLORIDE 235 ML IVPB ONE (16:45)
--- NOTE | 2018-12-17 18:44 | PN ---
Progress Note, Physician Chief Complaint: Multiple myeloma History of Present Illness: Reports that breathing is better. Feels that he has a cold. Denies pain. - Current Medication List Current Medications: Active Medications Acetaminophen (Tylenol -) 500 mg PO Q6H PRN PRN Reason: HEADACHE Last Admin: 12/16/18 19:01 Dose: 500 mg Artificial Tears (Lacri-Lube Eye Ointment -) 1 applic OD HS PRN PRN Reason: DRY EYES Last Admin: 12/10/18 22:49 Dose: 1 applic Aspirin (Asa -) 81 mg NGT DAILY [facility] Last Admin: 12/17/18 09:58 Dose: 81 mg Atorvastatin Calcium (Lipitor -) 80 mg NGT HS [facility] Last Admin: 12/16/18 21:13 Dose: 80 mg Buspirone HCl (Buspar -) 15 mg NGT BID [facility] Last Admin: 12/17/18 10:02 Dose: 15 mg Calcium Carbonate/Cholecalciferol (Os-Kyler 500+D -) 2 tab NGT DAILY [facility] Last Admin: 12/17/18 09:58 Dose: 2 tab Heparin Sodium (Porcine) (Heparin -) 5,000 unit SQ TID [facility] Last Admin: 12/17/18 13:41 Dose: 5,000 unit Dextrose (D5w -) 1,000 mls @ 42 mls/hr IV .[id number] [facility] Insulin Aspart (Novolog Vial Sliding Scale -) 1 vial SQ TIDAC [facility]; Protocol Last Admin: 12/17/18 17:02 Dose: 4 units Insulin Detemir (Levemir Vial) 20 units SQ [facility] Last Admin: 12/16/18 21:15 Dose: 20 units Lactic Acid (Lac-Hydrin 12) 1 applic TP BID PRN PRN Reason: xerosis Methadone HCl (Dolophine -) 30 mg NGT DAILY@0600 [facility] Last Admin: 12/17/18 06:15 Dose: 30 mg Methylnaltrexone [place] (Relistor -) 8 mg SQ Q2D@1000 [facility] Metoprolol Tartrate (Lopressor -) 25 mg PO BID [facility] Last Admin: 12/17/18 09:59 Dose: 25 mg Pantoprazole Sodium (Protonix Packets For Oral Suspension -) 40 mg NGT DAILY [facility] Last Admin: 12/17/18 09:58 Dose: 40 mg Polyethylene Glycol (Miralax (For Daily Use) -) 17 gm PO BID [facility] Last Admin: 12/17/18 10:01 Dose: 17 gm Potassium Chloride (Potassium Chloride Oral Liquid) 10 meq PO BID [facility] Last Admin: 12/17/18 10:02 Dose: 10 meq Tiotropium [place] (Spiriva Respimat) 2 puff IH DAILY [facility] Last Admin: 12/17/18 10:03 Dose: 2 puff Valacyclovir HCl (Valtrex -) 500 mg NGT DAILY [facility] Last Admin: 12/17/18 09:59 Dose: 500 mg - Objective Vital Signs: Vital Signs Temperature 97.7 F 12/17/18 13:29 Pulse Rate 88 12/17/18 13:29 Respiratory Rate 18 12/17/18 13:29 Blood Pressure 131/83 12/17/18 13:29 O2 Sat by Pulse Oximetry (%) 96 12/17/18 09:00 Constitutional: Yes: Well Nourished Eyes: Yes: Conjunctiva Clear Cardiovascular: Yes: WNL, Regular Rate and Rhythm Respiratory: Yes: WNL, CTA Bilaterally Edema: No Neurological: Yes: Alert, Oriented (to place but not time) Labs: CBC, BMP 12/17/18 05:50 12/17/18 06:15 INR, PTT INR 1.49 (0.83-1.09) H 12/10/18 05:15 Fibrinogen > 500.0 mg/dL (238-498) H 11/25/18 20:00 Assessment/Plan 63M with HTN, DM, PVD, ? COPD, CKD, recently diagnosed myeloma, with vertebral fractures s/p RT to l-spine and l. acetabular fx, on velcade/cytoxan/ dexamethasone/zometa (last 11/18/18), admitted with severe constipation and hyponatremia. Hospital course c/b acute respiratory failure, in the setting of severe hypertension, requiring intubation. Thought to have flash pulmonary edema vs. ARDS. Now extubated. Generalized weakness thought to be due to deconditioning and neuropathy of critical illness. Undergoing evaluation for persistent confusion. MM treatment on hold. Will continue to follow
[2018-12-17] MEDS: ACETAMINOPHEN 500 MG TABLET (FP) PO PRN (22:03)
[2018-12-17] MEDS: ATORVASTATIN CA 80 MG TABLET (FP) NGT SCH (22:04)
[2018-12-17] MEDS: INSULIN (LEVEMIR) 100 UNITS/ML UNITS SQ SCH (22:04)
[2018-12-18] MEDS: METHADONE HCL 40 MG DISPERSABLE TABLET NGT SCH (05:38)
[2018-12-18] MEDS: HEPARIN NA (PORCINE) 5,000 UNITS/ML 1ML VIAL SQ SCH ×3 (05:38→23:14)
[2018-12-18] MEDS: INSULIN SLIDING SCALE (NOVOLOG) 1 VIAL SQ SCH ×3 (06:21→17:09)
[2018-12-18] MEDS ORDERED: PT OWN MED DRAWER 7, Y5N ONE ×4 (09:41→23:18)
[2018-12-18] MEDS: METOPROLOL TARTRATE 25 MG TABLET (FP) PO SCH ×2 (09:57→23:16)
[2018-12-18] MEDS: POTASSIUM CHLORIDE ORAL LIQUID 20 MEQ/15 ML PO SCH ×2 (09:57→23:14)
[2018-12-18] MEDS: ASPIRIN 81 MG CHEWABLE TABLETS NGT SCH (09:57)
[2018-12-18] MEDS: CALCIUM 500MG/VIT-D 200 UNITS COMBO TABLET (FP) NGT SCH (09:57)
[2018-12-18] MEDS: valACYclovir HCL 500 MG TABLET (FP) NGT SCH (09:57)
[2018-12-18] MEDS: PANTOPRAZOLE SOD 40 MG SUSPENSION PACKET NGT SCH (09:57)
[2018-12-18] MEDS: Methylnaltrexone Bromide 12 MG/0.6 ML KIT SQ SCH (10:05)
[2018-12-18] MEDS: POLYETHYLENE GLYCOL 3350 119 GM BTL PO SCH ×2 (10:05→23:16)
[2018-12-18] MEDS: busPIRone HCL 5 MG TABLET NGT SCH ×2 (10:05→23:15)
[2018-12-18] MEDS: TIOTROPIUM BROMIDE 2.5 MCG (SPIRIVA) RESPIMAT INHALER IH SCH (10:16)
[2018-12-18] MEDS: AMMONIUM LACTATE 12% LOTION 225 GM BOTTLE TP PRN (10:17)
--- NOTE | 2018-12-18 10:33 | PN ---
Progress Note (short form) - Note Progress Note: 63 year old male history of HTN,HLD,DM,Hep C, PVD, Opioid abuse on methadone, MM started on chemo. Initially he presented to hospital for abdominal distension adn constipation. During coarse of hospitalization he was intubated and was on abx. Patient is trasnferred to floor from ICU. He was seen by neurosurgery and mri of whole spine was done in oct, no surgical lesion identified. Initially,Patient was seen by dr leal for mental status change . Patient is feeling weak and no bowel or bladder incontinence. He denies any sensory loss . He did have hitsory of diabetic neuropathy Patient remains confused and could not get mri as questionnaire could not be filled . NEUROLOGICAL Exmination Alert , oriented x 2, he do not know the date today eomi, pupils reactive, moving all extremity grade 5- generalized, planter flexion and hip flexion is grade 4- upper extremity grade 5- and elbow extension and shoulder flexion is grade 4- there is frozen shoulder reflex are grade 1 generalized sensation is alton;l gait not tested MRI of C/T/L spine reviewed in chart Neurosurgery adn Previous Neurology note appreciated mri of brain and eeg pending Assessment/Plan 1.Generalized weakness seems to be deconditioning and critical illness neuropathy, Patient also have history of Diabetic neuropathy and bilateral foot drop. conintue PT and supportive care. Unlikely to be cord compression. 2. Mental status has improved, but remain delirious , likely to be multifactorial ( critical illness encephalopathy and hypernatremia) , possible Hypoxic encephalopathy, unlikley to be meningitis or stroke. mri of brain and eeg pending Thanking you so much Dov Gaston md
--- NOTE | 2018-12-18 12:08 | PN ---
Progress Note (short form) - Note Progress Note: PULMONARY Sleeping but arousable. Denies shortness of breath. Vital Signs Period Temp Pulse Resp BP Sys/Andre Pulse Ox Last 24 Hr 97.2 F-98.6 F 84-94 18-20 109-145/68-88 98-98 Gen: NAD at rest Heart: RRR Lung: decreased breath sounds at the bases Abd: soft, nontender Ext: no edema CBC, BMP 12/17/18 05:50 12/17/18 06:15 Active Medications Acetaminophen (Tylenol -) 500 mg PO Q6H PRN PRN Reason: HEADACHE Last Admin: 12/17/18 22:03 Dose: 500 mg Artificial Tears (Lacri-Lube Eye Ointment -) 1 applic OD HS PRN PRN Reason: DRY EYES Last Admin: 12/10/18 22:49 Dose: 1 applic Aspirin (Asa -) 81 mg NGT DAILY [facility] Last Admin: 12/18/18 09:57 Dose: 81 mg Atorvastatin Calcium (Lipitor -) 80 mg NGT HS [facility] Last Admin: 12/17/18 22:04 Dose: 80 mg Buspirone HCl (Buspar -) 15 mg NGT BID [facility] Last Admin: 12/18/18 10:05 Dose: 15 mg Calcium Carbonate/Cholecalciferol (Os-Kyler 500+D -) 2 tab NGT DAILY [facility] Last Admin: 12/18/18 09:57 Dose: 2 tab Heparin Sodium (Porcine) (Heparin -) 5,000 unit SQ TID [facility] Last Admin: 12/18/18 05:38 Dose: 5,000 unit Dextrose (D5w -) 1,000 mls @ 42 mls/hr IV .[id number] [facility] Insulin Aspart (Novolog Vial Sliding Scale -) 1 vial SQ TIDAC [facility]; Protocol Last Admin: 12/18/18 06:21 Dose: Not Given Insulin Detemir (Levemir Vial) 20 units SQ HS [facility] Last Admin: 12/17/18 22:04 Dose: 20 units Lactic Acid (Lac-Hydrin 12) 1 applic TP BID PRN PRN Reason: xerosis Last Admin: 12/18/18 10:17 Dose: 1 applic Methadone HCl (Dolophine -) 30 mg NGT DAILY@0600 [facility] Last Admin: 12/18/18 05:38 Dose: 30 mg Methylnaltrexone [place] (Relistor -) 8 mg SQ Q2D@1000 [facility] Last Admin: 12/18/18 10:05 Dose: 8 mg Metoprolol Tartrate (Lopressor -) 25 mg PO BID [facility] Last Admin: 12/18/18 09:57 Dose: 25 mg Pantoprazole Sodium (Protonix Packets For Oral Suspension -) 40 mg NGT DAILY [facility] Last Admin: 12/18/18 09:57 Dose: 40 mg Polyethylene Glycol (Miralax (For Daily Use) -) 17 gm PO BID [facility] Last Admin: 12/18/18 10:05 Dose: 17 gm Potassium Chloride (Potassium Chloride Oral Liquid) 10 meq PO BID [facility] Last Admin: 12/18/18 09:57 Dose: 10 meq Tiotropium [place] (Spiriva Respimat) 2 puff IH DAILY [facility] Last Admin: 12/18/18 10:16 Dose: 2 puff Valacyclovir HCl (Valtrex -) 500 mg NGT DAILY [facility] Last Admin: 12/18/18 09:57 Dose: 500 mg A/P Acute Hypoxic and Hypercapneic Respiratory Failure improving Acute Pulmonary Edema resolving Acute NSTEMI r/o Pneumonia UTI Acute on Chronic Renal Failure HTN DM COPD Methadone Maintenance - completed antibiotics - lasix as needed - monitor urine output, creatinine - ASA - inhaled bronchodilators - aspiration precautions - rehab/PT - DVT prophylaxis
--- NOTE | 2018-12-18 16:41 | PN ---
Progress Note (short form) - Note Progress Note: covering dr yanick johnson s/p hypernatremia previous problems 1. hyponatremia 2. CKD 3. nausea and vomiting 4. htn 5. DM 6. 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 multiple myeloma 9. anemia 10. proteinuria 11. s/p hyperkalemia Current Medications Acetaminophen (Tylenol -) 500 mg PO Q6H PRN PRN Reason: HEADACHE Last Admin: 12/16/18 19:01 Dose: 500 mg Artificial Tears (Lacri-Lube Eye Ointment -) 1 applic OD HS PRN PRN Reason: DRY EYES Last Admin: 12/10/18 22:49 Dose: 1 applic Aspirin (Asa -) 81 mg NGT DAILY [facility] Last Admin: 12/17/18 09:58 Dose: 81 mg Atorvastatin Calcium (Lipitor -) 80 mg NGT HS [facility] Last Admin: 12/16/18 21:13 Dose: 80 mg Buspirone HCl (Buspar -) 15 mg NGT BID [facility] Last Admin: 12/17/18 10:02 Dose: 15 mg Calcium Carbonate/Cholecalciferol (Os-Kyler 500+D -) 2 tab NGT DAILY [facility] Last Admin: 12/17/18 09:58 Dose: 2 tab Heparin Sodium (Porcine) (Heparin -) 5,000 unit SQ TID [facility] Last Admin: 12/17/18 13:41 Dose: 5,000 unit Dextrose (D5w -) 1,000 mls @ 42 mls/hr IV .[id number] [facility] Insulin Aspart (Novolog Vial Sliding Scale -) 1 vial SQ TIDAC [facility]; Protocol Last Admin: 12/17/18 12:04 Dose: 4 units Insulin Detemir (Levemir Vial) 20 units SQ HS [facility] Last Admin: 12/16/18 21:15 Dose: 20 units Lactic Acid (Lac-Hydrin 12) 1 applic TP BID PRN PRN Reason: xerosis Methadone HCl (Dolophine -) 30 mg NGT DAILY@0600 [facility] Last Admin: 12/17/18 06:15 Dose: 30 mg Methylnaltrexone [place] (Relistor -) 8 mg SQ Q2D@1000 [facility] Metoprolol Tartrate (Lopressor -) 25 mg PO BID [facility] Last Admin: 12/17/18 09:59 Dose: 25 mg Pantoprazole Sodium (Protonix Packets For Oral Suspension -) 40 mg NGT DAILY [facility] Last Admin: 12/17/18 09:58 Dose: 40 mg Polyethylene Glycol (Miralax (For Daily Use) -) 17 gm PO BID [facility] Last Admin: 12/17/18 10:01 Dose: 17 gm Potassium Chloride (Potassium Chloride Oral Liquid) 10 meq PO BID [facility] Last Admin: 12/17/18 10:02 Dose: 10 meq Tiotropium [place] (Spiriva Respimat) 2 puff IH DAILY [facility] Last Admin: 12/17/18 10:03 Dose: 2 puff Valacyclovir HCl (Valtrex -) 500 mg NGT DAILY [facility] Last Admin: 12/17/18 09:59 Dose: 500 mg Last Vital Signs Temp Pulse Resp BP Pulse Ox 98.5 F 95 H 18 148/92 98 12/18/18 14:00 12/18/18 14:00 12/18/18 14:00 12/18/18 14:00 12/18/18 08:48 Lungs clear Heart reg Abd soft nontender Ext no edema CBC, BMP 12/17/18 05:50 12/17/18 06:15 CBC, BMP 12/13/18 06:30 12/16/18 05:30 IMP s/p resp failure- resolved heart failure Hyperkalemia - being addressed, will get kayexalate kim on chronic- creat seems to be plateauing no labs Plan follow labs in am
--- NOTE | 2018-12-18 16:54 | PN ---
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 myeloma anemia proteinuria s/p hyperkalemia s/p extubation Acute respiratory failure History of Present Illness: NAD lethargic family at bedside - Current Medication List Current Medications: Active Medications Acetaminophen (Tylenol -) 500 mg PO Q6H PRN PRN Reason: HEADACHE Last Admin: 12/17/18 22:03 Dose: 500 mg Artificial Tears (Lacri-Lube Eye Ointment -) 1 applic OD HS PRN PRN Reason: DRY EYES Last Admin: 12/10/18 22:49 Dose: 1 applic Aspirin (Asa -) 81 mg NGT DAILY [facility] Last Admin: 12/18/18 09:57 Dose: 81 mg Atorvastatin Calcium (Lipitor -) 80 mg NGT HS [facility] Last Admin: 12/17/18 22:04 Dose: 80 mg Buspirone HCl (Buspar -) 15 mg NGT BID [facility] Last Admin: 12/18/18 10:05 Dose: 15 mg Calcium Carbonate/Cholecalciferol (Os-Kyler 500+D -) 2 tab NGT DAILY [facility] Last Admin: 12/18/18 09:57 Dose: 2 tab Heparin Sodium (Porcine) (Heparin -) 5,000 unit SQ TID [facility] Last Admin: 12/18/18 14:50 Dose: 5,000 unit Dextrose (D5w -) 1,000 mls @ 42 mls/hr IV .[id number] [facility] Insulin Aspart (Novolog Vial Sliding Scale -) 1 vial SQ TIDAC [facility]; Protocol Last Admin: 12/18/18 12:14 Dose: 4 units Insulin Detemir (Levemir Vial) 20 units SQ [facility] Last Admin: 12/17/18 22:04 Dose: 20 units Lactic Acid (Lac-Hydrin 12) 1 applic TP BID PRN PRN Reason: xerosis Last Admin: 12/18/18 10:17 Dose: 1 applic Methadone HCl (Dolophine -) 30 mg NGT DAILY@0600 [facility] Last Admin: 12/18/18 05:38 Dose: 30 mg Methylnaltrexone [place] (Relistor -) 8 mg SQ Q2D@1000 [facility] Last Admin: 12/18/18 10:05 Dose: 8 mg Metoprolol Tartrate (Lopressor -) 25 mg PO BID [facility] Last Admin: 12/18/18 09:57 Dose: 25 mg Pantoprazole Sodium (Protonix Packets For Oral Suspension -) 40 mg NGT DAILY [facility] Last Admin: 12/18/18 09:57 Dose: 40 mg Polyethylene Glycol (Miralax (For Daily Use) -) 17 gm PO BID [facility] Last Admin: 12/18/18 10:05 Dose: 17 gm Potassium Chloride (Potassium Chloride Oral Liquid) 10 meq PO BID [facility] Last Admin: 12/18/18 09:57 Dose: 10 meq Tamsulosin HCl (Flomax -) 0.4 mg PO DAILY@0830 [facility] Tiotropium [place] (Spiriva Respimat) 2 puff IH DAILY [facility] Last Admin: 12/18/18 10:16 Dose: 2 puff Valacyclovir HCl (Valtrex -) 500 mg NGT DAILY [facility] Last Admin: 12/18/18 09:57 Dose: 500 mg - Objective Vital Signs: Vital Signs Temperature 98.5 F 12/18/18 14:00 Pulse Rate 95 H 12/18/18 14:00 Respiratory Rate 18 12/18/18 14:00 Blood Pressure 148/92 12/18/18 14:00 O2 Sat by Pulse Oximetry (%) 98 12/18/18 08:48 Constitutional: Yes: Well Nourished, No Distress, Calm Cardiovascular: Yes: Regular Rate and Rhythm Respiratory: Yes: Regular Gastrointestinal: Yes: Normal Bowel Sounds, Soft Musculoskeletal: Yes: WNL Extremities: Yes: WNL Edema: No Peripheral Pulses WNL: Yes Neurological: Yes: Alert, Pre-Existing Deficit Psychiatric: Yes: Alert Labs: CBC, BMP 12/17/18 05:50 12/17/18 06:15 INR, PTT INR 1.49 (0.83-1.09) H 12/10/18 05:15 Fibrinogen > 500.0 mg/dL (238-498) H 11/25/18 20:00 Problem List - Problems (1) Anemia Assessment/Plan: -H/H trend stable -Iron deficient -thyroid profile, B12, FA unremarkable -monitor trend -Repeat Guaiac positive, 2/2 to constipation? -Seen by hematology+ GI Code(s): D64.9 - ANEMIA, UNSPECIFIED (2) CKD (chronic kidney disease) Assessment/Plan: -improved -nephrology on board -monitor trend Code(s): N18.9 - CHRONIC KIDNEY DISEASE, UNSPECIFIED (3) Diabetes Assessment/Plan: -bgm ac hs -A1c at 7.7 -Insulin: Novolog+Levemir -RD on board -endocrinology consult Code(s): E11.9 - TYPE 2 DIABETES MELLITUS WITHOUT COMPLICATIONS Qualifiers: Diabetes mellitus type: type 2 (4) Multiple myeloma Assessment/Plan: -Oncology on board Code(s): C90.00 - MULTIPLE MYELOMA NOT HAVING ACHIEVED REMISSION (5) Respiratory failure Assessment/Plan: -pulmonary consult -bronchodilators -ID on board -O2 to keep Spo2>90% Code(s): J96.90 - RESPIRATORY FAILURE, UNSP, UNSP W HYPOXIA OR HYPERCAPNIA Assessment/Plan see problem list Physical therapy d/c sykes, bladder scan in 12 hours, re-insert sykes if retaining >300 ml. Start tamsulosin daily
[2018-12-18] MEDS: TAMSULOSIN HCL 0.4 MG CAP PO SCH (17:06)
--- NOTE | 2018-12-18 18:01 | PN ---
Progress Note, Physician Chief Complaint: Multiple myeloma History of Present Illness: More confused today, per family at bedside - Current Medication List Current Medications: Active Medications Acetaminophen (Tylenol -) 500 mg PO Q6H PRN PRN Reason: HEADACHE Last Admin: 12/17/18 22:03 Dose: 500 mg Artificial Tears (Lacri-Lube Eye Ointment -) 1 applic OD HS PRN PRN Reason: DRY EYES Last Admin: 12/10/18 22:49 Dose: 1 applic Aspirin (Asa -) 81 mg NGT DAILY [facility] Last Admin: 12/18/18 09:57 Dose: 81 mg Atorvastatin Calcium (Lipitor -) 80 mg NGT HS [facility] Last Admin: 12/17/18 22:04 Dose: 80 mg Buspirone HCl (Buspar -) 15 mg NGT BID [facility] Last Admin: 12/18/18 10:05 Dose: 15 mg Calcium Carbonate/Cholecalciferol (Os-Kyler 500+D -) 2 tab NGT DAILY [facility] Last Admin: 12/18/18 09:57 Dose: 2 tab Heparin Sodium (Porcine) (Heparin -) 5,000 unit SQ TID [facility] Last Admin: 12/18/18 14:50 Dose: 5,000 unit Dextrose (D5w -) 1,000 mls @ 42 mls/hr IV .[id number] [facility] Insulin Aspart (Novolog Vial Sliding Scale -) 1 vial SQ TIDAC [facility]; Protocol Last Admin: 12/18/18 17:09 Dose: Not Given Insulin Detemir (Levemir Vial) [address] [facility] Last Admin: 12/17/18 22:04 Dose: 20 units Lactic Acid (Lac-Hydrin 12) 1 applic TP BID PRN PRN Reason: xerosis Last Admin: 12/18/18 10:17 Dose: 1 applic Methadone HCl (Dolophine -) 30 mg NGT DAILY@0600 [facility] Last Admin: 12/18/18 05:38 Dose: 30 mg Methylnaltrexone [place] (Relistor -) 8 mg SQ Q2D@1000 [facility] Last Admin: 12/18/18 10:05 Dose: 8 mg Metoprolol Tartrate (Lopressor -) 25 mg PO BID [facility] Last Admin: 12/18/18 09:57 Dose: 25 mg Pantoprazole Sodium (Protonix Packets For Oral Suspension -) 40 mg NGT DAILY [facility] Last Admin: 12/18/18 09:57 Dose: 40 mg Polyethylene Glycol (Miralax (For Daily Use) -) 17 gm PO BID [facility] Last Admin: 12/18/18 10:05 Dose: 17 gm Potassium Chloride (Potassium Chloride Oral Liquid) 10 meq PO BID [facility] Last Admin: 12/18/18 09:57 Dose: 10 meq Tamsulosin HCl (Flomax -) 0.4 mg PO DAILY@0830 [facility] Last Admin: 12/18/18 17:06 Dose: 0.4 mg Tiotropium [place] (Spiriva Respimat) 2 puff IH DAILY [facility] Last Admin: 12/18/18 10:16 Dose: 2 puff Valacyclovir HCl (Valtrex -) 500 mg NGT DAILY [facility] Last Admin: 12/18/18 09:57 Dose: 500 mg - Objective Vital Signs: Vital Signs Temperature 98.5 F 12/18/18 14:00 Pulse Rate 95 H 12/18/18 14:00 Respiratory Rate 18 12/18/18 14:00 Blood Pressure 148/92 12/18/18 14:00 O2 Sat by Pulse Oximetry (%) 98 12/18/18 08:48 Constitutional: Yes: Mild Distress Eyes: Yes: Conjunctiva Clear Cardiovascular: Yes: Regular Rate and Rhythm Respiratory: Yes: WNL, Regular, CTA Bilaterally, Poor Air Entry Gastrointestinal: Yes: Soft Neurological: Yes: Other (somnolent, following commands) Labs: CBC, BMP 12/17/18 05:50 12/17/18 06:15 INR, PTT INR 1.49 (0.83-1.09) H 12/10/18 05:15 Fibrinogen > 500.0 mg/dL (238-498) H 11/25/18 20:00 Assessment/Plan 63M with HTN, DM, PVD, ? COPD, CKD, recently diagnosed myeloma, with vertebral fractures s/p RT to l-spine and l. acetabular fx, on velcade/cytoxan/ dexamethasone/zometa (last 11/18/18), admitted with severe constipation and hyponatremia. Hospital course c/b acute respiratory failure, in the setting of severe hypertension, requiring intubation. Thought to have flash pulmonary edema vs. ARDS. Now extubated. Generalized weakness thought to be due to deconditioning and neuropathy of critical illness. Undergoing evaluation for persistent confusion. Awaiting MRI, EEG MM treatment on hold. Will continue to follow
[2018-12-18] MEDS: INSULIN (LEVEMIR) 100 UNITS/ML UNITS SQ SCH (23:15)
[2018-12-18] MEDS: ATORVASTATIN CA 80 MG TABLET (FP) NGT SCH (23:15)
[2018-12-19 01:00] LABS: URINE APPEARANCE SLCLOUDY; URINE BILIRUBIN NEGATIVE (<2.0 mg/dL); URINE COLOR YELLOW; URINE GLUCOSE (UA) 2+ (NEGATIVE); URINE KETONE NEGATIVE (NEGATIVE); URINE LEUK ESTERASE NEGATIVE (NEGATIVE); URINE NITRITE NEGATIVE (NEGATIVE); URINE PROTEIN 3+ (NEGATIVE); URINE UROBILINOGEN NEGATIVE mg/dL (0.2-1.0)
[2018-12-19 01:06] LABS: EPI CELLS RARE /HPF (FEW); URINE BACTERIA RARE /hpf (NONE SEEN); URINE MUCUS RARE
[2018-12-19] MEDS: METHADONE HCL 40 MG DISPERSABLE TABLET NGT SCH (05:36)
[2018-12-19] MEDS: HEPARIN NA (PORCINE) 5,000 UNITS/ML 1ML VIAL SQ SCH ×3 (05:37→21:47)
[2018-12-19] MEDS: INSULIN SLIDING SCALE (NOVOLOG) 1 VIAL SQ SCH ×3 (06:26→18:08)
[2018-12-19 06:33] LABS: BASO % 0.5 % (0-2.0); EOS % 2.6 % (0-4.5); HEMATOCRIT 26.3 % (35.4-49); LYMPH % 25.4 % (8-40); MCH 29.6 pg (25.7-33.7); MCHC 34.1 g/dl (32.0-35.9); MEAN CELL VOLUME 86.8 fl (80-96); MEAN PLT VOLUME 8.9 fl (7.5-11.1); MONO % 6.5 % (3.8-10.2); PLATELET COUNT 180 K/MM3 (134-434); RBC 3.03 M/mm3 (4.00-5.60); RDW 17.4 % (11.9-15.9); WHITE BLOOD COUNT 4.7 K/mm3 (4.0-10.0)
[2018-12-19 07:06] LABS: ALBUMIN 2.3 g/dl (3.4-5.0); ALK PHOS 119 U/L (45-117); ANION GAP 6 MMOL/L (8-16); BILIRUBIN,TOTAL 0.3 mg/dL (0.2-1); BLOOD UREA NITROGEN 24 mg/dL (7-18); CALCIUM 7.8 mg/dL (8.5-10.1); CHLORIDE 116 mmol/L (98-107); CO2 24 mmol/L (21-32); CREATININE 1.4 mg/dL (0.55-1.3); GLUCOSE,RANDOM 141 mg/dL (74-106); POTASSIUM 5.1 mmol/L (3.5-5.1); SGOT/AST 17 U/L (15-37); SGPT/ALT 29 U/L (13-61); SODIUM 146 mmol/L (136-145); TOT PROT 5.6 g/dl (6.4-8.2)
[2018-12-19] MEDS: valACYclovir HCL 500 MG TABLET (FP) NGT SCH (09:16)
[2018-12-19] MEDS: CALCIUM 500MG/VIT-D 200 UNITS COMBO TABLET (FP) NGT SCH (09:16)
[2018-12-19] MEDS: TAMSULOSIN HCL 0.4 MG CAP PO SCH (09:16)
[2018-12-19] MEDS: PANTOPRAZOLE SOD 40 MG SUSPENSION PACKET NGT SCH (09:16)
[2018-12-19] MEDS: POTASSIUM CHLORIDE ORAL LIQUID 20 MEQ/15 ML PO SCH (09:16)
[2018-12-19] MEDS: ASPIRIN 81 MG CHEWABLE TABLETS NGT SCH (09:17)
[2018-12-19] MEDS: METOPROLOL TARTRATE 25 MG TABLET (FP) PO SCH ×2 (09:17→21:47)
[2018-12-19] MEDS: POLYETHYLENE GLYCOL 3350 119 GM BTL PO SCH ×2 (09:17→22:09)
[2018-12-19] MEDS: busPIRone HCL 5 MG TABLET NGT SCH ×2 (09:17→21:48)
[2018-12-19] MEDS: TIOTROPIUM BROMIDE 2.5 MCG (SPIRIVA) RESPIMAT INHALER IH SCH (09:19)
[2018-12-19] MEDS: AMMONIUM LACTATE 12% LOTION 225 GM BOTTLE TP PRN (09:20)
--- NOTE | 2018-12-19 11:15 | PN ---
Progress Note, [employer] - Note Progress Note: Selected Entries 12/19/18 10:00 Breakfast 100% Diet Tolerated Well Laboratory Tests 12/19/18 06:00 WBC 4.7 On puree/nectar. Believes he is in [place] Sprain, going to the dentist today to get his new dentures. Speech intelligibility is improving. Swallow delayed but fairly brisk. CXR's have been ok. Consider -sips of thin water b/n meals. Monitor tolerance.
--- NOTE | 2018-12-19 13:26 | PN ---
Progress Note, Physician Chief Complaint: patient more awake and alert today onel ramirez awaitn MRI and EEG - Current Medication List Current Medications: Active Medications Acetaminophen (Tylenol -) 500 mg PO Q6H PRN PRN Reason: HEADACHE Last Admin: 12/17/18 22:03 Dose: 500 mg Artificial Tears (Lacri-Lube Eye Ointment -) 1 applic OD HS PRN PRN Reason: DRY EYES Last Admin: 12/10/18 22:49 Dose: 1 applic Aspirin (Asa -) 81 mg NGT DAILY [facility] Last Admin: 12/19/18 09:17 Dose: 81 mg Atorvastatin Calcium (Lipitor -) 80 mg NGT HS [facility] Last Admin: 12/18/18 23:15 Dose: 80 mg Buspirone HCl (Buspar -) 15 mg NGT BID [facility] Last Admin: 12/19/18 09:17 Dose: 15 mg Calcium Carbonate/Cholecalciferol (Os-Kyler 500+D -) 2 tab NGT DAILY [facility] Last Admin: 12/19/18 09:16 Dose: 2 tab Heparin Sodium (Porcine) (Heparin -) 5,000 unit SQ TID [facility] Last Admin: 12/19/18 05:37 Dose: 5,000 unit Dextrose (D5w -) 1,000 mls @ 42 mls/hr IV .[id number] [facility] Insulin Aspart (Novolog Vial Sliding Scale -) 1 vial SQ TIDAC [facility]; Protocol Last Admin: 12/19/18 12:08 Dose: 6 units Insulin Detemir (Levemir Vial) 20 units SQ [facility] Last Admin: 12/18/18 23:15 Dose: 20 units Lactic Acid (Lac-Hydrin 12) 1 applic TP BID PRN PRN Reason: xerosis Last Admin: 12/19/18 09:20 Dose: 1 applic Methadone HCl (Dolophine -) 30 mg NGT DAILY@0600 [facility] Last Admin: 12/19/18 05:36 Dose: 30 mg Methylnaltrexone [place] (Relistor -) 8 mg SQ Q2D@1000 [facility] Last Admin: 12/18/18 10:05 Dose: 8 mg Metoprolol Tartrate (Lopressor -) 25 mg PO BID [facility] Last Admin: 12/19/18 09:17 Dose: 25 mg Pantoprazole Sodium (Protonix Packets For Oral Suspension -) 40 mg NGT DAILY [facility] Last Admin: 12/19/18 09:16 Dose: 40 mg Polyethylene Glycol (Miralax (For Daily Use) -) 17 gm PO BID [facility] Last Admin: 12/19/18 09:17 Dose: 17 gm Potassium Chloride (Potassium Chloride Oral Liquid) 10 meq PO BID [facility] Last Admin: 12/19/18 09:16 Dose: 10 meq Tamsulosin HCl (Flomax -) 0.4 mg PO DAILY@0830 [facility] Last Admin: 12/19/18 09:16 Dose: 0.4 mg Tiotropium [place] (Spiriva Respimat) 2 puff IH DAILY [facility] Last Admin: 12/19/18 09:19 Dose: 2 puff Valacyclovir HCl (Valtrex -) 500 mg NGT DAILY [facility] Last Admin: 12/19/18 09:16 Dose: 500 mg - Objective Vital Signs: Vital Signs Temperature 97.4 F L 12/19/18 09:00 Pulse Rate 90 12/19/18 09:00 Respiratory Rate 20 12/19/18 09:00 Blood Pressure 132/78 12/19/18 09:00 O2 Sat by Pulse Oximetry (%) 100 12/19/18 09:00 Constitutional: Yes: Calm Cardiovascular: Yes: Regular Rate and Rhythm, S1, S2 Respiratory: Yes: CTA Bilaterally, Diminished (at bases) Gastrointestinal: Yes: Normal Bowel Sounds, Soft Labs: CBC, BMP 12/19/18 06:00 12/19/18 06:00 INR, PTT INR 1.49 (0.83-1.09) H 12/10/18 05:15 Fibrinogen > 500.0 mg/dL (238-498) H 11/25/18 20:00 Problem List - Problems (1) Hypernatremia Assessment/Plan: sodium is 146 will trend on ivf Code(s): E87.0 - HYPEROSMOLALITY AND HYPERNATREMIA (2) Abdominal distension Assessment/Plan: GI follow up noted relistor q48 hr and methadone dose decreased to 30mg plan to taper of methadone every week decrease by 10mg having BM Code(s): R14.0 - ABDOMINAL DISTENSION (GASEOUS) (3) Respiratory failure Assessment/Plan: iv lasix bid for pulm edema- improved no off the lasix extubated on bipap- now on venti mask monitor renal function and potassium positve MRSA in sputum,isolation ceftazidime for serratia in sputum- dc Microbiology 12/03/18 11:30 Sputum - Endotrachea Suction/Ventilator Gram Stain - Final 12/03/18 11:30 Sputum - Endotrachea Suction/Ventilator Sputum Culture - Final Serratia Marcescens Code(s): J96.90 - RESPIRATORY FAILURE, UNSP, UNSP W HYPOXIA OR HYPERCAPNIA (4) Vertebral compression fracture Assessment/Plan: radiation oncology and JOSE MANUEL noted to follow up as outpatient Code(s): M48.50XA - COLLAPSED VERTEBRA, NEC, SITE UNSP, INIT (5) Diabetes Assessment/Plan: levemir [id number] 7.7 Code(s): E11.9 - TYPE 2 DIABETES MELLITUS WITHOUT COMPLICATIONS Qualifiers: Diabetes mellitus type: type 2 (6) Multiple myeloma Assessment/Plan: last treatment was 11/18 Code(s): C90.00 - MULTIPLE MYELOMA NOT HAVING ACHIEVED REMISSION (7) Hypocalcemia Assessment/Plan: now calcium is better calcium tablets Code(s): E83.51 - HYPOCALCEMIA (8) Elevated troponin Assessment/Plan: due to demand ischemia on aspirin and lipitor trending down now normal Code(s): R74.8 - ABNORMAL LEVELS OF OTHER SERUM ENZYMES (9) UTI (urinary tract infection) Assessment/Plan: Microbiology 12/05/18 20:40 Urine - Urine Sykes Urine Culture - Final Escherichia Coli 11/28/18 10:40 Sputum - Endotrachea Suction/Ventilator Gram Stain - Final 11/28/18 10:40 Sputum - Endotrachea Suction/Ventilator Sputum Culture - Final Mr S Aureus ceftazidime for UTI and serratia in sputum- completed Code(s): N39.0 - URINARY TRACT INFECTION, SITE NOT SPECIFIED Assessment/Plan dc sykes on flomax repeat blader scan after 8rh of dc sykes cath MRI and EEG per neurology
--- NOTE | 2018-12-19 13:52 | PN ---
Progress Note (short form) - Note Progress Note: covering dr yanick johnson s/p hypernatremia previous problems 1. hyponatremia 2. CKD 3. nausea and vomiting 4. htn 5. DM 6. 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 multiple myeloma 9. anemia 10. proteinuria 11. s/p hyperkalemia interval history discussed with nursing s/p re-insertion of sykes catheter Current Medications Acetaminophen (Tylenol -) 500 mg PO Q6H PRN PRN Reason: HEADACHE Last Admin: 12/17/18 22:03 Dose: 500 mg Artificial Tears (Lacri-Lube Eye Ointment -) 1 applic OD HS PRN PRN Reason: DRY EYES Last Admin: 12/10/18 22:49 Dose: 1 applic Aspirin (Asa -) 81 mg NGT DAILY [facility] Last Admin: 12/19/18 09:17 Dose: 81 mg Atorvastatin Calcium (Lipitor -) 80 mg NGT HS [facility] Last Admin: 12/18/18 23:15 Dose: 80 mg Buspirone HCl (Buspar -) 15 mg NGT BID [facility] Last Admin: 12/19/18 09:17 Dose: 15 mg Calcium Carbonate/Cholecalciferol (Os-Kyler 500+D -) 2 tab NGT DAILY [facility] Last Admin: 12/19/18 09:16 Dose: 2 tab Heparin Sodium (Porcine) (Heparin -) 5,000 unit SQ TID [facility] Last Admin: 12/19/18 05:37 Dose: 5,000 unit Dextrose (D5w -) 1,000 mls @ 42 mls/hr IV .[id number] [facility] Insulin Aspart (Novolog Vial Sliding Scale -) 1 vial SQ TIDAC [facility]; Protocol Last Admin: 12/19/18 12:08 Dose: 6 units Insulin Detemir (Levemir Vial) 20 units SQ [facility] Last Admin: 12/18/18 23:15 Dose: 20 units Lactic Acid (Lac-Hydrin 12) 1 applic TP BID PRN PRN Reason: xerosis Last Admin: 12/19/18 09:20 Dose: 1 applic Methadone HCl (Dolophine -) 30 mg NGT DAILY@0600 [facility] Last Admin: 12/19/18 05:36 Dose: 30 mg Methylnaltrexone [place] (Relistor -) 8 mg SQ Q2D@1000 [facility] Last Admin: 12/18/18 10:05 Dose: 8 mg Metoprolol Tartrate (Lopressor -) 25 mg PO BID [facility] Last Admin: 12/19/18 09:17 Dose: 25 mg Pantoprazole Sodium (Protonix Packets For Oral Suspension -) 40 mg NGT DAILY [facility] Last Admin: 12/19/18 09:16 Dose: 40 mg Polyethylene Glycol (Miralax (For Daily Use) -) 17 gm PO BID [facility] Last Admin: 12/19/18 09:17 Dose: 17 gm Potassium Chloride (Potassium Chloride Oral Liquid) 10 meq PO BID [facility] Last Admin: 12/19/18 09:16 Dose: 10 meq Tamsulosin HCl (Flomax -) 0.4 mg PO DAILY@0830 [facility] Last Admin: 12/19/18 09:16 Dose: 0.4 mg Tiotropium [place] (Spiriva Respimat) 2 puff IH DAILY [facility] Last Admin: 12/19/18 09:19 Dose: 2 puff Valacyclovir HCl (Valtrex -) 500 mg NGT DAILY [facility] Last Admin: 12/19/18 09:16 Dose: 500 mg Last Vital Signs Temp Pulse Resp BP Pulse Ox 97.4 F L 90 20 132/78 100 12/19/18 09:00 12/19/18 09:00 12/19/18 09:00 12/19/18 09:00 12/19/18 09:00 alert talkative not very coherent Lungs clear Heart reg Abd soft nontender Ext no edema CBC, BMP 12/19/18 06:00 12/19/18 06:00 IMP - encephalopthy resolving s/p resp failure- resolved heart failure- well compensated clinically tendency to hyperkalemia kim on chronic- resolving creat near baseline Plan- IVF d5w d/c k supplements free water by mouth as rossana follow labs in am
--- NOTE | 2018-12-19 14:14 | PN ---
Progress Note (short form) - Note Progress Note: Resting in NAD. Breathing continues to improve. No cough or wheezing. Intake & Output 12/16/18 12/17/18 12/18/18 12/19/18 23:59 23:59 23:59 23:59 Intake Total 1104 1482 600 350 Output Total 950 700 400 Balance 154 782 200 350 Last Vital Signs Temp Pulse Resp BP Pulse Ox 97.4 F L 90 20 132/78 100 12/19/18 09:00 12/19/18 09:00 12/19/18 09:00 12/19/18 09:00 12/19/18 09:00 Active Medications Acetaminophen (Tylenol -) 500 mg PO Q6H PRN PRN Reason: HEADACHE Last Admin: 12/17/18 22:03 Dose: 500 mg Artificial Tears (Lacri-Lube Eye Ointment -) 1 applic OD HS PRN PRN Reason: DRY EYES Last Admin: 12/10/18 22:49 Dose: 1 applic Aspirin (Asa -) 81 mg NGT DAILY [facility] Last Admin: 12/19/18 09:17 Dose: 81 mg Atorvastatin Calcium (Lipitor -) 80 mg NGT HS [facility] Last Admin: 12/18/18 23:15 Dose: 80 mg Buspirone HCl (Buspar -) 15 mg NGT BID [facility] Last Admin: 12/19/18 09:17 Dose: 15 mg Calcium Carbonate/Cholecalciferol (Os-Kyler 500+D -) 2 tab NGT DAILY [facility] Last Admin: 12/19/18 09:16 Dose: 2 tab Heparin Sodium (Porcine) (Heparin -) 5,000 unit SQ TID [facility] Last Admin: 12/19/18 05:37 Dose: 5,000 unit Dextrose (D5w -) 1,000 mls @ 42 mls/hr IV Q23H [facility] Insulin Aspart (Novolog Vial Sliding Scale -) 1 vial SQ TIDAC [facility]; Protocol Last Admin: 12/19/18 12:08 Dose: 6 units Insulin Detemir (Levemir Vial) 20 units SQ HS [facility] Last Admin: 12/18/18 23:15 Dose: 20 units Lactic Acid (Lac-Hydrin 12) 1 applic TP BID PRN PRN Reason: xerosis Last Admin: 12/19/18 09:20 Dose: 1 applic Methadone HCl (Dolophine -) 30 mg NGT DAILY@0600 [facility] Last Admin: 12/19/18 05:36 Dose: 30 mg Methylnaltrexone [place] (Relistor -) 8 mg SQ Q2D@1000 [facility] Last Admin: 12/18/18 10:05 Dose: 8 mg Metoprolol Tartrate (Lopressor -) 25 mg PO BID [facility] Last Admin: 12/19/18 09:17 Dose: 25 mg Pantoprazole Sodium (Protonix Packets For Oral Suspension -) 40 mg NGT DAILY [facility] Last Admin: 12/19/18 09:16 Dose: 40 mg Polyethylene Glycol (Miralax (For Daily Use) -) 17 gm PO BID [facility] Last Admin: 12/19/18 09:17 Dose: 17 gm Tamsulosin HCl (Flomax -) 0.4 mg PO DAILY@0830 [facility] Last Admin: 12/19/18 09:16 Dose: 0.4 mg Tiotropium [place] (Spiriva Respimat) 2 puff IH DAILY [facility] Last Admin: 12/19/18 09:19 Dose: 2 puff Valacyclovir HCl (Valtrex -) 500 mg NGT DAILY [facility] Last Admin: 12/19/18 09:16 Dose: 500 mg Gen: NAD at rest Heart: RRR Lung: decreased breath sounds at the bases Abd: soft, nontender Ext: no edema Laboratory Results - last 24 hr 12/18/18 12/18/18 12/19/18 14:54 17:07 00:35 WBC RBC Hgb Hct MCV MCH MCHC RDW Plt Count MPV Absolute Neuts (auto) Neutrophils % Lymphocytes % Monocytes % Eosinophils % Basophils % Nucleated RBC % Sodium Potassium Chloride Carbon Dioxide Anion Gap BUN Creatinine Creat Clearance w eGFR POC Glucometer 153 146 Random Glucose Calcium Total Bilirubin AST ALT Alkaline Phosphatase Total Protein Albumin Urine Color Yellow Urine Appearance Slcloudy Urine pH 5.0 Ur Specific [place] 1.018 Urine Protein 3+ H Urine Glucose (UA) 2+ H Urine Ketones Negative Urine Blood 1+ H Urine Nitrite Negative Urine Bilirubin Negative Urine Urobilinogen Negative Ur Leukocyte Esterase Negative Urine WBC (Auto) 3 Urine RBC (Auto) 2 Ur Epithelial Cells Rare Urine Bacteria Rare Urine Mucus Rare 12/19/18 12/19/18 12/19/18 05:16 06:00 06:00 WBC 4.7 RBC 3.03 L Hgb 9.0 L Hct 26.3 L MCV 86.8 MCH 29.6 MCHC 34.1 RDW 17.4 H Plt Count 180 MPV 8.9 Absolute Neuts (auto) 3.0 Neutrophils % 65.0 Lymphocytes % 25.4 D Monocytes % 6.5 Eosinophils % 2.6 Basophils % 0.5 Nucleated RBC % 0 Sodium 146 H Potassium 5.1 Chloride 116 H Carbon Dioxide 24 Anion Gap 6 L BUN 24 H Creatinine 1.4 H Creat Clearance w eGFR 50.86 POC Glucometer 130 Random Glucose 141 H Calcium 7.8 L Total Bilirubin 0.3 AST 17 ALT 29 Alkaline Phosphatase 119 H Total Protein 5.6 L Albumin 2.3 L Urine Color Urine Appearance Urine pH Ur Specific [place] Urine Protein Urine Glucose (UA) Urine Ketones Urine Blood Urine Nitrite Urine Bilirubin Urine Urobilinogen Ur Leukocyte Esterase Urine WBC (Auto) Urine RBC (Auto) Ur Epithelial Cells Urine Bacteria Urine Mucus 12/19/18 12:06 WBC RBC Hgb Hct MCV MCH MCHC RDW Plt Count MPV Absolute Neuts (auto) Neutrophils % Lymphocytes % Monocytes % Eosinophils % Basophils % Nucleated RBC % Sodium Potassium Chloride Carbon Dioxide Anion Gap BUN Creatinine Creat Clearance w eGFR POC Glucometer 272 Random Glucose Calcium Total Bilirubin AST ALT Alkaline Phosphatase Total Protein Albumin Urine Color Urine Appearance Urine pH Ur Specific [place] Urine Protein Urine Glucose (UA) Urine Ketones Urine Blood Urine Nitrite Urine Bilirubin Urine Urobilinogen Ur Leukocyte Esterase Urine WBC (Auto) Urine RBC (Auto) Ur Epithelial Cells Urine Bacteria Urine Mucus A/P Acute Hypoxic and Hypercapneic Respiratory Failure improving Acute Pulmonary Edema resolving Acute NSTEMI r/o Pneumonia UTI Acute on Chronic Renal Failure HTN DM COPD Methadone Maintenance - Completed ABX - ASA - inhaled bronchodilators - aspiration precautions - rehab/PT - DVT/GI prophylaxis - VTE prophylaxis - D/C planning Dr Culver
[2018-12-19] MEDS: DEXTROSE 5%-WATER - 1,000 ML IV SCH (15:07)
--- NOTE | 2018-12-19 19:52 | PN ---
Progress Note (short form) - Note Progress Note: Patient seen and examined in icu awake, alert but still with confusion. moving all extremities/following commands Last Vital Signs Temp Pulse Resp BP Pulse Ox 98.1 F 86 18 133/81 100 12/19/18 22:13 12/19/18 22:13 12/19/18 22:13 12/19/18 22:13 12/19/18 20:35 Cor: RSR, No murmurs, No gallops Lungs: Clear to auscultation anteriorly Abd: Soft, Normal bowel sounds, No organomegaly Ext:chronic stasis dermatitis Labs/meds reviewed A/P 63 y/o patient with multiple comorbidites, HTN, DM, PVD, ? COPD, CKD, recently diagnosed myeloma, vertebral fractures on velcade/cytoxan/dexamethasone/zometa. Admitted with severe constipation and hyponatremia. Was on golytely for constipation and hydration for hyponatremia Developed acute resp. distress and high BPs evening of 11/25 ? flash pulmonary edema + pneumonia CXR-airspace opacities was diuresed and placed on antibiotics + troponins-- not a candidate for agressive cardiac interventions received ceftazidime for UTI and serratia in sputum and vancomycin for MRSA in sputum Myeloma--on velcade/cytoxan/dex --last dose 11/18 On zometa--11/18 treatment on hold light chains decreasing slowly s/p rt to lspine and left acetabular fx Renal impairment improved encephalopathy-- ? multifactorial--toxic metabolic f/u MRI and EMG critical illness neuropathy thrush--nystatin discused with daughters
[2018-12-19] MEDS ORDERED: PT OWN MED DRAWER 7, Y5N ONE (21:30)
[2018-12-19] MEDS: ATORVASTATIN CA 80 MG TABLET (FP) NGT SCH (21:47)
[2018-12-19] MEDS: INSULIN (LEVEMIR) 100 UNITS/ML UNITS SQ SCH (21:47)
[2018-12-20] MEDS: NYSTATIN 500,000 UNITS/5 ML SUSPENSION PO SCH ×4 (02:02→17:22)
[2018-12-20] MEDS: METHADONE HCL 40 MG DISPERSABLE TABLET NGT SCH (06:33)
[2018-12-20] MEDS: INSULIN SLIDING SCALE (NOVOLOG) 1 VIAL SQ SCH ×3 (06:34→17:20)
[2018-12-20] MEDS: HEPARIN NA (PORCINE) 5,000 UNITS/ML 1ML VIAL SQ SCH ×3 (06:34→22:20)
[2018-12-20 07:01] LABS: ALBUMIN 2.2 g/dl (3.4-5.0); ALK PHOS 105 U/L (45-117); ANION GAP 4 MMOL/L (8-16); BILIRUBIN,TOTAL 0.3 mg/dL (0.2-1); BLOOD UREA NITROGEN 20 mg/dL (7-18); CALCIUM 7.8 mg/dL (8.5-10.1); CHLORIDE 111 mmol/L (98-107); CO2 25 mmol/L (21-32); CREATININE 1.3 mg/dL (0.55-1.3); GLUCOSE,RANDOM 141 mg/dL (74-106); POTASSIUM 5.5 mmol/L (3.5-5.1); SGOT/AST 15 U/L (15-37); SGPT/ALT 25 U/L (13-61); SODIUM 140 mmol/L (136-145); TOT PROT 5.2 g/dl (6.4-8.2)
[2018-12-20] MEDS ORDERED: PT OWN MED DRAWER 7, Y5N ONE ×3 (08:24→22:12)
[2018-12-20] MEDS: TAMSULOSIN HCL 0.4 MG CAP PO SCH (08:48)
[2018-12-20] MEDS: PANTOPRAZOLE SOD 40 MG SUSPENSION PACKET NGT SCH (09:39)
[2018-12-20] MEDS: ASPIRIN 81 MG CHEWABLE TABLETS NGT SCH (09:39)
[2018-12-20] MEDS: CALCIUM 500MG/VIT-D 200 UNITS COMBO TABLET (FP) NGT SCH (09:39)
[2018-12-20] MEDS: METOPROLOL TARTRATE 25 MG TABLET (FP) PO SCH ×2 (09:39→22:20)
[2018-12-20] MEDS: BUSPIRONE HCL 10 MG, BUSPIRONE HCL 5 MG NR SCH ×2 (09:42→22:22)
--- NOTE | 2018-12-20 11:17 | PN ---
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 myeloma anemia proteinuria s/p hyperkalemia s/p extubation Acute respiratory failure History of Present Illness: NAD lethargic more alert, confused but follows commands Massey re-inserted for retention Still has NGT On dysphagia puree diet Hyperkalemic today Myeloma--on velcade/cytoxan/dex --last dose 11/18 On zometa--11/18 treatment on hold light chains decreasing slowly s/p rt to lspine and left acetabular fx - Current Medication List Current Medications: Active Medications Acetaminophen (Tylenol -) 500 mg PO Q6H PRN PRN Reason: HEADACHE Last Admin: 12/17/18 22:03 Dose: 500 mg Artificial Tears (Lacri-Lube Eye Ointment -) 1 applic OD HS PRN PRN Reason: DRY EYES Last Admin: 12/10/18 22:49 Dose: 1 applic Aspirin (Asa -) 81 mg NGT DAILY [facility] Last Admin: 12/20/18 09:39 Dose: 81 mg Atorvastatin Calcium (Lipitor -) 80 mg NGT HS [facility] Last Admin: 12/19/18 21:47 Dose: 80 mg Buspirone HCl 10 mg/ Buspirone (HCl 5 mg) 15 mg NR BID [facility] Last Admin: 12/20/18 09:42 Dose: 15 mg Calcium Carbonate/Cholecalciferol (Os-Kyler 500+D -) 2 tab NGT DAILY [facility] Last Admin: 12/20/18 09:39 Dose: 2 tab Heparin Sodium (Porcine) (Heparin -) 5,000 unit SQ TID [facility] Last Admin: 12/20/18 06:34 Dose: 5,000 unit Dextrose (D5w -) 1,000 mls @ 42 mls/hr IV Q23H [facility] Last Admin: 12/19/18 15:07 Dose: 42 mls/hr Insulin Aspart (Novolog Vial Sliding Scale -) 1 vial SQ TIDAC [facility]; Protocol Last Admin: 12/20/18 06:34 Dose: Not Given Insulin Detemir (Levemir Vial) 20 units SQ HS [facility] Last Admin: 12/19/18 21:47 Dose: 20 units Lactic Acid (Lac-Hydrin 12) 1 applic TP BID PRN PRN Reason: xerosis Last Admin: 12/19/18 09:20 Dose: 1 applic Methadone HCl (Dolophine -) 30 mg NGT DAILY@0600 [facility] Last Admin: 12/20/18 06:33 Dose: 30 mg Methylnaltrexone [place] (Relistor -) 8 mg SQ Q2D@1000 [facility] Last Admin: 12/18/18 10:05 Dose: 8 mg Metoprolol Tartrate (Lopressor -) 25 mg PO BID [facility] Last Admin: 12/20/18 09:39 Dose: 25 mg Nystatin (Nystatin Oral Suspension -) 500,000 units PO Q6HPO [facility] Last Admin: 12/20/18 06:34 Dose: 500,000 units Pantoprazole Sodium (Protonix Packets For Oral Suspension -) 40 mg NGT DAILY [facility] Last Admin: 12/20/18 09:39 Dose: 40 mg Polyethylene Glycol (Miralax (For Daily Use) -) 17 gm PO BID [facility] Last Admin: 12/19/18 22:09 Dose: 17 gm Tamsulosin HCl (Flomax -) 0.4 mg PO DAILY@0830 [facility] Last Admin: 12/20/18 08:48 Dose: 0.4 mg Tiotropium [place] (Spiriva Respimat) 2 puff IH DAILY [facility] Last Admin: 12/19/18 09:19 Dose: 2 puff Valacyclovir HCl (Valtrex -) 500 mg NGT DAILY [facility] Last Admin: 12/19/18 09:16 Dose: 500 mg - Objective Vital Signs: Vital Signs Temperature 97.9 F 12/20/18 08:44 Pulse Rate 96 H 12/20/18 08:44 Respiratory Rate 18 12/20/18 08:44 Blood Pressure 144/87 12/20/18 08:44 O2 Sat by Pulse Oximetry (%) 95 12/20/18 09:00 Constitutional: Yes: Well Nourished, No Distress, Calm Cardiovascular: Yes: Regular Rate and Rhythm Respiratory: Yes: Regular Gastrointestinal: Yes: Normal Bowel Sounds, Soft, Abdomen, Obese Genitourinary: Yes: Massey Present Musculoskeletal: Yes: Muscle Weakness Edema: No Peripheral Pulses WNL: Yes Neurological: Yes: Alert, Pre-Existing Deficit Psychiatric: Yes: Alert Labs: CBC, BMP 12/19/18 06:00 12/20/18 06:00 INR, PTT INR 1.49 (0.83-1.09) H 12/10/18 05:15 Fibrinogen > 500.0 mg/dL (238-498) H 11/25/18 20:00 Problem List - Problems (1) Anemia Assessment/Plan: -H/H trend stable -Iron deficient -thyroid profile, B12, FA unremarkable -monitor trend -Repeat Guaiac positive, 2/2 to constipation? -Seen by hematology+ GI Code(s): D64.9 - ANEMIA, UNSPECIFIED (2) CKD (chronic kidney disease) Assessment/Plan: -improved -nephrology on board -monitor trend Code(s): N18.9 - CHRONIC KIDNEY DISEASE, UNSPECIFIED (3) Diabetes Assessment/Plan: -bgm ac hs -A1c at 7.7 -Insulin: Novolog+Levemir -RD on board -endocrinology consult Code(s): E11.9 - TYPE 2 DIABETES MELLITUS WITHOUT COMPLICATIONS Qualifiers: Diabetes mellitus type: type 2 (4) Multiple myeloma Assessment/Plan: -Oncology on board -Myeloma--on velcade/cytoxan/dex --last dose 11/18 On zometa--11/18 treatment on hold light chains decreasing slowly s/p rt to lspine and left acetabular fx Code(s): C90.00 - MULTIPLE MYELOMA NOT HAVING ACHIEVED REMISSION (5) Respiratory failure Assessment/Plan: -pulmonary consult -bronchodilators -ID on board -O2 to keep Spo2>90% Code(s): J96.90 - RESPIRATORY FAILURE, UNSP, UNSP W HYPOXIA OR HYPERCAPNIA (6) Hyperkalemia Assessment/Plan: -mild -nephrology on board -change diet to low K+ Code(s): E87.5 - HYPERKALEMIA (7) Urinary retention Assessment/Plan: -Massey re-inserted -Increase tamsulosin to 0.8 mg po daily Code(s): R33.9 - RETENTION OF URINE, UNSPECIFIED Assessment/Plan See problem list DVT prophylaxis Physical therapy-did poorly
--- NOTE | 2018-12-20 12:28 | CONSULT ---
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 Pt now extubated, awake and alert. Pt referred for management of bloof sugar. Pt last seen in the office in October and was on Basaglar 40 daily with Humalog 5 TID with meals as necessary. Pt says his blood sugar has been good he started treatment of Multiple myeloma. 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: Peripheral Neuropathy (stocking glove distribution related to DM) Cardio/Vascular: Yes: CHF, HTN, Hyperlipdemia Pulmonary: Yes: Asthma, Other (left chest tube for rib fracture related pneumothorax afte a fall) Gastrointestinal: Yes: Constipation Hepatobiliary: Yes: Hepatitis C (cured several years ago with Dr Bedolla) Renal/: Yes: Renal Inusuff Infectious Disease: Yes: Other (Hepatitis C cured) Psych: Yes: Depression Musculoskeletal: Yes: Chronic low back pain, Other (multiple thoracolumbar vertebral fractures) Endocrine: Yes: Diabetes Mellitus Dermatology: Yes: Other (varicose veins) Additional Medical History: Laser therapy for diabetic retinopathy - Past Surgical History Past Surgical History: Yes: Amputation (5th digit R foot), Tonsillectomy - Alcohol/Substance Use Hx Alcohol Use: Yes (rare glass of wine, drank heavily over 10 years ago) History of Substance Use: reports: None (snorted), Cocaine, Heroin (sorteh) - Smoking History Smoking history: Former smoker Have you smoked in the past 12 months: No If you are a former smoker, when did you quit?: 1996 - Social History Usual Living Arrangement: With Spouse ADL: Independent 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 History of Recent Travel: Yes (to [place] in past 2 weeks ) Home Medications - Allergies Allergies/Adverse Reactions: Allergies Allergy/AdvReac Type Severity Reaction Status Date / Time No Known Allergies Allergy Verified 10/29/18 03:32 - Home Medications Home Medications: Ambulatory Orders Albuterol Sulfate Inhaler - [Ventolin HFA Inhaler -] 2 puff PO QID PRN 06/07/15 Aspirin [Aspirin EC] 81 mg PO DAILY 06/07/15 Enalapril Maleate [Vasotec -] 20 mg PO DAILY 06/07/15 Insulin Glargine,Hum.rec.anlog [Lantus (10mL VIAL) -] 40 unit SQ HS 06/07/15 Salmeterol/Fluticasone [Advair 100Mcg/50Mcg -] 1 puff PO BID 06/07/15 Sertraline HCl 50 mg PO DAILY 06/07/15 metFORMIN HCL [Metformin HCl] 1,000 mg PO BID 06/07/15 Acetaminophen [Tylenol .Regular Strength -] 650 mg PO Q6H PRN #0 tablet Methadone [Dolophine -] 70 mg PO DAILY 01/30/16 Buspirone HCl 15 mg PO BID 07/22/18 Metoprolol Tartrate [Lopressor -] 25 mg PO BID #60 tablet 07/27/18 Nifedipine ER [Procardia XL -] 30 mg PO DAILY #30 tab.er.24 07/27/18 Family Disease History - Family Disease History Family Disease History: Diabetes: Mother (asthma, breast cancer ), Brother ( alcoholic cirrhosis), CA: Mother, Other: Father ( 90 natural causes), Mother, Brother Review of Systems - Review of Systems Constitutional: reports: Malaise Eyes: reports: No Symptoms HENT: reports: No Symptoms Neck: reports: No Symptoms Cardiovascular: reports: No Symptoms Respiratory: reports: No Symptoms Gastrointestinal: reports: No Symptoms Genitourinary: reports: No Symptoms Musculoskeletal: reports: No Symptoms Neurological: reports: No Symptoms Endocrine: reports: No Symptoms Physical Exam Vital Signs: Vital Signs Temperature 97.9 F 12/20/18 08:44 Pulse Rate 96 H 12/20/18 08:44 Respiratory Rate 18 12/20/18 08:44 Blood Pressure 144/87 12/20/18 08:44 O2 Sat by Pulse Oximetry (%) 95 12/20/18 09:00 Constitutional: Yes: No Distress, Calm Eyes: Yes: Conjunctiva Clear, EOM Intact HENT: Yes: Atraumatic, Normocephalic Neck: Yes: Supple, Trachea Midline Cardiovascular: Yes: Regular Rate and Rhythm Respiratory: Yes: Regular, CTA Bilaterally Gastrointestinal: Yes: Normal Bowel Sounds, Soft Musculoskeletal: Yes: WNL Extremities: Yes: Other (Rt 5 th toe amputation) Edema: No Neurological: Yes: Alert, Oriented Labs: CBC, BMP 12/19/18 06:00 12/20/18 06:00 Assessment/Plan AP: T2DM: Insulin requiring A1c on 07.21.18 was 7.3 and 7.7 on 11.28.28 Multiple myeloma- not in remission Bone mets Acute NSTEMI Acute hypoxic respiratory failure:improving Sepsis improved Anemia DARIO- improved Confusion - improving BGM QACHS Continue Levemir 20 units daily NOvolog SS coverage premeals Will f/u
[2018-12-20] MEDS: Methylnaltrexone Bromide 12 MG/0.6 ML KIT SQ SCH (13:00)
[2018-12-20] MEDS: valACYclovir HCL 500 MG TABLET (FP) NGT SCH (13:00)
[2018-12-20] MEDS: POLYETHYLENE GLYCOL 3350 119 GM BTL PO SCH ×2 (13:15→22:32)
[2018-12-20] MEDS: TIOTROPIUM BROMIDE 2.5 MCG (SPIRIVA) RESPIMAT INHALER IH SCH (13:17)
--- NOTE | 2018-12-20 13:18 | PN ---
Progress Note, Physician History of Present Illness: PULMONARY NO DISTRESS,-CP,-SOB - Current Medication List Current Medications: Active Medications Acetaminophen (Tylenol -) 500 mg PO Q6H PRN PRN Reason: HEADACHE Last Admin: 12/17/18 22:03 Dose: 500 mg Artificial Tears (Lacri-Lube Eye Ointment -) 1 applic OD HS PRN PRN Reason: DRY EYES Last Admin: 12/10/18 22:49 Dose: 1 applic Aspirin (Asa -) [address] [facility] Last Admin: 12/20/18 09:39 Dose: 81 mg Atorvastatin Calcium (Lipitor -) [address] [facility] Last Admin: 12/19/18 21:47 Dose: 80 mg Buspirone HCl 10 mg/ Buspirone (HCl 5 mg) [address] [facility] Last Admin: 12/20/18 09:42 Dose: 15 mg Calcium Carbonate/Cholecalciferol (Os-Kyler 500+D -) [address] [facility] Last Admin: 12/20/18 09:39 Dose: 2 tab Heparin Sodium (Porcine) (Heparin -) 5,[address] [facility] Last Admin: 12/20/18 06:34 Dose: 5,000 unit Dextrose (D5w -) 1,000 mls @ 42 mls/hr IV Q23H [facility] Last Admin: 12/19/18 15:07 Dose: 42 mls/hr Insulin Aspart (Novolog Vial Sliding Scale -) [address] [facility]; Protocol Last Admin: 12/20/18 12:56 Dose: 2 units Insulin Detemir (Levemir Vial) 20 units SQ [facility] Last Admin: 12/19/18 21:47 Dose: 20 units Lactic Acid (Lac-Hydrin 12) 1 applic TP BID PRN PRN Reason: xerosis Last Admin: 12/19/18 09:20 Dose: 1 applic Methadone HCl (Dolophine -) 30 mg NGT DAILY@0600 [facility] Last Admin: 12/20/18 06:33 Dose: 30 mg Methylnaltrexone [place] (Relistor -) 8 mg SQ Q2D@1000 [facility] Last Admin: 12/20/18 13:00 Dose: 8 mg Metoprolol Tartrate (Lopressor -) [address] [facility] Last Admin: 12/20/18 09:39 Dose: 25 mg Nystatin (Nystatin Oral Suspension -) 500,[address] [facility] Last Admin: 12/20/18 06:34 Dose: 500,000 units Pantoprazole Sodium (Protonix Packets For Oral Suspension -) [address] [facility] Last Admin: 12/20/18 09:39 Dose: 40 mg Polyethylene Glycol (Miralax (For Daily Use) -) [address] [facility] Last Admin: 12/19/18 22:09 Dose: 17 gm Tamsulosin HCl (Flomax -) 0.8 mg PO DAILY@0830 [facility] Tiotropium [place] (Spiriva Respimat) [address] [facility] Last Admin: 12/19/18 09:19 Dose: 2 puff Valacyclovir HCl (Valtrex -) [address] [facility] Last Admin: 12/20/18 13:00 Dose: 500 mg - Objective Vital Signs: Vital Signs Temperature 97.9 F 12/20/18 08:44 Pulse Rate 96 H 12/20/18 08:44 Respiratory Rate 18 12/20/18 08:44 Blood Pressure 144/87 12/20/18 08:44 O2 Sat by Pulse Oximetry (%) 95 12/20/18 09:00 Constitutional: Yes: Well Nourished, Calm Eyes: Yes: WNL HENT: Yes: WNL Neck: Yes: WNL Cardiovascular: Yes: Regular Rate and Rhythm, S1, S2 Respiratory: Yes: Diminished Gastrointestinal: Yes: Normal Bowel Sounds, Soft Extremities: Yes: WNL Edema: No Labs: CBC, BMP 12/19/18 06:00 12/20/18 06:00 INR, PTT INR 1.49 (0.83-1.09) H 12/10/18 05:15 Fibrinogen > 500.0 mg/dL (238-498) H 11/25/18 20:00 Problem List - Problems (1) Acute hypoxemic respiratory failure Code(s): J96.01 - ACUTE RESPIRATORY FAILURE WITH HYPOXIA (2) Anemia Code(s): D64.9 - ANEMIA, UNSPECIFIED (3) CKD (chronic kidney disease) Code(s): N18.9 - CHRONIC KIDNEY DISEASE, UNSPECIFIED (4) Elevated liver enzymes Code(s): R74.8 - ABNORMAL LEVELS OF OTHER SERUM ENZYMES (5) Elevated troponin Code(s): R74.8 - ABNORMAL LEVELS OF OTHER SERUM ENZYMES (6) Pulmonary congestion Code(s): R09.89 - OTH SYMPTOMS AND SIGNS INVOLVING THE CIRC AND RESP SYSTEMS (7) Respiratory failure Code(s): J96.90 - RESPIRATORY FAILURE, UNSP, UNSP W HYPOXIA OR HYPERCAPNIA Assessment/Plan ASSESSMENT AND PLAN: Acute Hypoxic and Hypercapneic Respiratory Failure improved Acute Pulmonary Edema Acute NSTEMI r/o Pneumonia UTI Acute on Chronic Renal Failure HTN DM COPD Methadone Maintenance MM - monitor urine output, creatinine - monitor lytes - ASA - inhaled bronchodilators - aspiration precautions - rehab/PT - DVT/GI prophylaxis DR WAGNER
[2018-12-20] MEDS: DEXTROSE 5%-WATER - 1,000 ML IV SCH (13:25)
[2018-12-20 14:15] LABS: ANION GAP 4 MMOL/L (8-16); BLOOD UREA NITROGEN 19 mg/dL (7-18); CALCIUM 7.8 mg/dL (8.5-10.1); CHLORIDE 110 mmol/L (98-107); CO2 25 mmol/L (21-32); CREATININE 1.3 mg/dL (0.55-1.3); GLUCOSE,RANDOM 183 mg/dL (74-106); POTASSIUM 4.8 mmol/L (3.5-5.1); SODIUM 138 mmol/L (136-145)
--- NOTE | 2018-12-20 15:06 | PN ---
Progress Note, Physician History of Present Illness: Pt seen and examined at bedside. He is awake and alert. He is out of bed to chair. He denies shortness of breath. - Current Medication List Current Medications: Active Medications Acetaminophen (Tylenol -) 500 mg PO Q6H PRN PRN Reason: HEADACHE Last Admin: 12/17/18 22:03 Dose: 500 mg Artificial Tears (Lacri-Lube Eye Ointment -) 1 applic OD HS PRN PRN Reason: DRY EYES Last Admin: 12/10/18 22:49 Dose: 1 applic Aspirin (Asa -) 81 mg NGT DAILY [facility] Last Admin: 12/20/18 09:39 Dose: 81 mg Atorvastatin Calcium (Lipitor -) 80 mg NGT HS [facility] Last Admin: 12/19/18 21:47 Dose: 80 mg Buspirone HCl 10 mg/ Buspirone (HCl 5 mg) 15 mg NR BID [facility] Last Admin: 12/20/18 09:42 Dose: 15 mg Calcium Carbonate/Cholecalciferol (Os-Kyler 500+D -) 2 tab NGT DAILY [facility] Last Admin: 12/20/18 09:39 Dose: 2 tab Heparin Sodium (Porcine) (Heparin -) 5,000 unit SQ TID [facility] Last Admin: 12/20/18 13:17 Dose: 5,000 unit Dextrose (D5w -) 1,000 mls @ 42 mls/hr IV Q23H [facility] Last Admin: 12/20/18 13:25 Dose: 42 mls/hr Insulin Aspart (Novolog Vial Sliding Scale -) 1 vial SQ TIDAC [facility]; Protocol Last Admin: 12/20/18 12:56 Dose: 2 units Insulin Detemir (Levemir Vial) 20 units SQ [facility] Last Admin: 12/19/18 21:47 Dose: 20 units Lactic Acid (Lac-Hydrin 12) 1 applic TP BID PRN PRN Reason: xerosis Last Admin: 12/19/18 09:20 Dose: 1 applic Methadone HCl (Dolophine -) 30 mg NGT DAILY@0600 [facility] Last Admin: 12/20/18 06:33 Dose: 30 mg Methylnaltrexone [place] (Relistor -) 8 mg SQ Q2D@1000 [facility] Last Admin: 12/20/18 13:00 Dose: 8 mg Metoprolol Tartrate (Lopressor -) 25 mg PO BID [facility] Last Admin: 12/20/18 09:39 Dose: 25 mg Nystatin (Nystatin Oral Suspension -) 500,000 units PO Q6HPO [facility] Last Admin: 12/20/18 13:15 Dose: 500,000 units Pantoprazole Sodium (Protonix Packets For Oral Suspension -) 40 mg NGT DAILY [facility] Last Admin: 12/20/18 09:39 Dose: 40 mg Polyethylene Glycol (Miralax (For Daily Use) -) 17 gm PO BID [facility] Last Admin: 12/20/18 13:15 Dose: 17 gm Tamsulosin HCl (Flomax -) 0.8 mg PO DAILY@0830 [facility] Tiotropium [place] (Spiriva Respimat) 2 puff IH DAILY [facility] Last Admin: 12/20/18 13:17 Dose: 2 puff Valacyclovir HCl (Valtrex -) 500 mg NGT DAILY [facility] Last Admin: 12/20/18 13:00 Dose: 500 mg - Objective Vital Signs: Vital Signs Temperature 97.9 F 12/20/18 13:48 Pulse Rate 87 12/20/18 13:48 Respiratory Rate 18 12/20/18 13:48 Blood Pressure 139/90 12/20/18 13:48 O2 Sat by Pulse Oximetry (%) 95 12/20/18 09:00 Constitutional: Yes: Calm Eyes: Yes: Conjunctiva Clear HENT: Yes: Atraumatic Neck: Yes: Supple Cardiovascular: Yes: S1, S2 Respiratory: Yes: On Nasal O2 Gastrointestinal: Yes: Soft Genitourinary: Yes: WNL Musculoskeletal: Yes: WNL Edema: LLE: Trace, RLE: Trace Neurological: Yes: Confusion Psychiatric: Yes: Oriented Labs: CBC, BMP 12/19/18 06:00 12/20/18 13:33 INR, PTT INR 1.49 (0.83-1.09) H 12/10/18 05:15 Fibrinogen > 500.0 mg/dL (238-498) H 11/25/18 20:00 Problem List - Problems (1) CKD (chronic kidney disease) Code(s): N18.9 - CHRONIC KIDNEY DISEASE, UNSPECIFIED (2) Constipation Code(s): K59.00 - CONSTIPATION, UNSPECIFIED Qualifiers: Constipation type: unspecified constipation type Qualified Code(s): K59.00 - Constipation, unspecified (3) Hyponatremia Code(s): E87.1 - HYPO-OSMOLALITY AND HYPONATREMIA Assessment/Plan Current Medications Generic Name Dose Route Start Last Admin Trade Name Freq PRN Reason Stop Dose Admin Acetaminophen 500 mg 12/14/18 20:46 12/17/18 22:03 Tylenol - PO 500 mg Q6H PRN Administration HEADACHE Artificial Tears 1 applic 12/10/18 22:05 12/10/18 22:49 Lacri-Lube Eye Ointment - OD 1 applic HS PRN Administration DRY EYES Aspirin 81 mg 12/09/18 10:00 12/20/18 09:39 Asa - NGT 81 mg DAILY YAKOV Administration Atorvastatin Calcium 80 mg 12/08/18 22:00 12/19/18 21:47 Lipitor - NGT 80 mg HS [facility]AKOV Administration Buspirone HCl 10 mg/ Buspirone 15 mg 12/20/18 10:00 12/20/18 09:42 HCl 5 mg NR 15 mg BID [facility]OV Administration Calcium Carbonate/Cholecalciferol 2 tab 12/09/18 10:00 12/20/18 09:39 Os-Kyler 500+D - NGT 2 tab DAILY [facility] Administration Heparin Sodium (Porcine) 5,000 unit 12/08/18 22:00 12/20/18 13:17 Heparin - SQ 5,000 unit TID [facility] Administration Dextrose 1,000 mls @ 42 mls/hr 12/19/18 14:00 12/20/18 13:25 D5w - IV 42 mls/hr Q23H [facility] Administration Insulin Aspart 1 vial 12/14/18 17:00 12/20/18 12:56 Novolog Vial Sliding Scale - SQ 2 units TIDAC [facility]AKOV Administration Protocol Insulin Detemir 20 units 12/08/18 22:00 12/19/18 21:47 Levemir Vial SQ 20 units HS [facility] Administration Lactic Acid 1 applic 12/16/18 21:22 12/19/18 09:20 Lac-Hydrin 12 TP 1 applic BID PRN Administration xerosis Methadone HCl 30 mg 12/17/18 06:00 12/20/18 06:33 Dolophine - NGT 30 mg DAILY@0600 [facility] Administration Methylnaltrexone [place] 8 mg 12/18/18 10:00 12/20/18 13:00 Relistor - SQ 8 mg Q2D@1000 [facility] Administration Metoprolol Tartrate 25 mg 12/08/18 22:00 12/20/18 09:39 Lopressor - PO 25 mg BID [facility]AKOV Administration Nystatin 500,000 units 12/20/18 00:00 12/20/18 13:15 Nystatin Oral Suspension - PO 500,000 units Q6HPO [facility]OKV Administration Pantoprazole Sodium 40 mg 12/12/18 10:00 12/20/18 09:39 Protonix Packets For Oral Suspension - NGT 40 mg DAILY [facility] Administration Polyethylene Glycol 17 gm 12/15/18 22:00 12/20/18 13:15 Miralax (For Daily Use) - PO 17 gm BID [facility] Administration Tamsulosin HCl 0.8 mg 12/21/18 08:30 Flomax - PO DAILY@0830 [facility] Tiotropium [place] 2 puff 12/09/18 10:00 12/20/18 13:17 Spiriva Respimat IH 2 puff DAILY [facility] Administration Valacyclovir HCl 500 mg 12/09/18 10:00 12/20/18 13:00 Valtrex - NGT 500 mg DAILY [facility] Administration Impression 1. hyponatremia 2. CKD 3. nausea and vomiting 4. htn 5. DM 6. 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 multiple myeloma 9. anemia 10. proteinuria 11. hyperkalemia 12. resp failure 13. volume overload 14. hypernatremia 15. hyperkalemia Plan - repeat potassium is normal - potassium treated with fluids - can stop fluids - avoid potassium supplements - repeat labs in am Dr Cates
[2018-12-20 15:23] LABS: HEMATOCRIT 28.3 % (35.4-49); HEMOGLOBIN 9.1 GM/dL (11.7-16.9); MCH 28.3 pg (25.7-33.7); MCHC 32.2 g/dl (32.0-35.9); MEAN CELL VOLUME 87.8 fl (80-96); MEAN PLT VOLUME 8.7 fl (7.5-11.1); PLATELET COUNT 206 K/MM3 (134-434); RBC 3.23 M/mm3 (4.00-5.60); WHITE BLOOD COUNT 4.3 K/mm3 (4.0-10.0)
--- NOTE | 2018-12-20 15:43 | PN ---
Progress Note (short form) - Note Progress Note: Patient seen and examined OOB in chair Alert and responsive to questions No chest pains Last Vital Signs Temp Pulse Resp BP Pulse Ox 97.9 F 87 18 139/90 95 12/20/18 13:48 12/20/18 13:48 12/20/18 13:48 12/20/18 13:48 12/20/18 09:00 HEENT: [place], EOM Intact Oropharynx: No thrush, No mucositis Cor: RSR, No murmurs, No gallops Lungsdimiinished breath sounds at bases Abd: Soft, Normal bowel sounds, No organomegaly Ext:No significant edema Skin: No rashes, Integument intact CBC, BMP 12/20/18 15:00 12/20/18 13:33 Current Medications Generic Name Dose Route Start Last Admin Trade Name Freq PRN Reason Stop Dose Admin Acetaminophen 500 mg 12/14/18 20:46 12/17/18 22:03 Tylenol - PO 500 mg Q6H PRN Administration HEADACHE Artificial Tears 1 applic 12/10/18 22:05 12/10/18 22:49 Lacri-Lube Eye Ointment - OD 1 applic HS PRN Administration DRY EYES Aspirin 81 mg 12/09/18 10:00 12/20/18 09:39 Asa - NGT 81 mg DAILY [facility] Administration Atorvastatin Calcium 80 mg 12/08/18 22:00 12/19/18 21:47 Lipitor - NGT 80 mg HS [facility]OV Administration Buspirone HCl 10 mg/ Buspirone 15 mg 12/20/18 10:00 12/20/18 09:42 HCl 5 mg NR 15 mg BID [facility]OV Administration Calcium Carbonate/Cholecalciferol 2 tab 12/09/18 10:00 12/20/18 09:39 Os-Kyler 500+D - NGT 2 tab DAILY [facility] Administration Heparin Sodium (Porcine) 5,000 unit 12/08/18 22:00 12/20/18 13:17 Heparin - SQ 5,000 unit TID [facility] Administration Insulin Aspart 1 vial 12/14/18 17:00 12/20/18 12:56 Novolog Vial Sliding Scale - SQ 2 units TIDAC [facility]OV Administration Protocol Insulin Detemir 20 units 12/08/18 22:00 12/19/18 21:47 Levemir Vial SQ 20 units HS [facility] Administration Lactic Acid 1 applic 12/16/18 21:22 12/19/18 09:20 Lac-Hydrin 12 TP 1 applic BID PRN Administration xerosis Methadone HCl 30 mg 12/17/18 06:00 12/20/18 06:33 Dolophine - NGT 30 mg DAILY@0600 [facility] Administration Methylnaltrexone [place] 8 mg 12/18/18 10:00 12/20/18 13:00 Relistor - SQ 8 mg Q2D@1000 [facility] Administration Metoprolol Tartrate 25 mg 12/08/18 22:00 12/20/18 09:39 Lopressor - PO 25 mg BID [facility] Administration Nystatin 500,000 units 12/20/18 00:00 12/20/18 13:15 Nystatin Oral Suspension - PO 500,000 units Q6HPO [facility] Administration Pantoprazole Sodium 40 mg 12/12/18 10:00 12/20/18 09:39 Protonix Packets For Oral Suspension - NGT 40 mg DAILY [facility] Administration Polyethylene Glycol 17 gm 12/15/18 22:00 12/20/18 13:15 Miralax (For Daily Use) - PO 17 gm BID [facility] Administration Tamsulosin HCl 0.8 mg 12/21/18 08:30 Flomax - PO DAILY@0830 [facility] Tiotropium [place] 2 puff 12/09/18 10:00 12/20/18 13:17 Spiriva Respimat IH 2 puff DAILY [facility] Administration Valacyclovir HCl 500 mg 12/09/18 10:00 12/20/18 13:00 Valtrex - NGT 500 mg DAILY [facility] Administration Impression: Multiple myeloma- not in remission Bone mets Acute hypoxic respiratory failure- improved Sepsis improved Anemia DARIO- improved Confusion - improving Methadone dependence DM MRI - involutional changes; microvascular changes mastoid fluid; ethmoid sinusitis; maxilllary sinusitis, nasal peerforation Continuing with current therapy PT
[2018-12-20 19:13] LABS: FREE KAPPA,SERUM 1093.6 mg/L (3.3-19.4)
[2018-12-20] MEDS: ATORVASTATIN CA 80 MG TABLET (FP) NGT SCH (22:19)
[2018-12-20] MEDS: ACETAMINOPHEN 500 MG TABLET (FP) PO PRN (22:19)
[2018-12-20] MEDS: INSULIN (LEVEMIR) 100 UNITS/ML UNITS SQ SCH (22:20)
[2018-12-21] MEDS: NYSTATIN 500,000 UNITS/5 ML SUSPENSION PO SCH ×5 (00:28→23:17)
[2018-12-21] MEDS: METHADONE HCL 40 MG DISPERSABLE TABLET NGT SCH (06:13)
[2018-12-21] MEDS: HEPARIN NA (PORCINE) 5,000 UNITS/ML 1ML VIAL SQ SCH ×2 (06:14→21:17)
[2018-12-21] MEDS: INSULIN SLIDING SCALE (NOVOLOG) 1 VIAL SQ SCH ×3 (06:22→16:49)
[2018-12-21 06:38] LABS: BASO % 0.5 % (0-2.0); HEMATOCRIT 29.4 % (35.4-49); HEMOGLOBIN 9.7 GM/dL (11.7-16.9); LYMPH % 21.3 % (8-40); MCHC 33.1 g/dl (32.0-35.9); MEAN CELL VOLUME 87.4 fl (80-96); MONO % 6.5 % (3.8-10.2); NEUT % 69.7 % (42.8-82.8); PLATELET COUNT 188 K/MM3 (134-434); RBC 3.36 M/mm3 (4.00-5.60); RDW 18.5 % (11.9-15.9); WHITE BLOOD COUNT 5.1 K/mm3 (4.0-10.0)
[2018-12-21 07:02] LABS: ALBUMIN 2.4 g/dl (3.4-5.0); ALK PHOS 123 U/L (45-117); ANION GAP 5 MMOL/L (8-16); BILIRUBIN,TOTAL 0.4 mg/dL (0.2-1); BLOOD UREA NITROGEN 20 mg/dL (7-18); CALCIUM 8.2 mg/dL (8.5-10.1); CHLORIDE 110 mmol/L (98-107); CO2 24 mmol/L (21-32); CREATININE 1.4 mg/dL (0.55-1.3); GLUCOSE,RANDOM 168 mg/dL (74-106); POTASSIUM 5.1 mmol/L (3.5-5.1); SGOT/AST 19 U/L (15-37); SGPT/ALT 28 U/L (13-61); SODIUM 139 mmol/L (136-145); TOT PROT 5.9 g/dl (6.4-8.2)
[2018-12-21] MEDS ORDERED: PT OWN MED DRAWER 7, Y5N ONE ×4 (08:16→21:01)
[2018-12-21] MEDS: TAMSULOSIN HCL 0.4 MG CAP PO SCH (09:05)
--- NOTE | 2018-12-21 09:05 | PN ---
Progress Note (short form) - Note Progress Note: Denies any complaints Slightly confused BGM acceptable No hypos 12/21/18 12/21/18 12/21/18 06:00 09:00 10:00 Temperature 98.2 F 98 F Pulse Rate 104 H 93 H Respiratory 20 20 20 Rate Blood Pressure 146/98 127/81 O2 Sat by Pulse 98 Oximetry (%) PE: Awake, alert, oriented to person and place HEENT: EoMi Neck: Supple, No JVD Lungs: CTA CVS: S1S2 Abd: Benign Ext: No edema AP: T2DM: Insulin requiring A1c on 07.21.18 was 7.3 and 7.7 on 11.28.28 Multiple myeloma- not in remission Bone mets Acute NSTEMI Acute hypoxic respiratory failure:improving Sepsis improved Anemia DARIO- improved Confusion - improving BGM QACHS Continue Levemir 20 units daily NOvolog SS coverage premeals Will f/u
[2018-12-21] MEDS: METOPROLOL TARTRATE 25 MG TABLET (FP) PO SCH ×2 (10:45→21:16)
[2018-12-21] MEDS: ASPIRIN 81 MG CHEWABLE TABLETS NGT SCH (10:45)
[2018-12-21] MEDS: valACYclovir HCL 500 MG TABLET (FP) NGT SCH (10:45)
[2018-12-21] MEDS: PANTOPRAZOLE SOD 40 MG SUSPENSION PACKET NGT SCH (10:45)
[2018-12-21] MEDS: CALCIUM 500MG/VIT-D 200 UNITS COMBO TABLET (FP) NGT SCH (10:45)
[2018-12-21] MEDS: BUSPIRONE HCL 10 MG, BUSPIRONE HCL 5 MG NR SCH ×2 (10:46→21:16)
[2018-12-21] MEDS: POLYETHYLENE GLYCOL 3350 119 GM BTL PO SCH ×2 (10:47→21:17)
[2018-12-21] MEDS: TIOTROPIUM BROMIDE 2.5 MCG (SPIRIVA) RESPIMAT INHALER IH SCH (10:47)
--- NOTE | 2018-12-21 11:40 | DS ---
Physical Examination Vital Signs: Vital Signs Temperature 98.2 F 12/21/18 06:00 Pulse Rate 104 H 12/21/18 06:00 Respiratory Rate 20 12/21/18 06:00 Blood Pressure 146/98 12/21/18 06:00 O2 Sat by Pulse Oximetry (%) 98 12/20/18 21:00 Findings/Remarks: This 63 y/o man with h/o HTN, T2DM for 15 years, on Insulin for around 10, HLD, PVD, ASHD, Hep C (s/p Harvoni), IVDA (on methadone) and multiple myeloma who was admitted for for Constipation and GI bleeding who developed respiratory arrest and intubated and treated in the ICU. Pt now extubated, awake and alert. Pt referred for management of bloof sugar. Pt last seen in the office in October and was on Basaglar 40 daily with Humalog 5 TID with meals as necessary. Pt says his blood sugar has been good he started treatment of Multiple myeloma. Constitutional: Yes: Well Nourished, No Distress, Calm Cardiovascular: Yes: Regular Rate and Rhythm Respiratory: Yes: Regular Gastrointestinal: Yes: Normal Bowel Sounds, Soft, Abdomen, Obese Renal/: Yes: Massey Present Musculoskeletal: Yes: Muscle Weakness Extremities: Yes: WNL Edema: No Peripheral Pulses WNL: Yes Neurological: Yes: Alert, Confusion Psychiatric: Yes: Alert Labs: CBC, BMP 12/21/18 06:00 12/21/18 06:00 Discharge Summary Reason For Visit: HIGH BP Current Active Problems Abdominal distension (Acute) Abnormal LFTs (liver function tests) (Acute) Acute hypoxemic respiratory failure (Acute) Anemia (Acute) CKD (chronic kidney disease) (Acute) Diabetes (Acute) Diabetic gastroparesis (Acute) Diabetic neuropathy (Acute) Diabetic retinopathy (Acute) Edema (Acute) Elevated liver enzymes (Acute) History of cocaine abuse (Acute) History of heroin abuse (Acute) Hyperkalemia (Acute) Hypernatremia (Acute) Hypocalcemia (Acute) Hyponatremia (Acute) Ileus (Acute) Intractable abdominal pain (Acute) Multiple myeloma (Acute) Narcotic dependence (Acute) Nausea and vomiting (Acute) OB + stool (Acute) Respiratory failure (Acute) Respiratory failure (Acute) Troponin I above reference range (Acute) UTI (urinary tract infection) (Acute) Urinary retention (Acute) Vertebral compression fracture (Acute) Hospital Course: Laboratory Last Values WBC 5.1 K/mm3 (4.0-10.0) 12/21/18 06:00 RBC 3.36 M/mm3 (4.00-5.60) L 12/21/18 06:00 Hgb 9.7 GM/dL (11.7-16.9) L 12/21/18 06:00 Hct 29.4 % (35.4-49) L 12/21/18 06:00 MCV 87.4 fl (80-96) 12/21/18 06:00 MCH 29.0 pg (25.7-33.7) 12/21/18 06:00 MCHC 33.1 g/dl (32.0-35.9) 12/21/18 06:00 RDW 18.5 % (11.9-15.9) H 12/21/18 06:00 Plt Count 188 K/MM3 (134-434) 12/21/18 06:00 MPV 9.0 fl (7.5-11.1) 12/21/18 06:00 Absolute Neuts (auto) 3.6 K/mm3 (1.5-8.0) 12/21/18 06:00 Total Counted 100 12/03/18 05:30 Neutrophils % (Manual) 84.0 % (42.8-82.8) H 12/03/18 05:30 Band Neutrophils % 3.0 % 12/03/18 05:30 Neutrophils % 69.7 % (42.8-82.8) 12/21/18 06:00 Lymphocytes % (Manual) 4.0 % (8-40) L 12/03/18 05:30 Lymphocytes % 21.3 % (8-40) 12/21/18 06:00 Monocytes % (Manual) 2 % (3.8-10.2) L 12/03/18 05:30 Eosinophils % (Manual) 2.0 % (0-4.5) 12/03/18 05:30 Monocytes % 6.5 % (3.8-10.2) 12/21/18 06:00 Eosinophils % 2.0 % (0-4.5) 12/21/18 06:00 Basophils % 0.5 % (0-2.0) 12/21/18 06:00 Nucleated RBC % 0 % (0-0) 12/21/18 06:00 Platelet Estimate Adequate 12/03/18 05:30 Platelet Comment Giant platelets 12/03/18 05:30 Poikilocytosis 2+ 12/03/18 05:30 Basophilic Stippling 1+ 12/03/18 05:30 Tear Drop Cells 1+ 12/03/18 05:30 Ovalocytes 1+ 12/03/18 05:30 Acanthocytes (Spur) 1+ 12/03/18 05:30 PT with INR 17.60 SEC (9.7-13.0) H 12/10/18 05:15 INR 1.49 (0.83-1.09) H 12/10/18 05:15 PTT (Actin FS) 31.9 SECONDS (25.2-36.5) 12/02/18 05:30 Fibrinogen > 500.0 mg/dL (238-498) H 11/25/18 20:00 Anticoagulation Therapy No Result Required. 12/08/18 05:40 Puncture Site Right radial 12/08/18 05:40 Patient Temperature Cancelled 11/26/18 07:40 ABG pH 7.40 (7.35-7.45) 12/08/18 05:40 ABG pCO2 at Pt Temp 45.0 mmHg (35-45) 12/08/18 05:40 ABG pO2 at Pt Temp 86.4 mmHg (80-100) 12/08/18 05:40 ABG HCO3 27.2 meq/L (22-26) H 12/08/18 05:40 ABG O2 Sat (Measured) 95.9 % (90-98.9) 12/08/18 05:40 ABG O2 Content 16.8 % vol (15-22) 12/08/18 05:40 ABG Base Excess 2.5 meq/l (-2-2) H 12/08/18 05:40 Benny Test Positive 12/08/18 05:40 O2 Delivery Device No Result Required. 12/08/18 05:40 Oxygen Flow Rate 40% 12/08/18 05:40 Vent Mode S/t 12/08/18 05:40 Vent Rate 20 12/08/18 05:40 Mechanical Rate No Result Required. 12/08/18 05:40 PEEP 5.0 cmH2O 12/07/18 06:00 Pressure Support Vent 14/6 12/08/18 05:40 Sodium 139 mmol/L (136-145) 12/21/18 06:00 Potassium 5.1 mmol/L (3.5-5.1) 12/21/18 06:00 Chloride 110 mmol/L (98-107) H 12/21/18 06:00 Carbon Dioxide 24 mmol/L (21-32) 12/21/18 06:00 Anion Gap 5 MMOL/L (8-16) L 12/21/18 06:00 BUN 20 mg/dL (7-18) H 12/21/18 06:00 Creatinine 1.4 mg/dL (0.55-1.3) H 12/21/18 06:00 Creat Clearance w eGFR 50.86 (>60) 12/21/18 06:00 POC Glucometer 149 UNITS (80-120) 12/21/18 11:36 Random Glucose 168 mg/dL (74-106) H 12/21/18 06:00 Hemoglobin A1c % 7.7 % (4.2-6.3) H 11/28/18 05:15 Serum Osmolality 271 mosm/kg (278-305) L 11/20/18 21:00 Lactic Acid 0.9 mmol/L (0.4-2.0) 11/20/18 08:30 Uric Acid 4.9 mg/dL (2.6-7.2) 11/26/18 05:30 Calcium 8.2 mg/dL (8.5-10.1) L 12/21/18 06:00 Phosphorus 3.6 mg/dL (2.5-4.9) 12/09/18 06:00 Magnesium 2.2 mg/dL (1.8-2.4) 12/10/18 05:15 Iron 28 ug/dL (38-169) L 11/28/18 05:15 TIBC 245 ug/dL (250-450) L 11/28/18 05:15 Iron Saturation 11 % (15-55) L 11/28/18 05:15 Ferritin 184.3 ng/ml (8-388) 11/28/18 05:15 Total Bilirubin 0.4 mg/dL (0.2-1) 12/21/18 06:00 Direct Bilirubin 0.1 mg/dL (0.0-0.2) 12/17/18 06:15 AST 19 U/L (15-37) 12/21/18 06:00 ALT 28 U/L (13-61) 12/21/18 06:00 Alkaline Phosphatase 123 U/L (45-117) H 12/21/18 06:00 LD Total 297 U/L (87-246) H 11/26/18 05:30 Ammonia 17.10 umol/L (11-32) 12/17/18 05:50 Creatine Kinase 180 U/L (26-308) 11/30/18 16:00 Creatine Kinase Index 5.6 % (0.0-5.0) H 11/30/18 16:00 CK-MB (CK-2) 10.2 ng/mL (0.5-3.6) H 11/30/18 16:00 CK-BB (CK-1) 0 % TOTAL (0) 11/25/18 20:00 CK/CKMB % Calc 0 % (0-3) 11/25/18 20:00 Troponin I 0.07 ng/ml (0.00-0.05) H 12/17/18 05:50 Total Protein 5.9 g/dl (6.4-8.2) L 12/21/18 06:00 Albumin 2.4 g/dl (3.4-5.0) L 12/21/18 06:00 Lipase 242 U/L (73-393) 11/20/18 08:30 Tumor Marker AFP 5.0 ng/ml (0.0-8.3) 12/17/18 05:50 Vitamin B12 1332 pg/ml (193-986) H 12/17/18 05:50 Serum Folate 16 ng/mL (3.1-17.5) 12/17/18 05:50 Free T4 1.04 ng/dl (0.76-1.16) 11/28/18 05:15 TSH 2.41 uIU/ml (0.358-3.74) D 12/17/18 05:50 Urine Color Yellow 12/19/18 00:35 Urine Appearance Slcloudy 12/19/18 00:35 Urine pH 5.0 (5.0-8.0) 12/19/18 00:35 Ur Specific [place] 1.018 (1.010-1.035) 12/19/18 00:35 Urine Protein 3+ (NEGATIVE) H 12/19/18 00:35 Urine Glucose (UA) 2+ (NEGATIVE) H 12/19/18 00:35 Urine Ketones Negative (NEGATIVE) 12/19/18 00:35 Urine Blood 1+ (NEGATIVE) H 12/19/18 00:35 Urine Nitrite Negative (NEGATIVE) 12/19/18 00:35 Urine Bilirubin Negative (<2.0 mg/dL) 12/19/18 00:35 Urine Urobilinogen Negative mg/dL (0.2-1.0) 12/19/18 00:35 Ur Leukocyte Esterase Negative (NEGATIVE) 12/19/18 00:35 Urine WBC (Auto) 3 /hpf (3-5) 12/19/18 00:35 Urine RBC (Auto) 2 /hpf (0-3) 12/19/18 00:35 Ur Epithelial Cells Rare /HPF (FEW) 12/19/18 00:35 Granular Casts 37 /lpf 12/05/18 21:00 Urine Bacteria Rare /hpf (NONE SEEN) 12/19/18 00:35 Urine Yeast Moderate 12/05/18 21:00 Urine Mucus Rare 12/19/18 00:35 Urine Osmolality 227 mosm/kg (300-900) L 11/21/18 09:15 U Random Total Protein 185.4 mg/dl (0-11.9) H 11/21/18 09:15 Ur Random Sodium 24 MMOL/L (40-220) L 12/13/18 10:53 Ur Random Potassium 36.0 MMOL/L (25-125) 12/13/18 10:53 Ur Random Chloride < 11 MMOL/L (110-250) L 12/13/18 10:53 Urine Creatinine 136.0 mg/dL (20-320) 12/13/18 10:53 Protein/Creatinin Ratio 8.420 MG/DL 11/21/18 09:15 Stool Occult Blood Positive (NEGATIVE) 11/29/18 17:30 Vancomycin Pre-Dose 20.6 ug/ml (18-26) 12/02/18 09:00 Random Vancomycin 29.7 ug/ml (18-26) H 12/11/18 06:10 Free [place] LC, Quant 1093.6 mg/L (3.3-19.4) H 12/17/18 05:50 Free [place] LC, Quant 16.1 mg/L (5.7-26.3) 12/17/18 05:50 Free [place]/Lambda Ratio 67.93 (0.26-1.65) H 12/17/18 05:50 Hepatitis A Ab Total Negative (Negative) 12/10/18 05:15 Hep Bs Antigen Negative (Negative) 12/10/18 05:15 Hep Bs Antibody Reactive (.) 12/10/18 05:15 Hep B Core Total Ab Positive (Negative) H 12/10/18 05:15 Hep C Ab Diagnostic >11.0 s/co ratio (0.0-0.9) H 11/22/18 05:30 HCV Quantitation Hcv not detected IU/mL (.) 11/22/18 05:30 HCV RNA PCR w/Genot Rflx Hcv not detected IU/mL (.) 11/22/18 05:30 HCV RNA log copies/mL TNP 11/22/18 05:30 Liver Fibrosis Interp (.) 11/22/18 05:30 Blood Type A POSITIVE 11/28/18 12:20 Antibody Screen Negative 11/28/18 12:20 Crossmatch See Detail 11/28/18 12:20 Microbiology 12/19/18 00:35 Urine - Urine - Catheterized Urine Culture - Final Vr Ec Faecium Presumptive Ps Aeruginosa 12/18/18 20:07 Blood - Peripheral Venous Blood Culture - Preliminary NO GROWTH OBTAINED AFTER 48 HOURS, INCUBATION TO CONTINUE FOR 3 DAYS. 12/18/18 19:58 Blood - Peripheral Venous Blood Culture - Preliminary NO GROWTH OBTAINED AFTER 48 HOURS, INCUBATION TO CONTINUE FOR 3 DAYS. 12/06/18 09:28 Blood - Peripheral Venous Blood Culture - Final NO GROWTH AFTER 5 DAYS INCUBATION 12/06/18 09:10 Blood - Peripheral Venous Blood Culture - Final NO GROWTH AFTER 5 DAYS INCUBATION 12/05/18 20:40 Urine - Urine Massey Urine Culture - Final Escherichia Coli 12/02/18 20:30 Blood - Peripheral Venous Blood Culture - Final NO GROWTH AFTER 5 DAYS INCUBATION 12/02/18 19:30 Blood - Peripheral Venous Blood Culture - Final NO GROWTH AFTER 5 DAYS INCUBATION 12/06/18 14:55 Stool Clostridium difficile Antigen (NGUYEN) - Final 12/06/18 14:55 Stool Clostridium difficile Toxin Assay - Final 12/03/18 11:30 Sputum - Endotrachea Suction/Ventilator Gram Stain - Final 12/03/18 11:30 Sputum - Endotrachea Suction/Ventilator Sputum Culture - Final Serratia Marcescens 11/25/18 20:10 Blood - Peripheral Venous Blood Culture - Final NO GROWTH AFTER 5 DAYS INCUBATION 11/25/18 20:00 Blood - Peripheral Venous Blood Culture - Final NO GROWTH AFTER 5 DAYS INCUBATION 11/28/18 10:40 Sputum - Endotrachea Suction/Ventilator Gram Stain - Final 11/28/18 10:40 Sputum - Endotrachea Suction/Ventilator Sputum Culture - Final S Aureus 11/25/18 20:10 Urine - Urine Massey Urine Culture - Final NO GROWTH OBTAINED 11/26/18 13:20 Urine For Antigen Detection Legionella Antigen - Final 11/26/18 13:20 Urine For Antigen Detection Streptococcus pneumoniae Antigen (M - Final 11/20/18 08:11 Urine - Urine Clean Catch Urine Culture - Final NO GROWTH OBTAINED Vital Signs Temp 98.2 F 12/21/18 06:00 Pulse 104 H 12/21/18 06:00 Resp 20 12/21/18 06:00 BP 146/98 12/21/18 06:00 Pulse Ox 98 12/20/18 21:00 Intake & Output 12/20/18 12/20/18 12/21/18 11:59 23:59 11:59 Intake Total 894 650 Output Total 400 800 900 Balance 494 -150 -900 Intake: IV 504 D5w - 1,000 ml @ 42 mls/ 504 hr IV Q23H YAKOV Rx#: [id number] IVPB 100 Oral 290 650 Output: Urine 400 800 900 Massey 400 800 900 Other: Voiding Method Diaper Indwelling Catheter Bowel Movement Yes Yes # Bowel Movements 1 1 Condition: Stable - Instructions Referrals: Martin Medrano MD [Primary Care Provider] - Disposition: INTERMEDIATE FACILITY - Home Medications Comprehensive Discharge Medication List: Ambulatory Orders Albuterol Sulfate Inhaler - [Ventolin HFA Inhaler -] 2 puff PO QID PRN 06/07/15 Aspirin [Aspirin EC] 81 mg PO DAILY 06/07/15 Enalapril Maleate [Vasotec -] 20 mg PO DAILY 06/07/15 Insulin Glargine,Hum.rec.anlog [Lantus (10mL VIAL) -] 40 unit SQ HS 06/07/15 Salmeterol/Fluticasone [Advair 100Mcg/50Mcg -] 1 puff PO BID 06/07/15 Sertraline HCl 50 mg PO DAILY 06/07/15 metFORMIN HCL [Metformin HCl] 1,000 mg PO BID 06/07/15 Acetaminophen [Tylenol .Regular Strength -] 650 mg PO Q6H PRN #0 tablet Methadone [Dolophine -] 70 mg PO DAILY 01/30/16 Buspirone HCl 15 mg PO BID 07/22/18 Metoprolol Tartrate [Lopressor -] 25 mg PO BID #60 tablet 07/27/18 Nifedipine ER [Procardia XL -] 30 mg PO DAILY #30 tab.er.24 07/27/18
--- NOTE | 2018-12-21 12:09 | PN ---
Progress Note, Physician History of Present Illness: Pt seen and examined at bedside. He is awake and appears comfortable. He denies shortness of breath. - Current Medication List Current Medications: Active Medications Acetaminophen (Tylenol -) 500 mg PO Q6H PRN PRN Reason: HEADACHE Last Admin: 12/20/18 22:19 Dose: 500 mg Artificial Tears (Lacri-Lube Eye Ointment -) 1 applic OD HS PRN PRN Reason: DRY EYES Last Admin: 12/10/18 22:49 Dose: 1 applic Aspirin (Asa -) 81 mg NGT DAILY [facility] Last Admin: 12/21/18 10:45 Dose: 81 mg Atorvastatin Calcium (Lipitor -) 80 mg NGT HS [facility] Last Admin: 12/20/18 22:19 Dose: 80 mg Buspirone HCl 10 mg/ Buspirone (HCl 5 mg) 15 mg NR BID [facility] Last Admin: 12/21/18 10:46 Dose: 15 mg Calcium Carbonate/Cholecalciferol (Os-Kyler 500+D -) 2 tab NGT DAILY [facility] Last Admin: 12/21/18 10:45 Dose: 2 tab Heparin Sodium (Porcine) (Heparin -) 5,000 unit SQ BID [facility] Insulin Aspart (Novolog Vial Sliding Scale -) 1 vial SQ TIDAC [facility]; Protocol Last Admin: 12/21/18 06:22 Dose: Not Given Insulin Detemir (Levemir Vial) 20 units SQ HS [facility] Last Admin: 12/20/18 22:20 Dose: 20 units Lactic Acid (Lac-Hydrin 12) 1 applic TP BID PRN PRN Reason: xerosis Last Admin: 12/19/18 09:20 Dose: 1 applic Methadone HCl (Dolophine -) 20 mg NGT DAILY@0600 [facility] Methylnaltrexone [place] (Relistor -) 8 mg SQ Q2D@1000 [facility] Last Admin: 12/20/18 13:00 Dose: 8 mg Metoprolol Tartrate (Lopressor -) 25 mg PO BID [facility] Last Admin: 12/21/18 10:45 Dose: 25 mg Nystatin (Nystatin Oral Suspension -) 500,000 units PO Q6HPO [facility] Last Admin: 12/21/18 06:14 Dose: 500,000 units Pantoprazole Sodium (Protonix Packets For Oral Suspension -) 40 mg NGT DAILY [facility] Last Admin: 12/21/18 10:45 Dose: 40 mg Polyethylene Glycol (Miralax (For Daily Use) -) 17 gm PO BID [facility] Last Admin: 12/21/18 10:47 Dose: 17 gm Tamsulosin HCl (Flomax -) 0.8 mg PO DAILY@0830 [facility] Last Admin: 12/21/18 09:05 Dose: 0.8 mg Tiotropium [place] (Spiriva Respimat) 2 puff IH DAILY [facility] Last Admin: 12/21/18 10:47 Dose: 2 puff Valacyclovir HCl (Valtrex -) 500 mg NGT DAILY [facility] Last Admin: 12/21/18 10:45 Dose: 500 mg - Objective Vital Signs: Vital Signs Temperature 98.2 F 12/21/18 06:00 Pulse Rate 104 H 12/21/18 06:00 Respiratory Rate 20 12/21/18 06:00 Blood Pressure 146/98 12/21/18 06:00 O2 Sat by Pulse Oximetry (%) 98 12/20/18 21:00 Constitutional: Yes: Calm Eyes: Yes: Conjunctiva Clear HENT: Yes: Atraumatic Cardiovascular: Yes: S1, S2 Respiratory: Yes: CTA Bilaterally Gastrointestinal: Yes: Normal Bowel Sounds, Soft Genitourinary: Yes: Massey Present Musculoskeletal: Yes: WNL Edema: LLE: Trace, RLE: Trace Neurological: Yes: Oriented Psychiatric: Yes: Oriented Labs: CBC, BMP 12/21/18 06:00 12/21/18 06:00 INR, PTT INR 1.49 (0.83-1.09) H 12/10/18 05:15 Fibrinogen > 500.0 mg/dL (238-498) H 11/25/18 20:00 Problem List - Problems (1) CKD (chronic kidney disease) Code(s): N18.9 - CHRONIC KIDNEY DISEASE, UNSPECIFIED (2) Constipation Code(s): K59.00 - CONSTIPATION, UNSPECIFIED Qualifiers: Constipation type: unspecified constipation type Qualified Code(s): K59.00 - Constipation, unspecified (3) Hyponatremia Code(s): E87.1 - HYPO-OSMOLALITY AND HYPONATREMIA Assessment/Plan Current Medications Generic Name Dose Route Start Last Admin Trade Name Freq PRN Reason Stop Dose Admin Acetaminophen 500 mg 12/14/18 20:46 12/20/18 22:19 Tylenol - PO 500 mg Q6H PRN Administration HEADACHE Artificial Tears 1 applic 12/10/18 22:05 12/10/18 22:49 Lacri-Lube Eye Ointment - OD 1 applic HS PRN Administration DRY EYES Aspirin 81 mg 12/09/18 10:00 12/21/18 10:45 Asa - NGT 81 mg DAILY YAKOV Administration Atorvastatin Calcium 80 mg 12/08/18 22:00 12/20/18 22:19 Lipitor - NGT 80 mg HS YAKOV Administration Buspirone HCl 10 mg/ Buspirone 15 mg 12/20/18 10:00 12/21/18 10:46 HCl 5 mg NR 15 mg BID YAKOV Administration Calcium Carbonate/Cholecalciferol 2 tab 12/09/18 10:00 12/21/18 10:45 Os-Kyler 500+D - NGT 2 tab DAILY YAKOV Administration Heparin Sodium (Porcine) 5,000 unit 12/21/18 22:00 Heparin - SQ BID [facility] Insulin Aspart 1 vial 12/14/18 17:00 12/21/18 06:22 Novolog Vial Sliding Scale - SQ Not Given TIDAC [facility] Protocol Insulin Detemir 20 units 12/08/18 22:00 12/20/18 22:20 Levemir Vial SQ 20 units HS YAKOV Administration Lactic Acid 1 applic 12/16/18 21:22 12/19/18 09:20 Lac-Hydrin 12 TP 1 applic BID PRN Administration xerosis Methadone HCl 20 mg 12/22/18 06:00 Dolophine - NGT DAILY@0600 [facility] Methylnaltrexone [place] 8 mg 12/18/18 10:00 12/20/18 13:00 Relistor - SQ 8 mg Q2D@1000 [facility] Administration Metoprolol Tartrate 25 mg 12/08/18 22:00 12/21/18 10:45 Lopressor - PO 25 mg BID YAKOV Administration Nystatin 500,000 units 12/20/18 00:00 12/21/18 06:14 Nystatin Oral Suspension - PO 500,000 units Q6HPO YAKOV Administration Pantoprazole Sodium 40 mg 12/12/18 10:00 12/21/18 10:45 Protonix Packets For Oral Suspension - NGT 40 mg DAILY YAKOV Administration Polyethylene Glycol 17 gm 12/15/18 22:00 12/21/18 10:47 Miralax (For Daily Use) - PO 17 gm BID YAKOV Administration Tamsulosin HCl 0.8 mg 12/21/18 08:30 12/21/18 09:05 Flomax - PO 0.8 mg DAILY@0830 YAKOV Administration Tiotropium [place] 2 puff 12/09/18 10:00 12/21/18 10:47 Spiriva Respimat IH 2 puff DAILY YAKOV Administration Valacyclovir HCl 500 mg 12/09/18 10:00 12/21/18 10:45 Valtrex - NGT 500 mg DAILY YAKOV Administration Impression 1. hyponatremia 2. CKD 3. nausea and vomiting 4. htn 5. DM 6. 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 multiple myeloma 9. anemia 10. proteinuria 11. hyperkalemia 12. resp failure 13. volume overload 14. hypernatremia 15. hyperkalemia Plan - will need to monitor volume status and evaluate for diuretics - will likely need to restart lasix soon as his po intake is improving - cont to monitor renal function - potassium is stable - repeat labs in am Dr Cates
--- NOTE | 2018-12-21 12:36 | PN ---
Progress Note, Physician History of Present Illness: pulmonary alert,no distress,-cp,-cough - Current Medication List Current Medications: Active Medications Acetaminophen (Tylenol -) 500 mg PO Q6H PRN PRN Reason: HEADACHE Last Admin: 12/20/18 22:19 Dose: 500 mg Artificial Tears (Lacri-Lube Eye Ointment -) 1 applic OD HS PRN PRN Reason: DRY EYES Last Admin: 12/10/18 22:49 Dose: 1 applic Aspirin (Asa -) 81 mg NGT DAILY [facility] Last Admin: 12/21/18 10:45 Dose: 81 mg Atorvastatin Calcium (Lipitor -) 80 mg NGT HS [facility] Last Admin: 12/20/18 22:19 Dose: 80 mg Buspirone HCl 10 mg/ Buspirone (HCl 5 mg) 15 mg NR BID [facility] Last Admin: 12/21/18 10:46 Dose: 15 mg Calcium Carbonate/Cholecalciferol (Os-Kyler 500+D -) 2 tab NGT DAILY [facility] Last Admin: 12/21/18 10:45 Dose: 2 tab Heparin Sodium (Porcine) (Heparin -) 5,000 unit SQ BID [facility] Insulin Aspart (Novolog Vial Sliding Scale -) 1 vial SQ TIDAC [facility]; Protocol Last Admin: 12/21/18 12:24 Dose: Not Given Insulin Detemir (Levemir Vial) 20 units SQ HS [facility] Last Admin: 12/20/18 22:20 Dose: 20 units Lactic Acid (Lac-Hydrin 12) 1 applic TP BID PRN PRN Reason: xerosis Last Admin: 12/19/18 09:20 Dose: 1 applic Methadone HCl (Dolophine -) 20 mg NGT DAILY@0600 [facility] Methylnaltrexone [place] (Relistor -) 8 mg SQ Q2D@1000 [facility] Last Admin: 12/20/18 13:00 Dose: 8 mg Metoprolol Tartrate (Lopressor -) 25 mg PO BID [facility] Last Admin: 12/21/18 10:45 Dose: 25 mg Nystatin (Nystatin Oral Suspension -) 500,000 units PO Q6HPO [facility] Last Admin: 12/21/18 12:24 Dose: 500,000 units Pantoprazole Sodium (Protonix Packets For Oral Suspension -) 40 mg NGT DAILY [facility] Last Admin: 12/21/18 10:45 Dose: 40 mg Polyethylene Glycol (Miralax (For Daily Use) -) 17 gm PO BID [facility] Last Admin: 12/21/18 10:47 Dose: 17 gm Tamsulosin HCl (Flomax -) 0.8 mg PO DAILY@0830 [facility] Last Admin: 12/21/18 09:05 Dose: 0.8 mg Tiotropium [place] (Spiriva Respimat) 2 puff IH DAILY [facility] Last Admin: 12/21/18 10:47 Dose: 2 puff Valacyclovir HCl (Valtrex -) 500 mg NGT DAILY [facility] Last Admin: 12/21/18 10:45 Dose: 500 mg - Objective Vital Signs: Vital Signs Temperature 98 F 12/21/18 10:00 Pulse Rate 93 H 12/21/18 10:00 Respiratory Rate 20 12/21/18 10:00 Blood Pressure 127/81 12/21/18 10:00 O2 Sat by Pulse Oximetry (%) 98 12/21/18 09:00 Constitutional: Yes: Well Nourished, Calm Eyes: Yes: WNL HENT: Yes: WNL Neck: Yes: WNL Cardiovascular: Yes: Regular Rate and Rhythm, S1, S2 Respiratory: Yes: Diminished Gastrointestinal: Yes: Normal Bowel Sounds, Soft Extremities: Yes: WNL Edema: No Labs: CBC, BMP 12/21/18 06:00 12/21/18 06:00 INR, PTT INR 1.49 (0.83-1.09) H 12/10/18 05:15 Fibrinogen > 500.0 mg/dL (238-498) H 11/25/18 20:00 Problem List - Problems (1) Acute hypoxemic respiratory failure Code(s): J96.01 - ACUTE RESPIRATORY FAILURE WITH HYPOXIA (2) Anemia Code(s): D64.9 - ANEMIA, UNSPECIFIED (3) CKD (chronic kidney disease) Code(s): N18.9 - CHRONIC KIDNEY DISEASE, UNSPECIFIED (4) Elevated liver enzymes Code(s): R74.8 - ABNORMAL LEVELS OF OTHER SERUM ENZYMES (5) Elevated troponin Code(s): R74.8 - ABNORMAL LEVELS OF OTHER SERUM ENZYMES (6) Pulmonary congestion Code(s): R09.89 - OTH SYMPTOMS AND SIGNS INVOLVING THE CIRC AND RESP SYSTEMS (7) Respiratory failure Code(s): J96.90 - RESPIRATORY FAILURE, UNSP, UNSP W HYPOXIA OR HYPERCAPNIA Assessment/Plan ASSESSMENT AND PLAN: Acute Hypoxic and Hypercapneic Respiratory Failure improved Acute Pulmonary Edema Acute NSTEMI r/o Pneumonia UTI Acute on Chronic Renal Failure HTN DM COPD Methadone Maintenance MM - monitor urine output, creatinine - monitor lytes - ASA - inhaled bronchodilators - aspiration precautions - rehab/PT - DVT/GI prophylaxis DR WAGNER
--- NOTE | 2018-12-21 12:38 | PN ---
Progress Note (short form) - Note Progress Note: 63 year old male history of HTN,HLD,DM,Hep C, PVD, Opioid abuse on methadone, MM started on chemo. Initially he presented to hospital for abdominal distension adn constipation. During coarse of hospitalization he was intubated and was on abx. Patient is trasnferred to floor from ICU. He was seen by neurosurgery and mri of whole spine was done in oct, no surgical lesion identified. Initially,Patient was seen by dr leal for mental status change . Patient is feeling weak and no bowel or bladder incontinence. He denies any sensory loss . He did have hitsory of diabetic neuropathy Patient was seen yesterday and today as well. patinet was much bright yesterday and oriented x 2 and knew what date it is . patient seems to just woke up and slightly confused NEUROLOGICAL Exmination Alert , oriented x 2 and knew what date yesterday and today seems to be slightly confused eomi, pupils reactive, moving all extremity grade 5- generalized, planter flexion and hip flexion is grade 4- upper extremity grade 5- and elbow extension and shoulder flexion is grade 4- there is frozen shoulder reflex are grade 1 generalized sensation is alton;l gait not tested MRI of C/T/L spine reviewed in chart Neurosurgery adn Previous Neurology note appreciated mri of brain showed there is no acute fidnings Assessment/Plan 1.Generalized weakness seems to be deconditioning and critical illness neuropathy, Patient also have history of Diabetic neuropathy and bilateral foot drop. conintue PT and supportive care. Unlikely to be cord compression. 2. Mental status has improved, , likely to be multifactorial ( critical illness encephalopathy ?possible Hypoxic encephalopathy with background history of substance absue and cogntive dysfunction. Over all prognosis is guarded . Maximum recovery happens in three months and some recovery goes on till 2 years. Thanking you so much Dvo Gaston md
--- NOTE | 2018-12-21 19:16 | PN ---
Progress Note (short form) - Note Progress Note: Patient seen and examined in icu awake, alert confusion improved AFVSS Cor: RSR, No murmurs, No gallops Lungs: Clear to auscultation anteriorly Abd: Soft, Normal bowel sounds, No organomegaly Ext:chronic stasis dermatitis Labs/meds reviewed A/P 63 y/o patient with multiple comorbidites, HTN, DM, PVD, ? COPD, CKD, recently diagnosed myeloma, vertebral fractures on velcade/cytoxan/dexamethasone/zometa. Admitted with severe constipation and hyponatremia. Was on golytely for constipation and hydration for hyponatremia Developed acute resp. distress and high BPs evening of 11/25 ? flash pulmonary edema + pneumonia CXR-airspace opacities was diuresed and placed on antibiotics + troponins-- received ceftazidime for UTI and serratia in sputum and vancomycin for MRSA in sputum Myeloma--on velcade/cytoxan/dex --last dose 11/18 On zometa--11/18 treatment on hold due to critical illness neuropathy light chains decreasing slowly s/p rt to lspine and left acetabular fx will consider rev/dex Renal impairment improved encephalopathy-- ? multifactorial--toxic metabolic MRI negative Discussed with neurology team critical illness neuropathy thrush--nystatin discused with daughters d/c planning
[2018-12-21] MEDS: ATORVASTATIN CA 80 MG TABLET (FP) NGT SCH (21:16)
[2018-12-21] MEDS: INSULIN (LEVEMIR) 100 UNITS/ML UNITS SQ SCH (21:17)
[2018-12-22] MEDS: NYSTATIN 500,000 UNITS/5 ML SUSPENSION PO SCH ×4 (05:38→23:24)
[2018-12-22] MEDS ORDERED: METHADONE HCL 40 MG DISPERSABLE TABLET NGT SCH (06:00)
[2018-12-22] MEDS: INSULIN SLIDING SCALE (NOVOLOG) 1 VIAL SQ SCH ×3 (06:36→17:29)
[2018-12-22 08:41] LABS: ALBUMIN 2.4 g/dl (3.4-5.0); ALK PHOS 111 U/L (45-117); ANION GAP 6 MMOL/L (8-16); BILIRUBIN,TOTAL 0.3 mg/dL (0.2-1); BLOOD UREA NITROGEN 16 mg/dL (7-18); CALCIUM 7.9 mg/dL (8.5-10.1); CHLORIDE 110 mmol/L (98-107); CO2 25 mmol/L (21-32); CREATININE 1.5 mg/dL (0.55-1.3); GLUCOSE,RANDOM 123 mg/dL (74-106); POTASSIUM 4.5 mmol/L (3.5-5.1); SGOT/AST 22 U/L (15-37); SGPT/ALT 26 U/L (13-61); SODIUM 140 mmol/L (136-145); TOT PROT 5.8 g/dl (6.4-8.2)
--- NOTE | 2018-12-22 09:15 | PN ---
Progress Note (short form) - Note Progress Note: Denies any complaints Alert Oriented x3 today Vital Signs Period Temp Pulse Resp BP Sys/Andre Pulse Ox Last 24 Hr 98.0 F-99.2 F 82-98 16-20 120-149/61-88 95-95 PE: AOx3 HEENT: EoMi Neck: Supple, No JVD Lungs: CTA CVS: S1S2 Abd: Benign Ext: No edema CMP Sodium 140 mmol/L (136-145) 12/22/18 07:15 Potassium 4.5 mmol/L (3.5-5.1) 12/22/18 07:15 Chloride 110 mmol/L (98-107) H 12/22/18 07:15 Carbon Dioxide 25 mmol/L (21-32) 12/22/18 07:15 Anion Gap 6 MMOL/L (8-16) L 12/22/18 07:15 BUN 16 mg/dL (7-18) 12/22/18 07:15 Creatinine 1.5 mg/dL (0.55-1.3) H 12/22/18 07:15 Creat Clearance w eGFR 46.97 (>60) 12/22/18 07:15 POC Glucometer 171 UNITS (80-120) 12/22/18 17:24 Random Glucose 123 mg/dL (74-106) H 12/22/18 07:15 Hemoglobin A1c % 7.7 % (4.2-6.3) H 11/28/18 05:15 Serum Osmolality 271 mosm/kg (278-305) L 11/20/18 21:00 Lactic Acid 0.9 mmol/L (0.4-2.0) 11/20/18 08:30 Uric Acid 4.9 mg/dL (2.6-7.2) 11/26/18 05:30 Calcium 7.9 mg/dL (8.5-10.1) L 12/22/18 07:15 Phosphorus 3.6 mg/dL (2.5-4.9) 12/09/18 06:00 Magnesium 2.2 mg/dL (1.8-2.4) 12/10/18 05:15 Iron 28 ug/dL (38-169) L 11/28/18 05:15 TIBC 245 ug/dL (250-450) L 11/28/18 05:15 Iron Saturation 11 % (15-55) L 11/28/18 05:15 Ferritin 184.3 ng/ml (8-388) 11/28/18 05:15 Total Bilirubin 0.3 mg/dL (0.2-1) 12/22/18 07:15 Direct Bilirubin 0.1 mg/dL (0.0-0.2) 12/17/18 06:15 AST 22 U/L (15-37) 12/22/18 07:15 ALT 26 U/L (13-61) 12/22/18 07:15 Alkaline Phosphatase 111 U/L (45-117) 12/22/18 07:15 LD Total 297 U/L (87-246) H 11/26/18 05:30 Ammonia 17.10 umol/L (11-32) 12/17/18 05:50 Creatine Kinase 180 U/L (26-308) 11/30/18 16:00 Creatine Kinase Index 5.6 % (0.0-5.0) H 11/30/18 16:00 CK-MB (CK-2) 10.2 ng/mL (0.5-3.6) H 11/30/18 16:00 CK-BB (CK-1) 0 % TOTAL (0) 11/25/18 20:00 CK/CKMB % Calc 0 % (0-3) 11/25/18 20:00 Troponin I 0.07 ng/ml (0.00-0.05) H 12/17/18 05:50 Total Protein 5.8 g/dl (6.4-8.2) L 12/22/18 07:15 Albumin 2.4 g/dl (3.4-5.0) L 12/22/18 07:15 Lipase 242 U/L (73-393) 11/20/18 08:30 Tumor Marker AFP 5.0 ng/ml (0.0-8.3) 12/17/18 05:50 Vitamin B12 1332 pg/ml (193-986) H 12/17/18 05:50 Serum Folate 16 ng/mL (3.1-17.5) 12/17/18 05:50 Free T4 1.04 ng/dl (0.76-1.16) 11/28/18 05:15 TSH 2.41 uIU/ml (0.358-3.74) D 12/17/18 05:50 Current Medications Generic Name Dose Route Start Last Admin Trade Name Freq PRN Reason Stop Dose Admin Acetaminophen 500 mg 12/14/18 20:46 12/20/18 22:19 Tylenol - PO 500 mg Q6H PRN Administration HEADACHE Artificial Tears 1 applic 12/10/18 22:05 12/10/18 22:49 Lacri-Lube Eye Ointment - OD 1 applic HS PRN Administration DRY EYES Aspirin 81 mg 12/22/18 14:52 Asa - PO DAILY [facility] Atorvastatin Calcium 80 mg 12/22/18 14:53 Lipitor - PO HS [facility] Buspirone HCl 10 mg/ Buspirone 15 mg 12/22/18 14:53 HCl 5 mg PO BID [facility] Calcium Carbonate/Cholecalciferol 2 tab 12/22/18 14:53 Os-Kyler 500+D - PO DAILY [facility] Heparin Sodium (Porcine) 5,000 unit 12/21/18 22:00 12/22/18 09:43 Heparin - SQ 5,000 unit BID [facility] Administration Insulin Aspart 1 vial 12/14/18 17:00 12/22/18 17:29 Novolog Vial Sliding Scale - SQ 2 units TIDAC [facility] Administration Protocol Insulin Detemir 20 units 12/08/18 22:00 12/21/18 21:17 Levemir Vial SQ 20 units HS [facility] Administration Lactic Acid 1 applic 12/16/18 21:22 12/19/18 09:20 Lac-Hydrin 12 TP 1 applic BID PRN Administration xerosis Methadone HCl 20 mg 12/22/18 14:53 Dolophine - PO DAILY@0600 [facility] Methylnaltrexone [place] 8 mg 12/18/18 10:00 12/22/18 11:01 Relistor - SQ 8 mg Q2D@1000 [facility] Administration Metoprolol Tartrate 25 mg 12/08/18 22:00 12/22/18 09:42 Lopressor - PO 25 mg BID [facility] Administration Nystatin 500,000 units 12/20/18 00:00 12/22/18 17:29 Nystatin Oral Suspension - PO 500,000 units Q6HPO [facility] Administration Pantoprazole Sodium 40 mg 12/22/18 14:53 Protonix Packets For Oral Suspension - PO DAILY [facility] Polyethylene Glycol 17 gm 12/15/18 22:00 12/22/18 09:44 Miralax (For Daily Use) - PO 17 gm BID [facility]AKOV Administration Tamsulosin HCl 0.8 mg 12/21/18 08:30 12/22/18 09:42 Flomax - PO 0.8 mg DAILY@0830 YAKOV Administration Tiotropium [place] 2 puff 12/09/18 10:00 12/22/18 11:00 Spiriva Respimat IH 2 puff DAILY [facility] Administration Valacyclovir HCl 500 mg 12/22/18 14:53 Valtrex - PO DAILY [facility] AP: T2DM: Insulin requiring A1c on 07.21.18 was 7.3 and 7.7 on 11.28.28 Multiple myeloma- not in remission Bone mets Acute NSTEMI Acute hypoxic respiratory failure:improving Sepsis improved Anemia DARIO- improved Confusion - improving BGM QACHS Continue Levemir 20 units daily NOvolog SS coverage premeals Discussed with daughter at bedside Will f/u
[2018-12-22] MEDS: METOPROLOL TARTRATE 25 MG TABLET (FP) PO SCH ×2 (09:42→21:35)
[2018-12-22] MEDS: PANTOPRAZOLE SOD 40 MG SUSPENSION PACKET NGT SCH (09:42)
[2018-12-22] MEDS: CALCIUM 500MG/VIT-D 200 UNITS COMBO TABLET (FP) NGT SCH (09:42)
[2018-12-22] MEDS: TAMSULOSIN HCL 0.4 MG CAP PO SCH (09:42)
[2018-12-22] MEDS: HEPARIN NA (PORCINE) 5,000 UNITS/ML 1ML VIAL SQ SCH ×2 (09:43→21:35)
[2018-12-22] MEDS: valACYclovir HCL 500 MG TABLET (FP) NGT SCH (09:43)
[2018-12-22] MEDS: BUSPIRONE HCL 10 MG, BUSPIRONE HCL 5 MG NR SCH (09:43)
[2018-12-22] MEDS: POLYETHYLENE GLYCOL 3350 119 GM BTL PO SCH ×2 (09:44→21:36)
[2018-12-22] MEDS: ASPIRIN 81 MG CHEWABLE TABLETS NGT SCH (09:44)
[2018-12-22] MEDS ORDERED: PT OWN MED DRAWER 7, Y5N ONE ×2 (10:57→21:29)
[2018-12-22] MEDS: TIOTROPIUM BROMIDE 2.5 MCG (SPIRIVA) RESPIMAT INHALER IH SCH (11:00)
[2018-12-22] MEDS: Methylnaltrexone Bromide 12 MG/0.6 ML KIT SQ SCH (11:01)
--- NOTE | 2018-12-22 11:44 | PN ---
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 myeloma anemia proteinuria s/p hyperkalemia s/p extubation Acute respiratory failure History of Present Illness: NAD lethargic more alert, confused but follows commands Massey re-inserted for retention Still has NGT On dysphagia puree diet Hyperkalemic today Myeloma--on velcade/cytoxan/dex --last dose 11/18 On zometa--11/18 treatment on hold light chains decreasing slowly s/p rt to lspine and left acetabular fx Plan to start on Decadron On methadone from [facility]-# Originally on 80 mg, tapered down to 20 mg now No history in RN ORTHOPEDIC met with daughter and , who had no idea that pt has been on methadone outpatient - Current Medication List Current Medications: Active Medications Acetaminophen (Tylenol -) 500 mg PO Q6H PRN PRN Reason: HEADACHE Last Admin: 12/20/18 22:19 Dose: 500 mg Artificial Tears (Lacri-Lube Eye Ointment -) 1 applic OD HS PRN PRN Reason: DRY EYES Last Admin: 12/10/18 22:49 Dose: 1 applic Aspirin (Asa -) 81 mg NGT DAILY [facility] Last Admin: 12/22/18 09:44 Dose: 81 mg Atorvastatin Calcium (Lipitor -) 80 mg NGT HS [facility] Last Admin: 12/21/18 21:16 Dose: 80 mg Buspirone HCl 10 mg/ Buspirone (HCl 5 mg) 15 mg NR BID [facility] Last Admin: 12/22/18 09:43 Dose: 15 mg Calcium Carbonate/Cholecalciferol (Os-[place]yler 500+D -) 2 tab NGT DAILY [facility] Last Admin: 12/22/18 09:42 Dose: 2 tab Heparin Sodium (Porcine) (Heparin -) 5,000 unit SQ BID [facility] Last Admin: 12/22/18 09:43 Dose: 5,000 unit Insulin Aspart (Novolog Vial Sliding Scale -) 1 vial SQ TIDAC [facility]; Protocol Last Admin: 12/22/18 11:04 Dose: 4 units Insulin Detemir (Levemir Vial) 20 units SQ HS [facility]AKOV Last Admin: 12/21/18 21:17 Dose: 20 units Lactic Acid (Lac-Hydrin 12) 1 applic TP BID PRN PRN Reason: xerosis Last Admin: 12/19/18 09:20 Dose: 1 applic Methadone HCl (Dolophine -) 20 mg NGT DAILY@0600 [facility] Last Admin: 12/22/18 05:38 Dose: 20 mg Methylnaltrexone [place] (Relistor -) 8 mg SQ Q2D@1000 [facility] Last Admin: 12/22/18 11:01 Dose: 8 mg Metoprolol Tartrate (Lopressor -) 25 mg PO BID [facility] Last Admin: 12/22/18 09:42 Dose: 25 mg Nystatin (Nystatin Oral Suspension -) 500,000 units PO Q6HPO [facility] Last Admin: 12/22/18 11:06 Dose: 500,000 units Pantoprazole Sodium (Protonix Packets For Oral Suspension -) 40 mg NGT DAILY [facility] Last Admin: 12/22/18 09:42 Dose: 40 mg Polyethylene Glycol (Miralax (For Daily Use) -) 17 gm PO BID [facility] Last Admin: 12/22/18 09:44 Dose: 17 gm Tamsulosin HCl (Flomax -) 0.8 mg PO DAILY@0830 [facility] Last Admin: 12/22/18 09:42 Dose: 0.8 mg Tiotropium [place] (Spiriva Respimat) 2 puff IH DAILY [facility] Last Admin: 12/22/18 11:00 Dose: 2 puff Valacyclovir HCl (Valtrex -) 500 mg NGT DAILY [facility] Last Admin: 12/22/18 09:43 Dose: 500 mg - Objective Vital Signs: Vital Signs Temperature 98.7 F 12/22/18 08:00 Pulse Rate 93 H 12/22/18 08:00 Respiratory Rate 18 12/22/18 08:00 Blood Pressure 131/75 12/22/18 08:00 O2 Sat by Pulse Oximetry (%) 95 12/21/18 20:33 Constitutional: Yes: Well Nourished, No Distress, Calm Cardiovascular: Yes: Regular Rate and Rhythm Respiratory: Yes: Regular Gastrointestinal: Yes: Normal Bowel Sounds, Soft Genitourinary: Yes: Massey Present Musculoskeletal: Yes: WNL Extremities: Yes: WNL Edema: No Peripheral Pulses WNL: Yes Neurological: Yes: Alert, Confusion Psychiatric: Yes: Alert Labs: CBC, BMP 12/21/18 06:00 12/22/18 07:15 INR, PTT INR 1.49 (0.83-1.09) H 12/10/18 05:15 Fibrinogen > 500.0 mg/dL (238-498) H 11/25/18 20:00 Problem List - Problems (1) Anemia Assessment/Plan: -H/H trend stable -Iron deficient -thyroid profile, B12, FA unremarkable -monitor trend -Repeat Guaiac positive, 2/2 to constipation? -Seen by hematology+ GI Code(s): D64.9 - ANEMIA, UNSPECIFIED (2) CKD (chronic kidney disease) Assessment/Plan: -improved -nephrology on board -monitor trend Code(s): N18.9 - CHRONIC KIDNEY DISEASE, UNSPECIFIED (3) Diabetes Assessment/Plan: -bgm ac hs -A1c at 7.7 -Insulin: Novolog+Levemir -RD on board -endocrinology consult Code(s): E11.9 - TYPE 2 DIABETES MELLITUS WITHOUT COMPLICATIONS Qualifiers: Diabetes mellitus type: type 2 (4) Multiple myeloma Assessment/Plan: -Oncology on board -Myeloma--on velcade/cytoxan/dex --last dose 11/18 On zometa--11/18 treatment on hold light chains decreasing slowly s/p rt to lspine and left acetabular fx Code(s): C90.00 - MULTIPLE MYELOMA NOT HAVING ACHIEVED REMISSION (5) Respiratory failure Assessment/Plan: -pulmonary consult -bronchodilators -ID on board -O2 to keep Spo2>90% Code(s): J96.90 - RESPIRATORY FAILURE, UNSP, UNSP W HYPOXIA OR HYPERCAPNIA (6) Hyperkalemia Assessment/Plan: -mild -nephrology on board -change diet to low K+ Code(s): E87.5 - HYPERKALEMIA (7) Urinary retention Assessment/Plan: -Massey re-inserted -Increase tamsulosin to 0.8 mg po daily Code(s): R33.9 - RETENTION OF URINE, UNSPECIFIED (8) History of substance abuse Assessment/Plan: -On Methadone, which is being tapered off -Original outpatient dose at 80, now tapered to 20 mg po daily -Call put out to [facility] Methadone [facility], left message for Pankaj Anne? with my cell number Code(s): Z87.898 - PERSONAL HISTORY OF OTHER SPECIFIED CONDITIONS Assessment/Plan See problem list DVT prophylaxis Physical therapy-did poorly
--- NOTE | 2018-12-22 12:13 | PN ---
Progress Note (short form) - Note Progress Note: 63 year old male history of HTN,HLD,DM,Hep C, PVD, Opioid abuse on methadone, MM started on chemo. Initially he presented to hospital for abdominal distension adn constipation. During coarse of hospitalization he was intubated and was on abx. Patient is trasnferred to floor from ICU. He was seen by neurosurgery and mri of whole spine was done in oct, no surgical lesion identified. Initially,Patient was seen by dr leal for mental status change . Patient has improved clinically. Mri findings were discussed with primary team and prognosis as well. NEUROLOGICAL Exmination Alert , oriented x 2 and knew what date yesterday and today seems to be slightly confused eomi, pupils reactive, moving all extremity grade 5- generalized, planter flexion and hip flexion is grade 4- upper extremity grade 5- and elbow extension and shoulder flexion is grade 4- there is frozen shoulder reflex are grade 1 generalized sensation is alton;l gait not tested MRI of C/T/L spine reviewed in chart Neurosurgery adn Previous Neurology note appreciated mri of brain showed there is no acute fidnings Assessment/Plan 1.Generalized weakness seems to be deconditioning and critical illness neuropathy, Patient also have history of Diabetic neuropathy and bilateral foot drop. conintue PT and supportive care. Unlikely to be cord compression. 2. Mental status has improved, , likely to be multifactorial ( critical illness encephalopathy ?possible Hypoxic encephalopathy with background history of substance absue and cogntive dysfunction. Over all prognosis is guarded . Maximum recovery happens in three months and some recovery goes on till 2 years. Continue supportive care Thanking you so much Dov Gaston md
--- NOTE | 2018-12-22 14:05 | PN ---
Progress Note (short form) - Note Progress Note: Resting in NAD. Overall continues to improve. No cough or wheezing. Intake & Output 12/19/18 12/20/18 12/21/18 12/22/18 23:59 23:59 23:59 23:59 Intake Total 950 1544 650 370 Output Total 950 1200 1700 500 Balance 0 344 -1050 -130 Last Vital Signs Temp Pulse Resp BP Pulse Ox 98.2 F 90 16 120/88 95 12/22/18 13:34 12/22/18 13:34 12/22/18 13:34 12/22/18 13:34 12/22/18 10:00 Active Medications Acetaminophen (Tylenol -) 500 mg PO Q6H PRN PRN Reason: HEADACHE Last Admin: 12/20/18 22:19 Dose: 500 mg Artificial Tears (Lacri-Lube Eye Ointment -) 1 applic OD HS PRN PRN Reason: DRY EYES Last Admin: 12/10/18 22:49 Dose: 1 applic Aspirin (Asa -) 81 mg NGT DAILY [facility] Last Admin: 12/22/18 09:44 Dose: 81 mg Atorvastatin Calcium (Lipitor -) 80 mg NGT HS [facility] Last Admin: 12/21/18 21:16 Dose: 80 mg Buspirone HCl 10 mg/ Buspirone (HCl 5 mg) 15 mg NR BID [facility] Last Admin: 12/22/18 09:43 Dose: 15 mg Calcium Carbonate/Cholecalciferol (Os-[place] 500+D -) 2 tab NGT DAILY [facility] Last Admin: 12/22/18 09:42 Dose: 2 tab Heparin Sodium (Porcine) (Heparin -) 5,000 unit SQ BID [facility] Last Admin: 12/22/18 09:43 Dose: 5,000 unit Insulin Aspart (Novolog Vial Sliding Scale -) 1 vial SQ TIDAC [facility]; Protocol Last Admin: 12/22/18 11:04 Dose: 4 units Insulin Detemir (Levemir Vial) 20 units SQ [facility] Last Admin: 12/21/18 21:17 Dose: 20 units Lactic Acid (Lac-Hydrin 12) 1 applic TP BID PRN PRN Reason: xerosis Last Admin: 12/19/18 09:20 Dose: 1 applic Methadone HCl (Dolophine -) 20 mg NGT DAILY@0600 [facility] Last Admin: 12/22/18 05:38 Dose: 20 mg Methylnaltrexone [place] (Relistor -) 8 mg SQ Q2D@1000 [facility] Last Admin: 12/22/18 11:01 Dose: 8 mg Metoprolol Tartrate (Lopressor -) 25 mg PO BID [facility] Last Admin: 12/22/18 09:42 Dose: 25 mg Nystatin (Nystatin Oral Suspension -) 500,000 units PO Q6HPO [facility] Last Admin: 12/22/18 11:06 Dose: 500,000 units Pantoprazole Sodium (Protonix Packets For Oral Suspension -) 40 mg NGT DAILY [facility] Last Admin: 12/22/18 09:42 Dose: 40 mg Polyethylene Glycol (Miralax (For Daily Use) -) 17 gm PO BID [facility] Last Admin: 12/22/18 09:44 Dose: 17 gm Tamsulosin HCl (Flomax -) 0.8 mg PO DAILY@0830 [facility] Last Admin: 12/22/18 09:42 Dose: 0.8 mg Tiotropium [place] (Spiriva Respimat) 2 puff IH DAILY [facility] Last Admin: 12/22/18 11:00 Dose: 2 puff Valacyclovir HCl (Valtrex -) 500 mg NGT DAILY [facility] Last Admin: 12/22/18 09:43 Dose: 500 mg Gen: NAD at rest Heart: RRR Lung: decreased breath sounds at the bases Abd: soft, nontender Ext: no edema Laboratory Results - last 24 hr 12/21/18 12/21/18 12/22/18 16:29 21:15 05:37 Sodium Potassium Chloride Carbon Dioxide Anion Gap BUN Creatinine Creat Clearance w eGFR POC Glucometer 140 145 123 Random Glucose Calcium Total Bilirubin AST ALT Alkaline Phosphatase Total Protein Albumin 12/22/18 12/22/18 07:15 11:02 Sodium 140 Potassium 4.5 Chloride 110 H Carbon Dioxide 25 Anion Gap 6 L BUN 16 Creatinine 1.5 H Creat Clearance w eGFR 46.97 POC Glucometer 233 Random Glucose 123 H Calcium 7.9 L Total Bilirubin 0.3 AST 22 ALT 26 Alkaline Phosphatase 111 Total Protein 5.8 L Albumin 2.4 L A/P Acute Hypoxic and Hypercapneic Respiratory Failure improving Acute Pulmonary Edema resolved Critical Illness Polyneuropathy Acute NSTEMI Resolved Pneumonia UTI Acute on Chronic Renal Failure HTN DM COPD Methadone Maintenance - Completed ABX - ASA - inhaled bronchodilators - aspiration precautions - rehab/PT - VTE prophylaxis - Taper Methadone - D/C planning Dr Culver
--- NOTE | 2018-12-22 14:21 | PN ---
Progress Note, Physician History of Present Illness: Pt seen and examined at bedside. He is awake and alert. He denies shortness of breath. - Current Medication List Current Medications: Active Medications Acetaminophen (Tylenol -) 500 mg PO Q6H PRN PRN Reason: HEADACHE Last Admin: 12/20/18 22:19 Dose: 500 mg Artificial Tears (Lacri-Lube Eye Ointment -) 1 applic OD HS PRN PRN Reason: DRY EYES Last Admin: 12/10/18 22:49 Dose: 1 applic Aspirin (Asa -) 81 mg NGT DAILY [facility] Last Admin: 12/22/18 09:44 Dose: 81 mg Atorvastatin Calcium (Lipitor -) 80 mg NGT HS [facility] Last Admin: 12/21/18 21:16 Dose: 80 mg Buspirone HCl 10 mg/ Buspirone (HCl 5 mg) 15 mg NR BID [facility] Last Admin: 12/22/18 09:43 Dose: 15 mg Calcium Carbonate/Cholecalciferol (Os-Kyler 500+D -) 2 tab NGT DAILY [facility] Last Admin: 12/22/18 09:42 Dose: 2 tab Heparin Sodium (Porcine) (Heparin -) 5,000 unit SQ BID [facility] Last Admin: 12/22/18 09:43 Dose: 5,000 unit Insulin Aspart (Novolog Vial Sliding Scale -) 1 vial SQ TIDAC [facility]; Protocol Last Admin: 12/22/18 11:04 Dose: 4 units Insulin Detemir (Levemir Vial) 20 units SQ HS [facility] Last Admin: 12/21/18 21:17 Dose: 20 units Lactic Acid (Lac-Hydrin 12) 1 applic TP BID PRN PRN Reason: xerosis Last Admin: 12/19/18 09:20 Dose: 1 applic Methadone HCl (Dolophine -) 20 mg NGT DAILY@0600 [facility] Last Admin: 12/22/18 05:38 Dose: 20 mg Methylnaltrexone [place] (Relistor -) 8 mg SQ Q2D@1000 [facility] Last Admin: 12/22/18 11:01 Dose: 8 mg Metoprolol Tartrate (Lopressor -) 25 mg PO BID [facility] Last Admin: 12/22/18 09:42 Dose: 25 mg Nystatin (Nystatin Oral Suspension -) 500,000 units PO Q6HPO [facility] Last Admin: 12/22/18 11:06 Dose: 500,000 units Pantoprazole Sodium (Protonix Packets For Oral Suspension -) 40 mg NGT DAILY [facility] Last Admin: 12/22/18 09:42 Dose: 40 mg Polyethylene Glycol (Miralax (For Daily Use) -) 17 gm PO BID [facility] Last Admin: 12/22/18 09:44 Dose: 17 gm Tamsulosin HCl (Flomax -) 0.8 mg PO DAILY@0830 [facility] Last Admin: 12/22/18 09:42 Dose: 0.8 mg Tiotropium [place] (Spiriva Respimat) 2 puff IH DAILY [facility] Last Admin: 12/22/18 11:00 Dose: 2 puff Valacyclovir HCl (Valtrex -) 500 mg NGT DAILY [facility] Last Admin: 12/22/18 09:43 Dose: 500 mg - Objective Vital Signs: Vital Signs Temperature 98.2 F 12/22/18 13:34 Pulse Rate 90 12/22/18 13:34 Respiratory Rate 16 12/22/18 13:34 Blood Pressure 120/88 12/22/18 13:34 O2 Sat by Pulse Oximetry (%) 95 12/22/18 10:00 Constitutional: Yes: Calm Eyes: Yes: Conjunctiva Clear HENT: Yes: Atraumatic Neck: Yes: Supple Cardiovascular: Yes: S1, S2 Respiratory: Yes: On Nasal O2 Gastrointestinal: Yes: Soft Genitourinary: Yes: WNL Musculoskeletal: Yes: WNL Edema: LLE: Trace, RLE: Trace Neurological: Yes: Oriented Psychiatric: Yes: Oriented Labs: CBC, BMP 12/21/18 06:00 12/22/18 07:15 INR, PTT INR 1.49 (0.83-1.09) H 12/10/18 05:15 Fibrinogen > 500.0 mg/dL (238-498) H 11/25/18 20:00 Problem List - Problems (1) CKD (chronic kidney disease) Code(s): N18.9 - CHRONIC KIDNEY DISEASE, UNSPECIFIED (2) Constipation Code(s): K59.00 - CONSTIPATION, UNSPECIFIED Qualifiers: Constipation type: unspecified constipation type Qualified Code(s): K59.00 - Constipation, unspecified (3) Hyponatremia Code(s): E87.1 - HYPO-OSMOLALITY AND HYPONATREMIA Assessment/Plan Current Medications Generic Name Dose Route Start Last Admin Trade Name Freq PRN Reason Stop Dose Admin Acetaminophen 500 mg 12/14/18 20:46 12/20/18 22:19 Tylenol - PO 500 mg Q6H PRN Administration HEADACHE Artificial Tears 1 applic 12/10/18 22:05 12/10/18 22:49 Lacri-Lube Eye Ointment - OD 1 applic HS PRN Administration DRY EYES Aspirin 81 mg 12/09/18 10:00 12/22/18 09:44 Asa - NGT 81 mg DAILY [facility]AK[facility] Administration Atorvastatin Calcium 80 mg 12/08/18 22:00 12/21/18 21:16 Lipitor - NGT 80 mg HS [facility] Administration Buspirone HCl 10 mg/ Buspirone 15 mg 12/20/18 10:00 12/22/18 09:43 HCl 5 mg NR 15 mg BID [facility] Administration Calcium Carbonate/Cholecalciferol 2 tab 12/09/18 10:00 12/22/18 09:42 Os-Kyler 500+D - NGT 2 tab DAILY [facility] Administration Heparin Sodium (Porcine) 5,000 unit 12/21/18 22:00 12/22/18 09:43 Heparin - SQ 5,000 unit BID [facility] Administration Insulin Aspart 1 vial 12/14/18 17:00 12/22/18 11:04 Novolog Vial Sliding Scale - SQ 4 units TIDAC [facility]AK[facility] Administration Protocol Insulin Detemir 20 units 12/08/18 22:00 12/21/18 21:17 Levemir Vial SQ 20 units HS [facility] Administration Lactic Acid 1 applic 12/16/18 21:22 12/19/18 09:20 Lac-Hydrin 12 TP 1 applic BID PRN Administration xerosis Methadone HCl 20 mg 12/22/18 06:00 12/22/18 05:38 Dolophine - NGT 20 mg DAILY@0600 [facility] Administration Methylnaltrexone [place] 8 mg 12/18/18 10:00 12/22/18 11:01 Relistor - SQ 8 mg Q2D@1000 [facility] Administration Metoprolol Tartrate 25 mg 12/08/18 22:00 12/22/18 09:42 Lopressor - PO 25 mg BID [facility] Administration Nystatin 500,000 units 12/20/18 00:00 12/22/18 11:06 Nystatin Oral Suspension - PO 500,000 units Q6HPO [facility] Administration Pantoprazole Sodium 40 mg 12/12/18 10:00 12/22/18 09:42 Protonix Packets For Oral Suspension - NGT 40 mg DAILY [facility] Administration Polyethylene Glycol 17 gm 12/15/18 22:00 12/22/18 09:44 Miralax (For Daily Use) - PO 17 gm BID [facility] Administration Tamsulosin HCl 0.8 mg 12/21/18 08:30 12/22/18 09:42 Flomax - PO 0.8 mg DAILY@0830 [facility] Administration Tiotropium [place] 2 puff 12/09/18 10:00 12/22/18 11:00 Spiriva Respimat IH 2 puff DAILY [facility] Administration Valacyclovir HCl 500 mg 12/09/18 10:00 12/22/18 09:43 Valtrex - NGT 500 mg DAILY [facility] Administration Impression 1. hyponatremia 2. CKD 3. nausea and vomiting 4. htn 5. DM 6. 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 multiple myeloma 9. anemia 10. proteinuria 11. hyperkalemia 12. resp failure 13. volume overload 14. hypernatremia 15. hyperkalemia Plan - monitor renal function - monitor volume status - can see in office after discharge - may need lasix if he developed overload Dr Cates
--- NOTE | 2018-12-22 21:11 | PN ---
Progress Note (short form) - Note Progress Note: Patient seen and examined in icu awake, alert confusion improved Last Vital Signs Temp Pulse Resp BP Pulse Ox 97.9 F 82 18 121/92 96 12/23/18 02:00 12/23/18 02:00 12/23/18 02:00 12/23/18 02:00 12/22/18 21:00 Cor: RSR, No murmurs, No gallops Lungs: Clear to auscultation anteriorly Abd: Soft, Normal bowel sounds, No organomegaly Ext:chronic stasis dermatitis Active Medications Acetaminophen (Tylenol -) 500 mg PO Q6H PRN PRN Reason: HEADACHE Last Admin: 12/20/18 22:19 Dose: 500 mg Artificial Tears (Lacri-Lube Eye Ointment -) 1 applic OD HS PRN PRN Reason: DRY EYES Last Admin: 12/10/18 22:49 Dose: 1 applic Aspirin (Asa -) 81 mg PO DAILY [facility] Atorvastatin Calcium (Lipitor -) 80 mg PO HS [facility] Last Admin: 12/22/18 21:35 Dose: 80 mg Buspirone HCl 10 mg/ Buspirone (HCl 5 mg) 15 mg PO BID [facility] Last Admin: 12/22/18 21:36 Dose: 15 mg Calcium Carbonate/Cholecalciferol (Os-Kyler 500+D -) 2 tab PO DAILY [facility] Heparin Sodium (Porcine) (Heparin -) 5,000 unit SQ BID [facility] Last Admin: 12/22/18 21:35 Dose: 5,000 unit Insulin Aspart (Novolog Vial Sliding Scale -) 1 vial SQ TIDAC [facility]; Protocol Last Admin: 12/22/18 17:29 Dose: 2 units Insulin Detemir (Levemir Vial) 20 units SQ [facility] Last Admin: 12/22/18 21:36 Dose: 20 units Lactic Acid (Lac-Hydrin 12) 1 applic TP BID PRN PRN Reason: xerosis Last Admin: 12/19/18 09:20 Dose: 1 applic Methadone HCl (Dolophine -) 20 mg PO DAILY@0600 [facility] Methylnaltrexone [place] (Relistor -) 8 mg SQ Q2D@1000 [facility] Last Admin: 12/22/18 11:01 Dose: 8 mg Metoprolol Tartrate (Lopressor -) 25 mg PO BID [facility] Last Admin: 12/22/18 21:35 Dose: 25 mg Nystatin (Nystatin Oral Suspension -) 500,000 units PO Q6HPO [facility] Last Admin: 12/22/18 23:24 Dose: 500,000 units Pantoprazole Sodium (Protonix Packets For Oral Suspension -) 40 mg PO DAILY [facility] Polyethylene Glycol (Miralax (For Daily Use) -) 17 gm PO BID [facility] Last Admin: 12/22/18 21:36 Dose: Not Given Tamsulosin HCl (Flomax -) 0.8 mg PO DAILY@0830 [facility] Last Admin: 12/22/18 09:42 Dose: 0.8 mg Tiotropium [place] (Spiriva Respimat) 2 puff IH DAILY [facility] Last Admin: 12/22/18 11:00 Dose: 2 puff Valacyclovir HCl (Valtrex -) 500 mg PO DAILY [facility] A/P 63 y/o patient with multiple comorbidites, HTN, DM, PVD, ? COPD, CKD, recently diagnosed myeloma, vertebral fractures on velcade/cytoxan/dexamethasone/zometa. Admitted with severe constipation and hyponatremia. Was on golytely for constipation and hydration for hyponatremia Developed acute resp. distress and high BPs evening of 11/25 ? flash pulmonary edema + pneumonia CXR-airspace opacities was diuresed and placed on antibiotics + troponins-- received ceftazidime for UTI and serratia in sputum and vancomycin for MRSA in sputum Myeloma--on velcade/cytoxan/dex --last dose 11/18 On zometa--11/18 treatment on hold due to critical illness neuropathy light chains decreasing slowly s/p rt to lspine and left acetabular fx will give dexamethasone weekly Renal impairment improved encephalopathy-- ? multifactorial--toxic metabolic MRI negative Discussed with neurology team critical illness neuropathy thrush--nystatin discused with daughters d/c planning
[2018-12-22] MEDS: ATORVASTATIN CA 80 MG TABLET (FP) PO SCH (21:35)
[2018-12-22] MEDS: BUSPIRONE HCL 10 MG, BUSPIRONE HCL 5 MG PO SCH (21:36)
[2018-12-22] MEDS: INSULIN (LEVEMIR) 100 UNITS/ML UNITS SQ SCH (21:36)
[2018-12-23] MEDS: METHADONE HCL 40 MG DISPERSABLE TABLET PO SCH (05:30)
[2018-12-23] MEDS: NYSTATIN 500,000 UNITS/5 ML SUSPENSION PO SCH ×3 (05:30→18:05)
[2018-12-23] MEDS: INSULIN SLIDING SCALE (NOVOLOG) 1 VIAL SQ SCH ×3 (06:29→17:20)
[2018-12-23] MEDS: ASPIRIN 81 MG CHEWABLE TABLETS PO SCH (09:19)
[2018-12-23] MEDS: PANTOPRAZOLE SOD 40 MG SUSPENSION PACKET PO SCH (09:19)
[2018-12-23] MEDS: POLYETHYLENE GLYCOL 3350 119 GM BTL PO SCH ×2 (09:19→22:14)
[2018-12-23] MEDS: TAMSULOSIN HCL 0.4 MG CAP PO SCH (09:20)
[2018-12-23] MEDS: valACYclovir HCL 500 MG TABLET (FP) PO SCH (09:20)
[2018-12-23] MEDS: HEPARIN NA (PORCINE) 5,000 UNITS/ML 1ML VIAL SQ SCH ×2 (09:20→22:14)
[2018-12-23] MEDS: BUSPIRONE HCL 10 MG, BUSPIRONE HCL 5 MG PO SCH ×2 (09:21→22:14)
[2018-12-23] MEDS: CALCIUM 500MG/VIT-D 200 UNITS COMBO TABLET (FP) PO SCH (09:22)
[2018-12-23] MEDS: METOPROLOL TARTRATE 25 MG TABLET (FP) PO SCH ×2 (09:24→22:15)
--- NOTE | 2018-12-23 10:37 | PN ---
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 He is tangential, with reduced insight, memory deficits.Speech much more precise and swallowing has improved. He is edentulous and dentures were reportedly lost. Fair mastication on softened cracker. (-) 3 water test. Case reviewed at length with pt's daughter and . Suggest trial of diet upgrade to reg, chopped, moist cohesive soft foods Thin liquids Monitor tolerance
[2018-12-23] MEDS: TIOTROPIUM BROMIDE 2.5 MCG (SPIRIVA) RESPIMAT INHALER IH SCH (10:57)
--- NOTE | 2018-12-23 11:25 | PN ---
Progress Note (short form) - Note Progress Note: PULMONARY VSS/Afebrile Resting in NAD. Overall continues to improve. No cough or wheezing. labs/meds/notes/images reviewed Anicteric rsr Lung: decreased breath sounds at the bases Abd: soft, nontender Ext: no edema A/P Acute Hypoxic and Hypercapneic Respiratory Failure improving Acute Pulmonary Edema resolved Critical Illness Polyneuropathy Acute NSTEMI Resolved Pneumonia UTI Acute on Chronic Renal Failure HTN DM COPD Methadone Maintenance - Completed ABX - ASA - inhaled bronchodilators - aspiration precautions - rehab/PT - VTE prophylaxis - Taper Methadone - D/C planning R CINDY SMITH
--- NOTE | 2018-12-23 11:28 | PN ---
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 myeloma anemia proteinuria s/p hyperkalemia s/p extubation Acute respiratory failure History of Present Illness: NAD lethargic more alert, confused but follows commands Sykes re-inserted for retention Still has NGT On dysphagia puree diet Hyperkalemic today Myeloma--on velcade/cytoxan/dex --last dose 11/18 On zometa--11/18 treatment on hold light chains decreasing slowly s/p rt to lspine and left acetabular fx Plan to start on Decadron [facility]-# Originally on 80 mg, tapered down to 20 mg now, can be tapered to 10 mg on , then to 5 mg on 12/31/18 No history in [facility] met with daughter and , Denied by several SNF's narrowed down to [facility] Also referral sent out to [facility] - Current Medication List Current Medications: Active Medications Acetaminophen (Tylenol -) 500 mg PO Q6H PRN PRN Reason: HEADACHE Last Admin: 12/20/18 22:19 Dose: 500 mg Artificial Tears (Lacri-Lube Eye Ointment -) 1 applic OD HS PRN PRN Reason: DRY EYES Last Admin: 12/10/18 22:49 Dose: 1 applic Aspirin (Asa -) 81 mg PO DAILY [facility] Last Admin: 12/23/18 09:19 Dose: 81 mg Atorvastatin Calcium (Lipitor -) 80 mg PO HS [facility] Last Admin: 12/22/18 21:35 Dose: 80 mg Buspirone HCl 10 mg/ Buspirone (HCl 5 mg) 15 mg PO BID [facility] Last Admin: 12/23/18 09:21 Dose: 15 mg Calcium Carbonate/Cholecalciferol (Os-Kyler 500+D -) 2 tab PO DAILY [facility] Last Admin: 12/23/18 09:22 Dose: 2 tab Heparin Sodium (Porcine) (Heparin -) 5,000 unit SQ BID [facility] Last Admin: 12/23/18 09:20 Dose: 5,000 unit Insulin Aspart (Novolog Vial Sliding Scale -) 1 vial SQ TIDAC [facility]; Protocol Last Admin: 12/23/18 06:29 Dose: Not Given Insulin Detemir (Levemir Vial) 20 units SQ [facility] Last Admin: 12/22/18 21:36 Dose: 20 units Lactic Acid (Lac-Hydrin 12) 1 applic TP BID PRN PRN Reason: xerosis Last Admin: 12/19/18 09:20 Dose: 1 applic Methadone HCl (Dolophine -) 20 mg PO DAILY@0600 [facility] Last Admin: 12/23/18 05:30 Dose: 20 mg Methylnaltrexone [place] (Relistor -) 8 mg SQ Q2D@1000 [facility] Last Admin: 12/22/18 11:01 Dose: 8 mg Metoprolol Tartrate (Lopressor -) 25 mg PO BID [facility] Last Admin: 12/23/18 09:24 Dose: 25 mg Nystatin (Nystatin Oral Suspension -) 500,000 units PO Q6HPO [facility] Last Admin: 12/23/18 05:30 Dose: 500,000 units Pantoprazole Sodium (Protonix Packets For Oral Suspension -) 40 mg PO DAILY [facility] Last Admin: 12/23/18 09:19 Dose: 40 mg Polyethylene Glycol (Miralax (For Daily Use) -) 17 gm PO BID [facility] Last Admin: 12/23/18 09:19 Dose: 17 gm Tamsulosin HCl (Flomax -) 0.8 mg PO DAILY@0830 [facility] Last Admin: 12/23/18 09:20 Dose: 0.8 mg Tiotropium [place] (Spiriva Respimat) 2 puff IH DAILY [facility] Last Admin: 12/22/18 11:00 Dose: 2 puff Valacyclovir HCl (Valtrex -) 500 mg PO DAILY [facility] Last Admin: 12/23/18 09:20 Dose: 500 mg - Objective Vital Signs: Vital Signs Temperature 98.0 F 12/23/18 06:00 Pulse Rate 93 H 12/23/18 06:00 Respiratory Rate 20 12/23/18 06:00 Blood Pressure 149/91 12/23/18 06:00 O2 Sat by Pulse Oximetry (%) 95 12/23/18 08:14 Constitutional: Yes: Well Nourished, No Distress, Calm Cardiovascular: Yes: Regular Rate and Rhythm Respiratory: Yes: Regular, On Nasal O2 Gastrointestinal: Yes: Normal Bowel Sounds, Soft Genitourinary: Yes: Sykes Present Musculoskeletal: Yes: Muscle Weakness Extremities: Yes: WNL Edema: No Peripheral Pulses WNL: Yes Neurological: Yes: Alert, Oriented Psychiatric: Yes: Alert, Oriented Labs: CBC, BMP 12/21/18 06:00 12/22/18 07:15 INR, PTT INR 1.49 (0.83-1.09) H 12/10/18 05:15 Fibrinogen > 500.0 mg/dL (238-498) H 11/25/18 20:00 Problem List - Problems (1) Anemia Assessment/Plan: -H/H trend stable -Iron deficient -thyroid profile, B12, FA unremarkable -monitor trend -Repeat Guaiac positive, 2/2 to constipation? -Seen by hematology+ GI Code(s): D64.9 - ANEMIA, UNSPECIFIED (2) CKD (chronic kidney disease) Assessment/Plan: -improved -nephrology on board -monitor trend Code(s): N18.9 - CHRONIC KIDNEY DISEASE, UNSPECIFIED (3) Diabetes Assessment/Plan: -bgm ac hs -A1c at 7.7 -Insulin: Novolog+Levemir -RD on board -endocrinology consult Code(s): E11.9 - TYPE 2 DIABETES MELLITUS WITHOUT COMPLICATIONS Qualifiers: Diabetes mellitus type: type 2 (4) Multiple myeloma Assessment/Plan: -Oncology on board -Myeloma--on velcade/cytoxan/dex --last dose 11/18 On zometa--11/18 treatment on hold light chains decreasing slowly s/p rt to lspine and left acetabular fx -Plan for Decadron until SNF is completed Code(s): C90.00 - MULTIPLE MYELOMA NOT HAVING ACHIEVED REMISSION (5) Respiratory failure Assessment/Plan: -pulmonary consult -bronchodilators -ID on board -O2 to keep Spo2>90% Code(s): J96.90 - RESPIRATORY FAILURE, UNSP, UNSP W HYPOXIA OR HYPERCAPNIA (6) Hyperkalemia Assessment/Plan: -resolved -nephrology on board -change diet to low K+ Code(s): E87.5 - HYPERKALEMIA (7) Urinary retention Assessment/Plan: -Sykes re-inserted -tamsulosin to 0.8 mg po daily -trial of sykes removal after methadone is tapered off Code(s): R33.9 - RETENTION OF URINE, UNSPECIFIED (8) History of substance abuse Assessment/Plan: -On Methadone, which is being tapered off -Original outpatient dose at 80, now tapered to 20 mg po daily, decrease methadone to 10 mg on 12/26/18 and then to 5 mg on 12/31/18 for one week, then stop. -Spoke to covering physician Dr Klein at [facility], who suggested we can taper the patient off as above. Code(s): Z87.898 - PERSONAL HISTORY OF OTHER SPECIFIED CONDITIONS Assessment/Plan See problem list DVT prophylaxis Physical therapy-did poorly
--- NOTE | 2018-12-23 12:22 | DS ---
Physical Examination Vital Signs: Vital Signs Temperature 97.9 F 12/23/18 10:00 Pulse Rate 95 H 12/23/18 10:00 Respiratory Rate 18 12/23/18 10:00 Blood Pressure 146/87 12/23/18 10:00 O2 Sat by Pulse Oximetry (%) 95 12/23/18 08:14 Findings/Remarks: This 63 y/o man with history of HTN, T2DM for 15 years, on Insulin for around 10 , HLD, PVD, ASHD, Hep C (s/p Harvoni), substance abuse (currently on methadone) and multiple myeloma who was admitted for for Constipation and GI bleeding who developed respiratory arrest and intubated and treated in the ICU. Pt now extubated, awake and alert but periodically pleasantly confused. Currently has Massey catheter for retention. trial of removal after methadone has been tapered off. Pt is currently being tapered off Methadone. Starting dose was 80 mg po daily upon admission. Pt is currently on 20 mg po daily. Constitutional: Yes: Well Nourished, No Distress, Calm Cardiovascular: Yes: Regular Rate and Rhythm Respiratory: Yes: Regular Gastrointestinal: Yes: Normal Bowel Sounds, Soft, Abdomen, Obese Renal/: Yes: Massey Present Musculoskeletal: Yes: Muscle Weakness Extremities: Yes: WNL Edema: No Peripheral Pulses WNL: Yes Neurological: Yes: Alert, Oriented Psychiatric: Yes: Alert, Oriented Labs: CBC, BMP 12/21/18 06:00 12/22/18 07:15 Discharge Summary Reason For Visit: HIGH BP Current Active Problems Abdominal distension (Acute) Abnormal LFTs (liver function tests) (Acute) Acute hypoxemic respiratory failure (Acute) Anemia (Acute) CKD (chronic kidney disease) (Acute) Diabetes (Acute) Diabetic gastroparesis (Acute) Diabetic neuropathy (Acute) Diabetic retinopathy (Acute) Edema (Acute) Elevated liver enzymes (Acute) History of cocaine abuse (Acute) History of heroin abuse (Acute) History of substance abuse (Acute) Hyperkalemia (Acute) Hypernatremia (Acute) Hypocalcemia (Acute) Hyponatremia (Acute) Ileus (Acute) Intractable abdominal pain (Acute) Multiple myeloma (Acute) Narcotic dependence (Acute) Nausea and vomiting (Acute) OB + stool (Acute) Respiratory failure (Acute) Respiratory failure (Acute) Troponin I above reference range (Acute) UTI (urinary tract infection) (Acute) Urinary retention (Acute) Vertebral compression fracture (Acute) Hospital Course: Laboratory Last Values WBC 5.1 K/mm3 (4.0-10.0) 12/21/18 06:00 RBC 3.36 M/mm3 (4.00-5.60) L 12/21/18 06:00 Hgb 9.7 GM/dL (11.7-16.9) L 12/21/18 06:00 Hct 29.4 % (35.4-49) L 12/21/18 06:00 MCV 87.4 fl (80-96) 12/21/18 06:00 MCH 29.0 pg (25.7-33.7) 12/21/18 06:00 MCHC 33.1 g/dl (32.0-35.9) 12/21/18 06:00 RDW 18.5 % (11.9-15.9) H 12/21/18 06:00 Plt Count 188 K/MM3 (134-434) 12/21/18 06:00 MPV 9.0 fl (7.5-11.1) 12/21/18 06:00 Absolute Neuts (auto) 3.6 K/mm3 (1.5-8.0) 12/21/18 06:00 Total Counted 100 12/03/18 05:30 Neutrophils % (Manual) 84.0 % (42.8-82.8) H 12/03/18 05:30 Band Neutrophils % 3.0 % 12/03/18 05:30 Neutrophils % 69.7 % (42.8-82.8) 12/21/18 06:00 Lymphocytes % (Manual) 4.0 % (8-40) L 12/03/18 05:30 Lymphocytes % 21.3 % (8-40) 12/21/18 06:00 Monocytes % (Manual) 2 % (3.8-10.2) L 12/03/18 05:30 Eosinophils % (Manual) 2.0 % (0-4.5) 12/03/18 05:30 Monocytes % 6.5 % (3.8-10.2) 12/21/18 06:00 Eosinophils % 2.0 % (0-4.5) 12/21/18 06:00 Basophils % 0.5 % (0-2.0) 12/21/18 06:00 Nucleated RBC % 0 % (0-0) 12/21/18 06:00 Platelet Estimate Adequate 12/03/18 05:30 Platelet Comment Giant platelets 12/03/18 05:30 Poikilocytosis 2+ 12/03/18 05:30 Basophilic Stippling 1+ 12/03/18 05:30 Tear Drop Cells 1+ 12/03/18 05:30 Ovalocytes 1+ 12/03/18 05:30 Acanthocytes (Spur) 1+ 12/03/18 05:30 PT with INR 17.60 SEC (9.7-13.0) H 12/10/18 05:15 INR 1.49 (0.83-1.09) H 12/10/18 05:15 PTT (Actin FS) 31.9 SECONDS (25.2-36.5) 12/02/18 05:30 Fibrinogen > 500.0 mg/dL (238-498) H 11/25/18 20:00 Anticoagulation Therapy No Result Required. 12/08/18 05:40 Puncture Site Right radial 12/08/18 05:40 Patient Temperature Cancelled 11/26/18 07:40 ABG pH 7.40 (7.35-7.45) 12/08/18 05:40 ABG pCO2 at Pt Temp 45.0 mmHg (35-45) 12/08/18 05:40 ABG pO2 at Pt Temp 86.4 mmHg (80-100) 12/08/18 05:40 ABG HCO3 27.2 meq/L (22-26) H 12/08/18 05:40 ABG O2 Sat (Measured) 95.9 % (90-98.9) 12/08/18 05:40 ABG O2 Content 16.8 % vol (15-22) 12/08/18 05:40 ABG Base Excess 2.5 meq/l (-2-2) H 12/08/18 05:40 Benny Test Positive 12/08/18 05:40 O2 Delivery Device No Result Required. 12/08/18 05:40 Oxygen Flow Rate 40% 12/08/18 05:40 Vent Mode S/t 12/08/18 05:40 Vent Rate 20 12/08/18 05:40 Mechanical Rate No Result Required. 12/08/18 05:40 PEEP 5.0 cmH2O 12/07/18 06:00 Pressure Support Vent 14/6 12/08/18 05:40 Sodium 140 mmol/L (136-145) 12/22/18 07:15 Potassium 4.5 mmol/L (3.5-5.1) 12/22/18 07:15 Chloride 110 mmol/L (98-107) H 12/22/18 07:15 Carbon Dioxide 25 mmol/L (21-32) 12/22/18 07:15 Anion Gap 6 MMOL/L (8-16) L 12/22/18 07:15 BUN 16 mg/dL (7-18) 12/22/18 07:15 Creatinine 1.5 mg/dL (0.55-1.3) H 12/22/18 07:15 Creat Clearance w eGFR 46.97 (>60) 12/22/18 07:15 POC Glucometer 108 UNITS (80-120) 12/23/18 05:32 Random Glucose 123 mg/dL (74-106) H 12/22/18 07:15 Hemoglobin A1c % 7.7 % (4.2-6.3) H 11/28/18 05:15 Serum Osmolality 271 mosm/kg (278-305) L 11/20/18 21:00 Lactic Acid 0.9 mmol/L (0.4-2.0) 11/20/18 08:30 Uric Acid 4.9 mg/dL (2.6-7.2) 11/26/18 05:30 Calcium 7.9 mg/dL (8.5-10.1) L 12/22/18 07:15 Phosphorus 3.6 mg/dL (2.5-4.9) 12/09/18 06:00 Magnesium 2.2 mg/dL (1.8-2.4) 12/10/18 05:15 Iron 28 ug/dL (38-169) L 11/28/18 05:15 TIBC 245 ug/dL (250-450) L 11/28/18 05:15 Iron Saturation 11 % (15-55) L 11/28/18 05:15 Ferritin 184.3 ng/ml (8-388) 11/28/18 05:15 Total Bilirubin 0.3 mg/dL (0.2-1) 12/22/18 07:15 Direct Bilirubin 0.1 mg/dL (0.0-0.2) 12/17/18 06:15 AST 22 U/L (15-37) 12/22/18 07:15 ALT 26 U/L (13-61) 12/22/18 07:15 Alkaline Phosphatase 111 U/L (45-117) 12/22/18 07:15 LD Total 297 U/L (87-246) H 11/26/18 05:30 Ammonia 17.10 umol/L (11-32) 12/17/18 05:50 Creatine Kinase 180 U/L (26-308) 11/30/18 16:00 Creatine Kinase Index 5.6 % (0.0-5.0) H 11/30/18 16:00 CK-MB (CK-2) 10.2 ng/mL (0.5-3.6) H 11/30/18 16:00 CK-BB (CK-1) 0 % TOTAL (0) 11/25/18 20:00 CK/CKMB % Calc 0 % (0-3) 11/25/18 20:00 Troponin I 0.07 ng/ml (0.00-0.05) H 12/17/18 05:50 Total Protein 5.8 g/dl (6.4-8.2) L 12/22/18 07:15 Albumin 2.4 g/dl (3.4-5.0) L 12/22/18 07:15 Lipase 242 U/L (73-393) 11/20/18 08:30 Tumor Marker AFP 5.0 ng/ml (0.0-8.3) 12/17/18 05:50 Vitamin B12 1332 pg/ml (193-986) H 12/17/18 05:50 Serum Folate 16 ng/mL (3.1-17.5) 12/17/18 05:50 Free T4 1.04 ng/dl (0.76-1.16) 11/28/18 05:15 TSH 2.41 uIU/ml (0.358-3.74) D 12/17/18 05:50 Urine Color Yellow 12/19/18 00:35 Urine Appearance Slcloudy 12/19/18 00:35 Urine pH 5.0 (5.0-8.0) 12/19/18 00:35 Ur Specific [place] 1.018 (1.010-1.035) 12/19/18 00:35 Urine Protein 3+ (NEGATIVE) H 12/19/18 00:35 Urine Glucose (UA) 2+ (NEGATIVE) H 12/19/18 00:35 Urine Ketones Negative (NEGATIVE) 12/19/18 00:35 Urine Blood 1+ (NEGATIVE) H 12/19/18 00:35 Urine Nitrite Negative (NEGATIVE) 12/19/18 00:35 Urine Bilirubin Negative (<2.0 mg/dL) 12/19/18 00:35 Urine Urobilinogen Negative mg/dL (0.2-1.0) 12/19/18 00:35 Ur Leukocyte Esterase Negative (NEGATIVE) 12/19/18 00:35 Urine WBC (Auto) 3 /hpf (3-5) 12/19/18 00:35 Urine RBC (Auto) 2 /hpf (0-3) 12/19/18 00:35 Ur Epithelial Cells Rare /HPF (FEW) 12/19/18 00:35 Granular Casts 37 /lpf 12/05/18 21:00 Urine Bacteria Rare /hpf (NONE SEEN) 12/19/18 00:35 Urine Yeast Moderate 12/05/18 21:00 Urine Mucus Rare 12/19/18 00:35 Urine Osmolality 227 mosm/kg (300-900) L 11/21/18 09:15 U Random Total Protein 185.4 mg/dl (0-11.9) H 11/21/18 09:15 Ur Random Sodium 24 MMOL/L (40-220) L 12/13/18 10:53 Ur Random Potassium 36.0 MMOL/L (25-125) 12/13/18 10:53 Ur Random Chloride < 11 MMOL/L (110-250) L 12/13/18 10:53 Urine Creatinine 136.0 mg/dL (20-320) 12/13/18 10:53 Protein/Creatinin Ratio 8.420 MG/DL 11/21/18 09:15 Stool Occult Blood Positive (NEGATIVE) 11/29/18 17:30 Vancomycin Pre-Dose 20.6 ug/ml (18-26) 12/02/18 09:00 Random Vancomycin 29.7 ug/ml (18-26) H 12/11/18 06:10 Free Bandana LC, Quant 1093.6 mg/L (3.3-19.4) H 12/17/18 05:50 Free Lambda LC, Quant 16.1 mg/L (5.7-26.3) 12/17/18 05:50 Free Bandana/Lambda Ratio 67.93 (0.26-1.65) H 12/17/18 05:50 Hepatitis A Ab Total Negative (Negative) 12/10/18 05:15 Hep Bs Antigen Negative (Negative) 12/10/18 05:15 Hep Bs Antibody Reactive (.) 12/10/18 05:15 Hep B Core Total Ab Positive (Negative) H 12/10/18 05:15 Hep C Ab Diagnostic >11.0 s/co ratio (0.0-0.9) H 11/22/18 05:30 HCV Quantitation Hcv not detected IU/mL (.) 11/22/18 05:30 HCV RNA PCR w/Genot Rflx Hcv not detected IU/mL (.) 11/22/18 05:30 HCV RNA log copies/mL TNP 11/22/18 05:30 Liver Fibrosis Interp (.) 11/22/18 05:30 Blood Type A POSITIVE 11/28/18 12:20 Antibody Screen Negative 11/28/18 12:20 Crossmatch See Detail 11/28/18 12:20 Microbiology 12/18/18 20:07 Blood - Peripheral Venous Blood Culture - Preliminary NO GROWTH OBTAINED AFTER 96 HOURS, INCUBATION TO CONTINUE FOR 1 DAYS. 12/18/18 19:58 Blood - Peripheral Venous Blood Culture - Preliminary NO GROWTH OBTAINED AFTER 96 HOURS, INCUBATION TO CONTINUE FOR 1 DAYS. 12/19/18 00:35 Urine - Urine - Catheterized Urine Culture - Final Vr Ec Faecium Presumptive Ps Aeruginosa 12/06/18 09:28 Blood - Peripheral Venous Blood Culture - Final NO GROWTH AFTER 5 DAYS INCUBATION 12/06/18 09:10 Blood - Peripheral Venous Blood Culture - Final NO GROWTH AFTER 5 DAYS INCUBATION 12/05/18 20:40 Urine - Urine Massey Urine Culture - Final Escherichia Coli 12/02/18 20:30 Blood - Peripheral Venous Blood Culture - Final NO GROWTH AFTER 5 DAYS INCUBATION 12/02/18 19:30 Blood - Peripheral Venous Blood Culture - Final NO GROWTH AFTER 5 DAYS INCUBATION 12/06/18 14:55 Stool Clostridium difficile Antigen (NGUYEN) - Final 12/06/18 14:55 Stool Clostridium difficile Toxin Assay - Final 12/03/18 11:30 Sputum - Endotrachea Suction/Ventilator Gram Stain - Final 12/03/18 11:30 Sputum - Endotrachea Suction/Ventilator Sputum Culture - Final Serratia Marcescens 11/25/18 20:10 Blood - Peripheral Venous Blood Culture - Final NO GROWTH AFTER 5 DAYS INCUBATION 11/25/18 20:00 Blood - Peripheral Venous Blood Culture - Final NO GROWTH AFTER 5 DAYS INCUBATION 11/28/18 10:40 Sputum - Endotrachea Suction/Ventilator Gram Stain - Final 11/28/18 10:40 Sputum - Endotrachea Suction/Ventilator Sputum Culture - Final S Aureus 11/25/18 20:10 Urine - Urine Massey Urine Culture - Final NO GROWTH OBTAINED 11/26/18 13:20 Urine For Antigen Detection Legionella Antigen - Final 11/26/18 13:20 Urine For Antigen Detection Streptococcus pneumoniae Antigen (M - Final 11/20/18 08:11 Urine - Urine Clean Catch Urine Culture - Final NO GROWTH OBTAINED Vital Signs Temp 97.9 F 12/23/18 10:00 Pulse 95 H 12/23/18 10:00 Resp 18 12/23/18 10:00 BP 146/87 12/23/18 10:00 Pulse Ox 95 12/23/18 08:14 Intake & Output 12/22/18 12/23/18 12/23/18 23:59 11:59 23:59 Intake Total 250 300 Output Total 600 500 Balance -350 -200 Intake: Oral 250 300 Output: Urine 600 500 Massey 600 500 Other: Voiding Method Indwelling Catheter Indwelling Catheter Bowel Movement No # Bowel Movements 1 Condition: Stable - Instructions Diet, Activity, Other Instructions: -Follow up with Hematology, Nephrology, GI and endocrinology outpatient within 4 weeks Referrals: Martin Medrano MD [Primary Care Provider] - Gino Up MD [Staff Physician] - Richar Petty MD [Staff Physician] - Hayder Cates MD [Staff Physician] - Vijay Washington MD [Staff Physician] - Disposition: SNF FACILITY - Home Medications Comprehensive Discharge Medication List: Ambulatory Orders Albuterol Sulfate Inhaler - [Ventolin HFA Inhaler -] 2 puff PO QID PRN 06/07/15 Aspirin [Aspirin EC] 81 mg PO DAILY 06/07/15 Enalapril Maleate [Vasotec -] 20 mg PO DAILY 06/07/15 Insulin Glargine,Hum.rec.anlog [Lantus (10mL VIAL) -] 40 unit SQ HS 06/07/15 Salmeterol/Fluticasone [Advair 100Mcg/50Mcg -] 1 puff PO BID 06/07/15 Sertraline HCl 50 mg PO DAILY 06/07/15 metFORMIN HCL [Metformin HCl] 1,000 mg PO BID 06/07/15 Acetaminophen [Tylenol .Regular Strength -] 650 mg PO Q6H PRN #0 tablet Methadone [Dolophine -] 70 mg PO DAILY 01/30/16 Buspirone HCl 15 mg PO BID 07/22/18 Metoprolol Tartrate [Lopressor -] 25 mg PO BID #60 tablet 07/27/18 Nifedipine ER [Procardia XL -] 30 mg PO DAILY #30 tab.er.24 07/27/18 Acetaminophen [Tylenol .Extra-Strength -] 500 mg PO Q6H PRN tablet 12/21/18 Ammonium Lactate Lotion [Lac-Hydrin 12] 1 applic TP BID PRN bottle 12/21/18 Aspirin [ASA -] 81 mg PO DAILY tab.chew 12/21/18 Atorvastatin Ca [Lipitor] 80 mg PO HS tablet 12/21/18 Buspirone HCl [Buspar -] 15 mg NR BID tablet 12/21/18 Calcium 500Mg/Vit-D 200 Units [Os-Kyler 500+D -] 2 tab PO DAILY tab 12/21/18 Heparin - 5,000 unit SQ BID vial 12/21/18 Insulin Sliding Scale [Novolog Vial Sliding Scale -] 1 vial SQ TIDAC units Methadone HCl 20 mg PO DAILY #60 tablet MDD 2 12/21/18 Metoprolol Tartrate [Lopressor -] 25 mg PO BID tablet 12/21/18 Nystatin Oral Suspension - [Nystatin Oral Susp 779533 Units/5 ML -] 500,000 units PO Q6HPO cup 12/21/18 Ocular Lubricant Ophth Oint [Lacri-Lube S.o.p -] 1 applic OD HS PRN tube Pantoprazole Suspension [Protonix Packets For Oral Suspension -] 40 mg PO DAILY packet 12/21/18 Polyethylene Glycol 3350 [Miralax 119 gm Btl -] 17 gm PO BID bottle 12/21/18 Tamsulosin HCl [Flomax -] 0.8 mg PO DAILY@0830 cap.er.24h 12/21/18 Tiotropium Curtis [Spiriva Respimat] 2 puff IH DAILY inhaler 12/21/18 Valacyclovir HCl [Valtrex -] 500 mg PO DAILY tablet 12/21/18
[2018-12-23] MEDS ORDERED: DEXAMETHASONE 4 MG TABLET (FP) PO ONE (15:30)
--- NOTE | 2018-12-23 15:48 | PN ---
Progress Note, Physician History of Present Illness: Pt seen and examined at bedside. He is awake and appears comfortable. - Current Medication List Current Medications: Active Medications Acetaminophen (Tylenol -) 500 mg PO Q6H PRN PRN Reason: HEADACHE Last Admin: 12/20/18 22:19 Dose: 500 mg Artificial Tears (Lacri-Lube Eye Ointment -) 1 applic OD HS PRN PRN Reason: DRY EYES Last Admin: 12/10/18 22:49 Dose: 1 applic Aspirin (Asa -) 81 mg PO DAILY [facility] Last Admin: 12/23/18 09:19 Dose: 81 mg Atorvastatin Calcium (Lipitor -) 80 mg PO HS [facility] Last Admin: 12/22/18 21:35 Dose: 80 mg Buspirone HCl 10 mg/ Buspirone (HCl 5 mg) 15 mg PO BID [facility] Last Admin: 12/23/18 09:21 Dose: 15 mg Calcium Carbonate/Cholecalciferol (Os-Kyler 500+D -) 2 tab PO DAILY [facility] Last Admin: 12/23/18 09:22 Dose: 2 tab Heparin Sodium (Porcine) (Heparin -) 5,000 unit SQ BID [facility] Last Admin: 12/23/18 09:20 Dose: 5,000 unit Insulin Aspart (Novolog Vial Sliding Scale -) 1 vial SQ TIDAC [facility]; Protocol Last Admin: 12/23/18 11:37 Dose: 4 units Insulin Detemir (Levemir Vial) 20 units SQ HS [facility] Last Admin: 12/22/18 21:36 Dose: 20 units Lactic Acid (Lac-Hydrin 12) 1 applic TP BID PRN PRN Reason: xerosis Last Admin: 12/19/18 09:20 Dose: 1 applic Methadone HCl (Dolophine -) 20 mg PO DAILY@0600 [facility] Last Admin: 12/23/18 05:30 Dose: 20 mg Methadone HCl (Dolophine -) 10 mg PO DAILY@0600 [facility] Methylnaltrexone [place] (Relistor -) 8 mg SQ Q2D@1000 [facility] Last Admin: 12/22/18 11:01 Dose: 8 mg Metoprolol Tartrate (Lopressor -) 25 mg PO BID [facility] Last Admin: 12/23/18 09:24 Dose: 25 mg Nystatin (Nystatin Oral Suspension -) 500,000 units PO Q6HPO [facility] Last Admin: 12/23/18 11:37 Dose: 500,000 units Pantoprazole Sodium (Protonix Packets For Oral Suspension -) 40 mg PO DAILY [facility] Last Admin: 12/23/18 09:19 Dose: 40 mg Polyethylene Glycol (Miralax (For Daily Use) -) 17 gm PO BID [facility] Last Admin: 12/23/18 09:19 Dose: 17 gm Tamsulosin HCl (Flomax -) 0.8 mg PO DAILY@0830 [facility] Last Admin: 12/23/18 09:20 Dose: 0.8 mg Tiotropium [place] (Spiriva Respimat) 2 puff IH DAILY [facility] Last Admin: 12/23/18 10:57 Dose: 2 puff Valacyclovir HCl (Valtrex -) 500 mg PO DAILY [facility] Last Admin: 12/23/18 09:20 Dose: 500 mg - Objective Vital Signs: Vital Signs Temperature 97.9 F 12/23/18 13:28 Pulse Rate 86 12/23/18 13:28 Respiratory Rate 16 12/23/18 13:28 Blood Pressure 137/77 12/23/18 13:28 O2 Sat by Pulse Oximetry (%) 95 12/23/18 08:14 Constitutional: Yes: Calm Eyes: Yes: Conjunctiva Clear HENT: Yes: Atraumatic Cardiovascular: Yes: S1, S2 Respiratory: Yes: CTA Bilaterally Gastrointestinal: Yes: Soft Genitourinary: Yes: Massey Present Edema: No Neurological: Yes: Oriented Labs: CBC, BMP 12/21/18 06:00 12/22/18 07:15 INR, PTT INR 1.49 (0.83-1.09) H 12/10/18 05:15 Fibrinogen > 500.0 mg/dL (238-498) H 11/25/18 20:00 Problem List - Problems (1) CKD (chronic kidney disease) Code(s): N18.9 - CHRONIC KIDNEY DISEASE, UNSPECIFIED (2) Constipation Code(s): K59.00 - CONSTIPATION, UNSPECIFIED Qualifiers: Constipation type: unspecified constipation type Qualified Code(s): K59.00 - Constipation, unspecified (3) Hyponatremia Code(s): E87.1 - HYPO-OSMOLALITY AND HYPONATREMIA Assessment/Plan Current Medications Generic Name Dose Route Start Last Admin Trade Name Freq PRN Reason Stop Dose Admin Acetaminophen 500 mg 12/14/18 20:46 12/20/18 22:19 Tylenol - PO 500 mg Q6H PRN Administration HEADACHE Artificial Tears 1 applic 12/10/18 22:05 12/10/18 22:49 Lacri-Lube Eye Ointment - OD 1 applic HS PRN Administration DRY EYES Aspirin 81 mg 12/22/18 14:52 12/23/18 09:19 Asa - PO 81 mg DAILY YAKOV Administration Atorvastatin Calcium 80 mg 12/22/18 14:53 12/22/18 21:35 Lipitor - PO 80 mg HS YAKOV Administration Buspirone HCl 10 mg/ Buspirone 15 mg 12/22/18 14:53 12/23/18 09:21 HCl 5 mg PO 15 mg BID YAKOV Administration Calcium Carbonate/Cholecalciferol 2 tab 12/22/18 14:53 12/23/18 09:22 Os-K[place] 500+D - PO 2 tab DAILY YAKOV Administration Heparin Sodium (Porcine) 5,000 unit 12/21/18 22:00 12/23/18 09:20 Heparin - SQ 5,000 unit BID YAKOV Administration Insulin Aspart 1 vial 12/14/18 17:00 12/23/18 11:37 Novolog Vial Sliding Scale - SQ 4 units TIDAC [facility] Administration Protocol Insulin Detemir 20 units 12/08/18 22:00 12/22/18 21:36 Levemir Vial SQ 20 units HS YAKOV Administration Lactic Acid 1 applic 12/16/18 21:22 12/19/18 09:20 Lac-Hydrin 12 TP 1 applic BID PRN Administration xerosis Methadone HCl 20 mg 12/22/18 14:53 12/23/18 05:30 Dolophine - PO 20 mg DAILY@0600 YAKOV Administration Methadone HCl 10 mg 12/26/18 06:00 Dolophine - PO DAILY@0600 [facility] Methylnaltrexone [place] 8 mg 12/18/18 10:00 12/22/18 11:01 Relistor - SQ 8 mg Q2D@1000 [facility] Administration Metoprolol Tartrate 25 mg 12/08/18 22:00 12/23/18 09:24 Lopressor - PO 25 mg BID YAKOV Administration Nystatin 500,000 units 12/20/18 00:00 12/23/18 11:37 Nystatin Oral Suspension - PO 500,000 units Q6HPO YAKOV Administration Pantoprazole Sodium 40 mg 12/22/18 14:53 12/23/18 09:19 Protonix Packets For Oral Suspension - PO 40 mg DAILY YAK[facility] Administration Polyethylene Glycol 17 gm 12/15/18 22:00 12/23/18 09:19 Miralax (For Daily Use) - PO 17 gm BID YAKOV Administration Tamsulosin HCl 0.8 mg 12/21/18 08:30 12/23/18 09:20 Flomax - PO 0.8 mg DAILY@0830 [facility]AK[facility] Administration Tiotropium [place] 2 puff 12/09/18 10:00 12/23/18 10:57 Spiriva Respimat IH 2 puff DAILY YAKOV Administration Valacyclovir HCl 500 mg 12/22/18 14:53 12/23/18 09:20 Valtrex - PO 500 mg DAILY YAKOV Administration Impression 1. hyponatremia 2. CKD 3. nausea and vomiting 4. htn 5. DM 6. 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 multiple myeloma 9. anemia 10. proteinuria 11. hyperkalemia 12. resp failure 13. volume overload 14. hypernatremia 15. hyperkalemia Plan - mental status is improving - consider voiding trial - can see in office after discharge - may need lasix if he develops overload - discussed with heme onc Dr Cates
--- NOTE | 2018-12-23 15:49 | PN.GI ---
GI Progress Note Subjective: GI NOte: Tolerating diet. Having BMs . Denies bloating or nausea - Objective Vital Signs: Vital Signs Temperature 97.9 F 12/23/18 13:28 Pulse Rate 86 12/23/18 13:28 Respiratory Rate 16 12/23/18 13:28 Blood Pressure 137/77 12/23/18 13:28 O2 Sat by Pulse Oximetry (%) 95 12/23/18 08:14 Laboratory Tests 12/22/18 07:15 Total Bilirubin 0.3 AST 22 ALT 26 Alkaline Phosphatase 111 Constitutional: Calm ...Auscultate: Yes: Normoactive Bowel Sounds ...Palpate: Yes: Soft, Other (nontender) ...Percussion: Yes: Tympanitic Labs: CBC, BMP 12/21/18 06:00 12/22/18 07:15 INR, PTT INR 1.49 (0.83-1.09) H 12/10/18 05:15 Fibrinogen > 500.0 mg/dL (238-498) H 11/25/18 20:00 Assessment/Plan Impression: Multifactorial ileus aggravated by Methadone Congestive hepatopathy resolved HCV was cured Plan: Wean off Methadone Continue PPI and Miralax NO GI objections to discharge Problem List - Problems (1) Ileus Code(s): K56.7 - ILEUS, UNSPECIFIED (2) Abnormal LFTs (liver function tests) Code(s): R94.5 - ABNORMAL RESULTS OF LIVER FUNCTION STUDIES (3) Diabetic gastroparesis Code(s): E11.43 - TYPE 2 DIABETES W DIABETIC AUTONOMIC (POLY)NEUROPATHY; K31.84 - GASTROPARESIS (4) Constipation Code(s): K59.00 - CONSTIPATION, UNSPECIFIED Qualifiers: Qualified Code(s): K59.00 - Constipation, unspecified (5) Narcotic dependence Code(s): F11.20 - OPIOID DEPENDENCE, UNCOMPLICATED (6) Multiple myeloma Code(s): C90.00 - MULTIPLE MYELOMA NOT HAVING ACHIEVED REMISSION (7) Vertebral compression fracture Code(s): M48.50XA - COLLAPSED VERTEBRA, NEC, SITE UNSP, INIT (8) Diabetic neuropathy Code(s): E11.40 - TYPE 2 DIABETES MELLITUS WITH DIABETIC NEUROPATHY, UNSP (9) Diabetic retinopathy Code(s): E11.319 - TYPE 2 DIABETES W UNSP DIABETIC RTNOP W/O MACULAR EDEMA (10) History of heroin abuse Code(s): Z87.898 - PERSONAL HISTORY OF OTHER SPECIFIED CONDITIONS (11) History of cocaine abuse Code(s): Z87.898 - PERSONAL HISTORY OF OTHER SPECIFIED CONDITIONS (12) CKD (chronic kidney disease) Code(s): N18.9 - CHRONIC KIDNEY DISEASE, UNSPECIFIED (13) Neuropathy Code(s): G62.9 - POLYNEUROPATHY, UNSPECIFIED (14) Osteomyelitis Code(s): M86.9 - OSTEOMYELITIS, UNSPECIFIED (15) Type 2 diabetes mellitus with foot ulcer Code(s): E11.621 - TYPE 2 DIABETES MELLITUS WITH FOOT ULCER; L97.509 - NON- PRESSURE CHRONIC ULCER OTH PRT UNSP FOOT W UNSP SEVERITY Qualifiers: (16) Asthma Code(s): J45.909 - UNSPECIFIED ASTHMA, UNCOMPLICATED (17) Diabetes Code(s): E11.9 - TYPE 2 DIABETES MELLITUS WITHOUT COMPLICATIONS (18) Hepatitis C Code(s): B19.20 - UNSPECIFIED VIRAL HEPATITIS C WITHOUT HEPATIC COMA
--- NOTE | 2018-12-23 17:12 | PN ---
Progress Note (short form) - Note Progress Note: Patient seen and examined More verbal Speech is clearer No confusion Last Vital Signs Temp Pulse Resp BP Pulse Ox 97.9 F 86 16 137/77 95 12/23/18 13:28 12/23/18 13:28 12/23/18 13:28 12/23/18 13:28 12/23/18 08:14 HEENT: [place], EOM Intact Cor: RSR, No murmurs, No gallops Lungs: rhonchi, diminished breath sounds Abd: Soft, Normal bowel sounds, No organomegaly,distended Ext:LE edema edema Skin: Integument intact CBC, BMP 12/21/18 06:00 12/22/18 07:15 Current Medications Generic Name Dose Route Start Last Admin Trade Name Freq PRN Reason Stop Dose Admin Acetaminophen 500 mg 12/14/18 20:46 12/20/18 22:19 Tylenol - PO 500 mg Q6H PRN Administration HEADACHE Artificial Tears 1 applic 12/10/18 22:05 12/10/18 22:49 Lacri-Lube Eye Ointment - OD 1 applic HS PRN Administration DRY EYES Aspirin 81 mg 12/22/18 14:52 12/23/18 09:19 Asa - PO 81 mg DAILY YKAOV Administration Atorvastatin Calcium 80 mg 12/22/18 14:53 12/22/18 21:35 Lipitor - PO 80 mg HS YAKOV Administration Buspirone HCl 10 mg/ Buspirone 15 mg 12/22/18 14:53 12/23/18 09:21 HCl 5 mg PO 15 mg BID YAKOV Administration Calcium Carbonate/Cholecalciferol 2 tab 12/22/18 14:53 12/23/18 09:22 Os-Kyler 500+D - PO 2 tab DAILY YAKOV Administration Heparin Sodium (Porcine) 5,000 unit 12/21/18 22:00 12/23/18 09:20 Heparin - SQ 5,000 unit BID YAKOV Administration Insulin Aspart 1 vial 12/14/18 17:00 12/23/18 11:37 Novolog Vial Sliding Scale - SQ 4 units TIDAC YAKOV Administration Protocol Insulin Detemir 20 units 12/08/18 22:00 12/22/18 21:36 Levemir Vial SQ 20 units HS YAKOV Administration Lactic Acid 1 applic 12/16/18 21:22 12/19/18 09:20 Lac-Hydrin 12 TP 1 applic BID PRN Administration xerosis Methadone HCl 20 mg 12/22/18 14:53 12/23/18 05:30 Dolophine - PO 20 mg DAILY@0600 YAKOV Administration Methadone HCl 10 mg 12/26/18 06:00 Dolophine - PO DAILY@0600 [facility] Methylnaltrexone [place] 8 mg 12/18/18 10:00 12/22/18 11:01 Relistor - SQ 8 mg Q2D@1000 YAKOV Administration Metoprolol Tartrate 25 mg 12/08/18 22:00 12/23/18 09:24 Lopressor - PO 25 mg BID YAKOV Administration Nystatin 500,000 units 12/20/18 00:00 12/23/18 11:37 Nystatin Oral Suspension - PO 500,000 units Q6HPO YAKOV Administration Pantoprazole Sodium 40 mg 12/22/18 14:53 12/23/18 09:19 Protonix Packets For Oral Suspension - PO 40 mg DAILY YAKOV Administration Polyethylene Glycol 17 gm 12/15/18 22:00 12/23/18 09:19 Miralax (For Daily Use) - PO 17 gm BID YAKOV Administration Tamsulosin HCl 0.8 mg 12/21/18 08:30 12/23/18 09:20 Flomax - PO 0.8 mg DAILY@0830 YAKOV Administration Tiotropium [place] 2 puff 12/09/18 10:00 12/23/18 10:57 Spiriva Respimat IH 2 puff DAILY YAKOV Administration Valacyclovir HCl 500 mg 12/22/18 14:53 12/23/18 09:20 Valtrex - PO 500 mg DAILY YAKOV Administration Impression: S/P acute hypoxic respiratory failure Sepsis resolved Methadine maintenance Myeloma-not in remission. Dr. Grady to decide re addition of therapy for myeloma.
--- NOTE | 2018-12-23 19:47 | PN ---
S Progress Note (SOAP) Subjective: 63 y.o. male referred for consultation regarding tapering of Methadone dose . Per MR patient on 70 mg Methadone at admission , currently 20 mg Methadone q a.m. .Pt states he has been taking Methadone for pain since the dx of MM, with Methadone administration in the clinic where he received chemotherapy as well , with approximately 2 bottles of liquid methadone take- home, unknown dose , to use on as needed basis . Patient currently reports varying levels of back and neck pain , reports nocturnal pain ,up to 10/ 10 , with some relief from daily Methadone . Patient is currently awaiting sub-acute rehab placement and expresses concern about decreasing Methadone dose due to ongoing pain . Patient (& family @ bedside w/ pt consent) denies history of opioid dependence , insisting Methadone is being used for pain, reports rx for Oxycodone in the past . Active Medications Acetaminophen (Tylenol -) 500 mg PO Q6H PRN PRN Reason: HEADACHE Last Admin: 12/20/18 22:19 Dose: 500 mg Artificial Tears (Lacri-Lube Eye Ointment -) 1 applic OD HS PRN PRN Reason: DRY EYES Last Admin: 12/10/18 22:49 Dose: 1 applic Aspirin (Asa -) 81 mg PO DAILY [facility] Last Admin: 12/23/18 09:19 Dose: 81 mg Atorvastatin Calcium (Lipitor -) 80 mg PO HS [facility] Last Admin: 12/22/18 21:35 Dose: 80 mg Buspirone HCl 10 mg/ Buspirone (HCl 5 mg) 15 mg PO BID [facility] Last Admin: 12/23/18 09:21 Dose: 15 mg Calcium Carbonate/Cholecalciferol (Os-Kyler 500+D -) 2 tab PO DAILY [facility] Last Admin: 12/23/18 09:22 Dose: 2 tab Heparin Sodium (Porcine) (Heparin -) 5,000 unit SQ BID [facility] Last Admin: 12/23/18 09:20 Dose: 5,000 unit Insulin Aspart (Novolog Vial Sliding Scale -) 1 vial SQ TIDAC [facility]; Protocol Last Admin: 12/23/18 17:20 Dose: Not Given Insulin Detemir (Levemir Vial) 20 units SQ HS [facility] Last Admin: 12/22/18 21:36 Dose: 20 units Lactic Acid (Lac-Hydrin 12) 1 applic TP BID PRN PRN Reason: xerosis Last Admin: 12/19/18 09:20 Dose: 1 applic Methadone HCl (Dolophine -) 20 mg PO DAILY@0600 [facility] Last Admin: 12/23/18 05:30 Dose: 20 mg Methadone HCl (Dolophine -) 10 mg PO DAILY@0600 [facility] Methylnaltrexone [place] (Relistor -) 8 mg SQ Q2D@1000 [facility] Last Admin: 12/22/18 11:01 Dose: 8 mg Metoprolol Tartrate (Lopressor -) 25 mg PO BID [facility] Last Admin: 12/23/18 09:24 Dose: 25 mg Nystatin (Nystatin Oral Suspension -) 500,000 units PO Q6HPO [facility] Last Admin: 12/23/18 18:05 Dose: 500,000 units Pantoprazole Sodium (Protonix Packets For Oral Suspension -) 40 mg PO DAILY [facility] Last Admin: 12/23/18 09:19 Dose: 40 mg Polyethylene Glycol (Miralax (For Daily Use) -) 17 gm PO BID [facility] Last Admin: 12/23/18 09:19 Dose: 17 gm Tamsulosin HCl (Flomax -) 0.8 mg PO DAILY@0830 [facility] Last Admin: 12/23/18 09:20 Dose: 0.8 mg Tiotropium [place] (Spiriva Respimat) 2 puff IH DAILY [facility] Last Admin: 12/23/18 10:57 Dose: 2 puff Valacyclovir HCl (Valtrex -) 500 mg PO DAILY [facility] Last Admin: 12/23/18 09:20 Dose: 500 mg PMHx : HTN, T2DM x 15 years, HLD, PVD, ASHD, Hep C (s/p Harvoni), multiple myeloma , constipation GIB, ARF . Search Terms: napoleon araujo, 1955 Search Date: 12/23/2018 08:00:19 PM The Drug Utilization Report below displays all of the controlled substance prescriptions, if any, that your patient has filled in the last twelve months. The information displayed on this report is compiled from pharmacy submissions to the Department, and accurately reflects the information as submitted by the pharmacies. This report was requested by: Elise Telles | Reference #: [id number] Others' Prescriptions Patient Name: Napoleon Araujo Date: 1955 Address: [address] [address] Sex: Male Rx Written Rx Dispensed Drug Quantity Days Supply Prescriber Name 10/21/2018 10/21/2018 oxycodone hcl 5 mg tablet 90 30 Ysabel López MD 09/26/2018 09/26/2018 oxycodone hcl 5 mg tablet 30 10 Ysabel López MD 08/31/2018 09/02/2018 tramadol hcl 50 mg tablet 90 30 Ysabel López MD 08/24/2018 08/24/2018 tramadol hcl 50 mg tablet 14 7 Ysabel López MD Upon further questioning, Pt reports giving out his info for someone else to use in a methadone clinic in [place] , states " then I ripped up the card " , unclear about timeline of events. Objective: wnwd , resting in bed comfortably , AAO x 3 . resp : no distress noted . Vital Signs - 24 hr 12/22/18 12/23/18 12/23/18 21:00 02:00 06:00 Temperature 99.0 F 97.9 F 98.0 F Pulse Rate 92 H 82 93 H Respiratory 20 18 20 Rate Blood Pressure 127/79 121/92 149/91 O2 Sat by Pulse 96 Oximetry (%) 12/23/18 12/23/18 12/23/18 08:14 10:00 13:28 Temperature 97.9 F 97.9 F Pulse Rate 95 H 86 Respiratory 18 16 Rate Blood Pressure 146/87 137/77 O2 Sat by Pulse 95 Oximetry (%) 12/23/18 18:35 Temperature 97.6 F Pulse Rate 96 H Respiratory 18 Rate Blood Pressure 143/86 O2 Sat by Pulse Oximetry (%) CBC, BMP 12/21/18 06:00 12/22/18 07:15 12/23/18 20:11 Assessment: Pain syndrome / Multiple myeloma/ vertebral pathological fractures . Plan: Discussed w/ patient , reluctant to implement any dose changes at this time, would like to re-consider at a later time, i.e. after transfer to SNF facility .
[2018-12-23] MEDS ORDERED: PT OWN MED DRAWER 7, Y5N ONE ×2 (21:37→23:01)
[2018-12-23] MEDS: INSULIN (LEVEMIR) 100 UNITS/ML UNITS SQ SCH (22:14)
[2018-12-23] MEDS: ATORVASTATIN CA 80 MG TABLET (FP) PO SCH (22:15)
[2018-12-24] MEDS ORDERED: MAG HYDROX/AL HYDROX/SIMETH 30 ML UNIT-DOSE CUP PO ONE (01:00)
[2018-12-24] MEDS: NYSTATIN 500,000 UNITS/5 ML SUSPENSION PO SCH ×4 (01:06→17:26)
[2018-12-24] MEDS: INSULIN SLIDING SCALE (NOVOLOG) 1 VIAL SQ SCH ×3 (06:08→17:15)
[2018-12-24] MEDS: METHADONE HCL 40 MG DISPERSABLE TABLET PO SCH (06:08)
[2018-12-24 07:19] LABS: ALBUMIN 2.4 g/dl (3.4-5.0); ALK PHOS 105 U/L (45-117); ANION GAP 7 MMOL/L (8-16); BILIRUBIN,TOTAL 0.3 mg/dL (0.2-1); BLOOD UREA NITROGEN 21 mg/dL (7-18); CALCIUM 7.6 mg/dL (8.5-10.1); CHLORIDE 110 mmol/L (98-107); CO2 20 mmol/L (21-32); CREATININE 1.3 mg/dL (0.55-1.3); GLUCOSE,RANDOM 227 mg/dL (74-106); SGOT/AST 18 U/L (15-37); SGPT/ALT 28 U/L (13-61); SODIUM 138 mmol/L (136-145); TOT PROT 5.8 g/dl (6.4-8.2)
[2018-12-24] MEDS ORDERED: PT OWN MED DRAWER 7, Y5N ONE ×2 (08:58→21:12)
[2018-12-24] MEDS: PANTOPRAZOLE SOD 40 MG SUSPENSION PACKET PO SCH (09:05)
[2018-12-24] MEDS: TAMSULOSIN HCL 0.4 MG CAP PO SCH (09:05)
[2018-12-24] MEDS: CALCIUM 500MG/VIT-D 200 UNITS COMBO TABLET (FP) PO SCH (09:05)
[2018-12-24] MEDS: HEPARIN NA (PORCINE) 5,000 UNITS/ML 1ML VIAL SQ SCH ×2 (09:05→21:24)
[2018-12-24] MEDS: ASPIRIN 81 MG CHEWABLE TABLETS PO SCH (09:06)
[2018-12-24] MEDS: BUSPIRONE HCL 10 MG, BUSPIRONE HCL 5 MG PO SCH ×2 (09:06→21:25)
[2018-12-24] MEDS: METOPROLOL TARTRATE 25 MG TABLET (FP) PO SCH ×2 (09:06→21:24)
[2018-12-24] MEDS: valACYclovir HCL 500 MG TABLET (FP) PO SCH (09:06)
[2018-12-24] MEDS: TIOTROPIUM BROMIDE 2.5 MCG (SPIRIVA) RESPIMAT INHALER IH SCH (09:07)
[2018-12-24] MEDS: POLYETHYLENE GLYCOL 3350 119 GM BTL PO SCH ×2 (09:18→21:25)
[2018-12-24] MEDS: Methylnaltrexone Bromide 12 MG/0.6 ML KIT SQ SCH (11:32)
[2018-12-24 14:06] LABS: HEMATOCRIT 27.8 % (35.4-49); HEMOGLOBIN 9.7 GM/dL (11.7-16.9); MCH 30.5 pg (25.7-33.7); MCHC 34.9 g/dl (32.0-35.9); MEAN CELL VOLUME 87.3 fl (80-96); MEAN PLT VOLUME 9.3 fl (7.5-11.1); PLATELET COUNT 189 K/MM3 (134-434); RBC 3.19 M/mm3 (4.00-5.60); RDW 18.7 % (11.9-15.9); WHITE BLOOD COUNT 4.4 K/mm3 (4.0-10.0)
--- NOTE | 2018-12-24 15:27 | PN ---
Progress Note, Physician Chief Complaint: Acute respiratory failure CA History of Present Illness: Previous notes and events reviewed awake and alert NAD patient is pending discharge to SNF denies abdominal pain, difficulty breathing, chest pain - Current Medication List Current Medications: Active Medications Acetaminophen (Tylenol -) 500 mg PO Q6H PRN PRN Reason: HEADACHE Last Admin: 12/20/18 22:19 Dose: 500 mg Artificial Tears (Lacri-Lube Eye Ointment -) 1 applic OD HS PRN PRN Reason: DRY EYES Last Admin: 12/10/18 22:49 Dose: 1 applic Aspirin (Asa -) 81 mg PO DAILY [facility] Last Admin: 12/24/18 09:06 Dose: 81 mg Atorvastatin Calcium (Lipitor -) 80 mg PO HS [facility] Last Admin: 12/23/18 22:15 Dose: 80 mg Buspirone HCl 10 mg/ Buspirone (HCl 5 mg) 15 mg PO BID [facility] Last Admin: 12/24/18 09:06 Dose: 15 mg Calcium Carbonate/Cholecalciferol (Os-Kyler 500+D -) 2 tab PO DAILY [facility] Last Admin: 12/24/18 09:05 Dose: 2 tab Heparin Sodium (Porcine) (Heparin -) 5,000 unit SQ BID [facility] Last Admin: 12/24/18 09:05 Dose: 5,000 unit Insulin Aspart (Novolog Vial Sliding Scale -) 1 vial SQ TIDAC [facility]; Protocol Last Admin: 12/24/18 11:31 Dose: 2 units Insulin Detemir (Levemir Vial) 20 units SQ [facility] Last Admin: 12/23/18 22:14 Dose: 20 units Lactic Acid (Lac-Hydrin 12) 1 applic TP BID PRN PRN Reason: xerosis Last Admin: 12/19/18 09:20 Dose: 1 applic Methadone HCl (Dolophine -) 20 mg PO DAILY@0600 [facility] Last Admin: 12/24/18 06:08 Dose: 20 mg Methadone HCl (Dolophine -) 10 mg PO DAILY@0600 [facility] Methylnaltrexone [place] (Relistor -) 8 mg SQ Q2D@1000 [facility] Last Admin: 12/24/18 11:32 Dose: 8 mg Metoprolol Tartrate (Lopressor -) 25 mg PO BID [facility] Last Admin: 12/24/18 09:06 Dose: 25 mg Nystatin (Nystatin Oral Suspension -) 500,000 units PO Q6HPO [facility] Last Admin: 12/24/18 12:23 Dose: 500,000 units Pantoprazole Sodium (Protonix Packets For Oral Suspension -) 40 mg PO DAILY [facility] Last Admin: 12/24/18 09:05 Dose: 40 mg Polyethylene Glycol (Miralax (For Daily Use) -) 17 gm PO BID [facility] Last Admin: 12/24/18 09:18 Dose: 17 gm Tamsulosin HCl (Flomax -) 0.8 mg PO DAILY@0830 [facility] Last Admin: 12/24/18 09:05 Dose: 0.8 mg Tiotropium [place] (Spiriva Respimat) 2 puff IH DAILY [facility] Last Admin: 12/24/18 09:07 Dose: 2 puff Valacyclovir HCl (Valtrex -) 500 mg PO DAILY [facility] Last Admin: 12/24/18 09:06 Dose: 500 mg - Objective Vital Signs: Vital Signs Temperature 98.2 F 12/24/18 10:00 Pulse Rate 80 12/24/18 10:00 Respiratory Rate 18 12/24/18 10:00 Blood Pressure 122/70 12/24/18 10:00 O2 Sat by Pulse Oximetry (%) 100 12/24/18 09:00 Constitutional: Yes: No Distress, Calm Eyes: Yes: Conjunctiva Clear HENT: Yes: Atraumatic Cardiovascular: Yes: Regular Rate and Rhythm Respiratory: Yes: Regular, CTA Bilaterally Gastrointestinal: Yes: Normal Bowel Sounds, Soft Genitourinary: Yes: Incontinence Musculoskeletal: Yes: Muscle Weakness Extremities: Yes: WNL Edema: No Neurological: Yes: Alert, Pre-Existing Deficit Psychiatric: Yes: Alert Labs: CBC, BMP 12/24/18 09:00 12/24/18 06:00 INR, PTT INR 1.49 (0.83-1.09) H 12/10/18 05:15 Fibrinogen > 500.0 mg/dL (238-498) H 11/25/18 20:00 Problem List - Problems (1) CKD (chronic kidney disease) Assessment/Plan: -renal on board -BUN/Cr 24/10.3 -will continue to monitor trend Code(s): N18.9 - CHRONIC KIDNEY DISEASE, UNSPECIFIED (2) [facility]HgA1c 7.7% -ISS Code(s): E11.9 - TYPE 2 DIABETES MELLITUS WITHOUT COMPLICATIONS Qualifiers: Diabetes mellitus type: type 2 (3) Respiratory failure Assessment/Plan: -O2 via NC prn for SOB -maintain SpO2 >90% -pulm on board -bronchodilator -IV methylprednisone -IV ABT Code(s): J96.90 - RESPIRATORY FAILURE, UNSP, UNSP W HYPOXIA OR HYPERCAPNIA (4) Hyponatremia Assessment/Plan: -resolved Code(s): E87.1 - HYPO-OSMOLALITY AND HYPONATREMIA (5) Multiple myeloma Assessment/Plan: -heme on board Code(s): C90.00 - MULTIPLE MYELOMA NOT HAVING ACHIEVED REMISSION (6) OB + stool Assessment/Plan: -GI on board -continue pantoprazole Code(s): R19.5 - OTHER FECAL ABNORMALITIES Assessment/Plan see problem list dvt ppx
--- NOTE | 2018-12-24 15:43 | PN ---
Progress Note, Physician History of Present Illness: Pt seen and examined at bedside. He is awake and alert. He denies shortness of breath. - Current Medication List Current Medications: Active Medications Acetaminophen (Tylenol -) 500 mg PO Q6H PRN PRN Reason: HEADACHE Last Admin: 12/20/18 22:19 Dose: 500 mg Artificial Tears (Lacri-Lube Eye Ointment -) 1 applic OD HS PRN PRN Reason: DRY EYES Last Admin: 12/10/18 22:49 Dose: 1 applic Aspirin (Asa -) 81 mg PO DAILY [facility] Last Admin: 12/24/18 09:06 Dose: 81 mg Atorvastatin Calcium (Lipitor -) 80 mg PO HS [facility] Last Admin: 12/23/18 22:15 Dose: 80 mg Buspirone HCl 10 mg/ Buspirone (HCl 5 mg) 15 mg PO BID [facility] Last Admin: 12/24/18 09:06 Dose: 15 mg Calcium Carbonate/Cholecalciferol (Os-Kyler 500+D -) 2 tab PO DAILY [facility] Last Admin: 12/24/18 09:05 Dose: 2 tab Heparin Sodium (Porcine) (Heparin -) 5,000 unit SQ BID [facility] Last Admin: 12/24/18 09:05 Dose: 5,000 unit Insulin Aspart (Novolog Vial Sliding Scale -) 1 vial SQ TIDAC [facility]; Protocol Last Admin: 12/24/18 11:31 Dose: 2 units Insulin Detemir (Levemir Vial) 20 units SQ HS [facility] Last Admin: 12/23/18 22:14 Dose: 20 units Lactic Acid (Lac-Hydrin 12) 1 applic TP BID PRN PRN Reason: xerosis Last Admin: 12/19/18 09:20 Dose: 1 applic Methadone HCl (Dolophine -) 20 mg PO DAILY@0600 [facility] Last Admin: 12/24/18 06:08 Dose: 20 mg Methadone HCl (Dolophine -) 10 mg PO DAILY@0600 [facility] Methylnaltrexone [place] (Relistor -) 8 mg SQ Q2D@1000 [facility] Last Admin: 12/24/18 11:32 Dose: 8 mg Metoprolol Tartrate (Lopressor -) 25 mg PO BID [facility] Last Admin: 12/24/18 09:06 Dose: 25 mg Nystatin (Nystatin Oral Suspension -) 500,000 units PO Q6HPO [facility] Last Admin: 12/24/18 12:23 Dose: 500,000 units Pantoprazole Sodium (Protonix Packets For Oral Suspension -) 40 mg PO DAILY [facility] Last Admin: 12/24/18 09:05 Dose: 40 mg Polyethylene Glycol (Miralax (For Daily Use) -) 17 gm PO BID [facility] Last Admin: 12/24/18 09:18 Dose: 17 gm Tamsulosin HCl (Flomax -) 0.8 mg PO DAILY@0830 [facility] Last Admin: 12/24/18 09:05 Dose: 0.8 mg Tiotropium [place] (Spiriva Respimat) 2 puff IH DAILY [facility] Last Admin: 12/24/18 09:07 Dose: 2 puff Valacyclovir HCl (Valtrex -) 500 mg PO DAILY [facility] Last Admin: 12/24/18 09:06 Dose: 500 mg - Objective Vital Signs: Vital Signs Temperature 98.2 F 12/24/18 10:00 Pulse Rate 80 12/24/18 10:00 Respiratory Rate 18 12/24/18 10:00 Blood Pressure 122/70 12/24/18 10:00 O2 Sat by Pulse Oximetry (%) 100 12/24/18 09:00 Constitutional: Yes: Calm Eyes: Yes: Conjunctiva Clear HENT: Yes: Atraumatic Neck: Yes: Supple Cardiovascular: Yes: S1, S2 Respiratory: Yes: CTA Bilaterally Gastrointestinal: Yes: Soft Genitourinary: Yes: WNL Musculoskeletal: Yes: WNL Edema: No Neurological: Yes: Oriented Psychiatric: Yes: Oriented Labs: CBC, BMP 12/24/18 09:00 12/24/18 06:00 INR, PTT INR 1.49 (0.83-1.09) H 12/10/18 05:15 Fibrinogen > 500.0 mg/dL (238-498) H 11/25/18 20:00 Problem List - Problems (1) CKD (chronic kidney disease) Code(s): N18.9 - CHRONIC KIDNEY DISEASE, UNSPECIFIED (2) Constipation Code(s): K59.00 - CONSTIPATION, UNSPECIFIED Qualifiers: Constipation type: unspecified constipation type Qualified Code(s): K59.00 - Constipation, unspecified (3) Hyponatremia Code(s): E87.1 - HYPO-OSMOLALITY AND HYPONATREMIA Assessment/Plan Current Medications Generic Name Dose Route Start Last Admin Trade Name Freq PRN Reason Stop Dose Admin Acetaminophen 500 mg 12/14/18 20:46 12/20/18 22:19 Tylenol - PO 500 mg Q6H PRN Administration HEADACHE Artificial Tears 1 applic 12/10/18 22:05 12/10/18 22:49 Lacri-Lube Eye Ointment - OD 1 applic HS PRN Administration DRY EYES Aspirin 81 mg 12/22/18 14:52 12/24/18 09:06 Asa - PO 81 mg DAILY YAKOV Administration Atorvastatin Calcium 80 mg 12/22/18 14:53 12/23/18 22:15 Lipitor - PO 80 mg HS YAKOV Administration Buspirone HCl 10 mg/ Buspirone 15 mg 12/22/18 14:53 12/24/18 09:06 HCl 5 mg PO 15 mg BID YAKOV Administration Calcium Carbonate/Cholecalciferol 2 tab 12/22/18 14:53 12/24/18 09:05 Os-Kyler 500+D - PO 2 tab DAILY YAKOV Administration Heparin Sodium (Porcine) 5,000 unit 12/21/18 22:00 12/24/18 09:05 Heparin - SQ 5,000 unit BID YAKOV Administration Insulin Aspart 1 vial 12/14/18 17:00 12/24/18 11:31 Novolog Vial Sliding Scale - SQ 2 units TIDAC [facility] Administration Protocol Insulin Detemir 20 units 12/08/18 22:00 12/23/18 22:14 Levemir Vial SQ 20 units HS YAKOV Administration Lactic Acid 1 applic 12/16/18 21:22 12/19/18 09:20 Lac-Hydrin 12 TP 1 applic BID PRN Administration xerosis Methadone HCl 20 mg 12/22/18 14:53 12/24/18 06:08 Dolophine - PO 20 mg DAILY@0600 YAKOV Administration Methadone HCl 10 mg 12/26/18 06:00 Dolophine - PO DAILY@0600 [facility] Methylnaltrexone [place] 8 mg 12/18/18 10:00 12/24/18 11:32 Relistor - SQ 8 mg Q2D@1000 [facility] Administration Metoprolol Tartrate 25 mg 12/08/18 22:00 12/24/18 09:06 Lopressor - PO 25 mg BID YAKOV Administration Nystatin 500,000 units 12/20/18 00:00 12/24/18 12:23 Nystatin Oral Suspension - PO 500,000 units Q6HPO YAKOV Administration Pantoprazole Sodium 40 mg 12/22/18 14:53 12/24/18 09:05 Protonix Packets For Oral Suspension - PO 40 mg DAILY YAKOV Administration Polyethylene Glycol 17 gm 12/15/18 22:00 12/24/18 09:18 Miralax (For Daily Use) - PO 17 gm BID YAKOV Administration Tamsulosin HCl 0.8 mg 12/21/18 08:30 12/24/18 09:05 Flomax - PO 0.8 mg DAILY@0830 YAKOV Administration Tiotropium [place] 2 puff 12/09/18 10:00 12/24/18 09:07 Spiriva Respimat IH 2 puff DAILY YAKOV Administration Valacyclovir HCl 500 mg 12/22/18 14:53 12/24/18 09:06 Valtrex - PO 500 mg DAILY YAKOV Administration Impression 1. hyponatremia 2. CKD 3. nausea and vomiting 4. htn 5. DM 6. 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 multiple myeloma 9. anemia 10. proteinuria 11. hyperkalemia 12. resp failure 13. volume overload 14. hypernatremia 15. hyperkalemia Plan - pt appears comfortable - cont low potassium diet - monitor volume status - may need lasix if he develops overload Dr Cates
--- NOTE | 2018-12-24 16:09 | PN ---
Progress Note (short form) - Note Progress Note: Denies any complaints Still on Puree diet as he doesn't have his dentures Vital Signs Period Temp Pulse Resp BP Sys/Andre Pulse Ox Last 24 Hr 97.5 F-98.2 F 80-96 16-20 122-147/70-87 100-100 PE: AOx3 HEENT: EoMI Neck: Supple, No JVD Lungs: CTA CVS: S1S2 Abd: Benign Ext: No edema CMP Sodium 138 mmol/L (136-145) 12/24/18 06:00 Potassium 5.0 mmol/L (3.5-5.1) 12/24/18 06:00 Chloride 110 mmol/L (98-107) H 12/24/18 06:00 Carbon Dioxide 20 mmol/L (21-32) L 12/24/18 06:00 Anion Gap 7 MMOL/L (8-16) L 12/24/18 06:00 BUN 21 mg/dL (7-18) H 12/24/18 06:00 Creatinine 1.3 mg/dL (0.55-1.3) 12/24/18 06:00 Creat Clearance w eGFR 55.40 (>60) 12/24/18 06:00 POC Glucometer 231 UNITS (80-120) 12/24/18 11:25 Random Glucose 227 mg/dL (74-106) H 12/24/18 06:00 Hemoglobin A1c % 7.7 % (4.2-6.3) H 11/28/18 05:15 Serum Osmolality 271 mosm/kg (278-305) L 11/20/18 21:00 Lactic Acid 0.9 mmol/L (0.4-2.0) 11/20/18 08:30 Uric Acid 4.9 mg/dL (2.6-7.2) 11/26/18 05:30 Calcium 7.6 mg/dL (8.5-10.1) L 12/24/18 06:00 Phosphorus 3.6 mg/dL (2.5-4.9) 12/09/18 06:00 Magnesium 2.2 mg/dL (1.8-2.4) 12/10/18 05:15 Iron 28 ug/dL (38-169) L 11/28/18 05:15 TIBC 245 ug/dL (250-450) L 11/28/18 05:15 Iron Saturation 11 % (15-55) L 11/28/18 05:15 Ferritin 184.3 ng/ml (8-388) 11/28/18 05:15 Total Bilirubin 0.3 mg/dL (0.2-1) 12/24/18 06:00 Direct Bilirubin 0.1 mg/dL (0.0-0.2) 12/17/18 06:15 AST 18 U/L (15-37) 12/24/18 06:00 ALT 28 U/L (13-61) 12/24/18 06:00 Alkaline Phosphatase 105 U/L (45-117) 12/24/18 06:00 LD Total 297 U/L (87-246) H 11/26/18 05:30 Ammonia 17.10 umol/L (11-32) 12/17/18 05:50 Creatine Kinase 180 U/L (26-308) 11/30/18 16:00 Creatine Kinase Index 5.6 % (0.0-5.0) H 11/30/18 16:00 CK-MB (CK-2) 10.2 ng/mL (0.5-3.6) H 11/30/18 16:00 CK-BB (CK-1) 0 % TOTAL (0) 11/25/18 20:00 CK/CKMB % Calc 0 % (0-3) 11/25/18 20:00 Troponin I 0.07 ng/ml (0.00-0.05) H 12/17/18 05:50 Total Protein 5.8 g/dl (6.4-8.2) L 12/24/18 06:00 Albumin 2.4 g/dl (3.4-5.0) L 12/24/18 06:00 Lipase 242 U/L (73-393) 11/20/18 08:30 Tumor Marker AFP 5.0 ng/ml (0.0-8.3) 12/17/18 05:50 Vitamin B12 1332 pg/ml (193-986) H 12/17/18 05:50 Serum Folate 16 ng/mL (3.1-17.5) 12/17/18 05:50 Free T4 1.04 ng/dl (0.76-1.16) 02/25/19 05:15 TSH 2.41 uIU/ml (0.358-3.74) D 12/17/18 05:50 Current Medications Generic Name Dose Route Start Last Admin Trade Name Imani PRN Reason Stop Dose Admin Acetaminophen 500 mg 12/14/18 20:46 12/20/18 22:19 Tylenol - PO 500 mg Q6H PRN Administration HEADACHE Artificial Tears 1 applic 12/10/18 22:05 12/10/18 22:49 Lacri-Lube Eye Ointment - OD 1 applic HS PRN Administration DRY EYES Aspirin 81 mg 12/22/18 14:52 12/24/18 09:06 Asa - PO 81 mg DAILY YAKOV Administration Atorvastatin Calcium 80 mg 12/22/18 14:53 12/23/18 22:15 Lipitor - PO 80 mg HS YAKOV Administration Buspirone HCl 10 mg/ Buspirone 15 mg 12/22/18 14:53 12/24/18 09:06 HCl 5 mg PO 15 mg BID YAKOV Administration Calcium Carbonate/Cholecalciferol 2 tab 12/22/18 14:53 12/24/18 09:05 Os-Kyler 500+D - PO 2 tab DAILY YAKOV Administration Heparin Sodium (Porcine) 5,000 unit 12/21/18 22:00 12/24/18 09:05 Heparin - SQ 5,000 unit BID [facility] Administration Insulin Aspart 1 vial 12/14/18 17:00 12/24/18 11:31 Novolog Vial Sliding Scale - SQ 2 units TIDAC [facility] Administration Protocol Insulin Detemir 20 units 12/08/18 22:00 12/23/18 22:14 Levemir Vial SQ 20 units HS [facility] Administration Lactic Acid 1 applic 12/16/18 21:22 12/19/18 09:20 Lac-Hydrin 12 TP 1 applic BID PRN Administration xerosis Methadone HCl 20 mg 12/22/18 14:53 12/24/18 06:08 Dolophine - PO 20 mg DAILY@0600 [facility] Administration Methadone HCl 10 mg 12/26/18 06:00 Dolophine - PO DAILY@0600 [facility] Methylnaltrexone [place] 8 mg 12/18/18 10:00 12/24/18 11:32 Relistor - SQ 8 mg Q2D@1000 [facility] Administration Metoprolol Tartrate 25 mg 12/08/18 22:00 12/24/18 09:06 Lopressor - PO 25 mg BID YAKOV Administration Nystatin 500,000 units 12/20/18 00:00 12/24/18 12:23 Nystatin Oral Suspension - PO 500,000 units Q6HPO YAKOV Administration Pantoprazole Sodium 40 mg 12/22/18 14:53 12/24/18 09:05 Protonix Packets For Oral Suspension - PO 40 mg DAILY YAKOV Administration Polyethylene Glycol 17 gm 12/15/18 22:00 12/24/18 09:18 Miralax (For Daily Use) - PO 17 gm BID YAKOV Administration Tamsulosin HCl 0.8 mg 12/21/18 08:30 12/24/18 09:05 Flomax - PO 0.8 mg DAILY@0830 YAKOV Administration Tiotropium [place] 2 puff 12/09/18 10:00 12/24/18 09:07 Spiriva Respimat IH 2 puff DAILY YAKOV Administration Valacyclovir HCl 500 mg 12/22/18 14:53 12/24/18 09:06 Valtrex - PO 500 mg DAILY YAKOV Administration AP: T2DM: Insulin requiring A1c on 07.21.18 was 7.3 and 7.7 on 11.28.28 Multiple myeloma- not in remission Bone mets Acute NSTEMI Acute hypoxic respiratory failure:improving Sepsis improved Anemia DARIO- improved Confusion - improving BGM QACHS Continue Levemir 20 units daily NOvolog SS coverage premeals May need to change Novolog coverage to give pt Novolog even when FS 100 to 150 Discussed with daughter at bedside Will f/u
--- NOTE | 2018-12-24 20:06 | PN ---
Progress Note (short form) - Note Progress Note: Patient seen and examined in icu awake, alert confusion improved Last Vital Signs Temp Pulse Resp BP Pulse Ox 97.7 F 86 16 130/82 100 12/24/18 13:56 12/24/18 13:56 12/24/18 13:56 12/24/18 13:56 12/24/18 09:00 Cor: RSR, No murmurs, No gallops Lungs: Clear to auscultation anteriorly Abd: Soft, Normal bowel sounds, No organomegaly Ext:chronic stasis dermatitis Abnormal Lab Results 12/24/18 12/24/18 06:00 09:00 RBC 3.19 L Hgb 9.7 L Hct 27.8 L RDW 18.7 H Chloride 110 H Carbon Dioxide 20 L Anion Gap 7 L BUN 21 H Random Glucose 227 H Calcium 7.6 L Total Protein 5.8 L Albumin 2.4 L Active Medications Generic Name Dose Route Start Last Admin Trade Name Freq PRN Reason Stop Dose Admin Acetaminophen 500 mg 12/14/18 20:46 12/20/18 22:19 Tylenol - PO 500 mg Q6H PRN Administration HEADACHE Artificial Tears 1 applic 12/10/18 22:05 12/10/18 22:49 Lacri-Lube Eye Ointment - OD 1 applic HS PRN Administration DRY EYES Aspirin 81 mg 12/22/18 14:52 12/24/18 09:06 Asa - PO 81 mg DAILY YAKOV Administration Atorvastatin Calcium 80 mg 12/22/18 14:53 12/23/18 22:15 Lipitor - PO 80 mg HS YAKOV Administration Buspirone HCl 10 mg/ Buspirone 15 mg 12/22/18 14:53 12/24/18 09:06 HCl 5 mg PO 15 mg BID YAKOV Administration Calcium Carbonate/Cholecalciferol 2 tab 12/22/18 14:53 12/24/18 09:05 Os-[place]yler 500+D - PO 2 tab DAILY YAKOV Administration Heparin Sodium (Porcine) 5,000 unit 12/21/18 22:00 12/24/18 09:05 Heparin - SQ 5,000 unit BID YAKOV Administration Insulin Aspart 1 vial 12/14/18 17:00 12/24/18 17:15 Novolog Vial Sliding Scale - SQ Not Given TIDAC [facility] Protocol Insulin Detemir 20 units 12/08/18 22:00 12/23/18 22:14 Levemir Vial SQ 20 units HS YAKOV Administration Lactic Acid 1 applic 12/16/18 21:22 12/19/18 09:20 Lac-Hydrin 12 TP 1 applic BID PRN Administration xerosis Methadone HCl 20 mg 12/22/18 14:53 12/24/18 06:08 Dolophine - PO 20 mg DAILY@0600 YAKOV Administration Methadone HCl 10 mg 12/26/18 06:00 Dolophine - PO DAILY@0600 [facility] Methylnaltrexone [place] 8 mg 12/18/18 10:00 12/24/18 11:32 Relistor - SQ 8 mg Q2D@1000 YAKOV Administration Metoprolol Tartrate 25 mg 12/08/18 22:00 12/24/18 09:06 Lopressor - PO 25 mg BID YAKOV Administration Nystatin 500,000 units 12/20/18 00:00 12/24/18 17:26 Nystatin Oral Suspension - PO 500,000 units Q6HPO YAKOV Administration Pantoprazole Sodium 40 mg 12/22/18 14:53 12/24/18 09:05 Protonix Packets For Oral Suspension - PO 40 mg DAILY YAKOV Administration Polyethylene Glycol 17 gm 12/15/18 22:00 12/24/18 09:18 Miralax (For Daily Use) - PO 17 gm BID YAKOV Administration Tamsulosin HCl 0.8 mg 12/21/18 08:30 12/24/18 09:05 Flomax - PO 0.8 mg DAILY@0830 YAKOV Administration Tiotropium [place] 2 puff 12/09/18 10:00 12/24/18 09:07 Spiriva Respimat IH 2 puff DAILY YAKOV Administration Valacyclovir HCl 500 mg 12/22/18 14:53 12/24/18 09:06 Valtrex - PO 500 mg DAILY YAKOV Administration A/P 63 y/o patient with multiple comorbidites, HTN, DM, PVD, ? COPD, CKD, recently diagnosed myeloma, vertebral fractures on velcade/cytoxan/dexamethasone/zometa. Admitted with severe constipation and hyponatremia. Was on golytely for constipation and hydration for hyponatremia Developed acute resp. distress and high BPs evening of 11/25 ? flash pulmonary edema + pneumonia CXR-airspace opacities was diuresed and placed on antibiotics + troponins-- received ceftazidime for UTI and serratia in sputum and vancomycin for MRSA in sputum Myeloma--on velcade/cytoxan/dex --last dose 11/18 On zometa--11/18 treatment on hold due to critical illness neuropathy light chains decreasing slowly s/p rt to lspine and left acetabular fx will continue dexamethasone weekly will change to revlimid /dexamethasone as outpatient given critical illness neuropathy Renal impairment improved encephalopathy-- ? multifactorial--toxic metabolic MRI negative improving slowly critical illness neuropathy discused with daughters d/c planning ongoing
[2018-12-24] MEDS: INSULIN (LEVEMIR) 100 UNITS/ML UNITS SQ SCH (21:24)
[2018-12-24] MEDS: ATORVASTATIN CA 80 MG TABLET (FP) PO SCH (21:24)
[2018-12-25] MEDS: NYSTATIN 500,000 UNITS/5 ML SUSPENSION PO SCH ×4 (00:17→18:06)
[2018-12-25] MEDS: METHADONE HCL 40 MG DISPERSABLE TABLET PO SCH (05:17)
[2018-12-25] MEDS: ACETAMINOPHEN 500 MG TABLET (FP) PO PRN (05:18)
[2018-12-25] MEDS: INSULIN SLIDING SCALE (NOVOLOG) 1 VIAL SQ SCH ×3 (06:32→18:06)
[2018-12-25 08:24] LABS: ALBUMIN 2.4 g/dl (3.4-5.0); ALK PHOS 99 U/L (45-117); ANION GAP 4 MMOL/L (8-16); BILIRUBIN,TOTAL 0.2 mg/dL (0.2-1); BLOOD UREA NITROGEN 23 mg/dL (7-18); CALCIUM 7.6 mg/dL (8.5-10.1); CHLORIDE 108 mmol/L (98-107); CO2 25 mmol/L (21-32); CREATININE 1.4 mg/dL (0.55-1.3); GLUCOSE,RANDOM 107 mg/dL (74-106); POTASSIUM 4.4 mmol/L (3.5-5.1); SGOT/AST 24 U/L (15-37); SGPT/ALT 30 U/L (13-61); SODIUM 137 mmol/L (136-145); TOT PROT 5.7 g/dl (6.4-8.2)
[2018-12-25] MEDS: TAMSULOSIN HCL 0.4 MG CAP PO SCH (08:56)
[2018-12-25] MEDS ORDERED: PT OWN MED DRAWER 7, Y5N ONE ×2 (09:52→20:56)
[2018-12-25] MEDS: CALCIUM 500MG/VIT-D 200 UNITS COMBO TABLET (FP) PO SCH (09:56)
[2018-12-25] MEDS: HEPARIN NA (PORCINE) 5,000 UNITS/ML 1ML VIAL SQ SCH ×2 (09:56→21:07)
[2018-12-25] MEDS: ASPIRIN 81 MG CHEWABLE TABLETS PO SCH (09:56)
[2018-12-25] MEDS: BUSPIRONE HCL 10 MG, BUSPIRONE HCL 5 MG PO SCH ×2 (09:56→21:05)
[2018-12-25] MEDS: PANTOPRAZOLE SOD 40 MG SUSPENSION PACKET PO SCH (09:56)
[2018-12-25] MEDS: METOPROLOL TARTRATE 25 MG TABLET (FP) PO SCH ×2 (09:56→21:06)
[2018-12-25] MEDS: valACYclovir HCL 500 MG TABLET (FP) PO SCH (09:56)
[2018-12-25] MEDS: TIOTROPIUM BROMIDE 2.5 MCG (SPIRIVA) RESPIMAT INHALER IH SCH (09:57)
[2018-12-25] MEDS: POLYETHYLENE GLYCOL 3350 119 GM BTL PO SCH ×2 (09:58→21:06)
--- NOTE | 2018-12-25 11:27 | PN ---
Progress Note (short form) - Note Progress Note: Denies any complaints Still on Puree diet as he doesn't have his dentures Vital Signs Period Temp Pulse Resp BP Sys/Andre Pulse Ox Last 24 Hr 97.3 F-98.2 F 74-91 16-20 125-157/71-91 100 PE: AOx3 HEENT: EoMI Neck: Supple, No JVD Lungs: CTA CVS: S1S2 Abd: Benign Ext: No edema CMP Sodium 137 mmol/L (136-145) 12/25/18 06:30 Potassium 4.4 mmol/L (3.5-5.1) 12/25/18 06:30 Chloride 108 mmol/L (98-107) H 12/25/18 06:30 Carbon Dioxide 25 mmol/L (21-32) 12/25/18 06:30 Anion Gap 4 MMOL/L (8-16) L 12/25/18 06:30 BUN 23 mg/dL (7-18) H 12/25/18 06:30 Creatinine 1.4 mg/dL (0.55-1.3) H 12/25/18 06:30 Creat Clearance w eGFR 50.86 (>60) 12/25/18 06:30 POC Glucometer 122 UNITS (80-120) 12/25/18 05:19 Random Glucose 107 mg/dL (74-106) H 12/25/18 06:30 Hemoglobin A1c % 7.7 % (4.2-6.3) H 11/28/18 05:15 Serum Osmolality 271 mosm/kg (278-305) L 11/20/18 21:00 Lactic Acid 0.9 mmol/L (0.4-2.0) 11/20/18 08:30 Uric Acid 4.9 mg/dL (2.6-7.2) 11/26/18 05:30 Calcium 7.6 mg/dL (8.5-10.1) L 12/25/18 06:30 Phosphorus 3.6 mg/dL (2.5-4.9) 12/09/18 06:00 Magnesium 2.2 mg/dL (1.8-2.4) 12/10/18 05:15 Iron 28 ug/dL (38-169) L 11/28/18 05:15 TIBC 245 ug/dL (250-450) L 11/28/18 05:15 Iron Saturation 11 % (15-55) L 11/28/18 05:15 Ferritin 184.3 ng/ml (8-388) 11/28/18 05:15 Total Bilirubin 0.2 mg/dL (0.2-1) 12/25/18 06:30 Direct Bilirubin 0.1 mg/dL (0.0-0.2) 12/17/18 06:15 AST 24 U/L (15-37) 12/25/18 06:30 ALT 30 U/L (13-61) 12/25/18 06:30 Alkaline Phosphatase 99 U/L (45-117) 12/25/18 06:30 LD Total 297 U/L (87-246) H 11/26/18 05:30 Ammonia 17.10 umol/L (11-32) 12/17/18 05:50 Creatine Kinase 180 U/L (26-308) 11/30/18 16:00 Creatine Kinase Index 5.6 % (0.0-5.0) H 11/30/18 16:00 CK-MB (CK-2) 10.2 ng/mL (0.5-3.6) H 11/30/18 16:00 CK-BB (CK-1) 0 % TOTAL (0) 11/25/18 20:00 CK/CKMB % Calc 0 % (0-3) 11/25/18 20:00 Troponin I 0.07 ng/ml (0.00-0.05) H 12/17/18 05:50 Total Protein 5.7 g/dl (6.4-8.2) L 12/25/18 06:30 Albumin 2.4 g/dl (3.4-5.0) L 12/25/18 06:30 Lipase 242 U/L (73-393) 11/20/18 08:30 Tumor Marker AFP 5.0 ng/ml (0.0-8.3) 12/17/18 05:50 Vitamin B12 1332 pg/ml (193-986) H 12/17/18 05:50 Serum Folate 16 ng/mL (3.1-17.5) 12/17/18 05:50 Free T4 1.04 ng/dl (0.76-1.16) 11/28/18 05:15 TSH 2.41 uIU/ml (0.358-3.74) D 12/17/18 05:50 Current Medications Generic Name Dose Route Start Last Admin Trade Name Imani PRN Reason Stop Dose Admin Acetaminophen 500 mg 12/14/18 20:46 12/25/18 05:18 Tylenol - PO 500 mg Q6H PRN Administration HEADACHE Artificial Tears 1 applic 12/10/18 22:05 12/10/18 22:49 Lacri-Lube Eye Ointment - OD 1 applic HS PRN Administration DRY EYES Aspirin 81 mg 12/22/18 14:52 12/25/18 09:56 Asa - PO 81 mg DAILY YAKOV Administration Atorvastatin Calcium 80 mg 12/22/18 14:53 12/24/18 21:24 Lipitor - PO 80 mg HS YAKOV Administration Buspirone HCl 10 mg/ Buspirone 15 mg 12/22/18 14:53 12/25/18 09:56 HCl 5 mg PO 15 mg BID YAKOV Administration Calcium Carbonate/Cholecalciferol 2 tab 12/22/18 14:53 12/25/18 09:56 Os-Kyler 500+D - PO 2 tab DAILY [facility] Administration Heparin Sodium (Porcine) 5,000 unit 12/21/18 22:00 12/25/18 09:56 Heparin - SQ 5,000 unit BID [facility] Administration Insulin Aspart 1 vial 12/14/18 17:00 12/25/18 06:32 Novolog Vial Sliding Scale - SQ Not Given TIDAC [facility] Protocol Insulin Detemir 20 units 12/08/18 22:00 12/24/18 21:24 Levemir Vial SQ 20 units HS [facility] Administration Lactic Acid 1 applic 12/16/18 21:22 12/19/18 09:20 Lac-Hydrin 12 TP 1 applic BID PRN Administration xerosis Methadone HCl 20 mg 12/22/18 14:53 12/25/18 05:17 Dolophine - PO 20 mg DAILY@0600 [facility] Administration Methadone HCl 10 mg 12/26/18 06:00 Dolophine - PO DAILY@0600 [facility] Methylnaltrexone [place] 8 mg 12/18/18 10:00 12/24/18 11:32 Relistor - SQ 8 mg Q2D@1000 [facility] Administration Metoprolol Tartrate 25 mg 12/08/18 22:00 12/25/18 09:56 Lopressor - PO 25 mg BID YAKOV Administration Nystatin 500,000 units 12/20/18 00:00 12/25/18 05:18 Nystatin Oral Suspension - PO 500,000 units Q6HPO YAKOV Administration Pantoprazole Sodium 40 mg 12/22/18 14:53 12/25/18 09:56 Protonix Packets For Oral Suspension - PO 40 mg DAILY YAKOV Administration Polyethylene Glycol 17 gm 12/15/18 22:00 12/25/18 09:58 Miralax (For Daily Use) - PO 17 gm BID YAKOV Administration Tamsulosin HCl 0.8 mg 12/21/18 08:30 12/25/18 08:56 Flomax - PO 0.8 mg DAILY@0830 YAKOV Administration Tiotropium [place] 2 puff 12/09/18 10:00 12/25/18 09:57 Spiriva Respimat IH 2 puff DAILY YAKOV Administration Valacyclovir HCl 500 mg 12/22/18 14:53 12/25/18 09:56 Valtrex - PO 500 mg DAILY YAKOV Administration AP: T2DM: Insulin requiring A1c on 07.21.18 was 7.3 and 7.7 on 11.28.18 Multiple myeloma- not in remission Bone mets Acute NSTEMI Acute hypoxic respiratory failure:improving Sepsis improved Anemia DARIO- improved Confusion - improving BGM QACHS Continue Levemir 20 units daily NOvolog SS coverage premeals Will try with low dose Prandin premeals Add Prandin 0.5mg BID premeals. Will change dose as necessary depending on the blood sugar response Will f/u
--- NOTE | 2018-12-25 13:13 | PN ---
Progress Note (short form) - Note Progress Note: PULMONARY VSS/Afebrile Resting in NAD. Overall continues to improve. No cough or wheezing. labs/meds/notes/images reviewed Anicteric rsr Lung: decreased breath sounds at the bases Abd: soft, nontender Ext: no edema A/P Acute Hypoxic and Hypercapneic Respiratory Failure improved Acute Pulmonary Edema resolved Critical Illness Polyneuropathy MM Acute NSTEMI Resolved Pneumonia UTI Acute on Chronic Renal Failure HTN DM COPD Methadone Maintenance - Completed ABX - ASA - inhaled bronchodilators - aspiration precautions - rehab/PT - VTE prophylaxis - Taper Methadone - D/C planning R CINDY SMITH
--- NOTE | 2018-12-25 16:06 | PN ---
Progress Note, Physician History of Present Illness: Pt seen and examined at bedside. He is awake and alert. He denies shortness of breath. - Current Medication List Current Medications: Active Medications Acetaminophen (Tylenol -) 500 mg PO Q6H PRN PRN Reason: HEADACHE Last Admin: 12/25/18 05:18 Dose: 500 mg Artificial Tears (Lacri-Lube Eye Ointment -) 1 applic OD HS PRN PRN Reason: DRY EYES Last Admin: 12/10/18 22:49 Dose: 1 applic Aspirin (Asa -) 81 mg PO DAILY [facility] Last Admin: 12/25/18 09:56 Dose: 81 mg Atorvastatin Calcium (Lipitor -) 80 mg PO HS [facility] Last Admin: 12/24/18 21:24 Dose: 80 mg Buspirone HCl 10 mg/ Buspirone (HCl 5 mg) 15 mg PO BID [facility] Last Admin: 12/25/18 09:56 Dose: 15 mg Calcium Carbonate/Cholecalciferol (Os-[place] 500+D -) 2 tab PO DAILY [facility] Last Admin: 12/25/18 09:56 Dose: 2 tab Heparin Sodium (Porcine) (Heparin -) 5,000 unit SQ BID [facility] Last Admin: 12/25/18 09:56 Dose: 5,000 unit Insulin Aspart (Novolog Vial Sliding Scale -) 1 vial SQ TIDAC [facility]; Protocol Last Admin: 12/25/18 11:59 Dose: Not Given Insulin Detemir (Levemir Vial) 20 units SQ HS [facility] Last Admin: 12/24/18 21:24 Dose: 20 units Lactic Acid (Lac-Hydrin 12) 1 applic TP BID PRN PRN Reason: xerosis Last Admin: 12/19/18 09:20 Dose: 1 applic Methadone HCl (Dolophine -) 20 mg PO DAILY@0600 [facility] Last Admin: 12/25/18 05:17 Dose: 20 mg Methadone HCl (Dolophine -) 10 mg PO DAILY@0600 [facility] Methylnaltrexone [place] (Relistor -) 8 mg SQ Q2D@1000 [facility] Last Admin: 12/24/18 11:32 Dose: 8 mg Metoprolol Tartrate (Lopressor -) 25 mg PO BID [facility] Last Admin: 12/25/18 09:56 Dose: 25 mg Nystatin (Nystatin Oral Suspension -) 500,000 units PO Q6HPO [facility] Last Admin: 12/25/18 12:00 Dose: 500,000 units Pantoprazole Sodium (Protonix Packets For Oral Suspension -) 40 mg PO DAILY [facility] Last Admin: 12/25/18 09:56 Dose: 40 mg Polyethylene Glycol (Miralax (For Daily Use) -) 17 gm PO BID [facility] Last Admin: 12/25/18 09:58 Dose: 17 gm Repaglinide (Prandin -) 0.5 mg PO BID@0700,1700 [facility] Tamsulosin HCl (Flomax -) 0.8 mg PO DAILY@0830 [facility] Last Admin: 12/25/18 08:56 Dose: 0.8 mg Tiotropium [place] (Spiriva Respimat) 2 puff IH DAILY [facility] Last Admin: 12/25/18 09:57 Dose: 2 puff Valacyclovir HCl (Valtrex -) 500 mg PO DAILY [facility] Last Admin: 12/25/18 09:56 Dose: 500 mg - Objective Vital Signs: Vital Signs Temperature 97.9 F 12/25/18 14:42 Pulse Rate 78 12/25/18 14:42 Respiratory Rate 18 12/25/18 14:42 Blood Pressure 108/53 L 12/25/18 14:42 O2 Sat by Pulse Oximetry (%) 100 12/24/18 21:00 Constitutional: Yes: Calm Eyes: Yes: Conjunctiva Clear HENT: Yes: Atraumatic Cardiovascular: Yes: S1, S2 Respiratory: Yes: CTA Bilaterally Gastrointestinal: Yes: Soft Genitourinary: Yes: Incontinence Musculoskeletal: Yes: Muscle Weakness Edema: No Neurological: Yes: Oriented Psychiatric: Yes: Oriented Labs: CBC, BMP 12/24/18 09:00 12/25/18 06:30 INR, PTT INR 1.49 (0.83-1.09) H 12/10/18 05:15 Fibrinogen > 500.0 mg/dL (238-498) H 11/25/18 20:00 Problem List - Problems (1) CKD (chronic kidney disease) Code(s): N18.9 - CHRONIC KIDNEY DISEASE, UNSPECIFIED (2) Constipation Code(s): K59.00 - CONSTIPATION, UNSPECIFIED Qualifiers: Constipation type: unspecified constipation type Qualified Code(s): K59.00 - Constipation, unspecified (3) Hyponatremia Code(s): E87.1 - HYPO-OSMOLALITY AND HYPONATREMIA Assessment/Plan Current Medications Generic Name Dose Route Start Last Admin Trade Name Freq PRN Reason Stop Dose Admin Acetaminophen 500 mg 12/14/18 20:46 12/25/18 05:18 Tylenol - PO 500 mg Q6H PRN Administration HEADACHE Artificial Tears 1 applic 12/10/18 22:05 12/10/18 22:49 Lacri-Lube Eye Ointment - OD 1 applic HS PRN Administration DRY EYES Aspirin 81 mg 12/22/18 14:52 12/25/18 09:56 Asa - PO 81 mg DAILY [facility]AK[facility] Administration Atorvastatin Calcium 80 mg 12/22/18 14:53 12/24/18 21:24 Lipitor - PO 80 mg HS [facility]AKOV Administration Buspirone HCl 10 mg/ Buspirone 15 mg 12/22/18 14:53 12/25/18 09:56 HCl 5 mg PO 15 mg BID YAKOV Administration Calcium Carbonate/Cholecalciferol 2 tab 12/22/18 14:53 12/25/18 09:56 Os-[place]yler 500+D - PO 2 tab DAILY [facility] Administration Heparin Sodium (Porcine) 5,000 unit 12/21/18 22:00 12/25/18 09:56 Heparin - SQ 5,000 unit BID [facility] Administration Insulin Aspart 1 vial 12/14/18 17:00 12/25/18 11:59 Novolog Vial Sliding Scale - SQ Not Given TIDAC [facility] Protocol Insulin Detemir 20 units 12/08/18 22:00 12/24/18 21:24 Levemir Vial SQ 20 units HS [facility] Administration Lactic Acid 1 applic 12/16/18 21:22 12/19/18 09:20 Lac-Hydrin 12 TP 1 applic BID PRN Administration xerosis Methadone HCl 20 mg 12/22/18 14:53 12/25/18 05:17 Dolophine - PO 20 mg DAILY@0600 [facility] Administration Methadone HCl 10 mg 12/26/18 06:00 Dolophine - PO DAILY@0600 [facility] Methylnaltrexone [place] 8 mg 12/18/18 10:00 12/24/18 11:32 Relistor - SQ 8 mg Q2D@1000 [facility] Administration Metoprolol Tartrate 25 mg 12/08/18 22:00 12/25/18 09:56 Lopressor - PO 25 mg BID [facility]AK[facility] Administration Nystatin 500,000 units 12/20/18 00:00 12/25/18 12:00 Nystatin Oral Suspension - PO 500,000 units Q6HPO [facility] Administration Pantoprazole Sodium 40 mg 12/22/18 14:53 12/25/18 09:56 Protonix Packets For Oral Suspension - PO 40 mg DAILY [facility] Administration Polyethylene Glycol 17 gm 12/15/18 22:00 12/25/18 09:58 Miralax (For Daily Use) - PO 17 gm BID [facility] Administration Repaglinide 0.5 mg 12/25/18 17:00 Prandin - PO BID@0700,1700 [facility] Tamsulosin HCl 0.8 mg 12/21/18 08:30 12/25/18 08:56 Flomax - PO 0.8 mg DAILY@0830 [facility] Administration Tiotropium [place] 2 puff 12/09/18 10:00 12/25/18 09:57 Spiriva Respimat IH 2 puff DAILY [facility] Administration Valacyclovir HCl 500 mg 12/22/18 14:53 12/25/18 09:56 Valtrex - PO 500 mg DAILY [facility]AK[facility] Administration Impression 1. hyponatremia 2. CKD 3. nausea and vomiting 4. htn 5. DM 6. 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 multiple myeloma 9. anemia 10. proteinuria 11. hyperkalemia 12. resp failure 13. volume overload 14. hypernatremia 15. hyperkalemia Plan - renal function stable - pt tolerating diet - avoid nsaids - cont to monitor volume status - lasix of he get overloaded Dr Cates
[2018-12-25] MEDS: REPAGLINIDE 0.5 MG TABLET (FP) PO SCH (18:07)
--- NOTE | 2018-12-25 18:35 | PN ---
Progress Note, Physician Chief Complaint: Acute respiratory failure [place] History of Present Illness: Previous notes and events reviewed awake and alert NAD patient is pending discharge to SNF denies abdominal pain, difficulty breathing, chest pain - Current Medication List Current Medications: Active Medications Acetaminophen (Tylenol -) 500 mg PO Q6H PRN PRN Reason: HEADACHE Last Admin: 12/25/18 05:18 Dose: 500 mg Artificial Tears (Lacri-Lube Eye Ointment -) 1 applic OD HS PRN PRN Reason: DRY EYES Last Admin: 12/10/18 22:49 Dose: 1 applic Aspirin (Asa -) 81 mg PO DAILY [facility] Last Admin: 12/25/18 09:56 Dose: 81 mg Atorvastatin Calcium (Lipitor -) 80 mg PO HS [facility] Last Admin: 12/24/18 21:24 Dose: 80 mg Buspirone HCl 10 mg/ Buspirone (HCl 5 mg) 15 mg PO BID [facility] Last Admin: 12/25/18 09:56 Dose: 15 mg Calcium Carbonate/Cholecalciferol (Os-Kyler 500+D -) 2 tab PO DAILY [facility] Last Admin: 12/25/18 09:56 Dose: 2 tab Heparin Sodium (Porcine) (Heparin -) 5,000 unit SQ BID [facility] Last Admin: 12/25/18 09:56 Dose: 5,000 unit Insulin Aspart (Novolog Vial Sliding Scale -) 1 vial SQ TIDAC [facility]; Protocol Last Admin: 12/25/18 18:06 Dose: Not Given Insulin Detemir (Levemir Vial) 20 units SQ [facility] Last Admin: 12/24/18 21:24 Dose: 20 units Lactic Acid (Lac-Hydrin 12) 1 applic TP BID PRN PRN Reason: xerosis Last Admin: 12/19/18 09:20 Dose: 1 applic Methadone HCl (Dolophine -) 20 mg PO DAILY@0600 [facility] Last Admin: 12/25/18 05:17 Dose: 20 mg Methadone HCl (Dolophine -) 10 mg PO DAILY@0600 [facility] Methylnaltrexone Nancy (Relistor -) 8 mg SQ Q2D@1000 [facility] Last Admin: 12/24/18 11:32 Dose: 8 mg Metoprolol Tartrate (Lopressor -) 25 mg PO BID [facility] Last Admin: 12/25/18 09:56 Dose: 25 mg Nystatin (Nystatin Oral Suspension -) 500,000 units PO Q6HPO [facility] Last Admin: 12/25/18 18:06 Dose: 500,000 units Pantoprazole Sodium (Protonix Packets For Oral Suspension -) 40 mg PO DAILY [facility] Last Admin: 12/25/18 09:56 Dose: 40 mg Polyethylene Glycol (Miralax (For Daily Use) -) 17 gm PO BID [facility] Last Admin: 12/25/18 09:58 Dose: 17 gm Repaglinide (Prandin -) 0.5 mg PO BID@0700,1700 [facility] Last Admin: 12/25/18 18:07 Dose: 0.5 mg Tamsulosin HCl (Flomax -) 0.8 mg PO DAILY@0830 [facility] Last Admin: 12/25/18 08:56 Dose: 0.8 mg Tiotropium Nancy (Spiriva Respimat) 2 puff IH DAILY [facility] Last Admin: 12/25/18 09:57 Dose: 2 puff Valacyclovir HCl (Valtrex -) 500 mg PO DAILY [facility] Last Admin: 12/25/18 09:56 Dose: 500 mg - Objective Vital Signs: Vital Signs Temperature 97.9 F 12/25/18 14:42 Pulse Rate 78 12/25/18 14:42 Respiratory Rate 18 12/25/18 14:42 Blood Pressure 108/53 L 12/25/18 14:42 O2 Sat by Pulse Oximetry (%) 100 12/24/18 21:00 Constitutional: Yes: No Distress, Calm Eyes: Yes: Conjunctiva Clear HENT: Yes: Atraumatic Cardiovascular: Yes: Regular Rate and Rhythm Respiratory: Yes: Regular, Diminished Gastrointestinal: Yes: Normal Bowel Sounds, Soft Genitourinary: Yes: Incontinence Musculoskeletal: Yes: Muscle Weakness Extremities: Yes: WNL Neurological: Yes: Alert, Oriented Psychiatric: Yes: Alert, Oriented Labs: CBC, BMP 12/24/18 09:00 12/25/18 06:30 INR, PTT INR 1.49 (0.83-1.09) H 12/10/18 05:15 Fibrinogen > 500.0 mg/dL (238-498) H 11/25/18 20:00 Problem List - Problems (1) CKD (chronic kidney disease) Assessment/Plan: -renal on board -BUN/Cr 26/10.4 -will continue to monitor trend Code(s): N18.9 - CHRONIC KIDNEY DISEASE, UNSPECIFIED (2) Diabetes Assessment/Plan: -BGM ACHS -HgA1c 7.7% -ISS Code(s): E11.9 - TYPE 2 DIABETES MELLITUS WITHOUT COMPLICATIONS Qualifiers: Diabetes mellitus type: type 2 (3) Respiratory failure Assessment/Plan: -O2 via NC prn for SOB -maintain SpO2 >90% -pulm on board -bronchodilator Code(s): J96.90 - RESPIRATORY FAILURE, UNSP, UNSP W HYPOXIA OR HYPERCAPNIA (4) Hyponatremia Assessment/Plan: -resolved Code(s): E87.1 - HYPO-OSMOLALITY AND HYPONATREMIA (5) Multiple myeloma Assessment/Plan: -heme on board Code(s): C90.00 - MULTIPLE MYELOMA NOT HAVING ACHIEVED REMISSION (6) OB + stool Assessment/Plan: -GI on board -continue pantoprazole Code(s): R19.5 - OTHER FECAL ABNORMALITIES Assessment/Plan see problem list dvt ppx
[2018-12-25] MEDS: ATORVASTATIN CA 80 MG TABLET (FP) PO SCH (21:05)
[2018-12-25] MEDS: INSULIN (LEVEMIR) 100 UNITS/ML UNITS SQ SCH (21:07)
[2018-12-26] MEDS: NYSTATIN 500,000 UNITS/5 ML SUSPENSION PO SCH ×3 (00:26→11:34)
[2018-12-26] MEDS: ACETAMINOPHEN 500 MG TABLET (FP) PO PRN (04:10)
[2018-12-26] MEDS ORDERED: METHADONE HCL 5 MG TABLET PO SCH (06:00)
[2018-12-26] MEDS ORDERED: PT OWN MED DRAWER 7, Y5N ONE ×2 (06:11→09:43)
[2018-12-26] MEDS: METHADONE HCL 40 MG DISPERSABLE TABLET PO SCH (06:28)
[2018-12-26] MEDS: INSULIN SLIDING SCALE (NOVOLOG) 1 VIAL SQ SCH ×2 (06:29→11:35)
[2018-12-26] MEDS: REPAGLINIDE 0.5 MG TABLET (FP) PO SCH (06:29)
--- NOTE | 2018-12-26 09:42 | DS ---
Physical Examination Vital Signs: Vital Signs Temperature 98.1 F 12/26/18 06:00 Pulse Rate 88 12/26/18 06:00 Respiratory Rate 18 12/26/18 06:00 Blood Pressure 139/79 12/26/18 06:00 O2 Sat by Pulse Oximetry (%) 93 L 12/25/18 21:00 Labs: CBC, BMP 12/24/18 09:00 12/25/18 06:30 Discharge Summary Reason For Visit: HIGH BP Current Active Problems Abdominal distension (Acute) Abnormal LFTs (liver function tests) (Acute) Acute hypoxemic respiratory failure (Acute) Anemia (Acute) CKD (chronic kidney disease) (Acute) Diabetes (Acute) Diabetic gastroparesis (Acute) Diabetic neuropathy (Acute) Diabetic retinopathy (Acute) Edema (Acute) Elevated liver enzymes (Acute) History of cocaine abuse (Acute) History of heroin abuse (Acute) History of substance abuse (Acute) Hyperkalemia (Acute) Hypernatremia (Acute) Hypocalcemia (Acute) Hyponatremia (Acute) Ileus (Acute) Intractable abdominal pain (Acute) Multiple myeloma (Acute) Narcotic dependence (Acute) Nausea and vomiting (Acute) OB + stool (Acute) Respiratory failure (Acute) Respiratory failure (Acute) Troponin I above reference range (Acute) UTI (urinary tract infection) (Acute) Urinary retention (Acute) Vertebral compression fracture (Acute) Hospital Course: - Problems (1) CKD (chronic kidney disease) Assessment/Plan: -renal on board -BUN/Cr 26/10.4 -will continue to monitor trend -DIANA [facility] and monitor Code(s): N18.9 - CHRONIC KIDNEY DISEASE, UNSPECIFIED (2) Diabetes Assessment/Plan: -BGM ACHS -HgA1c 7.7% -ISS Code(s): E11.9 - TYPE 2 DIABETES MELLITUS WITHOUT COMPLICATIONS Qualifiers: Diabetes mellitus type: type 2 (3) Respiratory failure Assessment/Plan: -O2 via NC prn for SOB -maintain SpO2 >90% -pulm on board -bronchodilator Code(s): J96.90 - RESPIRATORY FAILURE, UNSP, UNSP W HYPOXIA OR HYPERCAPNIA (4) Hyponatremia Assessment/Plan: -resolved Code(s): E87.1 - HYPO-OSMOLALITY AND HYPONATREMIA (5) Multiple myeloma Assessment/Plan: -heme on board Code(s): C90.00 - MULTIPLE MYELOMA NOT HAVING ACHIEVED REMISSION (6) OB + stool Assessment/Plan: -GI on board -continue pantoprazole Code(s): R19.5 - OTHER FECAL ABNORMALITIES Condition: Stable - Instructions Diet, Activity, Other Instructions: -Follow up with Hematology, Nephrology, GI and endocrinology outpatient within 4 weeks -DC sykes and monitor uo Referrals: Martin Medrano MD [Primary Care Provider] - Gino Up MD [Staff Physician] - Richar Petty MD [Staff Physician] - Hayder Cates MD [Staff Physician] - Vijay Washington MD [Staff Physician] - Disposition: [facility] - Home Medications Comprehensive Discharge Medication List: Ambulatory Orders Albuterol Sulfate Inhaler - [Ventolin HFA Inhaler -] 2 puff PO QID PRN 06/07/15 Aspirin [Aspirin EC] 81 mg PO DAILY 06/07/15 Enalapril Maleate [Vasotec -] 20 mg PO DAILY 06/07/15 Insulin Glargine,Hum.rec.anlog [Lantus (10mL VIAL) -] 40 unit SQ HS 06/07/15 Salmeterol/Fluticasone [Advair 100Mcg/50Mcg -] 1 puff PO BID 06/07/15 Sertraline HCl 50 mg PO DAILY 06/07/15 metFORMIN HCL [Metformin HCl] 1,000 mg PO BID 06/07/15 Acetaminophen [Tylenol .Regular Strength -] 650 mg PO Q6H PRN #0 tablet Methadone [Dolophine -] 70 mg PO DAILY 01/30/16 Buspirone HCl 15 mg PO BID 07/22/18 Metoprolol Tartrate [Lopressor -] 25 mg PO BID #60 tablet 07/27/18 Nifedipine ER [Procardia XL -] 30 mg PO DAILY #30 tab.er.24 07/27/18 Acetaminophen [Tylenol .Extra-Strength -] 500 mg PO Q6H PRN tablet 12/21/18 Ammonium Lactate Lotion [Lac-Hydrin 12] 1 applic TP BID PRN bottle 12/21/18 Aspirin [ASA -] 81 mg PO DAILY tab.chew 12/21/18 Atorvastatin Ca [Lipitor] 80 mg PO HS tablet 12/21/18 Buspirone HCl [Buspar -] 15 mg NR BID tablet 12/21/18 Calcium 500Mg/Vit-D 200 Units [Os-Kyler 500+D -] 2 tab PO DAILY tab 12/21/18 Heparin - 5,000 unit SQ BID vial 12/21/18 Insulin Sliding Scale [Novolog Vial Sliding Scale -] 1 vial SQ TIDAC units Methadone HCl 20 mg PO DAILY #60 tablet MDD 2 12/21/18 Metoprolol Tartrate [Lopressor -] 25 mg PO BID tablet 12/21/18 Nystatin Oral Suspension - [Nystatin Oral Susp 744275 Units/5 ML -] 500,000 units PO Q6HPO cup 12/21/18 Ocular Lubricant Ophth Oint [Lacri-Lube S.o.p -] 1 applic OD HS PRN tube Pantoprazole Suspension [Protonix Packets For Oral Suspension -] 40 mg PO DAILY packet 12/21/18 Polyethylene Glycol 3350 [Miralax 119 gm Btl -] 17 gm PO BID bottle 12/21/18 Tamsulosin HCl [Flomax -] 0.8 mg PO DAILY@0830 cap.er.24h 12/21/18 Tiotropium [place] [Spiriva Respimat] 2 puff IH DAILY inhaler 12/21/18 Valacyclovir HCl [Valtrex -] 500 mg PO DAILY tablet 12/21/18
[2018-12-26] MEDS: TAMSULOSIN HCL 0.4 MG CAP PO SCH (09:45)
[2018-12-26] MEDS: Methylnaltrexone Bromide 12 MG/0.6 ML KIT SQ SCH (09:45)
[2018-12-26] MEDS: METOPROLOL TARTRATE 25 MG TABLET (FP) PO SCH (09:46)
[2018-12-26] MEDS: valACYclovir HCL 500 MG TABLET (FP) PO SCH (09:46)
[2018-12-26] MEDS: PANTOPRAZOLE SOD 40 MG SUSPENSION PACKET PO SCH (09:46)
[2018-12-26] MEDS: CALCIUM 500MG/VIT-D 200 UNITS COMBO TABLET (FP) PO SCH (09:46)
[2018-12-26] MEDS: ASPIRIN 81 MG CHEWABLE TABLETS PO SCH (09:46)
[2018-12-26] MEDS: HEPARIN NA (PORCINE) 5,000 UNITS/ML 1ML VIAL SQ SCH (09:47)
[2018-12-26] MEDS: TIOTROPIUM BROMIDE 2.5 MCG (SPIRIVA) RESPIMAT INHALER IH SCH (09:48)
[2018-12-26] MEDS: POLYETHYLENE GLYCOL 3350 119 GM BTL PO SCH (09:48)
[2018-12-26] MEDS ORDERED: busPIRone HCL 5 MG TABLET PO SCH (10:00)
--- NOTE | 2018-12-26 12:51 | PN ---
Progress Note (short form) - Note Progress Note: PULMONARY Sleeping but arousable. Denies shortness of breath. Vital Signs Period Temp Pulse Resp BP Sys/Andre Pulse Ox Last 24 Hr 97.7 F-98.9 F 78-104 18-20 108-146/53-81 93 Gen: NAD at rest Heart: RRR Lung: decreased breath sounds at the bases Abd: soft, nontender Ext: no edema CBC, BMP 12/24/18 09:00 12/25/18 06:30 Active Medications Acetaminophen (Tylenol -) 500 mg PO Q6H PRN PRN Reason: HEADACHE Last Admin: 12/26/18 04:10 Dose: 500 mg Artificial Tears (Lacri-Lube Eye Ointment -) 1 applic OD HS PRN PRN Reason: DRY EYES Last Admin: 12/10/18 22:49 Dose: 1 applic Aspirin (Asa -) 81 mg PO DAILY [facility] Last Admin: 12/26/18 09:46 Dose: 81 mg Atorvastatin Calcium (Lipitor -) 80 mg PO HS [facility] Last Admin: 12/25/18 21:05 Dose: 80 mg Buspirone HCl (Buspar -) 15 mg PO BID [facility] Last Admin: 12/26/18 09:47 Dose: 15 mg Calcium Carbonate/Cholecalciferol (Os-Kyler 500+D -) 2 tab PO DAILY [facility] Last Admin: 12/26/18 09:46 Dose: 2 tab Heparin Sodium (Porcine) (Heparin -) 5,000 unit SQ BID [facility] Last Admin: 12/26/18 09:47 Dose: 5,000 unit Insulin Aspart (Novolog Vial Sliding Scale -) 1 vial SQ TIDAC [facility]; Protocol Last Admin: 12/26/18 11:35 Dose: Not Given Insulin Detemir (Levemir Vial) 20 units SQ HS [facility] Last Admin: 12/25/18 21:07 Dose: 20 units Lactic Acid (Lac-Hydrin 12) 1 applic TP BID PRN PRN Reason: xerosis Last Admin: 12/19/18 09:20 Dose: 1 applic Methadone HCl (Dolophine -) 20 mg PO DAILY@0600 [facility] Last Admin: 12/26/18 06:28 Dose: Not Given Methadone HCl (Dolophine -) 10 mg PO DAILY@0600 [facility] Last Admin: 12/26/18 06:20 Dose: 10 mg Methylnaltrexone [place] (Relistor -) 8 mg SQ Q2D@1000 [facility] Last Admin: 12/26/18 09:45 Dose: 8 mg Metoprolol Tartrate (Lopressor -) 25 mg PO BID [facility] Last Admin: 12/26/18 09:46 Dose: 25 mg Nystatin (Nystatin Oral Suspension -) 500,000 units PO Q6HPO [facility] Last Admin: 12/26/18 11:34 Dose: 500,000 units Pantoprazole Sodium (Protonix Packets For Oral Suspension -) 40 mg PO DAILY [facility] Last Admin: 12/26/18 09:46 Dose: 40 mg Polyethylene Glycol (Miralax (For Daily Use) -) 17 gm PO BID [facility] Last Admin: 12/26/18 09:48 Dose: 17 gm Repaglinide (Prandin -) 0.5 mg PO BID@0700,1700 [facility] Last Admin: 12/26/18 06:29 Dose: Not Given Tamsulosin HCl (Flomax -) 0.8 mg PO DAILY@0830 [facility] Last Admin: 12/26/18 09:45 Dose: 0.8 mg Tiotropium [place] (Spiriva Respimat) 2 puff IH DAILY [facility] Last Admin: 12/26/18 09:48 Dose: 2 puff Valacyclovir HCl (Valtrex -) 500 mg PO DAILY [facility] Last Admin: 12/26/18 09:46 Dose: 500 mg A/P Acute Hypoxic and Hypercapneic Respiratory Failure improving Acute Pulmonary Edema resolving Acute NSTEMI r/o Pneumonia UTI Acute on Chronic Renal Failure HTN DM COPD Methadone Maintenance - completed antibiotics - lasix as needed - monitor urine output, creatinine - ASA - inhaled bronchodilators - aspiration precautions - rehab/PT - DVT prophylaxis - d/c planning in progress
--- NOTE | 2018-12-26 13:11 | PN ---
Progress Note, Physician History of Present Illness: Pt seen and examined at bedside. He is awake and alert. he denies shortness of breath. - Current Medication List Current Medications: Active Medications Acetaminophen (Tylenol -) 500 mg PO Q6H PRN PRN Reason: HEADACHE Last Admin: 12/26/18 04:10 Dose: 500 mg Artificial Tears (Lacri-Lube Eye Ointment -) 1 applic OD HS PRN PRN Reason: DRY EYES Last Admin: 12/10/18 22:49 Dose: 1 applic Aspirin (Asa -) 81 mg PO DAILY [facility] Last Admin: 12/26/18 09:46 Dose: 81 mg Atorvastatin Calcium (Lipitor -) 80 mg PO HS [facility] Last Admin: 12/25/18 21:05 Dose: 80 mg Buspirone HCl (Buspar -) 15 mg PO BID [facility] Last Admin: 12/26/18 09:47 Dose: 15 mg Calcium Carbonate/Cholecalciferol (Os-Kyler 500+D -) 2 tab PO DAILY [facility] Last Admin: 12/26/18 09:46 Dose: 2 tab Heparin Sodium (Porcine) (Heparin -) 5,000 unit SQ BID [facility] Last Admin: 12/26/18 09:47 Dose: 5,000 unit Insulin Aspart (Novolog Vial Sliding Scale -) 1 vial SQ TIDAC [facility]; Protocol Last Admin: 12/26/18 11:35 Dose: Not Given Insulin Detemir (Levemir Vial) 20 units SQ HS [facility] Last Admin: 12/25/18 21:07 Dose: 20 units Lactic Acid (Lac-Hydrin 12) 1 applic TP BID PRN PRN Reason: xerosis Last Admin: 12/19/18 09:20 Dose: 1 applic Methadone HCl (Dolophine -) 20 mg PO DAILY@0600 [facility] Last Admin: 12/26/18 06:28 Dose: Not Given Methadone HCl (Dolophine -) 10 mg PO DAILY@0600 [facility] Last Admin: 12/26/18 06:20 Dose: 10 mg Methylnaltrexone [place] (Relistor -) 8 mg SQ Q2D@1000 [facility] Last Admin: 12/26/18 09:45 Dose: 8 mg Metoprolol Tartrate (Lopressor -) 25 mg PO BID [facility] Last Admin: 12/26/18 09:46 Dose: 25 mg Nystatin (Nystatin Oral Suspension -) 500,000 units PO Q6HPO [facility] Last Admin: 12/26/18 11:34 Dose: 500,000 units Pantoprazole Sodium (Protonix Packets For Oral Suspension -) 40 mg PO DAILY [facility] Last Admin: 12/26/18 09:46 Dose: 40 mg Polyethylene Glycol (Miralax (For Daily Use) -) 17 gm PO BID [facility] Last Admin: 12/26/18 09:48 Dose: 17 gm Repaglinide (Prandin -) 0.5 mg PO BID@0700,1700 [facility] Last Admin: 12/26/18 06:29 Dose: Not Given Tamsulosin HCl (Flomax -) 0.8 mg PO DAILY@0830 [facility] Last Admin: 12/26/18 09:45 Dose: 0.8 mg Tiotropium [place] (Spiriva Respimat) 2 puff IH DAILY [facility] Last Admin: 12/26/18 09:48 Dose: 2 puff Valacyclovir HCl (Valtrex -) 500 mg PO DAILY [facility] Last Admin: 12/26/18 09:46 Dose: 500 mg - Objective Vital Signs: Vital Signs Temperature 97.7 F 12/26/18 09:59 Pulse Rate 104 H 12/26/18 09:59 Respiratory Rate 20 12/26/18 09:59 Blood Pressure 146/70 12/26/18 09:59 O2 Sat by Pulse Oximetry (%) 93 L 12/26/18 09:00 Constitutional: Yes: Calm Eyes: Yes: Conjunctiva Clear HENT: Yes: Atraumatic Neck: Yes: Supple Cardiovascular: Yes: S1, S2 Respiratory: Yes: CTA Bilaterally Gastrointestinal: Yes: Soft Genitourinary: Yes: WNL Musculoskeletal: Yes: WNL Edema: No Neurological: Yes: Oriented Psychiatric: Yes: Oriented Labs: CBC, BMP 12/24/18 09:00 12/25/18 06:30 INR, PTT INR 1.49 (0.83-1.09) H 12/10/18 05:15 Fibrinogen > 500.0 mg/dL (238-498) H 11/25/18 20:00 Problem List - Problems (1) CKD (chronic kidney disease) Code(s): N18.9 - CHRONIC KIDNEY DISEASE, UNSPECIFIED (2) Constipation Code(s): K59.00 - CONSTIPATION, UNSPECIFIED Qualifiers: Constipation type: unspecified constipation type Qualified Code(s): K59.00 - Constipation, unspecified (3) Hyponatremia Code(s): E87.1 - HYPO-OSMOLALITY AND HYPONATREMIA Assessment/Plan Current Medications Generic Name Dose Route Start Last Admin Trade Name Freq PRN Reason Stop Dose Admin Acetaminophen 500 mg 12/14/18 20:46 12/26/18 04:10 Tylenol - PO 500 mg Q6H PRN Administration HEADACHE Artificial Tears 1 applic 12/10/18 22:05 12/10/18 22:49 Lacri-Lube Eye Ointment - OD 1 applic HS PRN Administration DRY EYES Aspirin 81 mg 12/22/18 14:52 12/26/18 09:46 Asa - PO 81 mg DAILY [facility] Administration Atorvastatin Calcium 80 mg 12/22/18 14:53 12/25/18 21:05 Lipitor - PO 80 mg HS [facility] Administration Buspirone HCl 15 mg 12/26/18 10:00 12/26/18 09:47 Buspar - PO 15 mg BID [facility] Administration Calcium Carbonate/Cholecalciferol 2 tab 12/22/18 14:53 12/26/18 09:46 Os-Kyler 500+D - PO 2 tab DAILY [facility] Administration Heparin Sodium (Porcine) 5,000 unit 12/21/18 22:00 12/26/18 09:47 Heparin - SQ 5,000 unit BID [facility] Administration Insulin Aspart 1 vial 12/14/18 17:00 12/26/18 11:35 Novolog Vial Sliding Scale - SQ Not Given TIDAC [facility] Protocol Insulin Detemir 20 units 12/08/18 22:00 12/25/18 21:07 Levemir Vial SQ 20 units HS [facility] Administration Lactic Acid 1 applic 12/16/18 21:22 12/19/18 09:20 Lac-Hydrin 12 TP 1 applic BID PRN Administration xerosis Methadone HCl 20 mg 12/22/18 14:53 12/26/18 06:28 Dolophine - PO Not Given DAILY@0600 [facility] Methadone HCl 10 mg 12/26/18 06:00 12/26/18 06:20 Dolophine - PO 10 mg DAILY@0600 [facility] Administration Methylnaltrexone [place] 8 mg 12/18/18 10:00 12/26/18 09:45 Relistor - SQ 8 mg Q2D@1000 [facility] Administration Metoprolol Tartrate 25 mg 12/08/18 22:00 12/26/18 09:46 Lopressor - PO 25 mg BID [facility] Administration Nystatin 500,000 units 12/20/18 00:00 12/26/18 11:34 Nystatin Oral Suspension - PO 500,000 units Q6HPO [facility] Administration Pantoprazole Sodium 40 mg 12/22/18 14:53 12/26/18 09:46 Protonix Packets For Oral Suspension - PO 40 mg DAILY [facility] Administration Polyethylene Glycol 17 gm 12/15/18 22:00 12/26/18 09:48 Miralax (For Daily Use) - PO 17 gm BID [facility] Administration Repaglinide 0.5 mg 12/25/18 17:00 12/26/18 06:29 Prandin - PO Not Given BID@0700,1700 [facility] Tamsulosin HCl 0.8 mg 12/21/18 08:30 12/26/18 09:45 Flomax - PO 0.8 mg DAILY@0830 [facility] Administration Tiotropium [place] 2 puff 12/09/18 10:00 12/26/18 09:48 Spiriva Respimat IH 2 puff DAILY [facility] Administration Valacyclovir HCl 500 mg 12/22/18 14:53 12/26/18 09:46 Valtrex - PO 500 mg DAILY [facility] Administration Impression 1. hyponatremia 2. CKD 3. nausea and vomiting 4. htn 5. DM 6. 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 multiple myeloma 9. anemia 10. proteinuria 11. hyperkalemia 12. resp failure 13. volume overload 14. hypernatremia 15. hyperkalemia Plan - cont to monitor renal function - can see in office - volume status is stable - no new labs today - pt tolerating diet Dr Cates
[2018-12-26 13:56] VITALS: BP 159/88; PULSE 88; TEMP 97.5
[2018-12-26 14:22] LABS: HEMATOCRIT 28.1 % (35.4-49); HEMOGLOBIN 9.6 GM/dL (11.7-16.9); MCH 30.2 pg (25.7-33.7); MCHC 34.3 g/dl (32.0-35.9); MEAN PLT VOLUME 8.2 fl (7.5-11.1); PLATELET COUNT 187 K/MM3 (134-434); RBC 3.19 M/mm3 (4.00-5.60); RDW 19.1 % (11.9-15.9); WHITE BLOOD COUNT 6.4 K/mm3 (4.0-10.0)
== END 2018-12-26 16:53 | disposition home or self-care (01) | DRG 73 ==
LOC: JER 06:46 → JERBED 09:45 → J4W 19:56 → JICU 11-25 18:45 → J4S 12-08 18:28
PROVIDERS: ADMIT Internal Medicine; ATTEND Family Medicine
PROC: 5A1945Z Respiratory Ventilation, 24-96 Consecutive Hours (ICD-10-PCS; 2018-11-25)
PROC: 0BH17EZ Insertion of Endotracheal Airway into Trachea, Via Natural or Artificial Opening (ICD-10-PCS; 2018-11-25)
PROC: 5A1955Z Respiratory Ventilation, Greater than 96 Consecutive Hours (ICD-10-PCS; principal; 2018-11-29)
PROC: 0BH17EZ Insertion of Endotracheal Airway into Trachea, Via Natural or Artificial Opening (ICD-10-PCS; 2018-11-29)
DX: E11.43 Type 2 diabetes mellitus with diabetic autonomic (poly)neuropathy (principal); J96.01 Acute respiratory failure with hypoxia; J96.02 Acute respiratory failure with hypercapnia; I21.4 Non-ST elevation (NSTEMI) myocardial infarction; J15.212 Pneumonia due to Methicillin resistant Staphylococcus aureus; E87.1 Hypo-osmolality and hyponatremia; G62.81 Critical illness polyneuropathy; J81.1 Chronic pulmonary edema; N17.9 Acute kidney failure, unspecified; C90.00 Multiple myeloma not having achieved remission; F11.20 Opioid dependence, uncomplicated; M48.50XA Collapsed vertebra, not elsewhere classified, site unspecified, initial encounter for fracture; B37.0 Candidal stomatitis; K56.7 Ileus, unspecified; E87.0 Hyperosmolality and hypernatremia; I16.9 Hypertensive crisis, unspecified; N39.0 Urinary tract infection, site not specified; K59.09 Other constipation; J44.9 Chronic obstructive pulmonary disease, unspecified; E11.22 Type 2 diabetes mellitus with diabetic chronic kidney disease; E11.319 Type 2 diabetes mellitus with unspecified diabetic retinopathy without macular edema; E83.51 Hypocalcemia; K31.84 Gastroparesis; R13.10 Dysphagia, unspecified; E11.40 Type 2 diabetes mellitus with diabetic neuropathy, unspecified; E87.5 Hyperkalemia; B19.20 Unspecified viral hepatitis C without hepatic coma; I12.9 Hypertensive chronic kidney disease with stage 1 through stage 4 chronic kidney disease, or unspecified chronic kidney disease; E78.5 Hyperlipidemia, unspecified; N18.9 Chronic kidney disease, unspecified; E66.9 Obesity, unspecified; F17.210 Nicotine dependence, cigarettes, uncomplicated; Z79.4 Long term (current) use of insulin; R74.0 Nonspecific elevation of levels of transaminase and lactic acid dehydrogenase [LDH]; B96.20 Unspecified Escherichia coli [E. coli] as the cause of diseases classified elsewhere; R19.7 Diarrhea, unspecified; G56.02 Carpal tunnel syndrome, left upper limb; B35.1 Tinea unguium; R94.5 Abnormal results of liver function studies; M21.372 Foot drop, left foot; M21.371 Foot drop, right foot; R33.9 Retention of urine, unspecified; Z68.27 Body mass index [BMI] 27.0-27.9, adult; D63.8 Anemia in other chronic diseases classified elsewhere
CPT/HCPCS: 36415; 36430; 36600; 70450-TC; 70551-TC; 71045-TC-FY; 74018-TC-FY; 74019-TC-FY; 74176-TC; 74230-TC-FY; 76705-TC; 80048; 80053; 80076; 81003; 81015; 82105; 82140; 82272; 82436; 82550; 82552; 82553; 82570; 82607; 82728; 82746; 82803; 82962; 83036; 83540; 83550; 83605; 83615; 83690; 83735; 83883; 83930; 83935; 84100; 84133; 84156; 84300; 84439; 84443; 84484; 84550; 85025; 85027; 85384; 85610; 85730; 86704; 86706; 86708; 86803; 86850; 86900; 86901; 86922; 87040; 87070; 87086; 87186; 87205; 87324; 87340; 87449; 87522; 87899; 92611-GN; 93005; 93010; 93306-TC; 93931; 93970-TC; 94002; 94010; 94640; 94660; 95816; 97116-GP; 97162-GP; 99283-25; G0480; J0131; J1644; J1756; J7030; P9038; P9058

== ENCOUNTER → 2018-12-30 | Day surgery (SDC) | payer OTHER | LOC: JONCCHEMO 07:31 ==

== ENCOUNTER 2019-01-01 16:00 | Inpatient (IN) | payer OTHER ==
[2019-01-01 16:19] VITALS: BMI 30.5
[2019-01-01] MEDS ORDERED: SODIUM CHLORIDE 3,062 ML IV ONE (16:29)
--- NOTE | 2019-01-01 16:32 | PDOC ---
History of Present Illness - History of Present Illness Initial Comments: 01/01/19 16:31 v63yo M hx HTN, HL, IDDM c/b PVD, HCV s/p harvoni, previous opioid abuse on methadone, active MM on chemo (follows w Dr. Grady, last chemo a month ago) present to the Ed after found obtunded by after patient gave himself insulin. He was discharged from our hospital 6 days ago after a month-long hospitalization in the ICu for gi bleed, constipation, hyponatremia and respiratory failure requiring intubation. He was subsequently sent for rehab at [facility]. He says that he wasn't given the proper care there , not checking his blood sugar enough so he left AMA this morning. He checked his own blood sugar this morning but because he couldnt get a reading , he assumed it meant he was hyperglycemic and self-administered 20 units of fast acting insulin after which he became obtunded. He then called 911 who brought the patient in. <Beau Roldan - Last Filed: 01/01/19 19:27> <Frances De La Cruz - Last Filed: 01/01/19 20:11> - General Chief Complaint: Pain Stated Complaint: PAIN Time Seen by Provider: 01/01/19 16:22 Past History - Past Medical History Anemia: Yes Asthma: Yes Cancer: Yes (myeloma) Cardiac Disorders: Yes (shortness of breath) COPD: Yes Diabetes: Yes GI Disorders: Yes (hep c) HTN: Yes Hypercholesterolemia: Yes - Surgical History Lung Surgery: Yes (fx of rib from occupational fall, rib punctured lung) Orthopedic Surgery: Yes (right toe removed) - Suicide/Smoking/Psychosocial Hx Smoking History: Current every day smoker Have you smoked in the past 12 months: No If you are a former smoker, when did you quit?: 1996 Information on smoking cessation initiated: No Hx Alcohol Use: No Drug/Substance Use Hx: No Substance Use Type: None, Cocaine, Heroin Hx Substance Use Treatment: No <Beau Roldan - Last Filed: 01/01/19 19:27> <Frances De La Cruz - Last Filed: 01/01/19 20:11> - Past Medical History Allergies/Adverse Reactions: Allergies Allergy/AdvReac Type Severity Reaction Status Date / Time No Known Allergies Allergy Verified 01/01/19 16:16 Home Medications: Ambulatory Orders Albuterol Sulfate Inhaler - [Ventolin HFA Inhaler -] 2 puff PO QID PRN 06/07/15 Aspirin [Aspirin EC] 81 mg PO DAILY 06/07/15 Enalapril Maleate [Vasotec -] 20 mg PO DAILY 06/07/15 Insulin Glargine,Hum.rec.anlog [Lantus (10mL VIAL) -] 40 unit SQ HS 06/07/15 Salmeterol/Fluticasone [Advair 100Mcg/50Mcg -] 1 puff PO BID 06/07/15 Sertraline HCl 50 mg PO DAILY 06/07/15 metFORMIN HCL [Metformin HCl] 1,000 mg PO BID 06/07/15 Acetaminophen [Tylenol .Regular Strength -] 650 mg PO Q6H PRN #0 tablet Methadone [Dolophine -] 70 mg PO DAILY 01/30/16 Buspirone HCl 15 mg PO BID 07/22/18 Metoprolol Tartrate [Lopressor -] 25 mg PO BID #60 tablet 07/27/18 Nifedipine ER [Procardia XL -] 30 mg PO DAILY #30 tab.er.24 07/27/18 Acetaminophen [Tylenol .Extra-Strength -] 500 mg PO Q6H PRN tablet 12/21/18 Ammonium Lactate Lotion [Lac-Hydrin 12] 1 applic TP BID PRN bottle 12/21/18 Aspirin [ASA -] 81 mg PO DAILY tab.chew 12/21/18 Atorvastatin Ca [Lipitor] 80 mg PO HS tablet 12/21/18 Buspirone HCl [Buspar -] 15 mg NR BID tablet 12/21/18 Calcium 500Mg/Vit-D 200 Units [Os-Kyler 500+D -] 2 tab PO DAILY tab 12/21/18 Heparin - 5,000 unit SQ BID vial 12/21/18 Insulin Sliding Scale [Novolog Vial Sliding Scale -] 1 vial SQ TIDAC units Methadone HCl 20 mg PO DAILY #60 tablet MDD 2 12/21/18 Metoprolol Tartrate [Lopressor -] 25 mg PO BID tablet 12/21/18 Nystatin Oral Suspension - [Nystatin Oral Susp 839742 Units/5 ML -] 500,000 units PO Q6HPO cup 12/21/18 Ocular Lubricant Ophth Oint [Lacri-Lube S.o.p -] 1 applic OD HS PRN tube Pantoprazole Suspension [Protonix Packets For Oral Suspension -] 40 mg PO DAILY packet 12/21/18 Polyethylene Glycol 3350 [Miralax 119 gm Btl -] 17 gm PO BID bottle 12/21/18 Tamsulosin HCl [Flomax -] 0.8 mg PO DAILY@0830 cap.er.24h 12/21/18 Tiotropium [place] [Spiriva Respimat] 2 puff IH DAILY inhaler 12/21/18 Valacyclovir HCl [Valtrex -] 500 mg PO DAILY tablet 12/21/18 Review of Systems - Review of Systems Able to Perform ROS?: No (obtunded) Is the patient limited Georgian proficient: No <Beau Roldan - Last Filed: 01/01/19 19:27> *Physical Exam - Vital Signs Last Vital Signs Temp Pulse Resp BP Pulse Ox 98.1 F 72 16 85/54 L 100 01/01/19 16:16 01/01/19 16:16 01/01/19 16:16 01/01/19 16:16 01/01/19 16:16 - Physical Exam General Appearance: Yes: Nourished, Severe Distress HEENT: positive: [place] Respiratory/Chest: positive: Lungs Clear, Normal Breath Sounds Cardiovascular: positive: Regular Rhythm, Regular Rate, S1, S2 Gastrointestinal/Abdominal: positive: Normal Bowel Sounds, Soft, Protuberent Male Genitalia: positive: other (sykes catheter in place) Extremity: positive: Coldness Integumentary: positive: Clammy, Diaphoresis, Bruising (all over abdomen) <Beau Roldan - Last Filed: 01/01/19 19:27> - Vital Signs Last Vital Signs Temp Pulse Resp BP Pulse Ox 97 F L 63 20 98/64 100 01/01/19 17:19 01/01/19 17:24 01/01/19 17:24 01/01/19 17:24 01/01/19 17:24 <Frances De La Cruz - Last Filed: 01/01/19 20:11> ED Treatment Course - LABORATORY CBC & Chemistry Diagram: 01/01/19 16:40 01/01/19 16:40 - RADIOLOGY Radiology Studies Ordered: Category Date Time Status CHEST X-RAY PORTABLE* [RAD] Stat Radiology 01/01/19 16:29 Ordered <Beau Roldan - Last Filed: 01/01/19 19:27> - LABORATORY CBC & Chemistry Diagram: 01/01/19 16:40 01/01/19 16:40 - ADDITIONAL ORDERS Additional order review: Laboratory Results 01/01/19 01/01/19 01/01/19 16:40 16:40 16:40 WBC RBC Hgb Hct MCV MCH MCHC RDW Plt Count MPV Absolute Neuts (auto) Neutrophils % Lymphocytes % Monocytes % Eosinophils % Basophils % Nucleated RBC % PT with INR INR PTT (Actin FS) VBG pH POC VBG pCO2 POC VBG pO2 VBG HCO3 VBG O2 Sat (Martin) VBG Base Excess Sodium 139 Potassium 4.9 Chloride 110 H Carbon Dioxide 19 L Anion Gap 10 BUN 33 H Creatinine 1.9 H Creat Clearance w eGFR 35.76 Random Glucose 14 L* Lactic Acid 1.1 Calcium 7.8 L Total Bilirubin 0.1 L AST 18 ALT 23 Alkaline Phosphatase 112 Troponin I 0.41 H Total Protein 6.3 L Albumin 2.9 L Urine Color Urine Appearance Urine pH Ur Specific [place] Urine Protein Urine Glucose (UA) Urine Ketones Urine Blood Urine Nitrite Urine Bilirubin Urine Urobilinogen Ur Leukocyte Esterase Urine WBC (Auto) Urine RBC (Auto) Urine Casts (Auto) U Epithel Cells (Auto) Urine Bacteria (Auto) 01/01/19 01/01/19 01/01/19 16:40 16:40 16:40 WBC RBC Hgb Hct MCV MCH MCHC RDW Plt Count MPV Absolute Neuts (auto) Neutrophils % Lymphocytes % Monocytes % Eosinophils % Basophils % Nucleated RBC % PT with INR 14.10 H INR 1.19 H PTT (Actin FS) 36.2 VBG pH 7.21 L POC VBG pCO2 49.8 POC VBG pO2 64.1 H VBG HCO3 19.2 L VBG O2 Sat (Martin) 87.3 H VBG Base Excess -7.8 L Sodium Potassium Chloride Carbon Dioxide Anion Gap BUN Creatinine Creat Clearance w eGFR Random Glucose Lactic Acid Calcium Total Bilirubin AST ALT Alkaline Phosphatase Troponin I Total Protein Albumin Urine Color Yellow Urine Appearance Turbid Urine pH 5.0 Ur Specific [place] 1.024 Urine Protein 3+ H Urine Glucose (UA) Negative Urine Ketones Trace H Urine Blood 3+ H Urine Nitrite Negative Urine Bilirubin Negative Urine Urobilinogen 1.0 Ur Leukocyte Esterase 3+ H Urine WBC (Auto) 1048 Urine RBC (Auto) 32.3 Urine Casts (Auto) 52 U Epithel Cells (Auto) 11.9 Urine Bacteria (Auto) 3902.6 01/01/19 16:40 WBC 6.7 RBC 2.99 L Hgb 8.9 L Hct 26.7 L MCV 89.4 MCH 29.8 MCHC 33.3 RDW 18.9 H Plt Count 194 MPV 7.4 L Absolute Neuts (auto) 5.6 Neutrophils % 83.5 H Lymphocytes % 11.1 D Monocytes % 4.4 Eosinophils % 0.8 Basophils % 0.2 Nucleated RBC % 0 PT with INR INR PTT (Actin FS) VBG pH POC VBG pCO2 POC VBG pO2 VBG HCO3 VBG O2 Sat (Martin) VBG Base Excess Sodium Potassium Chloride Carbon Dioxide Anion Gap BUN Creatinine Creat Clearance w eGFR Random Glucose Lactic Acid Calcium Total Bilirubin AST ALT Alkaline Phosphatase Troponin I Total Protein Albumin Urine Color Urine Appearance Urine pH Ur Specific [place] Urine Protein Urine Glucose (UA) Urine Ketones Urine Blood Urine Nitrite Urine Bilirubin Urine Urobilinogen Ur Leukocyte Esterase Urine WBC (Auto) Urine RBC (Auto) Urine Casts (Auto) U Epithel Cells (Auto) Urine Bacteria (Auto) 01/01/19 16:40 RBC 2.99 L MCV 89.4 MCHC 33.3 RDW 18.9 H MPV 7.4 L Neutrophils % 83.5 H Lymphocytes % 11.1 D Monocytes % 4.4 Eosinophils % 0.8 Basophils % 0.2 - Medications Given in the ED: ED Medications Discontinued Medications Generic Name Dose Route Start Last Admin Trade Name Imani PRN Reason Stop Dose Admin Dextrose 25 gm 01/01/19 16:56 01/01/19 16:55 D50w (Vial) - IVPUSH 01/01/19 16:57 25 gm NOW ONE Administration Dextrose 25 gm 01/01/19 17:50 01/01/19 18:08 D50w (Vial) - IVPUSH 01/01/19 17:51 25 gm NOW ONE Administration Hydrocortisone Sodium Succinate 100 mg 01/01/19 18:29 01/01/19 18:56 Solu-Cortef - IVPUSH 01/01/19 18:30 100 mg ONCE ONE Administration Sodium Chloride 3,062 mls @ 1,531 mls/hr 01/01/19 16:29 01/01/19 17:18 Normal Saline - 30 ml/kg infuse over 2 hr (3062 ml) 01/01/19 18:28 1,531 mls/hr IV Administration ONCE ONE <Frnaces De La Cruz - Last Filed: 01/01/19 20:11> Medical Decision Making - Medical Decision Making 01/01/19 19:25 Septic workup ordered. liter of NS Glucose of 14. Patient given 2 amps of d50 and liter of D5 (D10 not available in the ED) FS up to 230. Patient at mental baseline. EKG: Normal sinus with ST and T changes, anteroseptal infarct unknown. Same read as last EKG available with deeper T waves. 01/01/19 19:27 UTI on urine treated with Cefepime. PAtient admittedd to Tele Obs <Beau Roldan - Last Filed: 01/01/19 19:27> *DC/Admit/Observation/Transfer <Beau Roldan - Last Filed: 01/01/19 19:27> - Discharge Dispostion Decision to Admit order: Yes Decision to Admit order Date/Time: Decision to Admit Order Category Date Time Status Decision to Admit to Hospital Routine Admission 01/01/19 19:04 Ordered <Frances De La Cruz - Last Filed: 01/01/19 20:11> Diagnosis at time of Disposition: Hypoglycemia, Hypoglycemia due to insulin, NSTEMI (non-ST elevated myocardial infarction), UTI (urinary tract infection), Acute metabolic encephalopathy - Discharge Dispostion Condition at time of disposition: Fair
[2019-01-01] MEDS ORDERED: DEXTROSE 50%-WATER - 25 GM/50 ML VIAL ONE ×2 (16:53→17:51)
[2019-01-01] MEDS ORDERED: DEXTROSE 50%-WATER - 25 GM/50 ML VIAL IVPUSH ONE ×2 (16:56→17:50)
[2019-01-01 17:19] LABS: BASO % 0.2 % (0-2.0); EOS % 0.8 % (0-4.5); HEMATOCRIT 26.7 % (35.4-49); HEMOGLOBIN 8.9 GM/dL (11.7-16.9); LYMPH % 11.1 % (8-40); MCH 29.8 pg (25.7-33.7); MCHC 33.3 g/dl (32.0-35.9); MEAN CELL VOLUME 89.4 fl (80-96); MEAN PLT VOLUME 7.4 fl (7.5-11.1); MONO % 4.4 % (3.8-10.2); NEUT % 83.5 % (42.8-82.8); PLATELET COUNT 194 K/MM3 (134-434); RBC 2.99 M/mm3 (4.00-5.60); RDW 18.9 % (11.9-15.9); WHITE BLOOD COUNT 6.7 K/mm3 (4.0-10.0)
[2019-01-01 17:30] LABS: INR 1.19 (0.83-1.09); PROTHROMBIN TIME (PATIENT) 14.1 SEC (9.7-13.0)
[2019-01-01 17:33] LABS: ACTIVATED PTT 36.2 SECONDS (25.2-36.5)
[2019-01-01 17:39] LABS: VENOUS PC02 49.8 mmHg (41-51); VENOUS PH 7.21 (7.31-7.41); VENOUS PO2 64.1 mmHg (30-40)
--- NOTE | 2019-01-01 17:47 | PDOC ---
Attending Attestation - Resident Resident Name: YuliBeau - ED Attending Attestation I have performed the following: I have examined & evaluated the patient, The case was reviewed & discussed with the resident, I agree w/resident's findings & plan - [facility] HPI: 01/01/19 20:02 63YOM, with significant past medical history of anemia, gastroparesis, neuropathy, retinopathy, metabolic derangements, UTI, CKD, ileus, previous intubation for respiratory failure after complicated GI bleed, HTN, HLD, IDDM, PVD, HCV (s/p Harvoni), multiple myeloma (on chemo, last treatment a month ago) , and on Methadone (previous opioid abuse) who presents to the ED with, AMS and weakness. As per EMS, patient was hypoglycemic thus given an amp of D50. While in the ED, patient endorses diffuse body aches with associated weakness and decreased PO intake. Patient was recently discharged from [facility] from a stay spanning 11/20- 12/26. he left rehab prior to full course, and has been unable to ambulate. - Physicial Exam PE: 01/01/19 20:03 +Malaise-appearing, oriented to place, person and time. PERRL, EOMI, +Dry mucus membranes, pale conjunctiva, anicteric; neck supple. lungs clear, RRR, lower abdomen +ecchymosis. soft nontender, +Protuberant, no rebound or guarding. no CVAT.. CHAVARRIA x4, no focal neuro deficits. No peripheral edema. cool and clammy to touch. - Critical Care Time Total Critical Care Time: 45 (metabolic crisis, encephalopathy) Critical Care Statement: The care of this patient involved high complexity decision making to prevent further life threatening deterioration of the patient 's condition and/or to evaluate & treat vital organ system(s) failure or risk of failure. - Medical Decision Making 01/01/19 20:04 I, Frances De La Cruz MD, attest that this document has been prepared under my direction and personally reviewed by me in its entirety. I further attest, that it accurately reflects all work, treatment, procedures and medical decision -making performed by me. See HPI for details dDx. metabolic encephalopathy, electrolyte derangements, UTI, PNA, anemia, bleed , dehydration. adrenal suppression/insufficiency. Vital signs reviewed, +hypotensive, temp 97 - feels cool, will warm with blankets Prior notes reviewed, including admissions, discharges and consultations. laboratory results and imaging reviewed, basic labs and lytes wnl, notable for baseline Cr, potassium and remainder of lytes normal UA_grossly positive with plenty of leuk esterase and WBCs, f/u urine culture, reviewed prior with +pseudomonas, enterococcus, MRSA - will treat broadly with cefepime and vancomycin, narrow per cultures CXR_no acute pathology, similar to prior CXR, cardiomegaly without infiltrate Cardiac panel_positive trop to 0.4, prior trops always elevated as well, this is lower than peaks, needs trending and serials. could be demand ischemia. TWI noted more pronounced on EKG. ED course - IVF 2 liters for hypotension, likely from dehydration/poor intake - hydrocortisone, in case of adrenal insufficiency for hypoglycemia and low temp , HOTN - dextrose, D10NS gtt for recurrent hypoglycemia. - wax and waning mental status 2/2 hypoglycemia on several checks. after improvement,. tolerating mMs and PO. - abx for UTI, - NSTEMI noted with increased TWI, likely demand ischemia. - tele monitor admission and close observation Admit for AMS/hypoglycemia, UTI and NSTEMI. Discussed results and management plan with pt and family member at bedside, agree with impression and plan admit to telemetry, admit hospitalist service overnight, s/o to Dr Maldonado 01/01/19 20:07 01/01/19 20:09 Heart Score/ECG Review #1 ECG reviewed & interpreted by me at: 17:10 General ECG Interpretation: Sinus Rhythm, Normal Rate Compared to previous ECG there are: Changes noted 01/01/19 19:34 EKG NSR at 70 bpm, prolonged QTc, narrow QRS, ST segments and morphology normal. TWI in V1-V6, I, AVL, II - more pronounced compared to prior.
[2019-01-01 17:48] LABS: ALBUMIN 2.9 g/dl (3.4-5.0); ALK PHOS 112 U/L (45-117); ANION GAP 10 MMOL/L (8-16); BILIRUBIN,TOTAL 0.1 mg/dL (0.2-1); BLOOD UREA NITROGEN 33 mg/dL (7-18); CALCIUM 7.8 mg/dL (8.5-10.1); CHLORIDE 110 mmol/L (98-107); CO2 19 mmol/L (21-32); CREATININE 1.9 mg/dL (0.55-1.3); POTASSIUM 4.9 mmol/L (3.5-5.1); SGOT/AST 18 U/L (15-37); SGPT/ALT 23 U/L (13-61); SODIUM 139 mmol/L (136-145); TOT PROT 6.3 g/dl (6.4-8.2)
[2019-01-01 17:50] LABS: GLUCOSE,RANDOM 14 mg/dL (74-106)
[2019-01-01] MEDS ORDERED: DEXTROSE 10%-WATER - 1,000 ML IV SCH (18:00)
[2019-01-01 18:02] LABS: EPI CELLS 11.9 /HPF (0-5); HYALINE CASTS 52 /hpf (0-8); URINE APPEARANCE TURBID; URINE BACTERIA 3902.6 /hpf (NEGATIVE); URINE BILIRUBIN NEGATIVE (NEGATIVE); URINE COLOR YELLOW; URINE GLUCOSE (UA) NEGATIVE (NEGATIVE); URINE KETONE TRACE (NEGATIVE); URINE LEUK ESTERASE 3+ (NEGATIVE); URINE NITRITE NEGATIVE (NEGATIVE); URINE PROTEIN 3+ (NEGATIVE); URINE WBC 1048 /hpf (0-5)
[2019-01-01 18:24] LABS: URINE RBC 32.3 /hpf (0-4)
[2019-01-01] MEDS ORDERED: HYDROCORTISONE SOD SUCCINATE 100 MG/2 ML VIAL IVPUSH ONE (18:29)
[2019-01-01] MEDS ORDERED: HYDROCORTISONE SOD SUCCINATE 2 ML ONE (18:39)
--- NOTE | 2019-01-01 18:51 | HP ---
CHIEF COMPLAINT: hypoglycemia PCP: Albaro HISTORY OF PRESENT ILLNESS: 63 yo man recently diagnosed with multJavier gary, recently discharged from inpatient- (was in ICU intubated for pneumonia and respiratory failure) to rehab facility. He signed himself out of rehab this morning and took insulin sc dose and was later found to be confused and diaphoretic, shakey, glucometer was not readable. He was then brought to the hospital and received d50 IV, after which his mental status returned to baseline. ER course was notable for: (1) d50 (2) (3) Recent Travel:no PAST MEDICAL HISTORY:HTN, HLD, IDDM, Hep C (on Harvoni), PVD/LE ulcers, past opioid use (on methadone), and multiple myeloma (dx 2 months ago) PAST SURGICAL HISTORY:right 5th toe amputation Social History: Smoking:ex smoker Alcohol:none Drugs: iv dugs use and hep c Family History: Allergies No Known Allergies Allergy (Verified 01/01/19 16:16) HOME MEDICATIONS: Home Medications Medication Instructions Recorded Albuterol Sulfate Inhaler - 2 puff PO QID PRN 06/07/15 [Ventolin HFA Inhaler -] Aspirin [Aspirin EC] 81 mg PO DAILY 06/07/15 Enalapril Maleate [Vasotec -] 20 mg PO DAILY 06/07/15 Insulin Glargine,Hum.rec.anlog 40 unit SQ HS 06/07/15 [Lantus (10mL VIAL) -] Salmeterol/Fluticasone [Advair 1 puff PO BID 06/07/15 100Mcg/50Mcg -] Sertraline HCl 50 mg PO DAILY 06/07/15 metFORMIN HCL [Metformin HCl] 1,000 mg PO BID 06/07/15 Acetaminophen [Tylenol .Regular 650 mg PO Q6H PRN #0 tablet 06/14/15 Strength -] Methadone [Dolophine -] 70 mg PO DAILY 01/30/16 Buspirone HCl 15 mg PO BID 07/22/18 Metoprolol Tartrate [Lopressor -] 25 mg PO BID #60 tablet 07/27/18 Nifedipine ER [Procardia XL -] 30 mg PO DAILY #30 tab.er.24 07/27/18 Acetaminophen [Tylenol 500 mg PO Q6H PRN tablet 12/21/18 .Extra-Strength -] Ammonium Lactate Lotion 1 applic TP BID PRN bottle 12/21/18 [Lac-Hydrin 12] Aspirin [ASA -] 81 mg PO DAILY tab.chew 12/21/18 Atorvastatin Ca [Lipitor] 80 mg PO HS tablet 12/21/18 Buspirone HCl [Buspar -] 15 mg NR BID tablet 12/21/18 Calcium 500Mg/Vit-D 200 Units 2 tab PO DAILY tab 12/21/18 [Os-Kyler 500+D -] Heparin - 5,000 unit SQ BID vial 12/21/18 Insulin Sliding Scale [Novolog 1 vial SQ TIDAC units 12/21/18 Vial Sliding Scale -] Methadone HCl 20 mg PO DAILY #60 tablet MDD 2 12/21/18 Metoprolol Tartrate [Lopressor -] 25 mg PO BID tablet 12/21/18 Nystatin Oral Suspension - 500,000 units PO Q6HPO cup 12/21/18 [Nystatin Oral Susp 658100 Units/5 ML -] Ocular Lubricant Ophth Oint 1 applic OD HS PRN tube 12/21/18 [Lacri-Lube S.o.p -] Pantoprazole Suspension [Protonix 40 mg PO DAILY packet 12/21/18 Packets For Oral Suspension -] Polyethylene Glycol 3350 [Miralax 17 gm PO BID bottle 12/21/18 119 gm Btl -] Tamsulosin HCl [Flomax -] 0.8 mg PO DAILY@0830 cap.er.24h 12/21/18 Tiotropium [place] [Spiriva 2 puff IH DAILY inhaler 12/21/18 Respimat] Valacyclovir HCl [Valtrex -] 500 mg PO DAILY tablet 12/21/18 REVIEW OF SYSTEMS CONSTITUTIONAL: Absent: fever, chills, , malaise, loss of appetite, weight change present- diaphoresis, generalized weakness HEENT: Absent: rhinorrhea, nasal congestion, throat pain, throat swelling, difficulty swallowing, mouth swelling, ear pain, eye pain, visual changes CARDIOVASCULAR: Absent: chest pain, syncope, palpitations, irregular heart rate, lightheadedness , peripheral edema RESPIRATORY: Absent: cough, shortness of breath, dyspnea with exertion, orthopnea, wheezing, stridor, hemoptysis GASTROINTESTINAL: Absent: abdominal pain, abdominal distension, nausea, vomiting, diarrhea, constipation, melena, hematochezia GENITOURINARY: Absent: dysuria, frequency, urgency, hesitancy, hematuria, flank pain, genital pain MUSCULOSKELETAL: Absent: myalgia, arthralgia, joint swelling, back pain, neck pain SKIN: Absent: rash, itching, pallor HEMATOLOGIC/IMMUNOLOGIC: Absent: easy bleeding, easy bruising, lymphadenopathy, frequent infections ENDOCRINE: Absent: unexplained weight gain, unexplained weight loss, heat intolerance, cold intolerance NEUROLOGIC: Absent: focal weakness or paresthesias, dizziness, unsteady gait, seizure, mental status changes, bladder or bowel incontinence present- headache, PSYCHIATRIC: Absent: anxiety, depression, suicidal or homicidal ideation, hallucinations. PHYSICAL EXAMINATION Vital Signs - 24 hr 01/01/19 01/01/19 01/01/19 16:16 17:15 17:19 Temperature 98.1 F 97 F L 97 F L Pulse Rate 72 Pulse Rate [ 61 Apical] Respiratory 16 Rate Blood Pressure 85/54 L Blood Pressure 85/56 L [Left Arm] O2 Sat by Pulse 100 100 Oximetry (%) 01/01/19 17:24 Temperature Pulse Rate Pulse Rate [ 63 Apical] Respiratory 20 Rate Blood Pressure Blood Pressure 98/64 [Left Arm] O2 Sat by Pulse 100 Oximetry (%) GENERAL: Awake, alert, and fully oriented, in no acute distress. HEAD: Normal with no signs of trauma. EYES: Pupils equal, round and reactive to light, extraocular movements intact, sclera anicteric, conjunctiva clear. No lid lag. EARS, NOSE, THROAT: Ears normal, nares patent, oropharynx clear without exudates. Moist mucous membranes. NECK: Normal range of motion, supple without lymphadenopathy, JVD, or masses. LUNGS: Breath sounds equal, clear to auscultation bilaterally. No wheezes, and no crackles. No accessory muscle use. HEART: Regular rate and rhythm, normal S1 and S2 without murmur, rub or gallop. ABDOMEN: Soft, nontender, not distended, normoactive bowel sounds, no guarding, no rebound, no masses. No hepatomegaly or splenomegaly. MUSCULOSKELETAL: Normal range of motion at all joints. No bony deformities or tenderness. No CVA tenderness. UPPER EXTREMITIES: 2+ pulses, warm, well-perfused. No cyanosis. No clubbing. No peripheral edema. LOWER EXTREMITIES: right fifth toe s/p amputation, chronic venous stasis skin changes NEUROLOGICAL: Cranial nerves II-XII intact. Normal speech. PSYCHIATRIC: Cooperative. Good eye contact. Appropriate mood and affect. SKIN: Warm, dry, normal turgor, no rashes or lesions noted, normal capillary refill. Laboratory Results - last 24 hr 01/01/19 01/01/19 01/01/19 16:40 16:40 16:40 WBC 6.7 RBC 2.99 L Hgb 8.9 L Hct 26.7 L MCV 89.4 MCH 29.8 MCHC 33.3 RDW 18.9 H Plt Count 194 MPV 7.4 L Absolute Neuts (auto) 5.6 Neutrophils % 83.5 H Lymphocytes % 11.1 D Monocytes % 4.4 Eosinophils % 0.8 Basophils % 0.2 Nucleated RBC % 0 PT with INR 14.10 H INR 1.19 H PTT (Actin FS) 36.2 VBG pH POC VBG pCO2 POC VBG pO2 VBG HCO3 VBG O2 Sat (Martin) VBG Base Excess Sodium Potassium Chloride Carbon Dioxide Anion Gap BUN Creatinine Creat Clearance w eGFR Random Glucose Lactic Acid Calcium Total Bilirubin AST ALT Alkaline Phosphatase Troponin I Total Protein Albumin Urine Color Yellow Urine Appearance Turbid Urine pH 5.0 Ur Specific [place] 1.024 Urine Protein 3+ H Urine Glucose (UA) Negative Urine Ketones Trace H Urine Blood 3+ H Urine Nitrite Negative Urine Bilirubin Negative Urine Urobilinogen 1.0 Ur Leukocyte Esterase 3+ H Urine WBC (Auto) 1048 Urine RBC (Auto) 32.3 Urine Casts (Auto) 52 U Epithel Cells (Auto) 11.9 Urine Bacteria (Auto) 3902.6 01/01/19 01/01/19 01/01/19 16:40 16:40 16:40 WBC RBC Hgb Hct MCV MCH MCHC RDW Plt Count MPV Absolute Neuts (auto) Neutrophils % Lymphocytes % Monocytes % Eosinophils % Basophils % Nucleated RBC % PT with INR INR PTT (Actin FS) VBG pH 7.21 L POC VBG pCO2 49.8 POC VBG pO2 64.1 H VBG HCO3 19.2 L VBG O2 Sat (Martin) 87.3 H VBG Base Excess -7.8 L Sodium 139 Potassium 4.9 Chloride 110 H Carbon Dioxide 19 L Anion Gap 10 BUN 33 H Creatinine 1.9 H Creat Clearance w eGFR 35.76 Random Glucose 14 L* Lactic Acid 1.1 Calcium 7.8 L Total Bilirubin 0.1 L AST 18 ALT 23 Alkaline Phosphatase 112 Troponin I Total Protein 6.3 L Albumin 2.9 L Urine Color Urine Appearance Urine pH Ur Specific [place] Urine Protein Urine Glucose (UA) Urine Ketones Urine Blood Urine Nitrite Urine Bilirubin Urine Urobilinogen Ur Leukocyte Esterase Urine WBC (Auto) Urine RBC (Auto) Urine Casts (Auto) U Epithel Cells (Auto) Urine Bacteria (Auto) 01/01/19 16:40 WBC RBC Hgb Hct MCV MCH MCHC RDW Plt Count MPV Absolute Neuts (auto) Neutrophils % Lymphocytes % Monocytes % Eosinophils % Basophils % Nucleated RBC % PT with INR INR PTT (Actin FS) VBG pH POC VBG pCO2 POC VBG pO2 VBG HCO3 VBG O2 Sat (Martin) VBG Base Excess Sodium Potassium Chloride Carbon Dioxide Anion Gap BUN Creatinine Creat Clearance w eGFR Random Glucose Lactic Acid Calcium Total Bilirubin AST ALT Alkaline Phosphatase Troponin I 0.41 H Total Protein Albumin Urine Color Urine Appearance Urine pH Ur Specific [place] Urine Protein Urine Glucose (UA) Urine Ketones Urine Blood Urine Nitrite Urine Bilirubin Urine Urobilinogen Ur Leukocyte Esterase Urine WBC (Auto) Urine RBC (Auto) Urine Casts (Auto) U Epithel Cells (Auto) Urine Bacteria (Auto) ASSESSMENT/PLAN: #Hypoglycemia- may have been from inapropriate insulin administration -observation -d5w drip for now -monitor FS q4hrs #tropinemia- absence of chest pain or shortness of breath, doubt ACS- -nurse monitoring -trend troponins -echo #History of Hep C on -ID f/u #Multiple myeloma -heme/onc f/u #Hypotension - asymptomatic -hold all anthypertensive meds at this time #past opioid use (on methadone) -c/w home dose methadone #dvt ppx -heparin sc Visit type - Emergency Visit Emergency Visit: Yes Care time: The patient presented to the Emergency Department on the above date and was hospitalized for further evaluation of their emergent condition. - New Patient This patient is new to me today: Yes Date on this admission: 01/01/19 - Critical Care Critical Care patient: No
[2019-01-01] MEDS ORDERED: VANCOMYCIN 1,000 MG in DEXTROSE 5%-WATER - 250 ML IVPB ONE (19:02)
[2019-01-01] MEDS ORDERED: CEFEPIME HCL/D5W 1 GM/50 ML BAG IVPB ONE (19:03)
[2019-01-01] MEDS ORDERED: MINERAL OIL/PETROLATUM,WHITE 3.5 GM TUBE OD PRN (19:22)
[2019-01-01] MEDS ORDERED: DEXTROSE 5%-WATER - 1,000 ML IV SCH (19:30)
[2019-01-01] MEDS ORDERED: CEFEPIME 1 GM/100 ML BAG IVPB ONE (19:48)
[2019-01-01] MEDS ORDERED: DEXTROSE 5%-NORMAL SALINE 1,000 ML IV ONE (20:03)
[2019-01-01] MEDS ORDERED: VANCOMYCIN 1 GRAM (PRE-DOCKED) 1,000 MG/250 ML BAG IVPB ONE (20:04)
[2019-01-01] MEDS ORDERED: HEPARIN NA (PORCINE) 5,000 UNITS/ML 1ML VIAL SQ SCH (22:00)
[2019-01-01] MEDS ORDERED: HEPARIN NA (PORCINE) 5,000 UNITS/ML 1ML VIAL ONE (22:20)
[2019-01-01] MEDS ORDERED: busPIRone HCL 5 MG TABLET ONE (22:20)
[2019-01-01] MEDS: busPIRone HCL 5 MG TABLET PO SCH (22:39)
[2019-01-01] MEDS: ATORVASTATIN CA 80 MG TABLET (FP) PO SCH (22:39)
[2019-01-01] MEDS: HEPARIN NA (PORCINE) 5,000 UNITS/ML 1ML VIAL SQ SCH (22:39)
[2019-01-02] MEDS: INSULIN SLIDING SCALE (NOVOLOG) 1 VIAL SQ SCH ×5 (01:18→23:02)
[2019-01-02] MEDS: FLUTICASONE/SALMETEROL 100 MCG/50 MCG DISKUS IH SCH ×3 (01:24→22:58)
[2019-01-02 05:51] LABS: HEMATOCRIT 24.5 % (35.4-49); HEMOGLOBIN 7.9 GM/dL (11.7-16.9); MCH 28.7 pg (25.7-33.7); MCHC 32.1 g/dl (32.0-35.9); MEAN CELL VOLUME 89.3 fl (80-96); MEAN PLT VOLUME 7.1 fl (7.5-11.1); PLATELET COUNT 166 K/MM3 (134-434); RBC 2.75 M/mm3 (4.00-5.60); RDW 19.1 % (11.9-15.9); WHITE BLOOD COUNT 6.8 K/mm3 (4.0-10.0)
[2019-01-02 06:35] LABS: ALBUMIN 2.3 g/dl (3.4-5.0); ALK PHOS 87 U/L (45-117); ANION GAP 7 MMOL/L (8-16); BILIRUBIN,TOTAL 0.2 mg/dL (0.2-1); BLOOD UREA NITROGEN 31 mg/dL (7-18); CHLORIDE 108 mmol/L (98-107); CO2 20 mmol/L (21-32); CREATININE 1.8 mg/dL (0.55-1.3); GLUCOSE,RANDOM 106 mg/dL (74-106); POTASSIUM 5.6 mmol/L (3.5-5.1); SGOT/AST 13 U/L (15-37); SGPT/ALT 15 U/L (13-61); SODIUM 135 mmol/L (136-145); TOT PROT 5.2 g/dl (6.4-8.2)
[2019-01-02 06:43] LABS: CALCIUM 6.7 mg/dL (8.5-10.1)
[2019-01-02] MEDS: DEXTROSE 5%-WATER - 1,000 ML IV SCH ×2 (07:16→18:45)
[2019-01-02] MEDS: TAMSULOSIN HCL 0.4 MG CAP PO SCH (09:28)
[2019-01-02] MEDS: ENALAPRIL MALEATE 10 MG TABLET (FP) PO SCH (09:43)
[2019-01-02] MEDS: SERTRALINE HCL 50 MG TABLET (FP) PO SCH (09:43)
[2019-01-02] MEDS: HEPARIN NA (PORCINE) 5,000 UNITS/ML 1ML VIAL SQ SCH ×2 (09:43→22:58)
[2019-01-02] MEDS: ASPIRIN 81 MG CHEWABLE TABLETS PO SCH (09:43)
[2019-01-02] MEDS: PANTOPRAZOLE SOD 40 MG SUSPENSION PACKET PO SCH (09:43)
[2019-01-02] MEDS: valACYclovir HCL 500 MG TABLET (FP) PO SCH (09:43)
[2019-01-02] MEDS: busPIRone HCL 5 MG TABLET PO SCH ×2 (09:43→23:00)
[2019-01-02] MEDS: CALCIUM 500MG/VIT-D 200 UNITS COMBO TABLET (FP) PO SCH ×2 (09:43→22:58)
--- NOTE | 2019-01-02 09:59 | EKG ---
Test Reason : Blood Pressure : / mmHG Vent. Rate : 070 BPM Atrial Rate : 070 BPM P-R Int : 186 ms QRS Dur : 076 ms QT Int : 456 ms P-R-T Axes : 063 010 256 degrees QTc Int : 492 ms NORMAL SINUS RHYTHM PROLONGED QT ABNORMAL ECG WHEN COMPARED WITH ECG OF 30-NOV-2018 03:15, NO SIGNIFICANT CHANGE WAS FOUND Confirmed by KRANTHI DE LA CRUZ MD ([id number]) on 01/02/2019 9:58:51 AM Referred By: Confirmed By:KRANTHI DE LA CRUZ MD
[2019-01-02] MEDS ORDERED: METHADONE HCL 10 MG TABLET PO SCH (10:00)
[2019-01-02] MEDS: TIOTROPIUM BROMIDE 2.5 MCG (SPIRIVA) RESPIMAT INHALER IH SCH (10:31)
--- NOTE | 2019-01-02 12:18 | PN ---
Progress Note (short form) - Note Progress Note: ID CONSULT DICTATED SYMPTOMATIC HYPOGLYCEMIA PROBABLE INSULIN OVERDOSE ? SEPSIS UTI R/O SEPSIS SECONDARY TO UTI MYELOMA HX HEP C VRE/PSEUDOMONAS COLONIZATION HX MRSA AWAIT C/S EMPIRIC CEFTRIAXONE + STAT DOSE VANCOMYCIN CONTACT PRECAUTIONS
[2019-01-02] MEDS ORDERED: VANCOMYCIN 1,000 MG in DEXTROSE 5%-WATER - 250 ML IVPB ONE (12:21)
--- NOTE | 2019-01-02 12:46 | ECHO ---
Name: SHALONDA ROTH Exam:Adult Echocardiogram Study Date: 01/02/2019 07:49 AM Age: 63 yrs Reason For Study: TROP+ Height: 72 in Weight: 225 lb BSA: 2.2 m2 MMode/2D Measurements & Calculations IVSd: 1.3 cm Ao root diam: 2.7 cm LVIDd: 3.7 cm LA dimension: 3.7 cm LVIDs: 2.8 cm LVPWd: 1.2 cm EDV(Teich): 57.7 ml LVOT diam: 2.0 cm ESV(Teich): 29.0 ml LAV (MOD-bp): 73.4 ml Doppler Measurements & Calculations MV E max darren: 94.6 cm/sec Ao V2 max: 149.3 cm/sec MV A max darren: 69.8 cm/sec Ao max P.9 mmHg MV E/A: 1.4 MV dec time: 0.13 sec BYRON(V,D): 2.3 cm2 LV V1 max P.0 mmHg MR max darren: 374.2 cm/sec LV V1 max: 111.6 cm/sec MR max P.1 mmHg TR max darren: 268.8 cm/sec PA V2 max: 108.6 cm/sec TR max P.9 mmHg PA max P.7 mmHg Med Peak E' Darren: 6.6 cm/sec Med E/e': 14.3 Lat Peak E' Darren: 10.1 cm/sec Lat E/e': 9.4 Procedure A complete two-dimensional transthoracic echocardiogram was performed (2D, M-mode, Doppler and color flow Doppler). Technically limited study. Left Ventricle The left ventricle is normal in size. There is mild concentric left ventricular hypertrophy. Left maggie tricular systolic function is mildly reduced. Ejection Fraction = 45-50%. There is mild global hypokinesis of the left ventricle. Right Ventricle The right ventricle is normal size. The right ventricular systolic function is normal. Atria The left atrial size is normal. Right atrial size is normal. Mitral Valve The mitral valve is normal in structure and function. There is trace to mild mitral regurgitation. Tricuspid Valve The tricuspid valve is normal in structure and function. There is Trace to mild tricuspid regurgitati on. Pulmonary artery systolic pressure is at least 32 mmHg assuming RA pressure of 3 mmHg. Aortic Valve There is mild aortic sclerosis.;. No aortic regurgitation is present. Pulmonic Valve The pulmonic valve is not well visualized. Great Vessels The aortic root is normal size. Pericardium/Pleura There is no pericardial effusion. Interpretation Summary The left ventricle is normal in size. There is mild concentric left ventricular hypertrophy. Left ventricular systolic function is mildly reduced. There is mild global hypokinesis of the left ventricle. Ejection Fraction = 45-50%. The right ventricular systolic function is normal. The left atrial size is normal. Right atrial size is normal. There is trace to mild mitral regurgitation. There is Trace to mild tricuspid regurgitation. Pulmonary artery systolic pressure is at least 32 mmHg assuming RA pressure of 3 mmHg There is mild aortic sclerosis. There is no pericardial effusion. When compared to study dated 11/28/18, no significant changes are seen Brandon Gill MD 01/02/2019 12:46 PM
[2019-01-02] MEDS ORDERED: CEFTRIAXONE 2 GM/100 ML BAG IVPB ONE (13:14)
[2019-01-02] MEDS: CEFTRIAXONE 2 GM in DEXTROSE 5%-WATER 100 ML IVPB SCH (13:21)
--- NOTE | 2019-01-02 13:27 | PN ---
Progress Note, Physician - Current Medication List Current Medications: Active Medications Artificial Tears (Artificial Tears Ointment -) 1 applic OD HS PRN PRN Reason: DRY EYES Aspirin (Asa -) 81 mg PO DAILY [facility] Last Admin: 01/02/19 09:43 Dose: 81 mg Atorvastatin Calcium (Lipitor -) 80 mg PO HS [facility] Last Admin: 01/01/19 22:39 Dose: 80 mg Buspirone HCl (Buspar -) 15 mg PO BID [facility] Last Admin: 01/02/19 09:43 Dose: 15 mg Calcium Carbonate/Cholecalciferol (Os-Kyler 500+D -) 1 tab PO BID [facility] Last Admin: 01/02/19 09:43 Dose: 1 tab Enalapril Maleate (Vasotec -) 20 mg PO DAILY [facility] Last Admin: 01/02/19 09:43 Dose: 20 mg Heparin Sodium (Porcine) (Heparin -) 5,000 unit SQ BID [facility] Last Admin: 01/02/19 09:43 Dose: 5,000 unit Dextrose (D5w -) 1,000 mls @ 42 mls/hr IV ASDIR [facility] Last Admin: 01/02/19 10:38 Dose: Not Given Dextrose (D5w -) 1,000 mls @ 30 mls/hr IV ASDIR [facility] Last Admin: 01/02/19 07:16 Dose: 30 mls/hr Ceftriaxone Sodium 2 gm/ (Dextrose) 100 mls @ 200 mls/hr IVPB DAILY [facility]; Protocol Last Admin: 01/02/19 13:21 Dose: 200 mls/hr Vancomycin HCl 1,000 mg/ (Dextrose) 250 mls @ 166.667 mls/hr IVPB ONCE ONE; Protocol Stop: 01/02/19 13:50 Insulin Aspart (Novolog Vial Sliding Scale -) 1 vial SQ ACHS [facility]; Protocol Last Admin: 01/02/19 12:25 Dose: Not Given Methadone HCl (Dolophine -) 20 mg PO DAILY [facility] Pantoprazole Sodium (Protonix Packets For Oral Suspension -) 40 mg PO DAILY [facility] Last Admin: 01/02/19 09:43 Dose: 40 mg Pyridoxine HCl (Vitamin B6 Injection -) 100 mg IM NOW ONE Stop: 01/02/19 18:38 Fluticasone/Salmeterol (Advair 100mcg/50mcg -) 1 puff IH BID [facility] Last Admin: 01/02/19 10:30 Dose: 1 puff Sertraline HCl (Zoloft -) 50 mg PO DAILY [facility] Last Admin: 01/02/19 09:43 Dose: 50 mg Tamsulosin HCl (Flomax -) 0.4 mg PO DAILY@0830 [facility] Last Admin: 01/02/19 09:28 Dose: 0.4 mg Tiotropium [place] (Spiriva Respimat) 2 puff IH DAILY [facility] Last Admin: 01/02/19 10:31 Dose: 2 puff Valacyclovir HCl (Valtrex -) 500 mg PO DAILY [facility] Last Admin: 01/02/19 09:43 Dose: 500 mg - Objective Vital Signs: Vital Signs Temperature 98.3 F 01/02/19 09:25 Pulse Rate 82 01/02/19 09:25 Respiratory Rate 20 01/02/19 09:25 Blood Pressure 107/69 01/02/19 09:25 O2 Sat by Pulse Oximetry (%) 98 01/02/19 09:25 Labs: CBC, BMP 01/02/19 05:12 01/02/19 05:12 INR, PTT INR 1.19 (0.83-1.09) H 01/01/19 16:40
[2019-01-02] MEDS ORDERED: METHADONE HCL 10 MG TABLET PO ONE (13:50)
--- NOTE | 2019-01-02 13:51 | CONS ---
DATE OF CONSULTATION: DATE OF DICTATION: 01/02/2019 INFECTIOUS DISEASE CONSULTATION The patient is a 63-year-old male who is evaluated for possible sepsis. He was recently discharged from [facility] after a 5-week admission which was complicated by respiratory failure, pneumonia, and sepsis now readmitted with symptomatic hypoglycemia. The patient was admitted to [facility] in November. He was recently diagnosed with multiple myeloma and had received 1 cycle of chemotherapy. He developed respiratory failure and pneumonia requiring ICU admission. Patient was intubated and on mechanical ventilation for several days. He was ultimately discharged and transferred to the floor. He was discharged to a half-way facility for rehabilitation. Patient reports signing out against medical advice shortly before his present admission. He was at home when he states his blood sugar was 190. He took his usual dose of insulin and subsequently developed profound hypoglycemia. Patient became obtunded. EMS was called. He was transferred to the emergency room. Prior to this episode, he denied any complaint. Denied any recent febrile illness. No complaints of chest pain, shortness of breath, cough, or sputum production. No dysuria or hematuria. Denies vomiting or diarrhea. No complaints of any infected skin wounds. PAST MEDICAL HISTORY: Positive for insulin-dependent diabetes mellitus, hypertension, hyperlipidemia, peripheral vascular disease, multiple myeloma, status post recent chemotherapy, chronic kidney disease, history of hepatitis C treated in the past, peripheral vascular disease, and lower extremity ulcers. ALLERGIES: No known allergies. MEDICATIONS: Presently include aspirin Lipitor, BuSpar, calcium, enalapril, hydrocortisone, methadone, Flomax, Valtrex. SOCIAL HISTORY: Lives at home. Positive history of tobacco use. Remote history of cocaine and heroin use. Patient on methadone. SYSTEM REVIEW: Neurologic: No loss of consciousness. Positive for obtundation. No seizure activity or focal weakness. Cardiac: Negative chest pain or palpitations. Respiratory: Negative cough or sputum production. Gastrointestinal: Negative vomiting or diarrhea. Genitourinary: Positive for urinary tract infection. LABORATORY DATA: White count 6.8, hematocrit 24.5, platelet count 166. BUN 31, creatinine 1.8. Live enzymes normal. Urinalysis 1038 white cells. Blood culture and urine culture pending. Chest x-ray negative for acute infiltrate. PHYSICAL EXAMINATION: General: He is awake and alert. He is in no acute distress. Vital Signs: Temperature 98.3, blood pressure 107/69, pulse 82 regular, respirations 20 per minute. Eyes: Sclerae anicteric. Heart: Sounds S1, S2. Lungs: Clear. Abdomen: Soft, nontender. Ecchymotic area noted to right abdomen. Extremities: Negative for edema. Patient is status post amputation of the right fifth toe. IMPRESSION: 1. Symptomatic hypoglycemia likely secondary to insulin overdose. 2. Urinary tract infection, rule out sepsis secondary to urinary tract infection. 3. Recent diagnosis of multiple myeloma. 4. History of hepatitis C treated. 5. History of methicillin-resistant Staphylococcus aureus. 6. 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 RECOMMENDATIONS: Await sepsis workup. Empiric antibiotic coverage with ceftriaxone plus STAT dose vancomycin. Contact precautions. Further recommendations pending cultures. Will follow. Thank you for the kind referral. RUDI HAYNES M.D. JUANIS/[id number]
--- NOTE | 2019-01-02 13:55 | PN ---
Progress Note, Physician Chief Complaint: patient admitted for hypoglycemia per patient he [place] [facility] [place] dose, needs contact isolation - Current Medication List Current Medications: Active Medications Artificial Tears (Artificial Tears Ointment -) 1 applic OD HS PRN PRN Reason: DRY EYES Aspirin (Asa -) 81 mg PO DAILY [facility] Last Admin: 01/02/19 09:43 Dose: 81 mg Atorvastatin Calcium (Lipitor -) 80 mg PO HS [facility] Last Admin: 01/01/19 22:39 Dose: 80 mg Buspirone HCl (Buspar -) 15 mg PO BID [facility] Last Admin: 01/02/19 09:43 Dose: 15 mg Calcium Carbonate/Cholecalciferol (Os-Kyler 500+D -) 1 tab PO BID [facility] Last Admin: 01/02/19 09:43 Dose: 1 tab Enalapril Maleate (Vasotec -) 20 mg PO DAILY [facility] Last Admin: 01/02/19 09:43 Dose: 20 mg Heparin Sodium (Porcine) (Heparin -) 5,000 unit SQ BID [facility] Last Admin: 01/02/19 09:43 Dose: 5,000 unit Dextrose (D5w -) 1,000 mls @ 42 mls/hr IV ASDIR [facility] Last Admin: 01/02/19 10:38 Dose: Not Given Dextrose (D5w -) 1,000 mls @ 30 mls/hr IV ASDIR [facility] Last Admin: 01/02/19 07:16 Dose: 30 mls/hr Ceftriaxone Sodium 2 gm/ (Dextrose) 100 mls @ 200 mls/hr IVPB DAILY [facility]; Protocol Last Admin: 01/02/19 13:21 Dose: 200 mls/hr Insulin Aspart (Novolog Vial Sliding Scale -) 1 vial SQ ACHS [facility]; Protocol Last Admin: 01/02/19 12:25 Dose: Not Given Methadone HCl (Dolophine -) 30 mg PO ONCE ONE Stop: 01/02/19 13:51 Pantoprazole Sodium (Protonix Packets For Oral Suspension -) 40 mg PO DAILY [facility] Last Admin: 01/02/19 09:43 Dose: 40 mg Pyridoxine HCl (Vitamin B6 Injection -) 100 mg IM NOW ONE Stop: 01/02/19 18:38 Fluticasone/Salmeterol (Advair 100mcg/50mcg -) 1 puff IH BID [facility] Last Admin: 01/02/19 10:30 Dose: 1 puff Sertraline HCl (Zoloft -) 50 mg PO DAILY [facility] Last Admin: 01/02/19 09:43 Dose: 50 mg Tamsulosin HCl (Flomax -) 0.4 mg PO DAILY@0830 [facility] Last Admin: 01/02/19 09:28 Dose: 0.4 mg Tiotropium [place] (Spiriva Respimat) 2 puff IH DAILY [facility] Last Admin: 01/02/19 10:31 Dose: 2 puff Valacyclovir HCl (Valtrex -) 500 mg PO DAILY [facility] Last Admin: 01/02/19 09:43 Dose: 500 mg - Objective Vital Signs: Vital Signs Temperature 98.3 F 01/02/19 09:25 Pulse Rate 82 01/02/19 09:25 Respiratory Rate 20 01/02/19 09:25 Blood Pressure 107/69 01/02/19 09:25 O2 Sat by Pulse Oximetry (%) 98 01/02/19 09:25 Constitutional: Yes: Calm Cardiovascular: Yes: Regular Rate and Rhythm, S1, S2 Respiratory: Yes: Diminished Gastrointestinal: Yes: Normal Bowel Sounds, Soft Edema: No Neurological: Yes: Alert Labs: CBC, BMP 01/02/19 05:12 01/02/19 05:12 INR, PTT INR 1.19 (0.83-1.09) H 01/01/19 16:40 Problem List - Problems (1) Hypoglycemia Code(s): E16.2 - HYPOGLYCEMIA, UNSPECIFIED (2) Elevated troponin Assessment/Plan: telemetry cardiology trend troponin asprin lipitor low BP noted Code(s): R74.8 - ABNORMAL LEVELS OF OTHER SERUM ENZYMES (3) Narcotic dependence Assessment/Plan: prior IVDA taper methadone dose today will give 30mg and then from tmw decrease to 20mg daily [place] [facility] [place] Code(s): F11.20 - OPIOID DEPENDENCE, UNCOMPLICATED (4) Constipation Assessment/Plan: relistor Code(s): K59.00 - CONSTIPATION, UNSPECIFIED (5) CKD (chronic kidney disease) Assessment/Plan: renal folow up Code(s): N18.9 - CHRONIC KIDNEY DISEASE, UNSPECIFIED Assessment/Plan dvt ppx
--- NOTE | 2019-01-02 13:59 | CON.CARD ---
Consult Consult Specialty:: Cardiology Reason for Consultation:: Elevated TP - History of Present Illness History of Present Illness: 63 yo man recently diagnosed with multJavier gary, recently discharged from inpatient- (was in ICU intubated for pneumonia and respiratory failure) to rehab facility. He signed himself out of rehab this morning and took insulin sc dose and was later found to be obtunded and diaphoretic, shakey, glucometer was not readable. He was then brought to the hospital and received d50 IV, after which his mental status returned to baseline. Noted to have elevated TP level. Echocardiogram showed EF 45-50% without regional variability. Unchanged from echo done 11/2018. ECG with anterior wall T wave inversions. No chest pain or dyspnea. 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 distribution related to DM) Cardio/Vascular: Yes: HTN, Hyperlipdemia Pulmonary: Yes: Asthma, Other (left chest tube for rib fracture related pneumothorax afte a fall) Gastrointestinal: Yes: Constipation Hepatobiliary: Yes: Hepatitis C (cured several years ago with Dr Bedolla) Renal/: Yes: Renal Inusuff Infectious Disease: Yes: Other (Hepatitis C cured) Psych: Yes: Depression Musculoskeletal: Yes: Chronic low back pain, Other (multiple thoracolumbar vertebral fractures) Endocrine: Yes: Diabetes Mellitus Dermatology: Yes: Other (varicose veins) Additional Medical History: Laser therapy for diabetic retinopathy - Past Surgical History Past Surgical History: Yes: Amputation (5th digit R foot), Tonsillectomy - Alcohol/Substance Use Hx Alcohol Use: No History of Substance Use: reports: None (snorted), Cocaine, Heroin (sorteh) - Smoking History Smoking history: Current every day smoker Have you smoked in the past 12 months: No If you are a former smoker, when did you quit?: 1996 - Social History Usual Living Arrangement: With Spouse ADL: Independent 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 History of Recent Travel: Yes (to [place] in past 2 weeks ) Home Medications - Allergies Allergies/Adverse Reactions: Allergies Allergy/AdvReac Type Severity Reaction Status Date / Time No Known Allergies Allergy Verified 01/01/19 16:16 - Home Medications Home Medications: Ambulatory Orders Insulin Glargine,Hum.rec.anlog [Lantus (10mL VIAL) -] 40 unit SQ HS 06/07/15 Acetaminophen [Tylenol .Regular Strength -] 650 mg PO Q6H PRN #0 tablet Buspirone HCl 15 mg PO BID 07/22/18 Ammonium Lactate Lotion [Lac-Hydrin 12] 1 applic TP BID PRN bottle 12/21/18 Aspirin [ASA -] 81 mg PO DAILY tab.chew 12/21/18 Atorvastatin Ca [Lipitor] 80 mg PO HS tablet 12/21/18 Calcium 500Mg/Vit-D 200 Units [Os-Kyler 500+D -] 2 tab PO DAILY tab 12/21/18 Heparin - 5,000 unit SQ BID vial 12/21/18 Insulin Sliding Scale [Novolog Vial Sliding Scale -] 1 vial SQ TIDAC units Methadone HCl 20 mg PO DAILY #60 tablet MDD 2 12/21/18 Metoprolol Tartrate [Lopressor -] 25 mg PO BID tablet 12/21/18 Nystatin Oral Suspension - [Nystatin Oral Susp 067758 Units/5 ML -] 500,000 units PO Q6HPO cup 12/21/18 Ocular Lubricant Ophth Oint [Lacri-Lube S.o.p -] 1 applic OD HS PRN tube Pantoprazole Suspension [Protonix Packets For Oral Suspension -] 40 mg PO DAILY packet 12/21/18 Polyethylene Glycol 3350 [Miralax 119 gm Btl -] 17 gm PO BID bottle 12/21/18 Tamsulosin HCl [Flomax -] 0.8 mg PO DAILY@0830 cap.er.24h 12/21/18 Tiotropium [place] [Spiriva Respimat] 2 puff IH DAILY inhaler 12/21/18 Family Disease History - Family Disease History Family Disease History: CA: Mother, Other: Father ( 90 natural causes), Mother, Brother Review of Systems - Review of Systems Constitutional: reports: No Symptoms Eyes: reports: No Symptoms HENT: reports: No Symptoms Neck: reports: No Symptoms Cardiovascular: denies: Chest Pain, Edema, Palpitations, Shortness of Breath Respiratory: reports: No Symptoms Gastrointestinal: reports: No Symptoms Vital Signs: Vital Signs Temperature 98.3 F 01/02/19 09:25 Pulse Rate 82 01/02/19 09:25 Respiratory Rate 20 01/02/19 09:25 Blood Pressure 107/69 01/02/19 09:25 O2 Sat by Pulse Oximetry (%) 98 01/02/19 09:25 Constitutional: Yes: Well Nourished, No Distress Eyes: Yes: Conjunctiva Clear HENT: Yes: Atraumatic, Normocephalic Neck: Yes: Supple, Trachea Midline Respiratory: Yes: Regular, CTA Bilaterally Gastrointestinal: Yes: Normal Bowel Sounds Cardiovascular: Yes: Regular Rate and Rhythm JVD: No Carotid Bruit: No PMI: Non-Displaced Heart Sounds: Yes: S1, S2 Murmur: No: Systolic Murmur, Diastolic Murmur Edema: No - Other Data Labs, Other Data: CBC, BMP 01/02/19 05:12 01/02/19 05:12 INR, PTT INR 1.19 (0.83-1.09) H 01/01/19 16:40 Troponin, BNP 01/01/19 01/02/19 01/02/19 16:40 03:02 05:12 Troponin I 0.41 H 0.15 H 0.17 H Troponin, BNP 01/01/19 01/02/19 01/02/19 16:40 03:02 05:12 Troponin I 0.41 H 0.15 H 0.17 H Problem List - Problems (1) NSTEMI (non-ST elevated myocardial infarction) Code(s): I21.4 - NON-ST ELEVATION (NSTEMI) MYOCARDIAL INFARCTION Assessment/Plan 63 yo man with mult. mylemona, DM, CKD, recently discharged from inpatient- ( was in ICU intubated for pneumonia and respiratory failure) to rehab facility. He signed himself out of rehab this morning and took insulin sc dose and was later found to be obtunded and diaphoretic, shakey, glucometer was not readable. He was then brought to the hospital and received d50 IV, after which his mental status returned to baseline. Noted to have elevated TP level. Echocardiogram showed EF 45-50% without regional variability. Unchanged from echo done 11/2018. ECG with anterior wall T wave inversions. No chest pain or dyspnea. NSTEMI due to iatrogenic hypoglycema and Type II MT. Stable CAD with mildly reduced LV systolic function unchanged from previous and recent testing. Recommend continueing with medical therapy for stable CAD. Cont. ASA, statin and ACEI. Consider beta blockade. No further cardiac testing is indicated and no araseli for systemic anticoagulation in the setting of demand mediated myocardial injury. Will see Prn
[2019-01-02] MEDS ORDERED: METHADONE HCL 10 MG TABLET ONE (14:06)
--- NOTE | 2019-01-02 14:29 | CONSULT ---
Consultation: CONSULT REQUEST: Nephrology HISTORY OF PRESENT ILLNESS: Patient is a 63 yo M with a pmhx of CKD, HTN, Multiple Myeloma, HLD, DM, Hep C treated with harvoni, and substance abuse on methadone, recently discharged on for PNA and respiratory failure s/p intubation and discharged to rehab facility. He signed himself out of rehab yesterday and took insulin sc dose and was later found to be obtunded, diaphoretic and shakey. EMS came and glucometer was not readable at the time. He was then brought to the hospital and received d50 IV, after which his mental status returned to baseline. Patient currently denies any symptoms and says he feels he is back at baseline. Denies sob, headache, nausea, vomiting, urinary symptoms, diarrhea, fevers, cough, dizziness. REVIEW OF SYSTEMS: CONSTITUTIONAL: Absent: fever, chills, diaphoresis, generalized weakness, malaise, loss of appetite, weight change HEENT: Absent: rhinorrhea, nasal congestion, throat pain, throat swelling, difficulty swallowing, mouth swelling, ear pain, eye pain, visual changes CARDIOVASCULAR: Absent: chest pain, syncope, palpitations, irregular heart rate, lightheadedness , peripheral edema RESPIRATORY: Absent: cough, shortness of breath, dyspnea with exertion, orthopnea, wheezing, stridor, hemoptysis GASTROINTESTINAL: Absent: abdominal pain, abdominal distension, nausea, vomiting, diarrhea, constipation, melena, hematochezia GENITOURINARY: Absent: dysuria, frequency, urgency, hesitancy, hematuria, flank pain, genital pain ENDOCRINE: Absent: unexplained weight gain, unexplained weight loss, heat intolerance, cold intolerance NEUROLOGIC: Absent: headache, focal weakness or paresthesias, dizziness, unsteady gait, seizure, mental status changes, bladder or bowel incontinence PHYSICAL EXAMINATION Vital Signs - 24 hr 01/01/19 01/01/19 01/01/19 16:16 17:15 17:19 Temperature 98.1 F 97 F L 97 F L Pulse Rate 72 Pulse Rate [ 61 Apical] Respiratory 16 Rate Blood Pressure 85/54 L Blood Pressure 85/56 L [Left Arm] O2 Sat by Pulse 100 100 Oximetry (%) 01/01/19 01/01/19 01/02/19 17:24 21:07 06:35 Temperature Pulse Rate Pulse Rate [ 63 85 Apical] Respiratory 20 16 Rate Blood Pressure Blood Pressure 98/64 99/45 L [Left Arm] O2 Sat by Pulse 100 98 Oximetry (%) 01/02/19 01/02/19 01/02/19 06:38 07:20 09:25 Temperature 98.3 F Pulse Rate Pulse Rate [ 86 82 Apical] Respiratory 21 H 20 Rate Blood Pressure Blood Pressure 105/61 107/69 [Left Arm] O2 Sat by Pulse 98 98 98 Oximetry (%) 01/02/19 14:00 Temperature 97.9 F Pulse Rate Pulse Rate [ 112 H Apical] Respiratory 18 Rate Blood Pressure Blood Pressure 99/63 [Left Arm] O2 Sat by Pulse 98 Oximetry (%) GENERAL: A/o x 3, NAD EYES: Pupils equal, round and reactive to light, extraocular movements intact, sclera anicteric, conjunctiva clear. EARS, NOSE, THROAT: oropharynx clear without exudates. Moist mucous membranes. NECK: supple without lymphadenopathy, JVD, or masses. LUNGS: Breath sounds equal, clear to auscultation bilaterally. No wheezes, and no crackles. HEART: RRR, MGR ABDOMEN: Soft, nontender, not distended, normoactive bowel sounds, no guarding, no rebound, no masses LOWER EXTREMITIES: 2+ pulses, No peripheral edema. NEUROLOGICAL: Cranial nerves II-XII intact. Normal speech. Laboratory Results - last 24 hr 01/01/19 01/01/19 01/01/19 16:40 16:40 16:40 WBC 6.7 RBC 2.99 L Hgb 8.9 L Hct 26.7 L MCV 89.4 MCH 29.8 MCHC 33.3 RDW 18.9 H Plt Count 194 MPV 7.4 L Absolute Neuts (auto) 5.6 Neutrophils % 83.5 H Lymphocytes % 11.1 D Monocytes % 4.4 Eosinophils % 0.8 Basophils % 0.2 Nucleated RBC % 0 PT with INR 14.10 H INR 1.19 H PTT (Actin FS) 36.2 VBG pH POC VBG pCO2 POC VBG pO2 VBG HCO3 VBG O2 Sat (Martin) VBG Base Excess Sodium Potassium Chloride Carbon Dioxide Anion Gap BUN Creatinine Creat Clearance w eGFR POC Glucometer Random Glucose Lactic Acid Calcium Total Bilirubin AST ALT Alkaline Phosphatase Creatine Kinase Troponin I Total Protein Albumin TSH Free T4 Urine Color Yellow Urine Appearance Turbid Urine pH 5.0 Ur Specific [place] 1.024 Urine Protein 3+ H Urine Glucose (UA) Negative Urine Ketones Trace H Urine Blood 3+ H Urine Nitrite Negative Urine Bilirubin Negative Urine Urobilinogen 1.0 Ur Leukocyte Esterase 3+ H Urine WBC (Auto) 1048 Urine RBC (Auto) 32.3 Urine Casts (Auto) 52 U Epithel Cells (Auto) 11.9 Urine Bacteria (Auto) 3902.6 01/01/19 01/01/19 01/01/19 16:40 16:40 16:40 WBC RBC Hgb Hct MCV MCH MCHC RDW Plt Count MPV Absolute Neuts (auto) Neutrophils % Lymphocytes % Monocytes % Eosinophils % Basophils % Nucleated RBC % PT with INR INR PTT (Actin FS) VBG pH 7.21 L POC VBG pCO2 49.8 POC VBG pO2 64.1 H VBG HCO3 19.2 L VBG O2 Sat (Martin) 87.3 H VBG Base Excess -7.8 L Sodium 139 Potassium 4.9 Chloride 110 H Carbon Dioxide 19 L Anion Gap 10 BUN 33 H Creatinine 1.9 H Creat Clearance w eGFR 35.76 POC Glucometer Random Glucose 14 L* Lactic Acid 1.1 Calcium 7.8 L Total Bilirubin 0.1 L AST 18 ALT 23 Alkaline Phosphatase 112 Creatine Kinase Troponin I Total Protein 6.3 L Albumin 2.9 L TSH Free T4 Urine Color Urine Appearance Urine pH Ur Specific [place] Urine Protein Urine Glucose (UA) Urine Ketones Urine Blood Urine Nitrite Urine Bilirubin Urine Urobilinogen Ur Leukocyte Esterase Urine WBC (Auto) Urine RBC (Auto) Urine Casts (Auto) U Epithel Cells (Auto) Urine Bacteria (Auto) 01/01/19 01/01/19 01/01/19 16:40 16:52 18:04 WBC RBC Hgb Hct MCV MCH MCHC RDW Plt Count MPV Absolute Neuts (auto) Neutrophils % Lymphocytes % Monocytes % Eosinophils % Basophils % Nucleated RBC % PT with INR INR PTT (Actin FS) VBG pH POC VBG pCO2 POC VBG pO2 VBG HCO3 VBG O2 Sat (Martin) VBG Base Excess Sodium Potassium Chloride Carbon Dioxide Anion Gap BUN Creatinine Creat Clearance w eGFR POC Glucometer < 10 224 Random Glucose Lactic Acid Calcium Total Bilirubin AST ALT Alkaline Phosphatase Creatine Kinase Troponin I 0.41 H Total Protein Albumin TSH Free T4 Urine Color Urine Appearance Urine pH Ur Specific [place] Urine Protein Urine Glucose (UA) Urine Ketones Urine Blood Urine Nitrite Urine Bilirubin Urine Urobilinogen Ur Leukocyte Esterase Urine WBC (Auto) Urine RBC (Auto) Urine Casts (Auto) U Epithel Cells (Auto) Urine Bacteria (Auto) 01/01/19 01/01/19 01/01/19 18:45 20:07 20:57 WBC RBC Hgb Hct MCV MCH MCHC RDW Plt Count MPV Absolute Neuts (auto) Neutrophils % Lymphocytes % Monocytes % Eosinophils % Basophils % Nucleated RBC % PT with INR INR PTT (Actin FS) VBG pH POC VBG pCO2 POC VBG pO2 VBG HCO3 VBG O2 Sat (Martin) VBG Base Excess Sodium Potassium Chloride Carbon Dioxide Anion Gap BUN Creatinine Creat Clearance w eGFR POC Glucometer 137 119 119 Random Glucose Lactic Acid Calcium Total Bilirubin AST ALT Alkaline Phosphatase Creatine Kinase Troponin I Total Protein Albumin TSH Free T4 Urine Color Urine Appearance Urine pH Ur Specific [place] Urine Protein Urine Glucose (UA) Urine Ketones Urine Blood Urine Nitrite Urine Bilirubin Urine Urobilinogen Ur Leukocyte Esterase Urine WBC (Auto) Urine RBC (Auto) Urine Casts (Auto) U Epithel Cells (Auto) Urine Bacteria (Auto) 01/01/19 01/01/19 01/02/19 21:16 21:20 01:14 WBC RBC Hgb Hct MCV MCH MCHC RDW Plt Count MPV Absolute Neuts (auto) Neutrophils % Lymphocytes % Monocytes % Eosinophils % Basophils % Nucleated RBC % PT with INR INR PTT (Actin FS) VBG pH POC VBG pCO2 POC VBG pO2 VBG HCO3 VBG O2 Sat (Martin) VBG Base Excess Sodium Potassium Chloride Carbon Dioxide Anion Gap BUN Creatinine Creat Clearance w eGFR POC Glucometer 156 Random Glucose Lactic Acid 1.4 Calcium Total Bilirubin AST ALT Alkaline Phosphatase Creatine Kinase Troponin I Total Protein Albumin TSH 0.87 D Free T4 1.12 Urine Color Urine Appearance Urine pH Ur Specific [place] Urine Protein Urine Glucose (UA) Urine Ketones Urine Blood Urine Nitrite Urine Bilirubin Urine Urobilinogen Ur Leukocyte Esterase Urine WBC (Auto) Urine RBC (Auto) Urine Casts (Auto) U Epithel Cells (Auto) Urine Bacteria (Auto) 01/02/19 01/02/19 01/02/19 03:02 05:12 05:12 WBC 6.8 RBC 2.75 L Hgb 7.9 L Hct 24.5 L MCV 89.3 MCH 28.7 MCHC 32.1 RDW 19.1 H Plt Count 166 MPV 7.1 L Absolute Neuts (auto) Neutrophils % Lymphocytes % Monocytes % Eosinophils % Basophils % Nucleated RBC % PT with INR INR PTT (Actin FS) VBG pH POC VBG pCO2 POC VBG pO2 VBG HCO3 VBG O2 Sat (Martin) VBG Base Excess Sodium 135 L Potassium 5.6 H Chloride 108 H Carbon Dioxide 20 L Anion Gap 7 L BUN 31 H Creatinine 1.8 H Creat Clearance w eGFR 38.06 POC Glucometer Random Glucose 106 Lactic Acid Calcium 6.7 L* Total Bilirubin 0.2 AST 13 L ALT 15 Alkaline Phosphatase 87 Creatine Kinase 36 26 Troponin I 0.15 H 0.17 H Total Protein 5.2 L Albumin 2.3 L TSH Free T4 Urine Color Urine Appearance Urine pH Ur Specific [place] Urine Protein Urine Glucose (UA) Urine Ketones Urine Blood Urine Nitrite Urine Bilirubin Urine Urobilinogen Ur Leukocyte Esterase Urine WBC (Auto) Urine RBC (Auto) Urine Casts (Auto) U Epithel Cells (Auto) Urine Bacteria (Auto) 01/02/19 01/02/19 06:26 12:24 WBC RBC Hgb Hct MCV MCH MCHC RDW Plt Count MPV Absolute Neuts (auto) Neutrophils % Lymphocytes % Monocytes % Eosinophils % Basophils % Nucleated RBC % PT with INR INR PTT (Actin FS) VBG pH POC VBG pCO2 POC VBG pO2 VBG HCO3 VBG O2 Sat (Martin) VBG Base Excess Sodium Potassium Chloride Carbon Dioxide Anion Gap BUN Creatinine Creat Clearance w eGFR POC Glucometer 87 90 Random Glucose Lactic Acid Calcium Total Bilirubin AST ALT Alkaline Phosphatase Creatine Kinase Troponin I Total Protein Albumin TSH Free T4 Urine Color Urine Appearance Urine pH Ur Specific [place] Urine Protein Urine Glucose (UA) Urine Ketones Urine Blood Urine Nitrite Urine Bilirubin Urine Urobilinogen Ur Leukocyte Esterase Urine WBC (Auto) Urine RBC (Auto) Urine Casts (Auto) U Epithel Cells (Auto) Urine Bacteria (Auto) Active Medications Generic Name Dose Route Start Last Admin Trade Name Freq PRN Reason Stop Dose Admin Artificial Tears 1 applic 01/01/19 19:22 Artificial Tears Ointment - OD HS PRN DRY EYES Aspirin 81 mg 01/02/19 10:00 01/02/19 09:43 Asa - PO 81 mg DAILY YAKOV Administration Atorvastatin Calcium 80 mg 01/01/19 22:00 01/01/19 22:39 Lipitor - PO 80 mg HS YAKOV Administration Buspirone HCl 15 mg 01/01/19 22:00 01/02/19 09:43 Buspar - PO 15 mg BID YAKOV Administration Calcium Carbonate/Cholecalciferol 1 tab 01/02/19 10:00 01/02/19 09:43 Os-Kyler 500+D - PO 1 tab BID YAKOV Administration Enalapril Maleate 20 mg 01/02/19 10:00 01/02/19 09:43 Vasotec - PO 20 mg DAILY YAKOV Administration Heparin Sodium (Porcine) 5,000 unit 01/01/19 22:00 01/02/19 09:43 Heparin - SQ 5,000 unit BID YAKOV Administration Dextrose 1,000 mls @ 42 mls/hr 01/01/19 19:30 01/02/19 10:38 D5w - IV Not Given ASDIR YAKOV Dextrose 1,000 mls @ 30 mls/hr 01/02/19 07:00 01/02/19 07:16 D5w - IV 30 mls/hr ASDIR YAKOV Administration Ceftriaxone Sodium 2 gm/ 100 mls @ 200 mls/hr 01/02/19 12:30 01/02/19 13:21 Dextrose IVPB 200 mls/hr DAILY YAKOV Administration Protocol Insulin Aspart 1 vial 01/01/19 22:00 01/02/19 12:25 Novolog Vial Sliding Scale - SQ Not Given ACHS YAKOV Protocol Methylnaltrexone [place] 8 mg 01/04/19 10:00 Relistor - SQ Q2D@1000 YAKOV Pantoprazole Sodium 40 mg 01/02/19 10:00 01/02/19 09:43 Protonix Packets For Oral Suspension - PO 40 mg DAILY YAKOV Administration Pyridoxine HCl 100 mg 01/02/19 18:37 Vitamin B6 Injection - IM 01/02/19 18:38 NOW ONE Fluticasone/Salmeterol 1 puff 01/01/19 22:00 01/02/19 10:30 Advair 100mcg/50mcg - IH 1 puff BID YAKOV Administration Sertraline HCl 50 mg 01/02/19 10:00 01/02/19 09:43 Zoloft - PO 50 mg DAILY YAKOV Administration Tamsulosin HCl 0.4 mg 01/02/19 08:30 01/02/19 09:28 Flomax - PO 0.4 mg DAILY@0830 YAKOV Administration Tiotropium [place] 2 puff 01/02/19 10:00 01/02/19 10:31 Spiriva Respimat IH 2 puff DAILY YAKOV Administration Valacyclovir HCl 500 mg 01/02/19 10:00 01/02/19 09:43 Valtrex - PO 500 mg DAILY YAKOV Administration ASSESSMENT/PLAN: #CKD #Symptomatic Hypoglycemia #HTN #DM #Multiple Myeloma #Hyponatremia #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 IV fluids -On Abx per ID -Avoid Nephrotoxins -Hold enalepril if K is high -Multiple myeloma: follows w/ Dr. Grady as outpatient -Contact precautions Dispo: We will continue to follow the patient. Thank you for this consultative opportunity. Visit type - Emergency Visit Emergency Visit: Yes ED Registration Date: 01/01/19 Care time: The patient presented to the Emergency Department on the above date and was hospitalized for further evaluation of their emergent condition. - New Patient This patient is new to me today: Yes Date on this admission: 01/02/19 - Critical Care Critical Care patient: No
--- NOTE | 2019-01-02 14:50 | CONSULT ---
Consultation: HEMATOLOGY/ONCOLOGY CONSULTATION: RESIDENT CONSULT REQUEST: We have been asked to medically evaluate this patient for multiple myeloma HISTORY OF PRESENT ILLNESS: 63 year old male with a past medical history of hypertension, hyperlipidemia, IDDM, Hep C (on Harvoni), PVD/LE ulcers, opioid use (on methadone), and recent dx of multiple myeloma was brought in by ambulance for hypoglycemia. Was recently discharged from the hospital after prolonged ICU stay to a rehab facility, from which he signed himself out, took insulin himself without checking his blood glucose first, and became confused, diaphoretic. Currently improved, feels at baseline. No current complaints. Being treated for MM as an outpatient, recently changed medications for multiple myeloma to revlimid/ dexamethasone as outpatient by Dr. Grady. REVIEW OF SYSTEMS: CONSTITUTIONAL: Absent: fever, chills, diaphoresis, generalized weakness, malaise, loss of appetite, weight change HEENT: Absent: rhinorrhea, nasal congestion, throat pain, throat swelling, difficulty swallowing, mouth swelling, ear pain, eye pain, visual changes CARDIOVASCULAR: Absent: chest pain, syncope, palpitations, irregular heart rate, lightheadedness , peripheral edema RESPIRATORY: Absent: cough, shortness of breath, dyspnea with exertion, orthopnea, wheezing, stridor, hemoptysis GASTROINTESTINAL: Absent: abdominal pain, abdominal distension, nausea, vomiting, diarrhea, constipation, melena, hematochezia GENITOURINARY: Absent: dysuria, frequency, urgency, hesitancy, hematuria, flank pain, genital pain MUSCULOSKELETAL: Absent: myalgia, arthralgia, joint swelling, back pain, neck pain SKIN: Absent: rash, itching, pallor HEMATOLOGIC/IMMUNOLOGIC: Absent: easy bleeding, easy bruising, lymphadenopathy, frequent infections ENDOCRINE: Absent: unexplained weight gain, unexplained weight loss, heat intolerance, cold intolerance NEUROLOGIC: Absent: headache, focal weakness or paresthesias, dizziness, unsteady gait, seizure, mental status changes, bladder or bowel incontinence PSYCHIATRIC: Absent: anxiety, depression, suicidal or homicidal ideation, hallucinations. PHYSICAL EXAMINATION Vital Signs - 24 hr 01/01/19 01/01/19 01/01/19 16:16 17:15 17:19 Temperature 98.1 F 97 F L 97 F L Pulse Rate 72 Pulse Rate [ 61 Apical] Respiratory 16 Rate Blood Pressure 85/54 L Blood Pressure 85/56 L [Left Arm] O2 Sat by Pulse 100 100 Oximetry (%) 01/01/19 01/01/19 01/02/19 17:24 21:07 06:35 Temperature Pulse Rate Pulse Rate [ 63 85 Apical] Respiratory 20 16 Rate Blood Pressure Blood Pressure 98/64 99/45 L [Left Arm] O2 Sat by Pulse 100 98 Oximetry (%) 01/02/19 01/02/19 01/02/19 06:38 07:20 09:25 Temperature 98.3 F Pulse Rate Pulse Rate [ 86 82 Apical] Respiratory 21 H 20 Rate Blood Pressure Blood Pressure 105/61 107/69 [Left Arm] O2 Sat by Pulse 98 98 98 Oximetry (%) 01/02/19 14:00 Temperature 97.9 F Pulse Rate Pulse Rate [ 112 H Apical] Respiratory 18 Rate Blood Pressure Blood Pressure 99/63 [Left Arm] O2 Sat by Pulse 98 Oximetry (%) GENERAL: A&Ox3, no acute distress EYES: PERRLA, EOMI ENT: Moist mucus membranes NECK: No JVD LUNGS: CTA, no wheezes HEART: RRR, no murmurs ABDOMEN: Soft, nontender, BS present MUSCULOSKELETAL: No CVA Tenderness EXTREMITIES: 2+ pulses, no edema. NEUROLOGICAL: Cranial nerves II-XII intact. Laboratory Results - last 24 hr 01/01/19 01/01/19 01/01/19 16:40 16:40 16:40 WBC 6.7 RBC 2.99 L Hgb 8.9 L Hct 26.7 L MCV 89.4 MCH 29.8 MCHC 33.3 RDW 18.9 H Plt Count 194 MPV 7.4 L Absolute Neuts (auto) 5.6 Neutrophils % 83.5 H Lymphocytes % 11.1 D Monocytes % 4.4 Eosinophils % 0.8 Basophils % 0.2 Nucleated RBC % 0 PT with INR 14.10 H INR 1.19 H PTT (Actin FS) 36.2 VBG pH POC VBG pCO2 POC VBG pO2 VBG HCO3 VBG O2 Sat (Martin) VBG Base Excess Sodium Potassium Chloride Carbon Dioxide Anion Gap BUN Creatinine Creat Clearance w eGFR POC Glucometer Random Glucose Lactic Acid Calcium Total Bilirubin AST ALT Alkaline Phosphatase Creatine Kinase Troponin I Total Protein Albumin TSH Free T4 Urine Color Yellow Urine Appearance Turbid Urine pH 5.0 Ur Specific [place] 1.024 Urine Protein 3+ H Urine Glucose (UA) Negative Urine Ketones Trace H Urine Blood 3+ H Urine Nitrite Negative Urine Bilirubin Negative Urine Urobilinogen 1.0 Ur Leukocyte Esterase 3+ H Urine WBC (Auto) 1048 Urine RBC (Auto) 32.3 Urine Casts (Auto) 52 U Epithel Cells (Auto) 11.9 Urine Bacteria (Auto) 3902.6 01/01/19 01/01/19 01/01/19 16:40 16:40 16:40 WBC RBC Hgb Hct MCV MCH MCHC RDW Plt Count MPV Absolute Neuts (auto) Neutrophils % Lymphocytes % Monocytes % Eosinophils % Basophils % Nucleated RBC % PT with INR INR PTT (Actin FS) VBG pH 7.21 L POC VBG pCO2 49.8 POC VBG pO2 64.1 H VBG HCO3 19.2 L VBG O2 Sat (Martin) 87.3 H VBG Base Excess -7.8 L Sodium 139 Potassium 4.9 Chloride 110 H Carbon Dioxide 19 L Anion Gap 10 BUN 33 H Creatinine 1.9 H Creat Clearance w eGFR 35.76 POC Glucometer Random Glucose 14 L* Lactic Acid 1.1 Calcium 7.8 L Total Bilirubin 0.1 L AST 18 ALT 23 Alkaline Phosphatase 112 Creatine Kinase Troponin I Total Protein 6.3 L Albumin 2.9 L TSH Free T4 Urine Color Urine Appearance Urine pH Ur Specific [place] Urine Protein Urine Glucose (UA) Urine Ketones Urine Blood Urine Nitrite Urine Bilirubin Urine Urobilinogen Ur Leukocyte Esterase Urine WBC (Auto) Urine RBC (Auto) Urine Casts (Auto) U Epithel Cells (Auto) Urine Bacteria (Auto) 01/01/19 01/01/19 01/01/19 16:40 16:52 18:04 WBC RBC Hgb Hct MCV MCH MCHC RDW Plt Count MPV Absolute Neuts (auto) Neutrophils % Lymphocytes % Monocytes % Eosinophils % Basophils % Nucleated RBC % PT with INR INR PTT (Actin FS) VBG pH POC VBG pCO2 POC VBG pO2 VBG HCO3 VBG O2 Sat (Martin) VBG Base Excess Sodium Potassium Chloride Carbon Dioxide Anion Gap BUN Creatinine Creat Clearance w eGFR POC Glucometer < 10 224 Random Glucose Lactic Acid Calcium Total Bilirubin AST ALT Alkaline Phosphatase Creatine Kinase Troponin I 0.41 H Total Protein Albumin TSH Free T4 Urine Color Urine Appearance Urine pH Ur Specific [place] Urine Protein Urine Glucose (UA) Urine Ketones Urine Blood Urine Nitrite Urine Bilirubin Urine Urobilinogen Ur Leukocyte Esterase Urine WBC (Auto) Urine RBC (Auto) Urine Casts (Auto) U Epithel Cells (Auto) Urine Bacteria (Auto) 01/01/19 01/01/19 01/01/19 18:45 20:07 20:57 WBC RBC Hgb Hct MCV MCH MCHC RDW Plt Count MPV Absolute Neuts (auto) Neutrophils % Lymphocytes % Monocytes % Eosinophils % Basophils % Nucleated RBC % PT with INR INR PTT (Actin FS) VBG pH POC VBG pCO2 POC VBG pO2 VBG HCO3 VBG O2 Sat (Martin) VBG Base Excess Sodium Potassium Chloride Carbon Dioxide Anion Gap BUN Creatinine Creat Clearance w eGFR POC Glucometer 137 119 119 Random Glucose Lactic Acid Calcium Total Bilirubin AST ALT Alkaline Phosphatase Creatine Kinase Troponin I Total Protein Albumin TSH Free T4 Urine Color Urine Appearance Urine pH Ur Specific [place] Urine Protein Urine Glucose (UA) Urine Ketones Urine Blood Urine Nitrite Urine Bilirubin Urine Urobilinogen Ur Leukocyte Esterase Urine WBC (Auto) Urine RBC (Auto) Urine Casts (Auto) U Epithel Cells (Auto) Urine Bacteria (Auto) 01/01/19 01/01/19 01/02/19 21:16 21:20 01:14 WBC RBC Hgb Hct MCV MCH MCHC RDW Plt Count MPV Absolute Neuts (auto) Neutrophils % Lymphocytes % Monocytes % Eosinophils % Basophils % Nucleated RBC % PT with INR INR PTT (Actin FS) VBG pH POC VBG pCO2 POC VBG pO2 VBG HCO3 VBG O2 Sat (Martin) VBG Base Excess Sodium Potassium Chloride Carbon Dioxide Anion Gap BUN Creatinine Creat Clearance w eGFR POC Glucometer 156 Random Glucose Lactic Acid 1.4 Calcium Total Bilirubin AST ALT Alkaline Phosphatase Creatine Kinase Troponin I Total Protein Albumin TSH 0.87 D Free T4 1.12 Urine Color Urine Appearance Urine pH Ur Specific [place] Urine Protein Urine Glucose (UA) Urine Ketones Urine Blood Urine Nitrite Urine Bilirubin Urine Urobilinogen Ur Leukocyte Esterase Urine WBC (Auto) Urine RBC (Auto) Urine Casts (Auto) U Epithel Cells (Auto) Urine Bacteria (Auto) 01/02/19 01/02/19 01/02/19 03:02 05:12 05:12 WBC 6.8 RBC 2.75 L Hgb 7.9 L Hct 24.5 L MCV 89.3 MCH 28.7 MCHC 32.1 RDW 19.1 H Plt Count 166 MPV 7.1 L Absolute Neuts (auto) Neutrophils % Lymphocytes % Monocytes % Eosinophils % Basophils % Nucleated RBC % PT with INR INR PTT (Actin FS) VBG pH POC VBG pCO2 POC VBG pO2 VBG HCO3 VBG O2 Sat (Martin) VBG Base Excess Sodium 135 L Potassium 5.6 H Chloride 108 H Carbon Dioxide 20 L Anion Gap 7 L BUN 31 H Creatinine 1.8 H Creat Clearance w eGFR 38.06 POC Glucometer Random Glucose 106 Lactic Acid Calcium 6.7 L* Total Bilirubin 0.2 AST 13 L ALT 15 Alkaline Phosphatase 87 Creatine Kinase 36 26 Troponin I 0.15 H 0.17 H Total Protein 5.2 L Albumin 2.3 L TSH Free T4 Urine Color Urine Appearance Urine pH Ur Specific [place] Urine Protein Urine Glucose (UA) Urine Ketones Urine Blood Urine Nitrite Urine Bilirubin Urine Urobilinogen Ur Leukocyte Esterase Urine WBC (Auto) Urine RBC (Auto) Urine Casts (Auto) U Epithel Cells (Auto) Urine Bacteria (Auto) 01/02/19 01/02/19 06:26 12:24 WBC RBC Hgb Hct MCV MCH MCHC RDW Plt Count MPV Absolute Neuts (auto) Neutrophils % Lymphocytes % Monocytes % Eosinophils % Basophils % Nucleated RBC % PT with INR INR PTT (Actin FS) VBG pH POC VBG pCO2 POC VBG pO2 VBG HCO3 VBG O2 Sat (Martin) VBG Base Excess Sodium Potassium Chloride Carbon Dioxide Anion Gap BUN Creatinine Creat Clearance w eGFR POC Glucometer 87 90 Random Glucose Lactic Acid Calcium Total Bilirubin AST ALT Alkaline Phosphatase Creatine Kinase Troponin I Total Protein Albumin TSH Free T4 Urine Color Urine Appearance Urine pH Ur Specific [place] Urine Protein Urine Glucose (UA) Urine Ketones Urine Blood Urine Nitrite Urine Bilirubin Urine Urobilinogen Ur Leukocyte Esterase Urine WBC (Auto) Urine RBC (Auto) Urine Casts (Auto) U Epithel Cells (Auto) Urine Bacteria (Auto) Active Medications Generic Name Dose Route Start Last Admin Trade Name Freq PRN Reason Stop Dose Admin Artificial Tears 1 applic 01/01/19 19:22 Artificial Tears Ointment - OD HS PRN DRY EYES Aspirin 81 mg 01/02/19 10:00 01/02/19 09:43 Asa - PO 81 mg DAILY YAKOV Administration Atorvastatin Calcium 80 mg 01/01/19 22:00 01/01/19 22:39 Lipitor - PO 80 mg HS YAKOV Administration Buspirone HCl 15 mg 01/01/19 22:00 01/02/19 09:43 Buspar - PO 15 mg BID YAKOV Administration Calcium Carbonate/Cholecalciferol 1 tab 01/02/19 10:00 01/02/19 09:43 Os-[place] 500+D - PO 1 tab BID YAKOV Administration Enalapril Maleate 20 mg 01/02/19 10:00 01/02/19 09:43 Vasotec - PO 20 mg DAILY YAKOV Administration Heparin Sodium (Porcine) 5,000 unit 01/01/19 22:00 01/02/19 09:43 Heparin - SQ 5,000 unit BID YAKOV Administration Dextrose 1,000 mls @ 42 mls/hr 01/01/19 19:30 01/02/19 10:38 D5w - IV Not Given ASDIR YAKOV Dextrose 1,000 mls @ 30 mls/hr 01/02/19 07:00 01/02/19 07:16 D5w - IV 30 mls/hr ASDIR YAKOV Administration Ceftriaxone Sodium 2 gm/ 100 mls @ 200 mls/hr 01/02/19 12:30 01/02/19 13:21 Dextrose IVPB 200 mls/hr DAILY YAKOV Administration Protocol Insulin Aspart 1 vial 01/01/19 22:00 01/02/19 12:25 Novolog Vial Sliding Scale - SQ Not Given ACHS YAKOV Protocol Methylnaltrexone [place] 8 mg 01/04/19 10:00 Relistor - SQ Q2D@1000 YAKOV Pantoprazole Sodium 40 mg 01/02/19 10:00 01/02/19 09:43 Protonix Packets For Oral Suspension - PO 40 mg DAILY YAKOV Administration Pyridoxine HCl 100 mg 01/02/19 18:37 Vitamin B6 Injection - IM 01/02/19 18:38 NOW ONE Fluticasone/Salmeterol 1 puff 01/01/19 22:00 01/02/19 10:30 Advair 100mcg/50mcg - IH 1 puff BID YAKOV Administration Sertraline HCl 50 mg 01/02/19 10:00 01/02/19 09:43 Zoloft - PO 50 mg DAILY YAKOV Administration Tamsulosin HCl 0.4 mg 01/02/19 08:30 01/02/19 09:28 Flomax - PO 0.4 mg DAILY@0830 YAKOV Administration Tiotropium [place] 2 puff 01/02/19 10:00 01/02/19 10:31 Spiriva Respimat IH 2 puff DAILY YAKOV Administration Valacyclovir HCl 500 mg 01/02/19 10:00 01/02/19 09:43 Valtrex - PO 500 mg DAILY YAKOV Administration CBC, BMP 01/02/19 05:12 01/02/19 05:12 ASSESSMENT/PLAN: 63 year old male with a past medical history of hypertension, hyperlipidemia, IDDM, Hep C (on Harvoni), PVD/LE ulcers, opioid use (on methadone), and recent dx of multiple myeloma was brought in by ambulance for hypoglycemia. Hypoglycemia: resolved Multiple myeloma: follows w/ Dr. Grady as outpatient Anemia: likely chronic 2/2 multiple myeloma Acute kidney disease: nephro following Will discuss with Dr. Grady Dispo: We will continue to follow the patient. Thank you for this consultative opportunity. Visit type - Emergency Visit Emergency Visit: Yes ED Registration Date: 01/01/19 Care time: The patient presented to the Emergency Department on the above date and was hospitalized for further evaluation of their emergent condition. - New Patient This patient is new to me today: Yes Date on this admission: 01/02/19 - Critical Care Critical Care patient: No
--- NOTE | 2019-01-02 14:51 | PN ---
Teaching Attending Note Name of Resident: Marlene Mendoza (Nephrology) ATTENDING PHYSICIAN STATEMENT I saw and evaluated the patient. I reviewed the resident's note and discussed the case with the resident. I agree with the resident's findings and plan as documented. Nephrology Pt is a 63 year old male with pmhx of ckd, htn, dm and multiple myeloma who is admitted with hypoglycemia. He is awake and alert. He is aware of what occurred. He denies fevers or chills. pmhx ckd htn dm multiple myeloma nkda ros denies family hx non contrib Current Medications Generic Name Dose Route Start Last Admin Trade Name Freq PRN Reason Stop Dose Admin Artificial Tears 1 applic 01/01/19 19:22 Artificial Tears Ointment - OD HS PRN DRY EYES Aspirin 81 mg 01/02/19 10:00 01/02/19 09:43 Asa - PO 81 mg DAILY YAKOV Administration Atorvastatin Calcium 80 mg 01/01/19 22:00 01/01/19 22:39 Lipitor - PO 80 mg HS YAKOV Administration Buspirone HCl 15 mg 01/01/19 22:00 01/02/19 09:43 Buspar - PO 15 mg BID YAKOV Administration Calcium Carbonate/Cholecalciferol 1 tab 01/02/19 10:00 01/02/19 09:43 Os-[place] 500+D - PO 1 tab BID YAKOV Administration Enalapril Maleate 20 mg 01/02/19 10:00 01/02/19 09:43 Vasotec - PO 20 mg DAILY YAKOV Administration Heparin Sodium (Porcine) 5,000 unit 01/01/19 22:00 01/02/19 09:43 Heparin - SQ 5,000 unit BID YAKOV Administration Dextrose 1,000 mls @ 42 mls/hr 01/01/19 19:30 01/02/19 10:38 D5w - IV Not Given ASDIR YAKOV Dextrose 1,000 mls @ 30 mls/hr 01/02/19 07:00 01/02/19 07:16 D5w - IV 30 mls/hr ASDIR YAKOV Administration Ceftriaxone Sodium 2 gm/ 100 mls @ 200 mls/hr 01/02/19 12:30 01/02/19 13:21 Dextrose IVPB 200 mls/hr DAILY YAKOV Administration Protocol Insulin Aspart 1 vial 01/01/19 22:00 01/02/19 12:25 Novolog Vial Sliding Scale - SQ Not Given ACHS [facility] Protocol Methylnaltrexone [place] 8 mg 01/04/19 10:00 Relistor - SQ Q2D@1000 [facility] Pantoprazole Sodium 40 mg 01/02/19 10:00 01/02/19 09:43 Protonix Packets For Oral Suspension - PO 40 mg DAILY YAKOV Administration Pyridoxine HCl 100 mg 01/02/19 18:37 Vitamin B6 Injection - IM 01/02/19 18:38 NOW ONE Fluticasone/Salmeterol 1 puff 01/01/19 22:00 01/02/19 10:30 Advair 100mcg/50mcg - IH 1 puff BID YAKOV Administration Sertraline HCl 50 mg 01/02/19 10:00 01/02/19 09:43 Zoloft - PO 50 mg DAILY YAKOV Administration Tamsulosin HCl 0.4 mg 01/02/19 08:30 01/02/19 09:28 Flomax - PO 0.4 mg DAILY@0830 YAOKV Administration Tiotropium [place] 2 puff 01/02/19 10:00 01/02/19 10:31 Spiriva Respimat IH 2 puff DAILY YAKOV Administration Valacyclovir HCl 500 mg 01/02/19 10:00 01/02/19 09:43 Valtrex - PO 500 mg DAILY YAKOV Administration Laboratory Tests 01/01/19 01/02/19 16:40 05:12 Sodium 135 L Potassium 5.6 H Chloride 108 H Carbon Dioxide 20 L BUN 33 H 31 H Creatinine 1.9 H 1.8 H cardio s1s2 pulm clear GI soft ext neg edema skin venous stasis changes Impression 1. hyponatremia 2. CKD 3. hypoglycemia 4. htn 5. DM 6. 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 multiple myeloma 9. anemia 10. proteinuria 11. hyperkalemia Plan - repeat bmp - cont fluids - will need to hold enalepril if potassium elevated - avoid nsaids - monitor glucose
[2019-01-02] MEDS ORDERED: MAG HYDROX/AL HYDROX/SIMETH 30 ML UNIT-DOSE CUP ONE (15:03)
[2019-01-02 17:32] LABS: ANION GAP 10 MMOL/L (8-16); BLOOD UREA NITROGEN 30 mg/dL (7-18); CALCIUM 7.4 mg/dL (8.5-10.1); CHLORIDE 108 mmol/L (98-107); CO2 17 mmol/L (21-32); CREATININE 1.6 mg/dL (0.55-1.3); GLUCOSE,RANDOM 71 mg/dL (74-106); POTASSIUM 5.2 mmol/L (3.5-5.1); SODIUM 134 mmol/L (136-145)
[2019-01-02] MEDS ORDERED: PYRIDOXINE HCL 100 MG/1 ML VIAL IM ONE (18:37)
--- NOTE | 2019-01-02 18:44 | CONSULT ---
Consult - text type - Consultation Consultation Note: 63 yo man recently diagnosed with mult. abdirahman, recently discharged from inpatient- (was in ICU intubated for pneumonia and respiratory failure) to rehab facility. He signed himself out of rehab this morning and took insulin sc dose and was later found to be obtunded and diaphoretic, shakey, glucometer was not readable. He was then brought to the hospital and received d50 IV, after which his mental status returned to baseline. Noted to have elevated TP level. Echocardiogram showed EF 45-50% without regional variability. Unchanged from echo done 11/2018. ECG with anterior wall T wave inversions. No chest pain or dyspnea. 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) Cardio/Vascular: Yes: HTN, Hyperlipdemia Pulmonary: Yes: Asthma, Other (left chest tube for rib fracture related pneumothorax afte a fall) Gastrointestinal: Yes: Constipation Hepatobiliary: Yes: Hepatitis C (cured several years ago with Dr Bedolla) Renal/: Yes: Renal Inusuff Infectious Disease: Yes: Other (Hepatitis C cured) Psych: Yes: Depression Musculoskeletal: Yes: Chronic low back pain, Other (multiple thoracolumbar vertebral fractures) Endocrine: Yes: Diabetes Mellitus Dermatology: Yes: Other (varicose veins) Additional Medical History: Laser therapy for diabetic retinopathy - Past Surgical History Past Surgical History: Yes: Amputation (5th digit R foot), Tonsillectomy - Alcohol/Substance Use Hx Alcohol Use: No History of Substance Use: reports: None (snorted), Cocaine, Heroin (sorteh) - Smoking History Smoking history: Current every day smoker Have you smoked in the past 12 months: No If you are a former smoker, when did you quit?: 1996 - Social History Usual Living Arrangement: With Spouse ADL: Independent 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 History of Recent Travel: Yes (to [place] in past 2 weeks ) Home Medications - Allergies Allergies/Adverse Reactions: Allergies Allergy/AdvReac Type Severity Reaction Status Date / Time No Known Allergies Allergy Verified 01/01/19 16:16 - Home Medications Home Medications: Ambulatory Orders Insulin Glargine,Hum.rec.anlog [Lantus (10mL VIAL) -] 40 unit SQ HS 06/07/15 Acetaminophen [Tylenol .Regular Strength -] 650 mg PO Q6H PRN #0 tablet Buspirone HCl 15 mg PO BID 07/22/18 Ammonium Lactate Lotion [Lac-Hydrin 12] 1 applic TP BID PRN bottle 12/21/18 Aspirin [ASA -] 81 mg PO DAILY tab.chew 12/21/18 Atorvastatin Ca [Lipitor] 80 mg PO HS tablet 12/21/18 Calcium 500Mg/Vit-D 200 Units [Os-Kyler 500+D -] 2 tab PO DAILY tab 12/21/18 Heparin - 5,000 unit SQ BID vial 12/21/18 Insulin Sliding Scale [Novolog Vial Sliding Scale -] 1 vial SQ TIDAC units Methadone HCl 20 mg PO DAILY #60 tablet MDD 2 12/21/18 Metoprolol Tartrate [Lopressor -] 25 mg PO BID tablet 12/21/18 Nystatin Oral Suspension - [Nystatin Oral Susp 675819 Units/5 ML -] 500,000 units PO Q6HPO cup 12/21/18 Ocular Lubricant Ophth Oint [Lacri-Lube S.o.p -] 1 applic OD HS PRN tube Pantoprazole Suspension [Protonix Packets For Oral Suspension -] 40 mg PO DAILY packet 12/21/18 Polyethylene Glycol 3350 [Miralax 119 gm Btl -] 17 gm PO BID bottle 12/21/18 Tamsulosin HCl [Flomax -] 0.8 mg PO DAILY@0830 cap.er.24h 12/21/18 Tiotropium [place] [Spiriva Respimat] 2 puff IH DAILY inhaler 12/21/18 Family Disease History - Family Disease History Family Disease History: CA: Mother, Other: Father ( 90 natural causes), Mother, Brother Review of Systems - Review of Systems Constitutional: reports: No Symptoms Eyes: reports: No Symptoms HENT: reports: No Symptoms Neck: reports: No Symptoms Cardiovascular: denies: Chest Pain, Edema, Palpitations, Shortness of Breath Respiratory: reports: No Symptoms Gastrointestinal: reports: No Symptoms Vital Signs: Vital Signs Temperature 98.3 F 01/02/19 09:25 Pulse Rate 82 01/02/19 09:25 Respiratory Rate 20 01/02/19 09:25 Blood Pressure 107/69 01/02/19 09:25 O2 Sat by Pulse Oximetry (%) 98 01/02/19 09:25 Constitutional: Yes: Well Nourished, No Distress Eyes: Yes: Conjunctiva Clear HENT: Yes: Atraumatic, Normocephalic Neck: Yes: Supple, Trachea Midline Respiratory: Yes: Regular, CTA Bilaterally Gastrointestinal: Yes: Normal Bowel Sounds Cardiovascular: Yes: Regular Rate and Rhythm JVD: No Carotid Bruit: No PMI: Non-Displaced Heart Sounds: Yes: S1, S2 Murmur: No: Systolic Murmur, Diastolic Murmur Edema: No - Other Data Labs, Other Data: CBC, BMP 01/02/19 05:12 01/02/19 05:12 INR, PTT INR 1.19 (0.83-1.09) H 01/01/19 16:40 Troponin, BNP 01/01/19 01/02/19 01/02/19 16:40 03:02 05:12 Troponin I 0.41 H 0.15 H 0.17 H Troponin, BNP 01/01/19 01/02/19 01/02/19 16:40 03:02 05:12 Troponin I 0.41 H 0.15 H 0.17 H Problem List - Problems (1) NSTEMI (non-ST elevated myocardial infarction) Code(s): I21.4 - NON-ST ELEVATION (NSTEMI) MYOCARDIAL INFARCTION Assessment/Plan 63 yo man recently diagnosed with mult. mylemona, recently discharged from inpatient- (was in ICU intubated for pneumonia and respiratory failure) to rehab facility. He signed himself out of rehab this morning and took insulin sc dose and was later found to be obtunded and diaphoretic, shakey, glucometer was not readable. He was then brought to the hospital and received d50 IV, after which his mental status returned to baseline. Echocardiogram showed EF 45-50% without regional variability. Unchanged from echo done 11/2018. ECG with anterior wall T wave inversions. myeloma--s/p rt to l spine episural disease/left acetabulum s/p velcade/cytoxan/dex given recent course and critical illness neuropathy will switch to revlimid will discuss with family rehab placement
[2019-01-02] MEDS ORDERED: PT OWN MED DRAWER 7, Y5N ONE (22:44)
[2019-01-02] MEDS: ATORVASTATIN CA 80 MG TABLET (FP) PO SCH (22:57)
[2019-01-02] MEDS ORDERED: DEXTROSE 5%-WATER - 1,000 ML IV SCH (23:09)
[2019-01-03] MEDS ORDERED: MAG HYDROX/AL HYDROX/SIMETH 30 ML UNIT-DOSE CUP PO ONE (01:26)
[2019-01-03] MEDS: INSULIN SLIDING SCALE (NOVOLOG) 1 VIAL SQ SCH ×4 (06:03→22:20)
[2019-01-03 07:49] LABS: BASO % 0.2 % (0-2.0); HEMATOCRIT 25.3 % (35.4-49); HEMOGLOBIN 8.4 GM/dL (11.7-16.9); LYMPH % 19.2 % (8-40); MCH 29.7 pg (25.7-33.7); MCHC 33.2 g/dl (32.0-35.9); MEAN CELL VOLUME 89.5 fl (80-96); MEAN PLT VOLUME 8.2 fl (7.5-11.1); MONO % 4.9 % (3.8-10.2); NEUT % 74.7 % (42.8-82.8); PLATELET COUNT 163 K/MM3 (134-434); RBC 2.82 M/mm3 (4.00-5.60); WHITE BLOOD COUNT 5.7 K/mm3 (4.0-10.0)
[2019-01-03 08:15] LABS: ALBUMIN 2.4 g/dl (3.4-5.0); ALK PHOS 95 U/L (45-117); ANION GAP 8 MMOL/L (8-16); BILIRUBIN,TOTAL 0.2 mg/dL (0.2-1); BLOOD UREA NITROGEN 26 mg/dL (7-18); CALCIUM 7.5 mg/dL (8.5-10.1); CHLORIDE 106 mmol/L (98-107); CO2 18 mmol/L (21-32); CREATININE 1.4 mg/dL (0.55-1.3); GLUCOSE,RANDOM 103 mg/dL (74-106); POTASSIUM 5.1 mmol/L (3.5-5.1); SGOT/AST 11 U/L (15-37); SGPT/ALT 15 U/L (13-61); SODIUM 132 mmol/L (136-145); TOT PROT 5.5 g/dl (6.4-8.2)
--- NOTE | 2019-01-03 09:35 | PN ---
Progress Note, Physician - Current Medication List Current Medications: Active Medications Artificial Tears (Artificial Tears Ointment -) 1 applic OD HS PRN PRN Reason: DRY EYES Aspirin (Asa -) 81 mg PO DAILY [facility] Last Admin: 01/02/19 09:43 Dose: 81 mg Atorvastatin Calcium (Lipitor -) 80 mg PO HS [facility] Last Admin: 01/02/19 22:57 Dose: 80 mg Buspirone HCl (Buspar -) 15 mg PO BID [facility] Last Admin: 01/02/19 23:00 Dose: 15 mg Calcium Carbonate/Cholecalciferol (Os-Kyler 500+D -) 1 tab PO BID [facility] Last Admin: 01/02/19 22:58 Dose: 1 tab Enalapril Maleate (Vasotec -) 20 mg PO DAILY [facility] Last Admin: 01/02/19 09:43 Dose: 20 mg Heparin Sodium (Porcine) (Heparin -) 5,000 unit SQ BID [facility] Last Admin: 01/02/19 22:58 Dose: 5,000 unit Dextrose (D5w -) 1,000 mls @ 30 mls/hr IV ASDIR [facility] Last Admin: 01/02/19 18:45 Dose: 30 mls/hr Ceftriaxone Sodium 2 gm/ (Dextrose) 100 mls @ 200 mls/hr IVPB DAILY [facility]; Protocol Last Admin: 01/02/19 13:21 Dose: 200 mls/hr Dextrose (D5w -) 1,000 mls @ 75 mls/hr IV ASDIR [facility] Last Admin: 01/02/19 23:12 Dose: 75 mls/hr Insulin Aspart (Novolog Vial Sliding Scale -) 1 vial SQ ACHS [facility]; Protocol Last Admin: 01/03/19 06:03 Dose: Not Given Methylnaltrexone [place] (Relistor -) 12 mg SQ Q2D@1000 [facility] Pantoprazole Sodium (Protonix Packets For Oral Suspension -) 40 mg PO DAILY [facility] Last Admin: 01/02/19 09:43 Dose: 40 mg Fluticasone/Salmeterol (Advair 100mcg/50mcg -) 1 puff IH BID [facility] Last Admin: 01/02/19 22:58 Dose: 1 puff Sertraline HCl (Zoloft -) 50 mg PO DAILY [facility] Last Admin: 01/02/19 09:43 Dose: 50 mg Tamsulosin HCl (Flomax -) 0.4 mg PO DAILY@0830 [facility] Last Admin: 01/02/19 09:28 Dose: 0.4 mg Tiotropium [place] (Spiriva Respimat) 2 puff IH DAILY [facility] Last Admin: 01/02/19 10:31 Dose: 2 puff Valacyclovir HCl (Valtrex -) 500 mg PO DAILY [facility] Last Admin: 01/02/19 09:43 Dose: 500 mg - Objective Vital Signs: Vital Signs Temperature 97.8 F 01/03/19 06:19 Pulse Rate 106 H 01/03/19 06:19 Respiratory Rate 20 01/03/19 06:19 Blood Pressure 130/81 01/03/19 06:19 O2 Sat by Pulse Oximetry (%) 98 01/03/19 06:19 Labs: CBC, BMP 01/03/19 06:00 01/03/19 06:00 INR, PTT INR 1.19 (0.83-1.09) H 01/01/19 16:40 Problem List - Problems (1) Tachycardia Assessment/Plan: Probably afib stat ekg cardizem Code(s): R00.0 - TACHYCARDIA, UNSPECIFIED (2) Elevated troponin Assessment/Plan: telemetry cardiology trend troponin asprin lipitor low BP noted Code(s): R74.8 - ABNORMAL LEVELS OF OTHER SERUM ENZYMES (3) Hypoglycemia Assessment/Plan: monitor bgm endo Code(s): E16.2 - HYPOGLYCEMIA, UNSPECIFIED (4) NSTEMI (non-ST elevated myocardial infarction) Assessment/Plan: as above Code(s): I21.4 - NON-ST ELEVATION (NSTEMI) MYOCARDIAL INFARCTION
[2019-01-03] MEDS ORDERED: DEXTROSE 5%-WATER 100 ML IVPB ONE (09:44)
[2019-01-03] MEDS: CEFTRIAXONE 2 GM in DEXTROSE 5%-WATER 100 ML IVPB SCH (09:56)
[2019-01-03] MEDS: TAMSULOSIN HCL 0.4 MG CAP PO SCH (09:58)
[2019-01-03] MEDS: CALCIUM 500MG/VIT-D 200 UNITS COMBO TABLET (FP) PO SCH ×2 (09:59→22:18)
[2019-01-03] MEDS: ASPIRIN 81 MG CHEWABLE TABLETS PO SCH (09:59)
[2019-01-03] MEDS: SERTRALINE HCL 50 MG TABLET (FP) PO SCH (09:59)
[2019-01-03] MEDS: HEPARIN NA (PORCINE) 5,000 UNITS/ML 1ML VIAL SQ SCH ×2 (09:59→22:18)
[2019-01-03] MEDS: valACYclovir HCL 500 MG TABLET (FP) PO SCH (09:59)
[2019-01-03] MEDS: PANTOPRAZOLE SOD 40 MG SUSPENSION PACKET PO SCH (09:59)
[2019-01-03] MEDS: ENALAPRIL MALEATE 10 MG TABLET (FP) PO SCH (09:59)
[2019-01-03] MEDS: FLUTICASONE/SALMETEROL 100 MCG/50 MCG DISKUS IH SCH ×2 (10:00→22:17)
[2019-01-03] MEDS: DEXTROSE 5%-WATER - 1,000 ML IV SCH (10:00)
[2019-01-03] MEDS: busPIRone HCL 5 MG TABLET PO SCH ×2 (10:02→22:18)
[2019-01-03] MEDS: TIOTROPIUM BROMIDE 2.5 MCG (SPIRIVA) RESPIMAT INHALER IH SCH (10:02)
--- NOTE | 2019-01-03 11:58 | EKG ---
Test Reason : Blood Pressure : / mmHG Vent. Rate : 108 BPM Atrial Rate : 108 BPM P-R Int : 158 ms QRS Dur : 078 ms QT Int : 352 ms P-R-T Axes : 054 019 210 degrees QTc Int : 471 ms SINUS TACHYCARDIA ABNORMAL ECG Confirmed by MD DEON, BRIAN ([id number]) on 01/03/2019 11:58:06 AM [facility] Confirmed By:BRIAN CHAVARRIA MD
[2019-01-03] MEDS: MAG HYDROX/AL HYDROX/SIMETH 30 ML UNIT-DOSE CUP PO PRN (12:00)
[2019-01-03] MEDS ORDERED: PT OWN MED DRAWER 7, Y5N ONE ×3 (12:07→22:12)
[2019-01-03] MEDS ORDERED: METHADONE HCL 10 MG TABLET PO ONE (12:15)
--- NOTE | 2019-01-03 13:20 | PN ---
Progress Note, Physician History of Present Illness: Pt seen and examined at bedside. He is awake and alert. He feels much better than yesterday. He denies shortness of breath. - Current Medication List Current Medications: Active Medications Al Hydroxide/Mg Hydroxide (Mylanta Oral Suspension -) 30 ml PO Q6H PRN PRN Reason: INDIGESTION Last Admin: 01/03/19 12:00 Dose: 30 ml Artificial Tears (Artificial Tears Ointment -) 1 applic OD HS PRN PRN Reason: DRY EYES Aspirin (Asa -) 81 mg PO DAILY [facility] Last Admin: 01/03/19 09:59 Dose: 81 mg Atorvastatin Calcium (Lipitor -) 80 mg PO HS [facility] Last Admin: 01/02/19 22:57 Dose: 80 mg Buspirone HCl (Buspar -) 15 mg PO BID [facility] Last Admin: 01/03/19 10:02 Dose: 15 mg Calcium Carbonate/Cholecalciferol (Os-Kyler 500+D -) 1 tab PO BID [facility] Last Admin: 01/03/19 09:59 Dose: 1 tab Enalapril Maleate (Vasotec -) 20 mg PO DAILY [facility] Last Admin: 01/03/19 09:59 Dose: 20 mg Heparin Sodium (Porcine) (Heparin -) 5,000 unit SQ BID [facility] Last Admin: 01/03/19 09:59 Dose: 5,000 unit Ceftriaxone Sodium 2 gm/ (Dextrose) 100 mls @ 200 mls/hr IVPB DAILY [facility]; Protocol Last Admin: 01/03/19 09:56 Dose: 200 mls/hr Dextrose (D5w -) 1,000 mls @ 75 mls/hr IV ASDIR [facility] Last Admin: 01/02/19 23:12 Dose: 75 mls/hr Insulin Aspart (Novolog Vial Sliding Scale -) 1 vial SQ ACHS [facility]; Protocol Last Admin: 01/03/19 11:27 Dose: 2 unit Methadone HCl (Dolophine -) 30 mg PO DAILY@0600 [facility] Methylnaltrexone [place] (Relistor -) 12 mg SQ Q2D@1000 [facility] Pantoprazole Sodium (Protonix Packets For Oral Suspension -) 40 mg PO DAILY [facility] Last Admin: 01/03/19 09:59 Dose: 40 mg Fluticasone/Salmeterol (Advair 100mcg/50mcg -) 1 puff IH BID [facility] Last Admin: 01/03/19 10:00 Dose: 1 puff Sertraline HCl (Zoloft -) 50 mg PO DAILY [facility] Last Admin: 01/03/19 09:59 Dose: 50 mg Tamsulosin HCl (Flomax -) 0.4 mg PO DAILY@0830 [facility] Last Admin: 01/03/19 09:58 Dose: 0.4 mg Tiotropium [place] (Spiriva Respimat) 2 puff IH DAILY [facility] Last Admin: 01/03/19 10:02 Dose: 2 puff Valacyclovir HCl (Valtrex -) 500 mg PO DAILY [facility] Last Admin: 01/03/19 09:59 Dose: 500 mg - Objective Vital Signs: Vital Signs Temperature 98.2 F 01/03/19 09:53 Pulse Rate 125 H 01/03/19 09:53 Respiratory Rate 20 01/03/19 09:53 Blood Pressure 148/89 01/03/19 09:53 O2 Sat by Pulse Oximetry (%) 98 01/03/19 06:19 Constitutional: Yes: Calm Eyes: Yes: Conjunctiva Clear HENT: Yes: Atraumatic Neck: Yes: Supple Cardiovascular: Yes: S1, S2 Respiratory: Yes: CTA Bilaterally Gastrointestinal: Yes: Soft Musculoskeletal: Yes: Muscle Weakness Edema: No Neurological: Yes: Oriented Psychiatric: Yes: Oriented Labs: CBC, BMP 01/03/19 06:00 01/03/19 06:00 INR, PTT INR 1.19 (0.83-1.09) H 01/01/19 16:40 Assessment/Plan Current Medications Generic Name Dose Route Start Last Admin Trade Name Freq PRN Reason Stop Dose Admin Al Hydroxide/Mg Hydroxide 30 ml 01/03/19 11:35 01/03/19 12:00 Mylanta Oral Suspension - PO 30 ml Q6H PRN Administration INDIGESTION Artificial Tears 1 applic 01/01/19 19:22 Artificial Tears Ointment - OD HS PRN DRY EYES Aspirin 81 mg 01/02/19 10:00 01/03/19 09:59 Asa - PO 81 mg DAILY [facility] Administration Atorvastatin Calcium 80 mg 01/01/19 22:00 01/02/19 22:57 Lipitor - PO 80 mg HS [facility] Administration Buspirone HCl 15 mg 01/01/19 22:00 01/03/19 10:02 Buspar - PO 15 mg BID [facility] Administration Calcium Carbonate/Cholecalciferol 1 tab 01/02/19 10:00 01/03/19 09:59 Os-Kyler 500+D - PO 1 tab BID [facility] Administration Enalapril Maleate 20 mg 01/02/19 10:00 01/03/19 09:59 Vasotec - PO 20 mg DAILY [facility] Administration Heparin Sodium (Porcine) 5,000 unit 01/01/19 22:00 01/03/19 09:59 Heparin - SQ 5,000 unit BID [facility] Administration Ceftriaxone Sodium 2 gm/ 100 mls @ 200 mls/hr 01/02/19 12:30 01/03/19 09:56 Dextrose IVPB 200 mls/hr DAILY [facility] Administration Protocol Dextrose 1,000 mls @ 75 mls/hr 01/02/19 23:09 01/02/19 23:12 D5w - IV 75 mls/hr ASDIR [facility] Administration Insulin Aspart 1 vial 01/01/19 22:00 01/03/19 11:27 Novolog Vial Sliding Scale - SQ 2 unit ACHS [facility] Administration Protocol Methadone HCl 30 mg 01/04/19 06:00 Dolophine - PO DAILY@0600 [facility] Methylnaltrexone [place] 12 mg 01/04/19 10:00 Relistor - SQ Q2D@1000 [facility] Pantoprazole Sodium 40 mg 01/02/19 10:00 01/03/19 09:59 Protonix Packets For Oral Suspension - PO 40 mg DAILY [facility] Administration Fluticasone/Salmeterol 1 puff 01/01/19 22:00 01/03/19 10:00 Advair 100mcg/50mcg - IH 1 puff BID [facility] Administration Sertraline HCl 50 mg 01/02/19 10:00 01/03/19 09:59 Zoloft - PO 50 mg DAILY [facility] Administration Tamsulosin HCl 0.4 mg 01/02/19 08:30 01/03/19 09:58 Flomax - PO 0.4 mg DAILY@0830 [facility] Administration Tiotropium [place] 2 puff 01/02/19 10:00 01/03/19 10:02 Spiriva Respimat IH 2 puff DAILY [facility] Administration Valacyclovir HCl 500 mg 01/02/19 10:00 01/03/19 09:59 Valtrex - PO 500 mg DAILY [facility] Administration Impression 1. hyponatremia 2. CKD 3. hypoglycemia 4. htn 5. DM 6. 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 multiple myeloma 9. anemia 10. proteinuria 11. hyperkalemia Plan - potassium is improving - decrease rate of fluids - monitor glucose - monitor renal function - low potassium diet - avoid nsaids
[2019-01-03] MEDS ORDERED: DEXTROSE 5%-WATER - 1,000 ML IV SCH (13:21)
--- NOTE | 2019-01-03 15:50 | PN ---
Progress Note (short form) - Note Progress Note: Patient seen and examined Awake and alert Last Vital Signs Temp Pulse Resp BP Pulse Ox 98.7 F 122 H 16 127/58 L 98 01/03/19 13:40 01/03/19 13:40 01/03/19 13:40 01/03/19 13:40 01/03/19 09:00 HEENT: [place], EOM Intact Oropharynx: No thrush, No mucositis,edentulous Cor: RSR, No murmurs, No gallops Lungs: few rales right base Abd: Soft, Normal bowel sounds, No organomegaly,distended Ext:No significant edema Skin: No rashes, Integument intact CBC, BMP 01/03/19 06:00 01/03/19 06:00 Current Medications Generic Name Dose Route Start Last Admin Trade Name Freq PRN Reason Stop Dose Admin Al Hydroxide/Mg Hydroxide 30 ml 01/03/19 11:35 01/03/19 12:00 Mylanta Oral Suspension - PO 30 ml Q6H PRN Administration INDIGESTION Artificial Tears 1 applic 01/01/19 19:22 Artificial Tears Ointment - OD HS PRN DRY EYES Aspirin 81 mg 01/02/19 10:00 01/03/19 09:59 Asa - PO 81 mg DAILY [facility] Administration Atorvastatin Calcium 80 mg 01/01/19 22:00 01/02/19 22:57 Lipitor - PO 80 mg HS [facility] Administration Buspirone HCl 15 mg 01/01/19 22:00 01/03/19 10:02 Buspar - PO 15 mg BID [facility] Administration Calcium Carbonate/Cholecalciferol 1 tab 01/02/19 10:00 01/03/19 09:59 Os-Kyler 500+D - PO 1 tab BID [facility] Administration Enalapril Maleate 20 mg 01/02/19 10:00 01/03/19 09:59 Vasotec - PO 20 mg DAILY [facility] Administration Heparin Sodium (Porcine) 5,000 unit 01/01/19 22:00 01/03/19 09:59 Heparin - SQ 5,000 unit BID [facility] Administration Ceftriaxone Sodium 2 gm/ 100 mls @ 200 mls/hr 01/02/19 12:30 01/03/19 09:56 Dextrose IVPB 200 mls/hr DAILY [facility] Administration Protocol Dextrose 1,000 mls @ 35 mls/hr 01/03/19 13:21 01/03/19 13:56 D5w - IV 35 mls/hr ASDIR [facility] Administration Insulin Aspart 1 vial 01/01/19 22:00 01/03/19 11:27 Novolog Vial Sliding Scale - SQ 2 unit ACHS [facility] Administration Protocol Methadone HCl 30 mg 01/04/19 06:00 Dolophine - PO DAILY@0600 [facility] Methylnaltrexone [place] 12 mg 01/04/19 10:00 Relistor - SQ Q2D@1000 [facility] Pantoprazole Sodium 40 mg 01/02/19 10:00 01/03/19 09:59 Protonix Packets For Oral Suspension - PO 40 mg DAILY [facility] Administration Fluticasone/Salmeterol 1 puff 01/01/19 22:00 01/03/19 10:00 Advair 100mcg/50mcg - IH 1 puff BID [facility] Administration Sertraline HCl 50 mg 01/02/19 10:00 01/03/19 09:59 Zoloft - PO 50 mg DAILY [facility] Administration Tamsulosin HCl 0.4 mg 01/02/19 08:30 01/03/19 09:58 Flomax - PO 0.4 mg DAILY@0830 [facility] Administration Tiotropium [place] 2 puff 01/02/19 10:00 01/03/19 10:02 Spiriva Respimat IH 2 puff DAILY [facility] Administration Valacyclovir HCl 500 mg 01/02/19 10:00 01/03/19 09:59 Valtrex - PO 500 mg DAILY [facility] Administration Impression: Myeloma -not in remission DM Hypoglycemia Methadone maintenance Opiod induced constipation UTI- pseudomonas Anemia CKD Plan: Per Dr. Grady - revruben in future suggest ID for pseudomonas UTI Continuing on antibiotics
--- NOTE | 2019-01-03 16:34 | PN ---
Progress Note, Physician History of Present Illness: AWAKE, ALERT NO FOCAL COMPLAINT AFEBRILE WBC WNL URINE C/S PRESUMPTIVE PSEUDOMONAS - Current Medication List Current Medications: Active Medications Al Hydroxide/Mg Hydroxide (Mylanta Oral Suspension -) 30 ml PO Q6H PRN PRN Reason: INDIGESTION Last Admin: 01/03/19 12:00 Dose: 30 ml Artificial Tears (Artificial Tears Ointment -) 1 applic OD HS PRN PRN Reason: DRY EYES Aspirin (Asa -) 81 mg PO DAILY [facility] Last Admin: 01/03/19 09:59 Dose: 81 mg Atorvastatin Calcium (Lipitor -) 80 mg PO HS [facility] Last Admin: 01/02/19 22:57 Dose: 80 mg Buspirone HCl (Buspar -) 15 mg PO BID [facility] Last Admin: 01/03/19 10:02 Dose: 15 mg Calcium Carbonate/Cholecalciferol (Os-Kyler 500+D -) 1 tab PO BID [facility] Last Admin: 01/03/19 09:59 Dose: 1 tab Enalapril Maleate (Vasotec -) 20 mg PO DAILY [facility] Last Admin: 01/03/19 09:59 Dose: 20 mg Heparin Sodium (Porcine) (Heparin -) 5,000 unit SQ BID [facility] Last Admin: 01/03/19 09:59 Dose: 5,000 unit Ceftriaxone Sodium 2 gm/ (Dextrose) 100 mls @ 200 mls/hr IVPB DAILY [facility]; Protocol Last Admin: 01/03/19 09:56 Dose: 200 mls/hr Dextrose (D5w -) 1,000 mls @ 35 mls/hr IV ASDIR [facility] Last Admin: 01/03/19 13:56 Dose: 35 mls/hr Insulin Aspart (Novolog Vial Sliding Scale -) 1 vial SQ ACHS [facility]; Protocol Last Admin: 01/03/19 16:32 Dose: Not Given Methadone HCl (Dolophine -) 30 mg PO DAILY@0600 [facility] Methylnaltrexone [place] (Relistor -) 12 mg SQ Q2D@1000 [facility] Pantoprazole Sodium (Protonix Packets For Oral Suspension -) 40 mg PO DAILY [facility] Last Admin: 01/03/19 09:59 Dose: 40 mg Fluticasone/Salmeterol (Advair 100mcg/50mcg -) 1 puff IH BID [facility] Last Admin: 01/03/19 10:00 Dose: 1 puff Sertraline HCl (Zoloft -) 50 mg PO DAILY [facility] Last Admin: 01/03/19 09:59 Dose: 50 mg Tamsulosin HCl (Flomax -) 0.4 mg PO DAILY@0830 [facility] Last Admin: 01/03/19 09:58 Dose: 0.4 mg Tiotropium [place] (Spiriva Respimat) 2 puff IH DAILY [facility] Last Admin: 01/03/19 10:02 Dose: 2 puff Valacyclovir HCl (Valtrex -) 500 mg PO DAILY [facility] Last Admin: 01/03/19 09:59 Dose: 500 mg - Objective Vital Signs: Vital Signs Temperature 98.7 F 01/03/19 13:40 Pulse Rate 122 H 01/03/19 13:40 Respiratory Rate 16 01/03/19 13:40 Blood Pressure 127/58 L 01/03/19 13:40 O2 Sat by Pulse Oximetry (%) 98 01/03/19 09:00 Constitutional: Yes: No Distress Eyes: Yes: Conjunctiva Clear Cardiovascular: Yes: Regular Rate and Rhythm, S1, S2 Respiratory: Yes: CTA Bilaterally Gastrointestinal: Yes: Normal Bowel Sounds, Soft. No: Tenderness Edema: No Labs: CBC, BMP 01/03/19 06:00 01/03/19 06:00 INR, PTT INR 1.19 (0.83-1.09) H 01/01/19 16:40 Assessment/Plan UTI SYMPTOMATIC HYPOGLYCEMIA [facility] PENDING C/S
--- NOTE | 2019-01-03 16:39 | PN ---
Progress Note, Physician History of Present Illness: AWAKE, ALERT NO FOCAL COMPLAINT AFEBRILE WBC WNL URINE C/S PRESUMPTIVE PSEUDOMONAS - Current Medication List Current Medications: Active Medications Al Hydroxide/Mg Hydroxide (Mylanta Oral Suspension -) 30 ml PO Q6H PRN PRN Reason: INDIGESTION Last Admin: 01/03/19 12:00 Dose: 30 ml Artificial Tears (Artificial Tears Ointment -) 1 applic OD HS PRN PRN Reason: DRY EYES Aspirin (Asa -) 81 mg PO DAILY [facility] Last Admin: 01/03/19 09:59 Dose: 81 mg Atorvastatin Calcium (Lipitor -) 80 mg PO HS [facility] Last Admin: 01/02/19 22:57 Dose: 80 mg Buspirone HCl (Buspar -) 15 mg PO BID [facility] Last Admin: 01/03/19 10:02 Dose: 15 mg Calcium Carbonate/Cholecalciferol (Os-Kyler 500+D -) 1 tab PO BID [facility] Last Admin: 01/03/19 09:59 Dose: 1 tab Enalapril Maleate (Vasotec -) 20 mg PO DAILY [facility] Last Admin: 01/03/19 09:59 Dose: 20 mg Heparin Sodium (Porcine) (Heparin -) 5,000 unit SQ BID [facility] Last Admin: 01/03/19 09:59 Dose: 5,000 unit Dextrose (D5w -) 1,000 mls @ 35 mls/hr IV ASDIR [facility] Last Admin: 01/03/19 13:56 Dose: 35 mls/hr Piperacillin Sod/Tazobactam (Sod 2.25 gm/ Dextrose) 50 mls @ 100 mls/hr IVPB Q8H-IV [facility]; Protocol Insulin Aspart (Novolog Vial Sliding Scale -) 1 vial SQ ACHS [facility]; Protocol Last Admin: 01/03/19 16:32 Dose: Not Given Methadone HCl (Dolophine -) 30 mg PO DAILY@0600 [facility] Methylnaltrexone [place] (Relistor -) 12 mg SQ Q2D@1000 [facility] Pantoprazole Sodium (Protonix Packets For Oral Suspension -) 40 mg PO DAILY [facility] Last Admin: 01/03/19 09:59 Dose: 40 mg Fluticasone/Salmeterol (Advair 100mcg/50mcg -) 1 puff IH BID [facility] Last Admin: 01/03/19 10:00 Dose: 1 puff Sertraline HCl (Zoloft -) 50 mg PO DAILY [facility] Last Admin: 01/03/19 09:59 Dose: 50 mg Tamsulosin HCl (Flomax -) 0.4 mg PO DAILY@0830 [facility] Last Admin: 01/03/19 09:58 Dose: 0.4 mg Tiotropium [place] (Spiriva Respimat) 2 puff IH DAILY [facility] Last Admin: 01/03/19 10:02 Dose: 2 puff Valacyclovir HCl (Valtrex -) 500 mg PO DAILY [facility] Last Admin: 01/03/19 09:59 Dose: 500 mg - Objective Vital Signs: Vital Signs Temperature 98.7 F 01/03/19 13:40 Pulse Rate 122 H 01/03/19 13:40 Respiratory Rate 16 01/03/19 13:40 Blood Pressure 127/58 L 01/03/19 13:40 O2 Sat by Pulse Oximetry (%) 98 01/03/19 09:00 Labs: CBC, BMP 01/03/19 06:00 01/03/19 06:00 INR, PTT INR 1.19 (0.83-1.09) H 01/01/19 16:40
[2019-01-03] MEDS ORDERED: PIPERACILLIN/TAZOBACTAM 2.25 GM VIAL IVPB ONE (18:21)
[2019-01-03] MEDS ORDERED: DEXTROSE 5%-WATER - 50 ML IVPB ONE (18:21)
[2019-01-03] MEDS: PIPERACILLIN/TAZOB 2.25 GM 2.25 GM in DEXTROSE 5%-WATER - 50 ML IVPB SCH (18:22)
[2019-01-03] MEDS: ATORVASTATIN CA 80 MG TABLET (FP) PO SCH (22:18)
--- NOTE | 2019-01-03 22:29 | CONSULT ---
Consult Consult Specialty:: ENDOCRINE Referred by:: DR.IYAD MACKAY Reason for Consultation:: DIABETES MELLITUS UNCONTROLLED - History of Present Illness Chief Complaint: LOW SUGAR History of Present Illness: 63YOM, with significant past medical history of dm2 ,anemia, gastroparesis, neuropathy, retinopathy, UTI, CKD, ileus, previous intubation for respiratory failure after complicated GI bleed, HTN, HLD, PVD, HCV (s/p Harvoni), multiple myeloma (on chemo, last treatment a month ago), and on Methadone (previous opioid abuse) who presented to ed for hypoglycemia,bg 40,recently discharged from rehab,had taken his usual dose of insulin,and subsequently noted he was very weak and called for ems.he denies nausea,vomiting fever or chills. 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: Peripheral Neuropathy (stocking glove distribution related to DM) Cardio/Vascular: Yes: HTN, Hyperlipdemia Pulmonary: Yes: Asthma, Other (left chest tube for rib fracture related pneumothorax afte a fall) Gastrointestinal: Yes: Constipation Hepatobiliary: Yes: Hepatitis C (cured several years ago with Dr Bedolla) Renal/: Yes: Renal Inusuff Infectious Disease: Yes: Other (Hepatitis C cured) Psych: Yes: Depression Musculoskeletal: Yes: Chronic low back pain, Other (multiple thoracolumbar vertebral fractures) Endocrine: Yes: Diabetes Mellitus Dermatology: Yes: Other (varicose veins) Additional Medical History: Laser therapy for diabetic retinopathy - Past Surgical History Past Surgical History: Yes: Amputation (5th digit R foot), Tonsillectomy - Alcohol/Substance Use Hx Alcohol Use: No History of Substance Use: reports: None (snorted), Cocaine, Heroin (sorteh) - Smoking History Smoking history: Former smoker Have you smoked in the past 12 months: No If you are a former smoker, when did you quit?: 1996 - Social History Usual Living Arrangement: With Spouse ADL: Independent 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 History of Recent Travel: Yes (to [place] in past 2 weeks ) Home Medications - Allergies Allergies/Adverse Reactions: Allergies Allergy/AdvReac Type Severity Reaction Status Date / Time No Known Allergies Allergy Verified 01/01/19 16:16 - Home Medications Home Medications: Ambulatory Orders Insulin Glargine,Hum.rec.anlog [Lantus (10mL VIAL) -] 40 unit SQ HS 06/07/15 Acetaminophen [Tylenol .Regular Strength -] 650 mg PO Q6H PRN #0 tablet Buspirone HCl 15 mg PO BID 07/22/18 Ammonium Lactate Lotion [Lac-Hydrin 12] 1 applic TP BID PRN bottle 12/21/18 Aspirin [ASA -] 81 mg PO DAILY tab.chew 12/21/18 Atorvastatin Ca [Lipitor] 80 mg PO HS tablet 12/21/18 Calcium 500Mg/Vit-D 200 Units [Os-Kyler 500+D -] 2 tab PO DAILY tab 12/21/18 Heparin - 5,000 unit SQ BID vial 12/21/18 Insulin Sliding Scale [Novolog Vial Sliding Scale -] 1 vial SQ TIDAC units Methadone HCl 20 mg PO DAILY #60 tablet MDD 2 12/21/18 Metoprolol Tartrate [Lopressor -] 25 mg PO BID tablet 12/21/18 Nystatin Oral Suspension - [Nystatin Oral Susp 216880 Units/5 ML -] 500,000 units PO Q6HPO cup 12/21/18 Ocular Lubricant Ophth Oint [Lacri-Lube S.o.p -] 1 applic OD HS PRN tube Pantoprazole Suspension [Protonix Packets For Oral Suspension -] 40 mg PO DAILY packet 12/21/18 Polyethylene Glycol 3350 [Miralax 119 gm Btl -] 17 gm PO BID bottle 12/21/18 Tamsulosin HCl [Flomax -] 0.8 mg PO DAILY@0830 cap.er.24h 12/21/18 Tiotropium [place] [Spiriva Respimat] 2 puff IH DAILY inhaler 12/21/18 Family Disease History - Family Disease History Family Disease History: CA: Mother, Other: Father ( 90 natural causes), Mother, Brother Review of Systems - Review of Systems Constitutional: reports: Lethargy, Weakness Eyes: reports: Blurred Vision HENT: reports: No Symptoms Neck: reports: No Symptoms Cardiovascular: reports: Edema, Shortness of Breath Respiratory: reports: Exercise Intolerance, Orthopnea, SOB on Exertion Gastrointestinal: reports: Bloating Genitourinary: reports: Other Musculoskeletal: reports: Muscle Cramps, Muscle Weakness Neurological: reports: Numbness, Tremors, Unsteady Gait, Weakness Endocrine: reports: Unexplained Weight Gain Psychiatric: reports: Anxiety Physical Exam Vital Signs: Vital Signs Temperature 98.7 F 01/03/19 13:40 Pulse Rate 122 H 01/03/19 13:40 Respiratory Rate 16 01/03/19 13:40 Blood Pressure 127/58 L 01/03/19 13:40 O2 Sat by Pulse Oximetry (%) 98 01/03/19 09:00 Constitutional: Yes: Anxious Eyes: Yes: EOM Intact HENT: Yes: Normocephalic Neck: Yes: Decreased ROM Cardiovascular: Yes: Tachycardia Respiratory: Yes: Rales, SOB, Tachypnea Gastrointestinal: Yes: Abdomen, Obese ...Rectal Exam: Yes: Deferred Renal/: Yes: Massey Present Musculoskeletal: Yes: Back Pain, Joint Swelling, Muscle Pain, Muscle Weakness Extremities: Yes: WNL Edema: Yes Neurological: Yes: Alert, Oriented, Tremors Labs: CBC, BMP 01/03/19 06:00 01/03/19 06:00 Problem List - Problems (1) Acute metabolic encephalopathy Code(s): G93.41 - METABOLIC ENCEPHALOPATHY (2) Constipation Code(s): K59.00 - CONSTIPATION, UNSPECIFIED (3) Elevated troponin Code(s): R74.8 - ABNORMAL LEVELS OF OTHER SERUM ENZYMES (4) Hypoglycemia Code(s): E16.2 - HYPOGLYCEMIA, UNSPECIFIED (5) Hypoglycemia due to insulin Code(s): E16.0 - DRUG-INDUCED HYPOGLYCEMIA WITHOUT COMA; T38.3X5A - ADVERSE EFFECT OF INSULIN AND ORAL HYPOGLYCEMIC DRUGS, INIT (6) Tachycardia Code(s): R00.0 - TACHYCARDIA, UNSPECIFIED (7) UTI (urinary tract infection) Code(s): N39.0 - URINARY TRACT INFECTION, SITE NOT SPECIFIED Assessment/Plan Current Active Problems dm 2 neuropathy Acute metabolic encephalopathy (Acute) Constipation (Acute) Elevated troponin (Acute) Hypoglycemia (Acute) Hypoglycemia due to insulin (Acute) NSTEMI (non-ST elevated myocardial infarction) (Acute) Tachycardia (Acute) UTI (urinary tract infection) (Acute) Abnormal Lab Results 01/03/19 01/03/19 06:00 06:00 RBC 2.82 L Hgb 8.4 L Hct 25.3 L RDW 19.0 H Sodium 132 L Carbon Dioxide 18 L BUN 26 H Creatinine 1.4 H Calcium 7.5 L AST 11 L Troponin I 0.09 H Total Protein 5.5 L Albumin 2.4 L Laboratory Results - last 24 hr 01/02/19 01/03/19 01/03/19 23:02 01:24 05:50 WBC RBC Hgb Hct MCV MCH MCHC RDW Plt Count MPV Absolute Neuts (auto) Neutrophils % Lymphocytes % Monocytes % Eosinophils % Basophils % Nucleated RBC % Sodium Potassium Chloride Carbon Dioxide Anion Gap BUN Creatinine Creat Clearance w eGFR POC Glucometer 86 92 98 Random Glucose Calcium Total Bilirubin AST ALT Alkaline Phosphatase Creatine Kinase Troponin I Total Protein Albumin 01/03/19 01/03/19 01/03/19 06:00 06:00 11:24 WBC 5.7 RBC 2.82 L Hgb 8.4 L Hct 25.3 L MCV 89.5 MCH 29.7 MCHC 33.2 RDW 19.0 H Plt Count 163 MPV 8.2 D Absolute Neuts (auto) 4.3 Neutrophils % 74.7 Lymphocytes % 19.2 D Monocytes % 4.9 Eosinophils % 1.0 Basophils % 0.2 Nucleated RBC % 0 Sodium 132 L Potassium 5.1 Chloride 106 Carbon Dioxide 18 L Anion Gap 8 BUN 26 H Creatinine 1.4 H Creat Clearance w eGFR 50.86 POC Glucometer 196 Random Glucose 103 Calcium 7.5 L Total Bilirubin 0.2 AST 11 L ALT 15 Alkaline Phosphatase 95 Creatine Kinase 27 Troponin I 0.09 H Total Protein 5.5 L Albumin 2.4 L 01/03/19 01/03/19 16:31 22:16 WBC RBC Hgb Hct MCV MCH MCHC RDW Plt Count MPV Absolute Neuts (auto) Neutrophils % Lymphocytes % Monocytes % Eosinophils % Basophils % Nucleated RBC % Sodium Potassium Chloride Carbon Dioxide Anion Gap BUN Creatinine Creat Clearance w eGFR POC Glucometer 134 150 Random Glucose Calcium Total Bilirubin AST ALT Alkaline Phosphatase Creatine Kinase Troponin I Total Protein Albumin plan: bgm qachs novolog dc meftformin ckd levemir 15 units am hba1c nutrition consultation cgms as outpatient
[2019-01-04] MEDS ORDERED: PIPERACILLIN/TAZOBACTAM 2.25 GM VIAL IVPB ONE ×3 (01:02→18:01)
[2019-01-04] MEDS ORDERED: DEXTROSE 5%-WATER - 50 ML IVPB ONE ×3 (01:03→18:02)
[2019-01-04] MEDS: PIPERACILLIN/TAZOB 2.25 GM 2.25 GM in DEXTROSE 5%-WATER - 50 ML IVPB SCH ×3 (02:01→18:16)
[2019-01-04] MEDS: METHADONE HCL 10 MG TABLET PO SCH (06:45)
[2019-01-04] MEDS: INSULIN (LEVEMIR) 100 UNITS/ML UNITS SQ SCH (06:45)
[2019-01-04] MEDS: INSULIN SLIDING SCALE (NOVOLOG) 1 VIAL SQ SCH ×4 (06:49→21:19)
[2019-01-04] MEDS ORDERED: INSULIN (LEVEMIR) 100 UNITS/ML UNITS SQ SCH (07:00)
[2019-01-04] MEDS ORDERED: PT OWN MED DRAWER 7, Y5N ONE ×2 (07:39→21:18)
[2019-01-04] MEDS: MAG HYDROX/AL HYDROX/SIMETH 30 ML UNIT-DOSE CUP PO PRN (08:08)
[2019-01-04 08:14] LABS: ALBUMIN 2.5 g/dl (3.4-5.0); ALK PHOS 97 U/L (45-117); ANION GAP 6 MMOL/L (8-16); BILIRUBIN,TOTAL 0.2 mg/dL (0.2-1); BLOOD UREA NITROGEN 24 mg/dL (7-18); CALCIUM 7.8 mg/dL (8.5-10.1); CHLORIDE 108 mmol/L (98-107); CO2 22 mmol/L (21-32); CREATININE 1.4 mg/dL (0.55-1.3); GLUCOSE,RANDOM 122 mg/dL (74-106); POTASSIUM 5.2 mmol/L (3.5-5.1); SGOT/AST 18 U/L (15-37); SGPT/ALT 19 U/L (13-61); SODIUM 136 mmol/L (136-145); TOT PROT 5.9 g/dl (6.4-8.2)
--- NOTE | 2019-01-04 08:18 | PN ---
Progress Note, Physician History of Present Illness: resp distress this am on nrb also with tachycardia to 140- c/o back pain c/o methadone not working - Current Medication List Current Medications: Active Medications Al Hydroxide/Mg Hydroxide (Mylanta Oral Suspension -) 30 ml PO Q6H PRN PRN Reason: INDIGESTION Last Admin: 01/04/19 08:08 Dose: 30 ml Artificial Tears (Artificial Tears Ointment -) 1 applic OD HS PRN PRN Reason: DRY EYES Aspirin (Asa -) 81 mg PO DAILY [facility] Last Admin: 01/03/19 09:59 Dose: 81 mg Atorvastatin Calcium (Lipitor -) 80 mg PO HS [facility] Last Admin: 01/03/19 22:18 Dose: 80 mg Buspirone HCl 10 mg/ Buspirone (HCl 5 mg) 15 mg PO BID [facility] Calcium Carbonate/Cholecalciferol (Os-Kyler 500+D -) 1 tab PO BID [facility] Last Admin: 01/03/19 22:18 Dose: 1 tab Enalapril Maleate (Vasotec -) 20 mg PO DAILY [facility] Last Admin: 01/03/19 09:59 Dose: 20 mg Heparin Sodium (Porcine) (Heparin -) 5,000 unit SQ BID [facility] Last Admin: 01/03/19 22:18 Dose: 5,000 unit Dextrose (D5w -) 1,000 mls @ 35 mls/hr IV ASDIR [facility] Last Admin: 01/03/19 13:56 Dose: 35 mls/hr Piperacillin Sod/Tazobactam (Sod 2.25 gm/ Dextrose) 50 mls @ 100 mls/hr IVPB Q8H-IV [facility]; Protocol Last Admin: 01/04/19 02:01 Dose: 100 mls/hr Insulin Aspart (Novolog Vial Sliding Scale -) 1 vial SQ ACHS [facility]; Protocol Last Admin: 01/04/19 06:49 Dose: Not Given Insulin Detemir (Levemir Vial) 15 units SQ DAILY@0700 [facility] Last Admin: 01/04/19 06:45 Dose: 15 units Methadone HCl (Dolophine -) 30 mg PO DAILY@0600 [facility] Last Admin: 01/04/19 06:45 Dose: 30 mg Methylnaltrexone [place] (Relistor -) 12 mg SQ Q2D@1000 [facility] Metoprolol Tartrate (Lopressor -) 25 mg PO BID [facility] Oxycodone HCl (Roxicodone -) 10 mg PO Q6H PRN PRN Reason: PAIN LEVEL 6-10 Pantoprazole Sodium (Protonix Packets For Oral Suspension -) 40 mg PO DAILY [facility] Last Admin: 01/03/19 09:59 Dose: 40 mg Fluticasone/Salmeterol (Advair 100mcg/50mcg -) 1 puff IH BID [facility] Last Admin: 01/03/19 22:17 Dose: 1 puff Sertraline HCl (Zoloft -) 50 mg PO DAILY [facility] Last Admin: 01/03/19 09:59 Dose: 50 mg Tamsulosin HCl (Flomax -) 0.4 mg PO DAILY@0830 [facility] Last Admin: 01/03/19 09:58 Dose: 0.4 mg Tiotropium [place] (Spiriva Respimat) 2 puff IH DAILY [facility] Last Admin: 01/03/19 10:02 Dose: 2 puff Valacyclovir HCl (Valtrex -) 500 mg PO DAILY [facility] Last Admin: 01/03/19 09:59 Dose: 500 mg - Objective Vital Signs: Vital Signs Temperature 97.8 F 01/04/19 02:00 Pulse Rate 98 H 01/04/19 02:00 Respiratory Rate 20 01/04/19 02:00 Blood Pressure 139/59 L 01/04/19 02:00 O2 Sat by Pulse Oximetry (%) 97 01/03/19 21:00 Cardiovascular: Yes: Tachycardia, S1, S2 Respiratory: Yes: Diminished, On Venti-Mask, Rales Gastrointestinal: Yes: Normal Bowel Sounds, Soft Labs: CBC, BMP 01/03/19 06:00 01/04/19 06:30 INR, PTT INR 1.19 (0.83-1.09) H 01/01/19 16:40 Problem List - Problems (1) Tachycardia Assessment/Plan: lopressor given ivp lopressor 25 bid stat ekg consider cardizem drip cardio Code(s): R00.0 - TACHYCARDIA, UNSPECIFIED (2) Elevated troponin Assessment/Plan: telemetry cardiology follow up trend troponin asprin lipitor Code(s): R74.8 - ABNORMAL LEVELS OF OTHER SERUM ENZYMES (3) Hypoglycemia Assessment/Plan: monitor bgm endo Code(s): E16.2 - HYPOGLYCEMIA, UNSPECIFIED (4) NSTEMI (non-ST elevated myocardial infarction) Assessment/Plan: as above Code(s): I21.4 - NON-ST ELEVATION (NSTEMI) MYOCARDIAL INFARCTION (5) Respiratory distress Assessment/Plan: stat cxr pt with h/o chf depends on cxr--lascaryn nebs pulm transfer to ICU Code(s): R06.03 - ACUTE RESPIRATORY DISTRESS (6) Substance abuse Assessment/Plan: metahdone oxy pain management Code(s): F19.10 - OTHER PSYCHOACTIVE SUBSTANCE ABUSE, UNCOMPLICATED (7) UTI (urinary tract infection) Assessment/Plan: -abx per id -follow cultures Code(s): N39.0 - URINARY TRACT INFECTION, SITE NOT SPECIFIED
[2019-01-04] MEDS ORDERED: HYDROmorphone HCl 2 MG/ML VIAL IVPB ONE (08:30)
[2019-01-04] MEDS ORDERED: DILTIAZEM INJECTION 125 MG in DEXTROSE 5%-WATER - 100 ML IVPB SCH (08:30)
[2019-01-04] MEDS ORDERED: CALCIUM GLUCONATE 10% - 1,000 MG/10 ML VIAL IVPB ONE (08:41)
--- NOTE | 2019-01-04 09:09 | CONSULT ---
Consult Consult Specialty:: ICU Referred by:: Dr Gallegos Reason for Consultation:: Tachycardia - History of Present Illness Chief Complaint: Tachycardia and SOB History of Present Illness: Pt is a 63 yo M with a PMHx of HTN, HLD, IDDM, Hep C (on Harvoni), PVD/LE ulcers , opioid use (on methadone), and recent dx of multiple myeloma was brought in by ambulance for hypoglycemia. Was recently discharged from the hospital (12/26, 12/23, 12/21) after prolonged ICU (11/20-12/21) stay to a rehab facility, from which he signed himself out, took insulin himself without checking his blood glucose first, and became confused, diaphoretic. ICU was called to evaluate today after a rapid response was called for tachycardia (sinus in the 140s) - EKG was done. Pt was initially on nasal cannular O2 supplementation, but post rapid response was placed on NRB at which he was sating about 97%. No chest pain , but patient reported severe lower back pain. He had received his methadone dose in the am and subsequently received dilaudid for the pain. We attempted to wean him on to venturimask but pts sats were between 93-94 so we put him back on NRB. CXR- showed patchy bilateral opacities which appeared worse than prior. Of note , in pt's previous ICU admission he had flash pulm edema and had to be intubated for long. We ordered abgs and levalbuterol (pulm only) and will re assess him as needed. 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: Peripheral Neuropathy (stocking glove distribution related to DM) Cardio/Vascular: Yes: HTN, Hyperlipdemia Pulmonary: Yes: Asthma, Other (left chest tube for rib fracture related pneumothorax afte a fall) Gastrointestinal: Yes: Constipation Hepatobiliary: Yes: Hepatitis C (cured several years ago with Dr Bedolla) Renal/: Yes: Renal Inusuff Infectious Disease: Yes: Other (Hepatitis C cured) Psych: Yes: Depression Musculoskeletal: Yes: Chronic low back pain, Other (multiple thoracolumbar vertebral fractures) Endocrine: Yes: Diabetes Mellitus Dermatology: Yes: Other (varicose veins) Additional Medical History: Laser therapy for diabetic retinopathy - Past Surgical History Past Surgical History: Yes: Amputation (5th digit R foot), Tonsillectomy - Alcohol/Substance Use Hx Alcohol Use: No History of Substance Use: reports: None (snorted), Cocaine, Heroin (sorteh) - Smoking History Smoking history: Former smoker Have you smoked in the past 12 months: No If you are a former smoker, when did you quit?: 1996 - Social History Usual Living Arrangement: With Spouse ADL: Independent 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 History of Recent Travel: Yes (to [place] in past 2 weeks ) Home Medications - Allergies Allergies/Adverse Reactions: Allergies Allergy/AdvReac Type Severity Reaction Status Date / Time No Known Allergies Allergy Verified 01/01/19 16:16 - Home Medications Home Medications: Ambulatory Orders Insulin Glargine,Hum.rec.anlog [Lantus (10mL VIAL) -] 40 unit SQ HS 06/07/15 Acetaminophen [Tylenol .Regular Strength -] 650 mg PO Q6H PRN #0 tablet Buspirone HCl 15 mg PO BID 07/22/18 Ammonium Lactate Lotion [Lac-Hydrin 12] 1 applic TP BID PRN bottle 12/21/18 Aspirin [ASA -] 81 mg PO DAILY tab.chew 12/21/18 Atorvastatin Ca [Lipitor] 80 mg PO HS tablet 12/21/18 Calcium 500Mg/Vit-D 200 Units [Os-Kyler 500+D -] 2 tab PO DAILY tab 12/21/18 Heparin - 5,000 unit SQ BID vial 12/21/18 Insulin Sliding Scale [Novolog Vial Sliding Scale -] 1 vial SQ TIDAC units Methadone HCl 20 mg PO DAILY #60 tablet MDD 2 12/21/18 Metoprolol Tartrate [Lopressor -] 25 mg PO BID tablet 12/21/18 Nystatin Oral Suspension - [Nystatin Oral Susp 329438 Units/5 ML -] 500,000 units PO Q6HPO cup 12/21/18 Ocular Lubricant Ophth Oint [Lacri-Lube S.o.p -] 1 applic OD HS PRN tube Pantoprazole Suspension [Protonix Packets For Oral Suspension -] 40 mg PO DAILY packet 12/21/18 Polyethylene Glycol 3350 [Miralax 119 gm Btl -] 17 gm PO BID bottle 12/21/18 Tamsulosin HCl [Flomax -] 0.8 mg PO DAILY@0830 cap.er.24h 12/21/18 Tiotropium [place] [Spiriva Respimat] 2 puff IH DAILY inhaler 12/21/18 Family Disease History - Family Disease History Family Disease History: CA: Mother, Other: Father ( 90 natural causes), Mother, Brother Physical Exam Vital Signs: Vital Signs Temperature 98.2 F 01/04/19 06:00 Pulse Rate 85 01/04/19 06:00 Respiratory Rate 20 01/04/19 06:00 Blood Pressure 124/78 01/04/19 06:00 O2 Sat by Pulse Oximetry (%) 97 01/03/19 21:00 Constitutional: Yes: Diaphoresis, Moderate Distress, Other (anxious) Eyes: Yes: EOM Intact HENT: Yes: Atraumatic Neck: Yes: Supple Cardiovascular: Yes: Tachycardia, S1, S2 Respiratory: Yes: Rales, Wheezes Gastrointestinal: Yes: Abdomen, Obese Edema: No Peripheral Pulses WNL: Yes Neurological: Yes: Alert, Oriented. No: Confusion, Facial Droop, Numbness ...Motor Strength: WNL Psychiatric: Yes: Alert, Oriented Labs: CBC, BMP 01/03/19 06:00 01/04/19 06:30 Imaging - Results Chest X-ray: Report Reviewed (Blateral basal infiltrates/pleural changes), Image Reviewed (Bilateral infiltrates) Assessment/Plan Ambulatory Orders Insulin Glargine,Hum.rec.anlog [Lantus (10mL VIAL) -] 40 unit SQ HS 06/07/15 Acetaminophen [Tylenol .Regular Strength -] 650 mg PO Q6H PRN #0 tablet Buspirone HCl 15 mg PO BID 07/22/18 Ammonium Lactate Lotion [Lac-Hydrin 12] 1 applic TP BID PRN bottle 12/21/18 Aspirin [ASA -] 81 mg PO DAILY tab.chew 12/21/18 Atorvastatin Ca [Lipitor] 80 mg PO HS tablet 12/21/18 Calcium 500Mg/Vit-D 200 Units [Os-Kyler 500+D -] 2 tab PO DAILY tab 12/21/18 Heparin - 5,000 unit SQ BID vial 12/21/18 Insulin Sliding Scale [Novolog Vial Sliding Scale -] 1 vial SQ TIDAC units Methadone HCl 20 mg PO DAILY #60 tablet MDD 2 12/21/18 Metoprolol Tartrate [Lopressor -] 25 mg PO BID tablet 12/21/18 Nystatin Oral Suspension - [Nystatin Oral Susp 632634 Units/5 ML -] 500,000 units PO Q6HPO cup 12/21/18 Ocular Lubricant Ophth Oint [Lacri-Lube S.o.p -] 1 applic OD HS PRN tube Pantoprazole Suspension [Protonix Packets For Oral Suspension -] 40 mg PO DAILY packet 12/21/18 Polyethylene Glycol 3350 [Miralax 119 gm Btl -] 17 gm PO BID bottle 12/21/18 Tamsulosin HCl [Flomax -] 0.8 mg PO DAILY@0830 cap.er.24h 12/21/18 Tiotropium [place] [Spiriva Respimat] 2 puff IH DAILY inhaler 12/21/18 Current Medications Al Hydroxide/Mg Hydroxide (Mylanta Oral Suspension -) 30 ml PO Q6H PRN PRN Reason: INDIGESTION Last Admin: 01/04/19 08:08 Dose: 30 ml Artificial Tears (Artificial Tears Ointment -) 1 applic OD HS PRN PRN Reason: DRY EYES Aspirin (Asa -) 81 mg PO DAILY [facility] Last Admin: 01/04/19 10:45 Dose: 81 mg Atorvastatin Calcium (Lipitor -) 80 mg PO HS [facility] Last Admin: 01/03/19 22:18 Dose: 80 mg Buspirone HCl 10 mg/ Buspirone (HCl 5 mg) 15 mg PO BID [facility] Last Admin: 01/04/19 10:47 Dose: 15 mg Calcium Carbonate/Cholecalciferol (Os-Kyler 500+D -) 1 tab PO BID [facility] Last Admin: 01/04/19 10:46 Dose: 1 tab Enalapril Maleate (Vasotec -) 20 mg PO DAILY [facility] Last Admin: 01/04/19 10:59 Dose: 20 mg Furosemide (Lasix Injection -) 40 mg IVPUSH BID@0600,1400 [facility] Heparin Sodium (Porcine) (Heparin -) 5,000 unit SQ BID [facility] Last Admin: 01/04/19 10:47 Dose: 5,000 unit Dextrose (D5w -) 1,000 mls @ 35 mls/hr IV ASDIR [facility] Last Admin: 01/03/19 13:56 Dose: 35 mls/hr Piperacillin Sod/Tazobactam (Sod 2.25 gm/ Dextrose) 50 mls @ 100 mls/hr IVPB Q8H-IV [facility]; Protocol Last Admin: 01/04/19 02:01 Dose: 100 mls/hr Insulin Aspart (Novolog Vial Sliding Scale -) 1 vial SQ ACHS [facility]; Protocol Last Admin: 01/04/19 06:49 Dose: Not Given Insulin Detemir (Levemir Vial) 15 units SQ DAILY@0700 [facility] Last Admin: 01/04/19 06:45 Dose: 15 units Methadone HCl (Dolophine -) 30 mg PO DAILY@0600 [facility] Last Admin: 01/04/19 06:45 Dose: 30 mg Methylnaltrexone [place] (Relistor -) 12 mg SQ Q2D@1000 [facility] Metoprolol Tartrate (Lopressor -) 25 mg PO BID [facility] Last Admin: 01/04/19 10:46 Dose: 25 mg Oxycodone HCl (Roxicodone -) 10 mg PO Q6H PRN PRN Reason: PAIN LEVEL 6-10 Pantoprazole Sodium (Protonix Packets For Oral Suspension -) 40 mg PO DAILY [facility] Last Admin: 01/04/19 10:46 Dose: 40 mg Fluticasone/Salmeterol (Advair 100mcg/50mcg -) 1 puff IH BID [facility] Last Admin: 01/04/19 10:46 Dose: 1 puff Sertraline HCl (Zoloft -) 50 mg PO DAILY [facility] Last Admin: 01/04/19 10:45 Dose: 50 mg Tamsulosin HCl (Flomax -) 0.4 mg PO DAILY@0830 [facility] Last Admin: 01/04/19 11:00 Dose: 0.4 mg Tiotropium [place] (Spiriva Respimat) 2 puff IH DAILY [facility] Last Admin: 01/04/19 10:46 Dose: 2 puff Valacyclovir HCl (Valtrex -) 500 mg PO DAILY [facility] Last Admin: 01/04/19 10:45 Dose: 500 mg Pt is a 63 yo M with a PMHx of HTN, HLD, IDDM, Hep C (on Harvoni), PVD/LE ulcers , opioid use (on methadone), and recent dx of multiple myeloma was brought in by ambulance for hypoglycemia with ICU consulted for sinus tachycardia and hypoxia. Neuro Pt alert and oriented, was agitated and in pain when seen initially After pain meds was less agitated #Chronic pain -opiate use disorder on methadone-Cont Respiratory #SOB Likely secondary to fluid overload Pt tolerated NRB better than ventimask initially Iv lasix 40mg stat given Stat CBC, CMP, trops Stat abg- Some acidosis Nebs-ipratropium/albuterol- given Re-assessment following nebs and lasix- improved breathing Improve respiration, crackles/wheeze improved Wean off NRB to ventimask-d/w with nurse Pt does not require bipap or intubation at this time Will continiue to benefit from close monitoring on tele Cardiovascular #Tachycardia sinus tachy in setting of pain/agitation Pt received dilaudid brianne blockers held Lasix given in setting of fluid overload Tachycardia improved on re-assessment Trops ordered-8.1 (no EKG changes) Pt with CKD had no chest pain at time of SOB Cardiol- Consult- Dr Balbuena D/W cardiol (Dr Ram), Pt will need medical optimization prior to any intervention - Add clopidogrel, -trops likely in setting of fluid overload, cont lasix 40bid -Sinus tachy on EKG no new ischemic changes noted -Cont to monitor on tele Follow trops CXR in am #HTN Pt on enalapril, metoprolol- Cont #HLD Cont atorvastatin #PVD/LE ulcers Cont ASA Endo IDDM Cont levemir, ISS GI Hep C (on Harvoni) Hemonc recent dx of multiple myeloma Pt noted to have started treatment earlier Renal CKD Avoid nephrotoxic drugs No standing fluids hyperkalemia correction with albuterol, kayexalate and insulin PPx On hep sq Dispo Pt 's shortness of breath is improving on supplemental oxygen and diuresis Tropinemia without chest pain or EKG changes Cont to monitor on tele does not require ICU level care at this time D/W Dr Last Visit type - Emergency Visit Emergency Visit: Yes ED Registration Date: 01/04/19 Care time: The patient presented to the Emergency Department on the above date and was hospitalized for further evaluation of their emergent condition. - New Patient This patient is new to me today: Yes Date on this admission: 01/04/19 - Critical Care Critical Care patient: Yes Total Critical Care Time (in minutes): 35 Critical Care Statement: The care of this patient involved high complexity decision making to prevent further life threatening deterioration of the patient 's condition and/or to evaluate & treat vital organ system(s) failure or risk of failure.
[2019-01-04 09:29] LABS: ARTERIAL BLD GAS O2 SATURATION 98.3 % (95-98); ARTERIAL BLOOD GAS PCO2 43.5 mmHg (35-45); ARTERIAL BLOOD GAS PO2 122 mmHg (80-105); ARTERIAL BLOOD GAS pH 7.25 (7.35-7.45)
[2019-01-04 09:31] LABS: ALLENS TEST POSITIVE
[2019-01-04] MEDS ORDERED: FUROSEMIDE 40 MG/4 ML INJECTABLE VIAL IVPUSH ONE ×2 (09:47→12:21)
[2019-01-04] MEDS ORDERED: IPRATROPIUM BR 0.02% 0.5 MG/2.5 ML VIAL.NEB. NEB ONE (09:48)
[2019-01-04] MEDS ORDERED: ALBUTEROL SO4 0.042% IH SOL 1.25 MG/3 ML VIAL.NEB NEB ONE (09:48)
[2019-01-04] MEDS ORDERED: Methylnaltrexone Bromide 12 MG/0.6 ML KIT SQ SCH (10:00)
[2019-01-04] MEDS ORDERED: METOPROLOL TARTRATE 25 MG TABLET (FP) PO SCH (10:00)
[2019-01-04] MEDS: valACYclovir HCL 500 MG TABLET (FP) PO SCH (10:45)
[2019-01-04] MEDS: SERTRALINE HCL 50 MG TABLET (FP) PO SCH (10:45)
[2019-01-04] MEDS: ASPIRIN 81 MG CHEWABLE TABLETS PO SCH (10:45)
[2019-01-04] MEDS: CALCIUM 500MG/VIT-D 200 UNITS COMBO TABLET (FP) PO SCH ×2 (10:46→21:15)
[2019-01-04] MEDS: PANTOPRAZOLE SOD 40 MG SUSPENSION PACKET PO SCH (10:46)
[2019-01-04] MEDS: FLUTICASONE/SALMETEROL 100 MCG/50 MCG DISKUS IH SCH ×2 (10:46→21:16)
[2019-01-04] MEDS: TIOTROPIUM BROMIDE 2.5 MCG (SPIRIVA) RESPIMAT INHALER IH SCH (10:46)
[2019-01-04] MEDS: BUSPIRONE HCL 10 MG, BUSPIRONE HCL 5 MG PO SCH ×2 (10:47→21:19)
[2019-01-04] MEDS: HEPARIN NA (PORCINE) 5,000 UNITS/ML 1ML VIAL SQ SCH ×2 (10:47→21:15)
[2019-01-04] MEDS: ENALAPRIL MALEATE 10 MG TABLET (FP) PO SCH (10:59)
[2019-01-04] MEDS: TAMSULOSIN HCL 0.4 MG CAP PO SCH (11:00)
[2019-01-04 11:14] LABS: BASO % 0.5 % (0-2.0); EOS % 0.3 % (0-4.5); HEMATOCRIT 25.6 % (35.4-49); HEMOGLOBIN 8.3 GM/dL (11.7-16.9); LYMPH % 5.5 % (8-40); MCH 29.5 pg (25.7-33.7); MCHC 32.5 g/dl (32.0-35.9); MEAN CELL VOLUME 90.6 fl (80-96); MEAN PLT VOLUME 7.6 fl (7.5-11.1); NEUT % 90.7 % (42.8-82.8); PLATELET COUNT 174 K/MM3 (134-434); RBC 2.83 M/mm3 (4.00-5.60); RDW 19.2 % (11.9-15.9); WHITE BLOOD COUNT 7.8 K/mm3 (4.0-10.0)
[2019-01-04 12:01] LABS: ALBUMIN 2.4 g/dl (3.4-5.0); ALK PHOS 95 U/L (45-117); ANION GAP 7 MMOL/L (8-16); BILIRUBIN,TOTAL 0.2 mg/dL (0.2-1); BLOOD UREA NITROGEN 23 mg/dL (7-18); CALCIUM 7.4 mg/dL (8.5-10.1); CHLORIDE 109 mmol/L (98-107); CO2 21 mmol/L (21-32); CREATININE 1.5 mg/dL (0.55-1.3); GLUCOSE,RANDOM 174 mg/dL (74-106); POTASSIUM 5.7 mmol/L (3.5-5.1); SGOT/AST 55 U/L (15-37); SGPT/ALT 20 U/L (13-61); SODIUM 138 mmol/L (136-145); TOT PROT 5.5 g/dl (6.4-8.2)
[2019-01-04 12:14] LABS: ANISOCYTOSIS 1+; MACROCYTOSIS 0; OVALOCYTE 1+; PLATELET ESTIMATE NORMAL; TEAR DROP CELLS 1+
--- NOTE | 2019-01-04 12:21 | PN ---
Progress Note, Physician History of Present Illness: Pt seen and examined at bedside. He was short of breath today. He denies chest pain. - Current Medication List Current Medications: Active Medications Al Hydroxide/Mg Hydroxide (Mylanta Oral Suspension -) 30 ml PO Q6H PRN PRN Reason: INDIGESTION Last Admin: 01/04/19 08:08 Dose: 30 ml Artificial Tears (Artificial Tears Ointment -) 1 applic OD HS PRN PRN Reason: DRY EYES Aspirin (Asa -) 81 mg PO DAILY [facility] Last Admin: 01/04/19 10:45 Dose: 81 mg Atorvastatin Calcium (Lipitor -) 80 mg PO HS [facility] Last Admin: 01/03/19 22:18 Dose: 80 mg Buspirone HCl 10 mg/ Buspirone (HCl 5 mg) 15 mg PO BID [facility] Last Admin: 01/04/19 10:47 Dose: 15 mg Calcium Carbonate/Cholecalciferol (Os-Kyler 500+D -) 1 tab PO BID [facility] Last Admin: 01/04/19 10:46 Dose: 1 tab Enalapril Maleate (Vasotec -) 20 mg PO DAILY [facility] Last Admin: 01/04/19 10:59 Dose: 20 mg Furosemide (Lasix Injection -) 40 mg IVPUSH BID@0600,1400 [facility] Heparin Sodium (Porcine) (Heparin -) 5,000 unit SQ BID [facility] Last Admin: 01/04/19 10:47 Dose: 5,000 unit Dextrose (D5w -) 1,000 mls @ 35 mls/hr IV ASDIR [facility] Last Admin: 01/03/19 13:56 Dose: 35 mls/hr Piperacillin Sod/Tazobactam (Sod 2.25 gm/ Dextrose) 50 mls @ 100 mls/hr IVPB Q8H-IV [facility]; Protocol Last Admin: 01/04/19 02:01 Dose: 100 mls/hr Insulin Aspart (Novolog Vial Sliding Scale -) 1 vial SQ ACHS [facility]; Protocol Last Admin: 01/04/19 06:49 Dose: Not Given Insulin Detemir (Levemir Vial) 15 units SQ DAILY@0700 [facility] Last Admin: 01/04/19 06:45 Dose: 15 units Methadone HCl (Dolophine -) 30 mg PO DAILY@0600 [facility] Last Admin: 01/04/19 06:45 Dose: 30 mg Methylnaltrexone [place] (Relistor -) 12 mg SQ Q2D@1000 [facility] Metoprolol Tartrate (Lopressor -) 25 mg PO BID [facility] Last Admin: 01/04/19 10:46 Dose: 25 mg Oxycodone HCl (Roxicodone -) 10 mg PO Q6H PRN PRN Reason: PAIN LEVEL 6-10 Pantoprazole Sodium (Protonix Packets For Oral Suspension -) 40 mg PO DAILY [facility] Last Admin: 01/04/19 10:46 Dose: 40 mg Fluticasone/Salmeterol (Advair 100mcg/50mcg -) 1 puff IH BID [facility] Last Admin: 01/04/19 10:46 Dose: 1 puff Sertraline HCl (Zoloft -) 50 mg PO DAILY [facility] Last Admin: 01/04/19 10:45 Dose: 50 mg Tamsulosin HCl (Flomax -) 0.4 mg PO DAILY@0830 [facility] Last Admin: 01/04/19 11:00 Dose: 0.4 mg Tiotropium [place] (Spiriva Respimat) 2 puff IH DAILY [facility] Last Admin: 01/04/19 10:46 Dose: 2 puff Valacyclovir HCl (Valtrex -) 500 mg PO DAILY [facility] Last Admin: 01/04/19 10:45 Dose: 500 mg - Objective Vital Signs: Vital Signs Temperature 97.9 F 01/04/19 08:00 Pulse Rate 120 H 01/04/19 09:27 Respiratory Rate 20 01/04/19 09:27 Blood Pressure 115/68 01/04/19 09:27 O2 Sat by Pulse Oximetry (%) 100 01/04/19 09:00 Constitutional: Yes: Anxious Eyes: Yes: Conjunctiva Clear Cardiovascular: Yes: S1, S2 Respiratory: Yes: On Venti-Mask Gastrointestinal: Yes: Soft Genitourinary: Yes: [place] Present Musculoskeletal: Yes: WNL Edema: LLE: Trace, RLE: Trace Neurological: Yes: Oriented Psychiatric: Yes: Oriented Labs: CBC, BMP 01/04/19 10:45 01/04/19 10:45 INR, PTT INR 1.19 (0.83-1.09) H 01/01/19 16:40 - ....Imaging Chest X-ray: Report Reviewed Assessment/Plan Current Medications Generic Name Dose Route Start Last Admin Trade Name Freq PRN Reason Stop Dose Admin Al Hydroxide/Mg Hydroxide 30 ml 01/03/19 11:35 01/04/19 08:08 Mylanta Oral Suspension - PO 30 ml Q6H PRN Administration INDIGESTION Artificial Tears 1 applic 01/01/19 19:22 Artificial Tears Ointment - OD HS PRN DRY EYES Aspirin 81 mg 01/02/19 10:00 01/04/19 10:45 Asa - PO 81 mg DAILY Y[facility] Administration Atorvastatin Calcium 80 mg 01/01/19 22:00 01/03/19 22:18 Lipitor - PO 80 mg HS YAKOV Administration Buspirone HCl 10 mg/ Buspirone 15 mg 01/04/19 10:00 01/04/19 10:47 HCl 5 mg PO 15 mg BID YAKOV Administration Calcium Carbonate/Cholecalciferol 1 tab 01/02/19 10:00 01/04/19 10:46 Os-Kyler 500+D - PO 1 tab BID [facility] Administration Enalapril Maleate 20 mg 01/02/19 10:00 01/04/19 10:59 Vasotec - PO 20 mg DAILY [facility] Administration Furosemide 40 mg 01/04/19 14:00 Lasix Injection - IVPUSH BID@0600,1400 [facility] Heparin Sodium (Porcine) 5,000 unit 01/01/19 22:00 01/04/19 10:47 Heparin - SQ 5,000 unit BID [facility] Administration Dextrose 1,000 mls @ 35 mls/hr 01/03/19 13:21 01/03/19 13:56 D5w - IV 35 mls/hr ASDIR [facility] Administration Piperacillin Sod/Tazobactam 50 mls @ 100 mls/hr 01/03/19 18:00 01/04/19 02:01 Sod 2.25 gm/ Dextrose IVPB 100 mls/hr Q8H-IV [facility] Administration Protocol Insulin Aspart 1 vial 01/01/19 22:00 01/04/19 06:49 Novolog Vial Sliding Scale - [facility] Insulin Detemir 15 units 01/04/19 07:00 01/04/19 06:45 Levemir Vial SQ 15 units DAILY@0700 [facility] Administration Methadone HCl 30 mg 01/04/19 06:00 01/04/19 06:45 Dolophine - PO 30 mg DAILY@0600 [facility] Administration Methylnaltrexone [place] 12 mg 01/04/19 10:00 Relistor - SQ Q2D@1000 [facility] Metoprolol Tartrate 25 mg 01/04/19 10:00 01/04/19 10:46 Lopressor - PO 25 mg BID [facility] Administration Oxycodone HCl 10 mg 01/04/19 08:16 Roxicodone - PO Q6H PRN PAIN LEVEL 6-10 Pantoprazole Sodium 40 mg 01/02/19 10:00 01/04/19 10:46 Protonix Packets For Oral Suspension - PO 40 mg DAILY [facility] Administration Fluticasone/Salmeterol 1 puff 01/01/19 22:00 01/04/19 10:46 Advair 100mcg/50mcg - IH 1 puff BID [facility] Administration Sertraline HCl 50 mg 01/02/19 10:00 01/04/19 10:45 Zoloft - PO 50 mg DAILY [facility] Administration Tamsulosin HCl 0.4 mg 01/02/19 08:30 01/04/19 11:00 Flomax - PO 0.4 mg DAILY@0830 [facility] Administration Tiotropium [place] 2 puff 01/02/19 10:00 01/04/19 10:46 Spiriva Respimat IH 2 puff DAILY [facility] Administration Valacyclovir HCl 500 mg 01/02/19 10:00 01/04/19 10:45 Valtrex - PO 500 mg DAILY [facility] Administration Impression 1. hyponatremia 2. CKD 3. hypoglycemia 4. htn 5. DM 6. 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 multiple myeloma 9. anemia 10. proteinuria 11. hyperkalemia Plan - d/c fluids and monitor glucose - give dose of lasix - cont oxygen and monitor pulse ox - lasix should help with potassium - low potassium diet - repeat cxr in am - avoid nsaids
[2019-01-04] MEDS: oxyCODONE HCL 5 MG TABLET PO PRN ×2 (12:29→18:17)
[2019-01-04] MEDS ORDERED: SODIUM BICARBONATE 8.4% 50 MEQ/50 ML DISP.SYRIN IVPUSH ONE (12:33)
--- NOTE | 2019-01-04 12:56 | PN ---
Progress Note (short form) - Note Progress Note: Patient seen and examined Episode of SOB and dyspnea Increased bone pains On nasal O-2 Last Vital Signs Temp Pulse Resp BP Pulse Ox 97.9 F 120 H 20 115/68 100 01/04/19 08:00 01/04/19 09:27 01/04/19 09:27 01/04/19 09:27 01/04/19 09:00 HEENT: [place], EOM Intact Oropharynx: No thrush, No mucositis Cor: RSR, No murmurs, No gallops Lungs: rales bilateral with diminished breath sounds Abd: Soft, Normal bowel sounds, No organomegaly Ext:No significant edema Skin: No rashes, Integument intact CBC, BMP 01/04/19 10:45 01/04/19 10:45 Current Medications Generic Name Dose Route Start Last Admin Trade Name Freq PRN Reason Stop Dose Admin Al Hydroxide/Mg Hydroxide 30 ml 01/03/19 11:35 01/04/19 08:08 Mylanta Oral Suspension - PO 30 ml Q6H PRN Administration INDIGESTION Artificial Tears 1 applic 01/01/19 19:22 Artificial Tears Ointment - OD HS PRN DRY EYES Aspirin 81 mg 01/02/19 10:00 01/04/19 10:45 Asa - PO 81 mg DAILY [facility] Administration Atorvastatin Calcium 80 mg 01/01/19 22:00 01/03/19 22:18 Lipitor - PO 80 mg HS YAKOV Administration Buspirone HCl 10 mg/ Buspirone 15 mg 01/04/19 10:00 01/04/19 10:47 HCl 5 mg PO 15 mg BID [facility] Administration Calcium Carbonate/Cholecalciferol 1 tab 01/02/19 10:00 01/04/19 10:46 Os-Kyler 500+D - PO 1 tab BID [facility] Administration Enalapril Maleate 20 mg 01/02/19 10:00 01/04/19 10:59 Vasotec - PO 20 mg DAILY [facility] Administration Furosemide 40 mg 01/04/19 14:00 Lasix Injection - IVPUSH BID@0600,1400 [facility] Heparin Sodium (Porcine) 5,000 unit 01/01/19 22:00 01/04/19 10:47 Heparin - SQ 5,000 unit BID [facility] Administration Piperacillin Sod/Tazobactam 50 mls @ 100 mls/hr 01/03/19 18:00 01/04/19 10:35 Sod 2.25 gm/ Dextrose IVPB 100 mls/hr Q8H-IV [facility] Administration Protocol Insulin Aspart 1 vial 01/01/19 22:00 01/04/19 12:30 Novolog Vial Sliding Scale - SQ 2 unit ACHS [facility] Administration Protocol Insulin Detemir 15 units 01/04/19 07:00 01/04/19 06:45 Levemir Vial SQ 15 units DAILY@0700 [facility] Administration Methadone HCl 30 mg 01/04/19 06:00 01/04/19 06:45 Dolophine - PO 30 mg DAILY@0600 [facility] Administration Methylnaltrexone [place] 12 mg 01/04/19 10:00 Relistor - SQ Q2D@1000 [facility] Metoprolol Tartrate 25 mg 01/04/19 10:00 01/04/19 10:46 Lopressor - PO 25 mg BID YAKOV Administration Oxycodone HCl 10 mg 01/04/19 08:16 01/04/19 12:29 Roxicodone - PO 10 mg Q6H PRN Administration PAIN LEVEL 6-10 Pantoprazole Sodium 40 mg 01/02/19 10:00 01/04/19 10:46 Protonix Packets For Oral Suspension - PO 40 mg DAILY [facility] Administration Fluticasone/Salmeterol 1 puff 01/01/19 22:00 01/04/19 10:46 Advair 100mcg/50mcg - IH 1 puff BID [facility] Administration Sertraline HCl 50 mg 01/02/19 10:00 01/04/19 10:45 Zoloft - PO 50 mg DAILY [facility] Administration Tamsulosin HCl 0.4 mg 01/02/19 08:30 01/04/19 11:00 Flomax - PO 0.4 mg DAILY@0830 [facility] Administration Tiotropium [place] 2 puff 01/02/19 10:00 01/04/19 10:46 Spiriva Respimat IH 2 puff DAILY [facility] Administration Valacyclovir HCl 500 mg 01/02/19 10:00 01/04/19 10:45 Valtrex - PO 500 mg DAILY [facility] Administration Impression Myeloma Anemia SOB--chest x-ray - chf Hyperkalemia DM Methadone maintenance Plan: per renal-- IV lasix Hold fluids Monitor K+ after lasix.
[2019-01-04] MEDS ORDERED: INSULIN REGULAR HUMAN 100 UNITS/ML *VIAL IVPUSH ONE (13:12)
[2019-01-04] MEDS ORDERED: DEXTROSE 50%-WATER - 25 GM/50 ML VIAL IVPUSH ONE (13:12)
[2019-01-04] MEDS ORDERED: SODIUM POLYSTYRENE SULFONATE 15 GM/60 ML BOTTLE PO ONE (13:14)
[2019-01-04] MEDS: Methylnaltrexone Bromide 12 MG/0.6 ML KIT SQ SCH (13:19)
[2019-01-04] MEDS ORDERED: LEVALBUTEROL HCL 0.63 MG/3 ML VIAL.NEB. IH SCH (14:00)
--- NOTE | 2019-01-04 14:07 | PN ---
Progress Note, Physician Chief Complaint: Pt was treated with IVF. [place] SOB with SSCP radiating to the back. Telemetry showed sinus tachycardia HR 140s-150. ECG unchanged other than sinus tachy. He was given IV lasix with significant UO and resolution of his symptoms. Now wo chest pain. History of Present Illness: 63 yo man recently diagnosed with mult. mylemona, recently discharged from inpatient- (was in ICU intubated for pneumonia and respiratory failure) to rehab facility. He signed himself out of rehab this morning and took insulin sc dose and was later found to be obtunded and diaphoretic, shakey, glucometer was not readable. He was then brought to the hospital and received d50 IV, after which his mental status returned to baseline. Noted to have elevated TP level. Echocardiogram showed EF 45-50% without regional variability. Unchanged from echo done 11/2018. - Current Medication List Current Medications: Active Medications Al Hydroxide/Mg Hydroxide (Mylanta Oral Suspension -) 30 ml PO Q6H PRN PRN Reason: INDIGESTION Last Admin: 01/04/19 08:08 Dose: 30 ml Artificial Tears (Artificial Tears Ointment -) 1 applic OD HS PRN PRN Reason: DRY EYES Aspirin (Asa -) 81 mg PO DAILY [facility] Last Admin: 01/04/19 10:45 Dose: 81 mg Atorvastatin Calcium (Lipitor -) 80 mg PO HS [facility] Last Admin: 01/03/19 22:18 Dose: 80 mg Buspirone HCl 10 mg/ Buspirone (HCl 5 mg) 15 mg PO BID [facility] Last Admin: 01/04/19 10:47 Dose: 15 mg Calcium Carbonate/Cholecalciferol (Os-Kyler 500+D -) 1 tab PO BID [facility] Last Admin: 01/04/19 10:46 Dose: 1 tab Clopidogrel Bisulfate (Plavix -) 300 mg PO ONCE ONE Stop: 01/04/19 13:59 Clopidogrel Bisulfate (Plavix -) 75 mg PO DAILY [facility] Furosemide (Lasix Injection -) 40 mg IVPUSH BID@0600,1400 [facility] Heparin Sodium (Porcine) (Heparin -) 5,000 unit SQ BID [facility] Last Admin: 01/04/19 10:47 Dose: 5,000 unit Piperacillin Sod/Tazobactam (Sod 2.25 gm/ Dextrose) 50 mls @ 100 mls/hr IVPB Q8H-IV [facility]; Protocol Last Admin: 01/04/19 10:35 Dose: 100 mls/hr Insulin Aspart (Novolog Vial Sliding Scale -) 1 vial SQ ACHS [facility]; Protocol Last Admin: 01/04/19 12:30 Dose: 2 unit Insulin Detemir (Levemir Vial) 15 units SQ DAILY@0700 [facility] Last Admin: 01/04/19 06:45 Dose: 15 units Methadone HCl (Dolophine -) 30 mg PO DAILY@0600 [facility] Last Admin: 01/04/19 06:45 Dose: 30 mg Methylnaltrexone [place] (Relistor -) 12 mg SQ Q2D@1000 [facility] Last Admin: 01/04/19 13:19 Dose: 12 mg Metoprolol Tartrate (Lopressor -) 25 mg PO BID [facility] Last Admin: 01/04/19 10:46 Dose: 25 mg Oxycodone HCl (Roxicodone -) 10 mg PO Q6H PRN PRN Reason: PAIN LEVEL 6-10 Last Admin: 01/04/19 12:29 Dose: 10 mg Pantoprazole Sodium (Protonix Packets For Oral Suspension -) 40 mg PO DAILY [facility] Last Admin: 01/04/19 10:46 Dose: 40 mg Fluticasone/Salmeterol (Advair 100mcg/50mcg -) 1 puff IH BID [facility] Last Admin: 01/04/19 10:46 Dose: 1 puff Sertraline HCl (Zoloft -) 50 mg PO DAILY [facility] Last Admin: 01/04/19 10:45 Dose: 50 mg Tamsulosin HCl (Flomax -) 0.4 mg PO DAILY@0830 [facility] Last Admin: 01/04/19 11:00 Dose: 0.4 mg Tiotropium [place] (Spiriva Respimat) 2 puff IH DAILY [facility] Last Admin: 01/04/19 10:46 Dose: 2 puff Valacyclovir HCl (Valtrex -) 500 mg PO DAILY [facility] Last Admin: 01/04/19 10:45 Dose: 500 mg - Objective Vital Signs: Vital Signs Temperature 97.9 F 01/04/19 08:00 Pulse Rate 120 H 01/04/19 09:27 Respiratory Rate 20 01/04/19 09:27 Blood Pressure 115/68 01/04/19 09:27 O2 Sat by Pulse Oximetry (%) 100 01/04/19 09:00 Constitutional: Yes: Well Nourished, No Distress Eyes: Yes: Conjunctiva Clear HENT: Yes: Atraumatic, Normocephalic Neck: Yes: Supple, Trachea Midline Cardiovascular: Yes: Regular Rate and Rhythm, JVD Respiratory: Yes: Regular, Rales Extremities: Yes: WNL Edema: No (warm) Labs: CBC, BMP 01/04/19 10:45 01/04/19 10:45 INR, PTT INR 1.19 (0.83-1.09) H 01/01/19 16:40 - ....Imaging EKG: Image Reviewed Problem List - Problems (1) NSTEMI (non-ST elevated myocardial infarction) Code(s): I21.4 - NON-ST ELEVATION (NSTEMI) MYOCARDIAL INFARCTION Assessment/Plan 63 yo man with mult. mylemona, DM, CKD, recently discharged from inpatient- ( was in ICU intubated for pneumonia and respiratory failure) to rehab facility. He signed himself out of rehab this morning and took insulin sc dose and was later found to be obtunded and diaphoretic, shakey, glucometer was not readable. He was then brought to the hospital and received d50 IV, after which his mental status returned to baseline. Noted to have elevated TP level. Echocardiogram showed EF 45-50% without regional variability. Unchanged from echo done 11/2018. ECG with anterior wall T wave inversions. Flash pulmonary edema possibly with IVF. Resulting in sinus tachycardia and demad mediated myocardial injury. Likely has significant CAD. Continue medical management of CAD. Plavix 300mg x1 then 75mg qd. Continue ASA 81mgqd Lasix 40mg IV BID. Increase metoprolol 50mg bid. Continue to monitor on telemetry.
--- NOTE | 2019-01-04 14:08 | PN ---
Teaching Attending Note Name of Resident: Bathseva Pérez ATTENDING PHYSICIAN STATEMENT I saw and evaluated the patient. I reviewed the resident's note and discussed the case with the resident. I agree with the resident's findings and plan as documented. SUBJECTIVE: Pt seen and examined on telemetry. Respiratory distress with hypoxia earlier. CXR showing pulmonary edema, given lasix with good response. Now saturating well on nasal cannula. +Troponins on latest bloodwork. Denies chest pain, states breathing is improving. Presentation similar to last admission. OBJECTIVE: Vital Signs Period Temp Pulse Resp BP Sys/Andre Pulse Ox Last 24 Hr 97.8 F-98.2 F 85-125 18-22 103-139/59-89 97-100 Intake & Output 01/01/19 01/02/19 01/03/19 01/04/19 23:59 23:59 23:59 23:59 Intake Total 1934 789 1013 Output Total 400 2100 650 Balance 1000 -79 -845 -650 Weight 102.058 kg 102.058 kg Gen: mildly tachypneic at rest Heart: RRR Lung: scattered rhonchi Abd: soft, nontender Ext: no edema CBC, BMP 01/04/19 10:45 01/04/19 10:45 Active Medications Al Hydroxide/Mg Hydroxide (Mylanta Oral Suspension -) 30 ml PO Q6H PRN PRN Reason: INDIGESTION Last Admin: 01/04/19 08:08 Dose: 30 ml Artificial Tears (Artificial Tears Ointment -) 1 applic OD HS PRN PRN Reason: DRY EYES Aspirin (Asa -) 81 mg PO DAILY [facility] Last Admin: 01/04/19 10:45 Dose: 81 mg Atorvastatin Calcium (Lipitor -) 80 mg PO HS [facility] Last Admin: 01/03/19 22:18 Dose: 80 mg Buspirone HCl 10 mg/ Buspirone (HCl 5 mg) 15 mg PO BID [facility] Last Admin: 01/04/19 10:47 Dose: 15 mg Calcium Carbonate/Cholecalciferol (Os-[place] 500+D -) 1 tab PO BID [facility] Last Admin: 01/04/19 10:46 Dose: 1 tab Clopidogrel Bisulfate (Plavix -) 300 mg PO ONCE ONE Stop: 01/04/19 13:59 Clopidogrel Bisulfate (Plavix -) 75 mg PO DAILY [facility] Furosemide (Lasix Injection -) 40 mg IVPUSH BID@0600,1400 [facility] Heparin Sodium (Porcine) (Heparin -) 5,000 unit SQ BID [facility] Last Admin: 01/04/19 10:47 Dose: 5,000 unit Piperacillin Sod/Tazobactam (Sod 2.25 gm/ Dextrose) 50 mls @ 100 mls/hr IVPB Q8H-IV [facility]; Protocol Last Admin: 01/04/19 10:35 Dose: 100 mls/hr Insulin Aspart (Novolog Vial Sliding Scale -) 1 vial SQ ACHS [facility]; Protocol Last Admin: 01/04/19 12:30 Dose: 2 unit Insulin Detemir (Levemir Vial) 15 units SQ DAILY@0700 [facility] Last Admin: 01/04/19 06:45 Dose: 15 units Methadone HCl (Dolophine -) 30 mg PO DAILY@0600 [facility] Last Admin: 01/04/19 06:45 Dose: 30 mg Methylnaltrexone [place] (Relistor -) 12 mg SQ Q2D@1000 [facility] Last Admin: 01/04/19 13:19 Dose: 12 mg Metoprolol Tartrate (Lopressor -) 25 mg PO BID [facility] Last Admin: 01/04/19 10:46 Dose: 25 mg Oxycodone HCl (Roxicodone -) 10 mg PO Q6H PRN PRN Reason: PAIN LEVEL 6-10 Last Admin: 01/04/19 12:29 Dose: 10 mg Pantoprazole Sodium (Protonix Packets For Oral Suspension -) 40 mg PO DAILY [facility] Last Admin: 01/04/19 10:46 Dose: 40 mg Fluticasone/Salmeterol (Advair 100mcg/50mcg -) 1 puff IH BID [facility] Last Admin: 01/04/19 10:46 Dose: 1 puff Sertraline HCl (Zoloft -) 50 mg PO DAILY [facility] Last Admin: 01/04/19 10:45 Dose: 50 mg Tamsulosin HCl (Flomax -) 0.4 mg PO DAILY@0830 [facility] Last Admin: 01/04/19 11:00 Dose: 0.4 mg Tiotropium [place] (Spiriva Respimat) 2 puff IH DAILY [facility] Last Admin: 01/04/19 10:46 Dose: 2 puff Valacyclovir HCl (Valtrex -) 500 mg PO DAILY [facility] Last Admin: 01/04/19 10:45 Dose: 500 mg ASSESSMENT AND PLAN: Acute Hypoxic Respiratory Failure Acute Pulmonary Edema Acute NSTEMI Multiple Myeloma HTN DM CKD Hyperkalemia Methadone Maintenance - continue lasix - monitor urine output, creatinine - trend cardiac enzymes - anticoagulation, antiplatelets per cardiology - O2 to keep SpO2 >90% - repeat CXR in AM - pt appears to have clinically improved, does not need ICU monitoring at this time - please call back if any change in clinical condition Harvinder Last MD
[2019-01-04] MEDS ORDERED: CLOPIDOGREL BISULFATE 75 MG TABLET (FP) PO ONE (14:15)
[2019-01-04] MEDS: FUROSEMIDE 40 MG/4 ML INJECTABLE VIAL IVPUSH SCH (14:24)
--- NOTE | 2019-01-04 17:01 | HOSP ---
Physical Examination Vital Signs: Vital Signs Temperature 98.3 F 01/04/19 14:00 Pulse Rate 91 H 01/04/19 14:00 Respiratory Rate 20 01/04/19 14:00 Blood Pressure 96/57 L 01/04/19 14:00 O2 Sat by Pulse Oximetry (%) 100 01/04/19 09:00 Labs: CBC, BMP 01/04/19 10:45 01/04/19 10:45 Hospitalist Encounter Assessment: Called for FSBG 51. Patient is alert and oriented. Advised RN to feed patient and re-check FS. Repeat FS 140.
[2019-01-04 20:28] LABS: ANION GAP 9 MMOL/L (8-16); BLOOD UREA NITROGEN 26 mg/dL (7-18); CALCIUM 7.8 mg/dL (8.5-10.1); CHLORIDE 108 mmol/L (98-107); CO2 23 mmol/L (21-32); CREATININE 1.6 mg/dL (0.55-1.3); GLUCOSE,RANDOM 78 mg/dL (74-106); POTASSIUM 4.8 mmol/L (3.5-5.1); SODIUM 140 mmol/L (136-145)
--- NOTE | 2019-01-04 21:03 | HOSP ---
Physical Examination Vital Signs: Vital Signs Temperature 98.3 F 01/04/19 14:00 Pulse Rate 91 H 01/04/19 14:00 Respiratory Rate 20 01/04/19 14:00 Blood Pressure 96/57 L 01/04/19 14:00 O2 Sat by Pulse Oximetry (%) 100 01/04/19 09:00 Labs: CBC, BMP 01/04/19 10:45 01/04/19 17:10 Hospitalist Encounter Assessment: Briefly, this is a 63-year-old male with MM, DM, CKD, and CAD s/p recent ICU stay for pneumonia requiring mechanical ventilation thought to have flash pulmonary edema possibly secondary to IVF administration resulting in demand ischemia. Called for troponin 40.0. Prior troponin was 8.17 at 10:45am. Patient reports new chest pain. He denies SOB. EKG repeated and shows sinus tachycardia with anterolateral TWI also present on prior EKGs. Will give morphine 4mg IVP for pain. Discussed with Dr. Swan and will start heparin gtt.
[2019-01-04] MEDS: METOPROLOL TARTRATE 25 MG TABLET (FP) PO SCH (21:15)
[2019-01-04] MEDS: ATORVASTATIN CA 80 MG TABLET (FP) PO SCH (21:15)
[2019-01-04] MEDS ORDERED: HEPARIN NA (PORCINE) 5,000 UNITS/ML 1ML VIAL IVPUSH PRN ×2 (21:18)
[2019-01-04] MEDS ORDERED: HEPARIN NA (PORCINE) 5,000 UNITS/ML 1ML VIAL IVPUSH ONE (21:21)
[2019-01-04] MEDS ORDERED: morphine SULFATE 4 MG/ML VIAL IVPUSH ONE (21:24)
[2019-01-04] MEDS: HEPARIN - 25,000 UNIT in SODIUM CHLORIDE 495 ML IV SCH (22:43)
[2019-01-05] MEDS ORDERED: PIPERACILLIN/TAZOBACTAM 2.25 GM VIAL IVPB ONE ×3 (02:12→17:00)
[2019-01-05] MEDS: PIPERACILLIN/TAZOB 2.25 GM 2.25 GM in DEXTROSE 5%-WATER - 50 ML IVPB SCH ×3 (02:35→17:09)
[2019-01-05] MEDS: oxyCODONE HCL 5 MG TABLET PO PRN ×3 (05:29→19:06)
[2019-01-05] MEDS: METHADONE HCL 10 MG TABLET PO SCH (05:29)
[2019-01-05] MEDS: FUROSEMIDE 40 MG/4 ML INJECTABLE VIAL IVPUSH SCH ×2 (05:29→15:01)
[2019-01-05] MEDS: INSULIN (LEVEMIR) 100 UNITS/ML UNITS SQ SCH (06:04)
[2019-01-05] MEDS: INSULIN SLIDING SCALE (NOVOLOG) 1 VIAL SQ SCH ×4 (06:05→21:27)
[2019-01-05 06:23] LABS: ANION GAP 7 MMOL/L (8-16); BLOOD UREA NITROGEN 25 mg/dL (7-18); CALCIUM 7.4 mg/dL (8.5-10.1); CHLORIDE 109 mmol/L (98-107); CO2 24 mmol/L (21-32); CREATININE 1.5 mg/dL (0.55-1.3); GLUCOSE,RANDOM 108 mg/dL (74-106); SODIUM 140 mmol/L (136-145)
[2019-01-05 07:52] LABS: HEMATOCRIT 23.4 % (35.4-49); HEMOGLOBIN 7.6 GM/dL (11.7-16.9); MCH 28.9 pg (25.7-33.7); MCHC 32.5 g/dl (32.0-35.9); MEAN PLT VOLUME 8.1 fl (7.5-11.1); PLATELET COUNT 175 K/MM3 (134-434); RBC 2.63 M/mm3 (4.00-5.60); RDW 19.6 % (11.9-15.9); WHITE BLOOD COUNT 6.1 K/mm3 (4.0-10.0)
[2019-01-05] MEDS ORDERED: PT OWN MED DRAWER 7, Y5N ONE ×4 (09:05→21:14)
[2019-01-05] MEDS ORDERED: DEXTROSE 5%-WATER - 50 ML IVPB ONE ×2 (09:05→17:01)
[2019-01-05] MEDS: CLOPIDOGREL BISULFATE 75 MG TABLET (FP) PO SCH (09:11)
[2019-01-05] MEDS: TAMSULOSIN HCL 0.4 MG CAP PO SCH (09:11)
[2019-01-05] MEDS: ASPIRIN 81 MG CHEWABLE TABLETS PO SCH (09:11)
[2019-01-05] MEDS: SERTRALINE HCL 50 MG TABLET (FP) PO SCH (09:11)
[2019-01-05] MEDS: PANTOPRAZOLE SOD 40 MG SUSPENSION PACKET PO SCH (09:12)
[2019-01-05] MEDS: BUSPIRONE HCL 10 MG, BUSPIRONE HCL 5 MG PO SCH ×2 (09:12→21:23)
[2019-01-05] MEDS: FLUTICASONE/SALMETEROL 100 MCG/50 MCG DISKUS IH SCH ×3 (09:12→21:21)
[2019-01-05] MEDS: TIOTROPIUM BROMIDE 2.5 MCG (SPIRIVA) RESPIMAT INHALER IH SCH (09:13)
[2019-01-05] MEDS: CALCIUM 500MG/VIT-D 200 UNITS COMBO TABLET (FP) PO SCH ×2 (10:34→21:23)
[2019-01-05] MEDS: valACYclovir HCL 500 MG TABLET (FP) PO SCH ×2 (10:39→15:15)
[2019-01-05] MEDS: METOPROLOL TARTRATE 25 MG TABLET (FP) PO SCH ×2 (10:39→21:23)
--- NOTE | 2019-01-05 11:42 | PN ---
Progress Note, Physician Chief Complaint: patient seen and examined overnight events noted troponin still elevated but trending down rom 40 to 18 on heparin drip on iv lasix bid as well - Current Medication List Current Medications: Active Medications Al Hydroxide/Mg Hydroxide (Mylanta Oral Suspension -) 30 ml PO Q6H PRN PRN Reason: INDIGESTION Last Admin: 01/04/19 08:08 Dose: 30 ml Artificial Tears (Artificial Tears Ointment -) 1 applic OD HS PRN PRN Reason: DRY EYES Aspirin (Asa -) 81 mg PO DAILY [facility] Last Admin: 01/05/19 09:11 Dose: 81 mg Atorvastatin Calcium (Lipitor -) 80 mg PO HS [facility] Last Admin: 01/04/19 21:15 Dose: 80 mg Buspirone HCl 10 mg/ Buspirone (HCl 5 mg) 15 mg PO BID [facility] Last Admin: 01/05/19 09:12 Dose: 15 mg Calcium Carbonate/Cholecalciferol (Os-Kyler 500+D -) 1 tab PO BID [facility] Last Admin: 01/05/19 10:34 Dose: 1 tab Clopidogrel Bisulfate (Plavix -) 75 mg PO DAILY [facility] Last Admin: 01/05/19 09:11 Dose: 75 mg Furosemide (Lasix Injection -) 40 mg IVPUSH BID@0600,1400 [facility] Last Admin: 01/05/19 05:29 Dose: 40 mg Heparin Sodium (Porcine) (Heparin -) 1,000 unit IVPUSH PRN PRN PRN Reason: Heparin Heparin Sodium (Porcine) (Heparin -) 5,000 unit IVPUSH PRN PRN PRN Reason: Heparin Piperacillin Sod/Tazobactam (Sod 2.25 gm/ Dextrose) 50 mls @ 100 mls/hr IVPB Q8H-IV [facility]; Protocol Last Admin: 01/05/19 09:13 Dose: 100 mls/hr Heparin Sodium (Porcine) 25, (000 unit/ Sodium Chloride) 500 mls @ 20 mls/hr IV TITR [facility]; Protocol Last Admin: 01/04/19 22:43 Dose: 1,000 unit/hr, 20 mls/hr Insulin Aspart (Novolog Vial Sliding Scale -) 1 vial SQ ACHS [facility]; Protocol Last Admin: 01/05/19 06:05 Dose: Not Given Insulin Detemir (Levemir Vial) 15 units SQ DAILY@0700 [facility] Last Admin: 01/05/19 06:04 Dose: Not Given Methadone HCl (Dolophine -) 30 mg PO DAILY@0600 [facility] Last Admin: 01/05/19 05:29 Dose: 30 mg Methylnaltrexone [place] (Relistor -) 12 mg SQ Q2D@1000 [facility] Last Admin: 01/04/19 13:19 Dose: 12 mg Metoprolol Tartrate (Lopressor -) 50 mg PO BID [facility] Last Admin: 01/05/19 10:39 Dose: Not Given Oxycodone HCl (Roxicodone -) 10 mg PO Q6H PRN PRN Reason: PAIN LEVEL 6-10 Last Admin: 01/05/19 05:29 Dose: 10 mg Pantoprazole Sodium (Protonix Packets For Oral Suspension -) 40 mg PO DAILY [facility] Last Admin: 01/05/19 09:12 Dose: 40 mg Fluticasone/Salmeterol (Advair 100mcg/50mcg -) 1 puff IH BID [facility] Last Admin: 01/05/19 09:24 Dose: Not Given Sertraline HCl (Zoloft -) 50 mg PO DAILY [facility] Last Admin: 01/05/19 09:11 Dose: 50 mg Tamsulosin HCl (Flomax -) 0.4 mg PO DAILY@0830 [facility] Last Admin: 01/05/19 09:11 Dose: 0.4 mg Tiotropium [place] (Spiriva Respimat) 2 puff IH DAILY [facility] Last Admin: 01/05/19 09:13 Dose: 2 puff Valacyclovir HCl (Valtrex -) 500 mg PO DAILY [facility] Last Admin: 01/05/19 10:39 Dose: Not Given - Objective Vital Signs: Vital Signs Temperature 97.2 F L 01/05/19 08:15 Pulse Rate 77 01/05/19 08:15 Respiratory Rate 18 01/05/19 08:15 Blood Pressure 103/67 01/05/19 08:15 O2 Sat by Pulse Oximetry (%) 95 01/05/19 08:16 Constitutional: Yes: Calm Cardiovascular: Yes: Regular Rate and Rhythm, S1, S2 Respiratory: Yes: Diminished (on right side and left lower base), On Nasal O2 Gastrointestinal: Yes: Normal Bowel Sounds, Soft Edema: No Neurological: Yes: Alert, Oriented Labs: CBC, BMP 01/05/19 07:03 01/05/19 05:30 INR, PTT INR 1.19 (0.83-1.09) H 01/01/19 16:40 Problem List - Problems (1) Hypoglycemia Code(s): E16.2 - HYPOGLYCEMIA, UNSPECIFIED (2) Elevated troponin Assessment/Plan: telemetry cardiology trend troponin asprin lipitor low BP noted Code(s): R74.8 - ABNORMAL LEVELS OF OTHER SERUM ENZYMES (3) Narcotic dependence Assessment/Plan: prior IVDA taper methadone dose today will give 30mg and then from tmw decrease to 20mg daily his bottle of methadone is at [facility] [place] Code(s): F11.20 - OPIOID DEPENDENCE, UNCOMPLICATED (4) Constipation Assessment/Plan: relistor Code(s): K59.00 - CONSTIPATION, UNSPECIFIED (5) CKD (chronic kidney disease) Assessment/Plan: renal folow up Code(s): N18.9 - CHRONIC KIDNEY DISEASE, UNSPECIFIED (6) Anemia Assessment/Plan: Multiple myloma heme on board check stool occult blodd if h/h less 7 will transfuse Code(s): D64.9 - ANEMIA, UNSPECIFIED (7) Respiratory distress Assessment/Plan: iv lasix bid cxr improving nasal oxygen Code(s): R06.03 - ACUTE RESPIRATORY DISTRESS
[2019-01-05] MEDS ORDERED: METHADONE HCL 10 MG TABLET PO SCH (11:44)
--- NOTE | 2019-01-05 11:49 | EKG ---
Test Reason : Blood Pressure : / mmHG Vent. Rate : 136 BPM Atrial Rate : 136 BPM P-R Int : 158 ms QRS Dur : 078 ms QT Int : 282 ms P-R-T Axes : 076 054 208 degrees QTc Int : 424 ms POOR DATA QUALITY, INTERPRETATION MAY BE ADVERSELY AFFECTED SINUS TACHYCARDIA ABNORMAL ECG WHEN COMPARED WITH ECG OF 03-JAN-2019 10:38, ST NO LONGER DEPRESSED IN ANTERIOR LEADS T WAVE INVERSION NO LONGER EVIDENT IN ANTERIOR LEADS Confirmed by OTIS PEREZ MD ([id number]) on 01/05/2019 11:49:04 AM Referred By: Confirmed By:OTIS PEREZ MD
[2019-01-05] MEDS ORDERED: INSULIN SLIDING SCALE (NOVOLOG) 1 VIAL SQ ONE ×2 (11:59→19:39)
--- NOTE | 2019-01-05 12:10 | PN ---
Progress Note (short form) - Note Progress Note: Overnight events noted. Chest pain and (+) troponin and started on IV Heparin drip. Feels better today. Troponin down trending. Intake & Output 01/02/19 01/03/19 01/04/19 01/05/19 23:59 23:59 23:59 23:59 Intake Total 321 1255 850 140 Output Total 400 2100 2850 700 Balance -79 -845 -2000 -560 Weight 225 lb Last Vital Signs Temp Pulse Resp BP Pulse Ox 97.2 F L 77 18 103/67 95 01/05/19 08:15 01/05/19 08:15 01/05/19 08:15 01/05/19 08:15 01/05/19 08:16 Active Medications Al Hydroxide/Mg Hydroxide (Mylanta Oral Suspension -) 30 ml PO Q6H PRN PRN Reason: INDIGESTION Last Admin: 01/04/19 08:08 Dose: 30 ml Artificial Tears (Artificial Tears Ointment -) 1 applic OD HS PRN PRN Reason: DRY EYES Aspirin (Asa -) 81 mg PO DAILY [facility] Last Admin: 01/05/19 09:11 Dose: 81 mg Atorvastatin Calcium (Lipitor -) 80 mg PO HS [facility] Last Admin: 01/04/19 21:15 Dose: 80 mg Buspirone HCl 10 mg/ Buspirone (HCl 5 mg) 15 mg PO BID [facility] Last Admin: 01/05/19 09:12 Dose: 15 mg Calcium Carbonate/Cholecalciferol (Os-Kyler 500+D -) 1 tab PO BID [facility] Last Admin: 01/05/19 10:34 Dose: 1 tab Clopidogrel Bisulfate (Plavix -) 75 mg PO DAILY [facility] Last Admin: 01/05/19 09:11 Dose: 75 mg Furosemide (Lasix Injection -) 40 mg IVPUSH BID@0600,1400 [facility] Last Admin: 01/05/19 05:29 Dose: 40 mg Heparin Sodium (Porcine) (Heparin -) 1,000 unit IVPUSH PRN PRN PRN Reason: Heparin Heparin Sodium (Porcine) (Heparin -) 5,000 unit IVPUSH PRN PRN PRN Reason: Heparin Piperacillin Sod/Tazobactam (Sod 2.25 gm/ Dextrose) 50 mls @ 100 mls/hr IVPB Q8H-IV [facility]; Protocol Last Admin: 01/05/19 09:13 Dose: 100 mls/hr Heparin Sodium (Porcine) 25, (000 unit/ Sodium Chloride) 500 mls @ 20 mls/hr IV TITR [facility]; Protocol Last Admin: 01/04/19 22:43 Dose: 1,000 unit/hr, 20 mls/hr Insulin Aspart (Novolog Vial Sliding Scale -) 1 vial SQ ACHS [facility]; Protocol Last Admin: 01/05/19 11:47 Dose: Not Given Insulin Detemir (Levemir Vial) 10 units SQ DAILY@0700 [facility] Methadone HCl (Dolophine -) 20 mg PO DAILY@0600 [facility] Methylnaltrexone [place] (Relistor -) 12 mg SQ Q2D@1000 [facility] Last Admin: 01/04/19 13:19 Dose: 12 mg Metoprolol Tartrate (Lopressor -) 50 mg PO BID [facility] Last Admin: 01/05/19 10:39 Dose: Not Given Oxycodone HCl (Roxicodone -) 10 mg PO Q6H PRN PRN Reason: PAIN LEVEL 6-10 Last Admin: 01/05/19 11:39 Dose: 10 mg Pantoprazole Sodium (Protonix Packets For Oral Suspension -) 40 mg PO DAILY [facility] Last Admin: 01/05/19 09:12 Dose: 40 mg Fluticasone/Salmeterol (Advair 100mcg/50mcg -) 1 puff IH BID [facility] Last Admin: 01/05/19 09:24 Dose: Not Given Sertraline HCl (Zoloft -) 50 mg PO DAILY [facility] Last Admin: 01/05/19 09:11 Dose: 50 mg Tamsulosin HCl (Flomax -) 0.4 mg PO DAILY@0830 [facility] Last Admin: 01/05/19 09:11 Dose: 0.4 mg Tiotropium [place] (Spiriva Respimat) 2 puff IH DAILY [facility] Last Admin: 01/05/19 09:13 Dose: 2 puff Valacyclovir HCl (Valtrex -) 500 mg PO DAILY [facility] Last Admin: 01/05/19 10:39 Dose: Not Given Gen: mildly tachypneic at rest Heart: RRR Lung: scattered rhonchi Abd: soft, nontender Ext: no edema Laboratory Results - last 24 hr 01/04/19 01/04/19 01/04/19 10:45 10:45 12:00 WBC Corrected WBC (auto) RBC Hgb Hct MCV MCH MCHC RDW Plt Count MPV Absolute Neuts (auto) Neutrophils % Neutrophils % (Manual) 89.9 H Band Neutrophils % 0.0 Lymphocytes % Lymphocytes % (Manual) 7.1 L D Monocytes % Monocytes % (Manual) 2 L Eosinophils % Eosinophils % (Manual) 0.0 D Basophils % Basophils % (Manual) 0.0 Myelocytes % (Man) 1 Promyelocytes % (Man) 0 Blast Cells % (Manual) 0 Nucleated RBC % Metamyelocytes 0 Hypochromia 0 Platelet Estimate Normal Platelet Comment Polychromasia 1+ Poikilocytosis 1+ Anisocytosis 1+ Microcytosis 1+ Macrocytosis 0 Tear Drop Cells 1+ Ovalocytes 1+ PTT (Actin FS) Sodium Potassium Chloride Carbon Dioxide Anion Gap BUN Creatinine Creat Clearance w eGFR POC Glucometer Random Glucose Lactic Acid 3.2 H* Calcium Creatine Kinase Index 5.4 H CK-MB (CK-2) 15.3 H Troponin I 8.17 H* 01/04/19 01/04/19 01/04/19 16:26 17:10 17:10 WBC Corrected WBC (auto) RBC Hgb Hct MCV MCH MCHC RDW Plt Count MPV Absolute Neuts (auto) Neutrophils % Neutrophils % (Manual) Band Neutrophils % Lymphocytes % Lymphocytes % (Manual) Monocytes % Monocytes % (Manual) Eosinophils % Eosinophils % (Manual) Basophils % Basophils % (Manual) Myelocytes % (Man) Promyelocytes % (Man) Blast Cells % (Manual) Nucleated RBC % Metamyelocytes Hypochromia Platelet Estimate Platelet Comment Polychromasia Poikilocytosis Anisocytosis Microcytosis Macrocytosis Tear Drop Cells Ovalocytes PTT (Actin FS) Sodium 140 Potassium 4.8 Chloride 108 H Carbon Dioxide 23 Anion Gap 9 BUN 26 H Creatinine 1.6 H Creat Clearance w eGFR 43.60 POC Glucometer 51 Random Glucose 78 Lactic Acid 2.1 H Calcium 7.8 L Creatine Kinase Index CK-MB (CK-2) Troponin I 40.40 H* 01/04/19 01/04/19 01/04/19 18:13 21:11 21:45 WBC Corrected WBC (auto) RBC Hgb Hct MCV MCH MCHC RDW Plt Count MPV Absolute Neuts (auto) Neutrophils % Neutrophils % (Manual) Band Neutrophils % Lymphocytes % Lymphocytes % (Manual) Monocytes % Monocytes % (Manual) Eosinophils % Eosinophils % (Manual) Basophils % Basophils % (Manual) Myelocytes % (Man) Promyelocytes % (Man) Blast Cells % (Manual) Nucleated RBC % Metamyelocytes Hypochromia Platelet Estimate Platelet Comment Polychromasia Poikilocytosis Anisocytosis Microcytosis Macrocytosis Tear Drop Cells Ovalocytes PTT (Actin FS) 31.6 Sodium Potassium Chloride Carbon Dioxide Anion Gap BUN Creatinine Creat Clearance w eGFR POC Glucometer 84 140 Random Glucose Lactic Acid Calcium Creatine Kinase Index CK-MB (CK-2) Troponin I 01/05/19 01/05/19 01/05/19 05:21 05:30 05:30 WBC Cancelled Corrected WBC (auto) Cancelled RBC Cancelled Hgb Cancelled Hct Cancelled MCV Cancelled MCH Cancelled MCHC Cancelled RDW Cancelled Plt Count Cancelled MPV Cancelled Absolute Neuts (auto) Cancelled Neutrophils % Cancelled Neutrophils % (Manual) Band Neutrophils % Lymphocytes % Cancelled Lymphocytes % (Manual) Monocytes % Cancelled Monocytes % (Manual) Eosinophils % Cancelled Eosinophils % (Manual) Basophils % Cancelled Basophils % (Manual) Myelocytes % (Man) Promyelocytes % (Man) Blast Cells % (Manual) Nucleated RBC % Cancelled Metamyelocytes Hypochromia Platelet Estimate Cancelled Platelet Comment Cancelled Polychromasia Poikilocytosis Anisocytosis Microcytosis Macrocytosis Tear Drop Cells Ovalocytes PTT (Actin FS) Sodium 140 Potassium 5.0 Chloride 109 H Carbon Dioxide 24 Anion Gap 7 L BUN 25 H Creatinine 1.5 H Creat Clearance w eGFR 46.97 POC Glucometer 113 Random Glucose 108 H Lactic Acid Calcium 7.4 L Creatine Kinase Index CK-MB (CK-2) Troponin I 18.40 H* 01/05/19 01/05/19 01/05/19 05:30 07:03 11:42 WBC 6.1 Corrected WBC (auto) RBC 2.63 L Hgb 7.6 L Hct 23.4 L MCV 89.0 MCH 28.9 MCHC 32.5 RDW 19.6 H Plt Count 175 MPV 8.1 Absolute Neuts (auto) Neutrophils % Neutrophils % (Manual) Band Neutrophils % Lymphocytes % Lymphocytes % (Manual) Monocytes % Monocytes % (Manual) Eosinophils % Eosinophils % (Manual) Basophils % Basophils % (Manual) Myelocytes % (Man) Promyelocytes % (Man) Blast Cells % (Manual) Nucleated RBC % Metamyelocytes Hypochromia Platelet Estimate Platelet Comment Polychromasia Poikilocytosis Anisocytosis Microcytosis Macrocytosis Tear Drop Cells Ovalocytes PTT (Actin FS) 67.3 H Sodium Potassium Chloride Carbon Dioxide Anion Gap BUN Creatinine Creat Clearance w eGFR POC Glucometer 143 Random Glucose Lactic Acid Calcium Creatine Kinase Index CK-MB (CK-2) Troponin I ASSESSMENT AND PLAN: Demand Ischemia Acute Hypoxic Respiratory Failure Acute Pulmonary Edema Acute NSTEMI Multiple Myeloma HTN DM CKD Hyperkalemia Methadone Maintenance - IV Heparin - Lasix - monitor urine output, creatinine - anticoagulation, antiplatelets per cardiology - O2 to keep SpO2 >90% - Cardiac Telemetry monitoring Dr Culver
--- NOTE | 2019-01-05 13:15 | PN ---
Progress Note, Physician History of Present Illness: AWAKE, ALERT NO FOCAL COMPLAINT AFEBRILE WBC WNL URINE C/S PSEUDOMONAS - Current Medication List Current Medications: Active Medications Al Hydroxide/Mg Hydroxide (Mylanta Oral Suspension -) 30 ml PO Q6H PRN PRN Reason: INDIGESTION Last Admin: 01/04/19 08:08 Dose: 30 ml Artificial Tears (Artificial Tears Ointment -) 1 applic OD HS PRN PRN Reason: DRY EYES Aspirin (Asa -) 81 mg PO DAILY [facility] Last Admin: 01/05/19 09:11 Dose: 81 mg Atorvastatin Calcium (Lipitor -) 80 mg PO HS [facility] Last Admin: 01/04/19 21:15 Dose: 80 mg Buspirone HCl 10 mg/ Buspirone (HCl 5 mg) 15 mg PO BID [facility] Last Admin: 01/05/19 09:12 Dose: 15 mg Calcium Carbonate/Cholecalciferol (Os-Kyler 500+D -) 1 tab PO BID [facility] Last Admin: 01/05/19 10:34 Dose: 1 tab Clopidogrel Bisulfate (Plavix -) 75 mg PO DAILY [facility] Last Admin: 01/05/19 09:11 Dose: 75 mg Furosemide (Lasix Injection -) 40 mg IVPUSH BID@0600,1400 [facility] Last Admin: 01/05/19 05:29 Dose: 40 mg Heparin Sodium (Porcine) (Heparin -) 1,000 unit IVPUSH PRN PRN PRN Reason: Heparin Heparin Sodium (Porcine) (Heparin -) 5,000 unit IVPUSH PRN PRN PRN Reason: Heparin Piperacillin Sod/Tazobactam (Sod 2.25 gm/ Dextrose) 50 mls @ 100 mls/hr IVPB Q8H-IV [facility]; Protocol Last Admin: 01/05/19 09:13 Dose: 100 mls/hr Heparin Sodium (Porcine) 25, (000 unit/ Sodium Chloride) 500 mls @ 20 mls/hr IV TITR [facility]; Protocol Last Admin: 01/04/19 22:43 Dose: 1,000 unit/hr, 20 mls/hr Insulin Aspart (Novolog Vial Sliding Scale -) 1 vial SQ ACHS [facility]; Protocol Last Admin: 01/05/19 11:47 Dose: Not Given Insulin Detemir (Levemir Vial) 10 units SQ DAILY@0700 [facility] Methadone HCl (Dolophine -) 20 mg PO DAILY@0600 [facility] Methylnaltrexone [place] (Relistor -) 12 mg SQ Q2D@1000 [facility] Last Admin: 01/04/19 13:19 Dose: 12 mg Metoprolol Tartrate (Lopressor -) 25 mg PO BID [facility] Oxycodone HCl (Roxicodone -) 10 mg PO Q6H PRN PRN Reason: PAIN LEVEL 6-10 Last Admin: 01/05/19 11:39 Dose: 10 mg Pantoprazole Sodium (Protonix Packets For Oral Suspension -) 40 mg PO DAILY [facility] Last Admin: 01/05/19 09:12 Dose: 40 mg Fluticasone/Salmeterol (Advair 100mcg/50mcg -) 1 puff IH BID [facility] Last Admin: 01/05/19 09:24 Dose: Not Given Sertraline HCl (Zoloft -) 50 mg PO DAILY [facility] Last Admin: 01/05/19 09:11 Dose: 50 mg Tamsulosin HCl (Flomax -) 0.4 mg PO DAILY@0830 [facility] Last Admin: 01/05/19 09:11 Dose: 0.4 mg Tiotropium [place] (Spiriva Respimat) 2 puff IH DAILY [facility] Last Admin: 01/05/19 09:13 Dose: 2 puff Valacyclovir HCl (Valtrex -) 500 mg PO DAILY [facility] Last Admin: 01/05/19 10:39 Dose: Not Given - Objective Vital Signs: Vital Signs Temperature 97.2 F L 01/05/19 08:15 Pulse Rate 77 01/05/19 08:15 Respiratory Rate 18 01/05/19 08:15 Blood Pressure 103/67 01/05/19 08:15 O2 Sat by Pulse Oximetry (%) 95 01/05/19 08:16 Constitutional: Yes: No Distress Eyes: Yes: Conjunctiva Clear Cardiovascular: Yes: Regular Rate and Rhythm, S1, S2 Respiratory: Yes: CTA Bilaterally Gastrointestinal: Yes: Normal Bowel Sounds, Soft. No: Tenderness Edema: No Labs: CBC, BMP 01/05/19 07:03 01/05/19 05:30 INR, PTT INR 1.19 (0.83-1.09) H 01/01/19 16:40 Assessment/Plan UTI PSEUDOMONAS SYMPTOMATIC HYPOGLYCEMIA MYELOMA CONTINUE ZOSYN
--- NOTE | 2019-01-05 14:09 | PN ---
Progress Note, Physician History of Present Illness: Pt seen and examined at bedside. He feels that his breathing is much better today. He denies chest pain. He is on heparin for elevated troponin. - Current Medication List Current Medications: Active Medications Al Hydroxide/Mg Hydroxide (Mylanta Oral Suspension -) 30 ml PO Q6H PRN PRN Reason: INDIGESTION Last Admin: 01/04/19 08:08 Dose: 30 ml Artificial Tears (Artificial Tears Ointment -) 1 applic OD HS PRN PRN Reason: DRY EYES Aspirin (Asa -) 81 mg PO DAILY [facility] Last Admin: 01/05/19 09:11 Dose: 81 mg Atorvastatin Calcium (Lipitor -) 80 mg PO HS [facility] Last Admin: 01/04/19 21:15 Dose: 80 mg Buspirone HCl 10 mg/ Buspirone (HCl 5 mg) 15 mg PO BID [facility] Last Admin: 01/05/19 09:12 Dose: 15 mg Calcium Carbonate/Cholecalciferol (Os-Kyler 500+D -) 1 tab PO BID [facility] Last Admin: 01/05/19 10:34 Dose: 1 tab Clopidogrel Bisulfate (Plavix -) 75 mg PO DAILY [facility] Last Admin: 01/05/19 09:11 Dose: 75 mg Furosemide (Lasix Injection -) 40 mg IVPUSH BID@0600,1400 [facility] Last Admin: 01/05/19 05:29 Dose: 40 mg Heparin Sodium (Porcine) (Heparin -) 1,000 unit IVPUSH PRN PRN PRN Reason: Heparin Heparin Sodium (Porcine) (Heparin -) 5,000 unit IVPUSH PRN PRN PRN Reason: Heparin Piperacillin Sod/Tazobactam (Sod 2.25 gm/ Dextrose) 50 mls @ 100 mls/hr IVPB Q8H-IV [facility]; Protocol Last Admin: 01/05/19 09:13 Dose: 100 mls/hr Heparin Sodium (Porcine) 25, (000 unit/ Sodium Chloride) 500 mls @ 20 mls/hr IV TITR [facility]; Protocol Last Admin: 01/04/19 22:43 Dose: 1,000 unit/hr, 20 mls/hr Insulin Aspart (Novolog Vial Sliding Scale -) 1 vial SQ ACHS [facility]; Protocol Last Admin: 01/05/19 11:47 Dose: Not Given Insulin Detemir (Levemir Vial) 10 units SQ DAILY@0700 [facility] Methadone HCl (Dolophine -) 20 mg PO DAILY@0600 [facility] Methylnaltrexone [place] (Relistor -) 12 mg SQ Q2D@1000 [facility] Last Admin: 01/04/19 13:19 Dose: 12 mg Metoprolol Tartrate (Lopressor -) 25 mg PO BID [facility] Oxycodone HCl (Roxicodone -) 10 mg PO Q6H PRN PRN Reason: PAIN LEVEL 6-10 Last Admin: 01/05/19 11:39 Dose: 10 mg Pantoprazole Sodium (Protonix Packets For Oral Suspension -) 40 mg PO DAILY [facility] Last Admin: 01/05/19 09:12 Dose: 40 mg Fluticasone/Salmeterol (Advair 100mcg/50mcg -) 1 puff IH BID [facility] Last Admin: 01/05/19 09:24 Dose: Not Given Sertraline HCl (Zoloft -) 50 mg PO DAILY [facility] Last Admin: 01/05/19 09:11 Dose: 50 mg Tamsulosin HCl (Flomax -) 0.4 mg PO DAILY@0830 [facility] Last Admin: 01/05/19 09:11 Dose: 0.4 mg Tiotropium [place] (Spiriva Respimat) 2 puff IH DAILY [facility] Last Admin: 01/05/19 09:13 Dose: 2 puff Valacyclovir HCl (Valtrex -) 500 mg PO DAILY [facility] Last Admin: 01/05/19 10:39 Dose: Not Given - Objective Vital Signs: Vital Signs Temperature 97.2 F L 01/05/19 08:15 Pulse Rate 77 01/05/19 08:15 Respiratory Rate 18 01/05/19 08:15 Blood Pressure 103/67 01/05/19 08:15 O2 Sat by Pulse Oximetry (%) 95 01/05/19 08:16 Constitutional: Yes: Calm Eyes: Yes: Conjunctiva Clear HENT: Yes: Atraumatic Cardiovascular: Yes: S1, S2 Respiratory: Yes: On Nasal O2, Rhonchi Gastrointestinal: Yes: Soft Genitourinary: Yes: WNL Musculoskeletal: Yes: WNL Edema: Yes Edema: LLE: Trace, RLE: Trace Neurological: Yes: Oriented Psychiatric: Yes: Oriented Labs: CBC, BMP 01/05/19 07:03 01/05/19 05:30 INR, PTT INR 1.19 (0.83-1.09) H 01/01/19 16:40 Assessment/Plan Current Medications Generic Name Dose Route Start Last Admin Trade Name Freq PRN Reason Stop Dose Admin Al Hydroxide/Mg Hydroxide 30 ml 01/03/19 11:35 01/04/19 08:08 Mylanta Oral Suspension - PO 30 ml Q6H PRN Administration INDIGESTION Artificial Tears 1 applic 01/01/19 19:22 Artificial Tears Ointment - OD HS PRN DRY EYES Aspirin 81 mg 01/02/19 10:00 01/05/19 09:11 Asa - PO 81 mg DAILY [facility] Administration Atorvastatin Calcium 80 mg 01/01/19 22:00 01/04/19 21:15 Lipitor - PO 80 mg HS [facility] Administration Buspirone HCl 10 mg/ Buspirone 15 mg 01/04/19 10:00 01/05/19 09:12 HCl 5 mg PO 15 mg BID [facility] Administration Calcium Carbonate/Cholecalciferol 1 tab 01/02/19 10:00 01/05/19 10:34 Os-Kyler 500+D - PO 1 tab BID [facility] Administration Clopidogrel Bisulfate 75 mg 01/05/19 10:00 01/05/19 09:11 Plavix - PO 75 mg DAILY [facility] Administration Furosemide 40 mg 01/04/19 14:00 01/05/19 05:29 Lasix Injection - IVPUSH 40 mg BID@0600,1400 [facility] Administration Heparin Sodium (Porcine) 1,000 unit 01/04/19 21:18 Heparin - IVPUSH PRN PRN Heparin Heparin Sodium (Porcine) 5,000 unit 01/04/19 21:18 Heparin - IVPUSH PRN PRN Heparin Piperacillin Sod/Tazobactam 50 mls @ 100 mls/hr 01/03/19 18:00 01/05/19 09:13 Sod 2.25 gm/ Dextrose IVPB 100 mls/hr Q8H-IV [facility] Administration Protocol Heparin Sodium (Porcine) 25, 500 mls @ 20 mls/hr 01/04/19 21:30 01/04/19 22: 43 000 unit/ Sodium Chloride IV 1,000 unit/hr TITR [facility] 20 mls/hr Administration Protocol 1,000 UNIT/HR Insulin Aspart 1 vial 01/01/19 22:00 01/05/19 11:47 Novolog Vial Sliding Scale - SQ Not Given ACHS [facility] Protocol Insulin Detemir 10 units 01/05/19 11:40 Levemir Vial SQ DAILY@0700 [facility] Methadone HCl 20 mg 01/05/19 11:44 Dolophine - PO DAILY@0600 [facility] Methylnaltrexone [place] 12 mg 01/04/19 10:00 01/04/19 13:19 Relistor - SQ 12 mg Q2D@1000 [facility] Administration Metoprolol Tartrate 25 mg 01/05/19 13:07 Lopressor - PO BID [facility] Oxycodone HCl 10 mg 01/04/19 08:16 01/05/19 11:39 Roxicodone - PO 10 mg Q6H PRN Administration PAIN LEVEL 6-10 Pantoprazole Sodium 40 mg 01/02/19 10:00 01/05/19 09:12 Protonix Packets For Oral Suspension - PO 40 mg DAILY [facility] Administration Fluticasone/Salmeterol 1 puff 01/01/19 22:00 01/05/19 09:24 Advair 100mcg/50mcg - IH Not Given BID [facility] Sertraline HCl 50 mg 01/02/19 10:00 01/05/19 09:11 Zoloft - PO 50 mg DAILY [facility] Administration Tamsulosin HCl 0.4 mg 01/02/19 08:30 01/05/19 09:11 Flomax - PO 0.4 mg DAILY@0830 [facility] Administration Tiotropium [place] 2 puff 01/02/19 10:00 01/05/19 09:13 Spiriva Respimat IH 2 puff DAILY [facility] Administration Valacyclovir HCl 500 mg 01/02/19 10:00 01/05/19 10:39 Valtrex - PO Not Given DAILY [facility] Impression 1. hyponatremia 2. CKD 3. hypoglycemia 4. htn 5. DM 6. 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 multiple myeloma 9. anemia 10. proteinuria 11. hyperkalemia 12. NSTEMI Plan - cont with lasix - potassium improving - cardio follow up - pt clinically improving - cont oxygen - monitor renal function on HD - pt did have a large bowel movement today - cxr report reviewed, there is some improvement - avoid nsaids - hold off [place] or arb for now
--- NOTE | 2019-01-05 15:45 | PN ---
Progress Note, Physician Chief Complaint: Cardiology FU No further chest pain since yesterday. TP peaked 40. No dyspnea. History of Present Illness: 63 yo man recently diagnosed with mult. mylemona, recently discharged from inpatient- (was in ICU intubated for pneumonia and respiratory failure) to rehab facility. He signed himself out of rehab this morning and took insulin sc dose and was later found to be obtunded and diaphoretic, shakey, glucometer was not readable. He was then brought to the hospital and received d50 IV, after which his mental status returned to baseline. Noted to have elevated TP level. Echocardiogram showed EF 45-50% without regional variability. Unchanged from echo done 11/2018. - Current Medication List Current Medications: Active Medications Al Hydroxide/Mg Hydroxide (Mylanta Oral Suspension -) 30 ml PO Q6H PRN PRN Reason: INDIGESTION Last Admin: 01/04/19 08:08 Dose: 30 ml Artificial Tears (Artificial Tears Ointment -) 1 applic OD HS PRN PRN Reason: DRY EYES Aspirin (Asa -) 81 mg PO DAILY [facility] Last Admin: 01/05/19 09:11 Dose: 81 mg Atorvastatin Calcium (Lipitor -) 80 mg PO HS [facility] Last Admin: 01/04/19 21:15 Dose: 80 mg Buspirone HCl 10 mg/ Buspirone (HCl 5 mg) 15 mg PO BID [facility] Last Admin: 01/05/19 09:12 Dose: 15 mg Calcium Carbonate/Cholecalciferol (Os-Kyler 500+D -) 1 tab PO BID [facility] Last Admin: 01/05/19 10:34 Dose: 1 tab Clopidogrel Bisulfate (Plavix -) 75 mg PO DAILY [facility] Last Admin: 01/05/19 09:11 Dose: 75 mg Furosemide (Lasix Injection -) 40 mg IVPUSH BID@0600,1400 [facility] Last Admin: 01/05/19 15:01 Dose: 40 mg Heparin Sodium (Porcine) (Heparin -) 1,000 unit IVPUSH PRN PRN PRN Reason: Heparin Heparin Sodium (Porcine) (Heparin -) 5,000 unit IVPUSH PRN PRN PRN Reason: Heparin Piperacillin Sod/Tazobactam (Sod 2.25 gm/ Dextrose) 50 mls @ 100 mls/hr IVPB Q8H-IV [facility]; Protocol Last Admin: 01/05/19 09:13 Dose: 100 mls/hr Heparin Sodium (Porcine) 25, (000 unit/ Sodium Chloride) 500 mls @ 20 mls/hr IV TITR [facility]; Protocol Last Admin: 01/04/19 22:43 Dose: 1,000 unit/hr, 20 mls/hr Insulin Aspart (Novolog Vial Sliding Scale -) 1 vial SQ ACHS [facility]; Protocol Last Admin: 01/05/19 11:47 Dose: Not Given Insulin Detemir (Levemir Vial) 10 units SQ DAILY@0700 [facility] Methadone HCl (Dolophine -) 20 mg PO DAILY@0600 [facility] Methylnaltrexone [place] (Relistor -) 12 mg SQ Q2D@1000 [facility] Last Admin: 01/04/19 13:19 Dose: 12 mg Metoprolol Tartrate (Lopressor -) 25 mg PO BID [facility] Oxycodone HCl (Roxicodone -) 10 mg PO Q6H PRN PRN Reason: PAIN LEVEL 6-10 Last Admin: 01/05/19 11:39 Dose: 10 mg Pantoprazole Sodium (Protonix Packets For Oral Suspension -) 40 mg PO DAILY [facility] Last Admin: 01/05/19 09:12 Dose: 40 mg Fluticasone/Salmeterol (Advair 100mcg/50mcg -) 1 puff IH BID [facility] Last Admin: 01/05/19 09:24 Dose: Not Given Sertraline HCl (Zoloft -) 50 mg PO DAILY [facility] Last Admin: 01/05/19 09:11 Dose: 50 mg Tamsulosin HCl (Flomax -) 0.4 mg PO DAILY@0830 [facility] Last Admin: 01/05/19 09:11 Dose: 0.4 mg Tiotropium [place] (Spiriva Respimat) 2 puff IH DAILY [facility] Last Admin: 01/05/19 09:13 Dose: 2 puff Valacyclovir HCl (Valtrex -) 500 mg PO DAILY [facility] Last Admin: 01/05/19 15:15 Dose: 500 mg - Objective Vital Signs: Vital Signs Temperature 97.8 F 01/05/19 15:17 Pulse Rate 72 01/05/19 15:17 Respiratory Rate 18 01/05/19 15:17 Blood Pressure 104/63 01/05/19 15:17 O2 Sat by Pulse Oximetry (%) 95 01/05/19 08:16 Constitutional: Yes: No Distress, Cachectic Eyes: Yes: Conjunctiva Clear HENT: Yes: Atraumatic, Normocephalic Neck: Yes: Supple, Trachea Midline Cardiovascular: Yes: Regular Rate and Rhythm, JVD Respiratory: Yes: Rales Edema: No Labs: CBC, BMP 01/05/19 07:03 01/05/19 05:30 INR, PTT INR 1.19 (0.83-1.09) H 01/01/19 16:40 - ....Imaging Chest X-ray: Report Reviewed Problem List - Problems (1) NSTEMI (non-ST elevated myocardial infarction) Code(s): I21.4 - NON-ST ELEVATION (NSTEMI) MYOCARDIAL INFARCTION Assessment/Plan 63 yo man with mult. mylemona, DM, CKD, recently discharged from inpatient- ( was in ICU intubated for pneumonia and respiratory failure) to rehab facility. He signed himself out of rehab this morning and took insulin sc dose and was later found to be obtunded and diaphoretic, shaky, glucometer was not readable. He was then brought to the hospital and received d50 IV, after which his mental status returned to baseline. Noted to have elevated TP level. Echocardiogram showed EF 45-50% without regional variability. Unchanged from echo done 11/2018. ECG with anterior wall T wave inversions. Flash pulmonary edema with NSTEMI. Managed medically. CP free and with improving heart failure symptoms. Significant net negative UO. Still volume overloaded. 1. CHF Volume up-improving. Continue IV lasix Monitor lytes. Not on ACEI/ARB due to BP. 2. CA. Managed medically. CP free Continue IV heparin for 24 hours Continue with ASA, plavix and low dose bb Telemetry with NSR and no arrhythmia.
--- NOTE | 2019-01-05 20:19 | CON.GI ---
Consult Consult Specialty:: Gastroenterology Referred by:: Cheri Perez MD Reason for Consultation:: Constipation - History of Present Illness Chief Complaint: hypoglycemic syncope History of Present Illness: 63M signed out of his rehab facility and apparently misread his fingerstick before injecting himself with insulin which precipitated his lapsing into LOC. He was BIBA and appears to have also suffered a NSTEMI. I am asked to evaluate Napoleon for constipation. He is well known to me from a recent long hospitalization during which I saw him for narcotic and diabetic neuropathy related constipation and gastroparesis and later for a stress gastritis bleed while intubated following flash pulmonary edema. He tells me that Miralax was stopped when he left for the rehab facility. I had advocated weaning him off the methadone gradually. He is now on 20mg daily. He tells me that he did have a BM today. He denies abdominal pain or rectal bleeding. He had a rapid response for tachycardia yesterday and CXR revealed congestive changes. His 01/02 echo revealed an EF of 45-50%. He was cured of HCV by my partner, Dr Jesus Bedolla. 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 He has never had an EGD or a colonoscopy and denies any FH of colon cancer. - History Source History Provided By: Patient, Medical Record Limitations to Obtaining History: No Limitations - Past Medical History RECREATION ACTIVITIES COORDINATOR: Yes: Peripheral Neuropathy (stocking glove distribution related to DM) Cardio/Vascular: Yes: CHF (mild with EF 45-50 and propensity for flash pulmonary edema), HTN, Hyperlipdemia, PR (has acute NSTEMI with anterior lead inverted waves) Pulmonary: Yes: Asthma, Other (left chest tube for rib fracture related pneumothorax afte a fall) Gastrointestinal: Yes: Constipation (realetd to methadone and diabetic neuropathy), Other (diabetic gastroparesis) Hepatobiliary: Yes: Hepatitis C (cured several years ago with Dr Bedolla) Renal/: Yes: Renal Inusuff Heme/Onc: Yes: Cancer (Multiple myeloma -received a course of RT and Velban/ cytoxan/dexamathasone) Infectious Disease: Yes: Other (Hepatitis C cured) Psych: Yes: Depression Musculoskeletal: Yes: Chronic low back pain (multiple thoracolumbar vertebral pathological fractures), Other (multiple thoracolumbar vertebral fractures) Endocrine: Yes: Diabetes Mellitus Dermatology: Yes: Other (varicose veins) Additional Medical History: Laser therapy for diabetic retinopathy - Past Surgical History Past Surgical History: Yes: Amputation (5th digit R foot), Tonsillectomy - Alcohol/Substance Use Hx Alcohol Use: Yes (drank alcohol heavily in the past) History of Substance Use: reports: Cocaine (snorted), Heroin (snorted) - Smoking History Smoking history: Former smoker Have you smoked in the past 12 months: No If you are a former smoker, when did you quit?: 1996 - Social History Usual Living Arrangement: With Spouse ADL: Independent 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 History of Recent Travel: Yes (to [place] a few months ago) Home Medications - Allergies Allergies/Adverse Reactions: Allergies Allergy/AdvReac Type Severity Reaction Status Date / Time No Known Allergies Allergy Verified 01/01/19 16:16 - Home Medications Home Medications: Ambulatory Orders Insulin Glargine,Hum.rec.anlog [Lantus (10mL VIAL) -] 40 unit SQ HS 06/07/15 Acetaminophen [Tylenol .Regular Strength -] 650 mg PO Q6H PRN #0 tablet Buspirone HCl 15 mg PO BID 07/22/18 Ammonium Lactate Lotion [Lac-Hydrin 12] 1 applic TP BID PRN bottle 12/21/18 Aspirin [ASA -] 81 mg PO DAILY tab.chew 12/21/18 Atorvastatin Ca [Lipitor] 80 mg PO HS tablet 12/21/18 Calcium 500Mg/Vit-D 200 Units [Os-Kyler 500+D -] 2 tab PO DAILY tab 12/21/18 Heparin - 5,000 unit SQ BID vial 12/21/18 Insulin Sliding Scale [Novolog Vial Sliding Scale -] 1 vial SQ TIDAC units Methadone HCl 20 mg PO DAILY #60 tablet MDD 2 12/21/18 Metoprolol Tartrate [Lopressor -] 25 mg PO BID tablet 12/21/18 Nystatin Oral Suspension - [Nystatin Oral Susp 898991 Units/5 ML -] 500,000 units PO Q6HPO cup 12/21/18 Ocular Lubricant Ophth Oint [Lacri-Lube S.o.p -] 1 applic OD HS PRN tube Pantoprazole Suspension [Protonix Packets For Oral Suspension -] 40 mg PO DAILY packet 12/21/18 Polyethylene Glycol 3350 [Miralax 119 gm Btl -] 17 gm PO BID bottle 12/21/18 Tamsulosin HCl [Flomax -] 0.8 mg PO DAILY@0830 cap.er.24h 12/21/18 Tiotropium [place] [Spiriva Respimat] 2 puff IH DAILY inhaler 12/21/18 Family Disease History - Family Disease History Family Disease History: CA: Mother, Other: Father ( 90 natural causes), Mother, Brother Review of Systems - Review of Systems Constitutional: reports: Chills, Diaphoresis, Lethargy, Weakness Eyes: reports: No Symptoms HENT: reports: No Symptoms Neck: reports: No Symptoms Cardiovascular: reports: Palpitations, Shortness of Breath Respiratory: reports: Exercise Intolerance Gastrointestinal: reports: Constipation Endocrine: reports: Excessive Sweating, Flushing Psychiatric: reports: Anxiety Physical Exam-GI Vital Signs: Vital Signs Temperature 98.2 F 01/05/19 18:15 Pulse Rate 63 01/05/19 18:15 Respiratory Rate 20 01/05/19 18:15 Blood Pressure 100/57 L 01/05/19 18:15 O2 Sat by Pulse Oximetry (%) 95 01/05/19 08:16 CBC,CMP WBC 6.1 K/mm3 (4.0-10.0) 01/05/19 07:03 Corrected WBC (auto) Cancelled 01/05/19 05:30 RBC 2.63 M/mm3 (4.00-5.60) L 01/05/19 07:03 Hgb 7.6 GM/dL (11.7-16.9) L 01/05/19 07:03 Hct 23.4 % (35.4-49) L 01/05/19 07:03 MCV 89.0 fl (80-96) 01/05/19 07:03 MCH 28.9 pg (25.7-33.7) 01/05/19 07:03 MCHC 32.5 g/dl (32.0-35.9) 01/05/19 07:03 RDW 19.6 % (11.9-15.9) H 01/05/19 07:03 Plt Count 175 K/MM3 (134-434) 01/05/19 07:03 MPV 8.1 fl (7.5-11.1) 01/05/19 07:03 Absolute Neuts (auto) 7.1 K/mm3 (1.5-8.0) 01/04/19 10:45 Neutrophils % 90.7 % (42.8-82.8) H 01/04/19 10:45 Neutrophils % (Manual) 89.9 % (42.8-82.8) H 01/04/19 10:45 Band Neutrophils % 0.0 % 01/04/19 10:45 Lymphocytes % 5.5 % (8-40) L D 01/04/19 10:45 Lymphocytes % (Manual) 7.1 % (8-40) L D 01/04/19 10:45 Monocytes % 3.0 % (3.8-10.2) L 01/04/19 10:45 Monocytes % (Manual) 2 % (3.8-10.2) L 01/04/19 10:45 Eosinophils % 0.3 % (0-4.5) 01/04/19 10:45 Eosinophils % (Manual) 0.0 % (0-4.5) D 01/04/19 10:45 Basophils % 0.5 % (0-2.0) 01/04/19 10:45 Basophils % (Manual) 0.0 % (0-2.0) 01/04/19 10:45 Myelocytes % (Man) 1 % (0-2) 01/04/19 10:45 Promyelocytes % (Man) 0 % (0-2) 01/04/19 10:45 Blast Cells % (Manual) 0 % (0-0) 01/04/19 10:45 Nucleated RBC % 0 % (0-0) 01/04/19 10:45 Metamyelocytes 0 % (0-2) 01/04/19 10:45 Hypochromia 0 01/04/19 10:45 Platelet Estimate Normal 01/04/19 10:45 Platelet Comment Cancelled 01/05/19 05:30 Polychromasia 1+ 01/04/19 10:45 Poikilocytosis 1+ 01/04/19 10:45 Anisocytosis 1+ 01/04/19 10:45 Microcytosis 1+ 01/04/19 10:45 Macrocytosis 0 01/04/19 10:45 Tear Drop Cells 1+ 01/04/19 10:45 Ovalocytes 1+ 01/04/19 10:45 Sodium 140 mmol/L (136-145) 01/05/19 05:30 Potassium 5.0 mmol/L (3.5-5.1) 01/05/19 05:30 Chloride 109 mmol/L (98-107) H 01/05/19 05:30 Carbon Dioxide 24 mmol/L (21-32) 01/05/19 05:30 Anion Gap 7 MMOL/L (8-16) L 01/05/19 05:30 BUN 25 mg/dL (7-18) H 01/05/19 05:30 Creatinine 1.5 mg/dL (0.55-1.3) H 01/05/19 05:30 Creat Clearance w eGFR 46.97 (>60) 01/05/19 05:30 POC Glucometer 134 UNITS (80-120) 01/05/19 17:08 Random Glucose 108 mg/dL (74-106) H 01/05/19 05:30 Hemoglobin A1c % 6.3 % (4.2-6.3) 01/04/19 06:30 Lactic Acid 2.1 mmol/L (0.4-2.0) H 01/04/19 17:10 Calcium 7.4 mg/dL (8.5-10.1) L 01/05/19 05:30 Total Bilirubin 0.2 mg/dL (0.2-1) 01/04/19 10:45 AST 55 U/L (15-37) H 01/04/19 10:45 ALT 20 U/L (13-61) 01/04/19 10:45 Alkaline Phosphatase 95 U/L (45-117) 01/04/19 10:45 Creatine Kinase 282 U/L (26-308) 01/04/19 10:45 Creatine Kinase Index 5.4 % (0.0-5.0) H 01/04/19 10:45 CK-MB (CK-2) 15.3 ng/mL (0.5-3.6) H 01/04/19 10:45 Troponin I 18.40 ng/ml (0.00-0.05) H* 01/05/19 05:30 Total Protein 5.5 g/dl (6.4-8.2) L 01/04/19 10:45 Albumin 2.4 g/dl (3.4-5.0) L 01/04/19 10:45 TSH 0.87 uIU/ml (0.358-3.74) D 01/01/19 21:16 Free T4 1.12 ng/dl (0.76-1.16) 01/01/19 21:16 Current Medications Generic Name Dose Route Start Last Admin Trade Name Freq PRN Reason Stop Dose Admin Al Hydroxide/Mg Hydroxide 30 ml 01/03/19 11:35 01/04/19 08:08 Mylanta Oral Suspension - PO 30 ml Q6H PRN Administration INDIGESTION Artificial Tears 1 applic 01/01/19 19:22 Artificial Tears Ointment - OD HS PRN DRY EYES Aspirin 81 mg 01/02/19 10:00 01/05/19 09:11 Asa - PO 81 mg DAILY [facility] Administration Atorvastatin Calcium 80 mg 01/01/19 22:00 01/04/19 21:15 Lipitor - PO 80 mg HS [facility] Administration Buspirone HCl 10 mg/ Buspirone 15 mg 01/04/19 10:00 01/05/19 09:12 HCl 5 mg PO 15 mg BID [facility] Administration Calcium Carbonate/Cholecalciferol 1 tab 01/02/19 10:00 01/05/19 10:34 Os-Kyler 500+D - PO 1 tab BID [facility] Administration Clopidogrel Bisulfate 75 mg 01/05/19 10:00 01/05/19 09:11 Plavix - PO 75 mg DAILY [facility] Administration Furosemide 40 mg 01/04/19 14:00 01/05/19 15:01 Lasix Injection - IVPUSH 40 mg BID@0600,1400 [facility] Administration Heparin Sodium (Porcine) 1,000 unit 01/04/19 21:18 Heparin - IVPUSH PRN PRN Heparin Heparin Sodium (Porcine) 5,000 unit 01/04/19 21:18 Heparin - IVPUSH PRN PRN Heparin Piperacillin Sod/Tazobactam 50 mls @ 100 mls/hr 01/03/19 18:00 01/05/19 17:09 Sod 2.25 gm/ Dextrose IVPB 100 mls/hr Q8H-IV [facility] Administration Protocol Heparin Sodium (Porcine) 25, 500 mls @ 20 mls/hr 01/04/19 21:30 01/04/19 22: 43 000 unit/ Sodium Chloride IV 1,000 unit/hr TITR [facility] 20 mls/hr Administration Protocol 1,000 UNIT/HR Insulin Aspart 1 vial 01/01/19 22:00 01/05/19 17:09 Novolog Vial Sliding Scale - SQ Not Given ACHS [facility] Protocol Insulin Detemir 10 units 01/05/19 11:40 Levemir Vial SQ DAILY@0700 [facility] Methadone HCl 20 mg 01/05/19 11:44 Dolophine - PO DAILY@0600 [facility] Methylnaltrexone [place] 12 mg 01/04/19 10:00 01/04/19 13:19 Relistor - SQ 12 mg Q2D@1000 [facility] Administration Metoprolol Tartrate 25 mg 01/05/19 13:07 Lopressor - PO BID [facility] Oxycodone HCl 10 mg 01/04/19 08:16 01/05/19 19:06 Roxicodone - PO 10 mg Q6H PRN Administration PAIN LEVEL 6-10 Pantoprazole Sodium 40 mg 01/02/19 10:00 01/05/19 09:12 Protonix Packets For Oral Suspension - PO 40 mg DAILY [facility] Administration Fluticasone/Salmeterol 1 puff 01/01/19 22:00 01/05/19 09:24 Advair 100mcg/50mcg - IH Not Given BID [facility] Sertraline HCl 50 mg 01/02/19 10:00 01/05/19 09:11 Zoloft - PO 50 mg DAILY [facility] Administration Tamsulosin HCl 0.4 mg 01/02/19 08:30 01/05/19 09:11 Flomax - PO 0.4 mg DAILY@0830 [facility] Administration Tiotropium [place] 2 puff 01/02/19 10:00 01/05/19 09:13 Spiriva Respimat IH 2 puff DAILY [facility] Administration Valacyclovir HCl 500 mg 01/02/19 10:00 01/05/19 15:15 Valtrex - PO 500 mg DAILY [facility] Administration Constitutional: Yes: Calm Eyes: Yes: Conjunctiva Clear HENT: Yes: Atraumatic Neck: Yes: Supple Cardiovascular: Yes: Regular Rate and Rhythm Respiratory: Yes: Rales (scattered bilaterally) Gastrointestinal Inspection: Yes: Distention ...Auscultate: Yes: Normoactive Bowel Sounds ...Palpate: Yes: Soft ...Rectal Exam: Yes: Guaiac Negative (full of brown semisolid stool) Edema: No Neurological: Yes: Alert Labs: CBC, BMP 01/05/19 07:03 01/05/19 05:30 INR, PTT INR 1.19 (0.83-1.09) H 01/01/19 16:40 Problem List - Problems (1) Constipation Assessment/Plan: Multifactorial constipation with etiologies that include narcotic effect, diabetic autonomic neuropathy and sedentary state. Miralax will be continued but will also give Relistor adjusted for his renal function. I discussed he need to wean off the Methadone but he is resistant. Perhaps one of our substance abuse physicians can help. Code(s): K59.00 - CONSTIPATION, UNSPECIFIED (2) Diabetic gastroparesis Assessment/Plan: No nausea or vomiting Code(s): E11.43 - TYPE 2 DIABETES W DIABETIC AUTONOMIC (POLY)NEUROPATHY; K31.84 - GASTROPARESIS (3) Hepatitis C Assessment/Plan: cured Code(s): B19.20 - UNSPECIFIED VIRAL HEPATITIS C WITHOUT HEPATIC COMA (4) Hypoglycemia Code(s): E16.2 - HYPOGLYCEMIA, UNSPECIFIED (5) NSTEMI (non-ST elevated myocardial infarction) Code(s): I21.4 - NON-ST ELEVATION (NSTEMI) MYOCARDIAL INFARCTION (6) Tachycardia Code(s): R00.0 - TACHYCARDIA, UNSPECIFIED (7) CKD (chronic kidney disease) Code(s): N18.9 - CHRONIC KIDNEY DISEASE, UNSPECIFIED (8) Diabetic neuropathy Code(s): E11.40 - TYPE 2 DIABETES MELLITUS WITH DIABETIC NEUROPATHY, UNSP (9) History of cocaine abuse Code(s): Z87.898 - PERSONAL HISTORY OF OTHER SPECIFIED CONDITIONS (10) History of heroin abuse Code(s): Z87.898 - PERSONAL HISTORY OF OTHER SPECIFIED CONDITIONS (11) History of substance abuse Code(s): Z87.898 - PERSONAL HISTORY OF OTHER SPECIFIED CONDITIONS (12) Multiple myeloma Code(s): C90.00 - MULTIPLE MYELOMA NOT HAVING ACHIEVED REMISSION (13) Narcotic dependence Code(s): F11.20 - OPIOID DEPENDENCE, UNCOMPLICATED (14) Respiratory failure Code(s): J96.90 - RESPIRATORY FAILURE, UNSP, UNSP W HYPOXIA OR HYPERCAPNIA (15) Type 2 diabetes mellitus with foot ulcer Code(s): E11.621 - TYPE 2 DIABETES MELLITUS WITH FOOT ULCER; L97.509 - NON- PRESSURE CHRONIC ULCER OTH PRT UNSP FOOT W UNSP SEVERITY Qualifiers: (16) Vertebral compression fracture Code(s): M48.50XA - COLLAPSED VERTEBRA, NEC, SITE UNSP, INIT (17) Asthma Code(s): J45.909 - UNSPECIFIED ASTHMA, UNCOMPLICATED (18) History of GI bleed Assessment/Plan: PPI to prevent stress gastritis bleed Code(s): Z87.19 - PERSONAL HISTORY OF OTHER DISEASES OF THE DIGESTIVE SYSTEM Assessment/Plan Impression: Multifactorial constipation with etiologies that include narcotic effect, diabetic autonomic neuropathy and sedentary state. H/O diabetic gastoparesis H/O GIB ? stress gastritis while on ventilator Cured HCV Plan Miralax and Relistor adjusted for his renal function. I discussed he need to wean off the Methadone but he is resistant. Perhaps one of our substance abuse physicians can help. PPI to prevent stress gastritis bleed
--- NOTE | 2019-01-05 20:36 | PN ---
Progress Note (short form) - Note Progress Note: PAtient seen and examined Denies any complaints AFVSS Cor: RSR, No murmurs, No gallops Lungs: Clear to P&A Abd: Soft, Normal bowel sounds, No organomegaly Ext:No significant edema Abnormal Lab Results 01/02/19 01/06/19 01/06/19 10:10 07:00 07:00 RBC 2.62 L Hgb 7.6 L Hct 23.4 L RDW 19.0 H PTT (Actin FS) 47.3 H BUN Creatinine Random Glucose Calcium Troponin I Total Protein Albumin Ur Free Cortisol 24 Hr 182 H 01/06/19 07:00 RBC Hgb Hct RDW PTT (Actin FS) BUN 25 H Creatinine 1.5 H Random Glucose 159 H Calcium 7.9 L Troponin I 6.55 H* Total Protein 5.5 L Albumin 2.3 L Ur Free Cortisol 24 Hr Active Medications Al Hydroxide/Mg Hydroxide (Mylanta Oral Suspension -) 30 ml PO Q6H PRN PRN Reason: INDIGESTION Last Admin: 01/04/19 08:08 Dose: 30 ml Artificial Tears (Artificial Tears Ointment -) 1 applic OD HS PRN PRN Reason: DRY EYES Aspirin (Asa -) 81 mg PO DAILY [facility] Last Admin: 01/06/19 09:13 Dose: 81 mg Atorvastatin Calcium (Lipitor -) 80 mg PO HS [facility] Last Admin: 01/05/19 21:23 Dose: 80 mg Buspirone HCl 10 mg/ Buspirone (HCl 5 mg) 15 mg PO BID [facility] Last Admin: 01/06/19 09:14 Dose: 15 mg Calcium Carbonate/Cholecalciferol (Os-Kyler 500+D -) 1 tab PO BID [facility] Last Admin: 01/06/19 09:13 Dose: 1 tab Clopidogrel Bisulfate (Plavix -) 75 mg PO DAILY [facility] Last Admin: 01/06/19 09:13 Dose: 75 mg Furosemide (Lasix Injection -) 40 mg IVPUSH BID@0600,1400 [facility] Last Admin: 01/06/19 13:05 Dose: 40 mg Heparin Sodium (Porcine) (Heparin -) 1,000 unit IVPUSH PRN PRN PRN Reason: Heparin Last Admin: 01/06/19 12:51 Dose: 1,000 unit Heparin Sodium (Porcine) (Heparin -) 5,000 unit IVPUSH PRN PRN PRN Reason: Heparin Piperacillin Sod/Tazobactam (Sod 2.25 gm/ Dextrose) 50 mls @ 100 mls/hr IVPB Q8H-IV [facility]; Protocol Last Admin: 01/06/19 09:10 Dose: 100 mls/hr Heparin Sodium (Porcine) 25, (000 unit/ Sodium Chloride) 500 mls @ 20 mls/hr IV TITR [facility]; Protocol Last Titration: 01/06/19 12:48 Dose: 1,100 unit/hr, 22 mls/hr Insulin Aspart (Novolog Vial Sliding Scale -) 1 vial SQ ACHS [facility]; Protocol Last Admin: 01/06/19 12:17 Dose: Not Given Insulin Detemir (Levemir Vial) 10 units SQ DAILY@0700 [facility] Last Admin: 01/06/19 06:08 Dose: Not Given Methadone HCl (Dolophine -) 30 mg PO DAILY [facility] Methylnaltrexone [place] (Relistor -) 12 mg SQ Q2D@1000 [facility] Last Admin: 01/06/19 10:40 Dose: 12 mg Metoprolol Tartrate (Lopressor -) 25 mg PO BID [facility] Last Admin: 01/06/19 09:14 Dose: 25 mg Oxycodone HCl (Roxicodone -) 10 mg PO Q6H PRN PRN Reason: PAIN LEVEL 6-10 Last Admin: 01/06/19 13:11 Dose: 10 mg Pantoprazole Sodium (Protonix Packets For Oral Suspension -) 40 mg PO DAILY [facility] Last Admin: 01/06/19 09:14 Dose: 40 mg Polyethylene Glycol (Miralax (For Daily Use) -) 17 gm PO BID [facility] Last Admin: 01/06/19 09:38 Dose: 17 gm Fluticasone/Salmeterol (Advair 100mcg/50mcg -) 1 puff IH BID [facility] Last Admin: 01/06/19 09:21 Dose: Not Given Sertraline HCl (Zoloft -) 50 mg PO DAILY [facility] Last Admin: 01/06/19 09:13 Dose: 50 mg Tamsulosin HCl (Flomax -) 0.4 mg PO DAILY@0830 [facility] Last Admin: 01/06/19 09:13 Dose: 0.4 mg Tiotropium [place] (Spiriva Respimat) 2 puff IH DAILY [facility] Last Admin: 01/06/19 09:18 Dose: 2 puff Valacyclovir HCl (Valtrex -) 500 mg PO DAILY [facility] Last Admin: 01/06/19 09:13 Dose: 500 mg A/P 63 yo man recently diagnosed with multiple. myeloma, recently discharged from inpatient- (was in ICU intubated for pneumonia and respiratory failure) to rehab facility. He signed himself out of rehab morning and took insulin sc dose and was later found to be obtunded and diaphoretic, shakey, glucometer was not readable. He was then brought to the hospital and received d50 IV, after which his mental status returned to baseline. Echocardiogram showed EF 45-50% without regional variability. Unchanged from echo done 11/2018. ECG with anterior wall T wave inversions. myeloma--s/p rt to l spine episural disease/left acetabulum s/p velcade/cytoxan/dex given recent course and critical illness neuropathy will switch to revlimid Another episode pf pulmonary edema/NSTEMI Cardiology f/u Altered mental status resolved will follow
[2019-01-05] MEDS: POLYETHYLENE GLYCOL 3350 119 GM BTL PO SCH (21:21)
[2019-01-05] MEDS: ATORVASTATIN CA 80 MG TABLET (FP) PO SCH (21:23)
[2019-01-05] MEDS: HEPARIN - 25,000 UNIT in SODIUM CHLORIDE 495 ML IV SCH (21:55)
[2019-01-06] MEDS ORDERED: PIPERACILLIN/TAZOBACTAM 2.25 GM VIAL IVPB ONE ×3 (01:01→17:05)
[2019-01-06] MEDS ORDERED: DEXTROSE 5%-WATER - 50 ML IVPB ONE ×3 (01:02→17:05)
[2019-01-06] MEDS: oxyCODONE HCL 5 MG TABLET PO PRN ×4 (01:07→21:45)
[2019-01-06] MEDS: PIPERACILLIN/TAZOB 2.25 GM 2.25 GM in DEXTROSE 5%-WATER - 50 ML IVPB SCH ×3 (01:10→17:14)
[2019-01-06] MEDS: FUROSEMIDE 40 MG/4 ML INJECTABLE VIAL IVPUSH SCH ×2 (05:31→13:05)
[2019-01-06] MEDS: INSULIN (LEVEMIR) 100 UNITS/ML UNITS SQ SCH (06:08)
[2019-01-06] MEDS: INSULIN SLIDING SCALE (NOVOLOG) 1 VIAL SQ SCH ×4 (06:09→21:42)
[2019-01-06 08:18] LABS: BASO % 0.5 % (0-2.0); EOS % 1.9 % (0-4.5); HEMATOCRIT 23.4 % (35.4-49); HEMOGLOBIN 7.6 GM/dL (11.7-16.9); MCH 29.1 pg (25.7-33.7); MCHC 32.7 g/dl (32.0-35.9); MEAN PLT VOLUME 7.8 fl (7.5-11.1); MONO % 4.2 % (3.8-10.2); NEUT % 79.4 % (42.8-82.8); PLATELET COUNT 176 K/MM3 (134-434); RBC 2.62 M/mm3 (4.00-5.60); WHITE BLOOD COUNT 5.4 K/mm3 (4.0-10.0)
--- NOTE | 2019-01-06 08:31 | PN ---
Progress Note (short form) - Note Progress Note: Patient seen and examined Complains of some anterior chest pains Complains of some SOB Distressed about methadone dosing and does not want to lower or make changes in dosing Last Vital Signs Temp Pulse Resp BP Pulse Ox 98.1 F 81 20 114/65 97 01/06/19 06:00 01/06/19 06:00 01/06/19 06:00 01/06/19 06:00 01/05/19 21:00 HEENT: [place], EOM Intact Oropharynx: No thrush, No mucositis Cor: RSR, No murmurs, No gallops Lungs: rales bases Abd: Soft, Normal bowel sounds, No organomegaly Ext:No significant edema Skin: No rashes, Integument intact,stasis changes Current Medications Generic Name Dose Route Start Last Admin Trade Name Freq PRN Reason Stop Dose Admin Al Hydroxide/Mg Hydroxide 30 ml 01/03/19 11:35 01/04/19 08:08 Mylanta Oral Suspension - PO 30 ml Q6H PRN Administration INDIGESTION Artificial Tears 1 applic 01/01/19 19:22 Artificial Tears Ointment - OD HS PRN DRY EYES Aspirin 81 mg 01/02/19 10:00 01/05/19 09:11 Asa - PO 81 mg DAILY YAKOV Administration Atorvastatin Calcium 80 mg 01/01/19 22:00 01/05/19 21:23 Lipitor - PO 80 mg HS YAKOV Administration Buspirone HCl 10 mg/ Buspirone 15 mg 01/04/19 10:00 01/05/19 21:23 HCl 5 mg PO 15 mg BID YAKOV Administration Calcium Carbonate/Cholecalciferol 1 tab 01/02/19 10:00 01/05/19 21:23 Os-Kyler 500+D - PO 1 tab BID YAKOV Administration Clopidogrel Bisulfate 75 mg 01/05/19 10:00 01/05/19 09:11 Plavix - PO 75 mg DAILY YAKOV Administration Furosemide 40 mg 01/04/19 14:00 01/06/19 05:31 Lasix Injection - IVPUSH 40 mg BID@0600,1400 YAKOV Administration Heparin Sodium (Porcine) 1,000 unit 01/04/19 21:18 Heparin - IVPUSH PRN PRN Heparin Heparin Sodium (Porcine) 5,000 unit 01/04/19 21:18 Heparin - IVPUSH PRN PRN Heparin Piperacillin Sod/Tazobactam 50 mls @ 100 mls/hr 01/03/19 18:00 01/06/19 01:10 Sod 2.25 gm/ Dextrose IVPB 100 mls/hr Q8H-IV YAKOV Administration Protocol Heparin Sodium (Porcine) 25, 500 mls @ 20 mls/hr 01/04/19 21:30 01/05/19 21: 55 000 unit/ Sodium Chloride IV 1,000 unit/hr TITR YAKOV 20 mls/hr Administration Protocol 1,000 UNIT/HR Insulin Aspart 1 vial 01/01/19 22:00 01/06/19 06:09 Novolog Vial Sliding Scale - SQ Not Given ACHS [facility] Protocol Insulin Detemir 10 units 01/05/19 11:40 01/06/19 06:08 Levemir Vial SQ Not Given DAILY@0700 [facility] Methadone HCl 20 mg 01/05/19 11:44 01/06/19 05:31 Dolophine - PO 20 mg DAILY@0600 [facility] Administration Methylnaltrexone [place] 12 mg 01/04/19 10:00 01/04/19 13:19 Relistor - SQ 12 mg Q2D@1000 [facility] Administration Metoprolol Tartrate 25 mg 01/05/19 13:07 01/05/19 21:23 Lopressor - PO 25 mg BID [facility] Administration Oxycodone HCl 10 mg 01/04/19 08:16 01/06/19 06:55 Roxicodone - PO 10 mg Q6H PRN Administration PAIN LEVEL 6-10 Pantoprazole Sodium 40 mg 01/02/19 10:00 01/05/19 09:12 Protonix Packets For Oral Suspension - PO 40 mg DAILY [facility] Administration Polyethylene Glycol 17 gm 01/05/19 22:00 01/05/19 21:21 Miralax (For Daily Use) - PO 17 gm BID [facility] Administration Fluticasone/Salmeterol 1 puff 01/01/19 22:00 01/05/19 21:21 Advair 100mcg/50mcg - IH Not Given BID YAKOV Sertraline HCl 50 mg 01/02/19 10:00 01/05/19 09:11 Zoloft - PO 50 mg DAILY YAKOV Administration Tamsulosin HCl 0.4 mg 01/02/19 08:30 01/05/19 09:11 Flomax - PO 0.4 mg DAILY@0830 YAKOV Administration Tiotropium [place] 2 puff 01/02/19 10:00 01/05/19 09:13 Spiriva Respimat IH 2 puff DAILY YAKOV Administration Valacyclovir HCl 500 mg 01/02/19 10:00 01/05/19 15:15 Valtrex - PO 500 mg DAILY YAKOV Administration Impression: NSTEMI DM CHF Hypoglycemia Multiple myeloma- not in remission Bone mets Methadone maintenance Constipation Plan: To verify dosing of methadone Holding on revlimid Medical therapy of [place] and CHF. Continuing on Relistor for constipation.
[2019-01-06 08:38] LABS: ALBUMIN 2.3 g/dl (3.4-5.0); ALK PHOS 79 U/L (45-117); ANION GAP 9 MMOL/L (8-16); BILIRUBIN,TOTAL 0.2 mg/dL (0.2-1); BLOOD UREA NITROGEN 25 mg/dL (7-18); CALCIUM 7.9 mg/dL (8.5-10.1); CHLORIDE 104 mmol/L (98-107); CO2 26 mmol/L (21-32); CREATININE 1.5 mg/dL (0.55-1.3); GLUCOSE,RANDOM 159 mg/dL (74-106); POTASSIUM 4.3 mmol/L (3.5-5.1); SGOT/AST 37 U/L (15-37); SGPT/ALT 22 U/L (13-61); SODIUM 139 mmol/L (136-145); TOT PROT 5.5 g/dl (6.4-8.2)
[2019-01-06] MEDS ORDERED: PT OWN MED DRAWER 7, Y5N ONE ×4 (08:52→21:44)
--- NOTE | 2019-01-06 08:59 | PN ---
Progress Note, Physician - Current Medication List Current Medications: Active Medications Al Hydroxide/Mg Hydroxide (Mylanta Oral Suspension -) 30 ml PO Q6H PRN PRN Reason: INDIGESTION Last Admin: 01/04/19 08:08 Dose: 30 ml Artificial Tears (Artificial Tears Ointment -) 1 applic OD HS PRN PRN Reason: DRY EYES Aspirin (Asa -) 81 mg PO DAILY [facility] Last Admin: 01/05/19 09:11 Dose: 81 mg Atorvastatin Calcium (Lipitor -) 80 mg PO HS [facility] Last Admin: 01/05/19 21:23 Dose: 80 mg Buspirone HCl 10 mg/ Buspirone (HCl 5 mg) 15 mg PO BID [facility] Last Admin: 01/05/19 21:23 Dose: 15 mg Calcium Carbonate/Cholecalciferol (Os-Kyler 500+D -) 1 tab PO BID [facility] Last Admin: 01/05/19 21:23 Dose: 1 tab Clopidogrel Bisulfate (Plavix -) 75 mg PO DAILY [facility] Last Admin: 01/05/19 09:11 Dose: 75 mg Furosemide (Lasix Injection -) 40 mg IVPUSH BID@0600,1400 [facility] Last Admin: 01/06/19 05:31 Dose: 40 mg Heparin Sodium (Porcine) (Heparin -) 1,000 unit IVPUSH PRN PRN PRN Reason: Heparin Heparin Sodium (Porcine) (Heparin -) 5,000 unit IVPUSH PRN PRN PRN Reason: Heparin Piperacillin Sod/Tazobactam (Sod 2.25 gm/ Dextrose) 50 mls @ 100 mls/hr IVPB Q8H-IV [facility]; Protocol Last Admin: 01/06/19 01:10 Dose: 100 mls/hr Heparin Sodium (Porcine) 25, (000 unit/ Sodium Chloride) 500 mls @ 20 mls/hr IV TITR [facility]; Protocol Last Admin: 01/05/19 21:55 Dose: 1,000 unit/hr, 20 mls/hr Insulin Aspart (Novolog Vial Sliding Scale -) 1 vial SQ ACHS [facility]; Protocol Last Admin: 01/06/19 06:09 Dose: Not Given Insulin Detemir (Levemir Vial) 10 units SQ DAILY@0700 [facility] Last Admin: 01/06/19 06:08 Dose: Not Given Methadone HCl (Dolophine -) 20 mg PO DAILY@0600 [facility] Last Admin: 01/06/19 05:31 Dose: 20 mg Methylnaltrexone [place] (Relistor -) 12 mg SQ Q2D@1000 [facility] Last Admin: 01/04/19 13:19 Dose: 12 mg Metoprolol Tartrate (Lopressor -) 25 mg PO BID [facility] Last Admin: 01/05/19 21:23 Dose: 25 mg Oxycodone HCl (Roxicodone -) 10 mg PO Q6H PRN PRN Reason: PAIN LEVEL 6-10 Last Admin: 01/06/19 06:55 Dose: 10 mg Pantoprazole Sodium (Protonix Packets For Oral Suspension -) 40 mg PO DAILY [facility] Last Admin: 01/05/19 09:12 Dose: 40 mg Polyethylene Glycol (Miralax (For Daily Use) -) 17 gm PO BID [facility] Last Admin: 01/05/19 21:21 Dose: 17 gm Fluticasone/Salmeterol (Advair 100mcg/50mcg -) 1 puff IH BID [facility] Last Admin: 01/05/19 21:21 Dose: Not Given Sertraline HCl (Zoloft -) 50 mg PO DAILY [facility] Last Admin: 01/05/19 09:11 Dose: 50 mg Tamsulosin HCl (Flomax -) 0.4 mg PO DAILY@0830 [facility] Last Admin: 01/05/19 09:11 Dose: 0.4 mg Tiotropium [place] (Spiriva Respimat) 2 puff IH DAILY [facility] Last Admin: 01/05/19 09:13 Dose: 2 puff Valacyclovir HCl (Valtrex -) 500 mg PO DAILY [facility] Last Admin: 01/05/19 15:15 Dose: 500 mg - Objective Vital Signs: Vital Signs Temperature 98.1 F 01/06/19 06:00 Pulse Rate 81 01/06/19 06:00 Respiratory Rate 20 01/06/19 06:00 Blood Pressure 114/65 01/06/19 06:00 O2 Sat by Pulse Oximetry (%) 97 01/05/19 21:00 Cardiovascular: Yes: S1, S2 Respiratory: Yes: On Nasal O2, Rhonchi Gastrointestinal: Yes: Normal Bowel Sounds, Soft Labs: CBC, BMP 01/06/19 07:00 01/06/19 07:00 INR, PTT INR 1.19 (0.83-1.09) H 01/01/19 16:40 Problem List - Problems (1) Tachycardia Code(s): R00.0 - TACHYCARDIA, UNSPECIFIED (2) Elevated troponin Code(s): R74.8 - ABNORMAL LEVELS OF OTHER SERUM ENZYMES (3) Hypoglycemia Code(s): E16.2 - HYPOGLYCEMIA, UNSPECIFIED (4) NSTEMI (non-ST elevated myocardial infarction) Code(s): I21.4 - NON-ST ELEVATION (NSTEMI) MYOCARDIAL INFARCTION (5) Respiratory distress Code(s): R06.03 - ACUTE RESPIRATORY DISTRESS (6) Substance abuse Code(s): F19.10 - OTHER PSYCHOACTIVE SUBSTANCE ABUSE, UNCOMPLICATED (7) UTI (urinary tract infection) Code(s): N39.0 - URINARY TRACT INFECTION, SITE NOT SPECIFIED Assessment/Plan Problems (1) Hypoglycemia monitor bgm endo appreciated Code(s): E16.2 - HYPOGLYCEMIA, UNSPECIFIED (2) Elevated troponin Assessment/Plan: telemetry cardiology trend troponin asprin lipitor Code(s): R74.8 - ABNORMAL LEVELS OF OTHER SERUM ENZYMES (3) Narcotic dependence Assessment/Plan: prior IVDA methadone 30 his bottle of methadone is at [facility] [place] Code(s): F11.20 - OPIOID DEPENDENCE, UNCOMPLICATED (4) Constipation Assessment/Plan: relistor Code(s): K59.00 - CONSTIPATION, UNSPECIFIED (5) CKD (chronic kidney disease) Assessment/Plan: renal folow up Code(s): N18.9 - CHRONIC KIDNEY DISEASE, UNSPECIFIED (6) Anemia Assessment/Plan: Multiple myloma heme on board check stool occult blodd if h/h less 7 will transfuse Code(s): D64.9 - ANEMIA, UNSPECIFIED (7) Respiratory distress Assessment/Plan: iv lasix bid cxr improving nasal oxygen Code(s): R06.03 - ACUTE RESPIRATORY DISTRESS
[2019-01-06] MEDS: ASPIRIN 81 MG CHEWABLE TABLETS PO SCH (09:13)
[2019-01-06] MEDS: valACYclovir HCL 500 MG TABLET (FP) PO SCH (09:13)
[2019-01-06] MEDS: SERTRALINE HCL 50 MG TABLET (FP) PO SCH (09:13)
[2019-01-06] MEDS: TAMSULOSIN HCL 0.4 MG CAP PO SCH (09:13)
[2019-01-06] MEDS: CALCIUM 500MG/VIT-D 200 UNITS COMBO TABLET (FP) PO SCH ×2 (09:13→21:41)
[2019-01-06] MEDS: CLOPIDOGREL BISULFATE 75 MG TABLET (FP) PO SCH (09:13)
[2019-01-06] MEDS: METOPROLOL TARTRATE 25 MG TABLET (FP) PO SCH (09:14)
[2019-01-06] MEDS: BUSPIRONE HCL 10 MG, BUSPIRONE HCL 5 MG PO SCH ×2 (09:14→21:44)
[2019-01-06] MEDS: PANTOPRAZOLE SOD 40 MG SUSPENSION PACKET PO SCH (09:14)
[2019-01-06] MEDS: TIOTROPIUM BROMIDE 2.5 MCG (SPIRIVA) RESPIMAT INHALER IH SCH (09:18)
[2019-01-06] MEDS: FLUTICASONE/SALMETEROL 100 MCG/50 MCG DISKUS IH SCH ×2 (09:21→21:42)
[2019-01-06] MEDS: POLYETHYLENE GLYCOL 3350 119 GM BTL PO SCH ×2 (09:38→21:42)
[2019-01-06] MEDS: Methylnaltrexone Bromide 12 MG/0.6 ML KIT SQ SCH (10:40)
[2019-01-06] MEDS ORDERED: METHADONE HCL 10 MG TABLET PO ONE (12:15)
--- NOTE | 2019-01-06 14:15 | PN.GI ---
GI Progress Note Subjective: GI NOte: had a BM last night and again today. NO pain. Expresses that he does not want his Methadone dosage lowered despite my explanation of how it adversely impacts him. - Objective Vital Signs: Vital Signs Temperature 97.9 F 01/06/19 10:00 Pulse Rate 83 01/06/19 10:00 Respiratory Rate 20 01/06/19 10:00 Blood Pressure 126/73 01/06/19 10:00 O2 Sat by Pulse Oximetry (%) 97 01/05/19 21:00 Constitutional: No Distress ...Auscultate: Yes: Normoactive Bowel Sounds ...Palpate: Yes: Soft, Other (nontender) Labs: CBC, BMP 01/06/19 07:00 01/06/19 07:00 INR, PTT INR 1.19 (0.83-1.09) H 01/01/19 16:40 Assessment/Plan Impression: Multifactorial constipation with etiologies that include narcotic effect, diabetic autonomic neuropathy and sedentary state. H/O diabetic gastoparesis H/O GIB ? stress gastritis while on ventilator Cured HCV Plan Continue Miralax and Relistor PPI to prevent stress gastritis bleed Problem List - Problems (1) Constipation Code(s): K59.00 - CONSTIPATION, UNSPECIFIED (2) Diabetic gastroparesis Code(s): E11.43 - TYPE 2 DIABETES W DIABETIC AUTONOMIC (POLY)NEUROPATHY; K31.84 - GASTROPARESIS (3) Hepatitis C Code(s): B19.20 - UNSPECIFIED VIRAL HEPATITIS C WITHOUT HEPATIC COMA (4) Hypoglycemia Code(s): E16.2 - HYPOGLYCEMIA, UNSPECIFIED (5) NSTEMI (non-ST elevated myocardial infarction) Code(s): I21.4 - NON-ST ELEVATION (NSTEMI) MYOCARDIAL INFARCTION (6) Tachycardia Code(s): R00.0 - TACHYCARDIA, UNSPECIFIED (7) CKD (chronic kidney disease) Code(s): N18.9 - CHRONIC KIDNEY DISEASE, UNSPECIFIED (8) Diabetic neuropathy Code(s): E11.40 - TYPE 2 DIABETES MELLITUS WITH DIABETIC NEUROPATHY, UNSP (9) History of cocaine abuse Code(s): Z87.898 - PERSONAL HISTORY OF OTHER SPECIFIED CONDITIONS (10) History of heroin abuse Code(s): Z87.898 - PERSONAL HISTORY OF OTHER SPECIFIED CONDITIONS (11) History of substance abuse Code(s): Z87.898 - PERSONAL HISTORY OF OTHER SPECIFIED CONDITIONS (12) Multiple myeloma Code(s): C90.00 - MULTIPLE MYELOMA NOT HAVING ACHIEVED REMISSION (13) Narcotic dependence Code(s): F11.20 - OPIOID DEPENDENCE, UNCOMPLICATED (14) Respiratory failure Code(s): J96.90 - RESPIRATORY FAILURE, UNSP, UNSP W HYPOXIA OR HYPERCAPNIA (15) Type 2 diabetes mellitus with foot ulcer Code(s): E11.621 - TYPE 2 DIABETES MELLITUS WITH FOOT ULCER; L97.509 - NON- PRESSURE CHRONIC ULCER OTH PRT UNSP FOOT W UNSP SEVERITY Qualifiers: (16) Vertebral compression fracture Code(s): M48.50XA - COLLAPSED VERTEBRA, NEC, SITE UNSP, INIT (17) Asthma Code(s): J45.909 - UNSPECIFIED ASTHMA, UNCOMPLICATED (18) History of GI bleed Code(s): Z87.19 - PERSONAL HISTORY OF OTHER DISEASES OF THE DIGESTIVE SYSTEM
--- NOTE | 2019-01-06 14:48 | PN ---
Progress Note, Physician Chief Complaint: Cardiology FU No further chest pain No dyspnea. Telem NSR-transient SVT History of Present Illness: 63 yo man recently diagnosed with mult. osminlemona, recently discharged from inpatient- (was in ICU intubated for pneumonia and respiratory failure) to rehab facility. He signed himself out of rehab this morning and took insulin sc dose and was later found to be obtunded and diaphoretic, shakey, glucometer was not readable. He was then brought to the hospital and received d50 IV, after which his mental status returned to baseline. Noted to have elevated TP level. Echocardiogram showed EF 45-50% without regional variability. Unchanged from echo done 11/2018. - Current Medication List Current Medications: Active Medications Al Hydroxide/Mg Hydroxide (Mylanta Oral Suspension -) 30 ml PO Q6H PRN PRN Reason: INDIGESTION Last Admin: 01/04/19 08:08 Dose: 30 ml Artificial Tears (Artificial Tears Ointment -) 1 applic OD HS PRN PRN Reason: DRY EYES Aspirin (Asa -) 81 mg PO DAILY [facility] Last Admin: 01/06/19 09:13 Dose: 81 mg Atorvastatin Calcium (Lipitor -) 80 mg PO HS [facility] Last Admin: 01/05/19 21:23 Dose: 80 mg Buspirone HCl 10 mg/ Buspirone (HCl 5 mg) 15 mg PO BID [facility] Last Admin: 01/06/19 09:14 Dose: 15 mg Calcium Carbonate/Cholecalciferol (Os-Kyler 500+D -) 1 tab PO BID [facility] Last Admin: 01/06/19 09:13 Dose: 1 tab Clopidogrel Bisulfate (Plavix -) 75 mg PO DAILY [facility] Last Admin: 01/06/19 09:13 Dose: 75 mg Furosemide (Lasix Injection -) 40 mg IVPUSH BID@0600,1400 [facility] Last Admin: 01/06/19 13:05 Dose: 40 mg Piperacillin Sod/Tazobactam (Sod 2.25 gm/ Dextrose) 50 mls @ 100 mls/hr IVPB Q8H-IV [facility]; Protocol Last Admin: 01/06/19 09:10 Dose: 100 mls/hr Insulin Aspart (Novolog Vial Sliding Scale -) 1 vial SQ ACHS [facility]; Protocol Last Admin: 01/06/19 12:17 Dose: Not Given Insulin Detemir (Levemir Vial) 10 units SQ DAILY@0700 [facility] Last Admin: 01/06/19 06:08 Dose: Not Given Methadone HCl (Dolophine -) 30 mg PO DAILY [facility] Methylnaltrexone [place] (Relistor -) 12 mg SQ Q2D@1000 [facility] Last Admin: 01/06/19 10:40 Dose: 12 mg Metoprolol Tartrate (Lopressor -) 50 mg PO BID [facility] Oxycodone HCl (Roxicodone -) 10 mg PO Q6H PRN PRN Reason: PAIN LEVEL 6-10 Last Admin: 01/06/19 13:11 Dose: 10 mg Pantoprazole Sodium (Protonix Packets For Oral Suspension -) 40 mg PO DAILY [facility] Last Admin: 01/06/19 09:14 Dose: 40 mg Polyethylene Glycol (Miralax (For Daily Use) -) 17 gm PO BID [facility] Last Admin: 01/06/19 09:38 Dose: 17 gm Fluticasone/Salmeterol (Advair 100mcg/50mcg -) 1 puff IH BID [facility] Last Admin: 01/06/19 09:21 Dose: Not Given Sertraline HCl (Zoloft -) 50 mg PO DAILY [facility] Last Admin: 01/06/19 09:13 Dose: 50 mg Tamsulosin HCl (Flomax -) 0.4 mg PO DAILY@0830 [facility] Last Admin: 01/06/19 09:13 Dose: 0.4 mg Tiotropium [place] (Spiriva Respimat) 2 puff IH DAILY [facility] Last Admin: 01/06/19 09:18 Dose: 2 puff Valacyclovir HCl (Valtrex -) 500 mg PO DAILY [facility] Last Admin: 01/06/19 09:13 Dose: 500 mg - Objective Vital Signs: Vital Signs Temperature 97.9 F 01/06/19 10:00 Pulse Rate 83 01/06/19 10:00 Respiratory Rate 20 01/06/19 10:00 Blood Pressure 126/73 01/06/19 10:00 O2 Sat by Pulse Oximetry (%) 95 01/06/19 09:00 Constitutional: Yes: Well Nourished, No Distress Eyes: Yes: Conjunctiva Clear, EOM Intact HENT: Yes: Atraumatic, Normocephalic Neck: Yes: Supple, Trachea Midline Cardiovascular: Yes: JVD Respiratory: Yes: Regular, Rales Gastrointestinal: Yes: Normal Bowel Sounds Edema: No Labs: CBC, BMP 01/06/19 07:00 01/06/19 07:00 INR, PTT INR 1.19 (0.83-1.09) H 01/01/19 16:40 Problem List - Problems (1) NSTEMI (non-ST elevated myocardial infarction) Code(s): I21.4 - NON-ST ELEVATION (NSTEMI) MYOCARDIAL INFARCTION Assessment/Plan 63 yo man with mult. mylemona, DM, CKD, recently discharged from inpatient- ( was in ICU intubated for pneumonia and respiratory failure) to rehab facility. He signed himself out of rehab this morning and took insulin sc dose and was later found to be obtunded and diaphoretic, shaky, glucometer was not readable. He was then brought to the hospital and received d50 IV, after which his mental status returned to baseline. Noted to have elevated TP level. Echocardiogram showed EF 45-50% without regional variability. Unchanged from echo done 11/2018. ECG with anterior wall T wave inversions. Flash pulmonary edema with NSTEMI. Managed medically. CP free and with improving heart failure symptoms. Significant net negative UO. Still volume overloaded. 1. CHF Volume up-improving. Continue IV lasix Monitor lytes. Consider eventually adding 2. [place]. Managed medically. CP free DC IV heparin and place on DVT prophylaxis. Continue with ASA, plavix and low dose bb Increase Metoprolol 50mg BID.
--- NOTE | 2019-01-06 17:04 | PN ---
Progress Note (short form) - Note Progress Note: covering dr herndon Problems 1. hyponatremia 2. CKD 3. hypoglycemia 4. htn 5. DM 6. 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 multiple myeloma 9. anemia 10. proteinuria 11. hyperkalemia 12. NSTEMI Current Medications Al Hydroxide/Mg Hydroxide (Mylanta Oral Suspension -) 30 ml PO Q6H PRN PRN Reason: INDIGESTION Last Admin: 01/04/19 08:08 Dose: 30 ml Artificial Tears (Artificial Tears Ointment -) 1 applic OD HS PRN PRN Reason: DRY EYES Aspirin (Asa -) 81 mg PO DAILY [facility] Last Admin: 01/06/19 09:13 Dose: 81 mg Atorvastatin Calcium (Lipitor -) 80 mg PO HS [facility] Last Admin: 01/05/19 21:23 Dose: 80 mg Buspirone HCl 10 mg/ Buspirone (HCl 5 mg) 15 mg PO BID [facility] Last Admin: 01/06/19 09:14 Dose: 15 mg Calcium Carbonate/Cholecalciferol (Os-Kyler 500+D -) 1 tab PO BID [facility] Last Admin: 01/06/19 09:13 Dose: 1 tab Clopidogrel Bisulfate (Plavix -) 75 mg PO DAILY [facility] Last Admin: 01/06/19 09:13 Dose: 75 mg Furosemide (Lasix Injection -) 40 mg IVPUSH BID@0600,1400 [facility] Last Admin: 01/06/19 13:05 Dose: 40 mg Heparin Sodium (Porcine) (Heparin -) 5,000 unit SQ BID [facility] Piperacillin Sod/Tazobactam (Sod 2.25 gm/ Dextrose) 50 mls @ 100 mls/hr IVPB Q8H-IV [facility]; Protocol Last Admin: 01/06/19 17:14 Dose: 100 mls/hr Insulin Aspart (Novolog Vial Sliding Scale -) 1 vial SQ ACHS [facility]; Protocol Last Admin: 01/06/19 17:14 Dose: Not Given Insulin Detemir (Levemir Vial) 10 units SQ DAILY@0700 [facility] Last Admin: 01/06/19 06:08 Dose: Not Given Methadone HCl (Dolophine -) 30 mg PO DAILY [facility] Methylnaltrexone [place] (Relistor -) 12 mg SQ Q2D@1000 [facility] Last Admin: 01/06/19 10:40 Dose: 12 mg Metoprolol Tartrate (Lopressor -) 50 mg PO BID [facility] Oxycodone HCl (Roxicodone -) 10 mg PO Q6H PRN PRN Reason: PAIN LEVEL 6-10 Last Admin: 01/06/19 13:11 Dose: 10 mg Pantoprazole Sodium (Protonix Packets For Oral Suspension -) 40 mg PO DAILY [facility] Last Admin: 01/06/19 09:14 Dose: 40 mg Polyethylene Glycol (Miralax (For Daily Use) -) 17 gm PO BID [facility] Last Admin: 01/06/19 09:38 Dose: 17 gm Fluticasone/Salmeterol (Advair 100mcg/50mcg -) 1 puff IH BID [facility] Last Admin: 01/06/19 09:21 Dose: Not Given Sertraline HCl (Zoloft -) 50 mg PO DAILY [facility] Last Admin: 01/06/19 09:13 Dose: 50 mg Tamsulosin HCl (Flomax -) 0.4 mg PO DAILY@0830 [facility] Last Admin: 01/06/19 09:13 Dose: 0.4 mg Tiotropium [place] (Spiriva Respimat) 2 puff IH DAILY [facility] Last Admin: 01/06/19 09:18 Dose: 2 puff Valacyclovir HCl (Valtrex -) 500 mg PO DAILY [facility] Last Admin: 01/06/19 09:13 Dose: 500 mg Last Vital Signs Temp Pulse Resp BP Pulse Ox 98.3 F 82 18 118/64 95 01/06/19 14:00 01/06/19 14:00 01/06/19 14:00 01/06/19 14:00 01/06/19 09:00 alert in nad Lungs clear heart reg Abd soft nontender ext no edema CBC, BMP 01/06/19 07:00 01/06/19 07:00 IMP- CKD ANEMIA Plan- monitore renal function and lytes
--- NOTE | 2019-01-06 20:04 | PN ---
Progress Note, Physician History of Present Illness: AWAKE, ALERT NO FOCAL COMPLAINT AFEBRILE WBC WNL URINE C/S PSEUDOMONAS - Current Medication List Current Medications: Active Medications Al Hydroxide/Mg Hydroxide (Mylanta Oral Suspension -) 30 ml PO Q6H PRN PRN Reason: INDIGESTION Last Admin: 01/04/19 08:08 Dose: 30 ml Artificial Tears (Artificial Tears Ointment -) 1 applic OD HS PRN PRN Reason: DRY EYES Aspirin (Asa -) 81 mg PO DAILY [facility] Last Admin: 01/06/19 09:13 Dose: 81 mg Atorvastatin Calcium (Lipitor -) 80 mg PO HS [facility] Last Admin: 01/05/19 21:23 Dose: 80 mg Buspirone HCl 10 mg/ Buspirone (HCl 5 mg) 15 mg PO BID [facility] Last Admin: 01/06/19 09:14 Dose: 15 mg Calcium Carbonate/Cholecalciferol (Os-Kyler 500+D -) 1 tab PO BID [facility] Last Admin: 01/06/19 09:13 Dose: 1 tab Clopidogrel Bisulfate (Plavix -) 75 mg PO DAILY [facility] Last Admin: 01/06/19 09:13 Dose: 75 mg Furosemide (Lasix Injection -) 40 mg IVPUSH BID@0600,1400 [facility] Last Admin: 01/06/19 13:05 Dose: 40 mg Heparin Sodium (Porcine) (Heparin -) 5,000 unit SQ BID [facility] Piperacillin Sod/Tazobactam (Sod 2.25 gm/ Dextrose) 50 mls @ 100 mls/hr IVPB Q8H-IV [facility]; Protocol Last Admin: 01/06/19 17:14 Dose: 100 mls/hr Insulin Aspart (Novolog Vial Sliding Scale -) 1 vial SQ ACHS [facility]; Protocol Last Admin: 01/06/19 17:14 Dose: Not Given Insulin Detemir (Levemir Vial) 10 units SQ DAILY@0700 [facility] Last Admin: 01/06/19 06:08 Dose: Not Given Methadone HCl (Dolophine -) 30 mg PO DAILY [facility] Methylnaltrexone [place] (Relistor -) 12 mg SQ Q2D@1000 [facility] Last Admin: 01/06/19 10:40 Dose: 12 mg Metoprolol Tartrate (Lopressor -) 50 mg PO BID [facility] Oxycodone HCl (Roxicodone -) 10 mg PO Q6H PRN PRN Reason: PAIN LEVEL 6-10 Last Admin: 01/06/19 13:11 Dose: 10 mg Pantoprazole Sodium (Protonix Packets For Oral Suspension -) 40 mg PO DAILY [facility] Last Admin: 01/06/19 09:14 Dose: 40 mg Polyethylene Glycol (Miralax (For Daily Use) -) 17 gm PO BID [facility] Last Admin: 01/06/19 09:38 Dose: 17 gm Fluticasone/Salmeterol (Advair 100mcg/50mcg -) 1 puff IH BID [facility] Last Admin: 01/06/19 09:21 Dose: Not Given Sertraline HCl (Zoloft -) 50 mg PO DAILY [facility] Last Admin: 01/06/19 09:13 Dose: 50 mg Tamsulosin HCl (Flomax -) 0.4 mg PO DAILY@0830 [facility] Last Admin: 01/06/19 09:13 Dose: 0.4 mg Tiotropium [place] (Spiriva Respimat) 2 puff [facility] DAILY [facility] Last Admin: 01/06/19 09:18 Dose: 2 puff Valacyclovir HCl (Valtrex -) 500 mg PO DAILY [facility] Last Admin: 01/06/19 09:13 Dose: 500 mg - Objective Vital Signs: Vital Signs Temperature 97.9 F 01/06/19 16:35 Pulse Rate 70 01/06/19 16:35 Respiratory Rate 18 01/06/19 16:35 Blood Pressure 114/67 01/06/19 16:35 O2 Sat by Pulse Oximetry (%) 95 01/06/19 09:00 Constitutional: Yes: No Distress Cardiovascular: Yes: Regular Rate and Rhythm, S1, S2 Respiratory: Yes: CTA Bilaterally Gastrointestinal: Yes: Normal Bowel Sounds, Soft Labs: CBC, BMP 01/06/19 07:00 01/06/19 07:00 INR, PTT INR 1.19 (0.83-1.09) H 01/01/19 16:40 Assessment/Plan UTI PSEUDOMONAS SYMPTOMATIC HYPOGLYCEMIA MYELOMA CONTINUE ZOSYN
--- NOTE | 2019-01-06 21:39 | PN ---
Progress Note, Physician Chief Complaint: comfortable no complaint History of Present Illness: dm2/htn/ashd/chf,multiple myeloma - Current Medication List Current Medications: Active Medications Al Hydroxide/Mg Hydroxide (Mylanta Oral Suspension -) 30 ml PO Q6H PRN PRN Reason: INDIGESTION Last Admin: 01/04/19 08:08 Dose: 30 ml Artificial Tears (Artificial Tears Ointment -) 1 applic OD HS PRN PRN Reason: DRY EYES Aspirin (Asa -) 81 mg PO DAILY [facility] Last Admin: 01/06/19 09:13 Dose: 81 mg Atorvastatin Calcium (Lipitor -) 80 mg PO HS [facility] Last Admin: 01/05/19 21:23 Dose: 80 mg Buspirone HCl 10 mg/ Buspirone (HCl 5 mg) 15 mg PO BID [facility] Last Admin: 01/06/19 09:14 Dose: 15 mg Calcium Carbonate/Cholecalciferol (Os-Kyler 500+D -) 1 tab PO BID [facility] Last Admin: 01/06/19 09:13 Dose: 1 tab Clopidogrel Bisulfate (Plavix -) 75 mg PO DAILY [facility] Last Admin: 01/06/19 09:13 Dose: 75 mg Furosemide (Lasix Injection -) 40 mg IVPUSH BID@0600,1400 [facility] Last Admin: 01/06/19 13:05 Dose: 40 mg Heparin Sodium (Porcine) (Heparin -) 5,000 unit SQ BID [facility] Piperacillin Sod/Tazobactam (Sod 2.25 gm/ Dextrose) 50 mls @ 100 mls/hr IVPB Q8H-IV [facility]; Protocol Last Admin: 01/06/19 17:14 Dose: 100 mls/hr Insulin Aspart (Novolog Vial Sliding Scale -) 1 vial SQ ACHS [facility]; Protocol Last Admin: 01/06/19 17:14 Dose: Not Given Insulin Detemir (Levemir Vial) 10 units SQ DAILY@0700 [facility] Last Admin: 01/06/19 06:08 Dose: Not Given Methadone HCl (Dolophine -) 30 mg PO DAILY [facility] Methylnaltrexone [place] (Relistor -) 12 mg SQ Q2D@1000 [facility] Last Admin: 01/06/19 10:40 Dose: 12 mg Metoprolol Tartrate (Lopressor -) 50 mg PO BID [facility] Oxycodone HCl (Roxicodone -) 10 mg PO Q6H PRN PRN Reason: PAIN LEVEL 6-10 Last Admin: 01/06/19 13:11 Dose: 10 mg Pantoprazole Sodium (Protonix Packets For Oral Suspension -) 40 mg PO DAILY [facility] Last Admin: 01/06/19 09:14 Dose: 40 mg Polyethylene Glycol (Miralax (For Daily Use) -) 17 gm PO BID [facility] Last Admin: 01/06/19 09:38 Dose: 17 gm Fluticasone/Salmeterol (Advair 100mcg/50mcg -) 1 puff IH BID [facility] Last Admin: 01/06/19 09:21 Dose: Not Given Sertraline HCl (Zoloft -) 50 mg PO DAILY [facility] Last Admin: 01/06/19 09:13 Dose: 50 mg Tamsulosin HCl (Flomax -) 0.4 mg PO DAILY@0830 [facility] Last Admin: 01/06/19 09:13 Dose: 0.4 mg Tiotropium [place] (Spiriva Respimat) 2 puff IH DAILY [facility] Last Admin: 01/06/19 09:18 Dose: 2 puff Valacyclovir HCl (Valtrex -) 500 mg PO DAILY [facility] Last Admin: 01/06/19 09:13 Dose: 500 mg - Objective Vital Signs: Vital Signs Temperature 97.9 F 01/06/19 16:35 Pulse Rate 70 01/06/19 16:35 Respiratory Rate 18 01/06/19 16:35 Blood Pressure 114/67 01/06/19 16:35 O2 Sat by Pulse Oximetry (%) 95 01/06/19 09:00 Constitutional: Yes: Calm Eyes: Yes: EOM Intact HENT: Yes: Normocephalic Neck: Yes: Trachea Midline Respiratory: Yes: CTA Bilaterally Gastrointestinal: Yes: Normal Bowel Sounds ...Rectal Exam: Yes: Deferred Musculoskeletal: Yes: Back Pain, Muscle Weakness Edema: No Neurological: Yes: Alert, Oriented Labs: CBC, BMP 01/06/19 07:00 01/06/19 07:00 INR, PTT INR 1.19 (0.83-1.09) H 01/01/19 16:40 Problem List - Problems (1) Acute metabolic encephalopathy Code(s): G93.41 - METABOLIC ENCEPHALOPATHY (2) Constipation Code(s): K59.00 - CONSTIPATION, UNSPECIFIED (3) Elevated troponin Code(s): R74.8 - ABNORMAL LEVELS OF OTHER SERUM ENZYMES (4) Hypoglycemia Code(s): E16.2 - HYPOGLYCEMIA, UNSPECIFIED (5) Hypoglycemia due to insulin Code(s): E16.0 - DRUG-INDUCED HYPOGLYCEMIA WITHOUT COMA; T38.3X5A - ADVERSE EFFECT OF INSULIN AND ORAL HYPOGLYCEMIC DRUGS, INIT (6) Tachycardia Code(s): R00.0 - TACHYCARDIA, UNSPECIFIED (7) UTI (urinary tract infection) Code(s): N39.0 - URINARY TRACT INFECTION, SITE NOT SPECIFIED Assessment/Plan Current Active Problems Acute metabolic encephalopathy (Acute) Constipation (Acute) Elevated troponin (Acute) History of GI bleed (Acute) Hypoglycemia (Acute) Hypoglycemia due to insulin (Acute) NSTEMI (non-ST elevated myocardial infarction) (Acute) Respiratory distress (Acute) Substance abuse (Acute) Tachycardia (Acute) UTI (urinary tract infection) (Acute) Abnormal Lab Results 01/02/19 01/06/19 01/06/19 10:10 07:00 07:00 RBC 2.62 L Hgb 7.6 L Hct 23.4 L RDW 19.0 H PTT (Actin FS) 47.3 H BUN Creatinine Random Glucose Calcium Troponin I Total Protein Albumin Ur Free Cortisol 24 Hr 182 H 01/06/19 07:00 RBC Hgb Hct RDW PTT (Actin FS) BUN 25 H Creatinine 1.5 H Random Glucose 159 H Calcium 7.9 L Troponin I 6.55 H* Total Protein 5.5 L Albumin 2.3 L Ur Free Cortisol 24 Hr Laboratory Results - last 24 hr 01/02/19 01/06/19 01/06/19 10:10 05:30 07:00 WBC RBC Hgb Hct MCV MCH MCHC RDW Plt Count MPV Absolute Neuts (auto) Neutrophils % Lymphocytes % Monocytes % Eosinophils % Basophils % Nucleated RBC % PTT (Actin FS) 47.3 H Sodium Potassium Chloride Carbon Dioxide Anion Gap BUN Creatinine Creat Clearance w eGFR POC Glucometer 146 Random Glucose Calcium Total Bilirubin AST ALT Alkaline Phosphatase Creatine Kinase Troponin I Total Protein Albumin Ur Free Cortisol 24 Hr 182 H Stool Occult Blood 01/06/19 01/06/19 01/06/19 07:00 07:00 10:36 WBC 5.4 RBC 2.62 L Hgb 7.6 L Hct 23.4 L MCV 89.0 MCH 29.1 MCHC 32.7 RDW 19.0 H Plt Count 176 MPV 7.8 Absolute Neuts (auto) 4.3 Neutrophils % 79.4 Lymphocytes % 14.0 D Monocytes % 4.2 Eosinophils % 1.9 D Basophils % 0.5 Nucleated RBC % 0 PTT (Actin FS) Sodium 139 Potassium 4.3 Chloride 104 Carbon Dioxide 26 Anion Gap 9 BUN 25 H Creatinine 1.5 H Creat Clearance w eGFR 46.97 POC Glucometer 200 Random Glucose 159 H Calcium 7.9 L Total Bilirubin 0.2 AST 37 ALT 22 Alkaline Phosphatase 79 Creatine Kinase 70 Troponin I 6.55 H* Total Protein 5.5 L Albumin 2.3 L Ur Free Cortisol 24 Hr Stool Occult Blood 01/06/19 01/06/19 01/06/19 11:00 12:14 13:48 WBC RBC Hgb Hct MCV MCH MCHC RDW Plt Count MPV Absolute Neuts (auto) Neutrophils % Lymphocytes % Monocytes % Eosinophils % Basophils % Nucleated RBC % PTT (Actin FS) Sodium Potassium Chloride Carbon Dioxide Anion Gap BUN Creatinine Creat Clearance w eGFR POC Glucometer 138 126 Random Glucose Calcium Total Bilirubin AST ALT Alkaline Phosphatase Creatine Kinase Troponin I Total Protein Albumin Ur Free Cortisol 24 Hr Stool Occult Blood Negative 01/06/19 17:13 WBC RBC Hgb Hct MCV MCH MCHC RDW Plt Count MPV Absolute Neuts (auto) Neutrophils % Lymphocytes % Monocytes % Eosinophils % Basophils % Nucleated RBC % PTT (Actin FS) Sodium Potassium Chloride Carbon Dioxide Anion Gap BUN Creatinine Creat Clearance w eGFR POC Glucometer 126 Random Glucose Calcium Total Bilirubin AST ALT Alkaline Phosphatase Creatine Kinase Troponin I Total Protein Albumin Ur Free Cortisol 24 Hr Stool Occult Blood plan: levemir lower dose 10 units am bgm achs novolog dose as apetite improves will need higher doses Laboratory Tests 01/06/19 01/06/19 01/06/19 12:14 13:48 17:13 POC Glucometer 138 126 126
[2019-01-06] MEDS: ATORVASTATIN CA 80 MG TABLET (FP) PO SCH (21:42)
[2019-01-06] MEDS: HEPARIN NA (PORCINE) 5,000 UNITS/ML 1ML VIAL SQ SCH (21:42)
[2019-01-06] MEDS: METOPROLOL TARTRATE 50 MG TABLET (FP) PO SCH (21:42)
[2019-01-07] MEDS ORDERED: DEXTROSE 5%-WATER - 50 ML IVPB ONE ×3 (01:25→17:45)
[2019-01-07] MEDS ORDERED: PIPERACILLIN/TAZOBACTAM 2.25 GM VIAL IVPB ONE ×3 (01:25→17:44)
[2019-01-07] MEDS: PIPERACILLIN/TAZOB 2.25 GM 2.25 GM in DEXTROSE 5%-WATER - 50 ML IVPB SCH ×3 (01:31→18:49)
[2019-01-07] MEDS: INSULIN (LEVEMIR) 100 UNITS/ML UNITS SQ SCH (06:25)
[2019-01-07] MEDS: INSULIN SLIDING SCALE (NOVOLOG) 1 VIAL SQ SCH ×4 (06:25→21:21)
[2019-01-07] MEDS: FUROSEMIDE 40 MG/4 ML INJECTABLE VIAL IVPUSH SCH ×2 (06:25→15:51)
[2019-01-07 07:35] LABS: HEMATOCRIT 21.7 % (35.4-49); MCH 28.7 pg (25.7-33.7); MCHC 32.2 g/dl (32.0-35.9); MEAN PLT VOLUME 8.1 fl (7.5-11.1); PLATELET COUNT 172 K/MM3 (134-434); RBC 2.44 M/mm3 (4.00-5.60); RDW 18.8 % (11.9-15.9); WHITE BLOOD COUNT 4.6 K/mm3 (4.0-10.0)
[2019-01-07] MEDS ORDERED: PT OWN MED DRAWER 7, Y5N ONE ×3 (10:02→21:17)
[2019-01-07] MEDS: METHADONE HCL 10 MG TABLET PO SCH (10:12)
[2019-01-07] MEDS: valACYclovir HCL 500 MG TABLET (FP) PO SCH (10:13)
[2019-01-07] MEDS: CALCIUM 500MG/VIT-D 200 UNITS COMBO TABLET (FP) PO SCH ×2 (10:13→21:20)
[2019-01-07] MEDS: TAMSULOSIN HCL 0.4 MG CAP PO SCH (10:13)
[2019-01-07] MEDS: ASPIRIN 81 MG CHEWABLE TABLETS PO SCH (10:14)
[2019-01-07] MEDS: CLOPIDOGREL BISULFATE 75 MG TABLET (FP) PO SCH (10:14)
[2019-01-07] MEDS: SERTRALINE HCL 50 MG TABLET (FP) PO SCH (10:14)
[2019-01-07] MEDS: METOPROLOL TARTRATE 50 MG TABLET (FP) PO SCH ×2 (10:14→21:21)
[2019-01-07] MEDS: BUSPIRONE HCL 10 MG, BUSPIRONE HCL 5 MG PO SCH ×2 (10:15→21:21)
[2019-01-07] MEDS: PANTOPRAZOLE SOD 40 MG SUSPENSION PACKET PO SCH (10:15)
[2019-01-07] MEDS: TIOTROPIUM BROMIDE 2.5 MCG (SPIRIVA) RESPIMAT INHALER IH SCH (10:23)
[2019-01-07] MEDS: HEPARIN NA (PORCINE) 5,000 UNITS/ML 1ML VIAL SQ SCH ×2 (10:30→21:22)
[2019-01-07] MEDS: FLUTICASONE/SALMETEROL 100 MCG/50 MCG DISKUS IH SCH ×2 (10:31→21:22)
[2019-01-07] MEDS: POLYETHYLENE GLYCOL 3350 119 GM BTL PO SCH ×2 (10:50→21:21)
--- NOTE | 2019-01-07 12:32 | PN ---
Progress Note, Physician - Current Medication List Current Medications: Active Medications Al Hydroxide/Mg Hydroxide (Mylanta Oral Suspension -) 30 ml PO Q6H PRN PRN Reason: INDIGESTION Last Admin: 01/04/19 08:08 Dose: 30 ml Artificial Tears (Artificial Tears Ointment -) 1 applic OD HS PRN PRN Reason: DRY EYES Aspirin (Asa -) 81 mg PO DAILY [facility] Last Admin: 01/07/19 10:14 Dose: 81 mg Atorvastatin Calcium (Lipitor -) 80 mg PO HS [facility] Last Admin: 01/06/19 21:42 Dose: 80 mg Buspirone HCl 10 mg/ Buspirone (HCl 5 mg) 15 mg PO BID [facility] Last Admin: 01/07/19 10:15 Dose: 15 mg Calcium Carbonate/Cholecalciferol (Os-Kyler 500+D -) 1 tab PO BID [facility] Last Admin: 01/07/19 10:13 Dose: 1 tab Clopidogrel Bisulfate (Plavix -) 75 mg PO DAILY [facility] Last Admin: 01/07/19 10:14 Dose: 75 mg Furosemide (Lasix Injection -) 40 mg IVPUSH BID@0600,1400 [facility] Last Admin: 01/07/19 06:25 Dose: 40 mg Heparin Sodium (Porcine) (Heparin -) 5,000 unit SQ BID [facility] Last Admin: 01/07/19 10:30 Dose: 5,000 unit Piperacillin Sod/Tazobactam (Sod 2.25 gm/ Dextrose) 50 mls @ 100 mls/hr IVPB Q8H-IV [facility]; Protocol Last Admin: 01/07/19 10:17 Dose: 100 mls/hr Insulin Aspart (Novolog Vial Sliding Scale -) 1 vial SQ ACHS [facility]; Protocol Last Admin: 01/07/19 11:49 Dose: 2 unit Insulin Detemir (Levemir Vial) 10 units SQ DAILY@0700 [facility] Last Admin: 01/07/19 06:25 Dose: Not Given Methadone HCl (Dolophine -) 30 mg PO DAILY [facility] Last Admin: 01/07/19 10:12 Dose: 30 mg Methylnaltrexone [place] (Relistor -) 12 mg SQ Q2D@1000 [facility] Last Admin: 01/06/19 10:40 Dose: 12 mg Metoprolol Tartrate (Lopressor -) 50 mg PO BID [facility] Last Admin: 01/07/19 10:14 Dose: 50 mg Pantoprazole Sodium (Protonix Packets For Oral Suspension -) 40 mg PO DAILY [facility] Last Admin: 01/07/19 10:15 Dose: 40 mg Polyethylene Glycol (Miralax (For Daily Use) -) 17 gm PO BID [facility] Last Admin: 01/07/19 10:50 Dose: Not Given Fluticasone/Salmeterol (Advair 100mcg/50mcg -) 1 puff IH BID [facility] Last Admin: 01/07/19 10:31 Dose: Not Given Sertraline HCl (Zoloft -) 50 mg PO DAILY [facility] Last Admin: 01/07/19 10:14 Dose: 50 mg Tamsulosin HCl (Flomax -) 0.4 mg PO DAILY@0830 [facility] Last Admin: 01/07/19 10:13 Dose: 0.4 mg Tiotropium [place] (Spiriva Respimat) 2 puff IH DAILY [facility] Last Admin: 01/07/19 10:23 Dose: 2 puff Valacyclovir HCl (Valtrex -) 500 mg PO DAILY [facility] Last Admin: 01/07/19 10:13 Dose: 500 mg - Objective Vital Signs: Vital Signs Temperature 98 F 01/07/19 10:00 Pulse Rate 74 01/07/19 10:00 Respiratory Rate 18 01/07/19 10:00 Blood Pressure 101/54 L 01/07/19 10:00 O2 Sat by Pulse Oximetry (%) 95 01/07/19 09:00 Cardiovascular: Yes: S1, S2 Respiratory: Yes: Regular, CTA Bilaterally Gastrointestinal: Yes: Normal Bowel Sounds, Soft Labs: CBC, BMP 01/07/19 06:00 01/06/19 07:00 INR, PTT INR 1.19 (0.83-1.09) H 01/01/19 16:40 Problem List - Problems (1) Tachycardia Code(s): R00.0 - TACHYCARDIA, UNSPECIFIED (2) Elevated troponin Code(s): R74.8 - ABNORMAL LEVELS OF OTHER SERUM ENZYMES (3) Hypoglycemia Code(s): E16.2 - HYPOGLYCEMIA, UNSPECIFIED (4) NSTEMI (non-ST elevated myocardial infarction) Code(s): I21.4 - NON-ST ELEVATION (NSTEMI) MYOCARDIAL INFARCTION (5) Respiratory distress Code(s): R06.03 - ACUTE RESPIRATORY DISTRESS (6) Substance abuse Code(s): F19.10 - OTHER PSYCHOACTIVE SUBSTANCE ABUSE, UNCOMPLICATED (7) UTI (urinary tract infection) Code(s): N39.0 - URINARY TRACT INFECTION, SITE NOT SPECIFIED Assessment/Plan Problems (1) Hypoglycemia monitor bgm endo appreciated Code(s): E16.2 - HYPOGLYCEMIA, UNSPECIFIED (2) Elevated troponin Assessment/Plan: telemetry cardiology trend troponin asprin lipitor Code(s): R74.8 - ABNORMAL LEVELS OF OTHER SERUM ENZYMES (3) Narcotic dependence Assessment/Plan: prior IVDA methadone 30 his bottle of methadone is at [facility] Code(s): F11.20 - OPIOID DEPENDENCE, UNCOMPLICATED (4) Constipation Assessment/Plan: relistor Code(s): K59.00 - CONSTIPATION, UNSPECIFIED (5) CKD (chronic kidney disease) Assessment/Plan: renal folow up Code(s): N18.9 - CHRONIC KIDNEY DISEASE, UNSPECIFIED (6) Anemia Assessment/Plan: Multiple myloma heme on board check stool occult blodd if h/h less 7 will transfuse Code(s): D64.9 - ANEMIA, UNSPECIFIED (7) Respiratory distress Assessment/Plan: iv lasix bid cxr improving nasal oxygen Code(s): R06.03 - ACUTE RESPIRATORY DISTRESS
--- NOTE | 2019-01-07 12:47 | PN ---
Progress Note, Physician History of Present Illness: Renal f/u Pt in no distress and without any complaints Eating his lunch Last renal labs 01/06 Today's Hgb decreased to 7.0 - Current Medication List Current Medications: Active Medications Al Hydroxide/Mg Hydroxide (Mylanta Oral Suspension -) 30 ml PO Q6H PRN PRN Reason: INDIGESTION Last Admin: 01/04/19 08:08 Dose: 30 ml Artificial Tears (Artificial Tears Ointment -) 1 applic OD HS PRN PRN Reason: DRY EYES Aspirin (Asa -) 81 mg PO DAILY [facility] Last Admin: 01/07/19 10:14 Dose: 81 mg Atorvastatin Calcium (Lipitor -) 80 mg PO HS [facility] Last Admin: 01/06/19 21:42 Dose: 80 mg Buspirone HCl 10 mg/ Buspirone (HCl 5 mg) 15 mg PO BID [facility] Last Admin: 01/07/19 10:15 Dose: 15 mg Calcium Carbonate/Cholecalciferol (Os-Kyler 500+D -) 1 tab PO BID [facility] Last Admin: 01/07/19 10:13 Dose: 1 tab Clopidogrel Bisulfate (Plavix -) 75 mg PO DAILY [facility] Last Admin: 01/07/19 10:14 Dose: 75 mg Furosemide (Lasix Injection -) 40 mg IVPUSH BID@0600,1400 [facility] Last Admin: 01/07/19 06:25 Dose: 40 mg Heparin Sodium (Porcine) (Heparin -) 5,000 unit SQ BID [facility] Last Admin: 01/07/19 10:30 Dose: 5,000 unit Piperacillin Sod/Tazobactam (Sod 2.25 gm/ Dextrose) 50 mls @ 100 mls/hr IVPB Q8H-IV [facility]; Protocol Last Admin: 01/07/19 10:17 Dose: 100 mls/hr Insulin Aspart (Novolog Vial Sliding Scale -) 1 vial SQ ACHS [facility]; Protocol Last Admin: 01/07/19 11:49 Dose: 2 unit Insulin Detemir (Levemir Vial) 10 units SQ DAILY@0700 [facility] Last Admin: 01/07/19 06:25 Dose: Not Given Methadone HCl (Dolophine -) 30 mg PO DAILY [facility] Last Admin: 01/07/19 10:12 Dose: [address] (Relistor -) 12 mg SQ Q2D@1000 [facility] Last Admin: 01/06/19 10:40 Dose: 12 mg Metoprolol Tartrate (Lopressor -) 50 mg PO BID [facility] Last Admin: 01/07/19 10:14 Dose: 50 mg Pantoprazole Sodium (Protonix Packets For Oral Suspension -) 40 mg PO DAILY [facility] Last Admin: 01/07/19 10:15 Dose: 40 mg Polyethylene Glycol (Miralax (For Daily Use) -) 17 gm PO BID [facility] Last Admin: 01/07/19 10:50 Dose: Not Given Fluticasone/Salmeterol (Advair 100mcg/50mcg -) 1 puff IH BID [facility] Last Admin: 01/07/19 10:31 Dose: Not Given Sertraline HCl (Zoloft -) 50 mg PO DAILY [facility] Last Admin: 01/07/19 10:14 Dose: 50 mg Tamsulosin HCl (Flomax -) 0.4 mg PO DAILY@0830 [facility] Last Admin: 01/07/19 10:13 Dose: 0.[address] (Spiriva Respimat) 2 puff IH DAILY [facility] Last Admin: 01/07/19 10:23 Dose: 2 puff Valacyclovir HCl (Valtrex -) 500 mg PO DAILY [facility] Last Admin: 01/07/19 10:13 Dose: 500 mg - Objective Vital Signs: Vital Signs Temperature 98 F 01/07/19 10:00 Pulse Rate 74 01/07/19 10:00 Respiratory Rate 18 01/07/19 10:00 Blood Pressure 101/54 L 01/07/19 10:00 O2 Sat by Pulse Oximetry (%) 95 01/07/19 09:00 Constitutional: Yes: No Distress Cardiovascular: Yes: S1, S2 Respiratory: Yes: CTA Bilaterally Gastrointestinal: Yes: Soft. No: Tenderness, Rebound Edema: No Labs: CBC, BMP 01/07/19 06:00 01/06/19 07:00 INR, PTT INR 1.19 (0.83-1.09) H 01/01/19 16:40 Assessment/Plan Impression 1. S/P hyponatremia 2. CKD 3. S/P hypoglycemia 4. htn 5. DM 6. 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 multiple myeloma 9. anemia 10. proteinuria 11. S/P hyperkalemia 12.Lung infiltrate on CXR Plan - Consider PRBCs if Hgb continues to decrease and r/o GI blood loss - Abx - lasix as ordered for now - Rpt BMP in am - Avoid nsaids and other nephrotoxic agents Dr Benítez
[2019-01-07] MEDS ORDERED: FUROSEMIDE 40 MG/4 ML INJECTABLE VIAL IVPUSH ONE (13:20)
[2019-01-07] MEDS: oxyCODONE HCL 5 MG TABLET PO PRN (16:50)
--- NOTE | 2019-01-07 19:13 | PN ---
Progress Note, Physician Chief Complaint: AMS History of Present Illness: Feels well currently. No complaints. - Current Medication List Current Medications: Active Medications Al Hydroxide/Mg Hydroxide (Mylanta Oral Suspension -) 30 ml PO Q6H PRN PRN Reason: INDIGESTION Last Admin: 01/04/19 08:08 Dose: 30 ml Artificial Tears (Artificial Tears Ointment -) 1 applic OD HS PRN PRN Reason: DRY EYES Aspirin (Asa -) 81 mg PO DAILY [facility] Last Admin: 01/07/19 10:14 Dose: 81 mg Atorvastatin Calcium (Lipitor -) 80 mg PO HS [facility] Last Admin: 01/06/19 21:42 Dose: 80 mg Buspirone HCl 10 mg/ Buspirone (HCl 5 mg) 15 mg PO BID [facility] Last Admin: 01/07/19 10:15 Dose: 15 mg Calcium Carbonate/Cholecalciferol (Os-Kyler 500+D -) 1 tab PO BID [facility] Last Admin: 01/07/19 10:13 Dose: 1 tab Clopidogrel Bisulfate (Plavix -) 75 mg PO DAILY [facility] Last Admin: 01/07/19 10:14 Dose: 75 mg Furosemide (Lasix Injection -) 40 mg IVPUSH BID@0600,1400 [facility] Last Admin: 01/07/19 15:51 Dose: 40 mg Heparin Sodium (Porcine) (Heparin -) 5,000 unit SQ BID [facility] Last Admin: 01/07/19 10:30 Dose: 5,000 unit Piperacillin Sod/Tazobactam (Sod 2.25 gm/ Dextrose) 50 mls @ 100 mls/hr IVPB Q8H-IV [facility]; Protocol Last Admin: 01/07/19 18:49 Dose: 100 mls/hr Insulin Aspart (Novolog Vial Sliding Scale -) 1 vial SQ ACHS [facility]; Protocol Last Admin: 01/07/19 17:23 Dose: Not Given Insulin Detemir (Levemir Vial) 10 units SQ DAILY@0700 [facility] Last Admin: 01/07/19 06:25 Dose: Not Given Methadone HCl (Dolophine -) 30 mg PO DAILY [facility] Last Admin: 01/07/19 10:12 Dose: 30 mg Methylnaltrexone [place] (Relistor -) 12 mg SQ Q2D@1000 [facility] Last Admin: 01/06/19 10:40 Dose: 12 mg Metoprolol Tartrate (Lopressor -) 50 mg PO BID [facility] Last Admin: 01/07/19 10:14 Dose: 50 mg Oxycodone HCl (Roxicodone -) 10 mg PO Q6H PRN PRN Reason: PAIN LEVEL 6-10 Last Admin: 01/07/19 16:50 Dose: 10 mg Pantoprazole Sodium (Protonix Packets For Oral Suspension -) 40 mg PO DAILY [facility] Last Admin: 01/07/19 10:15 Dose: 40 mg Polyethylene Glycol (Miralax (For Daily Use) -) 17 gm PO BID [facility] Last Admin: 01/07/19 10:50 Dose: Not Given Fluticasone/Salmeterol (Advair 100mcg/50mcg -) 1 puff IH BID [facility] Last Admin: 01/07/19 10:31 Dose: Not Given Sertraline HCl (Zoloft -) 50 mg PO DAILY [facility] Last Admin: 01/07/19 10:14 Dose: 50 mg Tamsulosin HCl (Flomax -) 0.4 mg PO DAILY@0830 [facility] Last Admin: 01/07/19 10:13 Dose: 0.4 mg Tiotropium [place] (Spiriva Respimat) 2 puff IH DAILY [facility] Last Admin: 01/07/19 10:23 Dose: 2 puff Valacyclovir HCl (Valtrex -) 500 mg PO DAILY [facility] Last Admin: 01/07/19 10:13 Dose: 500 mg - Objective Vital Signs: Vital Signs Temperature 98.9 F 01/07/19 14:25 Pulse Rate 65 01/07/19 14:25 Respiratory Rate 20 01/07/19 14:25 Blood Pressure 171/56 H 01/07/19 14:25 O2 Sat by Pulse Oximetry (%) 95 01/07/19 09:00 Constitutional: Yes: Well Nourished, No Distress Eyes: Yes: Conjunctiva Clear Cardiovascular: Yes: Regular Rate and Rhythm Respiratory: Yes: WNL, Regular Gastrointestinal: Yes: Normal Bowel Sounds, Soft Extremities: Yes: WNL, Other (hyperpigementation) Edema: No Labs: CBC, BMP 01/07/19 06:00 01/06/19 07:00 INR, PTT INR 1.19 (0.83-1.09) H 01/01/19 16:40 Assessment/Plan 63M with hx 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 myeloma, on first line velcade/ cytoxan/dex interrupted by recent admission for respiratory failure now admitted with AMS 2/2 hypoglycemia due to insulin overdose (after signing himself out of rehab). Mental status now at baseline. Plan to resume outpatient therapy, likely with revlimid based regimen.
[2019-01-07] MEDS: ATORVASTATIN CA 80 MG TABLET (FP) PO SCH (21:20)
[2019-01-08] MEDS: oxyCODONE HCL 5 MG TABLET PO PRN ×4 (00:06→20:02)
[2019-01-08] MEDS ORDERED: PIPERACILLIN/TAZOBACTAM 2.25 GM VIAL IVPB ONE ×3 (01:19→17:22)
[2019-01-08] MEDS ORDERED: DEXTROSE 5%-WATER - 50 ML IVPB ONE ×3 (01:20→17:22)
[2019-01-08] MEDS: PIPERACILLIN/TAZOB 2.25 GM 2.25 GM in DEXTROSE 5%-WATER - 50 ML IVPB SCH ×3 (02:01→18:02)
[2019-01-08] MEDS: FUROSEMIDE 40 MG/4 ML INJECTABLE VIAL IVPUSH SCH ×2 (06:02→13:33)
[2019-01-08] MEDS: INSULIN SLIDING SCALE (NOVOLOG) 1 VIAL SQ SCH ×4 (06:03→23:45)
[2019-01-08] MEDS: INSULIN (LEVEMIR) 100 UNITS/ML UNITS SQ SCH (06:07)
[2019-01-08 06:59] LABS: BASO % 0.5 % (0-2.0); EOS % 1.3 % (0-4.5); HEMATOCRIT 30.6 % (35.4-49); HEMOGLOBIN 10.2 GM/dL (11.7-16.9); LYMPH % 20.1 % (8-40); MCH 29.4 pg (25.7-33.7); MCHC 33.3 g/dl (32.0-35.9); MEAN CELL VOLUME 88.1 fl (80-96); MEAN PLT VOLUME 8.2 fl (7.5-11.1); MONO % 4.8 % (3.8-10.2); NEUT % 73.3 % (42.8-82.8); PLATELET COUNT 198 K/MM3 (134-434); RBC 3.48 M/mm3 (4.00-5.60); RDW 17.2 % (11.9-15.9); WHITE BLOOD COUNT 5.5 K/mm3 (4.0-10.0)
[2019-01-08 07:17] LABS: ALBUMIN 2.6 g/dl (3.4-5.0); ALK PHOS 82 U/L (45-117); ANION GAP 7 MMOL/L (8-16); BILIRUBIN,TOTAL 0.7 mg/dL (0.2-1); BLOOD UREA NITROGEN 25 mg/dL (7-18); CHLORIDE 102 mmol/L (98-107); CO2 32 mmol/L (21-32); CREATININE 1.5 mg/dL (0.55-1.3); GLUCOSE,RANDOM 118 mg/dL (74-106); POTASSIUM 3.8 mmol/L (3.5-5.1); SGOT/AST 23 U/L (15-37); SGPT/ALT 18 U/L (13-61); SODIUM 140 mmol/L (136-145); TOT PROT 5.9 g/dl (6.4-8.2)
[2019-01-08] MEDS ORDERED: PT OWN MED DRAWER 7, Y5N ONE ×2 (08:43→14:59)
[2019-01-08] MEDS: SERTRALINE HCL 50 MG TABLET (FP) PO SCH (09:10)
[2019-01-08] MEDS: ASPIRIN 81 MG CHEWABLE TABLETS PO SCH (09:10)
[2019-01-08] MEDS: valACYclovir HCL 500 MG TABLET (FP) PO SCH (09:10)
[2019-01-08] MEDS: PANTOPRAZOLE SOD 40 MG SUSPENSION PACKET PO SCH (09:10)
[2019-01-08] MEDS: CALCIUM 500MG/VIT-D 200 UNITS COMBO TABLET (FP) PO SCH ×2 (09:11→23:41)
[2019-01-08] MEDS: CLOPIDOGREL BISULFATE 75 MG TABLET (FP) PO SCH (09:11)
[2019-01-08] MEDS: TAMSULOSIN HCL 0.4 MG CAP PO SCH (09:11)
[2019-01-08] MEDS: METOPROLOL TARTRATE 50 MG TABLET (FP) PO SCH ×2 (09:11→23:41)
[2019-01-08] MEDS: METHADONE HCL 10 MG TABLET PO SCH (09:11)
[2019-01-08] MEDS: BUSPIRONE HCL 10 MG, BUSPIRONE HCL 5 MG PO SCH ×3 (09:13→23:43)
[2019-01-08] MEDS: HEPARIN NA (PORCINE) 5,000 UNITS/ML 1ML VIAL SQ SCH ×2 (09:13→23:43)
[2019-01-08] MEDS: POLYETHYLENE GLYCOL 3350 119 GM BTL PO SCH ×2 (09:16→23:45)
[2019-01-08] MEDS: FLUTICASONE/SALMETEROL 100 MCG/50 MCG DISKUS IH SCH ×2 (09:17→23:44)
[2019-01-08] MEDS: TIOTROPIUM BROMIDE 2.5 MCG (SPIRIVA) RESPIMAT INHALER IH SCH (09:18)
--- NOTE | 2019-01-08 10:52 | PN ---
Progress Note, Physician - Current Medication List Current Medications: Active Medications Al Hydroxide/Mg Hydroxide (Mylanta Oral Suspension -) 30 ml PO Q6H PRN PRN Reason: INDIGESTION Last Admin: 01/04/19 08:08 Dose: 30 ml Artificial Tears (Artificial Tears Ointment -) 1 applic OD HS PRN PRN Reason: DRY EYES Aspirin (Asa -) 81 mg PO DAILY [facility] Last Admin: 01/08/19 09:10 Dose: 81 mg Atorvastatin Calcium (Lipitor -) 80 mg PO HS [facility] Last Admin: 01/07/19 21:20 Dose: 80 mg Buspirone HCl 10 mg/ Buspirone (HCl 5 mg) 15 mg PO BID [facility] Last Admin: 01/08/19 09:13 Dose: Not Given Calcium Carbonate/Cholecalciferol (Os-Kyler 500+D -) 1 tab PO BID [facility] Last Admin: 01/08/19 09:11 Dose: 1 tab Clopidogrel Bisulfate (Plavix -) 75 mg PO DAILY [facility] Last Admin: 01/08/19 09:11 Dose: 75 mg Furosemide (Lasix Injection -) 40 mg IVPUSH BID@0600,1400 [facility] Last Admin: 01/08/19 06:02 Dose: 40 mg Heparin Sodium (Porcine) (Heparin -) 5,000 unit SQ BID [facility] Last Admin: 01/08/19 09:13 Dose: 5,000 unit Piperacillin Sod/Tazobactam (Sod 2.25 gm/ Dextrose) 50 mls @ 100 mls/hr IVPB Q8H-IV [facility]; Protocol Last Admin: 01/08/19 09:18 Dose: 100 mls/hr Insulin Aspart (Novolog Vial Sliding Scale -) 1 vial SQ ACHS [facility]; Protocol Last Admin: 01/08/19 06:03 Dose: Not Given Insulin Detemir (Levemir Vial) 10 units SQ DAILY@0700 [facility] Last Admin: 01/08/19 06:07 Dose: 10 units Methadone HCl (Dolophine -) 30 mg PO DAILY [facility] Last Admin: 01/08/19 09:11 Dose: 30 mg Methylnaltrexone [place] (Relistor -) 12 mg SQ Q2D@1000 [facility] Last Admin: 01/06/19 10:40 Dose: 12 mg Metoprolol Tartrate (Lopressor -) 50 mg PO BID [facility] Last Admin: 01/08/19 09:11 Dose: 50 mg Oxycodone HCl (Roxicodone -) 10 mg PO Q6H PRN PRN Reason: PAIN LEVEL 6-10 Last Admin: 01/08/19 06:02 Dose: 10 mg Pantoprazole Sodium (Protonix Packets For Oral Suspension -) 40 mg PO DAILY [facility] Last Admin: 01/08/19 09:10 Dose: 40 mg Polyethylene Glycol (Miralax (For Daily Use) -) 17 gm PO BID [facility] Last Admin: 01/08/19 09:16 Dose: Not Given Fluticasone/Salmeterol (Advair 100mcg/50mcg -) 1 puff IH BID [facility] Last Admin: 01/08/19 09:17 Dose: 1 puff Sertraline HCl (Zoloft -) 50 mg PO DAILY [facility] Last Admin: 01/08/19 09:10 Dose: 50 mg Tamsulosin HCl (Flomax -) 0.4 mg PO DAILY@0830 [facility] Last Admin: 01/08/19 09:11 Dose: 0.4 mg Tiotropium [place] (Spiriva Respimat) 2 puff IH DAILY [facility] Last Admin: 01/08/19 09:18 Dose: 2 puff Valacyclovir HCl (Valtrex -) 500 mg PO DAILY [facility] Last Admin: 01/08/19 09:10 Dose: 500 mg - Objective Vital Signs: Vital Signs Temperature 98.1 F 01/08/19 06:42 Pulse Rate 73 01/08/19 06:42 Respiratory Rate 20 01/08/19 10:00 Blood Pressure 136/64 01/08/19 06:42 O2 Sat by Pulse Oximetry (%) 95 01/08/19 10:00 Cardiovascular: Yes: Regular Rate and Rhythm Respiratory: Yes: Regular, CTA Bilaterally Gastrointestinal: Yes: Normal Bowel Sounds, Soft Labs: CBC, BMP 01/08/19 06:00 01/08/19 06:00 INR, PTT INR 1.19 (0.83-1.09) H 01/01/19 16:40 Problem List - Problems (1) Tachycardia Assessment/Plan: lopressor given ivp lopressor 25 bid Code(s): R00.0 - TACHYCARDIA, UNSPECIFIED (2) Elevated troponin Code(s): R74.8 - ABNORMAL LEVELS OF OTHER SERUM ENZYMES (3) Hypoglycemia Code(s): E16.2 - HYPOGLYCEMIA, UNSPECIFIED (4) NSTEMI (non-ST elevated myocardial infarction) Code(s): I21.4 - NON-ST ELEVATION (NSTEMI) MYOCARDIAL INFARCTION (5) Respiratory distress Code(s): R06.03 - ACUTE RESPIRATORY DISTRESS (6) Substance abuse Code(s): F19.10 - OTHER PSYCHOACTIVE SUBSTANCE ABUSE, UNCOMPLICATED (7) UTI (urinary tract infection) Code(s): N39.0 - URINARY TRACT INFECTION, SITE NOT SPECIFIED Assessment/Plan Problems (1) Hypoglycemia monitor bgm endo appreciated Code(s): E16.2 - HYPOGLYCEMIA, UNSPECIFIED (2) Elevated troponin Assessment/Plan: telemetry cardiology trend troponin asprin lipitor Code(s): R74.8 - ABNORMAL LEVELS OF OTHER SERUM ENZYMES (3) Narcotic dependence Assessment/Plan: prior IVDA methadone 30 his bottle of methadone is at [facility] [place] Code(s): F11.20 - OPIOID DEPENDENCE, UNCOMPLICATED (4) Constipation Assessment/Plan: relistor Code(s): K59.00 - CONSTIPATION, UNSPECIFIED (5) CKD (chronic kidney disease) Assessment/Plan: renal folow up Code(s): N18.9 - CHRONIC KIDNEY DISEASE, UNSPECIFIED (6) Anemia Assessment/Plan: Multiple myloma heme on board check stool occult blodd s/p transfusion Code(s): D64.9 - ANEMIA, UNSPECIFIED (7) Respiratory distress Assessment/Plan: iv lasix bid--to po cxr improving--f/u nasal oxygen Code(s): R06.03 - ACUTE RESPIRATORY DISTRESS
[2019-01-08] MEDS: MAG HYDROX/AL HYDROX/SIMETH 30 ML UNIT-DOSE CUP PO PRN (16:39)
[2019-01-08] MEDS: Methylnaltrexone Bromide 12 MG/0.6 ML KIT SQ SCH (16:41)
--- NOTE | 2019-01-08 19:31 | PN ---
Progress Note, Physician Chief Complaint: AMS History of Present Illness: Feels well currently. No complaints. Daughter at bedside. - Current Medication List Current Medications: Active Medications Al Hydroxide/Mg Hydroxide (Mylanta Oral Suspension -) 30 ml PO Q6H PRN PRN Reason: INDIGESTION Last Admin: 01/08/19 16:39 Dose: 30 ml Artificial Tears (Artificial Tears Ointment -) 1 applic OD HS PRN PRN Reason: DRY EYES Aspirin (Asa -) 81 mg PO DAILY [facility] Last Admin: 01/08/19 09:10 Dose: 81 mg Atorvastatin Calcium (Lipitor -) 80 mg PO HS [facility] Last Admin: 01/07/19 21:20 Dose: 80 mg Buspirone HCl 10 mg/ Buspirone (HCl 5 mg) 15 mg PO BID [facility] Last Admin: 01/08/19 13:36 Dose: 15 mg Calcium Carbonate/Cholecalciferol (Os-Kyler 500+D -) 1 tab PO BID [facility] Last Admin: 01/08/19 09:11 Dose: 1 tab Clopidogrel Bisulfate (Plavix -) 75 mg PO DAILY [facility] Last Admin: 01/08/19 09:11 Dose: 75 mg Furosemide (Lasix -) 40 mg PO BID@0600,1400 [facility] Heparin Sodium (Porcine) (Heparin -) 5,000 unit SQ BID [facility] Last Admin: 01/08/19 09:13 Dose: 5,000 unit Piperacillin Sod/Tazobactam (Sod 2.25 gm/ Dextrose) 50 mls @ 100 mls/hr IVPB Q8H-IV [facility]; Protocol Last Admin: 01/08/19 18:02 Dose: 100 mls/hr Insulin Aspart (Novolog Vial Sliding Scale -) 1 vial SQ ACHS [facility]; Protocol Last Admin: 01/08/19 16:42 Dose: Not Given Insulin Detemir (Levemir Vial) 10 units SQ DAILY@0700 [facility] Last Admin: 01/08/19 06:07 Dose: 10 units Methadone HCl (Dolophine -) 30 mg PO DAILY [facility] Last Admin: 01/08/19 09:11 Dose: 30 mg Methylnaltrexone [place] (Relistor -) 12 mg SQ Q2D@1000 [facility] Last Admin: 01/08/19 16:41 Dose: 12 mg Metoprolol Tartrate (Lopressor -) 50 mg PO BID [facility] Last Admin: 01/08/19 09:11 Dose: 50 mg Oxycodone HCl (Roxicodone -) 10 mg PO Q6H PRN PRN Reason: PAIN LEVEL 6-10 Last Admin: 01/08/19 13:33 Dose: 10 mg Pantoprazole Sodium (Protonix Packets For Oral Suspension -) 40 mg PO DAILY [facility] Last Admin: 01/08/19 09:10 Dose: 40 mg Polyethylene Glycol (Miralax (For Daily Use) -) 17 gm PO BID [facility] Last Admin: 01/08/19 09:16 Dose: Not Given Fluticasone/Salmeterol (Advair 100mcg/50mcg -) 1 puff IH BID [facility] Last Admin: 01/08/19 09:17 Dose: 1 puff Sertraline HCl (Zoloft -) 50 mg PO DAILY [facility] Last Admin: 01/08/19 09:10 Dose: 50 mg Tamsulosin HCl (Flomax -) 0.4 mg PO DAILY@0830 [facility] Last Admin: 01/08/19 09:11 Dose: 0.4 mg Tiotropium [place] (Spiriva Respimat) 2 puff IH DAILY [facility] Last Admin: 01/08/19 09:18 Dose: 2 puff Valacyclovir HCl (Valtrex -) 500 mg PO DAILY [facility] Last Admin: 01/08/19 09:10 Dose: 500 mg - Objective Vital Signs: Vital Signs Temperature 97.5 F L 01/08/19 18:00 Pulse Rate 64 01/08/19 18:00 Respiratory Rate 18 01/08/19 18:00 Blood Pressure 127/70 01/08/19 18:00 O2 Sat by Pulse Oximetry (%) 95 01/08/19 10:00 Constitutional: Yes: Well Nourished, No Distress, Calm Eyes: Yes: Conjunctiva Clear Respiratory: Yes: WNL, CTA Bilaterally Gastrointestinal: Yes: Normal Bowel Sounds, Soft Edema: No Labs: CBC, BMP 01/08/19 06:00 01/08/19 06:00 INR, PTT INR 1.19 (0.83-1.09) H 01/01/19 16:40 Assessment/Plan 63M with hx 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 myeloma, on first line velcade/ cytoxan/dex interrupted by recent admission for respiratory failure now admitted with AMS 2/2 hypoglycemia due to insulin overdose (after signing himself out of rehab). Mental status now at baseline. Plan to resume outpatient therapy, likely with revlimid based regimen.
--- NOTE | 2019-01-08 20:38 | PN ---
Progress Note, Physician History of Present Illness: Renal f/u Pt in no distress and without any complaints S/P 2 units of PRBCs - Current Medication List Current Medications: Active Medications Al Hydroxide/Mg Hydroxide (Mylanta Oral Suspension -) 30 ml PO Q6H PRN PRN Reason: INDIGESTION Last Admin: 01/08/19 16:39 Dose: 30 ml Artificial Tears (Artificial Tears Ointment -) 1 applic OD HS PRN PRN Reason: DRY EYES Aspirin (Asa -) 81 mg PO DAILY [facility] Last Admin: 01/08/19 09:10 Dose: 81 mg Atorvastatin Calcium (Lipitor -) 80 mg PO HS [facility] Last Admin: 01/07/19 21:20 Dose: 80 mg Buspirone HCl 10 mg/ Buspirone (HCl 5 mg) 15 mg PO BID [facility] Last Admin: 01/08/19 13:36 Dose: 15 mg Calcium Carbonate/Cholecalciferol (Os-Kyler 500+D -) 1 tab PO BID [facility] Last Admin: 01/08/19 09:11 Dose: 1 tab Clopidogrel Bisulfate (Plavix -) 75 mg PO DAILY [facility] Last Admin: 01/08/19 09:11 Dose: 75 mg Furosemide (Lasix -) 40 mg PO BID@0600,1400 [facility] Heparin Sodium (Porcine) (Heparin -) 5,000 unit SQ BID [facility] Last Admin: 01/08/19 09:13 Dose: 5,000 unit Piperacillin Sod/Tazobactam (Sod 2.25 gm/ Dextrose) 50 mls @ 100 mls/hr IVPB Q8H-IV [facility]; Protocol Last Admin: 01/08/19 18:02 Dose: 100 mls/hr Insulin Aspart (Novolog Vial Sliding Scale -) 1 vial SQ ACHS [facility]; Protocol Last Admin: 01/08/19 16:42 Dose: Not Given Insulin Detemir (Levemir Vial) 10 units SQ DAILY@0700 [facility] Last Admin: 01/08/19 06:07 Dose: 10 units Methadone HCl (Dolophine -) 30 mg PO DAILY [facility] Last Admin: 01/08/19 09:11 Dose: 30 mg Methylnaltrexone [place] (Relistor -) 12 mg SQ Q2D@1000 [facility] Last Admin: 01/08/19 16:41 Dose: 12 mg Metoprolol Tartrate (Lopressor -) 50 mg PO BID [facility] Last Admin: 01/08/19 09:11 Dose: 50 mg Oxycodone HCl (Roxicodone -) 10 mg PO Q6H PRN PRN Reason: PAIN LEVEL 6-10 Last Admin: 01/08/19 20:02 Dose: 10 mg Pantoprazole Sodium (Protonix Packets For Oral Suspension -) 40 mg PO DAILY [facility] Last Admin: 01/08/19 09:10 Dose: 40 mg Polyethylene Glycol (Miralax (For Daily Use) -) 17 gm PO BID [facility] Last Admin: 01/08/19 09:16 Dose: Not Given Fluticasone/Salmeterol (Advair 100mcg/50mcg -) 1 puff IH BID [facility] Last Admin: 01/08/19 09:17 Dose: 1 puff Sertraline HCl (Zoloft -) 50 mg PO DAILY [facility] Last Admin: 01/08/19 09:10 Dose: 50 mg Tamsulosin HCl (Flomax -) 0.4 mg PO DAILY@0830 [facility] Last Admin: 01/08/19 09:11 Dose: 0.4 mg Tiotropium [place] (Spiriva Respimat) 2 puff IH DAILY [facility] Last Admin: 01/08/19 09:18 Dose: 2 puff Valacyclovir HCl (Valtrex -) 500 mg PO DAILY [facility] Last Admin: 01/08/19 09:10 Dose: 500 mg - Objective Vital Signs: Vital Signs Temperature 97.5 F L 01/08/19 18:00 Pulse Rate 64 01/08/19 18:00 Respiratory Rate 18 01/08/19 18:00 Blood Pressure 127/70 01/08/19 18:00 O2 Sat by Pulse Oximetry (%) 95 01/08/19 10:00 Constitutional: Yes: No Distress Cardiovascular: Yes: S1, S2 Respiratory: Yes: CTA Bilaterally Gastrointestinal: Yes: Soft. No: Tenderness, Rebound Edema: No Labs: CBC, BMP 01/08/19 06:00 01/08/19 06:00 INR, PTT INR 1.19 (0.83-1.09) H 01/01/19 16:40 Assessment/Plan Impression 1. S/P hyponatremia 2. CKD stable 3. S/P hypoglycemia 4. htn 5. DM 6. 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 multiple myeloma 9. anemia for which pt was transfused 10. proteinuria 11. S/P hyperkalemia 12.Lung infiltrate on CXR Plan - No changes made - Abx - lasix as ordered - Avoid nsaids and other nephrotoxic agents Dr Benítez
[2019-01-08] MEDS: ATORVASTATIN CA 80 MG TABLET (FP) PO SCH (23:40)
[2019-01-09] MEDS ORDERED: DEXTROSE 5%-WATER - 50 ML IVPB ONE ×2 (01:43→10:32)
[2019-01-09] MEDS ORDERED: PIPERACILLIN/TAZOBACTAM 2.25 GM VIAL IVPB ONE ×2 (01:43→10:32)
[2019-01-09] MEDS: oxyCODONE HCL 5 MG TABLET PO PRN ×4 (02:01→20:17)
[2019-01-09] MEDS: PIPERACILLIN/TAZOB 2.25 GM 2.25 GM in DEXTROSE 5%-WATER - 50 ML IVPB SCH ×2 (02:06→10:40)
[2019-01-09] MEDS: INSULIN SLIDING SCALE (NOVOLOG) 1 VIAL SQ SCH ×4 (07:03→21:06)
[2019-01-09] MEDS: FUROSEMIDE 40 MG TABLET (FP) PO SCH ×2 (07:03→14:03)
[2019-01-09] MEDS: INSULIN (LEVEMIR) 100 UNITS/ML UNITS SQ SCH (07:06)
[2019-01-09 08:00] LABS: BASO % 0.3 % (0-2.0); EOS % 1.6 % (0-4.5); HEMATOCRIT 28.3 % (35.4-49); HEMOGLOBIN 9.7 GM/dL (11.7-16.9); MCH 29.9 pg (25.7-33.7); MCHC 34.2 g/dl (32.0-35.9); MEAN CELL VOLUME 87.6 fl (80-96); MEAN PLT VOLUME 8.2 fl (7.5-11.1); MONO % 4.7 % (3.8-10.2); NEUT % 79.4 % (42.8-82.8); PLATELET COUNT 169 K/MM3 (134-434); RBC 3.23 M/mm3 (4.00-5.60); RDW 17.2 % (11.9-15.9); WHITE BLOOD COUNT 6.3 K/mm3 (4.0-10.0)
[2019-01-09] MEDS: TAMSULOSIN HCL 0.4 MG CAP PO SCH (08:04)
[2019-01-09] MEDS ORDERED: INSULIN (LEVEMIR) 100 UNITS/ML UNITS SQ ONE (08:10)
[2019-01-09 08:30] LABS: ALBUMIN 2.4 g/dl (3.4-5.0); ALK PHOS 70 U/L (45-117); ANION GAP 6 MMOL/L (8-16); BILIRUBIN,TOTAL 0.3 mg/dL (0.2-1); BLOOD UREA NITROGEN 25 mg/dL (7-18); CALCIUM 7.9 mg/dL (8.5-10.1); CHLORIDE 100 mmol/L (98-107); CO2 30 mmol/L (21-32); CREATININE 1.3 mg/dL (0.55-1.3); GLUCOSE,RANDOM 114 mg/dL (74-106); POTASSIUM 3.5 mmol/L (3.5-5.1); SGOT/AST 16 U/L (15-37); SGPT/ALT 16 U/L (13-61); SODIUM 136 mmol/L (136-145); TOT PROT 5.4 g/dl (6.4-8.2)
[2019-01-09] MEDS ORDERED: PT OWN MED DRAWER 7, Y5N ONE ×2 (10:32→20:15)
[2019-01-09] MEDS: SERTRALINE HCL 50 MG TABLET (FP) PO SCH (10:36)
[2019-01-09] MEDS: PANTOPRAZOLE SOD 40 MG SUSPENSION PACKET PO SCH (10:36)
[2019-01-09] MEDS: CLOPIDOGREL BISULFATE 75 MG TABLET (FP) PO SCH (10:36)
[2019-01-09] MEDS: valACYclovir HCL 500 MG TABLET (FP) PO SCH (10:36)
[2019-01-09] MEDS: CALCIUM 500MG/VIT-D 200 UNITS COMBO TABLET (FP) PO SCH ×2 (10:36→21:05)
[2019-01-09] MEDS: ASPIRIN 81 MG CHEWABLE TABLETS PO SCH (10:36)
[2019-01-09] MEDS: POLYETHYLENE GLYCOL 3350 119 GM BTL PO SCH ×2 (10:37→21:05)
[2019-01-09] MEDS: METOPROLOL TARTRATE 50 MG TABLET (FP) PO SCH ×2 (10:37→21:05)
[2019-01-09] MEDS: HEPARIN NA (PORCINE) 5,000 UNITS/ML 1ML VIAL SQ SCH ×2 (10:37→21:05)
[2019-01-09] MEDS: TIOTROPIUM BROMIDE 2.5 MCG (SPIRIVA) RESPIMAT INHALER IH SCH (10:38)
[2019-01-09] MEDS: FLUTICASONE/SALMETEROL 100 MCG/50 MCG DISKUS IH SCH ×2 (10:38→21:05)
[2019-01-09] MEDS: BUSPIRONE HCL 10 MG, BUSPIRONE HCL 5 MG PO SCH ×2 (10:39→21:05)
[2019-01-09] MEDS: METHADONE HCL 10 MG TABLET PO SCH (10:39)
--- NOTE | 2019-01-09 10:39 | PN ---
Progress Note, Physician History of Present Illness: AWAKE, ALERT IN BED NO FOCAL COMPLAINT AFEBRILE WBC WNL ROSAS CATHETER IN PLACE URINE C/S PSEUDOMONAS - Current Medication List Current Medications: Active Medications Al Hydroxide/Mg Hydroxide (Mylanta Oral Suspension -) 30 ml PO Q6H PRN PRN Reason: INDIGESTION Last Admin: 01/08/19 16:39 Dose: 30 ml Artificial Tears (Artificial Tears Ointment -) 1 applic OD HS PRN PRN Reason: DRY EYES Aspirin (Asa -) 81 mg PO DAILY [facility] Last Admin: 01/08/19 09:10 Dose: 81 mg Atorvastatin Calcium (Lipitor -) 80 mg PO HS [facility] Last Admin: 01/08/19 23:40 Dose: 80 mg Buspirone HCl 10 mg/ Buspirone (HCl 5 mg) 15 mg PO BID [facility] Last Admin: 01/08/19 23:43 Dose: 15 mg Calcium Carbonate/Cholecalciferol (Os-Kyler 500+D -) 1 tab PO BID [facility] Last Admin: 01/08/19 23:41 Dose: 1 tab Clopidogrel Bisulfate (Plavix -) 75 mg PO DAILY [facility] Last Admin: 01/08/19 09:11 Dose: 75 mg Furosemide (Lasix -) 40 mg PO BID@0600,1400 [facility] Last Admin: 01/09/19 07:03 Dose: 40 mg Heparin Sodium (Porcine) (Heparin -) 5,000 unit SQ BID [facility] Last Admin: 01/08/19 23:43 Dose: 5,000 unit Piperacillin Sod/Tazobactam (Sod 2.25 gm/ Dextrose) 50 mls @ 100 mls/hr IVPB Q8H-IV [facility]; Protocol Last Admin: 01/09/19 02:06 Dose: 100 mls/hr Insulin Aspart (Novolog Vial Sliding Scale -) 1 vial SQ ACHS [facility]; Protocol Last Admin: 01/09/19 07:03 Dose: Not Given Insulin Detemir (Levemir Vial) 10 units SQ DAILY@0700 [facility] Last Admin: 01/09/19 07:06 Dose: Not Given Methadone HCl (Dolophine -) 30 mg PO DAILY [facility] Last Admin: 01/08/19 09:11 Dose: 30 mg Methylnaltrexone [place] (Relistor -) 12 mg SQ Q2D@1000 [facility] Last Admin: 01/08/19 16:41 Dose: 12 mg Metoprolol Tartrate (Lopressor -) 50 mg PO BID [facility] Last Admin: 01/08/19 23:41 Dose: 50 mg Oxycodone HCl (Roxicodone -) 10 mg PO Q6H PRN PRN Reason: PAIN LEVEL 6-10 Last Admin: 01/09/19 08:05 Dose: 10 mg Pantoprazole Sodium (Protonix Packets For Oral Suspension -) 40 mg PO DAILY [facility] Last Admin: 01/08/19 09:10 Dose: 40 mg Polyethylene Glycol (Miralax (For Daily Use) -) 17 gm PO BID [facility] Last Admin: 01/08/19 23:45 Dose: Not Given Fluticasone/Salmeterol (Advair 100mcg/50mcg -) 1 puff IH BID [facility] Last Admin: 01/08/19 23:44 Dose: 1 puff Sertraline HCl (Zoloft -) 50 mg PO DAILY [facility] Last Admin: 01/08/19 09:10 Dose: 50 mg Tamsulosin HCl (Flomax -) 0.4 mg PO DAILY@0830 [facility] Last Admin: 01/09/19 08:04 Dose: 0.4 mg Tiotropium [place] (Spiriva Respimat) 2 puff IH DAILY [facility] Last Admin: 01/08/19 09:18 Dose: 2 puff Valacyclovir HCl (Valtrex -) 500 mg PO DAILY [facility] Last Admin: 01/08/19 09:10 Dose: 500 mg - Objective Vital Signs: Vital Signs Temperature 98.8 F 01/09/19 10:00 Pulse Rate 72 01/09/19 10:00 Respiratory Rate 18 01/09/19 10:00 Blood Pressure 131/70 01/09/19 10:00 O2 Sat by Pulse Oximetry (%) 95 01/09/19 09:00 Constitutional: Yes: No Distress Eyes: Yes: Conjunctiva Clear Cardiovascular: Yes: Regular Rate and Rhythm, S1, S2 Respiratory: Yes: CTA Bilaterally Gastrointestinal: Yes: Normal Bowel Sounds, Soft. No: Tenderness Edema: No Labs: CBC, BMP 01/09/19 06:20 01/09/19 06:20 INR, PTT INR 1.19 (0.83-1.09) H 01/01/19 16:40 Assessment/Plan UTI PSEUDOMONAS SYMPTOMATIC HYPOGLYCEMIA MYELOMA DAY #8 ZOSYN SUBSTITUTE LEVAQUIN 500MG PO QD 7D
--- NOTE | 2019-01-09 11:25 | PN ---
Progress Note, Physician Chief Complaint: AMS Hypoglycemia Tachycardia UTI History of Present Illness: Previous notes and events reviewed awake and alert NAD denies chest pain or SOB - Current Medication List Current Medications: Active Medications Al Hydroxide/Mg Hydroxide (Mylanta Oral Suspension -) 30 ml PO Q6H PRN PRN Reason: INDIGESTION Last Admin: 01/08/19 16:39 Dose: 30 ml Artificial Tears (Artificial Tears Ointment -) 1 applic OD HS PRN PRN Reason: DRY EYES Aspirin (Asa -) 81 mg PO DAILY [facility] Last Admin: 01/09/19 10:36 Dose: 81 mg Atorvastatin Calcium (Lipitor -) 80 mg PO HS [facility] Last Admin: 01/08/19 23:40 Dose: 80 mg Buspirone HCl 10 mg/ Buspirone (HCl 5 mg) 15 mg PO BID [facility] Last Admin: 01/09/19 10:39 Dose: 15 mg Calcium Carbonate/Cholecalciferol (Os-Kyler 500+D -) 1 tab PO BID [facility] Last Admin: 01/09/19 10:36 Dose: 1 tab Clopidogrel Bisulfate (Plavix -) 75 mg PO DAILY [facility] Last Admin: 01/09/19 10:36 Dose: 75 mg Furosemide (Lasix -) 40 mg PO BID@0600,1400 [facility] Last Admin: 01/09/19 07:03 Dose: 40 mg Heparin Sodium (Porcine) (Heparin -) 5,000 unit SQ BID [facility] Last Admin: 01/09/19 10:37 Dose: 5,000 unit Levofloxacin (Levaquin 500 Mg Premixed Ivpb -) 500 mg in 100 mls @ 100 mls/hr IVPB DAILY [facility]; Protocol Insulin Aspart (Novolog Vial Sliding Scale -) 1 vial SQ ACHS [facility]; Protocol Last Admin: 01/09/19 07:03 Dose: Not Given Insulin Detemir (Levemir Vial) 10 units SQ DAILY@0700 [facility] Last Admin: 01/09/19 07:06 Dose: Not Given Methadone HCl (Dolophine -) 30 mg PO DAILY [facility] Last Admin: 01/09/19 10:39 Dose: 30 mg Methylnaltrexone [place] (Relistor -) 12 mg SQ Q2D@1000 [facility] Last Admin: 01/08/19 16:41 Dose: 12 mg Metoprolol Tartrate (Lopressor -) 50 mg PO BID [facility] Last Admin: 01/09/19 10:37 Dose: 50 mg Oxycodone HCl (Roxicodone -) 10 mg PO Q6H PRN PRN Reason: PAIN LEVEL 6-10 Last Admin: 01/09/19 08:05 Dose: 10 mg Pantoprazole Sodium (Protonix Packets For Oral Suspension -) 40 mg PO DAILY [facility] Last Admin: 01/09/19 10:36 Dose: 40 mg Polyethylene Glycol (Miralax (For Daily Use) -) 17 gm PO BID [facility] Last Admin: 01/09/19 10:37 Dose: Not Given Fluticasone/Salmeterol (Advair 100mcg/50mcg -) 1 puff IH BID [facility] Last Admin: 01/09/19 10:38 Dose: 1 puff Sertraline HCl (Zoloft -) 50 mg PO DAILY [facility] Last Admin: 01/09/19 10:36 Dose: 50 mg Tamsulosin HCl (Flomax -) 0.4 mg PO DAILY@0830 [facility] Last Admin: 01/09/19 08:04 Dose: 0.4 mg Tiotropium [place] (Spiriva Respimat) 2 puff IH DAILY [facility] Last Admin: 01/09/19 10:38 Dose: 2 puff Valacyclovir HCl (Valtrex -) 500 mg PO DAILY [facility] Last Admin: 01/09/19 10:36 Dose: 500 mg - Objective Vital Signs: Vital Signs Temperature 98.8 F 01/09/19 10:00 Pulse Rate 72 01/09/19 10:00 Respiratory Rate 18 01/09/19 10:00 Blood Pressure 131/70 01/09/19 10:00 O2 Sat by Pulse Oximetry (%) 95 01/09/19 09:00 Constitutional: Yes: No Distress, Calm Eyes: Yes: Conjunctiva Clear HENT: Yes: Atraumatic Cardiovascular: Yes: Regular Rate and Rhythm Respiratory: Yes: CTA Bilaterally, On Nasal O2 Gastrointestinal: Yes: Normal Bowel Sounds, Soft Genitourinary: Yes: [place] Present Musculoskeletal: Yes: Muscle Weakness Extremities: Yes: WNL Edema: No Neurological: Yes: Alert, Pre-Existing Deficit Psychiatric: Yes: Alert, Oriented Labs: CBC, BMP 01/09/19 06:20 01/09/19 06:20 INR, PTT INR 1.19 (0.83-1.09) H 01/01/19 16:40 Microbiology 01/01/19 16:40 Blood - Peripheral Venous Blood Culture - Final NO GROWTH AFTER 5 DAYS INCUBATION 01/01/19 16:40 Blood - Peripheral Venous Blood Culture - Final NO GROWTH AFTER 5 DAYS INCUBATION 01/01/19 16:40 Urine - Urine - Catheterized Urine Culture - Final Pseudomonas Aeruginosa Problem List - Problems (1) Acute metabolic encephalopathy Assessment/Plan: -resolved -2/2 hypoglycemia Code(s): G93.41 - METABOLIC ENCEPHALOPATHY (2) Hypoglycemia Assessment/Plan: -BGM ACHS -endo on board -levemir + ISS Code(s): E16.2 - HYPOGLYCEMIA, UNSPECIFIED (3) Tachycardia Assessment/Plan: -tele monitoring -metoprolol BID Code(s): R00.0 - TACHYCARDIA, UNSPECIFIED (4) UTI (urinary tract infection) Assessment/Plan: -ID on board -Levaquin -no leukocytosis -afebrile -UA 3+ leukcyte and 3+ blood Code(s): N39.0 - URINARY TRACT INFECTION, SITE NOT SPECIFIED (5) CKD (chronic kidney disease) Assessment/Plan: -BUN/Cr 25/1.3 -monitor renal function Code(s): N18.9 - CHRONIC KIDNEY DISEASE, UNSPECIFIED (6) Multiple myeloma Assessment/Plan: -oncology on board Code(s): C90.00 - MULTIPLE MYELOMA NOT HAVING ACHIEVED REMISSION (7) Substance abuse Assessment/Plan: -continue Methadone 30mg daily Code(s): F19.10 - OTHER PSYCHOACTIVE SUBSTANCE ABUSE, UNCOMPLICATED (8) Anemia Assessment/Plan: -monitor Hg daily -transfuse for Hg <7.0 to avoid fluid overload -Hg 9.7 -heme on board Code(s): D64.9 - ANEMIA, UNSPECIFIED Assessment/Plan see problem list dvt ppx do begin d/c planning-pt refused SNF, will have home care services set up
--- NOTE | 2019-01-09 12:53 | PN ---
Progress Note, Physician History of Present Illness: Pt seen and examined at bedside. He is awake and alert. He denies shortness of breath. - Current Medication List Current Medications: Active Medications Al Hydroxide/Mg Hydroxide (Mylanta Oral Suspension -) 30 ml PO Q6H PRN PRN Reason: INDIGESTION Last Admin: 01/08/19 16:39 Dose: 30 ml Artificial Tears (Artificial Tears Ointment -) 1 applic OD HS PRN PRN Reason: DRY EYES Aspirin (Asa -) 81 mg PO DAILY [facility] Last Admin: 01/09/19 10:36 Dose: 81 mg Atorvastatin Calcium (Lipitor -) 80 mg PO HS [facility] Last Admin: 01/08/19 23:40 Dose: 80 mg Buspirone HCl 10 mg/ Buspirone (HCl 5 mg) 15 mg PO BID [facility] Last Admin: 01/09/19 10:39 Dose: 15 mg Calcium Carbonate/Cholecalciferol (Os-Kyler 500+D -) 1 tab PO BID [facility] Last Admin: 01/09/19 10:36 Dose: 1 tab Clopidogrel Bisulfate (Plavix -) 75 mg PO DAILY [facility] Last Admin: 01/09/19 10:36 Dose: 75 mg Furosemide (Lasix -) 40 mg PO BID@0600,1400 [facility] Last Admin: 01/09/19 07:03 Dose: 40 mg Heparin Sodium (Porcine) (Heparin -) 5,000 unit SQ BID [facility] Last Admin: 01/09/19 10:37 Dose: 5,000 unit Levofloxacin (Levaquin 500 Mg Premixed Ivpb -) 500 mg in 100 mls @ 100 mls/hr IVPB DAILY [facility]; Protocol Last Admin: 01/09/19 12:34 Dose: 100 mls/hr Insulin Aspart (Novolog Vial Sliding Scale -) 1 vial SQ ACHS [facility]; Protocol Last Admin: 01/09/19 11:51 Dose: 4 unit Insulin Detemir (Levemir Vial) 10 units SQ DAILY@0700 [facility] Last Admin: 01/09/19 07:06 Dose: Not Given Methadone HCl (Dolophine -) 30 mg PO DAILY [facility] Last Admin: 01/09/19 10:39 Dose: 30 mg Methylnaltrexone Clare (Relistor -) 12 mg SQ Q2D@1000 [facility] Last Admin: 01/08/19 16:41 Dose: 12 mg Metoprolol Tartrate (Lopressor -) 50 mg PO BID [facility] Last Admin: 01/09/19 10:37 Dose: 50 mg Oxycodone HCl (Roxicodone -) 10 mg PO Q6H PRN PRN Reason: PAIN LEVEL 6-10 Last Admin: 01/09/19 08:05 Dose: 10 mg Pantoprazole Sodium (Protonix Packets For Oral Suspension -) 40 mg PO DAILY [facility] Last Admin: 01/09/19 10:36 Dose: 40 mg Polyethylene Glycol (Miralax (For Daily Use) -) 17 gm PO BID [facility] Last Admin: 01/09/19 10:37 Dose: Not Given Fluticasone/Salmeterol (Advair 100mcg/50mcg -) 1 puff IH BID [facility] Last Admin: 01/09/19 10:38 Dose: 1 puff Sertraline HCl (Zoloft -) 50 mg PO DAILY [facility] Last Admin: 01/09/19 10:36 Dose: 50 mg Tamsulosin HCl (Flomax -) 0.4 mg PO DAILY@0830 [facility] Last Admin: 01/09/19 08:04 Dose: 0.4 mg Tiotropium Clare (Spiriva Respimat) 2 puff IH DAILY [facility] Last Admin: 01/09/19 10:38 Dose: 2 puff Valacyclovir HCl (Valtrex -) 500 mg PO DAILY [facility] Last Admin: 01/09/19 10:36 Dose: 500 mg - Objective Vital Signs: Vital Signs Temperature 98.8 F 01/09/19 10:00 Pulse Rate 72 01/09/19 10:00 Respiratory Rate 18 01/09/19 10:00 Blood Pressure 131/70 01/09/19 10:00 O2 Sat by Pulse Oximetry (%) 95 01/09/19 09:00 Constitutional: Yes: Calm Eyes: Yes: Conjunctiva Clear HENT: Yes: Atraumatic Neck: Yes: Supple Cardiovascular: Yes: S1, S2 Respiratory: Yes: On Nasal O2 Gastrointestinal: Yes: Soft Genitourinary: Yes: WNL Musculoskeletal: Yes: Muscle Weakness Edema: LLE: Trace, RLE: Trace Neurological: Yes: Oriented Psychiatric: Yes: Oriented Labs: CBC, BMP 01/09/19 06:20 01/09/19 06:20 INR, PTT INR 1.19 (0.83-1.09) H 01/01/19 16:40 Assessment/Plan Current Medications Generic Name Dose Route Start Last Admin Trade Name Freq PRN Reason Stop Dose Admin Al Hydroxide/Mg Hydroxide 30 ml 01/03/19 11:35 01/08/19 16:39 Mylanta Oral Suspension - PO 30 ml Q6H PRN Administration INDIGESTION Artificial Tears 1 applic 01/01/19 19:22 Artificial Tears Ointment - OD HS PRN DRY EYES Aspirin 81 mg 01/02/19 10:00 01/09/19 10:36 Asa - PO 81 mg DAILY [facility]AKOV Administration Atorvastatin Calcium 80 mg 01/01/19 22:00 01/08/19 23:40 Lipitor - PO 80 mg HS [facility]AKOV Administration Buspirone HCl 10 mg/ Buspirone 15 mg 01/04/19 10:00 01/09/19 10:39 HCl 5 mg PO 15 mg BID [facility]AKOV Administration Calcium Carbonate/Cholecalciferol 1 tab 01/02/19 10:00 01/09/19 10:36 Os-Kyler 500+D - PO 1 tab BID [facility]AK[facility] Administration Clopidogrel Bisulfate 75 mg 01/05/19 10:00 01/09/19 10:36 Plavix - PO 75 mg DAILY [facility] Administration Furosemide 40 mg 01/09/19 06:00 01/09/19 07:03 Lasix - PO 40 mg BID@0600,1400 [facility] Administration Heparin Sodium (Porcine) 5,000 unit 01/06/19 22:00 01/09/19 10:37 Heparin - SQ 5,000 unit BID [facility] Administration Levofloxacin 500 mg in 100 mls @ 100 mls/hr 01/09/19 11:30 01/09/19 12:34 Levaquin 500 Mg Premixed Ivpb - IVPB 100 mls/hr DAILY [facility] Administration Protocol Insulin Aspart 1 vial 01/01/19 22:00 01/09/19 11:51 Novolog Vial Sliding Scale - SQ 4 unit ACHS [facility] Administration Protocol Insulin Detemir 10 units 01/05/19 11:40 01/09/19 07:06 Levemir Vial SQ Not Given DAILY@0700 [facility] Methadone HCl 30 mg 01/07/19 10:00 01/09/19 10:39 Dolophine - PO 30 mg DAILY [facility] Administration Methylnaltrexone Clare 12 mg 01/04/19 10:00 01/08/19 16:41 Relistor - SQ 12 mg Q2D@1000 [facility] Administration Metoprolol Tartrate 50 mg 01/06/19 14:43 01/09/19 10:37 Lopressor - PO 50 mg BID [facility] Administration Oxycodone HCl 10 mg 01/07/19 16:15 01/09/19 08:05 Roxicodone - PO 10 mg Q6H PRN Administration PAIN LEVEL 6-10 Pantoprazole Sodium 40 mg 01/02/19 10:00 01/09/19 10:36 Protonix Packets For Oral Suspension - PO 40 mg DAILY [facility] Administration Polyethylene Glycol 17 gm 01/05/19 22:00 01/09/19 10:37 Miralax (For Daily Use) - PO Not Given BID [facility] Fluticasone/Salmeterol 1 puff 01/01/19 22:00 01/09/19 10:38 Advair 100mcg/50mcg - IH 1 puff BID [facility] Administration Sertraline HCl 50 mg 01/02/19 10:00 01/09/19 10:36 Zoloft - PO 50 mg DAILY [facility] Administration Tamsulosin HCl 0.4 mg 01/02/19 08:30 01/09/19 08:04 Flomax - PO 0.4 mg DAILY@0830 [facility] Administration Tiotropium Clare 2 puff 01/02/19 10:00 01/09/19 10:38 Spiriva Respimat IH 2 puff DAILY [facility] Administration Valacyclovir HCl 500 mg 01/02/19 10:00 01/09/19 10:36 Valtrex - PO 500 mg DAILY [facility] Administration Impression 1. hyponatremia 2. CKD 3. hypoglycemia 4. htn 5. DM 6. 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 multiple myeloma 9. anemia 10. proteinuria 11. hyperkalemia 12. NSTEMI Plan - volume status is improving - cont lasix - pt tolerating diet - avoid nsaids - monitor lytes
[2019-01-09] MEDS: ATORVASTATIN CA 80 MG TABLET (FP) PO SCH (21:05)
--- NOTE | 2019-01-09 23:15 | PN ---
Progress Note (short form) - Note Progress Note: PAtient seen and examined Denies any complaints Alert/oriented AFVSS Cor: RSR, No murmurs, No gallops Lungs: Clear to P&A Abd: Soft, Normal bowel sounds, No organomegaly Ext:No significant edema Labs/meds reviewed A/P 63 yo man recently diagnosed with multiple. myeloma, recently discharged from inpatient- (was in ICU intubated for pneumonia and respiratory failure) to rehab facility. He signed himself out of rehab morning and took insulin sc dose and was later found to be obtunded and diaphoretic, shakey, glucometer was not readable. He was then brought to the hospital and received d50 IV, after which his mental status returned to baseline. Echocardiogram showed EF 45-50% without regional variability. Unchanged from echo done 11/2018. ECG with anterior wall T wave inversions. myeloma--s/p rt to l spine episural disease/left acetabulum s/p velcade/cytoxan/dex given recent course and critical illness neuropathy will switch to revlimid discussed with daughters on 01/06/19 ? consider revlimid/dexamethasone versus melphalan/prednisone Another episode pf pulmonary edema/NSTEMI Cardiology f/u pseudomonal UTI --swithced from zosyn to levaquin ? d/c onel
[2019-01-10] MEDS: oxyCODONE HCL 5 MG TABLET PO PRN ×3 (02:15→14:39)
[2019-01-10] MEDS: FUROSEMIDE 40 MG TABLET (FP) PO SCH ×2 (05:13→13:34)
[2019-01-10] MEDS: INSULIN (LEVEMIR) 100 UNITS/ML UNITS SQ SCH (06:05)
[2019-01-10] MEDS: INSULIN SLIDING SCALE (NOVOLOG) 1 VIAL SQ SCH ×4 (06:05→21:09)
[2019-01-10 07:02] LABS: HEMOGLOBIN 9.9 GM/dL (11.7-16.9); MCH 29.8 pg (25.7-33.7); MEAN CELL VOLUME 87.6 fl (80-96); MEAN PLT VOLUME 7.6 fl (7.5-11.1); PLATELET COUNT 167 K/MM3 (134-434); RBC 3.31 M/mm3 (4.00-5.60); RDW 17.3 % (11.9-15.9); WHITE BLOOD COUNT 5.9 K/mm3 (4.0-10.0)
[2019-01-10 07:34] LABS: ALBUMIN 2.5 g/dl (3.4-5.0); ALK PHOS 72 U/L (45-117); ANION GAP 5 MMOL/L (8-16); BILIRUBIN,TOTAL 0.3 mg/dL (0.2-1); BLOOD UREA NITROGEN 24 mg/dL (7-18); CALCIUM 7.7 mg/dL (8.5-10.1); CHLORIDE 101 mmol/L (98-107); CO2 30 mmol/L (21-32); CREATININE 1.2 mg/dL (0.55-1.3); GLUCOSE,RANDOM 135 mg/dL (74-106); POTASSIUM 3.8 mmol/L (3.5-5.1); SGOT/AST 16 U/L (15-37); SGPT/ALT 17 U/L (13-61); SODIUM 136 mmol/L (136-145); TOT PROT 5.6 g/dl (6.4-8.2)
--- NOTE | 2019-01-10 08:28 | PN ---
Progress Note, Physician - Current Medication List Current Medications: Active Medications Al Hydroxide/Mg Hydroxide (Mylanta Oral Suspension -) 30 ml PO Q6H PRN PRN Reason: INDIGESTION Last Admin: 01/08/19 16:39 Dose: 30 ml Artificial Tears (Artificial Tears Ointment -) 1 applic OD HS PRN PRN Reason: DRY EYES Aspirin (Asa -) 81 mg PO DAILY [facility] Last Admin: 01/09/19 10:36 Dose: 81 mg Atorvastatin Calcium (Lipitor -) 80 mg PO HS [facility] Last Admin: 01/09/19 21:05 Dose: 80 mg Buspirone HCl 10 mg/ Buspirone (HCl 5 mg) 15 mg PO BID [facility] Last Admin: 01/09/19 21:05 Dose: 15 mg Calcium Carbonate/Cholecalciferol (Os-Kyler 500+D -) 1 tab PO BID [facility] Last Admin: 01/09/19 21:05 Dose: 1 tab Clopidogrel Bisulfate (Plavix -) 75 mg PO DAILY [facility] Last Admin: 01/09/19 10:36 Dose: 75 mg Furosemide (Lasix -) 40 mg PO BID@0600,1400 [facility] Last Admin: 01/10/19 05:13 Dose: 40 mg Heparin Sodium (Porcine) (Heparin -) 5,000 unit SQ BID [facility] Last Admin: 01/09/19 21:05 Dose: 5,000 unit Levofloxacin (Levaquin 500 Mg Premixed Ivpb -) 500 mg in 100 mls @ 100 mls/hr IVPB DAILY [facility]; Protocol Last Admin: 01/09/19 12:34 Dose: 100 mls/hr Insulin Aspart (Novolog Vial Sliding Scale -) 1 vial SQ ACHS [facility]; Protocol Last Admin: 01/10/19 06:05 Dose: Not Given Insulin Detemir (Levemir Vial) 10 units SQ DAILY@0700 [facility] Last Admin: 01/10/19 06:05 Dose: Not Given Methadone HCl (Dolophine -) 30 mg PO DAILY [facility] Last Admin: 01/09/19 10:39 Dose: 30 mg Methylnaltrexone Hudson (Relistor -) 12 mg SQ Q2D@1000 [facility] Last Admin: 01/08/19 16:41 Dose: 12 mg Metoprolol Tartrate (Lopressor -) 50 mg PO BID [facility] Last Admin: 01/09/19 21:05 Dose: 50 mg Oxycodone HCl (Roxicodone -) 10 mg PO Q6H PRN PRN Reason: PAIN LEVEL 6-10 Last Admin: 01/10/19 02:15 Dose: 10 mg Pantoprazole Sodium (Protonix Packets For Oral Suspension -) 40 mg PO DAILY [facility] Last Admin: 01/09/19 10:36 Dose: 40 mg Polyethylene Glycol (Miralax (For Daily Use) -) 17 gm PO BID [facility] Last Admin: 01/09/19 21:05 Dose: Not Given Fluticasone/Salmeterol (Advair 100mcg/50mcg -) 1 puff IH BID [facility] Last Admin: 01/09/19 21:05 Dose: 1 puff Sertraline HCl (Zoloft -) 50 mg PO DAILY [facility] Last Admin: 01/09/19 10:36 Dose: 50 mg Tamsulosin HCl (Flomax -) 0.4 mg PO DAILY@0830 [facility] Last Admin: 01/09/19 08:04 Dose: 0.4 mg Tiotropium [place] (Spiriva Respimat) 2 puff IH DAILY [facility] Last Admin: 01/09/19 10:38 Dose: 2 puff Valacyclovir HCl (Valtrex -) 500 mg PO DAILY [facility] Last Admin: 01/09/19 10:36 Dose: 500 mg - Objective Vital Signs: Vital Signs Temperature 98.1 F 01/10/19 05:55 Pulse Rate 18 L 01/10/19 05:55 Respiratory Rate 63 H 01/10/19 05:55 Blood Pressure 135/67 01/10/19 05:55 O2 Sat by Pulse Oximetry (%) 98 01/09/19 21:00 Cardiovascular: Yes: S1, S2 Respiratory: Yes: Regular, CTA Bilaterally Gastrointestinal: Yes: Normal Bowel Sounds, Soft. No: Tenderness Labs: CBC, BMP 01/10/19 06:30 01/10/19 06:30 INR, PTT INR 1.19 (0.83-1.09) H 01/01/19 16:40 Problem List - Problems (1) Tachycardia Code(s): R00.0 - TACHYCARDIA, UNSPECIFIED (2) Elevated troponin Code(s): R74.8 - ABNORMAL LEVELS OF OTHER SERUM ENZYMES (3) Hypoglycemia Code(s): E16.2 - HYPOGLYCEMIA, UNSPECIFIED (4) NSTEMI (non-ST elevated myocardial infarction) Code(s): I21.4 - NON-ST ELEVATION (NSTEMI) MYOCARDIAL INFARCTION (5) Respiratory distress Code(s): R06.03 - ACUTE RESPIRATORY DISTRESS (6) Substance abuse Code(s): F19.10 - OTHER PSYCHOACTIVE SUBSTANCE ABUSE, UNCOMPLICATED (7) UTI (urinary tract infection) Code(s): N39.0 - URINARY TRACT INFECTION, SITE NOT SPECIFIED Assessment/Plan - Problems (1) Acute metabolic encephalopathy Assessment/Plan: -resolved -2/2 hypoglycemia Code(s): G93.41 - METABOLIC ENCEPHALOPATHY (2) Hypoglycemia Assessment/Plan: -BGM ACHS -endo on board -levemir + ISS Code(s): E16.2 - HYPOGLYCEMIA, UNSPECIFIED (3) Tachycardia Assessment/Plan: -tele monitoring -metoprolol BID Code(s): R00.0 - TACHYCARDIA, UNSPECIFIED (4) UTI (urinary tract infection) Assessment/Plan: -ID on board -Levaquin -no leukocytosis -afebrile -UA 3+ leukcyte and 3+ blood Code(s): N39.0 - URINARY TRACT INFECTION, SITE NOT SPECIFIED (5) CKD (chronic kidney disease) Assessment/Plan: -BUN/Cr 25/1.3 -monitor renal function Code(s): N18.9 - CHRONIC KIDNEY DISEASE, UNSPECIFIED (6) Multiple myeloma Assessment/Plan: -oncology on board Code(s): C90.00 - MULTIPLE MYELOMA NOT HAVING ACHIEVED REMISSION (7) Substance abuse Assessment/Plan: -continue Methadone 30mg daily Code(s): F19.10 - OTHER PSYCHOACTIVE SUBSTANCE ABUSE, UNCOMPLICATED (8) Anemia Assessment/Plan: -monitor Hg daily -transfuse for Hg <7.0 to avoid fluid overload -Hg 9.7 -heme on board Code(s): D64.9 - ANEMIA, UNSPECIFIED patient refusing snf will dc home pt will need hospital bed for positioning pt will require home care and home health aide 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
[2019-01-10] MEDS ORDERED: PT OWN MED DRAWER 7, Y5N ONE ×2 (09:17→20:21)
[2019-01-10] MEDS: PANTOPRAZOLE SOD 40 MG SUSPENSION PACKET PO SCH (09:41)
[2019-01-10] MEDS: METOPROLOL TARTRATE 50 MG TABLET (FP) PO SCH ×2 (09:41→21:08)
[2019-01-10] MEDS: METHADONE HCL 10 MG TABLET PO SCH (09:41)
[2019-01-10] MEDS: SERTRALINE HCL 50 MG TABLET (FP) PO SCH (09:41)
[2019-01-10] MEDS: TAMSULOSIN HCL 0.4 MG CAP PO SCH (09:41)
[2019-01-10] MEDS: HEPARIN NA (PORCINE) 5,000 UNITS/ML 1ML VIAL SQ SCH ×2 (09:41→21:08)
[2019-01-10] MEDS: ASPIRIN 81 MG CHEWABLE TABLETS PO SCH (09:41)
[2019-01-10] MEDS: valACYclovir HCL 500 MG TABLET (FP) PO SCH (09:41)
[2019-01-10] MEDS: CLOPIDOGREL BISULFATE 75 MG TABLET (FP) PO SCH (09:41)
[2019-01-10] MEDS: CALCIUM 500MG/VIT-D 200 UNITS COMBO TABLET (FP) PO SCH ×2 (09:41→21:09)
[2019-01-10] MEDS: TIOTROPIUM BROMIDE 2.5 MCG (SPIRIVA) RESPIMAT INHALER IH SCH (09:42)
[2019-01-10] MEDS: FLUTICASONE/SALMETEROL 100 MCG/50 MCG DISKUS IH SCH ×2 (09:42→21:09)
[2019-01-10] MEDS: POLYETHYLENE GLYCOL 3350 119 GM BTL PO SCH ×2 (09:43→21:09)
[2019-01-10] MEDS: BUSPIRONE HCL 10 MG, BUSPIRONE HCL 5 MG PO SCH ×2 (09:43→21:08)
[2019-01-10] MEDS: Methylnaltrexone Bromide 12 MG/0.6 ML KIT SQ SCH (11:53)
--- NOTE | 2019-01-10 14:24 | PN ---
Progress Note, Physician History of Present Illness: Pt seen and examined at bedside. He is awake and alert. Massey was removed and he tolerated voiding trial. - Current Medication List Current Medications: Active Medications Al Hydroxide/Mg Hydroxide (Mylanta Oral Suspension -) 30 ml PO Q6H PRN PRN Reason: INDIGESTION Last Admin: 01/08/19 16:39 Dose: 30 ml Artificial Tears (Artificial Tears Ointment -) 1 applic OD HS PRN PRN Reason: DRY EYES Aspirin (Asa -) 81 mg PO DAILY [facility] Last Admin: 01/10/19 09:41 Dose: 81 mg Atorvastatin Calcium (Lipitor -) 80 mg PO HS [facility] Last Admin: 01/09/19 21:05 Dose: 80 mg Buspirone HCl 10 mg/ Buspirone (HCl 5 mg) 15 mg PO BID [facility] Last Admin: 01/10/19 09:43 Dose: 15 mg Calcium Carbonate/Cholecalciferol (Os-Kyler 500+D -) 1 tab PO BID [facility] Last Admin: 01/10/19 09:41 Dose: 1 tab Clopidogrel Bisulfate (Plavix -) 75 mg PO DAILY [facility] Last Admin: 01/10/19 09:41 Dose: 75 mg Furosemide (Lasix -) 40 mg PO BID@0600,1400 [facility] Last Admin: 01/10/19 13:34 Dose: 40 mg Heparin Sodium (Porcine) (Heparin -) 5,000 unit SQ BID [facility] Last Admin: 01/10/19 09:41 Dose: 5,000 unit Levofloxacin (Levaquin 500 Mg Premixed Ivpb -) 500 mg in 100 mls @ 100 mls/hr IVPB DAILY [facility]; Protocol Last Admin: 01/10/19 09:37 Dose: 100 mls/hr Insulin Aspart (Novolog Vial Sliding Scale -) 1 vial SQ ACHS [facility]; Protocol Last Admin: 01/10/19 11:54 Dose: 2 unit Insulin Detemir (Levemir Vial) 10 units SQ DAILY@0700 [facility] Last Admin: 01/10/19 06:05 Dose: Not Given Methadone HCl (Dolophine -) 30 mg PO DAILY [facility] Last Admin: 01/10/19 09:41 Dose: 30 mg Methylnaltrexone Norman (Relistor -) 12 mg SQ Q2D@1000 [facility] Last Admin: 01/10/19 11:53 Dose: 12 mg Metoprolol Tartrate (Lopressor -) 50 mg PO BID [facility] Last Admin: 01/10/19 09:41 Dose: 50 mg Oxycodone HCl (Roxicodone -) 10 mg PO Q6H PRN PRN Reason: PAIN LEVEL 6-10 Last Admin: 01/10/19 08:36 Dose: 10 mg Pantoprazole Sodium (Protonix Packets For Oral Suspension -) 40 mg PO DAILY [facility] Last Admin: 01/10/19 09:41 Dose: 40 mg Polyethylene Glycol (Miralax (For Daily Use) -) 17 gm PO BID [facility] Last Admin: 01/10/19 09:43 Dose: 17 gm Fluticasone/Salmeterol (Advair 100mcg/50mcg -) 1 puff IH BID [facility] Last Admin: 01/10/19 09:42 Dose: 1 puff Sertraline HCl (Zoloft -) 50 mg PO DAILY [facility] Last Admin: 01/10/19 09:41 Dose: 50 mg Tamsulosin HCl (Flomax -) 0.8 mg PO DAILY@0830 [facility] Last Admin: 01/10/19 09:41 Dose: 0.8 mg Tiotropium Norman (Spiriva Respimat) 2 puff IH DAILY [facility] Last Admin: 01/10/19 09:42 Dose: 2 puff Valacyclovir HCl (Valtrex -) 500 mg PO DAILY [facility] Last Admin: 01/10/19 09:41 Dose: 500 mg - Objective Vital Signs: Vital Signs Temperature 97.9 F 01/10/19 14:02 Pulse Rate 70 01/10/19 14:02 Respiratory Rate 16 01/10/19 14:02 Blood Pressure 129/71 01/10/19 14:02 O2 Sat by Pulse Oximetry (%) 98 01/10/19 09:00 Constitutional: Yes: Calm Eyes: Yes: Conjunctiva Clear HENT: Yes: Atraumatic Neck: Yes: Supple Cardiovascular: Yes: S1, S2 Respiratory: Yes: On Nasal O2 Gastrointestinal: Yes: Soft Genitourinary: Yes: WNL Musculoskeletal: Yes: WNL Edema: No Neurological: Yes: Oriented Psychiatric: Yes: Oriented Labs: CBC, BMP 01/10/19 06:30 01/10/19 06:30 INR, PTT INR 1.19 (0.83-1.09) H 01/01/19 16:40 Assessment/Plan Current Medications Generic Name Dose Route Start Last Admin Trade Name Freq PRN Reason Stop Dose Admin Al Hydroxide/Mg Hydroxide 30 ml 01/03/19 11:35 01/08/19 16:39 Mylanta Oral Suspension - PO 30 ml Q6H PRN Administration INDIGESTION Artificial Tears 1 applic 01/01/19 19:22 Artificial Tears Ointment - OD HS PRN DRY EYES Aspirin 81 mg 01/02/19 10:00 01/10/19 09:41 Asa - PO 81 mg DAILY [facility] Administration Atorvastatin Calcium 80 mg 01/01/19 22:00 01/09/19 21:05 Lipitor - PO 80 mg HS [facility] Administration Buspirone HCl 10 mg/ Buspirone 15 mg 01/04/19 10:00 01/10/19 09:43 HCl 5 mg PO 15 mg BID [facility] Administration Calcium Carbonate/Cholecalciferol 1 tab 01/02/19 10:00 01/10/19 09:41 Os-Kyler 500+D - PO 1 tab BID [facility] Administration Clopidogrel Bisulfate 75 mg 01/05/19 10:00 01/10/19 09:41 Plavix - PO 75 mg DAILY [facility] Administration Furosemide 40 mg 01/09/19 06:00 01/10/19 13:34 Lasix - PO 40 mg BID@0600,1400 [facility] Administration Heparin Sodium (Porcine) 5,000 unit 01/06/19 22:00 01/10/19 09:41 Heparin - SQ 5,000 unit BID [facility] Administration Levofloxacin 500 mg in 100 mls @ 100 mls/hr 01/09/19 11:30 01/10/19 09:37 Levaquin 500 Mg Premixed Ivpb - IVPB 100 mls/hr DAILY [facility] Administration Protocol Insulin Aspart 1 vial 01/01/19 22:00 01/10/19 11:54 Novolog Vial Sliding Scale - SQ 2 unit ACHS [facility] Administration Protocol Insulin Detemir 10 units 01/05/19 11:40 01/10/19 06:05 Levemir Vial SQ Not Given DAILY@0700 [facility] Methadone HCl 30 mg 01/07/19 10:00 01/10/19 09:41 Dolophine - PO 30 mg DAILY [facility] Administration Methylnaltrexone [place] 12 mg 01/04/19 10:00 01/10/19 11:53 Relistor - SQ 12 mg Q2D@1000 [facility] Administration Metoprolol Tartrate 50 mg 01/06/19 14:43 01/10/19 09:41 Lopressor - PO 50 mg BID [facility] Administration Oxycodone HCl 10 mg 01/07/19 16:15 01/10/19 08:36 Roxicodone - PO 10 mg Q6H PRN Administration PAIN LEVEL 6-10 Pantoprazole Sodium 40 mg 01/02/19 10:00 01/10/19 09:41 Protonix Packets For Oral Suspension - PO 40 mg DAILY [facility] Administration Polyethylene Glycol 17 gm 01/05/19 22:00 01/10/19 09:43 Miralax (For Daily Use) - PO 17 gm BID [facility] Administration Fluticasone/Salmeterol 1 puff 01/01/19 22:00 01/10/19 09:42 Advair 100mcg/50mcg - IH 1 puff BID [facility] Administration Sertraline HCl 50 mg 01/02/19 10:00 01/10/19 09:41 Zoloft - PO 50 mg DAILY [facility] Administration Tamsulosin HCl 0.8 mg 01/10/19 08:27 01/10/19 09:41 Flomax - PO 0.8 mg DAILY@0830 [facility] Administration Tiotropium [place] 2 puff 01/02/19 10:00 01/10/19 09:42 Spiriva Respimat IH 2 puff DAILY [facility] Administration Valacyclovir HCl 500 mg 01/02/19 10:00 01/10/19 09:41 Valtrex - PO 500 mg DAILY [facility] Administration Impression 1. hyponatremia 2. CKD 3. hypoglycemia 4. htn 5. DM 6. 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 multiple myeloma 9. anemia 10. proteinuria 11. hyperkalemia 12. NSTEMI Plan - cont lasix - monitor renal function - will need outpt follow up after discharge - pt tolerated voiding trial - avoid nsaids
--- NOTE | 2019-01-10 19:02 | PN.GI ---
GI Progress Note Subjective: GI Note: Napoleon is eating and moving his bowels. He is asking for more pain medication. I explained why I am not in favor of this - Objective Vital Signs: Vital Signs Temperature 97.9 F 01/10/19 14:02 Pulse Rate 70 01/10/19 14:02 Respiratory Rate 16 01/10/19 14:02 Blood Pressure 129/71 01/10/19 14:02 O2 Sat by Pulse Oximetry (%) 98 01/10/19 09:00 Laboratory Tests 01/10/19 01/10/19 06:30 06:30 Hgb 9.9 L Albumin 2.5 L Constitutional: Anxious ...Auscultate: Yes: Hypoactive Bowel Sounds ...Palpate: Yes: Soft, Other (nontender) ...Percussion: Yes: Tympanitic Labs: CBC, BMP 01/10/19 06:30 01/10/19 06:30 INR, PTT INR 1.19 (0.83-1.09) H 01/01/19 16:40 Assessment/Plan Impression: Multifactorial constipation with etiologies that include narcotic effect, diabetic autonomic neuropathy and sedentary state. Diabetic gastoparesis resolved No recurrence of GIB Cured HCV Plan Continue Miralax and Relistor PPI to prevent stress gastritis bleed Problem List - Problems (1) Constipation Code(s): K59.00 - CONSTIPATION, UNSPECIFIED (2) Diabetic gastroparesis Code(s): E11.43 - TYPE 2 DIABETES W DIABETIC AUTONOMIC (POLY)NEUROPATHY; K31.84 - GASTROPARESIS (3) Hepatitis C Code(s): B19.20 - UNSPECIFIED VIRAL HEPATITIS C WITHOUT HEPATIC COMA (4) Hypoglycemia Code(s): E16.2 - HYPOGLYCEMIA, UNSPECIFIED (5) NSTEMI (non-ST elevated myocardial infarction) Code(s): I21.4 - NON-ST ELEVATION (NSTEMI) MYOCARDIAL INFARCTION (6) Tachycardia Code(s): R00.0 - TACHYCARDIA, UNSPECIFIED (7) CKD (chronic kidney disease) Code(s): N18.9 - CHRONIC KIDNEY DISEASE, UNSPECIFIED (8) Diabetic neuropathy Code(s): E11.40 - TYPE 2 DIABETES MELLITUS WITH DIABETIC NEUROPATHY, UNSP (9) History of cocaine abuse Code(s): Z87.898 - PERSONAL HISTORY OF OTHER SPECIFIED CONDITIONS (10) History of heroin abuse Code(s): Z87.898 - PERSONAL HISTORY OF OTHER SPECIFIED CONDITIONS (11) History of substance abuse Code(s): Z87.898 - PERSONAL HISTORY OF OTHER SPECIFIED CONDITIONS (12) Multiple myeloma Code(s): C90.00 - MULTIPLE MYELOMA NOT HAVING ACHIEVED REMISSION (13) Narcotic dependence Code(s): F11.20 - OPIOID DEPENDENCE, UNCOMPLICATED (14) Respiratory failure Code(s): J96.90 - RESPIRATORY FAILURE, UNSP, UNSP W HYPOXIA OR HYPERCAPNIA (15) Type 2 diabetes mellitus with foot ulcer Code(s): E11.621 - TYPE 2 DIABETES MELLITUS WITH FOOT ULCER; L97.509 - NON- PRESSURE CHRONIC ULCER OTH PRT UNSP FOOT W UNSP SEVERITY Qualifiers: (16) Vertebral compression fracture Code(s): M48.50XA - COLLAPSED VERTEBRA, NEC, SITE UNSP, INIT (17) Asthma Code(s): J45.909 - UNSPECIFIED ASTHMA, UNCOMPLICATED (18) History of GI bleed Code(s): Z87.19 - PERSONAL HISTORY OF OTHER DISEASES OF THE DIGESTIVE SYSTEM
[2019-01-10] MEDS ORDERED: MORPHINE SULFATE 2 MG/ML VIAL IVPUSH ONE (20:06)
[2019-01-10] MEDS: ATORVASTATIN CA 80 MG TABLET (FP) PO SCH (21:08)
[2019-01-11] MEDS ORDERED: ACETAMINOPHEN 1000 MG/100 ML VIAL (NON FORMULARY) IVPB ONE (01:17)
[2019-01-11] MEDS ORDERED: ALPRAZolam 0.25 MG TABLET PO ONE (02:13)
--- NOTE | 2019-01-11 02:19 | PN ---
Progress Note (short form) - Note Progress Note: Episodic Note: 01/11@2:22am 2006- Called by RN patient with complaints of severe back pain. Patient seen at bedside and patient c/o generalized pain. He is requesting narcotics. Chart reviewed. He was ordered one dosage of IV morphine 2 mg. 115- Called by RN patient with c/o of pain 10/10 and requesting pain medications/narcotics. LFT's reviewed and normal. He was ordered IV Tylenol 1000mg with no relief. 213- Called by RN patient with 10/10 back pain and tremors. He was seen and examined at bedside. He is requesting narcotics. I explained to him he is on Methadone and will order a dose of xanax .25mg now. He was explained his PCP will see him in the morning and a pain management service should be considered for pain control. Patient was in agreement with plan. Visit type - Emergency Visit Emergency Visit: No - New Patient This patient is new to me today: Yes Date on this admission: 01/11/19 - Critical Care Critical Care patient: No
[2019-01-11] MEDS ORDERED: oxyCODONE HCL 5 MG TABLET PO ONE (04:28)
[2019-01-11] MEDS: FUROSEMIDE 40 MG TABLET (FP) PO SCH ×2 (05:30→14:59)
[2019-01-11] MEDS: INSULIN (LEVEMIR) 100 UNITS/ML UNITS SQ SCH (06:31)
[2019-01-11] MEDS: INSULIN SLIDING SCALE (NOVOLOG) 1 VIAL SQ SCH ×4 (06:31→21:22)
[2019-01-11] MEDS ORDERED: PT OWN MED DRAWER 7, Y5N ONE ×2 (09:14→21:16)
[2019-01-11] MEDS: ASPIRIN 81 MG CHEWABLE TABLETS PO SCH (09:22)
[2019-01-11] MEDS: FLUTICASONE/SALMETEROL 100 MCG/50 MCG DISKUS IH SCH ×2 (09:22→21:21)
[2019-01-11] MEDS: TAMSULOSIN HCL 0.4 MG CAP PO SCH (09:22)
[2019-01-11] MEDS: BUSPIRONE HCL 10 MG, BUSPIRONE HCL 5 MG PO SCH ×2 (09:22→22:17)
[2019-01-11] MEDS: METHADONE HCL 10 MG TABLET PO SCH (09:23)
[2019-01-11] MEDS: CALCIUM 500MG/VIT-D 200 UNITS COMBO TABLET (FP) PO SCH ×2 (09:24→21:21)
[2019-01-11] MEDS: valACYclovir HCL 500 MG TABLET (FP) PO SCH (09:24)
[2019-01-11] MEDS: CLOPIDOGREL BISULFATE 75 MG TABLET (FP) PO SCH (09:24)
[2019-01-11] MEDS: SERTRALINE HCL 50 MG TABLET (FP) PO SCH (09:24)
[2019-01-11] MEDS: PANTOPRAZOLE SOD 40 MG SUSPENSION PACKET PO SCH (09:24)
[2019-01-11] MEDS: METOPROLOL TARTRATE 50 MG TABLET (FP) PO SCH ×2 (09:24→21:21)
[2019-01-11] MEDS: TIOTROPIUM BROMIDE 2.5 MCG (SPIRIVA) RESPIMAT INHALER IH SCH (09:24)
[2019-01-11] MEDS: HEPARIN NA (PORCINE) 5,000 UNITS/ML 1ML VIAL SQ SCH ×2 (09:45→21:21)
[2019-01-11] MEDS: POLYETHYLENE GLYCOL 3350 119 GM BTL PO SCH ×2 (10:05→21:24)
--- NOTE | 2019-01-11 11:37 | PN ---
Progress Note, Physician History of Present Illness: Pt seen and examined at bedside. He is awake and alert. He still requires oxygen. He denies dysuria. He is participating with rehab. - Current Medication List Current Medications: Active Medications Al Hydroxide/Mg Hydroxide (Mylanta Oral Suspension -) 30 ml PO Q6H PRN PRN Reason: INDIGESTION Last Admin: 01/08/19 16:39 Dose: 30 ml Artificial Tears (Artificial Tears Ointment -) 1 applic OD HS PRN PRN Reason: DRY EYES Aspirin (Asa -) 81 mg PO DAILY [facility] Last Admin: 01/11/19 09:22 Dose: 81 mg Atorvastatin Calcium (Lipitor -) 80 mg PO HS [facility] Last Admin: 01/10/19 21:08 Dose: 80 mg Buspirone HCl 10 mg/ Buspirone (HCl 5 mg) 15 mg PO BID [facility] Last Admin: 01/11/19 09:22 Dose: 15 mg Calcium Carbonate/Cholecalciferol (Os-Kyler 500+D -) 1 tab PO BID [facility] Last Admin: 01/11/19 09:24 Dose: 1 tab Clopidogrel Bisulfate (Plavix -) 75 mg PO DAILY [facility] Last Admin: 01/11/19 09:24 Dose: 75 mg Furosemide (Lasix -) 40 mg PO BID@0600,1400 [facility] Last Admin: 01/11/19 05:30 Dose: 40 mg Heparin Sodium (Porcine) (Heparin -) 5,000 unit SQ BID [facility] Last Admin: 01/10/19 21:08 Dose: 5,000 unit Levofloxacin (Levaquin 500 Mg Premixed Ivpb -) 500 mg in 100 mls @ 100 mls/hr IVPB DAILY [facility]; Protocol Last Admin: 01/11/19 09:24 Dose: 100 mls/hr Insulin Aspart (Novolog Vial Sliding Scale -) 1 vial SQ ACHS [facility]; Protocol Last Admin: 01/11/19 06:31 Dose: Not Given Insulin Detemir (Levemir Vial) 10 units SQ DAILY@0700 [facility] Last Admin: 01/11/19 06:31 Dose: Not Given Methadone HCl (Dolophine -) 30 mg PO DAILY [facility] Last Admin: 01/11/19 09:23 Dose: 30 mg Methylnaltrexone [place] (Relistor -) 12 mg SQ Q2D@1000 [facility] Last Admin: 01/10/19 11:53 Dose: 12 mg Metoprolol Tartrate (Lopressor -) 50 mg PO BID [facility] Last Admin: 01/11/19 09:24 Dose: 50 mg Oxycodone HCl (Roxicodone -) 10 mg PO Q6H PRN PRN Reason: PAIN LEVEL 6-10 Pantoprazole Sodium (Protonix Packets For Oral Suspension -) 40 mg PO DAILY [facility] Last Admin: 01/11/19 09:24 Dose: 40 mg Polyethylene Glycol (Miralax (For Daily Use) -) 17 gm PO BID [facility] Last Admin: 01/10/19 21:09 Dose: 17 gm Fluticasone/Salmeterol (Advair 100mcg/50mcg -) 1 puff IH BID [facility] Last Admin: 01/11/19 09:22 Dose: 1 puff Sertraline HCl (Zoloft -) 50 mg PO DAILY [facility] Last Admin: 01/11/19 09:24 Dose: 50 mg Tamsulosin HCl (Flomax -) 0.8 mg PO DAILY@0830 [facility] Last Admin: 01/11/19 09:22 Dose: 0.8 mg Tiotropium [place] (Spiriva Respimat) 2 puff IH DAILY [facility] Last Admin: 01/11/19 09:24 Dose: 2 puff Valacyclovir HCl (Valtrex -) 500 mg PO DAILY [facility] Last Admin: 01/11/19 09:24 Dose: 500 mg - Objective Vital Signs: Vital Signs Temperature 98.7 F 01/11/19 09:20 Pulse Rate 71 01/11/19 09:20 Respiratory Rate 18 01/11/19 09:20 Blood Pressure 143/76 01/11/19 09:20 O2 Sat by Pulse Oximetry (%) 98 01/11/19 09:00 Constitutional: Yes: Calm Eyes: Yes: Conjunctiva Clear HENT: Yes: Atraumatic Neck: Yes: Supple Cardiovascular: Yes: S1, S2 Respiratory: Yes: On Nasal O2 Gastrointestinal: Yes: Normal Bowel Sounds, Soft Genitourinary: Yes: WNL Musculoskeletal: Yes: WNL Edema: No Neurological: Yes: Oriented Psychiatric: Yes: Oriented Labs: CBC, BMP 01/10/19 06:30 01/10/19 06:30 INR, PTT INR 1.19 (0.83-1.09) H 01/01/19 16:40 Assessment/Plan Current Medications Generic Name Dose Route Start Last Admin Trade Name Freq PRN Reason Stop Dose Admin Al Hydroxide/Mg Hydroxide 30 ml 01/03/19 11:35 01/08/19 16:39 Mylanta Oral Suspension - PO 30 ml Q6H PRN Administration INDIGESTION Artificial Tears 1 applic 01/01/19 19:22 Artificial Tears Ointment - OD HS PRN DRY EYES Aspirin 81 mg 01/02/19 10:00 01/11/19 09:22 Asa - PO 81 mg DAILY YAKOV Administration Atorvastatin Calcium 80 mg 01/01/19 22:00 01/10/19 21:08 Lipitor - PO 80 mg HS YAKOV Administration Buspirone HCl 10 mg/ Buspirone 15 mg 01/04/19 10:00 01/11/19 09:22 HCl 5 mg PO 15 mg BID YAKOV Administration Calcium Carbonate/Cholecalciferol 1 tab 01/02/19 10:00 01/11/19 09:24 Os-Kyler 500+D - PO 1 tab BID YAKOV Administration Clopidogrel Bisulfate 75 mg 01/05/19 10:00 01/11/19 09:24 Plavix - PO 75 mg DAILY [facility] Administration Furosemide 40 mg 01/09/19 06:00 01/11/19 05:30 Lasix - PO 40 mg BID@0600,1400 [facility] Administration Heparin Sodium (Porcine) 5,000 unit 01/06/19 22:00 01/10/19 21:08 Heparin - SQ 5,000 unit BID [facility]AKOV Administration Levofloxacin 500 mg in 100 mls @ 100 mls/hr 01/09/19 11:30 01/11/19 09:24 Levaquin 500 Mg Premixed Ivpb - IVPB 100 mls/hr DAILY [facility] Administration Protocol Insulin Aspart 1 vial 01/01/19 22:00 01/11/19 06:31 Novolog Vial Sliding Scale - SQ Not Given ACHS [facility] Protocol Insulin Detemir 10 units 01/05/19 11:40 01/11/19 06:31 Levemir Vial SQ Not Given DAILY@0700 [facility] Methadone HCl 30 mg 01/07/19 10:00 01/11/19 09:23 Dolophine - PO 30 mg DAILY [facility] Administration Methylnaltrexone [place] 12 mg 01/04/19 10:00 01/10/19 11:53 Relistor - SQ 12 mg Q2D@1000 [facility] Administration Metoprolol Tartrate 50 mg 01/06/19 14:43 01/11/19 09:24 Lopressor - PO 50 mg BID [facility]AK[facility] Administration Oxycodone HCl 10 mg 01/11/19 08:48 Roxicodone - PO Q6H PRN PAIN LEVEL 6-10 Pantoprazole Sodium 40 mg 01/02/19 10:00 01/11/19 09:24 Protonix Packets For Oral Suspension - PO 40 mg DAILY [facility] Administration Polyethylene Glycol 17 gm 01/05/19 22:00 01/10/19 21:09 Miralax (For Daily Use) - PO 17 gm BID [facility] Administration Fluticasone/Salmeterol 1 puff 01/01/19 22:00 01/11/19 09:22 Advair 100mcg/50mcg - IH 1 puff BID [facility]AK[facility] Administration Sertraline HCl 50 mg 01/02/19 10:00 01/11/19 09:24 Zoloft - PO 50 mg DAILY [facility] Administration Tamsulosin HCl 0.8 mg 01/10/19 08:27 01/11/19 09:22 Flomax - PO 0.8 mg DAILY@0830 [facility] Administration Tiotropium [place] 2 puff 01/02/19 10:00 01/11/19 09:24 Spiriva Respimat IH 2 puff DAILY [facility] Administration Valacyclovir HCl 500 mg 01/02/19 10:00 01/11/19 09:24 Valtrex - PO 500 mg DAILY [facility] Administration Impression 1. hyponatremia 2. CKD 3. hypoglycemia 4. htn 5. DM 6. 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 multiple myeloma 9. anemia 10. proteinuria 11. hyperkalemia 12. NSTEMI Plan - pt tolerating lasix - no new labs - check bmp in an - pt tolerating diet - avoid nsaids
--- NOTE | 2019-01-11 12:58 | DS ---
Physical Examination Vital Signs: Vital Signs Temperature 98.7 F 01/11/19 09:20 Pulse Rate 71 01/11/19 09:20 Respiratory Rate 18 01/11/19 09:20 Blood Pressure 143/76 01/11/19 09:20 O2 Sat by Pulse Oximetry (%) 98 01/11/19 09:00 Cardiovascular: Yes: S1, S2 Respiratory: Yes: Regular, CTA Bilaterally Gastrointestinal: Yes: Normal Bowel Sounds, Soft Labs: CBC, BMP 01/10/19 06:30 01/10/19 06:30 Discharge Summary Reason For Visit: URINARY TRACT INFECTION Current Active Problems Acute metabolic encephalopathy (Acute) Constipation (Acute) Elevated troponin (Acute) History of GI bleed (Acute) Hypoglycemia (Acute) Hypoglycemia due to insulin (Acute) NSTEMI (non-ST elevated myocardial infarction) (Acute) Respiratory distress (Acute) Substance abuse (Acute) Tachycardia (Acute) UTI (urinary tract infection) (Acute) Hospital Course: - Problems (1) Acute metabolic encephalopathy Assessment/Plan: -resolved -2/2 hypoglycemia Code(s): G93.41 - METABOLIC ENCEPHALOPATHY (2) Hypoglycemia Assessment/Plan: -BGM ACHS -endo on board -levemir + ISS Code(s): E16.2 - HYPOGLYCEMIA, UNSPECIFIED (3) Tachycardia Assessment/Plan: -tele monitoring -metoprolol BID Code(s): R00.0 - TACHYCARDIA, UNSPECIFIED (4) UTI (urinary tract infection) Assessment/Plan: -ID on board -Levaquin -no leukocytosis -afebrile -UA 3+ leukcyte and 3+ blood Code(s): N39.0 - URINARY TRACT INFECTION, SITE NOT SPECIFIED (5) CKD (chronic kidney disease) Assessment/Plan: -BUN/Cr 25/1.3 -monitor renal function Code(s): N18.9 - CHRONIC KIDNEY DISEASE, UNSPECIFIED (6) Multiple myeloma Assessment/Plan: -oncology on board Code(s): C90.00 - MULTIPLE MYELOMA NOT HAVING ACHIEVED REMISSION (7) Substance abuse Assessment/Plan: -continue Methadone 30mg daily Code(s): F19.10 - OTHER PSYCHOACTIVE SUBSTANCE ABUSE, UNCOMPLICATED (8) Anemia Assessment/Plan: -monitor Hg daily -transfuse for Hg <7.0 to avoid fluid overload -Hg 9.7 -heme on board Code(s): D64.9 - ANEMIA, UNSPECIFIED patient refusing snf will dc home pt will need hospital bed for positioning pt will require home care and home health aide 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 Condition: Improved - Instructions Referrals: Dl Gallegos MD [Staff Physician] - 1 Week Disposition: HOME - Home Medications Comprehensive Discharge Medication List: Ambulatory Orders Insulin Glargine,Hum.rec.anlog [Lantus (10mL VIAL) -] 40 unit SQ HS 06/07/15 Acetaminophen [Tylenol .Regular Strength -] 650 mg PO Q6H PRN #0 tablet Buspirone HCl 15 mg PO BID 07/22/18 Ammonium Lactate Lotion [Lac-Hydrin 12] 1 applic TP BID PRN bottle 12/21/18 Aspirin [ASA -] 81 mg PO DAILY tab.chew 12/21/18 Atorvastatin Ca [Lipitor] 80 mg PO HS tablet 12/21/18 Calcium 500Mg/Vit-D 200 Units [Os-Kyler 500+D -] 2 tab PO DAILY tab 12/21/18 Heparin - 5,000 unit SQ BID vial 12/21/18 Insulin Sliding Scale [Novolog Vial Sliding Scale -] 1 vial SQ TIDAC units Methadone HCl 20 mg PO DAILY #60 tablet MDD 2 12/21/18 Metoprolol Tartrate [Lopressor -] 25 mg PO BID tablet 12/21/18 Nystatin Oral Suspension - [Nystatin Oral Susp 746385 Units/5 ML -] 500,000 units PO Q6HPO cup 12/21/18 Ocular Lubricant Ophth Oint [Lacri-Lube S.o.p -] 1 applic OD HS PRN tube Pantoprazole Suspension [Protonix Packets For Oral Suspension -] 40 mg PO DAILY packet 12/21/18 Polyethylene Glycol 3350 [Miralax 119 gm Btl -] 17 gm PO BID bottle 12/21/18 Tamsulosin HCl [Flomax -] 0.8 mg PO DAILY@0830 cap.er.24h 12/21/18 Tiotropium [place] [Spiriva Respimat] 2 puff IH DAILY inhaler 12/21/18
[2019-01-11] MEDS: oxyCODONE HCL 5 MG TABLET PO PRN ×2 (14:59→21:22)
--- NOTE | 2019-01-11 19:47 | PN ---
Progress Note (short form) - Note Progress Note: Patient seen and examined Lying flat in bed Denies chest pains , shortness of breath Complains about getting pain meds Last Vital Signs Temp Pulse Resp BP Pulse Ox 97.6 F 108 H 20 113/71 98 01/11/19 14:40 01/11/19 14:40 01/11/19 14:40 01/11/19 14:40 01/11/19 09:00 HEENT: [place], EOM Intact Cor: RSR, No murmurs, No gallops Lungs: rales bases Abd: Soft, Normal bowel sounds, No organomegaly Ext:No significant edema Skin: No rashes, Integument intact CBC, BMP 01/10/19 06:30 01/10/19 06:30 Current Medications Generic Name Dose Route Start Last Admin Trade Name Freq PRN Reason Stop Dose Admin Al Hydroxide/Mg Hydroxide 30 ml 01/03/19 11:35 01/08/19 16:39 Mylanta Oral Suspension - PO 30 ml Q6H PRN Administration INDIGESTION Artificial Tears 1 applic 01/01/19 19:22 Artificial Tears Ointment - OD HS PRN DRY EYES Aspirin 81 mg 01/02/19 10:00 01/11/19 09:22 Asa - PO 81 mg DAILY YAKOV Administration Atorvastatin Calcium 80 mg 01/01/19 22:00 01/10/19 21:08 Lipitor - PO 80 mg HS YAKOV Administration Buspirone HCl 10 mg/ Buspirone 15 mg 01/04/19 10:00 01/11/19 09:22 HCl 5 mg PO 15 mg BID YAKOV Administration Calcium Carbonate/Cholecalciferol 1 tab 01/02/19 10:00 01/11/19 09:24 Os-Kyler 500+D - PO 1 tab BID [facility] Administration Clopidogrel Bisulfate 75 mg 01/05/19 10:00 01/11/19 09:24 Plavix - PO 75 mg DAILY [facility] Administration Furosemide 40 mg 01/09/19 06:00 01/11/19 14:59 Lasix - PO 40 mg BID@0600,1400 [facility] Administration Heparin Sodium (Porcine) 5,000 unit 01/06/19 22:00 01/11/19 09:45 Heparin - SQ 5,000 unit BID [facility] Administration Levofloxacin 500 mg in 100 mls @ 100 mls/hr 01/09/19 11:30 01/11/19 09:24 Levaquin 500 Mg Premixed Ivpb - IVPB 100 mls/hr DAILY [facility] Administration Protocol Insulin Aspart 1 vial 01/01/19 22:00 01/11/19 17:33 Novolog Vial Sliding Scale - SQ Not Given ACHS [facility] Protocol Insulin Detemir 10 units 01/05/19 11:40 01/11/19 06:31 Levemir Vial SQ Not Given DAILY@0700 [facility] Methadone HCl 30 mg 01/07/19 10:00 01/11/19 09:23 Dolophine - PO 30 mg DAILY [facility] Administration Methylnaltrexone [place] 12 mg 01/04/19 10:00 01/10/19 11:53 Relistor - SQ 12 mg Q2D@1000 [facility] Administration Metoprolol Tartrate 50 mg 01/06/19 14:43 01/11/19 09:24 Lopressor - PO 50 mg BID [facility] Administration Oxycodone HCl 10 mg 01/11/19 08:48 01/11/19 14:59 Roxicodone - PO 10 mg Q6H PRN Administration PAIN LEVEL 6-10 Pantoprazole Sodium 40 mg 01/02/19 10:00 01/11/19 09:24 Protonix Packets For Oral Suspension - PO 40 mg DAILY [facility] Administration Polyethylene Glycol 17 gm 01/05/19 22:00 01/11/19 10:05 Miralax (For Daily Use) - PO Not Given BID [facility] Fluticasone/Salmeterol 1 puff 01/01/19 22:00 01/11/19 09:22 Advair 100mcg/50mcg - IH 1 puff BID [facility] Administration Sertraline HCl 50 mg 01/02/19 10:00 01/11/19 09:24 Zoloft - PO 50 mg DAILY [facility] Administration Tamsulosin HCl 0.8 mg 01/10/19 08:27 01/11/19 09:22 Flomax - PO 0.8 mg DAILY@0830 [facility] Administration Tiotropium [place] 2 puff 01/02/19 10:00 01/11/19 09:24 Spiriva Respimat IH 2 puff DAILY [facility] Administration Valacyclovir HCl 500 mg 01/02/19 10:00 01/11/19 09:24 Valtrex - PO 500 mg DAILY [facility] Administration Impression: NSTEMI CHF MYELOMA- not in remission Methadone maintenance DM S/P hypoglycemia Plan For discharge and outpatient follow up with Dr. Grady.
[2019-01-11] MEDS: ATORVASTATIN CA 80 MG TABLET (FP) PO SCH (21:21)
[2019-01-12] MEDS ORDERED: diphenhydrAMINE HCL 25 MG CAPSULE (FP) PO ONE (01:23)
[2019-01-12] MEDS: oxyCODONE HCL 5 MG TABLET PO PRN (04:29)
[2019-01-12] MEDS: FUROSEMIDE 40 MG TABLET (FP) PO SCH ×2 (06:00→13:21)
[2019-01-12] MEDS: INSULIN SLIDING SCALE (NOVOLOG) 1 VIAL SQ SCH ×2 (06:01→11:42)
[2019-01-12] MEDS: INSULIN (LEVEMIR) 100 UNITS/ML UNITS SQ SCH (06:01)
[2019-01-12] MEDS ORDERED: PT OWN MED DRAWER 7, Y5N ONE (09:28)
[2019-01-12] MEDS: CLOPIDOGREL BISULFATE 75 MG TABLET (FP) PO SCH (09:39)
[2019-01-12] MEDS: CALCIUM 500MG/VIT-D 200 UNITS COMBO TABLET (FP) PO SCH (09:39)
[2019-01-12] MEDS: ASPIRIN 81 MG CHEWABLE TABLETS PO SCH (09:39)
[2019-01-12] MEDS: PANTOPRAZOLE SOD 40 MG SUSPENSION PACKET PO SCH (09:39)
[2019-01-12] MEDS: valACYclovir HCL 500 MG TABLET (FP) PO SCH (09:39)
[2019-01-12] MEDS: METHADONE HCL 10 MG TABLET PO SCH (09:39)
[2019-01-12] MEDS: SERTRALINE HCL 50 MG TABLET (FP) PO SCH (09:39)
[2019-01-12] MEDS: METOPROLOL TARTRATE 50 MG TABLET (FP) PO SCH (09:39)
[2019-01-12] MEDS: HEPARIN NA (PORCINE) 5,000 UNITS/ML 1ML VIAL SQ SCH (09:40)
[2019-01-12] MEDS: TAMSULOSIN HCL 0.4 MG CAP PO SCH (09:40)
[2019-01-12] MEDS: Methylnaltrexone Bromide 12 MG/0.6 ML KIT SQ SCH (09:40)
[2019-01-12] MEDS: BUSPIRONE HCL 10 MG, BUSPIRONE HCL 5 MG PO SCH (09:41)
[2019-01-12] MEDS: FLUTICASONE/SALMETEROL 100 MCG/50 MCG DISKUS IH SCH (09:43)
[2019-01-12] MEDS: TIOTROPIUM BROMIDE 2.5 MCG (SPIRIVA) RESPIMAT INHALER IH SCH (09:43)
[2019-01-12] MEDS: POLYETHYLENE GLYCOL 3350 119 GM BTL PO SCH (09:44)
--- NOTE | 2019-01-12 11:13 | PN ---
Progress Note, Physician Chief Complaint: patient seen and examined - Current Medication List Current Medications: Active Medications Al Hydroxide/Mg Hydroxide (Mylanta Oral Suspension -) 30 ml PO Q6H PRN PRN Reason: INDIGESTION Last Admin: 01/08/19 16:39 Dose: 30 ml Artificial Tears (Artificial Tears Ointment -) 1 applic OD HS PRN PRN Reason: DRY EYES Aspirin (Asa -) 81 mg PO DAILY [facility] Last Admin: 01/12/19 09:39 Dose: 81 mg Atorvastatin Calcium (Lipitor -) 80 mg PO HS [facility] Last Admin: 01/11/19 21:21 Dose: 80 mg Buspirone HCl 10 mg/ Buspirone (HCl 5 mg) 15 mg PO BID [facility] Last Admin: 01/12/19 09:41 Dose: 15 mg Calcium Carbonate/Cholecalciferol (Os-Kyler 500+D -) 1 tab PO BID [facility] Last Admin: 01/12/19 09:39 Dose: 1 tab Clopidogrel Bisulfate (Plavix -) 75 mg PO DAILY [facility] Last Admin: 01/12/19 09:39 Dose: 75 mg Furosemide (Lasix -) 40 mg PO BID@0600,1400 [facility] Last Admin: 01/12/19 06:00 Dose: 40 mg Heparin Sodium (Porcine) (Heparin -) 5,000 unit SQ BID [facility] Last Admin: 01/12/19 09:40 Dose: 5,000 unit Levofloxacin (Levaquin 500 Mg Premixed Ivpb -) 500 mg in 100 mls @ 100 mls/hr IVPB DAILY [facility]; Protocol Last Admin: 01/12/19 09:53 Dose: 100 mls/hr Insulin Aspart (Novolog Vial Sliding Scale -) 1 vial SQ ACHS [facility]; Protocol Last Admin: 01/12/19 06:01 Dose: Not Given Insulin Detemir (Levemir Vial) 10 units SQ DAILY@0700 [facility] Last Admin: 01/12/19 06:01 Dose: Not Given Methadone HCl (Dolophine -) 30 mg PO DAILY [facility] Last Admin: 01/12/19 09:39 Dose: 30 mg Methylnaltrexone [place] (Relistor -) 12 mg SQ Q2D@1000 [facility] Last Admin: 01/12/19 09:40 Dose: 12 mg Metoprolol Tartrate (Lopressor -) 50 mg PO BID [facility] Last Admin: 01/12/19 09:39 Dose: 50 mg Oxycodone HCl (Roxicodone -) 10 mg PO Q6H PRN PRN Reason: PAIN LEVEL 6-10 Last Admin: 01/12/19 04:29 Dose: 10 mg Pantoprazole Sodium (Protonix Packets For Oral Suspension -) 40 mg PO DAILY [facility] Last Admin: 01/12/19 09:39 Dose: 40 mg Polyethylene Glycol (Miralax (For Daily Use) -) 17 gm PO BID [facility] Last Admin: 01/12/19 09:44 Dose: 17 gm Fluticasone/Salmeterol (Advair 100mcg/50mcg -) 1 puff IH BID [facility] Last Admin: 01/12/19 09:43 Dose: 1 puff Sertraline HCl (Zoloft -) 50 mg PO DAILY [facility] Last Admin: 01/12/19 09:39 Dose: 50 mg Tamsulosin HCl (Flomax -) 0.8 mg PO DAILY@0830 [facility] Last Admin: 01/12/19 09:40 Dose: 0.8 mg Tiotropium [place] (Spiriva Respimat) 2 puff IH DAILY [facility] Last Admin: 01/12/19 09:43 Dose: 2 puff Valacyclovir HCl (Valtrex -) 500 mg PO DAILY [facility] Last Admin: 01/12/19 09:39 Dose: 500 mg - Objective Vital Signs: Vital Signs Temperature 97.9 F 01/12/19 06:00 Pulse Rate 64 01/12/19 06:00 Respiratory Rate 18 01/12/19 06:00 Blood Pressure 138/69 01/12/19 06:00 O2 Sat by Pulse Oximetry (%) 98 01/11/19 21:00 Constitutional: Yes: Calm Cardiovascular: Yes: Regular Rate and Rhythm, S1, S2 Respiratory: Yes: CTA Bilaterally Gastrointestinal: Yes: Normal Bowel Sounds, Soft Edema: No Neurological: Yes: Alert, Oriented Labs: CBC, BMP 01/10/19 06:30 01/10/19 06:30 INR, PTT INR 1.19 (0.83-1.09) H 01/01/19 16:40 Problem List - Problems (1) Hypoglycemia Assessment/Plan: now improved Code(s): E16.2 - HYPOGLYCEMIA, UNSPECIFIED (2) Elevated troponin Assessment/Plan: telemetry cardiology trend troponin- trending down asprin,plavix metoprolol bid lipitor low BP noted- now improved Code(s): R74.8 - ABNORMAL LEVELS OF OTHER SERUM ENZYMES (3) Narcotic dependence Assessment/Plan: prior IVDA taper methadone dose today will give 30mg and then from tmw decrease to 20mg daily his bottle of methadone is at [facility] Code(s): F11.20 - OPIOID DEPENDENCE, UNCOMPLICATED (4) Constipation Assessment/Plan: relistor Code(s): K59.00 - CONSTIPATION, UNSPECIFIED (5) CKD (chronic kidney disease) Assessment/Plan: bun/cr much improved Code(s): N18.9 - CHRONIC KIDNEY DISEASE, UNSPECIFIED (6) Anemia Assessment/Plan: Multiple myloma heme on board h/h stable Code(s): D64.9 - ANEMIA, UNSPECIFIED (7) Respiratory distress Assessment/Plan: iv lasix bid change to po lasix bid cxr improving nasal oxygen Code(s): R06.03 - ACUTE RESPIRATORY DISTRESS Assessment/Plan check pre post for home oxygen dc today
--- NOTE | 2019-01-12 11:38 | PN ---
Physical Exam: SUBJECTIVE: Patient seen and examined at bedside. Offers no new complaints at this point. OBJECTIVE: Vital Signs Temperature 97.9 F 01/12/19 06:00 Pulse Rate 64 01/12/19 06:00 Respiratory Rate 18 01/12/19 06:00 Blood Pressure 138/69 01/12/19 06:00 O2 Sat by Pulse Oximetry (%) 98 01/11/19 21:00 GENERAL: The patient is awake, alert, in no acute distress. EYES: extraocular movements intact. ENT: Ears normal, nares patent LUNGS: Rales at b/l bases HEART: Regular rate and rhythm, S1, S2 ABDOMEN: Soft, nontender EXTREMITIES: no edema. SKIN: Warm, dry Laboratory Results - last 24 hr 01/11/19 01/11/19 01/11/19 12:01 17:29 21:19 POC Glucometer 138 127 289 01/12/19 01/12/19 01:33 05:54 POC Glucometer 122 131 Active Medications Generic Name Dose Route Start Last Admin Trade Name Freq PRN Reason Stop Dose Admin Al Hydroxide/Mg Hydroxide 30 ml 01/03/19 11:35 01/08/19 16:39 Mylanta Oral Suspension - PO 30 ml Q6H PRN Administration INDIGESTION Artificial Tears 1 applic 01/01/19 19:22 Artificial Tears Ointment - OD HS PRN DRY EYES Aspirin 81 mg 01/02/19 10:00 01/12/19 09:39 Asa - PO 81 mg DAILY YAKOV Administration Atorvastatin Calcium 80 mg 01/01/19 22:00 01/11/19 21:21 Lipitor - PO 80 mg HS YAKOV Administration Buspirone HCl 10 mg/ Buspirone 15 mg 01/04/19 10:00 01/12/19 09:41 HCl 5 mg PO 15 mg BID YAKOV Administration Calcium Carbonate/Cholecalciferol 1 tab 01/02/19 10:00 01/12/19 09:39 Os-[place] 500+D - PO 1 tab BID [facility]AKOV Administration Clopidogrel Bisulfate 75 mg 01/05/19 10:00 01/12/19 09:39 Plavix - PO 75 mg DAILY [facility]AK[facility] Administration Furosemide 40 mg 01/09/19 06:00 01/12/19 06:00 Lasix - PO 40 mg BID@0600,1400 YAKOV Administration Heparin Sodium (Porcine) 5,000 unit 01/06/19 22:00 01/12/19 09:40 Heparin - SQ 5,000 unit BID [facility]AKOV Administration Levofloxacin 500 mg in 100 mls @ 100 mls/hr 01/09/19 11:30 01/12/19 09:53 Levaquin 500 Mg Premixed Ivpb - IVPB 100 mls/hr DAILY [facility]AK[facility] Administration Protocol Insulin Aspart 1 vial 01/01/19 22:00 01/12/19 06:01 Novolog Vial Sliding Scale - SQ Not Given ACHS [facility] Protocol Insulin Detemir 10 units 01/05/19 11:40 01/12/19 06:01 Levemir Vial SQ Not Given DAILY@0700 YAKOV Methadone HCl 30 mg 01/07/19 10:00 01/12/19 09:39 Dolophine - PO 30 mg DAILY [facility] Administration Methylnaltrexone [place] 12 mg 01/04/19 10:00 01/12/19 09:40 Relistor - SQ 12 mg Q2D@1000 YAKOV Administration Metoprolol Tartrate 50 mg 01/06/19 14:43 01/12/19 09:39 Lopressor - PO 50 mg BID [facility]AKOV Administration Oxycodone HCl 10 mg 01/11/19 08:48 01/12/19 04:29 Roxicodone - PO 10 mg Q6H PRN Administration PAIN LEVEL 6-10 Pantoprazole Sodium 40 mg 01/02/19 10:00 01/12/19 09:39 Protonix Packets For Oral Suspension - PO 40 mg DAILY [facility] Administration Polyethylene Glycol 17 gm 01/05/19 22:00 01/12/19 09:44 Miralax (For Daily Use) - PO 17 gm BID [facility]AKOV Administration Fluticasone/Salmeterol 1 puff 01/01/19 22:00 01/12/19 09:43 Advair 100mcg/50mcg - IH 1 puff BID [facility]AKOV Administration Sertraline HCl 50 mg 01/02/19 10:00 01/12/19 09:39 Zoloft - PO 50 mg DAILY [facility] Administration Tamsulosin HCl 0.8 mg 01/10/19 08:27 01/12/19 09:40 Flomax - PO 0.8 mg DAILY@0830 YAKOV Administration Tiotropium [place] 2 puff 01/02/19 10:00 01/12/19 09:43 Spiriva Respimat IH 2 puff DAILY [facility]AKOV Administration Valacyclovir HCl 500 mg 01/02/19 10:00 01/12/19 09:39 Valtrex - PO 500 mg DAILY [facility] Administration ASSESSMENT/PLAN: 63 y/o M recently diagnosed with multiple myeloma and recent admission for pna requiring intubation and d/cd to rehab. He took insulin sc and was found to obtunded and diaphoretic and brought to ER. Multiple myeloma -s/p RT to L spine epidural dz/left acetabulum -s/p velcade/cytoxan/de -to f/u as outpatient with Dr. Grady -ready for d/c from heme/onc standpoint Visit type - Emergency Visit Emergency Visit: Yes ED Registration Date: 01/04/19 Care time: The patient presented to the Emergency Department on the above date and was hospitalized for further evaluation of their emergent condition. - New Patient This patient is new to me today: Yes Date on this admission: 01/12/19 - Critical Care Critical Care patient: No
--- NOTE | 2019-01-12 12:42 | PN ---
Progress Note (short form) - Note Progress Note: PAtient seen and examined Denies any complaints Alert/oriented sykes d/cd reluctant to start meloma therapy Last Vital Signs Temp Pulse Resp BP Pulse Ox 99.2 F 98 H 19 158/90 92 L 01/12/19 10:00 01/12/19 11:51 01/12/19 10:00 01/12/19 10:00 01/12/19 11:51 Cor: RSR, No murmurs, No gallops Lungs: Clear to P&A Abd: Soft, Normal bowel sounds, No organomegaly Ext:No significant edema Labs/Meds reviewed Active Medications Al Hydroxide/Mg Hydroxide (Mylanta Oral Suspension -) 30 ml PO Q6H PRN PRN Reason: INDIGESTION Last Admin: 01/08/19 16:39 Dose: 30 ml Artificial Tears (Artificial Tears Ointment -) 1 applic OD HS PRN PRN Reason: DRY EYES Aspirin (Asa -) 81 mg PO DAILY [facility] Last Admin: 01/12/19 09:39 Dose: 81 mg Atorvastatin Calcium (Lipitor -) 80 mg PO HS [facility] Last Admin: 01/11/19 21:21 Dose: 80 mg Buspirone HCl 10 mg/ Buspirone (HCl 5 mg) 15 mg PO BID [facility] Last Admin: 01/12/19 09:41 Dose: 15 mg Calcium Carbonate/Cholecalciferol (Os-Kyler 500+D -) 1 tab PO BID [facility] Last Admin: 01/12/19 09:39 Dose: 1 tab Clopidogrel Bisulfate (Plavix -) 75 mg PO DAILY [facility] Last Admin: 01/12/19 09:39 Dose: 75 mg Furosemide (Lasix -) 40 mg PO BID@0600,1400 [facility] Last Admin: 01/12/19 06:00 Dose: 40 mg Heparin Sodium (Porcine) (Heparin -) 5,000 unit SQ BID [facility] Last Admin: 01/12/19 09:40 Dose: 5,000 unit Levofloxacin (Levaquin 500 Mg Premixed Ivpb -) 500 mg in 100 mls @ 100 mls/hr IVPB DAILY [facility]; Protocol Last Admin: 01/12/19 09:53 Dose: 100 mls/hr Insulin Aspart (Novolog Vial Sliding Scale -) 1 vial SQ ACHS [facility]; Protocol Last Admin: 01/12/19 11:42 Dose: 2 unit Insulin Detemir (Levemir Vial) 10 units SQ DAILY@0700 [facility] Last Admin: 01/12/19 06:01 Dose: Not Given Methadone HCl (Dolophine -) 30 mg PO DAILY [facility] Last Admin: 01/12/19 09:39 Dose: 30 mg Methylnaltrexone [place] (Relistor -) 12 mg SQ Q2D@1000 [facility] Last Admin: 01/12/19 09:40 Dose: 12 mg Metoprolol Tartrate (Lopressor -) 50 mg PO BID [facility] Last Admin: 01/12/19 09:39 Dose: 50 mg Oxycodone HCl (Roxicodone -) 10 mg PO Q6H PRN PRN Reason: PAIN LEVEL 6-10 Last Admin: 01/12/19 04:29 Dose: 10 mg Pantoprazole Sodium (Protonix Packets For Oral Suspension -) 40 mg PO DAILY [facility] Last Admin: 01/12/19 09:39 Dose: 40 mg Polyethylene Glycol (Miralax (For Daily Use) -) 17 gm PO BID [facility] Last Admin: 01/12/19 09:44 Dose: 17 gm Fluticasone/Salmeterol (Advair 100mcg/50mcg -) 1 puff IH BID [facility] Last Admin: 01/12/19 09:43 Dose: 1 puff Sertraline HCl (Zoloft -) 50 mg PO DAILY [facility] Last Admin: 01/12/19 09:39 Dose: 50 mg Tamsulosin HCl (Flomax -) 0.8 mg PO DAILY@0830 [facility] Last Admin: 01/12/19 09:40 Dose: 0.8 mg Tiotropium [place] (Spiriva Respimat) 2 puff IH DAILY [facility] Last Admin: 01/12/19 09:43 Dose: 2 puff Valacyclovir HCl (Valtrex -) 500 mg PO DAILY [facility] Last Admin: 01/12/19 09:39 Dose: 500 mg A/P 63 yo man recently diagnosed with multiple. myeloma, recently discharged from inpatient- (was in ICU intubated for pneumonia and respiratory failure) to rehab facility. He signed himself out of rehab and took insulin sc dose and was later found to be obtunded and diaphoretic, shakey, glucometer was not readable. He was then brought to the hospital and received d50 IV, after which his mental status returned to baseline. Echocardiogram showed EF 45-50% without regional variability. Unchanged from echo done 11/2018. ECG with anterior wall T wave inversions. myeloma--s/p rt to l spine episural disease/left acetabulum s/p velcade/cytoxan/dex given recent course and critical illness neuropathy will switch to revlimid discussed with daughters on 01/06/19 ? consider revlimid/dexamethasone versus melphalan/prednisone Another episode of pulmonary edema/NSTEMI Cardiology f/u pseudomonal UTI --swithced from zosyn to levaquin d/c planning with home services/physical therapy
--- NOTE | 2019-01-12 15:21 | PN ---
Progress Note, Physician History of Present Illness: Pt seen and examined at bedside. He is awake and alert. He denies shortness of breath at rest. He does require oxygen. - Current Medication List Current Medications: Active Medications Al Hydroxide/Mg Hydroxide (Mylanta Oral Suspension -) 30 ml PO Q6H PRN PRN Reason: INDIGESTION Last Admin: 01/08/19 16:39 Dose: 30 ml Artificial Tears (Artificial Tears Ointment -) 1 applic OD HS PRN PRN Reason: DRY EYES Aspirin (Asa -) 81 mg PO DAILY [facility] Last Admin: 01/12/19 09:39 Dose: 81 mg Atorvastatin Calcium (Lipitor -) 80 mg PO HS [facility] Last Admin: 01/11/19 21:21 Dose: 80 mg Buspirone HCl 10 mg/ Buspirone (HCl 5 mg) 15 mg PO BID [facility] Last Admin: 01/12/19 09:41 Dose: 15 mg Calcium Carbonate/Cholecalciferol (Os-Kyler 500+D -) 1 tab PO BID [facility] Last Admin: 01/12/19 09:39 Dose: 1 tab Clopidogrel Bisulfate (Plavix -) 75 mg PO DAILY [facility] Last Admin: 01/12/19 09:39 Dose: 75 mg Furosemide (Lasix -) 40 mg PO BID@0600,1400 [facility] Last Admin: 01/12/19 13:21 Dose: 40 mg Heparin Sodium (Porcine) (Heparin -) 5,000 unit SQ BID [facility] Last Admin: 01/12/19 09:40 Dose: 5,000 unit Levofloxacin (Levaquin 500 Mg Premixed Ivpb -) 500 mg in 100 mls @ 100 mls/hr IVPB DAILY [facility]; Protocol Last Admin: 01/12/19 09:53 Dose: 100 mls/hr Insulin Aspart (Novolog Vial Sliding Scale -) 1 vial SQ ACHS [facility]; Protocol Last Admin: 01/12/19 11:42 Dose: 2 unit Insulin Detemir (Levemir Vial) 10 units SQ DAILY@0700 [facility] Last Admin: 01/12/19 06:01 Dose: Not Given Methadone HCl (Dolophine -) 30 mg PO DAILY [facility] Last Admin: 01/12/19 09:39 Dose: 30 mg Methylnaltrexone [place] (Relistor -) 12 mg SQ Q2D@1000 [facility] Last Admin: 01/12/19 09:40 Dose: 12 mg Metoprolol Tartrate (Lopressor -) 50 mg PO BID [facility] Last Admin: 01/12/19 09:39 Dose: 50 mg Oxycodone HCl (Roxicodone -) 10 mg PO Q6H PRN PRN Reason: PAIN LEVEL 6-10 Last Admin: 01/12/19 04:29 Dose: 10 mg Pantoprazole Sodium (Protonix Packets For Oral Suspension -) 40 mg PO DAILY [facility] Last Admin: 01/12/19 09:39 Dose: 40 mg Polyethylene Glycol (Miralax (For Daily Use) -) 17 gm PO BID [facility] Last Admin: 01/12/19 09:44 Dose: 17 gm Fluticasone/Salmeterol (Advair 100mcg/50mcg -) 1 puff IH BID [facility] Last Admin: 01/12/19 09:43 Dose: 1 puff Sertraline HCl (Zoloft -) 50 mg PO DAILY [facility] Last Admin: 01/12/19 09:39 Dose: 50 mg Tamsulosin HCl (Flomax -) 0.8 mg PO DAILY@0830 [facility] Last Admin: 01/12/19 09:40 Dose: 0.8 mg Tiotropium [place] (Spiriva Respimat) 2 puff IH DAILY [facility] Last Admin: 01/12/19 09:43 Dose: 2 puff Valacyclovir HCl (Valtrex -) 500 mg PO DAILY [facility] Last Admin: 01/12/19 09:39 Dose: 500 mg - Objective Vital Signs: Vital Signs Temperature 99.2 F 01/12/19 10:00 Pulse Rate 98 H 01/12/19 11:51 Respiratory Rate 01/12/19 10:00 Blood Pressure 158/90 01/12/19 10:00 O2 Sat by Pulse Oximetry (%) 92 L 01/12/19 11:51 Constitutional: Yes: Calm Eyes: Yes: Conjunctiva Clear HENT: Yes: Atraumatic Cardiovascular: Yes: S1, S2 Respiratory: Yes: On Nasal O2 Gastrointestinal: Yes: Soft Genitourinary: Yes: WNL Musculoskeletal: Yes: WNL Edema: No Neurological: Yes: Oriented Psychiatric: Yes: Oriented Labs: CBC, BMP 01/10/19 06:30 01/10/19 06:30 INR, PTT INR 1.19 (0.83-1.09) H 01/01/19 16:40 Assessment/Plan Current Medications Generic Name Dose Route Start Last Admin Trade Name Owenq PRN Reason Stop Dose Admin Al Hydroxide/Mg Hydroxide 30 ml 01/03/19 11:35 01/08/19 16:39 Mylanta Oral Suspension - PO 30 ml Q6H PRN Administration INDIGESTION Artificial Tears 1 applic 01/01/19 19:22 Artificial Tears Ointment - OD HS PRN DRY EYES Aspirin 81 mg 01/02/19 10:00 01/12/19 09:39 Asa - PO 81 mg DAILY [facility] Administration Atorvastatin Calcium 80 mg 01/01/19 22:00 01/11/19 21:21 Lipitor - PO 80 mg HS [facility] Administration Buspirone HCl 10 mg/ Buspirone 15 mg 01/04/19 10:00 01/12/19 09:41 HCl 5 mg PO 15 mg BID [facility] Administration Calcium Carbonate/Cholecalciferol 1 tab 01/02/19 10:00 01/12/19 09:39 Os-Kyler 500+D - PO 1 tab BID [facility] Administration Clopidogrel Bisulfate 75 mg 01/05/19 10:00 01/12/19 09:39 Plavix - PO 75 mg DAILY [facility] Administration Furosemide 40 mg 01/09/19 06:00 01/12/19 13:21 Lasix - PO 40 mg BID@0600,1400 [facility] Administration Heparin Sodium (Porcine) 5,000 unit 01/06/19 22:00 01/12/19 09:40 Heparin - SQ 5,000 unit BID [facility] Administration Levofloxacin 500 mg in 100 mls @ 100 mls/hr 01/09/19 11:30 01/12/19 09:53 Levaquin 500 Mg Premixed Ivpb - IVPB 100 mls/hr DAILY [facility] Administration Protocol Insulin Aspart 1 vial 01/01/19 22:00 01/12/19 11:42 Novolog Vial Sliding Scale - SQ 2 unit ACHS [facility] Administration Protocol Insulin Detemir 10 units 01/05/19 11:40 01/12/19 06:01 Levemir Vial SQ Not Given DAILY@0700 [facility] Methadone HCl 30 mg 01/07/19 10:00 01/12/19 09:39 Dolophine - PO 30 mg DAILY [facility] Administration Methylnaltrexone [place] 12 mg 01/04/19 10:00 01/12/19 09:40 Relistor - SQ 12 mg Q2D@1000 [facility] Administration Metoprolol Tartrate 50 mg 01/06/19 14:43 01/12/19 09:39 Lopressor - PO 50 mg BID [facility] Administration Oxycodone HCl 10 mg 01/11/19 08:48 01/12/19 04:29 Roxicodone - PO 10 mg Q6H PRN Administration PAIN LEVEL 6-10 Pantoprazole Sodium 40 mg 01/02/19 10:00 01/12/19 09:39 Protonix Packets For Oral Suspension - PO 40 mg DAILY [facility] Administration Polyethylene Glycol 17 gm 01/05/19 22:00 01/12/19 09:44 Miralax (For Daily Use) - PO 17 gm BID [facility] Administration Fluticasone/Salmeterol 1 puff 01/01/19 22:00 01/12/19 09:43 Advair 100mcg/50mcg - IH 1 puff BID [facility] Administration Sertraline HCl 50 mg 01/02/19 10:00 01/12/19 09:39 Zoloft - PO 50 mg DAILY [facility] Administration Tamsulosin HCl 0.8 mg 01/10/19 08:27 01/12/19 09:40 Flomax - PO 0.8 mg DAILY@0830 [facility] Administration Tiotropium [place] 2 puff 01/02/19 10:00 01/12/19 09:43 Spiriva Respimat IH 2 puff DAILY [facility] Administration Valacyclovir HCl 500 mg 01/02/19 10:00 01/12/19 09:39 Valtrex - PO 500 mg DAILY [facility] Administration Impression 1. hyponatremia 2. CKD 3. hypoglycemia 4. htn 5. DM 6. 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 multiple myeloma 9. anemia 10. proteinuria 11. hyperkalemia 12. NSTEMI Plan - will see pt in office - he says he will follow up - avoid nsaids, discussed with pt - discussed diet - no new labs
[2019-01-12 16:26] VITALS: BP 138/54; PULSE 78; TEMP 97.6
== END 2019-01-12 17:03 | disposition home or self-care (01) | DRG 917 ==
LOC: JER 16:00 → JERBED 19:04 → J4S 01-02 18:10 → OBSVTOIN 01-04 11:10
PROVIDERS: ADMIT Internal Medicine; ATTEND Family Medicine
PROC: 30233N1 Transfusion of Nonautologous Red Blood Cells into Peripheral Vein, Percutaneous Approach (ICD-10-PCS; principal; 2019-01-07)
DX: T38.3X1A Poisoning by insulin and oral hypoglycemic [antidiabetic] drugs, accidental (unintentional), initial encounter (principal); I21.4 Non-ST elevation (NSTEMI) myocardial infarction; I21.A1 Myocardial infarction type 2; G93.41 Metabolic encephalopathy; J96.01 Acute respiratory failure with hypoxia; F11.20 Opioid dependence, uncomplicated; N39.0 Urinary tract infection, site not specified; E87.1 Hypo-osmolality and hyponatremia; R64 Cachexia; I12.9 Hypertensive chronic kidney disease with stage 1 through stage 4 chronic kidney disease, or unspecified chronic kidney disease; E11.649 Type 2 diabetes mellitus with hypoglycemia without coma; E11.22 Type 2 diabetes mellitus with diabetic chronic kidney disease; E11.42 Type 2 diabetes mellitus with diabetic polyneuropathy; E11.319 Type 2 diabetes mellitus with unspecified diabetic retinopathy without macular edema; E11.43 Type 2 diabetes mellitus with diabetic autonomic (poly)neuropathy; F14.10 Cocaine abuse, uncomplicated; E87.5 Hyperkalemia; E78.5 Hyperlipidemia, unspecified; I73.9 Peripheral vascular disease, unspecified; N18.9 Chronic kidney disease, unspecified; Z79.4 Long term (current) use of insulin; I83.90 Asymptomatic varicose veins of unspecified lower extremity; K59.03 Drug induced constipation; T40.0X5A Adverse effect of opium, initial encounter; Y92.238 Other place in hospital as the place of occurrence of the external cause; B96.5 Pseudomonas (aeruginosa) (mallei) (pseudomallei) as the cause of diseases classified elsewhere; J44.9 Chronic obstructive pulmonary disease, unspecified; Z68.30 Body mass index [BMI] 30.0-30.9, adult; D64.9 Anemia, unspecified; B19.20 Unspecified viral hepatitis C without hepatic coma; Z89.411 Acquired absence of right great toe; F17.210 Nicotine dependence, cigarettes, uncomplicated; Y92.038 Other place in apartment as the place of occurrence of the external cause; Z79.84 Long term (current) use of oral hypoglycemic drugs
CPT/HCPCS: 36415; 36430; 36511; 36600; 71045-TC-FY; 80048; 80053; 81003; 82272; 82530; 82550; 82553; 82803; 82943; 82962; 83036; 83605; 84439; 84443; 84484; 85025; 85027; 85610; 85730; 86850; 86900; 86901; 86922; 87040; 87086; 87186; 93005; 93010; 93306-TC; 94640; 94761; 97116-GP; 97162-GP; 99285-25; G0378; J0131; J1644; J7030; P9038; P9058

== ENCOUNTER 2019-01-13 04:43 | Inpatient (IN) | payer OTHER ==
--- NOTE | 2019-01-13 04:49 | PDOC ---
History of Present Illness - General Chief Complaint: Nausea Stated Complaint: NAUSEA Time Seen by Provider: 01/13/19 04:48 - History of Present Illness Initial Comments: 01/13/19 04:49 63 year old man hx HTN, HL, IDDM c/b PVD, HCV s/p annabel, previous opioid abuse on methadone, active MM on chemo (follows w Dr. Grady, last chemo a month ago) present to the ED with nbnb vomiting x 2, diarrhea x1 nonbloody and weakness, fatigue and diffuse abdominal pain. The patient was discharged today and was set to follow with [facility] methadone clinic and takes 30mg methadone a day. He states he got oxycodone in the hospital and was not discharged on it and would like something to hold him over PMHX: Recent admission include pna requiring intubation and discharge yesterday after being found obtunded and diaphoretic. Past History - Past Medical History Allergies/Adverse Reactions: Allergies Allergy/AdvReac Type Severity Reaction Status Date / Time No Known Allergies Allergy Verified 01/13/19 05:46 Home Medications: Ambulatory Orders Acetaminophen [Tylenol .Regular Strength -] 650 mg PO Q6H PRN #0 tablet Buspirone HCl 15 mg PO BID 07/22/18 Ammonium Lactate Lotion [Lac-Hydrin 12] 1 applic TP BID PRN bottle 12/21/18 Aspirin [ASA -] 81 mg PO DAILY tab.chew 12/21/18 Atorvastatin Ca [Lipitor] 80 mg PO HS tablet 12/21/18 Calcium 500Mg/Vit-D 200 Units [Os-Kyler 500+D -] 2 tab PO DAILY tab 12/21/18 Insulin Sliding Scale [Novolog Vial Sliding Scale -] 1 vial SQ TIDAC units Methadone HCl 20 mg PO DAILY #60 tablet MDD 2 12/21/18 Ocular Lubricant Ophth Oint [Lacri-Lube S.o.p -] 1 applic OD HS PRN tube Pantoprazole Suspension [Protonix Packets For Oral Suspension -] 40 mg PO DAILY packet 12/21/18 Polyethylene Glycol 3350 [Miralax 119 gm Btl -] 17 gm PO BID bottle 12/21/18 Tamsulosin HCl [Flomax -] 0.8 mg PO DAILY@0830 cap.er.24h 12/21/18 Tiotropium [place] [Spiriva Respimat] 2 puff IH DAILY inhaler 12/21/18 Furosemide [Lasix -] 40 mg PO BID@0600,1400 #60 tablet MDD 2 01/12/19 Insulin (Levemir) [Levemir Vial] 10 units SQ DAILY@0700 #100 units 01/12/19 Methadone [Dolophine -] 30 mg PO DAILY #10 tablet MDD 1 01/12/19 Methylnaltrexone [place] [Relistor -] 12 mg SQ Q2D@1000 #10 kit 01/12/19 Metoprolol Tartrate [Lopressor -] 50 mg PO BID #30 tablet MDD 2 01/12/19 Sertraline HCl [Zoloft -] 50 mg PO DAILY #30 tablet MDD 1 01/12/19 levoFLOXacin [Levaquin -] 500 mg PO DAILY #4 tablet 01/12/19 Anemia: Yes Asthma: Yes Cancer: Yes (myeloma) Cardiac Disorders: Yes (shortness of breath) COPD: Yes Diabetes: Yes GI Disorders: Yes (hep c) HTN: Yes Hypercholesterolemia: Yes - Surgical History Lung Surgery: Yes (fx of rib from occupational fall, rib punctured lung) Orthopedic Surgery: Yes (right toe removed) - Suicide/Smoking/Psychosocial Hx Smoking History: Unknown if ever smoked Have you smoked in the past 12 months: No If you are a former smoker, when did you quit?: 1996 Information on smoking cessation initiated: No Hx Alcohol Use: No Drug/Substance Use Hx: No Substance Use Type: None Hx Substance Use Treatment: Yes *Physical Exam - Vital Signs Last Vital Signs Temp Pulse Resp BP Pulse Ox 98.8 F 103 H 20 125/67 96 01/13/19 04:45 01/13/19 04:45 01/13/19 04:45 01/13/19 04:45 01/13/19 04:45 - Physical Exam Comments: 01/13/19 06:11 shaking legs large stomach Medical Decision Making - Medical Decision Making 01/13/19 04:54 63 year old man hx HTN, HL, IDDM c/b PVD, HCV s/p harvoni, previous opioid abuse on methadone, active MM on chemo (follows w Dr. Grady, last chemo a month ago) present to the ED with nbnb vomiting x 2, diarrhea x1 nonbloody and weakness, fatigue and diffuse abdominal pain. The patient was discharged today and was set to follow with [facility] methadone clinic and takes 30mg methadone a day. He states he got oxycodone in the hospital and was not discharged on it and would like something to hold him over ED Course: consider ddx ibnlt: opiod withdrawal HHS, r/o ACS cbc, cmp, fs, cxr 01/13/19 06:11 likely patient with opiod withdrawal, can dose clonidine *DC/Admit/Observation/Transfer Diagnosis at time of Disposition: Opioid withdrawal - Discharge Dispostion Disposition: HOME Condition at time of disposition: Fair Decision to Admit order: No - Referrals Referrals: Dl Gallegos MD [Primary Care Provider] - - Patient Instructions Printed Discharge Instructions: DI for Drug or Alcohol Withdrawal Additional Instructions: You were seen in the ED for fatigue, vomiting and some diarrhea after stopping opioids while in the hospital. You were treated with Clonidine to help withdrawal symptoms. You should clinical improvement and can be discharged to your Methadone Clinic. Return to the ED immediately if you experience chest pain, shortness of breath, worsening tremors, blood in the vomit or stool or fevers. - Post Discharge Activity
[2019-01-13] MEDS ORDERED: SODIUM CHLORIDE 1,000 ML IV SCH ×2 (06:00→16:15)
[2019-01-13] MEDS ORDERED: cloNIDine HCL 0.1 MG TABLET PO ONE (06:06)
--- NOTE | 2019-01-13 06:15 | PDOC ---
Attending Attestation - Resident Resident Name: Jinny Blackburn - ED Attending Attestation I have performed the following: I have examined & evaluated the patient, The case was reviewed & discussed with the resident, I agree w/resident's findings & plan, Exceptions are as noted - HPI HPI: 01/13/19 06:37 63M pmh DM, HLD, HTN, PVD, HCV, opioid abuse, MM on chemo here with a day of nausea, vomiting, diarrhea, fatigue. Pt was discharged yesterday after recent inpatient stay for dehydration, iatrogenic hypoglycemia, NSTEMI. Pt was on opioid px medication during in patient stay. He has methadone maintenenace at the [facility] but was not able to make it. - Physicial Exam PE: 01/13/19 07:32 VS noted in EMR, pt appears uncomfortable, no acute distress NCAT, PERRL Neck supple HR 84 at bedside, regular Abd soft, nt, no guarding, no rebound NFD - Medical Decision Making 01/13/19 07:33 Pt recently discharged here with n/v/d, tachycardia, symptoms likely consistent with early opioid withdrawal clonidine, ivf, f/u labs if symptoms, vs normalize, no derangements on labs dc for follow up today in [facility] methadone clinic
[2019-01-13 06:34] LABS: BASO % 0.3 % (0-2.0); EOS % 0.5 % (0-4.5); HEMOGLOBIN 10.6 GM/dL (11.7-16.9); MCH 29.5 pg (25.7-33.7); MCHC 34.1 g/dl (32.0-35.9); MEAN CELL VOLUME 86.7 fl (80-96); MEAN PLT VOLUME 8.2 fl (7.5-11.1); MONO % 6.1 % (3.8-10.2); NEUT % 82.1 % (42.8-82.8); PLATELET COUNT 184 K/MM3 (134-434); RBC 3.57 M/mm3 (4.00-5.60); RDW 16.9 % (11.9-15.9); WHITE BLOOD COUNT 5.6 K/mm3 (4.0-10.0)
[2019-01-13] MEDS ORDERED: cloNIDine HCL 0.1 MG TABLET ONE (06:37)
[2019-01-13 06:59] LABS: ALK PHOS 82 U/L (45-117); ANION GAP 10 MMOL/L (8-16); BILIRUBIN,TOTAL 0.4 mg/dL (0.2-1); BLOOD UREA NITROGEN 21 mg/dL (7-18); CALCIUM 7.9 mg/dL (8.5-10.1); CHLORIDE 95 mmol/L (98-107); CO2 26 mmol/L (21-32); CREATININE 1.3 mg/dL (0.55-1.3); GLUCOSE,RANDOM 172 mg/dL (74-106); POTASSIUM 3.5 mmol/L (3.5-5.1); SGOT/AST 15 U/L (15-37); SGPT/ALT 17 U/L (13-61); SODIUM 131 mmol/L (136-145); TOT PROT 6.3 g/dl (6.4-8.2)
--- NOTE | 2019-01-13 07:40 | PDOC ---
*Physical Exam - Vital Signs Last Vital Signs Temp Pulse Resp BP Pulse Ox 98.8 F 91 H 16 114/63 95 01/13/19 04:45 01/13/19 06:40 01/13/19 06:40 01/13/19 06:40 01/13/19 06:40 - Physical Exam Comments: 01/13/19 08:07 General Appearance: Nourished. Anxious appearing on exam. No Apparent Distress HEENT: EOMI, [place]. No Pharyngeal Erythema, Tonsillar Exudate, Tonsillar Erythema Neck: No Cervical Lymphadenopathy Respiratory/Chest: Lungs Clear, Normal Breath Sounds. No Crackles, Rales, Rhonchi, Wheezing Cardiovascular: Regular Rhythm, Regular Rate. No Murmur, Gallops, Rubs Gastrointestinal/Abdominal: Normal Bowel Sounds, Soft. No Guarding, Rebound, Tenderness Musculoskeletal: No CVA Tenderness Extremity: Normal Capillary Refill Integumentary: Normal Color, Dry, Warm Neurologic: Tremulous in all extremities. Fully Oriented, Alert, Normal Mood/ Affect, Normal Response, ED Treatment Course - LABORATORY CBC & Chemistry Diagram: 01/13/19 06:00 01/13/19 05:43 - ADDITIONAL ORDERS Additional order review: Laboratory Results 01/13/19 01/13/19 06:12 05:43 Sodium 131 L Potassium 3.5 Chloride 95 L Carbon Dioxide 26 Anion Gap 10 BUN 21 H Creatinine 1.3 Creat Clearance w eGFR 55.40 POC Glucometer 178 Random Glucose 172 H Calcium 7.9 L Total Bilirubin 0.4 AST 15 ALT 17 Alkaline Phosphatase 82 Total Protein 6.3 L Albumin 3.0 L 01/13/19 01/13/19 06:12 06:00 RBC 3.57 L MCV 86.7 MCHC 34.1 RDW 16.9 H MPV 8.2 Neutrophils % 82.1 Lymphocytes % 11.0 D Monocytes % 6.1 Eosinophils % 0.5 Basophils % 0.3 POC Glucometer 178 - Medications Given in the ED: ED Medications Discontinued Medications Generic Name Dose Route Start Last Admin Trade Name Freq PRN Reason Stop Dose Admin Clonidine 0.1 mg 01/13/19 06:06 01/13/19 06:42 Catapres - PO 01/13/19 06:07 0.1 mg ONCE ONE Administration Sodium Chloride 1,000 mls @ 0 mls/hr 01/13/19 06:00 01/13/19 06:42 Normal Saline - IV Not Given ASDIR YAKOV Wide Open Progress Note - Progress Note Progress Note: The patient is a 63 year old male with history of Multiple Myloma, NSTEMI, CKD, UTI who presented for nausea, vomiting, diarrhea, shortness of breath, and weakness after recent discharge yesterday evening. The patient is pending CMP and reassessment. Medical Decision Making - Medical Decision Making 01/13/19 08:09 CMP is unremarkable. The patient reports continued symptoms on exam and has a COWs score of 15 on exam. The patient notes that he does have a methadone clinic, however is unable to make it to the clinic due to severe weakness. He notes difficulty ambulating at home and performing ADLs due to his weakness and shortness of breath. The patient appears to have failed home discharge and will require observation for further management of his symptoms and discharge planning. 01/13/19 09:12 We called the patient's Methadone Clinic at [facility] in the [place] and confirmed dosage of 30mg of Methadone with CESAR Jaime. We will treat the patient with 30mg of Methadone here in the ED. 01/13/19 09:49 We discussed the case with Dr. Alonzo who is covering for Dr. Gallegos and the patient as been accepted for observation admission. *DC/Admit/Observation/Transfer Diagnosis at time of Disposition: Opioid withdrawal - Discharge Dispostion Condition at time of disposition: Fair Decision to Admit order: Yes - Referrals Referrals: Dl Gallegos MD [Primary Care Provider] - - Patient Instructions - Post Discharge Activity
[2019-01-13] MEDS ORDERED: METHADONE HCL 10 MG TABLET PO ONE (08:52)
[2019-01-13] MEDS ORDERED: METHADONE HCL 10 MG TABLET ONE (09:09)
--- NOTE | 2019-01-13 10:22 | EKG ---
Test Reason : Blood Pressure : / mmHG Vent. Rate : 077 BPM Atrial Rate : 077 BPM P-R Int : 176 ms QRS Dur : 076 ms QT Int : 440 ms P-R-T Axes : 041 018 269 degrees QTc Int : 497 ms NORMAL SINUS RHYTHM PROLONGED QT ABNORMAL ECG WHEN COMPARED WITH ECG OF 04-JAN-2019 20:56, NONSPECIFIC T WAVE ABNORMALITY, WORSE IN INFERIOR LEADS QT HAS LENGTHENED Confirmed by BERTA SMITH, ANTHONY ([id number]) on 01/13/2019 10:22:34 AM Referred By: Confirmed By:ANTHONY HAMPTON MD
[2019-01-13] MEDS ORDERED: POLYETHYLENE GLYCOL 3350 119 GM BTL PO ONE (10:33)
[2019-01-13 14:43] VITALS: BMI 31.3
--- NOTE | 2019-01-13 16:17 | HP ---
Admitting History and Physical - Admission Chief Complaint: came in for unsteady gait with walk and pain in back History of Present Illness: 3M pmh DM, HLD, HTN, PVD, HCV, opioid abuse, MM on chemo here with a day of nausea, vomiting, diarrhea, fatigue. Pt was discharged yesterday after recent inpatient stay for dehydration, iatrogenic hypoglycemia, NSTEMI. Pt was on opioid px medication during in patient stay. He has methadone maintenenace at the [facility] but was not able to make per patient he is undergoing oxycodone withdrawal and he was not able to make it to 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) Cardiovascular: Yes: CHF, HTN, Hyperlipdemia, [place] Pulmonary: Yes: Asthma, Other (left chest tube for rib fracture related pneumothorax afte a fall) Gastrointestinal: Yes: Constipation, Other Hepatobiliary: Yes: Hepatitis C (cured several years ago with Dr Bedolla) Renal/: Yes: Renal Inusuff Heme/Onc: Yes: Cancer (Multiple myeloma -received a course of RT and Velban/ cytoxan/dexamathasone) Infectious Disease: Yes: Other (Hepatitis C cured) Psych: Yes: Depression Musculoskeletal: Yes: Chronic low back pain (multiple thoracolumbar vertebral pathological fractures), Other (multiple thoracolumbar vertebral fractures) Endocrine: Yes: Diabetes Mellitus Dermatology: Yes: Other (varicose veins) - Past Surgical History Past Surgical History: Yes: Amputation (5th digit R foot), Tonsillectomy - Smoking History Smoking history: Former smoker Have you smoked in the past 12 months: No If you are a former smoker, when did you quit?: 1996 - Alcohol/Substance Use Hx Alcohol Use: No History of Substance Use: reports: Cocaine, Heroin - Social History ADL: Independent 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 History of Recent Travel: Yes (to [place] a few months ago) Home Medications - Allergies Allergies/Adverse Reactions: Allergies Allergy/AdvReac Type Severity Reaction Status Date / Time No Known Allergies Allergy Verified 01/13/19 05:46 - Home Medications Home Medications: Ambulatory Orders Acetaminophen [Tylenol .Regular Strength -] 650 mg PO Q6H PRN #0 tablet Buspirone HCl 15 mg PO BID 07/22/18 Ammonium Lactate Lotion [Lac-Hydrin 12] 1 applic TP BID PRN bottle 12/21/18 Aspirin [ASA -] 81 mg PO DAILY tab.chew 12/21/18 Atorvastatin Ca [Lipitor] 80 mg PO HS tablet 12/21/18 Calcium 500Mg/Vit-D 200 Units [Os-Kyler 500+D -] 2 tab PO DAILY tab 12/21/18 Insulin Sliding Scale [Novolog Vial Sliding Scale -] 1 vial SQ TIDAC units Methadone HCl 20 mg PO DAILY #60 tablet MDD 2 12/21/18 Ocular Lubricant Ophth Oint [Lacri-Lube S.o.p -] 1 applic OD HS PRN tube Pantoprazole Suspension [Protonix Packets For Oral Suspension -] 40 mg PO DAILY packet 12/21/18 Polyethylene Glycol 3350 [Miralax 119 gm Btl -] 17 gm PO BID bottle 12/21/18 Tamsulosin HCl [Flomax -] 0.8 mg PO DAILY@0830 cap.er.24h 12/21/18 Tiotropium [place] [Spiriva Respimat] 2 puff IH DAILY inhaler 12/21/18 Furosemide [Lasix -] 40 mg PO BID@0600,1400 #60 tablet MDD 2 01/12/19 Insulin (Levemir) [Levemir Vial] 10 units SQ DAILY@0700 #100 units 01/12/19 Methadone [Dolophine -] 30 mg PO DAILY #10 tablet MDD 1 01/12/19 Methylnaltrexone [place] [Relistor -] 12 mg SQ Q2D@1000 #10 kit 01/12/19 Metoprolol Tartrate [Lopressor -] 50 mg PO BID #30 tablet MDD 2 01/12/19 Sertraline HCl [Zoloft -] 50 mg PO DAILY #30 tablet MDD 1 01/12/19 levoFLOXacin [Levaquin -] 500 mg PO DAILY #4 tablet 01/12/19 Family Disease History - Family Disease History Family Disease History: CA: Mother, Other: Father ( 90 natural causes), Mother, Brother Review of Systems - Review of Systems Musculoskeletal: reports: Back Pain Neurological: reports: Other (hand tremors) Physical Examination Vital Signs: Vital Signs Temperature 98.5 F 01/13/19 13:45 Pulse Rate 83 01/13/19 13:45 Respiratory Rate 20 01/13/19 13:45 Blood Pressure 131/70 01/13/19 13:45 O2 Sat by Pulse Oximetry (%) 95 01/13/19 14:50 Constitutional: Yes: Calm Cardiovascular: Yes: Regular Rate and Rhythm, S1, S2 Respiratory: Yes: CTA Bilaterally, Other (no wheezing) Gastrointestinal: Yes: Normal Bowel Sounds, Soft Edema: No Labs: CBC, BMP 01/13/19 06:00 01/13/19 05:43 Problem List - Problems (1) Hyponatremia Assessment/Plan: ivf renal eval Code(s): E87.1 - HYPO-OSMOLALITY AND HYPONATREMIA (2) Weakness Assessment/Plan: unable to ambulate PT eval Code(s): R53.1 - WEAKNESS (3) History of substance abuse Assessment/Plan: methadone will need to go to [facility] Code(s): Z87.898 - PERSONAL HISTORY OF OTHER SPECIFIED CONDITIONS (4) Diabetes Assessment/Plan: bgm sliding scale Code(s): E11.9 - TYPE 2 DIABETES MELLITUS WITHOUT COMPLICATIONS Qualifiers: Diabetes mellitus type: type 2 (5) Multiple myeloma Assessment/Plan: valtrex Code(s): C90.00 - MULTIPLE MYELOMA NOT HAVING ACHIEVED REMISSION (6) Constipation Assessment/Plan: relistor Code(s): K59.00 - CONSTIPATION, UNSPECIFIED
[2019-01-13] MEDS ORDERED: ONDANSETRON 4 MG/2 ML VIAL IVPB PRN (16:27)
[2019-01-13] MEDS: INSULIN SLIDING SCALE (NOVOLOG) 1 VIAL SQ SCH ×2 (16:56→22:11)
--- NOTE | 2019-01-13 17:29 | CONSULT ---
Consult Consult Specialty:: Nephrology Reason for Consultation:: ckd and hyponatremia - History of Present Illness Chief Complaint: did not have meds History of Present Illness: Pt is a 63 year old man with pmhx of ckd, multiple myeloma, dm, pvd and hep c s/ p annabel who presents to the ER with vomiting and diarrhea. He says that he did not have any of his meds when we went home. He did not have his pain meds and felt that he had withrawl symptoms. He currently feels much better. He denies any GI symptoms. 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: Peripheral Neuropathy (stocking glove distribution related to DM) Cardio/Vascular: Yes: CHF, HTN, Hyperlipdemia, [place] Pulmonary: Yes: Asthma, Other (left chest tube for rib fracture related pneumothorax afte a fall) Gastrointestinal: Yes: Constipation, Other Hepatobiliary: Yes: Hepatitis C (cured several years ago with Dr Bedolla) Renal/: Yes: Renal Inusuff Infectious Disease: Yes: Other (Hepatitis C cured) Psych: Yes: Depression Musculoskeletal: Yes: Chronic low back pain (multiple thoracolumbar vertebral pathological fractures), Other (multiple thoracolumbar vertebral fractures) Endocrine: Yes: Diabetes Mellitus Dermatology: Yes: Other (varicose veins) Additional Medical History: Laser therapy for diabetic retinopathy - Past Surgical History Past Surgical History: Yes: Amputation (5th digit R foot), Tonsillectomy - Alcohol/Substance Use Hx Alcohol Use: No History of Substance Use: reports: Cocaine, Heroin - Smoking History Smoking history: Former smoker Have you smoked in the past 12 months: No If you are a former smoker, when did you quit?: 1996 - Social History Usual Living Arrangement: With Spouse ADL: Independent 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 History of Recent Travel: Yes (to [place] a few months ago) Home Medications - Allergies Allergies/Adverse Reactions: Allergies Allergy/AdvReac Type Severity Reaction Status Date / Time No Known Allergies Allergy Verified 01/13/19 05:46 - Home Medications Home Medications: Ambulatory Orders Acetaminophen [Tylenol .Regular Strength -] 650 mg PO Q6H PRN #0 tablet Buspirone HCl 15 mg PO BID 07/22/18 Ammonium Lactate Lotion [Lac-Hydrin 12] 1 applic TP BID PRN bottle 12/21/18 Aspirin [ASA -] 81 mg PO DAILY tab.chew 12/21/18 Atorvastatin Ca [Lipitor] 80 mg PO HS tablet 12/21/18 Calcium 500Mg/Vit-D 200 Units [Os-Kyler 500+D -] 2 tab PO DAILY tab 12/21/18 Insulin Sliding Scale [Novolog Vial Sliding Scale -] 1 vial SQ TIDAC units Methadone HCl 20 mg PO DAILY #60 tablet MDD 2 12/21/18 Ocular Lubricant Ophth Oint [Lacri-Lube S.o.p -] 1 applic OD HS PRN tube Pantoprazole Suspension [Protonix Packets For Oral Suspension -] 40 mg PO DAILY packet 12/21/18 Polyethylene Glycol 3350 [Miralax 119 gm Btl -] 17 gm PO BID bottle 12/21/18 Tamsulosin HCl [Flomax -] 0.8 mg PO DAILY@0830 cap.er.24h 12/21/18 Tiotropium [place] [Spiriva Respimat] 2 puff IH DAILY inhaler 12/21/18 Furosemide [Lasix -] 40 mg PO BID@0600,1400 #60 tablet MDD 2 01/12/19 Insulin (Levemir) [Levemir Vial] 10 units SQ DAILY@0700 #100 units 01/12/19 Methadone [Dolophine -] 30 mg PO DAILY #10 tablet MDD 1 01/12/19 Methylnaltrexone [place] [Relistor -] 12 mg SQ Q2D@1000 #10 kit 01/12/19 Metoprolol Tartrate [Lopressor -] 50 mg PO BID #30 tablet MDD 2 01/12/19 Sertraline HCl [Zoloft -] 50 mg PO DAILY #30 tablet MDD 1 01/12/19 levoFLOXacin [Levaquin -] 500 mg PO DAILY #4 tablet 01/12/19 Family Disease History - Family Disease History Family Disease History: CA: Mother, Other: Father ( 90 natural causes), Mother, Brother Review of Systems - Review of Systems Constitutional: reports: Malaise Eyes: reports: No Symptoms HENT: reports: No Symptoms Neck: reports: No Symptoms Cardiovascular: reports: No Symptoms Respiratory: reports: No Symptoms Gastrointestinal: reports: No Symptoms Genitourinary: reports: No Symptoms Musculoskeletal: reports: No Symptoms Integumentary: reports: No Symptoms Neurological: reports: No Symptoms Endocrine: reports: No Symptoms Hematology/Lymphatic: reports: No Symptoms Physical Exam Vital Signs: Vital Signs Temperature 98.2 F 01/13/19 16:49 Pulse Rate 87 01/13/19 16:49 Respiratory Rate 20 01/13/19 16:49 Blood Pressure 146/84 01/13/19 16:49 O2 Sat by Pulse Oximetry (%) 95 01/13/19 16:10 Constitutional: Yes: Calm Eyes: Yes: Conjunctiva Clear HENT: Yes: Atraumatic Cardiovascular: Yes: S1, S2 Respiratory: Yes: CTA Bilaterally Gastrointestinal: Yes: Soft Renal/: Yes: WNL Musculoskeletal: Yes: WNL Edema: Yes Edema: LLE: Trace, RLE: Trace Neurological: Yes: Oriented Psychiatric: Yes: Oriented Labs: CBC, BMP 01/13/19 06:00 01/13/19 05:43 Problem List - Problems (1) Hyponatremia Code(s): E87.1 - HYPO-OSMOLALITY AND HYPONATREMIA (2) CKD (chronic kidney disease) Code(s): N18.9 - CHRONIC KIDNEY DISEASE, UNSPECIFIED Assessment/Plan Current Medications Generic Name Dose Route Start Last Admin Trade Name Freq PRN Reason Stop Dose Admin Aspirin 81 mg 01/14/19 10:00 Asa - PO DAILY YAKOV Atorvastatin Calcium 80 mg 01/13/19 22:00 Lipitor - PO HS YAKOV Clopidogrel Bisulfate 75 mg 01/14/19 10:00 Plavix - PO DAILY YAKOV Sodium Chloride 1,000 mls @ 50 mls/hr 01/13/19 16:15 01/13/19 16:51 Normal Saline - IV 01/14/19 16:09 50 mls/hr ASDIR YAKOV Administration Insulin Aspart 1 vial 01/13/19 16:30 01/13/19 16:56 Novolog Vial Sliding Scale - SQ Not Given ACHS YAKOV Protocol Methadone HCl 30 mg 01/14/19 06:00 Dolophine - PO DAILY@0600 YAKOV Methylnaltrexone Manquin 12 mg 01/15/19 10:00 Relistor - SQ Q2D@1000 YAKOV Metoprolol Tartrate 25 mg 01/13/19 22:00 Lopressor - PO BID YAKOV Ondansetron HCl 4 mg 01/13/19 16:27 Zofran Injection IVPB Q6H PRN NAUSEA Fluticasone/Salmeterol 1 puff 01/13/19 22:00 Advair 100mcg/50mcg - IH BID [facility] Sertraline HCl 50 mg 01/14/19 10:00 Zoloft - PO DAILY [facility] Tamsulosin HCl 0.8 mg 01/14/19 08:30 Flomax - PO DAILY@0830 [facility] Tiotropium Manquin 2 puff 01/14/19 10:00 Spiriva Respimat IH DAILY [facility] Valacyclovir HCl 500 mg 01/14/19 08:00 Valtrex - PO DAILY@0800 [facility] Impression 1. hyponatremia 2. CKD 3. hypoglycemia 4. htn 5. DM 6. 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 multiple myeloma 9. anemia 10. proteinuria 11. hyperkalemia 12. NSTEMI Plan - pt tolerating diet - stop fluids - will likely restart lasix tomorrow - monitor renal function - repeat labs in am - discussed with medical team
--- NOTE | 2019-01-13 20:02 | CONSULT ---
Consult - text type - Consultation Consultation Note: 63M pmh DM, HLD, HTN, PVD, HCV, opioid abuse, MM here with a day of nausea, vomiting, diarrhea, fatigue. Pt was discharged yesterday after recent inpatient stay for dehydration, hypoglycemia, NSTEMI. Pt was on opioid px medication during in patient stay. 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: Peripheral Neuropathy (stocking glove distribution related to DM) Cardiovascular: Yes: CHF, HTN, Hyperlipdemia, [place] Pulmonary: Yes: Asthma, Other (left chest tube for rib fracture related pneumothorax afte a fall) Gastrointestinal: Yes: Constipation, Other Hepatobiliary: Yes: Hepatitis C (cured several years ago with Dr Bedolla) Renal/: Yes: Renal Inusuff Heme/Onc: Yes: Cancer (Multiple myeloma -received a course of RT and Velban/ cytoxan/dexamathasone) Infectious Disease: Yes: Other (Hepatitis C cured) Psych: Yes: Depression Musculoskeletal: Yes: Chronic low back pain (multiple thoracolumbar vertebral pathological fractures), Other (multiple thoracolumbar vertebral fractures) Endocrine: Yes: Diabetes Mellitus Dermatology: Yes: Other (varicose veins) - Past Surgical History Past Surgical History: Yes: Amputation (5th digit R foot), Tonsillectomy - Smoking History Smoking history: Former smoker Have you smoked in the past 12 months: No If you are a former smoker, when did you quit?: 1996 - Alcohol/Substance Use Hx Alcohol Use: No History of Substance Use: reports: Cocaine, Heroin - Social History ADL: Independent 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 History of Recent Travel: Yes (to [place] a few months ago) Home Medications - Allergies Allergies/Adverse Reactions: Allergies Allergy/AdvReac Type Severity Reaction Status Date / Time No Known Allergies Allergy Verified 01/13/19 05:46 - Home Medications Home Medications: Ambulatory Orders Acetaminophen [Tylenol .Regular Strength -] 650 mg PO Q6H PRN #0 tablet Buspirone HCl 15 mg PO BID 07/22/18 Ammonium Lactate Lotion [Lac-Hydrin 12] 1 applic TP BID PRN bottle 12/21/18 Aspirin [ASA -] 81 mg PO DAILY tab.chew 12/21/18 Atorvastatin Ca [Lipitor] 80 mg PO HS tablet 12/21/18 Calcium 500Mg/Vit-D 200 Units [Os-Kyler 500+D -] 2 tab PO DAILY tab 12/21/18 Insulin Sliding Scale [Novolog Vial Sliding Scale -] 1 vial SQ TIDAC units Methadone HCl 20 mg PO DAILY #60 tablet MDD 2 12/21/18 Ocular Lubricant Ophth Oint [Lacri-Lube S.o.p -] 1 applic OD HS PRN tube Pantoprazole Suspension [Protonix Packets For Oral Suspension -] 40 mg PO DAILY packet 12/21/18 Polyethylene Glycol 3350 [Miralax 119 gm Btl -] 17 gm PO BID bottle 12/21/18 Tamsulosin HCl [Flomax -] 0.8 mg PO DAILY@0830 cap.er.24h 12/21/18 Tiotropium [employer] [Spiriva Respimat] 2 puff IH DAILY inhaler 12/21/18 Furosemide [Lasix -] 40 mg PO BID@0600,1400 #60 tablet MDD 2 01/12/19 Insulin (Levemir) [Levemir Vial] 10 units SQ DAILY@0700 #100 units 01/12/19 Methadone [Dolophine -] 30 mg PO DAILY #10 tablet MDD 1 01/12/19 Methylnaltrexone [employer] [facility] [Relistor -] 12 mg SQ Q2D@1000 #10 kit 01/12/19 Metoprolol Tartrate [Lopressor -] 50 mg PO BID #30 tablet MDD 2 01/12/19 Sertraline HCl [Zoloft -] 50 mg PO DAILY #30 tablet MDD 1 01/12/19 levoFLOXacin [Levaquin -] 500 mg PO DAILY #4 tablet 01/12/19 Family Disease History - Family Disease History Family Disease History: CA: Mother, Other: Father ( 90 natural causes), Mother, Brother Review of Systems - Review of Systems Musculoskeletal: reports: Back Pain Neurological: reports: Other (hand tremors) Physical Examination Vital Signs: Vital Signs Temperature 98.5 F 01/13/19 13:45 Pulse Rate 83 01/13/19 13:45 Respiratory Rate 20 01/13/19 13:45 Blood Pressure 131/70 01/13/19 13:45 O2 Sat by Pulse Oximetry (%) 95 01/13/19 14:50 Constitutional: Yes: Calm Cardiovascular: Yes: Regular Rate and Rhythm, S1, S2 Respiratory: Yes: CTA Bilaterally, Other (no wheezing) Gastrointestinal: Yes: Normal Bowel Sounds, Soft Edema: No Labs: CBC, BMP 01/13/19 06:00 01/13/19 05:43 a/p 63M pmh DM, HLD, HTN, PVD, HCV, opioid abuse, MM here with a day of nausea, vomiting, diarrhea, fatigue. Pt was discharged yesterday after recent inpatient stay for dehydration, hypoglycemia, NSTEMI. He has methadone maintenenace at the [facility] but was not able to make it per patient he is undergoing oxycodone withdrawal and he was not able to make it to [facility] for methadone patient wants to go [facility] refusing [facility] myeloma--s/p RT to Lspine s/p VCD will switch to revlimid/dexamethasone----discussed this with patient and his daughters in detail. they have not made a decision yet. check SFLCA dose weekly decadron endocrine consult
[2019-01-13] MEDS ORDERED: INSULIN (NOVOLOG) ASPART 100 UNITS/ML 10ML VIAL ONE (21:00)
[2019-01-13] MEDS: METOPROLOL TARTRATE 25 MG TABLET (FP) PO SCH (22:06)
[2019-01-13] MEDS: ATORVASTATIN CA 80 MG TABLET (FP) PO SCH (22:11)
[2019-01-13] MEDS: FLUTICASONE/SALMETEROL 100 MCG/50 MCG DISKUS IH SCH (22:11)
[2019-01-14] MEDS ORDERED: ACETAMINOPHEN 325 MG TABLET (FP) PO ONE (02:23)
[2019-01-14] MEDS ORDERED: LIDOCAINE 5% TOPICAL PATCH TP ONE ×2 (02:24→16:00)
[2019-01-14] MEDS: METHADONE HCL 10 MG TABLET PO SCH (05:43)
[2019-01-14] MEDS: INSULIN SLIDING SCALE (NOVOLOG) 1 VIAL SQ SCH ×4 (06:29→22:00)
[2019-01-14 08:02] LABS: HEMATOCRIT 28.5 % (35.4-49); HEMOGLOBIN 9.7 GM/dL (11.7-16.9); MCH 29.9 pg (25.7-33.7); MCHC 34.2 g/dl (32.0-35.9); MEAN CELL VOLUME 87.4 fl (80-96); MEAN PLT VOLUME 8.1 fl (7.5-11.1); PLATELET COUNT 177 K/MM3 (134-434); RBC 3.26 M/mm3 (4.00-5.60); RDW 16.7 % (11.9-15.9); WHITE BLOOD COUNT 4.8 K/mm3 (4.0-10.0)
[2019-01-14 08:37] LABS: ALBUMIN 2.7 g/dl (3.4-5.0); ALK PHOS 74 U/L (45-117); ANION GAP 8 MMOL/L (8-16); BILIRUBIN,TOTAL 0.3 mg/dL (0.2-1); BLOOD UREA NITROGEN 19 mg/dL (7-18); CALCIUM 7.7 mg/dL (8.5-10.1); CHLORIDE 98 mmol/L (98-107); CO2 26 mmol/L (21-32); GLUCOSE,RANDOM 145 mg/dL (74-106); MAGNESIUM 1.1 mg/dL (1.8-2.4); PHOSPHOROUS 3.1 mg/dL (2.5-4.9); POTASSIUM 3.6 mmol/L (3.5-5.1); SGOT/AST 15 U/L (15-37); SGPT/ALT 16 U/L (13-61); SODIUM 132 mmol/L (136-145); TOT PROT 5.4 g/dl (6.4-8.2)
--- NOTE | 2019-01-14 11:27 | PN ---
Progress Note, Physician Chief Complaint: nausea, vomiting, diarrhea, fatigue History of Present Illness: NAD +tremors pain controlled on methadone refuses SNF yvonne conde not eligible for [place] care-needs 1 person assistance with ADL's - Current Medication List Current Medications: Active Medications Aspirin (Asa -) 81 mg PO DAILY [facility] Atorvastatin Calcium (Lipitor -) 80 mg PO HS [facility] Last Admin: 01/13/19 22:11 Dose: 80 mg Clopidogrel Bisulfate (Plavix -) 75 mg PO DAILY [facility] Insulin Aspart (Novolog Vial Sliding Scale -) 1 vial SQ [facility]; Protocol Last Admin: 01/14/19 06:29 Dose: Not Given Lorazepam (Ativan -) 0.5 mg PO TID PRN PRN Reason: tremors Methadone HCl (Dolophine -) 30 mg PO DAILY@0600 [facility] Last Admin: 01/14/19 05:43 Dose: 30 mg Methylnaltrexone [place] (Relistor -) 12 mg SQ Q2D@1000 [facility] Metoprolol Tartrate (Lopressor -) 25 mg PO BID [facility] Last Admin: 01/13/19 22:06 Dose: 25 mg Miscellaneous (Lidoderm Patch Removal) 1 each [facility] ONCE ONE Stop: 01/14/19 14:31 Ondansetron HCl (Zofran Injection) 4 mg IVPB Q6H PRN PRN Reason: NAUSEA Fluticasone/Salmeterol (Advair 100mcg/50mcg -) 1 puff IH BID [facility] Last Admin: 01/13/19 22:11 Dose: 1 puff Sertraline HCl (Zoloft -) 50 mg PO DAILY [facility] Tamsulosin HCl (Flomax -) 0.8 mg PO DAILY@0830 [facility] Tiotropium [place] (Spiriva Respimat) 2 puff IH DAILY [facility] Valacyclovir HCl (Valtrex -) 500 mg PO DAILY@0800 [facility] - Objective Vital Signs: Vital Signs Temperature 97.8 F 01/14/19 06:00 Pulse Rate 77 01/14/19 06:00 Respiratory Rate 20 01/14/19 06:00 Blood Pressure 147/79 01/14/19 06:00 O2 Sat by Pulse Oximetry (%) 98 01/14/19 00:10 Constitutional: Yes: Well Nourished, No Distress, Calm Cardiovascular: Yes: Regular Rate and Rhythm Respiratory: Yes: WNL, On Nasal O2 Musculoskeletal: Yes: Muscle Weakness Extremities: Yes: WNL Edema: No Peripheral Pulses WNL: Yes Neurological: Yes: Alert, Oriented, Tremors Psychiatric: Yes: Alert, Oriented Labs: CBC, BMP 01/14/19 06:30 01/14/19 06:30 Problem List - Problems (1) Methadone maintenance therapy patient Assessment/Plan: -continue methadone 30 mg po daily -F/U at methadone clinic at [facility] o/p -spoke to breanna Hurd Code(s): F11.20 - OPIOID DEPENDENCE, UNCOMPLICATED (2) Opioid withdrawal Assessment/Plan: -Ativan 0.5 mg po TID PRN for tremors and withdrawal -Pain management Code(s): F11.23 - OPIOID DEPENDENCE WITH WITHDRAWAL (3) DARIO (acute kidney injury) Assessment/Plan: -resolved -nephrology on board Code(s): N17.9 - ACUTE KIDNEY FAILURE, UNSPECIFIED (4) History of substance abuse Code(s): Z87.898 - PERSONAL HISTORY OF OTHER SPECIFIED CONDITIONS Assessment/Plan See problem list Physical therapy
[2019-01-14] MEDS: valACYclovir HCL 500 MG TABLET (FP) PO SCH (11:30)
[2019-01-14] MEDS: TAMSULOSIN HCL 0.4 MG CAP PO SCH (11:31)
[2019-01-14] MEDS: ASPIRIN 81 MG CHEWABLE TABLETS PO SCH (11:32)
[2019-01-14] MEDS: METOPROLOL TARTRATE 25 MG TABLET (FP) PO SCH ×2 (11:32→22:00)
[2019-01-14] MEDS: SERTRALINE HCL 50 MG TABLET (FP) PO SCH (11:33)
[2019-01-14] MEDS: CLOPIDOGREL BISULFATE 75 MG TABLET (FP) PO SCH (11:33)
[2019-01-14] MEDS: LORazepam 0.5 MG TABLET PO PRN ×2 (12:18→22:01)
[2019-01-14] MEDS ORDERED: LIDOCAINE PATCH REMOVAL MC ONE ×2 (14:30→16:00)
[2019-01-14] MEDS ORDERED: PT OWN MED DRAWER 7, Y5N ONE (15:30)
[2019-01-14] MEDS: TIOTROPIUM BROMIDE 2.5 MCG (SPIRIVA) RESPIMAT INHALER IH SCH (15:57)
--- NOTE | 2019-01-14 17:42 | PN ---
Progress Note, Physician History of Present Illness: Pt seen and examined at bedside. He is awake and alert. He denies shortness of breath. - Current Medication List Current Medications: Active Medications Aspirin (Asa -) 81 mg PO DAILY [facility] Last Admin: 01/14/19 11:32 Dose: 81 mg Atorvastatin Calcium (Lipitor -) 80 mg PO HS [facility] Last Admin: 01/13/19 22:11 Dose: 80 mg Clopidogrel Bisulfate (Plavix -) 75 mg PO DAILY [facility] Last Admin: 01/14/19 11:33 Dose: 75 mg Enoxaparin Sodium (Lovenox -) 40 mg SQ DAILY [facility] Insulin Aspart (Novolog Vial Sliding Scale -) 1 vial SQ [facility], [facility]; Protocol Last Admin: 01/14/19 17:33 Dose: Not Given Lorazepam (Ativan -) 0.5 mg PO TID PRN PRN Reason: tremors Last Admin: 01/14/19 12:18 Dose: 0.5 mg Methadone HCl (Dolophine -) 30 mg PO DAILY@0600 [facility] Last Admin: 01/14/19 05:43 Dose: 30 mg Methylnaltrexone [place] (Relistor -) 12 mg SQ Q2D@1000 [facility] Metoprolol Tartrate (Lopressor -) 25 mg PO BID [facility] Last Admin: 01/14/19 11:32 Dose: 25 mg Ondansetron HCl (Zofran Injection) 4 mg IVPB Q6H PRN PRN Reason: NAUSEA Fluticasone/Salmeterol (Advair 100mcg/50mcg -) 1 puff IH BID [facility] Last Admin: 01/13/19 22:11 Dose: 1 puff Sertraline HCl (Zoloft -) 50 mg PO DAILY [facility] Last Admin: 01/14/19 11:33 Dose: 50 mg Tamsulosin HCl (Flomax -) 0.8 mg PO DAILY@0830 [facility] Last Admin: 01/14/19 11:31 Dose: 0.8 mg Tiotropium [place] (Spiriva Respimat) 2 puff IH DAILY [facility] Last Admin: 01/14/19 15:57 Dose: 2 puff Valacyclovir HCl (Valtrex -) 500 mg PO DAILY@0800 [facility] Last Admin: 01/14/19 11:30 Dose: 500 mg - Objective Vital Signs: Vital Signs Temperature 98.2 F 01/14/19 17:11 Pulse Rate 61 04/13/19 17:11 Respiratory Rate 20 01/14/19 17:11 Blood Pressure 108/62 01/14/19 17:11 O2 Sat by Pulse Oximetry (%) 98 01/14/19 00:10 Constitutional: Yes: Calm Eyes: Yes: Conjunctiva Clear HENT: Yes: Atraumatic Cardiovascular: Yes: S1, S2 Respiratory: Yes: On Nasal O2 Gastrointestinal: Yes: Soft Genitourinary: Yes: WNL Edema: LLE: Trace, RLE: Trace Neurological: Yes: Oriented Psychiatric: Yes: Oriented Labs: CBC, BMP 01/14/19 06:30 01/14/19 06:30 Problem List - Problems (1) Hyponatremia Code(s): E87.1 - HYPO-OSMOLALITY AND HYPONATREMIA (2) CKD (chronic kidney disease) Code(s): N18.9 - CHRONIC KIDNEY DISEASE, UNSPECIFIED Assessment/Plan Current Medications Generic Name Dose Route Start Last Admin Trade Name Freq PRN Reason Stop Dose Admin Aspirin 81 mg 01/14/19 10:00 01/14/19 11:32 Asa - PO 81 mg DAILY YAKOV Administration Atorvastatin Calcium 80 mg 01/13/19 22:00 01/13/19 22:11 Lipitor - PO 80 mg HS YAKOV Administration Clopidogrel Bisulfate 75 mg 01/14/19 10:00 01/14/19 11:33 Plavix - PO 75 mg DAILY YAKOV Administration Enoxaparin Sodium 40 mg 01/15/19 10:00 Lovenox - SQ DAILY [facility] Insulin Aspart 1 vial 01/13/19 16:30 01/14/19 17:33 Novolog Vial Sliding Scale - SQ Not Given ACHS [facility] Protocol Lorazepam 0.5 mg 01/14/19 11:19 01/14/19 12:18 Ativan - PO 0.5 mg TID PRN Administration tremors Methadone HCl 30 mg 01/14/19 06:00 01/14/19 05:43 Dolophine - PO 30 mg DAILY@0600 YAKOV Administration Methylnaltrexone [place] 12 mg 01/15/19 10:00 Relistor - SQ Q2D@1000 [facility] Metoprolol Tartrate 25 mg 01/13/19 22:00 01/14/19 11:32 Lopressor - PO 25 mg BID YAKOV Administration Ondansetron HCl 4 mg 01/13/19 16:27 Zofran Injection IVPB Q6H PRN NAUSEA Fluticasone/Salmeterol 1 puff 01/13/19 22:00 01/13/19 22:11 Advair 100mcg/50mcg - IH 1 puff BID YAKOV Administration Sertraline HCl 50 mg 01/14/19 10:00 01/14/19 11:33 Zoloft - PO 50 mg DAILY YAKOV Administration Tamsulosin HCl 0.8 mg 01/14/19 08:30 01/14/19 11:31 Flomax - PO 0.8 mg DAILY@0830 YAKOV Administration Tiotropium [place] 2 puff 01/14/19 10:00 01/14/19 15:57 Spiriva Respimat IH 2 puff DAILY YAKOV Administration Valacyclovir HCl 500 mg 01/14/19 08:00 01/14/19 11:30 Valtrex - PO 500 mg DAILY@0800 YAKOV Administration Impression 1. hyponatremia 2. CKD 3. hypoglycemia 4. htn 5. DM 6. 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 multiple myeloma 9. anemia 10. proteinuria 11. hyperkalemia 12. NSTEMI Plan - restart lasix, will give a dose now - repeat labs in am - monitor volume status - monitor renal function
[2019-01-14] MEDS: FUROSEMIDE 40 MG TABLET (FP) PO SCH (17:53)
[2019-01-14] MEDS: FLUTICASONE/SALMETEROL 100 MCG/50 MCG DISKUS IH SCH ×2 (17:53→22:00)
--- NOTE | 2019-01-14 20:09 | PN ---
Progress Note (short form) - Note Progress Note: Patient seen in follow up. No new complaints. No significant events overnight. Inpatient Meds reviewed. Current Medications Aspirin (Asa -) 81 mg PO DAILY [facility] Last Admin: 01/14/19 11:32 Dose: 81 mg Atorvastatin Calcium (Lipitor -) 80 mg PO HS [facility] Last Admin: 01/13/19 22:11 Dose: 80 mg Clopidogrel Bisulfate (Plavix -) 75 mg PO DAILY [facility] Last Admin: 01/14/19 11:33 Dose: 75 mg Enoxaparin Sodium (Lovenox -) 40 mg SQ DAILY [facility] Furosemide (Lasix -) 40 mg PO DAILY [facility] Last Admin: 01/14/19 17:53 Dose: 40 mg Insulin Aspart (Novolog Vial Sliding Scale -) 1 vial SQ [facility]; Protocol Last Admin: 01/14/19 17:33 Dose: Not Given Lorazepam (Ativan -) 0.5 mg PO TID PRN PRN Reason: tremors Last Admin: 01/14/19 12:18 Dose: 0.5 mg Methadone HCl (Dolophine -) 30 mg PO DAILY@0600 [facility] Last Admin: 01/14/19 05:43 Dose: 30 mg Methylnaltrexone [place] (Relistor -) 12 mg SQ Q2D@1000 [facility] Metoprolol Tartrate (Lopressor -) 25 mg PO BID [facility] Last Admin: 01/14/19 11:32 Dose: 25 mg Ondansetron HCl (Zofran Injection) 4 mg IVPB Q6H PRN PRN Reason: NAUSEA Fluticasone/Salmeterol (Advair 100mcg/50mcg -) 1 puff IH BID [facility] Last Admin: 01/14/19 17:53 Dose: 1 puff Sertraline HCl (Zoloft -) 50 mg PO DAILY [facility] Last Admin: 01/14/19 11:33 Dose: 50 mg Tamsulosin HCl (Flomax -) 0.8 mg PO DAILY@0830 [facility] Last Admin: 01/14/19 11:31 Dose: 0.8 mg Tiotropium [place] (Spiriva Respimat) 2 puff IH DAILY [facility] Last Admin: 01/14/19 15:57 Dose: 2 puff Valacyclovir HCl (Valtrex -) 500 mg PO DAILY@0800 [facility] Last Admin: 01/14/19 11:30 Dose: 500 mg On Examination: Last Vital Signs Temp Pulse Resp BP Pulse Ox 98.2 F 61 20 108/62 98 01/14/19 17:11 01/14/19 17:11 01/14/19 17:11 01/14/19 17:11 01/14/19 08:00 General: In no acute distress, lying in bed, jittery. Extremities: No pallor or icterus. No pedal edema. No palpable lymphadenopathy. CVS: S1, S2, regular, no gallop or murmur. Chest: good air entry bilaterally, clear Abdomen: Non-distended, non-tender, no palpable organomegaly. Neuro: Alert, oriented, non-focal, coarse tremor Labs: CBC, BMP 01/14/19 06:30 01/14/19 06:30 Assessment. History of MM, on treatment, opioid dependant on methadone program. Recent discharge, returns with symptoms of opioid withdrawal, which he attributes the extra oxycodone he was exposed to during recent admission. Doing better today, with methadone, and BDZ support. Will folow, hopefully will be able to discharge soon, to continue with methadone clinic. Myeloma--s/p RTX to L spine, and s/p VCD Pending exchange architect to Revlimid/Dexamethasone
[2019-01-14] MEDS: ATORVASTATIN CA 80 MG TABLET (FP) PO SCH (22:00)
[2019-01-15] MEDS: METHADONE HCL 10 MG TABLET PO SCH (06:05)
[2019-01-15] MEDS: INSULIN SLIDING SCALE (NOVOLOG) 1 VIAL SQ SCH ×4 (06:07→21:45)
[2019-01-15] MEDS ORDERED: PT OWN MED DRAWER 7, Y5N ONE (09:23)
[2019-01-15] MEDS: TAMSULOSIN HCL 0.4 MG CAP PO SCH (09:26)
[2019-01-15] MEDS: LORazepam 0.5 MG TABLET PO PRN (09:26)
[2019-01-15] MEDS: ENOXAPARIN NA (PORCINE) 40 MG/0.4 ML DISP.SYRIN SQ SCH (09:27)
[2019-01-15] MEDS: CLOPIDOGREL BISULFATE 75 MG TABLET (FP) PO SCH (09:31)
[2019-01-15] MEDS: SERTRALINE HCL 50 MG TABLET (FP) PO SCH (09:31)
[2019-01-15] MEDS: FUROSEMIDE 40 MG TABLET (FP) PO SCH (09:31)
[2019-01-15] MEDS: ASPIRIN 81 MG CHEWABLE TABLETS PO SCH (09:31)
[2019-01-15] MEDS: METOPROLOL TARTRATE 25 MG TABLET (FP) PO SCH ×2 (09:32→21:40)
[2019-01-15] MEDS: valACYclovir HCL 500 MG TABLET (FP) PO SCH (09:32)
[2019-01-15] MEDS: FLUTICASONE/SALMETEROL 100 MCG/50 MCG DISKUS IH SCH ×2 (09:34→21:40)
[2019-01-15] MEDS: TIOTROPIUM BROMIDE 2.5 MCG (SPIRIVA) RESPIMAT INHALER IH SCH (09:34)
[2019-01-15] MEDS ORDERED: Methylnaltrexone Bromide 12 MG/0.6 ML KIT SQ SCH (10:00)
--- NOTE | 2019-01-15 10:33 | PN ---
Progress Note, Physician Chief Complaint: nausea, vomiting, diarrhea, fatigue History of Present Illness: NAD +tremors pain controlled on methadone refuses SNF [facility] not eligible for [place] care-needs 1 person assistance with ADL's - Current Medication List Current Medications: Active Medications Aspirin (Asa -) 81 mg PO DAILY [facility] Last Admin: 01/15/19 09:31 Dose: 81 mg Atorvastatin Calcium (Lipitor -) 80 mg PO HS [facility] Last Admin: 01/14/19 22:00 Dose: 80 mg Clopidogrel Bisulfate (Plavix -) 75 mg PO DAILY [facility] Last Admin: 01/15/19 09:31 Dose: 75 mg Enoxaparin Sodium (Lovenox -) 40 mg SQ DAILY [facility] Last Admin: 01/15/19 09:27 Dose: 40 mg Furosemide (Lasix -) 40 mg PO DAILY [facility] Last Admin: 01/15/19 09:31 Dose: 40 mg Insulin Aspart (Novolog Vial Sliding Scale -) 1 vial SQ [facility]; Protocol Last Admin: 01/15/19 06:07 Dose: Not Given Lorazepam (Ativan -) 0.5 mg PO TID PRN PRN Reason: tremors Last Admin: 01/15/19 09:26 Dose: 0.5 mg Methadone HCl (Dolophine -) 30 mg PO DAILY@0600 [facility] Last Admin: 01/15/19 06:05 Dose: 30 mg Methylnaltrexone [place] (Relistor -) 12 mg SQ Q2D@1000 [facility] Last Admin: 01/15/19 09:32 Dose: 12 mg Metoprolol Tartrate (Lopressor -) 25 mg PO BID [facility] Last Admin: 01/15/19 09:32 Dose: 25 mg Ondansetron HCl (Zofran Injection) 4 mg IVPB Q6H PRN PRN Reason: NAUSEA Fluticasone/Salmeterol (Advair 100mcg/50mcg -) 1 puff IH BID [facility] Last Admin: 01/15/19 09:34 Dose: 1 puff Sertraline HCl (Zoloft -) 50 mg PO DAILY [facility] Last Admin: 01/15/19 09:31 Dose: 50 mg Tamsulosin HCl (Flomax -) 0.8 mg PO DAILY@0830 [facility] Last Admin: 01/15/19 09:26 Dose: 0.8 mg Tiotropium [place] (Spiriva Respimat) 2 puff IH DAILY [facility] Last Admin: 01/15/19 09:34 Dose: 2 puff Valacyclovir HCl (Valtrex -) 500 mg PO DAILY@0800 [facility] Last Admin: 01/15/19 09:32 Dose: 500 mg - Objective Vital Signs: Vital Signs Temperature 98.1 F 01/15/19 09:03 Pulse Rate 76 01/15/19 09:03 Respiratory Rate 18 01/15/19 09:03 Blood Pressure 127/59 L 01/15/19 09:03 O2 Sat by Pulse Oximetry (%) 98 01/14/19 08:00 Constitutional: Yes: Well Nourished, No Distress, Calm Cardiovascular: Yes: Regular Rate and Rhythm Respiratory: Yes: Regular Gastrointestinal: Yes: WNL Genitourinary: Yes: [place] Present Musculoskeletal: Yes: Muscle Weakness Extremities: Yes: WNL Edema: No Peripheral Pulses WNL: Yes Neurological: Yes: Alert, Oriented Psychiatric: Yes: Alert, Oriented Labs: CBC, BMP 01/14/19 06:30 01/14/19 06:30 Problem List - Problems (1) Methadone maintenance therapy patient Assessment/Plan: -continue methadone 30 mg po daily -F/U at methadone clinic at [facility] o/p -spoke to daughter Vannessa -Pain management Code(s): F11.20 - OPIOID DEPENDENCE, UNCOMPLICATED (2) Opioid withdrawal Assessment/Plan: -Ativan 0.5 mg po TID PRN for tremors and withdrawal -Pain management Code(s): F11.23 - OPIOID DEPENDENCE WITH WITHDRAWAL (3) DARIO (acute kidney injury) Assessment/Plan: -resolved -nephrology on board Code(s): N17.9 - ACUTE KIDNEY FAILURE, UNSPECIFIED (4) History of substance abuse Code(s): Z87.898 - PERSONAL HISTORY OF OTHER SPECIFIED CONDITIONS (5) Tremor due to drug withdrawal Assessment/Plan: -Ativan 0.5 mg po tid prn -titrate as needed Code(s): F19.239 - OTH PSYCHOACTIVE SUBSTANCE DEPENDENCE WITH WITHDRAWAL, UNSP; G25.1 - DRUG-INDUCED TREMOR Assessment/Plan See problem list Physical therapy
--- NOTE | 2019-01-15 11:23 | PN ---
Progress Note (short form) - Note Progress Note: Patient seen in follow up. No new complaints. No significant events overnight. Reports feeling better today tahn yesterday. Current Medications Aspirin (Asa -) 81 mg PO DAILY [facility] Last Admin: 01/15/19 09:31 Dose: 81 mg Atorvastatin Calcium (Lipitor -) 80 mg PO HS [facility] Last Admin: 01/14/19 22:00 Dose: 80 mg Clopidogrel Bisulfate (Plavix -) 75 mg PO DAILY [facility] Last Admin: 01/15/19 09:31 Dose: 75 mg Enoxaparin Sodium (Lovenox -) 40 mg SQ DAILY [facility] Last Admin: 01/15/19 09:27 Dose: 40 mg Furosemide (Lasix -) 40 mg PO DAILY [facility] Last Admin: 01/15/19 09:31 Dose: 40 mg Insulin Aspart (Novolog Vial Sliding Scale -) 1 vial SQ [facility]; Protocol Last Admin: 01/15/19 06:07 Dose: Not Given Lorazepam (Ativan -) 0.5 mg PO TID PRN PRN Reason: tremors Last Admin: 01/15/19 09:26 Dose: 0.5 mg Methadone HCl (Dolophine -) 30 mg PO DAILY@0600 [facility] Last Admin: 01/15/19 06:05 Dose: 30 mg Methylnaltrexone [place] (Relistor -) 12 mg SQ Q2D@1000 [facility] Last Admin: 01/15/19 09:32 Dose: 12 mg Metoprolol Tartrate (Lopressor -) 25 mg PO BID [facility] Last Admin: 01/15/19 09:32 Dose: 25 mg Ondansetron HCl (Zofran Injection) 4 mg IVPB Q6H PRN PRN Reason: NAUSEA Fluticasone/Salmeterol (Advair 100mcg/50mcg -) 1 puff IH BID [facility] Last Admin: 01/15/19 09:34 Dose: 1 puff Sertraline HCl (Zoloft -) 50 mg PO DAILY [facility] Last Admin: 01/15/19 09:31 Dose: 50 mg Tamsulosin HCl (Flomax -) 0.8 mg PO DAILY@0830 [facility] Last Admin: 01/15/19 09:26 Dose: 0.8 mg Tiotropium [place] (Spiriva Respimat) 2 puff IH DAILY [facility] Last Admin: 01/15/19 09:34 Dose: 2 puff Valacyclovir HCl (Valtrex -) 500 mg PO DAILY@0800 [facility] Last Admin: 01/15/19 09:32 Dose: 500 mg On Examination: Last Vital Signs Temp Pulse Resp BP Pulse Ox 98.1 F 76 18 127/59 L 98 01/15/19 09:03 01/15/19 09:03 01/15/19 09:03 01/15/19 09:03 01/14/19 08:00 General: In no acute distress, lying in bed, jittery. Extremities: No pallor or icterus. No pedal edema. No palpable lymphadenopathy. CVS: S1, S2, regular, no gallop or murmur. Chest: good air entry bilaterally, clear Abdomen: Non-distended, non-tender, no palpable organomegaly. Neuro: Alert, oriented, non-focal, coarse tremor Labs: CBC, BMP 01/14/19 06:30 01/14/19 06:30 Assessment. History of MM, on treatment, opioid dependant on methadone program. Recent discharge, returns with symptoms of opioid withdrawal, which he attributes the extra oxycodone he was exposed to during recent admission. Doing better today, with methadone, and BDZ support. Will follow, hopefully will be able to discharge soon, to continue with methadone clinic. Myeloma--s/p RTX to L spine, and s/p VCD Pending tire changer to Revlimid/Dexamethasone
[2019-01-15 12:06] LABS: ANION GAP 8 MMOL/L (8-16); BLOOD UREA NITROGEN 26 mg/dL (7-18); CALCIUM 8.3 mg/dL (8.5-10.1); CHLORIDE 102 mmol/L (98-107); CO2 26 mmol/L (21-32); CREATININE 1.2 mg/dL (0.55-1.3); GLUCOSE,RANDOM 103 mg/dL (74-106); POTASSIUM 3.6 mmol/L (3.5-5.1); SODIUM 136 mmol/L (136-145)
[2019-01-15] MEDS: chlordiazePOXIDE 5 MG CAPSULE PO PRN (17:30)
--- NOTE | 2019-01-15 18:09 | PN ---
Progress Note, Physician History of Present Illness: Pt seen and examined at bedside. He is awake and alert. He denies shortness of breath. - Current Medication List Current Medications: Active Medications Aspirin (Asa -) 81 mg PO DAILY [facility] Last Admin: 01/15/19 09:31 Dose: 81 mg Atorvastatin Calcium (Lipitor -) 80 mg PO HS [facility] Last Admin: 01/14/19 22:00 Dose: 80 mg Chlordiazepoxide HCl (Librium -) 5 mg PO Q6HPO PRN PRN Reason: WITHDRAWAL(CONT SUBST) Last Admin: 01/15/19 17:30 Dose: 5 mg Clopidogrel Bisulfate (Plavix -) 75 mg PO DAILY [facility] Last Admin: 01/15/19 09:31 Dose: 75 mg Enoxaparin Sodium (Lovenox -) 40 mg SQ DAILY [facility] Last Admin: 01/15/19 09:27 Dose: 40 mg Furosemide (Lasix -) 40 mg PO DAILY [facility] Last Admin: 01/15/19 09:31 Dose: 40 mg Insulin Aspart (Novolog Vial Sliding Scale -) 1 vial SQ [facility]; Protocol Last Admin: 01/15/19 17:31 Dose: Not Given Methadone HCl (Dolophine -) 30 mg PO DAILY@0600 [facility] Last Admin: 01/15/19 06:05 Dose: 30 mg Methylnaltrexone [place] (Relistor -) 12 mg SQ Q2D@1000 [facility] Last Admin: 01/15/19 09:32 Dose: 12 mg Metoprolol Tartrate (Lopressor -) 25 mg PO BID [facility] Last Admin: 01/15/19 09:32 Dose: 25 mg Ondansetron HCl (Zofran Injection) 4 mg IVPB Q6H PRN PRN Reason: NAUSEA Fluticasone/Salmeterol (Advair 100mcg/50mcg -) 1 puff IH BID [facility] Last Admin: 01/15/19 09:34 Dose: 1 puff Sertraline HCl (Zoloft -) 50 mg PO DAILY [facility] Last Admin: 01/15/19 09:31 Dose: 50 mg Tamsulosin HCl (Flomax -) 0.8 mg PO DAILY@0830 [facility] Last Admin: 01/15/19 09:26 Dose: 0.8 mg Tiotropium [place] (Spiriva Respimat) 2 puff IH DAILY [facility] Last Admin: 01/15/19 09:34 Dose: 2 puff Valacyclovir HCl (Valtrex -) 500 mg PO DAILY@0800 [facility] Last Admin: 01/15/19 09:32 Dose: 500 mg - Objective Vital Signs: Vital Signs Temperature 97.7 F 01/15/19 15:00 Pulse Rate 76 01/15/19 15:00 Respiratory Rate 20 01/15/19 15:00 Blood Pressure 130/66 01/15/19 15:00 O2 Sat by Pulse Oximetry (%) 98 01/15/19 09:00 Constitutional: Yes: Calm Eyes: Yes: Conjunctiva Clear HENT: Yes: Atraumatic Cardiovascular: Yes: S1, S2 Respiratory: Yes: On Nasal O2 Gastrointestinal: Yes: Soft Genitourinary: Yes: WNL Musculoskeletal: Yes: WNL Edema: No Neurological: Yes: Oriented Psychiatric: Yes: Oriented Labs: CBC, BMP 01/14/19 06:30 01/15/19 11:10 Problem List - Problems (1) Hyponatremia Code(s): E87.1 - HYPO-OSMOLALITY AND HYPONATREMIA (2) CKD (chronic kidney disease) Code(s): N18.9 - CHRONIC KIDNEY DISEASE, UNSPECIFIED Assessment/Plan Current Medications Generic Name Dose Route Start Last Admin Trade Name Freq PRN Reason Stop Dose Admin Aspirin 81 mg 01/14/19 10:00 01/15/19 09:31 Asa - PO 81 mg DAILY [facility]AKOV Administration Atorvastatin Calcium 80 mg 01/13/19 22:00 01/14/19 22:00 Lipitor - PO 80 mg HS YAKOV Administration Chlordiazepoxide HCl 5 mg 01/15/19 15:38 01/15/19 17:30 Librium - PO 5 mg Q6HPO PRN Administration WITHDRAWAL(CONT SUBST) Clopidogrel Bisulfate 75 mg 01/14/19 10:00 01/15/19 09:31 Plavix - PO 75 mg DAILY YAKOV Administration Enoxaparin Sodium 40 mg 01/15/19 10:00 01/15/19 09:27 Lovenox - SQ 40 mg DAILY YAKOV Administration Furosemide 40 mg 01/14/19 17:45 01/15/19 09:31 Lasix - PO 40 mg DAILY [facility]AKOV Administration Insulin Aspart 1 vial 01/13/19 16:30 01/15/19 17:31 Novolog Vial Sliding Scale - SQ Not Given ACHS [facility] Protocol Methadone HCl 30 mg 01/14/19 06:00 01/15/19 06:05 Dolophine - PO 30 mg DAILY@0600 YAKOV Administration Methylnaltrexone [place] 12 mg 01/15/19 10:00 01/15/19 09:32 Relistor - SQ 12 mg Q2D@1000 [facility]AKOV Administration Metoprolol Tartrate 25 mg 01/13/19 22:00 01/15/19 09:32 Lopressor - PO 25 mg BID [facility]AK[facility] Administration Ondansetron HCl 4 mg 01/13/19 16:27 Zofran Injection IVPB Q6H PRN NAUSEA Fluticasone/Salmeterol 1 puff 01/13/19 22:00 01/15/19 09:34 Advair 100mcg/50mcg - IH 1 puff BID [facility]AKOV Administration Sertraline HCl 50 mg 01/14/19 10:00 01/15/19 09:31 Zoloft - PO 50 mg DAILY [facility] Administration Tamsulosin HCl 0.8 mg 01/14/19 08:30 01/15/19 09:26 Flomax - PO 0.8 mg DAILY@0830 [facility] Administration Tiotropium [place] 2 puff 01/14/19 10:00 01/15/19 09:34 Spiriva Respimat IH 2 puff DAILY [facility]AK[facility] Administration Valacyclovir HCl 500 mg 01/14/19 08:00 01/15/19 09:32 Valtrex - PO 500 mg DAILY@0800 [facility] Administration Impression 1. hyponatremia 2. CKD 3. hypoglycemia 4. htn 5. DM 6. 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 multiple myeloma 9. anemia 10. proteinuria 11. hyperkalemia 12. NSTEMI Plan - cont with lasix, can put back on bid starting tomorrow - repeat labs in am - pt appears comfortable - pain control - monitor renal function
[2019-01-15] MEDS: ATORVASTATIN CA 80 MG TABLET (FP) PO SCH (21:40)
[2019-01-16] MEDS: FUROSEMIDE 40 MG TABLET (FP) PO SCH ×2 (05:38→13:39)
[2019-01-16] MEDS: METHADONE HCL 10 MG TABLET PO SCH (05:38)
[2019-01-16 06:25] VITALS: BP 141/77; PULSE 71; TEMP 98.5
[2019-01-16] MEDS: INSULIN SLIDING SCALE (NOVOLOG) 1 VIAL SQ SCH ×2 (06:45→11:38)
[2019-01-16] MEDS ORDERED: PT OWN MED DRAWER 7, Y5N ONE (08:53)
[2019-01-16] MEDS: CLOPIDOGREL BISULFATE 75 MG TABLET (FP) PO SCH (09:17)
[2019-01-16] MEDS: METOPROLOL TARTRATE 25 MG TABLET (FP) PO SCH (09:17)
[2019-01-16] MEDS: TAMSULOSIN HCL 0.4 MG CAP PO SCH (09:17)
[2019-01-16] MEDS: valACYclovir HCL 500 MG TABLET (FP) PO SCH (09:17)
[2019-01-16] MEDS: ASPIRIN 81 MG CHEWABLE TABLETS PO SCH (09:17)
[2019-01-16] MEDS: ENOXAPARIN NA (PORCINE) 40 MG/0.4 ML DISP.SYRIN SQ SCH (09:17)
[2019-01-16] MEDS: SERTRALINE HCL 50 MG TABLET (FP) PO SCH (09:17)
[2019-01-16] MEDS: FLUTICASONE/SALMETEROL 100 MCG/50 MCG DISKUS IH SCH (09:18)
[2019-01-16] MEDS: TIOTROPIUM BROMIDE 2.5 MCG (SPIRIVA) RESPIMAT INHALER IH SCH (09:18)
[2019-01-16] MEDS: chlordiazePOXIDE 5 MG CAPSULE PO PRN (09:54)
--- NOTE | 2019-01-16 15:29 | DS ---
Physical Examination Vital Signs: Vital Signs Temperature 98.5 F 01/16/19 06:00 Pulse Rate 71 01/16/19 06:00 Respiratory Rate 20 01/16/19 06:00 Blood Pressure 141/77 01/16/19 06:00 O2 Sat by Pulse Oximetry (%) 98 01/16/19 09:00 Findings/Remarks: Patient is a 63 y/o male with past medical history of DM, HLD, HTN, PVD, HCV, opioid abuse, Multiple Myeloma on chemo. Patient presented to ER with complaints of nausea, vomiting, and fatigue. Patient is on Methadone maintenance at [facility], but states he was undergoing oxycodone withdrawal. Constitutional: Yes: No Distress, Calm Eyes: Yes: Conjunctiva Clear HENT: Yes: Atraumatic Cardiovascular: Yes: Regular Rate and Rhythm Respiratory: Yes: Regular, CTA Bilaterally, On Nasal O2 Gastrointestinal: Yes: Normal Bowel Sounds, Soft Musculoskeletal: Yes: Muscle Weakness Extremities: Yes: WNL Edema: No Neurological: Yes: Alert, Oriented Psychiatric: Yes: Alert, Oriented Labs: CBC, BMP 01/14/19 06:30 01/15/19 11:10 Discharge Summary Reason For Visit: OPIOID WITHDRAWAL DYSPNEA Current Active Problems Hyponatremia (Acute) Methadone maintenance therapy patient (Acute) Opioid withdrawal (Acute) Tremor due to drug withdrawal (Acute) Weakness (Acute) Hospital Course: see progress notes Laboratory Tests 01/13/19 01/13/19 01/13/19 05:43 06:00 06:12 WBC 5.6 RBC 3.57 L Hgb 10.6 L Hct 31.0 L MCV 86.7 MCH 29.5 MCHC 34.1 RDW 16.9 H Plt Count 184 MPV 8.2 Absolute Neuts (auto) 4.6 Neutrophils % 82.1 Lymphocytes % 11.0 D Monocytes % 6.1 Eosinophils % 0.5 Basophils % 0.3 Nucleated RBC % 0 Sodium 131 L Potassium 3.5 Chloride 95 L Carbon Dioxide 26 Anion Gap 10 BUN 21 H Creatinine 1.3 Creat Clearance w eGFR 55.40 POC Glucometer 178 Random Glucose 172 H Calcium 7.9 L Phosphorus Magnesium Total Bilirubin 0.4 AST 15 ALT 17 Alkaline Phosphatase 82 Total Protein 6.3 L Albumin 3.0 L 01/13/19 01/13/19 01/13/19 10:46 16:53 22:07 WBC RBC Hgb Hct MCV MCH MCHC RDW Plt Count MPV Absolute Neuts (auto) Neutrophils % Lymphocytes % Monocytes % Eosinophils % Basophils % Nucleated RBC % Sodium Potassium Chloride Carbon Dioxide Anion Gap BUN Creatinine Creat Clearance w eGFR POC Glucometer 178 123 170 Random Glucose Calcium Phosphorus Magnesium Total Bilirubin AST ALT Alkaline Phosphatase Total Protein Albumin 01/14/19 01/14/19 01/14/19 05:41 06:30 06:30 WBC 4.8 RBC 3.26 L Hgb 9.7 L Hct 28.5 L MCV 87.4 MCH 29.9 MCHC 34.2 RDW 16.7 H Plt Count 177 MPV 8.1 Absolute Neuts (auto) Neutrophils % Lymphocytes % Monocytes % Eosinophils % Basophils % Nucleated RBC % Sodium 132 L Potassium 3.6 Chloride 98 Carbon Dioxide 26 Anion Gap 8 BUN 19 H Creatinine 1.0 Creat Clearance w eGFR 74.99 POC Glucometer 140 Random Glucose 145 H Calcium 7.7 L Phosphorus 3.1 Magnesium 1.1 L Total Bilirubin 0.3 AST 15 ALT 16 Alkaline Phosphatase 74 Total Protein 5.4 L Albumin 2.7 L 01/14/19 01/14/19 01/14/19 11:26 16:51 20:51 WBC RBC Hgb Hct MCV MCH MCHC RDW Plt Count MPV Absolute Neuts (auto) Neutrophils % Lymphocytes % Monocytes % Eosinophils % Basophils % Nucleated RBC % Sodium Potassium Chloride Carbon Dioxide Anion Gap BUN Creatinine Creat Clearance w eGFR POC Glucometer 166 124 135 Random Glucose Calcium Phosphorus Magnesium Total Bilirubin AST ALT Alkaline Phosphatase Total Protein Albumin 01/15/19 01/15/19 01/15/19 06:05 11:04 11:10 WBC RBC Hgb Hct MCV MCH MCHC RDW Plt Count MPV Absolute Neuts (auto) Neutrophils % Lymphocytes % Monocytes % Eosinophils % Basophils % Nucleated RBC % Sodium 136 Potassium 3.6 Chloride 102 Carbon Dioxide 26 Anion Gap 8 BUN 26 H Creatinine 1.2 Creat Clearance w eGFR 60.76 POC Glucometer 111 112 Random Glucose 103 Calcium 8.3 L Phosphorus Magnesium Total Bilirubin AST ALT Alkaline Phosphatase Total Protein Albumin 01/15/19 01/15/19 01/16/19 17:29 21:44 05:35 WBC RBC Hgb Hct MCV MCH MCHC RDW Plt Count MPV Absolute Neuts (auto) Neutrophils % Lymphocytes % Monocytes % Eosinophils % Basophils % Nucleated RBC % Sodium Potassium Chloride Carbon Dioxide Anion Gap BUN Creatinine Creat Clearance w eGFR POC Glucometer 111 113 107 Random Glucose Calcium Phosphorus Magnesium Total Bilirubin AST ALT Alkaline Phosphatase Total Protein Albumin 01/16/19 11:38 WBC RBC Hgb Hct MCV MCH MCHC RDW Plt Count MPV Absolute Neuts (auto) Neutrophils % Lymphocytes % Monocytes % Eosinophils % Basophils % Nucleated RBC % Sodium Potassium Chloride Carbon Dioxide Anion Gap BUN Creatinine Creat Clearance w eGFR POC Glucometer 119 Random Glucose Calcium Phosphorus Magnesium Total Bilirubin AST ALT Alkaline Phosphatase Total Protein Albumin Active Medications Generic Name Dose Route Start Last Admin Trade Name Freq PRN Reason Stop Dose Admin Aspirin 81 mg 01/14/19 10:00 01/16/19 09:17 Asa - PO 81 mg DAILY YAKOV Administration Atorvastatin Calcium 80 mg 01/13/19 22:00 01/15/19 21:40 Lipitor - PO 80 mg HS YAKOV Administration Chlordiazepoxide HCl 5 mg 01/15/19 15:38 01/16/19 09:54 Librium - PO 5 mg Q6HPO PRN Administration WITHDRAWAL(CONT SUBST) Clopidogrel Bisulfate 75 mg 01/14/19 10:00 01/16/19 09:17 Plavix - PO 75 mg DAILY YAKOV Administration Enoxaparin Sodium 40 mg 01/15/19 10:00 01/16/19 09:17 Lovenox - SQ 40 mg DAILY YAKOV Administration Furosemide 40 mg 01/16/19 06:00 01/16/19 13:39 Lasix - PO 40 mg BID@0600,1400 YAKOV Administration Insulin Aspart 1 vial 01/13/19 16:30 01/16/19 11:38 Novolog Vial Sliding Scale - SQ Not Given ACHS [facility] Protocol Methadone HCl 30 mg 01/14/19 06:00 01/16/19 05:38 Dolophine - PO 30 mg DAILY@0600 YAKOV Administration Methylnaltrexone [place] 12 mg 01/15/19 10:00 01/15/19 09:32 Relistor - SQ 12 mg Q2D@1000 [facility] Administration Metoprolol Tartrate 25 mg 01/13/19 22:00 01/16/19 09:17 Lopressor - PO 25 mg BID YAKOV Administration Ondansetron HCl 4 mg 01/13/19 16:27 Zofran Injection IVPB Q6H PRN NAUSEA Fluticasone/Salmeterol 1 puff 01/13/19 22:00 04/15/19 09:18 Advair 100mcg/50mcg - IH 1 puff BID YAKOV Administration Sertraline HCl 50 mg 01/14/19 10:00 01/16/19 09:17 Zoloft - PO 50 mg DAILY YAKOV Administration Tamsulosin HCl 0.8 mg 01/14/19 08:30 01/16/19 09:17 Flomax - PO 0.8 mg DAILY@0830 YAKOV Administration Tiotropium [place] 2 puff 01/14/19 10:00 01/16/19 09:18 Spiriva Respimat IH 2 puff DAILY YAKOV Administration Valacyclovir HCl 500 mg 01/14/19 08:00 01/16/19 09:17 Valtrex - PO 500 mg DAILY@0800 YAKOV Administration Condition: Stable - Instructions Diet, Activity, Other Instructions: Referral given for [facility] in [place] for outpatient rehab/detox follow up with Dr Gallegos in 48 hrs of discharge continue with [facility] for methadone maintenance continue with medication as prescribed return to ER if develop AMS, chest pain, respiratory distress continue with [facility] for home care and PT Referrals: Dl Gallegos MD [Primary Care Provider] - Ysabel López MD [Staff Physician] - Disposition: [facility]ALTH CARE - Home Medications Comprehensive Discharge Medication List: Ambulatory Orders Acetaminophen [Tylenol .Regular Strength -] 650 mg PO Q6H PRN #0 tablet Buspirone HCl 15 mg PO BID 07/22/18 Ammonium Lactate Lotion [Lac-Hydrin 12] 1 applic TP BID PRN bottle 12/21/18 Aspirin [ASA -] 81 mg PO DAILY tab.chew 12/21/18 Atorvastatin Ca [Lipitor] 80 mg PO HS tablet 12/21/18 Calcium 500Mg/Vit-D 200 Units [Os-[place] 500+D -] 2 tab PO DAILY tab 12/21/18 Insulin Sliding Scale [Novolog Vial Sliding Scale -] 1 vial SQ TIDAC units Methadone HCl 20 mg PO DAILY #60 tablet MDD 2 12/21/18 Ocular Lubricant Ophth Oint [Lacri-Lube S.o.p -] 1 applic OD HS PRN tube Pantoprazole Suspension [Protonix Packets For Oral Suspension -] 40 mg PO DAILY packet 12/21/18 Polyethylene Glycol 3350 [Miralax 119 gm Btl -] 17 gm PO BID bottle 12/21/18 Tamsulosin HCl [Flomax -] 0.8 mg PO DAILY@0830 cap.er.24h 12/21/18 Tiotropium [place] [Spiriva Respimat] 2 puff IH DAILY inhaler 12/21/18 Furosemide [Lasix -] 40 mg PO BID@0600,1400 #60 tablet MDD 2 01/12/19 Insulin (Levemir) [Levemir Vial] 10 units SQ DAILY@0700 #100 units 01/12/19 Methadone [Dolophine -] 30 mg PO DAILY #10 tablet MDD 1 01/12/19 Methylnaltrexone [place] [Relistor -] 12 mg SQ Q2D@1000 #10 kit 01/12/19 Metoprolol Tartrate [Lopressor -] 50 mg PO BID #30 tablet MDD 2 01/12/19 Sertraline HCl [Zoloft -] 50 mg PO DAILY #30 tablet MDD 1 01/12/19 levoFLOXacin [Levaquin -] 500 mg PO DAILY #4 tablet 01/12/19 Chlordiazepoxide [Librium -] 5 mg PO TID PRN 2 Days #6 capsule MDD 3 01/16/19 Folic Acid 1 mg PO DAILY #30 tablet 01/16/19 Thiamine HCl [Vitamin B-1] 100 mg PO DAILY #30 tablet 01/16/19
--- NOTE | 2019-01-16 16:36 | PN ---
Progress Note, Physician History of Present Illness: Pt seen and examined at bedside. He feels well and is eager to go home. - Objective Vital Signs: Vital Signs Temperature 98.5 F 01/16/19 06:00 Pulse Rate 71 01/16/19 06:00 Respiratory Rate 20 01/16/19 06:00 Blood Pressure 141/77 01/16/19 06:00 O2 Sat by Pulse Oximetry (%) 98 01/16/19 09:00 Constitutional: Yes: Calm Eyes: Yes: Conjunctiva Clear HENT: Yes: Atraumatic Neck: Yes: Supple Cardiovascular: Yes: S1, S2 Respiratory: Yes: On Nasal O2 Gastrointestinal: Yes: Soft Genitourinary: Yes: WNL Musculoskeletal: Yes: WNL Edema: No Neurological: Yes: Oriented Psychiatric: Yes: Oriented Labs: CBC, BMP 01/14/19 06:30 01/15/19 11:10 Problem List - Problems (1) Hyponatremia Code(s): E87.1 - HYPO-OSMOLALITY AND HYPONATREMIA (2) CKD (chronic kidney disease) Code(s): N18.9 - CHRONIC KIDNEY DISEASE, UNSPECIFIED Assessment/Plan Impression 1. hyponatremia 2. CKD 3. hypoglycemia 4. htn 5. DM 6. 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 multiple myeloma 9. anemia 10. proteinuria 11. hyperkalemia 12. NSTEMI Plan - cont lasix - will need outpt follow up after discharge - no new labs - pt appears comfortable - pain control - monitor renal function
== END 2019-01-16 16:24 | disposition home health service (06) | DRG 897 ==
LOC: JER 04:43 → JERBED 08:48 → J8W 14:18 → OBSVTOIN 16:23
PROVIDERS: ADMIT Family Medicine; ATTEND Family Medicine
DX: F11.23 Opioid dependence with withdrawal (principal); C90.00 Multiple myeloma not having achieved remission; E87.1 Hypo-osmolality and hyponatremia; N17.9 Acute kidney failure, unspecified; B19.20 Unspecified viral hepatitis C without hepatic coma; E11.51 Type 2 diabetes mellitus with diabetic peripheral angiopathy without gangrene; E78.5 Hyperlipidemia, unspecified; Z79.4 Long term (current) use of insulin; I25.2 Old myocardial infarction; K59.00 Constipation, unspecified; E11.22 Type 2 diabetes mellitus with diabetic chronic kidney disease; I12.9 Hypertensive chronic kidney disease with stage 1 through stage 4 chronic kidney disease, or unspecified chronic kidney disease; N18.9 Chronic kidney disease, unspecified; D64.9 Anemia, unspecified; E87.5 Hyperkalemia; G25.1 Drug-induced tremor
CPT/HCPCS: 36415; 80048; 80053; 82962; 83735; 84100; 85025; 85027; 93005; 93010; 97161-GP; 99282-25; G0378; J0735; J7030

== ENCOUNTER 2019-03-29 07:12 | Day surgery (SDC) | payer OTHER ==
[~2019-03-29 07:12] MED LIST: ZOLEDRONIC ACID 4 MG in SODIUM CHLORIDE 100 ML IVPB ONE
[2019-03-29] MEDS ORDERED: ZOLEDRONIC ACID 4 MG in SODIUM CHLORIDE 100 ML IVPB ONE (10:00)
[2019-03-29 10:33] LABS: BASO % 0.4 % (0-2.0); EOS % 4.3 % (0-4.5); HEMATOCRIT 35.5 % (35.4-49); HEMOGLOBIN 11.7 GM/dL (11.7-16.9); LYMPH % 21.4 % (8-40); MCH 29.1 pg (25.7-33.7); MEAN CELL VOLUME 88.1 fl (80-96); MEAN PLT VOLUME 7.1 fl (7.5-11.1); MONO % 6.7 % (3.8-10.2); NEUT % 67.2 % (42.8-82.8); PLATELET COUNT 186 K/MM3 (134-434); RBC 4.03 M/mm3 (4.00-5.60); RDW 14.4 % (11.9-15.9)
[2019-03-29 11:05] LABS: ALBUMIN 3.8 g/dl (3.4-5.0); BILIRUBIN,DIRECT 0.1 mg/dL (0.0-0.2); BILIRUBIN,TOTAL 0.3 mg/dL (0.2-1); BLOOD UREA NITROGEN 52.9 mg/dL (7-18); CALCIUM 9.1 mg/dL (8.5-10.1); CREATININE 1.5 mg/dL (0.55-1.3); MAGNESIUM 2.4 mg/dL (1.8-2.4); POTASSIUM 4.3 mmol/L (3.5-5.1); TOT PROT 7.2 g/dl (6.4-8.2)
[2019-03-29] MEDS ORDERED: ZOLEDRONIC ACID 3.5 MG in SODIUM CHLORIDE 100 ML IVPB ONE ×2 (13:12→13:13)
[2019-03-29] MEDS ORDERED: ACETAMINOPHEN 325 MG TABLET (FP) PO ONE (13:18)
[2019-03-29 17:23] VITALS: TEMP 98.2
[2019-03-29 17:27] VITALS: BP 150/58; PULSE 52
== END 2019-03-29 14:30 | disposition home or self-care (01) ==
LOC: JONCCHEMO 07:12 → J7W 11:42 → JONCCHEMO 14:30
PROVIDERS: ATTEND Internal Medicine Hematology & Oncology
PROC: 3E033GC Introduction of Other Therapeutic Substance into Peripheral Vein, Percutaneous Approach (ICD-10-PCS; principal; 2019-03-29)
DX: C90.00 Multiple myeloma not having achieved remission (principal)
CPT/HCPCS: 36415; 80048; 80076; 83735; 83883; 85025; 96365; 96417; J3489

== ENCOUNTER 2019-04-28 07:17 | Day surgery (SDC) | payer OTHER ==
[2019-04-26 10:30] LABS: BASO % 0.4 % (0-2.0); EOS % 13.7 % (0-4.5); HEMATOCRIT 33.2 % (35.4-49); LYMPH % 18.2 % (8-40); MCH 28.7 pg (25.7-33.7); MCHC 33.1 g/dl (32.0-35.9); MEAN CELL VOLUME 86.7 fl (80-96); MEAN PLT VOLUME 9.2 fl (7.5-11.1); MONO % 8.1 % (3.8-10.2); NEUT % 59.6 % (42.8-82.8); PLATELET COUNT 118 K/MM3 (134-434); RBC 3.84 M/mm3 (4.00-5.60); RDW 13.6 % (11.9-15.9); WHITE BLOOD COUNT 5.9 K/mm3 (4.0-10.0)
[2019-04-26 10:57] LABS: ALBUMIN 3.6 g/dl (3.4-5.0); BILIRUBIN,DIRECT 0.1 mg/dL (0.0-0.2); BILIRUBIN,TOTAL 0.4 mg/dL (0.2-1); BLOOD UREA NITROGEN 37.8 mg/dL (7-18); CALCIUM 8.3 mg/dL (8.5-10.1); MAGNESIUM 2.3 mg/dL (1.8-2.4); POTASSIUM 3.9 mmol/L (3.5-5.1); TOT PROT 7.2 g/dl (6.4-8.2); URIC ACID 5.3 mg/dL (2.6-7.2)
[~2019-04-28 07:17] MED LIST changes: +ZOLEDRONIC ACID 3 MG in SODIUM CHLORIDE 100 ML IVPB ONE; -ZOLEDRONIC ACID 4 MG in SODIUM CHLORIDE 100 ML IVPB ONE
[2019-04-28] MEDS ORDERED: ZOLEDRONIC ACID 3 MG in SODIUM CHLORIDE 100 ML IVPB ONE (10:00)
[2019-04-28 10:30] VITALS: TEMP 98.4
[2019-04-28 14:29] VITALS: BP 126/55; PULSE 52
== END 2019-04-28 11:10 | disposition home or self-care (01) ==
LOC: JONCCHEMO 07:17 → J7W 09:36 → JONCCHEMO 11:10
PROVIDERS: ATTEND Internal Medicine Hematology & Oncology
PROC: 3E033GC Introduction of Other Therapeutic Substance into Peripheral Vein, Percutaneous Approach (ICD-10-PCS; principal; 2019-04-28)
DX: C90.00 Multiple myeloma not having achieved remission (principal)
CPT/HCPCS: 36415; 80048; 80076; 83615; 83735; 84550; 85025; 96365; 96417; J3489

== ENCOUNTER 2019-05-24 09:31 | Day surgery (SDC) | payer OTHER ==
[2019-05-24] MEDS ORDERED: DENOSUMAB 120 MG/1.7 ML VIAL SQ ONE (10:00)
[2019-05-24 10:43] LABS: BASO % 0.1 % (0-2.0); EOS % 13.8 % (0-4.5); HEMATOCRIT 31.1 % (35.4-49); HEMOGLOBIN 10.1 GM/dL (11.7-16.9); LYMPH % 12.6 % (8-40); MCH 27.7 pg (25.7-33.7); MCHC 32.4 g/dl (32.0-35.9); MEAN CELL VOLUME 85.7 fl (80-96); MEAN PLT VOLUME 8.3 fl (7.5-11.1); MONO % 1.7 % (3.8-10.2); NEUT % 71.8 % (42.8-82.8); PLATELET COUNT 84 K/MM3 (134-434); RBC 3.63 M/mm3 (4.00-5.60); RDW 14.2 % (11.9-15.9); WHITE BLOOD COUNT 4.2 K/mm3 (4.0-10.0)
[2019-05-24 11:18] LABS: ALBUMIN 3.1 g/dl (3.4-5.0); BILIRUBIN,DIRECT 0.2 mg/dL (0.0-0.2); BILIRUBIN,TOTAL 0.5 mg/dL (0.2-1); BLOOD UREA NITROGEN 55.8 mg/dL (7-18); CALCIUM 8.4 mg/dL (8.5-10.1); CREATININE 2.2 mg/dL (0.55-1.3); POTASSIUM 4.1 mmol/L (3.5-5.1); TOT PROT 6.9 g/dl (6.4-8.2); URIC ACID 4.7 mg/dL (2.6-7.2)
[2019-05-24] MEDS ORDERED: DEXAMETHASONE 4 MG TABLET (FP) PO ONE (12:00)
[2019-05-24 12:24] LABS: PLATELET ESTIMATE DECREASED
[2019-05-24 16:52] VITALS: BP 122/61; PULSE 59; TEMP 98.8
== END 2019-05-24 12:43 | disposition home or self-care (01) ==
LOC: JONCCHEMO 09:31 → J7W 11:36 → JONCCHEMO 12:43
PROVIDERS: ATTEND Internal Medicine Hematology & Oncology
PROC: 3E013GC Introduction of Other Therapeutic Substance into Subcutaneous Tissue, Percutaneous Approach (ICD-10-PCS; principal; 2019-05-24)
DX: C90.00 Multiple myeloma not having achieved remission (principal)
CPT/HCPCS: 36415; 80048; 80076; 83615; 83735; 84550; 85025; 96372; J0897

== ENCOUNTER → 2019-06-01 | Day surgery (SDC) | payer OTHER | LOC: JONCCHEMO 07:02 ==

== ENCOUNTER 2019-06-02 07:21 | Inpatient (IN) | payer OTHER ==
[2019-06-02] MEDS ORDERED: SODIUM CHLORIDE 1,000 ML IV SCH (10:15)
[2019-06-02 14:44] LABS: EPI CELLS 3.9 /HPF (0-5/HPF); HYALINE CASTS 0 /lpf (0-8); URINE APPEARANCE Error; URINE BACTERIA 0 /hpf (NEGATIVE); URINE BILIRUBIN NEGATIVE (NEGATIVE); URINE COLOR YELLOW; URINE GLUCOSE (UA) TRACE (NEGATIVE); URINE KETONE NEGATIVE (NEGATIVE); URINE LEUK ESTERASE NEGATIVE (NEGATIVE); URINE NITRITE NEGATIVE (NEGATIVE); URINE PROTEIN 2+ (NEGATIVE); URINE RBC 2 /hpf (0-4); URINE UROBILINOGEN 0.2 mg/dL (0.2-1.0); URINE WBC 1 /hpf (0-5)
--- NOTE | 2019-06-02 14:50 | CONSULT ---
Consult Consult Specialty:: Nephrology Reason for Consultation:: DAROI - History of Present Illness Chief Complaint: sent in for fluids History of Present Illness: Pt is a 63 year old male with hx of myeloma, ckd, hep c htn and dm who was sent in for fluids by heme onc. He was found to have elevated creatinine on routine labs. He was on lasix but asked to stop it a few days ago. He denies shortness of breath. He was on velcade that was stopped and he was supposed to start daratumumab. I was called for renal failure. He says he feels well. he deneis dysuria or hematuria. 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: Peripheral Neuropathy (stocking glove distribution related to DM) Cardio/Vascular: Yes: CHF, HTN, Hyperlipdemia, [place] Pulmonary: Yes: Asthma, Other (left chest tube for rib fracture related pneumothorax afte a fall) Gastrointestinal: Yes: Constipation, Other Hepatobiliary: Yes: Hepatitis C (cured several years ago with Dr Bedolla) Renal/: Yes: Renal Inusuff Infectious Disease: Yes: Other (Hepatitis C cured) Psych: Yes: Depression Musculoskeletal: Yes: Chronic low back pain (multiple thoracolumbar vertebral pathological fractures), Other (multiple thoracolumbar vertebral fractures) Endocrine: Yes: Diabetes Mellitus Dermatology: Yes: Other (varicose veins) Additional Medical History: Laser therapy for diabetic retinopathy - Past Surgical History Past Surgical History: Yes: Amputation (5th digit R foot), Tonsillectomy - Alcohol/Substance Use Hx Alcohol Use: No History of Substance Use: reports: Cocaine, Heroin - Smoking History Smoking history: Unknown if ever smoked Have you smoked in the past 12 months: No If you are a former smoker, when did you quit?: 1996 - Social History Usual Living Arrangement: With Spouse ADL: Independent 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 History of Recent Travel: Yes (to [place] a few months ago) Home Medications - Allergies Allergies/Adverse Reactions: Allergies Allergy/AdvReac Type Severity Reaction Status Date / Time No Known Allergies Allergy Verified 01/13/19 05:46 - Home Medications Home Medications: Ambulatory Orders Acetaminophen [Tylenol .Regular Strength -] 650 mg PO Q6H PRN #0 tablet Buspirone HCl 15 mg PO BID 07/22/18 Ammonium Lactate Lotion [Lac-Hydrin 12] 1 applic TP BID PRN bottle 12/21/18 Aspirin [ASA -] 81 mg PO DAILY tab.chew 12/21/18 Atorvastatin Ca [Lipitor] 80 mg PO HS tablet 12/21/18 Insulin Sliding Scale [Novolog Vial Sliding Scale -] 1 vial SQ TIDAC units Pantoprazole Suspension [Protonix Packets For Oral Suspension -] 40 mg PO DAILY packet 12/21/18 Furosemide [Lasix -] 40 mg PO BID@0600,1400 #60 tablet MDD 2 01/12/19 Insulin (Levemir) [Levemir Vial] 10 units SQ DAILY@0700 #100 units 01/12/19 Metoprolol Tartrate [Lopressor -] 50 mg PO BID #30 tablet MDD 2 01/12/19 Sertraline HCl [Zoloft -] 50 mg PO DAILY #30 tablet MDD 1 01/12/19 Folic Acid 1 mg PO DAILY #30 tablet 01/16/19 Insulin Glargine,Hum.rec.anlog [Basaglar Kwikpen U-100] 15 units SQ ASDIR Methadone HCl 30 mg PO DAILY MDD 2 03/29/19 Tiotropium [place] [Spiriva Respimat] 1 puff IH BID 03/29/19 Methylnaltrexone [place] [Relistor -] 12 mg SQ Q2D@1000 PRN 04/28/19 Allopurinol 300 mg PO DAILY 05/24/19 Calcium 500Mg/Vit-D 200 Units [Os-[place]yler 500+D -] 1 tab PO BID 05/24/19 Revlimid 10 mg PO DAILY 05/24/19 Family Disease History - Family Disease History Family Disease History: [place]: Mother, Other: Father ( 90 natural causes), Mother, Brother Review of Systems - Review of Systems Constitutional: reports: No Symptoms Eyes: reports: No Symptoms HENT: reports: No Symptoms Neck: reports: No Symptoms Cardiovascular: reports: No Symptoms Respiratory: reports: SOB on Exertion Gastrointestinal: reports: No Symptoms Genitourinary: reports: No Symptoms Musculoskeletal: reports: No Symptoms Integumentary: reports: No Symptoms Neurological: reports: No Symptoms Endocrine: reports: No Symptoms Hematology/Lymphatic: reports: No Symptoms Psychiatric: reports: No Symptoms Physical Exam Constitutional: Yes: Calm Eyes: Yes: Conjunctiva Clear HENT: Yes: Atraumatic Neck: Yes: Supple Cardiovascular: Yes: S1, S2 Respiratory: Yes: On Nasal O2 Gastrointestinal: Yes: Soft, Abdomen, Obese Renal/: Yes: WNL Musculoskeletal: Yes: WNL Edema: No Neurological: Yes: Oriented Psychiatric: Yes: Oriented Labs: Laboratory Tests 04/12/19 04/26/19 05/05/19 10:45 10:15 10:00 Creatinine 2.0 H 2.0 H 2.2 H 05/19/19 05/24/19 06/01/19 10:30 10:30 09:43 Creatinine 1.8 H 2.2 H 3.0 H Problem List - Problems (1) DARIO (acute kidney injury) Code(s): N17.9 - ACUTE KIDNEY FAILURE, UNSPECIFIED Assessment/Plan Current Medications Generic Name Dose Route Start Last Admin Trade Name Freq PRN Reason Stop Dose Admin Sodium Chloride 1,000 mls @ 125 mls/hr 06/02/19 10:15 Normal Saline - IV ASDIR YAKOV Impression 1. multiple myeloma 2. CKD 3. hep C 4. htn 5. DM 6. 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 proteinuria 9. anemia 10. 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
[2019-06-02] MEDS ORDERED: PROCHLORPERAZINE MALEATE 5 MG TABLET PO PRN (19:06)
[2019-06-02] MEDS ORDERED: ACETAMINOPHEN 325 MG TABLET (FP) PO PRN (19:06)
[2019-06-02] MEDS: busPIRone HCL 5 MG TABLET PO SCH (21:29)
[2019-06-02] MEDS: METOPROLOL TARTRATE 50 MG TABLET (FP) PO SCH (21:29)
[2019-06-02] MEDS: ATORVASTATIN CA 80 MG TABLET (FP) PO SCH (21:29)
[2019-06-02] MEDS: INSULIN SLIDING SCALE (NOVOLOG) 1 VIAL SQ SCH (21:36)
[2019-06-03] MEDS: INSULIN SLIDING SCALE (NOVOLOG) 1 VIAL SQ SCH ×4 (06:36→22:39)
[2019-06-03 09:24] LABS: BASO % 0.3 % (0-2.0); EOS % 11.8 % (0-4.5); HEMATOCRIT 27.7 % (35.4-49); HEMOGLOBIN 9.2 GM/dL (11.7-16.9); LYMPH % 39.1 % (8-40); MCH 27.8 pg (25.7-33.7); MCHC 33.3 g/dl (32.0-35.9); MEAN CELL VOLUME 83.6 fl (80-96); MEAN PLT VOLUME 9.9 fl (7.5-11.1); MONO % 6.2 % (3.8-10.2); NEUT % 42.6 % (42.8-82.8); PLATELET COUNT 57 K/MM3 (134-434); RBC 3.31 M/mm3 (4.00-5.60); RDW 14.6 % (11.9-15.9)
[2019-06-03 09:36] LABS: ALBUMIN 2.5 g/dl (3.4-5.0); BILIRUBIN,TOTAL 0.3 mg/dL (0.2-1); BLOOD UREA NITROGEN 39.9 mg/dL (7-18); CALCIUM 7.7 mg/dL (8.5-10.1); CREATININE 2.6 mg/dL (0.55-1.3); POTASSIUM 3.8 mmol/L (3.5-5.1); TOT PROT 6.4 g/dl (6.4-8.2)
[2019-06-03] MEDS: FOLIC ACID 1 MG TABLET (FP) PO SCH (10:52)
[2019-06-03] MEDS: ASPIRIN 81 MG CHEWABLE TABLETS PO SCH (10:52)
[2019-06-03] MEDS: valACYclovir HCL 500 MG TABLET (FP) PO SCH (10:52)
[2019-06-03] MEDS: busPIRone HCL 5 MG TABLET PO SCH ×2 (10:52→22:35)
[2019-06-03] MEDS: SERTRALINE HCL 50 MG TABLET (FP) PO SCH (10:52)
[2019-06-03] MEDS: CALCIUM (OYSTER SHELL) 500 MG TABLET (FP) PO SCH (10:52)
[2019-06-03] MEDS: ALLOPURINOL 300 MG TABLET (FP) PO SCH (10:52)
[2019-06-03] MEDS: TAMSULOSIN HCL 0.4 MG CAP PO SCH (10:52)
[2019-06-03] MEDS: METOPROLOL TARTRATE 50 MG TABLET (FP) PO SCH ×2 (10:52→22:35)
[2019-06-03] MEDS: SODIUM CHLORIDE 1,000 ML IV SCH (10:55)
[2019-06-03] MEDS: INSULIN (LEVEMIR) 100 UNITS/ML UNITS SQ SCH (11:17)
--- NOTE | 2019-06-03 11:19 | HP ---
History and Physical History and Physical: Patient is a 63 year old male with hx of myeloma, ckd, hep c ,htn, CHF, COPD( oxygen dependent) and dm who was sent in for iv hydration by heme onc. He was found to have elevated creatinine on routine labs. He was on lasix but asked to stop it on 06/01. He denies shortness of breath. 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: Peripheral Neuropathy (stocking glove distribution related to DM) Cardio/Vascular: Yes: CHF, HTN, Hyperlipdemia, [place] Pulmonary: Yes: Asthma, Other (left chest tube for rib fracture related pneumothorax afte a fall) Gastrointestinal: Yes: Constipation, Other Hepatobiliary: Yes: Hepatitis C (cured several years ago with Dr Bedolla) Renal/: Yes: Renal Inusuff Infectious Disease: Yes: Other (Hepatitis C cured) Psych: Yes: Depression Musculoskeletal: Yes: Chronic low back pain (multiple thoracolumbar vertebral pathological fractures), Other (multiple thoracolumbar vertebral fractures) Endocrine: Yes: Diabetes Mellitus Dermatology: Yes: Other (varicose veins) Additional Medical History: Laser therapy for diabetic retinopathy - Past Surgical History Past Surgical History: Yes: Amputation (5th digit R foot), Tonsillectomy History of Substance Use: reports: Cocaine, Heroin - Smoking History Smoking history: Unknown if ever smoked - Social History 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 - Allergies Allergies/Adverse Reactions: Allergies Allergy/AdvReac Type Severity Reaction Status Date / Time No Known Allergies Allergy Verified 01/13/19 05:46 - Home Medications Home Medications: Ambulatory Orders Acetaminophen [Tylenol .Regular Strength -] 650 mg PO Q6H PRN #0 tablet Buspirone HCl 15 mg PO BID 07/22/18 Ammonium Lactate Lotion [Lac-Hydrin 12] 1 applic TP BID PRN bottle 12/21/18 Aspirin [ASA -] 81 mg PO DAILY tab.chew 12/21/18 Atorvastatin Ca [Lipitor] 80 mg PO HS tablet 12/21/18 Insulin Sliding Scale [Novolog Vial Sliding Scale -] 1 vial SQ TIDAC units Pantoprazole Suspension [Protonix Packets For Oral Suspension -] 40 mg PO DAILY packet 12/21/18 Furosemide [Lasix -] 40 mg PO BID@0600,1400 #60 tablet MDD 2 01/12/19 Insulin (Levemir) [Levemir Vial] 10 units SQ DAILY@0700 #100 units 01/12/19 Metoprolol Tartrate [Lopressor -] 50 mg PO BID #30 tablet MDD 2 01/12/19 Sertraline HCl [Zoloft -] 50 mg PO DAILY #30 tablet MDD 1 01/12/19 Folic Acid 1 mg PO DAILY #30 tablet 01/16/19 Insulin Glargine,Hum.rec.anlog [Basaglar Kwikpen U-100] 15 units SQ ASDIR Methadone HCl 30 mg PO DAILY MDD 2 03/29/19 Tiotropium [place] [Spiriva Respimat] 1 puff IH BID 03/29/19 Methylnaltrexone [place] [Relistor -] 12 mg SQ Q2D@1000 PRN 04/28/19 Allopurinol 300 mg PO DAILY 05/24/19 Calcium 500Mg/Vit-D 200 Units [Os-[place]yler 500+D -] 1 tab PO BID 05/24/19 Revlimid 10 mg PO DAILY 05/24/19 Family Disease History - Family Disease History Family Disease History: [place]: Mother, Other: Father ( 90 natural causes), Mother, Brother Last Vital Signs Temp Pulse Resp BP Pulse Ox 98 F 55 L 18 122/62 97 06/03/19 09:46 06/03/19 09:46 06/03/19 09:46 06/03/19 09:46 06/03/19 09:00 Cor: RSR, No murmurs, No gallops Lungs: Clear to P&A Abd: Soft, Normal bowel sounds, No organomegaly Ext:No significant edema Skin: No rashes, Integument intact Labs/Meds reviewed Impression 1. multiple myeloma 2. CKD 3. hep C 4. htn 5. DM 6. 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 proteinuria 9. anemia 10. DARIO 63 y/o patient with myeloma, CKD, HTN, DM< COPD,Hep. C/Hep. Bcab+, methadone dependence, admitted with worsening renal insufficiency Myeloma light chains improving on revlimid Suspect renal insufficiency related to dehydration Lasix is on hold Gentle hydration Monitor fluid status closely Neutropenic On revlimid 10mg daily ---is on hold May need to reduce it to 5mg daily once neutropenia recovers
[2019-06-03 11:26] LABS: EPI CELLS 1.9 /HPF (0-5/HPF); HYALINE CASTS 0 /lpf (0-8); PH,URINE 6.5 (5.0-8.0); URINE APPEARANCE CLEAR; URINE BACTERIA 108.7 /hpf (NEGATIVE); URINE BILIRUBIN NEGATIVE (NEGATIVE); URINE COLOR YELLOW; URINE GLUCOSE (UA) NEGATIVE (NEGATIVE); URINE KETONE NEGATIVE (NEGATIVE); URINE LEUK ESTERASE NEGATIVE (NEGATIVE); URINE NITRITE NEGATIVE (NEGATIVE); URINE PROTEIN 2+ (NEGATIVE); URINE RBC 1 /hpf (0-4); URINE UROBILINOGEN 0.2 mg/dL (0.2-1.0); URINE WBC 0 /hpf (0-5)
[2019-06-03 11:29] LABS: WHITE BLOOD COUNT 1.2 K/mm3 (4.0-10.0)
[2019-06-03] MEDS: TIOTROPIUM BROMIDE 2.5 MCG (SPIRIVA) RESPIMAT INHALER IH SCH (11:55)
[2019-06-03] MEDS: Methylnaltrexone Bromide 12 MG/0.6 ML KIT SQ SCH (12:57)
[2019-06-03 15:27] LABS: ANISOCYTOSIS 1+; MACROCYTOSIS 0; PLATELET ESTIMATE DECREASED
[2019-06-03 17:19] VITALS: BMI 31.3
--- NOTE | 2019-06-03 19:51 | PN ---
Progress Note (short form) - Note Progress Note: 63 year old gentleman with hx of myeloma, ckd, hep c ,htn, CHF, COPD( oxygen dependent) and dm who was sent in for iv hydration by heme onc. He was found to have elevated creatinine on routine labs. He was on lasix but asked to stop it on 06/01. He denies shortness of breath. 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: Peripheral Neuropathy (stocking glove distribution related to DM) Cardio/Vascular: Yes: CHF, HTN, Hyperlipdemia, [place] Pulmonary: Yes: Asthma, Other (left chest tube for rib fracture related pneumothorax afte a fall) Gastrointestinal: Yes: Constipation, Other Hepatobiliary: Yes: Hepatitis C (cured several years ago with Dr Bedolla) Renal/: Yes: Renal Inusuff Infectious Disease: Yes: Other (Hepatitis C cured) Psych: Yes: Depression Musculoskeletal: Yes: Chronic low back pain (multiple thoracolumbar vertebral pathological fractures), Other (multiple thoracolumbar vertebral fractures) Endocrine: Yes: Diabetes Mellitus Dermatology: Yes: Other (varicose veins) Additional Medical History: Laser therapy for diabetic retinopathy - Past Surgical History Past Surgical History: Yes: Amputation (5th digit R foot), Tonsillectomy History of Substance Use: reports: Cocaine, Heroin - Smoking History Smoking history: Unknown if ever smoked - Social 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 - Allergies Allergies/Adverse Reactions: Allergies Allergy/AdvReac Type Severity Reaction Status Date / Time No Known Allergies Allergy Verified 01/13/19 05:46 Current Medications Generic Name Dose Route Start Last Admin Trade Name Owenq PRN Reason Stop Dose Admin Acetaminophen 650 mg 06/02/19 19:06 Tylenol - PO Q6H PRN PAIN LEVEL 1-5 Allopurinol 300 mg 06/03/19 10:00 06/03/19 10:52 Zyloprim - PO 300 mg DAILY YAKOV Administration Aspirin 81 mg 06/03/19 10:00 06/03/19 10:52 Asa - PO 81 mg DAILY YAKOV Administration Atorvastatin Calcium 80 mg 06/02/19 22:00 06/02/19 21:29 Lipitor - PO 80 mg HS YAKOV Administration Buspirone HCl 15 mg 06/02/19 22:00 06/03/19 10:52 Buspar - PO 15 mg BID YAKOV Administration Calcium Carbonate 500 mg 06/03/19 10:00 06/03/19 10:52 Os-Kyler 500mg - PO 500 mg DAILY YAKOV Administration Folic Acid 1 mg 06/03/19 10:00 06/03/19 10:52 Folic Acid - PO 1 mg DAILY YAKOV Administration Sodium Chloride 1,000 mls @ 42 mls/hr 06/03/19 07:15 06/03/19 10:55 Normal Saline - IV 42 mls/hr ASDIR [facility] Administration Insulin Aspart 1 vial 06/02/19 22:00 06/03/19 17:26 Novolog Vial Sliding Scale - SQ Not Given ACHS [facility] Protocol Insulin Detemir 15 units 06/03/19 07:00 06/03/19 11:17 Levemir Vial SQ Not Given DAILY@0700 [facility] Methylnaltrexone [place] 12 mg 06/03/19 10:00 06/03/19 12:57 Relistor - SQ 12 mg DAILY [facility] Administration Metoprolol Tartrate 50 mg 06/02/19 22:00 06/03/19 10:52 Lopressor - PO 50 mg BID [facility] Administration Prochlorperazine Maleate 10 mg 06/02/19 19:06 Compazine - PO Q8H PRN NAUSEA/VOMITTING Sertraline HCl 50 mg 06/03/19 10:00 06/03/19 10:52 Zoloft - PO 50 mg DAILY [facility] Administration Tamsulosin HCl 0.8 mg 06/03/19 08:30 06/03/19 10:52 Flomax - PO 0.8 mg DAILY@0830 [facility] Administration Tiotropium [place] 2 puff 06/03/19 10:00 06/03/19 11:55 Spiriva Respimat IH 2 puff DAILY [facility] Administration Valacyclovir HCl 500 mg 06/03/19 10:00 06/03/19 10:52 Valtrex - PO 500 mg DAILY [facility] Administration Family Disease History - Family Disease History Family Disease History: [place]: Mother, Other: Father ( 90 natural causes), Mother, Brother Last Vital Signs Temp Pulse Resp BP Pulse Ox 98 F 55 L 18 122/62 97 06/03/19 09:46 06/03/19 09:46 06/03/19 09:46 06/03/19 09:46 06/03/19 09:00 Cor: RSR, No murmurs, No gallops Lungs: Clear to P&A Abd: Soft, Normal bowel sounds, No organomegaly Ext:No significant edema Skin: No rashes, Integument intact 06/03/19 08:35 06/03/19 08:35 Impression 1. multiple myeloma 2. CKD 3. hep C 4. htn 5. DM 6. 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 proteinuria 9. anemia 10. DARIO 63 y/o patient with myeloma, CKD, HTN, DM< COPD,Hep. C/Hep. Bcab+, methadone dependence, admitted with worsening renal insufficiency Myeloma light chains improving on revlimid Suspect renal insufficiency related to dehydration Lasix is on hold Gentle hydration Monitor fluid status closely Neutropenic On revlimid 10mg daily ---is on hold May need to reduce it to 5mg daily once neutropenia recovers Will obtain CBC with Diff in AM and if neutropenia present will start GCSF
--- NOTE | 2019-06-03 20:32 | PN ---
Progress Note (short form) - Note Progress Note: covering dr yanick Mccoy 1. multiple myeloma 2. CKD 3. hep C 4. htn 5. DM 6. 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 proteinuria 9. anemia 10. DARIO Current Medications Acetaminophen (Tylenol -) 650 mg PO Q6H PRN PRN Reason: PAIN LEVEL 1-5 Allopurinol (Zyloprim -) 300 mg PO DAILY [facility] Last Admin: 06/03/19 10:52 Dose: 300 mg Aspirin (Asa -) 81 mg PO DAILY [facility] Last Admin: 06/03/19 10:52 Dose: 81 mg Atorvastatin Calcium (Lipitor -) 80 mg PO HS [facility] Last Admin: 06/02/19 21:29 Dose: 80 mg Buspirone HCl (Buspar -) 15 mg PO BID [facility] Last Admin: 06/03/19 10:52 Dose: 15 mg Calcium Carbonate (Os-Kyler 500mg -) 500 mg PO DAILY [facility] Last Admin: 06/03/19 10:52 Dose: 500 mg Folic Acid (Folic Acid -) 1 mg PO DAILY [facility] Last Admin: 06/03/19 10:52 Dose: 1 mg Sodium Chloride (Normal Saline -) 1,000 mls @ 42 mls/hr IV ASDIR [facility] Last Admin: 06/03/19 10:55 Dose: 42 mls/hr Insulin Aspart (Novolog Vial Sliding Scale -) 1 vial SQ ACHS [facility]; Protocol Last Admin: 06/03/19 17:26 Dose: Not Given Insulin Detemir (Levemir Vial) 15 units SQ DAILY@0700 [facility] Last Admin: 06/03/19 11:17 Dose: Not Given Methylnaltrexone [place] (Relistor -) 12 mg SQ DAILY [facility] Last Admin: 06/03/19 12:57 Dose: 12 mg Metoprolol Tartrate (Lopressor -) 50 mg PO BID [facility] Last Admin: 06/03/19 10:52 Dose: 50 mg Prochlorperazine Maleate (Compazine -) 10 mg PO Q8H PRN PRN Reason: NAUSEA/VOMITTING Sertraline HCl (Zoloft -) 50 mg PO DAILY [facility] Last Admin: 06/03/19 10:52 Dose: 50 mg Tamsulosin HCl (Flomax -) 0.8 mg PO DAILY@0830 [facility] Last Admin: 06/03/19 10:52 Dose: 0.8 mg Tiotropium [place] (Spiriva Respimat) 2 puff IH DAILY [facility] Last Admin: 06/03/19 11:55 Dose: 2 puff Valacyclovir HCl (Valtrex -) 500 mg PO DAILY [facility] Last Admin: 06/03/19 10:52 Dose: 500 mg Last Vital Signs Temp Pulse Resp BP Pulse Ox 98 F 55 L 18 122/62 98 06/03/19 17:19 06/03/19 17:19 06/03/19 17:19 06/03/19 17:19 06/03/19 17:19 CBC, BMP 06/03/19 08:35 06/03/19 08:35 IMP- DARIO improving 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
[2019-06-03] MEDS: ZOLPIDEM TARTRATE 5 MG TABLET PO PRN (22:35)
[2019-06-03] MEDS: ATORVASTATIN CA 80 MG TABLET (FP) PO SCH (22:35)
[2019-06-04] MEDS: INSULIN (LEVEMIR) 100 UNITS/ML UNITS SQ SCH (06:42)
[2019-06-04] MEDS: SODIUM CHLORIDE 1,000 ML IV SCH (06:42)
[2019-06-04] MEDS: INSULIN SLIDING SCALE (NOVOLOG) 1 VIAL SQ SCH ×4 (06:43→21:49)
[2019-06-04 07:48] LABS: BASO % 0.2 % (0-2.0); EOS % 7.3 % (0-4.5); HEMATOCRIT 27.7 % (35.4-49); HEMOGLOBIN 9.1 GM/dL (11.7-16.9); LYMPH % 52.2 % (8-40); MCH 27.6 pg (25.7-33.7); MCHC 32.8 g/dl (32.0-35.9); MEAN CELL VOLUME 84.1 fl (80-96); MEAN PLT VOLUME 10.3 fl (7.5-11.1); MONO % 8.7 % (3.8-10.2); NEUT % 31.6 % (42.8-82.8); PLATELET COUNT 72 K/MM3 (134-434); RBC 3.29 M/mm3 (4.00-5.60); RDW 14.5 % (11.9-15.9)
[2019-06-04 08:08] LABS: ALBUMIN 2.3 g/dl (3.4-5.0); BILIRUBIN,TOTAL 0.2 mg/dL (0.2-1); BLOOD UREA NITROGEN 38.1 mg/dL (7-18); CALCIUM 7.5 mg/dL (8.5-10.1); CREATININE 2.5 mg/dL (0.55-1.3); POTASSIUM 3.8 mmol/L (3.5-5.1); TOT PROT 5.9 g/dl (6.4-8.2)
[2019-06-04] MEDS ORDERED: PT OWN MED DRAWER 7, Y5N ONE (09:53)
[2019-06-04] MEDS: FOLIC ACID 1 MG TABLET (FP) PO SCH (09:57)
[2019-06-04] MEDS: ASPIRIN 81 MG CHEWABLE TABLETS PO SCH (09:57)
[2019-06-04] MEDS: busPIRone HCL 5 MG TABLET PO SCH ×2 (09:57→21:15)
[2019-06-04] MEDS: valACYclovir HCL 500 MG TABLET (FP) PO SCH (09:57)
[2019-06-04] MEDS: SERTRALINE HCL 50 MG TABLET (FP) PO SCH (09:57)
[2019-06-04] MEDS: ALLOPURINOL 300 MG TABLET (FP) PO SCH (09:57)
[2019-06-04] MEDS: CALCIUM (OYSTER SHELL) 500 MG TABLET (FP) PO SCH (09:57)
[2019-06-04] MEDS: TAMSULOSIN HCL 0.4 MG CAP PO SCH (09:57)
[2019-06-04] MEDS: Methylnaltrexone Bromide 12 MG/0.6 ML KIT SQ SCH (09:59)
[2019-06-04] MEDS: METOPROLOL TARTRATE 50 MG TABLET (FP) PO SCH ×3 (09:59→21:45)
[2019-06-04] MEDS: TIOTROPIUM BROMIDE 2.5 MCG (SPIRIVA) RESPIMAT INHALER IH SCH (09:59)
[2019-06-04 11:02] LABS: ANISOCYTOSIS 1+; MACROCYTOSIS 0; OVALOCYTE 1+; PLATELET ESTIMATE DECREASED; ROULEAU 1+; TEAR DROP CELLS 1+
[2019-06-04 11:16] LABS: WHITE BLOOD COUNT 1.3 K/mm3 (4.0-10.0)
--- NOTE | 2019-06-04 17:58 | CON.CARD ---
Consult Consult Specialty:: Cardiology Referred by:: Dr. López Reason for Consultation:: History of CHF with mildly reduced LVEF. - History of Present Illness Chief Complaint: Weakness History of Present Illness: 63 year old man with a PMHx of CHF with mildly reduced LVEF, pulmonary edema, HTN, DM, multiple myeloma, CKD, Hep C, COPD (oxygen dependent) admitted 06/01/19 for iv hydration by heme-onc because of worsening renal function. He was found to have elevated creatinine on routine labs. He was on lasix but asked to stop it on 06/01. He has been stable from cardiac standpoint recently without recurrent SOB at rest, edema, orthopnea or PND. He denies chest pain, palpitation, syncope or near syncope. He has very limited exercise tolerance with very limited exercise tolerance. Recent echocardiograms Echo 10/31/18 at [facility] with contrast: Normal LV size, wall motion and systolic function. LVEF 60%. Echos at [facility] 07/21/18, 11/28/18 and 01/13/19: Mild global LV hypokinesis. LVEF 45- 50%. 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: Peripheral Neuropathy (stocking glove distribution related to DM) Cardio/Vascular: Yes: CHF, HTN, Hyperlipdemia, ID Pulmonary: Yes: Asthma, Other (left chest tube for rib fracture related pneumothorax afte a fall) Gastrointestinal: Yes: Constipation, Other Hepatobiliary: Yes: Hepatitis C (cured several years ago with Dr Bedolla) Renal/: Yes: Renal Inusuff Infectious Disease: Yes: Other (Hepatitis C cured) Psych: Yes: Depression Musculoskeletal: Yes: Chronic low back pain (multiple thoracolumbar vertebral pathological fractures), Other (multiple thoracolumbar vertebral fractures) Endocrine: Yes: Diabetes Mellitus Dermatology: Yes: Other (varicose veins) Additional Medical History: Laser therapy for diabetic retinopathy - Past Surgical History Past Surgical History: Yes: Amputation (5th digit R foot), Tonsillectomy - Alcohol/Substance Use Hx Alcohol Use: No History of Substance Use: reports: Cocaine, Heroin - Smoking History Smoking history: Unknown if ever smoked Have you smoked in the past 12 months: No If you are a former smoker, when did you quit?: 1996 - Social History Usual Living Arrangement: With Spouse ADL: Independent 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 Travel: Yes (to [place] a few months ago) Home Medications - Allergies Allergies/Adverse Reactions: Allergies Allergy/AdvReac Type Severity Reaction Status Date / Time No Known Allergies Allergy Verified 01/13/19 05:46 - Home Medications Home Medications: Ambulatory Orders Acetaminophen [Tylenol .Regular Strength -] 650 mg PO Q6H PRN #0 tablet Buspirone HCl 15 mg PO BID 07/22/18 Ammonium Lactate Lotion [Lac-Hydrin 12] 1 applic TP BID PRN bottle 12/21/18 Aspirin [ASA -] 81 mg PO DAILY tab.chew 12/21/18 Atorvastatin Ca [Lipitor] 80 mg PO HS tablet 12/21/18 Insulin Sliding Scale [Novolog Vial Sliding Scale -] 1 vial SQ TIDAC units Pantoprazole Suspension [Protonix Packets For Oral Suspension -] 40 mg PO DAILY packet 12/21/18 Furosemide [Lasix -] 40 mg PO BID@0600,1400 #60 tablet MDD 2 01/12/19 Insulin (Levemir) [Levemir Vial] 10 units SQ DAILY@0700 #100 units 01/12/19 Metoprolol Tartrate [Lopressor -] 50 mg PO BID #30 tablet MDD 2 01/12/19 Sertraline HCl [Zoloft -] 50 mg PO DAILY #30 tablet MDD 1 01/12/19 Folic Acid 1 mg PO DAILY #30 tablet 01/16/19 Insulin Glargine,Hum.rec.anlog [Basaglar Kwikpen U-100] 15 units SQ ASDIR Methadone HCl 30 mg PO DAILY MDD 2 03/29/19 Tiotropium [place] [Spiriva Respimat] 1 puff IH BID 03/29/19 Methylnaltrexone [place] [Relistor -] 12 mg SQ Q2D@1000 PRN 04/28/19 Allopurinol 300 mg PO DAILY 05/24/19 Calcium 500Mg/Vit-D 200 Units [Os-Kyler 500+D -] 1 tab PO BID 05/24/19 Revlimid 10 mg PO DAILY 05/24/19 Family Disease History - Family Disease History Family Disease History: CA: Mother, Other: Father ( 90 natural causes), Mother, Brother Review of Systems - Review of Systems Constitutional: reports: Weakness Eyes: reports: No Symptoms HENT: reports: No Symptoms Neck: reports: No Symptoms Cardiovascular: reports: Shortness of Breath Respiratory: reports: Exercise Intolerance, SOB on Exertion Gastrointestinal: reports: No Symptoms Genitourinary: reports: No Symptoms Breasts: reports: No Symptoms Reported Musculoskeletal: reports: No Symptoms Integumentary: reports: No Symptoms Neurological: reports: No Symptoms Endocrine: reports: No Symptoms Hematology/Lymphatic: reports: Easily Bruised Vital Signs: Vital Signs Temperature 97.5 F L 06/04/19 17:32 Pulse Rate 51 L 06/04/19 17:32 Respiratory Rate 20 06/04/19 17:32 Blood Pressure 142/63 06/04/19 17:32 O2 Sat by Pulse Oximetry (%) 96 06/04/19 08:53 General: Well developed. Chronic ill. No acute distress. Head: Normocephalic. Atraumatic, Eyes: PERRLA, EOMI. Sclerae anicteric. Conjunctivae clear. Neck: Supple. No JVD. No bruits. Heart: Normal S1, S2: Regular rhythm and rate. No murmur. No gallop or rub. Lungs: Symmetrical air entry. Clear to auscultation. No crackle. No wheezing or rhonchi. Abdomen: Soft. Bowel sound positive. Non tender. No masses. Extremities: No edema. No clubbing or cyanosis. PD 2+, equal bilaterally. Neuro: Intact, no focal findings. AAO X3. - Other Data Labs, Other Data: CBC, BMP 06/04/19 06:45 06/04/19 06:30 Assessment/Plan 63 year old man with a PMHx of CHF with mildly reduced LVEF, pulmonary edema, HTN, DM, multiple myeloma, CKD, Hep C, COPD (oxygen dependent) admitted 06/01/19 for iv hydration by heme-onc because of worsening renal function. Recent echocardiograms Echo 10/31/18 at [facility] with contrast: Normal LV size, wall motion and systolic function. LVEF 60%. Echos at [facility] 07/21/18, 11/28/18 and 01/13/19: Mild global LV hypokinesis. LVEF 45- 50%. 1) CHF preserved/mid range LV systoic function: Currently stable without physical signs of fluid overload. Agree with holding furosemide and gentle IV hydration. Continue metoprolol. 2) Hypertension: BP is mildly elevated with mild sinus bradycardia. Add Norvasc 2.5 mg daily. Continue metoprolol. Please do not hesitate to call us for re-consult at any time if any further questions or additional issue arises regarding this patient.
--- NOTE | 2019-06-04 19:44 | PN ---
Progress Note (short form) - Note Progress Note: 63 year old gentleman with hx of myeloma, ckd, hep c ,htn, CHF, COPD( oxygen dependent) and dm who was sent in for iv hydration by heme onc. He was found to have elevated creatinine on routine labs. He was on lasix but asked to stop it on 06/01. He denies shortness of breath. On 06/04/19, he is doing well. Denied diarrhea. 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 Neuropathy (stocking glove distribution related to DM) Cardio/Vascular: Yes: CHF, HTN, Hyperlipdemia, SD Pulmonary: Yes: Asthma, Other (left chest tube for rib fracture related pneumothorax afte a fall) Gastrointestinal: Yes: Constipation, Other Hepatobiliary: Yes: Hepatitis C (cured several years ago with Dr Bedolla) Renal/: Yes: Renal Inusuff Infectious Disease: Yes: Other (Hepatitis C cured) Psych: Yes: Depression Musculoskeletal: Yes: Chronic low back pain (multiple thoracolumbar vertebral pathological fractures), Other (multiple thoracolumbar vertebral fractures) Endocrine: Yes: Diabetes Mellitus Dermatology: Yes: Other (varicose veins) Additional Medical History: Laser therapy for diabetic retinopathy - Past Surgical History Past Surgical History: Yes: Amputation (5th digit R foot), Tonsillectomy History of Substance Use: reports: Cocaine, Heroin - Smoking History Smoking history: Unknown if ever smoked - Social History 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 - Allergies Allergies/Adverse Reactions: Current Medications Generic Name Dose Route Start Last Admin Trade Name Freq PRN Reason Stop Dose Admin Acetaminophen 650 mg 06/02/19 19:06 Tylenol - PO Q6H PRN PAIN LEVEL 1-5 Allopurinol 300 mg 06/03/19 10:00 06/04/19 09:57 Zyloprim - PO 300 mg DAILY YAKOV Administration Aspirin 81 mg 06/03/19 10:00 06/04/19 09:57 Asa - PO 81 mg DAILY [facility]AK[facility] Administration Atorvastatin Calcium 80 mg 06/02/19 22:00 06/03/19 22:35 Lipitor - PO 80 mg HS YAKOV Administration Buspirone HCl 15 mg 06/02/19 22:00 06/04/19 09:57 Buspar - PO 15 mg BID YAKOV Administration Calcium Carbonate 500 mg 06/03/19 10:00 06/04/19 09:57 Os-Kyler 500mg - PO 500 mg DAILY [facility] Administration Fluconazole 100 mg 06/04/19 19:45 Diflucan - PO DAILY [facility] Folic Acid 1 mg 06/03/19 10:00 06/04/19 09:57 Folic Acid - PO 1 mg DAILY [facility] Administration Sodium Chloride 1,000 mls @ 42 mls/hr 06/03/19 07:15 06/04/19 06:42 Normal Saline - IV 42 mls/hr ASDIR [facility] Administration Insulin Aspart 1 vial 06/02/19 22:00 06/04/19 17:10 Novolog Vial Sliding Scale - SQ Not Given ACHS [facility] Protocol Insulin Detemir 15 units 06/03/19 07:00 06/04/19 06:42 Levemir Vial SQ Not Given DAILY@0700 [facility] Levofloxacin 750 mg 06/04/19 19:45 Levaquin PO DAILY [facility] Methylnaltrexone [place] 12 mg 06/03/19 10:00 06/04/19 09:59 Relistor - SQ Not Given DAILY [facility] Metoprolol Tartrate 50 mg 06/02/19 22:00 06/04/19 13:31 Lopressor - PO 50 mg BID [facility] Administration Prochlorperazine Maleate 10 mg 06/02/19 19:06 Compazine - PO Q8H PRN NAUSEA/VOMITTING Sertraline HCl 50 mg 06/03/19 10:00 06/04/19 09:57 Zoloft - PO 50 mg DAILY [facility] Administration Tamsulosin HCl 0.8 mg 06/03/19 08:30 06/04/19 09:57 Flomax - PO 0.8 mg DAILY@0830 [facility] Administration Tbo-Filgrastim 480 mcg 06/04/19 19:26 Granix - SQ 06/04/19 19:27 ONCE ONE Tiotropium [place] 2 puff 06/03/19 10:00 06/04/19 09:59 Spiriva Respimat IH 2 puff DAILY [facility] Administration Valacyclovir HCl 500 mg 06/03/19 10:00 06/04/19 09:57 Valtrex - PO 500 mg DAILY [facility] Administration Zolpidem Tartrate 5 mg 06/03/19 20:33 06/03/19 22:35 Ambien - PO 5 mg HS PRN Administration INSOMNIA Family Disease History - Family Disease History Family Disease History: CA: Mother, Other: Father ( 90 natural causes), Mother, Brother Last Vital Signs Temp Pulse Resp BP Pulse Ox 97.5 F L 51 L 20 142/63 96 06/04/19 17:32 06/04/19 17:32 06/04/19 17:32 06/04/19 17:32 06/04/19 08:53 Cor: RSR, No murmurs, No gallops Lungs: Clear to P&A Abd: Soft, Normal bowel sounds, No organomegaly Ext:No significant edema Skin: No rashes, Integument intact 06/04/19 06:45 06/04/19 06:30 Impression 1. multiple myeloma 2. CKD 3. hep C 4. htn 5. DM 6. 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 proteinuria 9. anemia 10. DARIO 63 y/o patient with myeloma, CKD, HTN, DM< COPD,Hep. C/Hep. Bcab+, methadone dependence, admitted with worsening renal insufficiency Myeloma light chains improving on revlimid On revlimid 10mg daily ---is on hold May need to reduce it to 5mg daily once neutropenia recovers Neutropenic. ANC 0.4. Will give one dose of Neupogen 480 mg SC tonight. Will add Fluconazole 100 mg po and Levaquin 750 mg until ANC above 0.5 Pam Nephrology help. Renal US negative. Creatinine stable. [facility] Cardiology input. Norvasc 2.5 mg po daily added for HTN.
[2019-06-04] MEDS ORDERED: levoFLOXacin 500 MG, levoFLOXacin 250 MG PO SCH (20:00)
[2019-06-04] MEDS ORDERED: levoFLOXacin 750 MG TABLET PO SCH (20:00)
[2019-06-04] MEDS: FLUCONAZOLE 100 MG TABLET (UD) PO SCH (20:00)
[2019-06-04] MEDS: TBO-FILGRASTIM 480 MCG/0.8 ML DISP.SYRIN SQ ONE ×2 (21:00→21:43)
[2019-06-04] MEDS: ATORVASTATIN CA 80 MG TABLET (FP) PO SCH (21:15)
[2019-06-04] MEDS: ZOLPIDEM TARTRATE 5 MG TABLET PO PRN (21:15)
[2019-06-04] MEDS: amLODIPine BESYLATE 2.5 MG TABLET (FP) PO SCH (21:15)
--- NOTE | 2019-06-04 21:55 | PN ---
Progress Note (short form) - Note Progress Note: covering dr herndon Problems 1. multiple myeloma 2. CKD 3. hep C 4. htn 5. DM 6. 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 proteinuria 9. anemia 10. DARIO Last Vital Signs Temp Pulse Resp BP Pulse Ox 98 F 55 L 18 122/62 98 06/03/19 17:19 06/03/19 17:19 06/03/19 17:19 06/03/19 17:19 06/03/19 17:19 alert in nad Lungs clear Heart reg Abd soft nontender Ext no edema CBC, BMP 06/04/19 06:45 06/04/19 06:30 CBC, BMP 06/03/19 08:35 06/03/19 08:35 IMP- DARIO improving very gradually but not yet at baseline probably prerenal 2/2 diuretic use and volume depletion urine is dilute and with ++ proteinuria since 2016 Plan - check urine lytes and ventilating expert - check renal ultrasound - repeat bmp after fluids to see if there is improvement
[2019-06-05] MEDS: INSULIN SLIDING SCALE (NOVOLOG) 1 VIAL SQ SCH ×4 (06:37→21:19)
[2019-06-05] MEDS: INSULIN (LEVEMIR) 100 UNITS/ML UNITS SQ SCH (06:37)
[2019-06-05] MEDS: TAMSULOSIN HCL 0.4 MG CAP PO SCH (09:08)
[2019-06-05] MEDS: FLUCONAZOLE 100 MG TABLET (UD) PO SCH (09:08)
[2019-06-05] MEDS: busPIRone HCL 5 MG TABLET PO SCH ×2 (09:08→21:21)
[2019-06-05] MEDS: ALLOPURINOL 300 MG TABLET (FP) PO SCH (09:08)
[2019-06-05] MEDS: FOLIC ACID 1 MG TABLET (FP) PO SCH (09:08)
[2019-06-05] MEDS: METOPROLOL TARTRATE 50 MG TABLET (FP) PO SCH ×2 (09:08→21:21)
[2019-06-05] MEDS: amLODIPine BESYLATE 2.5 MG TABLET (FP) PO SCH (09:08)
[2019-06-05] MEDS: ASPIRIN 81 MG CHEWABLE TABLETS PO SCH (09:08)
[2019-06-05] MEDS: CALCIUM (OYSTER SHELL) 500 MG TABLET (FP) PO SCH (09:08)
[2019-06-05] MEDS: valACYclovir HCL 500 MG TABLET (FP) PO SCH (09:08)
[2019-06-05] MEDS: SERTRALINE HCL 50 MG TABLET (FP) PO SCH (09:09)
[2019-06-05] MEDS: TIOTROPIUM BROMIDE 2.5 MCG (SPIRIVA) RESPIMAT INHALER IH SCH (09:09)
[2019-06-05] MEDS: Methylnaltrexone Bromide 12 MG/0.6 ML KIT SQ SCH (09:09)
--- NOTE | 2019-06-05 10:50 | PN ---
Progress Note (short form) - Note Progress Note: Patient seen and examined 63 y/o patient with myeloma, CKD, HTN, DM, COPD,Hep. C/Hep. B ab+, methadone dependence, admitted with worsening renal insufficiency ROS - no headaches , diplopia, epistaxis, dysphagia, chest pain, palpatations, GI with some diarrhea, no nausea, emesis, abdominal pain, no dysuria, hematuria Last Vital Signs Temp Pulse Resp BP Pulse Ox 98.4 F 65 20 144/66 98 06/05/19 09:27 06/05/19 09:27 06/05/19 09:27 06/05/19 09:27 06/05/19 09:00 HEENT: [place], EOM Intact Oropharynx: No thrush, No mucositis Cor: RSR, No murmurs, No gallops Lungs: Clear to P&A Abd: Soft, Normal bowel sounds, No organomegaly Ext:No significant edema, stasis Skin: No rashes, Integument intact CBC, BMP 06/04/19 06:45 06/04/19 06:30 Current Medications Generic Name Dose Route Start Last Admin Trade Name Freq PRN Reason Stop Dose Admin Acetaminophen 650 mg 06/02/19 19:06 Tylenol - PO Q6H PRN PAIN LEVEL 1-5 Allopurinol 300 mg 06/03/19 10:00 06/05/19 09:08 Zyloprim - PO 300 mg DAILY [facility] Administration Amlodipine Besylate 2.5 mg 06/04/19 20:00 06/05/19 09:08 Norvasc - PO 2.5 mg DAILY [facility] Administration Aspirin 81 mg 06/03/19 10:00 06/05/19 09:08 Asa - PO 81 mg DAILY [facility] Administration Atorvastatin Calcium 80 mg 06/02/19 22:00 06/04/19 21:15 Lipitor - PO 80 mg HS [facility] Administration Buspirone HCl 15 mg 06/02/19 22:00 06/05/19 09:08 Buspar - PO 15 mg BID [facility] Administration Calcium Carbonate 500 mg 06/03/19 10:00 06/05/19 09:08 Os-Kyler 500mg - PO 500 mg DAILY [facility] Administration Fluconazole 100 mg 06/04/19 19:45 06/05/19 09:08 Diflucan - PO 100 mg DAILY [facility] Administration Folic Acid 1 mg 06/03/19 10:00 06/05/19 09:08 Folic Acid - PO 1 mg DAILY [facility] Administration Sodium Chloride 1,000 mls @ 42 mls/hr 06/03/19 07:15 06/04/19 06:42 Normal Saline - IV 42 mls/hr ASDIR [facility] Administration Insulin Aspart 1 vial 06/02/19 22:00 06/05/19 06:37 Novolog Vial Sliding Scale - SQ Not Given ACHS [facility] Protocol Insulin Detemir 15 units 06/03/19 07:00 06/05/19 06:37 Levemir Vial SQ 15 units DAILY@0700 [facility] Administration Levofloxacin 500 mg/ 750 mg 06/04/19 20:00 06/04/19 21:15 Levofloxacin 250 mg PO 750 mg Q48H [facility] Administration Methylnaltrexone [place] 12 mg 06/03/19 10:00 06/05/19 09:09 Relistor - SQ Not Given DAILY [facility] Metoprolol Tartrate 50 mg 06/02/19 22:00 06/05/19 09:08 Lopressor - PO 50 mg BID [facility] Administration Prochlorperazine Maleate 10 mg 06/02/19 19:06 Compazine - PO Q8H PRN NAUSEA/VOMITTING Sertraline HCl 50 mg 06/03/19 10:00 06/05/19 09:09 Zoloft - PO 50 mg DAILY [facility] Administration Tamsulosin HCl 0.8 mg 06/03/19 08:30 06/05/19 09:08 Flomax - PO 0.8 mg DAILY@0830 [facility] Administration Tiotropium [place] 2 puff 06/03/19 10:00 06/05/19 09:09 Spiriva Respimat IH 2 puff DAILY [facility] Administration Valacyclovir HCl 500 mg 06/03/19 10:00 06/05/19 09:08 Valtrex - PO 500 mg DAILY [facility] Administration Zolpidem Tartrate 5 mg 06/03/19 20:33 06/04/19 21:15 Ambien - PO 5 mg HS PRN Administration INSOMNIA IMpression: Multiple myeloma CKD, Hepatitis C Hepatitis C - Ab+ DM COPD Methadone maintenance \Neutropenia/Pancytopenia Plan : Neupogen Monitor CBC, chemistries Hold Revlimid ? adjust dosing of revlimid in out patient setting
[2019-06-05 11:05] LABS: BASO % 0.5 % (0-2.0); EOS % 4.5 % (0-4.5); HEMATOCRIT 28.6 % (35.4-49); HEMOGLOBIN 9.3 GM/dL (11.7-16.9); LYMPH % 32.2 % (8-40); MCH 27.4 pg (25.7-33.7); MCHC 32.6 g/dl (32.0-35.9); MEAN CELL VOLUME 84.2 fl (80-96); MEAN PLT VOLUME 8.6 fl (7.5-11.1); MONO % 7.9 % (3.8-10.2); NEUT % 54.9 % (42.8-82.8); PLATELET COUNT 100 K/MM3 (134-434); RDW 14.7 % (11.9-15.9); WHITE BLOOD COUNT 2.2 K/mm3 (4.0-10.0)
[2019-06-05] MEDS: SODIUM CHLORIDE 1,000 ML IV SCH (11:17)
[2019-06-05 11:30] LABS: ALBUMIN 2.3 g/dl (3.4-5.0); BILIRUBIN,TOTAL 0.2 mg/dL (0.2-1); BLOOD UREA NITROGEN 33.6 mg/dL (7-18); CALCIUM 7.5 mg/dL (8.5-10.1); POTASSIUM 3.9 mmol/L (3.5-5.1)
--- NOTE | 2019-06-05 13:11 | PN ---
Progress Note (short form) - Note Progress Note: covering dr yanick Mccoy 1. multiple myeloma 2. CKD 3. hep C 4. htn 5. DM 6. 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 proteinuria 9. anemia 10. DARIO Current Medications Acetaminophen (Tylenol -) 650 mg PO Q6H PRN PRN Reason: PAIN LEVEL 1-5 Allopurinol (Zyloprim -) 300 mg PO DAILY [facility] Last Admin: 06/05/19 09:08 Dose: 300 mg Amlodipine Besylate (Norvasc -) 2.5 mg PO DAILY [facility] Last Admin: 06/05/19 09:08 Dose: 2.5 mg Aspirin (Asa -) 81 mg PO DAILY [facility] Last Admin: 06/05/19 09:08 Dose: 81 mg Atorvastatin Calcium (Lipitor -) 80 mg PO HS [facility] Last Admin: 06/04/19 21:15 Dose: 80 mg Buspirone HCl (Buspar -) 15 mg PO BID [facility] Last Admin: 06/05/19 09:08 Dose: 15 mg Calcium Carbonate (Os-Kyler 500mg -) 500 mg PO DAILY [facility] Last Admin: 06/05/19 09:08 Dose: 500 mg Folic Acid (Folic Acid -) 1 mg PO DAILY [facility] Last Admin: 06/05/19 09:08 Dose: 1 mg Sodium Chloride (Normal Saline -) 1,000 mls @ 42 mls/hr IV ASDIR [facility] Last Admin: 06/04/19 06:42 Dose: 42 mls/hr Insulin Aspart (Novolog Vial Sliding Scale -) 1 vial SQ ACHS [facility]; Protocol Last Admin: 06/05/19 12:13 Dose: Not Given Insulin Detemir (Levemir Vial) 15 units SQ DAILY@0700 [facility] Last Admin: 06/05/19 06:37 Dose: 15 units Levofloxacin 500 mg/ (Levofloxacin 250 mg) 750 mg PO Q48H [facility] Last Admin: 06/04/19 21:15 Dose: 750 mg Methadone HCl (Dolophine -) 35 mg PO DAILY@0600 [facility] Methylnaltrexone [place] (Relistor -) 12 mg SQ DAILY [facility] Last Admin: 06/05/19 09:09 Dose: Not Given Metoprolol Tartrate (Lopressor -) 50 mg PO BID [facility] Last Admin: 06/05/19 09:08 Dose: 50 mg Nystatin (Nystatin Oral Suspension -) 500,000 units PO Q6HPO [facility] Prochlorperazine Maleate (Compazine -) 10 mg PO Q8H PRN PRN Reason: NAUSEA/VOMITTING Sertraline HCl (Zoloft -) 50 mg PO DAILY [facility] Last Admin: 06/05/19 09:09 Dose: 50 mg Tamsulosin HCl (Flomax -) 0.8 mg PO DAILY@0830 [facility] Last Admin: 06/05/19 09:08 Dose: 0.8 mg Tbo-Filgrastim (Granix -) 480 mcg SQ DAILY [facility] Tiotropium [place] (Spiriva Respimat) 2 puff IH DAILY [facility] Last Admin: 06/05/19 09:09 Dose: 2 puff Valacyclovir HCl (Valtrex -) 500 mg PO DAILY [facility] Last Admin: 06/05/19 09:08 Dose: 500 mg Zolpidem Tartrate (Ambien -) 5 mg PO HS PRN PRN Reason: INSOMNIA Last Admin: 06/04/19 21:15 Dose: 5 mg Last Vital Signs Temp Pulse Resp BP Pulse Ox 98.4 F 65 20 144/66 98 06/05/19 09:27 06/05/19 09:27 06/05/19 09:27 06/05/19 09:27 06/05/19 09:00 alert in nad Lungs clear Heart reg Abd soft nontender Ext no edema CBC, BMP 06/05/19 10:55 06/05/19 10:55 CBC, BMP 06/04/19 06:45 06/04/19 06:30 IMP- DARIO improving very gradually but not yet at baseline probably prerenal 2/2 diuretic use and volume depletion urine is dilute and with ++ proteinuria since 2017 Plan - check urine lytes and outpatient therapist - check renal ultrasound - repeat bmp after fluids to see if there is improvement
[2019-06-05] MEDS: NYSTATIN 500,000 UNITS/5 ML SUSPENSION PO SCH ×2 (13:17→17:04)
[2019-06-05] MEDS ORDERED: INSULIN (NOVOLOG) ASPART 100 UNITS/ML 10ML VIAL ONE (20:51)
[2019-06-05] MEDS: ATORVASTATIN CA 80 MG TABLET (FP) PO SCH (21:21)
[2019-06-06] MEDS: NYSTATIN 500,000 UNITS/5 ML SUSPENSION PO SCH ×4 (01:09→17:53)
[2019-06-06] MEDS ORDERED: METHADONE HCL 5 MG TABLET ONE (05:59)
[2019-06-06] MEDS ORDERED: METHADONE HCL 40 MG DISPERSABLE TABLET PO SCH (06:00)
[2019-06-06] MEDS ORDERED: METHADONE HCL 10 MG TABLET ONE (06:00)
[2019-06-06] MEDS: METHADONE 30 MG, METHADONE 5 MG PO SCH (06:01)
[2019-06-06] MEDS: INSULIN SLIDING SCALE (NOVOLOG) 1 VIAL SQ SCH ×4 (06:02→21:10)
[2019-06-06] MEDS: INSULIN (LEVEMIR) 100 UNITS/ML UNITS SQ SCH (06:24)
[2019-06-06 06:29] LABS: BASO % 0.4 % (0-2.0); EOS % 3.1 % (0-4.5); HEMATOCRIT 28.2 % (35.4-49); HEMOGLOBIN 9.2 GM/dL (11.7-16.9); LYMPH % 34.5 % (8-40); MCH 27.3 pg (25.7-33.7); MCHC 32.6 g/dl (32.0-35.9); MEAN CELL VOLUME 83.7 fl (80-96); MEAN PLT VOLUME 8.7 fl (7.5-11.1); MONO % 11.2 % (3.8-10.2); NEUT % 50.8 % (42.8-82.8); PLATELET COUNT 120 K/MM3 (134-434); RBC 3.36 M/mm3 (4.00-5.60); RDW 14.2 % (11.9-15.9); WHITE BLOOD COUNT 3.2 K/mm3 (4.0-10.0)
[2019-06-06 07:01] LABS: ALBUMIN 2.3 g/dl (3.4-5.0); BILIRUBIN,TOTAL 0.2 mg/dL (0.2-1); BLOOD UREA NITROGEN 33.4 mg/dL (7-18); CALCIUM 7.8 mg/dL (8.5-10.1); MAGNESIUM 1.4 mg/dL (1.8-2.4); POTASSIUM 3.9 mmol/L (3.5-5.1); TOT PROT 5.9 g/dl (6.4-8.2)
[2019-06-06] MEDS: POLYETHYLENE GLYCOL 3350 119 GM BTL PO SCH ×2 (09:30→16:30)
[2019-06-06] MEDS ORDERED: PT OWN MED DRAWER 7, Y5N ONE (09:46)
[2019-06-06] MEDS: busPIRone HCL 5 MG TABLET PO SCH ×2 (09:56→21:05)
[2019-06-06] MEDS: CALCIUM (OYSTER SHELL) 500 MG TABLET (FP) PO SCH (09:56)
[2019-06-06] MEDS: METOPROLOL TARTRATE 50 MG TABLET (FP) PO SCH ×2 (09:56→21:05)
[2019-06-06] MEDS: FOLIC ACID 1 MG TABLET (FP) PO SCH (09:56)
[2019-06-06] MEDS: SERTRALINE HCL 50 MG TABLET (FP) PO SCH (09:56)
[2019-06-06] MEDS: ASPIRIN 81 MG CHEWABLE TABLETS PO SCH (09:56)
[2019-06-06] MEDS: amLODIPine BESYLATE 2.5 MG TABLET (FP) PO SCH (09:56)
[2019-06-06] MEDS: ALLOPURINOL 300 MG TABLET (FP) PO SCH (09:56)
[2019-06-06] MEDS: TAMSULOSIN HCL 0.4 MG CAP PO SCH (09:57)
[2019-06-06] MEDS: TIOTROPIUM BROMIDE 2.5 MCG (SPIRIVA) RESPIMAT INHALER IH SCH (09:57)
[2019-06-06] MEDS ORDERED: TBO-FILGRASTIM 480 MCG/0.8 ML DISP.SYRIN SQ SCH (10:00)
[2019-06-06] MEDS: Methylnaltrexone Bromide 12 MG/0.6 ML KIT SQ SCH (10:04)
[2019-06-06 11:32] LABS: ANISOCYTOSIS 0; HELMET CELLS 0; HOWELL-JOLLY BODIES 0; MACROCYTOSIS 0; OVALOCYTE 0; PLATELET ESTIMATE DECREASED; ROULEAU 0; SICKELED CELLS 0; TARGET CELLS 0; TEAR DROP CELLS 0; TOXIC GRANULATION 0
[2019-06-06] MEDS: valACYclovir HCL 500 MG TABLET (FP) PO SCH (13:18)
[2019-06-06] MEDS: SODIUM CHLORIDE 1,000 ML IV SCH (13:20)
[2019-06-06] MEDS ORDERED: MAGNESIUM SULF 50% (8.12 MEQ/2 ML-1 GM VIAL) IVPB ONE (15:06)
--- NOTE | 2019-06-06 15:08 | PN ---
Progress Note, Physician History of Present Illness: Pt seen and examined at bedside. He is awake and appears comfortable. He denies shortness of breath. - Current Medication List Current Medications: Active Medications Acetaminophen (Tylenol -) 650 mg PO Q6H PRN PRN Reason: PAIN LEVEL 1-5 Allopurinol (Zyloprim -) 300 mg PO DAILY [facility] Last Admin: 06/06/19 09:56 Dose: 300 mg Amlodipine Besylate (Norvasc -) 2.5 mg PO DAILY [facility] Last Admin: 06/06/19 09:56 Dose: 2.5 mg Aspirin (Asa -) 81 mg PO DAILY [facility] Last Admin: 06/06/19 09:56 Dose: 81 mg Atorvastatin Calcium (Lipitor -) 80 mg PO HS [facility] Last Admin: 06/05/19 21:21 Dose: 80 mg Buspirone HCl (Buspar -) 15 mg PO BID [facility] Last Admin: 06/06/19 09:56 Dose: 15 mg Calcium Carbonate (Os-Kyler 500mg -) 500 mg PO DAILY [facility] Last Admin: 06/06/19 09:56 Dose: 500 mg Folic Acid (Folic Acid -) 1 mg PO DAILY [facility] Last Admin: 06/06/19 09:56 Dose: 1 mg Sodium Chloride (Normal Saline -) 1,000 mls @ 42 mls/hr IV ASDIR [facility] Last Admin: 06/06/19 13:20 Dose: 42 mls/hr Insulin Aspart (Novolog Vial Sliding Scale -) 1 vial SQ ACHS [facility]; Protocol Last Admin: 06/06/19 13:20 Dose: Not Given Insulin Detemir (Levemir Vial) 15 units SQ DAILY@0700 [facility] Last Admin: 06/06/19 06:24 Dose: 15 units Levofloxacin 500 mg/ (Levofloxacin 250 mg) 750 mg PO Q48H [facility] Last Admin: 06/04/19 21:15 Dose: 750 mg Methadone HCl 30 mg/ Methadone (HCl 5 mg) 35 mg PO DAILY@0600 [facility] Last Admin: 06/06/19 06:01 Dose: 35 mg Methylnaltrexone [place] (Relistor -) 12 mg SQ DAILY [facility] Last Admin: 06/06/19 10:04 Dose: Not Given Metoprolol Tartrate (Lopressor -) 50 mg PO BID [facility] Last Admin: 06/06/19 09:56 Dose: 50 mg Nystatin (Nystatin Oral Suspension -) 500,000 units PO Q6HPO [facility] Last Admin: 06/06/19 13:20 Dose: 500,000 units Prochlorperazine Maleate (Compazine -) 10 mg PO Q8H PRN PRN Reason: NAUSEA/VOMITTING Sertraline HCl (Zoloft -) 50 mg PO DAILY [facility] Last Admin: 06/06/19 09:56 Dose: 50 mg Tamsulosin HCl (Flomax -) 0.8 mg PO DAILY@0830 [facility] Last Admin: 06/06/19 09:57 Dose: 0.8 mg Tbo-Filgrastim (Granix -) 480 mcg SQ DAILY [facility] Last Admin: 06/06/19 09:57 Dose: 480 mcg Tiotropium [place] (Spiriva Respimat) 2 puff IH DAILY [facility] Last Admin: 06/06/19 09:57 Dose: 2 puff Valacyclovir HCl (Valtrex -) 500 mg PO DAILY [facility] Last Admin: 06/06/19 13:18 Dose: 500 mg Zolpidem Tartrate (Ambien -) 5 mg PO HS PRN PRN Reason: INSOMNIA Last Admin: 06/04/19 21:15 Dose: 5 mg - Objective Vital Signs: Vital Signs Temperature 97.2 F L 06/06/19 14:20 Pulse Rate 60 06/06/19 14:20 Respiratory Rate 18 06/06/19 14:20 Blood Pressure 150/87 06/06/19 14:20 O2 Sat by Pulse Oximetry (%) 98 06/05/19 21:00 Constitutional: Yes: Calm Eyes: Yes: Conjunctiva Clear HENT: Yes: Atraumatic Neck: Yes: Supple Cardiovascular: Yes: S1, S2 Respiratory: Yes: On Nasal O2 Gastrointestinal: Yes: Soft Genitourinary: Yes: WNL Musculoskeletal: Yes: WNL Edema: LLE: Trace, RLE: Trace Neurological: Yes: Oriented Psychiatric: Yes: Oriented Labs: CBC, BMP 06/06/19 05:44 06/06/19 05:44 Problem List - Problems (1) DARIO (acute kidney injury) Code(s): N17.9 - ACUTE KIDNEY FAILURE, UNSPECIFIED Assessment/Plan Current Medications Generic Name Dose Route Start Last Admin Trade Name Freq PRN Reason Stop Dose Admin Acetaminophen 650 mg 06/02/19 19:06 Tylenol - PO Q6H PRN PAIN LEVEL 1-5 Allopurinol 300 mg 06/03/19 10:00 06/06/19 09:56 Zyloprim - PO 300 mg DAILY [facility] Administration Amlodipine Besylate 2.5 mg 06/04/19 20:00 06/06/19 09:56 Norvasc - PO 2.5 mg DAILY [facility] Administration Aspirin 81 mg 06/03/19 10:00 06/06/19 09:56 Asa - PO 81 mg DAILY [facility] Administration Atorvastatin Calcium 80 mg 06/02/19 22:00 06/05/19 21:21 Lipitor - PO 80 mg HS [facility] Administration Buspirone HCl 15 mg 06/02/19 22:00 06/06/19 09:56 Buspar - PO 15 mg BID [facility] Administration Calcium Carbonate 500 mg 06/03/19 10:00 06/06/19 09:56 Os-Kyler 500mg - PO 500 mg DAILY [facility] Administration Folic Acid 1 mg 06/03/19 10:00 06/06/19 09:56 Folic Acid - PO 1 mg DAILY [facility] Administration Sodium Chloride 1,000 mls @ 42 mls/hr 06/03/19 07:15 06/06/19 13:20 Normal Saline - IV 42 mls/hr ASDIR [facility] Administration Insulin Aspart 1 vial 06/02/19 22:00 06/06/19 13:20 Novolog Vial Sliding Scale - SQ [facility] Insulin Detemir 15 units 06/03/19 07:00 06/06/19 06:24 Levemir Vial SQ 15 units DAILY@0700 [facility] Administration Levofloxacin 500 mg/ 750 mg 06/04/19 20:00 06/04/19 21:15 Levofloxacin 250 mg PO 750 mg Q48H [facility] Administration Magnesium Sulfate 2 gm 06/06/19 15:06 Magnesium Sulfate IVPB 06/06/19 15:07 ONCE ONE Methadone HCl 30 mg/ Methadone 35 mg 06/06/19 06:00 06/06/19 06:01 HCl 5 mg PO 35 mg DAILY@0600 [facility] Administration Methylnaltrexone [place] 12 mg 06/03/19 10:00 06/06/19 10:04 Relistor - SQ Not Given DAILY [facility] Metoprolol Tartrate 50 mg 06/02/19 22:00 06/06/19 09:56 Lopressor - PO 50 mg BID [facility] Administration Nystatin 500,000 units 06/05/19 12:00 06/06/19 13:20 Nystatin Oral Suspension - PO 500,000 units Q6HPO [facility] Administration Prochlorperazine Maleate 10 mg 06/02/19 19:06 Compazine - PO Q8H PRN NAUSEA/VOMITTING Sertraline HCl 50 mg 06/03/19 10:00 06/06/19 09:56 Zoloft - PO 50 mg DAILY [facility] Administration Tamsulosin HCl 0.8 mg 06/03/19 08:30 06/06/19 09:57 Flomax - PO 0.8 mg DAILY@0830 [facility] Administration Tbo-Filgrastim 480 mcg 06/06/19 10:00 06/06/19 09:57 Granix - SQ 480 mcg DAILY [facility] Administration Tiotropium [place] 2 puff 06/03/19 10:00 06/06/19 09:57 Spiriva Respimat IH 2 puff DAILY [facility] Administration Valacyclovir HCl 500 mg 06/03/19 10:00 06/06/19 13:18 Valtrex - PO 500 mg DAILY [facility] Administration Zolpidem Tartrate 5 mg 06/03/19 20:33 06/04/19 21:15 Ambien - PO 5 mg HS PRN Administration INSOMNIA Impression 1. multiple myeloma 2. CKD 3. hep C 4. htn 5. DM 6. 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 proteinuria 9. anemia 10. DARIO Plan - replace mag - renal function is improving - agree with decreasing fluids - negative hydro on ultrasound
--- NOTE | 2019-06-06 17:40 | PN ---
Progress Note (short form) - Note Progress Note: Patient seen and examined Denies significant pains Denies significant shortness of breath or dyspnea Last Vital Signs Temp Pulse Resp BP Pulse Ox 97.2 F L 60 18 150/87 98 06/06/19 14:20 06/06/19 14:20 06/06/19 14:20 06/06/19 14:20 06/06/19 09:00 HEENT: [place], EOM Intact Cor: RSR, No murmurs, No gallops Lungs: Rales at bases Abd: Soft, Normal bowel sounds, no masses Ext:No significant edema Skin: stasis LE's, Integument intact CBC, BMP 06/06/19 05:44 06/06/19 05:44 Current Medications Generic Name Dose Route Start Last Admin Trade Name Freq PRN Reason Stop Dose Admin Acetaminophen 650 mg 06/02/19 19:06 Tylenol - PO Q6H PRN PAIN LEVEL 1-5 Allopurinol 300 mg 06/03/19 10:00 06/06/19 09:56 Zyloprim - PO 300 mg DAILY [facility] Administration Amlodipine Besylate 2.5 mg 06/04/19 20:00 06/06/19 09:56 Norvasc - PO 2.5 mg DAILY [facility] Administration Aspirin 81 mg 06/03/19 10:00 06/06/19 09:56 Asa - PO 81 mg DAILY [facility] Administration Atorvastatin Calcium 80 mg 06/02/19 22:00 06/05/19 21:21 Lipitor - PO 80 mg HS [facility] Administration Buspirone HCl 15 mg 06/02/19 22:00 06/06/19 09:56 Buspar - PO 15 mg BID [facility] Administration Calcium Carbonate 500 mg 06/03/19 10:00 06/06/19 09:56 Os-Kyler 500mg - PO 500 mg DAILY [facility] Administration Folic Acid 1 mg 06/03/19 10:00 06/06/19 09:56 Folic Acid - PO 1 mg DAILY [facility] Administration Sodium Chloride 1,000 mls @ 42 mls/hr 06/03/19 07:15 06/06/19 13:20 Normal Saline - IV 42 mls/hr ASDIR [facility] Administration Insulin Aspart 1 vial 06/02/19 22:00 06/06/19 17:21 Novolog Vial Sliding Scale - SQ Not Given ACHS [facility] Protocol Insulin Detemir 15 units 06/03/19 07:00 06/06/19 06:24 Levemir Vial SQ 15 units DAILY@0700 [facility] Administration Levofloxacin 500 mg/ 750 mg 06/04/19 20:00 06/04/19 21:15 Levofloxacin 250 mg PO 750 mg Q48H [facility] Administration Methadone HCl 30 mg/ Methadone 35 mg 06/06/19 06:00 06/06/19 06:01 HCl 5 mg PO 35 mg DAILY@0600 [facility] Administration Methylnaltrexone [place] 12 mg 06/03/19 10:00 06/06/19 10:04 Relistor - SQ Not Given DAILY [facility] Metoprolol Tartrate 50 mg 06/02/19 22:00 06/06/19 09:56 Lopressor - PO 50 mg BID [facility] Administration Nystatin 500,000 units 06/05/19 12:00 06/06/19 13:20 Nystatin Oral Suspension - PO 500,000 units Q6HPO [facility] Administration Polyethylene Glycol 17 gm 06/06/19 16:15 Miralax (For Daily Use) - PO BID [facility] Prochlorperazine Maleate 10 mg 06/02/19 19:06 Compazine - PO Q8H PRN NAUSEA/VOMITTING Sertraline HCl 50 mg 06/03/19 10:00 06/06/19 09:56 Zoloft - PO 50 mg DAILY [facility] Administration Tamsulosin HCl 0.8 mg 06/03/19 08:30 06/06/19 09:57 Flomax - PO 0.8 mg DAILY@0830 [facility] Administration Tbo-Filgrastim 480 mcg 06/06/19 10:00 06/06/19 09:57 Granix - SQ 480 mcg DAILY [facility] Administration Tiotropium [place] 2 puff 06/03/19 10:00 06/06/19 09:57 Spiriva Respimat IH 2 puff DAILY [facility] Administration Valacyclovir HCl 500 mg 06/03/19 10:00 06/06/19 13:18 Valtrex - PO 500 mg DAILY [facility] Administration Zolpidem Tartrate 5 mg 06/03/19 20:33 06/04/19 21:15 Ambien - PO 5 mg HS PRN Administration INSOMNIA Impression: Myeloma Hepatitis C Pancytopenia- improving CKD- improving Hypomagnesemia- repleted Volume overload- improved S/P neupogen therapy - to discontinue
[2019-06-06] MEDS: ATORVASTATIN CA 80 MG TABLET (FP) PO SCH (21:05)
[2019-06-07] MEDS: NYSTATIN 500,000 UNITS/5 ML SUSPENSION PO SCH ×4 (01:07→18:29)
[2019-06-07] MEDS ORDERED: METHADONE HCL 10 MG TABLET ONE (05:53)
[2019-06-07] MEDS ORDERED: METHADONE HCL 5 MG TABLET ONE (05:53)
[2019-06-07] MEDS: INSULIN SLIDING SCALE (NOVOLOG) 1 VIAL SQ SCH ×4 (06:11→21:47)
[2019-06-07] MEDS: METHADONE 30 MG, METHADONE 5 MG PO SCH (06:11)
[2019-06-07] MEDS: INSULIN (LEVEMIR) 100 UNITS/ML UNITS SQ SCH (08:33)
[2019-06-07] MEDS: TAMSULOSIN HCL 0.4 MG CAP PO SCH (08:35)
[2019-06-07] MEDS ORDERED: PT OWN MED DRAWER 7, Y5N ONE (10:22)
[2019-06-07] MEDS: Methylnaltrexone Bromide 12 MG/0.6 ML KIT SQ SCH (10:30)
[2019-06-07] MEDS: CALCIUM (OYSTER SHELL) 500 MG TABLET (FP) PO SCH (10:30)
[2019-06-07] MEDS: METOPROLOL TARTRATE 50 MG TABLET (FP) PO SCH ×2 (10:30→21:45)
[2019-06-07] MEDS: ALLOPURINOL 300 MG TABLET (FP) PO SCH (10:30)
[2019-06-07] MEDS: SERTRALINE HCL 50 MG TABLET (FP) PO SCH (10:30)
[2019-06-07] MEDS: FOLIC ACID 1 MG TABLET (FP) PO SCH (10:30)
[2019-06-07] MEDS: ASPIRIN 81 MG CHEWABLE TABLETS PO SCH (10:30)
[2019-06-07] MEDS: amLODIPine BESYLATE 2.5 MG TABLET (FP) PO SCH (10:30)
[2019-06-07] MEDS: busPIRone HCL 5 MG TABLET PO SCH ×2 (10:30→21:45)
[2019-06-07] MEDS: POLYETHYLENE GLYCOL 3350 119 GM BTL PO SCH ×2 (10:30→21:46)
[2019-06-07] MEDS: valACYclovir HCL 500 MG TABLET (FP) PO SCH (10:30)
[2019-06-07] MEDS: TIOTROPIUM BROMIDE 2.5 MCG (SPIRIVA) RESPIMAT INHALER IH SCH (10:31)
[2019-06-07] MEDS: FUROSEMIDE 40 MG TABLET (FP) PO SCH (12:44)
[2019-06-07 13:05] LABS: BASO % 0.6 % (0-2.0); EOS % 1.6 % (0-4.5); HEMATOCRIT 29.9 % (35.4-49); HEMOGLOBIN 9.9 GM/dL (11.7-16.9); LYMPH % 26.4 % (8-40); MCH 27.6 pg (25.7-33.7); MCHC 32.9 g/dl (32.0-35.9); MEAN CELL VOLUME 83.9 fl (80-96); MEAN PLT VOLUME 8.1 fl (7.5-11.1); MONO % 13.8 % (3.8-10.2); NEUT % 57.6 % (42.8-82.8); PLATELET COUNT 183 K/MM3 (134-434); RBC 3.57 M/mm3 (4.00-5.60); RDW 14.6 % (11.9-15.9); WHITE BLOOD COUNT 6.1 K/mm3 (4.0-10.0)
--- NOTE | 2019-06-07 13:10 | PN ---
Progress Note, Physician History of Present Illness: Pt seen and examined at bedside. He is awake and alert. he complains of some shortness of breath with activity. - Current Medication List Current Medications: Active Medications Acetaminophen (Tylenol -) 650 mg PO Q6H PRN PRN Reason: PAIN LEVEL 1-5 Allopurinol (Zyloprim -) 300 mg PO DAILY [facility] Last Admin: 06/07/19 10:30 Dose: 300 mg Amlodipine Besylate (Norvasc -) 2.5 mg PO DAILY [facility] Last Admin: 06/07/19 10:30 Dose: 2.5 mg Aspirin (Asa -) 81 mg PO DAILY [facility] Last Admin: 06/07/19 10:30 Dose: 81 mg Atorvastatin Calcium (Lipitor -) 80 mg PO HS [facility] Last Admin: 06/06/19 21:05 Dose: 80 mg Buspirone HCl (Buspar -) 15 mg PO BID [facility] Last Admin: 06/07/19 10:30 Dose: 15 mg Calcium Carbonate (Os-Kyler 500mg -) 500 mg PO DAILY [facility] Last Admin: 06/07/19 10:30 Dose: 500 mg Folic Acid (Folic Acid -) 1 mg PO DAILY [facility] Last Admin: 06/07/19 10:30 Dose: 1 mg Furosemide (Lasix -) 40 mg PO DAILY [facility] Last Admin: 06/07/19 12:44 Dose: 40 mg Insulin Aspart (Novolog Vial Sliding Scale -) [facility]; Protocol Last Admin: 06/07/19 12:32 Dose: Not Given Insulin Detemir (Levemir Vial) 15 units SQ DAILY@0700 [facility] Last Admin: 06/07/19 08:33 Dose: 15 units Methadone HCl 30 mg/ Methadone (HCl 5 mg) 35 mg PO DAILY@0600 [facility] Last Admin: 06/07/19 06:11 Dose: 35 mg Methylnaltrexone [place] (Relistor -) 12 mg SQ DAILY [facility] Last Admin: 06/07/19 10:30 Dose: Not Given Metoprolol Tartrate (Lopressor -) 50 mg PO BID [facility] Last Admin: 06/07/19 10:30 Dose: 50 mg Nystatin (Nystatin Oral Suspension -) 500,000 units PO Q6HPO [facility] Last Admin: 06/07/19 12:44 Dose: 500,000 units Polyethylene Glycol (Miralax (For Daily Use) -) 17 gm PO BID [facility] Last Admin: 06/07/19 10:30 Dose: Not Given Prochlorperazine Maleate (Compazine -) 10 mg PO Q8H PRN PRN Reason: NAUSEA/VOMITTING Sertraline HCl (Zoloft -) 50 mg PO DAILY [facility] Last Admin: 06/07/19 10:30 Dose: 50 mg Tamsulosin HCl (Flomax -) 0.8 mg PO DAILY@0830 [facility] Last Admin: 06/07/19 08:35 Dose: 0.8 mg Tiotropium [place] (Spiriva Respimat) 2 puff IH DAILY [facility] Last Admin: 06/07/19 10:31 Dose: 2 puff Valacyclovir HCl (Valtrex -) 500 mg PO DAILY [facility] Last Admin: 06/07/19 10:30 Dose: 500 mg - Objective Vital Signs: Vital Signs Temperature 97.6 F 06/07/19 10:00 Pulse Rate 62 06/07/19 10:00 Respiratory Rate 18 06/07/19 10:00 Blood Pressure 133/66 06/07/19 10:00 O2 Sat by Pulse Oximetry (%) 93 L 06/06/19 21:00 Constitutional: Yes: Calm Eyes: Yes: Conjunctiva Clear HENT: Yes: Atraumatic Neck: Yes: Supple Cardiovascular: Yes: S1, S2 Respiratory: Yes: CTA Bilaterally, On Nasal O2 Gastrointestinal: Yes: Soft Genitourinary: Yes: WNL Musculoskeletal: Yes: WNL Edema: No Integumentary: Yes: WNL Neurological: Yes: Oriented Psychiatric: Yes: Oriented Labs: CBC, BMP 06/07/19 12:28 Problem List - Problems (1) DARIO (acute kidney injury) Code(s): N17.9 - ACUTE KIDNEY FAILURE, UNSPECIFIED Assessment/Plan Current Medications Generic Name Dose Route Start Last Admin Trade Name Freq PRN Reason Stop Dose Admin Acetaminophen 650 mg 06/02/19 19:06 Tylenol - PO Q6H PRN PAIN LEVEL 1-5 Allopurinol 300 mg 06/03/19 10:00 06/07/19 10:30 Zyloprim - PO 300 mg DAILY [facility] Administration Amlodipine Besylate 2.5 mg 06/04/19 20:00 06/07/19 10:30 Norvasc - PO 2.5 mg DAILY [facility] Administration Aspirin 81 mg 06/03/19 10:00 06/07/19 10:30 Asa - PO 81 mg DAILY [facility] Administration Atorvastatin Calcium 80 mg 06/02/19 22:00 06/06/19 21:05 Lipitor - PO 80 mg HS [facility] Administration Buspirone HCl 15 mg 06/02/19 22:00 06/07/19 10:30 Buspar - PO 15 mg BID [facility] Administration Calcium Carbonate 500 mg 06/03/19 10:00 06/07/19 10:30 Os-Kyler 500mg - PO 500 mg DAILY [facility] Administration Folic Acid 1 mg 06/03/19 10:00 06/07/19 10:30 Folic Acid - PO 1 mg DAILY [facility] Administration Furosemide 40 mg 06/07/19 12:20 06/07/19 12:44 Lasix - PO 40 mg DAILY [facility] Administration Insulin Aspart 1 vial 06/02/19 22:00 06/07/19 12:32 Novolog Vial Sliding Scale - SQ Not Given ACHS [facility] Protocol Insulin Detemir 15 units 06/03/19 07:00 06/07/19 08:33 Levemir Vial SQ 15 units DAILY@0700 [facility] Administration Methadone HCl 30 mg/ Methadone 35 mg 06/06/19 06:00 06/07/19 06:11 HCl 5 mg PO 35 mg DAILY@0600 [facility] Administration Methylnaltrexone [place] 12 mg 06/03/19 10:00 06/07/19 10:30 Relistor - SQ Not Given DAILY [facility] Metoprolol Tartrate 50 mg 06/02/19 22:00 06/07/19 10:30 Lopressor - PO 50 mg BID [facility] Administration Nystatin 500,000 units 06/05/19 12:00 06/07/19 12:44 Nystatin Oral Suspension - PO 500,000 units Q6HPO [facility] Administration Polyethylene Glycol 17 gm 06/06/19 16:15 06/07/19 10:30 Miralax (For Daily Use) - PO Not Given BID [facility] Prochlorperazine Maleate 10 mg 06/02/19 19:06 Compazine - PO Q8H PRN NAUSEA/VOMITTING Sertraline HCl 50 mg 06/03/19 10:00 06/07/19 10:30 Zoloft - PO 50 mg DAILY [facility] Administration Tamsulosin HCl 0.8 mg 06/03/19 08:30 06/07/19 08:35 Flomax - PO 0.8 mg DAILY@0830 [facility] Administration Tiotropium [place] 2 puff 06/03/19 10:00 06/07/19 10:31 Spiriva Respimat IH 2 puff DAILY [facility] Administration Valacyclovir HCl 500 mg 06/03/19 10:00 06/07/19 10:30 Valtrex - PO 500 mg DAILY [facility] Administration Impression 1. multiple myeloma 2. CKD 3. hep C 4. htn 5. DM 6. 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 proteinuria 9. anemia 10. DARIO Plan - check bmp - can d/c fluids - can restart lasix at lower dose and monitor volume status - will need outpt follow up
[2019-06-07 13:34] LABS: ALBUMIN 2.6 g/dl (3.4-5.0); BILIRUBIN,TOTAL 0.2 mg/dL (0.2-1); BLOOD UREA NITROGEN 26.6 mg/dL (7-18); CREATININE 1.9 mg/dL (0.55-1.3); POTASSIUM 4.4 mmol/L (3.5-5.1); TOT PROT 6.6 g/dl (6.4-8.2)
[2019-06-07 13:58] LABS: ANISOCYTOSIS 0; MACROCYTOSIS 0; PLATELET ESTIMATE NORMAL
[2019-06-07] MEDS: traMADol HCL 50 MG TABLET PO PRN (18:27)
--- NOTE | 2019-06-07 21:19 | PN ---
Progress Note (short form) - Note Progress Note: Feels well AFVSS Cor: RSR, No murmurs, No gallops Lungs: Clear to P&A Abd: Soft, Normal bowel sounds, No organomegaly Ext:No significant edema Skin: No rashes, Integument intact Labs/Meds reviewed A?P 63 y/o patient with myeloma, COPD, DM, HTN< CKD, admitted with worsening renal fxn diuretci decreased renal fxn improved myelosuppression from revlimid which is improving to add daratumumab as outpatient
[2019-06-07] MEDS: ATORVASTATIN CA 80 MG TABLET (FP) PO SCH (21:45)
[2019-06-08] MEDS: NYSTATIN 500,000 UNITS/5 ML SUSPENSION PO SCH ×5 (00:30→23:15)
[2019-06-08] MEDS ORDERED: METHADONE HCL 5 MG TABLET ONE (04:57)
[2019-06-08] MEDS ORDERED: METHADONE HCL 10 MG TABLET ONE (04:57)
[2019-06-08] MEDS: METHADONE 30 MG, METHADONE 5 MG PO SCH (05:35)
[2019-06-08] MEDS: INSULIN SLIDING SCALE (NOVOLOG) 1 VIAL SQ SCH ×4 (06:17→22:09)
[2019-06-08] MEDS: INSULIN (LEVEMIR) 100 UNITS/ML UNITS SQ SCH (06:18)
[2019-06-08] MEDS: TAMSULOSIN HCL 0.4 MG CAP PO SCH (07:55)
[2019-06-08 08:19] LABS: ALBUMIN 2.4 g/dl (3.4-5.0); BILIRUBIN,TOTAL 0.2 mg/dL (0.2-1); BLOOD UREA NITROGEN 32.4 mg/dL (7-18); CALCIUM 7.8 mg/dL (8.5-10.1); POTASSIUM 4.3 mmol/L (3.5-5.1); TOT PROT 5.8 g/dl (6.4-8.2)
[2019-06-08 08:23] LABS: BASO % 0.7 % (0-2.0); EOS % 1.5 % (0-4.5); HEMATOCRIT 27.3 % (35.4-49); HEMOGLOBIN 9.1 GM/dL (11.7-16.9); LYMPH % 28.5 % (8-40); MCH 27.8 pg (25.7-33.7); MCHC 33.4 g/dl (32.0-35.9); MEAN CELL VOLUME 83.4 fl (80-96); MEAN PLT VOLUME 8.2 fl (7.5-11.1); MONO % 15.1 % (3.8-10.2); NEUT % 54.2 % (42.8-82.8); PLATELET COUNT 184 K/MM3 (134-434); RBC 3.28 M/mm3 (4.00-5.60); RDW 14.4 % (11.9-15.9); WHITE BLOOD COUNT 5.1 K/mm3 (4.0-10.0)
[2019-06-08] MEDS: ALLOPURINOL 300 MG TABLET (FP) PO SCH (09:36)
[2019-06-08] MEDS: busPIRone HCL 5 MG TABLET PO SCH ×2 (09:37→22:02)
[2019-06-08] MEDS: ASPIRIN 81 MG CHEWABLE TABLETS PO SCH (09:37)
[2019-06-08] MEDS: SERTRALINE HCL 50 MG TABLET (FP) PO SCH (09:37)
[2019-06-08] MEDS: valACYclovir HCL 500 MG TABLET (FP) PO SCH (09:37)
[2019-06-08] MEDS: CALCIUM (OYSTER SHELL) 500 MG TABLET (FP) PO SCH (09:37)
[2019-06-08] MEDS: FUROSEMIDE 40 MG TABLET (FP) PO SCH (09:37)
[2019-06-08] MEDS: Methylnaltrexone Bromide 12 MG/0.6 ML KIT SQ SCH (09:37)
[2019-06-08] MEDS: POLYETHYLENE GLYCOL 3350 119 GM BTL PO SCH ×2 (09:37→22:03)
[2019-06-08] MEDS: TIOTROPIUM BROMIDE 2.5 MCG (SPIRIVA) RESPIMAT INHALER IH SCH (09:37)
[2019-06-08] MEDS: METOPROLOL TARTRATE 50 MG TABLET (FP) PO SCH ×2 (09:37→22:03)
[2019-06-08] MEDS: FOLIC ACID 1 MG TABLET (FP) PO SCH (09:37)
[2019-06-08] MEDS: amLODIPine BESYLATE 2.5 MG TABLET (FP) PO SCH (09:37)
[2019-06-08] MEDS ORDERED: FUROSEMIDE 40 MG TABLET (FP) PO SCH (10:00)
[2019-06-08] MEDS: traMADol HCL 50 MG TABLET PO PRN ×2 (11:18→22:05)
[2019-06-08 12:27] LABS: ANISOCYTOSIS 1+; MACROCYTOSIS 0; OVALOCYTE 1+; PLATELET ESTIMATE NORMAL
--- NOTE | 2019-06-08 16:50 | PN ---
Progress Note, Physician History of Present Illness: Pt seen and examined at bedside. He is awake and alert. He feels that his breathing is improved today. - Current Medication List Current Medications: Active Medications Acetaminophen (Tylenol -) 650 mg PO Q6H PRN PRN Reason: PAIN LEVEL 1-5 Allopurinol (Zyloprim -) 300 mg PO DAILY [facility] Last Admin: 06/08/19 09:36 Dose: 300 mg Amlodipine Besylate (Norvasc -) 2.5 mg PO DAILY [facility] Last Admin: 06/08/19 09:37 Dose: 2.5 mg Aspirin (Asa -) 81 mg PO DAILY [facility] Last Admin: 06/08/19 09:37 Dose: 81 mg Atorvastatin Calcium (Lipitor -) 80 mg PO HS [facility] Last Admin: 06/07/19 21:45 Dose: 80 mg Buspirone HCl (Buspar -) 15 mg PO BID [facility] Last Admin: 06/08/19 09:37 Dose: 15 mg Calcium Carbonate (Os-Kyler 500mg -) 500 mg PO DAILY [facility] Last Admin: 06/08/19 09:37 Dose: 500 mg Folic Acid (Folic Acid -) 1 mg PO DAILY [facility] Last Admin: 06/08/19 09:37 Dose: 1 mg Furosemide (Lasix -) 40 mg PO DAILY [facility] Last Admin: 06/08/19 09:37 Dose: 40 mg Insulin Aspart (Novolog Vial Sliding Scale -) [address] [facility]; Protocol Last Admin: 06/08/19 16:27 Dose: Not Given Insulin Detemir (Levemir Vial) 15 units SQ DAILY@0700 [facility] Last Admin: 06/08/19 06:18 Dose: 15 units Methadone HCl 30 mg/ Methadone (HCl 5 mg) 35 mg PO DAILY@0600 [facility] Last Admin: 06/08/19 05:35 Dose: 35 mg Methylnaltrexone [place] (Relistor -) 12 mg SQ DAILY [facility] Last Admin: 06/08/19 09:37 Dose: Not Given Metoprolol Tartrate (Lopressor -) 50 mg PO BID [facility] Last Admin: 06/08/19 09:37 Dose: 50 mg Nystatin (Nystatin Oral Suspension -) 500,000 units PO Q6HPO [facility] Last Admin: 06/08/19 11:14 Dose: 500,000 units Polyethylene Glycol (Miralax (For Daily Use) -) 17 gm PO BID [facility] Last Admin: 06/08/19 09:37 Dose: 17 grams Prochlorperazine Maleate (Compazine -) 10 mg PO Q8H PRN PRN Reason: NAUSEA/VOMITTING Sertraline HCl (Zoloft -) 50 mg PO DAILY [facility] Last Admin: 06/08/19 09:37 Dose: 50 mg Tamsulosin HCl (Flomax -) 0.8 mg PO DAILY@0830 [facility] Last Admin: 06/08/19 07:55 Dose: 0.8 mg Tiotropium [place] (Spiriva Respimat) 2 puff IH DAILY [facility] Last Admin: 06/08/19 09:37 Dose: 2 puff Tramadol HCl (Ultram -) 50 mg PO Q6H PRN PRN Reason: PAIN SCALE 6-10 Last Admin: 06/08/19 11:18 Dose: 50 mg Valacyclovir HCl (Valtrex -) 500 mg PO DAILY [facility] Last Admin: 06/08/19 09:37 Dose: 500 mg - Objective Vital Signs: Vital Signs Temperature 98.1 F 06/08/19 15:52 Pulse Rate 57 L 06/08/19 15:52 Respiratory Rate 20 06/08/19 15:52 Blood Pressure 136/58 L 06/08/19 15:52 O2 Sat by Pulse Oximetry (%) 96 06/08/19 10:25 Constitutional: Yes: Calm Eyes: Yes: Conjunctiva Clear HENT: Yes: Atraumatic Neck: Yes: Supple Cardiovascular: Yes: S1, S2 Respiratory: Yes: On Nasal O2 Gastrointestinal: Yes: Soft Genitourinary: Yes: WNL Edema: Yes Edema: LLE: Trace, RLE: Trace Integumentary: Yes: WNL, Venous Stasis Changes Neurological: Yes: Oriented Psychiatric: Yes: Oriented Labs: CBC, BMP 06/08/19 06:15 06/08/19 06:15 Problem List - Problems (1) DARIO (acute kidney injury) Code(s): N17.9 - ACUTE KIDNEY FAILURE, UNSPECIFIED Assessment/Plan Current Medications Generic Name Dose Route Start Last Admin Trade Name Freq PRN Reason Stop Dose Admin Acetaminophen 650 mg 06/02/19 19:06 Tylenol - PO Q6H PRN PAIN LEVEL 1-5 Allopurinol 300 mg 06/03/19 10:00 06/08/19 09:36 Zyloprim - PO 300 mg DAILY [facility] Administration Amlodipine Besylate 2.5 mg 06/04/19 20:00 06/08/19 09:37 Norvasc - PO 2.5 mg DAILY [facility] Administration Aspirin 81 mg 06/03/19 10:00 06/08/19 09:37 Asa - PO 81 mg DAILY [facility] Administration Atorvastatin Calcium 80 mg 06/02/19 22:00 06/07/19 21:45 Lipitor - PO 80 mg HS [facility] Administration Buspirone HCl 15 mg 06/02/19 22:00 06/08/19 09:37 Buspar - PO 15 mg BID [facility] Administration Calcium Carbonate 500 mg 06/03/19 10:00 06/08/19 09:37 Os-Kyler 500mg - PO 500 mg DAILY [facility] Administration Folic Acid 1 mg 06/03/19 10:00 06/08/19 09:37 Folic Acid - PO 1 mg DAILY [facility] Administration Furosemide 40 mg 06/07/19 12:20 06/08/19 09:37 Lasix - PO 40 mg DAILY [facility] Administration Insulin Aspart 1 vial 06/02/19 22:00 06/08/19 16:27 Novolog Vial Sliding Scale - SQ Not Given [facility] Protocol Insulin Detemir 15 units 06/03/19 07:00 06/08/19 06:18 Levemir Vial SQ 15 units DAILY@0700 [facility] Administration Methadone HCl 30 mg/ Methadone 35 mg 06/06/19 06:00 06/08/19 05:35 HCl 5 mg PO 35 mg DAILY@0600 [facility] Administration Methylnaltrexone [place] 12 mg 06/03/19 10:00 06/08/19 09:37 Relistor - SQ Not Given DAILY [facility] Metoprolol Tartrate 50 mg 06/02/19 22:00 06/08/19 09:37 Lopressor - PO 50 mg BID [facility] Administration Nystatin 500,000 units 06/05/19 12:00 06/08/19 11:14 Nystatin Oral Suspension - PO 500,000 units Q6HPO [facility] Administration Polyethylene Glycol 17 gm 06/06/19 16:15 06/08/19 09:37 Miralax (For Daily Use) - PO 17 grams BID [facility] Administration Prochlorperazine Maleate 10 mg 06/02/19 19:06 Compazine - PO Q8H PRN NAUSEA/VOMITTING Sertraline HCl 50 mg 06/03/19 10:00 06/08/19 09:37 Zoloft - PO 50 mg DAILY [facility] Administration Tamsulosin HCl 0.8 mg 06/03/19 08:30 06/08/19 07:55 Flomax - PO 0.8 mg DAILY@0830 [facility] Administration Tiotropium [place] 2 puff 06/03/19 10:00 06/08/19 09:37 Spiriva Respimat IH 2 puff DAILY [facility] Administration Tramadol HCl 50 mg 06/07/19 18:20 06/08/19 11:18 Ultram - PO 50 mg Q6H PRN Administration PAIN SCALE 6-10 Valacyclovir HCl 500 mg 06/03/19 10:00 06/08/19 09:37 Valtrex - PO 500 mg DAILY [facility] Administration Impression 1. multiple myeloma 2. CKD 3. hep C 4. htn 5. DM 6. 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 proteinuria 9. anemia 10. DARIO Plan - fluids stopped - cont lasix at daily dosing - if he starts to develop overload, then increase lasix to bid - will need outpt follow up
[2019-06-08] MEDS: ATORVASTATIN CA 80 MG TABLET (FP) PO SCH (22:03)
--- NOTE | 2019-06-08 23:18 | PN ---
Progress Note (short form) - Note Progress Note: Feels well Last Vital Signs Temp Pulse Resp BP Pulse Ox 97.8 F 72 18 137/67 95 06/08/19 20:00 06/08/19 20:00 06/08/19 20:00 06/08/19 20:00 06/08/19 21:00 Cor: RSR, No murmurs, No gallops Lungs: Clear to P&A Abd: Soft, Normal bowel sounds, No organomegaly Ext:No significant edema Skin: No rashes, Integument intact Abnormal Lab Results 06/08/19 06/08/19 06:15 06:15 RBC 3.28 L Hgb 9.1 L Hct 27.3 L Monocytes % 15.1 H Monocytes % (Manual) 18 H Chloride 108 H BUN 32.4 H Creatinine 2.0 H Random Glucose 129 H Calcium 7.8 L AST 80 H ALT 125 H Alkaline Phosphatase 118 H Total Protein 5.8 L Albumin 2.4 L Active Medications Generic Name Dose Route Start Last Admin Trade Name Freq PRN Reason Stop Dose Admin Acetaminophen 650 mg 06/02/19 19:06 Tylenol - PO Q6H PRN PAIN LEVEL 1-5 Allopurinol 300 mg 06/03/19 10:00 06/08/19 09:36 Zyloprim - PO 300 mg DAILY YAKOV Administration Amlodipine Besylate 2.5 mg 06/04/19 20:00 06/08/19 09:37 Norvasc - PO 2.5 mg DAILY YAKOV Administration Aspirin 81 mg 06/03/19 10:00 06/08/19 09:37 Asa - PO 81 mg DAILY YAKOV Administration Atorvastatin Calcium 80 mg 06/02/19 22:00 06/08/19 22:03 Lipitor - PO 80 mg HS YAKOV Administration Buspirone HCl 15 mg 06/02/19 22:00 06/08/19 22:02 Buspar - PO 15 mg BID YAKOV Administration Calcium Carbonate 500 mg 06/03/19 10:00 06/08/19 09:37 Os-Kyler 500mg - PO 500 mg DAILY YAKOV Administration Folic Acid 1 mg 06/03/19 10:00 06/08/19 09:37 Folic Acid - PO 1 mg DAILY YAKOV Administration Furosemide 40 mg 06/07/19 12:20 06/08/19 09:37 Lasix - PO 40 mg DAILY YAKOV Administration Insulin Aspart 1 vial 06/02/19 22:00 06/08/19 22:09 Novolog Vial Sliding Scale - SQ Not Given ACHS [facility] Protocol Insulin Detemir 15 units 06/03/19 07:00 06/08/19 06:18 Levemir Vial SQ 15 units DAILY@0700 YAKOV Administration Methadone HCl 30 mg/ Methadone 35 mg 06/06/19 06:00 06/08/19 05:35 HCl 5 mg PO 35 mg DAILY@0600 YAKOV Administration Methylnaltrexone [place] 12 mg 06/03/19 10:00 06/08/19 09:37 Relistor - SQ Not Given DAILY YAKOV Metoprolol Tartrate 50 mg 06/02/19 22:00 06/08/19 22:03 Lopressor - PO 50 mg BID YAKOV Administration Nystatin 500,000 units 06/05/19 12:00 06/08/19 23:15 Nystatin Oral Suspension - PO 500,000 units Q6HPO YAKOV Administration Polyethylene Glycol 17 gm 06/06/19 16:15 06/08/19 22:03 Miralax (For Daily Use) - PO 17 grams BID YAKOV Administration Prochlorperazine Maleate 10 mg 06/02/19 19:06 Compazine - PO Q8H PRN NAUSEA/VOMITTING Sertraline HCl 50 mg 06/03/19 10:00 06/08/19 09:37 Zoloft - PO 50 mg DAILY YAKOV Administration Tamsulosin HCl 0.8 mg 06/03/19 08:30 06/08/19 07:55 Flomax - PO 0.8 mg DAILY@0830 YAKOV Administration Tiotropium [place] 2 puff 06/03/19 10:00 06/08/19 09:37 Spiriva Respimat IH 2 puff DAILY YAKOV Administration Tramadol HCl 50 mg 06/07/19 18:20 06/08/19 22:05 Ultram - PO 50 mg Q6H PRN Administration PAIN SCALE 6-10 Valacyclovir HCl 500 mg 06/03/19 10:00 06/08/19 09:37 Valtrex - PO 500 mg DAILY YAKOV Administration A?P 63 y/o patient with myeloma, COPD, DM, HTN< CKD, admitted with worsening renal fxn diuretci decreased renal fxn improved myeelosuppression from revliid improved d/c planning tomorrow
[2019-06-09] MEDS ORDERED: METHADONE HCL 5 MG TABLET ONE (04:51)
[2019-06-09] MEDS ORDERED: METHADONE HCL 10 MG TABLET ONE (04:51)
[2019-06-09] MEDS: NYSTATIN 500,000 UNITS/5 ML SUSPENSION PO SCH ×3 (05:40→17:00)
[2019-06-09] MEDS: METHADONE 30 MG, METHADONE 5 MG PO SCH (05:41)
[2019-06-09] MEDS: INSULIN (LEVEMIR) 100 UNITS/ML UNITS SQ SCH (06:04)
[2019-06-09] MEDS: INSULIN SLIDING SCALE (NOVOLOG) 1 VIAL SQ SCH ×4 (06:05→21:41)
[2019-06-09] MEDS: TAMSULOSIN HCL 0.4 MG CAP PO SCH (07:49)
[2019-06-09] MEDS: POLYETHYLENE GLYCOL 3350 119 GM BTL PO SCH ×2 (09:29→21:45)
[2019-06-09] MEDS: FOLIC ACID 1 MG TABLET (FP) PO SCH (09:29)
[2019-06-09] MEDS: FUROSEMIDE 40 MG TABLET (FP) PO SCH (09:29)
[2019-06-09] MEDS: amLODIPine BESYLATE 2.5 MG TABLET (FP) PO SCH (09:29)
[2019-06-09] MEDS: valACYclovir HCL 500 MG TABLET (FP) PO SCH (09:29)
[2019-06-09] MEDS: SERTRALINE HCL 50 MG TABLET (FP) PO SCH (09:29)
[2019-06-09] MEDS: TIOTROPIUM BROMIDE 2.5 MCG (SPIRIVA) RESPIMAT INHALER IH SCH (09:30)
[2019-06-09] MEDS: Methylnaltrexone Bromide 12 MG/0.6 ML KIT SQ SCH (09:30)
[2019-06-09] MEDS: ASPIRIN 81 MG CHEWABLE TABLETS PO SCH (09:30)
[2019-06-09] MEDS: METOPROLOL TARTRATE 50 MG TABLET (FP) PO SCH ×2 (09:30→21:41)
[2019-06-09] MEDS: ALLOPURINOL 300 MG TABLET (FP) PO SCH (09:30)
[2019-06-09] MEDS: CALCIUM (OYSTER SHELL) 500 MG TABLET (FP) PO SCH (09:30)
[2019-06-09] MEDS: busPIRone HCL 5 MG TABLET PO SCH ×2 (09:31→21:41)
--- NOTE | 2019-06-09 15:23 | PN ---
Progress Note, Physician History of Present Illness: Pt seen and examined at bedside. He is awake and alert. He denies shortness of breath. He is unable to go home until Wednesday as there is noone at home. - Current Medication List Current Medications: Active Medications Acetaminophen (Tylenol -) 650 mg PO Q6H PRN PRN Reason: PAIN LEVEL 1-5 Allopurinol (Zyloprim -) 300 mg PO DAILY [facility] Last Admin: 06/09/19 09:30 Dose: 300 mg Amlodipine Besylate (Norvasc -) 2.5 mg PO DAILY [facility] Last Admin: 06/09/19 09:29 Dose: 2.5 mg Aspirin (Asa -) 81 mg PO DAILY [facility] Last Admin: 06/09/19 09:30 Dose: 81 mg Atorvastatin Calcium (Lipitor -) 80 mg PO HS [facility] Last Admin: 06/08/19 22:03 Dose: 80 mg Buspirone HCl (Buspar -) 15 mg PO BID [facility] Last Admin: 06/09/19 09:31 Dose: 15 mg Calcium Carbonate (Os-Kyler 500mg -) 500 mg PO DAILY [facility] Last Admin: 06/09/19 09:30 Dose: 500 mg Folic Acid (Folic Acid -) 1 mg PO DAILY [facility] Last Admin: 06/09/19 09:29 Dose: 1 mg Furosemide (Lasix -) 40 mg PO DAILY [facility] Last Admin: 06/09/19 09:29 Dose: 40 mg Insulin Aspart (Novolog Vial Sliding Scale -) 1 vial SQ [facility]; Protocol Last Admin: 06/09/19 11:17 Dose: Not Given Insulin Detemir (Levemir Vial) 15 units SQ DAILY@0700 [facility] Last Admin: 06/09/19 06:04 Dose: 15 units Methadone HCl 30 mg/ Methadone (HCl 5 mg) 35 mg PO DAILY@0600 [facility] Last Admin: 06/09/19 05:41 Dose: 35 mg Methylnaltrexone [place] (Relistor -) 12 mg SQ DAILY [facility] Last Admin: 06/09/19 09:30 Dose: Not Given Metoprolol Tartrate (Lopressor -) 50 mg PO BID [facility] Last Admin: 06/09/19 09:30 Dose: 50 mg Nystatin (Nystatin Oral Suspension -) 500,000 units PO Q6HPO [facility] Last Admin: 06/09/19 11:17 Dose: 500,000 units Polyethylene Glycol (Miralax (For Daily Use) -) 17 gm PO BID [facility] Last Admin: 06/09/19 09:29 Dose: 17 grams Prochlorperazine Maleate (Compazine -) 10 mg PO Q8H PRN PRN Reason: NAUSEA/VOMITTING Sertraline HCl (Zoloft -) 50 mg PO DAILY [facility] Last Admin: 06/09/19 09:29 Dose: 50 mg Tamsulosin HCl (Flomax -) 0.8 mg PO DAILY@0830 [facility] Last Admin: 06/09/19 07:49 Dose: 0.8 mg Tiotropium [place] (Spiriva Respimat) 2 puff IH DAILY [facility] Last Admin: 06/09/19 09:30 Dose: 2 puff Tramadol HCl (Ultram -) 50 mg PO Q6H PRN PRN Reason: PAIN SCALE 6-10 Last Admin: 06/08/19 22:05 Dose: 50 mg Valacyclovir HCl (Valtrex -) 500 mg PO DAILY [facility] Last Admin: 06/09/19 09:29 Dose: 500 mg - Objective Vital Signs: Vital Signs Temperature 98.0 F 06/09/19 15:04 Pulse Rate 59 L 06/09/19 15:04 Respiratory Rate 20 06/09/19 15:04 Blood Pressure 111/58 L 06/09/19 15:04 O2 Sat by Pulse Oximetry (%) 94 L 06/09/19 09:00 Constitutional: Yes: Calm Eyes: Yes: Conjunctiva Clear HENT: Yes: Atraumatic Neck: Yes: Supple Cardiovascular: Yes: S1, S2 Respiratory: Yes: On Nasal O2 Gastrointestinal: Yes: Soft Genitourinary: Yes: WNL Musculoskeletal: Yes: WNL Edema: No Neurological: Yes: Oriented Psychiatric: Yes: Oriented Labs: CBC, BMP 06/08/19 06:15 06/08/19 06:15 Problem List - Problems (1) DARIO (acute kidney injury) Code(s): N17.9 - ACUTE KIDNEY FAILURE, UNSPECIFIED Assessment/Plan Current Medications Generic Name Dose Route Start Last Admin Trade Name Freq PRN Reason Stop Dose Admin Acetaminophen 650 mg 06/02/19 19:06 Tylenol - PO Q6H PRN PAIN LEVEL 1-5 Allopurinol 300 mg 06/03/19 10:00 06/09/19 09:30 Zyloprim - PO 300 mg DAILY YAKOV Administration Amlodipine Besylate 2.5 mg 06/04/19 20:00 06/09/19 09:29 Norvasc - PO 2.5 mg DAILY YAKOV Administration Aspirin 81 mg 06/03/19 10:00 06/09/19 09:30 Asa - PO 81 mg DAILY YAKOV Administration Atorvastatin Calcium 80 mg 06/02/19 22:00 06/08/19 22:03 Lipitor - PO 80 mg HS YAKOV Administration Buspirone HCl 15 mg 06/02/19 22:00 06/09/19 09:31 Buspar - PO 15 mg BID YAKOV Administration Calcium Carbonate 500 mg 06/03/19 10:00 06/09/19 09:30 Os-Kyler 500mg - PO 500 mg DAILY [facility] Administration Folic Acid 1 mg 06/03/19 10:00 06/09/19 09:29 Folic Acid - PO 1 mg DAILY YAKOV Administration Furosemide 40 mg 06/07/19 12:20 06/09/19 09:29 Lasix - PO 40 mg DAILY [facility] Administration Insulin Aspart 1 vial 06/02/19 22:00 06/09/19 11:17 Novolog Vial Sliding Scale - SQ Not Given [facility] Protocol Insulin Detemir 15 units 06/03/19 07:00 06/09/19 06:04 Levemir Vial SQ 15 units DAILY@0700 [facility] Administration Methadone HCl 30 mg/ Methadone 35 mg 06/06/19 06:00 06/09/19 05:41 HCl 5 mg PO 35 mg DAILY@0600 [facility] Administration Methylnaltrexone [place] 12 mg 06/03/19 10:00 06/09/19 09:30 Relistor - SQ Not Given DAILY [facility] Metoprolol Tartrate 50 mg 06/02/19 22:00 06/09/19 09:30 Lopressor - PO 50 mg BID [facility] Administration Nystatin 500,000 units 06/05/19 12:00 06/09/19 11:17 Nystatin Oral Suspension - PO 500,000 units Q6HPO [facility] Administration Polyethylene Glycol 17 gm 06/06/19 16:15 06/09/19 09:29 Miralax (For Daily Use) - PO 17 grams BID [facility] Administration Prochlorperazine Maleate 10 mg 06/02/19 19:06 Compazine - PO Q8H PRN NAUSEA/VOMITTING Sertraline HCl 50 mg 06/03/19 10:00 06/09/19 09:29 Zoloft - PO 50 mg DAILY YAKOV Administration Tamsulosin HCl 0.8 mg 06/03/19 08:30 06/09/19 07:49 Flomax - PO 0.8 mg DAILY@0830 YAKOV Administration Tiotropium [place] 2 puff 06/03/19 10:00 06/09/19 09:30 Spiriva Respimat IH 2 puff DAILY YAKOV Administration Tramadol HCl 50 mg 06/07/19 18:20 06/08/19 22:05 Ultram - PO 50 mg Q6H PRN Administration PAIN SCALE 6-10 Valacyclovir HCl 500 mg 06/03/19 10:00 06/09/19 09:29 Valtrex - PO 500 mg DAILY YAKOV Administration Impression 1. multiple myeloma 2. CKD 3. hep C 4. htn 5. DM 6. 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 proteinuria 9. anemia 10. DARIO Plan - cont lasix - volume status is stable - monitor volume status - will need outpt follow up in office - will follow PRN
--- NOTE | 2019-06-09 19:03 | PN ---
Progress Note (short form) - Note Progress Note: c/o constipation Last Vital Signs Temp Pulse Resp BP Pulse Ox 98.4 F 62 20 122/62 92 L 06/09/19 17:29 06/09/19 17:29 06/09/19 17:29 06/09/19 17:29 06/09/19 15:59 Cor: RSR, No murmurs, No gallops Lungs: Clear to P&A Abd: Soft, Normal bowel sounds, No organomegaly Ext:No significant edema Skin: No rashes, Integument intact Active Medications Generic Name Dose Route Start Last Admin Trade Name Freq PRN Reason Stop Dose Admin Acetaminophen 650 mg 06/02/19 19:06 Tylenol - PO Q6H PRN PAIN LEVEL 1-5 Allopurinol 300 mg 06/03/19 10:00 06/09/19 09:30 Zyloprim - PO 300 mg DAILY YAKOV Administration Amlodipine Besylate 2.5 mg 06/04/19 20:00 06/09/19 09:29 Norvasc - PO 2.5 mg DAILY YAKOV Administration Aspirin 81 mg 06/03/19 10:00 06/09/19 09:30 Asa - PO 81 mg DAILY YAKOV Administration Atorvastatin Calcium 80 mg 06/02/19 22:00 06/08/19 22:03 Lipitor - PO 80 mg HS [facility] Administration Buspirone HCl 15 mg 06/02/19 22:00 06/09/19 09:31 Buspar - PO 15 mg BID YAKOV Administration Calcium Carbonate 500 mg 06/03/19 10:00 06/09/19 09:30 Os-Kyler 500mg - PO 500 mg DAILY YAKOV Administration Folic Acid 1 mg 06/03/19 10:00 06/09/19 09:29 Folic Acid - PO 1 mg DAILY YAKOV Administration Furosemide 40 mg 06/07/19 12:20 06/09/19 09:29 Lasix - PO 40 mg DAILY YAKOV Administration Insulin Aspart 1 vial 06/02/19 22:00 06/09/19 16:31 Novolog Vial Sliding Scale - SQ Not Given [facility] Protocol Insulin Detemir 15 units 06/03/19 07:00 06/09/19 06:04 Levemir Vial SQ 15 units DAILY@0700 YAKOV Administration Methadone HCl 30 mg/ Methadone 35 mg 06/06/19 06:00 06/09/19 05:41 HCl 5 mg PO 35 mg DAILY@0600 YAKOV Administration Methylnaltrexone [place] 12 mg 06/03/19 10:00 06/09/19 09:30 Relistor - SQ Not Given DAILY [facility] Metoprolol Tartrate 50 mg 06/02/19 22:00 06/09/19 09:30 Lopressor - PO 50 mg BID YAKOV Administration Nystatin 500,000 units 06/05/19 12:00 06/09/19 17:00 Nystatin Oral Suspension - PO 500,000 units Q6HPO YAKOV Administration Polyethylene Glycol 17 gm 06/06/19 16:15 06/09/19 09:29 Miralax (For Daily Use) - PO 17 grams BID YAKOV Administration Prochlorperazine Maleate 10 mg 06/02/19 19:06 Compazine - PO Q8H PRN NAUSEA/VOMITTING Sertraline HCl 50 mg 06/03/19 10:00 06/09/19 09:29 Zoloft - PO 50 mg DAILY YAKOV Administration Tamsulosin HCl 0.8 mg 06/03/19 08:30 06/09/19 07:49 Flomax - PO 0.8 mg DAILY@0830 YAKOV Administration Tiotropium [place] 2 puff 06/03/19 10:00 06/09/19 09:30 Spiriva Respimat IH 2 puff DAILY YAKOV Administration Tramadol HCl 50 mg 06/07/19 18:20 06/08/19 22:05 Ultram - PO 50 mg Q6H PRN Administration PAIN SCALE 6-10 Valacyclovir HCl 500 mg 06/03/19 10:00 06/09/19 09:29 Valtrex - PO 500 mg DAILY [facility] Administration A?P 63 y/o patient with myeloma, COPD, DM, HTN< CKD, admitted with worsening renal fxn diuretci decreased renal fxn improving myelosuppression from revlimid which is improving constipation --miralax/relistor
[2019-06-09] MEDS: traMADol HCL 50 MG TABLET PO PRN (21:42)
[2019-06-09] MEDS: ATORVASTATIN CA 80 MG TABLET (FP) PO SCH (21:42)
[2019-06-10] MEDS: NYSTATIN 500,000 UNITS/5 ML SUSPENSION PO SCH ×6 (00:15→17:50)
[2019-06-10] MEDS ORDERED: METHADONE HCL 10 MG TABLET ONE (06:42)
[2019-06-10] MEDS ORDERED: METHADONE HCL 5 MG TABLET ONE (06:42)
[2019-06-10] MEDS: INSULIN SLIDING SCALE (NOVOLOG) 1 VIAL SQ SCH ×4 (06:44→22:31)
[2019-06-10] MEDS: INSULIN (LEVEMIR) 100 UNITS/ML UNITS SQ SCH (06:44)
[2019-06-10] MEDS: METHADONE 30 MG, METHADONE 5 MG PO SCH (06:44)
[2019-06-10 07:20] LABS: BASO % 0.5 % (0-2.0); EOS % 0.9 % (0-4.5); HEMATOCRIT 29.4 % (35.4-49); HEMOGLOBIN 9.8 GM/dL (11.7-16.9); LYMPH % 28.2 % (8-40); MCH 27.9 pg (25.7-33.7); MCHC 33.4 g/dl (32.0-35.9); MEAN CELL VOLUME 83.4 fl (80-96); MONO % 12.8 % (3.8-10.2); NEUT % 57.6 % (42.8-82.8); PLATELET COUNT 255 K/MM3 (134-434); RBC 3.53 M/mm3 (4.00-5.60); RDW 14.8 % (11.9-15.9); WHITE BLOOD COUNT 5.3 K/mm3 (4.0-10.0)
[2019-06-10 07:59] LABS: ALBUMIN 2.7 g/dl (3.4-5.0); BILIRUBIN,TOTAL 0.2 mg/dL (0.2-1); CALCIUM 7.8 mg/dL (8.5-10.1); CREATININE 1.7 mg/dL (0.55-1.3); POTASSIUM 3.9 mmol/L (3.5-5.1); TOT PROT 6.4 g/dl (6.4-8.2)
[2019-06-10 10:22] LABS: ANISOCYTOSIS 0; MACROCYTOSIS 0; PLATELET ESTIMATE NORMAL
[2019-06-10] MEDS: CALCIUM (OYSTER SHELL) 500 MG TABLET (FP) PO SCH (10:40)
[2019-06-10] MEDS: TAMSULOSIN HCL 0.4 MG CAP PO SCH (10:40)
[2019-06-10] MEDS: METOPROLOL TARTRATE 50 MG TABLET (FP) PO SCH ×2 (10:40→22:31)
[2019-06-10] MEDS: valACYclovir HCL 500 MG TABLET (FP) PO SCH (10:40)
[2019-06-10] MEDS: SERTRALINE HCL 50 MG TABLET (FP) PO SCH (10:41)
[2019-06-10] MEDS: ALLOPURINOL 300 MG TABLET (FP) PO SCH (10:41)
[2019-06-10] MEDS: amLODIPine BESYLATE 2.5 MG TABLET (FP) PO SCH (10:41)
[2019-06-10] MEDS: TIOTROPIUM BROMIDE 2.5 MCG (SPIRIVA) RESPIMAT INHALER IH SCH (10:41)
[2019-06-10] MEDS: FUROSEMIDE 40 MG TABLET (FP) PO SCH (10:41)
[2019-06-10] MEDS: ASPIRIN 81 MG CHEWABLE TABLETS PO SCH (10:41)
[2019-06-10] MEDS: FOLIC ACID 1 MG TABLET (FP) PO SCH (10:42)
[2019-06-10] MEDS: busPIRone HCL 5 MG TABLET PO SCH ×2 (10:44→22:30)
[2019-06-10] MEDS: POLYETHYLENE GLYCOL 3350 119 GM BTL PO SCH ×2 (10:45→22:31)
[2019-06-10] MEDS: traMADol HCL 50 MG TABLET PO PRN (10:46)
[2019-06-10] MEDS ORDERED: PT OWN MED DRAWER 7, Y5N ONE (12:42)
[2019-06-10] MEDS: Methylnaltrexone Bromide 12 MG/0.6 ML KIT SQ SCH (12:45)
--- NOTE | 2019-06-10 22:29 | PN ---
Progress Note, Physician History of Present Illness: Feels well. Denies pain. Wants to go home - Current Medication List Current Medications: Active Medications Acetaminophen (Tylenol -) 650 mg PO Q6H PRN PRN Reason: PAIN LEVEL 1-5 Allopurinol (Zyloprim -) 300 mg PO DAILY [facility] Last Admin: 06/10/19 10:41 Dose: 300 mg Amlodipine Besylate (Norvasc -) 2.5 mg PO DAILY [facility] Last Admin: 06/10/19 10:41 Dose: 2.5 mg Aspirin (Asa -) 81 mg PO DAILY [facility] Last Admin: 06/10/19 10:41 Dose: 81 mg Atorvastatin Calcium (Lipitor -) 80 mg PO HS [facility] Last Admin: 06/09/19 21:42 Dose: 80 mg Buspirone HCl (Buspar -) 15 mg PO BID [facility] Last Admin: 06/10/19 10:44 Dose: 15 mg Calcium Carbonate (Os-Kyler 500mg -) 500 mg PO DAILY [facility] Last Admin: 06/10/19 10:40 Dose: 500 mg Folic Acid (Folic Acid -) 1 mg PO DAILY [facility] Last Admin: 06/10/19 10:42 Dose: 1 mg Furosemide (Lasix -) 40 mg PO DAILY [facility] Last Admin: 06/10/19 10:41 Dose: 40 mg Insulin Aspart (Novolog Vial Sliding Scale -) 1 vial SQ [facility]; Protocol Last Admin: 06/10/19 16:38 Dose: Not Given Insulin Detemir (Levemir Vial) 15 units SQ DAILY@0700 [facility] Last Admin: 06/10/19 06:44 Dose: 15 units Methadone HCl 30 mg/ Methadone (HCl 5 mg) 35 mg PO DAILY@0600 [facility] Last Admin: 06/10/19 06:44 Dose: 35 mg Methylnaltrexone [place] (Relistor -) 12 mg SQ DAILY [facility] Last Admin: 06/10/19 12:45 Dose: 12 mg Metoprolol Tartrate (Lopressor -) 50 mg PO BID [facility] Last Admin: 06/10/19 10:40 Dose: 50 mg Nystatin (Nystatin Oral Suspension -) 500,000 units PO Q6HPO [facility] Last Admin: 06/10/19 17:50 Dose: 500,000 units Polyethylene Glycol (Miralax (For Daily Use) -) 17 gm PO BID [facility] Last Admin: 06/10/19 10:45 Dose: Not Given Prochlorperazine Maleate (Compazine -) 10 mg PO Q8H PRN PRN Reason: NAUSEA/VOMITTING Sertraline HCl (Zoloft -) 50 mg PO DAILY [facility] Last Admin: 06/10/19 10:41 Dose: 50 mg Tamsulosin HCl (Flomax -) 0.8 mg PO DAILY@0830 [facility] Last Admin: 06/10/19 10:40 Dose: 0.8 mg Tiotropium [place] (Spiriva Respimat) 2 puff IH DAILY [facility] Last Admin: 06/10/19 10:41 Dose: 2 puff Valacyclovir HCl (Valtrex -) 500 mg PO DAILY [facility] Last Admin: 06/10/19 10:40 Dose: 500 mg - Objective Vital Signs: Vital Signs Temperature 97.6 F 06/10/19 18:00 Pulse Rate 57 L 06/10/19 18:00 Respiratory Rate 20 06/10/19 18:00 Blood Pressure 127/64 06/10/19 18:00 O2 Sat by Pulse Oximetry (%) 92 L 06/10/19 09:00 Constitutional: Yes: No Distress, Calm Eyes: Yes: Conjunctiva Clear Respiratory: Yes: Regular, CTA Bilaterally Gastrointestinal: Yes: Soft. No: Tenderness Labs: CBC, BMP 06/10/19 06:05 06/10/19 06:05 Assessment/Plan 63M with myeloma, on revlimid, CKD, HTN, DM, COPD, methadone dependence, admitted with acute on chronic renal failure, likely from dehydration, resolving.Also with improving blood counts (myelosuppression 2/2 revlimid). Should f/u at oncology clinic.
[2019-06-10] MEDS: ATORVASTATIN CA 80 MG TABLET (FP) PO SCH (22:31)
[2019-06-11] MEDS ORDERED: METHADONE HCL 5 MG TABLET ONE (06:23)
[2019-06-11] MEDS ORDERED: METHADONE HCL 10 MG TABLET ONE (06:23)
[2019-06-11] MEDS: NYSTATIN 500,000 UNITS/5 ML SUSPENSION PO SCH ×2 (06:36→13:03)
[2019-06-11] MEDS: METHADONE 30 MG, METHADONE 5 MG PO SCH (06:37)
[2019-06-11] MEDS: INSULIN (LEVEMIR) 100 UNITS/ML UNITS SQ SCH (06:41)
[2019-06-11] MEDS: INSULIN SLIDING SCALE (NOVOLOG) 1 VIAL SQ SCH ×2 (06:42→13:04)
[2019-06-11] MEDS: busPIRone HCL 5 MG TABLET PO SCH (09:30)
[2019-06-11] MEDS: ALLOPURINOL 300 MG TABLET (FP) PO SCH (09:31)
[2019-06-11] MEDS: TAMSULOSIN HCL 0.4 MG CAP PO SCH (09:31)
[2019-06-11] MEDS: CALCIUM (OYSTER SHELL) 500 MG TABLET (FP) PO SCH (09:32)
[2019-06-11] MEDS: FUROSEMIDE 40 MG TABLET (FP) PO SCH (09:33)
[2019-06-11] MEDS: SERTRALINE HCL 50 MG TABLET (FP) PO SCH (09:33)
[2019-06-11] MEDS: FOLIC ACID 1 MG TABLET (FP) PO SCH (09:33)
[2019-06-11] MEDS: amLODIPine BESYLATE 2.5 MG TABLET (FP) PO SCH (09:33)
[2019-06-11] MEDS: TIOTROPIUM BROMIDE 2.5 MCG (SPIRIVA) RESPIMAT INHALER IH SCH (09:34)
[2019-06-11] MEDS: POLYETHYLENE GLYCOL 3350 119 GM BTL PO SCH (09:34)
[2019-06-11] MEDS: valACYclovir HCL 500 MG TABLET (FP) PO SCH (09:34)
[2019-06-11] MEDS: ASPIRIN 81 MG CHEWABLE TABLETS PO SCH (09:34)
[2019-06-11] MEDS: METOPROLOL TARTRATE 50 MG TABLET (FP) PO SCH (09:34)
[2019-06-11] MEDS: Methylnaltrexone Bromide 12 MG/0.6 ML KIT SQ SCH (09:35)
[2019-06-11 09:44] VITALS: BP 138/68; PULSE 62; TEMP 98
[2019-06-12 22:07] LABS: HEP B CORE AB, TOT Positive (Negative)
== END 2019-06-11 13:02 | disposition home or self-care (01) | DRG 683 ==
LOC: JONCNONCHE 07:21 → J7W 09:52 → UNDOADMIN 06-03 14:09 → J7W 06-03 14:09
PROVIDERS: ADMIT Internal Medicine Hematology & Oncology; ATTEND Internal Medicine Hematology & Oncology
DX: N17.9 Acute kidney failure, unspecified (principal); C90.00 Multiple myeloma not having achieved remission; I13.0 Hypertensive heart and chronic kidney disease with heart failure and stage 1 through stage 4 chronic kidney disease, or unspecified chronic kidney disease; F11.20 Opioid dependence, uncomplicated; D61.818 Other pancytopenia; D70.9 Neutropenia, unspecified; J44.9 Chronic obstructive pulmonary disease, unspecified; E11.9 Type 2 diabetes mellitus without complications; N18.9 Chronic kidney disease, unspecified; E87.70 Fluid overload, unspecified; E83.42 Hypomagnesemia; B19.20 Unspecified viral hepatitis C without hepatic coma; E86.0 Dehydration; D64.9 Anemia, unspecified; I50.9 Heart failure, unspecified
CPT/HCPCS: 36415; 76775-TC; 80048; 80053; 80076; 81003; 82436; 82565; 82962; 83735; 84133; 84156; 84300; 85025; 86704; 86706; 86707; 86708; 86709; 86850; 86900; 86901; 87040; 87086; 87186; 87340; 94761; J1447; J7030

== ENCOUNTER 2019-06-22 05:22 | Day surgery (SDC) | payer OTHER ==
[2019-06-22] MEDS ORDERED: DEXAMETHASONE SODIUM PHOSPHATE IVPB ONE (10:00)
[2019-06-22] MEDS ORDERED: MONTELUKAST NA 10 MG TABLET PO ONE (10:00)
[2019-06-22] MEDS ORDERED: [UNRECOGNIZED DRUG - OTHER] IVPB ONE (10:00)
[2019-06-22] MEDS ORDERED: RANITIDINE IVPB ONE (10:00)
[2019-06-22] MEDS ORDERED: ACETAMINOPHEN 325 MG TABLET (FP) PO ONE (10:00)
[2019-06-22] MEDS ORDERED: SODIUM CHLORIDE IVPB ONE (10:30)
[2019-06-22] MEDS ORDERED: DARATUMUMAB IVPB ONE (10:30)
[2019-06-22 11:02] LABS: BASO % 2.5 % (0-2.0); EOS % 3.1 % (0-4.5); HEMATOCRIT 33.4 % (35.4-49); HEMOGLOBIN 10.7 GM/dL (11.7-16.9); LYMPH % 23.9 % (8-40); MCH 27.9 pg (25.7-33.7); MCHC 31.9 g/dl (32.0-35.9); MEAN CELL VOLUME 87.3 fl (80-96); MEAN PLT VOLUME 7.2 fl (7.5-11.1); MONO % 8.8 % (3.8-10.2); NEUT % 61.7 % (42.8-82.8); PLATELET COUNT 316 K/MM3 (134-434); RBC 3.83 M/mm3 (4.00-5.60); WHITE BLOOD COUNT 5.4 K/mm3 (4.0-10.0)
[2019-06-22] MEDS ORDERED: DEXAMETHASONE SOD PHOSPHATE 10 MG/1 ML VIAL IVPB ONE (11:14)
[2019-06-22 11:40] LABS: ALBUMIN 3.1 g/dl (3.4-5.0); BILIRUBIN,TOTAL 0.4 mg/dL (0.2-1); BLOOD UREA NITROGEN 33.7 mg/dL (7-18); CALCIUM 8.7 mg/dL (8.5-10.1); CREATININE 1.6 mg/dL (0.55-1.3); MAGNESIUM 1.9 mg/dL (1.8-2.4); POTASSIUM 5.1 mmol/L (3.5-5.1)
[2019-06-22] MEDS ORDERED: DEXAMETHASONE SOD PHOSPHATE 10 MG/1 ML VIAL ONE (11:47)
[2019-06-22] MEDS ORDERED: Methylnaltrexone Bromide 12 MG/0.6 ML KIT SQ SCH (19:00)
[2019-06-22] MEDS ORDERED: morphine SULFATE IMMEDIATE RELEASE 30 MG TAB PO PRN (19:25)
[2019-06-22] MEDS: INSULIN (NOVOLOG) ASPART 100 UNITS/ML 10ML VIAL SQ PRN (21:04)
[2019-06-22] MEDS ORDERED: METOPROLOL TARTRATE 50 MG TABLET (FP) PO SCH (22:00)
[2019-06-22] MEDS ORDERED: ATORVASTATIN CA 80 MG TABLET (FP) PO SCH (22:00)
[2019-06-22] MEDS ORDERED: CALCIUM 500MG/VIT-D 200 UNITS COMBO TABLET (FP) PO SCH (22:00)
[2019-06-23] MEDS: INSULIN (NOVOLOG) ASPART 100 UNITS/ML 10ML VIAL SQ PRN (06:35)
[2019-06-23] MEDS ORDERED: INSULIN (LEVEMIR) 100 UNITS/ML UNITS SQ SCH (07:00)
[2019-06-23 07:10] VITALS: BP 149/85; PULSE 61; TEMP 97.5
[2019-06-23 08:10] LABS: BASO % 0.1 % (0-2.0); HEMATOCRIT 29.9 % (35.4-49); HEMOGLOBIN 9.9 GM/dL (11.7-16.9); LYMPH % 10.6 % (8-40); MCH 28.4 pg (25.7-33.7); MCHC 33.1 g/dl (32.0-35.9); MEAN CELL VOLUME 85.9 fl (80-96); MEAN PLT VOLUME 7.8 fl (7.5-11.1); MONO % 5.3 % (3.8-10.2); PLATELET COUNT 298 K/MM3 (134-434); RBC 3.48 M/mm3 (4.00-5.60); RDW 17.2 % (11.9-15.9); WHITE BLOOD COUNT 4.4 K/mm3 (4.0-10.0)
[2019-06-23] MEDS ORDERED: DEXAMETHASONE SOD PHOSPHATE 4 MG/1 ML VIAL IVPB ONE (08:10)
[2019-06-23 08:24] LABS: BILIRUBIN,TOTAL 0.3 mg/dL (0.2-1); CALCIUM 8.6 mg/dL (8.5-10.1); CREATININE 1.6 mg/dL (0.55-1.3); POTASSIUM 5.4 mmol/L (3.5-5.1); TOT PROT 6.5 g/dl (6.4-8.2)
[2019-06-23] MEDS ORDERED: valACYclovir HCL 500 MG TABLET (FP) PO SCH (10:00)
[2019-06-23] MEDS ORDERED: TIOTROPIUM BROMIDE 2.5 MCG (SPIRIVA) RESPIMAT INHALER IH SCH (10:00)
[2019-06-23] MEDS ORDERED: PANTOPRAZOLE 40 MG TABLET (FP) PO SCH (10:00)
[2019-06-23] MEDS ORDERED: FUROSEMIDE 40 MG TABLET (FP) PO SCH (10:00)
[2019-06-23] MEDS ORDERED: ASPIRIN 81 MG CHEWABLE TABLETS PO SCH (10:00)
[2019-06-23] MEDS ORDERED: SERTRALINE HCL 50 MG TABLET (FP) PO SCH (10:00)
[2019-06-23] MEDS ORDERED: ALLOPURINOL 300 MG TABLET (FP) PO SCH (10:00)
== END 2019-06-23 08:17 | disposition home or self-care (01) ==
LOC: JONCCHEMO 05:22 → J7W 11:43 → JONCCHEMO 06-23 08:17
PROVIDERS: ATTEND Internal Medicine Hematology & Oncology
DX: Z51.11 Encounter for antineoplastic chemotherapy (principal); C90.00 Multiple myeloma not having achieved remission; J45.909 Unspecified asthma, uncomplicated; E11.9 Type 2 diabetes mellitus without complications; B19.20 Unspecified viral hepatitis C without hepatic coma; I10 Essential (primary) hypertension
CPT/HCPCS: 36415; 80053; 82962; 83615; 83735; 85025; 96367; 96375; 96413; 96415; J1100; J9145

== ENCOUNTER 2019-06-23 05:23 | Day surgery (SDC) | payer OTHER ==
[2019-06-23] MEDS ORDERED: ACETAMINOPHEN 325 MG TABLET (FP) PO ONE (10:00)
[2019-06-23] MEDS ORDERED: DEXAMETHASONE SODIUM PHOSPHATE IVPB ONE (10:00)
[2019-06-23] MEDS ORDERED: [UNRECOGNIZED DRUG - OTHER] IVPB ONE (10:00)
[2019-06-23] MEDS ORDERED: DIPHENHYDRAMINE IVPB ONE (10:00)
[2019-06-23] MEDS ORDERED: MONTELUKAST NA 10 MG TABLET PO ONE (10:00)
[2019-06-23] MEDS ORDERED: SODIUM CHLORIDE IVPB ONE (10:30)
[2019-06-23] MEDS ORDERED: DARATUMUMAB IVPB ONE (10:30)
[2019-06-23] MEDS ORDERED: METOPROLOL TARTRATE 50 MG TABLET (FP) PO ONE (11:30)
[2019-06-23] MEDS: morphine SULFATE IMMEDIATE RELEASE 30 MG TAB PO PRN (16:17)
[2019-06-23] MEDS: FUROSEMIDE 40 MG TABLET (FP) PO SCH ×2 (16:46→16:53)
[2019-06-23] MEDS: PANTOPRAZOLE 40 MG TABLET (FP) PO SCH ×2 (16:46→16:53)
[2019-06-23] MEDS: ALLOPURINOL 300 MG TABLET (FP) PO SCH ×2 (16:47→16:54)
[2019-06-23] MEDS: valACYclovir HCL 500 MG TABLET (FP) PO SCH ×2 (16:47→16:54)
[2019-06-23] MEDS: SERTRALINE HCL 50 MG TABLET (FP) PO SCH ×3 (16:48→16:59)
[2019-06-23] MEDS: ASPIRIN 81 MG CHEWABLE TABLETS PO SCH (16:58)
[2019-06-23] MEDS ORDERED: INSULIN (NOVOLOG) ASPART 100 UNITS/ML 10ML VIAL ONE (18:10)
--- NOTE | 2019-06-23 20:45 | HP ---
[facility] - Chief Complaint Chief Complaint: Here for C1 split dose daratumumab. 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: Peripheral Neuropathy (stocking glove distribution related to DM) Cardiovascular: Yes: CHF, HTN, Hyperlipdemia, [place] Pulmonary: Yes: Asthma, Other (left chest tube for rib fracture related pneumothorax afte a fall) Gastrointestinal: Yes: Constipation, Other Hepatobiliary: Yes: Hepatitis C (cured several years ago with Dr Bedolla) Renal/: Yes: Renal Inusuff Heme/Onc: Yes: Cancer (Multiple myeloma -received a course of RT and Velban/ cytoxan/dexamathasone) Infectious Disease: Yes: Other (Hepatitis C cured) Musculoskeletal: Yes: Chronic low back pain (multiple thoracolumbar vertebral pathological fractures), Other (multiple thoracolumbar vertebral fractures) Endocrine: Yes: Diabetes Mellitus Dermatology: Yes: Other (varicose veins) Additional Medical History: Laser therapy for diabetic retinopathy - Current Medications Current Medications: Home Medications Medication Instructions Recorded Acetaminophen [Tylenol .Regular 650 mg PO Q6H PRN #0 tablet 06/14/15 Strength -] Buspirone HCl 15 mg PO BID 07/22/18 Ammonium Lactate Lotion 1 applic TP BID PRN bottle 12/21/18 [Lac-Hydrin 12] Aspirin [ASA -] 81 mg PO DAILY tab.chew 12/21/18 Atorvastatin Ca [Lipitor] 80 mg PO HS tablet 12/21/18 Insulin Sliding Scale [Novolog 1 vial SQ TIDAC units 12/21/18 Vial Sliding Scale -] Pantoprazole Suspension [Protonix 40 mg PO DAILY packet 12/21/18 Packets For Oral Suspension -] Furosemide [Lasix -] 40 mg PO BID@0600,1400 #60 tablet 01/12/19 MDD 2 Insulin (Levemir) [Levemir Vial] 10 units SQ DAILY@0700 #100 units 01/12/19 Metoprolol Tartrate [Lopressor -] 50 mg PO BID #30 tablet MDD 2 01/12/19 Sertraline HCl [Zoloft -] 50 mg PO DAILY #30 tablet MDD 1 01/12/19 Folic Acid 1 mg PO DAILY #30 tablet 01/16/19 Insulin Glargine,Hum.rec.anlog 15 units SQ ASDIR 03/29/19 [Basaglar Kwyoshipen U-100] Methadone HCl 30 mg PO DAILY MDD 2 03/29/19 Tiotropium [place] [Spiriva 1 puff IH BID 03/29/19 Respimat] Methylnaltrexone [place] [Relistor 12 mg SQ Q2D@1000 PRN 04/28/19 -] Allopurinol 300 mg PO DAILY 05/24/19 Calcium 500Mg/Vit-D 200 Units 1 tab PO BID 05/24/19 [Os-Kyler 500+D -] Revlimid 10 mg PO DAILY 05/24/19 Satellite Physical Exam - Physical Examination Vital Signs: Vital Signs Period Temp Pulse Resp BP Sys/Andre Pulse Ox Last 24 Hr 97.7 F-98.7 F 55-70 18-18 135-177/57-89
[2019-06-23] MEDS: CALCIUM 500MG/VIT-D 200 UNITS COMBO TABLET (FP) PO SCH (21:03)
[2019-06-23] MEDS: METOPROLOL TARTRATE 50 MG TABLET (FP) PO SCH (21:03)
[2019-06-23] MEDS ORDERED: methylPREDNISolone 8 MG TABLET PO ONE (21:23)
[2019-06-23] MEDS: INSULIN SLIDING SCALE (NOVOLOG) 1 VIAL SQ SCH (21:26)
[2019-06-23] MEDS: TIOTROPIUM BROMIDE 2.5 MCG (SPIRIVA) RESPIMAT INHALER IH SCH (21:29)
[2019-06-23] MEDS ORDERED: ALBUTEROL SO4 8 GM HFA INHALER IH PRN (21:30)
[2019-06-23] MEDS ORDERED: ATORVASTATIN CA 80 MG TABLET (FP) PO SCH (22:00)
[2019-06-23] MEDS ORDERED: DEXAMETHASONE 4 MG TABLET (FP) PO ONE (22:00)
[2019-06-23] MEDS ORDERED: INSULIN (NOVOLOG) ASPART 100 UNITS/ML 10ML VIAL SQ PRN (22:00)
[2019-06-23] MEDS: BUDESONIDE/FORMETEROL FUMARATE 160/4.5 mcg INHALER IH SCH (22:23)
[2019-06-24] MEDS: INSULIN SLIDING SCALE (NOVOLOG) 1 VIAL SQ SCH ×3 (06:29→17:05)
[2019-06-24] MEDS ORDERED: INSULIN (LEVEMIR) 100 UNITS/ML UNITS SQ SCH (07:00)
[2019-06-24 07:53] LABS: BASO % 0.1 % (0-2.0); HEMATOCRIT 29.1 % (35.4-49); HEMOGLOBIN 9.7 GM/dL (11.7-16.9); LYMPH % 8.4 % (8-40); MCH 28.5 pg (25.7-33.7); MCHC 33.3 g/dl (32.0-35.9); MEAN CELL VOLUME 85.5 fl (80-96); MEAN PLT VOLUME 7.7 fl (7.5-11.1); MONO % 6.9 % (3.8-10.2); NEUT % 84.6 % (42.8-82.8); PLATELET COUNT 291 K/MM3 (134-434); RBC 3.41 M/mm3 (4.00-5.60); RDW 17.3 % (11.9-15.9); WHITE BLOOD COUNT 5.8 K/mm3 (4.0-10.0)
[2019-06-24 08:20] LABS: ALBUMIN 2.9 g/dl (3.4-5.0); BILIRUBIN,TOTAL 0.2 mg/dL (0.2-1); BLOOD UREA NITROGEN 39.8 mg/dL (7-18); CALCIUM 8.4 mg/dL (8.5-10.1); CREATININE 1.5 mg/dL (0.55-1.3); POTASSIUM 4.5 mmol/L (3.5-5.1); TOT PROT 6.2 g/dl (6.4-8.2); URIC ACID 3.2 mg/dL (2.6-7.2)
[2019-06-24] MEDS ORDERED: SERTRALINE HCL 50 MG TABLET (FP) PO SCH (10:00)
[2019-06-24] MEDS ORDERED: ASPIRIN 81 MG CHEWABLE TABLETS PO SCH (10:00)
[2019-06-24] MEDS ORDERED: ALLOPURINOL 300 MG TABLET (FP) PO SCH (10:00)
[2019-06-24] MEDS ORDERED: FUROSEMIDE 40 MG TABLET (FP) PO SCH (10:00)
[2019-06-24] MEDS ORDERED: PANTOPRAZOLE 40 MG TABLET (FP) PO SCH (10:00)
[2019-06-24] MEDS ORDERED: FUROSEMIDE 20 MG TABLET (FP) PO SCH (10:00)
[2019-06-24] MEDS ORDERED: valACYclovir HCL 500 MG TABLET (FP) PO SCH (10:00)
[2019-06-24] MEDS: FUROSEMIDE 40 MG TABLET (FP) PO SCH (10:37)
[2019-06-24] MEDS: ASPIRIN 81 MG CHEWABLE TABLETS PO SCH (10:37)
[2019-06-24] MEDS: valACYclovir HCL 500 MG TABLET (FP) PO SCH (10:38)
[2019-06-24] MEDS: METOPROLOL TARTRATE 50 MG TABLET (FP) PO SCH (10:38)
[2019-06-24] MEDS: ALLOPURINOL 300 MG TABLET (FP) PO SCH (10:38)
[2019-06-24] MEDS: TIOTROPIUM BROMIDE 2.5 MCG (SPIRIVA) RESPIMAT INHALER IH SCH (10:38)
[2019-06-24] MEDS: SERTRALINE HCL 50 MG TABLET (FP) PO SCH (10:38)
[2019-06-24] MEDS: PANTOPRAZOLE 40 MG TABLET (FP) PO SCH (10:38)
[2019-06-24] MEDS: CALCIUM 500MG/VIT-D 200 UNITS COMBO TABLET (FP) PO SCH (10:38)
[2019-06-24] MEDS: BUDESONIDE/FORMETEROL FUMARATE 160/4.5 mcg INHALER IH SCH (10:38)
[2019-06-24] MEDS: morphine SULFATE IMMEDIATE RELEASE 30 MG TAB PO PRN (13:23)
[2019-06-24 17:41] VITALS: BP 123/72; PULSE 66; TEMP 97.8
[2019-06-25] MEDS ORDERED: Methylnaltrexone Bromide 12 MG/0.6 ML KIT SQ SCH (10:00)
== END 2019-06-24 07:25 | disposition home or self-care (01) ==
LOC: JONCCHEMO 05:23 → J7W 08:21 → JONCCHEMO 06-24 07:30
PROVIDERS: ATTEND Internal Medicine Hematology & Oncology
DX: Z51.11 Encounter for antineoplastic chemotherapy (principal); C90.00 Multiple myeloma not having achieved remission; J45.909 Unspecified asthma, uncomplicated; E11.9 Type 2 diabetes mellitus without complications; B19.20 Unspecified viral hepatitis C without hepatic coma; I10 Essential (primary) hypertension
CPT/HCPCS: 36415; 80053; 82962; 83615; 84550; 85025; 96367; 96375; 96413; 96415; J9145

== ENCOUNTER 2019-06-28 05:28 | Day surgery (SDC) | payer OTHER ==
[2019-06-28] MEDS ORDERED: DENOSUMAB 120 MG/1.7 ML VIAL SQ ONE (09:00)
[2019-06-28 10:20] LABS: BASO % 0.4 % (0-2.0); EOS % 12.4 % (0-4.5); HEMATOCRIT 33.5 % (35.4-49); LYMPH % 18.8 % (8-40); MCH 28.6 pg (25.7-33.7); MCHC 32.9 g/dl (32.0-35.9); MEAN PLT VOLUME 7.8 fl (7.5-11.1); MONO % 7.3 % (3.8-10.2); NEUT % 61.1 % (42.8-82.8); PLATELET COUNT 275 K/MM3 (134-434); RBC 3.85 M/mm3 (4.00-5.60); RDW 18.8 % (11.9-15.9); WHITE BLOOD COUNT 7.1 K/mm3 (4.0-10.0)
[2019-06-28 10:51] LABS: ALBUMIN 3.1 g/dl (3.4-5.0); BILIRUBIN,DIRECT 0.1 mg/dL (0.0-0.2); BILIRUBIN,TOTAL 0.2 mg/dL (0.2-1); BLOOD UREA NITROGEN 46.9 mg/dL (7-18); CALCIUM 9.5 mg/dL (8.5-10.1); CREATININE 1.6 mg/dL (0.55-1.3); MAGNESIUM 1.9 mg/dL (1.8-2.4); POTASSIUM 4.9 mmol/L (3.5-5.1); TOT PROT 6.4 g/dl (6.4-8.2); URIC ACID 2.8 mg/dL (2.6-7.2)
[2019-06-28 14:41] VITALS: TEMP 97.9
[2019-06-28 14:42] VITALS: BP 114/72; PULSE 74
== END 2019-06-28 12:30 | disposition home or self-care (01) ==
LOC: JONCCHEMO 05:28 → J7W 12:15 → JERBED 12:15 → JONCCHEMO 12:30
PROVIDERS: ATTEND Internal Medicine Hematology & Oncology
DX: Z51.11 Encounter for antineoplastic chemotherapy (principal); C90.00 Multiple myeloma not having achieved remission; J45.909 Unspecified asthma, uncomplicated; E11.9 Type 2 diabetes mellitus without complications; B19.20 Unspecified viral hepatitis C without hepatic coma; I10 Essential (primary) hypertension
CPT/HCPCS: 36415; 80048; 80076; 83615; 83735; 84550; 85025; 96361; 96367; 96372; 96375; 96413; 96415; J0897

== ENCOUNTER 2019-06-29 05:25 | Day surgery (SDC) | payer OTHER ==
[2019-06-29 08:38] LABS: BASO % 0.4 % (0-2.0); EOS % 14.9 % (0-4.5); HEMATOCRIT 34.1 % (35.4-49); HEMOGLOBIN 11.3 GM/dL (11.7-16.9); LYMPH % 18.3 % (8-40); MCH 28.7 pg (25.7-33.7); MEAN CELL VOLUME 87.1 fl (80-96); MEAN PLT VOLUME 7.6 fl (7.5-11.1); MONO % 7.4 % (3.8-10.2); PLATELET COUNT 268 K/MM3 (134-434); RBC 3.92 M/mm3 (4.00-5.60); RDW 19.2 % (11.9-15.9); WHITE BLOOD COUNT 6.3 K/mm3 (4.0-10.0)
[2019-06-29] MEDS ORDERED: ACETAMINOPHEN 325 MG TABLET (FP) PO ONE (09:00)
[2019-06-29] MEDS ORDERED: MONTELUKAST NA 10 MG TABLET PO ONE (09:00)
[2019-06-29] MEDS ORDERED: DEXAMETHASONE INJECTION 20 MG, RANITIDINE INJECTION 50 MG, DIPHENHYDRAMINE 50 MG in SOD... IVPB ONE (09:00)
[2019-06-29 09:04] LABS: ALBUMIN 3.1 g/dl (3.4-5.0); BILIRUBIN,TOTAL 0.3 mg/dL (0.2-1); BLOOD UREA NITROGEN 42.9 mg/dL (7-18); CALCIUM 9.1 mg/dL (8.5-10.1); CREATININE 1.5 mg/dL (0.55-1.3); POTASSIUM 4.6 mmol/L (3.5-5.1); TOT PROT 6.4 g/dl (6.4-8.2)
[2019-06-29] MEDS ORDERED: SODIUM CHLORIDE IVPB ONE (10:00)
[2019-06-29] MEDS ORDERED: DARATUMUMAB IVPB ONE (10:00)
[2019-06-29] MEDS ORDERED: DEXAMETHASONE SOD PHOSPHATE 10 MG/1 ML VIAL IVPB ONE (10:03)
[2019-06-29] MEDS ORDERED: SODIUM CHLORIDE 250 ML IV STA (10:12)
[2019-06-29 17:13] VITALS: TEMP 97.8
[2019-06-29] MEDS ORDERED: BUDESONIDE/FORMETEROL FUMARATE 160/4.5 mcg INHALER IH ONE (17:24)
[2019-06-29] MEDS ORDERED: ALBUTEROL SO4 8 GM HFA INHALER IH ONE (17:25)
[2019-06-29] MEDS ORDERED: amLODIPine BESYLATE 5 MG TABLET (FP) PO ONE (17:45)
[2019-06-29] MEDS ORDERED: DEXAMETHASONE 4 MG TABLET (FP) PO ONE (17:45)
[2019-06-29] MEDS ORDERED: INSULIN (NOVOLOG) ASPART 100 UNITS/ML 10ML VIAL ONE (17:55)
[2019-06-29] MEDS ORDERED: INSULIN (NOVOLOG) ASPART 100 UNITS/ML 10ML VIAL SQ ONE (18:05)
[2019-06-29 18:39] VITALS: BP 176/76; PULSE 73
[2019-06-30] MEDS ORDERED: Insulin (LOG) Aspart 100 UNITS/ML VIAL SQ ONE (17:45)
[2019-06-30 18:07] LABS: FREE KAPPA,SERUM 166.6 mg/L (3.3-19.4)
== END 2019-06-29 18:39 | disposition home or self-care (01) ==
LOC: JONCCHEMO 05:25 → J7W 09:32 → JONCCHEMO 18:39
PROVIDERS: ATTEND Internal Medicine Hematology & Oncology
DX: Z51.11 Encounter for antineoplastic chemotherapy (principal); C90.00 Multiple myeloma not having achieved remission; J45.909 Unspecified asthma, uncomplicated; B19.20 Unspecified viral hepatitis C without hepatic coma; E11.9 Type 2 diabetes mellitus without complications; I10 Essential (primary) hypertension
CPT/HCPCS: 36415; 80053; 82962; 83883; 85025; 96361; 96367; 96375; 96413; 96415; J1100; J9145

== ENCOUNTER 2019-07-06 05:32 | Day surgery (SDC) | payer OTHER ==
[2019-07-06 09:00] LABS: BASO % 0.2 % (0-2.0); EOS % 3.1 % (0-4.5); HEMATOCRIT 32.2 % (35.4-49); HEMOGLOBIN 10.8 GM/dL (11.7-16.9); LYMPH % 13.5 % (8-40); MCHC 33.4 g/dl (32.0-35.9); MEAN CELL VOLUME 86.6 fl (80-96); MEAN PLT VOLUME 7.7 fl (7.5-11.1); MONO % 5.1 % (3.8-10.2); NEUT % 78.1 % (42.8-82.8); PLATELET COUNT 177 K/MM3 (134-434); RBC 3.72 M/mm3 (4.00-5.60); RDW 19.9 % (11.9-15.9); WHITE BLOOD COUNT 7.5 K/mm3 (4.0-10.0)
[2019-07-06] MEDS ORDERED: DEXAMETHASONE SODIUM PHOSPHATE 20 MG, DIPHENHYDRAMINE 50 MG, RANITIDINE INJECTION 50 MG... IVPB ONE (09:30)
[2019-07-06] MEDS ORDERED: ACETAMINOPHEN 325 MG TABLET (FP) PO ONE (09:30)
[2019-07-06] MEDS ORDERED: MONTELUKAST NA 10 MG TABLET PO ONE (09:30)
[2019-07-06 09:34] LABS: BILIRUBIN,TOTAL 0.3 mg/dL (0.2-1); BLOOD UREA NITROGEN 34.4 mg/dL (7-18); CALCIUM 8.5 mg/dL (8.5-10.1); CREATININE 1.3 mg/dL (0.55-1.3); MAGNESIUM 1.6 mg/dL (1.8-2.4); POTASSIUM 4.5 mmol/L (3.5-5.1); TOT PROT 6.3 g/dl (6.4-8.2)
[2019-07-06] MEDS ORDERED: DARATUMUMAB IVPB ONE (10:00)
[2019-07-06] MEDS ORDERED: SODIUM CHLORIDE IVPB ONE (10:00)
[2019-07-06] MEDS ORDERED: MAGNESIUM SULF 50% (8.12 MEQ/2 ML-1 GM VIAL) IVPB ONE (11:00)
[2019-07-06] MEDS ORDERED: INSULIN (LEVEMIR) 100 UNITS/ML UNITS SQ ONE (12:30)
[2019-07-06 16:09] VITALS: TEMP 98.7
[2019-07-06 16:48] VITALS: BP 155/86; PULSE 68
== END 2019-07-06 16:30 | disposition home or self-care (01) ==
LOC: JONCCHEMO 05:32 → J7W 09:44 → JONCCHEMO 16:30
PROVIDERS: ATTEND Internal Medicine Hematology & Oncology
DX: Z51.11 Encounter for antineoplastic chemotherapy (principal); C90.00 Multiple myeloma not having achieved remission; J45.909 Unspecified asthma, uncomplicated; B19.20 Unspecified viral hepatitis C without hepatic coma; E11.9 Type 2 diabetes mellitus without complications; I10 Essential (primary) hypertension
CPT/HCPCS: 36415; 80053; 83735; 85025; 96367; 96375; 96413; 96415; 96417; J9145

== ENCOUNTER 2019-07-13 07:09 | Day surgery (SDC) | payer OTHER ==
[2019-07-13 09:00] LABS: BASO % 0.2 % (0-2.0); EOS % 2.7 % (0-4.5); HEMATOCRIT 34.3 % (35.4-49); HEMOGLOBIN 11.2 GM/dL (11.7-16.9); MCH 28.9 pg (25.7-33.7); MCHC 32.7 g/dl (32.0-35.9); MEAN CELL VOLUME 88.2 fl (80-96); MEAN PLT VOLUME 7.3 fl (7.5-11.1); MONO % 4.6 % (3.8-10.2); NEUT % 80.5 % (42.8-82.8); PLATELET COUNT 175 K/MM3 (134-434); RBC 3.89 M/mm3 (4.00-5.60); RDW 19.4 % (11.9-15.9); WHITE BLOOD COUNT 7.8 K/mm3 (4.0-10.0)
[2019-07-13 09:30] LABS: ALBUMIN 3.1 g/dl (3.4-5.0); BILIRUBIN,TOTAL 0.3 mg/dL (0.2-1); BLOOD UREA NITROGEN 28.7 mg/dL (7-18); CREATININE 1.4 mg/dL (0.55-1.3); MAGNESIUM 1.6 mg/dL (1.8-2.4); POTASSIUM 4.9 mmol/L (3.5-5.1); TOT PROT 6.2 g/dl (6.4-8.2); URIC ACID 2.5 mg/dL (2.6-7.2)
[2019-07-13] MEDS ORDERED: ACETAMINOPHEN 325 MG TABLET (FP) PO ONE (10:00)
[2019-07-13] MEDS ORDERED: DEXAMETHASONE SODIUM PHOSPHATE IVPB ONE (10:00)
[2019-07-13] MEDS ORDERED: [UNRECOGNIZED DRUG - OTHER] IVPB ONE (10:00)
[2019-07-13] MEDS ORDERED: MONTELUKAST NA 10 MG TABLET PO ONE (10:00)
[2019-07-13] MEDS ORDERED: RANITIDINE IVPB ONE (10:00)
[2019-07-13] MEDS ORDERED: MAGNESIUM OXIDE 400 MG TABLET (FP) PO ONE (10:06)
[2019-07-13] MEDS ORDERED: DARATUMUMAB IVPB ONE (10:30)
[2019-07-13] MEDS ORDERED: SODIUM CHLORIDE IVPB ONE (10:30)
[2019-07-13] MEDS ORDERED: DEXAMETHASONE 4 MG TABLET (FP) PO ONE (14:00)
[2019-07-13 14:42] VITALS: BP 159/90; PULSE 73; TEMP 98.5
== END 2019-07-13 14:35 | disposition home or self-care (01) ==
LOC: JONCCHEMO 07:09 → J7W 09:10 → JONCCHEMO 14:35
PROVIDERS: ATTEND Internal Medicine Hematology & Oncology
DX: Z51.11 Encounter for antineoplastic chemotherapy (principal); C90.00 Multiple myeloma not having achieved remission; J45.909 Unspecified asthma, uncomplicated; B19.20 Unspecified viral hepatitis C without hepatic coma; E11.9 Type 2 diabetes mellitus without complications; I10 Essential (primary) hypertension
CPT/HCPCS: 36415; 80053; 83615; 83735; 84550; 85025; 87516; 96367; 96375; 96413; 96415; J9145

== ENCOUNTER 2019-07-20 07:11 | Day surgery (SDC) | payer OTHER ==
[2019-07-20 09:28] LABS: BASO % 0.2 % (0-2.0); EOS % 2.9 % (0-4.5); HEMATOCRIT 35.6 % (35.4-49); HEMOGLOBIN 11.6 GM/dL (11.7-16.9); LYMPH % 16.9 % (8-40); MCH 28.7 pg (25.7-33.7); MCHC 32.5 g/dl (32.0-35.9); MEAN CELL VOLUME 88.5 fl (80-96); MEAN PLT VOLUME 7.5 fl (7.5-11.1); MONO % 4.9 % (3.8-10.2); NEUT % 75.1 % (42.8-82.8); PLATELET COUNT 162 K/MM3 (134-434); RBC 4.03 M/mm3 (4.00-5.60); RDW 19.5 % (11.9-15.9); WHITE BLOOD COUNT 5.7 K/mm3 (4.0-10.0)
[2019-07-20] MEDS ORDERED: DEXAMETHASONE SODIUM PHOSPHATE IVPB ONE (09:30)
[2019-07-20] MEDS ORDERED: [UNRECOGNIZED DRUG - OTHER] IVPB ONE (09:30)
[2019-07-20] MEDS ORDERED: MONTELUKAST NA 10 MG TABLET PO ONE (09:30)
[2019-07-20] MEDS ORDERED: ACETAMINOPHEN 325 MG TABLET (FP) PO ONE (09:30)
[2019-07-20] MEDS ORDERED: RANITIDINE IVPB ONE (09:30)
[2019-07-20] MEDS ORDERED: DARATUMUMAB IVPB ONE (10:00)
[2019-07-20] MEDS ORDERED: SODIUM CHLORIDE IVPB ONE (10:00)
[2019-07-20 10:05] LABS: ALBUMIN 3.1 g/dl (3.4-5.0); BILIRUBIN,TOTAL 0.3 mg/dL (0.2-1); BLOOD UREA NITROGEN 27.2 mg/dL (7-18); CALCIUM 8.3 mg/dL (8.5-10.1); CREATININE 1.4 mg/dL (0.55-1.3); MAGNESIUM 1.8 mg/dL (1.8-2.4); POTASSIUM 4.5 mmol/L (3.5-5.1); TOT PROT 6.2 g/dl (6.4-8.2)
[2019-07-20] MEDS ORDERED: DEXAMETHASONE 4 MG TABLET (FP) PO ONE ×2 (11:30)
[2019-07-20 16:36] VITALS: BP 179/69; PULSE 76; TEMP 98.1
== END 2019-07-20 16:25 | disposition home or self-care (01) ==
LOC: JONCCHEMO 07:11 → J7W 10:01 → JONCCHEMO 16:25
PROVIDERS: ATTEND Internal Medicine Hematology & Oncology
DX: Z51.11 Encounter for antineoplastic chemotherapy (principal); C90.00 Multiple myeloma not having achieved remission; J45.909 Unspecified asthma, uncomplicated; B19.20 Unspecified viral hepatitis C without hepatic coma; E11.9 Type 2 diabetes mellitus without complications; I10 Essential (primary) hypertension
CPT/HCPCS: 36415; 80053; 83735; 85025; 96367; 96375; 96413; 96415; J9145

== ENCOUNTER 2019-07-27 08:32 | Day surgery (SDC) | payer OTHER ==
[2019-07-27 09:01] LABS: BASO % 0.2 % (0-2.0); EOS % 2.6 % (0-4.5); HEMATOCRIT 37.3 % (35.4-49); HEMOGLOBIN 12.2 GM/dL (11.7-16.9); LYMPH % 12.1 % (8-40); MCH 28.8 pg (25.7-33.7); MCHC 32.7 g/dl (32.0-35.9); MEAN CELL VOLUME 88.2 fl (80-96); MEAN PLT VOLUME 7.4 fl (7.5-11.1); MONO % 3.7 % (3.8-10.2); NEUT % 81.4 % (42.8-82.8); PLATELET COUNT 106 K/MM3 (134-434); RBC 4.23 M/mm3 (4.00-5.60); RDW 18.9 % (11.9-15.9); WHITE BLOOD COUNT 6.4 K/mm3 (4.0-10.0)
[2019-07-27 09:29] LABS: BILIRUBIN,TOTAL 0.4 mg/dL (0.2-1); BLOOD UREA NITROGEN 33.5 mg/dL (7-18); CALCIUM 7.9 mg/dL (8.5-10.1); CREATININE 1.7 mg/dL (0.55-1.3); MAGNESIUM 1.4 mg/dL (1.8-2.4); POTASSIUM 4.4 mmol/L (3.5-5.1); TOT PROT 5.9 g/dl (6.4-8.2)
[2019-07-27] MEDS ORDERED: ACETAMINOPHEN 325 MG TABLET (FP) PO ONE (10:30)
[2019-07-27] MEDS ORDERED: DEXAMETHASONE SODIUM PHOSPHATE 20 MG, DIPHENHYDRAMINE 50 MG, RANITIDINE INJECTION 50 MG... IVPB ONE (10:30)
[2019-07-27] MEDS ORDERED: MONTELUKAST NA 10 MG TABLET PO ONE (10:30)
[2019-07-27] MEDS ORDERED: MAGNESIUM SULF 50% (8.12 MEQ/2 ML-1 GM VIAL) IVPB ONE (10:45)
[2019-07-27] MEDS ORDERED: DARATUMUMAB IVPB ONE (11:00)
[2019-07-27] MEDS ORDERED: SODIUM CHLORIDE IVPB ONE (11:00)
[2019-07-27 16:29] VITALS: TEMP 97.4
[2019-07-27 16:30] VITALS: BP 153/85; PULSE 72
[2019-07-27] MEDS ORDERED: DEXAMETHASONE 4 MG TABLET (FP) PO ONE (16:40)
[2019-07-27] MEDS ORDERED: TRIAMCINOLONE ACET 0.1% CREAM 15 GM TUBE TP SCH (22:00)
== END 2019-07-27 16:20 | disposition home or self-care (01) ==
LOC: JONCCHEMO 08:32 → J7W 10:01 → JONCCHEMO 16:20
PROVIDERS: ATTEND Internal Medicine Hematology & Oncology
DX: Z51.11 Encounter for antineoplastic chemotherapy (principal); C90.00 Multiple myeloma not having achieved remission; J45.909 Unspecified asthma, uncomplicated; B19.20 Unspecified viral hepatitis C without hepatic coma; E11.9 Type 2 diabetes mellitus without complications; I10 Essential (primary) hypertension
CPT/HCPCS: 36415; 80053; 83735; 85025; 96367; 96375; 96413; 96415; J9145

== ENCOUNTER 2019-08-03 05:28 | Day surgery (SDC) | payer OTHER ==
[2019-08-03 09:44] LABS: BASO % 0.6 % (0-2.0); EOS % 2.9 % (0-4.5); HEMATOCRIT 35.4 % (35.4-49); HEMOGLOBIN 11.6 GM/dL (11.7-16.9); LYMPH % 20.4 % (8-40); MCH 28.7 pg (25.7-33.7); MCHC 32.7 g/dl (32.0-35.9); MEAN CELL VOLUME 87.9 fl (80-96); MEAN PLT VOLUME 7.5 fl (7.5-11.1); MONO % 8.2 % (3.8-10.2); NEUT % 67.9 % (42.8-82.8); PLATELET COUNT 120 K/MM3 (134-434); RBC 4.03 M/mm3 (4.00-5.60); RDW 18.9 % (11.9-15.9); WHITE BLOOD COUNT 5.2 K/mm3 (4.0-10.0)
[2019-08-03] MEDS ORDERED: ACETAMINOPHEN 325 MG TABLET (FP) PO ONE (10:00)
[2019-08-03] MEDS ORDERED: DEXAMETHASONE SODIUM PHOSPHATE IVPB ONE (10:00)
[2019-08-03] MEDS ORDERED: MONTELUKAST NA 10 MG TABLET PO ONE (10:00)
[2019-08-03] MEDS ORDERED: SODIUM CHLORIDE 500 ML IV SCH ×2 (10:00→10:16)
[2019-08-03] MEDS ORDERED: RANITIDINE IVPB ONE (10:00)
[2019-08-03] MEDS ORDERED: [UNRECOGNIZED DRUG - OTHER] IVPB ONE (10:00)
[2019-08-03] MEDS ORDERED: CEPHALEXIN MONOHYDRATE 500 MG CAPSULE (UD) PO SCH (10:00)
[2019-08-03 10:18] LABS: BILIRUBIN,TOTAL 0.2 mg/dL (0.2-1); BLOOD UREA NITROGEN 32.4 mg/dL (7-18); CALCIUM 8.6 mg/dL (8.5-10.1); CREATININE 1.5 mg/dL (0.55-1.3); MAGNESIUM 1.9 mg/dL (1.8-2.4); POTASSIUM 4.8 mmol/L (3.5-5.1); TOT PROT 6.1 g/dl (6.4-8.2); URIC ACID 4.4 mg/dL (2.6-7.2)
[2019-08-03] MEDS: DARATUMUMAB IVPB ONE ×2 (10:30→11:02)
[2019-08-03] MEDS: SODIUM CHLORIDE IVPB ONE ×2 (10:30→11:02)
[2019-08-03] MEDS ORDERED: DEXAMETHASONE 4 MG TABLET (FP) PO ONE (12:00)
[2019-08-03 16:01] VITALS: BP 166/88; PULSE 72; TEMP 98
== END 2019-08-03 15:30 | disposition home or self-care (01) ==
LOC: JONCCHEMO 05:28 → J7W 09:58 → JONCCHEMO 15:30
PROVIDERS: ATTEND Internal Medicine Hematology & Oncology
PROC: 3E04305 Introduction of Other Antineoplastic into Central Vein, Percutaneous Approach (ICD-10-PCS; principal; 2019-08-03)
PROC: 3E043GC Introduction of Other Therapeutic Substance into Central Vein, Percutaneous Approach (ICD-10-PCS; 2019-08-03)
PROC: 3E0437Z Introduction of Electrolytic and Water Balance Substance into Central Vein, Percutaneous Approach (ICD-10-PCS; 2019-08-03)
DX: Z51.11 Encounter for antineoplastic chemotherapy (principal); C90.00 Multiple myeloma not having achieved remission; I10 Essential (primary) hypertension; E11.9 Type 2 diabetes mellitus without complications
CPT/HCPCS: 36415; 80053; 83615; 83735; 84550; 85025; 96367; 96413; 96415; J7030; J9145

== ENCOUNTER 2019-08-10 07:27 | Day surgery (SDC) | payer OTHER ==
[2019-08-10 09:31] LABS: BASO % 0.8 % (0-2.0); EOS % 3.2 % (0-4.5); HEMATOCRIT 34.6 % (35.4-49); HEMOGLOBIN 11.5 GM/dL (11.7-16.9); LYMPH % 27.2 % (8-40); MCH 29.3 pg (25.7-33.7); MCHC 33.2 g/dl (32.0-35.9); MEAN CELL VOLUME 88.2 fl (80-96); MEAN PLT VOLUME 7.9 fl (7.5-11.1); MONO % 6.3 % (3.8-10.2); NEUT % 62.5 % (42.8-82.8); PLATELET COUNT 176 K/MM3 (134-434); RBC 3.93 M/mm3 (4.00-5.60); RDW 18.4 % (11.9-15.9); WHITE BLOOD COUNT 4.3 K/mm3 (4.0-10.0)
[2019-08-10 09:58] LABS: ALBUMIN 3.1 g/dl (3.4-5.0); BILIRUBIN,TOTAL 0.2 mg/dL (0.2-1); BLOOD UREA NITROGEN 37.6 mg/dL (7-18); CALCIUM 8.8 mg/dL (8.5-10.1); CREATININE 1.6 mg/dL (0.55-1.3); MAGNESIUM 1.9 mg/dL (1.8-2.4); POTASSIUM 4.7 mmol/L (3.5-5.1); TOT PROT 6.1 g/dl (6.4-8.2); URIC ACID 5.2 mg/dL (2.6-7.2)
[2019-08-10] MEDS ORDERED: DEXAMETHASONE SODIUM PHOSPHATE 20 MG, DIPHENHYDRAMINE 50 MG, RANITIDINE INJECTION 50 MG... IVPB ONE (10:00)
[2019-08-10] MEDS ORDERED: MONTELUKAST NA 10 MG TABLET PO ONE (10:00)
[2019-08-10] MEDS ORDERED: ACETAMINOPHEN 325 MG TABLET (FP) PO ONE (10:00)
[2019-08-10] MEDS ORDERED: SODIUM CHLORIDE IVPB ONE (10:30)
[2019-08-10] MEDS ORDERED: DARATUMUMAB IVPB ONE (10:30)
[2019-08-10] MEDS ORDERED: DEXAMETHASONE 4 MG TABLET (FP) PO ONE (12:00)
[2019-08-10 15:41] VITALS: TEMP 97.5
[2019-08-10 16:37] VITALS: BP 195/89; PULSE 76
[2019-08-11 17:09] LABS: FREE KAPPA,SERUM 153.7 mg/L (3.3-19.4)
== END 2019-08-10 16:38 | disposition home or self-care (01) ==
LOC: JONCCHEMO 07:27 → J7W 10:07 → JONCCHEMO 16:38
PROVIDERS: ATTEND Internal Medicine Hematology & Oncology
DX: Z51.11 Encounter for antineoplastic chemotherapy (principal); C90.00 Multiple myeloma not having achieved remission; E11.9 Type 2 diabetes mellitus without complications; I10 Essential (primary) hypertension
CPT/HCPCS: 36415; 80053; 83615; 83735; 83883; 84550; 85025; 96367; 96413; 96415; J9145

== ENCOUNTER 2019-08-17 07:22 | Day surgery (SDC) | payer OTHER ==
[2019-08-17 09:06] LABS: BASO % 0.3 % (0-2.0); EOS % 2.4 % (0-4.5); HEMATOCRIT 36.4 % (35.4-49); HEMOGLOBIN 12.2 GM/dL (11.7-16.9); LYMPH % 28.1 % (8-40); MCH 29.4 pg (25.7-33.7); MCHC 33.4 g/dl (32.0-35.9); MEAN PLT VOLUME 6.9 fl (7.5-11.1); MONO % 6.8 % (3.8-10.2); NEUT % 62.4 % (42.8-82.8); PLATELET COUNT 166 K/MM3 (134-434); RBC 4.14 M/mm3 (4.00-5.60); RDW 17.9 % (11.9-15.9); WHITE BLOOD COUNT 5.4 K/mm3 (4.0-10.0)
[2019-08-17 09:31] LABS: ALBUMIN 3.3 g/dl (3.4-5.0); BILIRUBIN,TOTAL 0.2 mg/dL (0.2-1); BLOOD UREA NITROGEN 33.8 mg/dL (7-18); CREATININE 1.5 mg/dL (0.55-1.3); MAGNESIUM 1.7 mg/dL (1.8-2.4); POTASSIUM 4.9 mmol/L (3.5-5.1); TOT PROT 6.3 g/dl (6.4-8.2)
[2019-08-17] MEDS ORDERED: [UNRECOGNIZED DRUG - OTHER] IVPB ONE (10:00)
[2019-08-17] MEDS ORDERED: MONTELUKAST NA 10 MG TABLET PO ONE (10:00)
[2019-08-17] MEDS ORDERED: ACETAMINOPHEN 325 MG TABLET (FP) PO ONE (10:00)
[2019-08-17] MEDS ORDERED: RANITIDINE IVPB ONE (10:00)
[2019-08-17] MEDS ORDERED: DEXAMETHASONE SODIUM PHOSPHATE IVPB ONE (10:00)
[2019-08-17] MEDS ORDERED: DARATUMUMAB IVPB ONE (10:30)
[2019-08-17] MEDS ORDERED: SODIUM CHLORIDE IVPB ONE (10:30)
[2019-08-17] MEDS ORDERED: DEXAMETHASONE 4 MG TABLET (FP) PO ONE (13:00)
[2019-08-17 17:33] VITALS: BP 179/89; PULSE 68; TEMP 97.5
== END 2019-08-17 16:40 | disposition home or self-care (01) ==
LOC: JONCCHEMO 07:22 → J7W 10:18 → JONCCHEMO 16:40
PROVIDERS: ATTEND Internal Medicine Hematology & Oncology
DX: Z51.11 Encounter for antineoplastic chemotherapy (principal); C90.00 Multiple myeloma not having achieved remission; E11.9 Type 2 diabetes mellitus without complications; I10 Essential (primary) hypertension
CPT/HCPCS: 36415; 80053; 83735; 85025; 96367; 96413; 96415; J9145

== ENCOUNTER 2019-09-01 05:48 | Day surgery (SDC) | payer OTHER ==
[2019-09-01] MEDS ORDERED: ACETAMINOPHEN 325 MG TABLET (FP) PO ONE (09:30)
[2019-09-01] MEDS ORDERED: DEXAMETHASONE SODIUM PHOSPHATE 20 MG, DIPHENHYDRAMINE 50 MG, RANITIDINE INJECTION 50 MG... IVPB ONE (09:30)
[2019-09-01] MEDS ORDERED: MONTELUKAST NA 10 MG TABLET PO ONE (09:30)
[2019-09-01] MEDS ORDERED: DARATUMUMAB IVPB ONE (10:00)
[2019-09-01] MEDS ORDERED: SODIUM CHLORIDE IVPB ONE (10:00)
[2019-09-01 11:38] LABS: BASO % 0.2 % (0-2.0); EOS % 1.4 % (0-4.5); HEMATOCRIT 35.8 % (35.4-49); HEMOGLOBIN 11.9 GM/dL (11.7-16.9); LYMPH % 19.2 % (8-40); MCH 29.2 pg (25.7-33.7); MCHC 33.4 g/dl (32.0-35.9); MEAN CELL VOLUME 87.3 fl (80-96); MEAN PLT VOLUME 7.3 fl (7.5-11.1); NEUT % 74.2 % (42.8-82.8); PLATELET COUNT 147 K/MM3 (134-434); RDW 16.3 % (11.9-15.9); WHITE BLOOD COUNT 6.4 K/mm3 (4.0-10.0)
[2019-09-01 12:04] LABS: ALBUMIN 3.1 g/dl (3.4-5.0); ALK PHOS 77 U/L (45-117); ANION GAP 4 MMOL/L (8-16); BILIRUBIN,DIRECT < 0.1 mg/dL (0.0-0.2); BILIRUBIN,TOTAL 0.2 mg/dL (0.2-1); BLOOD UREA NITROGEN 30.3 mg/dL (7-18); CALCIUM 8.3 mg/dL (8.5-10.1); CHLORIDE 111 mmol/L (98-107); CO2 24 mmol/L (21-32); CREATININE 1.5 mg/dL (0.55-1.3); GLUCOSE,RANDOM 131 mg/dL (74-106); LDH 198 U/L (87-246); MAGNESIUM 1.9 mg/dL (1.8-2.4); POTASSIUM 4.8 mmol/L (3.5-5.1); SGOT/AST 15 U/L (15-37); SGPT/ALT 20 U/L (13-61); SODIUM 140 mmol/L (136-145); TOT PROT 6.2 g/dl (6.4-8.2)
[2019-09-01] MEDS ORDERED: ACETAMINOPHEN 325 MG TABLET (FP) ONE (13:48)
[2019-09-01] MEDS ORDERED: DEXAMETHASONE 4 MG TABLET (FP) PO ONE (14:00)
[2019-09-01 17:18] VITALS: TEMP 97.3
[2019-09-04 17:23] VITALS: BP 155/78; PULSE 70
== END 2019-09-01 18:30 | disposition home or self-care (01) ==
LOC: JONCCHEMO 05:48 → J7W 10:51 → JONCCHEMO 18:30
PROVIDERS: ATTEND Internal Medicine Hematology & Oncology
DX: Z51.11 Encounter for antineoplastic chemotherapy (principal); C90.00 Multiple myeloma not having achieved remission; E11.9 Type 2 diabetes mellitus without complications; I10 Essential (primary) hypertension
CPT/HCPCS: 36415; 80048; 80076; 83615; 83735; 84550; 85025; 87517; 96367; 96413; 96415; J9145

== ENCOUNTER 2019-09-08 07:16 | Day surgery (SDC) | payer OTHER ==
[2019-09-08] MEDS ORDERED: DEXAMETHASONE SODIUM PHOSPHATE 20 MG, DIPHENHYDRAMINE 50 MG, RANITIDINE INJECTION 50 MG... IVPB ONE (09:30)
[2019-09-08] MEDS ORDERED: ACETAMINOPHEN 325 MG TABLET (FP) PO ONE (09:30)
[2019-09-08] MEDS ORDERED: MONTELUKAST NA 10 MG TABLET PO ONE (09:30)
[2019-09-08] MEDS ORDERED: DENOSUMAB 120 MG/1.7 ML VIAL SQ ONE (10:00)
[2019-09-08] MEDS ORDERED: SODIUM CHLORIDE IVPB ONE (10:00)
[2019-09-08] MEDS ORDERED: DARATUMUMAB IVPB ONE (10:00)
[2019-09-08 10:03] LABS: BASO % 0.1 % (0-2.0); EOS % 1.8 % (0-4.5); HEMATOCRIT 36.9 % (35.4-49); HEMOGLOBIN 12.3 GM/dL (11.7-16.9); LYMPH % 20.5 % (8-40); MCH 28.7 pg (25.7-33.7); MCHC 33.3 g/dl (32.0-35.9); MEAN CELL VOLUME 86.2 fl (80-96); MEAN PLT VOLUME 7.2 fl (7.5-11.1); MONO % 7.2 % (3.8-10.2); NEUT % 70.4 % (42.8-82.8); PLATELET COUNT 176 K/MM3 (134-434); RBC 4.29 M/mm3 (4.00-5.60); RDW 16.4 % (11.9-15.9); WHITE BLOOD COUNT 6.6 K/mm3 (4.0-10.0)
[2019-09-08 10:15] LABS: ALBUMIN 3.3 g/dl (3.4-5.0); BILIRUBIN,TOTAL 0.2 mg/dL (0.2-1); BLOOD UREA NITROGEN 35.2 mg/dL (7-18); CREATININE 1.7 mg/dL (0.55-1.3); POTASSIUM 4.7 mmol/L (3.5-5.1); TOT PROT 6.3 g/dl (6.4-8.2)
[2019-09-08 10:20] VITALS: BP 157/57; PULSE 62; TEMP 97.8
[2019-09-08] MEDS ORDERED: DEXAMETHASONE 4 MG TABLET (FP) PO ONE (14:30)
[2019-09-09 17:12] LABS: FREE KAPPA,SERUM 168.1 mg/L (3.3-19.4)
[2019-09-12 15:08] LABS: TOTAL PROTEIN, URINE 323.1 mg/dL (Not Estab.)
== END 2019-09-08 10:10 | disposition home or self-care (01) ==
LOC: JONCCHEMO 07:16 → J7W 10:00 → JONCCHEMO 10:10
PROVIDERS: ATTEND Internal Medicine Hematology & Oncology
PROC: 3E013GC Introduction of Other Therapeutic Substance into Subcutaneous Tissue, Percutaneous Approach (ICD-10-PCS; principal; 2019-09-08)
DX: C90.00 Multiple myeloma not having achieved remission (principal); E11.9 Type 2 diabetes mellitus without complications; I10 Essential (primary) hypertension; J45.909 Unspecified asthma, uncomplicated; B19.20 Unspecified viral hepatitis C without hepatic coma
CPT/HCPCS: 36415; 80053; 83883; 84155; 84156; 84157; 84165; 85025; 96372; J0897

== ENCOUNTER 2019-09-15 07:06 | Day surgery (SDC) | payer OTHER ==
[2019-09-15] MEDS ORDERED: MONTELUKAST NA 10 MG TABLET PO ONE (09:30)
[2019-09-15] MEDS ORDERED: FAMOTIDINE 20 MG/50 ML IVPB 20 MG/50 ML MG IVPB ONE (09:30)
[2019-09-15] MEDS ORDERED: DEXAMETHASONE SODIUM PHOSPHATE 20 MG, DIPHENHYDRAMINE 50 MG in SODIUM CHLORIDE 100 ML IVPB ONE (09:30)
[2019-09-15 09:46] LABS: BASO % 0.2 % (0-2.0); EOS % 1.3 % (0-4.5); HEMATOCRIT 39.6 % (35.4-49); HEMOGLOBIN 13.2 GM/dL (11.7-16.9); LYMPH % 18.5 % (8-40); MCH 28.8 pg (25.7-33.7); MCHC 33.3 g/dl (32.0-35.9); MEAN CELL VOLUME 86.6 fl (80-96); MONO % 5.2 % (3.8-10.2); NEUT % 74.8 % (42.8-82.8); PLATELET COUNT 173 K/MM3 (134-434); RBC 4.57 M/mm3 (4.00-5.60); RDW 15.7 % (11.9-15.9); WHITE BLOOD COUNT 6.4 K/mm3 (4.0-10.0)
[2019-09-15] MEDS ORDERED: DARATUMUMAB IVPB ONE (10:00)
[2019-09-15] MEDS ORDERED: SODIUM CHLORIDE IVPB ONE (10:00)
[2019-09-15 10:19] LABS: ALBUMIN 3.4 g/dl (3.4-5.0); BILIRUBIN,TOTAL 0.5 mg/dL (0.2-1); BLOOD UREA NITROGEN 37.8 mg/dL (7-18); CALCIUM 8.3 mg/dL (8.5-10.1); CREATININE 1.5 mg/dL (0.55-1.3); POTASSIUM 4.8 mmol/L (3.5-5.1); TOT PROT 6.4 g/dl (6.4-8.2)
[2019-09-15] MEDS ORDERED: DEXAMETHASONE 4 MG TABLET (FP) PO ONE (14:00)
[2019-09-15] MEDS ORDERED: ACETAMINOPHEN 325 MG TABLET (FP) ONE (15:00)
[2019-09-15 17:30] VITALS: BP 116/71; PULSE 75; TEMP 97.8
[2019-09-16 17:08] LABS: FREE KAPPA,SERUM 178.9 mg/L (3.3-19.4)
== END 2019-09-15 16:15 | disposition home or self-care (01) ==
LOC: JONCCHEMO 07:06 → J7W 10:14 → JONCCHEMO 16:15
PROVIDERS: ATTEND Internal Medicine Hematology & Oncology
DX: Z51.11 Encounter for antineoplastic chemotherapy (principal); C90.00 Multiple myeloma not having achieved remission; E11.9 Type 2 diabetes mellitus without complications; I10 Essential (primary) hypertension; J45.909 Unspecified asthma, uncomplicated; B19.20 Unspecified viral hepatitis C without hepatic coma
CPT/HCPCS: 36415; 80053; 83883; 85025; 87517; 96367; 96413; 96415; J9145

== ENCOUNTER 2019-09-29 06:45 | Day surgery (SDC) | payer OTHER ==
[2019-09-29] MEDS ORDERED: MONTELUKAST NA 10 MG TABLET PO ONE (10:00)
[2019-09-29] MEDS ORDERED: ACETAMINOPHEN 325 MG TABLET (FP) PO ONE (10:00)
[2019-09-29] MEDS ORDERED: DEXAMETHASONE SODIUM PHOSPHATE 20 MG, DIPHENHYDRAMINE 50 MG, RANITIDINE INJECTION 50 MG... IVPB ONE (10:00)
[2019-09-29 10:01] LABS: BASO % 0.2 % (0-2.0); EOS % 2.6 % (0-4.5); HEMATOCRIT 38.2 % (35.4-49); HEMOGLOBIN 12.6 GM/dL (11.7-16.9); LYMPH % 18.1 % (8-40); MCH 28.8 pg (25.7-33.7); MEAN CELL VOLUME 87.1 fl (80-96); MEAN PLT VOLUME 7.6 fl (7.5-11.1); MONO % 4.6 % (3.8-10.2); NEUT % 74.5 % (42.8-82.8); PLATELET COUNT 179 K/MM3 (134-434); RBC 4.38 M/mm3 (4.00-5.60); RDW 15.5 % (11.9-15.9); WHITE BLOOD COUNT 6.2 K/mm3 (4.0-10.0)
[2019-09-29 10:26] LABS: ALBUMIN 3.3 g/dl (3.4-5.0); BILIRUBIN,TOTAL 0.2 mg/dL (0.2-1); CALCIUM 8.5 mg/dL (8.5-10.1); CREATININE 1.6 mg/dL (0.55-1.3); MAGNESIUM 1.6 mg/dL (1.8-2.4); POTASSIUM 4.1 mmol/L (3.5-5.1); TOT PROT 6.5 g/dl (6.4-8.2)
[2019-09-29] MEDS ORDERED: SODIUM CHLORIDE IVPB ONE (10:30)
[2019-09-29] MEDS ORDERED: DARATUMUMAB IVPB ONE (10:30)
[2019-09-29] MEDS ORDERED: MAGNESIUM OXIDE 400 MG TABLET (FP) PO ONE (11:06)
[2019-09-29] MEDS ORDERED: DEXAMETHASONE 4 MG TABLET (FP) PO ONE (12:00)
[2019-09-29 15:54] VITALS: BP 185/89; PULSE 74; TEMP 98.8
== END 2019-09-29 15:55 | disposition home or self-care (01) ==
LOC: JONCCHEMO 06:45 → J7W 10:12 → JONCCHEMO 15:55
PROVIDERS: ATTEND Internal Medicine Hematology & Oncology
DX: Z51.11 Encounter for antineoplastic chemotherapy (principal); C90.00 Multiple myeloma not having achieved remission; I10 Essential (primary) hypertension; E11.9 Type 2 diabetes mellitus without complications; B19.20 Unspecified viral hepatitis C without hepatic coma
CPT/HCPCS: 36415; 80053; 83735; 85025; 96367; 96413; 96415; J9145

== ENCOUNTER 2019-10-06 12:20 | Emergency (ER) | payer OTHER ==
[2019-10-06 12:40] VITALS: BMI 34.8
--- NOTE | 2019-10-06 13:34 | PDOC ---
History of Present Illness - General Chief Complaint: Pain, Acute Stated Complaint: PAIN Time Seen by Provider: 10/06/19 12:47 - History of Present Illness Initial Comments: 10/07/19 23:45 63M PMH MM (active, on chemo, onc Dr. Grady), DM, CKD, HCV s/p cure, HTN, Asthma, COPD (home O2 3L), h/o ACS, h/o substance abuse sent by oncologist for evaluation of 1 week of on/off burning RUQ pain w/ radiation to the shoulder, not associated with food. Endorses occasional nausea w/o vomiting or PO intolerance. Denies f/c, diarrhea, urinary symptoms. Endorses nonproductive cough, sore throat, runny nose, and SOB/DEL VALLE w/ increased O2 requirements. +sick contacts at home. Endorsing left ear pain occasionally, no jaw pain, no changes in vision, no shoulder soreness/pain. Past History - Past Medical History Allergies/Adverse Reactions: Allergies Allergy/AdvReac Type Severity Reaction Status Date / Time No Known Allergies Allergy Verified 10/06/19 12:34 Home Medications: Ambulatory Orders Acetaminophen [Tylenol .Regular Strength -] 650 mg PO Q6H PRN #0 tablet Buspirone HCl 15 mg PO BID 07/22/18 Ammonium Lactate Lotion [Lac-Hydrin 12] 1 applic TP BID PRN bottle 12/21/18 Aspirin [ASA -] 81 mg PO DAILY tab.chew 12/21/18 Atorvastatin Ca [Lipitor] 80 mg PO HS tablet 12/21/18 Insulin Sliding Scale [Novolog Vial Sliding Scale -] 1 vial SQ TIDAC units Pantoprazole Suspension [Protonix Packets For Oral Suspension -] 40 mg PO DAILY packet 12/21/18 Furosemide [Lasix -] 40 mg PO BID@0600,1400 #60 tablet MDD 2 01/12/19 Insulin (Levemir) [Levemir Vial] 10 units SQ DAILY@0700 #100 units 01/12/19 Metoprolol Tartrate [Lopressor -] 50 mg PO BID #30 tablet MDD 2 01/12/19 Sertraline HCl [Zoloft -] 50 mg PO DAILY #30 tablet MDD 1 01/12/19 Folic Acid 1 mg PO DAILY #30 tablet 01/16/19 Insulin Glargine,Hum.rec.anlog [Basaglar Kwikpen U-100] 15 units SQ ASDIR Methadone HCl 30 mg PO DAILY MDD 2 03/29/19 Tiotropium [place] [Spiriva Respimat] 1 puff IH BID 03/29/19 Allopurinol 300 mg PO DAILY 05/24/19 Calcium 500Mg/Vit-D 200 Units [Os-Kyler 500+D -] 1 tab PO BID 05/24/19 Revlimid 10 mg PO DAILY 05/24/19 Anemia: Yes Asthma: Yes Cancer: Yes (myeloma) Cardiac Disorders: Yes (shortness of breath) COPD: Yes Diabetes: Yes GI Disorders: Yes (hep c) HTN: Yes Hypercholesterolemia: Yes - Surgical History Lung Surgery: Yes (fx of rib from occupational fall, rib punctured lung) Orthopedic Surgery: Yes (right toe removed) - Psycho Social/Smoking Cessation Hx Smoking History: Smoker current status UNK Have you smoked in the past 12 months: No If you are a former smoker, when did you quit?: 1996 Information on smoking cessation initiated: No Hx Alcohol Use: No Drug/Substance Use Hx: No Substance Use Type: None Hx Substance Use Treatment: Yes Review of Systems - Review of Systems Comments:: 10/07/19 23:45 CONSTITUTIONAL: Denies F / C HEENT: Endorses ear pain, sore throat, rhinorrhea. Denies headache, changes in vision / hearing, jaw pain RESP: Endorses SOB, DEL [place], increased home O2 requirements, and cough CARD: Endorses chest tightness. Denies chest pain, palpitations GI: Endorses RUQ pain and occasional nausea. Denies V / D, inability to tolerate PO : Denies dysuria, hematuria, frequency SKIN: Denies rashes NEURO: Denies numbness, tingling, weakness *Physical Exam - Vital Signs Last Vital Signs Temp Pulse Resp BP Pulse Ox 97.7 F 71 20 127/65 95 10/06/19 12:38 10/06/19 12:38 10/06/19 12:38 10/06/19 12:38 10/06/19 12:38 - Physical Exam 10/07/19 23:45 GEN: NAD, comfortable. AAOx3 HEENT: NC/AT, CN II-XII intact, EOMI, PERRL, anicteric. No facial asymmetry. EAC clear b/l; TMs nonerythematous, nonbulging b/l. No pinna tenderness, no mastoid tenderness. Moist mucous membranes, nonerythematous nonexudative posterior oropharynx. Normal voice. Supple neck w/ FROM. CV: S1/S2, RRR, no m/r/g; quiet LUNG: isolated crackles on the right base otherwise CTAB, no wheezes, crackles, rales, rhonchi. GI: mildly distended, soft, nontender. +sher signs. no fluid wave. no guarding or rebound. EXTREMITIES: trace pitting LE edema b/l. No obvious deformities of all extremities. SKIN: warm, dry, normal turgor PSYCH: normal mood and affect NEURO: Moving all extremities ED Treatment Course - LABORATORY CBC & Chemistry Diagram: 10/06/19 14:35 10/06/19 14:35 Medical Decision Making - Medical Decision Making 10/06/19 13:33 63M PMH MM (active, on chemo, onc Dr. Grady), DM, CKD, HCV s/p cure, HTN, Asthma, COPD (home O2 3L), h/o ACS, h/o substance abuse sent by Dr. Grady for RUQ abdominal pain x1 week and 3-4 days of cough, sob/del valle, and increased home O2 requirements. DDX - biliary pathology, pancreatitis, ulcerative process, ACS, CHF, PNA. Given active malignancy and respiratory sx there is increased concerned about PE. - CBC, CMP, Lipase, Cardiac, Lactic - BCX - UA, UC - EKG - CXR - RUQ US - CTA - CT A/P 10/06/19 15:43 CXR report and image reviewed - no acute pathology d/w Dr. Grady - given MM and kidney status, she does not want IV contrast studies unless there is a high suspicion of PE. States she is aware of the respiratory sx but states is not acute. d/w ED team - D-dimer, CT noncon C/A/P. If D-dimer elevated then V/Q 10/06/19 16:15 labs reviewed flu negative UA neg BNP elevated 10/06/19 17:05 RUQ US IMPRESSION: No sonographic evidence of cholelithiasis or acute cholecystitis is seen. There is no definite biliary tract dilatation. f/u CT C/A/P 10/06/19 19:05 CT A/P IMPRESSION: no definite CT findings of acute pathology are noted. Osseous findings are again seen consistent with known multiple myeloma. CT CHEST IMPRESSION: No discrete infiltrate is identified. In comparison to a 2018 CT exam note is again made of centrilobular emphysema which is at least moderate. Also as the prior exam chronic subpleural interstitial changes are seen within the bibasilar regions and lingula may be on the basis of superimposed interstitial lung disease. Interval development of multilevel thoracic vertebral body compression fractures is noted as well as development of numerous punctate lucencies throughout the visualized osseous structures consistent with known multiple myeloma. admit for CHF exacerbation f/u D-dimer 10/06/19 19:07 signed out to PM team Discharge - Discharge Information Problems reviewed: Yes Clinical Impression/Diagnosis: Cough, Shortness of breath Abdominal pain Qualifiers: Abdominal location: right lower quadrant Qualified Code(s): R10.31 - Right lower quadrant pain Back pain Qualifiers: Back pain location: low back pain Chronicity: chronic Back pain laterality: unspecified Sciatica presence: unspecified whether sciatica present Qualified Code(s): M54.5 - Low back pain; G89.29 - Other chronic pain Condition: Improved Disposition: HOME - Follow up/Referral Referrals: Dl Gallegos MD [Primary Care Provider] - - Patient Discharge Instructions - Post Discharge Activity
[2019-10-06 14:59] LABS: EPI CELLS 0.2 /HPF (0-5/HPF); HYALINE CASTS 0 /lpf (0-8); PH,URINE 6.5 (5.0-8.0); URINE APPEARANCE CLEAR; URINE BACTERIA 1.2 /hpf (NEGATIVE); URINE BILIRUBIN NEGATIVE (NEGATIVE); URINE COLOR YELLOW; URINE GLUCOSE (UA) NEGATIVE (NEGATIVE); URINE KETONE NEGATIVE (NEGATIVE); URINE LEUK ESTERASE NEGATIVE (NEGATIVE); URINE NITRITE NEGATIVE (NEGATIVE); URINE PROTEIN 3+ (NEGATIVE); URINE RBC 1 /hpf (0-4); URINE UROBILINOGEN 0.2 mg/dL (0.2-1.0); URINE WBC 0 /hpf (0-5)
[2019-10-06 15:01] LABS: BASO % 0.3 % (0-2.0); EOS % 2.3 % (0-4.5); HEMATOCRIT 35.4 % (35.4-49); HEMOGLOBIN 11.8 GM/dL (11.7-16.9); LYMPH % 18.9 % (8-40); MCH 28.9 pg (25.7-33.7); MCHC 33.3 g/dl (32.0-35.9); MEAN CELL VOLUME 86.8 fl (80-96); MEAN PLT VOLUME 7.1 fl (7.5-11.1); MONO % 8.1 % (3.8-10.2); NEUT % 70.4 % (42.8-82.8); PLATELET COUNT 157 K/MM3 (134-434); RBC 4.08 M/mm3 (4.00-5.60); RDW 15.2 % (11.9-15.9); WHITE BLOOD COUNT 6.1 K/mm3 (4.0-10.0)
[2019-10-06 15:17] LABS: BILIRUBIN,TOTAL 0.3 mg/dL (0.2-1); CALCIUM 8.7 mg/dL (8.5-10.1); CREATININE 1.5 mg/dL (0.55-1.3); POTASSIUM 4.5 mmol/L (3.5-5.1)
--- NOTE | 2019-10-06 15:19 | PDOC ---
Documentation entered by José Miguel Chavez SCRIBE, acting as scribe for Victoriano Aly MD. Victroiano Aly MD: This documentation has been prepared by the [place] Daniel, SCRIBE, under my direction and personally reviewed by me in its entirety. I confirm that the documentation accurately reflects all work, treatment, procedures, and medical decision making performed by me. Attending Attestation - Resident Resident Name: AgapitoJabier - ED Attending Attestation I have performed the following: I have examined & evaluated the patient, The case was reviewed & discussed with the resident, I agree w/resident's findings & plan, Exceptions are as noted - HPI HPI: 10/06/19 14:50 The patient is a 63 year old male with a past medical history of multiple myeloma (on chemo), diabetes, CKD, HCV s/p treatment, HTN, asthma, and COPD (3L home O2) sent in today for evaluation of burning right upper quadrant pain. Patient reports that he has one week of burning right upper quadrant pain that radiates to his shoulder and notes associated intermittent nausea, nonproductive cough, sore throat, rhinorrhea, dyspnea, and dyspnea on exertion. He does not note any worsening pain with eating but states it is sometimes worse with deep inspiration. Patient denies headache, lightheadedness. Denies fever, chills. Denies chest pain. Denies vomiting, diarrhea. Allergies: NKA PCP: Dl Gallegos Oncologist: Ysabel López - Physicial Exam PE: 10/06/19 14:50 GENERAL: Awake, alert, and fully oriented, in no acute distress. HEAD: No signs of trauma EYES: PERRLA, EOMI, sclera anicteric, conjunctiva clear ENT: Auricles normal inspection, hearing grossly normal, nares patent, oropharynx clear without exudates. Moist mucosa NECK: Nontender, no stepoffs, Normal ROM, supple, no lymphadenopathy, JVD, or masses LUNGS: Breath sounds equal, clear to auscultation bilaterally. No wheezes, and no crackles HEART: Regular rate and rhythm, normal S1 and S2, no murmurs, rubs or gallops ABDOMEN: + RUQ TTP, normoactive bowel sounds. No guarding, no rebound. No masses EXTREMITIES: Normal range of motion, no edema. No clubbing or cyanosis. No cords, erythema, or tenderness NEUROLOGICAL: Cranial nerves II through XII intact. 5/5 strength and sensation in all extremities, Normal speech, normal gait, normal cerebellar function SKIN: Warm, Dry, normal turgor, no rashes or lesions noted. - Medical Decision Making 10/06/19 15:21 63 M with RUQ pain that is worse with deep inspiration. Will evaluate for biliary colic. Also consider PE given pleuritic nature of pain, SOB, and h/o malignancy. - Labs - CTA chest - RUQ US 10/06/19 15:[address] Grady, who recommends avoiding IV contrast if possible given h/o MM and renal insufficiency. Will send ddimer instead to r/o PE Pt signed out to oncoming attending, Dr. Calvillo, at 4:30PM, pending labs, CT, and admission to hospital
[2019-10-06] MEDS ORDERED: SODIUM CHLORIDE 0.9% 500 ML INFUS.BAG IV ONE (15:28)
[2019-10-06 15:39] LABS: N-TERMINAL BNP 6558.8 pg/ml (5-125)
[2019-10-06 15:54] VITALS: TEMP 98.5
[2019-10-06] MEDS ORDERED: traMADol HCL 50 MG TABLET PO ONE (18:38)
[2019-10-06] MEDS ORDERED: traMADol HCL 50 MG TABLET ONE (18:50)
--- NOTE | 2019-10-06 19:43 | HP ---
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: Peripheral Neuropathy (stocking glove distribution related to DM) Cardiovascular: Yes: CHF, HTN, Hyperlipdemia, VT Pulmonary: Yes: Asthma, COPD, O2 Dependent, Other (left chest tube for rib fracture related pneumothorax afte a fall) Gastrointestinal: Yes: Constipation, Other Hepatobiliary: Yes: Hepatitis C (cured several years ago with Dr Bedolla) Renal/: Yes: Renal Inusuff Heme/Onc: Yes: Cancer (Multiple myeloma -received a course of RT and Velban/ cytoxan/dexamathasone), Current Chemotherapy Infectious Disease: Yes: Other (Hepatitis C cured) Psych: Yes: Depression Musculoskeletal: Yes: Chronic low back pain (multiple thoracolumbar vertebral pathological fractures), Other (multiple thoracolumbar vertebral fractures) Endocrine: Yes: Diabetes Mellitus Dermatology: Yes: Other (varicose veins) - Past Surgical History Past Surgical History: Yes: Amputation (5th digit R foot), Tonsillectomy - Smoking History Smoking history: Former smoker Have you smoked in the past 12 months: No If you are a former smoker, when did you quit?: 1996 - Alcohol/Substance Use Hx Alcohol Use: No History of Substance Use: reports: Cocaine, Heroin - Social History ADL: Independent 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 History of Recent Travel: Yes (to [place] a few months ago) Home Medications - Allergies Allergies/Adverse Reactions: Allergies Allergy/AdvReac Type Severity Reaction Status Date / Time No Known Allergies Allergy Verified 10/06/19 12:34 - Home Medications Home Medications: Ambulatory Orders Acetaminophen [Tylenol .Regular Strength -] 650 mg PO Q6H PRN #0 tablet Buspirone HCl 15 mg PO BID 07/22/18 Ammonium Lactate Lotion [Lac-Hydrin 12] 1 applic TP BID PRN bottle 12/21/18 Aspirin [ASA -] 81 mg PO DAILY tab.chew 12/21/18 Atorvastatin Ca [Lipitor] 80 mg PO HS tablet 12/21/18 Insulin Sliding Scale [Novolog Vial Sliding Scale -] 1 vial SQ TIDAC units Pantoprazole Suspension [Protonix Packets For Oral Suspension -] 40 mg PO DAILY packet 12/21/18 Furosemide [Lasix -] 40 mg PO BID@0600,1400 #60 tablet MDD 2 01/12/19 Insulin (Levemir) [Levemir Vial] 10 units SQ DAILY@0700 #100 units 01/12/19 Metoprolol Tartrate [Lopressor -] 50 mg PO BID #30 tablet MDD 2 01/12/19 Sertraline HCl [Zoloft -] 50 mg PO DAILY #30 tablet MDD 1 01/12/19 Folic Acid 1 mg PO DAILY #30 tablet 01/16/19 Insulin Glargine,Hum.rec.anlog [Basaglar Kwikpen U-100] 15 units SQ ASDIR Methadone HCl 30 mg PO DAILY MDD 2 03/29/19 Tiotropium [place] [Spiriva Respimat] 1 puff IH BID 03/29/19 Allopurinol 300 mg PO DAILY 05/24/19 Calcium 500Mg/Vit-D 200 Units [Os-Kyler 500+D -] 1 tab PO BID 05/24/19 Revlimid 10 mg PO DAILY 05/24/19 Physical Examination Vital Signs: Vital Signs Temperature 98.5 F 10/06/19 15:52 Pulse Rate 74 10/06/19 15:52 Respiratory Rate 19 10/06/19 15:52 Blood Pressure 188/57 H 10/06/19 15:52 O2 Sat by Pulse Oximetry (%) 99 10/06/19 15:52 Labs: CBC, BMP 10/06/19 14:35 10/06/19 14:35
--- NOTE | 2019-10-06 20:03 | PDOC ---
*Physical Exam - Vital Signs Last Vital Signs Temp Pulse Resp BP Pulse Ox 98.5 F 74 19 188/57 H 99 10/06/19 15:52 10/06/19 15:52 10/06/19 15:52 10/06/19 15:52 10/06/19 15:52 ED Treatment Course - LABORATORY CBC & Chemistry Diagram: 10/06/19 14:35 10/06/19 14:35 - ADDITIONAL ORDERS Additional order review: Laboratory Results 10/06/19 10/06/19 10/06/19 18:40 14:35 14:35 D-Dimer 751 H Sodium Potassium Chloride Carbon Dioxide Anion Gap BUN Creatinine Est GFR (CKD-EPI)AfAm Est GFR (CKD-EPI)NonAf Random Glucose Lactic Acid 0.9 Calcium Total Bilirubin AST ALT Alkaline Phosphatase Creatine Kinase Troponin I B-Natriuretic Peptide Total Protein Albumin Lipase Urine Color Yellow Urine Appearance Clear Urine pH 6.5 Ur Specific [place] 1.009 L Urine Protein 3+ H Urine Glucose (UA) Negative Urine Ketones Negative Urine Blood Negative Urine Nitrite Negative Urine Bilirubin Negative Urine Urobilinogen 0.2 Ur Leukocyte Esterase Negative Urine WBC (Auto) 0 Urine RBC (Auto) 1 Urine Casts (Auto) 0 U Epithel Cells (Auto) 0.2 Urine Bacteria (Auto) 1.2 10/06/19 10/06/19 10/06/19 14:35 14:35 14:35 D-Dimer Sodium 135 L Potassium 4.5 Chloride 103 Carbon Dioxide 27 Anion Gap 5 L BUN 31.0 H Creatinine 1.5 H Est GFR (CKD-EPI)AfAm 55.82 Est GFR (CKD-EPI)NonAf 48.16 Random Glucose 105 Lactic Acid Calcium 8.7 Total Bilirubin 0.3 AST 14 L ALT 18 Alkaline Phosphatase 75 Creatine Kinase 34 Troponin I < 0.02 B-Natriuretic Peptide 6558.8 H Total Protein 6.0 L Albumin 3.0 L Lipase 139 Urine Color Urine Appearance Urine pH Ur Specific Morris Urine Protein Urine Glucose (UA) Urine Ketones Urine Blood Urine Nitrite Urine Bilirubin Urine Urobilinogen Ur Leukocyte Esterase Urine WBC (Auto) Urine RBC (Auto) Urine Casts (Auto) U Epithel Cells (Auto) Urine Bacteria (Auto) 10/06/19 14:35 RBC 4.08 MCV 86.8 MCHC 33.3 RDW 15.2 MPV 7.1 L Neutrophils % 70.4 Lymphocytes % 18.9 Monocytes % 8.1 Eosinophils % 2.3 Basophils % 0.3 - Medications Given in the ED: ED Medications Discontinued Medications Generic Name Dose Route Start Last Admin Trade Name Imani PRN Reason Stop Dose Admin Sodium Chloride 1,000 ml 10/06/19 15:28 10/06/19 15:34 Normal Saline - IV 10/06/19 15:29 1,000 ml ONCE ONE Administration Tramadol HCl 50 mg 10/06/19 18:38 10/06/19 18:52 Ultram - PO 10/06/19 18:39 50 mg ONCE ONE Administration Medical Decision Making - Medical Decision Making 10/06/19 19:57 Received sign out from Dr Altman - pt signed out on phone for admission. Spoke with Dr Grady - stated she spoke with pt and pt's SOB is chronic, not acute, would like to d/c. Attending Dr Calvillo discussed pt and results including D-dimer with Dr Grady and she still wanted d/c. D-dimer possibly elevated 2/2 chronic conditions - will reassess pt. Reassessed pt at bedside with Dr Calivllo. Pt states that he had worsening SOB and BHATTI yesterday and the day prior, but he was congested and felt like that was what was causing the SOB. Pt took theraflu and other OTC medications, congestion improved, and SOB improved. Today pt's breathing returned to baseline on baseline O2, no worsening SOB or orthopnea or BHATTI. Pt states he had back pain today, improved with medications, and now that he knows it's his chronic problems, he feels better. Denies complaints at this time. Pt spoke with Dr Grady on phone and has appointment on Wednesday. Pt states he feels much better, wants to go home and will go to his scheduled appointment on Wednesday. Will dc home with Dr Grady f/u. Return precautions given. Pt understands all dc instructions and all questions were answered. Discharge - Discharge Information Problems reviewed: Yes Clinical Impression/Diagnosis: Abdominal pain, Cough, Back pain, Shortness of breath Condition: Improved Disposition: HOME - Admission No - Follow up/Referral - Patient Discharge Instructions - Post Discharge Activity
[2019-10-06 20:43] VITALS: BP 146/78; PULSE 88
--- NOTE | 2019-10-07 23:21 | EKG ---
Test Reason : Blood Pressure : / mmHG Vent. Rate : 069 BPM Atrial Rate : 069 BPM P-R Int : 138 ms QRS Dur : 070 ms QT Int : 422 ms P-R-T Axes : 064 013 071 degrees QTc Int : 452 ms NORMAL SINUS RHYTHM WHEN COMPARED WITH ECG OF 13-JAN-2019 09:35, T WAVE VARIATION Confirmed by KRANTHI DE LA CRUZ MD ([id number]) on 10/07/2019 11:21:09 PM Referred By: Confirmed By:KRANTHI DE LA CRUZ MD
== END 2019-10-06 20:45 | disposition home or self-care (01) ==
LOC: JER 12:20 → UNDOADMIN 19:03 → JERBED 19:03
PROC: 3E0337Z Introduction of Electrolytic and Water Balance Substance into Peripheral Vein, Percutaneous Approach (ICD-10-PCS; principal; 2019-10-06)
DX: R10.31 Right lower quadrant pain (principal); C90.00 Multiple myeloma not having achieved remission; Z87.891 Personal history of nicotine dependence; G89.29 Other chronic pain; J45.909 Unspecified asthma, uncomplicated; B19.20 Unspecified viral hepatitis C without hepatic coma; Z79.899 Other long term (current) drug therapy; N18.9 Chronic kidney disease, unspecified; I24.9 Acute ischemic heart disease, unspecified; F19.10 Other psychoactive substance abuse, uncomplicated; E11.22 Type 2 diabetes mellitus with diabetic chronic kidney disease; I13.10 Hypertensive heart and chronic kidney disease without heart failure, with stage 1 through stage 4 chronic kidney disease, or unspecified chronic kidney disease
CPT/HCPCS: 36415; 71045-TC-FY; 71250-TC; 74176-TC; 76705-TC; 80053; 81003; 82550; 83605; 83690; 83880; 84484; 85025; 85379; 87040; 87086; 87804; 93005; 93010; 99283-25

== ENCOUNTER → 2019-10-06 | Day surgery (SDC) | payer OTHER ==
[2019-10-06 11:35] LABS: BASO % 0.3 % (0-2.0); EOS % 2.9 % (0-4.5); HEMOGLOBIN 12.2 GM/dL (11.7-16.9); LYMPH % 17.7 % (8-40); MCH 28.6 pg (25.7-33.7); MEAN CELL VOLUME 86.7 fl (80-96); MEAN PLT VOLUME 6.8 fl (7.5-11.1); MONO % 7.2 % (3.8-10.2); NEUT % 71.9 % (42.8-82.8); PLATELET COUNT 154 K/MM3 (134-434); RBC 4.27 M/mm3 (4.00-5.60); RDW 15.2 % (11.9-15.9); WHITE BLOOD COUNT 5.9 K/mm3 (4.0-10.0)
[2019-10-06 12:05] LABS: ALBUMIN 3.1 g/dl (3.4-5.0); BILIRUBIN,TOTAL 0.2 mg/dL (0.2-1); BLOOD UREA NITROGEN 29.8 mg/dL (7-18); CALCIUM 8.6 mg/dL (8.5-10.1); CREATININE 1.4 mg/dL (0.55-1.3); MAGNESIUM 1.7 mg/dL (1.8-2.4); POTASSIUM 4.5 mmol/L (3.5-5.1)
== END | disposition home or self-care (01) ==
LOC: JONCCHEMO 06:05
PROVIDERS: ATTEND Internal Medicine Hematology & Oncology
DX: Z53.8 Procedure and treatment not carried out for other reasons (principal)
CPT/HCPCS: 36415; 71045-TC-FY; 71250-TC; 74176-TC; 76705-TC; 80053; 81003; 82550; 83605; 83690; 83735; 83880; 84484; 85025; 85379; 87040; 87086; 87804; 93005; 93010; 96365; 99283-25

== ENCOUNTER 2019-10-13 05:39 | Day surgery (SDC) | payer OTHER ==
[2019-10-13] MEDS ORDERED: DEXAMETHASONE SODIUM PHOSPHATE 20 MG, DIPHENHYDRAMINE 50 MG, RANITIDINE INJECTION 50 MG... IVPB ONE (10:00)
[2019-10-13] MEDS ORDERED: MONTELUKAST NA 10 MG TABLET PO ONE ×2 (10:00→15:30)
[2019-10-13] MEDS ORDERED: ACETAMINOPHEN 325 MG TABLET (FP) PO ONE ×2 (10:00→15:30)
[2019-10-13] MEDS ORDERED: SODIUM CHLORIDE IVPB ONE (10:30)
[2019-10-13] MEDS ORDERED: DARATUMUMAB IVPB ONE (10:30)
[2019-10-13 11:48] LABS: BASO % 0.2 % (0-2.0); EOS % 2.1 % (0-4.5); HEMATOCRIT 38.2 % (35.4-49); HEMOGLOBIN 12.6 GM/dL (11.7-16.9); LYMPH % 20.4 % (8-40); MCH 28.7 pg (25.7-33.7); MCHC 32.9 g/dl (32.0-35.9); MEAN CELL VOLUME 87.3 fl (80-96); MEAN PLT VOLUME 7.4 fl (7.5-11.1); NEUT % 72.3 % (42.8-82.8); PLATELET COUNT 162 K/MM3 (134-434); RBC 4.37 M/mm3 (4.00-5.60); RDW 14.8 % (11.9-15.9); WHITE BLOOD COUNT 6.1 K/mm3 (4.0-10.0)
[2019-10-13 12:12] LABS: BILIRUBIN,TOTAL 0.2 mg/dL (0.2-1); BLOOD UREA NITROGEN 35.6 mg/dL (7-18); CALCIUM 8.1 mg/dL (8.5-10.1); CREATININE 1.6 mg/dL (0.55-1.3); POTASSIUM 4.7 mmol/L (3.5-5.1); TOT PROT 6.1 g/dl (6.4-8.2)
[2019-10-13] MEDS ORDERED: DEXAMETHASONE 4 MG TABLET (FP) PO ONE (13:00)
[2019-10-13 18:23] VITALS: TEMP 97.4
[2019-10-13 19:11] VITALS: BP 192/83; PULSE 78
== END 2019-10-13 19:23 | disposition home or self-care (01) ==
LOC: JONCCHEMO 05:39 → J7W 13:29 → JONCCHEMO 19:23
PROVIDERS: ATTEND Internal Medicine Hematology & Oncology
DX: Z51.11 Encounter for antineoplastic chemotherapy (principal); C90.00 Multiple myeloma not having achieved remission; I10 Essential (primary) hypertension; E11.9 Type 2 diabetes mellitus without complications; B19.20 Unspecified viral hepatitis C without hepatic coma
CPT/HCPCS: 36415; 80053; 83735; 85025; 87517; 96367; 96413; 96415; J9145

== ENCOUNTER 2019-10-27 07:06 | Day surgery (SDC) | payer OTHER ==
[2019-10-27] MEDS ORDERED: MONTELUKAST NA 10 MG TABLET PO ONE (09:30)
[2019-10-27] MEDS ORDERED: ACETAMINOPHEN 325 MG TABLET (FP) PO ONE (09:30)
[2019-10-27] MEDS ORDERED: DEXAMETHASONE SODIUM PHOSPHATE 20 MG, DIPHENHYDRAMINE 50 MG, RANITIDINE INJECTION 50 MG... IVPB ONE (09:30)
[2019-10-27] MEDS ORDERED: SODIUM CHLORIDE IVPB ONE (10:00)
[2019-10-27] MEDS ORDERED: DARATUMUMAB IVPB ONE (10:00)
[2019-10-27 11:22] LABS: BASO % 0.4 % (0-2.0); EOS % 2.5 % (0-4.5); HEMATOCRIT 37.6 % (35.4-49); HEMOGLOBIN 12.4 GM/dL (11.7-16.9); LYMPH % 21.1 % (8-40); MCH 28.7 pg (25.7-33.7); MEAN PLT VOLUME 7.8 fl (7.5-11.1); MONO % 5.6 % (3.8-10.2); NEUT % 70.4 % (42.8-82.8); PLATELET COUNT 180 K/MM3 (134-434); RBC 4.32 M/mm3 (4.00-5.60); RDW 14.8 % (11.9-15.9); WHITE BLOOD COUNT 6.3 K/mm3 (4.0-10.0)
[2019-10-27 11:47] LABS: ALBUMIN 3.1 g/dl (3.4-5.0); BILIRUBIN,TOTAL 0.1 mg/dL (0.2-1); BLOOD UREA NITROGEN 30.5 mg/dL (7-18); CALCIUM 7.8 mg/dL (8.5-10.1); CREATININE 1.7 mg/dL (0.55-1.3); POTASSIUM 4.4 mmol/L (3.5-5.1)
[2019-10-27] MEDS: DEXAMETHASONE 4 MG TABLET (FP) PO ONE ×2 (12:45→14:00)
[2019-10-27 15:24] VITALS: TEMP 98.7
[2019-10-27 17:18] VITALS: BP 193/95; PULSE 40
[2019-10-28 17:07] LABS: FREE KAPPA,SERUM 130.3 mg/L (3.3-19.4)
== END 2019-10-27 16:50 | disposition home or self-care (01) ==
LOC: JONCCHEMO 07:06 → J7W 11:48 → EDSTATUS 15:23 → JONCCHEMO 16:50
PROVIDERS: ATTEND Internal Medicine Hematology & Oncology
DX: Z51.11 Encounter for antineoplastic chemotherapy (principal); C90.00 Multiple myeloma not having achieved remission; B19.20 Unspecified viral hepatitis C without hepatic coma; E11.9 Type 2 diabetes mellitus without complications
CPT/HCPCS: 36415; 80053; 83883; 85025; 96367; 96413; 96415; J9145

== ENCOUNTER 2019-11-10 05:43 | Day surgery (SDC) | payer OTHER ==
[~2019-11-10 05:43] MED LIST changes: +ACETAMINOPHEN 325 MG TABLET (FP) PO ONE; +DARATUMUMAB IVPB ONE; +DENOSUMAB 120 MG/1.7 ML VIAL SQ ONE; +DEXAMETHASONE 4 MG TABLET (FP) PO ONE; +DEXAMETHASONE SODIUM PHOSPHATE 20 MG, DIPHENHYDRAMINE 50 MG, RANITIDINE INJECTION 50 MG... IVPB ONE; +MONTELUKAST NA 10 MG TABLET PO ONE; +SODIUM CHLORIDE IVPB ONE; -ZOLEDRONIC ACID 3 MG in SODIUM CHLORIDE 100 ML IVPB ONE
[2019-11-10 11:07] LABS: BASO % 0.3 % (0-2.0); EOS % 1.8 % (0-4.5); HEMATOCRIT 37.9 % (35.4-49); HEMOGLOBIN 12.6 GM/dL (11.7-16.9); MCH 29.1 pg (25.7-33.7); MCHC 33.2 g/dl (32.0-35.9); MEAN CELL VOLUME 87.6 fl (80-96); MEAN PLT VOLUME 7.8 fl (7.5-11.1); MONO % 5.3 % (3.8-10.2); NEUT % 73.6 % (42.8-82.8); PLATELET COUNT 180 K/MM3 (134-434); RBC 4.33 M/mm3 (4.00-5.60); RDW 14.8 % (11.9-15.9); WHITE BLOOD COUNT 6.6 K/mm3 (4.0-10.0)
[2019-11-10 11:34] LABS: ALBUMIN 2.9 g/dl (3.4-5.0); BILIRUBIN,TOTAL 0.3 mg/dL (0.2-1); BLOOD UREA NITROGEN 35.9 mg/dL (7-18); CREATININE 1.6 mg/dL (0.55-1.3); POTASSIUM 4.5 mmol/L (3.5-5.1); TOT PROT 6.1 g/dl (6.4-8.2)
[2019-11-10] MEDS ORDERED: DARATUMUMAB IVPB ONE (12:15)
[2019-11-10] MEDS ORDERED: DENOSUMAB 120 MG/1.7 ML VIAL SQ ONE (12:15)
[2019-11-10] MEDS ORDERED: SODIUM CHLORIDE IVPB ONE (12:15)
[2019-11-10] MEDS ORDERED: ACETAMINOPHEN 325 MG TABLET (FP) PO ONE (12:30)
[2019-11-10] MEDS ORDERED: MONTELUKAST NA 10 MG TABLET PO ONE (12:30)
[2019-11-10] MEDS ORDERED: DEXAMETHASONE 4 MG TABLET (FP) PO ONE (12:45)
[2019-11-10] MEDS ORDERED: DEXAMETHASONE SODIUM PHOSPHATE 20 MG, DIPHENHYDRAMINE 50 MG, RANITIDINE INJECTION 50 MG... IVPB ONE (12:45)
[2019-11-10 14:03] VITALS: TEMP 97.5
[2019-11-10 16:45] VITALS: BP 161/94; PULSE 71
[2019-11-11 18:20] LABS: FREE KAPPA,SERUM 188.5 mg/L (3.3-19.4)
== END 2019-11-10 18:24 | disposition home or self-care (01) ==
LOC: JONCCHEMO 05:43 → J7W 11:35 → JONCCHEMO 18:24
PROVIDERS: ATTEND Internal Medicine Hematology & Oncology
DX: Z51.11 Encounter for antineoplastic chemotherapy (principal); C90.00 Multiple myeloma not having achieved remission; B19.20 Unspecified viral hepatitis C without hepatic coma; E11.9 Type 2 diabetes mellitus without complications
CPT/HCPCS: 36415; 80053; 83883; 85025; 96365; J0897; J9145

== ENCOUNTER 2019-11-24 07:02 | Day surgery (SDC) | payer OTHER ==
[~2019-11-24 07:02] MED LIST changes: -ACETAMINOPHEN 325 MG TABLET (FP) PO ONE; -DARATUMUMAB IVPB ONE; -DENOSUMAB 120 MG/1.7 ML VIAL SQ ONE; -DEXAMETHASONE SODIUM PHOSPHATE 20 MG, DIPHENHYDRAMINE 50 MG, RANITIDINE INJECTION 50 MG... IVPB ONE; -MONTELUKAST NA 10 MG TABLET PO ONE; -SODIUM CHLORIDE IVPB ONE
[2019-11-24] MEDS ORDERED: MONTELUKAST NA 10 MG TABLET PO ONE (10:00)
[2019-11-24] MEDS ORDERED: [UNRECOGNIZED DRUG - OTHER] IVPB ONE (10:00)
[2019-11-24] MEDS ORDERED: RANITIDINE IVPB ONE (10:00)
[2019-11-24] MEDS ORDERED: ACETAMINOPHEN 325 MG TABLET (FP) PO ONE (10:00)
[2019-11-24] MEDS ORDERED: DEXAMETHASONE SODIUM PHOSPHATE IVPB ONE (10:00)
[2019-11-24] MEDS ORDERED: SODIUM CHLORIDE IVPB ONE (10:30)
[2019-11-24] MEDS ORDERED: DARATUMUMAB IVPB ONE (10:30)
[2019-11-24 11:23] LABS: BASO % 0.3 % (0-2.0); EOS % 1.8 % (0-4.5); HEMATOCRIT 40.4 % (35.4-49); HEMOGLOBIN 13.4 GM/dL (11.7-16.9); LYMPH % 19.1 % (8-40); MCHC 33.3 g/dl (32.0-35.9); MEAN CELL VOLUME 87.2 fl (80-96); MEAN PLT VOLUME 7.8 fl (7.5-11.1); MONO % 4.6 % (3.8-10.2); NEUT % 74.2 % (42.8-82.8); PLATELET COUNT 192 K/MM3 (134-434); RBC 4.63 M/mm3 (4.00-5.60); RDW 14.9 % (11.9-15.9)
[2019-11-24 11:52] LABS: BILIRUBIN,TOTAL 0.3 mg/dL (0.2-1); BLOOD UREA NITROGEN 33.1 mg/dL (7-18); CALCIUM 8.5 mg/dL (8.5-10.1); CREATININE 1.7 mg/dL (0.55-1.3); MAGNESIUM 1.7 mg/dL (1.8-2.4); POTASSIUM 4.9 mmol/L (3.5-5.1); TOT PROT 6.5 g/dl (6.4-8.2)
[2019-11-24] MEDS ORDERED: DEXAMETHASONE 4 MG TABLET (FP) PO ONE (13:00)
[2019-11-24] MEDS ORDERED: traMADol HCL 50 MG TABLET PO ONE (13:00)
[2019-11-24] MEDS ORDERED: amLODIPine BESYLATE 5 MG TABLET (FP) PO ONE (13:00)
[2019-11-24 15:28] VITALS: TEMP 97.7
[2019-11-24 15:33] VITALS: BP 142/66; PULSE 73
== END 2019-11-24 16:23 | disposition home or self-care (01) ==
LOC: JONCCHEMO 07:02 → J7W 12:40 → JONCCHEMO 16:23
PROVIDERS: ATTEND Internal Medicine Hematology & Oncology
DX: Z51.11 Encounter for antineoplastic chemotherapy (principal); C90.00 Multiple myeloma not having achieved remission; B19.20 Unspecified viral hepatitis C without hepatic coma; E11.9 Type 2 diabetes mellitus without complications
CPT/HCPCS: 36415; 80053; 83735; 85025; 96367; 96413; 96415; J9145

== ENCOUNTER 2019-12-08 05:34 | Day surgery (SDC) | payer OTHER ==
[2019-12-08 09:44] LABS: BASO % 0.3 % (0-2.0); EOS % 2.2 % (0-4.5); HEMATOCRIT 36.5 % (35.4-49); HEMOGLOBIN 12.3 GM/dL (11.7-16.9); LYMPH % 21.7 % (8-40); MCH 29.2 pg (25.7-33.7); MCHC 33.8 g/dl (32.0-35.9); MEAN CELL VOLUME 86.3 fl (80-96); MEAN PLT VOLUME 7.1 fl (7.5-11.1); MONO % 5.9 % (3.8-10.2); NEUT % 69.9 % (42.8-82.8); PLATELET COUNT 177 K/MM3 (134-434); RBC 4.23 M/mm3 (4.00-5.60); RDW 15.1 % (11.9-15.9); WHITE BLOOD COUNT 6.5 K/mm3 (4.0-10.0)
[2019-12-08] MEDS ORDERED: DEXAMETHASONE SODIUM PHOSPHATE 20 MG, DIPHENHYDRAMINE 50 MG, RANITIDINE INJECTION 50 MG... IVPB ONE (10:00)
[2019-12-08] MEDS ORDERED: ACETAMINOPHEN 325 MG TABLET (FP) PO ONE (10:00)
[2019-12-08] MEDS ORDERED: MONTELUKAST NA 10 MG TABLET PO ONE (10:00)
[2019-12-08 10:15] LABS: ALBUMIN 3.1 g/dl (3.4-5.0); BILIRUBIN,TOTAL 0.2 mg/dL (0.2-1); BLOOD UREA NITROGEN 36.3 mg/dL (7-18); CALCIUM 8.1 mg/dL (8.5-10.1); CREATININE 1.7 mg/dL (0.55-1.3); POTASSIUM 4.6 mmol/L (3.5-5.1); TOT PROT 6.4 g/dl (6.4-8.2)
[2019-12-08] MEDS ORDERED: DARATUMUMAB IVPB ONE (10:30)
[2019-12-08] MEDS ORDERED: DENOSUMAB 120 MG/1.7 ML VIAL SQ ONE (10:30)
[2019-12-08] MEDS ORDERED: SODIUM CHLORIDE IVPB ONE (10:30)
[2019-12-08] MEDS ORDERED: DEXAMETHASONE 4 MG TABLET (FP) PO ONE (12:00)
[2019-12-08 15:38] VITALS: BP 160/90; PULSE 74; TEMP 97.8
== END 2019-12-08 15:30 | disposition home or self-care (01) ==
LOC: JONCCHEMO 05:34 → J7W 10:54 → JONCCHEMO 15:30
PROVIDERS: ATTEND Internal Medicine Hematology & Oncology
PROC: 3E03305 Introduction of Other Antineoplastic into Peripheral Vein, Percutaneous Approach (ICD-10-PCS; principal; 2019-12-08)
PROC: 3E033GC Introduction of Other Therapeutic Substance into Peripheral Vein, Percutaneous Approach (ICD-10-PCS; 2019-12-08)
DX: Z51.11 Encounter for antineoplastic chemotherapy (principal); C90.00 Multiple myeloma not having achieved remission; I10 Essential (primary) hypertension; E11.9 Type 2 diabetes mellitus without complications; J45.909 Unspecified asthma, uncomplicated
CPT/HCPCS: 36415; 80053; 85025; 96367; 96375; 96413; 96415; J0897; J9145